=== PATIENT | male | born 1975 | race Caucasian/White ===

== ENCOUNTER 2020-04-04 13:41 | Emergency (ER) | payer MEDICAID ==
[2020-04-04 19:07] LABS: Basophils % 0.1 % (0-1.3); Lymphocytes % 35.2 % (15.3-44.8); MPV 8.2 fL (7.6-11.3); RBC Red Blood Cell Count 4.81 M/uL (4.33-5.43)
[2020-04-04 19:30] LABS: Protime INR 0.93
[2020-04-04 19:35] LABS: ALT/SGPT 25 U/L (12-78); AST/SGOT 13 U/L (15-37); Albumin 3.4 g/dL (3.4-5.0); Alkaline Phosphatase 110 U/L (45-117); BUN Blood Urea Nitrogen 10 mg/dL (7-18); Bicarbonate 27 mmol/L (21-32); Bilirubin Direct < 0.1 mg/dL (0-0.2); Bilirubin Total 0.2 mg/dL (0.2-1.0); Glucose Level 262 mg/dL (74-106); Magnesium 2.1 mg/dL (1.8-2.4); NT PRO-BNP 9 pg/mL (<125); Potassium 3.7 mmol/L (3.5-5.1); Protein, Total 7.2 g/dL (6.4-8.2); Sodium Level 135 mmol/L (136-145); Troponin (Emerg Dept Use Only) < 0.02 ng/mL (0.0-0.045)
[2020-04-04] MEDS ORDERED: NA CHLORIDE 0.9% 1,000 ML ONE (19:44)
--- NOTE | 2020-04-04 19:56 | RAD REPORT ---
EXAM DESCRIPTION: RAD - Chest Single View - 04/04/2020 7:15 pm CLINICAL HISTORY: syncope, hypertension COMPARISON: None TECHNIQUE: AP portable chest image was obtained 04/04/2020 7:15 pm . FINDINGS: Lung volumes are low. No peripheral mass or consolidation. No significant failure or volum e overload. Minimal interstitial edema or infiltrate could be masked by the exam limitations. Heart and vasculature are normal. No measurable pleural effusion and no pneumothorax. No acute bony abnormality seen. No acute aortic findings suspected. IMPRESSION: No acute focal lung parenchymal process. Low lung volumes accentuate the vasculature and central lung markings potentially masking minimal int erstitial edema or infiltrate.
--- NOTE | 2020-04-04 20:37 | EDPHYS ---
Physician Documentation [facility] Name: Bryn Camargo Age: 44 yrs Sex: Male : 1975 Arrival Date: 04/04/2020 Time: 13:44 Bed 19 Private MD: ED Physician Valentin Aguilera HPI: 04/04 19:32 This 44 yrs old Male presents to ER via EMS with complaints of Near Syncope, jmm High Blood Sugar. 19:32 The patient has experienced syncope. Onset: The symptoms/episode began/occurred 1 jmm month(s) ago. Duration: The patient has had multiple episodes. Associated injury: The patient did not suffer any apparent associated injury. Associated signs and symptoms: Pertinent positives: chest pain. Current symptoms: Currently, the patient is not experiencing any symptoms. The patient has not experienced similar symptoms in the past. Historical: - Allergies: 13:49 No Known Allergies; iw - PSHx: 13:49 Appendectomy; left testicle; iw - Immunization history:: Adult Immunizations unknown. - Social history:: Smoking status: unknown. ROS: 19:32 Constitutional: Negative for fever, chills, and weight loss. jmm 19:32 Cardiovascular: Positive for chest pain. 19:32 Neuro: Positive for syncope. 19:32 All other systems are negative. Exam: 19:32 Constitutional: This is a well developed, well nourished patient who is awake, alert, jmm and in no acute distress. Head/Face: atraumatic. Eyes: EOMI, no conjunctival erythema appreciated ENT: Moist Mucus Membranes Neck: Trachea midline, Supple Chest/axilla: Normal chest wall appearance and motion. Cardiovascular: Regular rate and rhythm. No edema appreciated Respiratory: Normal respirations, no respiratory distress appreciated Abdomen/GI: Non distended, soft Back: Normal ROM Skin: General appearance color normal MS/ Extremity: Moves all extremities, no obvious deformities appreciated, no edema noted to the lower extremities Neuro: Awake and alert, normal gait Psych: Behavior is normal, Mood is normal, Patient is cooperative and pleasant 19:32 ECG was reviewed by the Attending Physician. Vital Signs: 14:00 BP 121 / 72; Pulse 86; Resp 18 S; Temp 97.4(TE); Pulse Ox 99% on R/A; ca1 MDM: 18:46 Patient medically screened. [facility] 20:31 Data reviewed: vital signs, nurses notes. Counseling: I had a detailed discussion with linda the patient and/or guardian regarding: the historical points, exam findings, and any diagnostic results supporting the discharge/admit diagnosis, lab results, radiology results, the need for outpatient follow up, to return to the emergency department if symptoms worsen or persist or if there are any questions or concerns that arise at home. ED course: Patient is alert and non toxic in appearance in the ED. No signs of resp distress. I do not suspect DKA, AMI, PE. [place] syncope negative. Patient advised to follow up with pcp and otherwise given strict return precautions. Patient understood and agrees with the plan of care. . 04/04 14:09 Order name: Glucose; Complete Time: 18:46 [facility] 04/04 14:17 Order name: Glucose, Ancillary Testing; Complete Time: 18:46 [facility] 04/04 18:47 Order name: Basic Metabolic Panel; Complete Time: 19:41 [facility] 04/04 18:47 Order name: CBC with Diff; Complete Time: 19:31 [facility] 04/04 18:47 Order name: LFT's; Complete Time: 19:41 [facility] 04/04 18:47 Order name: Magnesium; Complete Time: 19:41 [facility] 04/04 18:47 Order name: NT PRO-BNP; Complete Time: 19:41 [facility] 04/04 18:47 Order name: PT-INR; Complete Time: 19:31 [facility] 04/04 18:47 Order name: Troponin (emerg Dept Use Only); Complete Time: 19:41 [facility] 04/04 19:21 Order name: D-Dimer [facility] 04/04 19:22 Order name: D-Dimer; Complete Time: 19:43 [facility] 04/04 19:24 Order name: Glucose, Ancillary Testing; Complete Time: 19:31 [facility] 04/04 21:02 Order name: Glucose, Ancillary Testing [facility] 04/04 18:47 Order name: XRAY Chest (1 view); Complete Time: 19:57 [facility] 04/04 18:47 Order name: EKG; Complete Time: 18:48 [facility] 04/04 18:47 Order name: Cardiac monitoring; Complete Time: 19:37 [facility] 04/04 18:47 Order name: EKG - Nurse/Tech; Complete Time: 19:36 [facility] 04/04 18:47 Order name: IV Saline Lock; Complete Time: 19:36 [facility] 04/04 18:47 Order name: Labs collected and sent; Complete Time: 19:36 [facility] 04/04 18:47 Order name: O2 Per Protocol; Complete Time: 19:37 [facility] 04/04 18:47 Order name: O2 Sat Monitoring; Complete Time: 19:37 jmm EC:32 Rate is 85 beats/min. Rhythm is regular. QRS [place] is Normal. GA interval is normal. QRS jmm interval is normal. QT interval is normal. No Q waves. T waves are Normal. No ST changes noted. Reviewed by me. Administered Medications: 19:14 Not Given (Physician Discretion): Insulin Regular Human 10 units IVP once bp 19:25 Drug: NS 0.9% 2000 ml Route: IV; Rate: 1 bolus; Site: left antecubital; ll2 Disposition: 04/05 08:50 Co-signature as Attending Physician, Valentin Aguilera MD. rn Disposition: 04/04/20 20:36 Discharged to Home. Impression: Hyperglycemia, unspecified, Chest pain, unspecified. - Condition is Stable. - Discharge Instructions: Nonspecific Chest Pain, Hyperglycemia. - Medication Reconciliation Form, Thank You Letter, Antibiotic Education, Prescription Opioid Use form. - Follow up: Private Physician; When: 2 - 3 days; Reason: Recheck today's complaints, Continuance of care, Re-evaluation by your physician. Signatures: Dispatcher [employer] EDMS Catalina Conley RN RN dm5 Cirilo Loo PA PA [facility] Alicia Padron, RN Valentin Garcia MD MD rn Peltier, Brian RN Brianna Bender, RN RN ll2 Corrections: (The following items were deleted from the chart) 04/04 21:30 20:36 04/04/2020 20:36 Discharged to Home. Impression: Hyperglycemia, unspecified; dm5 Chest pain, unspecified. Condition is Stable. Forms are Medication Reconciliation Form, Thank You Letter, Antibiotic Education, Prescription Opioid Use. Follow up: Private Physician; When: 2 - 3 days; Reason: Recheck today's complaints, Continuance of care, Re-evaluation by your physician. [facility]
--- NOTE | 2020-04-04 20:37 | ER ---
Nurse's Notes [facility] Name: Bryn Camargo Age: 44 yrs Sex: Male : 1975 Arrival Date: 04/04/2020 Time: 13:44 Bed 19 Private MD: Diagnosis: Hyperglycemia, unspecified;Chest pain, unspecified Presentation: 04/04 13:46 Chief complaint: EMS states: pt has been out of his meds for a month, is diabetic, BS iw was reading "high" , has been having syncopal episodes X 1 month. Coronavirus screen: At this time, the client does not indicate any symptoms associated with coronavirus-19. Ebola Screen: Patient negative for fever greater than or equal to 101.5 degrees Fahrenheit, and additional compatible Ebola Virus Disease symptoms Patient denies exposure to infectious person. Patient denies travel to an Ebola-affected area in the 21 days before illness onset. No symptoms or risks identified at this time. Initial Sepsis Screen: Does the patient meet any 2 criteria? No. Patient's initial sepsis screen is negative. Does the patient have a suspected source of infection? No. Patient's initial sepsis screen is negative. Risk Assessment: Do you want to hurt yourself or someone else? Patient reports no desire to harm self or others. Onset of symptoms was February 2020. 13:46 Method Of Arrival: EMS: [facility] iw 13:46 Acuity: FLETCHER 3 iw Triage Assessment: 18:45 General: Appears in no apparent distress. comfortable, Behavior is calm, cooperative, bp appropriate for age, RECD PT AMBULATORY FROM TRIAGE. Pain: Denies pain. EENT: No deficits noted. Neuro: Reports LIGHT-HEADED. Cardiovascular: No deficits noted. Respiratory: No deficits noted. GI: No signs and/or symptoms were reported involving the gastrointestinal system. : No signs and/or symptoms were reported regarding the genitourinary system. Derm: No deficits noted. Musculoskeletal: No deficits noted. Historical: - Allergies: 13:49 No Known Allergies; iw - PSHx: 13:49 Appendectomy; left testicle; iw - Immunization history:: Adult Immunizations unknown. - Social history:: Smoking status: unknown. Screenin:45 Abuse screen: Denies threats or abuse. Denies injuries from another. Nutritional bp screening: No deficits noted. Tuberculosis screening: No symptoms or risk factors identified. Fall Risk None identified. Assessment: 18:45 General: SEE TRIAGE NOTE. bp 19:22 Reassessment: Patient and/or family updated on plan of care and expected duration. Pain ll2 level reassessed. Patient is alert, oriented x 3, equal unlabored respirations, skin warm/dry/pink. Vital Signs: 14:00 BP 121 / 72; Pulse 86; Resp 18 S; Temp 97.4(TE); Pulse Ox 99% on R/A; ca1 ED Course: 13:44 Patient arrived in ED. iw 13:48 Triage completed. 13:48 Arm band placed on. iw 14:26 Inserted saline lock: 20 gauge in right antecubital area, using aseptic technique. 4 Blood collected. 14:26 Glucose Sent. [facility] 18:44 Cirilo Loo PA is PHCP. [facility] 18:44 Valentin Aguilera MD is Attending Physician. [facility] 18:45 Christ Sosa, GARCIA is Primary Nurse. bp 18:45 Patient has correct armband on for positive identification. Bed in low position. Call bp light in reach. Side rails up X2. 19:16 XRAY Chest (1 view) In Process Unspecified. EDMS 19:36 D-Dimer Sent. ll2 Administered Medications: 19:14 Not Given (Physician Discretion): Insulin Regular Human 10 units IVP once bp 19:25 Drug: NS 0.9% 2000 ml Route: IV; Rate: 1 bolus; Site: left antecubital; ll2 Outcome: 20:[address] ordered [address] . [facility] 21:30 Patient left the ED. dm5 Signatures: Dispatcher [employer] EDMS Catalina Conley, RN RN dmCirilo Velasquez PA PA [facility] Alicia Padron RN RN Christ Sosa, RN RN bp Barbie Maya RN RN [facility] Jakob Kim [facility] Brianna Lagos RN RN ll2
[2020-04-04 21:45] VITALS: BP 121/72; TEMP 97.4; O2SAT 99
== END 2020-04-04 21:30 | disposition home or self-care (01) ==
LOC: ER 13:41
DX: R73.9 Hyperglycemia, unspecified (principal); R07.9 Chest pain, unspecified
CPT/HCPCS: 93005; 85025; 80048; 36415; 83735; 82947 ×4; 85610; 85379; 80076; 84484; 83880; 71045; J7030; 99284

== ENCOUNTER 2020-04-27 19:18 | Observation (INO) | payer MEDICAID ==
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
--- OUTSIDE RECORDS SUMMARY | 2020-04-27 19:21 | XMS REPORT | Clinical Summary ---
:1975 Author Organization [facility] Address [address] [place] [address] Care Team Providers Name Role Phone Asked, No Pcp Primary Care Provider Unavailable Allergies No Known Active Allergies Medications Medication Sig Dispensed Refills Start Date End Date Status LITHIUM ASPARTATE Take by 0 Ac tive ORAL mouth. insulin NPH Inject 12 0 04/13/2016 Active (HumuLIN-N) 100 units under unit/mL injection the skin every morning and inject 6 units every evening, insulin Inject under 0 04/13/2016 Active syringe-needle the skin. U-100 0.5 mL 30 gauge x 5/16" syringe lisinopriL Take 1 tablet 30 tablet 0 05/30/2019 Acti ve (PRINIVIL) 5 mg (5 mg total) tablet by mouth daily. metFORMIN 500 mg. 0 09/20/2019 Active (GLUCOPHAGE) 500 mg tablet glipiZIDE 2.5 mg. 0 09/20/2019 Active (GLUCOTROL) 2.5 MG 24 hr tablet fluphenazine Inject 12.5 0 Disco ntinued decanoate mg into the 0 (PROLIXIN) 25 shoulder, mg/mL injection thigh, or buttocks. lisinopriL 0 10/17/2017 Disconti nued (PRINIVIL) 5 mg 0 (Reo rder) tablet metFORMIN Take 500 mg 0 07/12/2018 Discont inued (GLUCOPHAGE) 500 by mouth. 0 (Re order) mg tablet risperiDONE Take 0.5 mg 0 08/20/2017 Disco ntinued (RisperDAL) 1 MG by mouth. 0 (Re order) tablet risperiDONE Take 1 tablet 30 tablet 0 05/30/2019 Dis continued (RisperDAL) 1 MG (1 mg total) 0 (Reorder) tablet by mouth daily. metFORMIN Take 1 tablet 28 tablet 0 01/01/2020 Disco ntinued (GLUCOPHAGE) 500 (500 mg 0 (Re order) mg tablet total) by mouth 2 (two) times a day with meals for 14 days. risperiDONE Take 0.5 7 tablet 0 01/01/2020 Discont inued (RisperDAL) 1 MG tablets (0.5 0 (Reorder) tablet mg total) by mouth nightly for 14 days. divalproex Take 1 tablet 28 tablet 0 01/01/2020 Expi red (Depakote ER) 500 (500 mg 0 MG 24 hr tablet total) by mouth 2 (two) times a day for 14 days. metFORMIN Take 1 tablet 28 tablet 0 01/15/2020 Expir ed (GLUCOPHAGE) 500 (500 mg 0 mg tablet total) by mouth 2 (two) times a day with meals for 14 days. risperiDONE Take 0.5 7 tablet 0 01/15/2020 Discont inued (RisperDAL) 1 MG tablets (0.5 0 (Reorder) tablet mg total) by mouth nightly for 14 days. risperiDONE Take 1 tablet 7 tablet 0 01/16/2020 Exp ired (RisperDAL) 0.5 MG (0.5 mg 0 tablet total) by mouth nightly for 7 days. haloperidoL Take 1 tablet 28 tablet 0 01/23/2020 Exp ired (HALDOL) 2 MG (2 mg total) 0 tablet by mouth 2 (two) times a day for 14 days. 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 Encounters Date Type Specialty Care Team Description 03/07/2020 Emergency Emergency Medicine Grant Ferraro Hy perglycemia (Primary Dx); Dehydration 03/07/2020 Travel 01/23/2020 Emergency Emergency Medicine Rosariooa, Hyperglyc emia (Primary Dx); Jose A Ott MD Paranoia ([facility]) 01/23/2020 Travel 01/16/2020 Emergency Emergency Medicine Rakel Monk, DO Par anoid schizophrenia ([facility]) (Primary Dx); Auditory halluc ination; History of medi cation noncompliance; Uncontrolled ty pe 2 diabetes mellitus with hyperglycemia (HCC) 01/15/2020 Emergency Emergency Medicine Grant Ferraro Hy perglycemia (Primary Dx); Dehydration 01/15/2020 Travel 01/01/2020 Emergency Emergency Medicine Diogenes Balbuena, Acute h yperglycemia (Primary Dx); Yuniel Correa MD Medication refill; Hallucinations 01/01/2020 Travel 10/10/2019 Travel 10/09/2019 - Emergency Emergency Medicine Eric Heck-Enrique A gitation (Primary Dx); 10/10/2019 MD Torres Essential hyper tension; Type 2 diabetes mellitus with hyperglycemia, unspecified whether terminal makeup operator insulin use (HCC) 06/15/2019 - Emergency Emergency Medicine Arnav Tanner S uicidal ideation (Primary Dx); 06/16/2019 MD Hallucination 05/31/2019 Emergency Emergency Medicine Brannon, Hallucina tions (Primary Jose A Ott MD Dx) 05/29/2019 - Emergency Emergency Medicine Jaren Yoder, Morteza gitation (Primary Dx); 05/30/2019 PROP SETTER Medication refill; Todd Norwoodre suha, unspecified type (HCC) MD Kip after 04/27/2019 Surgical History Surgery Date Site/Laterality Comments ABDOMINAL SURGERY Medical History Medical History Date Comments Schizophrenia (HCC) self reported. Does not see a psychiatrist and cannot list any medications Diabetes mellitus (HCC) Substance abuse (HCC) Depression Suicidal ideation Social History Tobacco Use Types Packs/Day Years Used Date Current Some Day Smoker Cigarettes 2 Smokeless Tobacco: Never Used Tobacco Cessation: Ready to Quit: No Alcohol Use Drinks/Week oz/Week Comments Yes Financial Resource Strain Answer Date Recorded How hard is it for you to pay for the very basics like food, Very hard 03/25/2018 housing, medical care, and heating? Transportation Needs Answer Date Recorded In the past 12 months, has lack of transportation kept you f rom Yes 03/25/2018 medical appointments or from getting medications? In the past 12 months, has lack of transportation kept you f rom Yes 03/25/2018 meetings, work, or getting things needed for daily living? Sex Assigned at Date Recorded Not on file Job Start Date Occupation Industry Not on file Not on file Not on file Last Filed Vital Signs Vital Sign Reading Time Taken Comments Blood Pressure 120/70 03/07/2020 10:30 PM [employer] Pulse 88 03/07/2020 10:30 PM [employer] Temperature 37 C (98.6 F) 03/07/2020 8:33 PM [employer] Respiratory Rate 21 03/07/2020 10:30 PM [employer] Oxygen Saturation 100% 03/07/2020 10:30 PM [employer] Inhaled Oxygen Concentration - - Weight 81.2 kg (179 lb) 03/07/2020 8:33 PM [employer] Height 162.6 cm (5' 4") 03/07/2020 8:33 PM [employer] Body Mass Index 30.73 03/07/2020 8:33 PM [employer] Plan of Treatment Health Maintenance Due Date Last Done Comments DIABETES: RETINAL EYE EXAM 10/04/1985 DIABETIC FOOT EXAM 10/04/1985 URINE MICROALBUMIN 10/04/1985 COVID-19 VACCINE (1 of 2) 1991 INFLUENZA VACCINE 11/08/2019 Procedures Procedure Name Priority Date/Time Associated Comments Diagnosis POC GLUCOSE Routine 03/07/2020 10:29 Results for this PM [employer] procedure are i n the results section. XR CHEST 1 VW PORTABLE STAT 03/07/2020 9:15 R esults for this PM [employer] procedure are i n the results section. ESTIMATED GFR STAT 03/07/2020 8:40 Results fo r this PM [employer] procedure are i n the results section. CREATINE KINASE, TOTAL STAT 03/07/2020 8:40 R esults for this (CPK) PM [employer] procedure are i n the results section. B NATRIURETIC PEPTIDE STAT 03/07/2020 8:40 Re sults for this PM [employer] procedure are i n the results section. TROPONIN STAT 03/07/2020 8:40 Results for this PM [employer] procedure are i n the results section. D-DIMER STAT 03/07/2020 8:40 Results for this PM [employer] procedure are i n the results section. COMPREHENSIVE METABOLIC STAT 03/07/2020 8:40 Results for this PANEL PM [employer] procedure are i n the results section. HC COMPLETE BLD COUNT STAT 03/07/2020 8:40 Re sults for this W/AUTO DIFF PM [employer] procedure are i n the results section. ECG 12-LEAD STAT 03/07/2020 8:38 Results for this PM [employer] procedure are i n the results section. ECG ED PRELIMINARY Routine 03/07/2020 8:24 Resul ts for this INTERPRETATION PM [employer] procedure are in the results section. POC GLUCOSE Routine 01/23/2020 5:09 Results for this AM CDT procedure are i n the results section. XR CHEST 1 VW PORTABLE STAT 01/23/2020 1:37 R esults for this AM CDT procedure are i n the results section. ESTIMATED GFR STAT 01/23/2020 12:55 Results fo r this AM CDT procedure are i n the results section. SALICYLATE LEVEL STAT 01/23/2020 12:55 Results for this AM CDT procedure are i n the results section. ACETAMINOPHEN LEVEL STAT 01/23/2020 12:55 Resu lts for this AM CDT procedure are i n the results section. URINE DRUGS OF ABUSE STAT 01/23/2020 12:55 Res ults for this SCREEN AM CDT procedure are i n the results section. ALCOHOL LEVEL, BLOOD STAT 01/23/2020 12:55 Res ults for this AM CDT procedure are i n the results section. URINALYSIS SCREEN AND STAT 01/23/2020 12:55 Re sults for this MICROSCOPY, WITH REFLEX AM CDT proc edure are in TO CULTURE the results section. THYROID STIMULATING STAT 01/23/2020 12:55 Resu lts for this HORMONE AM CDT procedure are i n the results section. T4, FREE STAT 01/23/2020 12:55 Results for this AM CDT procedure are i n the results section. COMPREHENSIVE METABOLIC STAT 01/23/2020 12:55 Results for this PANEL AM CDT procedure are i n the results section. HC COMPLETE BLD COUNT STAT 01/23/2020 12:55 Re sults for this W/AUTO DIFF AM CDT procedure are i n the results section. CREATINE KINASE, TOTAL STAT 01/23/2020 12:55 R esults for this (CPK) AM CDT procedure are i n the results section. URINE CULTURE STAT 01/23/2020 12:55 Results fo r this AM CDT procedure are i n the results section. ECG 12-LEAD STAT 01/23/2020 12:52 Results for this AM CDT procedure are i n the results section. POC GLUCOSE Routine 01/16/2020 5:04 Results for this AM CDT procedure are i n the results section. ECG ED PRELIMINARY Routine 01/16/2020 3:15 Resul ts for this INTERPRETATION AM CDT procedure are in the results section. ESTIMATED GFR STAT 01/16/2020 3:01 Results fo r this AM CDT procedure are i n the results section. URINALYSIS SCREEN AND STAT 01/16/2020 3:01 Re sults for this MICROSCOPY, WITH REFLEX AM CDT proc edure are in TO CULTURE the results section. URINE DRUGS OF ABUSE STAT 01/16/2020 3:01 Res ults for this SCREEN AM CDT procedure are i n the results section. SALICYLATE LEVEL STAT 01/16/2020 3:01 Results for this AM CDT procedure are i n the results section. ACETAMINOPHEN LEVEL STAT 01/16/2020 3:01 Resu lts for this AM CDT procedure are i n the results section. ALCOHOL LEVEL, BLOOD STAT 01/16/2020 3:01 Res ults for this AM CDT procedure are i n the results section. T4, FREE STAT 01/16/2020 3:01 Results for this AM CDT procedure are i n the results section. THYROID STIMULATING STAT 01/16/2020 3:01 Resu lts for this HORMONE AM CDT procedure are i n the results section. CREATINE KINASE, TOTAL STAT 01/16/2020 3:01 R esults for this (CPK) AM CDT procedure are i n the results section. COMPREHENSIVE METABOLIC STAT 01/16/2020 3:01 Results for this PANEL AM CDT procedure are i n the results section. HC COMPLETE BLD COUNT STAT 01/16/2020 3:01 Re sults for this W/AUTO DIFF AM CDT procedure are i n the results section. URINE CULTURE STAT 01/16/2020 3:01 Results fo r this AM CDT procedure are i n the results section. ECG 12-LEAD STAT 01/16/2020 2:40 Results for this AM CDT procedure are i n the results section. POC GLUCOSE Routine 01/15/2020 3:44 Results for this AM CDT procedure are i n the results section. XR CHEST 1 VW PORTABLE STAT 01/15/2020 2:05 R esults for this AM CDT procedure are i n the results section. ESTIMATED GFR STAT 01/15/2020 1:51 Results fo r this AM CDT procedure are i n the results section. TROPONIN STAT 01/15/2020 1:51 Results for this AM CDT procedure are i n the results section. COMPREHENSIVE METABOLIC STAT 01/15/2020 1:51 Results for this PANEL AM CDT procedure are i n the results section. HC COMPLETE BLD COUNT STAT 01/15/2020 1:51 Re sults for this W/AUTO DIFF AM CDT procedure are i n the results section. ECG 12-LEAD STAT 01/15/2020 1:48 Results for this AM CDT procedure are i n the results section. ECG ED PRELIMINARY Routine 01/15/2020 1:47 Resul ts for this INTERPRETATION AM CDT procedure are in the results section. LITHIUM LEVEL STAT 01/01/2020 2:15 Results fo r this AM CDT procedure are i n the results section. ECG 12-LEAD STAT 01/01/2020 2:07 Results for this AM CDT procedure are i n the results section. ESTIMATED GFR STAT 01/01/2020 2:00 Results fo r this AM CDT procedure are i n the results section. VENOUS BLOOD GAS Routine 01/01/2020 2:00 Results for this AM CDT procedure are i n the results section. SALICYLATE LEVEL STAT 01/01/2020 2:00 Results for this AM CDT procedure are i n the results section. ACETAMINOPHEN LEVEL STAT 01/01/2020 2:00 Resu lts for this AM CDT procedure are i n the results section. ALCOHOL LEVEL, BLOOD STAT 01/01/2020 2:00 Res ults for this AM CDT procedure are i n the results section. THYROID STIMULATING STAT 01/01/2020 2:00 Resu lts for this HORMONE AM CDT procedure are i n the results section. COMPREHENSIVE METABOLIC STAT 01/01/2020 2:00 Results for this PANEL AM CDT procedure are i n the results section. HC COMPLETE BLD COUNT STAT 01/01/2020 2:00 Re sults for this W/AUTO DIFF AM CDT procedure are i n the results section. COVID-19 QUALITATIVE STAT 01/01/2020 2:00 Res ults for this PCR AM CDT procedure are i n the results section. URINE DRUGS OF ABUSE STAT 01/01/2020 1:56 Res ults for this SCREEN AM CDT procedure are i n the results section. URINALYSIS SCREEN AND STAT 01/01/2020 1:56 Re sults for this MICROSCOPY, WITH REFLEX AM CDT proc edure are in TO CULTURE the results section. URINE CULTURE STAT 01/01/2020 1:56 Results fo r this AM CDT procedure are i n the results section. ECG ED PRELIMINARY Routine 01/01/2020 1:55 Resul ts for this INTERPRETATION AM CDT procedure are in the results section. POC GLUCOSE Routine 01/01/2020 1:36 Results for this AM CDT procedure are i n the results section. ECG 12-LEAD STAT 10/10/2019 3:12 Results for this AM CDT procedure are i n the results section. POC GLUCOSE Routine 10/10/2019 3:10 Results for this AM CDT procedure are i n the results section. ECG ED PRELIMINARY Routine 10/10/2019 12:44 Resul ts for this INTERPRETATION AM CDT procedure are in the results section. COVID-19 QUALITATIVE STAT 10/10/2019 12:39 Res ults for this PCR AM CDT procedure are i n the results section. ESTIMATED GFR STAT 10/10/2019 12:03 Results fo r this AM CDT procedure are i n the results section. LITHIUM LEVEL STAT 10/10/2019 12:03 Results fo r this AM CDT procedure are i n the results section. SALICYLATE LEVEL STAT 10/10/2019 12:03 Results for this AM CDT procedure are i n the results section. ACETAMINOPHEN LEVEL STAT 10/10/2019 12:03 Resu lts for this AM CDT procedure are i n the results section. URINE DRUGS OF ABUSE STAT 10/10/2019 12:03 Res ults for this SCREEN AM CDT procedure are i n the results section. ALCOHOL LEVEL, BLOOD STAT 10/10/2019 12:03 Res ults for this AM CDT procedure are i n the results section. URINALYSIS SCREEN AND STAT 10/10/2019 12:03 Re sults for this MICROSCOPY, WITH REFLEX AM CDT proc edure are in TO CULTURE the results section. CREATINE KINASE, TOTAL STAT 10/10/2019 12:03 R esults for this (CPK) AM CDT procedure are i n the results section. THYROID STIMULATING STAT 10/10/2019 12:03 Resu lts for this HORMONE AM CDT procedure are i n the results section. T4, FREE STAT 10/10/2019 12:03 Results for this AM CDT procedure are i n the results section. COMPREHENSIVE METABOLIC STAT 10/10/2019 12:03 Results for this PANEL AM CDT procedure are i n the results section. HC COMPLETE BLD COUNT STAT 10/10/2019 12:03 Re sults for this W/AUTO DIFF AM CDT procedure are i n the results section. TROPONIN STAT 10/10/2019 12:03 Results for this AM CDT procedure are i n the results section. URINE CULTURE STAT 10/10/2019 12:03 Results fo r this AM CDT procedure are i n the results section. POC GLUCOSE Routine 06/16/2019 6:41 Results for this AM CDT procedure are i n the results section. POC GLUCOSE Routine 06/16/2019 5:02 Results for this AM CDT procedure are i n the results section. POC GLUCOSE Routine 06/16/2019 3:05 Results for this AM CDT procedure are i n the results section. POC GLUCOSE Routine 06/15/2019 11:24 Results for this PM CDT procedure are i n the results section. ECG ED PRELIMINARY Routine 06/15/2019 10:08 Resul ts for this INTERPRETATION PM CDT procedure are in the results section. SALICYLATE LEVEL STAT 06/15/2019 9:05 Results for this PM CDT procedure are i n the results section. ACETAMINOPHEN LEVEL STAT 06/15/2019 9:05 Resu lts for this PM CDT procedure are i n the results section. ECG 12-LEAD STAT 06/15/2019 8:53 Results for this PM CDT procedure are i n the results section. URINALYSIS SCREEN AND STAT 06/15/2019 8:53 Re sults for this MICROSCOPY, WITH REFLEX PM CDT proc edure are in TO CULTURE the results section. URINE DRUGS OF ABUSE STAT 06/15/2019 8:53 Res ults for this SCREEN PM CDT procedure are i n the results section. URINE CULTURE STAT 06/15/2019 8:53 Results fo r this PM CDT procedure are i n the results section. ESTIMATED GFR STAT 06/15/2019 8:51 Results fo r this PM CDT procedure are i n the results section. THYROID STIMULATING STAT 06/15/2019 8:51 Resu lts for this HORMONE PM CDT procedure are i n the results section. T4, FREE STAT 06/15/2019 8:51 Results for this PM CDT procedure are i n the results section. COMPREHENSIVE METABOLIC STAT 06/15/2019 8:51 Results for this PANEL PM CDT procedure are i n the results section. HC COMPLETE BLD COUNT STAT 06/15/2019 8:51 Re sults for this W/AUTO DIFF PM CDT procedure are i n the results section. ALCOHOL LEVEL, BLOOD STAT 06/15/2019 8:51 Res ults for this PM CDT procedure are i n the results section. CREATINE KINASE, TOTAL STAT 06/15/2019 8:51 R esults for this (CPK) PM CDT procedure are i n the results section. URINE DRUGS OF ABUSE STAT 05/31/2019 2:51 Res ults for this SCREEN AM [employer] procedure are i n the results section. URINALYSIS SCREEN AND STAT 05/31/2019 2:51 Re sults for this MICROSCOPY, WITH REFLEX AM [employer] proc edure are in TO CULTURE the results section. URINE CULTURE STAT 05/31/2019 2:51 Results fo r this AM [employer] procedure are i n the results section. ECG ED PRELIMINARY Routine 05/31/2019 1:54 Resul ts for this INTERPRETATION AM [employer] procedure are in the results section. ESTIMATED GFR STAT 05/31/2019 1:13 Results fo r this AM [employer] procedure are i n the results section. SALICYLATE LEVEL STAT 05/31/2019 1:13 Results for this AM [employer] procedure are i n the results section. ACETAMINOPHEN LEVEL STAT 05/31/2019 1:13 Resu lts for this AM [employer] procedure are i n the results section. ALCOHOL LEVEL, BLOOD STAT 05/31/2019 1:13 Res ults for this AM [employer] procedure are i n the results section. T4, FREE STAT 05/31/2019 1:13 Results for this AM [employer] procedure are i n the results section. THYROID STIMULATING STAT 05/31/2019 1:13 Resu lts for this HORMONE AM [employer] procedure are i n the results section. BASIC METABOLIC PANEL STAT 05/31/2019 1:13 Re sults for this AM [employer] procedure are i n the results section. HC COMPLETE BLD COUNT STAT 05/31/2019 1:13 Re sults for this W/AUTO DIFF AM [employer] procedure are i n the results section. ECG 12-LEAD STAT 05/31/2019 1:04 Results for this AM [employer] procedure are i n the results section. ESTIMATED GFR STAT 05/30/2019 1:20 Results fo r this AM [employer] procedure are i n the results section. URINE DRUGS OF ABUSE STAT 05/30/2019 1:20 Res ults for this SCREEN AM [employer] procedure are i n the results section. SALICYLATE LEVEL STAT 05/30/2019 1:20 Results for this AM [employer] procedure are i n the results section. ALCOHOL LEVEL, BLOOD STAT 05/30/2019 1:20 Res ults for this AM [employer] procedure are i n the results section. ACETAMINOPHEN LEVEL STAT 05/30/2019 1:20 Resu lts for this AM [employer] procedure are i n the results section. URINALYSIS SCREEN AND STAT 05/30/2019 1:20 Re sults for this MICROSCOPY, WITH REFLEX AM [employer] proc edure are in TO CULTURE the results section. COMPREHENSIVE METABOLIC STAT 05/30/2019 1:20 Results for this PANEL AM [employer] procedure are i n the results section. HC COMPLETE BLD COUNT STAT 05/30/2019 1:20 Re sults for this W/AUTO DIFF AM [employer] procedure are i n the results section. URINE CULTURE STAT 05/30/2019 1:20 Results fo r this AM [employer] procedure are i n the results section. CT MAXILLOFACIAL WO STAT 05/30/2019 12:56 Resu lts for this CONTRAST AM [employer] procedure are i n the results section. CT HEAD WO CONTRAST STAT 05/30/2019 12:56 Resu lts for this AM [employer] procedure are i n the results section. after 04/27/2019 Results POC glucose (03/07/2020 10:29 PM [employer])Only the most recent of10 resultswithin the time period is included. Pathologist Sig nature POC glucose 260 (H) 65 - 99 mg/dL [facility] Comment: [facility] Cub Reporter Name: Zo Mccracken Device ID: [id number] Specimen Blood Performing Organization Address City/State/ZIP Code Phon e Number [facility] DEPARTMENT OF PATHOLOGY AND [address] [place] [address] GENOMIC MEDICINE [facility] [address] [place], [place] [address] HOSPITAL XR Chest 1 Vw Portable (03/07/2020 9:15 PM [employer])Only the most recent of3 results within the time period is included. Specimen Narrative Performed At EXAMINATION: XR CHEST 1 VW PORTABLE RADIANT CLINICAL HISTORY: SOB IMPRESSION: There was a poor inspiratory effort. Heart and mediast inum are within normal limits. There is no segmental infiltrate or eff usion. No significant change from 01/23/2020 [facility]-[id number] Procedure Note Interface, Radiology Results Incoming - 03/07/2020 9:42 PM [employer] EXAMINATION: XR CHEST 1 VW PORTABLE CLINICAL HISTORY: SOB IMPRESSION: There was a poor inspiratory effort. Hea rt and mediastinum are within normal limits. There is no segmental infiltrate or effusion. No significant change from 01/23/2020 [facility]-[id number] Performing Organization Address City/State/ZIP Code Phon e Number [facility] [id number] [place] [address] Estimated GFR (03/07/2020 8:40 PM [employer])Only the most recent of9 resultswithin the time period is included. Estimated GFR >=90 mL/min/1.73 [facility] Comment: m2 [place] Catergory Units Interpretation [facility] PITAL G1 >=90 Normal or high G2 60-89 Mildly decreased G3a 45-59 Mildly to moderately decreas ed G3b 30-44 Moderately to severely decre ased G4 15-29 Severely decreased G5 <15 Kidney failure The eGFR was calculated using the Chronic Kidney Disea se Epidemiology Collaboration (CKD-EPI) equation. Interpretation is based on recommendations of the National Kidney Foundation-Kidney Disease Outcomes Enrrique lity Initiative (NKF-KDOQI) published in 2014. Specimen Plasma Performing Organization Address City/State/ZIP Code Phon e Number [facility] DEPARTMENT OF PATHOLOGY AND [address] [place] [address] GENOMIC MEDICINE [facility] [address] [place], [place] [address] HOSPITAL Troponin (03/07/2020 8:40 PM [employer])Only the most recent of3 resultswithin the time period is included. Troponin <0.006 0.000 - 0.040 [facility] Comment: ng/mL [facility] In patients suspected of having a myocardial infarctio n, along with all other appropriate clinical measures and actions includ ing ECG and other diagnostics as appropriate, measure Ultra TnI at 0 hrs and at 3 hrs. Myocardial infarction VERY LIKELY The 0 hr TnI level is > 0.10 ng/mL Myocardial infarction LIKELY The 0 hr TnI level is > 0.04 ng/mL and 3 hr level is i ncreased or decreased by at least 0.020 ng/mL Myocardial infarction VERY UNLIKELY Both the 0 hr and 3 hr TnI levels <= 0.04 ng/mL(within normal limits) OR 0 hr is > 0.04 ng/mL and 3 hr is increased OR decreased by less than 0.020 ng/mL Specimen Plasma Performing Organization Address [facility] Phon e Number [facility] DEPARTMENT OF PATHOLOGY AND [id number] [place] [address] D-dimer (03/07/2020 8:40 PM INVESTIGATION DIVISION SERGEANT) Pathologist [facility] D-dimer <0.27 0.00 - 0.40 [facility] Comment: ug/mL FEU [place] Units are ug/ml Fibrinogen Equivalent Unit. HOSPITAL When combined with low clinical probability, D-dimer r esults of less than 0.5 ug/ml FEU have a good negative pred ictive value in excluding PE or DVT. For D-dimer results greater than 0.5 ug/ml FEU [facility] testing is indicated if PE or DVT is suspected clini kay. Elevated D-dimer results have been reported in DVT, PE , and DIC cases and may indicate the presence of a clot. D-dimer results may be elevated due to old age, pregna ncy, inflammatory diseases, trauma, post-operative states, sepsis, and malignancies. Specimen Blood Performing Organization Address [facility] Phon e Number [facility] DEPARTMENT OF PATHOLOGY AND [address] CBC with platelet and differential (03/07/2020 8:40 PM INVESTIGATION DIVISION SERGEANT)Only the most recent of9 resultswithin the time period is included. Pathologist [facility] nature WBC 9.17 4.50 - 11.00 k/uL [facility] RBC 4.42 4.40 - 6.00 m/uL [facility] HGB 13.9 (L) 14.0 - 18.0 g/dL [facility] HCT 39.2 (L) 41.0 - 51.0 % [facility] MCV 88.7 82.0 - 100.0 fL [facility] MCH 31.4 27.0 - 34.0 pg [facility] MCHC 35.5 31.0 - 37.0 g/dL [facility] RDW - SD 38.9 37.0 - 55.0 fL [facility] MPV 10.3 8.8 - 13.2 fL [facility] Platelet count 271 150 - 400 k/uL [facility] Nucleated RBC 0.00 /100 WBC [facility] Neutrophils 54.2 39.0 - 69.0 % [facility] Lymphocytes 31.6 25.0 - 45.0 % [facility] Monocytes 10.7 (H) 0.0 - 10.0 % [facility] Eosinophils 2.1 0.0 - 5.0 % [facility] Basophils 1.0 0.0 - 1.0 % [facility] Specimen Plasma Performing Organization Address [facility] Phon e Number [facility] DEPARTMENT OF PATHOLOGY AND [address] [place] [address] B natriuretic peptide (03/07/2020 8:40 PM INVESTIGATION DIVISION SERGEANT) Pathologist Sig nature BNP 7 0 - 100 pg/mL [facility] Specimen Blood Performing Organization Address City/[facility] Phon e Number [facility] DEPARTMENT OF PATHOLOGY AND [id number] [place] [address] [place] [address] GENOMIC MEDICINE [address] Creatine kinase, total (CPK) (03/07/2020 8:40 PM INVESTIGATION DIVISION SERGEANT)Only the most recent of5 resultswithin the time period is included. Pathologist Sig nature Creatine kinase 195 39 - 308 U/L [facility] Specimen Plasma Performing Organization Address City/[facility] Phon e Number [facility] DEPARTMENT OF PATHOLOGY AND [address] [place] [address] GENOMIC MEDICINE [facility] [address] [place], [place] [address] [facility] Comprehensive metabolic panel (03/07/2020 8:40 PM INVESTIGATION DIVISION SERGEANT)Only the most recent of8 resultswithin the time period is included. Sodium 126 (L) 135 - 148 [facility] mEq/L [facility] Potassium 3.9 3.5 - 5.0 [facility] mEq/L [facility] Chloride 92 (L) 98 - 112 [facility] mEq/L [facility] CO2 22 (L) 24 - 31 mEq/L [facility] Anion gap 12@ANIO 7 - 15 mEq/L [facility] BUN 11 6 - 20 mg/dL [facility] Creatinine 0.80 0.70 - 1.20 [facility] mg/dL [facility] Glucose 562 (HH) 65 - 99 mg/dL [facility] Comment: [place] Results called to and read b ack by matthew montesinos,ed at 03/07/2020 21:10 by HOSPITAL rj__. Calcium 9.1 8.3 - 10.2 [facility] mg/dL [facility] Protein 7.3 6.3 - 8.3 [facility] Comment: g/dL [facility] [place] 4.6-7.0 g/dL 1 week 4.4-7.6 g/dL 7 months-1year 5.1-7.3 g/dL 1-2 years 5.6-7.5 g/dL >3 years 6.0-8.0 g/dL 18-150 6.3-8.3 g/dL Albumin 4.0 3.5 - 5.0 [facility] g/dL [facility] A/G ratio 1.2 0.7 - 3.8 [facility] Alkaline phosphatase 138 (H) 40 - 129 U/L [facility] AST 9 (L) 10 - 50 U/L [facility] ALT 14 5 - 50 U/L [facility] Total bilirubin 0.2 0.0 - 1.2 [facility] mg/dL [facility] Specimen Plasma Performing Organization Address City/State/ZIP Code Phon e Number [facility] DEPARTMENT OF PATHOLOGY AND [address] [place] [address] GENOMIC MEDICINE [facility] [address] [place], [place] [address] HOSPITAL ECG 12 lead (03/07/2020 8:38 PM INVESTIGATION DIVISION SERGEANT)Only the most recent of8 resultswithin the time period is included. Pathologist Sig nature Ventricular rate 101 [facility] Atrial rate 101 [facility] IL interval 136 [facility] QRSD interval 78 [facility] QT interval 330 [facility] QTC interval 427 [facility] P axis 1 57 [facility] QRS axis 1 61 [facility] T wave axis 22 [facility] EKG impression Sinus [facility] tachycardia-Otherwise normal ECG-In automated comparison with ECG of 23-JAN-2020 00:52,-No significant change was found- Specimen Narrative Performed At This result has an attachment that is no t available. Performing Organization Address City/[facility] Code Phon e Number [facility] MUSE [address] [place] [address] ECG ED Preliminary Interpretation - Not an Order (03/07/2020 8:24 PM INVESTIGATION DIVISION SERGEANT)Only the most recent of7 resultswithin the time period is included. Narrative Performed At Grant Ferraro MD 03/08/2020 11:30 AM ECG ED Preliminary Interpretation - Not an Order Performed by: Grant Ferraro MD Authorized by: Grant Ferraro MD ECG reviewed by ED Physician in the abse nce of a senior clinical data coordinator: yes Interpretation: Interpretation: normal Rate: ECG rate: 101 ECG rate assessment: tachycardic Rhythm: Rhythm: sinus tachycardia Ectopy: Ectopy: none QRS: QRS axis: Normal QRS intervals: Normal Conduction: Conduction: normal ST segments: ST segments: Normal T waves: T waves: normal Urinalysis screen and microscopy, with reflex to culture (01/23/2020 12:55 AM CDT)Only the most recent of7 resultswithin the time period is included. Specimen site Clean catch [facility] Color, UA Straw [facility] Appearance, UA Clear [facility] Specific gravity, UA 1.029 1.001 - 1.035 [facility] pH, UA 5.0 5.0 - 8.5 [facility] Protein, UA Negative Negative [facility] Glucose, UA 3+ (A) Negative [facility] Ketones, UA Negative Negative [facility] Bilirubin, UA Negative Negative [facility] Blood, UA Negative Negative [facility] Nitrite, UA Negative Negative [facility] Urobilinogen, UA Negative <2.0 [facility] Leukocyte esterase, Negative Negative [facility] Epithelial cells, UA Few Few /HPF [facility] WBC, UA None seen 0 - 1 /HPF [facility] RBC, UA 0-5 0 - 5 /HPF [facility] Bacteria, UA None seen None seen [facility] Yeast, UA None seen [facility] Yeast with None seen [facility] pseudohyphae, UA [facility] Specimen Urine Performing Organization Address City/State/[facility] Code Phon e Number [facility] DEPARTMENT OF PATHOLOGY AND [address] [place] [address] GENOMIC MEDICINE [facility] [address] [place], [place] [address] [facility] Urine drugs of abuse screen (01/23/2020 12:55 AM CDT)Only the most recent of7 resultswithin the time period is included. Amphetamine screen, Negative [place] urine [facility] Methamphetamine Negative [place] screen, urine [facility] Barbiturate screen, Negative [place] urine [facility] Benzodiazepine Negative [place] screen, urine [facility] Cocaine screen, urine Negative [facility] Methadone screen, Negative [place] urine [facility] Opiates screen, urine Negative [facility] Phencyclidine screen, NT [facility] urine [facility] Tricyclic screen, Negative [facility] urine [facility] Cannabinoid screen, Negative [facility] urine Comment: SABIANISM CLEAR Drug screen minimum concentration of detectability [facility] Amphetamines 1000 ng/mL Methamphetamines 1000 ng/mL Barbiturates 300 ng/mL Benzodiazepines 300 ng/mL Cocaine 300 ng/mL Methadone 300 ng/mL Opiates 300 ng/mL Phencyclidine 25 ng/mL Cannabinoids 50 ng/mL Tricyclics 1000 ng/mL Negative test results indicates presumptive evidence o f lack of clinically significant drug concentration in this u rine specimen. Positive test results are presumptive evidence of clin ically significant drug concentration in this urine specimen. Testing performed for medical purposes only. Specimen Urine Performing Organization Address [facility] Phon e Number [facility] DEPARTMENT OF PATHOLOGY AND [address] [address] [place] [phone] [place] [id number] [place] [address] Urine culture (01/23/2020 12:55 AM CDT)Only the most recent of7 resultswithin the time period is included. Pathologist Sig nature Urine culture SEE COMMENTComment: [facility] Bacteriuria screen [facility] negative. Specimen Urine Performing Organization Address [facility] Phon e Number [facility] DEPARTMENT OF PATHOLOGY AND [address] [place] [address] Kenji Day [place], [place] [phone] [place] [phone] [place] [address] Thyroid stimulating hormone (01/23/2020 12:55 AM CDT)Only the most recent of6 resultswithin the time period is included. Pathologist Sig nature TSH 2.65 0.27 - 4.20 uIU/mL [facility] Specimen Blood Performing Organization Address [facility] Phon e Number [facility] DEPARTMENT OF PATHOLOGY AND [address] [address] [place], [place] [phone] [place] [phone] [place] [address] T4, free (01/23/2020 12:55 AM CDT)Only the most recent of5 resultswithin the time period is included. Pathologist Sig nature T4, free 1.18 0.90 - 1.70 ng/dL [facility] Specimen Blood Performing Organization Address [facility] Phon e Number [facility] DEPARTMENT OF PATHOLOGY AND [address] [address] [place], [place] [phone] [place] [phone] [place] [address] Alcohol level, blood (01/23/2020 12:55 AM CDT)Only the most recent of7 results within the time period is included. Alcohol None Detected mg/dL [facility] Comment: [place] Normal None Detected HOSPITAL Legal Intoxication in [place] 80 mg/dL (0.08%) - Whole Blood Toxic Concentration 200 mg/dL (0.2%) Potentially Fatal 350 - 500 mg/dL (0. 35 - 0.5%) Alcohol percent None Detected % [facility] Specimen Blood Performing Organization Address [facility] Phon e Number [facility] DEPARTMENT OF PATHOLOGY AND [address] [place] [address] Acetaminophen level (01/23/2020 12:55 AM CDT)Only the most recent of7 results within the time period is included. Acetaminophen level <5.0 (A) 10.0 - 30.0 [place] Comment: ug/mL [facility] Therapeutic 1 0-30 ug/mL [facility] Possible Toxicity 150- 200 ug/mL Probable Toxicity >200 ug/mL Specimen Blood Performing Organization Address [facility] Phon e Number [facility] DEPARTMENT OF PATHOLOGY AND [address] [place] [address]. John [place], [place] [phone] [place] [address] [address] Salicylate level (01/23/2020 12:55 AM CDT)Only the most recent of7 resultswithin the time period is included. Pathologist Sig nature Salicylate <3.0 3.0 - 30.0 mg/dL [facility] Specimen Blood Performing Organization Address [facility] Phon e Number [facility] DEPARTMENT OF PATHOLOGY AND [address] [place], [place] [phone] [place] [address] [address] Brooten level (01/01/2020 2:15 AM CDT)Only the most recent of2 resultswithin the time period is included. Pathologist Sig nature Brooten <0.20 (A) 0.60 - 1.20 mmol/L [facility] Specimen Serum Performing Organization Address [facility] Phon e Number [facility] DEPARTMENT OF PATHOLOGY AND [address] [place] [address]. [place] [address] [facility] [address] COVID-19 qualitative PCR (01/01/2020 2:00 AM CDT)Only the most recent of2 resultswithin the time period is included. Interpretation Negative results do not prec lude 2019-nCoV infection and should not be used as the sole basis for treatment or other patient management decisions. Negative results must be combined with clinical observations, patient history, and epidemiological [facility] information. [facility] COVID-19 qualitative Not-Detected Not-Detecte [place] PCR result d [facility] COVID-19 qualitative See link below for [facility] PCR PDF Lab SABIANISM ReportComment: Case HOSPITAL Number: [id number] Specimen Nasal swab Performing Organization Address [facility] Phon e Number [facility] DEPARTMENT OF PATHOLOGY AND [address] [place], [place] [address] [address] [facility] Venous blood gas (01/01/2020 2:00 AM CDT) Pathologist Sig nature pH, venous 7.46 (H) 7.32 - 7.42 [facility] pCO2, venous 36 (L) 45 - 51 mmHg [facility] pO2, venous 49 (H) 25 - 40 mmHg [facility] Base excess, venous 2 -2 - 2 meq/L [facility] O2 saturation, 92 (H) 40 - 70 % [facility] Bicarbonate, venous 25.7 21.0 - 28.0 [facility] mmol/L [facility] FiO2, inspired O2% Unknown % [facility] Specimen Blood Performing Organization Address City/[facility] Phon e Number [facility] DEPARTMENT OF PATHOLOGY AND [address] [place] [address] [facility] [address] Basic metabolic panel (05/31/2019 1:13 AM INVESTIGATION DIVISION SERGEANT) Pathologist Sig nature Sodium 135 135 - 148 mEq/L [facility] Potassium 4.2 3.5 - 5.0 mEq/L [facility] Chloride 97 (L) 98 - 112 mEq/L [facility] CO2 25 24 - 31 mEq/L [facility] Anion gap 13@ANIO 7 - 15 mEq/L [facility] BUN 13 6 - 20 mg/dL [facility] Creatinine 0.70 0.70 - 1.20 mg/dL [facility] Glucose 206 (H) 65 - 99 mg/dL [facility] Calcium 9.6 8.3 - 10.2 mg/dL [facility] Specimen Plasma specimen Performing Organization Address City/State/ZIP Code Phon e Number [facility] DEPARTMENT OF PATHOLOGY AND [address] [place] [address] GENOMIC MEDICINE [facility] [address] [place], [place] [address] [facility] CT Maxillofacial Wo Contrast (05/30/2019 12:56 AM INVESTIGATION DIVISION SERGEANT) Specimen Narrative Performed At Examination: CT MAXILLOFACIAL WO CONTR AST [facility] Clinical History: s p fall left mandibul ar pain Comparison: None. Findings: CT scans are performed using radiation dose reduction techniques. Technical factors are evaluated and adjusted to ensu re appropriate moderation of exposure. Automated dose management te chnology is applied to adjust radiation exposure whi le achieving a diagnostic quality image. CT imaging was performed wit h iterative reconstruction techniques and/or automated exposure co ntrol to reduce radiation dose. CT scan of the face was performed withou t intravenous contrast. No acute fracture or dislocation is seen . The visualized sinuses are clear. Visualized orbits and globes are unremar kable. Visualized soft tissues are within angela l limits. IMPRESSION: 1. No acute abnormality identified in th e face. [facility]-[id number] Procedure Note Interface, Radiology Results Incoming - 05/30/2019 1:08 AM INVESTIGATION DIVISION SERGEANT Examination: CT MAXILLOFACIAL WO CONTRAST Clinical History: s p fall left mandibul ar pain Comparison: None. Findings: CT scans are performed using radiation d ose reduction techniques. Technical factors are evaluated and adjusted to ensure appropriate moderation of exposure. Automated dose management technology is applied to adjust radiation exposure while achie ving a diagnostic quality image. CT imaging was performed with iterative reconstruction techniques and/or automated exposure control to reduce radiation dose. CT scan of the face was performed withou t intravenous contrast. No acute fracture or dislocation is seen . The visualized sinuses are clear. Visualized orbits and globes are unremar kable. Visualized soft tissues are within angela l limits. IMPRESSION: 1. No acute abnormality identified in th e face. [facility]-[id number] Performing Organization Address [facility] Phon e Number [facility] [address] [place] [address] CT Head Wo Contrast (05/30/2019 12:56 AM INVESTIGATION DIVISION SERGEANT) Specimen Narrative Performed At Examination: CT HEAD WO CONTRAST [facility] Clinical History: s p fall Comparison: None. CT scan of the brain was performed witho ut intravenous contrast. CT scans are performed using radiation dose reduction techniques. Technical factors are evaluated and adjusted to ensu re appropriate moderation of exposure. Automated dose management te chnology is applied to adjust radiation exposure whi le achieving a diagnostic quality image. CT imaging was performed w [facility] iterative reconstruction techniques and/or automated exposure co ntrol to reduce radiation dose. No mass effect or midline shift is seen. The ventricles are normal in size. No intracranial hemorrhage is seen. The visualized bony structures shows no acute abnormality. Simon-white junctions are preserved. IMPRESSION: 1. No acute or focal intracranial abnorm ality identified. [facility]-[id number] Procedure Note Interface, Radiology Results Incoming - 05/30/2019 1:03 AM INVESTIGATION DIVISION SERGEANT Examination: CT HEAD WO CONTRAST Clinical History: s p fall Comparison: None. CT scan of the brain was performed witho ut intravenous contrast. CT scans are performed using radiation d ose reduction techniques. Technical factors are evaluated and adjusted to ensure appropriate moderation of exposure. Automated dose management technology is applied to adjust radiation exposure while achie ving a diagnostic quality image. CT imaging wa s performed with iterative reconstruction techniques and/or automated exposure control to reduce radiation dose. No mass effect or midline shift is seen. The ventricles are normal in size. No intracranial hemorrhage is seen. The visualized bony structures shows no acute abnormality. Simon-white junctions are preserved. IMPRESSION: 1. No acute or focal intracranial abnorm ality identified. [facility]-[id number] Performing Organization Address [facility] Phon e Number TANYA [facility] [address] [place] [address] after 04/27/2019 Advance Directives For more information, please contact: [phone] Type Date Recorded Patient Transportation Logistics Internship Explanati on Advance Directives, Living Will 04/26/2017 9:01 AM and Medical Power of Medical Esthetician Advance Directives, Living Will 06/15/2019 9:54 PM and Medical Power of Medical Esthetician
--- OUTSIDE RECORDS SUMMARY | 2020-04-27 19:21 | XMS REPORT | Clinical Summary ---
:1975 Author Organization [facility] Address [address] [place] [address] Care Team Providers Name Role Phone Jayne Primary Care Provider Allergies No Known Allergies Medications Medication Sig Dispensed Refills Start Date End Date Status lisinopril (PRINIVIL,ZESTRIL) 5 MG 0 10/17 Active tablet Active Problems Not on file Social History Tobacco Use Types Packs/Day Years Used Date Current Every Day Smoker Smokeless Tobacco: Never Used Alcohol Use Drinks/Week oz/Week Comments No Sex Assigned at Date Recorded Not on file Last Filed Vital Signs Not on file Plan of Treatment Health Maintenance Due Date Last Done Comments PNEUMOCOCCAL VACCINE 0-64 YRS (1 of 1 - PPSV23) 10/04/1981 DIABETIC EYE EXAM 10/04/1985 URINE MICROALBUMIN 10/04/1985 LIPID PANEL 10/04/2010 HEMOGLOBIN A1C 10/28/2017 INFLUENZA VACCINE (#1) 2019 Results Not on fileafter 04/27/2019 Insurance Payer Benefit Plan / Subscriber ID Effective Dates Phone Addre ss Type Group [place] [id number] 2016-Present
--- OUTSIDE RECORDS SUMMARY | 2020-04-27 19:36 | XMS REPORT | Continuity of Care Document ---
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 08:33:00 Gopi Palomino 350.1.13.10 Missy Rawls 4.2.7.2.686 [place] [id number] 084 2020-03-31 2020-03-31 [facility] 1.2.138.867 [id number] 02:51:00 05:37:00 Vargas Morteza [facility] 350.1.13.10 Clear 4.2.7.2.686 [place] [id number] Hospital 014 ([facility]) 2020-03-17 2020-03-18 [facility] 1.2.670.931 [id number] 22:59:00 03:46:00 [facility] 350.1.13.10 Clear 4.2.7.2.686 [place] [id number] Hospital 014 ([facility]) 2020-03-07 2020-03-07 [facility]64 [id number] [place] 00:00:00 00:00:00 BILL [address] 2020-03-01 2020-03-01 Emergency [facility] 1.2.141.076 [id number] 03:49:00 05:46:00 Riaz [facility] 350.1.13.10 Clear 4.2.7.2.686 [place] [id number] Hospital 014 ([facility]) 2020-02-28 2020-02-29 Emergency Jame aRm [facility] 1.2.8 40.114 [id number] 20:26:00 01:25:00 Jame Ram [facility] 350.1.13.10 Clear 4.2.7.2.686 [place] [id number] Hospital 014 ([facility]) 2020-02-21 2020-02-22 Emergency Vimal [facility] 1.2.385.916 [id number] 19:15:00 02:01:00 Sam Pro [facility] 350.1.13.10 Clear 4.2.7.2.686 [place] [id number] Hospital 014 ([facility]) 2020-02-20 2020-02-21 Emergency Unknown, Attending [facility] 1.2.8 40.114 [id number] 21:59:00 04:04:00 Sam Celis [facility] 350.1.13.10 Clear 4.2.7.2.686 [place] [id number] Hospital 014 ([facility]) 2020-02-11 2020-02-12 Emergency Jame Ram [facility] 1.2.8 40.114 [id number] 20:17:00 14:37:00 Kenji Watson [facility] 350.1.13.10 Clear 4.2.7.2.686 [place] [id number] Hospital 014 ([facility]) 2020-01-29 2020-01-30 Emergency Sam Celis [facility] 1.2.8 40.114 [id number] 23:20:00 09:15:00 Kenji Watson [facility] 350.1.13.10 Clear 4.2.7.2.686 [place] [id number] Hospital 014 ([facility]) 2020-01-24 2020-01-24 Emergency Sam Celis [facility] 1.2.8 40.114 [id number] 01:58:00 10:51:00 [employer] [facility] 350.1.13.10 Clear 4.2.7.2.686 [place] [id number] Hospital 014 ([facility]) 2020-01-23 2020-01-23 Emergency DE GARCÍA, [facility] 064 [id number] [place] 00:00:00 00:00:00 BLAZE 090 Me thodi 2020-01-16 2020-01-16 Emergency SVACH, [facility] 064 [id number] [place] 00:00:00 00:00:00 ABDI [address] 2020-01-15 2020-01-15 Emergency MARCANTEL, [facility] 064 [id number] [place] 00:00:00 00:00:00 BILL [address] 2020-01-07 2020-01-07 Emergency Kenji Watson [facility] 1.2.840.114 [id number] 02:41:00 18:55:00 [facility] 350.1.13.10 Clear 4.2.7.2.686 [place] [id number] Hospital 014 ([facility]) 2020-01-01 2020-01-01 Emergency [place] [id number] [place] 00:00:00 00:00:00 Marietta RIVAS Method i [facility] 2019-12-27 2019-12-27 Emergency Mutendereki [facility] 1.2.840.114 [id number] 12:39:00 13:15:00 , [facility] 350.1.13.10 Clear 4.2.7.2.686 [place] [id number] Hospital 014 ([facility]) 2019-12-04 2019-12-05 Emergency Shoaib, [facility] 1.2.175.835 [id number] 19:40:00 03:27:00 Gertrudis [facility] 350.1.13.10 Clear 4.2.7.2.686 [place] [id number] Hospital 014 ([facility]) 2019-12-02 2019-12-02 Emergency Walter [facility] 1.2.954.007 [id number] 17:51:00 20:28:00 Kenji [facility] 350.1.13.10 Clear 4.2.7.2.686 [place] [id number] Hospital 014 ([facility]) 2019-10-31 2019-11-01 Emergency Walter [facility] 1.2.823.376 [id number] [id number] 20:18:14 02:15:00 Kenji [facility] 350.1.13.10 Clear 4.2.7.2.686 [place] [id number] Hospital 014 ([facility]) 2019-10-17 2019-10-17 Emergency [facility] 1.2.922.774 0904 1845 14:54:43 14:57:00 Health 350.1.13.10 Clear 4.2.7.2.686 [place] [id number] Hospital 014 ([facility]) 2019-10-09 2019-10-10 Emergency CAPO, [facility] [id number] [place] 00:00:00 00:00:00 COMPA 454 [facility] 2019-10-09 2019-10-09 Emergency Shoaib, [facility] 1.2.034.716 [id number] 04:11:17 07:13:00 [facility] 350.1.13.10 Clear 4.2.7.2.686 [place] [id number] [place] [address] ([facility]) 2019-08-25 2019-08-25 Departed [facility] [id number] [facility] 17:25:00 19:40:[address] - [facility] Room [facility] e 2019-08-25 2019-08-25 Departed CHRISTREGINALDO CHRIST [id number] [facility] 01:55:00 03:06:[address] [facility] 2019-07-29 2019-07-30 Departed CHRISTREGINALDO HEWITT [id number] [facility] 20:41:00 04:20:[address] - [facility] Room [facility] 2019-07-24 2019-07-25 Emergency Morrical, TRAU[place] 1.2.840.114 [id number] 17:52:29 00:33:00 Edmundo Suman CENTER 350.1.13.10 4.2.7.2.686 [id number] 014 2019-07-23 2019-07-24 Emergency Banipal [facility] 1.2.862.663 [id number] 23:51:49 03:50:00 Maikel, CENTER 350.1.13.10 [place] 4.2.7.2.686 [id number] 014 2019-07-18 2019-07-19 Emergency Nino, [place] 1.2.840.114 [id number] 22:53:16 02:38:00 Laura Mosquera CENTER 350.1.13.10 4.2.7.2.686 [id number] 014 2019-07-10 2019-07-11 Emergency Vincent, Shinta [facility] 1.2.840. 114 [id number] 17:30:12 07:56:00 Sloane Alonso CENTER 350.1. 13.10 4.2.7.2.686 [id number] 014 2019-07-10 2019-07-10 Emergency Gerson, [place] 1.2.866.960 [id number] [facility] 06:04:43 06:48:00 ShayKing CENTER 350.1.13.10 4.2.7.2.686 [id number] 014 2019-06-21 2019-06-21 Emergency Laura Nino [place] 1.2 .840.114 [id number] 02:54:23 11:00:00 Eleazar Potts CENTER 350.1.13.10 4.2.7.2.686 [id number] 014 2019-06-15 2019-06-16 Emergency REICHL, [facility] 064 [id number] [place] 00:00:00 00:00:00 SIMA 535 Method i 2019-05-31 2019-05-31 Emergency DE GARCÍA, [facility]4 [id number] [place] 00:00:00 00:00:00 BLAZE 625 Me thodi 2019-05-29 2019-05-30 Emergency ALAN, [facility] [id number] [place] 00:00:00 00:00:00 JUANI 957 Method i 2019-05-25 2019-05-25 Emergency Willy Askew T [facility] 1.2.84 0.114 [id number] 01:16:44 12:13:00 [facility] 350.1.13.10 Clear 4.2.7.2.686 [place] [id number] [facility] 014 (CLC) 2019-05-11 2019-05-11 Emergency [facility] 1.2.840.114 [id number] 17:44:49 23:20:00 [facility] 350.1.13.10 Clear 4.2.7.2.686 [place] [id number] Hospital 014 ([facility]) 2019-01-03 2019-01-03 Emergency [facility] [id number] [place] 21:49:56 21:49:56 Health 2018-11-01 2018-11-01 [facility] Gregory [email or web address] 1.2.840.114 [id number] 14:56:39 23:59:00 Encounter Dorita GARCIAS 350.1.13.10 MEDICAL 4.2.7.2.686 [place] [id number] 2017-10-28 2017-10-28 Emergency [facility] [id number] [place] 08:41:18 08:41:18 [facility] 2017-10-20 2017-10-20 Emergency [facility] [id number] [place] 08:09:00 08:09:00 [facility] 2017-10-10 2017-10-10 Emergency [facility] [id number] [place] 01:05:00 01:05:00 [facility] 2017-09-27 2017-09-27 Emergency [facility] [id number] [place] 21:47:00 21:47:00 [facility] 2017-09-26 2017-09-26 Emergency [facility] [id number] [place] 22:17:00 22:17:00 [facility] 2017-09-24 2017-09-24 Outpatient [facility] [id number] [facility] 10:46:12 10:46:12 2017-09-21 2017-09-21 Emergency [facility] [id number] [place] 23:01:00 23:01:00 [facility] 2017-09-20 2017-09-20 Emergency [facility] [id number] [place] 21:20:00 21:20:00 [facility] 2017-09-18 2017-09-18 Emergency [facility] [id number] [place] 03:14:00 03:14:00 [facility] 2017-09-13 2017-09-13 Outpatient [facility] [id number] [facility] 09:45:02 09:45:02 2017-09-13 2017-09-13 Emergency [facility] [id number] [place] 00:01:00 00:01:00 [facility] 2017-09-09 2017-09-09 Emergency [facility] [id number] [place] 22:15:00 22:15:00 [facility] 2017-08-22 2017-08-22 Outpatient [facility] [id number] [place] 00:00:00 00:00:00 [facility] 2017-08-20 2017-08-20 Emergency [facility] [id number] [place] 08:25:08 08:25:08 [facility] 2017-08-18 2017-08-18 Emergency [facility] [id number] [place] 00:11:00 00:11:00 [facility] 2017-08-16 2017-08-16 Emergency [facility] [id number] [place] 19:30:00 19:30:00 [facility] 2017-07-17 2017-07-17 Emergency E AFUWAPE, [facility] [id number] [facility] 20:09:00 20:09:00 LUERIN 2017-06-29 2017-06-29 Emergency [facility] [id number] [place] 00:07:13 00:07:13 [facility] 2017-06-05 2017-06-05 Outpatient [facility] [id number] [place] 00:00:00 00:00:00 [facility] 2017-06-01 2017-06-01 Emergency [facility] MED [id number] [place] 15:16:18 15:16:18 [facility] 2017-05-18 2017-05-18 Outpatient [facility] [id number] [place] 00:00:00 00:00:00 [facility] 2017-05-07 2017-05-07 Emergency [facility] [id number] [place] 22:29:15 22:29:15 [facility] 2017-04-14 2017-04-14 Emergency E AFUWAPE, [facility] [id number] [facility] 15:50:00 15:50:00 MANAVERIN 2017-03-26 2017-03-26 Emergency E KAMLESH, [facility] MED [id number] [facility] 13:48:00 13:48:00 DIDIER 2017-03-25 2017-03-25 Emergency E STEPANIAK, [facility] MED [id number] [facility] 00:06:00 00:06:00 JUANI 2017-03-20 2017-03-20 Emergency E ERIC, [facility] MED [id number] [facility] 12:17:00 12:17:00 AMIR 2017-03-01 2017-03-01 Emergency E LISBET PERES [facility] MED [id number] [facility] 19:18:00 19:18:00 2017-02-28 2017-02-28 Emergency E RAMANA SOARES [facility] MED [id number] [facility] 21:18:00 21:18:00 2017-02-27 2017-02-27 Emergency E CRYSTAL [facility] MED [id number] [facility] 22:19:00 22:19:00 [place] 2017-02-23 2017-02-23 Emergency [facility] [id number] [place] 18:07:28 18:07:28 [facility] 2017-02-22 2017-02-22 Emergency E LISBET PERES [facility] MED [id number] [facility] 08:45:00 08:45:00 2017-02-15 2017-02-15 Emergency C JAMIE, [facility] MED [id number] [facility] 19:57:00 19:57:00 JANIE 2017-01-22 2017-01-22 Emergency [facility] MED [id number] [place] 06:44:35 06:44:35 Health 2017-01-18 2017-01-18 Emergency [facility] [id number] [place] 02:07:00 02:07:00 [facility] 2016-08-24 2016-08-24 Emergency [facility] [id number] [place] 13:58:00 13:58:00 Health Results Test Description Test Time Test Comments Results Result Comments Source COMPREHENSIVE METABOLIC PANEL 2020-04-06 01:26:00 Test Item Value Reference Range Interpretation Comme nts SODIUM (test code = NA) 135 mmol/L 134-147 N POTASSIUM (test code = K) 3.4 mmol/L 3.4-5.0 N CHLORIDE (test code = CL) 104 mmol/L 100-108 N CARBON DIOXIDE (test code = CO2) 26 mmol/L 21-32 N ANION GAP (test code = GAP) 5.0 GAP calc 4.0-15.0 N GLUCOSE (test code = GLU) 296 MG/DL 70-110 H BLOOD UREA NITROGEN (test code = BUN) 8 MG/DL 7-18 N GLOMERULAR FILTRATION RATE (test code = GFR) >=60 max estimate estG FR >60 CREATININE (test code = CREAT) 0.8 MG/DL 0.8-1.3 N TOTAL PROTEIN (test code = PROT) 6.7 G/DL 6.4-8.2 N ALBUMIN (test code = ALB) 3.1 G/DL 3.4-5.0 L GLOBULIN (test code = GLOB) 3.6 GM/dL ALBUMIN/GLOBULIN RATIO (test code = A/G) 0.9 RATIO 1.2-2.2 L CALCIUM (test code = CA) 8.3 MG/DL 8.5-10.1 L BILIRUBIN TOTAL (test code = BILT) 0.10 MG/DL 0.2-1.2 L SGOT/AST (test code = AST) 17 Unit/L 15-37 N SGPT/ALT (test code = ALT) 25 Unit/L 12-78 N ALKALINE PHOSPHATASE TOTAL (test code = ALKP) 121 Unit/L 50-136 N BASIC METABOLIC [id number] 22:32:00 Test Item Value Reference Range Interpretation Comments SODIUM (test code = NA) 136 mmol/L 134-147 N POTASSIUM (test code = 3.4 mmol/L 3.4-5.0 N K) CHLORIDE (test code = 105 mmol/L 100-108 N CL) CARBON DIOXIDE (test 28 mmol/L 21-32 N code = CO2) ANION GAP (test code = 3.0 GAP calc 4.0-15.0 L GAP) GLUCOSE (test code = 302 MG/DL 70-110 H GLU) BLOOD UREA NITROGEN 8 MG/DL 7-18 N (test code = BUN) GLOMERULAR FILTRATION >=60 max estimate >60 RATE (test code = GFR) estGFR CREATININE (test code = 0.8 MG/DL 0.8-1.3 N CREAT) CALCIUM (test code = CA) 8.1 MG/DL 8.5-10.1 L GLUCOSE BEDSIDE [id number] 22:26:00 Test Item Value Reference Range Interpretation Comments GLUCOSE BEDSIDE TESTING (test code 325 mg/dL 70-110 H = GLUBED) UA RFLX MICR CULT IF [id number] 22:24:00 Test Item Value Reference Range Interpretation Comments UA COLOR (test code = COLU) YELLOW discript YEL/STRAW UA APPEARANCE (test code = CLEAR discript CLEAR APPU) UA GLUCOSE DIPSTICK (test 3+ mg/dL NEG code = DGLUU) UA BILIRUBIN DIPSTICK (test NEGATIVE mg/dL NEG code = BILU) UA KETONE DIPSTICK (test NEGATIVE mg/dL NEG code = KETU) UA SPECIFIC GRAVITY (test <=1.005 SG 1.005-1.030 code = SGU) UA BLOOD DIPSTICK (test NEGATIVE mg/DL NEG code = GERSON) UA PH DIPSTICK (test code = 6.5 pH UNITS 5.0-7.0 MITCHEL) UA PROTEIN DIPSTICK (test NEGATIVE mg/dL NEG code = PROU) UA UROBILINIOGEN DIPSTICK 0.2 mg/dL <2.0 (test code = URO) UA NITRITE DIPSTICK (test NEGATIVE SCREEN NEG code = KAL) UA LEUKOCYTE ESTERASE NEGATIVE Leuk/mcL NEGATIVE DIPSTICK (test code = LEUU) Indication for culture: Dysuria/FrequencySOURCE OF URINE: CLEAN CATCHUA RFLX MICR CULT IF [id number] 22:22:00 Test Item Value Reference Range Interpretation Comments UA COLOR (test code = COLU) YELLOW discript YEL/STRAW UA APPEARANCE (test code = CLEAR discript CLEAR APPU) UA GLUCOSE DIPSTICK (test 3+ mg/dL NEG code = DGLUU) UA BILIRUBIN DIPSTICK (test NEGATIVE mg/dL NEG code = BILU) UA KETONE DIPSTICK (test NEGATIVE mg/dL NEG code = KETU) UA SPECIFIC GRAVITY (test <=1.005 SG 1.005-1.030 code = SGU) UA BLOOD DIPSTICK (test NEGATIVE mg/DL NEG code = GERSON) UA PH DIPSTICK (test code = 6.5 pH UNITS 5.0-7.0 MITCHEL) UA PROTEIN DIPSTICK (test NEGATIVE mg/dL NEG code = PROU) UA UROBILINIOGEN DIPSTICK 0.2 mg/dL <2.0 (test code = URO) UA NITRITE DIPSTICK (test NEGATIVE SCREEN NEG code = KAL) UA LEUKOCYTE ESTERASE NEGATIVE Leuk/mcL NEGATIVE DIPSTICK (test code = LEUU) UA CULTURE NEEDED? (test Criteria Culture CHK code = UACULT) Indication for culture: Dysuria/FrequencySOURCE OF URINE: CLEAN CATCHCBC W/AUTO [id number] 22:12:00 Test Item Value Reference Range Interpretation Comments WHITE BLOOD CELL (test code = 8.1 K/mm3 3.5-11.0 N WBC) RED BLOOD CELL (test code = 4.49 M/mm3 4.70-6.10 L RBC) HEMOGLOBIN (test code = HGB) 13.9 G/DL 12.3-15.9 N HEMATOCRIT (test code = HCT) 40.5 % 35.8-46.7 N MEAN CELL VOLUME (test code = 90.2 Fl 86.3-98.9 N MCV) MEAN CELL HGB (test code = MCH) 31.0 pg 28.9-34.4 N MEAN CELL HGB CONCETRATION 34.3 G/DL 32.1-34.5 N (test code = MCHC) RED CELL DISTRIBUTION WIDTH 12.0 SD 11.5-14.5 N (test code = RDW) PLATELET COUNT (test code = 285 K/mm3 150-450 N PLT) MEAN PLATELET VOLUME (test code 9.80 fL 7.0-9.6 H = MPV) NEUTROPHIL % (test code = NT%) 46.8 % 40-76 N IMMATURE GRANULOCYTE % (test 0.4 % 0.0-5.0 N code = IG%) LYMPHOCYTE % (test code = LY%) 40.6 % 20.5-51.1 N MONOCYTE % (test code = MO%) 8.2 % 1.7-9.3 N EOSINOPHIL % (test code = EO%) 3.1 % 0.0-6.0 N BASOPHIL % (test code = BA%) 0.9 % 0.0-2.0 N NUCLEATED RBC % (test code = 0.0 /100WBC% 0.0-1.0 N NRBC%) NEUTROPHIL # (test code = NT#) 3.8 K/mm3 1.8-7.6 N IMMATURE GRANULOCYTE # (test 0.03 x10 3/uL 0.00-0.03 N code = IG#) LYMPHOCYTE # (test code = LY#) 3.3 K/mm3 0.6-3.0 H MONOCYTE # (test code = MO#) 0.7 K/mm3 0.2-1.5 N EOSINOPHIL # (test code = EO#) 0.3 K/mm3 0.0-0.4 N BASOPHIL # (test code = BA#) 0.1 K/mm3 0.0-0.2 N NUCLEATED RBC # (test code = 0.0 K/mm3 0.00-0.01 N NRBC#) MANUAL DIFF REQUIRED (test code NO DIFF/SCN CRITERIA = MDIFF) ECG 12 [id number] 07:07:29 Test Item Value Reference Range Interpretation Comments Ventricular rate (test 101 code = 253) Atrial rate (test code 101 = 255) MA interval (test code 136 = 266) QRSD interval (test 78 code = 260) QT interval (test code 330 = 264) QTC interval (test code 427 = 265) P axis 1 (test code = 57 267) QRS axis 1 (test code = 61 268) T wave axis (test code 22 = 270) EKG impression (test Sinus code = 273) tachycardia-Otherwise normal ECG-In automated comparison with ECG of 23-JAN-2020 00:52,-No significant change was found- [place] YazidiPOC [id number] 22:31:12 Test Item Value Reference Range Interpretation Comments POC glucose (test code 260 mg/dL 65-99 H Opera tor Name: [place] = 05147-0) AllisonDevice I D: [id number] Lab Interpretation Abnormal (test code = 17541-5) [place] [facility] 1 Vw [id number] 21:39:51 Interface, Radiology Results Incoming - 03/07/2020 9:42 PM CSTEXAMINATION: XR CHEST 1 VW PORTABLECLINICAL HISTORY: SOB IMPRESSION:There was a poor inspiratory effort. Heart and mediastinum are within normal limits. There is no segmental infiltrate or effusion. No significant change from [facility]2020[facility]-[id number] [id number] 21:13:38 Test Item Value Reference Range Interpretation Comments D-dimer (test code <0.27 0.00- 0.40 ug/mL FEU U nits are ug/ml = 06921-6) Fibrinogen Equi valent Unit.When combi gold with low clinical pr obability, D-dimer results of less than 0.5 ug/ml FEU have a good negative predictive value in exclud ing PE or DVT. For D-dim er results greater than 0. 5 ug/ml FEU further brenda ting is indicated if PE or DVT is suspected clinically.Elev ated D-dimer results have been reported in DVT , PE, and DIC cases and m ay indicate the pr esence of a clot. D-dimer results may be elevated due to old age, pregna ncy, inflammatory di seases, trauma, post-op erative states, sepsis, and malignancies. [place] Methodist[facility] natriuretic [id number] 21:12:28 Test Item Value Reference Range Interpretation Comments BNP (test code = 12451-6) 7 pg/mL 0-100 [place] UrvashiistComprehensive metabolic [id number] 21:10:51 Test Item Value Reference Range Interpretation Comments Sodium (test code = 126 135- 148 mEq/L L 2951-2) Potassium (test code = 3.9 3.5- 5.0 mEq/L 2823-3) Chloride (test code = 92 98- 112 mEq/L L 5-0) CO2 (test code = 2027-9) 22 24- 31 mEq/L L Anion gap (test code = 12@ANIO 7- 15 mEq/L 43333-5) BUN (test code = 3094-0) 11 mg/dL 6-20 Creatinine (test code = 0.80 mg/dL 0.7-1.2 2160-0) Glucose (test code = 562 mg/dL 65-99 HH Results called to 2345-7) and read back reinaldo parrish at 03/07/2020 21:10 by pierre__. Calcium (test code = 9.1 mg/dL 8.3-10.2 53461-3) Protein (test code = 7.3 g/dL 6.3-8.3 -[place] n 2885-2) 4.6-7.0 g/dL1 week 4.4-7 .6 g/dL7 months-1y ear 5.1-7 .3 g/dL1-2 years 5.6-7 .5 g/dL>3 years 6.0-8 .0 g/kK98-729 6.3-8 .3 g/dL Albumin (test code = 4.0 g/dL 3.5-5 1750-7) A/G ratio (test code = 1.2 0.7-3.8 1759-0) Alkaline phosphatase 138 U/L 40-129 H (test code = 6768-6) AST (test code = 1920-8) 9 U/L 10-50 L ALT (test code = 1742-6) 14 U/L 5-50 Total bilirubin (test 0.2 mg/dL 0-1.2 code = 1974-2) Lab Interpretation (test Abnormal code = 61517-6) [facility] MethodistCreatine kinase, total (CPK)2020-03-07 21:10:51 Test Item Value Reference Range Interpretation Comments Creatine kinase (test code = 2157-6) 195 U/L 39-308 Jay MethodistEstimated [id number] 21:10:51 Test Item Value Reference Range Interpretation Comments Estimated GFR (test >=90 mL/min/1.73 m2 Caterg ory Units code = 5488) InterpretationG 1 >=90 Normal or highG2 60-89 Mildly guarxzqjkC8a 45-59 Mildly to mode rately iroanoklpG4g 30-44 Moderately to severely decreasedG4 15-29 Severely decre asedG5 <15 Kidn ey failureThe eGFR was calculated dali doshi the Chronic Kidney Disease Epidemiology Co llaboration (CKD-EPI) equat ion. Interpretation is based on recommendations of the National Kidney Foundation-Kidn ey Disease Outcomes Qualit y Initiative (NKF-KDOQI) pub lished in 2013. Jay He[id number] 21:10:10 Test Item Value Reference Range Interpretation Comments Troponin (test code = <0.006 0-0.04 [place] [address]-8) having a myocar dial infarction, deanna ng with all other appro priate clinical measur es and actions includi ng ECG and other diagnosti cs as appropriate, me asure Ultra TnI at 0 hrs and at 3 hrs.Myocardia l infarction VERY LIKELYThe 0 hr TnI level is > 0.10 ng/mL --Myocardial in farction LIKELYThe 0 hr TnI level is > 0.04 ng/mL and 3 hr level is increa sed or decreased by at least 0.020 ng/mL -------Ihsan cardial infarct ion VERY UNLIKELYBoth th e 0 hr and 3 hr TnI levels <= 0.04 ng/mL(within no rmal limits) OR 0 hr is > 0.04 ng/mL and 3 hr is increased OR de creased by less than 0.020 ng/mL [facility] with platelet and [id number] 20:47:51 Test Item Value Reference Range Interpretation Comments WBC (test code = 26695-7) 9.17 4.50- 11.00 k/uL RBC (test code = 82206-4) 4.42 m/uL 4.4-6 HGB (test code = 718-7) 13.9 g/dL 14-18 L HCT (test code = 4544-3) 39.2 % 41-51 L MCV (test code = 787-2) 88.7 fL 82-100 MCH (test code = 785-6) 31.4 pg 27-34 MCHC (test code = 786-4) 35.5 g/dL 31-37 RDW - SD (test code = 20232-0) 38.9 fL 37-55 MPV (test code = 83597-7) 10.3 fL 8.8-13.2 Platelet count (test code = 271 150- 400 k/uL 08099-9) Nucleated RBC (test code = 0.00 /100 WBC 01097-2) Neutrophils (test code = 32000-4) 54.2 % 39-69 Lymphocytes (test code = 47170-2) 31.6 % 25-45 Monocytes (test code = 48294-6) 10.7 % 0-10 H Eosinophils (test code = 08957-7) 2.1 % 0-5 Basophils (test code = 21378-9) 1.0 % 0-1 Lab Interpretation (test code = Abnormal 15612-9) [facility] Preliminary Interpretation - Not an [id number] 20:24:12Bill Ferraro MD 03/08/2020 11:30 [facility] Preliminary Interpretation - Not an OrderPerformed by: Bill Ferraro MDAuthorized by: Bill Ferraro MD ECG reviewed by ED Physician in the absence of a filtration plant mechanic: yes Interpretation: Interpretation: normal Rate: ECG rate: 101ECG rate assessment: tachycardic Rhythm: Rhythm: sinus tachycardia Ectopy: Ectopy: none QRS: QRS axis: Normal QRS intervals: NormalConduction: Conduction: normal ST segments: ST segments: NormalT waves: T waves: normalDenton [id number] 02:24:00 Test Item Value Reference Range Interpretation Comments GLUBED (test code = 391 MG/DL 70-110 H Performe 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[place] [facility] [id number] 08:39:00 Test Item Value Reference Range Interpretation Comments GLUBED (test code = 186 MG/DL 70-110 H Performe 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[facility] BASIC METABOLIC [id number] 04:55:00 Test Item Value Reference Range Interpretation Comments SODIUM (test code = NA) 137 mEq/L 134-147 N POTASSIUM (test code = 4.3 mEq/L 3.4-5.0 N K) CHLORIDE (test code = 105 mEq/L 100-108 CL) CARBON DIOXIDE (test 28 mEq/L 21-33 N code = CO2) ANION GAP (test code = 8 0-20 N GAP) GLUCOSE (test code = 186 mg/dL 70-110 H GLU) BLOOD UREA NITROGEN 6 mg/dL 7-18 L (test code = BUN) GLOMERULAR FILTRATION 105.0 95-105 N Units of measure = RATE (test code = GFR) ml/mi n/1.73 m2 CREATININE (test code = 0.8 mg/dL 0.6-1.3 CREAT) CALCIUM (test code = 8.4 mg/dL 8.0-10.5 N CA) CBC W/AUTO [id number] 04:42:00 Test Item Value Reference Range Interpretation Comments WHITE BLOOD CELL (test code = 7.8 x10 3/uL 4.5-11.0 N WBC) RED BLOOD CELL (test code = 4.45 x10 6/uL 4.00-5.60 N RBC) HEMOGLOBIN (test code = HGB) 14.0 g/dL 12.5-16.9 N HEMATOCRIT (test code = HCT) 41.2 % 37.5-50.7 N MEAN CELL VOLUME (test code = 92.6 fL 81.0-99.0 N MCV) MEAN CELL HGB (test code = MCH) 31.5 pg 27.0-33.0 N MEAN CELL HGB CONCETRATION 34.0 g/dL 33.0-37.0 N (test code = MCHC) RED CELL DISTRIBUTION WIDTH CV 12.2 % 11.5-14.5 N (test code = RDW) RED CELL DISTRIBUTION WIDTH SD 41.9 fL 37.0-54.0 N (test code = RDW-SD) PLATELET COUNT (test code = 253 x10 3/uL 150-400 N PLT) MEAN PLATELET VOLUME (test code 9.9 fL 7.0-9.0 H = MPV) NEUTROPHIL % (test code = NT%) 46.8 % 56.0-77.0 L IMMATURE GRANULOCYTE % (test 0.9 % 0.0-2.0 N code = IG%) LYMPHOCYTE % (test code = LY%) 38.2 % 14.0-32.0 H MONOCYTE % (test code = MO%) 10.5 % 4.8-9.0 H EOSINOPHIL % (test code = EO%) 3.0 % 0.3-3.7 N BASOPHIL % (test code = BA%) 0.6 % 0.0-2.0 N NUCLEATED RBC % (test code = 0.0 % 0-0 N NRBC%) NEUTROPHIL # (test code = NT#) 3.64 x10 3/uL 2.0-7.6 N IMMATURE GRANULOCYTE # (test 0.07 x10 3/uL 0.00-0.03 H code = IG#) LYMPHOCYTE # (test code = LY#) 2.97 x10 3/uL 1.0-3.8 N MONOCYTE # (test code = MO#) 0.82 x10 3/uL 0.1-0.8 H EOSINOPHIL # (test code = EO#) 0.23 x10 3/uL 0.0-0.2 H BASOPHIL # (test code = BA#) 0.05 x10 3/uL 0.0-0.2 N NUCLEATED RBC # (test code = 0.00 x10 3/uL 0.0-0.1 N NRBC#) MANUAL DIFF REQUIRED (test code NO = MDIFF) CBC W/AUTO [id number] 04:41:00 Test Item Value Reference Range Interpretation Comments WHITE BLOOD CELL (test code = x10 3/uL 4.5-11.0 WBC) RED BLOOD CELL (test code = RBC) x10 6/uL 4.00-5.60 HEMOGLOBIN (test code = HGB) 14.0 g/dL 12.5-16.9 N HEMATOCRIT (test code = HCT) 41.2 % 37.5-50.7 N MEAN CELL VOLUME (test code = fL 81.0-99.0 MCV) MEAN CELL HGB (test code = MCH) pg 27.0-33.0 MEAN CELL HGB CONCETRATION (test g/dL 33.0-37.0 code = MCHC) RED CELL DISTRIBUTION WIDTH CV % 11.5-14.5 (test code = RDW) PLATELET COUNT (test code = PLT) 253 x10 3/uL 150-400 N NEUTROPHIL % (test code = NT%) % 56.0-77.0 LYMPHOCYTE % (test code = LY%) % 14.0-32.0 NEUTROPHIL # (test code = NT#) x10 3/uL 2.0-7.6 LYMPHOCYTE # (test code = LY#) x10 3/uL 1.0-3.8 MANUAL DIFF REQUIRED (test code = MDIFF) [id number] 01:06:00 Test Item Value Reference Range Interpretation Comments GLUBED (test code = 231 MG/DL 70-110 H Performe 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[facility] BASIC METABOLIC [id number] 21:34:00 Test Item Value Reference Range Interpretation Comments SODIUM (test code = NA) mEq/L 134-147 POTASSIUM (test code = K) mEq/L 3.4-5.0 CHLORIDE (test code = CL) mEq/L 100-108 CARBON DIOXIDE (test code = CO2) mEq/L 21-33 ANION GAP (test code = GAP) 0-20 GLUCOSE (test code = GLU) mg/dL 70-110 BLOOD UREA NITROGEN (test code = BUN) mg/dL 7-18 GLOMERULAR FILTRATION RATE (test code 95-105 = GFR) CREATININE (test code = CREAT) mg/dL 0.6-1.3 CALCIUM (test code = CA) mg/dL 8.0-10.5 HEPATIC FUNCTION [id number] 21:34:00 Test Item Value Reference Range Interpretation Comments TOTAL PROTEIN (test code = PROT) g/dL 6.4-8.2 ALBUMIN (test code = ALB) g/dL 3.4-5.0 BILIRUBIN TOTAL (test code = BILT) mg/dL 0.0-1.0 BILIRUBIN DIRECT (test code = BILD) MG/DL 0.0-0.30 SGOT/AST (test code = AST) IUnit/L 15-37 SGPT/ALT (test code = ALT) IUnit/L 30-65 ALKALINE PHOSPHATASE TOTAL (test IUnit/L 20-125 code = ALKP) [id number] 21:34:00 Test Item Value Reference Range Interpretation Comments TROPONIN-I < 0.006 ng/mL 0.000-0.045 N Negative: <= (test code = 0.045 Positive: TROPI) >= 0.046 Correl ation with serial results, other cardiac markers andclinical findings is nec essary to determine the clinicalsignifi cance of this result. Results using different metho dologies should not be c omparedto one another as john titative results may anayeli y by method. BASIC METABOLIC [id number] 21:34:00 Test Item Value Reference Range Interpretation Comments SODIUM (test code = NA) 126 mEq/L 134-147 L POTASSIUM (test code = 3.6 mEq/L 3.4-5.0 N K) CHLORIDE (test code = 94 mEq/L 100-108 L CL) CARBON DIOXIDE (test 23 mEq/L 21-33 N code = CO2) ANION GAP (test code = 13 0-20 N GAP) GLUCOSE (test code = 446 mg/dL 70-110 H GLU) BLOOD UREA NITROGEN 7 mg/dL 7-18 N (test code = BUN) GLOMERULAR FILTRATION 72.7 95-105 L Units of measure = RATE (test code = GFR) ml/mi n/1.73 m2 CREATININE (test code = 1.1 mg/dL 0.6-1.3 N CREAT) CALCIUM (test code = 9.1 mg/dL 8.0-10.5 N CA) HEPATIC FUNCTION [id number] 21:34:00 Test Item Value Reference Range Interpretation Comments TOTAL PROTEIN (test code = PROT) 7.2 g/dL 6.4-8.2 N ALBUMIN (test code = ALB) 3.60 g/dL 3.4-5.0 N BILIRUBIN TOTAL (test code = 0.20 mg/dL 0.0-1.0 N BILT) BILIRUBIN DIRECT (test code = < 0.10 MG/DL 0.0-0.30 N BILD) BILIRUBIN INDIRECT (test code = 0.10 MG/DL BILIND) SGOT/AST (test code = AST) 22 IUnit/L 15-37 N SGPT/ALT (test code = ALT) 19 IUnit/L 30-65 L ALKALINE PHOSPHATASE TOTAL (test 92 IUnit/L 20-125 N code = ALKP) [id number] 21:34:00 Test Item Value Reference Range Interpretation Comments TROPONIN-I < 0.006 ng/mL 0.000-0.045 N Negative: <= (test code = 0.045 Positive: TROPI) >= 0.046 Correl ation with serial results, other cardiac markers andclinical findings is nec essary to determine the clinicalsignifi cance of this result. Results using different metho dologies should not be c omparedto one another as john titative results may anayeli y by method. CBC W/AUTO [id number] 21:24:00 Test Item Value Reference Range Interpretation Comments WHITE BLOOD CELL (test code = 8.9 x10 3/uL 4.5-11.0 N WBC) RED BLOOD CELL (test code = 4.35 x10 6/uL 4.00-5.60 N RBC) HEMOGLOBIN (test code = HGB) 14.0 g/dL 12.5-16.9 N HEMATOCRIT (test code = HCT) 40.4 % 37.5-50.7 N MEAN CELL VOLUME (test code = 92.9 fL 81.0-99.0 N MCV) MEAN CELL HGB (test code = MCH) 32.2 pg 27.0-33.0 N MEAN CELL HGB CONCETRATION 34.7 g/dL 33.0-37.0 N (test code = MCHC) RED CELL DISTRIBUTION WIDTH CV 12.0 % 11.5-14.5 N (test code = RDW) RED CELL DISTRIBUTION WIDTH SD 41.7 fL 37.0-54.0 N (test code = RDW-SD) PLATELET COUNT (test code = 263 x10 3/uL 150-400 N PLT) MEAN PLATELET VOLUME (test code 10.4 fL 7.0-9.0 H = MPV) NEUTROPHIL % (test code = NT%) 52.8 % 56.0-77.0 L IMMATURE GRANULOCYTE % (test 0.7 % 0.0-2.0 N code = IG%) LYMPHOCYTE % (test code = LY%) 33.7 % 14.0-32.0 H MONOCYTE % (test code = MO%) 10.3 % 4.8-9.0 H EOSINOPHIL % (test code = EO%) 1.9 % 0.3-3.7 N BASOPHIL % (test code = BA%) 0.6 % 0.0-2.0 N NUCLEATED RBC % (test code = 0.0 % 0-0 N NRBC%) NEUTROPHIL # (test code = NT#) 4.71 x10 3/uL 2.0-7.6 N IMMATURE GRANULOCYTE # (test 0.06 x10 3/uL 0.00-0.03 H code = IG#) LYMPHOCYTE # (test code = LY#) 3.00 x10 3/uL 1.0-3.8 N MONOCYTE # (test code = MO#) 0.92 x10 3/uL 0.1-0.8 H EOSINOPHIL # (test code = EO#) 0.17 x10 3/uL 0.0-0.2 N BASOPHIL # (test code = BA#) 0.05 x10 3/uL 0.0-0.2 N NUCLEATED RBC # (test code = 0.00 x10 3/uL 0.0-0.1 N NRBC#) MANUAL DIFF REQUIRED (test code NO = MDIFF) CBC W/AUTO [id number] 21:23:00 Test Item Value Reference Range Interpretation Comments WHITE BLOOD CELL (test code = x10 3/uL 4.5-11.0 WBC) RED BLOOD CELL (test code = RBC) x10 6/uL 4.00-5.60 HEMOGLOBIN (test code = HGB) 14.0 g/dL 12.5-16.9 N HEMATOCRIT (test code = HCT) 40.4 % 37.5-50.7 N MEAN CELL VOLUME (test code = fL 81.0-99.0 MCV) MEAN CELL HGB (test code = MCH) pg 27.0-33.0 MEAN CELL HGB CONCETRATION (test g/dL 33.0-37.0 code = MCHC) RED CELL DISTRIBUTION WIDTH CV % 11.5-14.5 (test code = RDW) PLATELET COUNT (test code = PLT) 263 x10 3/uL 150-400 N NEUTROPHIL % (test code = NT%) % 56.0-77.0 LYMPHOCYTE % (test code = LY%) % 14.0-32.0 NEUTROPHIL # (test code = NT#) x10 3/uL 2.0-7.6 LYMPHOCYTE # (test code = LY#) x10 3/uL 1.0-3.8 MANUAL DIFF REQUIRED (test code = MDIFF) [id number] 21:03:00 Test Item Value Reference Range Interpretation Comments GLUBED (test code = 387 MG/DL 70-110 H Performe 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[facility] [id number] 23:21:00 Test Item Value Reference Range Interpretation Comments GLUBED (test code = 372 MG/DL 70-110 H Performe 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 YES BLOOD UREA NITROGEN 16 mg/dL 7-18 N (test code = BUN) GLOMERULAR FILTRATION 47.2 95-105 L Units of measure = RATE (test code = GFR) ml/mi n/1.73 m2 CREATININE (test code = 1.6 mg/dL 0.6-1.3 H CREAT) CALCIUM (test code = 9.2 mg/dL 8.0-10.5 N CA) [id number] 20:11:00 Test Item Value Reference Range Interpretation Comments TROPONIN-I < 0.006 ng/mL 0.000-0.045 N Negative: <= (test code = 0.045 Positive: TROPI) >= 0.046 Correl ation with serial results, other cardiac markers andclinical findings is nec essary to determine the clinicalsignifi cance of this result. Results using different metho dologies should not be c omparedto one another as john titative results may anayeli y by method. [id number] 20:11:00 Test Item Value Reference Range Interpretation Comments ALCOHOL (test < 3.0 mg/dL <10 N Ethyl Alcohol code = ALC) Interpretation: 100 mg/dL - Legally Intoxicated 300-400 mg/dL - Severely Intoxi cated >400 mg/dL - Potentially Let halThe pharmacological response to blood alcoho l levels mayvary from in dividual to individual. Signs of intoxicationcan be observed at lev els of 50-100 mg/dL. R esults are for Medical pur poses only, and not f or Legal orEmployment ev aluation purposes. CBC W/AUTO [id number] 20:01:00 Test Item Value Reference Range Interpretation Comments WHITE BLOOD CELL (test code = 8.6 x10 3/uL 4.5-11.0 N WBC) RED BLOOD CELL (test code = 4.42 x10 6/uL 4.00-5.60 N RBC) HEMOGLOBIN (test code = HGB) 13.9 g/dL 12.5-16.9 N HEMATOCRIT (test code = HCT) 40.6 % 37.5-50.7 N MEAN CELL VOLUME (test code = 91.9 fL 81.0-99.0 N MCV) MEAN CELL HGB (test code = MCH) 31.4 pg 27.0-33.0 N MEAN CELL HGB CONCETRATION 34.2 g/dL 33.0-37.0 N (test code = MCHC) RED CELL DISTRIBUTION WIDTH CV 12.0 % 11.5-14.5 N (test code = RDW) RED CELL DISTRIBUTION WIDTH SD 40.8 fL 37.0-54.0 N (test code = RDW-SD) PLATELET COUNT (test code = 262 x10 3/uL 150-400 N PLT) MEAN PLATELET VOLUME (test code 10.3 fL 7.0-9.0 H = MPV) NEUTROPHIL % (test code = NT%) 71.0 % 56.0-77.0 N IMMATURE GRANULOCYTE % (test 0.5 % 0.0-2.0 N code = IG%) LYMPHOCYTE % (test code = LY%) 19.9 % 14.0-32.0 N MONOCYTE % (test code = MO%) 7.6 % 4.8-9.0 N EOSINOPHIL % (test code = EO%) 0.5 % 0.3-3.7 N BASOPHIL % (test code = BA%) 0.5 % 0.0-2.0 N NUCLEATED RBC % (test code = 0.0 % 0-0 N NRBC%) NEUTROPHIL # (test code = NT#) 6.13 x10 3/uL 2.0-7.6 N IMMATURE GRANULOCYTE # (test 0.04 x10 3/uL 0.00-0.03 H code = IG#) LYMPHOCYTE # (test code = LY#) 1.72 x10 3/uL 1.0-3.8 N MONOCYTE # (test code = MO#) 0.66 x10 3/uL 0.1-0.8 N EOSINOPHIL # (test code = EO#) 0.04 x10 3/uL 0.0-0.2 N BASOPHIL # (test code = BA#) 0.04 x10 3/uL 0.0-0.2 N NUCLEATED RBC # (test code = 0.00 x10 3/uL 0.0-0.1 N NRBC#) MANUAL DIFF REQUIRED (test code NO = MDIFF) CBC W/AUTO [id number] 19:57:00 Test Item Value Reference Range Interpretation Comments WHITE BLOOD CELL (test code = x10 3/uL 4.5-11.0 WBC) RED BLOOD CELL (test code = RBC) x10 6/uL 4.00-5.60 HEMOGLOBIN (test code = HGB) 13.9 g/dL 12.5-16.9 N HEMATOCRIT (test code = HCT) 40.6 % 37.5-50.7 N MEAN CELL VOLUME (test code = fL 81.0-99.0 MCV) MEAN CELL HGB (test code = MCH) pg 27.0-33.0 MEAN CELL HGB CONCETRATION (test g/dL 33.0-37.0 code = MCHC) RED CELL DISTRIBUTION WIDTH CV % 11.5-14.5 (test code = RDW) PLATELET COUNT (test code = PLT) 262 x10 3/uL 150-400 N NEUTROPHIL % (test code = NT%) % 56.0-77.0 LYMPHOCYTE % (test code = LY%) % 14.0-32.0 NEUTROPHIL # (test code = NT#) x10 3/uL 2.0-7.6 LYMPHOCYTE # (test code = LY#) x10 3/uL 1.0-3.8 MANUAL DIFF REQUIRED (test code = MDIFF) - XR CHEST 1 [id number] 19:39:00 [facility] 1975 Sex: M FAX: Anamika Enamorado [phone] [place]: St: REG Name: BRITT FUENTES [facility] : 1975 Age/S: 44/M [address] [place] [address] Unit #: [id number] Loc: [place] [address] Phys: Anamika Dill Acct: [id number] Dis Date: Status: REG ER PHONE #: [phone] Exam Date: 02/18/20201919 FAX #: [phone] Reason: Cough EXAMS: CPT CODE: [id number] XR CHEST 1 V [id number] Portable single view AP chest INDICATION: Cough and shortness of breath Comparison: 12/01/2019 chest x-ray FINDINGS: The cardiomediastinal silhouette is normal in size. Lungs are clear. Costophrenic angles are sharp. No suspicious osseous abnormality is seen. IMPRESSION: No evidence for acute cardiopulmonary disease. SL: SG-H at 1939 Reported and signed by: Srini May M.D. 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[facility] ARTERIAL BLOOD [id number] 21:28:00 Test Item Value Reference Range Interpretation Comments ARTERIAL BLOOD GAS PH 7.420 7.35-7.45 N (test code = PHA) ARTERIAL BLOOD GAS 35.9 mmHg 35-45 N PCO2 (test code = PCO2A) ARTERIAL BLOOD GAS PO2 87 mmHg 80-100 N (test code = PO2A) BICARBONATE TOTAL HCO3 23.4 mmol/L 22.0-26.0 N (test code = HCO3) BASE EXCESS (test code -1.0 mmol/L -4-4 N = ROSI) ABG O2 SATURATION 97 % 90-100 N (test code = SATA) ABG DELIVERY (test Room Air Performed by code = MENDEL) certified opera tor at [facility] ABG TEMPERATURE (test 98.0 F code = TEMPA) ABG SITE (test code = L Rad SITEA) TCO2 ARTERIAL (test 24 code = TCO2A) DRUGS OF ABUSE SCREEN [id number] 21:25:00 Test Item Value Reference Range Interpretation Comments URN COCAINE (test code NEGATIVE NEGATIVE = COCAURN) URN CANNABINOIDS (test NEGATIVE NEGATIVE code = CANNABURN) URN AMPHETAMINE (test NEGATIVE NEGATIVE code = AMPHETURN) URN BARBITURATE (test NEGATIVE NEGATIVE code = BARBITURN) URN BENZODIAZEPINE NEGATIVE NEGATIVE Cut-off v alue:200 (test code = BENZOURN) ng/mL URN OPIATES (test code NEGATIVE NEGATIVE Cut-o ff value:1999 = OPIATURN) ng/mL URN PHENCYCLIDINE (PCP) NEGATIVE NEGATIVE Cuto ffs:Barbiturates (test code = PHENCURN) 200 ng/mLBenzodiaze pines 200 ng/ mLTHC Cannabinoids 50 ng/mLOpiates(Mo rphine) 2000 ng/mLAmphetamin e 1000 ng/mLCocaine 300 ng/ mLPCP phencyclidine 25 ng/mL Unconf irmed screening resul ts shouldnot be us ed for non-medical pur poses. UA RFLX MICR CULT IF [id number] 21:22:00 Test Item Value Reference Range Interpretation Comments UA COLOR (test code = COLU) COLORLESS YEL/STRAW UA APPEARANCE (test code = CLEAR CLEAR APPU) UA GLUCOSE DIPSTICK (test code 3+ NEGATIVE A = DGLUU) UA BILIRUBIN DIPSTICK (test NEGATIVE NEGATIVE code = BILU) UA KETONE DIPSTICK (test code NEGATIVE NEGATIVE = KETU) UA SPECIFIC GRAVITY (test code 1.013 1.005-1.030 N = SGU) UA BLOOD DIPSTICK (test code = NEGATIVE NEGATIVE GERSON) UA PH DIPSTICK (test code = 5.0 5.0-7.0 N MITCHEL) UA PROTEIN DIPSTICK (test code NEGATIVE NEGATIVE = PROU) UA UROBILINIOGEN DIPSTICK 0.2 mg/dL 0.2-1.0 (test code = URO) UA NITRITE DIPSTICK (test code NEGATIVE NEGATIVE = KAL) UA LEUKOCYTE ESTERASE DIPSTICK NEGATIVE NEGATIVE (test code = LEUU) UA WBC (test code = WBCU) 0-3 WBC/HPF 0-3 UA RBC (test code = RBCU) 0-3 RBC/HPF 0-3 UA WBC NO REFLEX (test code = 0-3 WBC/HPF 0-3 WBCUCL) UA BACTERIA (test code = BACU) NONE SEEN /HPF NONE SEEN UA SQUAMOUS CELLS (test code = NONE SEEN /HPF NONE SEEN SQU) Indication for culture: Suprapubic PainSpecimen Description: CLEAN CATCH BASIC METABOLIC [id number] 20:58:00 Test Item Value Reference Range Interpretation Comments SODIUM (test code = NA) 126 mEq/L 134-147 L POTASSIUM (test code = 4.5 mEq/L 3.4-5.0 N K) CHLORIDE (test code = 94 mEq/L 100-108 L CL) CARBON DIOXIDE (test 25 mEq/L 21-33 N code = CO2) ANION GAP (test code = 11 0-20 N GAP) GLUCOSE (test code = 404 mg/dL 70-110 H GLU) BLOOD UREA NITROGEN 17 mg/dL 7-18 N (test code = BUN) GLOMERULAR FILTRATION 81.2 95-105 L Units of measure = RATE (test code = GFR) ml/mi n/1.73 m2 CREATININE (test code = 1.0 mg/dL 0.6-1.3 N CREAT) CALCIUM (test code = 9.8 mg/dL 8.0-10.5 N CA) HEPATIC FUNCTION [id number] 20:58:00 Test Item Value Reference Range Interpretation Comments TOTAL PROTEIN (test code = PROT) 7.3 g/dL 6.4-8.2 N ALBUMIN (test code = ALB) 4.00 g/dL 3.4-5.0 N BILIRUBIN TOTAL (test code = 0.20 mg/dL 0.0-1.0 N BILT) BILIRUBIN DIRECT (test code = < 0.10 MG/DL 0.0-0.30 N BILD) BILIRUBIN INDIRECT (test code = 0.10 MG/DL BILIND) SGOT/AST (test code = AST) 20 IUnit/L 15-37 N SGPT/ALT (test code = ALT) 28 IUnit/L 30-65 L ALKALINE PHOSPHATASE TOTAL (test 123 IUnit/L 20-125 N code = ALKP) [id number] 20:58:00 Test Item Value Reference Range Interpretation Comments MAGNESIUM (test code = MAG) 1.66 mg/dL 1.8-2.4 L [id number] 20:58:00 Test Item Value Reference Range Interpretation Comments TROPONIN-I < 0.006 ng/mL 0.000-0.045 N Negative: <= (test code = 0.045 Positive: TROPI) >= 0.046 Correl ation with serial results, other cardiac markers andclinical findings is nec essary to determine the clinicalsignifi cance of this result. Results using different metho dologies should not be c omparedto one another as john titative results may anayeli y by method. [id number] 20:58:00 Test Item Value Reference Range Interpretation Comments ACETAMINOPHEN (test code = ACET) < 0.2 mg/dL 1.0-3.0 L [id number] 20:58:00 Test Item Value Reference Range Interpretation Comments SALICYLATE (test code = DAVE) < 3.0 mg/dL 0.0-20.0 N [id number] 20:58:00 Test Item Value Reference Range Interpretation Comments ALCOHOL (test code 5.3 mg/dL <10 N Ethyl Alc ohol = ALC) Interpretation: 100 mg/dL - Legally Intoxicated 300-400 mg/dL - Severely Intoxicated >400 mg/dL - Po tentially LethalThe pharm acological response to blo od alcohol levels mayvary from individual to i ndividual. Signs of intoxi cationcan be observed at levels of 50-100 mg/dL. R esults are for Medical pur poses only, and not for Leg al orEmployment ev aluation purposes. CBC W/O [id number] 20:43:00 Test Item Value Reference Range Interpretation Comments WHITE BLOOD CELL (test code = 8.8 x10 3/uL 4.5-11.0 N WBC) RED BLOOD CELL (test code = 4.37 x10 6/uL 4.00-5.60 N RBC) HEMOGLOBIN (test code = HGB) 14.3 g/dL 12.5-16.9 N HEMATOCRIT (test code = HCT) 40.4 % 37.5-50.7 N MEAN CELL VOLUME (test code = 92.4 fL 81.0-99.0 N MCV) MEAN CELL HGB (test code = MCH) 32.7 pg 27.0-33.0 N MEAN CELL HGB CONCETRATION 35.4 g/dL 33.0-37.0 N (test code = MCHC) RED CELL DISTRIBUTION WIDTH CV 12.5 % 11.5-14.5 N (test code = RDW) RED CELL DISTRIBUTION WIDTH SD 42.8 fL 37.0-54.0 N (test code = RDW-SD) PLATELET COUNT (test code = 268 x10 3/uL 150-400 N PLT) MEAN PLATELET VOLUME (test code 9.8 fL 7.0-9.0 H = MPV) CBC W/O [id number] 20:41:00 Test Item Value Reference Range Interpretation Comments WHITE BLOOD CELL (test code = x10 3/uL 4.5-11.0 WBC) RED BLOOD CELL (test code = RBC) x10 6/uL 4.00-5.60 HEMOGLOBIN (test code = HGB) 14.3 g/dL 12.5-16.9 N HEMATOCRIT (test code = HCT) 40.4 % 37.5-50.7 N MEAN CELL VOLUME (test code = fL 81.0-99.0 MCV) MEAN CELL HGB (test code = MCH) pg 27.0-33.0 MEAN CELL HGB CONCETRATION (test g/dL 33.0-37.0 code = MCHC) RED CELL DISTRIBUTION WIDTH CV % 11.5-14.5 (test code = RDW) PLATELET COUNT (test code = PLT) 268 x10 3/uL 150-400 N [id number] 01:42:00 Test Item Value Reference Range Interpretation Comments GLUBED (test code = 382 MG/DL 70-110 H Performe 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[facility] [id number] 08:11:00 Test Item Value Reference Range Interpretation Comments GLUBED (test code = 236 MG/DL 70-110 H Performe 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[facility] [id number] 05:04:00 Test Item Value Reference Range Interpretation Comments GLUBED (test code = 356 MG/DL 70-110 H Performe 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[facility] [id number] 03:31:00 Test Item Value Reference Range Interpretation Comments GLUBED (test code = 410 MG/DL 70-110 H Performe 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[facility] DRUGS OF ABUSE SCREEN [id number] 01:08:00 Test Item Value Reference Range Interpretation Comments URN COCAINE (test code NEGATIVE NEGATIVE = COCAURN) URN CANNABINOIDS (test NEGATIVE NEGATIVE code = CANNABURN) URN AMPHETAMINE (test NEGATIVE NEGATIVE code = AMPHETURN) URN BARBITURATE (test NEGATIVE NEGATIVE code = BARBITURN) URN BENZODIAZEPINE NEGATIVE NEGATIVE Cut-off v alue:200 (test code = BENZOURN) ng/mL URN OPIATES (test code NEGATIVE NEGATIVE Cut-o ff value:2000 = OPIATURN) ng/mL URN PHENCYCLIDINE (PCP) NEGATIVE NEGATIVE Cuto ffs:Barbiturates (test code = PHENCURN) 200 ng/mLBenzodiaze pines 200 ng/ mLTHC Cannabinoids 50 ng/mLOpiates(Mo rphine) 2000 ng/mLAmphetamin e 1000 ng/mLCocaine 300 ng/ mLPCP phencyclidine 25 ng/mL Unconf irmed screening resul ts shouldnot be us ed for non-medical pur poses. BASIC METABOLIC [id number] 00:51:00 Test Item Value Reference Range Interpretation Comments SODIUM (test code = NA) 132 mEq/L 134-147 L POTASSIUM (test code = 4.0 mEq/L 3.4-5.0 N K) CHLORIDE (test code = 96 mEq/L 100-108 L CL) CARBON DIOXIDE (test 31 mEq/L 21-33 N code = CO2) ANION GAP (test code = 9 0-20 N GAP) GLUCOSE (test code = 474 mg/dL 70-110 HH GLU) BLOOD UREA NITROGEN 12 mg/dL 7-18 N (test code = BUN) GLOMERULAR FILTRATION 65.8 95-105 L Units of measure = RATE (test code = GFR) ml/mi n/1.73 m2 CREATININE (test code = 1.2 mg/dL 0.6-1.3 N CREAT) CALCIUM (test code = 10.7 mg/dL 8.0-10.5 H CA) HEPATIC FUNCTION [id number] 00:51:00 Test Item Value Reference Range Interpretation Comments TOTAL PROTEIN (test code = PROT) 7.3 g/dL 6.4-8.2 N ALBUMIN (test code = ALB) 4.30 g/dL 3.4-5.0 N BILIRUBIN TOTAL (test code = 0.30 mg/dL 0.0-1.0 N BILT) BILIRUBIN DIRECT (test code = < 0.10 MG/DL 0.0-0.30 N BILD) BILIRUBIN INDIRECT (test code = 0.20 MG/DL BILIND) SGOT/AST (test code = AST) 14 IUnit/L 15-37 L SGPT/ALT (test code = ALT) 21 IUnit/L 30-65 L ALKALINE PHOSPHATASE TOTAL (test 140 IUnit/L 20-125 H code = ALKP) [id number] 00:51:00 Test Item Value Reference Range Interpretation Comments ACETAMINOPHEN (test code = ACET) < 0.2 mg/dL 1.0-3.0 L [id number] 00:51:00 Test Item Value Reference Range Interpretation Comments SALICYLATE (test code = DAVE) < 3.0 mg/dL 0.0-20.0 N [id number] 00:51:00 Test Item Value Reference Range Interpretation Comments ALCOHOL (test < 3.0 mg/dL <10 N Ethyl Alcohol code = ALC) Interpretation: 100 mg/dL - Legally Intoxicated 300-400 mg/dL - Severely Intoxi cated >400 mg/dL - Potentially Let halThe pharmacological response to blood alcoho l levels mayvary from in dividual to individual. Signs of intoxicationcan be observed at lev els of 50-100 mg/dL. R esults are for Medical pur poses only, and not f or Legal orEmployment ev aluation purposes. URINALYSIS [id number] 00:34:00 Test Item Value Reference Range Interpretation Comments UA COLOR (test code = COLU) STRAW YEL/STRAW UA APPEARANCE (test code = CLEAR CLEAR APPU) UA GLUCOSE DIPSTICK (test code 3+ NEGATIVE A = DGLUU) UA BILIRUBIN DIPSTICK (test NEGATIVE NEGATIVE code = BILU) UA KETONE DIPSTICK (test code NEGATIVE NEGATIVE = KETU) UA SPECIFIC GRAVITY (test code 1.024 1.005-1.030 N = SGU) UA BLOOD DIPSTICK (test code = NEGATIVE NEGATIVE GERSON) UA PH DIPSTICK (test code = 7.0 5.0-7.0 N MITCHEL) UA PROTEIN DIPSTICK (test code NEGATIVE NEGATIVE = PROU) UA UROBILINIOGEN DIPSTICK 0.2 mg/dL 0.2-1.0 (test code = URO) UA NITRITE DIPSTICK (test code NEGATIVE NEGATIVE = KAL) UA LEUKOCYTE ESTERASE DIPSTICK NEGATIVE NEGATIVE (test code = LEUU) UA RBC (test code = RBCU) 0-3 RBC/HPF 0-3 UA WBC NO REFLEX (test code = 0-3 WBC/HPF 0-3 WBCUCL) UA BACTERIA (test code = BACU) NONE SEEN /HPF NONE SEEN UA SQUAMOUS CELLS (test code = NONE SEEN /HPF NONE SEEN SQU) CBC W/O [id number] 00:26:00 Test Item Value Reference Range Interpretation Comments WHITE BLOOD CELL (test code = 8.9 x10 3/uL 4.5-11.0 N WBC) RED BLOOD CELL (test code = 4.76 x10 6/uL 4.00-5.60 N RBC) HEMOGLOBIN (test code = HGB) 15.1 g/dL 12.5-16.9 N HEMATOCRIT (test code = HCT) 43.3 % 37.5-50.7 N MEAN CELL VOLUME (test code = 91.0 fL 81.0-99.0 N MCV) MEAN CELL HGB (test code = MCH) 31.7 pg 27.0-33.0 N MEAN CELL HGB CONCETRATION 34.9 g/dL 33.0-37.0 N (test code = MCHC) RED CELL DISTRIBUTION WIDTH CV 12.4 % 11.5-14.5 N (test code = RDW) RED CELL DISTRIBUTION WIDTH SD 41.4 fL 37.0-54.0 N (test code = RDW-SD) PLATELET COUNT (test code = 263 x10 3/uL 150-400 N PLT) MEAN PLATELET VOLUME (test code 10.0 fL 7.0-9.0 H = MPV) Urine drugs of abuse [id number] 01:40:20 Test Item Value Reference Interpretation Comments Range Amphetamine screen, Negative urine (test code = 3349-8) Methamphetamine Negative screen, urine (test code = 3779-6) Barbiturate screen, Negative urine (test code = 3377-9) Benzodiazepine Negative screen, urine (test code = 3390-2) Cocaine screen, Negative urine (test code = 3397-7) Methadone screen, Negative urine (test code = 3773-9) Opiates screen, Negative urine (test code = 3879-4) Phencyclidine NT screen, urine (test code = 3936-2) Tricyclic screen, Negative urine (test code = 89067-8) Cannabinoid screen, Negative Drug scr een minimum urine (test code = concentra tion of 3427-2) detectabilityAm phetamines 1000 ng/mLMethamphet amines 1000 ng/mLBa rbiturates 300 ng/mLBenzodiaze pines 300 ng/mLCo mariana 300 ng/mLMethadone 300 ng/mLOp iates 300 ng/mLPhencyclid ine 25 ng/mLCa nnabinoids 50 ng/mLTricyclics 1000 ng/mLNe gative test results indicat es presumptive evidence of [place] clinically significant jordon g concentration i n this urine specimen.Positi ve test results are pre sumptive evidence of clinicallysigni ficant drug concentration i n this urine specimen.Testin g performed for medical pur poses only. [place] MethodistSalicylate [id number] 01:39:38 Test Item Value Reference Range Interpretation Comments Salicylate (test code = 4024-6) <3.0 3-30 [place] MethodistAlcohol level, [id number] 01:39:38 Test Item Value Reference Range Interpretation Comments Alcohol percent None Detected % Normal (test code = None Detec tedLegal 5643-2) Intoxication in [place] 80 mg/dL (0.08% ) - Whole BloodToxi c Concentration 200 mg/dL (0.2%)Potential ly Fatal 350 - 500 mg/dL (0.35 - 0 .5%) [facility] MethodistT4, [id number] 01:39:38 Test Item Value Reference Range Interpretation Comments T4, free (test code = 3024-7) 1.18 ng/dL 0.9-1.7 [place] UrvashiistThyroid stimulating [id number] 01:39:38 Test Item Value Reference Range Interpretation Comments TSH (test code = 3016-3) 2.65 0.27- 4.20 uIU/mL [place] MethodistAcetaminophen [id number] 01:27:57 Test Item Value Reference Range Interpretation Comments Acetaminophen level <5.0 10-30 A Therapeu tic (test code = 3298-7) 10-30 u g/mL Possi ble Toxicity 15 0-200 ug/mL Probable [place] >200 ug/mL Lab Interpretation (test Abnormal code = 79067-1) [facility] MethodistUrine [id number] 01:25:51 Test Item Value Reference Range Interpretation Comments Urine culture (test SEE COMMENT Bacteriu casper screen code = 2912738) negative. [place] MethodistUrinalysis screen and microscopy, with reflex to culture 2020-01-23 01:25:50 Test Item Value Reference Range Interpretation Comments Specimen site (test code = Clean catch 0103083) Color, UA (test code = 5778-6) Straw Appearance, UA (test code = Clear 5767-9) Specific gravity, UA (test code = 1.029 1.001-1.035 5811-5) pH, UA (test code = 5803-2) 5.0 5.0-8.5 Protein, UA (test code = 17302-0) Negative Negative Glucose, UA (test code = 28560-4) 3+ Negative A Ketones, UA (test code = 2514-8) Negative Negative Bilirubin, UA (test code = Negative Negative 5770-3) Blood, UA (test code = 5794-3) Negative Negative Nitrite, UA (test code = 5802-4) Negative Negative Urobilinogen, UA (test code = Negative <2.0 76231-8) Leukocyte esterase, UA (test code Negative Negative = 5799-2) Epithelial cells, UA (test code = Few Few /HPF 5787-7) WBC, UA (test code = 5821-4) None seen 0- 1 /HPF RBC, UA (test code = 92232-7) 0-5 0- 5 /HPF Bacteria, UA (test code = None seen None seen 59665-9) Yeast, UA (test code = 04616-0) None seen Yeast with pseudohyphae, UA (test None seen code = 89469-4) Lab Interpretation (test code = Abnormal 11680-2) [facility] METABOLIC [id number] 04:54:00 Test Item Value Reference Range Interpretation Comments SODIUM (test code = NA) 133 mmol/l 134.0-147.0 L POTASSIUM (test code = K) 3.5 mmol/L 3.6-5.2 L CHLORIDE (test code = CL) 96 mmol/l 98.0-107.0 L CARBON DIOXIDE (test code = CO2) 25.2 mmol/l 21.0-33.0 N ANION GAP (test code = GAP) 15.3 0-20 N GLUCOSE (test code = GLU) 315 mg/dl 70.0-110.0 H BLOOD UREA NITROGEN (test code = 7 mg/dl 7.0-18.0 N BUN) CREATININE (test code = CREAT) 0.89 mg/dL 0.60-1.30 N GFR NON BLACK (test code = 98 mL/min 95-105 N GFRNONBLACK) GFR BLACK (test code = GFRBLACK) 119 mL/min 115-127 N CALCIUM (test code = CA) 8.8 mg/dl 8.0-10.5 N Specimen comments: Clean CatchHEPATIC FUNCTION PANEL [id number] 04:54:00 Test Item Value Reference Range Interpretation Comments TOTAL PROTEIN (test code = PROT) 7.6 GM/DL 6.0-8.1 N ALBUMIN (test code = ALB) 3.7 gm/dL 3.2-4.7 N BILIRUBIN TOTAL (test code = 0.2 mg/dl 0.0-1.0 N BILT) BILIRUBIN DIRECT (test code = 0.1 mg/dl 0.0-0.3 N BILD) SGOT/AST (test code = AST) 15 Units/L 15.0-37.0 N SGPT/ALT (test code = ALT) 32 Units/L 12.0-78.0 N ALKALINE PHOSPHATASE TOTAL (test 115 Units/L 50.0-136.0 N code = ALKP) Specimen comments: Clean [id number] 04:54:00 Test Item Value Reference Range Interpretation Comments LIPASE (test code = LIP) 157 Units/L 65.0-230.0 N Specimen comments: Clean [id number] 04:54:00 Test Item Value Reference Range Interpretation Comments ACETAMINOPHEN (test <2.0 mcg/ml 10.0-30.0 L Result i s in code = ACET) Microgram per milliliter. Specimen comments: Clean [id number] 04:54:00 Test Item Value Reference Range Interpretation Comments LITHIUM (test code = LITH) <0.1 MMOL/L 0.6-1.2 LL Specimen comments: Clean [id number] 04:54:00 Test Item Value Reference Range Interpretation Comments SALICYLATE (test code = DAVE) 5.7 mg/dl 2.8-20.0 N Specimen comments: Clean CatchVALPROIC ACID (DEPAKENE)2020-01-19 04:54:00 Test Item Value Reference Range Interpretation Comments VALPROIC ACID <3.0 mcg/dL 50-100 L The physicia n must (DEPAKENE) (test determine t he code = VALP) appropriate therapeutic range for each patient. Specimen comments: Clean [id number] 04:54:00 Test Item Value Reference Range Interpretation Comments ALCOHOL (test code 0.00 gm/dL 0.00-0.00 N ETHYL ALC OHOL VALUES - = ALC) INTERPRETATION: 0.050 GM/DL - NOT INT OXICATED 0.100 GM/DL - INTOXICATED 0.3 50-0.450 GM/DL - SEVEREL Y INTOXICATED 0.5 50 GM/DL- FATAL INTOXICAT ION Specimen comments: Clean CatchBASIC METABOLIC [id number] 04:53:00 Test Item Value Reference Range Interpretation Comments SODIUM (test code = NA) 133 mmol/l 134.0-147.0 L POTASSIUM (test code = K) 3.5 mmol/L 3.6-5.2 L CHLORIDE (test code = CL) 96 mmol/l 98.0-107.0 L CARBON DIOXIDE (test code = CO2) 25.2 mmol/l 21.0-33.0 N ANION GAP (test code = GAP) 15.3 0-20 N GLUCOSE (test code = GLU) 315 mg/dl 70.0-110.0 H BLOOD UREA NITROGEN (test code = 7 mg/dl 7.0-18.0 N BUN) CREATININE (test code = CREAT) 0.89 mg/dL 0.60-1.30 N GFR NON BLACK (test code = 98 mL/min 95-105 N GFRNONBLACK) GFR BLACK (test code = GFRBLACK) 119 mL/min 115-127 N CALCIUM (test code = CA) 8.8 mg/dl 8.0-10.5 N Specimen comments: Clean CatchHEPATIC FUNCTION PANEL [id number] 04:53:00 Test Item Value Reference Range Interpretation Comments TOTAL PROTEIN (test code = PROT) 7.6 GM/DL 6.0-8.1 N ALBUMIN (test code = ALB) 3.7 gm/dL 3.2-4.7 N BILIRUBIN TOTAL (test code = 0.2 mg/dl 0.0-1.0 N BILT) BILIRUBIN DIRECT (test code = 0.1 mg/dl 0.0-0.3 N BILD) SGOT/AST (test code = AST) 15 Units/L 15.0-37.0 N SGPT/ALT (test code = ALT) 32 Units/L 12.0-78.0 N ALKALINE PHOSPHATASE TOTAL (test 115 Units/L 50.0-136.0 N code = ALKP) Specimen comments: Clean [id number] 04:53:00 Test Item Value Reference Range Interpretation Comments LIPASE (test code = LIP) 157 Units/L 65.0-230.0 N Specimen comments: Clean [id number] 04:53:00 Test Item Value Reference Range Interpretation Comments ACETAMINOPHEN (test <2.0 mcg/ml 10.0-30.0 L Result i s in code = ACET) Microgram per milliliter. Specimen comments: Clean [id number] 04:53:00 Test Item Value Reference Range Interpretation Comments LITHIUM (test code = LITH) MMOL/L 0.6-1.2 Specimen comments: Clean [id number] 04:53:00 Test Item Value Reference Range Interpretation Comments SALICYLATE (test code = DAVE) 5.7 mg/dl 2.8-20.0 N Specimen comments: Clean CatchVALPROIC ACID (DEPAKENE)2020-01-19 04:53:00 Test Item Value Reference Range Interpretation Comments VALPROIC ACID <3.0 mcg/dL 50-100 L The physicia n must (DEPAKENE) (test determine t he code = VALP) appropriate therapeutic range for each patient. Specimen comments: Clean [id number] 04:53:00 Test Item Value Reference Range Interpretation Comments ALCOHOL (test code 0.00 gm/dL 0.00-0.00 N ETHYL ALC OHOL VALUES - = ALC) INTERPRETATION: 0.050 GM/DL - NOT INT OXICATED 0.100 GM/DL - INTOXICATED 0.3 50-0.450 GM/DL - SEVEREL Y INTOXICATED 0.5 50 GM/DL- FATAL INTOXICAT ION Specimen comments: Clean CatchBASIC METABOLIC [id number] 04:46:00 Test Item Value Reference Range Interpretation Comments SODIUM (test code = NA) 133 mmol/l 134.0-147.0 L POTASSIUM (test code = K) 3.5 mmol/L 3.6-5.2 L CHLORIDE (test code = CL) 96 mmol/l 98.0-107.0 L CARBON DIOXIDE (test code = CO2) 25.2 mmol/l 21.0-33.0 N ANION GAP (test code = GAP) 15.3 0-20 N GLUCOSE (test code = GLU) mg/dl 70.0-110.0 BLOOD UREA NITROGEN (test code = mg/dl 7.0-18.0 BUN) CREATININE (test code = CREAT) mg/dL 0.60-1.30 GFR NON BLACK (test code = mL/min 95-105 GFRNONBLACK) GFR BLACK (test code = GFRBLACK) mL/min 115-127 CALCIUM (test code = CA) mg/dl 8.0-10.5 Specimen comments: Clean CatchHEPATIC FUNCTION PANEL [id number] 04:46:00 Test Item Value Reference Range Interpretation Comments TOTAL PROTEIN (test code = PROT) gm/dL 6.4-8.2 ALBUMIN (test code = ALB) gm/dl 3.2-4.7 BILIRUBIN TOTAL (test code = BILT) mg/dl 0.0-1.0 BILIRUBIN DIRECT (test code = BILD) mg/dl 0.0-0.3 SGOT/AST (test code = AST) Units/L 15.0-37.0 SGPT/ALT (test code = ALT) Units/L 12.0-78.0 ALKALINE PHOSPHATASE TOTAL (test Units/L 50.0-136.0 code = ALKP) Specimen comments: Clean [id number] 04:46:00 Test Item Value Reference Range Interpretation Comments LIPASE (test code = LIP) Units/L 65.0-230.0 Specimen comments: Clean [id number] 04:46:00 Test Item Value Reference Range Interpretation Comments ACETAMINOPHEN (test code = ACET) mcg/ml 10.0-30.0 Specimen comments: Clean [id number] 04:46:00 Test Item Value Reference Range Interpretation Comments LITHIUM (test code = LITH) MMOL/L 0.6-1.2 Specimen comments: Clean [id number] 04:46:00 Test Item Value Reference Range Interpretation Comments SALICYLATE (test code = DAVE) mg/dl 2.8-20.0 Specimen comments: Clean CatchVALPROIC ACID (DEPAKENE)2020-01-19 04:46:00 Test Item Value Reference Range Interpretation Comments VALPROIC ACID (DEPAKENE) (test code = mcg/dL 50-100 VALP) Specimen comments: Clean [id number] 04:46:00 Test Item Value Reference Range Interpretation Comments ALCOHOL (test code = ALC) gm/dL 0.00-0.00 Specimen comments: Clean CatchDRUGS OF ABUSE SCREEN [id number] 04:45:00 Test Item Value Reference Range Interpretation Comments URN COCAINE (test code NEGATIVE NEGATIVE Cocai ne cut-off = COCAURN) concentration: 300 ng/mL URN CANNABINOIDS (test NEGATIVE NEGATIVE Canna binoids cut-off code = CANNABURN) concentrat ion: 50 ng/mL URN AMPHETAMINE (test NEGATIVE NEGATIVE Amphet amine cut-off code = AMPHETURN) concentrat ion: 1000 ng/mL URN BARBITURATE (test NEGATIVE NEGATIVE Barbit urate cut-off code = BARBITURN) concentrat ion: 200 ng/mL URN BENZODIAZEPINE NEGATIVE NEGATIVE Benzodiaz epine cut-off (test code = BENZOURN) sam ntration: 200 ng/mL URN OPIATES (test code NEGATIVE NEGATIVE Opiat es cut-off = OPIATURN) concentration: 200 ng/mL URN PHENCYCLIDINE (PCP) NEGATIVE NEGATIVE Phen cyclidine(PCP) (test code = PHENCURN) cut-o ff concentration: 25 ng/ml URN METHADONE (test NEGATIVE NEGATIVE code = METHAURN) Specimen comments: Clean CatchURINALYSIS [id number] 04:45:00 Test Item Value Reference Range Interpretation Comments UA COLOR (test code = COLU) YELLOW UA APPEARANCE (test code = CLEAR APPU) UA GLUCOSE DIPSTICK (test 1000 mg/dl mg/dl NORMAL A code = DGLUU) UA BILIRUBIN DIPSTICK (test NEGATIVE mg/dL NEGATIVE code = BILU) UA KETONE DIPSTICK (test NEGATIVE mg/dl NEGATIVE code = KETU) UA SPECIFIC GRAVITY (test 1.005 1.000-1.030 code = SGU) UA BLOOD DIPSTICK (test NEGATIVE Jose/micL NEGATIVE code = GERSON) UA PH DIPSTICK (test code = 6.0 5.0-9.0 MITCHEL) UA PROTEIN DIPSTICK (test NEGATIVE mg/dl NEGATIVE code = PROU) UA UROBILINIOGEN DIPSTICK NORMAL mg/dl NORMAL (test code = URO) UA NITRITE DIPSTICK (test NEGATIVE NEGATIVE code = KAL) UA LEUKOCYTE ESTERASE NEGATIVE Janie/micL NEGATIVE DIPSTICK (test code = LEUU) UA WBC (test code = WBCU) 0-3 WBC/HPF NONE UA RBC (test code = RBCU) 0-2 RBC/HPF 0-3 UA EPITHELIAL CELLS (test 0-3 EPI/HPF 0-3 code = EPIU) UA BACTERIA (test code = FEW NONE BACU) Specimen comments: Clean CatchCBC W/AUTO [id number] 04:40:00 Test Item Value Reference Range Interpretation Comments WHITE BLOOD CELL (test code = 9.5 K/mm3 4.5-11.0 N WBC) RED BLOOD CELL (test code = 4.49 M/mm3 4.40-5.90 N RBC) HEMOGLOBIN (test code = HGB) 14.2 gm/dL 13.0-17.0 N HEMATOCRIT (test code = HCT) 40.4 % 36.0-48.0 N MEAN CELL VOLUME (test code = 90.0 UM3 80.0-94.0 N MCV) MEAN CELL HGB (test code = MCH) 31.6 UUG 25.5-32.5 N MEAN CELL HGB CONCETRATION 35.1 gm/dL 29.0-35.5 N (test code = MCHC) RED CELL DISTRIBUTION WIDTH 12.5 % 11.5-15.0 N (test code = RDW) RED CELL DISTRIBUTION WIDTH SD 41.3 fL 34.8-50.2 N (test code = RDW-SD) PLATELET COUNT (test code = 261 K/mm3 150-400 N PLT) MEAN PLATELET VOLUME (test code 9.7 fl 7.4-10.4 N = MPV) NEUTROPHIL % (test code = NT%) 55.8 % 49.0-76.0 N IMMATURE GRANULOCYTE % (test 0.6 % 0.0-0.4 H code = IG%) LYMPHOCYTE % (test code = LY%) 31.4 % 23.0-38.0 N MONOCYTE % (test code = MO%) 9.1 % 1.0-10.0 N EOSINOPHIL % (test code = EO%) 2.5 % 1.0-5.0 N BASOPHIL % (test code = BA%) 0.6 % 0.0-1.0 N NUCLEATED RBC % (test code = 0.0 % 0.0-0.1 N NRBC%) NEUTROPHIL # (test code = NT#) 5.3 K/mm3 2.4-6.3 N IMMATURE GRANULOCYTE # (test 0.06 x10 3/uL 0.00-0.07 N code = IG#) LYMPHOCYTE # (test code = LY#) 3.0 K/mm3 1.2-4.0 N MONOCYTE # (test code = MO#) 0.9 K/mm3 0.0-0.6 H EOSINOPHIL # (test code = EO#) 0.2 K/MM3 0.0-0.7 N BASOPHIL # (test code = BA#) 0.1 K/mm3 0.0-0.2 N NUCLEATED RBC # (test code = 0.00 X10 3uL 0.00-0.01 N NRBC#) URINALYSIS [id number] 04:39:00 Test Item Value Reference Range Interpretation Comments UA COLOR (test code = COLU) YELLOW UA APPEARANCE (test code = CLEAR APPU) UA GLUCOSE DIPSTICK (test 1000 mg/dl mg/dl NORMAL A code = DGLUU) UA BILIRUBIN DIPSTICK (test NEGATIVE mg/dL NEGATIVE code = BILU) UA KETONE DIPSTICK (test NEGATIVE mg/dl NEGATIVE code = KETU) UA SPECIFIC GRAVITY (test 1.005 1.000-1.030 code = SGU) UA BLOOD DIPSTICK (test NEGATIVE Jose/micL NEGATIVE code = GERSON) UA PH DIPSTICK (test code = 6.0 5.0-9.0 MITCHEL) UA PROTEIN DIPSTICK (test NEGATIVE mg/dl NEGATIVE code = PROU) UA UROBILINIOGEN DIPSTICK NORMAL mg/dl NORMAL (test code = URO) UA NITRITE DIPSTICK (test NEGATIVE NEGATIVE code = KAL) UA LEUKOCYTE ESTERASE NEGATIVE Janie/micL NEGATIVE DIPSTICK (test code = LEUU) UA WBC (test code = WBCU) WBC/HPF NONE UA RBC (test code = RBCU) RBC/HPF 0-3 UA EPITHELIAL CELLS (test EPI/HPF 0-3 code = EPIU) UA BACTERIA (test code = NONE BACU) Specimen comments: Clean CatchCOVID-19 qualitative [id number] 14:15:14 Test Item Value Reference Range Interpretation Comments Interpretation (test Negative results do code = 7073415) not preclude 2019-nCoV infection and should not be used as the sole basis for treatment or other patient management decisions. Negative results must be combined with clinical observations, patient history, and epidemiological information. COVID-19 qualitative Not-Detected Not-Detected PCR result (test code = 02761-6) COVID-19 qualitative See link below for C ase Number: PCR (test code = PDF Lab Report [id number]) [facility] [id number] 03:49:38 Test Item Value Reference Range Interpretation Comments [place] (test code = 3719-2) <0.20 0.6-1.2 A Lab Interpretation (test code = Abnormal 11491-9) [facility] Center[facility] blood [id number] 02:22:32 Test Item Value Reference Range Interpretation Comments pH, venous (test code = 2746-6) 7.46 7.32-7.42 H pCO2, venous (test code = 1-4) 36 45- 51 mmHg L pO2, venous (test code = 2705-2) 49 25- 40 mmHg H Base excess, venous (test code = 2 meq/L -2-2 1927-3) O2 saturation, venous (test code 92 % 40-70 H = 2711-0) Bicarbonate, venous (test code = 25.7 mmol/L 21-28 70815-1) FiO2, inspired O2% (test code = Unknown % 1389) Lab Interpretation (test code = Abnormal 50661-7) [id number] 12:04:00 Test Item Value Reference Range Interpretation Comments GLUBED (test code = 255 MG/DL 70-110 H Performe 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[facility] - XR CHEST 1 [id number] 05:28:00 FAX: Willy Flores DO [phone] [place]: St: REG Name: [facility] Amparo Carrillo : 1975 Age/S: 44/M [address] [place] [address] Unit#: [id number] Loc: [place] [address] Phys: Willy Askew DO Acct: [id number] Dis Date: Status: REG ER PHONE #: [phone] Exam Date: 12/01/2019 050 FAX #: [phone] Reason: CHEST PAIN EXAMS: CPT CODE: [id number] XR CHEST 1 V 90259 Chest x-ray 1 view History: Chest pain Comparison: Chest x- ray 11/06/2019 Findings: Mediastinum: The cardi omediastinal contours are unremarkable. Lungs and pleural spaces:The right costophrenic angle is incompletely imaged. There is no focal consolidation, pneumothorax or overt pleural effusion. The pulmonary vascularity is normal. No displaced osseous fractures identified. A 10 mm circular metallic density projects over the left midlung zone and may be external to the patient. Correlate with exam. Impression: The right costophrenic angle is incompletely imaged. No acute cardiopulmonary findings with slight study limitations. A 10 mm circular metallic density projects over the left midlung zone and may be external to the patient. Correlate with exam. Electron ically Signed by Renea De La Garza on 12/01/2019 at 0528 Reported and signedby: Rishi De La Garza M.D. CC: Willy Askew DO Technologist: RT Ronda(R) Trnscrd Date/Time/By: 12/01/2019 (0528) : By: [email or web address] Orig Print D/T: S: 12/01/2019 (7871) PAGE 1 Signed ReportCOMPREHENSIVE METABOLIC [id number] 04:02:00 Test Item Value Reference Range Interpretation Comments SODIUM (test code = NA) 135 mEq/L 134-147 N POTASSIUM (test code = 3.7 mEq/L 3.4-5.0 N K) CHLORIDE (test code = 103 mEq/L 100-108 N CL) CARBON DIOXIDE (test 28 mEq/L 21-33 N code = CO2) ANION GAP (test code = 8 0-20 N GAP) GLUCOSE (test code = 246 mg/dL 70-110 H GLU) BLOOD UREA NITROGEN 12 mg/dL 7-18 N (test code = BUN) GLOMERULAR FILTRATION 81.2 95-105 L Units of measure = RATE (test code = GFR) ml/mi n/1.73 m2 CREATININE (test code = 1.0 mg/dL 0.6-1.3 N CREAT) TOTAL PROTEIN (test 6.7 g/dL 6.4-8.2 N code = PROT) ALBUMIN (test code = 3.70 g/dL 3.4-5.0 N ALB) CALCIUM (test code = 8.8 mg/dL 8.0-10.5 N CA) BILIRUBIN TOTAL (test 0.20 mg/dL 0.0-1.0 N code = BILT) SGOT/AST (test code = 25 IUnit/L 15-37 N AST) SGPT/ALT (test code = 33 IUnit/L 30-65 N ALT) ALKALINE PHOSPHATASE 107 IUnit/L 20-125 N TOTAL (test code = ALKP) [id number] 04:02:00 Test Item Value Reference Range Interpretation Comments TROPONIN-I < 0.006 ng/mL 0.000-0.045 N Negative: <= (test code = 0.045 Positive: TROPI) >= 0.046 Correl ation with serial results, other cardiac markers andclinical findings is nec essary to determine the clinicalsignifi cance of this result. Results using different metho dologies should not be c omparedto one another as john titative results may anayeli y by method. [id number] 04:02:00 Test Item Value Reference Range Interpretation Comments ALCOHOL (test code 14.9 mg/dL <3.0 H Ethyl Alc ohol = ALC) Interpretation: 100 mg/dL - Legally Intoxic ated 300-400 mg/ dL - Severely Intoxi cated >400 mg/dL - Potentially LethalResults a re for Medical purpose s only, and not for Leg al orEmployment ev aluation purposes. CBC W/AUTO [id number] 03:32:00 Test Item Value Reference Range Interpretation Comments WHITE BLOOD CELL (test code = 8.04 x10 3/uL 4.5-11.0 N WBC) RED BLOOD CELL (test code = 3.88 x10 6/uL 4.00-5.60 L RBC) HEMOGLOBIN (test code = HGB) 12.3 g/dL 12.5-16.9 L HEMATOCRIT (test code = HCT) 35.4 % 37.5-50.7 L MEAN CELL VOLUME (test code = 91.2 fL 81.0-99.0 N MCV) MEAN CELL HGB (test code = MCH) 31.7 pg 27.0-33.0 N MEAN CELL HGB CONCETRATION 34.7 g/dL 33.0-37.0 N (test code = MCHC) RED CELL DISTRIBUTION WIDTH CV 12.9 % 11.5-14.5 N (test code = RDW) RED CELL DISTRIBUTION WIDTH SD 42.4 fL 37.0-54.0 N (test code = RDW-SD) PLATELET COUNT (test code = 228 x10 3/uL 150-400 N PLT) MEAN PLATELET VOLUME (test code 10.5 fL 7.0-9.0 H = MPV) NEUTROPHIL % (test code = NT%) 59.4 % 56.0-77.0 N IMMATURE GRANULOCYTE % (test 0.5 % 0.0-2.0 N code = IG%) LYMPHOCYTE % (test code = LY%) 26.5 % 14.0-32.0 N MONOCYTE % (test code = MO%) 9.3 % 4.8-9.0 H EOSINOPHIL % (test code = EO%) 3.7 % 0.3-3.7 N BASOPHIL % (test code = BA%) 0.6 % 0.0-2.0 N NUCLEATED RBC % (test code = 0.0 % 0-0 N NRBC%) NEUTROPHIL # (test code = NT#) 4.77 x10 3/uL 2.0-7.6 N IMMATURE GRANULOCYTE # (test 0.04 x10 3/uL 0.00-0.03 H code = IG#) LYMPHOCYTE # (test code = LY#) 2.13 x10 3/uL 1.0-3.8 N MONOCYTE # (test code = MO#) 0.75 x10 3/uL 0.1-0.8 N EOSINOPHIL # (test code = EO#) 0.30 x10 3/uL 0.0-0.2 H BASOPHIL # (test code = BA#) 0.05 x10 3/uL 0.0-0.2 N NUCLEATED RBC # (test code = 0.00 x10 3/uL 0.0-0.1 N NRBC#) MANUAL DIFF REQUIRED (test code NO = MDIFF) [id number] 05:23:00 Test Item Value Reference Range Interpretation Comments SODIUM (test code = NA) 135 mEq/L 134-147 N DRUGS OF ABUSE SCREEN [id number] 23:56:00 Test Item Value Reference Range Interpretation Comments URN COCAINE (test code NEGATIVE NEGATIVE = COCAURN) URN CANNABINOIDS (test NEGATIVE NEGATIVE code = CANNABURN) URN AMPHETAMINE (test NEGATIVE NEGATIVE code = AMPHETURN) URN BARBITURATE (test NEGATIVE NEGATIVE code = BARBITURN) URN BENZODIAZEPINE NEGATIVE NEGATIVE Cut-off v alue:200 (test code = BENZOURN) ng/mL URN OPIATES (test code NEGATIVE NEGATIVE Cut-o ff value:2000 = OPIATURN) ng/mL URN PHENCYCLIDINE (PCP) NEGATIVE NEGATIVE Cuto ffs:Barbiturates (test code = PHENCURN) 200 ng/mLBenzodiaze pines 200 ng/ mLTHC Cannabinoids 50 ng/mLOpiates(Mo rphine) 2000 ng/mLAmphetamin e 1000 ng/mLCocaine 300 ng/ mLPCP phencyclidine 25 ng/mL Unconf irmed screening resul ts shouldnot be us ed for non-medical pur poses. BASIC METABOLIC [id number] 23:54:00 Test Item Value Reference Range Interpretation Comments SODIUM (test code = NA) 128 mEq/L 134-147 L POTASSIUM (test code = 3.6 mEq/L 3.4-5.0 N K) CHLORIDE (test code = 93 mEq/L 100-108 L CL) CARBON DIOXIDE (test 31 mEq/L 21-33 N code = CO2) ANION GAP (test code = 8 0-20 N GAP) GLUCOSE (test code = 142 mg/dL 70-110 H GLU) BLOOD UREA NITROGEN 14 mg/dL 7-18 N (test code = BUN) GLOMERULAR FILTRATION 81.2 95-105 L Units of measure = RATE (test code = GFR) ml/mi n/1.73 m2 CREATININE (test code = 1.0 mg/dL 0.6-1.3 N CREAT) CALCIUM (test code = 8.9 mg/dL 8.0-10.5 N CA) HEPATIC FUNCTION [id number] 23:54:00 Test Item Value Reference Range Interpretation Comments TOTAL PROTEIN (test code = PROT) 7.4 g/dL 6.4-8.2 N ALBUMIN (test code = ALB) 3.80 g/dL 3.4-5.0 N BILIRUBIN TOTAL (test code = BILT) 0.5 MG/DL <1.5 N BILIRUBIN DIRECT (test code = 0.10 MG/DL 0.0-0.30 N BILD) BILIRUBIN INDIRECT (test code = 0.40 MG/DL BILIND) SGOT/AST (test code = AST) 20 IUnit/L 15-37 N SGPT/ALT (test code = ALT) 26 IUnit/L 15-65 N ALKALINE PHOSPHATASE TOTAL (test 97 IUnit/L 20-125 N code = ALKP) CREATINE KINASE (CK)2019-10-17 23:54:00 Test Item Value Reference Range Interpretation Comments CREATINE KINASE (CK) 273 35-232 H Result is in INTERNATIONAL (test code = CK) UNITS/LITER [id number] 23:54:00 Test Item Value Reference Range Interpretation Comments ACETAMINOPHEN (test code = ACET) < 2 ug/mL 10-30 L [id number] 23:54:00 Test Item Value Reference Range Interpretation Comments SALICYLATE (test code = DAVE) 5.3 mg/dL 2.8-20.0 N VALPROIC ACID (DEPAKENE)2019-10-17 23:54:00 Test Item Value Reference Range Interpretation Comments VALPROIC ACID (DEPAKENE) (test < 3 mcg/mL 50.0-100.0 L code = VALP) [id number] 23:54:00 Test Item Value Reference Range Interpretation Comments ALCOHOL (test code < 0.003 G/dL <0.003 Ethyl Alc ohol = ALC) Interpretation: 0.100 gm/dL - Legally Intoxic ated 0.300-0.40 0 gm/dL - Severely Into xicated >0.400 gm/dL - Potentially LethalResults a re for Medical purpose s only, and not for Leg al orEmployment ev aluation purposes. DRUGS OF ABUSE SCREEN [id number] 23:46:00 Test Item Value Reference Range Interpretation Comments URN COCAINE (test code NEGATIVE NEGATIVE = COCAURN) URN CANNABINOIDS (test NEGATIVE code = CANNABURN) URN AMPHETAMINE (test NEGATIVE NEGATIVE code = AMPHETURN) URN BARBITURATE (test NEGATIVE NEGATIVE code = BARBITURN) URN BENZODIAZEPINE NEGATIVE NEGATIVE Cut-off v alue:200 (test code = BENZOURN) ng/mL URN OPIATES (test code NEGATIVE NEGATIVE Cut-o ff value:2000 = OPIATURN) ng/mL URN PHENCYCLIDINE (PCP) NEGATIVE NEGATIVE Cuto ffs:Barbiturates (test code = PHENCURN) 200 ng/mLBenzodiaze pines 200 ng/ mLTHC Cannabinoids 50 ng/mLOpiates(Mo rphine) 2000 ng/mLAmphetamin e 1000 ng/mLCocaine 300 ng/ mLPCP phencyclidine 25 ng/mL Unconf irmed screening resul ts shouldnot be us ed for non-medical pur poses. BASIC METABOLIC [id number] 23:44:00 Test Item Value Reference Range Interpretation Comments SODIUM (test code = NA) 128 mEq/L 134-147 L POTASSIUM (test code = K) 3.6 mEq/L 3.4-5.0 N CHLORIDE (test code = CL) 93 mEq/L 100-108 L CARBON DIOXIDE (test code = CO2) 31 mEq/L 21-33 N ANION GAP (test code = GAP) 8 0-20 N GLUCOSE (test code = GLU) 142 mg/dL 70-110 H BLOOD UREA NITROGEN (test code = 14 mg/dL 7-18 N BUN) GLOMERULAR FILTRATION RATE (test 95-105 code = GFR) CREATININE (test code = CREAT) mg/dL 0.6-1.3 CALCIUM (test code = CA) 8.9 mg/dL 8.0-10.5 N HEPATIC FUNCTION [id number] 23:44:00 Test Item Value Reference Range Interpretation Comments TOTAL PROTEIN (test code = PROT) g/dL 6.4-8.2 ALBUMIN (test code = ALB) g/dL 3.4-5.0 BILIRUBIN TOTAL (test code = BILT) MG/DL <1.5 BILIRUBIN DIRECT (test code = BILD) MG/DL 0.0-0.30 SGOT/AST (test code = AST) IUnit/L 15-37 SGPT/ALT (test code = ALT) IUnit/L 15-65 ALKALINE PHOSPHATASE TOTAL (test IUnit/L 20-125 code = ALKP) CREATINE KINASE (CK)2019-10-17 23:44:00 Test Item Value Reference Range Interpretation Comments CREATINE KINASE (CK) (test code = CK) 35-232 [id number] 23:44:00 Test Item Value Reference Range Interpretation Comments ACETAMINOPHEN (test code = ACET) ug/mL 10-30 [id number] 23:44:00 Test Item Value Reference Range Interpretation Comments SALICYLATE (test code = DAVE) mg/dL 2.8-20.0 VALPROIC ACID (DEPAKENE)2019-10-17 23:44:00 Test Item Value Reference Range Interpretation Comments VALPROIC ACID (DEPAKENE) (test code = mcg/mL 50.0-100.0 VALP) [id number] 23:44:00 Test Item Value Reference Range Interpretation Comments ALCOHOL (test code = ALC) G/dL <0.003 URINALYSIS [id number] 23:38:00 Test Item Value Reference Range Interpretation Comments UA COLOR (test code = COLU) STRAW YEL/STRAW UA APPEARANCE (test code = CLEAR CLEAR APPU) UA GLUCOSE DIPSTICK (test 1+ NEGATIVE A code = DGLUU) UA BILIRUBIN DIPSTICK (test NEGATIVE NEGATIVE code = BILU) UA KETONE DIPSTICK (test NEGATIVE NEGATIVE code = KETU) UA SPECIFIC GRAVITY (test 1.002 1.005-1.030 L code = SGU) UA BLOOD DIPSTICK (test NEGATIVE NEGATIVE code = GERSON) UA PH DIPSTICK (test code = 6.0 5.0-7.0 N MITCHEL) UA PROTEIN DIPSTICK (test NEGATIVE NEGATIVE code = PROU) UA UROBILINIOGEN DIPSTICK 0.2 mg/dL 0.2-1.0 (test code = URO) UA NITRITE DIPSTICK (test NEGATIVE NEGATIVE code = KAL) UA LEUKOCYTE ESTERASE NEGATIVE NEGATIVE DIPSTICK (test code = LEUU) UA RBC (test code = RBCU) NONE SEEN RBC/HPF 0-3 UA WBC NO REFLEX (test code 0-3 WBC/HPF 0-3 = WBCUCL) UA BACTERIA (test code = NONE SEEN /HPF NONE SEEN BACU) UA SQUAMOUS CELLS (test NONE SEEN /HPF NONE SEEN code = SQU) CBC W/O [id number] 23:30:00 Test Item Value Reference Range Interpretation Comments WHITE BLOOD CELL (test code = 10.71 x10 3/uL 4.5-11.0 N WBC) RED BLOOD CELL (test code = 4.65 x10 6/uL 4.00-5.60 N RBC) HEMOGLOBIN (test code = HGB) 14.7 g/dL 12.5-16.9 N HEMATOCRIT (test code = HCT) 42.1 % 37.5-50.7 N MEAN CELL VOLUME (test code = 90.5 fL 81.0-99.0 N MCV) MEAN CELL HGB (test code = 31.6 pg 27.0-33.0 N MCH) MEAN CELL HGB CONCETRATION 34.9 g/dL 33.0-37.0 N (test code = MCHC) RED CELL DISTRIBUTION WIDTH CV 12.8 % 11.5-14.5 N (test code = RDW) RED CELL DISTRIBUTION WIDTH SD 42.3 fL 37.0-54.0 N (test code = RDW-SD) PLATELET COUNT (test code = 268 x10 3/uL 150-400 N PLT) MEAN PLATELET VOLUME (test 9.4 fL 7.0-9.0 H code = MPV) BASIC METABOLIC [id number] 09:01:00 Test Item Value Reference Range Interpretation Comments SODIUM (test code = NA) 136 mEq/L 134-147 N POTASSIUM (test code = 4.4 mEq/L 3.4-5.0 N K) CHLORIDE (test code = 104 mEq/L 100-108 N CL) CARBON DIOXIDE (test 29 mEq/L 21-33 N code = CO2) ANION GAP (test code = 7 0-20 N GAP) GLUCOSE (test code = 251 mg/dL 70-110 H GLU) BLOOD UREA NITROGEN 14 mg/dL 7-18 N (test code = BUN) GLOMERULAR FILTRATION 91.7 95-105 L Units of measure = RATE (test code = GFR) ml/mi n/1.73 m2 CREATININE (test code = 0.9 mg/dL 0.6-1.3 N CREAT) CALCIUM (test code = 8.8 mg/dL 8.0-10.5 N CA) HEPATIC FUNCTION [id number] 09:01:00 Test Item Value Reference Range Interpretation Comments TOTAL PROTEIN (test code = PROT) 7.4 g/dL 6.4-8.2 N ALBUMIN (test code = ALB) 3.70 g/dL 3.4-5.0 N BILIRUBIN TOTAL (test code = 0.3 MG/DL <1.5 N BILT) BILIRUBIN DIRECT (test code = < 0.10 MG/DL 0.0-0.30 N BILD) BILIRUBIN INDIRECT (test code = 0.20 MG/DL BILIND) SGOT/AST (test code = AST) 19 IUnit/L 15-37 N SGPT/ALT (test code = ALT) 34 IUnit/L 15-65 N ALKALINE PHOSPHATASE TOTAL (test 105 IUnit/L 20-125 N code = ALKP) [id number] 09:01:00 Test Item Value Reference Range Interpretation Comments ACETAMINOPHEN (test code = ACET) < 2 ug/mL 10-30 L [id number] 09:01:00 Test Item Value Reference Range Interpretation Comments SALICYLATE (test code = DAVE) 5.4 mg/dL 2.8-20.0 N [id number] 09:01:00 Test Item Value Reference Range Interpretation Comments ALCOHOL (test code < 0.003 G/dL <0.003 Ethyl Alc ohol = ALC) Interpretation: 0.100 gm/dL - Legally Intoxic ated 0.300-0.40 0 gm/dL - Severely Into xicated >0.400 gm/dL - Potentially LethalResults a re for Medical purpose s only, and not for Leg al orEmployment ev aluation purposes. BASIC METABOLIC [id number] 08:57:00 Test Item Value Reference Range Interpretation Comments SODIUM (test code = NA) 136 mEq/L 134-147 N POTASSIUM (test code = 4.4 mEq/L 3.4-5.0 N K) CHLORIDE (test code = 104 mEq/L 100-108 N CL) CARBON DIOXIDE (test 29 mEq/L 21-33 N code = CO2) ANION GAP (test code = 7 0-20 N GAP) GLUCOSE (test code = 251 mg/dL 70-110 H GLU) BLOOD UREA NITROGEN 14 mg/dL 7-18 N (test code = BUN) GLOMERULAR FILTRATION 91.7 95-105 L Units of measure = RATE (test code = GFR) ml/mi n/1.73 m2 CREATININE (test code = 0.9 mg/dL 0.6-1.3 N CREAT) CALCIUM (test code = 8.8 mg/dL 8.0-10.5 N CA) HEPATIC FUNCTION [id number] 08:57:00 Test Item Value Reference Range Interpretation Comments TOTAL PROTEIN (test code = PROT) 7.4 g/dL 6.4-8.2 N ALBUMIN (test code = ALB) 3.70 g/dL 3.4-5.0 N BILIRUBIN TOTAL (test code = 0.3 MG/DL <1.5 N BILT) BILIRUBIN DIRECT (test code = < 0.10 MG/DL 0.0-0.30 N BILD) BILIRUBIN INDIRECT (test code = 0.20 MG/DL BILIND) SGOT/AST (test code = AST) 19 IUnit/L 15-37 N SGPT/ALT (test code = ALT) 34 IUnit/L 15-65 N ALKALINE PHOSPHATASE TOTAL (test 105 IUnit/L 20-125 N code = ALKP) [id number] 08:57:00 Test Item Value Reference Range Interpretation Comments ACETAMINOPHEN (test code = ACET) ug/mL 10-30 [id number] 08:57:00 Test Item Value Reference Range Interpretation Comments SALICYLATE (test code = DAVE) 5.4 mg/dL 2.8-20.0 N [id number] 08:57:00 Test Item Value Reference Range Interpretation Comments ALCOHOL (test code < 0.003 G/dL <0.003 Ethyl Alc ohol = ALC) Interpretation: 0.100 gm/dL - Legally Intoxic ated 0.300-0.40 0 gm/dL - Severely Into xicated >0.400 gm/dL - Potentially LethalResults a re for Medical purpose s only, and not for Leg al orEmployment ev aluation purposes. DRUGS OF ABUSE SCREEN [id number] 08:56:00 Test Item Value Reference Range Interpretation Comments URN COCAINE (test code NEGATIVE NEGATIVE = COCAURN) URN CANNABINOIDS (test NEGATIVE NEGATIVE code = CANNABURN) URN AMPHETAMINE (test NEGATIVE NEGATIVE code = AMPHETURN) URN BARBITURATE (test NEGATIVE NEGATIVE code = BARBITURN) URN BENZODIAZEPINE NEGATIVE NEGATIVE Cut-off v alue:200 (test code = BENZOURN) ng/mL URN OPIATES (test code NEGATIVE NEGATIVE Cut-o ff value:2000 = OPIATURN) ng/mL URN PHENCYCLIDINE (PCP) NEGATIVE NEGATIVE Cuto ffs:Barbiturates (test code = PHENCURN) 200 ng/mLBenzodiaze pines 200 ng/ mLTHC Cannabinoids 50 ng/mLOpiates(Mo rphine) 2000 ng/mLAmphetamin e 1000 ng/mLCocaine 300 ng/ mLPCP phencyclidine 25 ng/mL Unconf irmed screening resul ts shouldnot be us ed for non-medical pur poses. BASIC METABOLIC [id number] 08:45:00 Test Item Value Reference Range Interpretation Comments SODIUM (test code = NA) 136 mEq/L 134-147 N POTASSIUM (test code = K) 4.4 mEq/L 3.4-5.0 N CHLORIDE (test code = CL) 104 mEq/L 100-108 N CARBON DIOXIDE (test code = CO2) 29 mEq/L 21-33 N ANION GAP (test code = GAP) 7 0-20 N GLUCOSE (test code = GLU) 251 mg/dL 70-110 H BLOOD UREA NITROGEN (test code = 14 mg/dL 7-18 N BUN) GLOMERULAR FILTRATION RATE (test 95-105 code = GFR) CREATININE (test code = CREAT) mg/dL 0.6-1.3 CALCIUM (test code = CA) 8.8 mg/dL 8.0-10.5 N HEPATIC FUNCTION [id number] 08:45:00 Test Item Value Reference Range Interpretation Comments TOTAL PROTEIN (test code = PROT) g/dL 6.4-8.2 ALBUMIN (test code = ALB) g/dL 3.4-5.0 BILIRUBIN TOTAL (test code = BILT) MG/DL <1.5 BILIRUBIN DIRECT (test code = BILD) MG/DL 0.0-0.30 SGOT/AST (test code = AST) IUnit/L 15-37 SGPT/ALT (test code = ALT) IUnit/L 15-65 ALKALINE PHOSPHATASE TOTAL (test IUnit/L 20-125 code = ALKP) [id number] 08:45:00 Test Item Value Reference Range Interpretation Comments ACETAMINOPHEN (test code = ACET) ug/mL 10-30 [id number] 08:45:00 Test Item Value Reference Range Interpretation Comments SALICYLATE (test code = DAVE) mg/dL 2.8-20.0 [id number] 08:45:00 Test Item Value Reference Range Interpretation Comments ALCOHOL (test code = ALC) G/dL <0.003 CBC W/O [id number] 08:30:00 Test Item Value Reference Range Interpretation Comments WHITE BLOOD CELL (test code = 8.94 x10 3/uL 4.5-11.0 N WBC) RED BLOOD CELL (test code = 4.66 x10 6/uL 4.00-5.60 N RBC) HEMOGLOBIN (test code = HGB) 14.5 g/dL 12.5-16.9 N HEMATOCRIT (test code = HCT) 43.2 % 37.5-50.7 N MEAN CELL VOLUME (test code = 92.7 fL 81.0-99.0 N MCV) MEAN CELL HGB (test code = MCH) 31.1 pg 27.0-33.0 N MEAN CELL HGB CONCETRATION 33.6 g/dL 33.0-37.0 N (test code = MCHC) RED CELL DISTRIBUTION WIDTH CV 13.1 % 11.5-14.5 N (test code = RDW) RED CELL DISTRIBUTION WIDTH SD 44.4 fL 37.0-54.0 N (test code = RDW-SD) PLATELET COUNT (test code = 283 x10 3/uL 150-400 N PLT) MEAN PLATELET VOLUME (test code 10.1 fL 7.0-9.0 H = MPV) - XR CHEST 1 [id number] 07:19:00 FAX: Willy Dahl MD [phone] [place]: FE St: PRE Name: BRITT FUENTES [facility] : 1975 Age/S: 44/M [address] [place] [address] Unit#: [id number] Loc: [place] [address] Phys: Willy Dahl MD Acct: [id number] Dis Date: Status: PRE ER PHONE #: [phone] Exam Date: 10/07/2019718 FAX #: [phone] Reason: SOB EXAMS: CPT CODE: [id number] XR CHEST 1 V 11859 Study: - XR CHEST 1 V 10/07/2019 6:58 AM PatientName: BRITT FUENTES MR: [id number] : 1975; Age: 44 years y/o Male Ordering Physician: Willy Dahl MD Clinical Indication: SOB Comparison: None FINDINGS LUNGS: The lungs are clear of consolidation, pleural effusion, and pneumothorax. HEART AND MEDIASTINUM: Normal size heart. LINES: None. OSSEOUS STRUCTURES: No fracture, dislocation, or suspicious focal osseous lesion. OTHER: None. IMPRESSION: No acute abnormality as above discussed. SL: [id number] at 0719 Reported and signed by:Spike Brooks M.D. 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[facility] COMPREHENSIVE METABOLIC [id number] 15:35:00 Test Item Value Reference Range Interpretation Comments SODIUM (test code = NA) 135 mEq/L 134-147 N POTASSIUM (test code = 4.0 mEq/L 3.4-5.0 N K) CHLORIDE (test code = 101 mEq/L 100-108 N CL) CARBON DIOXIDE (test 24 mEq/L 21-33 N code = CO2) ANION GAP (test code = 14 0-20 N GAP) GLUCOSE (test code = 406 mg/dL 70-110 H GLU) BLOOD UREA NITROGEN 7 mg/dL 7-18 N (test code = BUN) GLOMERULAR FILTRATION 81.6 95-105 L Units of measure = RATE (test code = GFR) ml/mi n/1.73 m2 CREATININE (test code = 1.0 mg/dL 0.6-1.3 N CREAT) TOTAL PROTEIN (test 6.9 g/dL 6.4-8.2 N code = PROT) ALBUMIN (test code = 3.30 g/dL 3.4-5.0 L ALB) CALCIUM (test code = 8.4 mg/dL 8.0-10.5 N CA) BILIRUBIN TOTAL (test 0.1 MG/DL <1.5 N code = BILT) SGOT/AST (test code = 14 IUnit/L 15-37 L AST) SGPT/ALT (test code = 29 IUnit/L 15-65 N ALT) ALKALINE PHOSPHATASE 90 IUnit/L 20-125 N TOTAL (test code = ALKP) [id number] 15:35:00 Test Item Value Reference Range Interpretation Comments ALCOHOL (test code < 0.003 G/dL <0.003 Ethyl Alc ohol = ALC) Interpretation: 0.100 gm/dL - Legally Intoxic ated 0.300-0.40 0 gm/dL - Severely Into xicated >0.400 gm/dL - Potentially LethalResults a re for Medical purpose s only, and not for Leg al orEmployment ev aluation purposes. COMPREHENSIVE METABOLIC [id number] 15:30:00 Test Item Value Reference Range Interpretation Comments SODIUM (test code = NA) 135 mEq/L 134-147 N POTASSIUM (test code = K) 4.0 mEq/L 3.4-5.0 N CHLORIDE (test code = CL) 101 mEq/L 100-108 N CARBON DIOXIDE (test code = CO2) 24 mEq/L 21-33 N ANION GAP (test code = GAP) 14 0-20 N GLUCOSE (test code = GLU) 406 mg/dL 70-110 H BLOOD UREA NITROGEN (test code = 7 mg/dL 7-18 N BUN) GLOMERULAR FILTRATION RATE (test 95-105 code = GFR) CREATININE (test code = CREAT) mg/dL 0.6-1.3 TOTAL PROTEIN (test code = PROT) g/dL 6.4-8.2 ALBUMIN (test code = ALB) g/dL 3.4-5.0 CALCIUM (test code = CA) 8.4 mg/dL 8.0-10.5 N BILIRUBIN TOTAL (test code = BILT) MG/DL <1.5 SGOT/AST (test code = AST) IUnit/L 15-37 SGPT/ALT (test code = ALT) IUnit/L 15-65 ALKALINE PHOSPHATASE TOTAL (test IUnit/L 20-125 code = ALKP) [id number] 15:30:00 Test Item Value Reference Range Interpretation Comments ALCOHOL (test code = ALC) G/dL <0.003 DRUGS OF ABUSE SCREEN [id number] 15:30:00 Test Item Value Reference Range Interpretation Comments URN COCAINE (test code NEGATIVE NEGATIVE = COCAURN) URN CANNABINOIDS (test NEGATIVE NEGATIVE code = CANNABURN) URN AMPHETAMINE (test NEGATIVE NEGATIVE code = AMPHETURN) URN BARBITURATE (test NEGATIVE NEGATIVE code = BARBITURN) URN BENZODIAZEPINE NEGATIVE NEGATIVE Cut-off v alue:200 (test code = BENZOURN) ng/mL URN OPIATES (test code NEGATIVE NEGATIVE Cut-o ff value:2000 = OPIATURN) ng/mL URN PHENCYCLIDINE (PCP) NEGATIVE NEGATIVE Cuto ffs:Barbiturates (test code = PHENCURN) 200 ng/mLBenzodiaze pines 200 ng/ mLTHC Cannabinoids 50 ng/mLOpiates(Mo rphine) 2000 ng/mLAmphetamin e 1000 ng/mLCocaine 300 ng/ mLPCP phencyclidine 25 ng/mL Unconf irmed screening resul ts shouldnot be us ed for non-medical pur poses. URINALYSIS [id number] 15:29:00 Test Item Value Reference Range Interpretation Comments UA COLOR (test code = COLU) STRAW YEL/STRAW UA APPEARANCE (test code = CLEAR CLEAR APPU) UA GLUCOSE DIPSTICK (test code 3+ NEGATIVE A = DGLUU) UA BILIRUBIN DIPSTICK (test NEGATIVE NEGATIVE code = BILU) UA KETONE DIPSTICK (test code NEGATIVE NEGATIVE = KETU) UA SPECIFIC GRAVITY (test code 1.008 1.005-1.030 N = SGU) UA BLOOD DIPSTICK (test code = NEGATIVE NEGATIVE GERSON) UA PH DIPSTICK (test code = 5.0 5.0-7.0 N MITCHEL) UA PROTEIN DIPSTICK (test code NEGATIVE NEGATIVE = PROU) UA UROBILINIOGEN DIPSTICK 0.2 mg/dL 0.2-1.0 (test code = URO) UA NITRITE DIPSTICK (test code NEGATIVE NEGATIVE = KAL) UA LEUKOCYTE ESTERASE DIPSTICK NEGATIVE NEGATIVE (test code = LEUU) UA RBC (test code = RBCU) 0-3 RBC/HPF 0-3 UA WBC NO REFLEX (test code = 0-3 WBC/HPF 0-3 WBCUCL) UA BACTERIA (test code = BACU) NONE SEEN /HPF NONE SEEN UA SQUAMOUS CELLS (test code = 0-5 /HPF NONE SEEN SQU) CBC W/AUTO [id number] 15:16:00 Test Item Value Reference Range Interpretation Comments WHITE BLOOD CELL (test code = 7.44 x10 3/uL 4.5-11.0 N WBC) RED BLOOD CELL (test code = 4.20 x10 6/uL 4.00-5.60 N RBC) HEMOGLOBIN (test code = HGB) 13.4 g/dL 12.5-16.9 N HEMATOCRIT (test code = HCT) 39.2 % 37.5-50.7 N MEAN CELL VOLUME (test code = 93.3 fL 81.0-99.0 N MCV) MEAN CELL HGB (test code = MCH) 31.9 pg 27.0-33.0 N MEAN CELL HGB CONCETRATION 34.2 g/dL 33.0-37.0 N (test code = MCHC) RED CELL DISTRIBUTION WIDTH CV 12.9 % 11.5-14.5 N (test code = RDW) RED CELL DISTRIBUTION WIDTH SD 43.8 fL 37.0-54.0 N (test code = RDW-SD) PLATELET COUNT (test code = 324 x10 3/uL 150-400 N PLT) MEAN PLATELET VOLUME (test code 10.1 fL 7.0-9.0 H = MPV) NEUTROPHIL % (test code = NT%) 62.9 % 56.0-77.0 N IMMATURE GRANULOCYTE % (test 0.7 % 0.0-2.0 N code = IG%) LYMPHOCYTE % (test code = LY%) 26.2 % 14.0-32.0 N MONOCYTE % (test code = MO%) 8.1 % 4.8-9.0 N EOSINOPHIL % (test code = EO%) 1.3 % 0.3-3.7 N BASOPHIL % (test code = BA%) 0.8 % 0.0-2.0 N NUCLEATED RBC % (test code = 0.0 % 0-0 N NRBC%) NEUTROPHIL # (test code = NT#) 4.68 x10 3/uL 2.0-7.6 N IMMATURE GRANULOCYTE # (test 0.05 x10 3/uL 0.00-0.03 H code = IG#) LYMPHOCYTE # (test code = LY#) 1.95 x10 3/uL 1.0-3.8 N MONOCYTE # (test code = MO#) 0.60 x10 3/uL 0.1-0.8 N EOSINOPHIL # (test code = EO#) 0.10 x10 3/uL 0.0-0.2 N BASOPHIL # (test code = BA#) 0.06 x10 3/uL 0.0-0.2 N NUCLEATED RBC # (test code = 0.00 x10 3/uL 0.0-0.1 N NRBC#) MANUAL DIFF REQUIRED (test code NO = MDIFF) WHOLE BLOOD [id number] 11:55:00 Test Item Value Reference Range Interpretation Comments WHOLE BLOOD GLUCOSE 132 MG/DL 70-99 Fastin g glucose (test code = POC GLU) normal <100 MG/DL- [facility] recommend ation WHOLE BLOOD [id number] 07:00:00 Test Item Value Reference Range Interpretation Comments WHOLE BLOOD GLUCOSE 342 MG/DL 70-99 H Fastin g glucose (test code = POC GLU) normal <100 MG/DL- [facility] recommend ation URINE DRUG [id number] 01:31:00 Test Item Value Reference Range Interpretation Comments AMPHET (test code = NEGATIVE NEGATIVE This is an unconfirmed BAMP) screening. Res ult are to be used for medical purposes (treat ment) only. Not inte nded for non-medical pur poses. Cut-off concent ration for a positive result for each drug: Amphetamine - 1 ,000 ng/ml Barbitura te - 200 ng/ml Benzodiaz epine - 200 ng/ml Canna binoids - 50 ng/ml Coca ine - 300 ng/ml Opiat es - 300 ng/ml PCP - 25 ng/ml BARBITURATES (test NEGATIVE NEGATIVE code = BBAR) BENZO (test code = NEGATIVE NEGATIVE BBENZ) CANNABS (test code = NEGATIVE NEGATIVE BCANN) COCAINE (test code = NEGATIVE NEGATIVE BCOC) OPIATES (test code = NEGATIVE NEGATIVE BOPI) PCP (test code = NEGATIVE NEGATIVE BMTPCP) [id number] 00:29:00 Test Item Value Reference Range Interpretation Comments GLUCOSE (test code = URGLU) >=1000 MG/DL NEG-100 BILIRUBN (test code = URBILI) NEGATIVE NEGATIVE KETONE (test code = URKET) NEGATIVE MG/DL NEGATIVE BLOOD (test code = URBLD) NEGATIVE UR PH (test code = URPH) 6.0 5.0-7.5 PROTEIN (test code = URPRO) NEGATIVE MG/DL NEGATIVE NITRITES (test code = URNIT) NEGATIVE NEGATIVE UROBILINGEN (test code = 1.0 EU/DL 0.2-1.0 URURO) LEUKOCYT (test code = URLEU) NEGATIVE NEGATIVE UA COLOR (test code = UA YELLOW YELLOW COLOR) CLARITY (test code = CLARITY) CLEAR CLEAR SP GRAV (test code = URSPGRAV) 1.026 1.000-1.025 H UAMICRO (test code = UAMICRO) NO [id number] 23:22:00 Test Item Value Reference Range Interpretation Comments SODIUM (test code = 134 MMOL/L 137-145 L NA) K+ (test code = 3.7 MMOL/L 3.5-5.1 PLEASE NOTE NEW KSERUM) REFERENCE RANGE (S) IN EFFECT EFFECTIVE 010 - NEW ANALYZER (V ITROS 5600) CHLORIDE (test code 101 MMOL/L 98-107 = CL) CO2 (test code = 28 MMOL/L 22-30 CO2) BUN (test code = 13 MG/DL 9-20 BUN) CREA (test code = 0.6 MG/DL 0.8-1.5 L CREA) GLUCOSE (test code 285 MG/DL 70-99 H Fasting glucose = GLUCOSE) normal <100 MG/ DL- [facility] recommendation* * CALCIUM (test code 9.4 MG/DL 8.4-10.2 = CABLOOD) TOTPROT (test code 6.5 G/DL 6.3-8.2 = TOTPROT) ALBUMIN (test code 3.7 G/DL 3.5-5.0 = ALBSERUM) BILITOT (test code 0.3 MG/DL 0.2-1.3 = BILITOT) AST (test code = 25 U/L 15-46 AST) PHOSALK (test code 75 U/L 38-126 = PHOSALK) ALTV (test code = 20 U/L 13-69 ALTV) GFR (test code = 156 A GFR of >9 0 GFR) mL/min/1.73m2 mL/min/1.73m2 is considered norm al. CREATINE [id number] 23:22:00 Test Item Value Reference Range Interpretation Comments CK (test code = CK) 335 U/L 55-170 H BLOOD ALCOHOL (ETOH)[id number] 23:21:00 Test Item Value Reference Range Interpretation Comments ALCOHOL BLOOD LEVEL <10 MG/DL 0-10 Results are to be used (test code = ALC BLD) for me dical purposes (treatment) onl y. Not intended for no n medical purpose s. [id number] 23:06:00 Test Item Value Reference Range Interpretation Comments WBC (test code = 7.3 K/UL 3.5-10.9 WBC) RBC (test code = 4.00 M/UL 4.3-5.7 L RBC) HGB (test code = 12.7 G/DL 13.0-17.9 L HGB) HCT (test code = 37.0 % 38-52 L HCT) MCV (test code = 92.5 FL 80-98 MCV) MCH (test code = 31.8 PG 28-32 MCH) MCHC (test code = 34.3 G/DL 32.5-36.5 [facility]) RDW (test code = 13.2 % 11.5-14.5 RDW) PLT (test code = 236 K/UL 150-450 PLT) MPV (test code = 10.1 FL 7.4-10.4 MPV) MANDIFF (test code = NO MANDIFF) SCAN (test code = NO SCAN) NEUT% (test code = 52.3 % 40-75 NEUT%) LYMPH% (test code = 33.3 % 24-44 LYMPH%) MONO% (test code = 9.9 % 0-13 MONO%) EOS% (test code = 2.9 % 0-4 EOS%) BASO % (test code = 1.2 % 0-2 BASO%) IG (test code = IG) 0 % 0-1 IG% (test code = 0.4 % 0-1 IG% = Metam yelocytes, IG%) Myelocytes, and Promyelocytes. (Immature neutr ophils not including " bands".) > 3% IG indic ates risk of sepsis NRBC% (test code = 0 /100 WBC NRBC%) ABS NEUT (test code 3.8 K/UL 1.2-7.2 = NEUT) Urinalysis specimen collection [id number] 18:25:00 Test Item Value Reference Range Interpretation Comments Urine Source (test code = 04763-8) [facility] by [id number] 18:25:00 Test Item Value Reference Range Interpretation Comments Urine Color (test code = 21126-2) Lt Yellow [facility] clarity [id number] 18:25:00 Test Item Value Reference Range Interpretation Comments Urine Appearance (test code = 64679-3) Clear [facility] pH measurement by automated test [id number] 18:25:00 Test Item Value Reference Range Interpretation Comments Urine pH (test code = 35036-6) 5.[address] [facility] gravity of Urine by Automated test strip 2019-08-25 18:25:00 Test Item Value Reference Range Interpretation Comments Urine Specific [place] (test code = > 1.030 93029-6) [facility] protein measurement by automated test strip (mass/volume)2019-08-25 18:25:00 Test Item Value Reference Range Interpretation Comments Urine Protein (test code = Negative mg/dL 69967-4) [facility] glucose measurement by automated test strip (mass/volume)2019-08-25 18:25:00 Test Item Value Reference Range Interpretation Comments Urine Glucose (UA) (test code = >1000 mg/dL 95983-0) [facility] ketones measurement by automated test strip (mass/volume)2019-08-25 18:25:00 Test Item Value Reference Range Interpretation Comments Urine Ketones (test code = Negative mg/dL 94048-7) [facility] erythrocytes count by automated test strip (number/volume)2019-08-25 18:25:00 Test Item Value Reference Range Interpretation Comments Urine Occult Blood (test code = Negative 20857-4) [facility] nitrite detection by automated test strip 2019-08-25 18:25:00 Test Item Value Reference Range Interpretation Comments Urine Nitrite (test code = 90072-6) Negative [facility] total bilirubin measurement by automated test strip (mass/volume)2019-08-25 18:25:00 Test Item Value Reference Range Interpretation Comments Urine Bilirubin (test code = Negative mg/dL 03918-7) [facility] urobilinogen measurement by automated test strip (mass/volume)2019-08-25 18:25:00 Test Item Value Reference Range Interpretation Comments Urine Urobilinogen (test code Negative mg/dL = 99142-2) [facility] leukocytes count by automated test strip (number/volume)2019-08-25 18:25:00 Test Item Value Reference Range Interpretation Comments Urine Leukocyte Esterase Negative {Janie}/uL (test code = 53719-9) [facility] of [id number] 18:25:00 Test Item Value Reference Range Interpretation Comments Microscopic Urinalysis (T) (test code = ----- 09414-8) [facility] sediment erythrocyte count by microscopy (number/high power field)2019-08-25 18:25:00 Test Item Value Reference Range Interpretation Comments Urine RBC (test code = 63287-0) 0-2 /[HPF] [facility] sediment leukocyte count by microscopy (number/high power field)2019-08-25 18:25:00 Test Item Value Reference Range Interpretation Comments Urine WBC (test code = 5821-4) 0-5 /[HPF] [facility] sediment epithelial cell count by microscopy (number/high power field)2019-08-25 18:25:00 Test Item Value Reference Range Interpretation Comments Urine Epithelial Cells (test None Seen /[HPF] code = 5787-7) [facility] sediment crystal count by microscopy (number/high power field)2019-08-25 18:25:00 Test Item Value Reference Range Interpretation Comments Urine Crystals (test code = None Seen /[HPF] 42159-8) [facility] sediment bacteria count by microscopy (number/high power field)2019-08-25 18:25:00 Test Item Value Reference Range Interpretation Comments Urine Bacteria (test code = None Seen /[HPF] 5769-5) [facility] sediment casts count by microscopy (number/low power field)2019-08-25 18:25:00 Test Item Value Reference Range Interpretation Comments Urine Casts (test code = None Seen /[LPF] 9842-6) [facility] sediment hyaline cast count by microscopy (number/low power field)2019-08-25 18:25:00 Test Item Value Reference Range Interpretation Comments Urine Hyaline Casts (test None Seen /[LPF] code = 5796-8) [facility] ElizabethYeast detection in urine sediment by light microscopy 2019-08-25 18:25:00 Test Item Value Reference Range Interpretation Comments Urine Yeast (test code = None Seen /[HPF] 28532-6) [facility] 18:25:00 Test Item Value Reference Range Interpretation Comments Urinalysis Comment (test code = 8262-8) * [facility] 18:25:00 Test Item Value Reference Range Interpretation Comments Urine Culture Indicated (test code = Not Ind 8264-4) [facility] ElizabethAutomated blood leukocyte count (number/volume) 2019-08-25 02:07:00 Test Item Value Reference Range Interpretation Comments White Blood Count (test code = 8.9 10*3/uL 6690-2) [facility] erythrocytes automated count (number/volume) 2019-08-25 02:07:00 Test Item Value Reference Range Interpretation Comments Red Blood Count (test code = 4.10 10*6/uL 789-8) [facility]Blood hemoglobin measurement (mass/volume)2019-08-25 02:07:00 Test Item Value Reference Range Interpretation Comments Hemoglobin (test code = 718-7) 13.1 g/dL [facility] ElizabethAutomated blood hematocrit (volume fraction)2019-08-25 02:07:00 Test Item Value Reference Range Interpretation Comments Hematocrit (test code = 4544-3) 37.7 % [facility] ElizabethAutomated erythrocyte mean corpuscular volume (MCV) tafjzajqqvt5786-13-43 02:07:00 Test Item Value Reference Range Interpretation Comments Mean Corpuscular Volume (test code = 92 fL 787-2) [facility] ElizabethAutomated erythrocyte mean corpuscular hemoglobin (mass per erythrocyte)2019-08-25 02:07:00 Test Item Value Reference Range Interpretation Comments Mean Corpuscular Hemoglobin (test 32.0 pg code = 785-6) [facility] ElizabethAutomated erythrocyte mean corpuscular hemoglobin concentration measurement (mass/[id number] 02:07:00 Test Item Value Reference Range Interpretation Comments Mean Corpuscular Hemoglobin Concent 34.7 g/dL (test code = 786-4) [facility]Automated erythrocyte distribution width vyokr9991-19-62 02:07:00 Test Item Value Reference Range Interpretation Comments Red Cell Distribution Width (test code 12.6 % = 788-0) [facility] ElizabethAutomated blood platelet count (count/volume)2019-08-25 02:07:00 Test Item Value Reference Range Interpretation Comments Platelet Count (test code = 228 10*3/uL 777-3) [facility] ElizabethAutomated blood platelet mean volume measurement 2019-08-25 02:07:00 Test Item Value Reference Range Interpretation Comments Mean Platelet Volume (test code = 10.0 89639-2) [facility] ElizabethAutomated blood neutrophil count as percentage of total nadufnszol1477-44-84 02:07:00 Test Item Value Reference Range Interpretation Comments Neutrophils (%) (Auto) (test code = 55 % 770-8) [facility] ElizabethAutomated blood immature granulocyte count as percentage of total opscoeanrp6684-39-05 02:07:00 Test Item Value Reference Range Interpretation Comments Immature Granulocyte % (Auto) (test 0 % code = 07775-3) [facility] ElizabethAutomated blood lymphocyte count as percentage of total wymvdyofcf2279-52-64 02:07:00 Test Item Value Reference Range Interpretation Comments Lymphocytes (%) (Auto) (test code = 32 % 736-9) [facility] ElizabethAutomated blood monocyte count as percentage of total pskfwtklno6874-81-52 02:07:00 Test Item Value Reference Range Interpretation Comments Monocytes (%) (Auto) (test code = 9 % 5905-5) [facility] ElizabethAutomated blood eosinophil count as percentage of total hxsafwipgv1814-30-29 02:07:00 Test Item Value Reference Range Interpretation Comments Eosinophils (%) (Auto) (test code = 3 % 713-8) [facility] ElizabethAutomated blood basophil count as percentage of total wvuxzralma3133-42-96 02:07:00 Test Item Value Reference Range Interpretation Comments Basophils (%) (Auto) (test code = 1 % 706-2) [facility] ElizabethAutomated blood nucleated erythrocyte count as percentage of total oaifncxnqq8959-05-38 02:07:00 Test Item Value Reference Range Interpretation Comments Nucleated Red Blood Cells % (test code 0.0 % = 71945-3) [facility] - . ElizabethAutomated blood neutrophil count (number/volume) 2019-08-25 02:07:00 Test Item Value Reference Range Interpretation Comments Neutrophils # (Auto) (test code = 4.9 10*3/uL 751-8) [facility] - . ElizabethAutomated blood immature granulocyte count as percentage of total kxfazzulfa0557-22-73 02:07:00 Test Item Value Reference Range Interpretation Comments Immature Granulocyte # (Auto) 0.0 10*3/uL (test code = 51438-6) [facility] ElizabethAutomated blood lymphocyte count (number/volume) 2019-08-25 02:07:00 Test Item Value Reference Range Interpretation Comments Lymphocytes # (Auto) (test code = 2.8 10*3/uL 731-0) [facility]ass[facility] centerthBlood monocytes automated count (number/volume) 2019-08-25 02:07:00 Test Item Value Reference Range Interpretation Comments Monocytes # (Auto) (test code = 0.8 10*3/uL 742-7) [facility] ElizabethAutomated blood eosinophil jrqft5177-77-51 02:07:00 Test Item Value Reference Range Interpretation Comments Eosinophils # (Auto) (test code = 0.3 10*3/uL 711-2) [facility] ElizabethAutomated blood basophil count (number/volume)2019-08-25 02:07:00 Test Item Value Reference Range Interpretation Comments Basophils # (Auto) (test code = 0.1 10*3/uL 704-7) [facility]. ElizabethAutomated blood nucleated erythrocyte count (count/volume)2019-08-25 02:07:00 Test Item Value Reference Range Interpretation Comments Nucleated Red Blood Cells # 0.00 10*3/uL (test code = 771-6) [facility] ElizabethService comment [id number] 02:07:00 Test Item Value Reference Range Interpretation Comments Manual Differential (test code = Not Ind 8265-1) [facility] ElizabethSerum or plasma sodium measurement (moles/volume) 2019-08-25 02:07:00 Test Item Value Reference Range Interpretation Comments Sodium Level (test code = 2951-2) 137 mmol/L [facility] ElizabethSerum or plasma potassium measurement (moles/volume) 2019-08-25 02:07:00 Test Item Value Reference Range Interpretation Comments Potassium Level (test code = 3.4 mmol/L 2823-3) [facility] ElizabethSerum or plasma chloride measurement (moles/volume) 2019-08-25 02:07:00 Test Item Value Reference Range Interpretation Comments Chloride Level (test code = 104 mmol/L 2074-0) [facility] ElizabethSerum or plasma total carbon dioxide measurement (moles/volume)2019-08-25 02:07:00 Test Item Value Reference Range Interpretation Comments Carbon Dioxide Level (test code = 25 mmol/L 2027-) [facility] ElizabethSerum or plasma anion gap determination (moles/volume) 2019-08-25 02:07:00 Test Item Value Reference Range Interpretation Comments Anion Gap (test code = 00837-2) 11 [facility] ElizabethSerum or plasma urea nitrogen measurement (mass/volume) 2019-08-25 02:07:00 Test Item Value Reference Range Interpretation Comments Blood Urea Nitrogen (test code = 9 mg/dL 3094-0) [facility]. ElizabethSerum or plasma creatinine measurement (mass/volume) 2019-08-25 02:07:00 Test Item Value Reference Range Interpretation Comments Creatinine (test code = 2160-0) 1.0 mg/dL [facility] [id number] 02:07:00 Test Item Value Reference Range Interpretation Comments Estimat Glomerular Filtration Rate 87 (test code = 27968-9) [facility]. ElizabethSerum or plasma glucose measurement (mass/volume) 2019-08-25 02:07:00 Test Item Value Reference Range Interpretation Comments Glucose Level (test code = 2345-7) 343 mg/dL [facility] ElizabethSerum or plasma calcium measurement (mass/volume) 2019-08-25 02:07:00 Test Item Value Reference Range Interpretation Comments Calcium Level (test code = 38698-5) 8.6 mg/dL [facility] ElizabethSerum or plasma total bilirubin measurement (mass/volume)2019-08-25 02:07:00 Test Item Value Reference Range Interpretation Comments Total Bilirubin (test code = 0.1 mg/dL 1974-) [facility]. ElizabethSerum or plasma aspartate aminotransferase measurement (enzymatic activity/volume)2019-08-25 02:07:00 Test Item Value Reference Range Interpretation Comments Aspartate Amino Transf (AST/SGOT) 17 U/L (test code = 1920-8) [facility]. ElizabethSerum or plasma alanine aminotransferase measurement (enzymatic activity/volume)2019-08-25 02:07:00 Test Item Value Reference Range Interpretation Comments Alanine Aminotransferase (ALT/SGPT) 18 U/L (test code = 1742-6) [facility] ElizabethSerum or plasma protein measurement (mass/volume) 2019-08-25 02:07:00 Test Item Value Reference Range Interpretation Comments Total Protein (test code = 2885-2) 6.6 g/dL [facility] albumin measurement (mass/volume) 2019-08-25 02:07:00 Test Item Value Reference Range Interpretation Comments Albumin (test code = 1751-7) 3.8 g/dL [facility]abeSouth [facility] Hospitalerum or plasma alkaline phosphatase measurement (enzymatic activity/volume)2019-08-25 02:07:00 Test Item Value Reference Range Interpretation Comments Alkaline Phosphatase (test code = 84 U/L 6768-6) [facility] ChildrenCreat[facility] kinase ser/hfxa5375-16-57 02:07:00 Test Item Value Reference Range Interpretation Comments Total Creatine Kinase (test code = 411 U/L 2157-6) [facility] Hospitalerum or plasma free thyroxine (FT4) measurement (mass/volume)2019-08-25 02:07:00 Test Item Value Reference Range Interpretation Comments Free Thyroxine (test code = 0.83 ng/dL 3024-7) [facility] Hospitalerum or plasma thyrotropin measurement with detection limit of 0.005 mIU/L or less (units/volume)2019-08-25 02:07:00 Test Item Value Reference Range Interpretation Comments Thyroid Stimulating Hormone 1.48 u[iU]/mL (TSH) (test code = 20157-4) [facility] ElizabethSerum or plasma triiodothyronine (T3) measurement (mass/volume)2019-08-25 02:07:00 Test Item Value Reference Range Interpretation Comments Total Triiodothyronine (test code 0.95 ng/mL = 3053-6) [facility]. ElizabethSerum or plasma acetaminophen measurement (mass/volume) 2019-08-25 02:07:00 Test Item Value Reference Range Interpretation Comments Acetaminophen Level (test code = < 0.6 ug/mL 3298-7) [facility]. ElizabethSalicylate ser/qdtd9524-46-57 02:07:00 Test Item Value Reference Range Interpretation Comments Salicylates Level (test code = < 5.0 mg/dL 4024-6) [facility] ElizabethSerum or plasma ethanol measurement (mass/volume) 2019-08-25 02:07:00 Test Item Value Reference Range Interpretation Comments Ethyl Alcohol Level (test code = < 10 mg/dL 5643-2) [facility]. ElizabethAutomated blood leukocyte count (number/volume) 2019-08-25 02:07:00 Test Item Value Reference Range Interpretation Comments White Blood Count (test code = 8.9 10*3/uL 6690-2) [facility]. ElizabethBlood erythrocytes automated count (number/volume) 2019-08-25 02:07:00 Test Item Value Reference Range Interpretation Comments Red Blood Count (test code = 4.10 10*6/uL 789-8) [facility]. ElizabethBlood hemoglobin measurement (mass/volume)2019-08-25 02:07:00 Test Item Value Reference Range Interpretation Comments Hemoglobin (test code = 718-7) 13.1 g/dL [facility] ElizabethAutomated blood hematocrit (volume fraction)2019-08-25 02:07:00 Test Item Value Reference Range Interpretation Comments Hematocrit (test code = 4544-3) 37.7 % [facility]. ElizabethAutomated erythrocyte mean corpuscular volume (MCV) onjlrhrajvi1905-56-31 02:07:00 Test Item Value Reference Range Interpretation Comments Mean Corpuscular Volume (test code = 92 fL 787-2) [facility]. ElizabethAutomated erythrocyte mean corpuscular hemoglobin (mass per erythrocyte)2019-08-25 02:07:00 Test Item Value Reference Range Interpretation Comments Mean Corpuscular Hemoglobin (test 32.0 pg code = 785-6) [facility]. ElizabethAutomated erythrocyte mean corpuscular hemoglobin concentration measurement (mass/fxt4806-38-04 02:07:00 Test Item Value Reference Range Interpretation Comments Mean Corpuscular Hemoglobin Concent 34.7 g/dL (test code = 786-4) [facility]. ElizabethAutomated erythrocyte distribution width [id number] 02:07:00 Test Item Value Reference Range Interpretation Comments Red Cell Distribution Width (test code 12.6 % = 788-0) [facility]. ElizabethAutomated blood platelet count (count/volume)2019-08-25 02:07:00 Test Item Value Reference Range Interpretation Comments Platelet Count (test code = 228 10*3/uL 777-3) [facility]. ElizabethAutomated blood platelet mean volume measurement 2019-08-25 02:07:00 Test Item Value Reference Range Interpretation Comments Mean Platelet Volume (test code = 10.0 41286-3) [facility]. ElizabethAutomated blood neutrophil count as percentage of total yblhhyblsp5258-10-75 02:07:00 Test Item Value Reference Range Interpretation Comments Neutrophils (%) (Auto) (test code = 55 % 770-8) [facility]. ElizabethAutomated blood immature granulocyte count as percentage of total ndvfjehseh7675-01-45 02:07:00 Test Item Value Reference Range Interpretation Comments Immature Granulocyte % (Auto) (test 0 % code = 24919-0) [facility]. ElizabethAutomated blood lymphocyte count as percentage of total hkbhjzqstv8401-87-91 02:07:00 Test Item Value Reference Range Interpretation Comments Lymphocytes (%) (Auto) (test code = 32 % 736-9) [facility]. ElizabethAutomated blood monocyte count as percentage of total rtsqkleqrq8487-88-53 02:07:00 Test Item Value Reference Range Interpretation Comments Monocytes (%) (Auto) (test code = 9 % 5905-5) [facility] . ElizabethAutomated blood eosinophil count as percentage of total thcyudwphn8621-47-53 02:07:00 Test Item Value Reference Range Interpretation Comments Eosinophils (%) (Auto) (test code = 3 % 713-8) [facility]. ElizabethAutomated blood basophil count as percentage of total logdyeftlb3165-29-12 02:07:00 Test Item Value Reference Range Interpretation Comments Basophils (%) (Auto) (test code = 1 % 706-2) [facility] nucleated erythrocyte count as percentage of total bwjkjjaynx0443-06-41 02:07:00 Test Item Value Reference Range Interpretation Comments Nucleated Red Blood Cells % (test code 0.0 % = 96832-9) [facility]. ElizabethAutomated blood neutrophil count (number/volume) 2019-08-25 02:07:00 Test Item Value Reference Range Interpretation Comments Neutrophils # (Auto) (test code = 4.9 10*3/uL 751-8) [facility] ElibeAutomated blood immature granulocyte count as percentage of total snmvbdfqml5393-29-73 02:07:00 Test Item Value Reference Range Interpretation Comments Immature Granulocyte # (Auto) 0.0 10*3/uL (test code = 82085-7) [facility]our [facility] hospitalAutomated blood lymphocyte count (number/volume) 2019-08-25 02:07:00 Test Item Value Reference Range Interpretation Comments Lymphocytes # (Auto) (test code = 2.8 10*3/uL 731-0) [facility] monocytes automated count (number/volume) 2019-08-25 02:07:00 Test Item Value Reference Range Interpretation Comments Monocytes # (Auto) (test code = 0.8 10*3/uL 742-7) [facility] ElibeAutomated blood eosinophil mnaut4766-48-71 02:07:00 Test Item Value Reference Range Interpretation Comments Eosinophils # (Auto) (test code = 0.3 10*3/uL 711-2) [facility] ElizabethAutomated blood basophil count (number/volume)2019-08-25 02:07:00 Test Item Value Reference Range Interpretation Comments Basophils # (Auto) (test code = 0.1 10*3/uL 704-7) [facility]. ElizabethAutomated blood nucleated erythrocyte count (count/volume)2019-08-25 02:07:00 Test Item Value Reference Range Interpretation Comments Nucleated Red Blood Cells # 0.00 10*3/uL (test code = 771-6) [facility] comment [id number] 02:07:00 Test Item Value Reference Range Interpretation Comments Manual Differential (test code = Not Ind 8265-1) [facility] ElizabethSerum or plasma sodium measurement (moles/volume) 2019-08-25 02:07:00 Test Item Value Reference Range Interpretation Comments Sodium Level (test code = 2951-2) 137 mmol/L [facility] ElizabethSerum or plasma potassium measurement (moles/volume) 2019-08-25 02:07:00 Test Item Value Reference Range Interpretation Comments Potassium Level (test code = 3.4 mmol/L 2823-3) [facility] ElizabethSerum or plasma chloride measurement (moles/volume) 2019-08-25 02:07:00 Test Item Value Reference Range Interpretation Comments Chloride Level (test code = 104 mmol/L 2075-0) [facility] ElizabethSerum or plasma total carbon dioxide measurement (moles/volume)2019-08-25 02:07:00 Test Item Value Reference Range Interpretation Comments Carbon Dioxide Level (test code = 25 mmol/L 2027-9) [facility] ElizabethSerum or plasma anion gap determination (moles/volume) 2019-08-25 02:07:00 Test Item Value Reference Range Interpretation Comments Anion Gap (test code = 72388-1) 11 [facility] ElizabethSerum or plasma urea nitrogen measurement (mass/volume) 2019-08-25 02:07:00 Test Item Value Reference Range Interpretation Comments Blood Urea Nitrogen (test code = 9 mg/dL 3094-0) [facility] ElizabethSerum or plasma creatinine measurement (mass/volume) 2019-08-25 02:07:00 Test Item Value Reference Range Interpretation Comments Creatinine (test code = 2160-0) 1.0 mg/dL [facility] ElizabethGFR estimate [id number] 02:07:00 Test Item Value Reference Range Interpretation Comments Estimat Glomerular Filtration Rate 87 (test code = 83756-0) [facility] ElizabethSerum or plasma glucose measurement (mass/volume) 2019-08-25 02:07:00 Test Item Value Reference Range Interpretation Comments Glucose Level (test code = 2345-7) 343 mg/dL [facility] or plasma calcium measurement (mass/volume) 2019-08-25 02:07:00 Test Item Value Reference Range Interpretation Comments Calcium Level (test code = 64576-4) 8.6 mg/dL [facility] or plasma total bilirubin measurement (mass/volume)2019-08-25 02:07:00 Test Item Value Reference Range Interpretation Comments Total Bilirubin (test code = 0.1 mg/dL 1975-2) [facility] or plasma aspartate aminotransferase measurement (enzymatic activity/volume)2019-08-25 02:07:00 Test Item Value Reference Range Interpretation Comments Aspartate Amino Transf (AST/SGOT) 17 U/L (test code = 1920-8) [facility] or plasma alanine aminotransferase measurement (enzymatic activity/volume)2019-08-25 02:07:00 Test Item Value Reference Range Interpretation Comments Alanine Aminotransferase (ALT/SGPT) 18 U/L (test code = 1742-6) [facility] or plasma protein measurement (mass/volume) 2019-08-25 02:07:00 Test Item Value Reference Range Interpretation Comments Total Protein (test code = 2885-2) 6.6 g/dL [facility] or plasma albumin measurement (mass/volume) 2019-08-25 02:07:00 Test Item Value Reference Range Interpretation Comments Albumin (test code = 1751-7) 3.8 g/dL [facility] or plasma alkaline phosphatase measurement (enzymatic activity/volume)2019-08-25 02:07:00 Test Item Value Reference Range Interpretation Comments Alkaline Phosphatase (test code = 84 U/L 6768-6) [facility][id number] 02:07:00 Test Item Value Reference Range Interpretation Comments Total Creatine Kinase (test code = 411 U/L 2157-6) [facility] or plasma free thyroxine (FT4) measurement (mass/volume)2019-08-25 02:07:00 Test Item Value Reference Range Interpretation Comments Free Thyroxine (test code = 0.83 ng/dL 3024-7) [facility] or plasma thyrotropin measurement with detection limit of 0.005 mIU/L or less (units/volume)2019-08-25 02:07:00 Test Item Value Reference Range Interpretation Comments Thyroid Stimulating Hormone 1.48 u[iU]/mL (TSH) (test code = 70694-1) [facility] or plasma triiodothyronine (T3) measurement (mass/volume)2019-08-25 02:07:00 Test Item Value Reference Range Interpretation Comments Total Triiodothyronine (test code 0.95 ng/mL = 3053-6) [facility] or plasma acetaminophen measurement (mass/volume) 2019-08-25 02:07:00 Test Item Value Reference Range Interpretation Comments Acetaminophen Level (test code = < 0.6 ug/mL 3298-7) [id number] 02:07:00 Test Item Value Reference Range Interpretation Comments Salicylates Level (test code = < 5.0 mg/dL 4024-6) [facility] or plasma ethanol measurement (mass/volume) 2019-08-25 02:07:00 Test Item Value Reference Range Interpretation Comments Ethyl Alcohol Level (test code = < 10 mg/dL 5643-2) [facility] [id number] 22:40:00 Test Item Value Reference Range Interpretation Comments WHOLE BLOOD GLUCOSE 316 MG/DL 70-99 H Fastin g glucose (test code = POC GLU) normal <100 MG/DL- [facility] recommend ation URINE DRUG [id number] 19:12:00 Test Item Value Reference Range Interpretation Comments AMPHET (test code = NEGATIVE NEGATIVE This is an unconfirmed BAMP) screening. Res ult are to be used for medical purposes (treat ment) only. Not inte nded for non-medical pur poses. Cut-off concent ration for a positive result for each drug: Amphetamine - 1 ,000 ng/ml Barbitura te - 200 ng/ml Benzodiaz epine - 200 ng/ml Canna binoids - 50 ng/ml Coca ine - 300 ng/ml Opiat es - 300 ng/ml PCP - 25 ng/ml BARBITURATES (test NEGATIVE NEGATIVE code = BBAR) BENZO (test code = NEGATIVE NEGATIVE BBENZ) CANNABS (test code = NEGATIVE NEGATIVE BCANN) COCAINE (test code = NEGATIVE NEGATIVE BCOC) OPIATES (test code = NEGATIVE NEGATIVE BOPI) PCP (test code = NEGATIVE NEGATIVE BMTPCP) ER SCREEN FOR HIV 17:58:00 Test Item Value Reference Range Interpretation Comments HIV 1/2 AB (test NEGATIVE NEGATIVE This test i s used for code = SCRN HIV) SCREENING p urposes only. All reactive re sults are prelimenary and confirmation re sults will follow. [id number] 17:27:00 Test Item Value Reference Range Interpretation Comments GLUCOSE (test code = URGLU) >=1000 MG/DL NEG-100 BILIRUBN (test code = URBILI) NEGATIVE NEGATIVE KETONE (test code = URKET) NEGATIVE MG/DL NEGATIVE BLOOD (test code = URBLD) NEGATIVE UR PH (test code = URPH) 6.0 5.0-7.5 PROTEIN (test code = URPRO) NEGATIVE MG/DL NEGATIVE NITRITES (test code = URNIT) NEGATIVE NEGATIVE UROBILINGEN (test code = 0.2 EU/DL 0.2-1.0 URURO) LEUKOCYT (test code = URLEU) NEGATIVE NEGATIVE UA COLOR (test code = UA YELLOW YELLOW COLOR) CLARITY (test code = CLARITY) CLEAR CLEAR SP GRAV (test code = URSPGRAV) 1.029 1.000-1.025 H UAMICRO (test code = UAMICRO) NO WHOLE BLOOD [id number] 17:25:00 Test Item Value Reference Range Interpretation Comments WHOLE BLOOD GLUCOSE 227 MG/DL 70-99 H Fastin g glucose (test code = POC GLU) normal <100 MG/DL- [facility] recommend ation [id number] 15:57:00 Test Item Value Reference Range Interpretation Comments WBC (test code = 13.3 K/UL 3.5-10.9 H WBC) RBC (test code = 4.34 M/UL 4.3-5.7 RBC) HGB (test code = 13.8 G/DL 13.0-17.9 HGB) HCT (test code = 39.9 % 38-52 HCT) MCV (test code = 91.9 FL 80-98 MCV) MCH (test code = 31.8 PG 28-32 MCH) MCHC (test code = 34.6 G/DL 32.5-36.5 MCHC) RDW (test code = 12.6 % 11.5-14.5 RDW) PLT (test code = 278 K/UL 150-450 PLT) MPV (test code = 9.9 FL 7.4-10.4 MPV) MANDIFF (test code = NO MANDIFF) SCAN (test code = NO SCAN) NEUT% (test code = 69.6 % 40-75 NEUT%) LYMPH% (test code = 19.7 % 24-44 L LYMPH%) MONO% (test code = 8.1 % 0-13 MONO%) EOS% (test code = 1.3 % 0-4 EOS%) BASO % (test code = 0.6 % 0-2 BASO%) IG (test code = IG) 0 % 0-1 IG% (test code = 0.7 % 0-1 IG% = Metam yelocytes, IG%) Myelocytes, and Promyelocytes. (Immature neutr ophils not including " bands".) > 3% IG indic ates risk of sepsis NRBC% (test code = 0 /100 WBC NRBC%) ABS NEUT (test code 9.3 K/UL 1.2-7.2 H = NEUT) BLOOD ALCOHOL (ETOH)2019-08-21 15:06:00 Test Item Value Reference Range Interpretation Comments ALCOHOL BLOOD LEVEL 179 MG/DL 0-10 H Results are to be used (test code = ALC BLD) for me dical purposes (treatment) onl y. Not intended for no n medical purpose s. [id number] 15:06:00 Test Item Value Reference Range Interpretation Comments SODIUM (test code = 138 MMOL/L 137-145 NA) K+ (test code = 3.3 MMOL/L 3.5-5.1 L PLEASE NOTE NEW KSERUM) REFERENCE RANGE (S) IN EFFECT EFFECTIVE 11/11/ 010 - NEW ANALYZER (V ITROS 5600) CHLORIDE (test code 98 MMOL/L 98-107 = CL) CO2 (test code = 24 MMOL/L 22-30 CO2) BUN (test code = 11 MG/DL 9-20 BUN) CREA (test code = 0.8 MG/DL 0.8-1.5 CREA) GLUCOSE (test code 250 MG/DL 70-99 H Fasting glucose = GLUCOSE) normal <100 MG/ DL- [facility] recommendation* * CALCIUM (test code 9.7 MG/DL 8.4-10.2 = CABLOOD) TOTPROT (test code 7.6 G/DL 6.3-8.2 = TOTPROT) ALBUMIN (test code 4.6 G/DL 3.5-5.0 = ALBSERUM) BILITOT (test code 0.2 MG/DL 0.2-1.3 = BILITOT) AST (test code = 28 U/L 15-46 AST) PHOSALK (test code 86 U/L 38-126 = PHOSALK) ALTV (test code = 23 U/L 13-69 ALTV) GFR (test code = 112 A GFR of >9 0 GFR) mL/min/1.73m2 mL/min/1.73m2 is considered norm al. ACETAMINOPHEN [id number] 15:05:00 Test Item Value Reference Range Interpretation Comments ACETAMIN (test code = <10 UG/ML 10-30 Therap utic range is ACETAMIN) 10-30 ug/mL Tox ic range is >200 ug/mL [id number] 15:05:00 Test Item Value Reference Range Interpretation Comments SALICYLA (test code <10.0 mg/L IN TERPRETIVE DATA = SALICYLA) Therapeut ic: <200 mg/L Toxic: >30 0 mg/L Lethal: >600 mg /L Updated: 2009 CHEST 1 VIEW [id number] 14:15:[address] [address]YRYEMOVZUO IMAGING REPORTPatient Name: Arcadio FUENTES of Service: [id number]: 43 Sex: M Order #: [id number] Room: [facility]: 1975 X-Ray Number: [id number] Record Number: [id number] Hospital Number: [id number] Physician: HERBER QUICK TANOrdering Physician: ADDIE GENAO 1 VIEW PORTABLE 08/21/2019 2:02 PM:History: Possible aspiration pneumonia. Intoxication with nausea andvomiting.Comp arison: None.Technique: 1 view chestFindings:The cardiomediastinal silhouette is normal. The lungsare clear withoutinfiltrate, effusion, or pneumothorax. The bones are intact.Impression:No acute cardiopulmonary process.Electronically Signed By: Monse Blank M.D., 08/21/2019 2:13 PMLegally authenticated by LUCY SHEA 2019-08-21 14:13:17WHOLE BLOOD [id number] 11:30:00 Test Item Value Reference Range Interpretation Comments WHOLE BLOOD GLUCOSE 175 MG/DL 70-99 H Fastin g glucose (test code = POC GLU) normal <100 MG/DL- [facility] recommend ation WHOLE BLOOD [id number] 05:55:00 Test Item Value Reference Range Interpretation Comments WHOLE BLOOD GLUCOSE 178 MG/DL 70-99 H Fastin g glucose (test code = POC GLU) normal <100 MG/DL- [facility] recommend ation WHOLE BLOOD [id number] 19:45:00 Test Item Value Reference Range Interpretation Comments WHOLE BLOOD GLUCOSE 152 MG/DL 70-99 H Fastin g glucose (test code = POC GLU) normal <100 MG/DL- [facility] recommend ation WHOLE BLOOD [id number] 16:40:00 Test Item Value Reference Range Interpretation Comments WHOLE BLOOD GLUCOSE 175 MG/DL 70-99 H Fastin g glucose (test code = POC GLU) normal <100 MG/DL- [facility] recommend ation WHOLE BLOOD [id number] 12:00:00 Test Item Value Reference Range Interpretation Comments WHOLE BLOOD GLUCOSE 280 MG/DL 70-99 H Fastin g glucose (test code = POC GLU) normal <100 MG/DL- [facility] recommend ation WHOLE BLOOD [id number] 06:20:00 Test Item Value Reference Range Interpretation Comments WHOLE BLOOD GLUCOSE 156 MG/DL 70-99 H Fastin g glucose (test code = POC GLU) normal <100 MG/DL- [facility] recommend ation WHOLE BLOOD [id number] 04:30:00 Test Item Value Reference Range Interpretation Comments WHOLE BLOOD GLUCOSE 187 MG/DL 70-99 H Fastin g glucose (test code = POC GLU) normal <100 MG/DL- [facility] recommend ation VALPROIC [id number] 18:36:00 Test Item Value Reference Range Interpretation Comments VALP (test code = VALP) 94 UG/ML 50-100 WHOLE BLOOD [id number] 16:35:00 Test Item Value Reference Range Interpretation Comments WHOLE BLOOD GLUCOSE 192 MG/DL 70-99 H Fastin g glucose (test code = POC GLU) normal <100 MG/DL- [facility] recommend ation WHOLE BLOOD [id number] 11:30:00 Test Item Value Reference Range Interpretation Comments WHOLE BLOOD GLUCOSE 196 MG/DL 70-99 H Fastin g glucose (test code = POC GLU) normal <100 MG/DL- [facility] recommend ation WHOLE BLOOD [id number] 07:00:00 Test Item Value Reference Range Interpretation Comments WHOLE BLOOD GLUCOSE 226 MG/DL 70-99 H Fastin g glucose (test code = POC GLU) normal <100 MG/DL- [facility] recommend ation WHOLE BLOOD [id number] 19:35:00 Test Item Value Reference Range Interpretation Comments WHOLE BLOOD GLUCOSE 117 MG/DL 70-99 H Fastin g glucose (test code = POC GLU) normal <100 MG/DL- [facility] recommend ation WHOLE BLOOD [id number] 16:15:00 Test Item Value Reference Range Interpretation Comments WHOLE BLOOD GLUCOSE 224 MG/DL 70-99 Fastin g glucose (test code = POC GLU) normal <100 MG/DL- [facility] recommend ation WHOLE BLOOD [id number] 12:15:00 Test Item Value Reference Range Interpretation Comments WHOLE BLOOD GLUCOSE 232 MG/DL 70-99 Fastin g glucose (test code = POC GLU) normal <100 MG/DL- [facility] recommend ation WHOLE BLOOD [id number] 06:35:00 Test Item Value Reference Range Interpretation Comments WHOLE BLOOD GLUCOSE 212 MG/DL 70-99 H Fastin g glucose (test code = POC GLU) normal <100 MG/DL- [facility] recommend ation WHOLE BLOOD [id number] 19:30:00 Test Item Value Reference Range Interpretation Comments WHOLE BLOOD GLUCOSE 96 MG/DL 70-99 Fastin g glucose (test code = POC GLU) normal <100 MG/DL- [facility] recommendation* * WHOLE BLOOD [id number] 16:15:00 Test Item Value Reference Range Interpretation Comments WHOLE BLOOD GLUCOSE 172 MG/DL 70-99 Fastin g glucose (test code = POC GLU) normal <100 MG/DL- [facility] recommend ation WHOLE BLOOD [id number] 11:25:00 Test Item Value Reference Range Interpretation Comments WHOLE BLOOD GLUCOSE 124 MG/DL 70-99 H Fastin g glucose (test code = POC GLU) normal <100 MG/DL- [facility] recommend ation WHOLE BLOOD [id number] 11:25:00 Test Item Value Reference Range Interpretation Comments WHOLE BLOOD GLUCOSE 283 MG/DL 70-99 H Fastin g glucose (test code = POC GLU) normal <100 MG/DL- [facility] recommend ation WHOLE BLOOD [id number] 03:40:00 Test Item Value Reference Range Interpretation Comments WHOLE BLOOD GLUCOSE 119 MG/DL 70-99 H Fastin g glucose (test code = POC GLU) normal <100 MG/DL- [facility] recommend ation WHOLE BLOOD [id number] 16:20:00 Test Item Value Reference Range Interpretation Comments WHOLE BLOOD GLUCOSE 191 MG/DL 70-99 Fastin g glucose (test code = POC GLU) normal <100 MG/DL- [facility] recommend ation WHOLE BLOOD [id number] 11:30:00 Test Item Value Reference Range Interpretation Comments WHOLE BLOOD GLUCOSE 155 MG/DL 70-99 Fastin g glucose (test code = POC GLU) normal <100 MG/DL- [facility] recommend ation WHOLE BLOOD [id number] 06:25:00 Test Item Value Reference Range Interpretation Comments WHOLE BLOOD GLUCOSE 217 MG/DL 70-99 H Fastin g glucose (test code = POC GLU) normal <100 MG/DL- [facility] recommend ation WHOLE BLOOD [id number] 06:25:00 Test Item Value Reference Range Interpretation Comments WHOLE BLOOD GLUCOSE 161 MG/DL 70-99 H Fastin g glucose (test code = POC GLU) normal <100 MG/DL- [facility] recommend ation WHOLE BLOOD [id number] 06:25:00 Test Item Value Reference Range Interpretation Comments WHOLE BLOOD GLUCOSE 223 MG/DL 70-99 H Fastin g glucose (test code = POC GLU) normal <100 MG/DL- [facility] recommend ation WHOLE BLOOD [id number] 11:40:00 Test Item Value Reference Range Interpretation Comments WHOLE BLOOD GLUCOSE 181 MG/DL 70-99 H Fastin g glucose (test code = POC GLU) normal <100 MG/DL- [facility] recommend ation WHOLE BLOOD [id number] 05:55:00 Test Item Value Reference Range Interpretation Comments WHOLE BLOOD GLUCOSE 292 MG/DL 70-99 H Fastin g glucose (test code = POC GLU) normal <100 MG/DL- [facility] recommend ation WHOLE BLOOD [id number] 19:25:00 Test Item Value Reference Range Interpretation Comments WHOLE BLOOD GLUCOSE 84 MG/DL 70-99 Fastin g glucose (test code = POC GLU) normal <100 MG/DL- [facility] recommendation* * WHOLE BLOOD [id number] 16:10:00 Test Item Value Reference Range Interpretation Comments WHOLE BLOOD GLUCOSE 348 MG/DL 70-99 H Fastin g glucose (test code = POC GLU) normal <100 MG/DL- [facility] recommend ation WHOLE BLOOD [id number] 11:20:00 Test Item Value Reference Range Interpretation Comments WHOLE BLOOD GLUCOSE 282 MG/DL 70-99 Fastin g glucose (test code = POC GLU) normal <100 MG/DL- [facility] recommend ation BLOOD [id number] 07:53:00 Test Item Value Reference Range Interpretation Comments Report Text (test [facility] 2019-07-26 1127 code = Report Text) Report Text7 (test BLOOD CULTURES HELD FOR code = Report 5 DAYS BEFORE FINAL Text7) Report Text8 (test code = Report Text8) Report Text9 (test [employer] [facility] code = Report MICROBIOLOGY SUGGESTS THAT Text9) Report Text10 (test MOST CASES OF BACTEREMIA code = Report ARE DETECTED BY USING Text10) Report Text11 (test THREE SETS OF SEPARATELY code = Report COLLECTED BLOOD CULTURES. Text11) Report Text12 (test [facility] 2019-07-26 1128 code = Report Text12) Report Text13 (test CONVERSELY, A SINGLE BLOOD code = Report CULTURE MAY MISS Text13) Report Text14 (test INTERMITTENTLY OCCURRING code = Report BACTEREMIA AND MAKE Text14) Report Text15 (test IT DIFFICULT TO INTERPRET code = Report THE CLINICAL Text15) Report Text16 (test SIGNIFICANCE OF CERTAIN code = Report ISOLATED ORGANISMS. Text16) Report Text17 (test code = Report Text17) Report Text18 (test [facility] 2019-07-26 1129 code = Report Text18) Report Text19 (test COLLECTION SITE code = Report UNSPECIFIED Text19) Report Text20 (test [facility] 2019-07-27 645 code = Report Text20) Report Text21 (test NO GROWTH WITHIN 1 DAY code = Report Text21) Report Text22 (test PRELIMINARY REPORT code = Report Text22) Report Text23 (test code = Report Text23) Report Text24 (test 2019-07-28 643 code = Report Text24) Report Text25 (test NO GROWTH WITHIN 2 DAYS code = Report Text25) Report Text26 (test PRELIMINARY REPORT code = Report Text26) Report Text27 (test code = Report Text27) Report Text28 (test [facility] 2019-07-31 753 code = Report Text28) Report Text29 (test NO GROWTH WITHIN 5 DAYS code = Report Text29) Report Text30 (test FINAL REPORT code = Report Text30) BLOOD [id number] 07:53:00 Test Item Value Reference Range Interpretation Comments Report Text (test [facility] 2019-07-26 1127 code = Report Text) Report Text7 (test BLOOD CULTURES HELD FOR code = Report 5 DAYS BEFORE FINAL Text7) Report Text8 (test code = Report Text8) Report Text9 (test [employer] code = Report MICROBIOLOGY SUGGESTS THAT Text9) Report Text10 (test MOST CASES OF BACTEREMIA code = Report ARE DETECTED BY USING Text10) Report Text11 (test THREE SETS OF SEPARATELY code = Report COLLECTED BLOOD CULTURES. Text11) Report Text12 (test [facility] 2019-07-26 1128 code = Report Text12) Report Text13 (test CONVERSELY, A SINGLE BLOOD code = Report CULTURE MAY MISS Text13) Report Text14 (test INTERMITTENTLY OCCURRING code = Report BACTEREMIA AND MAKE Text14) Report Text15 (test IT DIFFICULT TO INTERPRET code = Report THE CLINICAL Text15) Report Text16 (test SIGNIFICANCE OF CERTAIN code = Report ISOLATED ORGANISMS. Text16) Report Text17 (test code = Report Text17) Report Text18 (test [facility] 2019-07-26 1129 code = Report Text18) Report Text19 (test COLLECTION SITE code = Report UNSPECIFIED Text19) Report Text20 (test [facility] 2019-07-27 645 code = Report Text20) Report Text21 (test NO GROWTH WITHIN 1 DAY code = Report Text21) Report Text22 (test PRELIMINARY REPORT code = Report Text22) Report Text23 (test code = Report Text23) Report Text24 (test JM 2019-07-28 643 code = Report Text24) Report Text25 (test NO GROWTH WITHIN 2 DAYS code = Report Text25) Report Text26 (test PRELIMINARY REPORT code = Report Text26) Report Text27 (test code = Report Text27) Report Text28 (test PDG 2019-07-31 753 code = Report Text28) Report Text29 (test NO GROWTH WITHIN 5 DAYS code = Report Text29) Report Text30 (test FINAL REPORT code = Report Text30) HEPATITIS C ANTIBODY [id number] 19:39:00 Test Item Value Reference Range Interpretation Comments SCRN HCV (test code NEGATIVE NEGATIVE Hepatiti s C Antibody test = SCRN HCV) is for screenin g purposes only. All react muriel will be confirmed by additional test ing. ER SCREEN FOR HIV 19:39:00 Test Item Value Reference Range Interpretation Comments HIV 1/2 AB (test NEGATIVE NEGATIVE This test i s used for code = SCRN HIV) SCREENING p urposes only. All reactive re sults are prelimenary and confirmation re sults will follow. URINE DRUG [id number] 18:14:00 Test Item Value Reference Range Interpretation Comments AMPHET (test code = NEGATIVE NEGATIVE This is an unconfirmed BAMP) screening. Res ult are to be used for medical purposes (treat ment) only. Not inte nded for non-medical pur poses. Cut-off concent ration for a positive result for each drug: Amphetamine - 1 ,000 ng/ml Barbitura te - 200 ng/ml Benzodiaz epine - 200 ng/ml Canna binoids - 50 ng/ml Coca ine - 300 ng/ml Opiat es - 300 ng/ml PCP - 25 ng/ml BARBITURATES (test NEGATIVE NEGATIVE code = BBAR) BENZO (test code = NEGATIVE NEGATIVE BBENZ) CANNABS (test code = NEGATIVE NEGATIVE BCANN) COCAINE (test code = NEGATIVE NEGATIVE BCOC) OPIATES (test code = NEGATIVE NEGATIVE BOPI) PCP (test code = NEGATIVE NEGATIVE BMTPCP) BLOOD ALCOHOL (ETOH)2019-07-30 18:14:00 Test Item Value Reference Range Interpretation Comments ALCOHOL BLOOD LEVEL <10 MG/DL 0-10 Results are to be used (test code = ALC BLD) for me dical purposes (treatment) onl y. Not intended for no n medical purpose s. [id number] 18:14:00 Test Item Value Reference Range Interpretation Comments SODIUM (test code = 138 MMOL/L 137-145 NA) K+ (test code = 3.5 MMOL/L 3.5-5.1 PLEASE NOTE NEW KSERUM) REFERENCE RANGE (S) IN EFFECT EFFECTIVE 010 - NEW ANALYZER (V ITROS 5600) CHLORIDE (test code 100 MMOL/L 98-107 = CL) CO2 (test code = 31 MMOL/L 22-30 H CO2) BUN (test code = 9 MG/DL 9-20 BUN) CREA (test code = 0.7 MG/DL 0.8-1.5 L CREA) GLUCOSE (test code 206 MG/DL 70-99 H Fasting glucose = GLUCOSE) normal <100 MG/ DL- [facility] [facility] recommendation* * CALCIUM (test code 9.7 MG/DL 8.4-10.2 = CABLOOD) TOTPROT (test code 7.2 G/DL 6.3-8.2 = TOTPROT) ALBUMIN (test code 4.1 G/DL 3.5-5.0 = ALBSERUM) BILITOT (test code 0.2 MG/DL 0.2-1.3 = BILITOT) AST (test code = 37 U/L 15-46 AST) PHOSALK (test code 74 U/L 38-126 = PHOSALK) ALTV (test code = 36 U/L 13-69 ALTV) GFR (test code = 131 A GFR of >9 0 GFR) mL/min/1.73m2 mL/min/1.73m2 is considered norm al. CREATINE [id number] 18:14:00 Test Item Value Reference Range Interpretation Comments CK (test code = CK) 545 U/L 55-170 H [id number] 17:51:00 Test Item Value Reference Range Interpretation Comments GLUCOSE (test code = URGLU) NEGATIVE MG/DL NEG-100 BILIRUBN (test code = URBILI) NEGATIVE NEGATIVE KETONE (test code = URKET) NEGATIVE MG/DL NEGATIVE BLOOD (test code = URBLD) NEGATIVE UR PH (test code = URPH) 6.5 5.0-7.5 PROTEIN (test code = URPRO) NEGATIVE MG/DL NEGATIVE NITRITES (test code = URNIT) NEGATIVE NEGATIVE UROBILINGEN (test code = 0.2 EU/DL 0.2-1.0 URURO) LEUKOCYT (test code = URLEU) NEGATIVE NEGATIVE UA COLOR (test code = UA YELLOW YELLOW COLOR) CLARITY (test code = CLARITY) CLEAR CLEAR SP GRAV (test code = URSPGRAV) 1.002 1.000-1.025 UAMICRO (test code = UAMICRO) NO [id number] 17:40:00 Test Item Value Reference Range Interpretation Comments WBC (test code = 9.9 K/UL 3.5-10.9 WBC) RBC (test code = 4.24 M/UL 4.3-5.7 L RBC) HGB (test code = 13.3 G/DL 13.0-17.9 HGB) HCT (test code = 38.6 % 38-52 HCT) MCV (test code = 91.0 FL 80-98 MCV) MCH (test code = 31.4 PG 28-32 MCH) MCHC (test code = 34.5 G/DL 32.5-36.5 MCHC) RDW (test code = 12.3 % 11.5-14.5 RDW) PLT (test code = 285 K/UL 150-450 PLT) MPV (test code = 10.0 FL 7.4-10.4 MPV) MANDIFF (test code = NO MANDIFF) SCAN (test code = NO SCAN) NEUT% (test code = 52.9 % 40-75 NEUT%) LYMPH% (test code = 33.9 % 24-44 LYMPH%) MONO% (test code = 9.0 % 0-13 MONO%) EOS% (test code = 2.6 % 0-4 EOS%) BASO % (test code = 1.2 % 0-2 BASO%) IG (test code = IG) 0 % 0-1 IG% (test code = 0.4 % 0-1 IG% = Metam yelocytes, IG%) Myelocytes, and Promyelocytes. (Immature neutr ophils not including " bands".) > 3% IG indic ates risk of sepsis NRBC% (test code = 0 /100 WBC NRBC%) ABS NEUT (test code 5.2 K/UL 1.2-7.2 = NEUT) Creatine kinase ser/[id number] 00:48:00 Test Item Value Reference Range Interpretation Comments Total Creatine Kinase (test code = 854 U/L 2157-6) [facility] (number/volume) 2019-07-29 20:33:00 Test Item Value Reference Range Interpretation Comments White Blood Count (test code = 7.5 10*3/uL 6690-2) [facility] (number/volume) 2019-07-29 20:33:00 Test Item Value Reference Range Interpretation Comments Red Blood Count (test code = 4.27 10*6/uL 789-8) [facility] ([facility]/volume)2019-07-29 20:33:00 Test Item Value Reference Range Interpretation Comments Hemoglobin (test code = 718-7) 13.6 g/dL [facility] ChildrenAutomated blood hematocrit (volume fraction)2019-07-29 20:33:00 Test Item Value Reference Range Interpretation Comments Hematocrit (test code = 4544-3) 38.4 % [facility] BrenhamzabethAutomated erythrocyte mean corpuscular volume (MCV) [id number] 20:33:00 Test Item Value Reference Range Interpretation Comments Mean Corpuscular Volume (test code = 90 fL 787-2) [facility]hamzabethAutomated erythrocyte mean corpuscular hemoglobin (mass per erythrocyte)2019-07-29 20:33:00 Test Item Value Reference Range Interpretation Comments Mean Corpuscular Hemoglobin (test 31.9 pg code = 785-6) [facility] ElizabethAutomated erythrocyte mean corpuscular hemoglobin concentration measurement (mass/[id number] 20:33:00 Test Item Value Reference Range Interpretation Comments Mean Corpuscular Hemoglobin Concent 35.4 g/dL (test code = 786-4) [facility] ElizabethAutomated erythrocyte distribution width [id number] 20:33:00 Test Item Value Reference Range Interpretation Comments Red Cell Distribution Width (test code 12.0 % = 788-0) [facility] ElizabethAutomated blood platelet count (count/volume)2019-07-29 20:33:00 Test Item Value Reference Range Interpretation Comments Platelet Count (test code = 292 10*3/uL 777-3) [facility] ElizabethAutomated blood platelet mean volume measurement 2019-07-29 20:33:00 Test Item Value Reference Range Interpretation Comments Mean Platelet Volume (test code = 9.9 39199-0) [facility] ElizabethAutomated blood neutrophil count as percentage of total [id number] 20:33:00 Test Item Value Reference Range Interpretation Comments Neutrophils (%) (Auto) (test code = 51 % 770-8) [facility] ElizabethAutomated blood immature granulocyte count as percentage of total flyuqupbfw0346-39-46 20:33:00 Test Item Value Reference Range Interpretation Comments Immature Granulocyte % (Auto) (test 1 % code = 61672-4) [facility] ElizabethAutomated blood lymphocyte count as percentage of total qtxwcnwfjr7635-04-87 20:33:00 Test Item Value Reference Range Interpretation Comments Lymphocytes (%) (Auto) (test code = 33 % 736-9) [facility] . ElizabethAutomated blood monocyte count as percentage of total [id number] 20:33:00 Test Item Value Reference Range Interpretation Comments Monocytes (%) (Auto) (test code = 10 % 5905-5) [facility] . ElizabethAutomated blood eosinophil count as percentage of total vivrulshnw4343-88-89 20:33:00 Test Item Value Reference Range Interpretation Comments Eosinophils (%) (Auto) (test code = 4 % 713-8) [facility] ElizabethAutomated blood basophil count as percentage of total muhelwwhfb8475-06-28 20:33:00 Test Item Value Reference Range Interpretation Comments Basophils (%) (Auto) (test code = 1 % 706-2) [facility] ElizabethAutomated blood nucleated erythrocyte count as percentage of total [id number] 20:33:00 Test Item Value Reference Range Interpretation Comments Nucleated Red Blood Cells % (test code 0.0 % = 24069-7) [facility] ElizabethAutomated blood neutrophil count (number/volume) 2019-07-29 20:33:00 Test Item Value Reference Range Interpretation Comments Neutrophils # (Auto) (test code = 3.8 10*3/uL 751-8) [facility] ElizabethAutomated blood immature granulocyte count as percentage of total ssqrgkaxha0131-96-01 20:33:00 Test Item Value Reference Range Interpretation Comments Immature Granulocyte # (Auto) 0.0 10*3/uL (test code = 79730-4) [facility] ElizabethAutomated blood lymphocyte count (number/volume) 2019-07-29 20:33:00 Test Item Value Reference Range Interpretation Comments Lymphocytes # (Auto) (test code = 2.5 10*3/uL 731-0) [facility] automated count (number/volume) 2019-07-29 20:33:00 Test Item Value Reference Range Interpretation Comments Monocytes # (Auto) (test code = 0.8 10*3/uL 742-7) [facility] ElizabethAutomated blood eosinophil [id number] 20:33:00 Test Item Value Reference Range Interpretation Comments Eosinophils # (Auto) (test code = 0.3 10*3/uL 711-2) [facility] ElizabethAutomated blood basophil count (number/volume)2019-07-29 20:33:00 Test Item Value Reference Range Interpretation Comments Basophils # (Auto) (test code = 0.1 10*3/uL 704-7) [facility] ElizabethAutomated blood nucleated erythrocyte count (count/volume)2019-07-29 20:33:00 Test Item Value Reference Range Interpretation Comments Nucleated Red Blood Cells # 0.00 10*3/uL (test code = 771-6) [facility] ElizabethService comment 20:33:00 Test Item Value Reference Range Interpretation Comments Manual Differential (test code = Not Ind 8265-1) [facility] ElizabethUrinalysis specimen collection [id number] 20:33:00 Test Item Value Reference Range Interpretation Comments Urine Source (test code = 53251-0) URINE [facility] ElizabethColor of Urine by [id number] 20:33:00 Test Item Value Reference Range Interpretation Comments Urine Color (test code = 64723-6) Colorless [facility] ElizabethUrine clarity [id number] 20:33:00 Test Item Value Reference Range Interpretation Comments Urine Appearance (test code = 80760-5) Clear [facility] ElibeUrine pH measurement by automated test [id number] 20:33:00 Test Item Value Reference Range Interpretation Comments Urine pH (test code = 54782-8) 6.5 [facility] ElizabethSpecific gravity of Urine by Automated test strip 2019-07-29 20:33:00 Test Item Value Reference Range Interpretation Comments Urine Specific [place] (test code = 1.006 35838-7) [facility] ElizabethUrine protein measurement by automated test strip (mass/volume)2019-07-29 20:33:00 Test Item Value Reference Range Interpretation Comments Urine Protein (test code = Negative mg/dL 40425-7) [facility] ElizabethUrine glucose measurement by automated test strip (mass/volume)2019-07-29 20:33:00 Test Item Value Reference Range Interpretation Comments Urine Glucose (UA) (test code = >1000 mg/dL 06732-1) [facility] ElizabethUrine ketones measurement by automated test strip (mass/volume)2019-07-29 20:33:00 Test Item Value Reference Range Interpretation Comments Urine Ketones (test code = Negative mg/dL 08219-3) [facility] ElizabethUrine erythrocytes count by automated test strip (number/volume)2019-07-29 20:33:00 Test Item Value Reference Range Interpretation Comments Urine Occult Blood (test code = Negative 31872-3) [facility] ChildrenU[facility] nitrite detection by automated test strip 2019-07-29 20:33:00 Test Item Value Reference Range Interpretation Comments Urine Nitrite (test code = 43873-2) Negative [facility] total bilirubin measurement by automated test strip (mass/volume)2019-07-29 20:33:00 Test Item Value Reference Range Interpretation Comments Urine Bilirubin (test code = Negative mg/dL 23239-5) [facility] urob[facility]ogen measurement by automated test strip (mass/volume)2019-07-29 20:33:00 Test Item Value Reference Range Interpretation Comments Urine Urobilinogen (test code Negative mg/dL = 91964-8) [facility] leukocytes count by automated test strip (number/volume)2019-07-29 20:33:00 Test Item Value Reference Range Interpretation Comments Urine Leukocyte Esterase Negative {Janie}/uL (test code = 41780-3) [facility] ElibethMicroscopic examination of [id number] 20:33:00 Test Item Value Reference Range Interpretation Comments Microscopic Urinalysis (T) (test code = ----- 42329-6) [facility] sediment erythrocyte count by microscopy (number/high power field)2019-07-29 20:33:00 Test Item Value Reference Range Interpretation Comments Urine RBC (test code = 15276-5) 0-2 /[HPF] [facility] sediment leukocyte count by microscopy (number/high power field)2019-07-29 20:33:00 Test Item Value Reference Range Interpretation Comments Urine WBC (test code = 5821-4) 0-5 /[HPF] [facility] sediment epithelial cell count by microscopy (number/high power field)2019-07-29 20:33:00 Test Item Value Reference Range Interpretation Comments Urine Epithelial Cells (test None Seen /[HPF] code = 5787-7) [facility] sediment crystal count by microscopy (number/high power field)2019-07-29 20:33:00 Test Item Value Reference Range Interpretation Comments Urine Crystals (test code = None Seen /[HPF] 72217-5) [facility] Elizabeth[facility] sediment bacteria count by microscopy (number/high power field)2019-07-29 20:33:00 Test Item Value Reference Range Interpretation Comments Urine Bacteria (test code = None Seen /[HPF] 5769-5) [facility] ElizabethUrine sediment casts count by microscopy (number/low power field)2019-07-29 20:33:00 Test Item Value Reference Range Interpretation Comments Urine Casts (test code = Present /[LPF] 9842-6) [facility] ElizabethUrine sediment hyaline cast count by microscopy (number/low power field)2019-07-29 20:33:00 Test Item Value Reference Range Interpretation Comments Urine Hyaline Casts (test code = 0-1 /[LPF] 5796-8) [facility] ElizabethYeast detection in urine sediment by light microscopy 2019-07-29 20:33:00 Test Item Value Reference Range Interpretation Comments Urine Yeast (test code = None Seen /[HPF] 72093-5) [facility] ElizabethService comment 20:33:00 Test Item Value Reference Range Interpretation Comments Urinalysis Comment (test code = 8262-8) * [facility] ElizabethService comment 20:33:00 Test Item Value Reference Range Interpretation Comments Urine Culture Indicated (test code = Not Ind 8264-4) [facility] ElizabethSerum or plasma sodium measurement (moles/volume) 2019-07-29 20:33:00 Test Item Value Reference Range Interpretation Comments Sodium Level (test code = 2951-2) 137 mmol/L [facility] ElizabethSerum or plasma potassium measurement (moles/volume) 2019-07-29 20:33:00 Test Item Value Reference Range Interpretation Comments Potassium Level (test code = 3.7 mmol/L 2823-3) [facility] ElizabethSerum or plasma chloride measurement (moles/volume) 2019-07-29 20:33:00 Test Item Value Reference Range Interpretation Comments Chloride Level (test code = 100 mmol/L 2075-0) [facility] ElizabethSerum or plasma total carbon dioxide measurement (moles/volume)2019-07-29 20:33:00 Test Item Value Reference Range Interpretation Comments Carbon Dioxide Level (test code = 25 mmol/L 2027-12) [facility] ElizabethSerum or plasma anion gap determination (moles/volume) 2019-07-29 20:33:00 Test Item Value Reference Range Interpretation Comments Anion Gap (test code = 21001-2) 16 [facility] ElizabethSerum or plasma urea nitrogen measurement (mass/volume) 2019-07-29 20:33:00 Test Item Value Reference Range Interpretation Comments Blood Urea Nitrogen (test code = 8 mg/dL 3094-0) [facility] ElizabethSerum or plasma creatinine measurement (mass/volume) 2019-07-29 20:33:00 Test Item Value Reference Range Interpretation Comments Creatinine (test code = 2160-0) 1.0 mg/dL [facility] PeekskillbethGFR estimate [id number] 20:33:00 Test Item Value Reference Range Interpretation Comments Estimat Glomerular Filtration Rate 87 (test code = 85614-1) [facility] ElizabethSerum or plasma glucose measurement (mass/volume) 2019-07-29 20:33:00 Test Item Value Reference Range Interpretation Comments Glucose Level (test code = 2345-7) 292 mg/dL [facility]. ElizabethSerum or plasma calcium measurement (mass/volume) 2019-07-29 20:33:00 Test Item Value Reference Range Interpretation Comments Calcium Level (test code = 42959-8) 9.3 mg/dL [facility] ElizabethSerum or plasma total bilirubin measurement (mass/volume)2019-07-29 20:33:00 Test Item Value Reference Range Interpretation Comments Total Bilirubin (test code = 0.2 mg/dL 1974-05) [facility] ElizabethSerum or plasma aspartate aminotransferase measurement (enzymatic activity/volume)2019-07-29 20:33:00 Test Item Value Reference Range Interpretation Comments Aspartate Amino Transf (AST/SGOT) 32 U/L (test code = 1920-8) [facility] ElizabethSerum or plasma alanine aminotransferase measurement (enzymatic activity/volume)2019-07-29 20:33:00 Test Item Value Reference Range Interpretation Comments Alanine Aminotransferase (ALT/SGPT) 30 U/L (test code = 1742-6) [facility]abeSouth [facility] Hospitalerum or plasma protein measurement (mass/volume) 2019-07-29 20:33:00 Test Item Value Reference Range Interpretation Comments Total Protein (test code = 2885-2) 7.7 g/dL [facility]ibeSouth [facility] Hospitalerum or plasma albumin measurement (mass/volume) 2019-07-29 20:33:00 Test Item Value Reference Range Interpretation Comments Albumin (test code = 1751-7) 4.3 g/dL [facility] or plasma alkaline phosphatase measurement (enzymatic activity/volume)2019-07-29 20:33:00 Test Item Value Reference Range Interpretation Comments Alkaline Phosphatase (test code = 83 U/L 6768-6) [facility]er[facility] or plasma free thyroxine (FT4) measurement (mass/volume)2019-07-29 20:33:00 Test Item Value Reference Range Interpretation Comments Free Thyroxine (test code = 0.79 ng/dL 3024-7) [facility] or plasma thyrotropin measurement with detection limit of 0.005 mIU/L or less (units/volume)2019-07-29 20:33:00 Test Item Value Reference Range Interpretation Comments Thyroid Stimulating Hormone 1.27 u[iU]/mL (TSH) (test code = 86277-2) [facility]ibe[facility] Hospitalerum or plasma triiodothyronine (T3) measurement (mass/volume)2019-07-29 20:33:00 Test Item Value Reference Range Interpretation Comments Total Triiodothyronine (test code 0.88 ng/mL = 3053-6) [facility] or plasma acetaminophen measurement (mass/volume) 2019-07-29 20:33:00 Test Item Value Reference Range Interpretation Comments Acetaminophen Level (test code = < 0.6 ug/mL 3298-7) [facility] ser/motz1455-81-56 20:33:00 Test Item Value Reference Range Interpretation Comments Salicylates Level (test code = < 5.0 mg/dL 4024-6) [facility] ElizabethSerum or plasma ethanol measurement (mass/volume) 2019-07-29 20:33:00 Test Item Value Reference Range Interpretation Comments Ethyl Alcohol Level (test code = < 10 mg/dL 5643-2) [facility] ChildrenU[facility] methamphetamine [id number] 20:33:00 Test Item Value Reference Range Interpretation Comments Urine Methamphetamines Screen Negative ng/mL (test code = 04247-8) [facility] ChildrenU[facility] propoxyphene screening [id number] 20:33:00 Test Item Value Reference Range Interpretation Comments Urine Propoxyphene Screen Negative ng/mL (test code = 84293-5) [facility] amphetamines detection by screening method 2019-07-29 20:33:00 Test Item Value Reference Range Interpretation Comments Urine Amphetamines Screen Negative ng/mL (test code = 90865-7) [facility] buprenorphine screen with reflex confirmation 2019-07-29 20:33:00 Test Item Value Reference Range Interpretation Comments Urine Buprenorphine (test code Negative ng/mL = 3414-0) [facility] barbiturates detection by screening method 2019-07-29 20:33:00 Test Item Value Reference Range Interpretation Comments Urine Barbiturates Screen Negative ng/mL (test code = 95024-3) [facility] benzodiazepines detection by screening method 2019-07-29 20:33:00 Test Item Value Reference Range Interpretation Comments Urine Benzodiazepines Screen Negative ng/mL (test code = 92197-8) [facility] benzoylecgonine detection by screening method 2019-07-29 20:33:00 Test Item Value Reference Range Interpretation Comments Urine Cocaine Screen (test Negative ng/mL code = 76612-7) [facility] Children[facility] methadone [id number] 20:33:00 Test Item Value Reference Range Interpretation Comments Urine Methadone, Qualitative Negative ng/mL (test code = 23436-8) [facility] opiates screening [id number] 20:33:00 Test Item Value Reference Range Interpretation Comments Urine Opiates Screen (test Negative ng/mL code = 88878-0) [facility]rine phencyclidine detection by screening method 2019-07-29 20:33:00 Test Item Value Reference Range Interpretation Comments Urine Phencyclidine Screen Negative ng/mL (test code = 89904-7) [facility] ElizabethUrine cannabinoids detection by screening method 2019-07-29 20:33:00 Test Item Value Reference Range Interpretation Comments Urine Cannabinoids (test code Negative ng/mL = 36465-9) [facility] ElizabethScreening urine tricyclic antidepressants detection 2019-07-29 20:33:00 Test Item Value Reference Range Interpretation Comments Ur Tricyclic Antidepressants Negative ng/mL Screen (test code = 68940-8) [facility] ElizabethUrine oxycodone detection by screening [id number] 20:33:00 Test Item Value Reference Range Interpretation Comments Urine Oxycodone Screen (test Negative ng/mL code = 40897-7) [facility] ElizabethSpecific gravity of Urine by Automated test strip 2019-07-29 20:33:00 Test Item Value Reference Range Interpretation Comments Urine Specific [place] (test code = 1.006 27260-9) [facility] Elizabeth[facility]rine pH measurement by automated test [id number] 20:33:00 Test Item Value Reference Range Interpretation Comments Urine pH (test code = 40028-9) 6.5 [facility] ElizabethUrine drug screen comment [id number] 20:33:00 Test Item Value Reference Range Interpretation Comments Urine Drug Screen Comment (test code See Note = 84463-4) [facility] ElizabethUrinalysis specimen collection [id number] 20:33:00 Test Item Value Reference Range Interpretation Comments Urine Source (test code = 27389-8) URINE [facility] ElizabethColor of Urine by [id number] 20:33:00 Test Item Value Reference Range Interpretation Comments Urine Color (test code = 60455-5) Colorless [facility] ElizabethUrine clarity [id number] 20:33:00 Test Item Value Reference Range Interpretation Comments Urine Appearance (test code = 71063-1) Clear [facility] ElizabethUrine pH measurement by automated test [id number] 20:33:00 Test Item Value Reference Range Interpretation Comments Urine pH (test code = 37024-9) 6.5 [facility] Orleanspecific gravity of Urine by Automated test strip 2019-07-29 20:33:00 Test Item Value Reference Range Interpretation Comments Urine Specific [place] (test code = 1.006 60959-5) [facility] protein measurement by automated test strip (mass/volume)2019-07-29 20:33:00 Test Item Value Reference Range Interpretation Comments Urine Protein (test code = Negative mg/dL 94146-0) [facility] glucose measurement by automated test strip (mass/volume)2019-07-29 20:33:00 Test Item Value Reference Range Interpretation Comments Urine Glucose (UA) (test code = >1000 mg/dL 02600-8) [facility] ketones measurement by automated test strip (mass/volume)2019-07-29 20:33:00 Test Item Value Reference Range Interpretation Comments Urine Ketones (test code = Negative mg/dL 35945-9) [facility] erythrocytes count by automated test strip (number/volume)2019-07-29 20:33:00 Test Item Value Reference Range Interpretation Comments Urine Occult Blood (test code = Negative 13497-0) [facility] nitrite detection by automated test strip 2019-07-29 20:33:00 Test Item Value Reference Range Interpretation Comments Urine Nitrite (test code = 47554-5) Negative [facility] total bilirubin measurement by automated test strip (mass/volume)2019-07-29 20:33:00 Test Item Value Reference Range Interpretation Comments Urine Bilirubin (test code = Negative mg/dL 24083-5) [facility] urobilinogen measurement by automated test strip (mass/volume)2019-07-29 20:33:00 Test Item Value Reference Range Interpretation Comments Urine Urobilinogen (test code Negative mg/dL = 68622-0) [facility] leukocytes count by automated test strip (number/volume)2019-07-29 20:33:00 Test Item Value Reference Range Interpretation Comments Urine Leukocyte Esterase Negative {Janie}/uL (test code = 55090-2) [facility] ElibethMicroscopic examination of [id number] 20:33:00 Test Item Value Reference Range Interpretation Comments Microscopic Urinalysis (T) (test code = ----- 42134-3) [facility] sediment erythrocyte count by microscopy (number/high power field)2019-07-29 20:33:00 Test Item Value Reference Range Interpretation Comments Urine RBC (test code = 45818-9) 0-2 /[HPF] [facility] sediment leukocyte count by microscopy (number/high power field)2019-07-29 20:33:00 Test Item Value Reference Range Interpretation Comments Urine WBC (test code = 5821-4) 0-5 /[HPF] [facility] sediment epithelial cell count by microscopy (number/high power field)2019-07-29 20:33:00 Test Item Value Reference Range Interpretation Comments Urine Epithelial Cells (test None Seen /[HPF] code = 5787-7) [facility] sediment crystal count by microscopy (number/high power field)2019-07-29 20:33:00 Test Item Value Reference Range Interpretation Comments Urine Crystals (test code = None Seen /[HPF] 35705-2) [facility] sediment bacteria count by microscopy (number/high power field)2019-07-29 20:33:00 Test Item Value Reference Range Interpretation Comments Urine Bacteria (test code = None Seen /[HPF] 5769-5) [facility] sediment casts count by microscopy (number/low power field)2019-07-29 20:33:00 Test Item Value Reference Range Interpretation Comments Urine Casts (test code = Present /[LPF] 9842-6) [facility] sediment hyaline cast count by microscopy (number/low power field)2019-07-29 20:33:00 Test Item Value Reference Range Interpretation Comments Urine Hyaline Casts (test code = 0-1 /[LPF] 5796-8) [facility]ass[facility] centerthYeast detection in urine sediment by light microscopy 2019-07-29 20:33:00 Test Item Value Reference Range Interpretation Comments Urine Yeast (test code = None Seen /[HPF] 40568-0) [facility] ElizabethService comment 20:33:00 Test Item Value Reference Range Interpretation Comments Urinalysis Comment (test code = 8262-8) * [facility] ElizabethService comment 20:33:00 Test Item Value Reference Range Interpretation Comments Urine Culture Indicated (test code = Not Ind 8264-4) [facility] methamphetamine [id number] 20:33:00 Test Item Value Reference Range Interpretation Comments Urine Methamphetamines Screen Negative ng/mL (test code = 37225-8) [facility] propoxyphene screening [id number] 20:33:00 Test Item Value Reference Range Interpretation Comments Urine Propoxyphene Screen Negative ng/mL (test code = 65676-4) [facility] ElizabethUrine amphetamines detection by screening method 2019-07-29 20:33:00 Test Item Value Reference Range Interpretation Comments Urine Amphetamines Screen Negative ng/mL (test code = 19579-4) [facility] ElizabethUrine buprenorphine screen with reflex confirmation 2019-07-29 20:33:00 Test Item Value Reference Range Interpretation Comments Urine Buprenorphine (test code Negative ng/mL = 3414-0) [facility] ElizabethUrine barbiturates detection by screening method 2019-07-29 20:33:00 Test Item Value Reference Range Interpretation Comments Urine Barbiturates Screen Negative ng/mL (test code = 40621-1) [facility]Urine benzodiazepines detection by screening method 2019-07-29 20:33:00 Test Item Value Reference Range Interpretation Comments Urine Benzodiazepines Screen Negative ng/mL (test code = 79798-1) [facility]Urine benzoylecgonine detection by screening method 2019-07-29 20:33:00 Test Item Value Reference Range Interpretation Comments Urine Cocaine Screen (test Negative ng/mL code = 08411-8) [facility] ElizabethUrine methadone [id number] 20:33:00 Test Item Value Reference Range Interpretation Comments Urine Methadone, Qualitative Negative ng/mL (test code = 66206-8) [facility]Urine opiates screening [id number] 20:33:00 Test Item Value Reference Range Interpretation Comments Urine Opiates Screen (test Negative ng/mL code = 49600-8) [facility]Urine phencyclidine detection by screening method 2019-07-29 20:33:00 Test Item Value Reference Range Interpretation Comments Urine Phencyclidine Screen Negative ng/mL (test code = 76335-7) [facility] ElizabethUrine cannabinoids detection by screening method 2019-07-29 20:33:00 Test Item Value Reference Range Interpretation Comments Urine Cannabinoids (test code Negative ng/mL = 60082-1) [facility] urine tricyclic antidepressants detection 2019-07-29 20:33:00 Test Item Value Reference Range Interpretation Comments Ur Tricyclic Antidepressants Negative ng/mL Screen (test code = 15962-8) [facility] ElizabethUrine oxycodone detection by screening [id number] 20:33:00 Test Item Value Reference Range Interpretation Comments Urine Oxycodone Screen (test Negative ng/mL code = 52492-6) [facility] ElizabethSpecific gravity of Urine by Automated test strip 2019-07-29 20:33:00 Test Item Value Reference Range Interpretation Comments Urine Specific [place] (test code = 1.006 80264-2) [facility] ElizabethUrine pH measurement by automated test [id number] 20:33:00 Test Item Value Reference Range Interpretation Comments Urine pH (test code = 43997-7) 6.5 [facility] drug screen comment [id number] 20:33:00 Test Item Value Reference Range Interpretation Comments Urine Drug Screen Comment (test code See Note = 60803-7) [facility] [id number] 20:33:00 Test Item Value Reference Range Interpretation Comments Urine Methamphetamines Screen Negative ng/mL (test code = 41991-6) [facility] propoxyphene screening [id number] 20:33:00 Test Item Value Reference Range Interpretation Comments Urine Propoxyphene Screen Negative ng/mL (test code = 99605-2) [facility] ElizabethUrine amphetamines detection by screening method 2019-07-29 20:33:00 Test Item Value Reference Range Interpretation Comments Urine Amphetamines Screen Negative ng/mL (test code = 45252-4) [facility] ElizabethUrine buprenorphine screen with reflex confirmation 2019-07-29 20:33:00 Test Item Value Reference Range Interpretation Comments Urine Buprenorphine (test code Negative ng/mL = 3414-0) [facility] ElizabethUrine barbiturates detection by screening method 2019-07-29 20:33:00 Test Item Value Reference Range Interpretation Comments Urine Barbiturates Screen Negative ng/mL (test code = 81928-3) [facility] ElizabethUrine benzodiazepines detection by screening method 2019-07-29 20:33:00 Test Item Value Reference Range Interpretation Comments Urine Benzodiazepines Screen Negative ng/mL (test code = 34004-3) [facility] ElizabethUrine benzoylecgonine detection by screening method 2019-07-29 20:33:00 Test Item Value Reference Range Interpretation Comments Urine Cocaine Screen (test Negative ng/mL code = 26622-7) [facility] ElizabethUrine methadone [id number] 20:33:00 Test Item Value Reference Range Interpretation Comments Urine Methadone, Qualitative Negative ng/mL (test code = 77634-5) [facility] [id number] 20:33:00 Test Item Value Reference Range Interpretation Comments Urine Opiates Screen (test Negative ng/mL code = 46322-6) [facility] ElizabethUrine phencyclidine detection by screening method 2019-07-29 20:33:00 Test Item Value Reference Range Interpretation Comments Urine Phencyclidine Screen Negative ng/mL (test code = 48566-5) [facility] ElizabethUrine cannabinoids detection by screening method 2019-07-29 20:33:00 Test Item Value Reference Range Interpretation Comments Urine Cannabinoids (test code Negative ng/mL = 36218-5) [facility] ElizabethScreening urine tricyclic antidepressants detection 2019-07-29 20:33:00 Test Item Value Reference Range Interpretation Comments Ur Tricyclic Antidepressants Negative ng/mL Screen (test code = 55289-7) [facility]. AnamikaUrine oxycodone detection by screening [id number] 20:33:00 Test Item Value Reference Range Interpretation Comments Urine Oxycodone Screen (test Negative ng/mL code = 64017-6) [facility] AbadthSpecific gravity of Urine by Automated test strip 2019-07-29 20:33:00 Test Item Value Reference Range Interpretation Comments Urine Specific [place] (test code = 1.006 12235-6) [facility] WillsonUrine pH measurement by automated test [id number] 20:33:00 Test Item Value Reference Range Interpretation Comments Urine pH (test code = 89362-6) 6.5 [facility]. PollothUrine drug screen comment [id number] 20:33:00 Test Item Value Reference Range Interpretation Comments Urine Drug Screen Comment (test code See Note = 30147-4) [facility]. PollothPOC [id number] 22:32:09 Test Item Value Reference Range Interpretation Comments Glucose POC (test 264 mg/dL 74-106 H POC Glucos e used on code = Glucose POC) critical ly ill patients is considered " off-label use" and has no t been cleared or appr leonel by the FDA. Altern ative testing methods should be considered i f the patient is crit ically ill. WHOLE BLOOD [id number] 19:35:00 Test Item Value Reference Range Interpretation Comments WHOLE BLOOD GLUCOSE 399 MG/DL 70-99 Fastin g glucose (test code = POC GLU) normal <100 MG/DL- [facility] recommend ation NEG STREP SCRN CONFIRM [id number] 10:23:00 Test Item Value Reference Range Interpretation Comments Report Text (test DMB 2019-07-27 925 code = Report Text) Report Text7 (test ISOLATION IN PROGRESS code = Report Text7) Report Text8 (test PRELIMINARY REPORT code = Report Text8) Report Text9 (test code = Report Text9) Report Text10 (test JM 2019-07-28 1023 code = Report Text10) Report Text11 (test STREP SCREEN NEGATIVE, code = Report CULTURE NEGATIVE FOR Text11) Report Text12 (test GROUP A STREP - FINAL code = Report REPORT. Text12) WHOLE BLOOD [id number] 06:10:00 Test Item Value Reference Range Interpretation Comments WHOLE BLOOD GLUCOSE 259 MG/DL 70-99 H Fastin g glucose (test code = POC GLU) normal <100 MG/DL- [facility] recommend ation RPR [id number] 17:40:00 Test Item Value Reference Range Interpretation Comments SCREEN RPR (test NONREACTIVE NONREACTIVE code = SCRN RPR) NR = NON-REACTIVE R = REACTIVE HEPATITIS C ANTIBODY [id number] 16:34:00 Test Item Value Reference Range Interpretation Comments SCRN HCV (test code NEGATIVE NEGATIVE Hepatiti s C Antibody test = SCRN HCV) is for screenin g purposes only. All react muriel will be confirmed by additional test ing. ER SCREEN FOR HIV 16:34:00 Test Item Value Reference Range Interpretation Comments HIV 1/2 AB (test NEGATIVE NEGATIVE This test i s used for code = SCRN HIV) SCREENING p urposes only. All reactive re sults are prelimenary and confirmation re sults will follow. WHOLE BLOOD [id number] 11:50:00 Test Item Value Reference Range Interpretation Comments WHOLE BLOOD GLUCOSE 384 MG/DL 70-99 H Fastin g glucose (test code = POC GLU) normal <100 MG/DL- [facility] recommend ation LIPID [id number] 08:25:00 Test Item Value Reference Range Interpretation Comments CHOLEST (test code = 157 MG/DL 0-200 CHOLEST) TRIGLYCE (test code = 338 MG/DL 0-150 H TRIGLYCE) HDL (test code = HDL) 30 MG/DL 30-65 NEGATI VE RISK FACTOR FOR HEART DISEA SE IF HDL >/=60 mg/dl MAJOR RISK FACTOR FOR HEART DISEASE IF HDL <40 mg/dL CALC LDL (test code = 59 MG/DL <100 CALC LDL) THYROID STIMULATION [id number] 08:25:00 Test Item Value Reference Range Interpretation Comments TSH (test code = TSH) 1.17 UIU/ML 0.465-4.68 WHOLE BLOOD [id number] 07:55:00 Test Item Value Reference Range Interpretation Comments WHOLE BLOOD GLUCOSE 328 MG/DL 70-99 Fastin g glucose (test code = POC GLU) normal <100 MG/DL- [facility] recommend ation WHOLE BLOOD [id number] 07:55:00 Test Item Value Reference Range Interpretation Comments WHOLE BLOOD GLUCOSE 240 MG/DL 70-99 Fastin g glucose (test code = POC GLU) normal <100 MG/DL- [facility] recommend ation % HEMOGLOBIN A1C (GLYCATED)2019-07-27 07:52:00 Test Item Value Reference Range Interpretation Comments HEMOGLOBIN A1C (test 10.2 % 0-6 H TH ERAPEUTIC TARGET code = GLYCO-) FOR THE TREAT MENT OF DIABETES M RENETTAITUS PATIENTS IS < 7 % HBA1C. [facility] DIABETES [facility]ARE 2002;25:S33-S49 CREATINE [id number] 18:38:00 Test Item Value Reference Range Interpretation Comments CK (test code = CK) 965 U/L 55-170 H CREATINE [id number] 15:35:00 Test Item Value Reference Range Interpretation Comments CK (test code = CK) 1122 U/L 55-170 H URINE DRUG [id number] 15:27:00 Test Item Value Reference Range Interpretation Comments AMPHET (test code = NEGATIVE NEGATIVE This is an unconfirmed BAMP) screening. Res ult are to be used for medical purposes (treat ment) only. Not inte nded for non-medical pur poses. Cut-off concent ration for a positive result for each drug: Amphetamine - 1 ,000 ng/ml Barbitura te - 200 ng/ml Benzodiaz epine - 200 ng/ml Canna binoids - 50 ng/ml Coca ine - 300 ng/ml Opiat es - 300 ng/ml PCP - 25 ng/ml BARBITURATES (test NEGATIVE NEGATIVE code = BBAR) BENZO (test code = NEGATIVE NEGATIVE BBENZ) CANNABS (test code = NEGATIVE NEGATIVE BCANN) COCAINE (test code = NEGATIVE NEGATIVE BCOC) OPIATES (test code = NEGATIVE NEGATIVE BOPI) PCP (test code = NEGATIVE NEGATIVE BMTPCP) WHOLE BLOOD [id number] 15:10:00 Test Item Value Reference Range Interpretation Comments WHOLE BLOOD GLUCOSE 288 MG/DL 70-99 H Fastin g glucose (test code = POC GLU) normal <100 MG/DL- [facility] recommend ation [id number] 13:28:00 Test Item Value Reference Range Interpretation Comments GLUCOSE (test code = URGLU) >=1000 MG/DL NEG-100 BILIRUBN (test code = URBILI) NEGATIVE NEGATIVE KETONE (test code = URKET) NEGATIVE MG/DL NEGATIVE BLOOD (test code = URBLD) NEGATIVE UR PH (test code = URPH) 5.0 5.0-7.5 PROTEIN (test code = URPRO) NEGATIVE MG/DL NEGATIVE NITRITES (test code = URNIT) NEGATIVE NEGATIVE UROBILINGEN (test code = 1.0 EU/DL 0.2-1.0 URURO) LEUKOCYT (test code = URLEU) NEGATIVE NEGATIVE UA COLOR (test code = UA YELLOW YELLOW COLOR) CLARITY (test code = CLARITY) CLEAR CLEAR SP GRAV (test code = URSPGRAV) 1.032 1.000-1.025 H UAMICRO (test code = UAMICRO) NO PROTHROMBIN TIME WITH [id number] 13:26:00 Test Item Value Reference Range Interpretation Comments PROTHROMBIN TIME 10.5 SECONDS 10.1-12.7 INR Usual R blaise = 2 (test code = PT) to 3 for pr evention of deep vein thrombosis (DVT ) INR (test code = INR) 0.9 [id number] 13:26:00 Test Item Value Reference Range Interpretation Comments PTT (test code = 29.4 SECONDS 25.0-36.5 HEPARIN THE RAPEUTIC PTT) RANGE 57-92 SEC ONDS D-DIMER, [id number] 13:25:00 Test Item Value Reference Range Interpretation Comments D-DIMER (test 152 ng/mL (FEU) 0-500 VALUES OF Q UANTITATIVE code = DDIMER) D-DIMER LESS THAN 499 ng/mL HAVE BEEN REPORTED TO BE ASSOCIATED WITH A LOW PROBABILITY OF DEEP VEIN THROMBOSIS/PULM ONARYEMB OLISM. THIS BRENDA T ALONE SHOULD NOT BE U SED TO RULE OUT DVT/PE . [id number] 12:15:00 Test Item Value Reference Range Interpretation Comments WBC (test code = 7.8 K/UL 3.5-10.9 WBC) RBC (test code = 4.54 M/UL 4.3-5.7 RBC) HGB (test code = 14.0 G/DL 13.0-17.9 HGB) HCT (test code = 41.4 % 38-52 HCT) MCV (test code = 91.2 FL 80-98 MCV) MCH (test code = 30.8 PG 28-32 MCH) MCHC (test code = 33.8 G/DL 32.5-36.5 MCHC) RDW (test code = 12.0 % 11.5-14.5 RDW) PLT (test code = 258 K/UL 150-450 PLT) MPV (test code = 10.3 FL 7.4-10.4 MPV) MANDIFF (test code = NO MANDIFF) SCAN (test code = NO SCAN) NEUT% (test code = 46.6 % 40-75 NEUT%) LYMPH% (test code = 39.5 % 24-44 LYMPH%) MONO% (test code = 9.9 % 0-13 MONO%) EOS% (test code = 2.7 % 0-4 EOS%) BASO % (test code = 1.0 % 0-2 BASO%) IG (test code = IG) 0 % 0-1 IG% (test code = 0.3 % 0-1 IG% = Metam yelocytes, IG%) Myelocytes, and Promyelocytes. (Immature neutr ophils not including " bands".) > 3% IG indic ates risk of sepsis NRBC% (test code = 0 /100 WBC NRBC%) ABS NEUT (test code 3.6 K/UL 1.2-7.2 = NEUT) C-REACTIVE [id number] 12:14:00 Test Item Value Reference Range Interpretation Comments CRP (test code = CRP) <0.5 mg/dL 0.5-1.0 [id number] 12:14:00 Test Item Value Reference Range Interpretation Comments SODIUM (test code = 136 MMOL/L 137-145 L NA) K+ (test code = 4.1 MMOL/L 3.5-5.1 PLEASE NOTE NEW KSERUM) REFERENCE RANGE (S) IN EFFECT EFFECTIVE 010 - NEW ANALYZER (V ITROS 5600) CHLORIDE (test code 102 MMOL/L 98-107 = CL) CO2 (test code = 25 MMOL/L 22-30 CO2) BUN (test code = 15 MG/DL 9-20 BUN) CREA (test code = 0.6 MG/DL 0.8-1.5 L CREA) GLUCOSE (test code 278 MG/DL 70-99 H Fasting glucose = GLUCOSE) normal <100 MG/ DL- [employer] recommendation* * CALCIUM (test code 9.6 MG/DL 8.4-10.2 = CABLOOD) TOTPROT (test code 7.7 G/DL 6.3-8.2 = TOTPROT) ALBUMIN (test code 4.3 G/DL 3.5-5.0 = ALBSERUM) BILITOT (test code 0.3 MG/DL 0.2-1.3 = BILITOT) AST (test code = 67 U/L 15-46 H AST) PHOSALK (test code 91 U/L 38-126 = PHOSALK) ALTV (test code = 48 U/L 13-69 ALTV) GFR (test code = 156 A GFR of >9 0 GFR) mL/min/1.73m2 mL/min/1.73m2 is considered norm al. CREATINE [id number] 12:14:00 Test Item Value Reference Range Interpretation Comments CK (test code = CK) 2046 U/L 55-170 H [id number] 12:14:00 Test Item Value Reference Range Interpretation Comments FERRITIN (test code = FERR) 136 NG/ML 18-464 [id number] 12:14:00 Test Item Value Reference Range Interpretation Comments LDH (test code = LDH) 705 U/L 313-618 H BLOOD ALCOHOL (ETOH)2019-07-26 12:14:00 Test Item Value Reference Range Interpretation Comments ALCOHOL BLOOD LEVEL <10 MG/DL 0-10 Results are to be used (test code = ALC BLD) for me dical purposes (treatment) onl y. Not intended for no n medical purpose s. TROPONIN I - [id number] 12:08:00 Test Item Value Reference Range Interpretation Comments TROP-I (test code <0.012 ng/ml 0.012-0.033 = TROP-I) INTERPRETIVE DA TA A TROPONIN OF L ESS THAN 0.034 NG/ML IS CONSIDERED NEGA TIVE A TROPONIN OF 0.0 34 - 0.119 NG/ML IS CONSIDERED SIMON ZONE A TROPONIN =/> 0. 120 NG/ML IS CONSIDERED P OSITIVE PROBRAIN NATRIURETIC [id number] 12:08:00 Test Item Value Reference Range Interpretation Comments NT-PROBNP (test code 19 pg/mL Exclusi on for heart = PROBNP) failure for pat ients of all ages is 300 pg/mL. Inclusion for h eart failure for pat ients age <50 is 450 pg/m L; for patients age 50 -75 is 900 pg/mL; for russell ents age >75 is 1800 pg/ mL. GROUP A STREP [id number] 11:25:00 Test Item Value Reference Range Interpretation Comments GROUP A STREP SCREEN NEGATIVE NEGATIVE Cultu re set up to (test code = STREPGRA) confi rm negative Strep Screen STREP A INTERNAL POS PASS PASS CNTRL (test code = STRPAIPC) STREP A LOT # (test code [id number] = STRPALOT) STREP A EXPIRATION DATE 03-30 (test code = STRPAEXP) Culture set up to confirm negative Strep ScreenINFLUENZA [id number] 11:25:00 Test Item Value Reference Range Interpretation Comments FLU A (test code = FLU A) NEGATIVE NEGATIVE FLU B (test code = FLU B) NEGATIVE NEGATIVE FLU INTERNAL POSITIVE CNTRL (test PASS PASS code = FLU IPC) INFLUENZA LOT # (test code = FLULOT) [id number] INFLUENZA EXPIRATION DATE (test code 07-29 = FLUEXP) VENOUS BLOOD [id number] 11:04:00 Test Item Value Reference Range Interpretation Comments SITE (test code = SITE) VENOUS SITE ALLENS (test code = ALLENS) NA O2 EQUIP (test code = O2 EQUIP) NA O2-DEVICE PH (test code = MVPH) 7.37 7.32-7.42 PCO2 (test code = MVPCO2) 48 MMHG 41.0-51.0 PO2 (test code = MVPO2) 34 MMHG MVHCO3 (test code = MVHCO3) 27.7 24.0-28.0 BE (test code = MVBE) 1.6 -2.0-+2.0 THB (test code = MVTHB) 14.4 G/DL 13.5-18 %O2 HB (test code = MV%O2 HB) 69.3 % 40.0-70.0 %COHB (test code = MV%COHB) 3.8 % %MET HB (test code = MV%METHB) 0.9 % 0.4-1.5 BG LAB VENOUS [id number] 11:04:00 Test Item Value Reference Range Interpretation Comments SITE (test code = SITE) VENOUS SITE BGLACVEN (test code = BGLACVEN) 9.0 mg/dL 6.0-18.0 CT THORAX W/O [id number] 09:23:[address] [id number] IMAGING REPORTPatient Name: Arcadio FUENTES of Service: [id number]: 43 Sex: M Order #: [id number] Room: [facility]: 1975 X-Ray Number: [id number] Record Number: [id number] Hospital Number: [id number] Physician: ENEDELIA PRESSLEYOLAOrdering Physician: LINDSEY PRESSLEY chest.History: Shortness of breath.Technique: Noncontrast CT images. This CT exam was performed using one ormore of the f ollowing dose reduction techniques: Automated exposurecontrol, adjustment of the MA and/or KV according to patient size or use ofiterative reconstruction technique.Comparison: None.Findings:No evidenceof a pulmonary infiltrate or consolidation. There is anapproximately 4.5 cm pulmonary nodule in the superior segment of the leftupper lobe. There is a 6 mm pulmonary nodule at the right lung base onimage 62. No pleural effusion or pneumothorax. There is a small amount ofdependent atelectasis.No pathologically enlarged axillary or mediastinal lymph nodes. There issome low-density soft tissue in the anterior mediastinum which likelyrepresents thymus tissue. The main trunk of the pulmonary artery is withinnormal limits. The ascending thoracic aorta is nonaneurysmal. Nosignificant pericardial effusion.The visualized portions of the thyroidgland are within normal limits.The visualized structures in the upper abdomen are grossly normal. Milddegenerative changes of the spine. No aggressive appearing osseous lesion.Stool is seen in the colon.Impression:1. No evidence of a pulmonary infiltrate or consolidation.2. There are bilateral pulmonary micronodules. A follow-up chest CT isrecommended in 3-6 months to document stability.Electronically Signed By: Horacio Islas M.D., 07/26/2019 9:20 AMLegally authenticated by BELEN POPE JR 2019-07-26 09:20:50GLUBED 2019-07-02 03:00:00 Test Item Value Reference Range Interpretation Comments GLUBED (test code = GLUBED) 423 mg/dL 70-110 H [id number] 03:00:00 Test Item Value Reference Range Interpretation Comments GLUBED (test code = GLUBED) 287 mg/dL 70-110 H [id number] 03:00:00 Test Item Value Reference Range Interpretation Comments GLUBED (test code = GLUBED) 328 mg/dL 70-110 H [id number] 03:00:00 Test Item Value Reference Range Interpretation Comments GLUBED (test code = GLUBED) 414 mg/dL 70-110 H [id number] 02:59:00 Test Item Value Reference Range Interpretation Comments GLUBED (test code = GLUBED) 276 mg/dL 70-110 H ACETONE [id number] 11:08:00 Test Item Value Reference Range Interpretation Comments ACETONE BLOOD (test code = ACETB) NEGATIVE NEGATIVE DRUGS OF ABUSE SCREEN [id number] 10:47:00 Test Item Value Reference Range Interpretation Comments URN COCAINE (test code NEGATIVE NEGATIVE Cocai ne cut-off = COCAURN) concentration: 300 ng/mL URN CANNABINOIDS (test NEGATIVE NEGATIVE Canna binoids cut-off code = CANNABURN) concentrat ion: 50 ng/mL URN AMPHETAMINE (test NEGATIVE NEGATIVE Amphet amine cut-off code = AMPHETURN) concentrat ion: 1000 ng/mL URN BARBITURATE (test NEGATIVE NEGATIVE Barbit urate cut-off code = BARBITURN) concentrat ion: 200 ng/mL URN BENZODIAZEPINE NEGATIVE NEGATIVE Benzodiaz epine cut-off (test code = BENZOURN) sam ntration: 200 ng/mL URN OPIATES (test code NEGATIVE NEGATIVE Opiat es cut-off = OPIATURN) concentration: 200 ng/mL URN PHENCYCLIDINE (PCP) NEGATIVE NEGATIVE Phen cyclidine(PCP) (test code = PHENCURN) cut-o ff concentration: 25 ng/ml URN METHADONE (test NEGATIVE NEGATIVE Methadon e cut-off code = METHAURN) concentrati on: 300 ng/mL URINALYSIS [id number] 10:39:00 Test Item Value Reference Range Interpretation Comments UA COLOR (test code = COLU) LT YELLOW UA APPEARANCE (test code = CLEAR APPU) UA GLUCOSE DIPSTICK (test 1000 mg/dl mg/dl NORMAL A code = DGLUU) UA BILIRUBIN DIPSTICK (test NEGATIVE mg/dL NEGATIVE code = BILU) UA KETONE DIPSTICK (test NEGATIVE mg/dl NEGATIVE code = KETU) UA SPECIFIC GRAVITY (test 1.015 1.000-1.030 code = SGU) UA BLOOD DIPSTICK (test NEGATIVE Jose/micL NEGATIVE code = GERSON) UA PH DIPSTICK (test code = 5.0 5.0-9.0 MITCHEL) UA PROTEIN DIPSTICK (test NEGATIVE mg/dl NEGATIVE code = PROU) UA UROBILINIOGEN DIPSTICK NORMAL mg/dl NORMAL (test code = URO) UA NITRITE DIPSTICK (test NEGATIVE NEGATIVE code = KAL) UA LEUKOCYTE ESTERASE NEGATIVE Janie/micL NEGATIVE DIPSTICK (test code = LEUU) UA WBC (test code = WBCU) 0-3 WBC/HPF NONE UA RBC (test code = RBCU) 0-2 RBC/HPF 0-3 UA EPITHELIAL CELLS (test 0-3 EPI/HPF 0-3 code = EPIU) UA BACTERIA (test code = TRACE NONE BACU) COMPREHENSIVE METABOLIC [id number] 10:36:00 Test Item Value Reference Range Interpretation Comments SODIUM (test code = NA) 132 mmol/l 134.0-147.0 L POTASSIUM (test code = K) 3.8 mmol/L 3.6-5.2 N CHLORIDE (test code = CL) 97 mmol/l 98.0-107.0 L CARBON DIOXIDE (test code = CO2) 23.1 mmol/l 21.0-33.0 N ANION GAP (test code = GAP) 15.7 0-20 N GLUCOSE (test code = GLU) 412 mg/dl 70.0-110.0 H BLOOD UREA NITROGEN (test code = 13 mg/dl 7.0-18.0 N BUN) CREATININE (test code = CREAT) 0.91 mg/dL 0.60-1.30 N GFR NON BLACK (test code = 97 mL/min 95-105 N GFRNONBLACK) GFR BLACK (test code = GFRBLACK) 117 mL/min 115-127 N TOTAL PROTEIN (test code = PROT) 7.3 gm/dL 6.4-8.2 N ALBUMIN (test code = ALB) 3.4 gm/dl 3.2-4.7 N CALCIUM (test code = CA) 8.1 mg/dl 8.0-10.5 N BILIRUBIN TOTAL (test code = 0.1 mg/dl 0.0-1.0 N BILT) SGOT/AST (test code = AST) 6 Units/L 15.0-37.0 L SGPT/ALT (test code = ALT) 22 Units/L 12.0-78.0 N ALKALINE PHOSPHATASE TOTAL (test 107 Units/L 50.0-136.0 N code = ALKP) [id number] 10:36:00 Test Item Value Reference Range Interpretation Comments ALCOHOL (test code 0.00 gm/dL 0.00-0.00 N ETHYL ALC OHOL VALUES - = ALC) INTERPRETATION: 0.050 GM/DL - NOT INT OXICATED 0.100 GM/DL - INTOXICATED 0.3 50-0.450 GM/DL - SEVEREL Y INTOXICATED 0.5 50 GM/DL- FATAL INTOXICAT ION COMPREHENSIVE METABOLIC [id number] 10:32:00 Test Item Value Reference Range Interpretation Comments SODIUM (test code = NA) 132 mmol/l 134.0-147.0 L POTASSIUM (test code = K) 3.8 mmol/L 3.6-5.2 N CHLORIDE (test code = CL) 97 mmol/l 98.0-107.0 L CARBON DIOXIDE (test code = CO2) 23.1 mmol/l 21.0-33.0 N ANION GAP (test code = GAP) 15.7 0-20 N GLUCOSE (test code = GLU) mg/dl 70.0-110.0 BLOOD UREA NITROGEN (test code = mg/dl 7.0-18.0 BUN) CREATININE (test code = CREAT) mg/dL 0.60-1.30 GFR NON BLACK (test code = mL/min 95-105 GFRNONBLACK) GFR BLACK (test code = GFRBLACK) mL/min 115-127 TOTAL PROTEIN (test code = PROT) gm/dL 6.4-8.2 ALBUMIN (test code = ALB) gm/dl 3.2-4.7 CALCIUM (test code = CA) mg/dl 8.0-10.5 BILIRUBIN TOTAL (test code = mg/dl 0.0-1.0 BILT) SGOT/AST (test code = AST) Units/L 15.0-37.0 SGPT/ALT (test code = ALT) Units/L 12.0-78.0 ALKALINE PHOSPHATASE TOTAL (test Units/L 50.0-136.0 code = ALKP) [id number] 10:32:00 Test Item Value Reference Range Interpretation Comments ALCOHOL (test code = ALC) gm/dL 0.00-0.00 CBC W/AUTO [id number] 10:23:00 Test Item Value Reference Range Interpretation Comments WHITE BLOOD CELL (test code = 7.5 K/mm3 4.5-11.0 N WBC) RED BLOOD CELL (test code = 4.33 M/mm3 4.40-5.90 L RBC) HEMOGLOBIN (test code = HGB) 13.8 gm/dL 13.0-17.0 N HEMATOCRIT (test code = HCT) 39.5 % 36.0-48.0 N MEAN CELL VOLUME (test code = 91.2 UM3 80.0-94.0 N MCV) MEAN CELL HGB (test code = MCH) 31.9 UUG 25.5-32.5 N MEAN CELL HGB CONCETRATION 34.9 gm/dL 29.0-35.5 N (test code = MCHC) RED CELL DISTRIBUTION WIDTH 12.8 % 11.5-15.0 N (test code = RDW) RED CELL DISTRIBUTION WIDTH SD 42.7 fL 34.8-50.2 N (test code = RDW-SD) PLATELET COUNT (test code = 248 K/mm3 150-400 N PLT) MEAN PLATELET VOLUME (test code 10.5 fl 7.4-10.4 H = MPV) NEUTROPHIL % (test code = NT%) 56.7 % 49.0-76.0 N IMMATURE GRANULOCYTE % (test 0.9 % 0.0-0.4 H code = IG%) LYMPHOCYTE % (test code = LY%) 29.2 % 23.0-38.0 N MONOCYTE % (test code = MO%) 9.2 % 1.0-10.0 N EOSINOPHIL % (test code = EO%) 3.3 % 1.0-5.0 N BASOPHIL % (test code = BA%) 0.7 % 0.0-1.0 N NEUTROPHIL # (test code = NT#) 4.3 K/mm3 2.4-6.3 N IMMATURE GRANULOCYTE # (test 0.07 x10 3/uL 0.00-0.07 N code = IG#) LYMPHOCYTE # (test code = LY#) 2.2 K/mm3 1.2-4.0 N MONOCYTE # (test code = MO#) 0.7 K/mm3 0.0-0.6 H EOSINOPHIL # (test code = EO#) 0.3 K/MM3 0.0-0.7 N BASOPHIL # (test code = BA#) 0.1 K/mm3 0.0-0.2 N URINALYSIS [id number] 10:19:00 Test Item Value Reference Range Interpretation Comments UA COLOR (test code = COLU) UA APPEARANCE (test code = APPU) UA GLUCOSE DIPSTICK (test 1000 mg/dl mg/dl NORMAL A code = DGLUU) UA BILIRUBIN DIPSTICK (test NEGATIVE mg/dL NEGATIVE code = BILU) UA KETONE DIPSTICK (test NEGATIVE mg/dl NEGATIVE code = KETU) UA SPECIFIC GRAVITY (test 1.015 1.000-1.030 code = SGU) UA BLOOD DIPSTICK (test NEGATIVE Jose/micL NEGATIVE code = GERSON) UA PH DIPSTICK (test code = 5.0 5.0-9.0 MITCHEL) UA PROTEIN DIPSTICK (test NEGATIVE mg/dl NEGATIVE code = PROU) UA UROBILINIOGEN DIPSTICK NORMAL mg/dl NORMAL (test code = URO) UA NITRITE DIPSTICK (test NEGATIVE NEGATIVE code = KAL) UA LEUKOCYTE ESTERASE NEGATIVE Janie/micL NEGATIVE DIPSTICK (test code = LEUU) UA WBC (test code = WBCU) WBC/HPF NONE UA RBC (test code = RBCU) RBC/HPF 0-3 UA EPITHELIAL CELLS (test EPI/HPF 0-3 code = EPIU) UA BACTERIA (test code = NONE BACU) [id number] 11:41:00 Test Item Value Reference Range Interpretation Comments GLUBED (test code = 125 mg/dL 74-106 H Performe 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[facility] [id number] 06:55:00 Test Item Value Reference Range Interpretation Comments GLUBED (test code = 228 mg/dL 74-106 H Performe 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[facility] CBC W/O [id number] 03:41:00 Test Item Value Reference Range Interpretation Comments WHITE BLOOD CELL (test code = 6.9 K/mm3 4.5-12.5 N WBC) RED BLOOD CELL (test code = 4.47 mill/mm3 4.0-5.8 N RBC) HEMOGLOBIN (test code = HGB) 14.0 gram/dL 13.0-17.5 N HEMATOCRIT (test code = HCT) 39.8 % 42.0-52.0 L MEAN CELL VOLUME (test code = 89.0 fL 80-98 N MCV) MEAN CELL HGB (test code = MCH) 31.3 picogram 27.0-33.0 N MEAN CELL HGB CONCETRATION 35.2 gram/dL 33.0-36.0 N (test code = MCHC) RED CELL DISTRIBUTION WIDTH 12.9 % 11.6-16.2 N (test code = RDW) PLATELET COUNT (test code = 287 K/mm3 150-450 N PLT) MEAN PLATELET VOLUME (test code 10.0 fL 6.7-11.0 N = MPV) CBC W/O [id number] 03:39:00 Test Item Value Reference Range Interpretation Comments WHITE BLOOD CELL (test code = K/mm3 4.5-12.5 WBC) RED BLOOD CELL (test code = RBC) mill/mm3 4.0-5.8 HEMOGLOBIN (test code = HGB) 14.0 gram/dL 13.0-17.5 N HEMATOCRIT (test code = HCT) % 42.0-52.0 MEAN CELL VOLUME (test code = fL 80-98 MCV) MEAN CELL HGB (test code = MCH) picogram 27.0-33.0 MEAN CELL HGB CONCETRATION (test gram/dL 33.0-36.0 code = MCHC) RED CELL DISTRIBUTION WIDTH % 11.6-16.2 (test code = RDW) PLATELET COUNT (test code = PLT) K/mm3 150-450 MEAN PLATELET VOLUME (test code fL 6.7-11.0 = MPV) BASIC METABOLIC [id number] 03:38:00 Test Item Value Reference Range Interpretation Comments SODIUM (test code = 137 mmol/L 136-145 N NA) POTASSIUM (test code 3.9 mmol/L 3.5-5.1 N = K) CHLORIDE (test code = 104.0 mmol/L 98-107 N CL) CARBON DIOXIDE (test 28.0 mmol/L 21-32 N code = CO2) ANION GAP (test code 8.9 10-20 L = GAP) GLUCOSE (test code = 217 mg/dL 74-106 H GLU) BLOOD UREA NITROGEN 12 mg/dL 7-18 N (test code = BUN) GLOMERULAR FILTRATION > 60 mL/min >=60 Estima wade GFR by RATE (test code = using Toshia fied MDRD GFR) formula.Chronic kidney disease is defined as [facility] kidney damageor GFR <60 mL/min/1.73 m2 for >3 months. CREATININE (test code 0.80 mg/dL 0.7-1.3 N = CREAT) BUN/CREATININE RATIO 15.0 10-20 N (test code = BUN/CREA) CALCIUM (test code = 8.7 mg/dL 8.5-10.1 N CA) HEPATIC FUNCTION [id number] 03:38:00 Test Item Value Reference Range Interpretation Comments TOTAL PROTEIN (test 7.4 gram/dL 6.4-8.2 N code = PROT) ALBUMIN (test code = 3.5 g/dL 3.4-5.0 N ALB) GLOBULIN (test code = 3.9 gram/dL 2.7-4.2 N GLOB) ALBUMIN/GLOBULIN RATIO 0.9 0.75-1.50 N (test code = A/G) BILIRUBIN TOTAL (test 0.20 mg/dL 0.0-1.0 N code = BILT) BILIRUBIN DIRECT (test < 0.05 mg/dL 0.0-0.20 N code = BILD) SGOT/AST (test code = 20 IUnit/L 15-37 N AST) SGPT/ALT (test code = 34 IUnit/L 12-78 N ALT) ALKALINE PHOSPHATASE 101 IUnit/L 45-117 N Note change in TOTAL (test code = reference range due ALKP) to change in reagent. [id number] 03:38:00 Test Item Value Reference Range Interpretation Comments ALCOHOL (test code < 3 mg/dL 0.0-3.0 N --------- --------INTERPRE = ALC) TIVE DATA NOTE: POSITIVE SCREEN ING RESULTS SHOULD BE CONSIDERED PRESUMPTIVE.WHE N COLLECTED FOR M EDICAL PURPOSES ONLY. SPECIMEN WILL NOTBE JAH ECTED BY CHAIN OF CUSTOD Y.IF A CONFIRMATION OF POSITIVE RESULTS IS EMELIA RED, ACONFIRMATION T EST MUST BE REQUESTED BY THE PHYSICIAN AT AN ADDITIONAL CHARGE [facility] URINALYSIS [id number] 03:38:00 Test Item Value Reference Range Interpretation Comments UA COLOR (test code = YELLOW YELLOW COLU) UA APPEARANCE (test code CLEAR CLEAR = APPU) UA GLUCOSE DIPSTICK (test 300 (2+) mg/dL NEGATIVE A code = DGLUU) UA BILIRUBIN DIPSTICK NEGATIVE mg/dL NEGATIVE (test code = BILU) UA KETONE DIPSTICK (test NEGATIVE mg/dL NEGATIVE code = KETU) UA SPECIFIC GRAVITY (test 1.023 1.001-1.035 code = SGU) UA BLOOD DIPSTICK (test Negative mg/dL NEGATIVE code = GERSON) UA PH DIPSTICK (test code 5.0 5.0-8.0 = MITCHEL) UA PROTEIN DIPSTICK (test 10 (Trace) mg/dL NEGATIVE A code = PROU) UA UROBILINIOGEN DIPSTICK Normal mg/dL NEGATIVE (test code = URO) UA NITRITE DIPSTICK (test NEGATIVE NEGATIVE code = KAL) UA LEUKOCYTE ESTERASE W NEGATIVE Janie/uL NEGATIVE REFLEX (test code = LEUUR) UA WBC (test code = WBCU) 0-5 per HPF 0-5 UA RBC (test code = RBCU) 0-2 #/HPF 0-5 UA EPITHELIAL CELLS (test Rare (0-1/hpf) per FEW code = EPIU) HPF UA BACTERIA (test code = NONE SEEN #/HPF NONE BACU) UA MUCUS (test code = FEW #/LPF FEW MUCU) Urine Source? Clean CatchDRUGS OF ABUSE SCREEN [id number] 03:38:00 Test Item Value Reference Range Interpretation Comments URN COCAINE (test code = COCAURN) NEGATIVE <300 ng/mL URN CANNABINOIDS (test code = NEGATIVE <50 ng/mL CANNABURN) URN AMPHETAMINE (test code = NEGATIVE <1000 ng/mL AMPHETURN) URN BARBITURATE (test code = NEGATIVE <200 ng/mL BARBITURN) URN BENZODIAZEPINE (test code = NEGATIVE <200 ng/mL BENZOURN) URN OPIATES (test code = OPIATURN) NEGATIVE <300 ng/mL URN PHENCYCLIDINE (PCP) (test code = NEGATIVE <25 ng/mL PHENCURN) URN METHADONE (test code = METHAURN) NEGATIVE <300 ng/mL Urine Source? Clean CatchURINALYSIS [id number] 03:35:00 Test Item Value Reference Range Interpretation Comments UA COLOR (test code = YELLOW YELLOW COLU) UA APPEARANCE (test code CLEAR CLEAR = APPU) UA GLUCOSE DIPSTICK (test 300 (2+) mg/dL NEGATIVE A code = DGLUU) UA BILIRUBIN DIPSTICK NEGATIVE mg/dL NEGATIVE (test code = BILU) UA KETONE DIPSTICK (test NEGATIVE mg/dL NEGATIVE code = KETU) UA SPECIFIC GRAVITY (test 1.023 1.001-1.035 code = SGU) UA BLOOD DIPSTICK (test Negative mg/dL NEGATIVE code = GERSON) UA PH DIPSTICK (test code 5.0 5.0-8.0 = MICTHEL) UA PROTEIN DIPSTICK (test 10 (Trace) mg/dL NEGATIVE A code = PROU) UA UROBILINIOGEN DIPSTICK Normal mg/dL NEGATIVE (test code = URO) UA NITRITE DIPSTICK (test NEGATIVE NEGATIVE code = KAL) UA LEUKOCYTE ESTERASE W NEGATIVE Janie/uL NEGATIVE REFLEX (test code = LEUUR) UA WBC (test code = WBCU) 0-5 per HPF 0-5 UA RBC (test code = RBCU) 0-2 #/HPF 0-5 UA EPITHELIAL CELLS (test Rare (0-1/hpf) per FEW code = EPIU) HPF UA BACTERIA (test code = NONE SEEN #/HPF NONE BACU) UA MUCUS (test code = FEW #/LPF FEW MUCU) Urine Source? Clean CatchDRUGS OF ABUSE SCREEN [id number] 03:35:00 Test Item Value Reference Range Interpretation Comments URN COCAINE (test code = COCAURN) <300 ng/mL URN CANNABINOIDS (test code = <50 ng/mL CANNABURN) URN AMPHETAMINE (test code = AMPHETURN) <1000 ng/mL URN BARBITURATE (test code = BARBITURN) <200 ng/mL URN BENZODIAZEPINE (test code = <200 ng/mL BENZOURN) URN OPIATES (test code = OPIATURN) <300 ng/mL URN PHENCYCLIDINE (PCP) (test code = <25 ng/mL PHENCURN) URN METHADONE (test code = METHAURN) <300 ng/mL Urine Source? Clean CatchBASIC METABOLIC [id number] 03:29:00 Test Item Value Reference Range Interpretation Comments SODIUM (test code = NA) 137 mmol/L 136-145 N POTASSIUM (test code = K) 3.9 mmol/L 3.5-5.1 N CHLORIDE (test code = CL) 104.0 mmol/L 98-107 N CARBON DIOXIDE (test code = CO2) mmol/L 21-32 ANION GAP (test code = GAP) 10-20 GLUCOSE (test code = GLU) mg/dL 74-106 BLOOD UREA NITROGEN (test code = mg/dL 7-18 BUN) GLOMERULAR FILTRATION RATE (test mL/min >=60 code = GFR) CREATININE (test code = CREAT) mg/dL 0.7-1.3 BUN/CREATININE RATIO (test code 10-20 = BUN/CREA) CALCIUM (test code = CA) mg/dL 8.5-10.1 HEPATIC FUNCTION [id number] 03:29:00 Test Item Value Reference Range Interpretation Comments TOTAL PROTEIN (test code = PROT) gram/dL 6.4-8.2 ALBUMIN (test code = ALB) g/dL 3.4-5.0 GLOBULIN (test code = GLOB) gram/dL 2.7-4.2 ALBUMIN/GLOBULIN RATIO (test code = 0.75-1.50 A/G) BILIRUBIN TOTAL (test code = BILT) mg/dL 0.0-1.0 BILIRUBIN DIRECT (test code = BILD) mg/dL 0.0-0.20 SGOT/AST (test code = AST) IUnit/L 15-37 SGPT/ALT (test code = ALT) IUnit/L 12-78 ALKALINE PHOSPHATASE TOTAL (test IUnit/L 45-117 code = ALKP) [id number] 03:29:00 Test Item Value Reference Range Interpretation Comments ALCOHOL (test code = ALC) mg/dL 0-3 URINALYSIS [id number] 03:25:00 Test Item Value Reference Range Interpretation Comments UA COLOR (test code = COLU) YELLOW YELLOW UA APPEARANCE (test code = CLEAR CLEAR APPU) UA GLUCOSE DIPSTICK (test 300 (2+) mg/dL NEGATIVE A code = DGLUU) UA BILIRUBIN DIPSTICK (test NEGATIVE mg/dL NEGATIVE code = BILU) UA KETONE DIPSTICK (test NEGATIVE mg/dL NEGATIVE code = KETU) UA SPECIFIC GRAVITY (test 1.023 1.001-1.035 code = SGU) UA BLOOD DIPSTICK (test code Negative mg/dL NEGATIVE = GERSON) UA PH DIPSTICK (test code = 5.0 5.0-8.0 MITCHEL) UA PROTEIN DIPSTICK (test 10 (Trace) mg/dL NEGATIVE A code = PROU) UA UROBILINIOGEN DIPSTICK Normal mg/dL NEGATIVE (test code = URO) UA NITRITE DIPSTICK (test NEGATIVE NEGATIVE code = KAL) UA LEUKOCYTE ESTERASE W NEGATIVE Janie/uL NEGATIVE REFLEX (test code = LEUUR) UA WBC (test code = WBCU) per HPF 0-5 UA RBC (test code = RBCU) per HPF 0-5 UA EPITHELIAL CELLS (test per HPF Few code = EPIU) UA BACTERIA (test code = per HPF NONE BACU) Urine Source? Clean CatchDRUGS OF ABUSE SCREEN [id number] 03:25:00 Test Item Value Reference Range Interpretation Comments URN COCAINE (test code = COCAURN) <300 ng/mL URN CANNABINOIDS (test code = <50 ng/mL CANNABURN) URN AMPHETAMINE (test code = AMPHETURN) <1000 ng/mL URN BARBITURATE (test code = BARBITURN) <200 ng/mL URN BENZODIAZEPINE (test code = <200 ng/mL BENZOURN) URN OPIATES (test code = OPIATURN) <300 ng/mL URN PHENCYCLIDINE (PCP) (test code = <25 ng/mL PHENCURN) URN METHADONE (test code = METHAURN) <300 ng/mL Urine Source? Clean CatchBasic metabolic [id number] 01:34:50 Test Item Value Reference Range Interpretation Comments Sodium (test code = 2951-2) 135 135- 148 mEq/L Potassium (test code = 2823-3) 4.2 3.5- 5.0 mEq/L Chloride (test code = 2075-0) 97 98- 112 mEq/L L CO2 (test code = 8-9) 25 24- 31 mEq/L Anion gap (test code = 59505-2) 13@ANIO 7- 15 mEq/L BUN (test code = 3094-0) 13 mg/dL 6-20 Creatinine (test code = 2160-0) 0.70 mg/dL 0.7-1.2 Glucose (test code = 2345-7) 206 mg/dL 65-99 H Calcium (test code = 09438-0) 9.6 mg/dL 8.3-10.2 Lab Interpretation (test code = Abnormal 03653-0) [facility] [id number] 01:05:09Hm Interface, Radiology Results 05/30/2019 1:08 AM CSTExamination: CT MAXILLOFACIAL WO CONTRASTClinical History: s p fall left mandibular painComparison: None.Findings:CT scans are performed using radiation dose reduction techniques. Technical factors are evaluated and adjusted to ensure appropriate moderation of exposure. Automated dose management technology is applied to adjust radiation exposure while achieving a diagnostic quality image. CT imaging was performed with iterative reconstruction techniques and/or automated exposure control to reduce radiation dose.CT scan of the facewas performed without intravenous contrast.No acute fracture or dislocation is seen.The visualized sinuses are clear.Visualized orbits and globes are unremarkable.Visualized soft tissues are within normal limits.IMPRESSION:1. No acute abnormality identified in the face.[facility]-[id number] MethodistCT Head Wo [id number] 01:00:13Hm Interface, Radiology Results 05/30/2019 1:03 AM CSTExamination: CT HEAD WO CONTRASTClinical History: s p fallComparison: None.CT scan of the brain was performed without intravenous contrast.CT scans are performed using radiation dose reduction techniques. Technical factors are evaluated and adjusted to ensure appropriate moderation of exposure. Automated dose management technology is applied to adjust radiation exposure while achieving a diagnostic quality image. CT imaging was performed with iterative reconstruction techniques and/or automated exposure control to reduce radiation dose.No mass effect or midline shift is seen.The ventricles are normal in size.No intracranial hemorrhage is seen.The visualized bony structures shows no acute abnormality.Simon-white junctions are pres erved.IMPRESSION: 1. No acute or focal intracranial abnormality identified.[facility]-[id number] [facility] W/AUTO [id number] 09:44:00 Test Item Value Reference Range Interpretation Comments WHITE BLOOD CELL (test code = WBC) 9.60 k/mm3 4.00-12.00 N RED BLOOD CELL (test code = RBC) 4.25 M/uL 4.00-5.60 N HEMOGLOBIN (test code = HGB) 13.6 GM/DL 12.5-16.9 N HEMATOCRIT (test code = HCT) 38.1 % 40.0-54.0 L MEAN CELL VOLUME (test code = MCV) 89.6 fL 81.0-99.0 N MEAN CELL HGB (test code = MCH) 32.0 pg 27.0-31.0 H MEAN CELL HGB CONCETRATION (test 35.7 GM/DL 33.0-37.0 N code = MCHC) RED CELL DISTRIBUTION WIDTH CV 13.2 % 11.5-14.5 N (test code = RDW) PLATELET COUNT (test code = PLT) 317 K/mm3 150-400 N MEAN PLATELET VOLUME (test code = 9.7 FL 8.8-13.1 N MPV) NEUTROPHIL % (test code = NT%) 58.3 % 40.0-76.0 N LYMPHOCYTE % (test code = LY%) 31.9 % 15.0-40.0 N MIXED % (test code = MX%) 9.8 % 3.0-15.0 N NEUTROPHIL # (test code = NT#) 5.6 K/uL 1.8-7.6 N LYMPHOCYTE # (test code = LY#) 3.1 K/uL 1.0-3.8 N MIXED # (test code = MX#) 0.9 k/mm3 0.1-0.8 H COMPREHENSIVE METABOLIC [id number] 20:24:00 Test Item Value Reference Range Interpretation Comments SODIUM (test code = NA) 138 mmol/l 134.0-147.0 N POTASSIUM (test code = K) 3.9 mmol/L 3.6-5.2 N CHLORIDE (test code = CL) 99 mmol/l 98.0-107.0 N CARBON DIOXIDE (test code = CO2) 27.4 mmol/l 21.0-33.0 N ANION GAP (test code = GAP) 15.5 0-20 N GLUCOSE (test code = GLU) 182 mg/dl 70.0-110.0 H BLOOD UREA NITROGEN (test code = 16 mg/dl 7.0-18.0 N BUN) CREATININE (test code = CREAT) 0.99 mg/dL 0.60-1.30 N GFR NON BLACK (test code = 88 mL/min 95-105 L GFRNONBLACK) GFR BLACK (test code = GFRBLACK) 106 mL/min 115-127 L TOTAL PROTEIN (test code = PROT) 7.0 gm/dL 6.4-8.2 N ALBUMIN (test code = ALB) 3.6 gm/dl 3.2-4.7 N CALCIUM (test code = CA) 8.9 mg/dl 8.0-10.5 N BILIRUBIN TOTAL (test code = 0.1 mg/dl 0.0-1.0 N BILT) SGOT/AST (test code = AST) 15 Units/L 15.0-37.0 N SGPT/ALT (test code = ALT) 29 Units/L 12.0-78.0 N ALKALINE PHOSPHATASE TOTAL (test 118 Units/L 50.0-136.0 N code = ALKP) [id number] 20:24:00 Test Item Value Reference Range Interpretation Comments ALCOHOL (test code 0.02 gm/dL 0.00-0.00 H ETHYL ALC OHOL VALUES - = ALC) INTERPRETATION: 0.050 GM/DL - NOT INT OXICATED 0.100 GM/DL - INTOXICATED 0.3 50-0.450 GM/DL - SEVEREL Y INTOXICATED 0.5 50 GM/DL- FATAL INTOXICAT ION DRUGS OF ABUSE SCREEN [id number] 20:16:00 Test Item Value Reference Range Interpretation Comments URN COCAINE (test code NEGATIVE NEGATIVE Cocai ne cut-off = COCAURN) concentration: 300 ng/mL URN CANNABINOIDS (test NEGATIVE NEGATIVE Canna binoids cut-off code = CANNABURN) concentrat ion: 50 ng/mL URN AMPHETAMINE (test NEGATIVE NEGATIVE Amphet amine cut-off code = AMPHETURN) concentrat ion: 1000 ng/mL URN BARBITURATE (test NEGATIVE NEGATIVE Barbit urate cut-off code = BARBITURN) concentrat ion: 200 ng/mL URN BENZODIAZEPINE NEGATIVE NEGATIVE Benzodiaz epine cut-off (test code = BENZOURN) sam ntration: 200 ng/mL URN OPIATES (test code NEGATIVE NEGATIVE Opiat es cut-off = OPIATURN) concentration: 200 ng/mL URN PHENCYCLIDINE (PCP) NEGATIVE NEGATIVE Phen cyclidine(PCP) (test code = PHENCURN) cut-o ff concentration: 25 ng/ml URN METHADONE (test NEGATIVE NEGATIVE Methadon e cut-off code = METHAURN) concentrati on: 300 ng/mL COMPREHENSIVE METABOLIC [id number] 20:16:00 Test Item Value Reference Range Interpretation Comments SODIUM (test code = NA) 138 mmol/l 134.0-147.0 N POTASSIUM (test code = K) 3.9 mmol/L 3.6-5.2 N CHLORIDE (test code = CL) 99 mmol/l 98.0-107.0 N CARBON DIOXIDE (test code = CO2) 27.4 mmol/l 21.0-33.0 N ANION GAP (test code = GAP) 15.5 0-20 N GLUCOSE (test code = GLU) mg/dl 70.0-110.0 BLOOD UREA NITROGEN (test code = mg/dl 7.0-18.0 BUN) CREATININE (test code = CREAT) mg/dL 0.60-1.30 GFR NON BLACK (test code = mL/min 95-105 GFRNONBLACK) GFR BLACK (test code = GFRBLACK) mL/min 115-127 TOTAL PROTEIN (test code = PROT) gm/dL 6.4-8.2 ALBUMIN (test code = ALB) gm/dl 3.2-4.7 CALCIUM (test code = CA) mg/dl 8.0-10.5 BILIRUBIN TOTAL (test code = mg/dl 0.0-1.0 BILT) SGOT/AST (test code = AST) Units/L 15.0-37.0 SGPT/ALT (test code = ALT) Units/L 12.0-78.0 ALKALINE PHOSPHATASE TOTAL (test Units/L 50.0-136.0 code = ALKP) [id number] 20:16:00 Test Item Value Reference Range Interpretation Comments ALCOHOL (test code = ALC) gm/dL 0.00-0.00 CBC W/AUTO [id number] 20:08:00 Test Item Value Reference Range Interpretation Comments WHITE BLOOD CELL (test code = 9.4 K/mm3 4.5-11.0 N WBC) RED BLOOD CELL (test code = 4.13 M/mm3 4.40-5.90 L RBC) HEMOGLOBIN (test code = HGB) 13.1 gm/dL 13.0-17.0 N HEMATOCRIT (test code = HCT) 37.4 % 36.0-48.0 N MEAN CELL VOLUME (test code = 90.6 UM3 80.0-94.0 N MCV) MEAN CELL HGB (test code = MCH) 31.7 UUG 25.5-32.5 N MEAN CELL HGB CONCETRATION 35.0 gm/dL 29.0-35.5 N (test code = MCHC) RED CELL DISTRIBUTION WIDTH 12.8 % 11.5-15.0 N (test code = RDW) RED CELL DISTRIBUTION WIDTH SD 42.1 fL 34.8-50.2 N (test code = RDW-SD) PLATELET COUNT (test code = 289 K/mm3 150-400 N PLT) MEAN PLATELET VOLUME (test code 9.6 fl 7.4-10.4 N = MPV) NEUTROPHIL % (test code = NT%) 52.8 % 49.0-76.0 N IMMATURE GRANULOCYTE % (test 0.4 % 0.0-0.4 N code = IG%) LYMPHOCYTE % (test code = LY%) 35.7 % 23.0-38.0 N MONOCYTE % (test code = MO%) 9.3 % 1.0-10.0 N EOSINOPHIL % (test code = EO%) 1.1 % 1.0-5.0 N BASOPHIL % (test code = BA%) 0.7 % 0.0-1.0 N NEUTROPHIL # (test code = NT#) 5.0 K/mm3 2.4-6.3 N IMMATURE GRANULOCYTE # (test 0.04 x10 3/uL 0.00-0.07 N code = IG#) LYMPHOCYTE # (test code = LY#) 3.4 K/mm3 1.2-4.0 N MONOCYTE # (test code = MO#) 0.9 K/mm3 0.0-0.6 H EOSINOPHIL # (test code = EO#) 0.1 K/MM3 0.0-0.7 N BASOPHIL # (test code = BA#) 0.1 K/mm3 0.0-0.2 N [id number] 17:49:00 Test Item Value Reference Range Interpretation Comments SODIUM (test code = NA/ABG) 138 MEQ/L 134-147 N [id number] 17:49:00 Test Item Value Reference Range Interpretation Comments POTASSIUM (test code = K/ABG) MEQ/L 3.4-5.0 [id number] 17:49:00 Test Item Value Reference Range Interpretation Comments CHLORIDE (test code = CL/ABG) MEQ/L 100-108 CREATININE [id number] 17:49:00 Test Item Value Reference Range Interpretation Comments CREATININE ABG (test code = CREAABG) mg/dL 0.8-1.3 POC IONIZED [id number] 17:49:00 Test Item Value Reference Range Interpretation Comments POC IONIZED CALCIUM (test code = MMOL/L 1.12-1.32 POCCA) POC [id number] 17:49:00 Test Item Value Reference Range Interpretation Comments POC GLUCOSE (test code = POCGLU) MG/DL 70-110 [id number] 17:49:00 Test Item Value Reference Range Interpretation Comments SODIUM (test code = NA/ABG) 138 MEQ/L 134-147 N [id number] 17:49:00 Test Item Value Reference Range Interpretation Comments POTASSIUM (test code = K/ABG) 3.8 MEQ/L 3.4-5.0 N [id number] 17:49:00 Test Item Value Reference Range Interpretation Comments CHLORIDE (test code = CL/ABG) MEQ/L 100-108 CREATININE [id number] 17:49:00 Test Item Value Reference Range Interpretation Comments CREATININE ABG (test code = CREAABG) mg/dL 0.8-1.3 POC IONIZED [id number] 17:49:00 Test Item Value Reference Range Interpretation Comments POC IONIZED CALCIUM (test code = MMOL/L 1.12-1.32 POCCA) POC [id number] 17:49:00 Test Item Value Reference Range Interpretation Comments POC GLUCOSE (test code = POCGLU) MG/DL 70-110 [id number] 17:49:00 Test Item Value Reference Range Interpretation Comments SODIUM (test code = NA/ABG) 138 MEQ/L 134-147 N [id number] 17:49:00 Test Item Value Reference Range Interpretation Comments POTASSIUM (test code = K/ABG) 3.8 MEQ/L 3.4-5.0 N [id number] 17:49:00 Test Item Value Reference Range Interpretation Comments CHLORIDE (test code = CL/ABG) MEQ/L 100-108 CREATININE [id number] 17:49:00 Test Item Value Reference Range Interpretation Comments CREATININE ABG (test code = CREAABG) mg/dL 0.8-1.3 POC IONIZED [id number] 17:49:00 Test Item Value Reference Range Interpretation Comments POC IONIZED CALCIUM (test code = 1.11 MMOL/L 1.12-1.32 L POCCA) POC [id number] 17:49:00 Test Item Value Reference Range Interpretation Comments POC GLUCOSE (test code = POCGLU) MG/DL 70-110 [id number] 17:49:00 Test Item Value Reference Range Interpretation Comments SODIUM (test code = NA/ABG) 138 MEQ/L 134-147 N [id number] 17:49:00 Test Item Value Reference Range Interpretation Comments POTASSIUM (test code = K/ABG) 3.8 MEQ/L 3.4-5.0 N [id number] 17:49:00 Test Item Value Reference Range Interpretation Comments CHLORIDE (test code = CL/ABG) MEQ/L 100-108 CREATININE [id number] 17:49:00 Test Item Value Reference Range Interpretation Comments CREATININE ABG (test code = CREAABG) mg/dL 0.8-1.3 POC IONIZED [id number] 17:49:00 Test Item Value Reference Range Interpretation Comments POC IONIZED CALCIUM (test code = 1.11 MMOL/L 1.12-1.32 L POCCA) POC [id number] 17:49:00 Test Item Value Reference Range Interpretation Comments POC GLUCOSE (test code = POCGLU) 187 MG/DL 70-110 H [id number] 17:49:00 Test Item Value Reference Range Interpretation Comments SODIUM (test code = NA/ABG) 138 MEQ/L 134-147 N [id number] 17:49:00 Test Item Value Reference Range Interpretation Comments POTASSIUM (test code = K/ABG) 3.8 MEQ/L 3.4-5.0 N [id number] 17:49:00 Test Item Value Reference Range Interpretation Comments CHLORIDE (test code = CL/ABG) 101 MEQ/L 100-108 N CREATININE [id number] 17:49:00 Test Item Value Reference Range Interpretation Comments CREATININE ABG (test code = CREAABG) mg/dL 0.8-1.3 POC IONIZED [id number] 17:49:00 Test Item Value Reference Range Interpretation Comments POC IONIZED CALCIUM (test code = 1.11 MMOL/L 1.12-1.32 L POCCA) POC [id number] 17:49:00 Test Item Value Reference Range Interpretation Comments POC GLUCOSE (test code = POCGLU) 187 MG/DL 70-110 H [id number] 17:49:00 Test Item Value Reference Range Interpretation Comments SODIUM (test code = NA/ABG) 138 MEQ/L 134-147 N [id number] 17:49:00 Test Item Value Reference Range Interpretation Comments POTASSIUM (test code = K/ABG) 3.8 MEQ/L 3.4-5.0 N [id number] 17:49:00 Test Item Value Reference Range Interpretation Comments CHLORIDE (test code = CL/ABG) 101 MEQ/L 100-108 N CREATININE [id number] 17:49:00 Test Item Value Reference Range Interpretation Comments CREATININE ABG (test code = 1.2 mg/dL 0.8-1.3 N CREAABG) POC IONIZED [id number] 17:49:00 Test Item Value Reference Range Interpretation Comments POC IONIZED CALCIUM (test code = 1.11 MMOL/L 1.12-1.32 L POCCA) POC [id number] 17:49:00 Test Item Value Reference Range Interpretation Comments POC GLUCOSE (test code = POCGLU) 187 MG/DL 70-110 H WHOLE BLOOD [id number] 07:40:00 Test Item Value Reference Range Interpretation Comments WHOLE BLOOD GLUCOSE 216 MG/DL 70-99 H Fastin g glucose (test code = POC GLU) normal <100 MG/DL- [facility] recommend ation WHOLE BLOOD [id number] 20:10:00 Test Item Value Reference Range Interpretation Comments WHOLE BLOOD GLUCOSE 118 MG/DL 70-99 H Fastin g glucose (test code = POC GLU) normal <100 MG/DL- [facility] recommend ation WHOLE BLOOD [id number] 20:10:00 Test Item Value Reference Range Interpretation Comments WHOLE BLOOD GLUCOSE 260 MG/DL 70-99 H Fastin g glucose (test code = POC GLU) normal <100 MG/DL- [facility] recommend ation RPR FOR SERUM [id number] 16:23:00 Test Item Value Reference Range Interpretation Comments RPR (test code = NONREACTIVE NONREACTIVE RPR) NR = NON-REACTIVE R = REACTIVE HEPATITIS C ANTIBODY [id number] 14:40:00 Test Item Value Reference Range Interpretation Comments SCRN HCV (test code NEGATIVE NEGATIVE Hepatiti s C Antibody test = SCRN HCV) is for screenin g purposes only. All react muriel will be confirmed by additional test ing. ER SCREEN FOR HIV 14:40:00 Test Item Value Reference Range Interpretation Comments HIV 1/2 AB (test NEGATIVE NEGATIVE This test i s used for code = SCRN HIV) SCREENING p urposes only. All reactive re sults are prelimenary and confirmation re sults will follow. WHOLE BLOOD [id number] 12:20:00 Test Item Value Reference Range Interpretation Comments WHOLE BLOOD GLUCOSE 201 MG/DL 70-99 H Fastin g glucose (test code = POC GLU) normal <100 MG/DL- [facility] recommend ation LIPID [id number] 11:26:00 Test Item Value Reference Range Interpretation Comments CHOLEST (test code = 226 MG/DL 0-200 H CHOLEST) TRIGLYCE (test code = 249 MG/DL 0-150 H TRIGLYCE) HDL (test code = HDL) 48 MG/DL 30-65 NEGATI VE RISK FACTOR FOR HEART DISEA SE IF HDL >/=60 mg/dl MAJOR RISK FACTOR FOR HEART DISEASE IF HDL <40 mg/dL CALC LDL (test code = 128 MG/DL <100 H CALC LDL) THYROID STIMULATION [id number] 11:25:00 Test Item Value Reference Range Interpretation Comments TSH (test code = TSH) 1.60 UIU/ML 0.465-4.68 VITAMIN D [id number] 10:48:00 Test Item Value Reference Range Interpretation Comments VITAMIN D, 25-HYDROXY 25.9 Vitami n D guideline has (test code = VITD,25) been d efined by the [facility] ty practice as fol lowed: Defici ent: less than 20 ng/mL Insufficient: 21-29 ng/mL Sufficient: 30- 100 ng/mL Pot ential Toxicity: >100n g/mL VALPROIC [id number] 10:48:00 Test Item Value Reference Range Interpretation Comments VALP (test code = VALP) <10.0 UG/ML 50-100 L % HEMOGLOBIN A1C (GLYCATED)2019-04-21 09:22:00 Test Item Value Reference Range Interpretation Comments HEMOGLOBIN A1C (test 8.4 % 0-6 H TH ERAPEUTIC TARGET code = GLYCO-) FOR THE TREAT MENT OF DIABETES M GATO PATIENTS IS < 7 % HBA1C. [facility] 2002;25:S33-S49 WHOLE BLOOD [id number] 06:45:00 Test Item Value Reference Range Interpretation Comments WHOLE BLOOD GLUCOSE 229 MG/DL 70-99 H Fastin g glucose (test code = POC GLU) normal <100 MG/DL- [facility] recommend ation WHOLE BLOOD [id number] 19:50:00 Test Item Value Reference Range Interpretation Comments WHOLE BLOOD GLUCOSE 234 MG/DL 70-99 H Fastin g glucose (test code = POC GLU) normal <100 MG/DL- [facility] recommend ation WHOLE BLOOD [id number] 17:30:00 Test Item Value Reference Range Interpretation Comments WHOLE BLOOD GLUCOSE 247 MG/DL 70-99 H Fastin g glucose (test code = POC GLU) normal <100 MG/DL- [facility] recommend ation MICROALBUMIN, RANDOM [id number] 17:14:00 Test Item Value Reference Range Interpretation Comments MICROALB (test <0.6 mg/dL 0-1.7 A result of 3 0 to 300 code = MICROALB) g/mg is con sidered indicative of microalbuminuri a A result of >= 300 g/mg is considered mary cative of macro (clinical ) albuminuria Due to variability in urinary albumin excreti on, at least two of th ree test results measure d within a 6-month period should show elevated l evels before a patien t is designated as h aving microalbuminuri a. Exercise within 24 hrs, infection, feve r, congestive hear t failure, marked hypergly cemia, and marked hyperten hector may elevate urinary albumin excretion value s. MC RATIO (test TNP mg/g 0-30 Test Not Perf ormed due to code = MC RATIO) microalb <0 .6 A result of 30 to 300 g/mg is considered mary cative of microalbuminuri a A result of >= 300 g/mg is considered mary cative of macro (clinical ) albuminuria Due to variability in urinary albumin excreti on, at least two of th ree test results measure d within a 6-month period should show elevated l evels before a patien t is designated as h aving microalbuminuri a. Exercise within 24 hrs, infection, feve r, congestive hear t failure, marked hypergly cemia, and marked hyperten hector may elevate urinary albumin excretion value s. 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[facility] [id number] 19:40:00 Test Item Value Reference Range Interpretation Comments GLUBED (test code = 165 MG/DL 70-110 H Performe 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[facility] BASIC METABOLIC [id number] 05:04:00 Test Item Value Reference Range Interpretation Comments SODIUM (test code = NA) 134 mEq/L 134-147 N POTASSIUM (test code = 3.4 mEq/L 3.4-5.0 N K) CHLORIDE (test code = 101 mEq/L 100-108 N CL) CARBON DIOXIDE (test 27 mEq/L 21-33 N code = CO2) ANION GAP (test code = 9 0-20 N GAP) GLUCOSE (test code = 146 mg/dL 70-110 H GLU) BLOOD UREA NITROGEN 8 mg/dL 7-18 N (test code = BUN) GLOMERULAR FILTRATION 147.0 95-105 H Units of measure = RATE (test code = GFR) ml/mi n/1.73 m2 CREATININE (test code = 0.6 mg/dL 0.6-1.3 N CREAT) CALCIUM (test code = 8.3 mg/dL 8.0-10.5 N CA) [id number] 05:04:00 Test Item Value Reference Range Interpretation Comments TROPONIN-I < 0.015 ng/mL 0.000-0.045 N Negative: <= (test code = 0.045 Positive: TROPI) >= 0.046 Correl ation with serial results, other cardiac markers andclinical findings is nec essary to determine the clinicalsignifi cance of this result. Results using different metho dologies should not be c omparedto one another as john titative results may anayeli y by method. BASIC METABOLIC [id number] 05:03:00 Test Item Value Reference Range Interpretation Comments SODIUM (test code = NA) mEq/L 134-147 POTASSIUM (test code = K) mEq/L 3.4-5.0 CHLORIDE (test code = CL) mEq/L 100-108 CARBON DIOXIDE (test code = CO2) mEq/L 21-33 ANION GAP (test code = GAP) 0-20 GLUCOSE (test code = GLU) mg/dL 70-110 BLOOD UREA NITROGEN (test code = BUN) mg/dL 7-18 GLOMERULAR FILTRATION RATE (test code 95-105 = GFR) CREATININE (test code = CREAT) mg/dL 0.6-1.3 CALCIUM (test code = CA) mg/dL 8.0-10.5 [id number] 05:03:00 Test Item Value Reference Range Interpretation Comments TROPONIN-I < 0.015 ng/mL 0.000-0.045 N Negative: <= (test code = 0.045 Positive: TROPI) >= 0.046 Correl ation with serial results, other cardiac markers andclinical findings is nec essary to determine the clinicalsignifi cance of this result. Results using different metho dologies should not be c omparedto one another as john titative results may anayeli y by method. CBC W/AUTO [id number] 04:48:00 Test Item Value Reference Range Interpretation Comments WHITE BLOOD CELL (test code = 11.56 x10 3/uL 4.5-11.0 H WBC) RED BLOOD CELL (test code = 4.12 x10 6/uL 4.00-5.60 N RBC) HEMOGLOBIN (test code = HGB) 12.8 g/dL 12.5-16.9 N HEMATOCRIT (test code = HCT) 36.6 % 37.5-50.7 L MEAN CELL VOLUME (test code = 88.8 fL 81.0-99.0 N MCV) MEAN CELL HGB (test code = 31.1 pg 27.0-33.0 N MCH) MEAN CELL HGB CONCETRATION 35.0 g/dL 33.0-37.0 N (test code = MCHC) RED CELL DISTRIBUTION WIDTH CV 12.5 % 11.5-14.5 N (test code = RDW) RED CELL DISTRIBUTION WIDTH SD 40.5 fL 37.0-54.0 N (test code = RDW-SD) PLATELET COUNT (test code = 310 x10 3/uL 150-400 N PLT) MEAN PLATELET VOLUME (test 9.4 fL 7.0-9.0 H code = MPV) NEUTROPHIL % (test code = NT%) 57.3 % 56.0-77.0 N IMMATURE GRANULOCYTE % (test 0.3 % 0.0-2.0 N code = IG%) LYMPHOCYTE % (test code = LY%) 32.6 % 14.0-32.0 H MONOCYTE % (test code = MO%) 8.5 % 4.8-9.0 N EOSINOPHIL % (test code = EO%) 0.4 % 0.3-3.7 N BASOPHIL % (test code = BA%) 0.9 % 0.0-2.0 N NUCLEATED RBC % (test code = 0.0 % 0-0 N NRBC%) NEUTROPHIL # (test code = NT#) 6.62 x10 3/uL 2.0-7.6 N IMMATURE GRANULOCYTE # (test 0.04 x10 3/uL 0.00-0.03 H code = IG#) LYMPHOCYTE # (test code = LY#) 3.77 x10 3/uL 1.0-3.8 N MONOCYTE # (test code = MO#) 0.98 x10 3/uL 0.1-0.8 H EOSINOPHIL # (test code = EO#) 0.05 x10 3/uL 0.0-0.2 N BASOPHIL # (test code = BA#) 0.10 x10 3/uL 0.0-0.2 N NUCLEATED RBC # (test code = 0.00 x10 3/uL 0.0-0.1 N NRBC#) MANUAL DIFF REQUIRED (test NO code = MDIFF) - CT HEAD/BRAIN W/O [id number] 18:08:00 Name: BRITT FUENTES [facility] : 1975 Age/S: 43 / M [address] [place] [address] Unit #: [id number] Loc: [place], [id number] Phys: Paolo Otero DO Acct: [id number] Dis Date: Status: REG ER PHONE #: [phone] Exam Date: 01/29/2019 1754 FAX #: [phone] Reason: found down EXAMS: CPTCODE: [id number] CT HEAD/BRAIN W/O CONT [id number] HEAD INDICATION: found down. TECHNIQUE: Unenhanced CT was performed from the skull vertex to the foramen magnum with axial, coronal and sagittal reconstructions. CT imaging performed at this location utilizes radiation dose optimization technique whichincludes one or more of the followin) Automated exposure control; 2) Adjustment of the mA and/or kV according to patient's size; 3) Use of iterative reconstruction techniques. DLP (mGy- cm): 525 COMPARISONS: None. FINDINGS: The paranasal sinuses are clear as visualized. The mastoid air cells and middle ears appear clear as visualized. There is no acute depressed skull fracture. There is a mild burden of atherosclerotic vascular calcification of the intracranial arteries. The cerebral ventricles are normal caliber. There is no cerebral mass effect, midline shift, intracranial hemorrhage or acute large vessel territory cerebral cortical edema. IMPRESSION: 1. There is no acute intracranial process. at 1808 Reported and signed by: Luis Martinez D.O. CC: Paolo Otero DO Technologist:Gabrielle Berry RT(R) CTDI: DLP: Trnscb Date/Time: 01/29/2019 (1807) [email or web address] Orig Print D/T: S: 01/29/2019 (1811) PAGE 1 Signed ReportBASIC METABOLIC [id number] 17:48:00 Test Item Value Reference Range Interpretation Comments SODIUM (test code = NA) 133 mEq/L 134-147 L POTASSIUM (test code = 4.5 mEq/L 3.4-5.0 N K) CHLORIDE (test code = 100 mEq/L 100-108 N CL) CARBON DIOXIDE (test 30 mEq/L 21-33 N code = CO2) ANION GAP (test code = 8 0-20 N GAP) GLUCOSE (test code = 219 mg/dL 70-110 H GLU) BLOOD UREA NITROGEN 16 mg/dL 7-18 N (test code = BUN) GLOMERULAR FILTRATION 105.5 95-105 H Units of measure = RATE (test code = GFR) ml/mi n/1.73 m2 CREATININE (test code = 0.8 mg/dL 0.6-1.3 N CREAT) CALCIUM (test code = 8.7 mg/dL 8.0-10.5 N CA) [id number] 17:48:00 Test Item Value Reference Range Interpretation Comments ALCOHOL (test code < 0.003 G/dL <0.003 Ethyl Alc ohol = ALC) Interpretation: 0.100 gm/dL - Legally Intoxic ated 0.300-0.40 0 gm/dL - Severely Into xicated >0.400 gm/dL - Potentially LethalResults a re for Medical purpose s only, and not for Leg al orEmployment ev aluation purposes. CBC W/AUTO [id number] 17:32:00 Test Item Value Reference Range Interpretation Comments WHITE BLOOD CELL (test code = 10.07 x10 3/uL 4.5-11.0 N WBC) RED BLOOD CELL (test code = 3.54 x10 6/uL 4.00-5.60 L RBC) HEMOGLOBIN (test code = HGB) 11.1 g/dL 12.5-16.9 L HEMATOCRIT (test code = HCT) 32.5 % 37.5-50.7 L MEAN CELL VOLUME (test code = 91.8 fL 81.0-99.0 N MCV) MEAN CELL HGB (test code = 31.4 pg 27.0-33.0 N MCH) MEAN CELL HGB CONCETRATION 34.2 g/dL 33.0-37.0 N (test code = MCHC) RED CELL DISTRIBUTION WIDTH CV 12.3 % 11.5-14.5 N (test code = RDW) RED CELL DISTRIBUTION WIDTH SD 41.3 fL 37.0-54.0 N (test code = RDW-SD) PLATELET COUNT (test code = 272 x10 3/uL 150-400 N PLT) MEAN PLATELET VOLUME (test 9.7 fL 7.0-9.0 H code = MPV) NEUTROPHIL % (test code = NT%) 66.3 % 56.0-77.0 N IMMATURE GRANULOCYTE % (test 1.7 % 0.0-2.0 N code = IG%) LYMPHOCYTE % (test code = LY%) 22.8 % 14.0-32.0 N MONOCYTE % (test code = MO%) 7.5 % 4.8-9.0 N EOSINOPHIL % (test code = EO%) 1.0 % 0.3-3.7 N BASOPHIL % (test code = BA%) 0.7 % 0.0-2.0 N NUCLEATED RBC % (test code = 0.0 % 0-0 N NRBC%) NEUTROPHIL # (test code = NT#) 6.67 x10 3/uL 2.0-7.6 N IMMATURE GRANULOCYTE # (test 0.17 x10 3/uL 0.00-0.03 H code = IG#) LYMPHOCYTE # (test code = LY#) 2.30 x10 3/uL 1.0-3.8 N MONOCYTE # (test code = MO#) 0.76 x10 3/uL 0.1-0.8 N EOSINOPHIL # (test code = EO#) 0.10 x10 3/uL 0.0-0.2 N BASOPHIL # (test code = BA#) 0.07 x10 3/uL 0.0-0.2 N NUCLEATED RBC # (test code = 0.00 x10 3/uL 0.0-0.1 N NRBC#) MANUAL DIFF REQUIRED (test NO code = MDIFF) POC [id number] 04:14:49 Test Item Value Reference Range Interpretation Comments Glucose POC (test 220 mg/dL 70-115 H If you con graffiti cleaner your code = Glucose POC) patient critically ill, the Ricky-Accu Check Infrom II meter should not be used for Glucose determination. Draw a venous Glucose and send to the main Lab for analysis. CT Brain/Head w/o [id number] 21:39:46Patient: BRITT FUENTES Date/Time11/19/2018 21:31 CDTReason for ExamTraumaReportExam: CT of the brain without contrast.History: TraumaTechnique: Contiguous axial CT images were obtained from the skull base through the vertex without contrast.One or more of the following dose reduction techniques were used: Automated exposure control, adjustment of the mA and/or kV according to patient size, and/or utilization of iterative reconstruction techn ique. Total DLP: 718.2mGy-cm.Comparison: NoneLocation: [id number]:The ventricles and sulci are normal in size and symmetric. The basal cisterns are patent. There is no mass effect or midline shift.There is no evidence for acute territorial infarction. There is no acute intracranial hemorrhage. Thereare no extra-axial fluid collections.There is mild left frontoparietal scalp soft tissue swelling with surgical skin beatriz identified posteriorly. The calvarium is intact.The paranasal sinuses and mastoid air cells are clear.Impression:1. No non-contrast ct evidence of an acute intracranial abnormality. Final Dictated by: MD Weber Robert KDictated DT/TM: 11/19/2018 9:37 pmSigned by: MD Weber Robert KSigned (Electronic Signature): 11/19/2018 9:39 pmDRUGS OF ABUSE SCREEN [id number] 16:18:00 Test Item Value Reference Range Interpretation Comments URN COCAINE (test code POSITIVE NEGATIVE A = COCAURN) URN CANNABINOIDS (test NEGATIVE NEGATIVE code = CANNABURN) URN AMPHETAMINE (test NEGATIVE NEGATIVE code = AMPHETURN) URN BARBITURATE (test NEGATIVE NEGATIVE code = BARBITURN) URN BENZODIAZEPINE NEGATIVE NEGATIVE Cut-off v alue:200 (test code = BENZOURN) ng/mL URN OPIATES (test code NEGATIVE NEGATIVE Cut-o ff value:2000 = OPIATURN) ng/mL URN PHENCYCLIDINE (PCP) NEGATIVE NEGATIVE Cuto ffs:Barbiturates (test code = PHENCURN) 200 ng/mLBenzodiaze pines 200 ng/ mLTHC Cannabinoids 50 ng/mLOpiates(Mo rphine) 2000 ng/mLAmphetamin e 1000 ng/mLCocaine 300 ng/ mLPCP phencyclidine 25 ng/mL Unconf irmed screening resul ts shouldnot be us ed for non-medical pur poses. DRUGS OF ABUSE SCREEN [id number] 16:09:00 Test Item Value Reference Range Interpretation Comments URN COCAINE (test code NEGATIVE = COCAURN) URN CANNABINOIDS (test NEGATIVE NEGATIVE code = CANNABURN) URN AMPHETAMINE (test NEGATIVE NEGATIVE code = AMPHETURN) URN BARBITURATE (test NEGATIVE NEGATIVE code = BARBITURN) URN BENZODIAZEPINE NEGATIVE NEGATIVE Cut-off v alue:200 (test code = BENZOURN) ng/mL URN OPIATES (test code NEGATIVE NEGATIVE Cut-o ff value:2000 = OPIATURN) ng/mL URN PHENCYCLIDINE (PCP) NEGATIVE NEGATIVE Cuto ffs:Barbiturates (test code = PHENCURN) 200 ng/mLBenzodiaze pines 200 ng/ mLTHC Cannabinoids 50 ng/mLOpiates(Mo rphine) 2000 ng/mLAmphetamin e 1000 ng/mLCocaine 300 ng/ mLPCP phencyclidine 25 ng/mL Unconf irmed screening resul ts shouldnot be us ed for non-medical pur poses. HEPATIC FUNCTION [id number] 15:53:00 Test Item Value Reference Range Interpretation Comments TOTAL PROTEIN (test code = PROT) 7.5 g/dL 6.4-8.2 N ALBUMIN (test code = ALB) 3.80 g/dL 3.4-5.0 N BILIRUBIN TOTAL (test code = 0.30 mg/dL 0.0-1.0 N BILT) BILIRUBIN DIRECT (test code = < 0.10 MG/DL 0.0-0.30 N BILD) BILIRUBIN INDIRECT (test code = 0.20 MG/DL BILIND) SGOT/AST (test code = AST) 25 IUnit/L 15-37 N SGPT/ALT (test code = ALT) 33 IUnit/L 15-65 N ALKALINE PHOSPHATASE TOTAL (test 115 IUnit/L 20-125 N code = ALKP) CREATINE KINASE (CK)2018-11-09 15:53:00 Test Item Value Reference Range Interpretation Comments CREATINE KINASE (CK) 487 35-232 H Result is in INTERNATIONAL (test code = CK) UNITS/LITER [id number] 15:53:00 Test Item Value Reference Range Interpretation Comments SALICYLATE (test code = DAVE) 3.0 mg/dL 2.8-20.0 N [id number] 15:53:00 Test Item Value Reference Range Interpretation Comments ALCOHOL (test code < 0.003 G/dL <0.003 Ethyl Alc ohol = ALC) Interpretation: 0.100 gm/dL - Legally Intoxic ated 0.300-0.40 0 gm/dL - Severely Into xicated >0.400 gm/dL - Potentially LethalResults a re for Medical purpose s only, and not for Leg al orEmployment ev aluation purposes. CHEMISTRY 8 [id number] 15:42:00 Test Item Value Reference Range Interpretation Comments ISTAT-SODIUM (test code = NAP) MMOL/L 134-147 ISTAT-POTASSIUM (test code = KP) MMOL/L 3.4-5.0 ISTAT-CHLORIDE (test code = CLP) MMOL/L 100-108 ISTAT CARBON DIOXIDE (test code = mmol/L 21-33 N ISTAT-CO2) ISTAT CALCIUM IONIZED (test code = MG/DL 1.12-1.32 ISTAT-KATHLEEN) ISTAT-GLUCOSE (test code = GLUP) MG/DL 70-110 H ISTAT-BUN (test code = BUNP) MG/DL 7-18 N BEDSIDE CREATININE (test code = MG/DL 0.6-1.3 N CREATBED) GLOMERULAR FILTRATION RATE POC 78 ML/MIN (test code = GFRBED) CHEMISTRY 8 [id number] 15:42:00 Test Item Value Reference Range Interpretation Comments ISTAT-SODIUM (test 133 MMOL/L 134-147 L code = NAP) ISTAT-POTASSIUM (test 4.3 MMOL/L 3.4-5.0 N code = KP) ISTAT-CHLORIDE (test 94 MMOL/L 100-108 L Perform ed by code = CLP) certified opera tor at [facility] ISTAT CARBON DIOXIDE 29.0 mmol/L 21-33 N (test code = ISTAT-CO2) ISTAT CALCIUM IONIZED 1.08 MG/DL 1.12-1.32 L (test code = ISTAT-KATHLEEN) ISTAT-GLUCOSE (test 418 MG/DL 70-110 H code = GLUP) ISTAT-BUN (test code = 13 MG/DL 7-18 N BUNP) BEDSIDE CREATININE 1.1 MG/DL 0.6-1.3 N (test code = CREATBED) GLOMERULAR FILTRATION 78 ML/MIN RATE POC (test code = GFRBED) CBC W/O [id number] 15:30:00 Test Item Value Reference Range Interpretation Comments WHITE BLOOD CELL (test code = 10.52 x10 3/uL 4.5-11.0 N WBC) RED BLOOD CELL (test code = 4.47 x10 6/uL 4.00-5.60 N RBC) HEMOGLOBIN (test code = HGB) 13.7 g/dL 12.5-16.9 N HEMATOCRIT (test code = HCT) 38.8 % 37.5-50.7 N MEAN CELL VOLUME (test code = 86.8 fL 81.0-99.0 N MCV) MEAN CELL HGB (test code = 30.6 pg 27.0-33.0 N MCH) MEAN CELL HGB CONCETRATION 35.3 g/dL 33.0-37.0 N (test code = MCHC) RED CELL DISTRIBUTION WIDTH CV 12.1 % 11.5-14.5 N (test code = RDW) RED CELL DISTRIBUTION WIDTH SD 38.5 fL 37.0-54.0 N (test code = RDW-SD) PLATELET COUNT (test code = 251 x10 3/uL 150-400 N PLT) MEAN PLATELET VOLUME (test 10.6 fL 7.0-9.0 H code = MPV) Valproic Acid [id number] 08:30:32 Test Item Value Reference Range Interpretation Comments Valproic Acid Level (test code 102.7 ug/mL(g) 50.0-100.0 H = Valproic Acid Level) RPR [id number] 11:30:00 Test Item Value Reference Range Interpretation Comments RPR Qual (test code = RPR Qual) Non-Reactive Non-Reactive Reactive Control (test code = Reactive Reactive Control) Weak Reactive Control (test Weak Reactive code = Weak Reactive Control) Non-Reactive Control (test code Non-Reactive = Non-Reactive Control) Lot # (test code = Lot #) [id number] Expiration Dt (test code = 02-07-20 N Expiration Dt) Thyroid Stimulating [id number] 11:02:26 Test Item Value Reference Range Interpretation Comments TSH (test code = TSH) 1.060 mIU/mL 0.270-4.200 Lipid [id number] 10:58:47 Test Item Value Reference Range Interpretation Comments Cholesterol Total 214 mg/dL 0-200 H RISK OF HE ART (test code = DISEASEPublishe d by Cholesterol Total) [facility] [employer] [employer] [place] Optimal Borderl ine Increased RiskC HOL <200 200-239 >2 40TRIG <150 150-199 >2 00HDL Male >60 <40H DL Female >60 <5 0LDL <100 130-159 >1 60LDL Near optimal is 100-129 Triglycerides (test 322 mg/dL 9-200 H code = Triglycerides) HDL (test code = HDL) 37 mg/dL 40-60 L LDL (test code = LDL) 112 mg/dL 0-130 The eq uation being used in this calcula tion is LDL = (Chol - H DL) - (Trig / 5) VLDL (test code = 64 mg/dL 5-40 H The equati on being used VLDL) in this calcula tion is VLDL = Trig / 5 Chol/HDL (test code = 5.8 ratio 0.0-5.0 H Chol/HDL) LDL/HDL Ratio (test 3 N The equa tion being used code = LDL/HDL Ratio) in [place] [facility] calculation is LDL/HDL Ratio=L DL Calc/HDL Chol Lipid [id number] 10:58:47 Test Item Value Reference Range Interpretation Comments Cholesterol Total 214 mg/dL 0-200 H RISK OF HE ART (test code = DISEASEPublishe d by Cholesterol Total) [employer] Kaia lyte Optimal Borderl ine Increased RiskC HOL <200 200-239 >2 40TRIG <150 150-199 >2 00HDL Male >60 <40H DL Female >60 <5 0LDL <100 130-159 >1 60LDL Near optimal is 100-129 Triglycerides (test 322 mg/dL 9-200 H code = Triglycerides) HDL (test code = HDL) 37 mg/dL 50-60 L Refere nce range changed due to change i n patient's sex a t 19:15 :05. Normal Low yepez ged from 40 to 50. Resu lt flag not changed. LDL (test code = LDL) 112 mg/dL 0-130 The eq uation being used in this calcula tion is LDL = (Chol - H DL) - (Trig / 5) VLDL (test code = 64 mg/dL 5-40 H The equati on being used VLDL) in this calcula tion is VLDL = Trig / 5 Chol/HDL (test code = 5.8 ratio 0.0-4.4 H Refere nce range changed Chol/HDL) due to change i n patient's sex a t 19:15 :05. Normal High porter nged from 5.0 to 4.4 . Result flag not changed. LDL/HDL Ratio (test 3 N The equa tion being used code = LDL/HDL Ratio) in [facility] s calculation is LDL/HDL Ratio=L DL Calc/HDL Chol Urine [id number] 09:31:38No growth at 24 hours. No growth at 48 hours.IG [id number] 13:18:22 Test Item Value Reference Range Interpretation Comments IG (test code = IG) 0.3 % 0.0-5.0 IG Abs (test code = IG Abs) 0 x10 N Complete Blood Count with [id number] 13:18:21 Test Item Value Reference Range Interpretation Comments WBC (test code = WBC) 9.9 x10 4.4-10.5 RBC (test code = RBC) 4.97 x10 4.10-5.70 Hgb (test code = Hgb) 15.4 g/dL 13.4-17.4 Hct (test code = Hct) 43.7 % 38.7-52.0 MCV (test code = MCV) 87.90 fL 80.00-100.00 MCHC (test code = 35.20 g/dL 32.00-37.50 MCHC) MCH (test code = MCH) 31.0 pg 27.0-32.5 RDW CV (test code = 12.3 % 11.5-14.5 RDW CV) Platelets (test code = 347.0 x10 140.0-440.0 Platelets) MPV (test code = MPV) 10.0 fL N Slide Review (test Auto Auto Result cr eated by code = Slide Review) GL_SJM_ SLIDE_REV_AUTO nRBC (test code = 0 N nRBC) NRBC Abs (test code = 0.00 x10 N NRBC Abs) IPF (test code = IPF) 0 % N Automated [id number] 13:18:21 Test Item Value Reference Range Interpretation Comments Neutro Auto (test code = Neutro 57.7 % 36.0-70.0 Auto) Lymph Auto (test code = Lymph Auto) 31.9 % 12.0-44.0 [place] Auto (test code = [place] Auto) 7.3 % 0.0-11.0 Eos, Auto (test code = Eos, Auto) 2.1 % 0.0-7.0 Basophil Auto (test code = Basophil 0.7 % 0.0-2.0 Auto) Neutro Absolute (test code = Neutro 5.7 x10 1.6-7.4 Absolute) Lymph Absolute (test code = Lymph 3.16 x10 .50-4.60 Absolute) [place] Absolute (test code = [place] .72 x10 .00-1.20 Absolute) Eos Absolute (test code = Eos 0.21 x10 0.00-0.74 Absolute) Baso Absolute (test code = Baso 0.07 x10 0.00-0.21 Absolute) Complete Blood Count with [id number] 13:18:21 Test Item Value Reference Range Interpretation Comments WBC (test code = WBC) 9.9 x10 4.4-10.5 RBC (test code = RBC) 4.97 x10 3.75-5.20 Refere nce range changed due to change in patient's se x at 19:15 :05. Normal Low yepez ged from 4.10 to 3. 75. Normal High porter nged from 5.70 to 5. 20. Result flag not changed. Hgb (test code = Hgb) 15.4 g/dL 12.2-14.8 H Refere nce range changed due to change in patient's se x at 19:15 :05. Normal Low yepez ged from 13.4 to 12 .2. Normal High porter nged from 17.4 to 14 .8. Result flag porter nged from within ran ge to H. Hct (test code = Hct) 43.7 % 36.5-44.4 Refere nce range changed due to change in patient's se x at 19:15 :05. Normal Low yepez ged from 38.7 to 36 .5. Normal High porter nged from 52.0 to 44 .4. Result flag not changed. MCV (test code = MCV) 87.90 fL 80.00-100.00 MCHC (test code = 35.20 g/dL 32.00-37.50 MCHC) MCH (test code = MCH) 31.0 pg 27.0-32.5 RDW CV (test code = 12.3 % 11.5-14.5 RDW CV) Platelets (test code = 347.0 x10 140.0-440.0 Platelets) MPV (test code = MPV) 10.0 fL N Slide Review (test Auto Auto Result cr eated by code = Slide Review) GL_SJM_ SLIDE_REV_AUTO nRBC (test code = 0 N nRBC) NRBC Abs (test code = 0.00 x10 N NRBC Abs) IPF (test code = IPF) 0 % N Drugs of Abuse Urine [id number] 13:13:42 Test Item Value Reference Range Interpretation Comments Amphetamine Screen Ur Negative Negative For di agnostic (test code = Amphetamine pur poses only. Screen Ur) Positive result s should always b e assessed in conjunction wit h a patient's medic al history. Barbiturate Screen Ur Negative Negative (test code = Barbiturate Screen Ur) Benzodiazepines Ur (test Negative Negative code = Benzodiazepines Ur) Cocaine Screen Ur (test Negative Negative code = Cocaine Screen Ur) U Methadone (test code = Negative Negative U Methadone) Opiate Screen Ur (test Negative Negative code = Opiate Screen Ur) U PCP Scrn (test code = U Negative Negative PCP Scrn) U Propoxyphene (test code Negative Negative = U Propoxyphene) Cannabinoid Screen Ur Negative Negative (test code = Cannabinoid Screen Ur) Comprehensive Metabolic [id number] 13:10:46 Test Item Value Reference Range Interpretation Comments Sodium Level (test code = Sodium 139.0 mmol/L 135.0-145.0 Level) Potassium Level (test code = 4.2 mmol/L 3.5-5.1 Potassium Level) Chloride Level (test code = 99 mmol/L 98-105 Chloride Level) CO2 (test code = CO2) 30 mmol/L 22-29 H Anion Gap (test code = Anion 10 mmol/L 7-16 Gap) BUN (test code = BUN) 11.50 mg/dL 6.00-20.00 Creatinine Level (test code = 0.80 mg/dL 0.70-1.20 Creatinine Level) BUN/Creat Ratio (test code = 14 N BUN/Creat Ratio) Glucose Level (test code = 286 mg/dL 70-115 H Glucose Level) Calcium Level (test code = 9.4 mg/dL 8.3-10.5 Calcium Level) Alk Phos (test code = Alk Phos) 101 U/L 40-129 Bilirubin Total (test code = 0.2 mg/dL 0.1-0.9 Bilirubin Total) Albumin Level (test code = 4.3 g/dL 3.5-5.2 Albumin Level) Protein Total (test code = 7.2 g/dL 6.4-8.3 Protein Total) ALT (test code = ALT) 17 U/L 1-41 AST (test code = AST) 16 U/L 1-40 Globulin (test code = Globulin) 2.9 g/dL 2.9-3.1 A/G Ratio (test code = A/G 1.5 ratio N Ratio) Comprehensive Metabolic [id number] 13:10:46 Test Item Value Reference Range Interpretation Comments Sodium Level (test 139.0 mmol/L 135.0-145.0 code = Sodium Level) Potassium Level 4.2 mmol/L 3.5-5.1 (test code = Potassium Level) Chloride Level (test 99 mmol/L 98-105 code = Chloride Level) CO2 (test code = 30 mmol/L 22-29 H CO2) Anion Gap (test code 10 mmol/L 7-16 = Anion Gap) BUN (test code = 11.50 mg/dL 6.00-20.00 BUN) Creatinine Level 0.80 mg/dL 0.70-1.20 (test code = Creatinine Level) BUN/Creat Ratio 14 N (test code = BUN/Creat Ratio) Glucose Level (test 286 mg/dL 70-115 H code = Glucose Level) Calcium Level (test 9.4 mg/dL 8.3-10.5 code = Calcium Level) Alk Phos (test code 101 U/L 40-129 = Alk Phos) Bilirubin Total 0.2 mg/dL 0.1-0.9 (test code = Bilirubin Total) Albumin Level (test 4.3 g/dL 3.5-5.2 code = Albumin Level) Protein Total (test 7.2 g/dL 6.4-8.3 code = Protein Total) ALT (test code = 17 U/L 1-41 ALT) AST (test code = 16 U/L 1-40 AST) Globulin (test code 2.9 g/dL 2.9-3.1 = Globulin) A/G Ratio (test code 1.5 ratio N = A/G Ratio) eGFR AA (test code = >60 N eGFR (e stimated eGFR AA) mL/min/1.73 m2 Glomerular Filtration Rate ) is an estimated va lue, calculated from the patient's serum creatinine usin g the MDRD equation. It is NOT the patient 's actual GFR. The eGFR provides a more clinically usef ul measure of kidn ey disease than se rum creatinine alone.This calculation angel es sex and race in to account, if the information is provided. If th e race is not provided, and t he patient is -Rhea n, multiply by 1.2 12. If sex is not provided, and t he patient is fema le, multiply by 0.7 42. Results for pat ients <18 years of ag e have not been validated by th e MDRD study and should be interpreted wit h caution. eGFR R esult Interpretation: eGFR > or = 60 is in the Normal RangeeGF R < 60 may mean kid alyssa diseaseeGFR < 1 5 may mean kidney failure Rang es recommended by the National Kidney Foundation, http://nkdep.ni h.gov Alcohol [id number] 13:10:46 Test Item Value Reference Range Interpretation Comments Ethanol Level (test <0.00 g/dL 0.00-0.01 Intoxica wade 0.080 g/dL code = Ethanol or more Level) Ethanol Inst (test <0 N code = Ethanol Inst) Comprehensive Metabolic [id number] 13:10:46 Test Item Value Reference Range Interpretation Comments Sodium Level (test 139.0 mmol/L 135.0-145.0 code = Sodium Level) Potassium Level 4.2 mmol/L 3.5-5.1 (test code = Potassium Level) Chloride Level (test 99 mmol/L 98-105 code = Chloride Level) CO2 (test code = 30 mmol/L 22-29 H CO2) Anion Gap (test code 10 mmol/L 7-16 = Anion Gap) BUN (test code = 11.50 mg/dL 6.00-20.00 BUN) Creatinine Level 0.80 mg/dL 0.70-1.20 (test code = Creatinine Level) BUN/Creat Ratio 14 N (test code = BUN/Creat Ratio) Glucose Level (test 286 mg/dL 70-115 H code = Glucose Level) Calcium Level (test 9.4 mg/dL 8.3-10.5 code = Calcium Level) Alk Phos (test code 101 U/L 40-129 = Alk Phos) Bilirubin Total 0.2 mg/dL 0.1-0.9 (test code = Bilirubin Total) Albumin Level (test 4.3 g/dL 3.5-5.2 code = Albumin Level) Protein Total (test 7.2 g/dL 6.4-8.3 code = Protein Total) ALT (test code = 17 U/L 1-41 ALT) AST (test code = 16 U/L 1-40 AST) Globulin (test code 2.9 g/dL 2.9-3.1 = Globulin) A/G Ratio (test code 1.5 ratio N = A/G Ratio) eGFR AA (test code = >60 N eGFR (e stimated eGFR AA) mL/min/1.73 m2 Glomerular Filtration Rate ) is an estimated va lue, calculated from the patient's serum creatinine usin g the MDRD equation. It is NOT the patient 's actual GFR. The eGFR provides a more clinically usef ul measure of kidn ey disease than se rum creatinine alone.This calculation angel es sex and race in to account, if the information is provided. If th e race is not provided, and t he patient is -Rhea n, multiply by 1.2 12. If sex is not provided, and t he patient is fema le, multiply by 0.7 42. Results for pat ients <18 years of ag e have not been validated by [facility] MDRD study and should be interpreted wit h caution. eGFR R esult Interpretation: eGFR > or = 60 is in the Normal RangeeGF R < 60 may mean kid alyssa diseaseeGFR < 1 5 may mean kidney failure Rang es recommended by the National Kidney Foundation, http://nkdep.ni h.gov eGFR Non-AA (test >60.00 N eGFR (lauro mated code = eGFR Non-AA) mL/min/1.73 m2 Glomer ular Filtration Rate ) is an estimated va lue, calculated from the patient's serum creatinine usin g the MDRD equation. It is NOT the patient 's actual GFR. The eGFR provides a more clinically usef ul measure of kidn ey disease than se rum creatinine alone.This calculation angel es sex and race in to account, if the information is provided. If th e race is not provided, and t he patient is -Rhea n, multiply by 1.2 12. If sex is not provided, and t he patient is fema le, multiply by 0.7 42. Results for pat ients <18 years of ag e have not been validated by [facility] MDRD study and should be interpreted wit h caution. eGFR R esult Interpretation: eGFR > or = 60 is in the Normal RangeeGF R < 60 may mean kid alyssa diseaseeGFR < 1 5 may mean kidney failure Rang es recommended by the National Kidney Foundation, http://nkdep.ni h.gov Comprehensive Metabolic [id number] 13:10:46 Test Item Value Reference Range Interpretation Comments Sodium Level (test 139.0 mmol/L 135.0-145.0 code = Sodium Level) Potassium Level 4.2 mmol/L 3.5-5.1 (test code = Potassium Level) Chloride Level (test 99 mmol/L 98-105 code = Chloride Level) CO2 (test code = 30 mmol/L 22-29 H CO2) Anion Gap (test code 10 mmol/L 7-16 = Anion Gap) BUN (test code = 11.50 mg/dL 6.00-20.00 BUN) Creatinine Level 0.80 mg/dL 0.50-0.90 Reference r blaise (test code = changed due to Creatinine Level) change in patient's sex at 9 19:15:05. Norm al Low changed fro m 0.70 to 0.50. Normal High porter nged from 1.20 to 0. 90. Result flag not changed. BUN/Creat Ratio 14 N (test code = BUN/Creat Ratio) Glucose Level (test 286 mg/dL 70-115 H code = Glucose Level) Calcium Level (test 9.4 mg/dL 8.3-10.5 code = Calcium Level) Alk Phos (test code 101 U/L 35-104 Referenc e range = Alk Phos) changed due to change in patie nt's sex at 9 19:15:05. Norm al Low changed fro m 40 to 35. Normal High changed from 12 9 to 104. Result fl ag not changed. Bilirubin Total 0.2 mg/dL 0.1-0.9 (test code = Bilirubin Total) Albumin Level (test 4.3 g/dL 3.5-5.2 code = Albumin Level) Protein Total (test 7.2 g/dL 6.4-8.3 code = Protein Total) ALT (test code = 17 U/L 1-33 Reference r blaise ALT) changed due to change in patie nt's sex at 19:15:05. Norm al High changed fr om 41 to 33. Result flag not changed. AST (test code = 16 U/L 1-32 Reference r blaise AST) changed due to change in patie nt's sex at 9 19:15:05. Norm al High changed fr om 40 to 32. Result flag not changed. Globulin (test code 2.9 g/dL 2.9-3.1 = Globulin) A/G Ratio (test code 1.5 ratio N = A/G Ratio) eGFR AA (test code = >60 N eGFR (e stimated eGFR AA) mL/min/1.73 m2 Glomerular Filtration Rate ) is an estimated va lue, calculated from the patient's serum creatinine usin g the MDRD equation. It is NOT the patient 's actual GFR. The eGFR provides a more clinically usef ul measure of kidn ey disease than se rum creatinine alone.This calculation angel es sex and race in to account, if the information is provided. If th e race is not provided, and t he patient is -Rhea n, multiply by 1.2 12. If sex is not provided, and t he patient is fema le, multiply by 0.7 42. Results for pat ients <18 years of ag e have not been validated by e MDRD study and should be interpreted wit h caution. eGFR R esult Interpretation: eGFR > or = 60 is in the Normal RangeeGF R < 60 may mean kid alyssa diseaseeGFR < 1 5 may mean kidney failure Rang es recommended by the National Kidney Foundation, http://nkdep.ni h.gov eGFR Non-AA (test >60.00 N eGFR (lauro mated code = eGFR Non-AA) mL/min/1.73 m2 Glomer ular Filtration Rate ) is an estimated va lue, calculated from the patient's serum creatinine usin g the MDRD equation. It is NOT the patient 's actual GFR. The eGFR provides a more clinically usef ul measure of kidn ey disease than se rum creatinine alone.This calculation angel es sex and race in to account, if the information is provided. If th e race is not provided, and t he patient is -Rhea n, multiply by 1.2 12. If sex is not provided, and t he patient is fema le, multiply by 0.7 42. Results for pat ients <18 years of ag e have not been validated by [facility] MDRD study and should be interpreted wit h caution. 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[facility] [id number] 08:00:00 Test Item Value Reference Range Interpretation Comments GLUBED (test code = 217 MG/DL 70-110 H Performe 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[facility] [id number] 05:54:00 Test Item Value Reference Range Interpretation Comments GLUBED (test code = 368 MG/DL 70-110 H Performe 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[facility] URINALYSIS [id number] 05:14:00 Test Item Value Reference Range Interpretation Comments UA COLOR (test code = COLU) COLORLESS YEL/STRAW UA APPEARANCE (test code = CLEAR CLEAR APPU) UA GLUCOSE DIPSTICK (test 3+ NEGATIVE A code = DGLUU) UA BILIRUBIN DIPSTICK (test NEGATIVE NEGATIVE code = BILU) UA KETONE DIPSTICK (test NEGATIVE NEGATIVE code = KETU) UA SPECIFIC GRAVITY (test 1.024 1.005-1.030 N code = SGU) UA BLOOD DIPSTICK (test NEGATIVE NEGATIVE code = GERSON) UA PH DIPSTICK (test code = 6.0 5.0-7.0 N MITCHEL) UA PROTEIN DIPSTICK (test NEGATIVE NEGATIVE code = PROU) UA UROBILINIOGEN DIPSTICK 0.2 mg/dL 0.2-1.0 (test code = URO) UA NITRITE DIPSTICK (test NEGATIVE NEGATIVE code = KAL) UA LEUKOCYTE ESTERASE NEGATIVE NEGATIVE DIPSTICK (test code = LEUU) UA WBC (test code = WBCU) NONE SEEN WBC/HPF 0-3 UA RBC (test code = RBCU) 0-3 RBC/HPF 0-3 UA BACTERIA (test code = NONE SEEN /HPF NONE SEEN BACU) UA SQUAMOUS CELLS (test NONE SEEN /HPF NONE SEEN code = SQU) VENOUS BLOOD [id number] 04:32:00 Test Item Value Reference Range Interpretation Comments VENOUS BLOOD GAS PH 7.35 7.33-7.45 N (test code = PHV) VENOUS BLOOD GAS PCO2 43 mmHg 43-47 N (test code = PCO2V) VENOUS BLOOD GAS PO2 69 mmHg 10-50 H (test code = PO2V) VBG HCO3 (test code = 23.8 mmol/L 22-27 N HCO3V) VBG BASE EXCESS (test -2.0 mmol/L -4.0-4.0 N code = GIORGIO) VENOUS BLOOD GAS O2 93 % 60-80 H SAT. 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[facility]) [facility] BLOOD GAS TEMP 98.6 F (test code = TEMPV) VENOUS BLOOD GAS SITE Other (test code = SITEV) VENOUS TCO2 (test 25 code = TCO2V) BASIC METABOLIC [id number] 04:18:00 Test Item Value Reference Range Interpretation Comments SODIUM (test code = NA) 134 mEq/L 134-147 N POTASSIUM (test code = 4.2 mEq/L 3.4-5.0 N K) CHLORIDE (test code = 100 mEq/L 100-108 N CL) CARBON DIOXIDE (test 24 mEq/L 21-33 N code = CO2) ANION GAP (test code = 14 0-20 N GAP) GLUCOSE (test code = 557 mg/dL 70-110 HH GLU) BLOOD UREA NITROGEN 14 mg/dL 7-18 N (test code = BUN) GLOMERULAR FILTRATION 81.9 95-105 L Units of measure = RATE (test code = GFR) ml/mi n/1.73 m2 CREATININE (test code = 1.0 mg/dL 0.6-1.3 N CREAT) CALCIUM (test code = 7.9 mg/dL 8.0-10.5 L CA) HEPATIC FUNCTION [id number] 04:18:00 Test Item Value Reference Range Interpretation Comments TOTAL PROTEIN (test code = PROT) 7.1 g/dL 6.4-8.2 N ALBUMIN (test code = ALB) 3.00 g/dL 3.4-5.0 L BILIRUBIN TOTAL (test code = 0.30 mg/dL 0.0-1.0 N BILT) BILIRUBIN DIRECT (test code = < 0.10 MG/DL 0.0-0.30 N BILD) BILIRUBIN INDIRECT (test code = 0.20 MG/DL BILIND) SGOT/AST (test code = AST) 21 IUnit/L 15-37 N SGPT/ALT (test code = ALT) 27 IUnit/L 15-65 N ALKALINE PHOSPHATASE TOTAL (test 149 IUnit/L 20-125 H code = ALKP) [id number] 04:18:00 Test Item Value Reference Range Interpretation Comments LIPASE (test code = LIP) 201 IUnit/L 73-393 N ACETONE [id number] 04:18:00 Test Item Value Reference Range Interpretation Comments ACETONE QUANT (test NEGATIVE - <20mg/dL NEG - <20 code = ACETN) mg/dL PROTHROMBIN [id number] 04:09:00 Test Item Value Reference Range Interpretation Comments PROTHROMBIN TIME 9.8 SECONDS 9.3-12.9 N PATIENT (test code = PTP) INTERNATIONAL NORMAL 0.9 0.8-1.2 N TARGET RATIO (test code = INR BY IN DICATION INR) Indication INR1. Prophyl axis of venous thrombos is 2.0 - 3. 0 (orthopedic víctor ousmane), Prophylaxis of venous thrombos is (other than hig h-risk surgery), Teresa tment of Deep Vein Thrombosis/Pulm onary Embolism, Preve ntion of systemic emb olism - Tissue heart va lves, Acute Myocardia l Infarction (to prevent systemic embo lism), Valvular heart disease, Atri al Fibrillation, Bileaflet mecha nical valve in aortic position.2. Mec hanical prosthetic valv es (high risk), 2.5 - 3.5 Presence of Lupus Anticoagu lant or Antiphospholi pid Antibodies, Pre vention of systemic e mbolism - Acute Myocard ial Infarction (t o prevent recurre nt infarct). BASIC METABOLIC [id number] 04:08:00 Test Item Value Reference Range Interpretation Comments SODIUM (test code = NA) mEq/L 134-147 POTASSIUM (test code = K) mEq/L 3.4-5.0 CHLORIDE (test code = CL) mEq/L 100-108 CARBON DIOXIDE (test code = CO2) mEq/L 21-33 ANION GAP (test code = GAP) 0-20 GLUCOSE (test code = GLU) mg/dL 70-110 BLOOD UREA NITROGEN (test code = BUN) mg/dL 7-18 GLOMERULAR FILTRATION RATE (test code 95-105 = GFR) CREATININE (test code = CREAT) mg/dL 0.6-1.3 CALCIUM (test code = CA) mg/dL 8.0-10.5 HEPATIC FUNCTION [id number] 04:08:00 Test Item Value Reference Range Interpretation Comments TOTAL PROTEIN (test code = PROT) g/dL 6.4-8.2 ALBUMIN (test code = ALB) g/dL 3.4-5.0 BILIRUBIN TOTAL (test code = BILT) mg/dL 0.0-1.0 BILIRUBIN DIRECT (test code = BILD) MG/DL 0.0-0.30 SGOT/AST (test code = AST) IUnit/L 15-37 SGPT/ALT (test code = ALT) IUnit/L 15-65 ALKALINE PHOSPHATASE TOTAL (test IUnit/L 20-125 code = ALKP) [id number] 04:08:00 Test Item Value Reference Range Interpretation Comments LIPASE (test code = LIP) IUnit/L 73-393 ACETONE [id number] 04:08:00 Test Item Value Reference Range Interpretation Comments ACETONE QUANT (test NEGATIVE - <20mg/dL NEG - <20 code = ACETN) mg/dL CBC W/AUTO [id number] 03:55:00 Test Item Value Reference Range Interpretation Comments WHITE BLOOD CELL (test code = 7.87 x10 3/uL 4.5-11.0 WBC) RED BLOOD CELL (test code = 4.51 x10 6/uL 4.00-5.60 N RBC) HEMOGLOBIN (test code = HGB) 14.3 g/dL 12.5-16.9 N HEMATOCRIT (test code = HCT) 41.1 % 37.5-50.7 N MEAN CELL VOLUME (test code = 91.1 fL 81.0-99.0 N MCV) MEAN CELL HGB (test code = MCH) 31.7 pg 27.0-33.0 N MEAN CELL HGB CONCETRATION 34.8 g/dL 33.0-37.0 N (test code = MCHC) RED CELL DISTRIBUTION WIDTH CV 12.5 % 11.5-14.5 N (test code = RDW) RED CELL DISTRIBUTION WIDTH SD 41.6 fL 37.0-54.0 N (test code = RDW-SD) PLATELET COUNT (test code = 266 x10 3/uL 150-400 N PLT) MEAN PLATELET VOLUME (test code 10.4 fL 7.0-9.0 H = MPV) NEUTROPHIL % (test code = NT%) 57.1 % 56.0-77.0 N IMMATURE GRANULOCYTE % (test 0.4 % 0.0-2.0 N code = IG%) LYMPHOCYTE % (test code = LY%) 31.5 % 14.0-32.0 N MONOCYTE % (test code = MO%) 7.9 % 4.8-9.0 N EOSINOPHIL % (test code = EO%) 2.2 % 0.3-3.7 N BASOPHIL % (test code = BA%) 0.9 % 0.0-2.0 N NUCLEATED RBC % (test code = 0.0 % 0-0 N NRBC%) NEUTROPHIL # (test code = NT#) 4.50 x10 3/uL 2.0-7.6 N IMMATURE GRANULOCYTE # (test 0.03 x10 3/uL 0.00-0.03 N code = IG#) LYMPHOCYTE # (test code = LY#) 2.48 x10 3/uL 1.0-3.8 N MONOCYTE # (test code = MO#) 0.62 x10 3/uL 0.1-0.8 N EOSINOPHIL # (test code = EO#) 0.17 x10 3/uL 0.0-0.2 N BASOPHIL # (test code = BA#) 0.07 x10 3/uL 0.0-0.2 N NUCLEATED RBC # (test code = 0.00 x10 3/uL 0.0-0.1 N NRBC#) MANUAL DIFF REQUIRED (test code NO = MDIFF) TROPONIN-I [id number] 03:45:00 Test Item Value Reference Range Interpretation Comments TROPONIN-I RAPID 0.00 ng/mL 0.00-0.08 N Performed b y certified (test code = 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 The universal defin ition of OK, according to is taskforce, is d efined as a typical rise an d gradual fall ofcardiac biomarkers (preferably tro ponin) with at least oneval ue above the 99th percentile of the upper reference limit (URL) together with e vidence of myocardial isch emia with at least one of th e following:* isc hemic symptoms,* path ological Q waves on electr ocardiogram (ECG),* ischemi c ECG changes,* or im aging evidence of new loss of viable myocardi um or new regional wall m otion abnormality. An elevated troponin value alone is not sufficient todi agnose a myocardial infa rction. Rather, the pat ient sclinical prese ntation (history, physi tonia exam) and ECGshould b e used in conjunction wit h troponin in thediagnosti c evaluation of suspected my ocardial infarction. Ase rial sampling protoc ol is recommended to facilitate the identificat ion of temporal change s in troponin levels characteristic of [place]. Comprehensive Metabolic [id number] 01:07:10 Test Item Value Reference Range Interpretation Comments Sodium Level (test 136.0 mmol/L 135.0-145.0 code = Sodium Level) Potassium Level 4.2 mmol/L 3.5-5.1 (test code = Potassium Level) Chloride Level (test 97 mmol/L 98-105 L code = Chloride Level) CO2 (test code = 26 mmol/L 22-29 CO2) Anion Gap (test code 13 mmol/L 7-16 = Anion Gap) BUN (test code = 8.50 mg/dL 6.00-20.00 BUN) Creatinine Level 0.80 mg/dL 0.50-0.90 Reference r blaise (test code = changed due to Creatinine Level) change in patient's sex at 19:15:07. Norm al Low changed fro m 0.70 to 0.50. Normal High porter nged from 1.20 to 0. 90. Result flag not changed. BUN/Creat Ratio 11 N (test code = BUN/Creat Ratio) Glucose Level (test 319 mg/dL 70-115 H code = Glucose Level) Calcium Level (test 9.4 mg/dL 8.3-10.5 code = Calcium Level) Alk Phos (test code 107 U/L 35-104 H Referenc e range = Alk Phos) changed due to change in patie nt's sex at 9 19:15:07. Norm al Low changed fro m 40 to 35. Normal High changed from 12 9 to 104. Result fl ag changed from wi thin range to H. Bilirubin Total 0.2 mg/dL 0.1-0.9 (test code = Bilirubin Total) Albumin Level (test 4.5 g/dL 3.5-5.2 code = Albumin Level) Protein Total (test 7.4 g/dL 6.4-8.3 code = Protein Total) ALT (test code = 32 U/L 1-33 Reference r [facility] ALT) changed due to change in patie nt's sex at 19:15:07. Norm al High changed fr om 41 to 33. Result flag not changed. AST (test code = 26 U/L 1-32 Reference r [facility] AST) changed due to change in patie nt's sex at 19:15:07. Norm al High changed fr om 40 to 32. Result flag not changed. Globulin (test code 2.9 g/dL 2.9-3.1 = Globulin) A/G Ratio (test code 1.6 ratio N = A/G Ratio) eGFR AA (test code = >60 N eGFR (e stimated eGFR AA) mL/min/1.73 m2 Glomerular Filtration Rate ) is an estimated va lue, calculated from the patient's serum creatinine usin g the MDRD equation. It is NOT the patient 's actual GFR. The eGFR provides a more clinically usef ul measure of kidn ey disease than se rum creatinine alone.This calculation angel es sex and race in to account, if the information is provided. If th e race is not provided, and t he patient is -Rhea n, multiply by 1.2 12. If sex is not provided, and t he patient is fema le, multiply by 0.7 42. Results for pat ients <18 years of ag e have not been validated by [facility] MDRD study and should be interpreted wit h caution. eGFR R esult Interpretation: eGFR > or = 60 is in the Normal RangeeGF R < 60 may mean kid alyssa diseaseeGFR < 1 5 may mean kidney failure Rang es recommended by the National Kidney Foundation, http://nkdep.ni h.gov eGFR Non-AA (test >60.00 N eGFR (lauro mated code = eGFR Non-AA) mL/min/1.73 m2 Glomer ular Filtration Rate ) is an estimated va lue, calculated from the patient's serum creatinine usin g the MDRD equation. It is NOT the patient 's actual GFR. The eGFR provides a more clinically usef ul measure of kidn ey disease than se rum creatinine alone.This calculation angel es sex and race in to account, if the information is provided. If th e race is not provided, and t he patient is -Rhea n, multiply by 1.2 12. If sex is not provided, and t he patient is fema le, multiply by 0.7 42. Results for pat ients <18 years of ag e have not been validated by [facility] MDRD study and should be interpreted wit h caution. eGFR R esult Interpretation: eGFR > or = 60 is in the Normal RangeeGF R < 60 may mean kid alyssa diseaseeGFR < 1 5 may mean kidney failure Rang es recommended by the National Kidney Foundation, http://nkdep.ni h.gov Complete Blood Count with [id number] 00:39:59 Test Item Value Reference Range Interpretation Comments WBC (test code = WBC) 9.4 x10 4.4-10.5 RBC (test code = RBC) 4.09 x10 3.75-5.20 Refere nce range changed due to change in patient's se x at 19:15 :07. Normal Low yepez ged from 4.10 to 3. 75. Normal High porter nged from 5.70 to 5. 20. Result flag porter nged from L to withi n range. Hgb (test code = Hgb) 12.6 g/dL 12.2-14.8 Refere nce range changed due to change in patient's se x at 19:15 :07. Normal Low yepez ged from 13.4 to 12 .2. Normal High porter nged from 17.4 to 14 .8. Result flag porter nged from L to withi n range. MCV (test code = MCV) 87.00 fL 80.00-100.00 Hct (test code = Hct) 35.6 % 36.5-44.4 L Refere nce range changed due to change in patient's se x at 19:15 :07. Normal Low yepez ged from 38.7 to 36 .5. Normal High porter nged from 52.0 to 44 .4. Result flag not changed. MCHC (test code = 35.40 g/dL 32.00-37.50 MCHC) MCH (test code = MCH) 30.8 pg 27.0-32.5 RDW CV (test code = 12.3 % 11.5-14.5 RDW CV) Platelets (test code = 313.0 x10 140.0-440.0 Platelets) MPV (test code = MPV) 10.4 fL N Slide Review (test Auto Auto Result cr eated by code = Slide Review) GL_SJM_ SLIDE_REV_AUTO GL_SJM_XN_RFLX GL_SJM_XN_RFLX nRBC (test code = 0 N nRBC) NRBC Abs (test code = 0.00 x10 N NRBC Abs) Pos Count XN (test A N code = Pos Count XN) IPF (test code = IPF) 0 % N POCT-GLUCOSE [id number] 20:46:00 Test Item Value Reference Range Interpretation Comments POC-GLUCOSE METER 195 mg/dL 70-110 H TESTED AT [facility] 95[address] ([facility]) (test code = [place] [id number] [address] Brain/Head w/o [id number] 00:25:11Patient: BRITT FUENTES Date/Time11/04/2017 00:06 CDTReason for ExamAltered level of consciousnessReportExam: CT of the brain without contrast.History: Altered mental statusLocation: [id number]: Contiguous axial CT images were obtained from the skull base through the vertex without contrast.Comparison: None availableFindings:The ventricles and sulci are normal in size and symmetric. The basal cisterns are patent. There is no mass effect ormidline shift. There is no acute intracranial hemorrhage. There are no extra-axial fluid collections.Paranasal sinuses and mastoid air cells are clear.Impression:No CT evidence of an acute intracranial hemorrhage or significant mass effect Final Dictated by: MD Radha, SaniaDictated DT/TM: 11/04/2017 0:23 amSigned by: MD Radha, SaniaSigned (Electronic Signature): 11/04/2017 0:25 amComprehensive Metabolic Panel 2017-11-03 22:03:09 Test Item Value Reference Range Interpretation Comments Sodium Level (test 136.0 mmol/L 135.0-145.0 code = Sodium Level) Potassium Level 4.0 mmol/L 3.5-5.1 (test code = Potassium Level) Chloride Level (test 99 mmol/L 98-105 code = Chloride Level) CO2 (test code = 24 mmol/L 22-29 CO2) Anion Gap (test code 13 mmol/L 7-16 = Anion Gap) BUN (test code = 24.20 mg/dL 6.00-20.00 H BUN) Creatinine Level 1.10 mg/dL 0.50-0.90 H Reference r blaise (test code = changed due to Creatinine Level) change in patient's sex at 9 19:15:08. Norm al Low changed fro m 0.70 to 0.50. Normal High porter nged from 1.20 to 0. 90. Result flag porter nged from within ran ge to H. BUN/Creat Ratio 22 N (test code = BUN/Creat Ratio) Glucose Level (test 265 mg/dL 70-115 H code = Glucose Level) Calcium Level (test 9.5 mg/dL 8.3-10.5 code = Calcium Level) Alk Phos (test code 80 U/L 35-104 Referenc e range = Alk Phos) changed due to change in patie nt's sex at 19:15:08. Norm al Low changed fro m 40 to 35. Normal High changed from 12 9 to 104. Result fl ag not changed. Bilirubin Total <0.1 mg/dL 0.1-0.9 (test code = Bilirubin Total) Albumin Level (test 4.0 g/dL 3.5-5.2 code = Albumin Level) Protein Total (test 6.8 g/dL 6.4-8.3 code = Protein Total) ALT (test code = 17 U/L 1-33 Reference [facility] ALT) changed due to change in patie nt's sex at 9 19:15:08. Norm al High changed fr om 41 to 33. Result flag not changed. AST (test code = 17 U/L 1-32 Reference r [facility] AST) changed due to change in patie nt's sex at 9 19:15:08. Norm al High changed fr om 40 to 32. Result flag not changed. Globulin (test code 2.8 g/dL 2.9-3.1 L = Globulin) A/G Ratio (test code 1.4 ratio N = A/G Ratio) eGFR AA (test code = >60 N eGFR (e stimated eGFR AA) mL/min/1.73 m2 Glomerular Filtration Rate ) is an estimated va lue, calculated from the patient's serum creatinine usin g the MDRD equation. It is NOT the patient 's actual GFR. The eGFR provides a more clinically usef ul measure of kidn ey disease than se rum creatinine alone.This calculation angel es sex and race in to account, if the information is provided. If th e race is not provided, and t he patient is -Rhea n, multiply by 1.2 12. If sex is not provided, and t he patient is fema le, multiply by 0.7 42. Results for pat ients <18 years of ag e have not been validated by th e MDRD study and should be interpreted wit h caution. eGFR R esult Interpretation: eGFR > or = 60 is in the Normal RangeeGF R < 60 may mean kid alyssa diseaseeGFR < 1 5 may mean kidney failure Rang es recommended by the National Kidney Foundation, http://nkdep.ni h.gov eGFR Non-AA (test >60.00 N eGFR (lauro mated code = eGFR Non-AA) mL/min/1.73 m2 Glomer ular Filtration Rate ) is an estimated va lue, calculated from the patient's serum creatinine usin g the MDRD equation. It is NOT the patient 's actual GFR. The eGFR provides a more clinically usef ul measure of kidn ey disease than se rum creatinine alone.This calculation angel es sex and race in to account, if the information is provided. If th e race is not provided, and t he patient is -Rhea n, multiply by 1.2 12. If sex is not provided, and t he patient is fema le, multiply by 0.7 42. Results for pat ients <18 years of ag e have not been validated by th e MDRD study and should be interpreted wit h caution. eGFR R esult Interpretation: eGFR > or = 60 is in the Normal RangeeGF R < 60 may mean kid alyssa diseaseeGFR < 1 5 may mean kidney failure Rang es recommended by the National Kidney Foundation, http://nkdep.ni h.gov Complete Blood Count with [id number] 21:44:38 Test Item Value Reference Range Interpretation Comments WBC (test code = WBC) 8.3 x10 4.4-10.5 RBC (test code = RBC) 3.92 x10 3.75-5.20 Refere nce range changed due to change in patient's se x at 19:15 :08. Normal Low yepez ged from 4.10 to 3. 75. Normal High porter nged from 5.70 to 5. 20. Result flag porter nged from L to withi n range. Hgb (test code = Hgb) 12.2 g/dL 12.2-14.8 Refere nce range changed due to change in patient's se x at 19:15 :08. Normal Low yepez ged from 13.4 to 12 .2. Normal High porter nged from 17.4 to 14 .8. Result flag porter nged from L to withi n range. MCV (test code = MCV) 89.30 fL 80.00-100.00 Hct (test code = Hct) 35.0 % 36.5-44.4 L Refere nce range changed due to change in patient's se x at 19:15 :08. Normal Low yepez ged from 38.7 to 36 .5. Normal High porter nged from 52.0 to 44 .4. Result flag not changed. MCHC (test code = 34.90 g/dL 32.00-37.50 MCHC) RDW CV (test code = 12.5 % 11.5-14.5 RDW CV) MCH (test code = MCH) 31.1 pg 27.0-32.5 Platelets (test code = 348.0 x10 140.0-440.0 Platelets) MPV (test code = MPV) 9.9 fL N Slide Review (test Auto Auto Result cr eated by code = Slide Review) GL_SJM_ SLIDE_REV_AUTO nRBC (test code = 0 N nRBC) NRBC Abs (test code = 0.00 x10 N NRBC Abs) IPF (test code = IPF) 0 % N Comprehensive Metabolic [id number] 15:49:10 Test Item Value Reference Range Interpretation Comments Sodium Level (test 137.0 mmol/L 135.0-145.0 code = Sodium Level) Potassium Level 4.0 mmol/L 3.5-5.1 (test code = Potassium Level) Chloride Level (test 98 mmol/L 98-105 code = Chloride Level) CO2 (test code = 24 mmol/L 22-29 CO2) Anion Gap (test code 15 mmol/L 7-16 = Anion Gap) BUN (test code = 10.70 mg/dL 6.00-20.00 BUN) Creatinine Level 0.70 mg/dL 0.50-0.90 Reference r blaise (test code = changed due to Creatinine Level) change in patient's sex at 9 19:15:10. Norm al Low changed fro m 0.70 to 0.50. Normal High porter nged from 1.20 to 0. 90. Result flag not changed. BUN/Creat Ratio 15 N (test code = BUN/Creat Ratio) Glucose Level (test 176 mg/dL 70-115 H code = Glucose Level) Calcium Level (test 8.9 mg/dL 8.3-10.5 code = Calcium Level) Alk Phos (test code 87 U/L 35-104 Referenc e range = Alk Phos) changed due to change in patie nt's sex at 19:15:10. Norm al Low changed fro m 40 to 35. Normal High changed from 12 9 to 104. Result fl ag not changed. Bilirubin Total 0.3 mg/dL 0.1-0.9 (test code = Bilirubin Total) Albumin Level (test 4.2 g/dL 3.5-5.2 code = Albumin Level) Protein Total (test 6.8 g/dL 6.4-8.3 code = Protein Total) ALT (test code = 21 U/L 1-33 Reference r [facility] ALT) changed due to change in patie nt's sex at 19:15:10. Norm al High changed fr om 41 to 33. Result flag not changed. AST (test code = 19 U/L 1-32 Reference r [facility] AST) changed due to change in patie nt's sex at 19:15:10. Norm al High changed fr om 40 to 32. Result flag not changed. Globulin (test code 2.6 g/dL 2.9-3.1 L = Globulin) A/G Ratio (test code 1.6 ratio N = A/G Ratio) eGFR AA (test code = >60 N eGFR (e stimated eGFR AA) mL/min/1.73 m2 Glomerular Filtration Rate ) is an estimated va lue, calculated from the patient's serum creatinine usin g the MDRD equation. It is NOT the patient 's actual GFR. The eGFR provides a more clinically usef ul measure of kidn ey disease than se rum creatinine alone.This calculation angel es sex and race in to account, if the information is provided. If th e race is not provided, and t he patient is -Rhea n, multiply by 1.2 12. If sex is not provided, and t he patient is fema le, multiply by 0.7 42. Results for pat ients <18 years of ag e have not been validated by [facility] MDRD study and should be interpreted wit h caution. eGFR R esult Interpretation: eGFR > or = 60 is in the Normal RangeeGF R < 60 may mean kid alyssa diseaseeGFR < 1 5 may mean kidney failure Rang es recommended by the National Kidney Foundation, http://nkdep.ni h.gov eGFR Non-AA (test >60.00 N eGFR (lauro mated code = eGFR Non-AA) mL/min/1.73 m2 Glomer ular Filtration Rate ) is an estimated va lue, calculated from the patient's serum creatinine usin g the MDRD equation. It is NOT the patient 's actual GFR. The eGFR provides a more clinically usef ul measure of kidn ey disease than se rum creatinine alone.This calculation angel es sex and race in to account, if the information is provided. If e race is not provided, and t he patient is -Rhea n, multiply by 1.2 12. If sex is not provided, and t he patient is fema le, multiply by 0.7 42. Results for pat ients <18 years of ag e have not been validated by [facility] MDRD study and should be interpreted wit h caution. eGFR R esult Interpretation: eGFR > or = 60 is in the Normal RangeeGF R < 60 may mean kid alyssa diseaseeGFR < 1 5 may mean kidney failure Rang es recommended by the National Kidney Foundation, http://nkdep.ni h.gov Complete Blood Count with [id number] 15:44:44 Test Item Value Reference Range Interpretation Comments WBC (test code = WBC) 9.2 x10 4.4-10.5 RBC (test code = RBC) 4.30 x10 3.75-5.20 Refere nce range changed due to change in patient's se x at 19:15 :10. Normal Low yepez ged from 4.10 to 3. 75. Normal High porter nged from 5.70 to 5. 20. Result flag not changed. Hgb (test code = Hgb) 13.4 g/dL 12.2-14.8 Refere nce range changed due to change in patient's se x at 19:15 :10. Normal Low yepez ged from 13.4 to 12 .2. Normal High porter nged from 17.4 to 14 .8. Result flag not changed. MCV (test code = MCV) 87.90 fL 80.00-100.00 Hct (test code = Hct) 37.8 % 36.5-44.4 Refere nce range changed due to change in patient's se x at 19:15 :10. Normal Low yepez ged from 38.7 to 36 .5. Normal High portre nged from 52.0 to 44 .4. Result flag porter nged from L to withi n range. MCHC (test code = 35.40 g/dL 32.00-37.50 MCHC) RDW CV (test code = 12.7 % 11.5-14.5 RDW CV) MCH (test code = MCH) 31.2 pg 27.0-32.5 Platelets (test code = 346.0 x10 140.0-440.0 Platelets) MPV (test code = MPV) 9.9 fL N Slide Review (test Auto Auto Result cr eated by code = Slide Review) GL_SJM_ SLIDE_REV_AUTO nRBC (test code = 0 N nRBC) NRBC Abs (test code = 0.00 x10 N NRBC Abs) IPF (test code = IPF) 0 % N URINALYSIS W/ [id number] 00:30:00 Test Item Value Reference Range Interpretation Comments COLOR (BEAKER) (test code = 470) Yellow CLARITY (BEAKER) (test code = Clear 469) SPECIFIC GRAVITY UA (BEAKER) 1.007 1.001-1.035 (test code = 468) PH UA (BEAKER) (test code = 467) 6.0 5.0-8.0 PROTEIN UA (BEAKER) (test code = Negative Negative 464) GLUCOSE UA (BEAKER) (test code = >1000 mg/dL Negative A 365) KETONES UA (BEAKER) (test code = Negative Negative 371) BILIRUBIN UA (BEAKER) (test code Negative Negative = 462) BLOOD UA (BEAKER) (test code = Negative Negative 461) NITRITE UA (BEAKER) (test code = Negative Negative 465) LEUKOCYTE ESTERASE UA (BEAKER) Negative Negative (test code = 466) UROBILINOGEN UA (BEAKER) (test 0.2 mg/dL 0.2-1.0 code = 463) RBC UA (BEAKER) (test code = 519) 0 /HPF WBC UA (BEAKER) (test code = 520) 0 /HPF MUCUS (BEAKER) (test code = 1574) Rare HYALINE CASTS (BEAKER) (test code 2 /LPF = 514) AMORPHOUS CRYSTALS (BEAKER) (test Rare code = 1584) SOURCE(BEAKER) (test code = 2795) POCT-GLUCOSE [id number] 23:25:00 Test Item Value Reference Range Interpretation Comments POC-GLUCOSE METER 266 mg/dL 70-110 H TESTED AT [facility] 67[address] (BEAKER) (test code = [place] 1538) [address] BASIC METABOLIC [id number] 23:12:00 Test Item Value Reference Range Interpretation Comments SODIUM (BEAKER) 132 meq/L 136-145 L (test code = 381) POTASSIUM (BEAKER) 4.1 meq/L 3.5-5.1 (test code = 379) CHLORIDE (BEAKER) 100 meq/L 98-107 (test code = 382) CO2 (BEAKER) (test 22 meq/L 22-29 code = 355) BLOOD UREA NITROGEN 12 mg/dL 7-21 (BEAKER) (test code = 354) CREATININE (BEAKER) 1.03 mg/dL 0.57-1.25 (test code = 358) GLUCOSE RANDOM 321 mg/dL 70-105 H (BEAKER) (test code = 652) CALCIUM (BEAKER) 9.0 mg/dL 8.4-10.2 (test code = 697) EGFR (BEAKER) (test 96 mL/min/1.73 ESTIMA WADE GFR IS code = 1092) sq m NOT ACCURATE CREATININE CLEARANCE IN PREDICTING GLOMERULAR FILTRATION RATE . ESTIMATED GFR I S NOT APPLICABLE FOR DIALYSIS PATIEN TS. RAD, KNEE, COMPLETE (4 VIEWS), [id number] 23:01:00Reason for exam:->FALL FINAL REPORT RAD, KNEE, COMPLETE (4 VIEWS), RIGHT CLINICAL INDICATION: FALL COMPARISON: None FINDINGS: Frontal, oblique and lateral views of the right knee. There is no fracture or malalignment. The femorotibial and femoropatellar joint spaces are intact. No joint fluid is de monstrated. Surrounding soft tissues are unremarkable. IMPRESSION: No acute traumatic osseous abnormality of the right knee. Signed: JR Rene Robert MDReport Verified Date/Time: 10/21/2017 23:01:41 Reading Location: [address] Reading Room CBC W/PLT COUNT & AUTO DIFFERENTIAL 2017-10-21 22:52:00 Test Item Value Reference Range Interpretation Comments WHITE BLOOD CELL COUNT (BEAKER) 9.7 K/ L 3.5-10.5 (test code = 775) RED BLOOD CELL COUNT (BEAKER) 4.07 M/ L 4.63-6.08 L (test code = 761) HEMOGLOBIN (BEAKER) (test code = 12.4 GM/DL 13.7-17.5 L 410) HEMATOCRIT (BEAKER) (test code = 36.7 % 40.1-51.0 L 411) MEAN CORPUSCULAR VOLUME (BEAKER) 90.2 fL 79.0-92.2 (test code = 753) MEAN CORPUSCULAR HEMOGLOBIN 30.5 pg 25.7-32.2 (BEAKER) (test code = 751) MEAN CORPUSCULAR HEMOGLOBIN CONC 33.8 GM/DL 32.3-36.5 (BEAKER) (test code = 752) RED CELL DISTRIBUTION WIDTH 12.6 % 11.6-14.4 (BEAKER) (test code = 412) PLATELET COUNT (BEAKER) (test 292 K/CU MM 150-450 code = 756) MEAN PLATELET VOLUME (BEAKER) 10.2 fL 9.4-12.4 (test code = 754) NUCLEATED RED BLOOD CELLS 0 /100 WBC 0-0 (BEAKER) (test code = 413) NEUTROPHILS RELATIVE PERCENT 53 % (BEAKER) (test code = 429) LYMPHOCYTES RELATIVE PERCENT 34 % (BEAKER) (test code = 430) MONOCYTES RELATIVE PERCENT 9 % (BEAKER) (test code = 431) EOSINOPHILS RELATIVE PERCENT 3 % (BEAKER) (test code = 432) BASOPHILS RELATIVE PERCENT 1 % (BEAKER) (test code = 437) NEUTROPHILS ABSOLUTE COUNT 5.19 K/ L 1.78-5.38 ([facility]) (test code = 670) LYMPHOCYTES ABSOLUTE COUNT 3.31 K/ L 1.32-3.57 (AKER) (test code = 414) MONOCYTES ABSOLUTE COUNT (AKER) 0.85 K/ L 0.30-0.82 H (test code = 415) EOSINOPHILS ABSOLUTE COUNT 0.27 K/ L 0.04-0.54 (AKER) (test code = 416) BASOPHILS ABSOLUTE COUNT (AKER) 0.08 K/ L 0.01-0.08 (test code = 417) IMMATURE GRANULOCYTES-RELATIVE 0 % 0-1 PERCENT ([facility]) (test code = 2801) KETONE, [id number] 22:52:00 Test Item Value Reference Range Interpretation Comments KETONES, BLOOD ([facility]) (test code 0.1 mmol/L <0.4 = 1103) POCT-GLUCOSE [id number] 22:11:00 Test Item Value Reference Range Interpretation Comments POC-GLUCOSE METER 324 mg/dL 70-110 H TESTED AT [facility] 67[address] ([facility]) (test code = [place] 1538) [id number] Comprehensive Metabolic [id number] 02:06:31 Test Item Value Reference Range Interpretation Comments Sodium Level (test 137.0 mmol/L 135.0-145.0 code = Sodium Level) Potassium Level 3.7 mmol/L 3.5-5.1 (test code = Potassium Level) Chloride Level (test 100 mmol/L 98-105 code = Chloride Level) CO2 (test code = 27 mmol/L 22-29 CO2) Anion Gap (test code 10 mmol/L 7-16 = Anion Gap) BUN (test code = 13.70 mg/dL 6.00-20.00 BUN) Creatinine Level 0.70 mg/dL 0.50-0.90 Reference r blaise (test code = changed due to Creatinine Level) change in patient's sex at 9 19:15:11. Norm al Low changed fro m 0.70 to 0.50. Normal High porter nged from 1.20 to 0. 90. Result flag not changed. BUN/Creat Ratio 20 N (test code = BUN/Creat Ratio) Glucose Level (test 229 mg/dL 70-115 H code = Glucose Level) Calcium Level (test 8.8 mg/dL 8.3-10.5 code = Calcium Level) Alk Phos (test code 78 U/L 35-104 Referenc e range = Alk Phos) changed due to change in patie nt's sex at 19:15:11. Norm al Low changed fro m 40 to 35. Normal High changed from 12 9 to 104. Result fl ag not changed. Bilirubin Total <0.1 mg/dL 0.1-0.9 (test code = Bilirubin Total) Albumin Level (test 3.5 g/dL 3.5-5.2 code = Albumin Level) Protein Total (test 6.0 g/dL 6.4-8.3 L code = Protein Total) ALT (test code = 17 U/L 1-33 Reference r [facility] ALT) changed due to change in patie nt's sex at 19:15:11. Norm al High changed fr om 41 to 33. Result flag not changed. AST (test code = 15 U/L 1-32 Reference r [facility] AST) changed due to change in patie nt's sex at 19:15:11. Norm al High changed fr om 40 to 32. Result flag not changed. Globulin (test code 2.5 g/dL 2.9-3.1 L = Globulin) A/G Ratio (test code 1.4 ratio N = A/G Ratio) eGFR AA (test code = >60 N eGFR (e stimated eGFR AA) mL/min/1.73 m2 Glomerular Filtration Rate ) is an estimated va lue, calculated from the patient's serum creatinine usin g the MDRD equation. It is NOT the patient 's actual GFR. The eGFR provides a more clinically usef ul measure of kidn ey disease than se rum creatinine alone.This calculation angel es sex and race in to account, if the information is provided. If th e race is not provided, and t he patient is -Rhea n, multiply by 1.2 12. If sex is not provided, and t he patient is fema le, multiply by 0.7 42. Results for pat ients <18 years of ag e have not been validated by th e MDRD study and should be interpreted wit h caution. eGFR R esult Interpretation: eGFR > or = 60 is in the Normal RangeeGF R < 60 may mean kid alyssa diseaseeGFR < 1 5 may mean kidney failure Rang es recommended by the National Kidney Foundation, http://nkdep.ni h.gov eGFR Non-AA (test >60.00 N eGFR (lauro mated code = eGFR Non-AA) mL/min/1.73 m2 Glomer ular Filtration Rate ) is an estimated va lue, calculated from the patient's serum creatinine usin g the MDRD equation. It is NOT the patient 's actual GFR. The eGFR provides a more clinically usef ul measure of kidn ey disease than se rum creatinine alone.This calculation angel es sex and race in to account, if the information is provided. If e race is not provided, and t he patient is -Rhea n, multiply by 1.2 12. If sex is not provided, and t he patient is fema le, multiply by 0.7 42. Results for pat ients <18 years of ag e have not been validated by e MDRD study and should be interpreted wit h caution. eGFR R esult Interpretation: eGFR > or = 60 is in the Normal RangeeGF R < 60 may mean kid alyssa diseaseeGFR < 1 5 may mean kidney failure Rang es recommended by the National Kidney Foundation, http://nkdep.ni h.gov Complete Blood Count with [id number] 01:51:13 Test Item Value Reference Range Interpretation Comments WBC (test code = WBC) 7.5 x10 4.4-10.5 RBC (test code = RBC) 3.88 x10 3.75-5.20 Refere nce range changed due to change in patient's se x at 19:15 :11. Normal Low yepez ged from 4.10 to 3. 75. Normal High porter nged from 5.70 to 5. 20. Result flag porter nged from L to withi n range. Hgb (test code = Hgb) 12.2 g/dL 12.2-14.8 Refere nce range changed due to change in patient's se x at 19:15 :11. Normal Low yepez ged from 13.4 to 12 .2. Normal High porter nged from 17.4 to 14 .8. Result flag porter nged from L to withi n range. Hct (test code = Hct) 34.4 % 36.5-44.4 L Refere nce range changed due to change in patient's se x at 19:15 :11. Normal Low yepez ged from 38.7 to 36 .5. Normal High porter nged from 52.0 to 44 .4. Result flag not changed. MCV (test code = MCV) 88.70 fL 80.00-100.00 MCHC (test code = 35.50 g/dL 32.00-37.50 MCHC) RDW CV (test code = 13.1 % 11.5-14.5 RDW CV) MCH (test code = MCH) 31.4 pg 27.0-32.5 Platelets (test code = 306.0 x10 140.0-440.0 Platelets) MPV (test code = MPV) 9.9 fL N Slide Review (test Auto Auto Result cr eated by code = Slide Review) GL_SJM_ SLIDE_REV_AUTO nRBC (test code = 0 N nRBC) NRBC Abs (test code = 0.00 x10 N NRBC Abs) IPF (test code = IPF) 0 % N Complete Blood Count with [id number] 03:59:01 Test Item Value Reference Range Interpretation Comments WBC (test code = WBC) 9.2 x10 4.4-10.5 RBC (test code = RBC) 4.12 x10 3.75-5.20 Refere nce range changed due to change in patient's se x at 19:15 :12. Normal Low yepez ged from 4.10 to 3. 75. Normal High porter nged from 5.70 to 5. 20. Result flag not changed. Hgb (test code = Hgb) 12.8 g/dL 12.2-14.8 Refere nce range changed due to change in patient's se x at 19:15 :12. Normal Low yepez ged from 13.4 to 12 .2. Normal High porter nged from 17.4 to 14 .8. Result flag porter nged from L to withi n range. Hct (test code = Hct) 36.4 % 36.5-44.4 L Refere nce range changed due to change in patient's se x at 19:15 :12. Normal Low yepez ged from 38.7 to 36 .5. Normal High porter nged from 52.0 to 44 .4. Result flag not changed. MCV (test code = MCV) 88.30 fL 80.00-100.00 MCHC (test code = 35.20 g/dL 32.00-37.50 MCHC) RDW CV (test code = 12.9 % 11.5-14.5 RDW CV) MCH (test code = MCH) 31.1 pg 27.0-32.5 Platelets (test code = 318.0 x10 140.0-440.0 Platelets) MPV (test code = MPV) 10.6 fL N Slide Review (test Auto Auto Result cr eated by code = Slide Review) GL_SJM_ SLIDE_REV_AUTO nRBC (test code = 0 N nRBC) NRBC Abs (test code = 0.00 x10 N NRBC Abs) IPF (test code = IPF) 0 % N Comprehensive Metabolic [id number] 03:52:18 Test Item Value Reference Range Interpretation Comments Sodium Level (test 138.0 mmol/L 135.0-145.0 code = Sodium Level) Potassium Level 4.2 mmol/L 3.5-5.1 (test code = Potassium Level) Chloride Level (test 99 mmol/L 98-105 code = Chloride Level) CO2 (test code = 25 mmol/L 22-29 CO2) Anion Gap (test code 14 mmol/L 7-16 = Anion Gap) BUN (test code = 11.50 mg/dL 6.00-20.00 BUN) Creatinine Level 0.70 mg/dL 0.50-0.90 Reference r blaise (test code = changed due to Creatinine Level) change in patient's sex at 9 19:15:12. Norm al Low changed fro m 0.70 to 0.50. Normal High porter nged from 1.20 to 0. 90. Result flag not changed. BUN/Creat Ratio 16 N (test code = BUN/Creat Ratio) Glucose Level (test 260 mg/dL 70-115 H code = Glucose Level) Calcium Level (test 8.7 mg/dL 8.3-10.5 code = Calcium Level) Alk Phos (test code 94 U/L 35-104 Referenc e range = Alk Phos) changed due to change in patie nt's sex at 19:15:12. Norm al Low changed fro m 40 to 35. Normal High changed from 12 9 to 104. Result fl ag not changed. Bilirubin Total <0.1 mg/dL 0.1-0.9 (test code = Bilirubin Total) Albumin Level (test 3.9 g/dL 3.5-5.2 code = Albumin Level) Protein Total (test 6.5 g/dL 6.4-8.3 code = Protein Total) ALT (test code = 21 U/L 1-33 Reference r [facility] ALT) changed due to change in patie nt's sex at 9 19:15:12. Norm al High changed fr om 41 to 33. Result flag not changed. AST (test code = 25 U/L 1-32 Reference r [facility] AST) changed due to change in patie nt's sex at 19:15:12. Norm al High changed fr om 40 to 32. Result flag not changed. Globulin (test code 2.6 g/dL 2.9-3.1 L = Globulin) A/G Ratio (test code 1.5 ratio N = A/G Ratio) eGFR AA (test code = >60 N eGFR (e stimated eGFR AA) mL/min/1.73 m2 Glomerular Filtration Rate ) is an estimated va lue, calculated from the patient's serum creatinine usin g the MDRD equation. It is NOT the patient 's actual GFR. The eGFR provides a more clinically usef ul measure of kidn ey disease than se rum creatinine alone.This calculation angel es sex and race in to account, if the information is provided. If th e race is not provided, and t he patient is -Rhea n, multiply by 1.2 12. If sex is not provided, and t he patient is fema le, multiply by 0.7 42. Results for pat ients <18 years of ag e have not been validated by th e MDRD study and should be interpreted wit h caution. eGFR R esult Interpretation: eGFR > or = 60 is in the Normal RangeeGF R < 60 may mean kid alyssa diseaseeGFR < 1 5 may mean kidney failure Rang es recommended by the National Kidney Foundation, http://nkdep.ni h.gov eGFR Non-AA (test >60.00 N eGFR (lauro mated code = eGFR Non-AA) mL/min/1.73 m2 Glomer ular Filtration Rate ) is an estimated va lue, calculated from the patient's serum creatinine usin g the MDRD equation. It is NOT the patient 's actual GFR. The eGFR provides a more clinically usef ul measure of kidn ey disease than se rum creatinine alone.This calculation angel es sex and race in to account, if the information is provided. If th e race is not provided, and t he patient is -Rhea n, multiply by 1.2 12. If sex is not provided, and t he patient is fema le, multiply by 0.7 42. Results for pat ients <18 years of ag e have not been validated by th e MDRD study and should be interpreted wit h caution. eGFR R esult Interpretation: eGFR > or = 60 is in the Normal RangeeGF R < 60 may mean kid alyssa diseaseeGFR < 1 5 may mean kidney failure Rang es recommended by the National Kidney Foundation, http://nkdep.ni h.gov CREATINE KINASE (CK), TOTAL AND [id number] 04:39:00 Test Item Value Reference Range Interpretation Comments CREATINE KINASE TOTAL (BEAKER) 382 U/L 29-200 H (test code = 380) CREATINE KINASE-MB (BEAKER) (test 6.5 ng/mL 0.0-6.6 code = 750) CREATINE KINASE-MB INDEX (BEAKER) 1.7 % (test code = 395) CK-MB Reference Range:<6.7 Normal6.7-10.0 Borderline>10.0 AbnormalTROPONIN [id number] 04:39:00 Test Item Value Reference Range Interpretation Comments TROPONIN I (BEAKER) (test code = 397) < ng/mL 0.00-0.03 Troponin I (TnI) levels must be interpreted in the context of the presenting symptoms and the clinical findings. Elevated TnI levels indicate myocardial damage, but are not specific for ischemic heart disease. Elevated TnI levels are seen in patients with other cardiac conditions (including myocarditis and congestive heart failure), and slight TnI elevations occur in patients with other conditions, including sepsis, renal failure, acidosis, acute neurological disease, and persistent tachyarrhythmia.RAD, CHEST, 1 VIEW, NON [id number] 00:46:00Reason for exam:->DIZZINESSFINAL REPORT History: Dizziness. Comparison: None. Findings: A single view of the chest is submitted. The examination is limited by lordotic positioning. The cardiomediastinal contours are unremarkable. There is no focal consolidation, pneumothorax, large pleural effusion or evidence of overt pulmonary edema. There is no acute bony abnormality. Impression: No acute abnormality. Signed: Piyush Garsia MDReport Verified Date/Time: 09/24/2017 00:46:00 Reading Location: [address] Reading Room BASIC METABOLIC [id number] 00:07:00 Test Item Value Reference Range Interpretation Comments SODIUM (BEAKER) 138 meq/L 136-145 (test code = 381) POTASSIUM (BEAKER) 3.7 meq/L 3.5-5.1 (test code = 379) CHLORIDE (BEAKER) 102 meq/L 98-107 (test code = 382) CO2 (BEAKER) (test 26 meq/L 22-29 code = 355) BLOOD UREA NITROGEN 9 mg/dL 7-21 (BEAKER) (test code = 354) CREATININE (BEAKER) 0.94 mg/dL 0.57-1.25 (test code = 358) GLUCOSE RANDOM 323 mg/dL 70-105 H (BEAKER) (test code = 652) CALCIUM (BEAKER) 8.5 mg/dL 8.4-10.2 (test code = 697) EGFR (BEAKER) (test mL/min/1.73 INSUFFIC IENT CLINICAL code = 1092) sq m DATA TO CALCULA TE ESTIMATED GFR. CREATINE KINASE (CK), TOTAL AND [id number] 00:01:00 Test Item Value Reference Range Interpretation Comments CREATINE KINASE TOTAL (BEAKER) 469 U/L 29-200 H (test code = 380) CREATINE KINASE-MB (BEAKER) (test 7.3 ng/mL 0.0-6.6 H code = 750) CREATINE KINASE-MB INDEX (BEAKER) 1.6 % (test code = 395) CK-MB Reference Range:<6.7 Normal6.7-10.0 Borderline>10.0 AbnormalTROPONIN [id number] 00:01:00 Test Item Value Reference Range Interpretation Comments TROPONIN I (BEAKER) (test code = 397) < ng/mL 0.00-0.03 Troponin I (TnI) levels must be interpreted in the context of the presenting symptoms and the clinical findings. Elevated TnI levels indicate myocardial damage, but are not specific for ischemic heart disease. Elevated TnI levels are seen in patients with other cardiac conditions (including myocarditis and congestive heart failure), and slight TnI elevations occur in patients with other conditions, including sepsis, renal failure, acidosis, acute neurological disease, and persistent tachyarrhythmia.[id number] 23:55:00 Test Item Value Reference Range Interpretation Comments MAGNESIUM (BEAKER) (test code = 1.9 mg/dL 1.6-2.6 627) [id number] 23:51:00 Test Item Value Reference Range Interpretation Comments PROTIME (BEAKER) (test code = 13.1 seconds 11.7-14.7 759) INR (BEAKER) (test code = 370) 1.0 <=5.9 PARTIAL THROMBOPLASTIN TIME 24.0 seconds 22.5-36.0 (BEAKER) (test code = 760) RECOMMENDED COUMADIN/WARFARIN INR THERAPY RANGESSTANDARD DOSE: 2.0 - 3.0 Includes: PROPHYLAXIS forvenous thrombosis, systemic embolization; TREATMENT for venous thrombosis and/or pulmonary embolus.HIGH RISK: Target INR is 2.5-3.5 for patients with mechanical heart valves.CBC W/PLT COUNT & AUTO DIFFERENTIAL 2017-09-23 23:41:00 Test Item Value Reference Range Interpretation Comments WHITE BLOOD CELL COUNT (BEAKER) 11.5 K/ L 3.5-10.5 H (test code = 775) RED BLOOD CELL COUNT (BEAKER) 4.30 M/ L 4.63-6.08 L (test code = 761) HEMOGLOBIN (BEAKER) (test code = 13.4 GM/DL 13.7-17.5 L 410) HEMATOCRIT (BEAKER) (test code = 38.7 % 40.1-51.0 L 411) MEAN CORPUSCULAR VOLUME (BEAKER) 90.0 fL 79.0-92.2 (test code = 753) MEAN CORPUSCULAR HEMOGLOBIN 31.2 pg 25.7-32.2 (BEAKER) (test code = 751) MEAN CORPUSCULAR HEMOGLOBIN CONC 34.6 GM/DL 32.3-36.5 (BEAKER) (test code = 752) RED CELL DISTRIBUTION WIDTH 13.0 % 11.6-14.4 (BEAKER) (test code = 412) PLATELET COUNT (BEAKER) (test 290 K/CU MM 150-450 code = 756) MEAN PLATELET VOLUME (BEAKER) 9.8 fL 9.4-12.4 (test code = 754) NUCLEATED RED BLOOD CELLS 0 /100 WBC 0-0 (BEAKER) (test code = 413) NEUTROPHILS RELATIVE PERCENT 57 % (BEAKER) (test code = 429) LYMPHOCYTES RELATIVE PERCENT 32 % (BEAKER) (test code = 430) MONOCYTES RELATIVE PERCENT 8 % (BEAKER) (test code = 431) EOSINOPHILS RELATIVE PERCENT 3 % (BEAKER) (test code = 432) BASOPHILS RELATIVE PERCENT 0 % (BEAKER) (test code = 437) NEUTROPHILS ABSOLUTE COUNT 6.49 K/ L 1.78-5.38 H (BEAKER) (test code = 670) LYMPHOCYTES ABSOLUTE COUNT 3.66 K/ L 1.32-3.57 H (BEAKER) (test code = 414) MONOCYTES ABSOLUTE COUNT (BEAKER) 0.93 K/ L 0.30-0.82 H (test code = 415) EOSINOPHILS ABSOLUTE COUNT 0.30 K/ L 0.04-0.54 (BEAKER) (test code = 416) BASOPHILS ABSOLUTE COUNT (BEAKER) 0.04 K/ L 0.01-0.08 (test code = 417) IMMATURE GRANULOCYTES-RELATIVE 1 % 0-1 PERCENT (BEAKER) (test code = 2801) POCT-GLUCOSE [id number] 23:22:00 Test Item Value Reference Range Interpretation Comments POC-GLUCOSE METER 304 mg/dL 70-110 H TESTED AT [facility] [address] (BEAKER) (test code = [place] 1538) [address] Comprehensive Metabolic [id number] 03:05:25 Test Item Value Reference Range Interpretation Comments Sodium Level (test 139.0 mmol/L 135.0-145.0 code = Sodium Level) Potassium Level 4.2 mmol/L 3.5-5.1 (test code = Potassium Level) Chloride Level (test 98 mmol/L 98-105 code = Chloride Level) CO2 (test code = 26 mmol/L 22-29 CO2) Anion Gap (test code 15 mmol/L 7-16 = Anion Gap) BUN (test code = 13.50 mg/dL 6.00-20.00 BUN) Creatinine Level 1.00 mg/dL 0.50-0.90 H Reference r blaise (test code = changed due to Creatinine Level) change in patient's sex at 19:15:14. Norm al Low changed fro m 0.70 to 0.50. Normal High porter nged from 1.20 to 0. 90. Result flag porter nged from within ran ge to H. BUN/Creat Ratio 14 N (test code = BUN/Creat Ratio) Glucose Level (test 128 mg/dL 70-115 H code = Glucose Level) Calcium Level (test 10.0 mg/dL 8.3-10.5 code = Calcium Level) Alk Phos (test code 109 U/L 35-104 H Referenc e range = Alk Phos) changed due to change in patie nt's sex at 19:15:14. Norm al Low changed fro m 40 to 35. Normal High changed from 12 9 to 104. Result fl ag changed from wi thin range to H. Bilirubin Total 0.2 mg/dL 0.1-0.9 (test code = Bilirubin Total) Albumin Level (test 4.7 g/dL 3.5-5.2 code = Albumin Level) Protein Total (test 7.6 g/dL 6.4-8.3 code = Protein Total) ALT (test code = 26 U/L 1-33 Reference r blaise ALT) changed due to change in patie nt's sex at 19:15:14. Norm al High changed fr om 41 to 33. Result flag not changed. AST (test code = 24 U/L 1-32 Reference r blaise AST) changed due to change in patie nt's sex at 9 19:15:14. Norm al High changed fr om 40 to 32. Result flag not changed. Globulin (test code 2.9 g/dL 2.9-3.1 = Globulin) A/G Ratio (test code 1.6 ratio N = A/G Ratio) eGFR AA (test code = >60 N eGFR (e stimated eGFR AA) mL/min/1.73 m2 Glomerular Filtration Rate ) is an estimated va lue, calculated from the patient's serum creatinine usin g the MDRD equation. It is NOT the patient 's actual GFR. The eGFR provides a more clinically usef ul measure of kidn ey disease than se rum creatinine alone.This calculation angel es sex and race in to account, if the information is provided. If th e race is not provided, and t he patient is -Rhea n, multiply by 1.2 12. If sex is not provided, and t he patient is fema le, multiply by 0.7 42. Results for pat ients <18 years of ag e have not been validated by [facility] MDRD study and should be interpreted wit h caution. eGFR R esult Interpretation: eGFR > or = 60 is in the Normal RangeeGF R < 60 may mean kid alyssa diseaseeGFR < 1 5 may mean kidney failure Rang es recommended by the National Kidney Foundation, http://nkdep.ni h.gov eGFR Non-AA (test >60.00 N eGFR (lauro mated code = eGFR Non-AA) mL/min/1.73 m2 Glomer ular Filtration Rate ) is an estimated va lue, calculated from the patient's serum creatinine usin g the MDRD equation. It is NOT the patient 's actual GFR. The eGFR provides a more clinically usef ul measure of kidn ey disease than se rum creatinine alone.This calculation angel es sex and race in to account, if the information is provided. If th e race is not provided, and t he patient is -Rhea n, multiply by 1.2 12. If sex is not provided, and t he patient is fema le, multiply by 0.7 42. Results for pat ients <18 years of ag e have not been validated by [facility] MDRD study and should be interpreted wit h caution. eGFR R esult Interpretation: eGFR > or = 60 is in the Normal RangeeGF R < 60 may mean kid alyssa diseaseeGFR < 1 5 may mean kidney failure Rang es recommended by the National Kidney Foundation, http://nkdep.ni h.gov Complete Blood Count with [id number] 23:51:37 Test Item Value Reference Range Interpretation Comments WBC (test code = WBC) 9.6 x10 4.4-10.5 RBC (test code = RBC) 4.73 x10 3.75-5.20 Refere nce range changed due to change in patient's se x at 19:15 :14. Normal Low yepez ged from 4.10 to 3. 75. Normal High porter nged from 5.70 to 5. 20. Result flag not changed. Hgb (test code = Hgb) 14.5 g/dL 12.2-14.8 Refere nce range changed due to change in patient's se x at 19:15 :14. Normal Low yepez ged from 13.4 to 12 .2. Normal High porter nged from 17.4 to 14 .8. Result flag not changed. Hct (test code = Hct) 41.3 % 36.5-44.4 Refere nce range changed due to change in patient's se x at 19:15 :14. Normal Low yepez ged from 38.7 to 36 .5. Normal High porter nged from 52.0 to 44 .4. Result flag not changed. MCV (test code = MCV) 87.30 fL 80.00-100.00 MCHC (test code = 35.10 g/dL 32.00-37.50 MCHC) MCH (test code = MCH) 30.7 pg 27.0-32.5 RDW CV (test code = 12.6 % 11.5-14.5 RDW CV) Platelets (test code = 340.0 x10 140.0-440.0 Platelets) MPV (test code = MPV) 9.5 fL N Slide Review (test Auto Auto Result cr eated by code = Slide Review) GL_SJM_ SLIDE_REV_AUTO nRBC (test code = 0 N nRBC) NRBC Abs (test code = 0.00 x10 N NRBC Abs) IPF (test code = IPF) 0 % N POC Glucose, [id number] 08:40:00 Test Item Value Reference Range Interpretation Comments POC Glucose (test 303 mg/dL 70-115 H If you con graffiti cleaner your code = POCGLUC) patient crit ically ill, the Ricky Accu- Chek InformII meters hould not be used for Glu cose determinations. Draw a venous Glucose and send to the Main Lab for Analysis. [id number] 22:04:00 Test Item Value Reference Range Interpretation Comments Amphetamine (test code Negative Negative N For d iagnostic purposes = AMPH) only, positive results should always b e assessedin conjunctionwith the patient's medic al history,clinica l examination and otherfindings.T o fulfill legal requirements, a more specific altern ate chemical method must be used inorder to obtain a Confirmed kaia lytical result. GC/MS i s the preferred confi rmatory method. Barbiturates (test Negative Negative N code = JOSSELYN) Benzodiazepine (test Negative Negative N code = SUDHIR) Cocaine (test code = POSITIVE Negative A COCA) Methadone (test code = Negative Negative N MTHD) Opiates (test code = Negative Negative N OPIA) PCP (test code = PCP) Negative Negative N Propoxyphene (test Negative Negative N code = PROPOX) THC (test code = THC) POSITIVE Negative A Alcohol/Ethanol, [id number] 21:40:00 Test Item Value Reference Range Interpretation Comments Alcohol, Ethyl <0.01 g/dL 0.00-0.01 N Intoxicated 0.080 (test code = ETOH) g/dL or m ore Comprehensive Metabolic [id number] 21:40:00 Test Item Value Reference Range Interpretation Comments Sodium (test code = 140 mmol/L 135-145 N NA) Potassium (test 3.9 mmol/L 3.5-5.1 N code = K) Chloride (test code 101 mmol/L 98-105 N = CL) Carbon Dioxide 28 mmol/L 22-29 N (test code = CO2) Glucose (test code 165 mg/dL 70-115 H = GLU) Blood Urea Nitrogen 6 mg/dL 6-20 N (test code = BUN) Creatinine (test 0.9 mg/dL 0.7-1.2 N code = CREAT) Calcium (test code 9.3 mg/dL 8.3-10.5 N = CA) Prot Total (test 7.1 g/dL 6.4-8.3 N code = TP) Albumin (test code 4.4 g/dL 3.5-5.2 N = ALB) A/G Ratio (test 1.6 Ratio code = AGRATIO) Globulin (test code 2.7 2.9-3.1 L = GLOB) Bili Total (test 0.2 mg/dL 0.1-0.9 N code = TBIL) Alk Phos (test code 96 U/L 40-129 N = APHOS) AST (test code = 20 U/L 1-40 N AST) ALT (test code = 18 U/L 1-41 N ALT) BUN/Creatinine 6.7 Ratio (test code = BCRATIO) Anion Gap (test 11 mmol/L 7-16 N code = AGAP) Estimated GFR (test >60 eGFR (es timated code = GFR) mL/min/1.73m2 Glomerular Sourav tration Rate) is an est imated value,calculate d from the patient's s megan creatinine usin g the MDRD equation.I t is NOT the patient 's actual GFR. The eGFR provides a more clinicallyusefu l measure of kidn ey disease than se rum creatinine alone.This calculation angel es sex and race into account, if the informationis provided. If th e race is not provided , and the patient isAfrican-Ameri can, multiply by 1.2 12. If sex is not prov ided, and thepatient is female, multipl y by 0.742. Results for patients <18 ye ars ofage have not been validated by th e MDRD study and shoul d be interpretedwith caution.eGFR Re sult Interpretation: eGFR > or = 60 is in t he Normal RangeeGF R < 60 may mean kidney diseaseeGFR < 1 5 may mean kidney failureRange s recommended by the National Kidney Foundation,http ://nkd ep.nih.gov CBC with [id number] 21:33:00 Test Item Value Reference Range Interpretation Comments WBC (test code = WBC) 6.1 K/cumm 4.4-10.5 N RBC (test code = RBC) 4.69 M/cumm 4.10-5.70 N Hemoglobin (test code = HGB) 14.2 gm/dL 13.4-17.4 N Hematocrit (test code = HCT) 41.2 % 38.7-52.0 N MCV (test code = MCV) 87.8 fL 80-100 N MCH (test code = MCH) 30.2 pg 27.0-32.5 N MCHC (test code = MCHC) 34.4 g/dL 32.0-37.5 N RDW (test code = RDW) 12.5 % 11.5-14.5 N Platelet Count (test code = 277 K/cumm 140-440 N PLTCT) MPV (test code = MPV) 6.8 fL Diff Method (test code = DIFFM) Auto Neutrophil (test code = NEUT) 46.6 % 36-70 N Lymphocyte (test code = LYMPH) 39.9 % 12-44 N Monocyte (test code = MONO) 9.5 % 0-11 N Eosinophil (test code = EOS) 3.1 % 0-7 N Basophil (test code = BASO) 0.9 % 0-2 N Neutro Abs (test code = ANEUT) 2.9 K/cumm 1.6-7.4 N Lymph Abs (test code = ALYMPH) 2.4 K/cumm 0.5-4.6 N [place] Abs (test code = AMONO) 0.6 K/cumm 0.0-1.2 N Eos Abs (test code = AEOS) 0.19 K/cumm 0.00-0.74 N Baso Abs (test code = ABASO) 0.1 K/cumm 0.00-0.21 N POC Glucose, [id number] 20:46:00 Test Item Value Reference Range Interpretation Comments POC Glucose (test 164 mg/dL 70-115 H If you con graffiti cleaner your code = POCGLUC) patient crit ically ill, the Ricky Accu- Chek InformII meters hould not be used for Glu cose determinations. Draw a venous Glucose and send to the Main Lab for Analysis. POC Glucose, [id number] 09:31:00 Test Item Value Reference Range Interpretation Comments POC Glucose (test 268 mg/dL 70-115 H Notify RN or MDIf you code = POCGLUC) consider you r patient critically ill, the Ricky Accu-Chek InformII metershould not be used for Glucose determinations. Draw a venous Glucose and send to the Main Lab for Analysis. POC Glucose, [id number] 06:32:00 Test Item Value Reference Range Interpretation Comments POC Glucose (test 175 mg/dL 70-115 H If you con graffiti cleaner your code = POCGLUC) patient crit ically ill, the Ricky Accu- Chek InformII meters hould not be used for Glu cose determinations. Draw a venous Glucose and send to the Main Lab for Analysis. POC Glucose, [id number] 15:26:00 Test Item Value Reference Range Interpretation Comments POC Glucose (test 142 mg/dL 70-115 H Notify RN or MDIf you code = POCGLUC) consider you r patient critically ill, the Ricky Accu-Chek InformII metershould not be used for Glucose determinations. Draw a venous Glucose and send to the Main Lab for Analysis. POC Glucose, [id number] 10:58:00 Test Item Value Reference Range Interpretation Comments POC Glucose (test 162 mg/dL 70-115 H Notify RN or MDIf you code = POCGLUC) consider you r patient critically ill, the Ricky Accu-Chek InformII metershould not be used for Glucose determinations. Draw a venous Glucose and send to the Main Lab for Analysis. POC Glucose, [id number] 06:53:00 Test Item Value Reference Range Interpretation Comments POC Glucose (test 168 mg/dL 70-115 H If you con graffiti cleaner your code = POCGLUC) patient crit ically ill, the Ricky Accu- Chek InformII meters hould not be used for Glu cose determinations. Draw a venous Glucose and send to the Main Lab for Analysis. POC Glucose, [id number] 19:20:00 Test Item Value Reference Range Interpretation Comments POC Glucose (test 202 mg/dL 70-115 H If you con graffiti cleaner your code = POCGLUC) patient crit ically ill, the Ricky Accu- Chek InformII meters hould not be used for Glu cose determinations. Draw a venous Glucose and send to the Main Lab for Analysis. POC Glucose, [id number] 15:27:00 Test Item Value Reference Range Interpretation Comments POC Glucose (test 181 mg/dL 70-115 H Notify RN or MDIf you code = POCGLUC) consider you r patient critically ill, the Ricky Accu-Chek InformII metershould not be used for Glucose determinations. Draw a venous Glucose and send to the Main Lab for Analysis. POC Glucose, [id number] 10:48:00 Test Item Value Reference Range Interpretation Comments POC Glucose (test 172 mg/dL 70-115 H Notify RN or MDIf you code = POCGLUC) consider you r patient critically ill, the Ricky Accu-Chek InformII metershould not be used for Glucose determinations. Draw a venous Glucose and send to the Main Lab for Analysis. POC Glucose, [id number] 06:24:00 Test Item Value Reference Range Interpretation Comments POC Glucose (test 196 mg/dL 70-115 H If you con graffiti cleaner your code = POCGLUC) patient crit ically ill, the Ricky Accu- Chek InformII meters hould not be used for Glu cose determinations. Draw a venous Glucose and send to the Main Lab for Analysis. POC Glucose, [id number] 20:01:00 Test Item Value Reference Range Interpretation Comments POC Glucose (test 272 mg/dL 70-115 H If you con graffiti cleaner your code = POCGLUC) patient crit ically ill, the Ricky Accu- Chek InformII meters hould not be used for Glu cose determinations. Draw a venous Glucose and send to the Main Lab for Analysis. POC Glucose, [id number] 15:28:00 Test Item Value Reference Range Interpretation Comments POC Glucose (test 223 mg/dL 70-115 H Notify RN or MDIf you code = POCGLUC) consider you r patient critically ill, the Ricky Accu-Chek InformII metershould not be used for Glucose determinations. Draw a venous Glucose and send to the Main Lab for Analysis. POC Glucose, [id number] 12:10:00 Test Item Value Reference Range Interpretation Comments POC Glucose (test 129 mg/dL 70-115 H Notify RN or MDIf you code = POCGLUC) consider you r patient critically ill, the Ricky Accu-Chek InformII metershould not be used for Glucose determinations. Draw a venous Glucose and send to the Main Lab for Analysis. POC Glucose, [id number] 05:42:00 Test Item Value Reference Range Interpretation Comments POC Glucose (test 236 mg/dL 70-115 H Notify RN or MDIf you code = POCGLUC) consider you r patient critically ill, the Ricky Accu-Chek InformII metershould not be used for Glucose determinations. Draw a venous Glucose and send to the Main Lab for Analysis. RPR, [id number] 03:03:00 Test Item Value Reference Range Interpretation Comments RPR (test code = RPR) Non-Reactive Non-Reactive N POC Glucose, [id number] 16:21:00 Test Item Value Reference Range Interpretation Comments POC Glucose (test 318 mg/dL 70-115 H Notify RN or MDIf you code = POCGLUC) consider you r patient critically ill, the Ricky Accu-Chek InformII metershould not be used for Glucose determinations. Draw a venous Glucose and send to the Main Lab for Analysis. POC Glucose, [id number] 11:05:00 Test Item Value Reference Range Interpretation Comments POC Glucose (test 318 mg/dL 70-115 H Notify RN or MDIf you code = POCGLUC) consider you r patient critically ill, the Ricky Accu-Chek InformII metershould not be used for Glucose determinations. Draw a venous Glucose and send to the Main Lab for Analysis. POC Glucose, [id number] 06:11:00 Test Item Value Reference Range Interpretation Comments POC Glucose (test 246 mg/dL 70-115 H If you con graffiti cleaner your code = POCGLUC) patient crit ically ill, the Ricky Accu- Chek InformII meters hould not be used for Glu cose determinations. Draw a venous Glucose and send to the Main Lab for Analysis. POC Glucose, [id number] 21:57:00 Test Item Value Reference Range Interpretation Comments POC Glucose (test 144 mg/dL 70-115 H Notify RN or MDIf you code = POCGLUC) consider you r patient critically ill, the Ricky Accu-Chek InformII metershould not be used for Glucose determinations. Draw a venous Glucose and send to the Main Lab for Analysis. POC Glucose, [id number] 21:43:00 Test Item Value Reference Range Interpretation Comments POC Glucose (test 172 mg/dL 70-115 H Notify RN or MDIf you code = POCGLUC) consider you r patient critically ill, the Ricky Accu-Chek InformII metershould not be used for Glucose determinations. Draw a venous Glucose and send to the Main Lab for Analysis. POC Glucose, [id number] 19:49:00 Test Item Value Reference Range Interpretation Comments POC Glucose (test code = POCGLUC) >600 mg/dL 70-115 HH POC Glucose, [id number] 08:41:00 Test Item Value Reference Range Interpretation Comments POC Glucose (test 250 mg/dL 70-115 H If you con graffiti cleaner your code = POCGLUC) patient crit ically ill, the Ricky Accu- Chek InformII meters hould not be used for Glu cose determinations. Draw a venous Glucose and send to the Main Lab for Analysis. Urinalysis [id number] 04:20:00 Test Item Value Reference Range Interpretation Comments Color (test code = COLOR) Straw Yellow,Straw,Pl N yellow Clarity (test code = Clear Clear N CLAR) Specific [place] (test 1.004 1.001-1.035 N code = SPGR) pH (test code = PH) 5.0 5.0-9.0 N Ketone (test code = KET) Negative mg/dL Negative N Glucose (test code = 300 mg/dL Negative A GLUCUR) Protein (test code = Negative mg/dL Negative N PROT) Bilirubin (test code = Negative mg/dL Negative N BILI) Occult Blood (test code = Negative Negative N UDOB) Urobilinogen (test code = 0.2 mg/dL 0.2-1.0 N UROB) Nitrite (test code = NIT) Negative Negative N Leuk Esterase (test code Negative Negative N = LEUK) Micros Exam (test code = Indicated MEXAM) Epithelial Cells (test None /LPF 0-30 A code = EPI) WBC, Urine (test code = 0-1 /HPF 0-5 A UWBC) RBC, Urine (test code = None Seen /HPF 0-5 A URBC) Bacteria (test code = None /HPF BACT) Alcohol/Ethanol, [id number] 02:19:00 Test Item Value Reference Range Interpretation Comments Alcohol, Ethyl <0.01 g/dL 0.00-0.01 N Intoxicated 0.080 (test code = ETOH) g/dL or m ore Comprehensive Metabolic [id number] 02:19:00 Test Item Value Reference Range Interpretation Comments Sodium (test code = 137 mmol/L 135-145 N NA) Potassium (test 4.1 mmol/L 3.5-5.1 N code = K) Chloride (test code 96 mmol/L 98-105 L = CL) Carbon Dioxide 28 mmol/L 22-29 N (test code = CO2) Glucose (test code 264 mg/dL 70-115 H = GLU) Blood Urea Nitrogen 9 mg/dL 6-20 N (test code = BUN) Creatinine (test 0.9 mg/dL 0.7-1.2 N code = CREAT) Calcium (test code 9.4 mg/dL 8.3-10.5 N = CA) Prot Total (test 7.3 g/dL 6.4-8.3 N code = TP) Albumin (test code 4.2 g/dL 3.5-5.2 N = ALB) A/G Ratio (test 1.4 Ratio code = AGRATIO) Globulin (test code 3.1 2.9-3.1 N = GLOB) Bili Total (test 0.2 mg/dL 0.1-0.9 N code = TBIL) Alk Phos (test code 97 U/L 40-129 N = APHOS) AST (test code = 17 U/L 1-40 N AST) ALT (test code = 16 U/L 1-41 N ALT) BUN/Creatinine 10.0 Ratio (test code = BCRATIO) Anion Gap (test 13 mmol/L 7-16 N code = AGAP) Estimated GFR (test >60 eGFR (es timated code = GFR) mL/min/1.73m2 Glomerular Sourav tration Rate) is an est imated value,calculate d from the patient's s megan creatinine usin g the MDRD equation.I t is NOT the patient 's actual GFR. The eGFR provides a more clinicallyusefu l measure of kidn ey disease than se rum creatinine alone.This calculation angel es sex and race into account, if the informationis provided. If th e race is not provided , and the patient isAfrican-Ameri can, multiply by 1.2 12. If sex is not prov ided, and thepatient is female, multipl y by 0.742. Results for patients <18 ye ars ofage have not been validated by th e MDRD study and norma mosquera be interpretedwith caution.eGFR Re sult Interpretation: eGFR > or = 60 is in t he Normal RangeeGF R < 60 may mean kidney diseaseeGFR < 1 5 may mean kidney failureRange s recommended by the National Kidney Foundation,http ://nkd ep.nih.gov [id number] 02:16:00 Test Item Value Reference Range Interpretation Comments Amphetamine (test Negative Negative N For diagno stic code = AMPH) purposes only, positive result s should always b e assessedin conjunctionwith the patient's medic al history,clinica l examination and otherfindings.T o fulfill legal requirements, a more specific altern ate chemical method must be used inorder to obtain a Confirmed kaia lytical result. GC/MS i s the preferred confi rmatory method. Barbiturates (test Negative Negative N code = JOSSELYN) Benzodiazepine (test Negative Negative N code = SUDHIR) Cocaine (test code = Negative Negative N COCA) Methadone (test code Negative Negative N = MTHD) Opiates (test code = Negative Negative N OPIA) PCP (test code = PCP) Negative Negative N Propoxyphene (test Negative Negative N code = PROPOX) THC (test code = THC) POSITIVE Negative A Alcohol, Urine (test <0.01 g/dL 0.00-0.01 N code = ETOHU) CBC with [id number] 02:06:00 Test Item Value Reference Range Interpretation Comments WBC (test code = WBC) 8.7 K/cumm 4.4-10.5 N RBC (test code = RBC) 4.88 M/cumm 4.10-5.70 N Hemoglobin (test code = HGB) 14.7 gm/dL 13.4-17.4 N Hematocrit (test code = HCT) 44.5 % 38.7-52.0 N MCV (test code = MCV) 91.3 fL 80-100 N MCH (test code = MCH) 30.2 pg 27.0-32.5 N MCHC (test code = MCHC) 33.1 g/dL 32.0-37.5 N RDW (test code = RDW) 12.5 % 11.5-14.5 N Platelet Count (test code = 336 K/cumm 140-440 N PLTCT) MPV (test code = MPV) 9.1 fL Diff Method (test code = DIFFM) Auto Neutrophil (test code = NEUT) 60.6 % 36-70 N Lymphocyte (test code = LYMPH) 31.8 % 12-44 N Monocyte (test code = MONO) 5.2 % 0-11 N Eosinophil (test code = EOS) 1.7 % 0-7 N Basophil (test code = BASO) 0.7 % 0-2 N Neutro Abs (test code = ANEUT) 5.3 K/cumm 1.6-7.4 N Lymph Abs (test code = ALYMPH) 2.8 K/cumm 0.5-4.6 N [place] Abs (test code = AMONO) 0.5 K/cumm 0.0-1.2 N Eos Abs (test code = AEOS) 0.15 K/cumm 0.00-0.74 N Baso Abs (test code = ABASO) 0.1 K/cumm 0.00-0.21 N POC Glucose, [id number] 01:51:00 Test Item Value Reference Range Interpretation Comments POC Glucose (test 259 mg/dL 70-115 H If you con graffiti cleaner your code = POCGLUC) patient crit ically ill, the Ricky Accu- Chek InformII meters hould not be used for Glu cose determinations. Draw a venous Glucose and send to the Main Lab for Analysis. POC Glucose, [id number] 20:16:00 Test Item Value Reference Range Interpretation Comments POC Glucose (test 301 mg/dL 70-115 H Notify RN or MDIf you code = POCGLUC) consider you r patient critically ill, the Ricky Accu-Chek InformII metershould not be used for Glucose determinations. Draw a venous Glucose and send to the Main Lab for Analysis. Urinalysis [id number] 17:48:00 Test Item Value Reference Range Interpretation Comments Color (test code = COLOR) Straw Yellow,Straw,Pl N yellow Clarity (test code = Clear Clear N CLAR) Specific [place] (test 1.032 1.001-1.035 N code = SPGR) pH (test code = PH) 5.0 5.0-9.0 N Ketone (test code = KET) Negative mg/dL Negative N Glucose (test code = 1000 mg/dL Negative A GLUCUR) Protein (test code = Negative mg/dL Negative N PROT) Bilirubin (test code = Negative mg/dL Negative N BILI) Occult Blood (test code = Negative Negative N UDOB) Urobilinogen (test code = 0.2 mg/dL 0.2-1.0 N UROB) Nitrite (test code = NIT) Negative Negative N Leuk Esterase (test code Negative Negative N = LEUK) Micros Exam (test code = Indicated MEXAM) Epithelial Cells (test 0-30 /LPF 0-30 N code = EPI) WBC, Urine (test code = None seen /HPF 0-5 A UWBC) RBC, Urine (test code = None Seen /HPF 0-5 A URBC) Bacteria (test code = None /HPF BACT) [id number] 17:43:00 Test Item Value Reference Range Interpretation Comments Amphetamine (test Negative Negative N For diagno stic code = AMPH) purposes only, positive result s should always b e assessedin conjunctionwith the patient's medic al history,clinica l examination and otherfindings.T o fulfill legal requirements, a more specific altern ate chemical method must be used inorder to obtain a Confirmed kaia lytical result. GC/MS i s the preferred confi rmatory method. Barbiturates (test Negative Negative N code = JOSSELYN) Benzodiazepine (test Negative Negative N code = SUDHIR) Cocaine (test code = Negative Negative N COCA) Methadone (test code Negative Negative N = MTHD) Opiates (test code = Negative Negative N OPIA) PCP (test code = PCP) Negative Negative N Propoxyphene (test Negative Negative N code = PROPOX) THC (test code = THC) POSITIVE Negative A Alcohol, Urine (test <0.01 g/dL 0.00-0.01 N code = ETOHU) Comprehensive Metabolic [id number] 17:38:00 Test Item Value Reference Range Interpretation Comments Sodium (test code = 129 mmol/L 135-145 L NA) Potassium (test 4.3 mmol/L 3.5-5.1 N code = K) Chloride (test code 92 mmol/L 98-105 L = CL) Carbon Dioxide 22 mmol/L 22-29 N (test code = CO2) Glucose (test code 624 mg/dL 70-115 HH = GLU) Blood Urea Nitrogen 11 mg/dL 6-20 N (test code = BUN) Creatinine (test 1.0 mg/dL 0.7-1.2 N code = CREAT) Calcium (test code 9.1 mg/dL 8.3-10.5 N = CA) Prot Total (test 6.4 g/dL 6.4-8.3 N code = TP) Albumin (test code 3.8 g/dL 3.5-5.2 N = ALB) A/G Ratio (test 1.5 Ratio code = AGRATIO) Globulin (test code 2.6 2.9-3.1 L = GLOB) Bili Total (test <0.1 mg/dL 0.1-0.9 L code = TBIL) Alk Phos (test code 162 U/L 40-129 H = APHOS) AST (test code = 11 U/L 1-40 N AST) ALT (test code = 14 U/L 1-41 N ALT) BUN/Creatinine 11.0 Ratio (test code = BCRATIO) Anion Gap (test 15 mmol/L 7-16 N code = AGAP) Estimated GFR (test >60 eGFR (es timated code = GFR) mL/min/1.73m2 Glomerular Sourav tration Rate) is an est imated value,calculate d from the patient's s megan creatinine usin g the MDRD equation.I t is NOT the patient 's actual GFR. The eGFR provides a more clinicallyusefu l measure of kidn ey disease than se rum creatinine alone.This calculation angel es sex and race into account, if the informationis provided. If th e race is not provided , and the patient isAfrican-Ameri can, multiply by 1.2 12. If sex is not prov ided, and thepatient is female, multipl y by 0.742. Results for patients <18 ye ars ofage have not been validated by th e MDRD study and shoul d be interpretedwith caution.eGFR Re sult Interpretation: eGFR > or = 60 is in t he Normal RangeeGF R < 60 may mean kidney diseaseeGFR < 1 5 may mean kidney failureRange s recommended by the National Kidney Foundation,http ://nkd ep.nih.gov CBC with [id number] 17:16:00 Test Item Value Reference Range Interpretation Comments WBC (test code = WBC) 8.5 K/cumm 4.4-10.5 N RBC (test code = RBC) 4.42 M/cumm 4.10-5.70 N Hemoglobin (test code = HGB) 13.2 gm/dL 13.4-17.4 L Hematocrit (test code = HCT) 39.6 % 38.7-52.0 N MCV (test code = MCV) 89.4 fL 80-100 N MCH (test code = MCH) 29.9 pg 27.0-32.5 N MCHC (test code = MCHC) 33.4 g/dL 32.0-37.5 N RDW (test code = RDW) 12.5 % 11.5-14.5 N Platelet Count (test code = 322 K/cumm 140-440 N PLTCT) MPV (test code = MPV) 9.3 fL Diff Method (test code = DIFFM) Auto Neutrophil (test code = NEUT) 66.2 % 36-70 N Lymphocyte (test code = LYMPH) 25.0 % 12-44 N Monocyte (test code = MONO) 6.5 % 0-11 N Eosinophil (test code = EOS) 1.5 % 0-7 N Basophil (test code = BASO) 0.8 % 0-2 N Neutro Abs (test code = ANEUT) 5.6 K/cumm 1.6-7.4 N Lymph Abs (test code = ALYMPH) 2.1 K/cumm 0.5-4.6 N [place] Abs (test code = AMONO) 0.6 K/cumm 0.0-1.2 N Eos Abs (test code = AEOS) 0.13 K/cumm 0.00-0.74 N Baso Abs (test code = ABASO) 0.1 K/cumm 0.00-0.21 N POC Glucose, [id number] 16:08:00 Test Item Value Reference Range Interpretation Comments POC Glucose (test code = 457 mg/dL 70-115 HH Not holden RN or POCGLUC) POC Glucose, [id number] 07:43:00 Test Item Value Reference Range Interpretation Comments POC Glucose (test 239 mg/dL 70-115 H If you con graffiti cleaner your code = POCGLUC) patient crit ically ill, the Ricky Accu- Chek InformII meters hould not be used for Glu cose determinations. Draw a venous Glucose and send to the Main Lab for Analysis. POC Glucose, [id number] 03:18:00 Test Item Value Reference Range Interpretation Comments POC Glucose (test 376 mg/dL 70-115 H If you con graffiti cleaner your code = POCGLUC) patient crit ically ill, the Ricky Accu- Chek InformII meters hould not be used for Glu cose determinations. Draw a venous Glucose and send to the Main Lab for Analysis. POC Glucose, [id number] 03:14:00 Test Item Value Reference Range Interpretation Comments POC Glucose (test code = 402 mg/dL 70-115 HH Not holden RN or POCGLUC) Alcohol/Ethanol, [id number] 02:35:00 Test Item Value Reference Range Interpretation Comments Alcohol, Ethyl <0.01 g/dL 0.00-0.01 N Intoxicated 0.080 (test code = ETOH) g/dL or m ore Urinalysis [id number] 02:19:00 Test Item Value Reference Range Interpretation Comments Color (test code = COLOR) Yellow Yellow,Straw,Pl N yellow Clarity (test code = Clear Clear N CLAR) Specific [place] (test 1.031 1.001-1.035 N code = SPGR) pH (test code = PH) 6.5 5.0-9.0 N Ketone (test code = KET) Negative mg/dL Negative N Glucose (test code = 1000 mg/dL Negative A GLUCUR) Protein (test code = Negative mg/dL Negative N PROT) Bilirubin (test code = Negative mg/dL Negative N BILI) Occult Blood (test code = Negative Negative N UDOB) Urobilinogen (test code = 0.2 mg/dL 0.2-1.0 N UROB) Nitrite (test code = NIT) Negative Negative N Leuk Esterase (test code Negative Negative N = LEUK) Micros Exam (test code = Indicated MEXAM) Epithelial Cells (test Few /LPF 0-30 A code = EPI) WBC, Urine (test code = 0-5 /HPF 0-5 N UWBC) RBC, Urine (test code = 0-3 /HPF 0-5 A URBC) Bacteria (test code = None /HPF BACT) [id number] 02:19:00 Test Item Value Reference Range Interpretation Comments Amphetamine (test Negative Negative N For diagno stic code = AMPH) purposes only, positive result s should always b e assessedin conjunctionwith the patient's medic al history,clinica l examination and otherfindings.T o fulfill legal requirements, a more specific altern ate chemical method must be used inorder to obtain a Confirmed kaia lytical result. GC/MS i s the preferred confi rmatory method. Barbiturates (test Negative Negative N code = JOSSELYN) Benzodiazepine (test Negative Negative N code = SUDHIR) Cocaine (test code = Negative Negative N COCA) Methadone (test code Negative Negative N = MTHD) Opiates (test code = Negative Negative N OPIA) PCP (test code = PCP) Negative Negative N Propoxyphene (test Negative Negative N code = PROPOX) THC (test code = THC) POSITIVE Negative A Alcohol, Urine (test <0.01 g/dL 0.00-0.01 N code = ETOHU) Comprehensive Metabolic [id number] 02:13:00 Test Item Value Reference Range Interpretation Comments Sodium (test code = 134 mmol/L 135-145 L NA) Potassium (test 4.5 mmol/L 3.5-5.1 N code = K) Chloride (test code 94 mmol/L 98-105 L = CL) Carbon Dioxide 25 mmol/L 22-29 N (test code = CO2) Glucose (test code 406 mg/dL 70-115 HH karen rblv = GLU) Blood Urea Nitrogen 19 mg/dL 6-20 N (test code = BUN) Creatinine (test 1.4 mg/dL 0.7-1.2 H code = CREAT) Calcium (test code 9.3 mg/dL 8.3-10.5 N = CA) Prot Total (test 7.4 g/dL 6.4-8.3 N code = TP) Albumin (test code 3.7 g/dL 3.5-5.2 N = ALB) A/G Ratio (test 1.0 Ratio code = AGRATIO) Globulin (test code 3.7 2.9-3.1 H = GLOB) Bili Total (test <0.1 mg/dL 0.1-0.9 L code = TBIL) Alk Phos (test code 108 U/L 40-129 N = APHOS) AST (test code = 16 U/L 1-40 N AST) ALT (test code = 12 U/L 1-41 N ALT) BUN/Creatinine 13.6 Ratio (test code = BCRATIO) Anion Gap (test 15 mmol/L 7-16 N code = AGAP) Estimated GFR (test 59 eGFR (es timated code = GFR) mL/min/1.73m2 Glomerular Sourav tration Rate) is an est imated value,calculate d from the patient's s megan creatinine usin g the MDRD equation.I t is NOT the patient 's actual GFR. The eGFR provides a more clinicallyusefu l measure of kidn ey disease than se rum creatinine alone.This calculation angel es sex and race into account, if the informationis provided. If e race is not provided , and the patient isAfrican-Ameri can, multiply by 1.2 12. If sex is not prov ided, and thepatient is female, multipl y by 0.742. Results for patients <18 ye ars ofage have not been validated by e MDRD study and shoul d be interpretedwith caution.eGFR Re sult Interpretation: eGFR > or = 60 is in t he Normal RangeeGF R < 60 may mean kidney diseaseeGFR < 1 5 may mean kidney failureRange s recommended by the National Kidney Foundation,http ://nkd ep.nih.gov CBC with [id number] 02:06:00 Test Item Value Reference Range Interpretation Comments WBC (test code = WBC) 8.8 K/cumm 4.4-10.5 N RBC (test code = RBC) 4.23 M/cumm 4.10-5.70 N Hemoglobin (test code = HGB) 13.4 gm/dL 13.4-17.4 N Hematocrit (test code = HCT) 39.1 % 38.7-52.0 N MCV (test code = MCV) 92.6 fL 80-100 N MCH (test code = MCH) 31.8 pg 27.0-32.5 N MCHC (test code = MCHC) 34.3 g/dL 32.0-37.5 N RDW (test code = RDW) 12.3 % 11.5-14.5 N Platelet Count (test code = 358 K/cumm 140-440 N PLTCT) MPV (test code = MPV) 7.6 fL Diff Method (test code = DIFFM) Auto Neutrophil (test code = NEUT) 66.5 % 36-70 N Lymphocyte (test code = LYMPH) 23.9 % 12-44 N Monocyte (test code = MONO) 6.9 % 0-11 N Eosinophil (test code = EOS) 1.9 % 0-7 N Basophil (test code = BASO) 0.8 % 0-2 N Neutro Abs (test code = ANEUT) 5.8 K/cumm 1.6-7.4 N Lymph Abs (test code = ALYMPH) 2.1 K/cumm 0.5-4.6 N [place] Abs (test code = AMONO) 0.6 K/cumm 0.0-1.2 N Eos Abs (test code = AEOS) 0.17 K/cumm 0.00-0.74 N Baso Abs (test code = ABASO) 0.1 K/cumm 0.00-0.21 N POC Glucose, [id number] 00:47:00 Test Item Value Reference Range Interpretation Comments POC Glucose (test 341 mg/dL 70-115 H If you con graffiti cleaner your code = POCGLUC) patient crit ically ill, the Ricky Accu- Chek InformII meters hould not be used for Glu cose determinations. Draw a venous Glucose and send to the Main Lab for Analysis. CBC with [id number] 13:38:00 Test Item Value Reference Range Interpretation Comments WBC (test code = WBC) 12.6 K/cumm 4.4-10.5 H RBC (test code = RBC) 4.41 M/cumm 4.10-5.70 N Hemoglobin (test code = HGB) 14.0 gm/dL 13.4-17.4 N Hematocrit (test code = HCT) 40.2 % 38.7-52.0 N MCV (test code = MCV) 91.1 fL 80-100 N MCH (test code = MCH) 31.7 pg 27.0-32.5 N MCHC (test code = MCHC) 34.7 g/dL 32.0-37.5 N RDW (test code = RDW) 12.5 % 11.5-14.5 N Platelet Count (test code = 317 K/cumm 140-440 N PLTCT) MPV (test code = MPV) 10.2 fL Diff Method (test code = DIFFM) Auto Neutrophil (test code = NEUT) 77.2 % 36-70 H Lymphocyte (test code = LYMPH) 16.9 % 12-44 N Monocyte (test code = MONO) 4.3 % 0-11 N Eosinophil (test code = EOS) 1.0 % 0-7 N Basophil (test code = BASO) 0.6 % 0-2 N Neutro Abs (test code = ANEUT) 9.7 K/cumm 1.6-7.4 H Lymph Abs (test code = ALYMPH) 2.1 K/cumm 0.5-4.6 N [place] Abs (test code = AMONO) 0.6 K/cumm 0.0-1.2 N Eos Abs (test code = AEOS) 0.13 K/cumm 0.00-0.74 N Baso Abs (test code = ABASO) 0.1 K/cumm 0.00-0.21 N Comprehensive Metabolic [id number] 13:36:00 Test Item Value Reference Range Interpretation Comments Sodium (test code = 135 mmol/L 135-145 N NA) Potassium (test 4.0 mmol/L 3.5-5.1 N code = K) Chloride (test code 96 mmol/L 98-105 L = CL) Carbon Dioxide 28 mmol/L 22-29 N (test code = CO2) Glucose (test code 359 mg/dL 70-115 H = GLU) Blood Urea Nitrogen 11 mg/dL 6-20 N (test code = BUN) Creatinine (test 1.0 mg/dL 0.7-1.2 N code = CREAT) Calcium (test code 9.3 mg/dL 8.3-10.5 N = CA) Prot Total (test 7.5 g/dL 6.4-8.3 N code = TP) Albumin (test code 3.9 g/dL 3.5-5.2 N = ALB) A/G Ratio (test 1.1 Ratio code = AGRATIO) Globulin (test code 3.6 2.9-3.1 H = GLOB) Bili Total (test 0.3 mg/dL 0.1-0.9 N code = TBIL) Alk Phos (test code 116 U/L 40-129 N = APHOS) AST (test code = 13 U/L 1-40 N AST) ALT (test code = 16 U/L 1-41 N ALT) BUN/Creatinine 11.0 Ratio (test code = BCRATIO) Anion Gap (test 11 mmol/L 7-16 N code = AGAP) Estimated GFR (test >60 eGFR (es timated code = GFR) mL/min/1.73m2 Glomerular Sourav tration Rate) is an est imated value,calculate d from the patient's s megan creatinine usin g the MDRD equation.I t is NOT the patient 's actual GFR. The eGFR provides a more clinicallyusefu l measure of kidn ey disease than se rum creatinine alone.This calculation angel es sex and race into account, if the informationis provided. If th e race is not provided , and the patient isAfrican-Ameri can, multiply by 1.2 12. If sex is not prov ided, and thepatient is female, multipl y by 0.742. Results for patients <18 ye ars ofage have not been validated by th e MDRD study and shoul d be interpretedwith caution.eGFR Re sult Interpretation: eGFR > or = 60 is in t he Normal RangeeGF R < 60 may mean kidney diseaseeGFR < 1 5 may mean kidney failureRange s recommended by the [employer] Foundation,http ://nkd ep.nih.gov XR FOOT [id number] 13:13:25XR ANKLE 2V-RIGHT, XR FOOT 2V-RIGHTLOCATION: [id number]:fallCOMPARISON: None.DISCUSSION:Frontal, oblique, and lateral radiographs of the right ankle and rightfoot were obtained. No fracture, dislocation, lytic or blastic lesions are identified. The joint spaces are preserved.IMPRESSION:No acute osseous abnormalities.XR ANKLE [id number] 13:13:25XR ANKLE 2V-RIGHT, XR FOOT 2V-RIGHTLOCATION: [id number]:fallCOMPARISON: None.DISCUSSION:Frontal, oblique, and lateral radiographs of the right ankle and rightfoot were obtained. No fracture, dislocation, lytic or blastic lesions are identified. The joint spaces are preserved.IMPRESSION:No acute osseous abnormalities.POC Glucose, [id number] 20:04:00 Test Item Value Reference Range Interpretation Comments POC Glucose (test 343 mg/dL 70-115 H If you con graffiti cleaner your code = POCGLUC) patient crit ically ill, the Ricky Accu- Chek InformII meters hould not be used for Glu cose determinations. Draw a venous Glucose and send to the Main Lab for Analysis. POC Glucose, [id number] 23:43:00 Test Item Value Reference Range Interpretation Comments POC Glucose (test 160 mg/dL 70-115 H If you con graffiti cleaner your code = POCGLUC) patient crit ically ill, the Ricky Accu- Chek InformII meters hould not be used for Glu cose determinations. Draw a venous Glucose and send to the Main Lab for Analysis. Alcohol/Ethanol, [id number] 22:56:00 Test Item Value Reference Range Interpretation Comments Alcohol, Ethyl <0.01 g/dL 0.00-0.01 N Intoxicated 0.080 (test code = ETOH) g/dL or m ore Comprehensive Metabolic [id number] 22:56:00 Test Item Value Reference Range Interpretation Comments Sodium (test code = 133 mmol/L 135-145 L NA) Potassium (test 3.9 mmol/L 3.5-5.1 N code = K) Chloride (test code 93 mmol/L 98-105 L = CL) Carbon Dioxide 28 mmol/L 22-29 N (test code = CO2) Glucose (test code 435 mg/dL 70-115 HH VERIFIED BY REPEAT = GLU) TESTINGREAD DARSHAN K LAB VALUESD AUREA ZELAYA 22:55 7./OG Blood Urea Nitrogen 17 mg/dL 6-20 N (test code = BUN) Creatinine (test 0.9 mg/dL 0.7-1.2 N code = CREAT) Calcium (test code 9.3 mg/dL 8.3-10.5 N = CA) Prot Total (test 6.8 g/dL 6.4-8.3 N code = TP) Albumin (test code 4.2 g/dL 3.5-5.2 N = ALB) A/G Ratio (test 1.6 Ratio code = AGRATIO) Globulin (test code 2.6 2.9-3.1 L = GLOB) Bili Total (test <0.1 mg/dL 0.1-0.9 L code = TBIL) Alk Phos (test code 146 U/L 40-129 H = APHOS) AST (test code = 18 U/L 1-40 N AST) ALT (test code = 20 U/L 1-41 N ALT) BUN/Creatinine 18.9 Ratio (test code = BCRATIO) Anion Gap (test 12 mmol/L 7-16 N code = AGAP) Estimated GFR (test >60 eGFR (es timated code = GFR) mL/min/1.73m2 Glomerular Sourav tration Rate) is an est imated value,calculate d from the patient's s megan creatinine usin g the MDRD equation.I t is NOT the patient 's actual GFR. The eGFR provides a more clinicallyusefu l measure of kidn ey disease than se rum creatinine alone.This calculation angel es sex and race into account, if the informationis provided. If th e race is not provided , and the patient isAfrican-Ameri can, multiply by 1.2 12. If sex is not prov ided, and thepatient is female, multipl y by 0.742. Results for patients <18 ye ars ofage have not been validated by th e MDRD study and shoul d be interpretedwith caution.eGFR Re sult Interpretation: eGFR > or = 60 is in t he Normal RangeeGF R < 60 may mean kidney diseaseeGFR < 1 5 may mean kidney failureRange s recommended by the National Kidney Foundation,http ://nkd ep.nih.gov [id number] 22:50:00 Test Item Value Reference Range Interpretation Comments Amphetamine (test Negative Negative N For diagno stic code = AMPH) purposes only, positive result s should always b e assessedin conjunctionwith the patient's medic al history,clinica l examination and otherfindings.T o fulfill legal requirements, a more specific altern ate chemical method must be used inorder to obtain a Confirmed kaia lytical result. GC/MS i s the preferred confi rmatory method. Barbiturates (test Negative Negative N code = JOSSELYN) Benzodiazepine (test Negative Negative N code = SUDHIR) Cocaine (test code = Negative Negative N COCA) Methadone (test code Negative Negative N = MTHD) Opiates (test code = Negative Negative N OPIA) PCP (test code = PCP) Negative Negative N Propoxyphene (test Negative Negative N code = PROPOX) THC (test code = THC) POSITIVE Negative A Alcohol, Urine (test <0.01 g/dL 0.00-0.01 N code = ETOHU) Urinalysis [id number] 22:38:00 Test Item Value Reference Range Interpretation Comments Color (test code = COLOR) Yellow Yellow,Straw,Pl N yellow Clarity (test code = Clear Clear N CLAR) Specific [place] (test 1.029 1.001-1.035 N code = SPGR) pH (test code = PH) 7.0 5.0-9.0 N Ketone (test code = KET) Negative mg/dL Negative N Glucose (test code = 1000 mg/dL Negative A GLUCUR) Protein (test code = Negative mg/dL Negative N PROT) Bilirubin (test code = Negative mg/dL Negative N BILI) Occult Blood (test code = Negative Negative N UDOB) Urobilinogen (test code = 0.2 mg/dL 0.2-1.0 N UROB) Nitrite (test code = NIT) Negative Negative N Leuk Esterase (test code Negative Negative N = LEUK) Micros Exam (test code = Indicated MEXAM) Epithelial Cells (test None /LPF 0-30 A code = EPI) WBC, Urine (test code = None seen /HPF 0-5 A UWBC) RBC, Urine (test code = None Seen /HPF 0-5 A URBC) Bacteria (test code = None /HPF BACT) CBC with [id number] 22:30:00 Test Item Value Reference Range Interpretation Comments WBC (test code = WBC) 10.5 K/cumm 4.4-10.5 N RBC (test code = RBC) 4.51 M/cumm 4.10-5.70 N Hemoglobin (test code = HGB) 14.3 gm/dL 13.4-17.4 N Hematocrit (test code = HCT) 42.5 % 38.7-52.0 N MCV (test code = MCV) 94.1 fL 80-100 N MCH (test code = MCH) 31.6 pg 27.0-32.5 N MCHC (test code = MCHC) 33.6 g/dL 32.0-37.5 N RDW (test code = RDW) 12.4 % 11.5-14.5 N Platelet Count (test code = 344 K/cumm 140-440 N PLTCT) MPV (test code = MPV) 7.4 fL Diff Method (test code = DIFFM) Auto Neutrophil (test code = NEUT) 70.8 % 36-70 H Lymphocyte (test code = LYMPH) 21.0 % 12-44 N Monocyte (test code = MONO) 5.3 % 0-11 N Eosinophil (test code = EOS) 2.2 % 0-7 N Basophil (test code = BASO) 0.6 % 0-2 N Neutro Abs (test code = ANEUT) 7.4 K/cumm 1.6-7.4 N Lymph Abs (test code = ALYMPH) 2.2 K/cumm 0.5-4.6 N [place] Abs (test code = AMONO) 0.6 K/cumm 0.0-1.2 N Eos Abs (test code = AEOS) 0.23 K/cumm 0.00-0.74 N Baso Abs (test code = ABASO) 0.1 K/cumm 0.00-0.21 N POC Glucose, [id number] 22:08:00 Test Item Value Reference Range Interpretation Comments POC Glucose (test code = POCGLUC) 431 mg/dL 70-115 HH Comprehensive Metabolic [id number] 23:34:00 Test Item Value Reference Range Interpretation Comments Sodium (test code = 134 mmol/L 135-145 L NA) Potassium (test 3.8 mmol/L 3.5-5.1 N code = K) Chloride (test code 95 mmol/L 98-105 L = CL) Carbon Dioxide 24 mmol/L 22-29 N (test code = CO2) Glucose (test code 195 mg/dL 70-115 H = GLU) Blood Urea Nitrogen 9 mg/dL 6-20 N (test code = BUN) Creatinine (test 0.7 mg/dL 0.7-1.2 N code = CREAT) Calcium (test code 9.6 mg/dL 8.3-10.5 N = CA) Prot Total (test 7.4 g/dL 6.4-8.3 N code = TP) Albumin (test code 4.3 g/dL 3.5-5.2 N = ALB) A/G Ratio (test 1.4 Ratio code = AGRATIO) Globulin (test code 3.1 2.9-3.1 N = GLOB) Bili Total (test <0.1 mg/dL 0.1-0.9 L code = TBIL) Alk Phos (test code 113 U/L 40-129 N = APHOS) AST (test code = 19 U/L 1-40 N AST) ALT (test code = 22 U/L 1-41 N ALT) BUN/Creatinine 12.9 Ratio (test code = BCRATIO) Anion Gap (test 15 mmol/L 7-16 N code = AGAP) Estimated GFR (test >60 eGFR (es timated code = GFR) mL/min/1.73m2 Glomerular Sourav tration Rate) is an est imated value,calculate d from the patient's s megan creatinine usin g the MDRD equation.I t is NOT the patient 's actual GFR. The eGFR provides a more clinicallyusefu l measure of kidn ey disease than se rum creatinine alone.This calculation angel es sex and race into account, if the informationis provided. If th e race is not provided , and the patient isAfrican-Ameri can, multiply by 1.2 12. If sex is not prov ided, and thepatient is female, multipl y by 0.742. Results for patients <18 ye ars ofage have not been validated by th e MDRD study and shoul d be interpretedwith caution.eGFR Re sult Interpretation: eGFR > or = 60 is in t he Normal RangeeGF R < 60 may mean kidney diseaseeGFR < 1 5 may mean kidney failureRange s recommended by the National Kidney Foundation,http ://nkd ep.nih.gov [id number] 23:33:00 Test Item Value Reference Range Interpretation Comments Amphetamine (test code Negative Negative N For d iagnostic = AMPH) purposes only, positive result s should always b e assessedin conjunctionwith the patient's medic al history,clinica l examination and otherfindings.T o fulfill legal requirements, a more specific altern ate chemical method must be used inorder to obtain a Confirmed kaia lytical result. GC/MS i s the preferred confi rmatory method. Barbiturates (test Negative Negative N code = JOSSELYN) Benzodiazepine (test Negative Negative N code = SUDHIR) Cocaine (test code = POSITIVE Negative A COCA) Methadone (test code = Negative Negative N MTHD) Opiates (test code = Negative Negative N OPIA) PCP (test code = PCP) Negative Negative N Propoxyphene (test Negative Negative N code = PROPOX) THC (test code = THC) POSITIVE Negative A Alcohol, Urine (test 0.05 g/dL 0.00-0.01 H code = ETOHU) Urinalysis [id number] 23:26:00 Test Item Value Reference Range Interpretation Comments Color (test code = COLOR) Yellow Yellow,Straw,Pl N yellow Clarity (test code = Clear Clear N CLAR) Specific [place] (test 1.014 1.001-1.035 N code = SPGR) pH (test code = PH) 5.0 5.0-9.0 N Ketone (test code = KET) 5 mg/dL Negative A Glucose (test code = 300 mg/dL Negative A GLUCUR) Protein (test code = Negative mg/dL Negative N PROT) Bilirubin (test code = Negative mg/dL Negative N BILI) Occult Blood (test code = Negative Negative N UDOB) Urobilinogen (test code = 0.2 mg/dL 0.2-1.0 N UROB) Nitrite (test code = NIT) Negative Negative N Leuk Esterase (test code Negative Negative N = LEUK) Micros Exam (test code = Indicated MEXAM) Epithelial Cells (test None /LPF 0-30 A code = EPI) WBC, Urine (test code = None seen /HPF 0-5 A UWBC) RBC, Urine (test code = None Seen /HPF 0-5 A URBC) Bacteria (test code = None /HPF BACT) CBC with [id number] 23:16:00 Test Item Value Reference Range Interpretation Comments WBC (test code = WBC) 12.4 K/cumm 4.4-10.5 H RBC (test code = RBC) 4.97 M/cumm 4.10-5.70 N Hemoglobin (test code = HGB) 15.8 gm/dL 13.4-17.4 N Hematocrit (test code = HCT) 44.2 % 38.7-52.0 N MCV (test code = MCV) 89.0 fL 80-100 N MCH (test code = MCH) 31.8 pg 27.0-32.5 N MCHC (test code = MCHC) 35.7 g/dL 32.0-37.5 N RDW (test code = RDW) 12.6 % 11.5-14.5 N Platelet Count (test code = 359 K/cumm 140-440 N PLTCT) MPV (test code = MPV) 9.6 fL Diff Method (test code = DIFFM) Auto Neutrophil (test code = NEUT) 65.1 % 36-70 N Lymphocyte (test code = LYMPH) 28.7 % 12-44 N Monocyte (test code = MONO) 4.3 % 0-11 N Eosinophil (test code = EOS) 1.2 % 0-7 N Basophil (test code = BASO) 0.7 % 0-2 N Neutro Abs (test code = ANEUT) 8.1 K/cumm 1.6-7.4 H Lymph Abs (test code = ALYMPH) 3.6 K/cumm 0.5-4.6 N [place] Abs (test code = AMONO) 0.5 K/cumm 0.0-1.2 N Eos Abs (test code = AEOS) 0.15 K/cumm 0.00-0.74 N Baso Abs (test code = ABASO) 0.1 K/cumm 0.00-0.21 N POC Glucose, [id number] 12:49:00 Test Item Value Reference Range Interpretation Comments POC Glucose (test 314 mg/dL 70-115 H If you con graffiti cleaner your code = POCGLUC) patient crit ically ill, the Ricky Accu- Chek InformII meters hould not be used for Glu cose determinations. Draw a venous Glucose and send to the Main Lab for Analysis. Comprehensive Metabolic [id number] 10:37:00 Test Item Value Reference Range Interpretation Comments Sodium (test code = 134 mmol/L 135-145 L NA) Potassium (test 4.0 mmol/L 3.5-5.1 N code = K) Chloride (test code 98 mmol/L 98-105 N = CL) Carbon Dioxide 22 mmol/L 22-29 N (test code = CO2) Glucose (test code 318 mg/dL 70-115 H = GLU) Blood Urea Nitrogen 14 mg/dL 6-20 N (test code = BUN) Creatinine (test 0.8 mg/dL 0.7-1.2 N code = CREAT) Calcium (test code 9.4 mg/dL 8.3-10.5 N = CA) Prot Total (test 6.5 g/dL 6.4-8.3 N code = TP) Albumin (test code 4.0 g/dL 3.5-5.2 N = ALB) A/G Ratio (test 1.6 Ratio code = AGRATIO) Globulin (test code 2.5 2.9-3.1 L = GLOB) Bili Total (test 0.2 mg/dL 0.1-0.9 N code = TBIL) Alk Phos (test code 104 U/L 40-129 N = APHOS) AST (test code = 20 U/L 1-40 N AST) ALT (test code = 25 U/L 1-41 N ALT) BUN/Creatinine 17.5 Ratio (test code = BCRATIO) Anion Gap (test 14 mmol/L 7-16 N code = AGAP) Estimated GFR (test >60 eGFR (es timated code = GFR) mL/min/1.73m2 Glomerular Sourav tration Rate) is an est imated value,calculate d from the patient's s megan creatinine usin g the MDRD equation.I t is NOT the patient 's actual GFR. The eGFR provides a more clinicallyusefu l measure of kidn ey disease than se rum creatinine alone.This calculation angel es sex and race into account, if the informationis provided. If th e race is not provided , and the patient isAfrican-Ameri can, multiply by 1.2 12. If sex is not prov ided, and thepatient is female, multipl y by 0.742. Results for patients <18 ye ars ofage have not been validated by th e MDRD study and shoul d be interpretedwith caution.eGFR Re sult Interpretation: eGFR > or = 60 is in t he Normal RangeeGF R < 60 may mean kidney diseaseeGFR < 1 5 may mean kidney failureRange s recommended by the National Kidney Foundation,http ://nkd ep.nih.gov Urinalysis [id number] 10:35:00 Test Item Value Reference Range Interpretation Comments Color (test code = COLOR) Yellow Yellow,Straw,Pl N yellow Clarity (test code = Clear Clear N CLAR) Specific [place] (test 1.036 1.001-1.035 H code = SPGR) pH (test code = PH) 5.0 5.0-9.0 N Ketone (test code = KET) Negative mg/dL Negative N Glucose (test code = 1000 mg/dL Negative A GLUCUR) Protein (test code = Negative mg/dL Negative N PROT) Bilirubin (test code = Negative mg/dL Negative N BILI) Occult Blood (test code = Negative Negative N UDOB) Urobilinogen (test code = 0.2 mg/dL 0.2-1.0 N UROB) Nitrite (test code = NIT) Negative Negative N Leuk Esterase (test code Negative Negative N = LEUK) Micros Exam (test code = Indicated MEXAM) Epithelial Cells (test 0-2 /LPF 0-30 A code = EPI) WBC, Urine (test code = 0-5 /HPF 0-5 N UWBC) RBC, Urine (test code = 0-3 /HPF 0-5 A URBC) Bacteria (test code = None /HPF BACT) [id number] 10:31:00 Test Item Value Reference Range Interpretation Comments Amphetamine (test Negative Negative N For diagno stic code = AMPH) purposes only, positive result s should always b e assessedin conjunctionwith the patient's medic al history,clinica l examination and otherfindings.T o fulfill legal requirements, a more specific altern ate chemical method must be used inorder to obtain a Confirmed kaia lytical result. GC/MS i s the preferred confi rmatory method. Barbiturates (test Negative Negative N code = JOSSELYN) Benzodiazepine (test Negative Negative N code = SUDHIR) Cocaine (test code = POSITIVE Negative A COCA) Methadone (test code Negative Negative N = MTHD) Opiates (test code = Negative Negative N OPIA) PCP (test code = PCP) Negative Negative N Propoxyphene (test Negative Negative N code = PROPOX) THC (test code = THC) Negative Negative N Alcohol, Urine (test <0.01 g/dL 0.00-0.01 N code = ETOHU) CBC with [id number] 10:30:00 Test Item Value Reference Range Interpretation Comments WBC (test code = WBC) 9.7 K/cumm 4.4-10.5 N RBC (test code = RBC) 4.61 M/cumm 4.10-5.70 N Hemoglobin (test code = HGB) 14.4 gm/dL 13.4-17.4 N Hematocrit (test code = HCT) 42.6 % 38.7-52.0 N MCV (test code = MCV) 92.6 fL 80-100 N MCH (test code = MCH) 31.2 pg 27.0-32.5 N MCHC (test code = MCHC) 33.7 g/dL 32.0-37.5 N RDW (test code = RDW) 12.4 % 11.5-14.5 N Platelet Count (test code = 312 K/cumm 140-440 N PLTCT) MPV (test code = MPV) 6.9 fL Diff Method (test code = DIFFM) Auto Neutrophil (test code = NEUT) 70.8 % 36-70 H Lymphocyte (test code = LYMPH) 23.2 % 12-44 N Monocyte (test code = MONO) 4.6 % 0-11 N Eosinophil (test code = EOS) 0.8 % 0-7 N Basophil (test code = BASO) 0.5 % 0-2 N Neutro Abs (test code = ANEUT) 6.8 K/cumm 1.6-7.4 N Lymph Abs (test code = ALYMPH) 2.3 K/cumm 0.5-4.6 N [place] Abs (test code = AMONO) 0.4 K/cumm 0.0-1.2 N Eos Abs (test code = AEOS) 0.08 K/cumm 0.00-0.74 N Baso Abs (test code = ABASO) 0.1 K/cumm 0.00-0.21 N Glycosylated [id number] 12:49:00 Test Item Value Reference Range Interpretation Comments HBA1c (test code = HBA1C) 11.8 % 4.8-5.9 H RPR, [id number] 12:31:00 Test Item Value Reference Range Interpretation Comments RPR (test code = RPR) Non-Reactive Non-Reactive N Thyroid Stimulating Hormone (TSH)[id number] 09:41:00 Test Item Value Reference Range Interpretation Comments TSH (test code = TSH) 1.85 mIU/mL 0.270-4.200 N Lipid [id number] 09:36:00 Test Item Value Reference Range Interpretation Comments Cholesterol (test 170 mg/dL 0-200 N code = CHOL) Triglycerides (test 107 mg/dL 9-200 N code = TRIG) HDL (test code = 40 mg/dL 40-60 N HDL) Chol/HDL (test code 4.3 Ratio 0.0-5.0 N = CHOLPHDL) LDL, Calculated 109 0-130 N (NOTE)RISK O F HEART (test code = LDLC) DISEASEPu blished by [place] Heart AssociationAnal yte Optim al Boderline Increased RiskC HOL <200 200-239 >240TRI G <150 150-199 >200HDL Male: >60 <40HDL Female: >60 <50 LDL < 100 130-15 9 >160 LDL NEAR OPTIMAL IS 100- 129 VLDL (test code = 21 mg/dL 5-40 N VLDL) LDL/HDL (test code = 3 LDLPHDL) POC Glucose, [id number] 06:04:00 Test Item Value Reference Range Interpretation Comments POC Glucose (test 256 mg/dL 70-115 H If you con graffiti cleaner your code = POCGLUC) patient crit ically ill, the Ricky Accu- Chek InformII meters hould not be used for Glu cose determinations. Draw a venous Glucose and send to the Main Lab for Analysis. POC Glucose, [id number] 22:06:00 Test Item Value Reference Range Interpretation Comments POC Glucose (test 226 mg/dL 70-115 H If you con graffiti cleaner your code = POCGLUC) patient crit ically ill, the Ricky Accu- Chek InformII meters hould not be used for Glu cose determinations. Draw a venous Glucose and send to the Main Lab for Analysis. POC Glucose, [id number] 18:18:00 Test Item Value Reference Range Interpretation Comments POC Glucose (test 192 mg/dL 70-115 H If you con graffiti cleaner your code = POCGLUC) patient crit ically ill, the Ricky Accu- Chek InformII meters hould not be used for Glu cose determinations. Draw a venous Glucose and send to the Main Lab for Analysis. POC Glucose, [id number] 14:44:00 Test Item Value Reference Range Interpretation Comments POC Glucose (test 263 mg/dL 70-115 H If you con graffiti cleaner your code = POCGLUC) patient crit ically ill, the Ricky Accu- Chek InformII meters hould not be used for Glu cose determinations. Draw a venous Glucose and send to the Main Lab for Analysis. POC Glucose, [id number] 12:01:00 Test Item Value Reference Range Interpretation Comments POC Glucose (test 277 mg/dL 70-115 H If you con graffiti cleaner your code = POCGLUC) patient crit ically ill, the Ricky Accu- Chek InformII meters hould not be used for Glu cose determinations. Draw a venous Glucose and send to the Main Lab for Analysis. Comprehensive Metabolic [id number] 12:00:00 Test Item Value Reference Range Interpretation Comments Sodium (test code = 138 mmol/L 135-145 N NA) Potassium (test 3.6 mmol/L 3.5-5.1 N code = K) Chloride (test code 97 mmol/L 98-105 L = CL) Carbon Dioxide 32 mmol/L 22-29 H (test code = CO2) Glucose (test code 265 mg/dL 70-115 H = GLU) Blood Urea Nitrogen 21 mg/dL 6-20 H (test code = BUN) Creatinine (test 0.9 mg/dL 0.7-1.2 N code = CREAT) Calcium (test code 9.8 mg/dL 8.3-10.5 N = CA) Prot Total (test 7.2 g/dL 6.4-8.3 N code = TP) Albumin (test code 4.4 g/dL 3.5-5.2 N = ALB) A/G Ratio (test 1.6 Ratio code = AGRATIO) Globulin (test code 2.8 2.9-3.1 L = GLOB) Bili Total (test 0.2 mg/dL 0.1-0.9 N code = TBIL) Alk Phos (test code 127 U/L 40-129 N = APHOS) AST (test code = 18 U/L 1-40 N AST) ALT (test code = 27 U/L 1-41 N ALT) BUN/Creatinine 23.3 Ratio (test code = BCRATIO) Anion Gap (test 9 mmol/L 7-16 N code = AGAP) Estimated GFR (test >60 eGFR (es timated code = GFR) mL/min/1.73m2 Glomerular Sourav tration Rate) is an est imated value,calculate d from the patient's s megan creatinine usin g the MDRD equation.I t is NOT the patient 's actual GFR. The eGFR provides a more clinicallyusefu l measure of kidn ey disease than se rum creatinine alone.This calculation angel es sex and race into account, if the informationis provided. If th e race is not provided , and the patient isAfrican-Ameri can, multiply by 1.2 12. If sex is not prov ided, and thepatient is female, multipl y by 0.742. Results for patients <18 ye ars ofage have not been validated by th e MDRD study and shoul d be interpretedwith caution.eGFR Re sult Interpretation: eGFR > or = 60 is in t he Normal RangeeGF R < 60 may mean kidney diseaseeGFR < 1 5 may mean kidney failureRange s recommended by the National Kidney Foundation,http ://nkd ep.nih.gov Alcohol/Ethanol, [id number] 12:00:00 Test Item Value Reference Range Interpretation Comments Alcohol, Ethyl <0.01 g/dL 0.00-0.01 N Intoxicated 0.080 (test code = ETOH) g/dL or m ore Urinalysis [id number] 11:55:00 Test Item Value Reference Range Interpretation Comments Color (test code = COLOR) Yellow Yellow,Straw,Pl N yellow Clarity (test code = Clear Clear N CLAR) Specific [place] (test 1.035 1.001-1.035 N code = SPGR) pH (test code = PH) 6.5 5.0-9.0 N Ketone (test code = KET) 5 mg/dL Negative A Glucose (test code = 100 mg/dL Negative A GLUCUR) Protein (test code = Negative mg/dL Negative N PROT) Bilirubin (test code = Negative mg/dL Negative N BILI) Occult Blood (test code = Negative Negative N UDOB) Urobilinogen (test code = 1.0 mg/dL 0.2-1.0 N UROB) Nitrite (test code = NIT) Negative Negative N Leuk Esterase (test code Negative Negative N = LEUK) Micros Exam (test code = Indicated MEXAM) Epithelial Cells (test 3-5 /LPF 0-30 A code = EPI) WBC, Urine (test code = 0-5 /HPF 0-5 N UWBC) RBC, Urine (test code = 0-3 /HPF 0-5 A URBC) Bacteria (test code = Few /HPF BACT) [id number] 11:53:00 Test Item Value Reference Range Interpretation Comments Amphetamine (test code Negative Negative N For d iagnostic purposes = AMPH) only, positive results should always b e assessedin conjunctionwith the patient's medic al history,clinica l examination and otherfindings.T o fulfill legal requirements, a more specific altern ate chemical method must be used inorder to obtain a Confirmed kaia lytical result. GC/MS i s the preferred confi rmatory method. Barbiturates (test Negative Negative N code = JOSSELYN) Benzodiazepine (test Negative Negative N code = SUDHIR) Cocaine (test code = POSITIVE Negative A COCA) Methadone (test code = Negative Negative N MTHD) Opiates (test code = Negative Negative N OPIA) PCP (test code = PCP) Negative Negative N Propoxyphene (test Negative Negative N code = PROPOX) THC (test code = THC) Negative Negative N CBC with [id number] 11:33:00 Test Item Value Reference Range Interpretation Comments WBC (test code = WBC) 14.6 K/cumm 4.4-10.5 H RBC (test code = RBC) 4.90 M/cumm 4.10-5.70 N Hemoglobin (test code = HGB) 15.6 gm/dL 13.4-17.4 N Hematocrit (test code = HCT) 45.5 % 38.7-52.0 N MCV (test code = MCV) 92.8 fL 80-100 N MCH (test code = MCH) 31.9 pg 27.0-32.5 N MCHC (test code = MCHC) 34.4 g/dL 32.0-37.5 N RDW (test code = RDW) 12.3 % 11.5-14.5 N Platelet Count (test code = 312 K/cumm 140-440 N PLTCT) MPV (test code = MPV) 7.3 fL Diff Method (test code = DIFFM) Auto Neutrophil (test code = NEUT) 79.7 % 36-70 H Lymphocyte (test code = LYMPH) 12.6 % 12-44 N Monocyte (test code = MONO) 6.9 % 0-11 N Eosinophil (test code = EOS) 0.5 % 0-7 N Basophil (test code = BASO) 0.3 % 0-2 N Neutro Abs (test code = ANEUT) 11.7 K/cumm 1.6-7.4 H Lymph Abs (test code = ALYMPH) 1.9 K/cumm 0.5-4.6 N [place] Abs (test code = AMONO) 1.0 K/cumm 0.0-1.2 N Eos Abs (test code = AEOS) 0.08 K/cumm 0.00-0.74 N Baso Abs (test code = ABASO) 0.0 K/cumm 0.00-0.21 N Alcohol/Ethanol, [id number] 22:23:00 Test Item Value Reference Range Interpretation Comments Alcohol, Ethyl <0.01 g/dL 0.00-0.01 N Intoxicated 0.080 (test code = ETOH) g/dL or m ore Comprehensive Metabolic [id number] 22:23:00 Test Item Value Reference Range Interpretation Comments Sodium (test code = 134 mmol/L 135-145 L NA) Potassium (test 3.9 mmol/L 3.5-5.1 N code = K) Chloride (test code 95 mmol/L 98-105 L = CL) Carbon Dioxide 27 mmol/L 22-29 N (test code = CO2) Glucose (test code 354 mg/dL 70-115 H = GLU) Blood Urea Nitrogen 18 mg/dL 6-20 N (test code = BUN) Creatinine (test 0.9 mg/dL 0.7-1.2 N code = CREAT) Calcium (test code 9.0 mg/dL 8.3-10.5 N = CA) Prot Total (test 6.0 g/dL 6.4-8.3 L code = TP) Albumin (test code 3.9 g/dL 3.5-5.2 N = ALB) A/G Ratio (test 1.9 Ratio code = AGRATIO) Globulin (test code 2.1 2.9-3.1 L = GLOB) Bili Total (test 0.3 mg/dL 0.1-0.9 N code = TBIL) Alk Phos (test code 89 U/L 40-129 N = APHOS) AST (test code = 15 U/L 1-40 N AST) ALT (test code = 21 U/L 1-41 N ALT) BUN/Creatinine 20.0 Ratio (test code = BCRATIO) Anion Gap (test 12 mmol/L 7-16 N code = AGAP) Estimated GFR (test >60 eGFR (es timated code = GFR) mL/min/1.73m2 Glomerular Sourav tration Rate) is an est imated value,calculate d from the patient's s megan creatinine usin g the MDRD equation.I t is NOT the patient 's actual GFR. The eGFR provides a more clinicallyusefu l measure of kidn ey disease than se rum creatinine alone.This calculation angel es sex and race into account, if the informationis provided. If th e race is not provided , and the patient isAfrican-Ameri can, multiply by 1.2 12. If sex is not prov ided, and thepatient is female, multipl y by 0.742. Results for patients <18 ye ars ofage have not been validated by th e MDRD study and shoul d be interpretedwith caution.eGFR Re sult Interpretation: eGFR > or = 60 is in t he Normal RangeeGF R < 60 may mean kidney diseaseeGFR < 1 5 may mean kidney failureRange s recommended by the National Kidney Foundation,http ://nkd ep.nih.gov [id number] 22:23:00 Test Item Value Reference Range Interpretation Comments Amphetamine (test code Negative Negative N For d iagnostic purposes = AMPH) only, positive results should always b e assessedin conjunctionwith the patient's medic al history,clinica l examination and otherfindings.T o fulfill legal requirements, a more specific altern ate chemical method must be used inorder to obtain a Confirmed kaia lytical result. GC/MS i s the preferred confi rmatory method. Barbiturates (test Negative Negative N code = JOSSELYN) Benzodiazepine (test Negative Negative N code = SUDHIR) Cocaine (test code = Negative Negative N COCA) Methadone (test code = Negative Negative N MTHD) Opiates (test code = Negative Negative N OPIA) PCP (test code = PCP) Negative Negative N Propoxyphene (test Negative Negative N code = PROPOX) THC (test code = THC) Negative Negative N Urinalysis [id number] 22:13:00 Test Item Value Reference Range Interpretation Comments Color (test code = COLOR) Yellow Yellow,Straw,Pl N yellow Clarity (test code = Clear Clear N CLAR) Specific [place] (test 1.029 1.001-1.035 N code = SPGR) pH (test code = PH) 5.0 5.0-9.0 N Ketone (test code = KET) Negative mg/dL Negative N Glucose (test code = 1000 mg/dL Negative A GLUCUR) Protein (test code = Negative mg/dL Negative N PROT) Bilirubin (test code = Negative mg/dL Negative N BILI) Occult Blood (test code = Negative Negative N UDOB) Urobilinogen (test code = 0.2 mg/dL 0.2-1.0 N UROB) Nitrite (test code = NIT) Negative Negative N Leuk Esterase (test code Negative Negative N = LEUK) Micros Exam (test code = Indicated MEXAM) Epithelial Cells (test None /LPF 0-30 A code = EPI) WBC, Urine (test code = None seen /HPF 0-5 A UWBC) RBC, Urine (test code = None Seen /HPF 0-5 A URBC) Bacteria (test code = None /HPF BACT) CBC with [id number] 22:00:00 Test Item Value Reference Range Interpretation Comments WBC (test code = WBC) 10.0 K/cumm 4.4-10.5 N RBC (test code = RBC) 4.47 M/cumm 4.10-5.70 N Hemoglobin (test code = HGB) 14.2 gm/dL 13.4-17.4 N Hematocrit (test code = HCT) 41.4 % 38.7-52.0 N MCV (test code = MCV) 92.6 fL 80-100 N MCH (test code = MCH) 31.6 pg 27.0-32.5 N MCHC (test code = MCHC) 34.2 g/dL 32.0-37.5 N RDW (test code = RDW) 12.5 % 11.5-14.5 N Platelet Count (test code = 254 K/cumm 140-440 N PLTCT) MPV (test code = MPV) 7.6 fL Diff Method (test code = DIFFM) Auto Neutrophil (test code = NEUT) 88.0 % 36-70 H Lymphocyte (test code = LYMPH) 8.4 % 12-44 L Monocyte (test code = MONO) 3.2 % 0-11 N Eosinophil (test code = EOS) 0.2 % 0-7 N Basophil (test code = BASO) 0.1 % 0-2 N Neutro Abs (test code = ANEUT) 8.8 K/cumm 1.6-7.4 H Lymph Abs (test code = ALYMPH) 0.9 K/cumm 0.5-4.6 N [place] Abs (test code = AMONO) 0.3 K/cumm 0.0-1.2 N Eos Abs (test code = AEOS) 0.02 K/cumm 0.00-0.74 N Baso Abs (test code = ABASO) 0.0 K/cumm 0.00-0.21 N POC Glucose, [id number] 05:15:00 Test Item Value Reference Range Interpretation Comments POC Glucose (test 270 mg/dL 70-115 H Notify RN or MDIf you code = POCGLUC) consider you r patient critically ill, the Ricky Accu-Chek InformII metershould not be used for Glucose determinations. Draw a venous Glucose and send to the Main Lab for Analysis. POC Glucose, [id number] 19:44:00 Test Item Value Reference Range Interpretation Comments POC Glucose (test 338 mg/dL 70-115 H Notify RN or MDIf you code = POCGLUC) consider you r patient critically ill, the Ricky Accu-Chek InformII metershould not be used for Glucose determinations. Draw a venous Glucose and send to the Main Lab for Analysis. POC Glucose, [id number] 15:20:00 Test Item Value Reference Range Interpretation Comments POC Glucose (test 338 mg/dL 70-115 H Notify RN or MDIf you code = POCGLUC) consider you r patient critically ill, the Ricky Accu-Chek InformII metershould not be used for Glucose determinations. Draw a venous Glucose and send to the Main Lab for Analysis. POC Glucose, [id number] 13:31:00 Test Item Value Reference Range Interpretation Comments POC Glucose (test code = 443 mg/dL 70-115 HH Not holden RN or MD POCGLUC) POC Glucose, [id number] 10:39:00 Test Item Value Reference Range Interpretation Comments POC Glucose (test code = 560 mg/dL 70-115 HH Not holden RN or MD POCGLUC) Thyroid Stimulating Hormone (TSH)2017-02-14 08:52:00 Test Item Value Reference Range Interpretation Comments TSH (test code = TSH) 1.40 mIU/mL 0.270-4.200 N Comprehensive Metabolic [id number] 08:31:00 Test Item Value Reference Range Interpretation Comments Sodium (test code = 135 mmol/L 135-145 N NA) Potassium (test 4.3 mmol/L 3.5-5.1 N code = K) Chloride (test code 95 mmol/L 98-105 L = CL) Carbon Dioxide 28 mmol/L 22-29 N (test code = CO2) Glucose (test code 286 mg/dL 70-115 H = GLU) Blood Urea Nitrogen 14 mg/dL 6-20 N (test code = BUN) Creatinine (test 0.7 mg/dL 0.7-1.2 N code = CREAT) Calcium (test code 9.6 mg/dL 8.3-10.5 N = CA) Prot Total (test 6.8 g/dL 6.4-8.3 N code = TP) Albumin (test code 4.1 g/dL 3.5-5.2 N = ALB) A/G Ratio (test 1.5 Ratio code = AGRATIO) Globulin (test code 2.7 2.9-3.1 L = GLOB) Bili Total (test 0.2 mg/dL 0.1-0.9 N code = TBIL) Alk Phos (test code 103 U/L 40-129 N = APHOS) AST (test code = 14 U/L 1-40 N AST) ALT (test code = 22 U/L 1-41 N ALT) BUN/Creatinine 20.0 Ratio (test code = BCRATIO) Anion Gap (test 12 mmol/L 7-16 N code = AGAP) Estimated GFR (test >60 eGFR (es timated code = GFR) mL/min/1.73m2 Glomerular Sourav tration Rate) is an est imated value,calculate d from the patient's s megan creatinine usin g the MDRD equation.I t is NOT the patient 's actual GFR. The eGFR provides a more clinicallyusefu l measure of kidn ey disease than se rum creatinine alone.This calculation angel es sex and race into account, if the informationis provided. If th e race is not provided , and the patient isAfrican-Ameri can, multiply by 1.2 12. If sex is not prov ided, and thepatient is female, multipl y by 0.742. Results for patients <18 ye ars ofage have not been validated by th e MDRD study and shoul d be interpretedwith caution.eGFR Re sult Interpretation: eGFR > or = 60 is in t he Normal RangeeGF R < 60 may mean kidney diseaseeGFR < 1 5 may mean kidney failureRange s recommended by the National Kidney Foundation,http ://nkd ep.nih.gov Lipid [id number] 08:31:00 Test Item Value Reference Range Interpretation Comments Cholesterol (test 263 mg/dL 0-200 H code = CHOL) Triglycerides (test 345 mg/dL 9-200 H Unable t o calculate, code = TRIG) Trig >400 HDL (test code = 38 mg/dL 40-60 L HDL) Chol/HDL (test code 6.9 Ratio 0.0-5.0 H = CHOLPHDL) LDL, Calculated 156 mg/dL 0-130 H (NOTE)RISK O F HEART (test code = LDLC) DISEASEPu blished by [place] Heart AssociationAnal yte Optim al Boderline Increased RiskC HOL <200 200-239 >240TRI G <150 150-199 >200HDL Male: >60 <40HDL Female: >60 <50 LDL < 100 130-15 9 >160 LDL NEAR OPTIMAL IS 100- 129 VLDL (test code = 69 mg/dL 5-40 H VLDL) LDL/HDL (test code = 4 LDLPHDL) RPR, [id number] 06:26:00 Test Item Value Reference Range Interpretation Comments RPR (test code = RPR) Non-Reactive Non-Reactive N Thyroid Stimulating Hormone (TSH)2017-02-13 23:13:00 Test Item Value Reference Range Interpretation Comments TSH (test code = TSH) 2.10 mIU/mL 0.270-4.200 N Lipid [id number] 23:13:00 Test Item Value Reference Range Interpretation Comments Cholesterol (test 255 mg/dL 0-200 H code = CHOL) Triglycerides (test 559 mg/dL 9-200 H code = TRIG) HDL (test code = 32 mg/dL 40-60 L HDL) Chol/HDL (test code 8.0 Ratio 0.0-5.0 H = CHOLPHDL) LDL, Calculated No Calc 0-130 N (NOTE)RISK O F HEART (test code = LDLC) DISEASEPu blished by [place] Heart AssociationAnal yte Optim al Boderline Increased RiskC HOL <200 200-239 >240TRI G <150 150-199 >200HDL Male: >60 <40HDL Female: >60 <50 LDL < 100 130-15 9 >160 LDL NEAR OPTIMAL IS 100-129\\LIPIDNC VLDL (test code = No Calc 5-40 N \\LIPIDNC VLDL) mg/dL LDL/HDL (test code = No Calc \\LIPIDN C LDLPHDL) POC Glucose, [id number] 16:09:00 Test Item Value Reference Range Interpretation Comments POC Glucose (test 340 mg/dL 70-115 H If you con graffiti cleaner your code = POCGLUC) patient crit ically ill, the Ricky Accu- Chek InformII meters hould not be used for Glu cose determinations. Draw a venous Glucose and send to the Main Lab for Analysis. POC Glucose, [id number] 11:08:00 Test Item Value Reference Range Interpretation Comments POC Glucose (test 336 mg/dL 70-115 H If you con graffiti cleaner your code = POCGLUC) patient crit ically ill, the Ricky Accu- Chek InformII meters hould not be used for Glu cose determinations. Draw a venous Glucose and send to the Main Lab for Analysis. POC Glucose, [id number] 08:05:00 Test Item Value Reference Range Interpretation Comments POC Glucose (test 325 mg/dL 70-115 H If you con graffiti cleaner your code = POCGLUC) patient crit ically ill, the Ricky Accu- Chek InformII meters hould not be used for Glu cose determinations. Draw a venous Glucose and send to the Main Lab for Analysis. POC Glucose, [id number] 06:27:00 Test Item Value Reference Range Interpretation Comments POC Glucose (test 338 mg/dL 70-115 H If you con graffiti cleaner your code = POCGLUC) patient crit ically ill, the Ricky Accu- Chek InformII meters hould not be used for Glu cose determinations. Draw a venous Glucose and send to the Main Lab for Analysis. POC Glucose, [id number] 05:02:00 Test Item Value Reference Range Interpretation Comments POC Glucose (test code = 461 mg/dL 70-115 HH Not holden RN or POCGLUC) Comprehensive Metabolic [id number] 23:52:00 Test Item Value Reference Range Interpretation Comments Sodium (test code = 131 mmol/L 135-145 L NA) Potassium (test 3.8 mmol/L 3.5-5.1 N code = K) Chloride (test code 94 mmol/L 98-105 L = CL) Carbon Dioxide 25 mmol/L 22-29 N (test code = CO2) Glucose (test code 442 mg/dL 70-115 HH READ BACK LAB = GLU) VALUESVERIFIED BY REPEAT TESTINGT .Griffin @1152pm 02/13/20 17 kms Blood Urea Nitrogen 13 mg/dL 6-20 N (test code = BUN) Creatinine (test 0.8 mg/dL 0.7-1.2 N code = CREAT) Calcium (test code 9.4 mg/dL 8.3-10.5 N = CA) Prot Total (test 7.0 g/dL 6.4-8.3 N code = TP) Albumin (test code 4.0 g/dL 3.5-5.2 N = ALB) A/G Ratio (test 1.3 Ratio code = AGRATIO) Globulin (test code 3.0 2.9-3.1 N = GLOB) Bili Total (test 0.2 mg/dL 0.1-0.9 N code = TBIL) Alk Phos (test code 110 U/L 40-129 N = APHOS) AST (test code = 16 U/L 1-40 N AST) ALT (test code = 23 U/L 1-41 N ALT) BUN/Creatinine 16.3 Ratio (test code = BCRATIO) Anion Gap (test 12 mmol/L 7-16 N code = AGAP) Estimated GFR (test >60 eGFR (es timated code = GFR) mL/min/1.73m2 Glomerular Sourav tration Rate) is an est imated value,calculate d from the patient's s megan creatinine usin g the MDRD equation.I t is NOT the patient 's actual GFR. The eGFR provides a more clinicallyusefu l measure of kidn ey disease than se rum creatinine alone.This calculation angel es sex and race into a ccount, if the informat ionis provided. If th e race is not provided , and the patient isAfrican-Ameri can, multiply by 1.2 12. If sex is not prov ided, and thepatient is female, multipl y by 0.742. Results for patients <18 ye ars ofage have not been validated by e MDRD study and shoul d be interpretedwith caution.eGFR Re sult Interpretation: eGFR > or = 60 is in t he Normal RangeeGF R < 60 may mean kidney diseaseeGFR < 1 5 may mean kidney failureRange s recommended by the National Kidney Foundation,http ://nkde p.nih.gov Urinalysis [id number] 23:37:00 Test Item Value Reference Range Interpretation Comments Color (test code = COLOR) Yellow Yellow,Straw,Pl N yellow Clarity (test code = Clear Clear N CLAR) Specific [place] (test 1.027 1.001-1.035 N code = SPGR) pH (test code = PH) 7.0 5.0-9.0 N Ketone (test code = KET) 15 mg/dL Negative A Glucose (test code = 1000 mg/dL Negative A GLUCUR) Protein (test code = Negative mg/dL Negative N PROT) Bilirubin (test code = Negative mg/dL Negative N BILI) Occult Blood (test code = Negative Negative N UDOB) Urobilinogen (test code = 0.2 mg/dL 0.2-1.0 N UROB) Nitrite (test code = NIT) Negative Negative N Leuk Esterase (test code Negative Negative N = LEUK) Micros Exam (test code = Indicated MEXAM) Epithelial Cells (test None /LPF 0-30 A code = EPI) WBC, Urine (test code = None seen /HPF 0-5 A UWBC) RBC, Urine (test code = None Seen /HPF 0-5 A URBC) Bacteria (test code = None /HPF BACT) [id number] 23:36:00 Test Item Value Reference Range Interpretation Comments Amphetamine (test Negative Negative N For diagno stic code = AMPH) purposes only, positive result s should always b e assessedin conjunctionwith the patient's medic al history,clinica l examination and otherfindings.T o fulfill legal requirements, a more specific altern ate chemical method must be used inorder to obtain a Confirmed kaia lytical result. GC/MS i s the preferred confi rmatory method. Barbiturates (test Negative Negative N code = JOSSELYN) Benzodiazepine (test Negative Negative N code = SUDHIR) Cocaine (test code = Negative Negative N COCA) Methadone (test code Negative Negative N = MTHD) Opiates (test code = Negative Negative N OPIA) PCP (test code = PCP) Negative Negative N Propoxyphene (test Negative Negative N code = PROPOX) THC (test code = THC) Negative Negative N Alcohol, Urine (test <0.01 g/dL 0.00-0.01 N code = ETOHU) CBC with [id number] 23:10:00 Test Item Value Reference Range Interpretation Comments WBC (test code = WBC) 9.4 K/cumm 4.4-10.5 N RBC (test code = RBC) 4.84 M/cumm 4.10-5.70 N Hemoglobin (test code = HGB) 15.2 gm/dL 13.4-17.4 N Hematocrit (test code = HCT) 44.2 % 38.7-52.0 N MCV (test code = MCV) 91.5 fL 80-100 N MCH (test code = MCH) 31.3 pg 27.0-32.5 N MCHC (test code = MCHC) 34.3 g/dL 32.0-37.5 N RDW (test code = RDW) 12.5 % 11.5-14.5 N Platelet Count (test code = 285 K/cumm 140-440 N PLTCT) MPV (test code = MPV) 7.5 fL Diff Method (test code = DIFFM) Auto Neutrophil (test code = NEUT) 59.0 % 36-70 N Lymphocyte (test code = LYMPH) 33.6 % 12-44 N Monocyte (test code = MONO) 4.4 % 0-11 N Eosinophil (test code = EOS) 2.4 % 0-7 N Basophil (test code = BASO) 0.6 % 0-2 N Neutro Abs (test code = ANEUT) 5.5 K/cumm 1.6-7.4 N Lymph Abs (test code = ALYMPH) 3.2 K/cumm 0.5-4.6 N [place] Abs (test code = AMONO) 0.4 K/cumm 0.0-1.2 N Eos Abs (test code = AEOS) 0.23 K/cumm 0.00-0.74 N Baso Abs (test code = ABASO) 0.1 K/cumm 0.00-0.21 N POC Glucose, [id number] 02:01:00 Test Item Value Reference Range Interpretation Comments POC Glucose (test code = 410 mg/dL 70-115 HH Not holden RN or POCGLUC) Comprehensive Metabolic [id number] 23:58:00 Test Item Value Reference Range Interpretation Comments Sodium (test code = 134 mmol/L 135-145 L verp rbl v NA) Potassium (test 4.0 mmol/L 3.5-5.1 N verp rblv code = K) Chloride (test code 95 mmol/L 98-105 L verp rbl v = CL) Carbon Dioxide 26 mmol/L 22-29 N verp rblv (test code = CO2) Glucose (test code 427 mg/dL 70-115 HH verp rblv verp rblv = GLU) Blood Urea Nitrogen 13 mg/dL 6-20 N verp rbl v (test code = BUN) Creatinine (test 0.8 mg/dL 0.7-1.2 N verp rblv code = CREAT) Calcium (test code 9.6 mg/dL 8.3-10.5 N verp rblv = CA) Prot Total (test 6.7 g/dL 6.4-8.3 N verp rblv code = TP) Albumin (test code 4.0 g/dL 3.5-5.2 N verp rblv = ALB) A/G Ratio (test 1.5 Ratio verp rblv code = AGRATIO) Globulin (test code 2.7 2.9-3.1 L verp rbl v = GLOB) Bili Total (test 0.2 mg/dL 0.1-0.9 N verp rblv code = TBIL) Alk Phos (test code 143 U/L 40-129 H verp rbl v = APHOS) AST (test code = 26 U/L 1-40 N verp rblv AST) ALT (test code = 26 U/L 1-41 N verp rblv ALT) BUN/Creatinine 16.3 verp rblv Ratio (test code = BCRATIO) Anion Gap (test 13 mmol/L 7-16 N verp rblv code = AGAP) Estimated GFR (test >60 eGFR (es timated code = GFR) mL/min/1.73m2 Glomerular Sourav tration Rate) is an est imated value,calculate d from the patient's s megan creatinine usin g the MDRD equation.I t is NOT the patient 's actual GFR. The eGFR provides a more clinicallyusefu l measure of kidn ey disease than se rum creatinine alone.This calculation angel es sex and race into account, if the informationis provided. If th e race is not provided , and the patient isAfrican-Ameri can, multiply by 1.2 12. If sex is not prov ided, and thepatient is female, multipl y by 0.742. Results for patients <18 ye ars ofage have not been validated by th e MDRD study and shoul d be interpretedwith caution.eGFR Re sult Interpretation: eGFR > or = 60 is in t he Normal RangeeGF R < 60 may mean kidney diseaseeGFR < 1 5 may mean kidney failureRange s recommended by the National Kidney Foundation,http ://nkd ep.nih.govverp rblv [id number] 23:28:00 Test Item Value Reference Range Interpretation Comments Amphetamine (test Negative Negative N For diagno stic code = AMPH) purposes only, positive result s should always b e assessedin conjunctionwith the patient's medic al history,clinica l examination and otherfindings.T o fulfill legal requirements, a more specific altern ate chemical method must be used inorder to obtain a Confirmed kaia lytical result. GC/MS i s the preferred confi rmatory method. Barbiturates (test Negative Negative N code = JOSSELYN) Benzodiazepine (test Negative Negative N code = SUDHIR) Cocaine (test code = POSITIVE Negative A COCA) Methadone (test code Negative Negative N = MTHD) Opiates (test code = Negative Negative N OPIA) PCP (test code = PCP) Negative Negative N Propoxyphene (test Negative Negative N code = PROPOX) THC (test code = THC) POSITIVE Negative A Alcohol, Urine (test <0.01 g/dL 0.00-0.01 N code = ETOHU) Urinalysis [id number] 23:27:00 Test Item Value Reference Range Interpretation Comments Color (test code = COLOR) Straw Yellow,Straw,Pl N yellow Clarity (test code = Clear Clear N CLAR) Specific [place] (test 1.031 1.001-1.035 N code = SPGR) pH (test code = PH) 7.0 5.0-9.0 N Ketone (test code = KET) Negative mg/dL Negative N Glucose (test code = 1000 mg/dL Negative A GLUCUR) Protein (test code = Negative mg/dL Negative N PROT) Bilirubin (test code = Negative mg/dL Negative N BILI) Occult Blood (test code = Negative Negative N UDOB) Urobilinogen (test code = 0.2 mg/dL 0.2-1.0 N UROB) Nitrite (test code = NIT) Negative Negative N Leuk Esterase (test code Negative Negative N = LEUK) Micros Exam (test code = Indicated MEXAM) Epithelial Cells (test None /LPF 0-30 A code = EPI) WBC, Urine (test code = None seen /HPF 0-5 A UWBC) RBC, Urine (test code = None Seen /HPF 0-5 A URBC) Bacteria (test code = None /HPF BACT) CBC with [id number] 23:18:00 Test Item Value Reference Range Interpretation Comments WBC (test code = WBC) 8.5 K/cumm 4.4-10.5 N RBC (test code = RBC) 4.54 M/cumm 4.10-5.70 N Hemoglobin (test code = HGB) 14.7 gm/dL 13.4-17.4 N Hematocrit (test code = HCT) 41.7 % 38.7-52.0 N MCV (test code = MCV) 91.8 fL 80-100 N MCH (test code = MCH) 32.4 pg 27.0-32.5 N MCHC (test code = MCHC) 35.3 g/dL 32.0-37.5 N RDW (test code = RDW) 12.4 % 11.5-14.5 N Platelet Count (test code = 246 K/cumm 140-440 N PLTCT) MPV (test code = MPV) 8.3 fL Diff Method (test code = DIFFM) Auto Neutrophil (test code = NEUT) 57.9 % 36-70 N Lymphocyte (test code = LYMPH) 33.7 % 12-44 N Monocyte (test code = MONO) 5.9 % 0-11 N Eosinophil (test code = EOS) 2.0 % 0-7 N Basophil (test code = BASO) 0.6 % 0-2 N Neutro Abs (test code = ANEUT) 4.9 K/cumm 1.6-7.4 N Lymph Abs (test code = ALYMPH) 2.9 K/cumm 0.5-4.6 N [place] Abs (test code = AMONO) 0.5 K/cumm 0.0-1.2 N Eos Abs (test code = AEOS) 0.17 K/cumm 0.00-0.74 N Baso Abs (test code = ABASO) 0.1 K/cumm 0.00-0.21 N Urinalysis [id number] 06:46:00 Test Item Value Reference Range Interpretation Comments Color (test code = COLOR) Straw Yellow,Straw,Pl N yellow Clarity (test code = Clear Clear N CLAR) Specific [place] (test 1.032 1.001-1.035 N code = SPGR) pH (test code = PH) 6.5 5.0-9.0 N Ketone (test code = KET) Negative mg/dL Negative N Glucose (test code = 1000 mg/dL Negative A GLUCUR) Protein (test code = Negative mg/dL Negative N PROT) Bilirubin (test code = Negative mg/dL Negative N BILI) Occult Blood (test code = Negative Negative N UDOB) Urobilinogen (test code = 0.2 mg/dL 0.2-1.0 N UROB) Nitrite (test code = NIT) Negative Negative N Leuk Esterase (test code Negative Negative N = LEUK) Micros Exam (test code = Indicated MEXAM) Epithelial Cells (test Few /LPF 0-30 A code = EPI) WBC, Urine (test code = 0-5 /HPF 0-5 N UWBC) RBC, Urine (test code = 0-3 /HPF 0-5 A URBC) Bacteria (test code = Occ /HPF BACT) [id number] 06:07:00 Test Item Value Reference Range Interpretation Comments Amphetamine (test Negative Negative N For diagno stic code = AMPH) purposes only, positive result s should always b e assessedin conjunctionwith the patient's medic al history,clinica l examination and otherfindings.T o fulfill legal requirements, a more specific altern ate chemical method must be used inorder to obtain a Confirmed kaia lytical result. GC/MS i s the preferred confi rmatory method. Barbiturates (test Negative Negative N code = JOSSELYN) Benzodiazepine (test Negative Negative N code = SUDHIR) Cocaine (test code = POSITIVE Negative A COCA) Methadone (test code Negative Negative N = MTHD) Opiates (test code = Negative Negative N OPIA) PCP (test code = PCP) Negative Negative N Propoxyphene (test Negative Negative N code = PROPOX) THC (test code = THC) Negative Negative N Alcohol, Urine (test <0.01 g/dL 0.00-0.01 N code = ETOHU) Comprehensive Metabolic [id number] 05:33:00 Test Item Value Reference Range Interpretation Comments Sodium (test code = 125 mmol/L 135-145 L NA) Potassium (test 3.9 mmol/L 3.5-5.1 N code = K) Chloride (test code 90 mmol/L 98-105 L = CL) Carbon Dioxide 26 mmol/L 22-29 N (test code = CO2) Glucose (test code 634 mg/dL 70-115 HH karen rblv = GLU) Blood Urea Nitrogen 15 mg/dL 6-20 N (test code = BUN) Creatinine (test 0.9 mg/dL 0.7-1.2 N code = CREAT) Calcium (test code 9.2 mg/dL 8.3-10.5 N = CA) Prot Total (test 6.5 g/dL 6.4-8.3 N code = TP) Albumin (test code 3.8 g/dL 3.5-5.2 N = ALB) A/G Ratio (test 1.4 Ratio code = AGRATIO) Globulin (test code 2.7 2.9-3.1 L = GLOB) Bili Total (test 0.2 mg/dL 0.1-0.9 N code = TBIL) Alk Phos (test code 129 U/L 40-129 N = APHOS) AST (test code = 39 U/L 1-40 N AST) ALT (test code = 27 U/L 1-41 N ALT) BUN/Creatinine 16.7 Ratio (test code = BCRATIO) Anion Gap (test 9 mmol/L 7-16 N code = AGAP) Estimated GFR (test >60 eGFR (es timated code = GFR) mL/min/1.73m2 Glomerular Sourav tration Rate) is an est imated value,calculate d from the patient's s megan creatinine usin g the MDRD equation.I t is NOT the patient 's actual GFR. The eGFR provides a more clinicallyusefu l measure of kidn ey disease than se rum creatinine alone.This calculation angel es sex and race into account, if the informationis provided. If th e race is not provided , and the patient isAfrican-Ameri can, multiply by 1.2 12. If sex is not prov ided, and thepatient is female, multipl y by 0.742. Results for patients <18 ye ars ofage have not been validated by th e MDRD study and shoul d be interpretedwith caution.eGFR Re sult Interpretation: eGFR > or = 60 is in t he Normal RangeeGF R < 60 may mean kidney diseaseeGFR < 1 5 may mean kidney failureRange s recommended by the National Kidney Foundation,http ://nkd ep.nih.gov CBC with [id number] 05:08:00 Test Item Value Reference Range Interpretation Comments WBC (test code = WBC) 7.2 K/cumm 4.4-10.5 N RBC (test code = RBC) 4.64 M/cumm 4.10-5.70 N Hemoglobin (test code = HGB) 14.5 gm/dL 13.4-17.4 N Hematocrit (test code = HCT) 42.6 % 38.7-52.0 N MCV (test code = MCV) 91.7 fL 80-100 N MCH (test code = MCH) 31.2 pg 27.0-32.5 N MCHC (test code = MCHC) 34.0 g/dL 32.0-37.5 N RDW (test code = RDW) 13.1 % 11.5-14.5 N Platelet Count (test code = 283 K/cumm 140-440 N PLTCT) MPV (test code = MPV) 8.0 fL Diff Method (test code = DIFFM) Auto Neutrophil (test code = NEUT) 73.6 % 36-70 H Lymphocyte (test code = LYMPH) 18.8 % 12-44 N Monocyte (test code = MONO) 6.2 % 0-11 N Eosinophil (test code = EOS) 0.8 % 0-7 N Basophil (test code = BASO) 0.6 % 0-2 N Neutro Abs (test code = ANEUT) 5.3 K/cumm 1.6-7.4 N Lymph Abs (test code = ALYMPH) 1.4 K/cumm 0.5-4.6 N [place] Abs (test code = AMONO) 0.5 K/cumm 0.0-1.2 N Eos Abs (test code = AEOS) 0.06 K/cumm 0.00-0.74 N Baso Abs (test code = ABASO) 0.1 K/cumm 0.00-0.21 N Basic Metabolic [id number] 21:36:00 Test Item Value Reference Range Interpretation Comments Sodium (test code = 131 mmol/L 135-145 L NA) Potassium (test 3.6 mmol/L 3.5-5.1 N code = K) Chloride (test code 97 mmol/L 98-105 L = CL) Carbon Dioxide 25 mmol/L 22-29 N (test code = CO2) Glucose (test code 321 mg/dL 70-115 H = GLU) Blood Urea Nitrogen 10 mg/dL 6-20 N (test code = BUN) Creatinine (test 0.6 mg/dL 0.7-1.2 L code = CREAT) Calcium (test code 9.0 mg/dL 8.3-10.5 N = CA) BUN/Creatinine 16.7 Ratio (test code = BCRATIO) Anion Gap (test 9 mmol/L 7-16 N code = AGAP) Estimated GFR (test >60 eGFR (es timated code = GFR) mL/min/1.73m2 Glomerular Sourav tration Rate) is an est imated value,calculate d from the patient's s megan creatinine usin g the MDRD equation.I t is NOT the patient 's actual GFR. The eGFR provides a more clinicallyusefu l measure of kidn ey disease than se rum creatinine alone.This calculation angel es sex and race into account, if the informationis provided. If th e race is not provided , and the patient isAfrican-Ameri can, multiply by 1.2 12. If sex is not prov ided, and thepatient is female, multipl y by 0.742. Results for patients <18 ye ars ofage have not been validated by e MDRD study and norma d be interpretedwith caution.eGFR Re sult Interpretation: eGFR > or = 60 is in t he Normal RangeeGF R < 60 may mean kidney diseaseeGFR < 1 5 may mean kidney failureRange s recommended by the National Kidney Foundation,http ://nkd ep.nih.gov Basic Metabolic [id number] 20:55:00 Test Item Value Reference Range Interpretation Comments Sodium (test code = 143 mmol/L 135-145 N NA) Potassium (test 1.0 mmol/L 3.5-5.1 LL VERIFIED BY REPEAT code = K) TESTINGREAD DARSHAN K LAB VALUESAFUWAPE 2 0:51 09/02/2016 OG Chloride (test code 127 mmol/L 98-105 H = CL) Carbon Dioxide 8 mmol/L 22-29 LL VERIFIED BY R EPEAT (test code = CO2) TESTINGREA D BACK LAB VALUESAFUWAPE 2 0:51 09/02/2016 OG Glucose (test code 127 mg/dL 70-115 H = GLU) Blood Urea Nitrogen 4 mg/dL 6-20 L (test code = BUN) Creatinine (test 0.0 mg/dL 0.7-1.2 L code = CREAT) Calcium (test code 2.4 mg/dL 8.3-10.5 LL VERIFIED BY REPEAT = CA) TESTINGREAD DARSHAN K LAB VALUESAFUWAPE 2 0:51 09/02/2016 OG BUN/Creatinine 0.0 Ratio (test code = BCRATIO) Anion Gap (test 8 mmol/L 7-16 N code = AGAP) Estimated GFR (test 0 eGFR (es timated code = GFR) mL/min/1.73m2 Glomerular Sourav tration Rate) is an est imated value,calculate d from the patient's s megan creatinine usin g the MDRD equation.I t is NOT the patient 's actual GFR. The eGFR provides a more clinicallyusefu l measure of kidn ey disease than se rum creatinine alone.This calculation angel es sex and race into account, if the informationis provided. If th e race is not provided , and the patient isAfrican-Ameri can, multiply by 1.2 12. If sex is not prov ided, and thepatient is female, multipl y by 0.742. Results for patients <18 ye ars ofage have not been validated by e MDRD study and shoul d be interpretedwith caution.eGFR Re sult Interpretation: eGFR > or = 60 is in t he Normal RangeeGF R < 60 may mean kidney diseaseeGFR < 1 5 may mean kidney failureRange s recommended by the National Kidney Foundation,http ://nkd ep.nih.gov POC Glucose, [id number] 20:43:00 Test Item Value Reference Range Interpretation Comments POC Glucose (test 316 mg/dL 70-115 H Notify RN or MDIf you code = POCGLUC) consider you r patient critically ill, the Ricky Accu-Chek InformII metershould not be used for Glucose determinations. Draw a venous Glucose and send to the Main Lab for Analysis. POC Glucose, [id number] 20:12:00 Test Item Value Reference Range Interpretation Comments POC Glucose (test 309 mg/dL 70-115 H Notify RN or MDIf you code = POCGLUC) consider you r patient critically ill, the Ricky Accu-Chek InformII metershould not be used for Glucose determinations. Draw a venous Glucose and send to the Main Lab for Analysis. POC Glucose, [id number] 18:58:00 Test Item Value Reference Range Interpretation Comments POC Glucose (test 339 mg/dL 70-115 H Notify RN or MDIf you code = POCGLUC) consider you r patient critically ill, the Ricky Accu-Chek InformII metershould not be used for Glucose determinations. Draw a venous Glucose and send to the Main Lab for Analysis. Urinalysis [id number] 18:17:00 Test Item Value Reference Range Interpretation Comments Color (test code = COLOR) Straw Yellow,Straw,Pl N yellow Clarity (test code = Clear Clear N CLAR) Specific [place] (test 1.028 1.001-1.035 N code = SPGR) pH (test code = PH) 5.0 5.0-9.0 N Ketone (test code = KET) Negative mg/dL Negative N Glucose (test code = 1000 mg/dL Negative A GLUCUR) Protein (test code = Negative mg/dL Negative N PROT) Bilirubin (test code = Negative mg/dL Negative N BILI) Occult Blood (test code = Negative Negative N UDOB) Urobilinogen (test code = 0.2 mg/dL 0.2-1.0 N UROB) Nitrite (test code = NIT) Negative Negative N Leuk Esterase (test code Negative Negative N = LEUK) Micros Exam (test code = Indicated MEXAM) Epithelial Cells (test 0-2 /LPF 0-30 A code = EPI) WBC, Urine (test code = 0-5 /HPF 0-5 N UWBC) RBC, Urine (test code = 0-3 /HPF 0-5 A URBC) Bacteria (test code = Few /HPF BACT) Comprehensive Metabolic [id number] 17:27:00 Test Item Value Reference Range Interpretation Comments Sodium (test code = 123 mmol/L 135-145 L NA) Potassium (test 4.3 mmol/L 3.5-5.1 N code = K) Chloride (test code 84 mmol/L 98-105 L = CL) Carbon Dioxide 25 mmol/L 22-29 N (test code = CO2) Glucose (test code 846 mg/dL 70-115 HH VERIFIED BY REPEAT = GLU) TESTINGREAD DARSHAN K LAB VALUESA DAVID ZELAYA 17:26 7 OG Blood Urea Nitrogen 12 mg/dL 6-20 N (test code = BUN) Creatinine (test 1.0 mg/dL 0.7-1.2 N code = CREAT) Calcium (test code 9.9 mg/dL 8.3-10.5 N = CA) Prot Total (test 7.0 g/dL 6.4-8.3 N code = TP) Albumin (test code 4.1 g/dL 3.5-5.2 N = ALB) A/G Ratio (test 1.4 Ratio code = AGRATIO) Globulin (test code 2.9 2.9-3.1 N = GLOB) Bili Total (test 0.2 mg/dL 0.1-0.9 N code = TBIL) Alk Phos (test code 133 U/L 40-129 H = APHOS) AST (test code = 14 U/L 1-40 N AST) ALT (test code = 28 U/L 1-41 N ALT) BUN/Creatinine 12.0 Ratio (test code = BCRATIO) Anion Gap (test 14 mmol/L 7-16 N code = AGAP) Estimated GFR (test >60 eGFR (es timated code = GFR) mL/min/1.73m2 Glomerular Sourav tration Rate) is an est imated value,calculate d from the patient's s megan creatinine usin g the MDRD equation.I t is NOT the patient 's actual GFR. The eGFR provides a more clinicallyusefu l measure of kidn ey disease than se rum creatinine alone.This calculation angel es sex and race into account, if the informationis provided. If th e race is not provided , and the patient isAfrican-Ameri can, multiply by 1.2 12. If sex is not prov ided, and thepatient is female, multipl y by 0.742. Results for patients <18 ye ars ofage have not been validated by th e MDRD study and shoul d be interpretedwith caution.eGFR Re sult Interpretation: eGFR > or = 60 is in t he Normal RangeeGF R < 60 may mean kidney diseaseeGFR < 1 5 may mean kidney failureRange s recommended by the National Kidney Foundation,http ://nkd ep.nih.gov CBC with [id number] 16:50:00 Test Item Value Reference Range Interpretation Comments WBC (test code = WBC) 10.1 K/cumm 4.4-10.5 N RBC (test code = RBC) 5.11 M/cumm 4.10-5.70 N Hemoglobin (test code = HGB) 15.0 gm/dL 13.4-17.4 N Hematocrit (test code = HCT) 48.1 % 38.7-52.0 N MCV (test code = MCV) 94.2 fL 80-100 N MCH (test code = MCH) 29.4 pg 27.0-32.5 N MCHC (test code = MCHC) 31.2 g/dL 32.0-37.5 L RDW (test code = RDW) 14.2 % 11.5-14.5 N Platelet Count (test code = 351 K/cumm 140-440 N PLTCT) MPV (test code = MPV) 8.5 fL Diff Method (test code = DIFFM) Auto Neutrophil (test code = NEUT) 72.0 % 36-70 H Lymphocyte (test code = LYMPH) 20.1 % 12-44 N Monocyte (test code = MONO) 6.0 % 0-11 N Eosinophil (test code = EOS) 0.9 % 0-7 N Basophil (test code = BASO) 0.9 % 0-2 N Neutro Abs (test code = ANEUT) 7.3 K/cumm 1.6-7.4 N Lymph Abs (test code = ALYMPH) 2.0 K/cumm 0.5-4.6 N [place] Abs (test code = AMONO) 0.6 K/cumm 0.0-1.2 N Eos Abs (test code = AEOS) 0.09 K/cumm 0.00-0.74 N Baso Abs (test code = ABASO) 0.1 K/cumm 0.00-0.21 N [id number] 16:31:00 Test Item Value Reference Range Interpretation Comments Amphetamine (test Negative Negative N For diagno stic code = AMPH) purposes only, positive result s should always b e assessedin conjunctionwith the patient's medic al history,clinica l examination and otherfindings.T o fulfill legal requirements, a more specific altern ate chemical method must be used inorder to obtain a Confirmed kaia lytical result. GC/MS i s the preferred confi rmatory method. Barbiturates (test Negative Negative N code = JOSSELYN) Benzodiazepine (test Negative Negative N code = SUDHIR) Cocaine (test code = Negative Negative N COCA) Methadone (test code Negative Negative N = MTHD) Opiates (test code = Negative Negative N OPIA) PCP (test code = PCP) Negative Negative N Propoxyphene (test Negative Negative N code = PROPOX) THC (test code = THC) Negative Negative N Alcohol, Urine (test <0.01 g/dL 0.00-0.01 N code = ETOHU)
--- OUTSIDE RECORDS SUMMARY | 2020-04-27 19:37 | XMS REPORT | Summary of Care ---
:1975 Author Organization [facility] [[email or web address]] - [facility] Address [address] [place] [address] Care Team Providers Name Role Phone Terrence Liang MD Primary Care Provider Unavailable Reason for Referral Radiology Services (STAT) Status Reason Specialty Diagnoses / Referred By Referred To Procedures Contact Contact New Request Diagnostic Diagnoses SOB (shortness of breath) Yuniel Nieves, Radiology Procedures Chest 1 View [address] [facility] [address] [place] [address] Reason for Visit Reason Comments Shortness of Breath from walking Auth/Cert Status Reason Specialty Diagnoses / Referred By Referred To Procedures Contact Contact Emergency Medicine [facility] Em ergency Dept [address] [place] [address] Encounter Details Date Type Department Care Team Description 03/01/2020 Emergency [facility]-Emergency Yuniel Nieves MD SOB (shortness of Department [address] breath) (Primary Dx) [address] [place] [address] [place] [address] [place] [address] [phone] Allergies No Known Allergiesdocumented as of this encounter (statuses as of 03/01/2020) Medications Medication Sig Dispensed Refills Start Date End Date Status LITHIUM ASPARTATE Take by mouth. 0 Active ORAL fluPHENAZine 12.5 mg by 0 Active decanoate 25 mg/mL Intramuscular route injection every 14 (fourteen) days. metFORMIN 500 mg Take 1 tablet by 60 tablet 0 07/25/2019 Active tabletIndications: mouth 2 (two) times Hyperglycemia daily. Risperidone 0.25 mg Take 0.25 mg by 20 tablet 0 12/02/2019 Active TbDLIndications: mouth every Medication refill evening. divalproex Take 1 tablet by 20 tablet 0 12/02/2019 A ctive (DEPAKOTE) 500 mg EC mouth every 12 tabletIndications: (twelve) hours. Medication refill gabapentin Take 1 capsule by 30 capsule 0 02/21/2020 Active (NEURONTIN) 100 mg mouth 3 (three) capsuleIndications: times daily. Neuropathy documented as of this encounter (statuses as of 03/01/2020) Active Problems No known active problemsdocumented as of this encounter (statuses as of 03/01/2020) Social History Tobacco Use Types Packs/Day Years Used Date Never Assessed Sex Assigned at Date Recorded Not on file COVID-19 Exposure Response Date Recorded In the last month, have you been in contact with No / Unsure 03/01/2020 3:53 AM [employer] someone who was confirmed or suspected to have Coronavirus / COVID-19? documented as of this encounter Last Filed Vital Signs Vital Sign Reading Time Taken Comments Blood Pressure 121/73 03/01/2020 5:45 AM [employer] Pulse 85 03/01/2020 5:45 AM [employer] Temperature 37.1 C (98.7 F) 03/01/2020 5:45 AM [employer] Respiratory Rate 17 03/01/2020 5:45 AM [employer] Oxygen Saturation 97% 03/01/2020 5:45 AM [employer] Inhaled Oxygen Concentration - - Weight 81.2 kg (179 lb) 03/01/2020 3:54 AM [employer] Height 162.6 cm (5' 4") 03/01/2020 3:54 AM [employer] Body Mass Index 30.73 03/01/2020 3:54 AM [employer] documented in this encounter Discharge Instructions AttachmentsThe following attachments cannot be sent through Care Everywhere. Shortness of Breath (Dyspnea) (Luxembourger)documented in this encounter ED Notes Satnam Reese RN - 03/01/2020 3:53 AM CSTPt states that he has ongoing SOB x1 week. Patient states that he has been walking and that causes the pain in his legs and feet and SOB. 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 Patient A&Ox4, VSS, NAD. Patient reports slight production of mucus with occasional cough. Yuniel Aldana MD - 03/01/2020 3:41 AM CST [facility] [[email or web address]] Emergency Department Note Patient Name: Bryn Camargo Date of : 1975 44 year old male Treatment Room: [facility] E0/CLE04 Primary Care Physician: Terrence Liang Patient Escorted by: Self [9] Mode of Arrival: Personal means [1] EMS Treatment Prior to ED Arrival: Travel and Exposure Screening: Symptoms Does patient have any of these symptoms?: (not recorded) Exposure Screening Has patient had contact with someone with a communicable disease in the last month?: (not recorded) Diseases exposed to:: (not recorded) Is Patient ?: (not recorded) Exposure Date: (not recorded) Chief Complaint: Chief Complaint Patient presents with Shortness of Breath from walking History of Present Illness: The patient presents emergency department complaining of shortness of breath. He states that when heis walking around his feet hurt and her burning. He gets short of breath. He also complains of blackout spells that he has been having frequently. He was seen in the emergency department within the last 48 hours for syncopal spells. His workup was unremarkable. Patient has schizophrenia and has frequent ER visits. Patient is currently stating he is not suicidal. PMH: DM, HTN, schizophrenia Soc: + smoking Past Medical History/Immunizations: Past Medical History: Diagnosis Date DM (diabetes mellitus) HTN (hypertension) Schizophrenia Tetanus received in last 5 years: Yes Childhood immunizations: Up-to-date Allergies: No Known Allergies Past Social History: Substance & Sexual Activity No substance use or sexual activity history on file. Past Surgical History: History reviewed. No pertinent surgical history. Review of Systems: Review of Systems Constitutional: Negative for chills and fever. HENT: Positive for congestion. Respiratory: Positive for cough and shortness of breath. Cardiovascular: Positive for chest pain. Gastrointestinal: Negative for abdominal pain and vomiting. Genitourinary: Positive for frequency. Musculoskeletal: Negative for back pain. Skin: Negative for color change, pallor, rash and wound. Neurological: Positive for syncope. Psychiatric/Behavioral: Negative for suicidal ideas. All other systems reviewed and are negative. Physical Exam: ED Triage Vitals [03/01/20 0354] Weight 81.2 kg (179 lb) Actual or estimated Estimated by patient/family report Height 1.626 m (5' 4") BP 130/83 Pulse 97 Resp 19 Temp 37.1 C (98.8 F) Temp source Oral SpO2 98 % Measured on Room air Physical Exam Constitutional: General: He is not in acute distress. Appearance: Normal appearance. He is not ill-appearing. HENT: Head: Normocephalic and atraumatic. Nose: Nose normal. Mouth/Throat: Mouth: Mucous membranes are moist. Pharynx: Oropharynx is clear. Eyes: Conjunctiva/sclera: Conjunctivae normal. Neck: Musculoskeletal: Normal range of motion. Cardiovascular: Rate and Rhythm: Normal rate and regular rhythm. Heart sounds: Normal heart sounds. Pulmonary: Effort: Pulmonary effort is normal. No respiratory distress. Breath sounds: Normal breath sounds. Abdominal: General: There is no distension. Tenderness: There is no abdominal tenderness. Musculoskeletal: Normal range of motion. General: No swelling. Right lower leg: No edema. Left lower leg: No edema. Skin: General: Skin is warm and dry. Neurological: General: No focal deficit present. Mental Status: He is alert. Mental status is at baseline. Psychiatric: Mood and Affect: Mood normal. Behavior: Behavior normal. Thought Content: Thought content normal. Judgment: Judgment normal. Radiology: Hospital Encounter on 03/01/20 Chest 1 View Narrative Examination: Chest one view (portable frontal) Ordering Physician: YUNIEL NIEVES History: SOB Comparison: 01/24/2020 Findings: Single portable view of the chest is submitted for review. Pulmonary vascularity appears normal. The lungs are clear. There is no significant pleural effusion evident. There is no significant pneumothorax evident. Heart size is normal. Impression Impression: No radiographic evidence of acute cardiopulmonary disease. RL: 1008 AFC: [id number] Lab Results (24h): Recent Results (from the past 24 hour(s)) CBC with Differential Collection Time: 03/01/20 4:31 AM Result Value Ref Range WBC 9.23 4.20 - 10.70 10*3/L RBC 4.60 4.26 - 5.52 10*6/L HGB 14.5 12.2 - 16.4 g/dL HCT 40.9 38.4 - 49.3 % MCV 88.9 81.7 - 95.6 fL MCH 31.5 26.1 - 32.7 pg MCHC 35.5 (H) 31.2 - 35.0 g/dL RDW-SD 38.4 (L) 38.5 - 51.6 fL RDW-CV 11.9 (L) 12.1 - 15.4 % PLT 251 150 - 328 10*3/L MPV 9.8 9.8 - 13.0 fL NRBC/100 WBC 0.0 0.0 - 10.0 /100 WBCs NRBC x10^3 <0.01 10*3/L GRAN MAT (NEUT) % 58.0 % IMM GRAN % 0.30 % LYMPH % 28.8 % MONO % 10.6 % EOS % 1.8 % BASO % 0.5 % GRAN MAT x10^3(ANC) 5.34 1.99 - 6.95 10*3/uL IMM GRAN x10^3 0.03 0.00 - 0.06 10*3/uL LYMPH x10^3 2.66 1.09 - 3.23 10*3/uL MONO x10^3 0.98 0.36 - 1.02 10*3/uL EOS x10^3 0.17 0.06 - 0.53 10*3/uL BASO x10^3 0.05 0.01 - 0.09 10*3/uL Basic Metabolic Panel (NA, K, CL, CO2, GLUCOSE, BUN, CREATININE, CA) Collection Time: 03/01/20 4:31 AM Result Value Ref Range NA 133 (L) 135 - 145 mmol/L K 4.6 3.5 - 5.0 mmol/L CL 96 (L) 98 - 108 mmol/L CO2 TOTAL 29 23 - 31 mmol/L AGAP 8 2 - 16 BUN 13 7 - 23 mg/dL GLUCOSE 290 (H) 70 - 110 mg/dL CREATININE 0.66 0.60 - 1.25 mg/dL CALCIUM 9.7 8.6 - 10.6 mg/dL eGFR Calculation (Non-) 131.1 mL/min/1.73m2 eGFR Calculation () 158.9 mL/min/1.73m2 Hepatic Function Panel (ALB, T.PRO, BILI T, BU/BC, ALT, AST, ALK PHOS) Collection Time: 03/01/20 4:31 AM Result Value Ref Range TOTAL BILI 0.4 0.1 - 1.1 mg/dL BILI UNCON 0.2 0.1 - 1.1 mg/dL BILI CONJ 0.0 0.0 - 0.3 mg/dL T PROTEIN 7.4 6.3 - 8.2 g/dL ALBUMIN 4.1 3.5 - 5.0 g/dL ALK PHOS 83 34 - 122 U/L ALTv 21 5 - 50 U/L AST(SGOT) 30 13 - 40 U/L Troponin I Collection Time: 03/01/20 4:31 AM Result Value Ref Range TROPONIN I 0.009 <=0.034 ng/mL N-TERMINAL PRO-BNP Collection Time: 03/01/20 4:31 AM Result Value Ref Range NT-proBNP 25 <=125 pg/mL EKG: normal sinus rhythm (91), normal axis, normal QRS duration, no ST/T changes Orders and Treatments: Orders Placed This Encounter Procedures Chest 1 View CBC with Differential Basic Metabolic Panel (NA, K, CL, CO2, GLUCOSE, BUN, CREATININE, CA) Hepatic Function Panel (ALB, T.PRO, BILI T, BU/BC, ALT, AST, ALK PHOS) Troponin I N-TERMINAL PRO-BNP Orders Placed This Encounter Medications NaCl 0.9% (NS) bolus infusion 1,000 mL ED COURSE MDM Number of Diagnoses or Management Options SOB (shortness of breath): new, needed workup Diagnosis management comments: Patient presented to the emergency department complaining of shortness of breath. On exam his lungs are clear. No respiratory distress. He has normal oxygen saturation. Chest x-ray is normal. EKG, troponin, BNP and CBC are normal. Patient has a mildly elevated blood sugar at 290. He has been sleeping in the ER. He is stable for discharge home with outpatient follow-up. Amount and/or Complexity of Data Reviewed Clinical lab tests: ordered and reviewed Tests in the radiology section of CPT: ordered and reviewed Decide to obtain previous medical records or to obtain history from someone other than the patient: yes Review and summarize past medical records: yes Independent visualization of images, tracings, or specimens: yes Patient Progress Patient progress: stable Scoring Tools: No data recorded Diagnosis/Impression: ICD-10-CM ICD-9-CM 1. SOB (shortness of breath) R06.02 786.05 Disposition/Condition: ED Disposition ED Disposition Condition Comment Disch - Home Stable Discharge Medications: Patient's Medications START taking these medications No medications on file CONTINUE taking these medications which have NOT CHANGED DIVALPROEX (DEPAKOTE) 500 MG EC TABLET Take 1 tablet by mouth every 12 (twelve) hours. FLUPHENAZINE DECANOATE 25 MG/ML INJECTION 12.5 mg by Intramuscular route every 14 (fourteen) days. GABAPENTIN (NEURONTIN) 100 MG CAPSULE Take 1 capsule by mouth 3 (three) times daily. LITHIUM ASPARTATE ORAL Take by mouth. METFORMIN 500 MG TABLET Take 1 tablet by mouth 2 (two) times daily. RISPERIDONE 0.25 MG TBDL Take 0.25 mg by mouth every evening. START taking Modified Medications as Prescribed No medications on file STOP taking these medications No medications on file Follow-up: Contact information for follow-up Terrence Liang MD Specialty: FM-FAMILY MEDICINE Relationship: PCP - General Electronically signed by: Yuniel Nieves MD 03/01/2020 4:17 AM documented in this encounter Miscellaneous Notes ED Nurse Note - Satnam Reese RN - 03/01/2020 5:45 AM CSTDischarge education provided and discussed in detail with pt. Provided pt education regarding disease process, home care and need for F/u with referred provider. PIV dc'd, catheter intact, bleeding controlled and dressing intact. Advised to seek further medical for any new/prolonged/worse/concerning symptoms; advised to follow up with PCP as instructed. Pt verbalized understanding of all information provided. Denies any further questions at this time. Resp even and unlabored. NAD noted. Pt ambulated to [facility]. D Nurse Note - Satnam Reese RN - 03/01/2020 5:00 AM CSTBlood collected and sent to lab. Patient updated on plan of care. documented in this encounter Plan of Treatment Name Type Priority Associated Diagnoses Date/Ti me EKG-12 LEAD ROUTINE HEART STATION STAT SOB (shortness of 4:16 AM ONCE breath) [employer] Name Type Priority Associated Diagnoses Order S chedule EKG-12 LEAD ROUTINE HEART STATION STAT SOB (shortness of ON CE for 1 Occurrences ONCE breath) starting 2019 until 0 Health Maintenance Due Date Last Done Comments PNEUMOCOCCAL 0-64 YEARS COMBINED SERIES (1 of 1 - 10/04/1981 PPSV23) Depression Screening 1987 DTaP,Tdap,and Td Vaccines (1 - Tdap) 10/04/1994 INFLUENZA VACCINE (#1) 2019 documented as of this encounter Procedures Procedure Name Priority Date/Time Associated Diagnosis Comme nts N-TERMINAL PRO-BNP STAT 03/01/2020 4:31 AM SOB (shortness of Results for this [employer] breath) procedure are i n the results section. CBC WITH DIFF STAT 03/01/2020 4:31 AM SOB (shortness of Re sults for this [employer] breath) procedure are i n the results section. BASIC METABOLIC STAT 03/01/2020 4:31 AM SOB (shortness of Results for this PANEL (NA, K, CL, [employer] breath) procedure are in CO2, GLUCOSE, BUN, the resul ts CREATININE, CA) section. HEPATIC FUNCTION STAT 03/01/2020 4:31 AM SOB (shortness of Results for this PANEL (52127) [employer] breath) procedure are in (ALB,T.PRO,BILI the results T,BU/BC,ALT,AST,ALK section. PHOS) TROPONIN I STAT 03/01/2020 4:31 AM SOB (shortness of Res ults for this [employer] breath) procedure are i n the results section. XR CHEST 1 VW STAT 03/01/2020 4:29 AM SOB (shortness of Re sults for this [employer] breath) procedure are i n the results section. documented in this encounter Results N-TERMINAL PRO-BNP (03/01/2020 4:31 AM [employer]) Pathologist Sig nature NT-proBNP 25 <=125 pg/mL [facility] [[email or web address]] LABORATORY SERVICES-[facility] Specimen Blood - VENOUS Narrative Performed At [facility] has been reported to cause a [facility] [[email or web address]] LABORATORY SE RVICES-[facility] negative bias, interpret results relative to patient's use of biotin. Performing Organization Address City/State/Zipcode Phone Number [facility] [[email or web address]] LABORATORY CLIA: [id number] [place], [place] [id number] [facility] [address] Troponin I (03/01/2020 4:31 AM [employer]) Pathologist Sig minoo TROPONIN I 0.009 <=0.034 ng/mL [facility] [[email or web address]] LABORATORY SERVICES-[facility] Specimen Blood - VENOUS Narrative Performed At Equal or Less than 0.034 ng/ml---Normal [facility] [[email or web address]] LABORATORY [facility] Note: Cardiac troponin begins to rise 3-4 CAMPUS hours after the onset of ischemia. Repeat in 4-6 hours if the sample was drawn within 3-4 hours of the onset of the symptom and found normal. Between 0.035 and 0.120 ng/mL--- Borderline. Questionable myocardial injury or necrosis Note: Serial measurement may be necessary to confirm or exclude the diagnosis of myocardial injury or necrosis; Clinical correlation (symptoms, EKGs, imaging studies, and others) required; Repeat in 4-6 hours if clinically indicated. Equal or Higher than 0.121 ng/mL---Abnormal. Myocardial Injury or Necrosis Likely Biotin has been reported to cause a negative bias, interpret results relative to patient's use of biotin. Performing Organization Address City/State/Zipcode Phone Number [facility] [[email or web address]] LABORATORY CLIA: [id number] [place] [address] [facility] [address] Hepatic Function Panel (ALB, T.PRO, BILI T, BU/BC, ALT, AST, ALK PHOS) (03/01/2020 4:31 AM [employer]) Pathologist Sig formerly [facility], 1928–1983 TOTAL BILI 0.4 0.1 - 1.1 mg/dL [facility] [[email or web address] BILI UNCON 0.2 0.1 - 1.1 mg/dL [facility] [[email or web address]] LABORATORY [facility] BILI CONJ 0.0 0.0 - 0.3 mg/dL [facility] [[email or web address]] LABORATORY [facility] T PROTEIN 7.4 6.3 - 8.2 g/dL [facility] [[email or web address]] LABORATORY [facility] ALBUMIN 4.1 3.5 - 5.0 g/dL [facility] [[email or web address]] LABORATORY SERVICES-[facility] ALK PHOS 83 34 - 122 U/L [email or web address] LABORATORY SERVICES-[facility] ALTv 21 5 - 50 U/L [email or web address] LABORATORY [facility] AST(SGOT) 30 13 - 40 U/L [facility] [[email or web address]] LABORATORY [facility] Specimen Blood - VENOUS Performing Organization Address City/State/Zipcode Phone Number [facility] [[email or web address]] LABORATORY CLIA: [id number] [place] [address] [facility] [address] Basic Metabolic Panel (NA, K, CL, CO2, GLUCOSE, BUN, CREATININE, CA) (03/01/2020 4:31 AM [employer]) NA 133 (L) 135 - 145 [facility] [[email or web address]] LABORATORY mmol/L [facility] K 4.6Comment: 3.5 - 5.0 [facility] [[email or web address]] LABORATORY Slight hemolysis mmol/L [facility] CL 96 (L) 98 - 108 [facility] [[email or web address]] LABORATORY mmol/L [facility] CO2 TOTAL 29 23 - 31 [facility] [[email or web address]] LABORATORY mmol/L [facility] AGAP 8 2 - 16 [facility] [[email or web address]] LABORATORY [facility] BUN 13Comment: Slight 7 - 23 mg/dL [facility] [[email or web address]] LABORATORY hemolysis [facility] GLUCOSE 290 (H) 70 - 110 [facility] [[email or web address]] LABORATORY mg/dL [facility] CREATININE 0.66 0.60 - 1.25 [facility] [[email or web address]] LABORATORY mg/dL [facility] CALCIUM 9.7 8.6 - 10.6 [facility] [[email or web address]] LABORATORY mg/dL [facility] eGFR Calculation 131.1 mL/min/1.73m2 [facility] (Non- [facility] eGFR Calculation 158.9 mL/min/1.73m2 [facility] [[email or web address]] LABORATORY () [facility] Specimen Blood - VENOUS Narrative Performed At Association of Glomerular Filtration Rate [facility] (GFR) and Staging of Kidney Disease* SHERMAN + + --+ + | GFR (mL/min/1.73 m2) | With Kidney Damage | Without Kidney Damage + + --+ + | >90 | Stage one | Normal + + --+ + | 60-89 | Stage two | Decreased GFR + + --+ + | 30-59 | Stage three | Stage three + + --+ + | 15-29 | Stage four | Stage four + + --+ + | <15 (or dialysis) | Stage five | Stage five + + --+ + *Each stage assumes the associated GFR level has been in effect for at least three months. Stages 1 to 5, with or without kidney disease, indicate chronic kidney disease. Notes: Determination of stages one and two (with eGFR >59mL/min/1.73 m2) requires estimation of kidney damage for at least three months as defined by structural or functional abnormalities of the kidney, manifested by either: Pathological abnormalities or Markers of kidney damage (including abnormalities in the composition of the blood or urine or abnormalities in imaging tests). Performing Organization Address City/State/Zipcode Phone Number [facility] [[email or web address]] LABORATORY CLIA: [id number] [place] [address] [facility] [address] CBC with Differential (03/01/2020 4:31 AM [employer]) [facility] WBC 9.23 4.20 - 10.70 [facility] 10*3/L [facility] RBC 4.60 4.26 - 5.52 [facility] 10*6/L [facility] HGB 14.5 12.2 - 16.4 [facility] g/dL [facility] HCT 40.9 38.4 - 49.3 % [facility] MCV 88.9 81.7 - 95.6 fL [facility] MCH 31.5 26.1 - 32.7 pg [facility] MCHC 35.5 (H) 31.2 - 35.0 [facility] g/dL [facility] RDW-SD 38.4 (L) 38.5 - 51.6 fL [facility] RDW-CV 11.9 (L) 12.1 - 15.4 % [facility] PLT 251 150 - 328 [facility] 10*3/L [facility] MPV 9.8 9.8 - 13.0 fL [facility] NRBC/100 WBC 0.0 0.0 - 10.0 /100 [facility] WBCs [facility] NRBC x10^3 <0.01 10*3/L [facility] GRAN MAT (NEUT) % 58.0 % [facility] IMM GRAN % 0.30 % [facility] LYMPH % 28.8 % [facility] MONO % 10.6 % [facility] EOS % 1.8 % [facility] BASO % 0.5 % [facility]ORAT[facility] SERVICES-[facility] GRAN MAT x10^3(ANC) 5.34 1.99 - 6.95 [facility] 10*3/uL SERVICES-[facility] IMM GRAN x10^3 0.03 0.00 - 0.06 [facility] 10*3/uL [facility] LYMPH x10^3 2.66 1.09 - 3.23 [facility] 10*3/uL SERVICES-[facility] MONO x10^3 0.98 0.36 - 1.02 [facility] 10*3/uL SERVICES-[facility] EOS x10^3 0.17 0.06 - 0.53 [facility] 10*3/uL SERVICES-[facility] BASO x10^3 0.05 0.01 - 0.09 [facility] 10*3/uL [facility] Specimen Blood - VENOUS Performing Organization Address City/State/Zipcode Phone Number [facility] [[email or web address]] LABORATORY CLIA: [id number] [place] [address] [facility] [address] Chest 1 View (03/01/2020 4:29 AM [employer]) Specimen Impressions Performed At Impression: PACS/VR/DOSE No radiographic evidence of acute cardio pulmonary disease. RL: [id number] AFC: [id number] 20 4:40 AM Narrative Performed At Examination: Chest one view (portable fr ontal) PACS/VR/DOSE Ordering Physician: YUNIEL NIEVES History: SOB Comparison: 01/24/2020 Findings: Single portable view of the est is submitted for review. Pulmonary vascularity appears normal. Th e lungs are clear. There is no significant pleural effusion evident. There is no sign ificant pneumothorax evident. Heart size is normal. Procedure Note [facility], Radiant Results Inft User - 2019 4:41 AM [employer] Examination: Chest one view (portable frontal) Ordering Physician: YUNIEL NIEVES History: SOB Comparison: 01/24/2020 Findings: Single portable view of the est is submitted for review. Pulmonary vascularity appears normal. Th e lungs are clear. There is no significant pleural effusion evident. Th ere is no significant pneumothorax evident. Heart size is normal. IMPRESSION Impression: No radiographic evidence of acute cardio pulmonary disease. RL: [id number] AFC: [id number] Performing Organization Address City/State/Zipcode Phone Number PACS/VR/DOSE documented in this encounter Visit Diagnoses Diagnosis SOB (shortness of breath) - Primary Shortness of breath documented in this encounter Administered Medications Medication Order MAR Action Action Date Dose Rate Site NaCl 0.9% (NS) bolus New Bag 03/01/2020 5:00 AM [employer] 1,000 mL 99 9 mL/hr infusion 1,000 mL at 999 mL/hr, 1,000 mL, IV Infusion, ONCE, 1 dose, 03/01/20 at 0430, JEANE documented in this encounter Insurance Payer Benefit Plan / Subscriber ID Effective Phone Address T ype Group Dates SYDNI TROY [id number] 2016-Consuelo HO Medic aid HEALTHCARE - [facility] [id number] MANAGED MEDICAID [place], [place] [address] documented as of this encounter
--- OUTSIDE RECORDS SUMMARY | 2020-04-27 19:37 | XMS REPORT | Summary of Care ---
:1975 Author Organization [facility] - [facility] Address [address] [place] [address] Care Team Providers Name Role Phone Terrence Liang MD Primary Care Provider Unavailable Reason for Referral Radiology Services (STAT) Status Reason Specialty Diagnoses / Referred By Referred To Procedures Contact Contact New Request Diagnostic Diagnoses Chest pain, unspecified type Kendall Watson, Radiology Procedures Chest 1 View DO [address] [address] [place] [address] Reason for Visit Reason Comments Chest Pain Auth/Cert Status Reason Specialty Diagnoses / Referred By Referred To Procedures Contact Contact Emergency Medicine [facility] Em ergency Dept [address] [place] [address] Encounter Details Date Type Department Care Team Description 03/17/2020 - Emergency [facility] Kendall Watson DO Chest pain, unspecified type (Primary Dx ); 03/18/[address] Hyperglycemia; [address] [place], [place] [address] [id number] [place], [place] [phone] [address] [phone] Allergies No Known Allergiesdocumented as of this encounter (statuses as of 03/18/2020) Medications Medication Sig Dispensed Refills Start Date [...] as of this encounter (statuses as of 03/18/2020) Active Problems No known active problemsdocumented as of this encounter (statuses as of 03/18/2020) Social History Tobacco Use Types Packs/Day Years Used Date Never Assessed Sex Assigned at Date Recorded Not on file COVID-19 Exposure Response Date Recorded In the last month, have you been in contact with No / Unsure 03/17/2020 10:50 PM RELAY RECORD CLERK someone who was confirmed or suspected to have Coronavirus / COVID-19? documented as of this encounter Last Filed Vital Signs Vital Sign Reading Time Taken Comments Blood Pressure 127/68 03/18/2020 3:40 AM RELAY RECORD CLERK Pulse 70 03/18/2020 3:40 AM RELAY RECORD CLERK Temperature 36.7 C (98 F) 03/17/2020 10:57 PM RELAY RECORD CLERK Respiratory Rate 18 03/18/2020 3:40 AM RELAY RECORD CLERK Oxygen Saturation 96% 03/18/2020 3:40 AM RELAY RECORD CLERK Inhaled Oxygen Concentration - - Weight 81.2 kg (179 lb) 03/17/2020 10:57 PM RELAY RECORD CLERK Height 162.6 cm (5' 4") 03/17/2020 10:57 PM RELAY RECORD CLERK Body Mass Index 30.73 03/17/2020 10:57 PM RELAY RECORD CLERK documented in this encounter Discharge Instructions AttachmentsThe following attachments cannot be sent through Care Everywhere. Hyperglycemia (High Blood Sugar) (Bruneian)documented in this encounter ED Notes Rakel Estrella RN - 03/17/2020 10:50 PM CSTBryn Camargo is a 44 year old male who presents to ED with complaints of Chest pain 01/16 x4-5 days. Pt states that it is constant. Pt states feet and back also hurts. Pt states he has chronic issues that are "bothering him, like diabetes". Pt states he is not currently taking any of his medications. Pt denies drug use at this time. 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 He is homelessand frequently has suicidal thoughts but is denying these thoughts today. Past Medical History/Immunizations: Past Medical History: Diagnosis Date DM (diabetes mellitus) HTN (hypertension) Schizophrenia Tetanus received in last 5 years: Yes Childhood immunizations: Up-to-date Allergies: No Known Allergies Past Social History: Substance & Sexual Activity No substance use or sexual activity history on file. Past Surgical History: History reviewed. No pertinent surgical history. Review of Systems: Review of Systems Constitutional: Positive for activity change and appetite change. HENT: Negative. Eyes: Negative. Respiratory: Negative. Breasts: Negative. Cardiovascular: Negative. Gastrointestinal: Negative. Genitourinary: Negative. Musculoskeletal: Negative. Skin: Negative. Neurological: Positive for weakness and light-headedness. Psychiatric/Behavioral: Negative. All other systems reviewed and are negative. Endocrine: Endocrine negative Physical Exam: ED Triage Vitals Weight 03/17/202250 81.2 kg (179 lb) Actual or estimated 03/17/202250 Estimated by patient/family report Height 03/17/202250 1.626 m (5' 4") BP 03/17/207 (!) 164/94 Pulse 03/17/202256 93 Resp 03/17/202256 16 Temp 03/17/202256 36.7 C (98 F) Temp source 03/17/202256 Oral SpO2 03/17/202256 95 % Measured on 03/17/202256 Room air Physical Exam Vitals signs and nursing note reviewed. Constitutional: Appearance: Normal appearance. He is normal weight. HENT: Head: Normocephalic and atraumatic. Right Ear: Tympanic membrane normal. Left Ear: Tympanic membrane normal. Nose: Nose normal. Mouth/Throat: Mouth: Mucous membranes are moist. Pharynx: Oropharynx is clear. Eyes: Extraocular Movements: Extraocular movements intact. Conjunctiva/sclera: Conjunctivae normal. Pupils: Pupils are equal, round, and reactive to light. Neck: Musculoskeletal: Normal range of motion and neck supple. Cardiovascular: Rate and Rhythm: Normal rate and regular rhythm. Pulses: Normal pulses. Heart sounds: Normal heart sounds. Pulmonary: Effort: Pulmonary effort is normal. Breath sounds: Normal breath sounds. Abdominal: General: Abdomen is flat. Bowel sounds are normal. Palpations: Abdomen is soft. Musculoskeletal: Normal range of motion. Skin: Capillary Refill: Capillary refill takes less than 2 seconds. Neurological: General: No focal deficit present. Mental Status: He is alert and oriented to person, place, and time. Mental status is at baseline. Psychiatric: Mood and Affect: Mood normal. Behavior: Behavior normal. Thought Content: Thought content normal. Judgment: Judgment normal. Radiology: Hospital Encounter on 03/17/20 Chest 1 View Narrative XR CHEST 1 VW HISTORY: Chest pain Ordering physician: KENDALL WATSON COMPARISON: Chest x-ray from 01/24/2020. RESULT: There is no focal consolidation. There is no pleural effusion. There is no pneumothorax. The cardiac silhouette is unremarkable in size and configuration. Impression No acute cardiopulmonary process. RL: [id number] AFC: [id number] Lab Results (24h): Recent Results (from the past 24 hour(s)) CBC with Differential Collection Time: 03/17/20 11:52 PM Result Value Ref Range WBC 8.38 4.20 - 10.70 10*3/L RBC 4.94 4.26 - 5.52 10*6/L HGB 15.7 12.2 - 16.4 g/dL HCT 43.0 38.4 - 49.3 % MCV 87.0 81.7 - 95.6 fL MCH 31.8 26.1 - 32.7 pg MCHC 36.5 (H) 31.2 - 35.0 g/dL RDW-SD 38.1 (L) 38.5 - 51.6 fL RDW-CV 11.9 (L) 12.1 - 15.4 % PLT 252 150 - 328 10*3/L MPV 10.6 9.8 - 13.0 fL NRBC/100 WBC 0.0 0.0 - 10.0 /100 WBCs NRBC x10^3 <0.01 10*3/L GRAN MAT (NEUT) % 50.5 % IMM GRAN % 0.40 % LYMPH % 35.7 % MONO % 9.1 % EOS % 3.3 % BASO % 1.0 % GRAN MAT x10^3(ANC) 4.24 1.99 - 6.95 10*3/uL IMM GRAN x10^3 0.03 0.00 - 0.06 10*3/uL LYMPH x10^3 2.99 1.09 - 3.23 10*3/uL MONO x10^3 0.76 0.36 - 1.02 10*3/uL EOS x10^3 0.28 0.06 - 0.53 10*3/uL BASO x10^3 0.08 0.01 - 0.09 10*3/uL Basic Metabolic Panel (NA, K, CL, CO2, GLUCOSE, BUN, CREATININE, CA) Collection Time: 03/17/20 11:52 PM Result Value Ref Range NA 129 (L) 135 - 145 mmol/L K 4.1 3.5 - 5.0 mmol/L CL 94 (L) 98 - 108 mmol/L CO2 TOTAL 24 23 - 31 mmol/L AGAP 11 2 - 16 BUN 11 7 - 23 mg/dL GLUCOSE 416 (H) 70 - 110 mg/dL CREATININE 0.64 0.60 - 1.25 mg/dL CALCIUM 9.4 8.6 - 10.6 mg/dL eGFR Calculation (Non-) 135.9 mL/min/1.73m2 eGFR Calculation () 164.7 mL/min/1.73m2 Hepatic Function Panel (ALB, T.PRO, BILI T, BU/BC, ALT, AST, ALK PHOS) Collection Time: 03/17/20 11:52 PM Result Value Ref Range TOTAL BILI 0.2 0.1 - 1.1 mg/dL BILI UNCON 0.1 0.1 - 1.1 mg/dL BILI CONJ 0.0 0.0 - 0.3 mg/dL T PROTEIN 7.4 6.3 - 8.2 g/dL ALBUMIN 4.3 3.5 - 5.0 g/dL ALK PHOS 131 (H) 34 - 122 U/L ALTv 30 5 - 50 U/L AST(SGOT) 23 13 - 40 U/L Troponin I Collection Time: 03/17/20 11:52 PM Result Value Ref Range TROPONIN I 0.005 <=0.034 ng/mL Urinalysis Collection Time: 03/17/20 11:52 PM Result Value Ref Range APPEARANCE Clear Clear COLOR Straw (A) Yellow PH 5.0 4.8 - 8.0 SP GRAVITY 1.024 1.003 - 1.030 GLU U QUAL 500 mg/dL (A) Normal BLOOD Negative Negative KETONES Negative Negative PROTEIN Negative Negative UROBILIN Normal Normal BILIRUBIN Negative Negative NITRITE Negative Negative LEUK MONICO Negative Negative RBC/HPF <1 0 - 3 HPF WBC/HPF <1 0 - 5 HPF BACTERIA Negative Negative POCT GLUCOSE (AUTOMATED) Collection Time: 03/18/20 1:44 AM Result Value Ref Range POCT GLU 273 (H) 70 - 110 mg/dL EKG: nsr rate 97 nostemi normal axis Orders and Treatments: Orders Placed This Encounter Procedures Chest 1 View CBC with Differential Basic Metabolic Panel (NA, K, CL, CO2, GLUCOSE, BUN, CREATININE, CA) Hepatic Function Panel (ALB, T.PRO, BILI T, BU/BC, ALT, AST, ALK PHOS) Troponin I Urinalysis POCT GLUCOSE (AUTOMATED) Orders Placed This Encounter Medications NaCl 0.9% (NS) bolus infusion 1,000 mL risperiDONE (RISPERDAL) tablet 0.25 mg aspirin tablet 325 mg insulin regular human (HUMULIN R) injection 5 Units ED COURSE Patient give 1 liter ns bolus and 5 units insuin and repeat blood sugar 270 MDM: Coding Scoring Tools: No data recorded Diagnosis/Impression: ICD-10-CM ICD-9-CM 1. Chest pain, unspecified type R07.9 786.50 2. Hyperglycemia R73.9 790.29 3. Dizziness R42 780.4 Disposition/Condition: ED Disposition ED Disposition Condition Comment [...] Relationship: PCP - General Electronically signed by: Kendall Watson DO 03/18/2020 3:38 AM documented in this encounter Miscellaneous Notes ED Nurse Note - Altagracia Monet RN - 03/18/2020 3:45 AM CSTPatient given printed and verbal discharge instructions regarding chest pain, hydration encouraged. Prescriptions provided. Discussed tylenol/ibuprofen every 4-6 hours as needed. Patient verbalized understanding of instructions. Patient is awake, alert, and oriented, respirations regular and unlabored, skin is warm and dry, color appropriate for race, moves all extremities. Encouraged to follow up with primary physician. Advised to seek medical attentions for new/prolonged/worsening of symptoms. Vital signs are stable. No adverse reactions to medications given in ER noted upon discharge. documented in this encounter Plan of Treatment Name Type Priority Associated Diagnoses Date/Ti me EKG-12 LEAD ROUTINE HEART STATION STAT Chest pain, unspecif ied 03/17/2020 10:57 PM ONCE type RELAY RECORD CLERK EKG-12 LEAD ROUTINE HEART STATION STAT Chest pain, unspecif ied 03/17/2020 11:43 PM ONCE type RELAY RECORD CLERK Name Type Priority Associated Diagnoses Order S chedule EKG-12 LEAD HEART STATION STAT Chest pain, ONCE for 1 Occ urrences ROUTINE ONCE unspecified type starting until 0 EKG-12 LEAD HEART STATION STAT Chest pain, ONCE for 1 Occ urrences ROUTINE ONCE unspecified type starting until 0 Health Maintenance Due Date Last Done Comments PNEUMOCOCCAL 0-64 YEARS COMBINED SERIES (1 of 1 - 10/04/1981 PPSV23) Depression Screening 1987 DTaP,Tdap,and Td Vaccines (1 - Tdap) 10/04/1994 INFLUENZA VACCINE (#1) 2019 documented as of this encounter Procedures Procedure Name Priority Date/Time Associated Diagnosis Comme nts POCT GLUCOSE Routine 03/18/2020 1:44 Results for this (AUTOMATED) AM RELAY RECORD CLERK procedure are i n the results section. XR CHEST 1 VW STAT 03/18/2020 12:02 Chest pain, Results fo r this AM RELAY RECORD CLERK unspecified type procedure a re in the results section. URINALYSIS STAT 03/17/2020 11:52 Chest pain, Results for this PM RELAY RECORD CLERK unspecified type procedure a re in the results section. CBC WITH DIFF STAT 03/17/2020 11:52 Chest pain, Results fo r this PM RELAY RECORD CLERK unspecified type procedure a re in the results section. BASIC METABOLIC STAT 03/17/2020 11:52 Chest pain, Results for this PANEL (NA, K, CL, PM RELAY RECORD CLERK unspecified type proced ure are in CO2, GLUCOSE, BUN, the resul ts CREATININE, CA) section. HEPATIC FUNCTION STAT 03/17/2020 11:52 Chest pain, Results for this PANEL (94868) PM RELAY RECORD CLERK unspecified type procedure are in (ALB,T.PRO,BILI the results T,BU/BC,ALT,AST,ALK section. PHOS) TROPONIN I STAT 03/17/2020 11:52 Chest pain, Results for this PM RELAY RECORD CLERK unspecified type procedure a re in the results section. documented in this encounter Results POCT GLUCOSE (AUTOMATED) (03/18/2020 1:44 AM RELAY RECORD CLERK) Pathologist Sig nature POCT GLU 273 (H) 70 - 110 mg/dL [facility] Specimen Blood Performing Organization Address City/State/Zipcode Phone Number [facility] CLIA: [id number] [place] [address] Chest 1 View (03/18/2020 12:02 AM RELAY RECORD CLERK) Specimen Impressions Performed At No acute cardiopulmonary process. PACS/VR/DOSE RL: [id number] AFC: [id number] Electronically signed by Hernan Lock MD at 2019 12:10 AM Narrative Performed At XR CHEST 1 VW PACS/VR/DOSE HISTORY: Chest pain Ordering physician: KENDALL WATSON COMPARISON: Chest x-ray from 01/24/2020. RESULT: There is no focal consolidation. There is no pleural e ffusion. There is no pneumothorax. The cardiac silhouette is unremarkable i n size and configuration. Procedure Note [facility], Radiant Results Inft User - 2019 12:11 AM RELAY RECORD CLERK XR CHEST 1 VW HISTORY: Chest pain Ordering physician: KENDALL WATSON COMPARISON: Chest x-ray from 01/24/2020. RESULT: There is no focal consolidation. There i s no pleural effusion. There is no pneumothorax. The cardiac silhouette is unremarkable i n size and configuration. IMPRESSION No acute cardiopulmonary process. RL: [id number] AFC: [id number] Performing Organization Address City/State/Zipcode Phone Number PACS/VR/DOSE Urinalysis (03/17/2020 11:52 PM RELAY RECORD CLERK) Pathologist Sig nature APPEARANCE Clear Clear [facility] COLOR Straw (A) Yellow [facility] PH 5.0 4.8 - 8.0 [facility] SP GRAVITY 1.024 1.003 - 1.030 [facility] GLU U QUAL 500 mg/dL (A) Normal [facility] BLOOD Negative Negative [facility] KETONES Negative Negative [facility] PROTEIN Negative Negative [facility] UROBILIN Normal Normal [facility] BILIRUBIN Negative Negative [facility] NITRITE Negative Negative [facility] LEUK MONICO Negative Negative [facility] RBC/HPF <1 0 - 3 HPF [facility] WBC/HPF <1 0 - 5 HPF [facility] BACTERIA Negative Negative [facility] Specimen Urine - URINE, CLEAN CATCH Performing Organization Address [facility]/Zipcode Phone Number [facility] CLIA: [id number] [place] [address] [facility] [address] Troponin I (03/17/2020 11:52 PM RELAY RECORD CLERK) Pathologist Sig [facility] TROPONIN I 0.005 <=0.034 ng/mL [facility] Specimen Blood - VENOUS Narrative Performed At Equal or Less than 0.034 ng/ml---Normal [facility] Note: Cardiac troponin begins to rise 3-4 [...] patient's use of biotin. Performing Organization Address [facility] Phone Number [facility] CLIA: [id number] [place] [address] [facility] [address] Hepatic Function Panel (ALB, T.PRO, BILI T, BU/BC, ALT, AST, ALK PHOS) (03/17/2020 11:52 PM RELAY RECORD CLERK) Pathologist Sig nature TOTAL BILI 0.2 0.1 - 1.1 mg/dL [facility] BILI UNCON 0.1 0.1 - 1.1 mg/dL [facility] BILI CONJ 0.0 0.0 - 0.3 mg/dL [facility] T PROTEIN 7.4 6.3 - 8.2 g/dL [facility] ALBUMIN 4.3 3.5 - 5.0 g/dL [facility] ALK PHOS 131 (H) 34 - 122 U/L [facility] ALTv 30 5 - 50 U/L [facility] AST(SGOT) 23 13 - 40 U/L [facility] Specimen Blood - VENOUS Performing Organization Address City/State/Zipcode Phone Number [facility] CLIA: [id number] [place] [address] [facility] [address] Basic Metabolic Panel (NA, K, CL, CO2, GLUCOSE, BUN, CREATININE, CA) (03/17/2020 11:52 PM RELAY RECORD CLERK) Pathologist [facility] NA 129 (L) 135 - 145 [facility] mmol/L [facility] K 4.1 3.5 - 5.0 [facility] mmol/L [facility] CL 94 (L) 98 - 108 mmol/L [facility] CO2 TOTAL 24 23 - 31 mmol/L [facility] AGAP 11 2 - 16 [facility] BUN 11 7 - 23 mg/dL [facility] GLUCOSE 416 (H) 70 - 110 mg/dL [facility] CREATININE 0.64 0.60 - 1.25 [facility] mg/dL [facility] CALCIUM 9.4 8.6 - 10.6 [facility] mg/dL [facility] eGFR Calculation 135.9 mL/min/1.73m2 [facility] (Non- [facility]) [place] eGFR Calculation 164.7 mL/min/1.73m2 [facility] () [facility] Specimen Blood - VENOUS Narrative Performed At Association of Glomerular Filtration Rate [facility] (GFR) and Staging of Kidney Disease* CAMPUS + + --+ + | GFR (mL/min/1.73 [...] tests). Performing Organization Address City/State/Zipcode Phone Number [facility] CLIA: [id number] [place] [address] [facility] [address] CBC with Differential (03/17/2020 11:52 PM RELAY RECORD CLERK) [facility] WBC 8.38 4.20 - 10.70 [facility] 10*3/L [facility] RBC 4.94 4.26 - 5.52 [facility] 10*6/L [facility] HGB 15.7 12.2 - 16.4 [facility] g/dL [facility] HCT 43.0 38.4 - 49.3 % [facility] MCV 87.0 81.7 - 95.6 fL [facility] MCH 31.8 26.1 - 32.7 pg [facility] MCHC 36.5 (H) 31.2 - 35.0 [facility] g/dL [facility] RDW-SD 38.1 (L) 38.5 - 51.6 fL [facility] RDW-CV 11.9 (L) 12.1 - 15.4 % [facility] PLT 252 150 - 328 [facility] 10*3/L [facility] MPV 10.6 9.8 - 13.0 fL [facility] NRBC/100 WBC 0.0 0.0 - 10.0 /100 [facility] WBCs [facility] NRBC x10^3 <0.01 10*3/L [facility] GRAN MAT (NEUT) % 50.5 % [facility] IMM GRAN % 0.40 % [facility] LYMPH % 35.7 % [facility] MONO % 9.1 % [facility] EOS % 3.3 % [facility] BASO % 1.0 % [facility] GRAN MAT x10^3(ANC) 4.24 1.99 - 6.95 [facility] 10*3/uL [facility] IMM GRAN x10^3 0.03 0.00 - 0.06 [facility] 10*3/uL [facility] LYMPH x10^3 2.99 1.09 - 3.23 [facility] 10*3/uL [facility] MONO x10^3 0.76 0.36 - 1.02 [facility] 10*3/uL [facility] EOS x10^3 0.28 0.06 - 0.53 [facility] 10*3/uL [facility] BASO x10^3 0.08 0.01 - 0.09 [facility] 10*3/uL [facility] Specimen Blood - VENOUS Performing Organization Address City/State/Zipcode Phone Number [facility] CLIA: [id number] [place] [address] [facility] [address] documented in this encounter Visit Diagnoses Diagnosis Chest pain, unspecified type - Primary Hyperglycemia Other abnormal glucose Dizziness Dizziness and giddiness documented in this encounter Administered Medications Medication Order MAR Action Action Date Dose Rate Site risperiDONE (RISPERDAL) tablet 0.25 mg 0.25 mg, Oral, BID, First dose on Susana at 0800, Until Discontinued, Routine Medication Order MAR Action Action Date Dose Rate Site aspirin tablet 325 mg Given 03/18/2020 12:22 AM RELAY RECORD CLERK 325 mg 325 mg, Oral, ONCE, 1 dose, [place] 03/18/20 at 0045, STAT insulin regular human (HUMULIN R) injection Given 03/09 12:44 AM RELAY RECORD CLERK 5 Units 5 Units 5 Units, Slow IV Push, ONCE, 1 dose, [place]ana 03/18/20 at 0145, STAT NaCl 0.9% (NS) bolus infusion New Bag 03/18/2020 12:23 AM RELAY RECORD CLERK 1,000 mL 999 mL/hr 1,000 mL at 999 mL/hr, 1,000 mL, IV Infusion, ONCE, 1 dose, [facility] 03/17/20 at 2345, JEANE documented in this encounter Insurance Payer Benefit Plan / Subscriber ID Effective Phone Address T ype Group Dates SYDNI TROY [id number] 2016-Consuelo HO Medic aid HEALTHCARE - [facility] [id number] MANAGED MEDICAID [place], [place]ID [place] documented as of this encounter
--- OUTSIDE RECORDS SUMMARY | 2020-04-27 19:37 | XMS REPORT | Summary of Care ---
:1975 Author Organization [facility] Address [address] [place] [address] Care Team Providers Name Role Phone Terrence Liang MD Primary Care Provider Unavailable Reason for Visit Reason Comments Suicidal ideation Hallucinations Auth/Cert Status Reason Specialty Diagnoses / Referred By Referred To Procedures Contact Contact Emergency Medicine [facility] Em ergency Dept [address] [place] [address] Encounter Details Date Type Department Care Team Description 02/21/2020 - Emergency [facility]Emergency Sam Celis Suicidal b ehavior without attempted self-injury (Primary Dx); 02/22/2020 Department MD Morteza Suicidal ideation; [id number] Hyperglycemia [facility] [id number] [facility] [address] [place], [place] [address] [phone] Allergies No Known Allergiesdocumented as of this encounter (statuses as of 02/22/2020) Medications Medication Sig Dispensed Refills Start Date [...] as of this encounter (statuses as of 02/22/2020) Active Problems No known active problemsdocumented as of this encounter (statuses as of 02/22/2020) Social History Tobacco Use Types Packs/Day Years Used Date Never Assessed Sex Assigned at Date Recorded Not on file COVID-19 Exposure Response Date Recorded In the last month, have you been in contact with No / Unsure 02/20/2020 9:55 PM RECREATION ASSISTANT someone who was confirmed or suspected to have Coronavirus / COVID-19? documented as of this encounter Last Filed Vital Signs Vital Sign Reading Time Taken Comments Blood Pressure 124/63 02/22/2020 1:30 AM RECREATION ASSISTANT Pulse 90 02/22/2020 1:30 AM RECREATION ASSISTANT Temperature 36.6 C (97.9 F) 02/22/2020 1:30 AM RECREATION ASSISTANT Respiratory Rate 16 02/22/2020 1:30 AM RECREATION ASSISTANT Oxygen Saturation 98% 02/22/2020 1:30 AM RECREATION ASSISTANT Inhaled Oxygen Concentration - - Weight 81.2 kg (179 lb) 02/21/2020 7:13 PM RECREATION ASSISTANT Height 162.6 cm (5' 4") 02/21/2020 7:13 PM RECREATION ASSISTANT Body Mass Index 30.73 02/21/2020 7:13 PM RECREATION ASSISTANT documented in this encounter ED Notes Yuniel Cuevas RN - 02/21/2020 7:11 PM CSTPt to triage ambulating well c/o hallucinations, hearing voices of demons that want to hurt him or have him hurt himself. Patient states need his bipolar meds but has no dr to get them from. Pt denies CP, SOB, NVD and ABD pain at this time, positive ERIKA x 4, positive R&D pulses and sensation x 4. CN notified patient placed on room cleared for safety. Patient placed in paper scrubs, all belongingssecured for safety. Safety watch in place. documented in this encounter Miscellaneous Notes ED Nurse Note - Altagracia Monet RN - 02/22/2020 12:18 AM CSTReport given to GARCIA Hernandez D Nurse Note - Altagracia Monet RN - 02/22/2020 12:00 AM CSTPatient remains under suicide precautions. Continuous observation in place, patient currently sleeping on stretcher, respirations even and unlabored. D Nurse Note - Navdeep Rivera RN - 02/21/2020 10:00 PM CSTPatient remains under suicide precautions. Continuous observation in place, patient currently asleep, eyes closed, has even nonlabored breathing. EATION ASSISTANT Suicide Risk Assessment Note - Sam Celis MD - 02/21/2020 8:41 PM RECREATION ASSISTANT Suicide Risk - Assessment and Plan [place]: 2) Current suicidal thoughts: Yes 3) Suicidal thoughts with method (with no specific plan or intent to act): Yes 4) Suicidal intent without specific plan: Yes 5) Intent with plan: No 6) Suicidal behavior: Yes 6b) Was it in the past 3 months?: Yes [place] Score: )Suggested risk level: High SAFE-T: Access to Lethal Means: Protective Factors: Specific Questions of Thoughts, Plans, Intent: Behavior Assessment: Stratification: High Suicide Risk Moderate Suicide Risk Low Suicide Risk ?? Suicidal ideation with intent or intent with plan in past month (C-SSRS Suicidal Ideation #4 or #5) Or ?? Suicidal behavior within past 3 months (C-SSRS Suicidal Behavior) ?? Suicidal ideation with method, WITHOUT plan, intent or behavior in past month (C-SSRS Suicidal Ideation #3) Or ?? Suicidal behavior more than 3 months ago (C-SSRS Suicidal Behavior Lifetime) Or ?? Multiple risk factors and few protective factors ?? Wish to or Suicidal Ideation WITHOUT method, intent, plan or behavior (C-SSRS Suicidal Ideation #1 or #2) Or ?? Modifiable risk factors and strong protective factors Or ? No reported history of Suicidal Ideation or Behavior Location / Risk: Inpatient / Moderate: Suicidal ideation with intent and a plan in the past month but has protective factors, OR Suicidal behavior more than 3 months ago OR suicidal ideation with intent or method, no plan but has multiple risk factors and few protective factors. a. Directly address suicide risk with patient and family . b. Develop Safety plan including counseling about restriction and removal of firearms, medications, means to hang oneself, large sharp objects, etc. See safety plan. c. Consider transfer to Inpatient Psychiatry Hospital/ Inpatient Psychiatry Consult if unable to develop a safety plan. d. If patient is not transferred, will arrange for patient to be seen by Pediatric provider within one week of discharge, and will also place referral to outpatient behavioral health resources. D Nurse Note - Navdeep Rivera RN - 02/21/2020 8:00 PM CSTPatient remains under suicide precautions. Continuous observation in place, patient currently awake,lying in bed with no problem. EATION ASSISTANT Suicide Risk Assessment Note - Sam Celis MD - 02/21/2020 7:30 PM RECREATION ASSISTANT Suicide Risk - Assessment and Plan [place]: 2) Current suicidal thoughts: Yes 3) Suicidal thoughts with method (with no specific plan or intent to act): Yes 4) Suicidal intent without specific plan: Yes 5) Intent with plan: No 6) Suicidal behavior: Yes 6b) Was it in the past 3 months?: Yes [place] Score: )Suggested risk level: High SAFE-T: Access to Lethal Means: Protective Factors: Specific Questions of Thoughts, Plans, Intent: Behavior Assessment: Stratification: High Suicide Risk Moderate Suicide Risk Low Suicide Risk ?? Suicidal ideation with intent or intent with plan in past month (C-SSRS Suicidal Ideation #4 or #5) Or ?? Suicidal behavior within past 3 months (C-SSRS Suicidal Behavior) ?? Suicidal ideation with method, WITHOUT plan, intent or behavior in past month (C-SSRS Suicidal Ideation #3) Or ?? Suicidal behavior more than 3 months ago (C-SSRS Suicidal Behavior Lifetime) Or ?? Multiple risk factors and few protective factors ?? Wish to or Suicidal Ideation WITHOUT method, intent, plan or behavior (C-SSRS Suicidal Ideation #1 or #2) Or ?? Modifiable risk factors and strong protective factors Or ? No reported history of Suicidal Ideation or Behavior Location / Risk: Inpatient / Moderate: Suicidal ideation with intent and a plan in the past month but has protective factors, OR Suicidal behavior more than 3 months ago OR suicidal ideation with intent or method, no plan but has multiple risk factors and few protective factors. a. Directly address suicide risk with patient and family . b. Develop Safety plan including counseling about restriction and removal of firearms, medications, means to hang oneself, large sharp objects, etc. See safety plan. c. Consider transfer to Inpatient Psychiatry Hospital/ Inpatient Psychiatry Consult if unable to develop a safety plan. d. If patient is not transferred, will arrange for patient to be seen by Pediatric provider within one week of discharge, and will also place referral to outpatient behavioral health resources. are Plan - Navdeep Rivera RN - 02/21/2020 7:30 PM CSTPatient remains under suicide precautions. Continuous observation in place, patient currently lying q uietly in bed. D Nurse Note - Navdeep Rivera RN - 02/21/2020 7:15 PM RECREATION ASSISTANT Patient remains under suicide precautions. Continuous observation in place, patient currently lying in bed quietly, no signs of distress noted. D Nurse Note - Navdeep Rivera RN - 02/21/2020 7:12 PM CSTPatient and family members educated on emergency department behavioral process and precautions. Educated on need for direct observation, removal of belongings, and clearing of room for patient and staff safety. documented in this encounter Plan of Treatment Name Type Priority Associated Diagnoses Date/Ti me LAB ONLY COVID LAB STAT Suicidal behavior 02/21/20 20 8:50 PM INTERPRETATION without attempted RECREATION ASSISTANT self-injury Name Type Priority Associated Diagnoses Order S chedule LAB ONLY COVID LAB Routine Suicidal behavior ONCE for 1 Occurrences INTERPRETATION without attempted starting 02/21/2020 self-injury until 0 Health Maintenance Due Date Last Done Comments PNEUMOCOCCAL 0-64 YEARS COMBINED SERIES (1 of 1 - 10/04/1981 PPSV23) Depression Screening 1987 DTaP,Tdap,and Td Vaccines (1 - Tdap) 10/04/1994 INFLUENZA VACCINE (#1) 2019 documented as of this encounter Procedures Procedure Name Priority Date/Time Associated Comments Diagnosis POCT GLUCOSE Routine 02/22/2020 1:16 Results for this (AUTOMATED) AM RECREATION ASSISTANT procedure are i n the results section. POCT GLUCOSE Routine 02/21/2020 11:04 Results for this (AUTOMATED) PM RECREATION ASSISTANT procedure are i n the results section. POCT GLUCOSE Routine 02/21/2020 10:13 Results for this (AUTOMATED) PM RECREATION ASSISTANT procedure are i n the results section. POCT GLUCOSE Routine 02/21/2020 9:21 Results for this (AUTOMATED) PM RECREATION ASSISTANT procedure are i n the results section. COVID-19 (ID NOW RAPID STAT 02/21/2020 8:50 Suicidal behav ior Results for this TESTING) PM RECREATION ASSISTANT without attempted procedure are in self-injury the results section. URINALYSIS STAT 02/21/2020 7:34 Suicidal behavior Result s for this PM RECREATION ASSISTANT without attempted procedure are in self-injury the results section. CBC WITH DIFF STAT 02/21/2020 7:34 Suicidal behavior Resul ts for this PM RECREATION ASSISTANT without attempted procedure are in self-injury the results section. GALV/CLC ONLY - URINE STAT 02/21/2020 7:34 Suicidal behavi or Results for this DRUG (IMMUNOASSAY) - 4 PM RECREATION ASSISTANT without attempted procedure are in ER PANEL self-injury the results section. ETHANOL STAT 02/21/2020 7:34 Suicidal behavior Result s for this PM RECREATION ASSISTANT without attempted procedure are in self-injury the results section. SALICYLATE STAT 02/21/2020 7:34 Suicidal behavior Result s for this PM RECREATION ASSISTANT without attempted procedure are in self-injury the results section. ACETAMINOPHEN STAT 02/21/2020 7:34 Suicidal behavior Resul ts for this PM RECREATION ASSISTANT without attempted procedure are in self-injury the results section. BASIC METABOLIC PANEL STAT 02/21/2020 7:34 Suicidal behavi or Results for this (NA, K, CL, CO2, PM RECREATION ASSISTANT without attempted proced ure are in GLUCOSE, BUN, self-injury the results CREATININE, CA) section. HEPATIC FUNCTION PANEL STAT 02/21/2020 7:34 Suicidal behav ior Results for this (41048) PM RECREATION ASSISTANT without attempted procedure are in (ALB,T.PRO,BILI self-injury the results T,BU/BC,ALT,AST,ALK section. PHOS) documented in this encounter Results POCT GLUCOSE (AUTOMATED) (02/22/2020 1:16 AM RECREATION ASSISTANT) Pathologist Sig nature POCT GLU 206 (H) 70 - 110 mg/dL [facility] Specimen Blood Performing Organization Address [facility] Phone Number [facility] CLIA: [id number] [place] [address] POCT GLUCOSE (AUTOMATED) (02/21/2020 11:04 PM RECREATION ASSISTANT) Pathologist Sig nature POCT GLU 156 (H) 70 - 110 mg/dL [facility] Specimen Blood Performing Organization Address [facility] Phone Number [facility] CLIA: [id number] [place] [address] POCT GLUCOSE (AUTOMATED) (02/21/2020 10:13 PM RECREATION ASSISTANT) Pathologist Sig nature POCT GLU 118 (H) 70 - 110 mg/dL [facility] Specimen Blood Performing Organization Address [facility] Phone Number [facility] CLIA: [id number] [place] [address] POCT GLUCOSE (AUTOMATED) (02/21/2020 9:21 PM RECREATION ASSISTANT) Pathologist Sig nature POCT GLU 192 (H) 70 - 110 mg/dL [facility] Specimen Blood Performing Organization Address [facility] Phone Number [facility] CLIA: [id number] [place] [address] COVID-19 (ID NOW RAPID TESTING) (02/21/2020 8:50 PM RECREATION ASSISTANT) SARS-CoV-2 Rapid ID Not Detected Not Detected [facility] NOW [facility] Specimen Swab - NASOPHARYNGEAL SWAB Narrative Performed At ID NOW COVID-19 Assay is an isothermal [facility] nucleic acid amplification test intended for CAMPUS the qualitative detection of nucleic acid from SARS-CoV-2 viral RNA in nasopharyngeal (SCREEN TENDER) specimens. It is used under Emergency Use Authorization (EUA) by FDA. The limit of detection (LOD) of the assay is 125 Genome Equivalents/mL. A positive result is indicative of the presence of SARS-CoV-2 RNA. Clinical correlation with patient history and other diagnostic information is necessary to determine patient infection status. A negative (Not Detected) result does not preclude SARS-CoV-2 infection. In patients with clinical symptoms and other tests that are consistent with SARS-CoV-2 infection, negative results should be treated as presumptive negative and a new specimen should be tested with alternative PCR molecular test. Invalid: Please collect a new specimen for repeat patient testing if clinically indicated. Performing Organization Address City/[facility]/Zipcode Phone Number [facility] CLIA: [id number] [place] [address] [facility] [address] ACETAMINOPHEN (02/21/2020 7:34 PM RECREATION ASSISTANT) Pathologist Sig nature ACETAMINOP <10.0 (L) 10.0 - 30.0 ug/mL [facility] Specimen Blood - VENOUS Narrative Performed At Toxic: Greater than 200 ug/mL @ 4 hour [facility] post ingestion or greater than 50 ug/mL @ 12 hour post ingestion Performing Organization Address [facility] Phone Number [facility] CLIA: [id number] [place] [address] [facility] [address] SALICYLATE (02/21/2020 7:34 PM RECREATION ASSISTANT) Pathologist Sig nature SALICYLATE <10 mg/L [facility] Specimen Blood - VENOUS Narrative Performed At Therapeutic Range: [facility] Analgesic and Antipyretic Use 20-100 mg/L Anti-Inflammatory Use 100-250 mg/L Toxic Range: Greater than 300 mg/L Performing Organization Address [facility] Phone Number [facility] CLIA: [id number] [place] [address] [facility] [address] Urinalysis (02/21/2020 7:34 PM RECREATION ASSISTANT) Pathologist Sig nature APPEARANCE Clear Clear [facility] COLOR Straw (A) Yellow [facility] PH 5.0 4.8 - 8.0 [facility] SP GRAVITY 1.008 1.003 - 1.030 [facility] GLU U QUAL 500 mg/dL (A) Normal [facility] BLOOD Negative Negative [facility] KETONES Negative Negative [facility] PROTEIN Negative Negative [facility] UROBILIN Normal Normal [facility] BILIRUBIN Negative Negative [facility] NITRITE Negative Negative [facility] [place] Negative Negative [facility] RBC/HPF 1 0 - 3 HPF [facility] WBC/HPF 0 0 - 5 HPF [facility] BACTERIA Negative Negative [facility] ASCORBIC ACID Negative [facility] Specimen Urine - URINE, CLEAN CATCH Performing Organization Address City/[facility] Phone Number [facility] CLIA: [id number] [place] [address] [facility] [address] Drug Screen ER (02/21/2020 7:34 PM RECREATION ASSISTANT) Pathologist Sig nature AMPHET Negative Negative [facility] Cocaine Metabolite Negative Negative [facility] OPIATES Negative Negative [facility] THC Negative Negative [facility] Specimen Urine - URINE, CLEAN CATCH Narrative Performed At Urine Drug Cutoff Ranges [facility] Amphetamine: 1,000 ng/mL Cocaine: 150 ng/mL Opiates: 300 ng/mL Cannabinoids: 50 ng/mL The results are to be used only for medical (i.e., treatment) purposes. Unconfirmed screening results must not be used for non-medical purposes (e.g., employment testing, legal testing). Performing Organization Address City/State/[facility] Phone Number [facility] CLIA: [id number] [place] [address] [facility] [address] Ethanol Level (02/21/2020 7:34 PM RECREATION ASSISTANT) Pathologist Sig nature ALCOHOL <10 mg/dL [facility] Specimen Blood - VENOUS Narrative Performed At Toxic Greater than or equal to 80 mg/dL. [facility] NOTE: Whole blood values are approximately 10% to 15% lower than serum and plasma. Performing Organization Address [facility] Phone Number [facility] CLIA: [id number] [place] [address] [facility] [address] [facility] Hepatic Function Panel (ALB, T.PRO, BILI T, BU/BC, ALT, AST, ALK PHOS) (02/21/2020 7:34 PM RECREATION ASSISTANT) Pathologist Sig nature TOTAL BILI 0.2 0.1 - 1.1 mg/dL [facility] BILI UNCON 0.1 0.1 - 1.1 mg/dL [facility] BILI CONJ 0.0 0.0 - 0.3 mg/dL [facility] T PROTEIN 7.6 6.3 - 8.2 g/dL [facility] ALBUMIN 4.4 3.5 - 5.0 g/dL [facility] ALK PHOS 125 (H) 34 - 122 U/L [facility] ALTv 29 5 - 50 U/L [facility] AST(SGOT) 23 13 - 40 U/L [facility] Specimen Blood - VENOUS Performing Organization Address City/[facility] Phone Number [facility] CLIA: [id number] [place] [address] [facility] [address] [facility] Basic Metabolic Panel (NA, K, CL, CO2, GLUCOSE, BUN, CREATININE, CA) (02/21/2020 7:34 PM RECREATION ASSISTANT) Pathologist Sig nature NA 130 (L) 135 - 145 [facility] mmol/L [facility] K 4.0 3.5 - 5.0 [facility] mmol/L [facility] CL 94 (L) 98 - 108 mmol/L [facility] CO2 TOTAL 25 23 - 31 mmol/L [facility] AGAP 11 2 - 16 [facility] BUN 10 7 - 23 mg/dL [facility] GLUCOSE 332 (H) 70 - 110 mg/dL [facility] CREATININE 0.61 0.60 - 1.25 [facility] mg/dL [facility] CALCIUM 9.9 8.6 - 10.6 [facility] mg/dL [facility] eGFR Calculation 143.6 mL/min/1.73m2 [facility] (Non- [facility]) [place] eGFR Calculation 174.0 mL/min/1.73m2 [facility] () [facility] Specimen Blood - VENOUS Narrative Performed At Association of Glomerular Filtration Rate [facility] (GFR) and Staging of Kidney Disease* [place] + + --+ + | GFR (mL/min/1.73 [...] tests). Performing Organization Address City/State/Zipcode Phone Number [facility] CLIA: [id number] [place] [address] [facility] [address] CBC with Differential (02/21/2020 7:34 PM RECREATION ASSISTANT) [facility] WBC 10.79 (H) 4.20 - 10.70 [facility] 10*3/L [facility] RBC 4.79 4.26 - 5.52 [facility] 10*6/L [facility] HGB 14.9 12.2 - 16.4 [facility] g/dL [facility] HCT 41.5 38.4 - 49.3 % [facility] MCV 86.6 81.7 - 95.6 fL [facility] MCH 31.1 26.1 - 32.7 pg [facility] MCHC 35.9 (H) 31.2 - 35.0 [facility] g/dL [facility] RDW-SD 37.3 (L) 38.5 - 51.6 fL [facility] RDW-CV 11.8 (L) 12.1 - 15.4 % [facility] PLT 305 150 - 328 [facility] 10*3/L [facility] MPV 9.8 9.8 - 13.0 fL [facility] NRBC/100 WBC 0.0 0.0 - 10.0 /100 [facility] WBCs [facility] NRBC x10^3 <0.01 10*3/L [facility] GRAN MAT (NEUT) % 54.0 % [facility] IMM GRAN % 0.60 % [facility] LYMPH % 34.2 % [facility] MONO % 8.7 % [facility] EOS % 1.8 % [facility] BASO % 0.7 % [facility] GRAN MAT x10^3(ANC) 5.83 1.99 - 6.95 [facility] 10*3/uL [facility] IMM GRAN x10^3 0.06 0.00 - 0.06 [facility] 10*3/uL [facility] LYMPH x10^3 3.69 (H) 1.09 - 3.23 [facility] 10*3/uL [facility] MONO x10^3 0.94 0.36 - 1.02 [facility] 10*3/uL [facility] EOS x10^3 0.19 0.06 - 0.53 [facility] 10*3/uL [facility] BASO x10^3 0.08 0.01 - 0.09 [facility] 10*3/uL [facility] Specimen Blood - VENOUS Performing Organization Address City/State/Zipcode Phone Number [facility] CLIA: [id number] [place] [address] [facility] [address] documented in this encounter Visit Diagnoses Diagnosis Suicidal behavior without attempted self -injury - Primary Suicidal ideation Hyperglycemia Other abnormal glucose documented in this encounter Administered Medications Medication Order MAR Action Action Date Dose Rate Site insulin regular human (HUMULIN Given 02/21/2020 9:02 PM RECREATION ASSISTANT 8 U nits R) injection 8 Units 8 Units, Slow IV Push, ONCE, 1 dose, 02/21/20 at 2145, STAT NaCl 0.9% (NS) bolus infusion New Bag 02/21/2020 9:02 PM RECREATION ASSISTANT 1,000 mL 999 mL/hr 1,000 mL at 999 mL/hr, 1,000 mL, IV Infusion, ONCE, 1 dose, 02/21/20 at 2045, JEANE documented in this encounter Additional Health Concerns Infection Onset Date Last Indicated Resolved Time COVID-19 Rule Out 02/21/2020 02/21/2020 02/21/2020 9: 24 PM RECREATION ASSISTANT documented as of this encounter Insurance Payer Benefit Plan / Subscriber ID Effective Phone Address T ype Group Dates SYDNI TROY [id number] [address] [facility] [place] [facility] [id number] MANAGED MEDICAID [place], [place] documented as of this encounter
--- OUTSIDE RECORDS SUMMARY | 2020-04-27 19:37 | XMS REPORT | Summary of Care ---
:1975 Author Organization [facility] Address [address] [place] [id number] Care Team Providers Name Role Phone Terrence Liang MD Primary Care Provider Unavailable Reason for Visit Reason Comments Foot Pain Urinary Problem Auth/Cert Status Reason Specialty Diagnoses / Referred By Referred To Procedures Contact Contact [facility] Em ergency Dept [address] [place] [address] Encounter Details Date Type Department Care Team Description 02/20/2020 - Emergency [facility]Emergency Unknown, Attending Neuropat hy (Primary 02/21/2020 Department Sam Celis MD [address] [facility] [address] [place], [place] [id number] Dx) [address] [place] [address] Allergies No Known Allergiesdocumented as of this encounter (statuses as of 02/21/2020) Medications Medication Sig Dispensed Refills Start Date [...] as of this encounter (statuses as of 02/21/2020) Active Problems No known active problemsdocumented as of this encounter (statuses as of 02/21/2020) Social History Tobacco Use Types Packs/Day Years Used Date Never Assessed Sex Assigned at Date Recorded Not on file COVID-19 Exposure Response Date Recorded In the last month, have you been in contact with No / Unsure 02/20/2020 9:55 PM ASSOCIATE SCIENTIST someone who was confirmed or suspected to have Coronavirus / COVID-19? documented as of this encounter Last Filed Vital Signs Vital Sign Reading Time Taken Comments Blood Pressure 126/76 02/21/2020 4:02 AM ASSOCIATE SCIENTIST Pulse 75 02/21/2020 4:02 AM ASSOCIATE SCIENTIST Temperature 36.7 C (98 F) 02/21/2020 4:02 AM ASSOCIATE SCIENTIST Respiratory Rate 18 02/21/2020 4:02 AM ASSOCIATE SCIENTIST Oxygen Saturation 98% 02/21/2020 4:02 AM ASSOCIATE SCIENTIST Inhaled Oxygen Concentration - - Weight 86.2 kg (190 lb) 02/20/2020 9:55 PM ASSOCIATE SCIENTIST Height 162.6 cm (5' 4") 02/20/2020 9:55 PM ASSOCIATE SCIENTIST Body Mass Index 32.61 02/20/2020 9:55 PM ASSOCIATE SCIENTIST documented in this encounter Discharge Instructions AttachmentsThe following attachments cannot be sent through Care Everywhere. Neuropathy, Peripheral (Togolese)documented in this encounter ED Notes Cathy Boucher, RN - 02/20/2020 9:57 PM CSTBryn Camargo is a 44 year old male who presents to the ED with CC of BLE pain X 1 week and increased thirst and urination. He reports he was recently diagnosed with neuropathy and T2DM. He is not currently on any meds for DM. VSS. BG is 359mg/dL. Pt to lobby due to ED saturation. documented in this encounter Miscellaneous Notes ED Nurse Note - Teto Farah RN - 02/21/2020 4:04 AM CSTDischarge instructions provided to pt. Also advised pt to follow up with PCP and to return to ER dueto worsening symptoms. Advised pt on use of prescribed discharge meds, pt was receptive and verbalized understanding of teaching. Left ER by walking. Pt left in stable condition with NAD noted. D Nurse Note - Cathy Boucher, RN - 02/20/2020 11:18 PM CSTPt moved to room 15 from [facility]. D Nurse Note - Cathy Boucher, RN - 02/20/2020 11:00 PM CSTPt remains in [facility] and periodically will walk outside. Informed him we will get him to a bed as soon as we can. documented in this encounter Plan of Treatment Health Maintenance Due Date Last Done Comments PNEUMOCOCCAL 0-64 YEARS COMBINED SERIES (1 of 1 - 10/04/1981 PPSV23) Depression Screening 1987 DTaP,Tdap,and Td Vaccines (1 - Tdap) 10/04/1994 INFLUENZA VACCINE (#1) 2019 documented as of this encounter Procedures Procedure Name Priority Date/Time Associated Diagnosis Comme nts POCT GLUCOSE Routine 02/20/2020 10:02 PM Results for this (AUTOMATED) ASSOCIATE SCIENTIST procedure are i n the results section. documented in this encounter Results POCT GLUCOSE (AUTOMATED) (02/20/2020 10:02 PM ASSOCIATE SCIENTIST) Pathologist Sig nature POCT GLU 359 (H) 70 - 110 mg/dL [facility] Specimen Blood Performing Organization Address City/State/Zipcode Phone Number [facility] CLIA: [id number] [place] [address] documented in this encounter Visit Diagnoses Diagnosis Neuropathy - Primary Mononeuritis of unspecified site documented in this encounter Insurance Payer Benefit Plan / Subscriber ID Effective Phone Address T ype Group Dates SYDNI TROY [id number] [address] Medic [place] [id number] [place] MED[place] documented as of this encounter
--- OUTSIDE RECORDS SUMMARY | 2020-04-27 19:37 | XMS REPORT | Summary of Care ---
:1975 Author Organization [facility] Address [address] [place] [address] Care Team Providers Name Role Phone Terrence Liang MD Primary Care Provider Unavailable Reason for Visit Reason Comments Psych evaluation Auth/Cert Status Reason Specialty Diagnoses / Referred By Referred To Procedures Contact Contact Emergency Medicine [facility] Em ergency Dept [address] [place] [address] Encounter Details Date Type Department Care Team Description 01/29/2020 - Emergency [facility]Emergency Sam Celis MD [address] [address] [phone] Suicidal ideation (Primary Dx); 01/30/2020 Department Kenji Watson DO [address] [facility] [address] [place] [address] [phone] Homicidal ideation; [address] [place] [address] Allergies No Known Allergiesdocumented as of this encounter (statuses as of 01/30/2020) Medications Medication Sig Dispensed Refills Start Date [...] tablet 0 12/02/2019 Active TbDLIndications: mouth every evening. Medication refill divalproex Take 1 tablet by 20 tablet 0 12/02/2019 A ctive (DEPAKOTE) 500 mg EC mouth every 12 tabletIndications: (twelve) hours. Medication refill documented as of this encounter (statuses as of 01/30/2020) Active Problems No known active problemsdocumented as of this encounter (statuses as of 01/30/2020) Social History Tobacco Use Types Packs/Day Years Used Date Never Assessed Sex Assigned at Date Recorded Not on file COVID-19 Exposure Response Date Recorded In the last month, have you been in contact with No / Unsure 01/29/2020 11:20 PM CDT someone who was confirmed or suspected to have Coronavirus / COVID-19? documented as of this encounter Last Filed Vital Signs Vital Sign Reading Time Taken Comments Blood Pressure 132/76 01/30/2020 8:30 AM CDT Pulse 80 01/30/2020 8:30 AM CDT Temperature 36.6 C (97.9 F) 01/30/2020 8:30 AM CDT Respiratory Rate 18 01/30/2020 8:30 AM CDT Oxygen Saturation 98% 01/30/2020 8:30 AM CDT Inhaled Oxygen Concentration - - Weight 77.1 kg (170 lb) 01/29/2020 11:24 PM CDT Height 162.6 cm (5' 4") 01/29/2020 11:24 PM CDT Body Mass Index 29.18 01/29/2020 11:24 PM CDT documented in this encounter ED Notes Alejandrina Downs, GARCIA - 01/29/2020 11:21 PM CDTPt reports hearing voices for the past couple of days that have been telling him people are out to get him. Pt also reports SI with plan to jump in front of vehicle. Pt reports si attempts by hanging (5 years ago) and jumping infront of vehicle a month ago. Pt non compliant with home meds. Pt reports hasn't been on meds for 2 weeks. Patient compliant and pleasant with staff. Patient educated on emergency department behavioral process and precautions. Educated on need for direct observation, removal of belongings, and clearing of room for patient and staff safety. Patient given community resources for outpatient treatment and care. documented in this encounter Miscellaneous Notes ED Nurse Note - Elizabeth Curtis RN - 01/30/2020 9:26 AM CDTDiscussed discharge instructions with the patient--follow up with referral as needed, return to the ER for worsening symptoms. Patient verbalized understanding of instructions. D Mental Health Note - Kenji Watson DO - 01/30/2020 8:25 AM CDT Suicide Risk - Assessment and Plan ESS-6: Positive Screen for Suicidality: Yes Recent or current suicide plan: Yes Recent or current intent to act on ideation: Yes Lifetime psychiatric hospitalization: Yes Pattern of excessive substance use: Yes Is the patient displaying current irritability, agitation, or agression: No Score Risk Questions: Initial score: 5 Suicide Risk - Assessment and Plan ESS-6: Positive Screen for Suicidality: Yes Recent or current suicide plan: Yes Recent or current intent to act on ideation: Yes Lifetime psychiatric hospitalization: Yes Pattern of excessive substance use: Yes Is the patient displaying current irritability, agitation, or agression: No Score Risk Questions: Initial score: 5 Critical Items: Suicide plan present: Yes Intent present: Yes Current suicide attempt: No Total Score: Suggested risk level: High Stratification and Care Recommendations: Negligible Mild Risk Moderate Risk High Risk A. Score Not applicable (negative on primary screener) 0-2 3-4 5-6 B. Critical items - No current attempt - No suicide plan or intent - No current attempt - No suicide plan or intent - No current attempt - Suicide plan or intent (not both) - Current attempt - Suicide plan and intent Risk Level of Patient: Moderate risk Plan: Moderate ? Constant observation (1:several), make room safe recommended. ? Behavioral health evaluation recommended. ? Suicide Prevention and Mental Health discharge resources. ? Safety plan recommended at discharge. Critical Items: Suicide plan present: Yes Intent present: Yes Current suicide attempt: No Total Score: Suggested risk level: High Stratification and Care Recommendations: Negligible Mild Risk Moderate Risk High Risk B. Score Not applicable (negative on primary screener) 0-2 3-4 5-6 C. Critical items - No current attempt - No suicide plan or intent - No current attempt - No suicide plan or intent - No current attempt - Suicide plan or intent (not both) - Current attempt - Suicide plan and intent Risk Level of Patient: moderate Plan: Inpt transfer D Nurse Note - Josue Berumen RN - 01/30/2020 7:15 AM CDTReport received from GARCIA Singletary. Patient currently sleeping in bed. Sitter at bedside. D Nurse Note - Alejandrina Downs RN - 01/30/2020 7:12 AM CDTThis RN gave verbal report to GARCIA Salas. Josue verbalized understanding. D Nurse Note - Alejandrina Downs RN - 01/30/2020 6:00 AM CDTPatient remains under suicide precautions. Continuous observation in place, patient currently sleeping, NAD noted. D Nurse Note - Nafisa Hemphill RN - 01/30/2020 5:43 AM CDTPT medically cleared, ED doctor notified [facility]PC at this time for placement D Nurse Note - Nafisa Hemphill RN - 01/30/2020 5:34 AM CDTPER ER doctor, patient is not cleared until BS is better. D Nurse Note - Alejandrina Downs RN - 01/30/2020 4:00 AM CDT Patient remains under suicide precautions. Continuous observation in place, patient currently sleeping, NAD noted. D Nurse Note - Alejandrina Downs RN - 01/30/2020 2:00 AM CDTPatient remains under suicide precautions. Continuous observation in place, patient currently sleeping, NAD noted. D Nurse Note - Alejandrina Downs RN - 01/30/2020 12:00 AM CDTPatient remains under suicide precautions. Continuous observation in place, patient currently resting in bed eyes closed, NAD noted. D Nurse Note - Alejandrina Downs RN - 01/29/2020 11:53 PM CDTDr. Celis at the bedside assessing patient. are Plan - Alejandrina Downs RN - 01/29/2020 11:43 PM CDTSuicide precautions initiated documented in this encounter Plan of Treatment Name Type Priority Associated Diagnoses Date/Ti me LAB ONLY COVID LAB STAT Suicidal ideation 01/30/20 20 12:27 AM INTERPRETATION CDT Name Type Priority Associated Diagnoses Order S chedule LAB ONLY COVID LAB Routine Suicidal ideation ONCE for 1 Occurrences INTERPRETATION starting 01/08 until 0 Health Maintenance Due Date Last Done Comments PNEUMOCOCCAL 0-64 YEARS COMBINED SERIES (1 of 1 - 10/04/1981 PPSV23) Depression Screening 1987 DTaP,Tdap,and Td Vaccines (1 - Tdap) 10/04/1994 INFLUENZA VACCINE (#1) 2019 documented as of this encounter Procedures Procedure Name Priority Date/Time Associated Comments Diagnosis POCT GLUCOSE Routine 01/30/2020 2:13 Results for this (AUTOMATED) AM CDT procedure are i n the results section. COVID-19 (ID NOW RAPID STAT 01/30/2020 12:27 Suicidal ideat ion Results for this TESTING) AM CDT procedure are i n the results section. EXTRA TUBE LT. BLUE STAT 01/30/2020 12:27 AM CDT EXTRA TUBE LAV STAT 01/30/2020 12:27 AM CDT URINALYSIS STAT 01/30/2020 12:27 Suicidal ideation Result s for this AM CDT procedure are i n the results section. CBC WITH DIFF STAT 01/30/2020 12:27 Suicidal ideation Resul ts for this AM CDT procedure are i n the results section. GALV/CLC ONLY - URINE STAT 01/30/2020 12:27 Suicidal ideati on Results for this DRUG (IMMUNOASSAY) - 4 AM CDT proce dure are in ER PANEL the results section. ETHANOL STAT 01/30/2020 12:27 Suicidal ideation Result s for this AM CDT procedure are i n the results section. SALICYLATE STAT 01/30/2020 12:27 Suicidal ideation Result s for this AM CDT procedure are i n the results section. ACETAMINOPHEN STAT 01/30/2020 12:27 Suicidal ideation Resul ts for this AM CDT procedure are i n the results section. BASIC METABOLIC PANEL STAT 01/30/2020 12:27 Suicidal ideati on Results for this (NA, K, CL, CO2, AM CDT procedure a re in GLUCOSE, BUN, the results CREATININE, CA) section. HEPATIC FUNCTION PANEL STAT 01/30/2020 12:27 Suicidal ideat ion Results for this (47306) AM CDT procedure are i n (ALB,T.PRO,BILI the results T,BU/BC,ALT,AST,ALK section. PHOS) LIPASE STAT 01/30/2020 12:27 Suicidal ideation Result s for this AM CDT procedure are i n the results section. POCT GLUCOSE Routine 01/29/2020 11:31 Results for this (AUTOMATED) PM CDT procedure are i n the results section. documented in this encounter Results POCT GLUCOSE (AUTOMATED) (01/30/2020 2:13 AM CDT) Pathologist Sig nature POCT GLU 269 (H) 70 - 110 mg/dL [facility] Specimen Blood Performing Organization Address City/[facility]/Zipcode Phone Number [facility] CLIA: [id number] [place] [address] EXTRA TUBE LAV (01/30/2020 12:27 AM CDT) Specimen Blood Performing Organization Address City/State/Zipcode Phone Number [facility] CLIA: [id number] [place] [address] [facility] [address] EXTRA TUBE LT. BLUE (01/30/2020 12:27 AM CDT) Specimen Blood Performing Organization Address City/[facility]/Zipcode Phone Number [facility] CLIA: [id number] [place] [address] [facility] [address] COVID-19 (ID NOW RAPID TESTING) (01/30/2020 12:27 AM CDT) SARS-CoV-2 Rapid ID Not Detected Not Detected [facility] Specimen Swab - NASOPHARYNGEAL SWAB Narrative Performed At ID NOW COVID-19 Assay is an isothermal [facility] nucleic acid amplification test intended for CAMPUS the qualitative detection of nucleic acid from SARS-CoV-2 viral RNA in nasopharyngeal (INTERIOR WIRER) specimens. It is used under Emergency Use [...] testing if clinically indicated. Performing Organization Address [facility] Phone Number [facility] CLIA: [id number] [place] [address] [facility] [address] SALICYLATE (01/30/2020 12:27 AM CDT) Pathologist Sig nature SALICYLATE <10 mg/L [facility] Specimen Blood - VENOUS Narrative Performed At Therapeutic Range: [facility] Analgesic and Antipyretic Use 20-100 mg/L Anti-Inflammatory Use 100-250 mg/L Toxic Range: Greater than 300 mg/L Performing Organization Address [facility] Phone Number [facility] CLIA: [id number] [place] [address] [facility] [address] ACETAMINOPHEN (01/30/2020 12:27 AM CDT) Pathologist Sig nature ACETAMINOP <10.0 (L) 10.0 - 30.0 ug/mL [facility] Specimen Blood - VENOUS Narrative Performed At Toxic: Greater than 200 ug/mL @ [address] [facility] post ingestion or greater than 50 ug/mL @ 12 hour post ingestion Performing Organization Address [facility] Phone Number [facility] CLIA: [id number] [place] [address] [facility] [address] Drug Screen ER (01/30/2020 12:27 AM CDT) Pathologist Sig nature AMPHET Negative Negative [facility] Cocaine Metabolite Negative Negative [facility] OPIATES Negative Negative [facility] THC Negative Negative [facility] Specimen Urine - URINE, CLEAN CATCH Narrative Performed At Urine Drug Cutoff Ranges [facility] US Amphetamine: 1,000 ng/mL Cocaine: 150 ng/mL Opiates: 300 ng/mL Cannabinoids: 50 ng/mL The results are to be used only for medical (i.e., treatment) purposes. Unconfirmed screening results must not be used for non-medical purposes (e.g., employment testing, legal testing). Performing Organization Address City/[facility] Phone Number [facility] CLIA: [id number] [place] [address] [facility] [address] Ethanol Level (01/30/2020 12:27 AM CDT) Pathologist Sig nature ALCOHOL <10 mg/dL [facility] Specimen Blood - VENOUS Narrative Performed At Toxic Greater than or equal to 80 mg/dL. [facility] NOTE: Whole blood values are approximately 10% to 15% lower than serum and plasma. Performing Organization Address City/[facility] Phone Number [facility] CLIA: [id number] [place] [address] [facility] [address] Lipase Serum (01/30/2020 12:27 AM CDT) Pathologist Sig nature LIPASE 136 0 - 220 U/L [facility] Specimen Blood - VENOUS Performing Organization Address City/[facility]/Zipcode Phone Number [facility] CLIA: [id number] [place] [address] [facility] [address] Hepatic Function Panel (ALB, T.PRO, BILI T, BU/BC, ALT, AST, ALK PHOS) (01/30/2020 12:27 AM CDT) Pathologist Sig nature TOTAL BILI 0.4 0.1 - 1.1 mg/dL [facility] BILI UNCON 0.2 0.1 - 1.1 mg/dL [facility] BILI CONJ 0.0 0.0 - 0.3 mg/dL [facility] T PROTEIN 7.4 6.3 - 8.2 g/dL [facility] ALBUMIN 4.2 3.5 - 5.0 g/dL [facility] ALK PHOS 121 34 - 122 U/L [facility] ALTv 20 5 - 50 U/L [facility] AST(SGOT) 19 13 - 40 U/L [facility] Specimen Blood - VENOUS Performing Organization Address City/State/Zipcode Phone Number [facility] CLIA: [id number] [place] [address] [facility] [address] Basic Metabolic Panel (NA, K, CL, CO2, GLUCOSE, BUN, CREATININE, CA) (01/30/2020 12:27 AM CDT) Pathologist [facility] NA 132 (L) 135 - 145 [facility] mmol/L [facility] K 4.0 3.5 - 5.0 [facility] mmol/L [facility] CL 96 (L) 98 - 108 mmol/L [facility] CO2 TOTAL 25 23 - 31 mmol/L [facility] AGAP 11 2 - 16 [facility] BUN 14 7 - 23 mg/dL [facility] GLUCOSE 304 (H) 70 - 110 mg/dL [facility] CREATININE 0.63 0.60 - 1.25 [facility] mg/dL [facility] CALCIUM 9.3 8.6 - 10.6 [facility] mg/dL [facility] eGFR Calculation 138.3 mL/min/1.73m2 [facility] (Non- [facility] eGFR Calculation 167.7 mL/min/1.73m2 [facility] () [facility] Specimen Blood - VENOUS Narrative Performed At Association of Glomerular Filtration Rate [facility] (GFR) and Staging of Kidney Disease* CAMPUS [...] tests). Performing Organization Address City/State/Zipcode Phone Number [facility] CLIA: [id number] [place] [address] [facility] [address] CBC with Differential (01/30/2020 12:27 AM CDT) [facility] WBC 9.27 4.20 - 10.70 [facility] 10*3/L [facility] RBC 4.60 4.26 - 5.52 [facility] 10*6/L [facility] HGB 14.6 12.2 - 16.4 [facility] g/dL [facility] HCT 40.7 38.4 - 49.3 % [facility] MCV 88.5 81.7 - 95.6 fL [facility] MCH 31.7 26.1 - 32.7 pg [facility] MCHC 35.9 (H) 31.2 - 35.0 [facility] g/dL [facility] RDW-SD 41.1 38.5 - 51.6 fL [facility] RDW-CV 12.6 12.1 - 15.4 % [facility] PLT 290 150 - 328 [facility] 10*3/L [facility] MPV 10.2 9.8 - 13.0 fL [facility] NRBC/100 WBC 0.0 0.0 - 10.0 /100 [facility] WBCs [facility] NRBC x10^3 <0.01 10*3/L [facility] GRAN MAT (NEUT) % 51.5 % [facility] IMM GRAN % 0.60 % [facility] LYMPH % 35.6 % [facility] MONO % 9.3 % [facility] EOS % 2.5 % [facility] BASO % 0.5 % [facility] GRAN MAT x10^3(ANC) 4.77 1.99 - 6.95 [facility] 10*3/uL [facility] IMM GRAN x10^3 0.06 0.00 - 0.06 [facility] 10*3/uL [facility] LYMPH x10^3 3.30 (H) 1.09 - 3.23 [facility] 10*3/uL [facility] MONO x10^3 0.86 0.36 - 1.02 [facility] 10*3/uL [facility] EOS x10^3 0.23 0.06 - 0.53 [facility] 10*3/uL [facility] BASO x10^3 0.05 0.01 - 0.09 [facility] 10*3/uL [facility] Specimen Blood - VENOUS Performing Organization Address City/State/Zipcode Phone Number [facility] CLIA: [id number] [place] [address] [facility] [address] Urinalysis (01/30/2020 12:27 AM CDT) Pathologist Sig nature APPEARANCE Clear Clear [facility] COLOR Yellow Yellow [facility] PH 5.0 4.8 - 8.0 [facility] SP GRAVITY 1.023 1.003 - 1.030 [facility] GLU U QUAL 500 mg/dL (A) Normal [facility] BLOOD Negative Negative [facility] KETONES Negative Negative [facility] PROTEIN Negative Negative [facility] UROBILIN Normal Normal [facility] BILIRUBIN Negative Negative [facility] NITRITE Negative Negative [facility] LEUK [place] Negative Negative [facility] RBC/HPF 2 0 - 3 HPF [facility] WBC/HPF 2 0 - 5 HPF [facility] BACTERIA Negative Negative [facility] MUCOUS Slight (A) Negative LPF [facility] Specimen Urine - URINE, CLEAN CATCH Performing Organization Address City/State/Zipcode Phone Number [facility] CLIA: [id number] [place] [address] [facility] [address] POCT GLUCOSE (AUTOMATED) (01/29/2020 11:31 PM CDT) Pathologist Sig nature POCT GLU 404 (H) 70 - 110 mg/dL [facility] Specimen Blood Performing Organization Address City/State/Zipcode Phone Number [facility] CLIA: [id number] [place] [address] documented in this encounter Visit Diagnoses Diagnosis Suicidal ideation - Primary Homicidal ideation Hyperglycemia Other abnormal glucose documented in this encounter Administered Medications Medication Order MAR Action Action Date Dose Rate Site metFORMIN (GLUCOPHAGE) tablet 500 Given 01/30/2020 9:01 AM CDT 500 mg mg 500 mg, Oral, ONCE, 1 dose, Sun01/30/20 at 0945, Routine NaCl 0.9% (NS) bolus infusion New Bag 01/30/2020 12:27 AM CDT 1,000 mL 999 mL/hr 1,000 mL at 999 mL/hr, 1,000 mL, IV Infusion, ONCE, 1 dose, Sun01/30/20 at 0000, JEANE documented in this encounter Additional Health Concerns Infection Onset Date Last Indicated Resolved Time COVID-19 Rule Out 01/30/2020 01/30/2020 01/30/2020 1: 04 AM CDT documented as of this encounter Insurance Payer Benefit Plan / Subscriber ID Effective Phone Address T e Group Dates SYDNI TROY [id number] [address] Medic [place] [facility] [id number] MANAGED MEDICAID [place], [place] documented as of this encounter
--- OUTSIDE RECORDS SUMMARY | 2020-04-27 19:37 | XMS REPORT | Summary of Care ---
:1975 Author Organization [facility] - [facility] Address [address] [place] [address] Care Team Providers Name Role Phone Terrence Liang MD Primary Care Provider Unavailable Reason for Visit Reason Comments Medication Problem Out of meds Auth/Cert Status Reason Specialty Diagnoses / Referred By Referred To Procedures Contact Contact Emergency Medicine [facility] Em ergency Dept [address] [place] [address] Encounter Details Date Type Department Care Team Description 03/31/2020 Emergency [facility]-Emergency Sam Celis Dehydra tion (Primary Dx); Department MD Medication refill [address] [address] [facility] [address] [place], [place] [address] [phone] Allergies No Known Allergiesdocumented as of this encounter (statuses as of 03/31/2020) Medications Medication Sig Dispensed Refills Start Date [...] 0 12/02/2019 A ctive (DEPAKOTE) 500 mg mouth every 12 EC (twelve) hours. tabletIndications: Medication refill gabapentin Take 1 capsule by 30 capsule 0 02/21/2020 Active (NEURONTIN) 100 mg mouth 3 (three) capsuleIndications: times daily. Neuropathy divalproex 500 mg Take 1 tablet by 60 tablet 0 03/31/2020/2 05/2020 Active EC mouth every 12 tabletIndications: (twelve) hours for Medication refill 30 days. metFORMIN 500 mg Take 1 tablet by 60 tablet 0 03/31/2020 Active tabletIndications: mouth 2 (two) times Medication refill daily with meals. Risperidone 0.25 mg Take 1 TAB-CAP/M2 30 tablet 0 03/31/2020 0 04/30/2020 Active TbDLIndications: by mouth every Medication refill morning for 30 days. documented as of this encounter (statuses as of 03/31/2020) Active Problems No known active problemsdocumented as of this encounter (statuses as of 03/31/2020) Social History Tobacco Use Types Packs/Day Years Used Date Never Assessed Sex Assigned at Date Recorded Not on file COVID-19 Exposure Response Date Recorded In the last month, have you been in contact with No / Unsure 03/31/2020 2:47 AM LUMBER CARRIER OPERATOR someone who was confirmed or suspected to have Coronavirus / COVID-19? documented as of this encounter Last Filed Vital Signs Vital Sign Reading Time Taken Comments Blood Pressure 154/87 03/31/2020 5:35 AM LUMBER CARRIER OPERATOR Pulse 94 03/31/2020 5:35 AM LUMBER CARRIER OPERATOR Temperature 36.6 C (97.9 F) 03/31/2020 5:35 AM LUMBER CARRIER OPERATOR Respiratory Rate 17 03/31/2020 5:35 AM LUMBER CARRIER OPERATOR Oxygen Saturation 96% 03/31/2020 5:35 AM LUMBER CARRIER OPERATOR Inhaled Oxygen Concentration - - Weight 81.2 kg (179 lb) 03/31/2020 2:47 AM LUMBER CARRIER OPERATOR Height 162.6 cm (5' 4") 03/31/2020 2:47 AM LUMBER CARRIER OPERATOR Body Mass Index 30.73 03/31/2020 2:47 AM LUMBER CARRIER OPERATOR documented in this encounter Discharge Instructions AttachmentsThe following attachments cannot be sent through Care Everywhere. Dehydration (Adult) (Afghan)documented in this encounter ED Notes Hawa Prado RN - 03/31/2020 2:48 AM CSTBryn Camargo is a 44 year old male arrived with complaints of out of all his meds x 1 month. Patient states unable to afford to go to PCP. Patient admits to being homeless. Psych, DM, HTN hx. Patient is alert and oriented at this time respiratory reg and unlabored. documented in this encounter Miscellaneous Notes ED Nurse Note - Nafisa Hemphill RN - 03/31/2020 5:36 AM CSTPT d/c, instructions given for at home, instructed to f/u with PCP, PT stated understanding of d/c instructions, PT ambulatory with no sign of distress or discomfort note at this time. documented in this encounter Plan of Treatment Name Type Priority Associated Diagnoses Date/Ti me EXTRA TUBE LT. BLUE LAB ONLY Routine 03/31/20 20 4:26 AM LUMBER CARRIER OPERATOR Name Type Priority Associated Diagnoses Order S chedule EXTRA TUBE LT. BLUE LAB ONLY Routine ONCE for 1 Occurrences starting 2019 until 03/31/2020 Health Maintenance Due Date Last Done Comments PNEUMOCOCCAL 0-64 YEARS COMBINED SERIES (1 of 1 - 10/04/1981 PPSV23) Depression Screening 1987 DTaP,Tdap,and Td Vaccines (1 - Tdap) 10/04/1994 INFLUENZA VACCINE (#1) 2019 documented as of this encounter Procedures Procedure Name Priority Date/Time Associated Diagnosis Comme nts CBC WITH DIFF STAT 03/31/2020 4:26 AM Dehydration Results for this LUMBER CARRIER OPERATOR procedure are i n the results section. BASIC METABOLIC STAT 03/31/2020 4:26 AM Dehydration Resul ts for this PANEL (NA, K, CL, LUMBER CARRIER OPERATOR procedure are in CO2, GLUCOSE, BUN, the resul ts CREATININE, CA) section. HEPATIC FUNCTION STAT 03/31/2020 4:26 AM Dehydration Resu lts for this PANEL (99156) LUMBER CARRIER OPERATOR procedure are in (ALB,T.PRO,BILI the results T,BU/BC,ALT,AST,ALK section. PHOS) documented in this encounter Results Hepatic Function Panel (ALB, T.PRO, BILI T, BU/BC, ALT, AST, ALK PHOS) (03/31/2020 4:26 AM LUMBER CARRIER OPERATOR) [facility] TOTAL BILI 0.5 0.1 - 1.1 mg/dL [facility]ATORY SERVICES- [facility] BILI UNCON 0.3 0.1 - 1.1 mg/dL [facility] BILI CONJ 0.0 0.0 - 0.3 mg/dL [facility] T PROTEIN 6.8 6.3 - 8.2 g/dL [facility] ALBUMIN 4.0 3.5 - 5.0 g/dL [facility] ALK PHOS 107 34 - 122 U/L [facility] ALTv 25 5 - 50 U/L [facility] AST(SGOT) 25 13 - 40 U/L [facility] Specimen Blood - VENOUS Performing Organization Address City/State/Zipcode Phone Number [facility] CLIA: [id number] [place] [address] [facility] [address] Basic Metabolic Panel (NA, K, CL, CO2, GLUCOSE, BUN, CREATININE, CA) (03/31/2020 4:26 AM LUMBER CARRIER OPERATOR) NA 134 (L) 135 - 145 [facility] mmol/L [facility] K 3.6 3.5 - 5.0 [facility] mmol/L [facility] CL 97 (L) 98 - 108 mmol/L [facility] CO2 TOTAL 27 23 - 31 mmol/L [facility] AGAP 10 2 - 16 [facility] BUN 7 7 - 23 mg/dL [facility] GLUCOSE 263 (H) 70 - 110 mg/dL [facility] CREATININE 0.51 (L) 0.60 - 1.25 [facility] mg/dL [facility] CALCIUM 9.2 8.6 - 10.6 [facility] mg/dL [facility] eGFR Calculation 176.6 mL/min/1.73m2 [facility] (Non- [facility]) PERU eGFR Calculation 214.0 mL/min/1.73m2 [facility] () [facility] Specimen Blood - VENOUS Narrative Performed At Association of Glomerular Filtration Rate [facility] (GFR) and Staging of Kidney Disease* [...] tests). Performing Organization Address City/State/Zipcode Phone Number [facility] CLIA: [id number] [place] [address] [facility] [address] CBC with Differential (03/31/2020 4:26 AM LUMBER CARRIER OPERATOR) [facility] WBC 12.49 (H) 4.20 - 10.70 [facility] 10*3/L [facility] RBC 4.68 4.26 - 5.52 [facility] 10*6/L [facility] HGB 14.8 12.2 - 16.4 [facility] g/dL [facility] HCT 40.8 38.4 - 49.3 % [facility] MCV 87.2 81.7 - 95.6 fL [facility] MCH 31.6 26.1 - 32.7 pg [facility] MCHC 36.3 (H) 31.2 - 35.0 [facility] g/dL [facility] RDW-SD 38.7 38.5 - 51.6 fL [facility] RDW-CV 12.0 (L) 12.1 - 15.4 % [facility] PLT 301 150 - 328 [facility] 10*3/L [facility] MPV 9.6 (L) 9.8 - 13.0 fL [facility] NRBC/100 WBC 0.0 0.0 - 10.0 /100 [facility] WBCs [facility] NRBC x10^3 <0.01 10*3/L [facility] SERVICES-[facility] GRAN MAT (NEUT) % 68.5 % [facility] IMM GRAN % 0.30 % [facility] LYMPH % 21.7 % [facility] MONO % 8.4 % [facility] EOS % 0.6 % [facility] BASO % 0.5 % [facility] GRAN MAT x10^3(ANC) 8.56 (H) 1.99 - 6.95 [facility] 10*3/[facility]L [facility] IMM GRAN x10^3 0.04 0.00 - 0.06 [facility] 10*3/uL [facility] LYMPH x10^3 2.71 1.09 - 3.23 [facility] 10*3/[facility]L [facility] MONO x10^3 1.05 (H) 0.36 - 1.02 [facility] 10*3/[facility]L [facility] EOS x10^3 0.07 0.06 - 0.53 [facility] 10*3/uL SERVICES-[facility] BASO x10^3 0.06 0.01 - 0.09 [facility] 10*3/uL [facility] Specimen Blood - VENOUS Performing Organization Address City/State/Zipcode Phone Number [facility] CLIA: [id number] [place] [address] [facility] [address] documented in this encounter Visit Diagnoses Diagnosis Dehydration - Primary Medication refill Issue of repeat prescriptions documented in this encounter Insurance Payer Benefit Plan / Subscriber ID Effective Phone Address T ype Group Dates SYDNI TROY [id number] 2016-[address] Medic [place] [id number] MANAGED MED[place] documented as of this encounter
--- OUTSIDE RECORDS SUMMARY | 2020-04-27 19:37 | XMS REPORT | Summary of Care ---
:1975 Author Organization [facility] [[email or web address]] - [facility] Address [address] [place] [address] Care Team Providers Name Role Phone Terrence Liang MD Primary Care Provider Unavailable Reason for Visit Reason Comments Syncope Auth/Cert Status Reason Specialty Diagnoses / Referred By Referred To Procedures Contact Contact Emergency Medicine Clc Em ergency Dept [address] [place] [address] Encounter Details Date Type Department Care Team Description 02/28/2020 - Emergency [facility]LC-Emergency Linklater, Syncope, unspe cified syncope type (Primary Dx); 02/29/2020 Department MD Jame Hyperglycemia; [address] [place] [address] [facility] [address] [facility] [address] [place] [address] [phone] Allergies No Known Allergiesdocumented as of this encounter (statuses as of 02/29/2020) Medications Medication Sig Dispensed Refills Start Date [...] as of this encounter (statuses as of 02/29/2020) Active Problems No known active problemsdocumented as of this encounter (statuses as of 02/29/2020) Social History Tobacco Use Types Packs/Day Years Used Date Never Assessed Sex Assigned at Date Recorded Not on file COVID-19 Exposure Response Date Recorded In the last month, have you been in contact with Yes 02/28/2020 8:24 PM EQUIPMENT ASSOCIATE someone who was confirmed or suspected to have Coronavirus / COVID-19? documented as of this encounter Last Filed Vital Signs Vital Sign Reading Time Taken Comments Blood Pressure 111/81 02/29/2020 1:21 AM EQUIPMENT ASSOCIATE Pulse 79 02/29/2020 1:21 AM EQUIPMENT ASSOCIATE Temperature 36.7 C (98 F) 02/28/2020 8:25 PM EQUIPMENT ASSOCIATE Respiratory Rate 16 02/29/2020 1:21 AM EQUIPMENT ASSOCIATE Oxygen Saturation 98% 02/29/2020 1:21 AM EQUIPMENT ASSOCIATE Inhaled Oxygen Concentration - - Weight 81.6 kg (180 lb) 02/28/2020 8:25 PM EQUIPMENT ASSOCIATE Height - - Body Mass Index 30.9 02/21/2020 7:13 PM EQUIPMENT ASSOCIATE documented in this encounter Discharge Instructions AttachmentsThe following attachments cannot be sent through Care Everywhere. Dehydration (Adult) (Cuban)documented in this encounter ED Notes Jacque Cheung RN - 02/28/2020 8:24 PM CSTBryn Camargo is a 44 year old male complaining of a syncopal episode. Patient endorses that he passed out. PAtient states "I take psych meds but I am not suicidal or hearing voices right now." PMENT ASSOCIATE documented in this encounter Miscellaneous Notes ED Nurse Note - Altagracia Monet RN - 02/29/2020 1:23 AM CSTPatient given printed and verbal discharge instructions regarding dizziness, hydration encouraged. Prescriptions provided. Discussed tylenol/ibuprofen every [...] medications given in ER noted upon discharge. D Nurse Note - Altagracia Monet RN - 02/28/2020 11:56 PM CSTPatient ambulated to bathroom steadily, denies dizziness at this time D Nurse Note - Rakel Estrella RN - 02/28/2020 9:25 PM Palomo Camargo is a 44 year old male who presents to ED with complaints of Week long dizzy spells and high blood sugar. NIDDM, not currently taking oral medications. BG checked in triage 316. EKG completed in triage, signed by provider and placed in chart. Pt is calm, cooperative during assessment. Pt states he is no longer doing drugs. Pt reports leaving [facility] clear lassiter last night AMA. documented in this encounter Plan of Treatment Health Maintenance Due Date Last Done Comments PNEUMOCOCCAL 0-64 YEARS COMBINED SERIES (1 of 1 - 10/04/1981 PPSV23) Depression Screening 1987 DTaP,Tdap,and Td Vaccines (1 - Tdap) 10/04/1994 INFLUENZA VACCINE (#1) 2019 documented as of this encounter Procedures Procedure Name Priority Date/Time Associated Diagnosis Comme nts EXTRA TUBE LT. BLUE STAT 02/28/2020 9:29 PM EQUIPMENT ASSOCIATE URINALYSIS STAT 02/28/2020 9:29 Syncope, unspecified Res ults for this PM EQUIPMENT ASSOCIATE syncope type procedure are i n the results section. CBC WITH DIFF STAT 02/28/2020 9:29 Syncope, unspecified Re sults for this PM EQUIPMENT ASSOCIATE syncope type procedure are i n the results section. COMP. METABOLIC STAT 02/28/2020 9:29 Syncope, unspecified Results for this PANEL (45050) PM EQUIPMENT ASSOCIATE syncope type procedure are in the results section. TROPONIN I STAT 02/28/2020 9:29 Syncope, unspecified Res ults for this PM EQUIPMENT ASSOCIATE syncope type procedure are i n the results section. MAGNESIUM STAT 02/28/2020 9:29 Syncope, unspecified Res ults for this PM EQUIPMENT ASSOCIATE syncope type procedure are i n the results section. POCT GLUCOSE Routine 02/28/2020 8:45 Results for this (AUTOMATED) PM EQUIPMENT ASSOCIATE procedure are i n the results section. documented in this encounter Results EXTRA TUBE LT. BLUE (02/28/2020 9:29 PM EQUIPMENT ASSOCIATE) Specimen Blood Performing Organization Address City/[facility]code Phone Number [facility] [[email or web address]] LABORATORY CLIA: [id number] [place] [address] [facility] [address] URINALYSIS (02/28/2020 9:29 PM EQUIPMENT ASSOCIATE) Pathologist Sig nature APPEARANCE Clear Clear [facility] [[email or web address]] LABORATORY SERVICES-[facility] COLOR Straw (A) Yellow [email or web address] PH 7.0 4.8 - 8.0 [facility] SP GRAVITY 1.006 1.003 - 1.030 [facility] [[email or web address] LAB[facility]ATORY SERVICES-[facility] GLU U QUAL 500 mg/dL (A) Normal [email or web address] BLOOD Negative Negative [facility] KETONES Negative Negative [facility] PROTEIN Negative Negative [facility] UROBILIN Normal Normal [facility] BILIRUBIN Negative Negative [facility] NITRITE Negative Negative [facility] LEUK [place] Negative Negative [facility] RBC/HPF 1 0 - 3 HPF [facility] WBC/HPF <1 0 - 5 HPF [facility] BACTERIA Negative Negative [email or web address] Specimen Urine - URINE, CLEAN CATCH Performing Organization Address [facility]alscode Phone Number [email or web address] LABORATORY CLIA: [id number] [place] [address] [facility] [address] MAGNESIUM (02/28/2020 9:29 PM EQUIPMENT ASSOCIATE) Pathologist Sig nature MAGNESIUM 1.6 (L) 1.7 - 2.4 mg/dL [facility] Specimen Blood - VENOUS Performing Organization Address [facility]alscode Phone Number [email or web address] LABORATORY CLIA: [id number] [place] [address] [facility] [address] TROPONIN I (02/28/2020 9:29 PM EQUIPMENT ASSOCIATE) Pathologist Sig nature TROPONIN I 0.007 <=0.034 ng/mL [facility] [[email or web address] LABORATORY [facility] Specimen Blood - VENOUS Narrative Performed At Equal or Less than 0.034 ng/ml---Normal [facility] [[email or web address] LABORATORY [facility] Note: Cardiac troponin begins to rise [...] [email or web address] LABORATORY CLIA: [id number] [place] [address] [facility] [address] CBC WITH DIFF (02/28/2020 9:29 PM EQUIPMENT ASSOCIATE) [facility] WBC 9.18 4.20 - 10.70 [facility] [[email or web address] LABORATORY 10*3/L [facility] RBC 4.64 4.26 - 5.52 [facility] [[email or web address] LABORATORY 10*6/L [facility] HGB 14.7 12.2 - 16.4 [facility] [[email or web address] LABORATORY g/dL [facility] HCT 41.2 38.4 - 49.3 % [facility] [[email or web address] LABORATORY [facility] MCV 88.8 81.7 - 95.[address] [facility] MCH 31.7 26.1 - 32.[address] [facility] MCHC 35.7 (H) 31.2 - 35.0 [facility] g/dL [facility] RDW-SD 38.5 38.5 - 51.[address] [facility] [facility] RDW-CV 11.9 (L) 12.1 - 15.4 % [facility] PLT 266 150 - 328 [facility] [[email or web address] LABORATORY 10*3/L [facility] MPV 10.0 9.8 - 13.[address] [facility] NRBC/100 WBC 0.0 0.0 - 10.0 /[address] [facility] [address] [facility] NRBC x10^3 <0.01 10*3/L [facility] GRAN MAT (NEUT) % 53.4 % [facility] IMM GRAN % 0.80 % [facility] LYMPH % 30.6 % [facility] MONO % 12.0 % [facility] EOS % 2.4 % [facility] BASO % 0.8 % [facility] GRAN MAT x10^3(ANC) 4.91 1.99 - 6.95 [facility] 10*3/uL [facility] IMM GRAN x10^3 0.07 (H) 0.00 - 0.06 [facility] 10*3/uL [facility] LYMPH x10^3 2.81 1.09 - 3.23 [facility] 10*3/uL [facility] MONO x10^3 1.10 (H) 0.36 - 1.02 [facility] 10*3/uL [facility] EOS x10^3 0.22 0.06 - 0.53 [facility] 10*3/uL [facility] BASO x10^3 0.07 0.01 - 0.09 [facility] 10*3/uL [facility] Specimen Blood - VENOUS Performing Organization Address City/State/Zipcode Phone Number [facility] [[email or web address] LABORATORY CLIA: [id number] [place] [address] [facility] [address] COMP. METABOLIC PANEL (95437) (02/28/2020 9:29 PM EQUIPMENT ASSOCIATE) NA 132 (L) 135 - 145 [facility] mmol/L [facility] K 4.1 3.5 - 5.0 [facility] mmol/L [facility] CL 93 (L) 98 - 108 mmol/L [facility] [[email or web address]] LABORATORY [facility] CO2 TOTAL 28 23 - 31 mmol/L [facility] [[email or web address] LABORATORY [facility] AGAP 11 2 - [address] [facility] [address] [facility] BUN 7 7 - 23 mg/dL [facility] [[email or web address] LABORATORY [facility] GLUCOSE 300 (H) 70 - 110 mg/dL [facility] CREATININE 0.58 (L) 0.60 - 1.25 [email or web address] LABORATORY mg/dL [facility] TOTAL BILI 0.4 0.1 - 1.1 mg/dL [facility] CALCIUM 9.8 8.6 - 10.6 [email or web address] LABORATORY mg/dL [facility] T PROTEIN 7.2 6.3 - 8.2 g/dL [facility] ALBUMIN 4.3 3.5 - 5.0 g/dL [facility] [[email or web address]] LABORATORY [facility] ALK PHOS 89 34 - 122 U/L [facility] [[email or web address]] LABORATORY [facility] ALTv 22 5 - 50 U/L [facility] AST(SGOT) 23 13 - 40 U/L [facility] [[email or web address]] LABORATORY [facility] eGFR Calculation 152.2 mL/min/1.73m2 [facility] [[email or web address]] LABORATORY (Non- [facility]) [facility] eGFR Calculation 184.5 mL/min/1.73m2 [facility] [[email or web address] LABORATORY () [facility] Specimen Blood - VENOUS Narrative Performed At Association of Glomerular Filtration Rate [facility] (GFR) and Staging of Kidney Disease* [...] [facility] [[email or web address]] LABORATORY CLIA: [id number] [place] [id number] SERVICES-[facility] [address] POCT GLUCOSE (AUTOMATED) (02/28/2020 8:45 PM EQUIPMENT ASSOCIATE) Pathologist Sig nature POCT GLU 316 (H) 70 - 110 mg/dL [facility] Specimen Blood Performing Organization Address City/State/Zipcode Phone Number [facility] CLIA: [id number] [place] [address] documented in this encounter Visit Diagnoses Diagnosis Syncope, unspecified syncope type - Prim pancho Hyperglycemia Other abnormal glucose Dehydration documented in this encounter Administered Medications Medication Order MAR Action Action Date Dose Rate Site magnesium sulfate in D5W 1 gram/100 Given 02/28/2020 10:52 PM CS T 1 g mL RTU IV Piggyback 1 g 1 g, IV Piggyback, ONCE, 1 dose, 02/28/20 at 2315, 100 mL NaCl 0.9% (NS) bolus infusion New Bag 02/28/2020 10:52 PM EQUIPMENT ASSOCIATE 1,000 mL 999 mL/hr 1,000 mL at 999 mL/hr, 1,000 mL, IV Infusion, ONCE, 1 dose, 02/28/20 at 2230, STAT documented in this encounter Insurance Payer Benefit Plan / Subscriber ID Effective Phone Address T ype Group Dates SYDNI TROY [id number] 2016-[address] Medic aid [place] [id number] MA[place]ED [place] documented as of this encounter
--- OUTSIDE RECORDS SUMMARY | 2020-04-27 19:37 | XMS REPORT | Summary of Care ---
:1975 Author Organization [facility] Address [address] [place] [address] Care Team Providers Name Role Phone Terrence Liang MD Primary Care Provider Unavailable Reason for Visit Reason Comments Suicidal ideation Auth/Cert Status Reason Specialty Diagnoses / Referred By Referred To Procedures Contact Contact Emergency Medicine [facility] Em ergency Dept [address] [place] [address] Encounter Details Date Type Department Care Team Description 02/11/2020 - Emergency [facility]-Emergency Christian Ram am, MD [address] [facility] [address] [place] [address] [phone] Suicidal ideation (Primary Dx); 02/12/2020 Department Kenji Watson DO [address] [facility] [address] [place] [address] [phone] Schizophrenia, unspecified type [address] [place] [address] Allergies No Known Allergiesdocumented as of this encounter (statuses as of 02/12/2020) Medications Medication Sig Dispensed Refills Start Date [...] as of this encounter (statuses as of 02/12/2020) Active Problems No known active problemsdocumented as of this encounter (statuses as of 02/12/2020) Social History Tobacco Use Types Packs/Day Years Used Date Never Assessed Sex Assigned at Date Recorded Not on file COVID-19 Exposure Response Date Recorded In the last month, have you been in contact with No / Unsure 02/11/2020 8:12 PM WOMEN SPECIALIST someone who was confirmed or suspected to have Coronavirus / COVID-19? documented as of this encounter Last Filed Vital Signs Vital Sign Reading Time Taken Comments Blood Pressure 143/91 02/12/2020 2:11 PM WOMEN SPECIALIST Pulse 89 02/12/2020 2:11 PM WOMEN SPECIALIST Temperature 36.8 C (98.3 F) 02/12/2020 2:11 PM WOMEN SPECIALIST Respiratory Rate 18 02/12/2020 2:11 PM WOMEN SPECIALIST Oxygen Saturation 96% 02/12/2020 2:11 PM WOMEN SPECIALIST Inhaled Oxygen Concentration - - Weight 86.2 kg (190 lb) 02/11/2020 8:14 PM WOMEN SPECIALIST Height 162.6 cm (5' 4") 02/11/2020 8:14 PM WOMEN SPECIALIST Body Mass Index 32.61 02/11/2020 8:14 PM WOMEN SPECIALIST documented in this encounter Progress Notes Sohan Mcclain LMSW - 02/12/2020 12:02 PM CSTSocial Work Note: 02/12/2020 12:02 PM SW contacted [facility] they are awaiting approval from [address] [address] F: [phone] still pending. Pt accepted to [place] at 2:00 pm. Sohan Mcclain LMSW Social Work/Care Management Office.[phone]. Cell. [phone] Email. [email or web address] N SPECIALIST documented in this encounter ED Notes Sohan Mcclain LMSW - 02/12/2020 1:52 PM CSTSummary: DC Care Management Discharge Disposition Note (DCDN) 5-2-1 Interventions: Clear discharge plan 5-2-1 Providers: Marketing Graphics Specialist/Dude Ranch Manager 5-2-1 Patient Capacity Improvements: Transportation arrangements Discharge Plan for ongoing care and services: Psychiatric Facilities Patient Choice completed for referred services: Discussed with patient/patients family involved in decision making: Patient or family caregiver understands, and agrees with discharge plan Patient's family or support contact: Updated patient on possible placement. Discharge Plan: Psychiatric Facilities DME location: Other DME location: Durable Medical Equipment: Home Health location: Discharge location(s): Psychiatric facility: [address] () [phone] () [phone] Community resources/referrals made or provided to patient: Resources/Referrals: Mental Status: Alert & Oriented to Person,Place & Time Psychosocial issues and/or concerns resulting in patient being a high risk for re-admission: Manage ADL indepentdly: Yes Living Arrangement: Other living arrangement: Address of living arrangement: [address] [place] [address], [facility]* Funding Resources: Medicaid Has patient been referred to [facility]? Nursing informed of discharge plan: CHP referral sent? No CM medication request completed (if appropriate): No PCP: Yes Terrence Liang MD Transportation: Ambulance Prior authorization obtained for ambulance: Authorization number: SW faxed prior auth form to .[phone] [phone] for Jose dilia [phone] CPT code: A0428 - Ambulance service, basic life support, non-emergency transport Discharge Medications Will the patient be able to obtain his medications? Yes Does the patient have transportation to to obtain the prescription medications? Yes CM Medication Request completed (if appropriate): Yes Name of RN informed: Expected discharge date: Time: 2:30 pm. Additional Information: MARYLIN to TAWANDA Price provided pt with resources for mental health. Provided support. MOT, Exclusionary, covid screen completed on chart. ALISSA/TAWANDA Name & Contact number: SOHAN MCCLAIN LMSW Ph. [phone] The following information has been provided to the facility noted above: reason for the patient discharge or transfer; patients physical and psychosocial status; summary of care, treatment, servicesprovided to patient; and the patient progress toward goals. Sohan Walker LMSW - 02/12/2020 9:03 AM CSTSocial Work Note: 02/12/2020 9:03 AM Patient has been identified as at risk for suicide and has been provided resources for counseling and follow-up care for at risk suicide. Resources from the patient's county, [facility], were provided. Pt pending acceptance to [address] [address] F: [phone] Sohan Mcclain LMSW Social Work/Care Management Office.[phone]. Cell. [phone] Email. [email or web address] N SPECIALIST Maribel Quiñonez RN - 02/11/2020 8:12 PM CSTBryn Camargo is a 44 year old male walked into ED, AA0x4 stating he has increased depression and having suicidal thoughts. Patient stating his plan is to jump in front of a moving car. N SPECIALIST Jame Ram MD - 02/11/2020 8:04 PM CST [facility] Emergency Department Note Patient Name: Bryn Camargo Date of : 1975 44 year old male Treatment Room: [place] [address] Primary Care Physician: Terrence Liang Patient Escorted by: Self [9] Mode of Arrival: Personal means [1] EMS Treatment Prior to ED Arrival: MOTION PICTURE FILM EXAMINER treatment: None Travel and Exposure Screening: Symptoms Does patient have any of these symptoms?: (not recorded) Exposure Screening Has patient had contact with someone with a communicable disease in the last month?: (not recorded) Diseases exposed to:: (not recorded) Is Patient ?: (not recorded) Exposure Date: (not recorded) Chief Complaint: Chief Complaint Patient presents with Suicidal ideation History of Present Illness: HPI This is a 44-year-old male with history of schizophrenia, hypertension, diabetes [facility] of [facility] thoughts. The patient reports he is hearing voices in his been thinking of jumping in front of a car to kill himself. He reports that he also is currently homeless. No other associated symptoms. No known alleviating or exacerbating factors. Past Medical History/Immunizations: Past Medical History: Diagnosis Date DM (diabetes mellitus) HTN (hypertension) Schizophrenia Tetanus received in last 5 years: Unknown Allergies: No Known Allergies Past Social History: Reports alcohol abuse Homeless Past Surgical History: No past surgical history on file. Review of Systems: A 10 point review of systems has been performed and is negative except as stated above in HPI. Review of Systems Physical Exam: ED Triage Vitals Weight 02/11/202013 86.2 kg (190 lb) Actual or estimated 02/11/202013 Estimated by patient/family report Height 02/11/202013 1.626 m (5' 4") BP 02/11/202013 139/74 Pulse 02/11/202013 102 Resp 02/11/201999 16 Temp 02/11/202013 37.1 C (98.8 F) Temp source 02/11/202013 Oral SpO2 02/11/202013 99 % Measured on 02/11/202013 Room air Physical Exam Vitals signs and nursing note reviewed. Constitutional: General: He is not in acute distress. Appearance: Normal appearance. HENT: Head: Normocephalic and atraumatic. Nose: No congestion. Mouth/Throat: Mouth: Mucous membranes are moist. Eyes: Conjunctiva/sclera: Conjunctivae normal. Neck: Musculoskeletal: No neck rigidity. Cardiovascular: Rate and Rhythm: Normal rate and regular rhythm. Pulmonary: Effort: No respiratory distress. Breath sounds: No wheezing. Abdominal: General: There is no distension. Tenderness: There is no abdominal tenderness. Musculoskeletal: General: No swelling or deformity. Skin: Coloration: Skin is not jaundiced. Findings: No bruising. Neurological: General: No focal deficit present. Mental Status: He is alert and oriented to person, place, and time. Psychiatric: Comments: +SI Radiology: No results found for this visit on 02/11/20. Lab Results (24h): Recent Results (from the past 24 hour(s)) Basic Metabolic Panel (NA, K, CL, CO2, Glucose, BUN, Creatinine, CA) Collection Time: 02/11/20 10:28 PM Result Value Ref Range NA 133 (L) 135 - 145 mmol/L K 3.4 (L) 3.5 - 5.0 mmol/L CL 98 98 - 108 mmol/L CO2 TOTAL 27 23 - 31 mmol/L AGAP 8 2 - 16 BUN 10 7 - 23 mg/dL GLUCOSE 267 (H) 70 - 110 mg/dL CREATININE 0.50 (L) 0.60 - 1.25 mg/dL CALCIUM 8.8 8.6 - 10.6 mg/dL eGFR Calculation (Non-) 180.6 mL/min/1.73m2 eGFR Calculation () 218.9 mL/min/1.73m2 Ethanol (ETOH) Level Collection Time: 02/11/20 10:28 PM Result Value Ref Range ALCOHOL <10 mg/dL CBC with Differential Collection Time: 02/11/20 10:28 PM Result Value Ref Range WBC 9.24 4.20 - 10.70 10*3/L RBC 4.33 4.26 - 5.52 10*6/L HGB 13.7 12.2 - 16.4 g/dL HCT 38.4 38.4 - 49.3 % MCV 88.7 81.7 - 95.6 fL MCH 31.6 26.1 - 32.7 pg MCHC 35.7 (H) 31.2 - 35.0 g/dL RDW-SD 39.1 38.5 - 51.6 fL RDW-CV 12.1 12.1 - 15.4 % PLT 238 150 - 328 10*3/L MPV 9.8 9.8 - 13.0 fL NRBC/100 WBC 0.0 0.0 - 10.0 /100 WBCs NRBC x10^3 <0.01 10*3/L GRAN MAT (NEUT) % 57.2 % IMM GRAN % 0.50 % LYMPH % 30.2 % MONO % 8.0 % EOS % 3.5 % BASO % 0.6 % GRAN MAT x10^3(ANC) 5.28 1.99 - 6.95 10*3/uL IMM GRAN x10^3 0.05 0.00 - 0.06 10*3/uL LYMPH x10^3 2.79 1.09 - 3.23 10*3/uL MONO x10^3 0.74 0.36 - 1.02 10*3/uL EOS x10^3 0.32 0.06 - 0.53 10*3/uL BASO x10^3 0.06 0.01 - 0.09 10*3/uL Hepatic Function Panel (ALB, T.PRO, BILI T, BU/BC, ALT, AST, ALK PHOS) Collection Time: 02/11/20 10:28 PM Result Value Ref Range TOTAL BILI 0.2 0.1 - 1.1 mg/dL BILI UNCON 0.0 (L) 0.1 - 1.1 mg/dL BILI CONJ 0.0 0.0 - 0.3 mg/dL T PROTEIN 6.6 6.3 - 8.2 g/dL ALBUMIN 3.7 3.5 - 5.0 g/dL ALK PHOS 113 34 - 122 U/L ALTv 32 5 - 50 U/L AST(SGOT) 27 13 - 40 U/L Thyroid Stimulating Hormone Collection Time: 02/11/20 10:28 PM Result Value Ref Range TSH 1.73 0.45 - 4.70 mIU/L Creatine Kinase Collection Time: 02/11/20 10:28 PM Result Value Ref Range CK 581 (H) 33 - 194 U/L Acetaminophen Collection Time: 02/11/20 10:28 PM Result Value Ref Range ACETAMINOP <10.0 (L) 10.0 - 30.0 ug/mL Salicylate Collection Time: 02/11/20 10:28 PM Result Value Ref Range SALICYLATE <10 mg/L COVID-19 (ID NOW RAPID TESTING) Collection Time: 02/12/20 2:05 AM Specimen: NASOPHARYNGEAL SWAB Result Value Ref Range SARS-CoV-2 Rapid ID NOW Not Detected Not Detected ER Drug Screen, Urine Collection Time: 02/12/20 2:09 AM Result Value Ref Range AMPHET Negative Negative Cocaine Metabolite Negative Negative OPIATES Negative Negative THC Negative Negative Orders and Treatments: Orders Placed This Encounter Procedures Basic Metabolic Panel (NA, K, CL, CO2, Glucose, BUN, Creatinine, CA) Ethanol (ETOH) Level CBC with Differential Hepatic Function Panel (ALB, T.PRO, BILI T, BU/BC, ALT, AST, ALK PHOS) ER Drug Screen, Urine Thyroid Stimulating Hormone Creatine Kinase Acetaminophen Salicylate COVID-19 (ID NOW RAPID TESTING) LAB ONLY COVID INTERPRETATION No orders of the defined types were placed in this encounter. ED COURSE MDM: Coding 44 male with +SI Psych screening labs Plan to transfer to psych facility Awaiting accepting facility Patient to be signed out to incoming ER doctor at 7am Scoring Tools: No data recorded Diagnosis/Impression: ICD-10-CM ICD-9-CM 1. Suicidal ideation R45.851 V62.84 Disposition/Condition: ED Disposition None Discharge Medications: Patient's Medications START taking these medications No medications on file CONTINUE taking these medications which have NOT CHANGED DIVALPROEX (DEPAKOTE) 500 MG EC TABLET Take 1 tablet by mouth every 12 (twelve) hours. FLUPHENAZINE DECANOATE 25 MG/ML INJECTION 12.5 mg by Intramuscular route every 14 (fourteen) days. LITHIUM ASPARTATE ORAL Take by mouth. METFORMIN 500 MG TABLET Take 1 tablet by mouth 2 (two) times daily. RISPERIDONE 0.25 MG TBDL Take 0.25 mg by mouth every evening. START taking Modified Medications as Prescribed No medications on file STOP taking these medications No medications on file Electronically signed by: Jame Ram MD 02/11/2020 10:12 PM N SPECIALIST Associated attestation - Kenji Watson DO - 02/12/2020 8:02 AM CSTCase discussed with Paty at 0750 Dr Mario Will accept transfer for suicidalitydocumented in this encounter Miscellaneous Notes ED Nurse Note - Jacque Cheung RN - 02/12/2020 2:33 PM CSTPatient left VIA ems at 1416. 4 bags of belongings went with him. D Mental Health Note - Kenji Watson DO - 02/12/2020 8:15 AM CST Psychiatric Re-Evaluation Note Emergency Department Date: February 12, 2020 I have reassessed the patient on this shift. The patient states or demonstrates that they are still having: Suicidal ideation or thoughts: Yes Homicidal ideation or thoughts: NO:[id number]} Auditory and/or visual hallucinations: Yes Psychosis, paranoia, or other mental instability impairing normal decision making: Yes Suggested risk level of Ballwin: High On reassessment, the patient should still be transferred for psychiatric assessment and care: Yes If no, explain: The patient remains medically stable for psychiatric transfer. Yes If no, explain: The patient remains {need a list created for: Voluntaryfor psychiatric treatment. The patient is being treated for the following medical conditions: Diabetes Mellitus The patient has been given or is being treated with the following medications: Orders Placed This Encounter Medications NaCl 0.9% (NS) bolus infusion 1,000 mL Kenji Watson DO D Nurse Note - Jacque Cheung RN - 02/12/2020 7:45 AM CSTPatient remains under suicide precautions. Continuous observation in place, patient currently laying down. D Nurse Note - Nicole Rivas RN - 02/12/2020 6:50 AM CSTPatient remains under suicide precautions. Continuous observation in place, patient currently sleeping. D Nurse Note - Jerrica Dupont RN - 02/12/2020 6:30 AM CSTbs 265 D Nurse Note - Alejandrina Downs RN - 02/12/2020 6:23 AM CSTSummary: report to [facility] This RN gave telephone report to GARCIA Cavazos from [facility]. Macy verbalized understanding. Awaiting doc to doc report. D Nurse Note - Nicole Rivas RN - 02/12/2020 4:50 AM CSTPatient remains under suicide precautions. Continuous observation in place, patient currently sleeping. D Nurse Note - Nicole Rivas RN - 02/12/2020 2:50 AM CSTPatient remains under suicide precautions. Continuous observation in place, patient currently sleeping. D Nurse Note - Nicole Rivas RN - 02/12/2020 2:01 AM CSTTransfer initiated with Alexand[facility] at [facility]. D Nurse Note - Nicole Rivas RN - 02/12/2020 12:50 AM WOMEN SPECIALIST Patient remains under suicide precautions. Continuous observation in place, patient currently sleeping. D Nurse Note - Nicole Rivas RN - 02/11/2020 10:50 PM CSTPatient remains under suicide precautions. Continuous observation in place, patient currently sleeping. Sitter in place. D Nurse Note - Nicole Rivas RN - 02/11/2020 8:50 PM CSTPatient and family members educated on emergency department behavioral process and precautions. Educated on need for direct observation, removal of belongings, and clearing of room for patient and staff safety. Patient and family given community resources for outpatient treatment and care. N SPECIALIST Suicide Risk Assessment Note - Jame Ram MD - 02/11/2020 8:30 PM WOMEN SPECIALIST Suicide Risk - Assessment and Plan [place]: 1) Wish to be : Yes 3) Suicidal thoughts with method (with no specific plan or intent to act): Yes 3a) Describe: jump in front of car 4) Suicidal intent without specific plan: No 5) Intent with plan: Yes 6) Suicidal behavior: Yes 6b) Was it in the past 3 months?: No Ballwin Score: )Suggested risk level: High SAFE-T: Presenting symptoms: Hopelessness or despair Clinical Status: Hopelessness Precipitants / stressors: Substance intoxication or withdrawal Access to Lethal Means: Does patient have access to a gun or access to guns?: No Protective Factors: Specific Questions of Thoughts, Plans, Intent: Frequency- how many times have you had these thought?: Many times a day Behavior Assessment: 1.Were there preparatory acts like buying pills, guns, giving things away, or writing suicide note?:No 2.Was an attempt aborted or self - interrupted?: No 3.Was an attempt interrupted by someone else?: No 4.Was there an actual attempt?: No 5.Is there non suicidal self injury? Cutting, biting, skin picking: No 7.Is there homicidal ideation: if so, describe: No Stratification: High Suicide Risk Moderate Suicide Risk [...] or Behavior Location / Risk: Inpatient / High: Suicidal ideation with intent and with realistic plan and no protective factors in past month OR suicidal behavior within the past 3 months. Includes suicidal behavior as reason for admission. a. Mitigate the risk for suicide by instituting one-one monitoring, removing objects that pose a risk for self-harm, assessing objects brought into a room by visitors, using safe transportation procedures when moving patient to another part of the unit or another part of the hospital, and performing the checklist recommendations for a safe environment. b. Food tray in plastic or paper containers with plastic utensils (no knives or aluminum cans). c. Transfer to Inpatient Psychiatry facility/Psychiatry Consult once medically cleared. d. Follow-up determined by the inpatient Psychiatric facility. D Mental Health Note - Jame Ram MD - 02/11/2020 8:30 PM CST Suicide Risk - Assessment and Plan [place]: 1) Wish to be : Yes 3) Suicidal thoughts with method (with no specific plan or intent to act): Yes 3a) Describe: jump in front of car 4) Suicidal intent without specific plan: No 5) Intent with plan: Yes 6) Suicidal behavior: Yes 6b) Was it in the past 3 months?: No Ballwin Score: Suggested risk level: High SAFE-T: Presenting symptoms: Hopelessness or despair Precipitants / stressors: Substance intoxication or withdrawal Stratification: High Suicide Risk Moderate Suicide Risk [...] or Behavior Location / Risk: Inpatient / High: Suicidal ideation with intent and with realistic plan and no protective factors in past month OR suicidal behavior within the past 3 months. Includes suicidal behavior as reason for admission. a. Mitigate the risk for suicide by instituting one-one monitoring, removing objects that pose a risk for self-harm, assessing objects brought into a room by visitors, using safe transportation procedures when moving patient to another part of the unit or another part of the hospital, and performing the checklist recommendations for a safe environment. b. Food tray in plastic or paper containers with plastic utensils (no knives or aluminum cans). c. Transfer to Inpatient Psychiatry facility/Psychiatry Consult once medically cleared. d. Follow-up determined by the inpatient Psychiatric facility. 44-year-old male presents with suicidal thoughts and plan. Will plan to obtain medical screening labs and plan to transfer the patient to a psychiatric facility. D Nurse Note - Maribel Quiñonez RN - 02/11/2020 8:16 PM CSTCharge nurse aware of patient primary complaint, instructed to place in waiting room at this time. N SPECIALIST documented in this encounter Plan of Treatment Name Type Priority Associated Diagnoses Date/Ti me LAB ONLY COVID LAB STAT Suicidal ideation 02/12/20 20 2:05 AM INTERPRETATION WOMEN SPECIALIST Name Type Priority Associated Diagnoses Order S chedule LAB ONLY COVID LAB Routine Suicidal ideation ONCE for 1 Occurrences INTERPRETATION starting 08/2019 until 0 Health Maintenance Due Date Last Done Comments PNEUMOCOCCAL 0-64 YEARS COMBINED SERIES (1 of 1 - 10/04/1981 PPSV23) Depression Screening 1987 DTaP,Tdap,and Td Vaccines (1 - Tdap) 10/04/1994 INFLUENZA VACCINE (#1) 2019 documented as of this encounter Procedures Procedure Name Priority Date/Time Associated Comments Diagnosis POCT GLUCOSE Routine 02/12/2020 7:43 Results for this (AUTOMATED) AM WOMEN SPECIALIST procedure are i n the results section. POCT GLUCOSE Routine 02/12/2020 6:28 Results for this (AUTOMATED) AM WOMEN SPECIALIST procedure are i n the results section. GALV/CLC ONLY - URINE STAT 02/12/2020 2:09 Suicidal ideati on Results for this DRUG (IMMUNOASSAY) - 4 AM WOMEN SPECIALIST proce dure are in ER PANEL the results section. COVID-19 (ID NOW RAPID STAT 02/12/2020 2:05 Suicidal ideat ion Results for this TESTING) AM WOMEN SPECIALIST procedure are i n the results section. CBC WITH DIFF STAT 02/11/2020 10:28 Suicidal ideation Resul ts for this PM WOMEN SPECIALIST procedure are i n the results section. ETHANOL STAT 02/11/2020 10:28 Suicidal ideation Result s for this PM WOMEN SPECIALIST procedure are i n the results section. SALICYLATE STAT 02/11/2020 10:28 Suicidal ideation Result s for this PM WOMEN SPECIALIST procedure are i n the results section. ACETAMINOPHEN STAT 02/11/2020 10:28 Suicidal ideation Resul ts for this PM WOMEN SPECIALIST procedure are i n the results section. BASIC METABOLIC PANEL STAT 02/11/2020 10:28 Suicidal ideati on Results for this (NA, K, CL, CO2, PM WOMEN SPECIALIST procedure a re in GLUCOSE, BUN, the results CREATININE, CA) section. HEPATIC FUNCTION PANEL STAT 02/11/2020 10:28 Suicidal ideat ion Results for this (20743) PM WOMEN SPECIALIST procedure are i n (ALB,T.PRO,BILI the results T,BU/BC,ALT,AST,ALK section. PHOS) THYROID STIMULATING STAT 02/11/2020 10:28 Suicidal ideation Results for this HORMONE PM WOMEN SPECIALIST procedure are i n the results section. CREATINE KINASE STAT 02/11/2020 10:28 Suicidal ideation Res ults for this PM WOMEN SPECIALIST procedure are i n the results section. documented in this encounter Results POCT GLUCOSE (AUTOMATED) (02/12/2020 7:43 AM WOMEN SPECIALIST) Pathologist Sig nature POCT GLU 240 (H) 70 - 110 mg/dL [facility] Specimen Blood Performing Organization Address [facility] Phone Number [facility] CLIA: [id number] [place] [address] POCT GLUCOSE (AUTOMATED) (02/12/2020 6:28 AM WOMEN SPECIALIST) Pathologist Sig [facility] POCT GLU 265 (H) 70 - 110 mg/dL [facility] Specimen Blood Performing Organization Address [facility] Phone Number [facility] CLIA: [id number] [place] [address] [address] Drug Screen, Urine (02/12/2020 2:09 AM WOMEN SPECIALIST) Pathologist Sig [facility] AMPHET Negative Negative [facility] Cocaine Metabolite Negative Negative [facility] OPIATES Negative Negative [facility] THC Negative Negative [facility] Specimen Urine - URINE, CLEAN CATCH Narrative Performed At Urine Drug Cutoff Ranges [facility] Amphetamine: 1,000 ng/mL Cocaine: 150 ng/mL Opiates: 300 ng/mL Cannabinoids: 50 ng/mL The results are to be used only for medical (i.e., treatment) purposes. Unconfirmed screening results must not be used for non-medical purposes (e.g., employment testing, legal testing). Performing Organization Address [facility] [facility] Phone Number [facility] CLIA: [id number] [place] [address] [facility] [address] COVID-19 (ID NOW RAPID TESTING) (02/12/2020 2:05 AM WOMEN SPECIALIST) SARS-CoV-2 Rapid ID Not Detected Not Detected [facility] Specimen Swab - NASOPHARYNGEAL SWAB Narrative Performed At ID NOW COVID-19 Assay is an isothermal [facility] nucleic acid amplification test intended for CAMPUS the qualitative detection of nucleic acid from SARS-CoV-2 viral RNA in nasopharyngeal (MANAGER PET) specimens. It is used under Emergency Use [...] testing if clinically indicated. Performing Organization Address City/[facility] Phone Number [facility] CLIA: [id number] [place] [address] [facility] [address] Salicylate (02/11/2020 10:28 PM WOMEN SPECIALIST) Pathologist Sig nature SALICYLATE <10 mg/L [facility] Specimen Blood - ARM, RIGHT Narrative Performed At Therapeutic Range: [facility] Analgesic and Antipyretic Use 20-100 mg/L Anti-Inflammatory Use 100-250 mg/L Toxic Range: Greater than 300 mg/L Performing Organization Address [facility] Phone Number [facility] CLIA: [id number] [place] [address] [facility] [address] Acetaminophen (02/11/2020 10:28 PM WOMEN SPECIALIST) Pathologist Sig nature ACETAMINOP <10.0 (L) 10.0 - 30.0 ug/mL [facility] Specimen Blood - ARM, RIGHT Narrative Performed At Toxic: Greater than 200 ug/mL @ 4 hour [facility] post ingestion or greater than 50 ug/mL @ 12 hour post ingestion Performing Organization Address City/[facility] Phone Number [facility] CLIA: [id number] [place] [address] [facility] [address] Creatine Kinase (02/11/2020 10:28 PM WOMEN SPECIALIST) Pathologist Sig [facility] CK 581 (H) 33 - 194 U/L [facility] Specimen Blood - ARM, RIGHT Performing Organization Address City/[facility] Phone Number [facility] CLIA: [id number] [place] [address] [facility] [address] Thyroid Stimulating Hormone (02/11/2020 10:28 PM WOMEN SPECIALIST) Pathologist Sig [facility] TSH 1.73 0.45 - 4.70 mIU/L [facility] Specimen Blood - ARM, RIGHT Performing Organization Address [facility] Phone Number [facility] CLIA: [id number] [place] [address] [facility] [address] Hepatic Function Panel (ALB, T.PRO, BILI T, BU/BC, ALT, AST, ALK PHOS) (02/11/2020 10:28 PM WOMEN SPECIALIST) Pathologist Sig [facility] TOTAL BILI 0.2 0.1 - 1.1 mg/dL [facility] BILI UNCON 0.0 (L) 0.1 - 1.1 mg/dL [facility] BILI CONJ 0.0 0.0 - 0.3 mg/dL [facility] T PROTEIN 6.6 6.3 - 8.2 g/dL [facility] ALBUMIN 3.7 3.5 - 5.0 g/dL [facility] ALK PHOS 113 34 - 122 U/L [facility] ALTv 32 5 - 50 U/L [facility] AST(SGOT) 27 13 - 40 U/L [facility] Specimen Blood - ARM, RIGHT Performing Organization Address [facility] Phone Number [facility] CLIA: [id number] [place] [address] [facility] [address] CBC with Differential (02/11/2020 10:28 PM WOMEN SPECIALIST) Pathologist Sig nature WBC 9.24 4.20 - 10.70 [facility] 10*3/L [facility] RBC 4.33 4.26 - 5.52 [facility] 10*6/L [facility] HGB 13.7 12.2 - 16.4 [facility] g/dL [facility] HCT 38.4 38.4 - 49.3 % [facility] MCV 88.7 81.7 - 95.6 fL [facility] MCH 31.6 26.1 - 32.7 pg [facility] MCHC 35.7 (H) 31.2 - 35.0 [facility] g/dL [facility] RDW-SD 39.1 38.5 - 51.6 fL [facility] RDW-CV 12.1 12.1 - 15.4 % [facility] PLT 238 150 - 328 [facility] 10*3/L [facility] MPV 9.8 9.8 - 13.0 fL [facility] NRBC/100 WBC 0.0 0.0 - 10.0 /100 [facility] WBCs [facility] NRBC x10^3 <0.01 10*3/L [facility] GRAN MAT (NEUT) % 57.2 % [facility] IMM GRAN % 0.50 % [facility] LYMPH % 30.2 % [facility] MONO % 8.0 % [facility] EOS % 3.5 % [facility] BASO % 0.6 % [facility] GRAN MAT x10^3(ANC) 5.28 1.99 - 6.95 [facility] 10*3/uL [facility] IMM GRAN x10^3 0.05 0.00 - 0.06 [facility] 10*3/uL [facility] LYMPH x10^3 2.79 1.09 - 3.23 [facility] 10*3/uL [facility] MONO x10^3 0.74 0.36 - 1.02 [facility] 10*3/uL [facility] EOS x10^3 0.32 0.06 - 0.53 [facility] 10*3/uL [facility] BASO x10^3 0.06 0.01 - 0.09 [facility] 10*3/uL [facility] Specimen Blood - ARM, RIGHT Performing Organization Address City/State/Zipcode Phone Number [facility] CLIA: [id number] [place] [address] [facility] [address] Ethanol (ETOH) Level (02/11/2020 10:28 PM WOMEN SPECIALIST) Pathologist Sig nature ALCOHOL <10 mg/dL [facility] Specimen Blood - ARM, RIGHT Narrative Performed At Toxic Greater than or equal to 80 mg/dL. [facility] NOTE: Whole blood values are approximately 10% to 15% lower than serum and plasma. Performing Organization Address [facility] Phone Number [facility] CLIA: [id number] [place] [address] [facility] [address] Basic Metabolic Panel (NA, K, CL, CO2, Glucose, BUN, Creatinine, CA) (02/11/2020 10:28 PM WOMEN SPECIALIST) NA 133 (L) 135 - 145 [facility] mmol/L [facility] K 3.4 (L) 3.5 - 5.0 [facility] mmol/L [facility] CL 98 98 - 108 mmol/L [facility] CO2 TOTAL 27 23 - 31 mmol/L [facility] AGAP 8 2 - 16 [facility] BUN 10 7 - 23 mg/dL [facility] GLUCOSE 267 (H) 70 - 110 mg/dL [facility] CREATININE 0.50 (L) 0.60 - 1.25 [facility] mg/dL [facility] CALCIUM 8.8 8.6 - 10.6 [facility] mg/dL [facility] eGFR Calculation 180.6 mL/min/1.73m2 [facility] (Non- [facility]) [place] eGFR Calculation 218.9 mL/min/1.73m2 [facility] () [facility] Specimen Blood - ARM, RIGHT Narrative Performed At Association of Glomerular Filtration Rate [facility] (GFR) and Staging of Kidney [...] tests). Performing Organization Address City/State/Zipcode Phone Number [facility] CLIA: [id number] [place] [address] [facility] [address] documented in this encounter Visit Diagnoses Diagnosis Suicidal ideation - Primary Schizophrenia, unspecified type documented in this encounter Administered Medications Medication Order MAR Action Action Date Dose Rate Site NaCl 0.9% (NS) bolus New Bag 02/12/2020 6:29 AM WOMEN SPECIALIST 1,000 mL 99 9 mL/hr infusion 1,000 mL at 999 mL/hr, 1,000 mL, IV Piggyback, ONCE, 1 dose, Susana 02/12/20 at 0715, STAT documented in this encounter Additional Health Concerns Infection Onset Date Last Indicated Resolved Time COVID-19 Rule Out 02/12/2020 02/12/2020 02/12/2020 2: 59 AM WOMEN SPECIALIST documented as of this encounter Insurance Payer Benefit Plan / Subscriber ID Effective Phone Address T ype Group Dates SYDNI TROY [id number] 2016-[address] [place] [employer] [facility] - [place] [id number] MANAGED MEDICAID [place], [place]ICA[place] documented as of this encounter
--- OUTSIDE RECORDS SUMMARY | 2020-04-27 19:38 | XMS REPORT | Summary of Care ---
:1975 Author Organization [facility] - Health Address [address] [place] [id number] Care Team Providers Name Role Phone Pcp, Patient Does Not Have A Primary Care Provider +[id number] 0-0000 Reason for Visit Reason Comments Pain Encounter Details Date Type Department Care Team Description 04/23/2020 - Emergency ADC-Emergency Jyothi, Bryn Reinaldo, Hyperglyc emia (Primary Dx); 04/24/2020 Department MD Medication refill [address] [facility] [id number] [place] [address] [place], [place] [phone] [phone] Allergies No Known Allergiesdocumented as of this encounter (statuses as of 04/24/2020) Medications Medication Sig Dispensed Refills Start End Date Status Date LITHIUM ASPARTATE Take by mouth. 0 Active ORAL fluPHENAZine 12.5 mg by 0 Active decanoate 25 Intramuscular mg/mL injection route every 14 (fourteen) days. gabapentin Take 1 capsule by 30 capsule 0 Active (NEURONTIN) 100 mouth 3 (three) 0 mg times daily. capsuleIndication s: Neuropathy divalproex 500 mg Take 1 tablet by 60 tablet 0 04/30 Active EC mouth every 12 0 21 tabletIndications (twelve) hours : Medication for 30 days. refill Risperidone 0.25 Take 1 TAB-CAP/M2 30 tablet 0 04/30 Active mg by mouth every 0 21 TbDLIndications: morning for 30 Medication refill days. divalproex Take 1 tablet by 20 tablet 0 Ac tive (DEPAKOTE) 500 mg mouth every 12 1 EC (twelve) hours. tabletIndications : Medication refill metFORMIN 500 mg Take 1 tablet by 60 tablet 0 Active tabletIndications mouth 2 (two) 1 : Hyperglycemia times daily. Risperidone 0.25 Take 0.25 mg by 20 tablet 0 Active mg mouth every 1 TbDLIndications: evening. Medication refill glipiZIDE 5 mg Take 1 tablet by 30 tablet 0 Active tabletIndications mouth daily. 1 : Hyperglycemia, Medication refill metFORMIN 500 mg Take 1 tablet by 60 tablet 0 Discontinued tabletIndications mouth 2 (two) 0 21 (Reorder) : Hyperglycemia times daily. Risperidone 0.25 Take 0.25 mg by 20 tablet 0 0 Discontinued mg mouth every 0 21 (Reorder ) TbDLIndications: evening. Medication refill divalproex Take 1 tablet by 20 tablet 0 04/23/19 Di scontinued (DEPAKOTE) 500 mg mouth every 12 0 21 (Reorder) EC (twelve) hours. tabletIndications : Medication refill metFORMIN 500 mg Take 1 tablet by 60 tablet 0 Discontinued tabletIndications mouth 2 (two) 0 21 (Duplicate) : Medication times daily with refill meals. documented as of this encounter (statuses as of 04/24/2020) Active Problems Problem Noted Date Suicidal ideation 04/21/2020 Auditory hallucinations 04/21/2020 Schizophrenia 04/13/2016 Uncontrolled type 2 diabetes mellitus with complicatio n, with long-term 04/13/2016 current use of insulin documented as of this encounter (statuses as of 04/24/2020) Social History Tobacco Use Types Packs/Day Years Used Date Never Assessed Sex Assigned at Date Recorded Not on file COVID-19 Exposure Response Date Recorded In the last month, have you been in contact with No / Unsure 04/23/2020 7:40 PM [employer] someone who was confirmed or suspected to have Coronavirus / COVID-19? documented as of this encounter Last Filed Vital Signs Vital Sign Reading Time Taken Comments Blood Pressure 138/79 04/23/2020 11:43 PM [employer] Pulse 83 04/23/2020 11:43 PM [employer] Temperature 36.8 C (98.2 F) 04/23/2020 7:37 PM [employer] Respiratory Rate 18 04/23/2020 11:43 PM [employer] Oxygen Saturation 97% 04/23/2020 11:43 PM [employer] Inhaled Oxygen Concentration - - Weight 72.6 kg (160 lb) 04/23/2020 7:37 PM [employer] Height 162.6 cm (5' 4") 04/23/2020 7:37 PM [employer] Body Mass Index 27.46 04/23/2020 7:37 PM [employer] documented in this encounter Discharge Instructions InstructionsBryn Roe MD - 04/23/2020IAGNOSIS 1. Diabetes Mellitus, uncontrolled 2. Schizophrenia Procedures in the ER today: Labs, EKG, examination Your Prescriptions and icna-nso-zipfqjh medication recommendations: Glipizide for diabetes Metformin twice a day for diabetes Depakote for mental health Risperdal every night for mental health Special Care Instructions: You need to follow up with [facility] in [place] for your mental health needs and medical needs FOLLOW-UP RECOMMENDATIONS: Follow up with a Primary Care Provider or Specialist in 2-5 days, especially if there is no improvement in your symptoms. To Follow up within the [facility] Healthcare system, try these options (clinic appointments are availableon a case by case basis): Schedule an appointment online at [email or web address] Call the Access Center at or Call your [facility] physician's office directly if you are already an established [facility] patient. Or, you may follow up with a provider of your choice, such as: A physician or provider of your choice [facility] [address], [address] [place] [address] [facility] [address] [place] [address] RETURN TO ER FOR WORSENING OF SYMPTOMS. documented in this encounter ED Notes Hazel Oseguera RN - 04/23/2020 7:39 PM CSTPatient states he is hearing voices, runny nose, diarrhea, patient still out of his medications, patient has been seen here for the same complaint X4 days ryn Roe MD - 04/23/2020 7:32 PM [employer]IVESTOCK [employer] [facility] Emergency Department Note Patient Name: Bryn Camargo Date of : 1975 44 year old male Treatment Room: [place] [address] Primary Care Physician: PATIENT DOES NOT HAVE A PCP Patient Escorted by: Self [9] Mode of Arrival: EMS - [facility] ([place]) [43] EMS Treatment Prior to ED Arrival: [facility]AND [facility] treatment: None Travel and Exposure Screening: Symptoms Does patient have any of these symptoms?: (not recorded) Exposure Screening Has patient had contact with someone with a communicable disease in the last month?: (not recorded) Diseases exposed to:: (not recorded) Is Patient ?: (not recorded) Exposure Date: (not recorded) Chief Complaint: Chief Complaint Patient presents with Pain History of Present Illness: 44 year-old with various complaints - back pain, shoulder pain, high blood sugar, out of medications, continued auditory hallucinations (baseline) but no SI or HI. Past Medical History/Immunizations: Past Medical History: Diagnosis Date DM (diabetes mellitus) HTN (hypertension) Schizophrenia Tetanus received in last 5 years: Unknown Childhood immunizations: Up-to-date Allergies: No Known Allergies Past Social History: Substance & Sexual Activity No substance use or sexual activity history on file. Past Surgical History: No past surgical history on file. Review of Systems: Review of Systems Constitutional: Negative for chills, fatigue and fever. HENT: Negative for congestion, rhinorrhea and sore throat. Eyes: Negative for photophobia and visual disturbance. Respiratory: Negative for chest tightness, shortness of breath and wheezing. Cardiovascular: Negative for chest pain, palpitations and leg swelling. Gastrointestinal: Negative for abdominal pain, constipation, diarrhea, nausea and vomiting. Genitourinary: Positive for polyuria and frequency. Negative for dysuria, urgency and hematuria. Musculoskeletal: Positive for back pain (for over a month after a fall. ). Negative for gait problemand neck stiffness. Skin: Negative for rash. Neurological: Positive for numbness (bilateral leg tingling/pain from neuropathy). Negative for dizziness, syncope, weakness and headaches. Psychiatric/Behavioral: Positive for hallucinations. Negative for agitation, behavioral problems, confusion, self-injury and suicidal ideas. The patient is not nervous/anxious. Endocrine: Positive for polydipsia and polyuria. Physical Exam: ED Triage Vitals [04/23/20 1937] Weight 72.6 kg (160 lb) Actual or estimated Height 1.626 m (5' 4") BP (!) 144/79 Pulse 91 Resp 20 Temp 36.8 C (98.2 F) Temp src SpO2 98 % Measured on Room air Physical Exam Vitals signs and nursing note reviewed. Constitutional: Appearance: He is well-developed. HENT: Head: Normocephalic and atraumatic. Mouth/Throat: Pharynx: No oropharyngeal exudate. Eyes: General: No scleral icterus. Conjunctiva/sclera: Conjunctivae normal. Pupils: Pupils are equal, round, and reactive to light. Neck: Musculoskeletal: Normal range of motion and neck supple. Trachea: No tracheal deviation. Comments: NEXUS negative Cardiovascular: Rate and Rhythm: Normal rate and regular rhythm. Heart sounds: Normal heart sounds. No murmur. Pulmonary: Effort: Pulmonary effort is normal. No respiratory distress. Breath sounds: Normal breath sounds. No wheezing. Abdominal: General: Bowel sounds are normal. There is no distension. Palpations: Abdomen is soft. Tenderness: There is no abdominal tenderness. Musculoskeletal: Normal range of motion. General: No tenderness. Right shoulder: Normal. Left shoulder: Normal. Right hip: Normal. Left hip: Normal. Cervical back: Normal. Thoracic back: Normal. Lumbar back: Normal. Comments: Rest of arms and legs normal. Full ROM. Sits up easily on his own. Skin: General: Skin is warm and dry. Findings: No rash. Neurological: General: No focal deficit present. Mental Status: He is alert and oriented to person, place, and time. Cranial Nerves: No cranial nerve deficit. Sensory: No sensory deficit. Motor: No weakness. Psychiatric: Attention and Perception: Attention normal. He perceives auditory hallucinations. Mood and Affect: Mood and affect normal. Speech: Speech normal. Behavior: Behavior normal. Behavior is cooperative. Thought Content: Thought content normal. Cognition and Memory: Cognition and memory normal. Judgment: Judgment normal. Radiology: No results found for this visit on 04/23/20. Lab Results (24h): Recent Results (from the past 24 hour(s)) BASIC METABOLIC PANEL (NA, K, CL, CO2, GLUCOSE, BUN, CREATININE, CA) Collection Time: 04/23/20 8:15 PM Result Value Ref Range NA 129 (L) 135 - 145 mmol/L K 3.5 3.5 - 5.0 mmol/L CL 93 (L) 98 - 108 mmol/L CO2 TOTAL 30 23 - 31 mmol/L AGAP 6 2 - 16 BUN 8 7 - 23 mg/dL GLUCOSE 386 (H) 70 - 110 mg/dL CREATININE 0.67 0.60 - 1.25 mg/dL CALCIUM 8.7 8.6 - 10.6 mg/dL eGFR Calculation (Non-) 128.9 mL/min/1.73m2 eGFR Calculation () 156.2 mL/min/1.73m2 COVID-19 (ID NOW RAPID TESTING) Collection Time: 04/23/20 8:19 PM Specimen: NASOPHARYNGEAL SWAB Result Value Ref Range SARS-CoV-2 Rapid ID NOW Not Detected Not Detected EKG: Normal 12 - lead EKG Orders and Treatments: Orders Placed This Encounter Procedures BASIC METABOLIC PANEL (NA, K, CL, CO2, GLUCOSE, BUN, CREATININE, CA) COVID-19 (ID NOW RAPID TESTING) LAB ONLY COVID INTERPRETATION Orders Placed This Encounter Medications NaCl 0.9% (NS) IV infusion 1,000 mL divalproex (DEPAKOTE) 500 mg EC tablet metFORMIN 500 mg tablet Risperidone 0.25 mg TbDL glipiZIDE 5 mg tablet ED COURSE ED Course as of Apr 23 2330SunApr 23, 2020 2326 Diarrhea - mild low Cl, but HCO3 is high. No diarrhea here. Can use immodium if needed. [GR] 2326 Medically stable, and fit for discharge. [GR] 2324 Has uncontrolled diabetes, and not taking his metformin. Musculoskeletal pain, but no acute injury or limitation.no indication for imaging. Off psychiatric medications, including those listed in JUN. Will give Rx for metformin, glipizide 5mg daily, and he understands he needs to follow up with [facility] for mental health needs. No acute SI/HI or delusions preventing normal function. He states he called a center in [place] that he planned to go to tomorrow to sign in for "1 month treatment plan." Nursing informs me that he stays this often, including the previous 3 nights he has been here for respite from outside. [GR] ED Course User Index [GR] Bryn Roe MD MDM: MDM Reviewed: previous chart, nursing note and vitals Reviewed previous: labs Interpretation: labs and ECG Diagnosis/Impression: ICD-10-CM ICD-9-CM 1. Hyperglycemia R73.9 790.29 2. Medication refill Z76.0 V68.1 Disposition/Condition: ED Disposition ED Disposition Condition Comment Disch - Home Stable Discharge Medications: Patient's Medications START taking these medications GLIPIZIDE 5 MG TABLET Take 1 tablet by mouth daily. CONTINUE taking these medications which have NOT CHANGED DIVALPROEX 500 MG EC TABLET Take 1 tablet by mouth every 12 (twelve) hours for 30 days. FLUPHENAZINE DECANOATE 25 MG/ML INJECTION 12.5 mg by Intramuscular route every 14 (fourteen) days. GABAPENTIN (NEURONTIN) 100 MG CAPSULE Take 1 capsule by mouth 3 (three) times daily. LITHIUM ASPARTATE ORAL Take by mouth. RISPERIDONE 0.25 MG TBDL Take 1 TAB-CAP/M2 by mouth every morning for 30 days. START taking Modified Medications as Prescribed Modified Medication Previous Medication DIVALPROEX (DEPAKOTE) 500 MG EC TABLET divalproex (DEPAKOTE) 500 mg EC tablet Take 1 tablet by mouth every 12 (twelve) hours. Take 1 tablet by mouth every 12 (twelve) hours. METFORMIN 500 MG TABLET metFORMIN 500 mg tablet Take 1 tablet by mouth 2 (two) times daily. Take 1 tablet by mouth 2 (two) times daily. RISPERIDONE 0.25 MG TBDL Risperidone 0.25 mg TbDL Take 0.25 mg by mouth every evening. Take 0.25 mg by mouth every evening. STOP taking these medications METFORMIN 500 MG TABLET Take 1 tablet by mouth 2 (two) times daily with meals. Follow-up: Contact information for follow-up Primary Care and with [facility] Electronically signed by: Bryn Roe MD 04/23/2020 8:07 PM [employer]OCK [employer] documented in this encounter Miscellaneous Notes ED Nurse Note - Hazel Oseguera RN - 04/24/2020 12:20 AM [employer] Awake, alert oriented X4, respiratory even and unlabored,skin w/d color appropriate for race, movesall ext well, pt encouraged to follow up with pcp and or return as needed Pt given printed and verbal discharge instructions regarding Hyperglycemia , patient verbralized understanding and signature obtained, patient denies any other concerns. Prescriptions provided Advised to seek medical attention for new/prolonged/worsening of symptoms, No adverse reaction to meds given in ER noted upon discharge Pt ambulated to the lobby with steady gait documented in this encounter Plan of Treatment Name Type Priority Associated Diagnoses Date/Ti me EKG-12 LEAD ONCE HEART STATION STAT Hyperglycemia 1 8:07 PM [employer] LAB ONLY COVID LAB Routine Hyperglycemia 04/23/2020 8:19 INTERPRETATION PM [employer] Name Type Priority Associated Diagnoses Order S chedule EKG-12 LEAD ONCE HEART STATION STAT Hyperglycemia ONCE for 1 Occurrences starting 2020 until 1 LAB ONLY COVID LAB Routine Hyperglycemia ONCE for 1 INTERPRETATION Occurrences starting 2020 until 1 Health Maintenance Due Date Last Done Comments HgA1C 10/04/1976 EYE EXAM 10/04/1985 LDL-C 10/04/1985 URINE MICROALBUMIN 10/04/1985 Depression Screening 1987 FOOT EXAM 10/04/1993 DTaP,Tdap,and Td Vaccines 10/04/1994 (1 - Tdap) INFLUENZA VACCINE (#1) 2019 CREATININE (SERUM) 04/22/2021 04/22/2020, 04/21/2020, 04/21/2020, Additional history exists PNEUMOCOCCAL 0-64 YEARS Aged Out No longe r eligible COMBINED SERIES based on patient 's age to complete this topic documented as of this encounter Procedures Procedure Name Priority Date/Time Associated Diagnosis Comme nts COVID-19 (ID NOW STAT 04/23/2020 8:19 Hyperglycemia Result s for this RAPID TESTING) PM [employer] procedure are in the results section. BASIC METABOLIC STAT 04/23/2020 8:15 Hyperglycemia Results for this PANEL (NA, K, CL, PM [employer] procedure are in CO2, GLUCOSE, BUN, the resul ts CREATININE, CA) section. documented in this encounter Results COVID-19 (ID NOW RAPID TESTING) (04/23/2020 8:19 PM LIVESTOCK FARMER) SARS-CoV-2 Rapid ID Not Detected Not Detected [facility] Specimen Swab - NASOPHARYNGEAL SWAB Narrative Performed At ID NOW COVID-19 Assay is an isothermal nucleic [facility] acid amplification test intended for the qualitative detection of nucleic acid from SARS-CoV-2 viral RNA in nasopharyngeal ([employer]) specimens. It is used under Emergency Use [...] testing if clinically indicated. Performing Organization Address City/State/Zipcode Phone Number [facility] CLIA: [id number] [place] [address] BASIC METABOLIC PANEL (NA, K, CL, CO2, GLUCOSE, BUN, CREATININE, CA) (04/23/2020 8:15 PM LIVESTOCK FARMER) [facility] NA 129 (L) 135 - 145 [facility] mmol/L [facility] K 3.5 3.5 - 5.0 [facility] mmol/L [facility] CL 93 (L) 98 - 108 mmol/L [facility] CO2 TOTAL 30 23 - 31 mmol/L [facility] AGAP 6 2 - 16 [facility] BUN 8 7 - 23 mg/dL [facility] GLUCOSE 386 (H) 70 - 110 mg/dL [facility] CREATININE 0.67 0.60 - 1.25 [facility] mg/dL [facility] CALCIUM 8.7 8.6 - 10.6 [facility] mg/dL [facility] eGFR Calculation 128.9 mL/min/1.73m2 [facility] ([facility] LAB[facility]AT[facility] [place]) eGFR Calculation 156.2 mL/min/1.73m2 [facility] () [facility] Specimen Blood - VENOUS Narrative Performed At Association of Glomerular Filtration Rate (GFR) [facility] and Staging of Kidney Disease* + + +- + | GFR (mL/min/1.73 m2) | With Kidney Damage | Without Kidney Damage + + +- + | >90 | Stage one | Normal + + +- + | 60-89 | Stage two | Decreased GFR + + +- + | 30-59 | Stage three | Stage three + + +- + | 15-29 | Stage four | Stage four + + +- + | <15 (or dialysis) | Stage five | Stage five + + +- + *Each stage assumes the associated GFR [...] tests). Performing Organization Address City/State/Zipcode Phone Number [facility] CLIA: [id number] [place] [address] documented in this encounter Visit Diagnoses Diagnosis Hyperglycemia - Primary Other abnormal glucose Medication refill Issue of repeat prescriptions documented in this encounter Administered Medications Medication Order MAR Action Action Date Dose Rate Site NaCl 0.9% (NS) IV infusion New Bag 04/23/2020 11:42 PM [employer] F[employer]ER 1,000 m L 999 mL/hr 1,000 mL at 999 mL/hr, Intravenous, ONCE, 1 dose, Sun04/23/20 at 2215, JEANE documented in this encounter Additional Health Concerns Infection Onset Date Last Indicated Resolved Time COVID-19 Rule Out 04/23/2020 04/23/2020 04/23/2020 8: 41 PM [employer]OCK [employer]ER documented as of this encounter Insurance Payer Benefit Plan / Subscriber ID Effective Phone Address T ype Group Dates SYDNI TROY [id number] [address] [place] [id number] [place] MEDICAID [place], [place] documented as of this encounter
--- OUTSIDE RECORDS SUMMARY | 2020-04-27 19:38 | XMS REPORT | Summary of Care ---
:1975 Author Organization [facility] - [facility] Address [address] [place] [id number] Care Team Providers Name Role Phone Pcp, Patient Does Not Have A Primary Care Provider +[id number] Reason for Visit Reason Comments SUICIDAL Auth/Cert Status Reason Specialty Diagnoses / Referred By Referred To Procedures Contact Contact Emergency Medicine [facility] Em ergency Dept [address] [place] [address] Fax: Encounter Details Date Type Department Care Team Description 04/21/2020 - Emergency ADC-Emergency Gopi Cheney MD Hyperglycemia (Primary Dx); 04/22/[address] [place] [address] Chronic mental illness; [address] [facility] [address] [place], [place] [id number] [place] [id number] Allergies No Known Allergiesdocumented as of this encounter (statuses as of 04/22/2020) Medications Medication Sig Dispensed Refills Start Date [...] as of this encounter (statuses as of 04/22/2020) Active Problems Problem Noted Date Suicidal ideation 04/21/2020 Auditory hallucinations 04/21/2020 Schizophrenia 04/13/2016 Uncontrolled type 2 diabetes mellitus with complicatio n, with long-term 04/13/2016 current use of insulin documented as of this encounter (statuses as of 04/22/2020) Social History Tobacco Use Types Packs/Day Years Used Date Never Assessed Sex Assigned at Date Recorded Not on file COVID-19 Exposure Response Date Recorded In the last month, have you been in contact with No / Unsure 04/21/2020 7:10 PM PSYCHOLOGICAL SCIENCE PROFESSOR someone who was confirmed or suspected to have Coronavirus / COVID-19? documented as of this encounter Last Filed Vital Signs Vital Sign Reading Time Taken Comments Blood Pressure 128/82 04/22/2020 6:00 AM PSYCHOLOGICAL SCIENCE PROFESSOR Pulse 76 04/22/2020 6:00 AM PSYCHOLOGICAL SCIENCE PROFESSOR Temperature 36.7 C (98.1 F) 04/22/2020 6:00 AM PSYCHOLOGICAL SCIENCE PROFESSOR Respiratory Rate 16 04/22/2020 6:00 AM PSYCHOLOGICAL SCIENCE PROFESSOR Oxygen Saturation 97% 04/22/2020 6:00 AM PSYCHOLOGICAL SCIENCE PROFESSOR Inhaled Oxygen Concentration - - Weight 63.5 kg (140 lb) 04/21/2020 7:26 PM PSYCHOLOGICAL SCIENCE PROFESSOR Height - - Body Mass Index 24.03 04/20/2020 11:32 PM PSYCHOLOGICAL SCIENCE PROFESSOR documented in this encounter Discharge Instructions InstructionsNeGopi ochoa MD - 04/22/2020 RETURN FOR ANY QUESTIONS OR CONCERNS Today you were seen by Gopi Cheney Jr., MD You were seen today for Chief Complaint Patient presents with SUICIDAL Your ER diagnosis was ICD-10-CM ICD-9-CM 1. Hyperglycemia R73.9 790.29 2. Chronic mental illness F99 300.9 3. Malingering Z76.5 V65.2 NO LIFE-THREATENING FINDINGS ON TODAY'S EXAM. YOUR PRESCRIPTIONS : Check out [employer] for medication discounts Medication List ASK your doctor about these medications * divalproex 500 mg EC tablet Commonly known as: Depakote Take 1 tablet by mouth every 12 (twelve) hours. * divalproex 500 mg EC tablet Commonly known as: DEPAKOTE Take 1 tablet by mouth every 12 (twelve) hours for 30 days. fluPHENAZine decanoate 25 mg/mL injection Commonly known as: PROLIXIN DECANOATE gabapentin 100 mg capsule Commonly known as: Neurontin Take 1 capsule by mouth 3 (three) times daily. LITHIUM ASPARTATE ORAL * metFORMIN 500 mg tablet Commonly known as: GLUCOPHAGE Take 1 tablet by mouth 2 (two) times daily. * metFORMIN 500 mg tablet Commonly known as: GLUCOPHAGE Take 1 tablet by mouth 2 (two) times daily with meals. * Risperidone 0.25 mg Tbdl Take 0.25 mg by mouth every evening. * Risperidone 0.25 mg Tbdl Take 1 TAB-CAP/M2 by mouth every morning for 30 days. * This list has 6 medication(s) that are the same as other medications prescribed for you. Read thedirections carefully, and ask your doctor or other care provider to review them with you. ER precautions and follow up : 1. Return to ER if your symptoms should worsen or fail to improve within 72 hours. 2. The care provided in the emergency room was for acute problems only. 3. You should follow up with your primary care provider within 72 hours. 4. Fill and take all your medications as prescribed. 5. Make sure you are staying adequately hydrated. Busque attencion immediatamente si usted tiene los sitomas sigue, vuelve peor o si hay sitomas nuevas o para cualquiera preoccupacion incluyendo dolor del pecho, falta aire, se siente debile, mas fievre, mas dolor, nausea, vomitando, sangrando que no es normal, confusion, baja or pierdas conciencia. MAY FOLLOW-UP WITH A PROVIDER OF YOUR CHOICE, SUCH : 1. A PHYSICIAN OF YOUR CHOICE 2. [facility], . LOCATIONS IN [facility] 3. [facility], [address] [place], [place]; [phone] OR, IF YOU WISH TO FOLLOW-UP WITHIN THE [facility], MAY TRY THESE OPTIONS (CLINIC APPOINTMENTS AVAILABLE ON GINR-GV-CRVE BASIS): 1. SCHEDULE AN APPOINTMENT ONLINE AT WWW.[facility] 2. OR CALL THE [facility] ACCESS CENTER AT OR 3. OR CALL YOUR [facility] PHYSICIAN'S OFFICE DIRECTLY IF YOU ARE ALREADY AN ESTABLISHED [facility] PATIENT. [facility] RETURN TO WORK / SCHOOL EXCUSE Bryn Camargo WAS SEEN IN THE ER AND DISCHARGED 04/22/2020 TODAY, 6:19 AM & May return to Work / School / Incarceration on X with activity as tolerated indicated below. ___The following limitations apply until pt is seen by Physician and cleared to return to normal activity. _X_ Off for two days and return to activity as tolerated at work or school ___ No Sports ___ No work ___ Do not return until fever free for 24 hours. ___ No school GOPI CHENEY Jr., MD [facility] EMERGENCY DEPRTMENT [address] [place] [address] [place] [id number] ### The patient may have been given Narcotic pain medications during their stay in the ED that may show up on a Drug Screen. The hospital discharge paper work will identify these medications. AttachmentsThe following attachments cannot be sent through Care Everywhere. Hyperglycemia (High Blood Sugar) (Finnish)Mental Illness, When a Loved One Has a (Finnish)documented in this encounter ED Notes Jonathan Ferrer RN - 04/21/2020 7:25 PM CSTPt presents to ED voluntary reporting auditory hallucinations telling him to kill himself by throwing himself off a building or out into traffic. opi Cheney MD - 04/21/2020 7:11 PM CST EMERGENCY DEPARTMENT ENCOUNTER [facility] Patient Name: Bryn Camargo Date of : 1975 44 year old Exam Room:TX2/TX2 Primary Care Physician: PATIENT DOES NOT HAVE A PCP Pre- Hospital Patient Escorted by: Self [9] Mode of Arrival: Personal means [1] EMS Treatment Prior to ED Arrival: BUTTON RECLAIMER treatment: None Chief Complaint Chief Complaint Patient presents with SUICIDAL HPI History provided by: Patient MENTAL ILLNESS Presenting symptoms: suicidal thoughts Presenting symptoms: no agitation Degree of incapacity (severity): Moderate Onset quality: Gradual Timing: Constant Progression: Unchanged Chronicity: Recurrent Context: drug abuse Treatment compliance: Some of the time Relieved by: Nothing Worsened by: Nothing Associated symptoms: poor judgment Associated symptoms: no abdominal pain, no chest pain, no fatigue and no headaches Past Medical History / Immunizations Past Medical History: Diagnosis Date DM (diabetes mellitus) HTN (hypertension) Schizophrenia Tetanus received in last 5 years: Yes Childhood immunizations: Up-to-date Past Surgical History No past surgical history on file. Allergies No Known Allergies Social History Substance & Sexual Activity No substance use or sexual activity history on file. Review of Systems Review of Systems Constitutional: Negative. Negative for chills, fatigue, fever and unexpected weight change. HENT: Negative. Eyes: Negative. Negative for discharge and itching. Respiratory: Negative. Negative for cough, chest tightness, shortness of breath and wheezing. Cardiovascular: Negative. Negative for chest pain and palpitations. Gastrointestinal: Negative. Negative for abdominal distention, abdominal pain, nausea and vomiting. Genitourinary: Negative. Negative for dysuria, urgency, frequency and flank pain. Musculoskeletal: Negative. Skin: Negative. Negative for color change, pallor and wound. Neurological: Negative. Negative for dizziness, syncope, light-headedness and headaches. Psychiatric/Behavioral: Positive for suicidal ideas. Negative for agitation and behavioral problems. All other systems reviewed and are negative. Endocrine: Endocrine negative Physical Exam BP 116/78 | Pulse 71 | Temp 36.5 C (97.7 F) | Resp 16 | Wt 63.5 kg (140 lb) | SpO2 99% | BMI 24.03 kg/m Physical Exam Vitals signs reviewed. Constitutional: Appearance: He is well-developed. HENT: Head: Normocephalic and atraumatic. Nose: Nose normal. Eyes: Conjunctiva/sclera: Conjunctivae normal. Neck: Musculoskeletal: Normal range of motion and neck supple. Trachea: No tracheal deviation. Cardiovascular: Rate and Rhythm: Normal rate and regular rhythm. Heart sounds: Normal heart sounds. No murmur. No friction rub. Pulmonary: Effort: Pulmonary effort is normal. No respiratory distress. Breath sounds: Normal breath sounds. No stridor. No wheezing or rales. Abdominal: General: Bowel sounds are normal. There is no distension. Palpations: Abdomen is soft. Tenderness: There is no abdominal tenderness. There is no guarding or rebound. Musculoskeletal: Normal range of motion. Skin: General: Skin is warm and dry. Neurological: Mental Status: He is alert and oriented to person, place, and time. Cranial Nerves: No cranial nerve deficit. Sensory: No sensory deficit. Psychiatric: Behavior: Behavior normal. Thought Content: Thought content includes suicidal ideation. Thought content includes suicidal plan. Labs Recent Results (from the past 24 hour(s)) POCT GLUCOSE (AUTOMATED) Collection Time: 04/21/20 7:07 AM Result Value Ref Range POCT GLU 259 (H) 70 - 110 mg/dL Basic Metabolic Panel (NA, K, CL, CO2, GLUCOSE, BUN, CREATININE, CA) Collection Time: 04/21/20 8:40 PM Result Value Ref Range NA 130 (L) 135 - 145 mmol/L K 4.1 3.5 - 5.0 mmol/L CL 96 (L) 98 - 108 mmol/L CO2 TOTAL 29 23 - 31 mmol/L AGAP 5 2 - 16 BUN 11 7 - 23 mg/dL GLUCOSE 408 (H) 70 - 110 mg/dL CREATININE 0.62 0.60 - 1.25 mg/dL CALCIUM 8.6 8.6 - 10.6 mg/dL eGFR Calculation (Non-) 140.9 mL/min/1.73m2 eGFR Calculation () 170.8 mL/min/1.73m2 CBC with Differential Collection Time: 04/21/20 8:40 PM Result Value Ref Range WBC 8.31 4.20 - 10.70 10*3/L RBC 4.46 4.26 - 5.52 10*6/L HGB 13.7 12.2 - 16.4 g/dL HCT 39.2 38.4 - 49.3 % MCV 87.9 81.7 - 95.6 fL MCH 30.7 26.1 - 32.7 pg MCHC 34.9 31.2 - 35.0 g/dL RDW-SD 38.4 (L) 38.5 - 51.6 fL RDW-CV 11.9 (L) 12.1 - 15.4 % PLT 221 150 - 328 10*3/L MPV 10.7 9.8 - 13.0 fL NRBC/100 WBC 0.0 0.0 - 10.0 /100 WBCs NRBC x10^3 <0.01 10*3/L GRAN MAT (NEUT) % 53.8 % IMM GRAN % 0.60 % LYMPH % 33.9 % MONO % 7.9 % EOS % 3.1 % BASO % 0.7 % GRAN MAT x10^3(ANC) 4.46 1.99 - 6.95 10*3/uL IMM GRAN x10^3 0.05 0.00 - 0.06 10*3/uL LYMPH x10^3 2.82 1.09 - 3.23 10*3/uL MONO x10^3 0.66 0.36 - 1.02 10*3/uL EOS x10^3 0.26 0.06 - 0.53 10*3/uL BASO x10^3 0.06 0.01 - 0.09 10*3/uL Hepatic Function Panel (ALB, T.PRO, BILI T, BU/BC, ALT, AST, ALK PHOS) Collection Time: 04/21/20 8:40 PM Result Value Ref Range TOTAL BILI 0.4 0.1 - 1.1 mg/dL BILI UNCON 0.3 0.1 - 1.1 mg/dL BILI CONJ 0.0 0.0 - 0.3 mg/dL T PROTEIN 6.1 (L) 6.3 - 8.2 g/dL ALBUMIN 3.6 3.5 - 5.0 g/dL ALK PHOS 128 (H) 34 - 122 U/L ALTv 14 5 - 50 U/L AST(SGOT) 17 13 - 40 U/L ACUTE CARE VENOUS BLOOD GAS Collection Time: 04/21/20 8:41 PM Result Value Ref Range PH 7.42 7.32 - 7.42 PCO2 TWYLA 41 41 - 51 mmHg PO2 TWYLA 53 (H) 25 - 40 mmHg HCO3 TWYLA 26 24 - 28 mEq/L AC VBE(BEAKER) 1.7 mEq/L POCT GLUCOSE (AUTOMATED) Collection Time: 04/21/20 9:57 PM Result Value Ref Range POCT GLU 178 (H) 70 - 110 mg/dL BASIC METABOLIC PANEL (NA, K, CL, CO2, GLUCOSE, BUN, CREATININE, CA) Collection Time: 04/22/20 3:28 AM Result Value Ref Range NA 135 135 - 145 mmol/L K 3.9 3.5 - 5.0 mmol/L CL 103 98 - 108 mmol/L CO2 TOTAL 27 23 - 31 mmol/L AGAP 5 2 - 16 BUN 11 7 - 23 mg/dL GLUCOSE 303 (H) 70 - 110 mg/dL CREATININE 0.55 (L) 0.60 - 1.25 mg/dL CALCIUM 8.6 8.6 - 10.6 mg/dL eGFR Calculation (Non-) 161.8 mL/min/1.73m2 eGFR Calculation () 196.1 mL/min/1.73m2 Imaging No results found for this visit on 04/21/20. Orders and Treatments Orders Placed This Encounter Procedures Basic Metabolic Panel (NA, K, CL, CO2, GLUCOSE, BUN, CREATININE, CA) CBC with Differential Hepatic Function Panel (ALB, T.PRO, BILI T, BU/BC, ALT, AST, ALK PHOS) ACUTE CARE VENOUS BLOOD GAS BASIC METABOLIC PANEL (NA, K, CL, CO2, GLUCOSE, BUN, CREATININE, CA) POCT GLUCOSE (AUTOMATED) Orders Placed This Encounter Medications NaCl 0.9% (NS) bolus infusion 1,000 mL insulin regular human (HUMULIN R) injection 6 Units Procedures Notes & MDM Patient was evaluated for an emergency medical condition related to SUICIDAL . Differential diagnoses considered by presenting complaints but not limited to: Suicidal Ideation Malingering Assessment: The patient for evaluation. He denies himself. He states prior to discharge she would like to eat. He does demonstrate malingering type behavior. Patient will be discharged History, physical exam findings, results of visit, differential diagnosis, medication regimens and plan of future care have been considered. Additional MDM may be found in the ED course. Differential diagnosis considered and final disposition made based on information gathered during evaluation and may not be completely ruled out or specifically listed. Vital signs were rechecked before final disposition. Diagnosis ICD-10-CM ICD-9-CM 1. Hyperglycemia R73.9 790.29 Disposition & Follow Up ED Disposition None Patient's Medications START taking these medications No medications on file CONTINUE taking these medications which have NOT CHANGED DIVALPROEX (DEPAKOTE) 500 MG EC TABLET Take 1 tablet by mouth every 12 (twelve) hours. DIVALPROEX 500 MG EC TABLET Take 1 [...] tablet by mouth 2 (two) times daily. METFORMIN 500 MG TABLET Take 1 tablet by mouth 2 (two) times daily with meals. RISPERIDONE 0.25 MG TBDL Take 0.25 mg by mouth every evening. RISPERIDONE 0.25 MG TBDL Take 1 TAB-CAP/M2 by mouth every morning for 30 days. START taking Modified Medications as Prescribed No medications on file STOP taking these medications No medications on file Gopi Cheney Jr., MD Clinical Life Skills Coach [facility] Emergency Department HOLOGICAL SCIENCE PROFESSOR documented in this encounter Miscellaneous Notes ED Nurse Note - Altagracia Aggarwal RN - 04/22/2020 6:29 AM CSTSummary: Discharge Pt given printed and verbal discharge instructions regarding mental health encouraged hydration, Prescriptions provided none Discussed ibuprofen and to take with food to avoid GI distress. Pt verbalized understanding of instructions, pt awake alert oriented, resp reg unlabored, skin w/d, color appropriate for race, moves all ext well,pt encouraged to follow up with pcp and Advised to seek medical attention for new/prolonged/worsening of symptoms, No adverse reaction to meds given in ER noted upon discharge PIV d'cd, dressing to site, catheter in tact. Awake, alert oriented, resp reg unlabored, skin w/d, pt leaving amb with steady gait, in no apparent distress, D Nurse Note - Altagracia Aggarwal RN - 04/22/2020 6:15 AM CSTSummary: Reassessment evulation Dr Cheney at the bedside reassessing the patient for SI, when patient was asked about how he feels patient stated "I don't feel like hurting myself anymore" Patient IV taken out and patient given belongings and got dressed. Patient vital signs are stable and no respiratory distress or c/o of pain atthis time. Patient to be discharged. D Nurse Note - Altagracia Aggarwal RN - 04/22/2020 4:12 AM CSTSummary: Lab values faxed Patient BMP resulted and faxed to the phone number provided by Randi Stahl in the transfer center [phone] will call and inform transfer center that the information was faxed. LY Nurse Note - Altagracia Aggarwal RN - 04/22/2020 3:20 AM CSTSummary: nurse to nurse Spoke with Tia with [facility] and they requested a sodium repeat draw and they wanted to know if [facility] had been called, Tia was informed that patient stated he was hearing voices telling him to kill himself and that he had 2 plans to kill himself. Blood will be redraw for sodium and glucose. LY Nurse Note - Altagracia Aggarwal RN - 04/22/2020 2:00 AM CSTSummary: rounding Patient remains under suicide precautions. Continuous observation in place, patient currently patient is sleeping at this time, no respiratory distress noted. LY Nurse Note - Altagracia Aggarwal RN - 04/22/2020 12:00 AM CSTSummary: rounding Patient remains under suicide precautions. Continuous observation in place, patient currently sleeping no respiratory distress no c/o of pain at this time IBBY Nurse Note - Altagracia Aggarwal RN - 04/21/2020 10:00 PM CSTSummary: general rouding Patient remains under suicide precautions. Continuous observation in place, patient currently sitting in bed eating a sandwich no distress noted. D Nurse Note - Altagracia Aggarwal RN - 04/21/2020 7:45 PM CSTSummary: patient placed on SI precautions Patient placed on SI precautions, room cleared of all sharp objects, patient placed in paper scrubs and belongings obtained and placed behind the nurse's station. Patient has been cooperative and calm. Glucose to be checked. Sitter outside the room documented in this encounter Plan of Treatment Health Maintenance Due Date Last Done Comments HgA1C 10/04/1976 EYE EXAM 10/04/1985 LDL-C 10/04/1985 URINE MICROALBUMIN 10/04/1985 Depression Screening 1987 FOOT EXAM 10/04/1993 DTaP,Tdap,and Td Vaccines 10/04/1994 (1 - Tdap) INFLUENZA VACCINE (#1) 2019 CREATININE (SERUM) 04/21/2021 04/21/2020, 04/21/2020, 03/31/2020, Additional history exists PNEUMOCOCCAL 0-64 YEARS Aged Out No longe r eligible COMBINED SERIES based on patient 's age to complete this topic documented as of this encounter Procedures Procedure Name Priority Date/Time Associated Diagnosis Comme nts BASIC METABOLIC STAT 04/22/2020 3:28 Hyperglycemia Results for this PANEL (NA, K, CL, AM PSYCHOLOGICAL SCIENCE PROFESSOR procedure are in CO2, GLUCOSE, BUN, the resul ts CREATININE, CA) section. POCT GLUCOSE Routine 04/21/2020 9:57 Results for this (AUTOMATED) PM PSYCHOLOGICAL SCIENCE PROFESSOR procedure are i n the results section. ACUTE CARE VENOUS STAT 04/21/2020 8:41 Hyperglycemia Resul ts for this BLOOD GAS PM PSYCHOLOGICAL SCIENCE PROFESSOR procedure are i n the results section. CBC WITH DIFF STAT 04/21/2020 8:40 Hyperglycemia Results f or this PM PSYCHOLOGICAL SCIENCE PROFESSOR procedure are i n the results section. BASIC METABOLIC STAT 04/21/2020 8:40 Hyperglycemia Results for this PANEL (NA, K, CL, PM PSYCHOLOGICAL SCIENCE PROFESSOR procedure are in CO2, GLUCOSE, BUN, the resul ts CREATININE, CA) section. HEPATIC FUNCTION STAT 04/21/2020 8:40 Hyperglycemia Result s for this PANEL (75831) PM PSYCHOLOGICAL SCIENCE PROFESSOR procedure are in (ALB,T.PRO,BILI the results T,BU/BC,ALT,AST,ALK section. PHOS) NOTICE OF PRIVACY Routine 04/21/2020 7:10 PRACTICES PM PSYCHOLOGICAL SCIENCE PROFESSOR CONSENT/REFUSAL FOR Routine 04/21/2020 7:10 DIAGNOSIS AND PM PSYCHOLOGICAL SCIENCE PROFESSOR TREATMENT documented in this encounter Results BASIC METABOLIC PANEL (NA, K, CL, CO2, GLUCOSE, BUN, CREATININE, CA) (04/22/2020 3:28 AM PSYCHOLOGICAL SCIENCE PROFESSOR) NA 135 135 - 145 [facility] mmol/L [facility] K 3.9 3.5 - 5.0 [facility] mmol/L [facility] CL 103 98 - 108 mmol/L [facility] CO2 TOTAL 27 23 - 31 mmol/L [facility] AGAP 5 2 - 16 [facility] BUN 11 7 - 23 mg/dL [facility] GLUCOSE 303 (H) 70 - 110 mg/dL [facility] CREATININE 0.55 (L) 0.60 - 1.25 [facility] mg/dL [facility] CALCIUM 8.6 8.6 - 10.6 [facility] mg/dL [facility] eGFR Calculation 161.8 mL/min/1.73m2 [facility] (Non[facility] LABORATORY [place]ian) eGFR Calculation 196.1 mL/min/1.73m2 [facility] () [facility] Specimen Blood - ARM, LEFT Narrative Performed At [facility]omer[facility] Fil[facility] ([facility]) [facility] and Staging of Kidney Disease* + [...] abnormalities in imaging tests). Performing Organization Address [facility] Phone Number [facility] CLIA: [id number] [place] [address] [address] POCT GLUCOSE (AUTOMATED) (04/21/2020 9:57 PM PSYCHOLOGICAL SCIENCE PROFESSOR) Pathologist Sig nature POCT GLU 178 (H) 70 - 110 mg/dL [facility] Specimen Blood Performing Organization Address [facility] Phone Number [facility] CLIA: [id number] [place] [address] [place] [address] ACUTE CARE VENOUS BLOOD GAS (04/21/2020 8:41 PM PSYCHOLOGICAL SCIENCE PROFESSOR) Pathologist Sig nature PH 7.42 7.32 - 7.42 [facility] PCO2 TWYLA 41 41 - 51 mmHg [facility] PO2 TWYLA 53 (H) 25 - 40 mmHg [facility] HCO3 TWYLA 26 24 - 28 mEq/L [facility] AC VBE(BEAKER) 1.7 mEq/L [facility] Specimen Blood - ARM, RIGHT Performing Organization Address [facility] Phone Number [facility] CLIA: [id number] [place] [address] LABORATORY [address] [facility] Hepatic Function Panel (ALB, T.PRO, BILI T, BU/BC, ALT, AST, ALK PHOS) (04/21/2020 8:40 PM PSYCHOLOGICAL SCIENCE PROFESSOR) Pathologist Sig nature TOTAL BILI 0.4 0.1 - 1.1 mg/dL [facility] BILI UNCON 0.3 0.1 - 1.1 mg/dL [facility] BILI CONJ 0.0 0.0 - 0.3 mg/dL [facility] T PROTEIN 6.1 (L) 6.3 - 8.2 g/dL [facility] ALBUMIN 3.6 3.5 - 5.0 g/dL [facility] ALK PHOS 128 (H) 34 - 122 U/L [facility] ALTv 14 5 - 50 U/L [facility] AST(SGOT) 17 13 - 40 U/L [facility] Specimen Blood - VENOUS Performing Organization Address City/State/Zipcode Phone Number [facility] CLIA: [id number] [facility] [place] [address] CBC with Differential (04/21/2020 8:40 PM PSYCHOLOGICAL SCIENCE PROFESSOR) [facility] WBC 8.31 4.20 - 10.70 [facility] 10*3/L [facility] RBC 4.46 4.26 - 5.52 [facility] 10*6/L [facility] HGB 13.7 12.2 - 16.4 [facility] g/dL [facility] HCT 39.2 38.4 - 49.3 % [facility] MCV 87.9 81.7 - 95.6 fL [facility] MCH 30.7 26.1 - 32.7 pg [facility] MCHC 34.9 31.2 - 35.0 [facility] g/dL [facility] RDW-SD 38.4 (L) 38.5 - 51.6 fL [facility] RDW-CV 11.9 (L) 12.1 - 15.4 % [facility] PLT 221 150 - 328 [facility] 10*3/L [facility] MPV 10.7 9.8 - 13.0 fL [facility] NRBC/100 WBC 0.0 0.0 - 10.0 /100 [facility] WBCs [facility] NRBC x10^3 <0.01 10*3/L [facility] GRAN MAT (NEUT) % 53.8 % [facility] IMM GRAN % 0.60 % [facility] LYMPH % 33.9 % [facility] MONO % 7.9 % [facility] EOS % 3.1 % [facility] BASO % 0.7 % [facility] GRAN MAT x10^3(ANC) 4.46 1.99 - 6.95 [facility] 10*3/uL [facility] IMM GRAN x10^3 0.05 0.00 - 0.06 [facility] 10*3/uL HOSPITAL LAB[facility]ORY LYMPH x10^3 2.82 1.09 - 3.23 [facility] 10*3/uL [facility] MONO x10^3 0.66 0.36 - 1.02 [facility] 10*3/uL [facility] EOS x10^3 0.26 0.06 - 0.53 [facility] 10*3/uL [facility] BASO x10^3 0.06 0.01 - 0.09 [facility] 10*3/uL [facility] Specimen Blood - VENOUS Performing Organization Address City/State/Zipcode Phone Number [facility] CLIA: [id number] [place], [place] [id number] LABORATORY [address] [facility] Basic Metabolic Panel (NA, K, CL, CO2, GLUCOSE, BUN, CREATININE, CA) (04/21/2020 8:40 PM PSYCHOLOGICAL SCIENCE PROFESSOR) [facility] NA 130 (L) 135 - 145 [facility] mmol/L [facility] K 4.1 3.5 - 5.0 [facility] mmol/L [facility] CL 96 (L) 98 - 108 mmol/L [facility] CO2 TOTAL 29 23 - 31 mmol/L [facility] AGAP 5 2 - 16 [facility] BUN 11 7 - 23 mg/dL [facility] GLUCOSE 408 (H) 70 - 110 mg/dL [facility] CREATININE 0.62 0.60 - 1.25 [facility] mg/dL [facility] CALCIUM 8.6 8.6 - 10.6 [facility] mg/dL [facility] eGFR Calculation 140.9 mL/min/1.73m2 [facility] ([facility] LABORATORY [place]) eGFR Calculation 170.8 mL/min/1.73m2 [facility] () [facility] Specimen Blood - VENOUS Narrative Performed At [facility] and Staging of Kidney Disease* + [...] tests). Performing Organization Address City/State/Zipcode Phone Number [facility] CLIA: [id number] [place] [address] documented in this encounter Visit Diagnoses Diagnosis Hyperglycemia - Primary Other abnormal glucose Chronic mental illness Unspecified nonpsychotic mental disorder Malingering Person feigning illness documented in this encounter Administered Medications Medication Order MAR Action Action Date Dose Rate Site insulin regular human (HUMULIN Given 04/21/2020 9:11 PM PSYCHOLOGICAL SCIENCE PROFESSOR 6 U nits R) injection 6 Units 6 Units, Slow IV Push, ONCE, 1 dose, Sun04/21/20 at 2115, STAT NaCl 0.9% (NS) bolus infusion New Bag 04/21/2020 9:11 PM PSYCHOLOGICAL SCIENCE PROFESSOR 1,000 mL 999 mL/hr 1,000 mL at 999 mL/hr, 1,000 mL, IV Infusion, ONCE, 1 dose, Sun04/21/20 at 2115, STAT documented in this encounter Insurance Payer Benefit Plan / Subscriber ID Effective Phone Address T e Group Dates SYDNI TROY [id number] 2016-[address] [place] [facility] [place] [id number] [place] MED[place], [place] documented as of this encounter
--- OUTSIDE RECORDS SUMMARY | 2020-04-27 19:38 | XMS REPORT | Summary of Care ---
:1975 Author Organization [facility] [[email or web address]] - [facility] Address [address] [place] [id number] Care Team Providers Name Role Phone Pcp, Patient Does Not Have A Primary Care Provider +[id number] Reason for Visit Reason Comments Hyperglycemia Auth/Cert Status Reason Specialty Diagnoses / Referred By Referred To Procedures Contact Contact Emergency Medicine [facility] Em ergency Dept [address] [place] [address] Encounter Details Date Type Department Care Team Description 04/26/2020 Emergency [facility] Kenji Watson DO Hyperglycemia (Primary Department [address]) [address] [place] [address] Theo [address] [place], [place] [address] Allergies No Known Allergiesdocumented as of this encounter (statuses as of 04/26/2020) Medications Medication Sig Dispensed Refills Start Date End Date Status LITHIUM ASPARTATE Take by mouth. 0 Active ORAL fluPHENAZine 12.5 mg by 0 Active decanoate 25 mg/mL Intramuscular route injection every 14 (fourteen) days. gabapentin Take 1 capsule by 30 capsule 0 02/21/2020 Active (NEURONTIN) 100 mg mouth 3 (three) capsuleIndications: times daily. Neuropathy divalproex 500 mg Take 1 tablet by 60 tablet 0 03/31/202004/10 Active EC mouth every 12 tabletIndications: (twelve) hours for Medication refill 30 days. Risperidone 0.25 mg Take 1 TAB-CAP/M2 30 tablet 0 03/31/2020 0 04/30/2020 Active TbDLIndications: by mouth every Medication refill morning for 30 days. divalproex Take 1 tablet by 20 tablet 0 04/23/2020 A ctive (DEPAKOTE) 500 mg mouth every 12 EC (twelve) hours. tabletIndications: Medication refill metFORMIN 500 mg Take 1 tablet by 60 tablet 0 04/23/2020 Active tabletIndications: mouth 2 (two) times Hyperglycemia daily. Risperidone 0.25 mg Take 0.25 mg by 20 tablet 0 04/23/2020 Active TbDLIndications: mouth every Medication refill evening. glipiZIDE 5 mg Take 1 tablet by 30 tablet 0 04/23/2020 Active tabletIndications: mouth daily. Hyperglycemia, Medication refill divalproex 500 mg Take 1 tablet by 30 tablet 0 04/26/2020 Active EC mouth every 8 tabletIndications: (eight) hours. Hyperglycemia Risperidone 0.25 mg Take 1 TAB-CAP/M2 15 tablet 0 04/26/2020 Active TbDLIndications: by mouth daily. Hyperglycemia glipiZIDE 5 mg Take 1 tablet by 20 tablet 0 04/26/2020 Active tabletIndications: mouth daily. Hyperglycemia documented as of this encounter (statuses as of 04/26/2020) Active Problems Problem Noted Date Suicidal ideation 04/21/2020 Auditory hallucinations 04/21/2020 Schizophrenia 04/13/2016 Uncontrolled type 2 diabetes mellitus with complicatio n, with long-term 04/13/2016 current use of insulin documented as of this encounter (statuses as of 04/26/2020) Social History Tobacco Use Types Packs/Day Years Used Date Never Assessed Sex Assigned at Date Recorded Not on file COVID-19 Exposure Response Date Recorded In the last month, have you been in contact with No / Unsure 04/26/2020 6:31 PM PLAY BACK OPERATOR someone who was confirmed or suspected to have Coronavirus / COVID-19? documented as of this encounter Last Filed Vital Signs Vital Sign Reading Time Taken Comments Blood Pressure 117/57 04/26/2020 9:28 PM PLAY BACK OPERATOR Pulse 82 04/26/2020 9:28 PM PLAY BACK OPERATOR Temperature 36.7 C (98.1 F) 04/26/2020 6:31 PM PLAY BACK OPERATOR Respiratory Rate 16 04/26/2020 9:28 PM PLAY BACK OPERATOR Oxygen Saturation 98% 04/26/2020 9:28 PM PLAY BACK OPERATOR Inhaled Oxygen Concentration - - Weight 77.1 kg (170 lb) 04/26/2020 6:31 PM PLAY BACK OPERATOR Height 162.6 cm (5' 4") 04/26/2020 6:31 PM PLAY BACK OPERATOR Body Mass Index 29.18 04/26/2020 6:31 PM PLAY BACK OPERATOR documented in this encounter Discharge Instructions AttachmentsThe following attachments cannot be sent through Care Everywhere. Hyperglycemia (High Blood Sugar) ([place])documented in this encounter ED Notes Hawa Prado RN - 04/26/2020 6:32 PM CSTBryn Camargo is a 44 year old male arrived Ems to room 5 with complaints of out of medications x 2 months. Patient hx of DM and psych. Patient seen 4 times in last week at [facility] and released. Alert and oriented x 4 respiratory reg and unlabored. Patient admits to being homeless. 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 The patient has generalized malaise and his blood sugar pre ems is 453. No chest pain sob or nausea or vomiting. Past Medical History/Immunizations: Past Medical History: Diagnosis Date DM (diabetes mellitus) HTN (hypertension) Schizophrenia Tetanus received in last 5 years: Unknown Allergies: No Known Allergies Past Social History: Substance & Sexual Activity No substance use or sexual activity history on file. Past Surgical History: History reviewed. No pertinent surgical history. Review of Systems: Review of Systems Constitutional: Positive for activity change, appetite change and fatigue. Negative for diaphoresis. HENT: Negative. Eyes: Negative. Respiratory: Negative. Breasts: Negative. Cardiovascular: Negative. Gastrointestinal: Negative. Genitourinary: Negative. Musculoskeletal: Positive for myalgias. Skin: Negative. Neurological: Positive for weakness. Psychiatric/Behavioral: Negative. All other systems reviewed and are negative. Endocrine: Endocrine negative Physical Exam: ED Triage Vitals [04/26/20 1831] Weight 77.1 kg (170 lb) Actual or estimated Height 1.626 m (5' 4") BP 132/81 Pulse 90 Resp 16 Temp 36.7 C (98.1 F) Temp src SpO2 100 % Measured on Room air Physical Exam [...] soft. Musculoskeletal: Normal range of motion. Skin: General: Skin is warm. Capillary Refill: Capillary refill takes less than 2 seconds. Neurological: General: No focal deficit present. Mental Status: He is alert and oriented to person, place, and time. Mental status is at baseline. Psychiatric: Mood and Affect: Mood normal. Behavior: Behavior normal. Thought Content: Thought content normal. Judgment: Judgment normal. Radiology: No results found for this visit on 04/26/20. Lab Results (24h): Recent Results (from the past 24 hour(s)) POCT GLUCOSE (AUTOMATED) Collection Time: 04/26/20 6:36 PM Result Value Ref Range POCT GLU 439 (H) 70 - 110 mg/dL CBC with Differential Collection Time: 04/26/20 6:41 PM Result Value Ref Range WBC 8.80 4.20 - 10.70 10*3/L RBC 4.48 4.26 - 5.52 10*6/L HGB 13.6 12.2 - 16.4 g/dL HCT 38.8 38.4 - 49.3 % MCV 86.6 81.7 - 95.6 fL MCH 30.4 26.1 - 32.7 pg MCHC 35.1 (H) 31.2 - 35.0 g/dL RDW-SD 37.9 (L) 38.5 - 51.6 fL RDW-CV 11.9 (L) 12.1 - 15.4 % PLT 239 150 - 328 10*3/L MPV 10.4 9.8 - 13.0 fL NRBC/100 WBC 0.0 0.0 - 10.0 /100 WBCs NRBC x10^3 <0.01 10*3/L GRAN MAT (NEUT) % 63.8 % IMM GRAN % 0.80 % LYMPH % 24.9 % MONO % 8.2 % EOS % 1.6 % BASO % 0.7 % GRAN MAT x10^3(ANC) 5.62 1.99 - 6.95 10*3/uL IMM GRAN x10^3 0.07 (H) 0.00 - 0.06 10*3/uL LYMPH x10^3 2.19 1.09 - 3.23 10*3/uL MONO x10^3 0.72 0.36 - 1.02 10*3/uL EOS x10^3 0.14 0.06 - 0.53 10*3/uL BASO x10^3 0.06 0.01 - 0.09 10*3/uL Basic Metabolic Panel (NA, K, CL, CO2, GLUCOSE, BUN, CREATININE, CA) Collection Time: 04/26/20 6:41 PM Result Value Ref Range NA 127 (L) 135 - 145 mmol/L K 4.0 3.5 - 5.0 mmol/L CL 96 (L) 98 - 108 mmol/L CO2 TOTAL 20 (L) 23 - 31 mmol/L AGAP 11 2 - 16 BUN 15 7 - 23 mg/dL GLUCOSE 456 (HH) 70 - 110 mg/dL CREATININE 0.63 0.60 - 1.25 mg/dL CALCIUM 8.3 (L) 8.6 - 10.6 mg/dL eGFR Calculation (Non-) 138.3 mL/min/1.73m2 eGFR Calculation () 167.7 mL/min/1.73m2 Hepatic Function Panel (ALB, T.PRO, BILI T, BU/BC, ALT, AST, ALK PHOS) Collection Time: 04/26/20 6:41 PM Result Value Ref Range TOTAL BILI 0.2 0.1 - 1.1 mg/dL BILI UNCON 0.1 0.1 - 1.1 mg/dL BILI CONJ 0.0 0.0 - 0.3 mg/dL T PROTEIN 6.0 (L) 6.3 - 8.2 g/dL ALBUMIN 3.5 3.5 - 5.0 g/dL ALK PHOS 111 34 - 122 U/L ALTv 24 5 - 50 U/L AST(SGOT) 22 13 - 40 U/L Troponin I Collection Time: 04/26/20 6:41 PM Result Value Ref Range TROPONIN I 0.002 <=0.034 ng/mL Urinalysis Collection Time: 04/26/20 7:51 PM Result Value Ref Range APPEARANCE Clear Clear COLOR Colorless (A) Yellow PH 5.0 4.8 - 8.0 SP GRAVITY 1.013 1.003 - 1.030 GLU U QUAL 500 mg/dL (A) Normal BLOOD Negative Negative KETONES Negative Negative PROTEIN Negative Negative UROBILIN Normal Normal BILIRUBIN Negative Negative NITRITE Negative Negative LEUK MONICO Negative Negative RBC/HPF <1 0 - 3 HPF WBC/HPF <1 0 - 5 HPF BACTERIA Negative Negative DRUG PANEL 2 URINE Collection Time: 04/26/20 7:51 PM Result Value Ref Range AMPHET Negative Negative JOSSELYN U Negative Negative BENZO U Negative Negative Cocaine Metabolite Negative Negative METHADONE Negative Negative OPIATES Negative Negative PCP Negative Negative THC Negative Negative POCT GLUCOSE (AUTOMATED) Collection Time: 04/26/20 9:11 PM Result Value Ref Range POCT GLU 173 (H) 70 - 110 mg/dL EKG: nsr rate 85 nostemi normal axis Orders and Treatments: Orders Placed This Encounter Procedures CBC with Differential Basic Metabolic Panel (NA, K, CL, CO2, GLUCOSE, BUN, CREATININE, CA) Hepatic Function Panel (ALB, T.PRO, BILI T, BU/BC, ALT, AST, ALK PHOS) Urinalysis DRUG PANEL 2 URINE Troponin I POCT GLUCOSE (AUTOMATED) POCT GLUCOSE (AUTOMATED) Orders Placed This Encounter Medications risperiDONE (RISPERDAL) tablet 0.25 mg DISCONTD: divalproex ER (DEPAKOTE ER) 24 hr tablet 500 mg NaCl 0.9% (NS) bolus infusion 1,000 mL DISCONTD: paliperidone (INVEGA SUSTENNA) injection 78 mg divalproex (DEPAKOTE) EC tablet 500 mg paliperidone (INVEGA) 24 hour tablet 3 mg insulin regular human (HUMULIN R) injection 10 Units ED COURSE Insulin 10 units ivp Patient's repeat blood sugar 143 MDM: Coding Scoring Tools: No data recorded Diagnosis/Impression: ICD-10-CM ICD-9-CM 1. Hyperglycemia R73.9 790.29 Disposition/Condition: ED Disposition ED Disposition Condition Comment [...] capsule by mouth 3 (three) times daily. GLIPIZIDE 5 MG TABLET Take 1 tablet by mouth daily. LITHIUM ASPARTATE ORAL Take by mouth. METFORMIN 500 MG TABLET Take 1 tablet by mouth 2 (two) times daily. RISPERIDONE 0.25 MG TBDL Take 1 TAB-CAP/M2 by mouth every morning for 30 days. RISPERIDONE 0.25 MG TBDL Take 0.25 mg by mouth every evening. START taking Modified Medications as Prescribed No medications on file STOP taking these medications No medications on file Follow-up: Electronically signed by: Kenji Watson DO 04/26/2020 9:17 PM documented in this encounter Miscellaneous Notes ED Nurse Note - Niocle Rivas RN - 04/26/2020 9:35 PM CSTPatient given printed and verbal discharge instructions regarding hyperglycemia, hydration encouraged. Prescriptions provided. Discussed tylenol/ibuprofen every [...] medications given in ER noted upon discharge. BACK OPERATOR documented in this encounter Plan of Treatment Name Type Priority Associated Diagnoses Date/Ti me EKG-12 LEAD ROUTINE HEART STATION STAT Hyperglycemia 2020 6:40 PM ONCE PLAY BACK OPERATOR Name Type Priority Associated Diagnoses Order S chedule EKG-12 LEAD ROUTINE HEART STATION STAT Hyperglycemia ONCE f or 1 Occurrences ONCE starting 2020 until Health Maintenance Due Date Last Done Comments HgA1C 10/04/1976 EYE EXAM 10/04/1985 LDL-C 10/04/1985 URINE MICROALBUMIN 10/04/1985 Depression Screening 1987 FOOT EXAM 10/04/1993 DTaP,Tdap,and Td Vaccines 10/04/1994 (1 - Tdap) INFLUENZA VACCINE (#1) 2019 CREATININE (SERUM) 04/23/2021 04/23/2020, 04/22/2020, 04/21/2020, Additional history exists PNEUMOCOCCAL 0-64 YEARS Aged Out No longe r eligible COMBINED SERIES based on patient 's age to complete this topic documented as of this encounter Procedures Procedure Name Priority Date/Time Associated Diagnosis Comme nts POCT GLUCOSE Routine 04/26/2020 9:11 Results for this (AUTOMATED) PM PLAY BACK OPERATOR procedure are i n the results section. URINALYSIS STAT 04/26/2020 7:51 Hyperglycemia Results fo r this PM PLAY BACK OPERATOR procedure are i n the results section. GALV/CLC ONLY - URINE STAT 04/26/2020 7:51 Hyperglycemia R esults for this DRUG (IMMUNOASSAY) - PM PLAY BACK OPERATOR procedu re are in COMPREHENSIVE DRUG the resul ts SCREEN section. CBC WITH DIFF STAT 04/26/2020 6:41 Hyperglycemia Results f or this PM PLAY BACK OPERATOR procedure are i n the results section. BASIC METABOLIC PANEL STAT 04/26/2020 6:41 Hyperglycemia R esults for this (NA, K, CL, CO2, PM PLAY BACK OPERATOR procedure a re in GLUCOSE, BUN, the results CREATININE, CA) section. HEPATIC FUNCTION STAT 04/26/2020 6:41 Hyperglycemia Result s for this PANEL (06234) PM PLAY BACK OPERATOR procedure are in (ALB,T.PRO,BILI the results T,BU/BC,ALT,AST,ALK section. PHOS) TROPONIN I STAT 04/26/2020 6:41 Hyperglycemia Results fo r this PM PLAY BACK OPERATOR procedure are i n the results section. POCT GLUCOSE Routine 04/26/2020 6:36 Results for this (AUTOMATED) PM PLAY BACK OPERATOR procedure are i n the results section. documented in this encounter Results POCT GLUCOSE (AUTOMATED) (04/26/2020 9:11 PM PLAY BACK OPERATOR) Pathologist Sig [facility] POCT GLU 173 (H) 70 - 110 mg/dL [facility] Specimen Blood Performing Organization Address [facility] Phone Number [facility] CLIA: [id number] [place], [place] [id number] [address] DRUG PANEL 2 URINE (04/26/2020 7:51 PM PLAY BACK OPERATOR) [facility] AMPHET Negative Negative [facility] [[email or web address]] LABORATORY SERVICES[facility] JOSSELYN U Negative Negative [email or web address] BENZO U Negative Negative [email or web address] Cocaine Metabolite Negative Negative [email or web address] METHADONE Negative Negative [email or web address] OPIATES Negative Negative [email or web address] P[facility] Negative Negative [email or web address] THC Negative Negative [email or web address] Specimen Urine - URINE, CLEAN CATCH Narrative Performed At Urine Drug Cutoff Ranges [facility] [[email or web address]] LABORATORY [facility] US Cocaine: 150 ng/mL Benzodiazepines: 200 ng/mL Methadone: 300 ng/mL Amphetamine: 1,000 ng/mL Opiates: 300 ng/mL Cannabinoids: 50 ng/mL Phencyclidine: 25 ng/mL Barbiturates: 200 ng/mL The results are to be used only for medical (i.e., treatment) purposes. Unconfirmed screening results must not be used for non-medical purposes (e.g., employment testing, legal testing). Performing Organization Address [facility] Phone Number [facility] [[email or web address]] LABORATORY CLIA: [id number] [place] [address] [facility] [address] Urinalysis (04/26/2020 7:51 PM PLAY BACK OPERATOR) Pathologist Sig nature APPEARANCE Clear Clear [email or web address] LABORATORY [facility] COLOR Colorless (A) Yellow [facility] [[email or web address]] LABORATORY [facility] PH 5.0 4.8 - 8.0 [facility] [[email or web address]] LABORATORY [facility] SP GRAVITY 1.013 1.003 - 1.030 [facility] [[email or web address]] LABORATORY [facility] GLU U QUAL 500 mg/dL (A) Normal [facility] [[email or web address]] LABORATORY [facility] BLOOD Negative Negative [facility] [[email or web address] LABORATORY [facility] KETONES Negative Negative [email or web address] LABORATORY [facility] PROTEIN Negative Negative [email or web address] LABORATORY [facility] UROBILIN Normal Normal [email or web address] LABORATORY [facility] BILIRUBIN Negative Negative [email or web address] LABORATORY [facility] NITRITE Negative Negative [email or web address]] LABORATORY [facility] LEUK MONICO Negative Negative [facility] [[email or web address]] LABORATORY [facility] RBC/HPF <1 0 - 3 HPF [facility] [[email or web address]] LABORATORY [facility] WBC/HPF <1 0 - 5 HPF [facility] [[email or web address]] LABORATORY [facility] BACTERIA Negative Negative [facility] [[email or web address]] LABORATORY [facility] Specimen Urine - URINE, CLEAN CATCH Performing Organization Address City/State/Zipcode Phone Number [facility] [[email or web address]] LABORATORY CLIA: [id number] [place] [address] [facility] [address] Troponin I (04/26/2020 6:41 PM PLAY BACK OPERATOR) Pathologist Sig nature TROPONIN I 0.002 <=0.034 ng/mL [facility] [[email or web address]] LABORATORY [facility] Specimen Blood - VENOUS Narrative Performed At Equal or Less than 0.034 ng/ml---Normal [facility] [[email or web address]] LABORATORY [facility] Note: Cardiac troponin begins to [...] patient's use of biotin. Performing Organization Address City/[facility]/Zipcode Phone Number [facility] [[email or web address]] LABORATORY CLIA: [id number] [place] [address] [facility] [address] [facility] Hepatic Function Panel (ALB, T.PRO, BILI T, BU/BC, ALT, AST, ALK PHOS) (04/26/2020 6:41 PM PLAY BACK OPERATOR) Pathologist Sig nature TOTAL BILI 0.2 0.1 - 1.1 mg/dL [facility] [[email or web address]] LABORATORY [facility] BILI UNCON 0.1 0.1 - 1.1 mg/dL [facility] [[email or web address]] LABORATORY [facility] BILI CONJ 0.0 0.0 - 0.3 mg/dL [facility] [[email or web address]] LABORATORY [facility] T PROTEIN 6.0 (L) 6.3 - 8.2 g/dL [facility] [[email or web address]] LABORATORY [facility] ALBUMIN 3.5 3.5 - 5.0 g/dL [facility] [[email or web address]] LABORATORY [facility] ALK PHOS 111 34 - 122 U/L [email or web address] LABORATORY [facility] ALTv 24 5 - 50 U/L [facility] [[email or web address] LABORATORY [facility] AST(SGOT) 22 13 - 40 U/L [email or web address] LABORATORY [facility] Specimen Blood - VENOUS Performing Organization Address City/[facility]/Zipcode Phone Number [facility] [[email or web address]] LABORATORY CLIA: [id number] [place] [address] [facility] [address] [facility] Basic Metabolic Panel (NA, K, CL, CO2, GLUCOSE, BUN, CREATININE, CA) (04/26/2020 6:41 PM PLAY BACK OPERATOR) NA 127 (L) 135 - 145 [facility] [[email or web address]] LABORATORY mmol/L [facility] K 4.0 3.5 - 5.0 [facility] [[email or web address] LABORATORY mmol/L [facility] CL 96 (L) 98 - 108 mmol/L [email or web address] LABORATORY [facility] CO2 TOTAL 20 (L) 23 - 31 mmol/L [email or web address] LABORATORY [facility] AGAP 11 2 - 16 [email or web address] LABORATORY [facility] BUN 15 7 - 23 mg/dL [email or web address] LABORATORY [facility] GLUCOSE 456 (HH) 70 - 110 mg/dL [email or web address] LABORATORY [facility] CREATININE 0.63 0.60 - 1.25 [email or web address] LABORATORY mg/dL [facility] CALCIUM 8.3 (L) 8.6 - 10.6 [facility] [[email or web address] LABORATORY mg/dL [facility] eGFR Calculation 138.3 mL/min/1.73m2 [facility] ([facility] [place] eGFR Calculation 167.7 mL/min/1.73m2 [facility] [[email or web address]] LABORATORY () [facility] Specimen Blood - VENOUS Narrative Performed At Association of Glomerular Filtration Rate [facility] (GFR) and Staging of Kidney [...] [facility] [[email or web address]] LABORATORY CLIA: [id number] [place] [address] [facility] [address] CBC with Differential (04/26/2020 6:41 PM PLAY BACK OPERATOR) [facility] WBC 8.80 4.20 - 10.70 [facility] [[email or web address]] LABORATORY 10*3/L [facility] RBC 4.48 4.26 - 5.52 [facility] [[email or web address]] LABORATORY 10*6/L [facility] HGB 13.6 12.2 - 16.4 [facility] [[email or web address] LABORATORY g/dL [facility] HCT 38.8 38.4 - 49.3 % [facility] [[email or web address] LABORATORY [facility] MCV 86.6 81.7 - 95.6 fL [facility] MCH 30.4 26.1 - 32.7 pg [facility] MCHC 35.1 (H) 31.2 - 35.0 [facility] g/dL [facility] RDW-SD 37.9 (L) 38.5 - 51.6 fL [facility] RDW-CV 11.9 (L) 12.1 - 15.4 % [facility] PLT 239 150 - 328 [facility] 10*3/L [facility] MPV 10.4 9.8 - 13.0 fL [facility] NRBC/100 WBC 0.0 0.0 - 10.0 /100 [facility] WBCs [facility] NRBC x10^3 <0.01 10*3/L [facility] GRAN MAT (NEUT) % 63.8 % [facility] IMM GRAN % 0.80 % [facility] LYMPH % 24.9 % [facility] MONO % 8.2 % [facility] EOS % 1.6 % [facility] BASO % 0.7 % [facility] GRAN MAT x10^3(ANC) 5.62 1.99 - 6.95 [facility] 10*3/uL [facility] IMM GRAN x10^3 0.07 (H) 0.00 - 0.06 [facility] 10*3/uL [facility] LYMPH x10^3 2.19 1.09 - 3.23 [facility] x[facility]^3 0.72 0.36 - 1.02 [facility] x10^3 0.14 0.06 - 0.53 [facility] x10^3 0.06 0.01 - 0.09 [facility] 10*3/uL [facility] Specimen Blood - VENOUS Performing Organization Address City/State/Zipcode Phone Number [facility] CLIA: [id number] [place] [address] [facility] [address] POCT GLUCOSE (AUTOMATED) (04/26/2020 6:36 PM PLAY BACK OPERATOR) Pathologist [facility] [place] POCT GLU 439 (H) 70 - 110 mg/dL [facility] Specimen Blood Performing Organization Address City/State/Zipcode Phone Number [facility] CLIA: [id number] [place] [address] documented in this encounter Visit Diagnoses Diagnosis Hyperglycemia - Primary Other abnormal glucose documented in this encounter Administered Medications Medication Order MAR Action Action Date Dose Rate Site divalproex (DEPAKOTE) EC tablet Given 04/26/2020 7:48 PM [employer] BACK OPERATOR 50 0 mg 500 mg 500 mg, Oral, Q12H, First dose on Sun04/26/20 at 2000, Until Discontinued, Routine Medication Order MAR Action Action Date Dose Rate Site insulin regular human (HUMULIN Given 04/26/2020 7:54 PM [employer] BACK OPERATOR 10 Units R) injection 10 Units 10 Units, Slow IV Push, ONCE, 1 dose, Sun04/26/20 at 2100, STAT NaCl 0.9% (NS) bolus infusion New Bag 04/26/2020 6:54 PM [employer] BACK OPERATOR 1,000 mL 999 mL/hr 1,000 mL at 999 mL/hr, 1,000 mL, IV Infusion, ONCE, 1 dose, Sun04/26/20 at 1845, JEANE paliperidone (INVEGA) 24 hour tablet 3 m g Given 04/26/2020 7:48 PM [employer] BACK [employer]PERATOR 3 mg 3 mg, Oral, DAILY, 1 dose, First dose on Sun04/26/20 at 1945, Routine risperiDONE (RISPERDAL) tablet 0.25 mg Given 04/26/2020 7:48 PM [employer] BACK OPERATOR 0.25 mg 0.25 mg, Oral, ONCE, 1 dose, Sun04/26/20 at 1945, Routine documented in this encounter Insurance Payer Benefit Plan / Subscriber ID Effective Phone Address T ype Group Dates SYDNI TROY [id number] [address] [facility] [place] [id number] MANAGED MEDICAID [place], [place]ICA[place] documented as of this encounter
--- OUTSIDE RECORDS SUMMARY | 2020-04-27 19:38 | XMS REPORT | Summary of Care ---
:1975 Author Organization [facility] - [facility] Address [address] [place] [id number] Care Team Providers Name Role Phone Pcp, Patient Does Not Have A Primary Care Provider +[id number] Reason for Referral Radiology Services (STAT) Status Reason Specialty Diagnoses / Referred By Referred To Procedures Contact Contact New Request Diagnostic Diagnoses Suicidal ideation Missy Rawls, Radiology Procedures XR CHEST [address] [address] Reason for Visit Reason Comments Pain Hallucinations Encounter Details Date Type Department Care Team Description 04/20/2020 - Emergency ADC-Emergency Missy Rawls, [address] [facility] [place] [id number] Suicidal ideation (Primary Dx); 04/21/2020 Department Gopi Palomino MD [address] [place] [address] [address] [place], [place] [id number] Hyperglycemia [address], [place] [id number] Allergies No Known Allergiesdocumented as of this encounter (statuses as of 04/21/2020) Medications Medication Sig Dispensed Refills Start Date [...] as of this encounter (statuses as of 04/21/2020) Active Problems Problem Noted Date Suicidal ideation 04/21/2020 Auditory hallucinations 04/21/2020 Schizophrenia 04/13/2016 Uncontrolled type 2 diabetes mellitus with complicatio n, with long-term 04/13/2016 current use of insulin documented as of this encounter (statuses as of 04/21/2020) Social History Tobacco Use Types Packs/Day Years Used Date Never Assessed Sex Assigned at Date Recorded Not on file COVID-19 Exposure Response Date Recorded In the last month, have you been in contact with No / Unsure 04/20/2020 11:35 PM CUSTOMER SALES SERVICE MANAGER someone who was confirmed or suspected to have Coronavirus / COVID-19? documented as of this encounter Last Filed Vital Signs Vital Sign Reading Time Taken Comments Blood Pressure 130/84 04/21/2020 7:45 AM CUSTOMER SALES SERVICE MANAGER Pulse 94 04/21/2020 7:45 AM CUSTOMER SALES SERVICE MANAGER Temperature 36.7 C (98 F) 04/20/2020 11:32 PM CUSTOMER SALES SERVICE MANAGER Respiratory Rate 18 04/21/2020 7:45 AM CUSTOMER SALES SERVICE MANAGER Oxygen Saturation 99% 04/21/2020 7:45 AM CUSTOMER SALES SERVICE MANAGER Inhaled Oxygen Concentration - - Weight 63.5 kg (140 lb) 04/20/2020 11:32 PM CUSTOMER SALES SERVICE MANAGER Height 162.6 cm (5' 4") 04/20/2020 11:32 PM CUSTOMER SALES SERVICE MANAGER Body Mass Index 24.03 04/20/2020 11:32 PM CUSTOMER SALES SERVICE MANAGER documented in this encounter Discharge Instructions Dickson Brunson DO - 04/21/2020 DIAGNOSIS Diagnoses that have been ruled out: None Diagnoses that are still under consideration: None Final diagnoses: Suicidal ideation Hyperglycemia NO LIFE-THREATENING FINDINGS ON TODAY'S EXAM. PROCEDURES IN THE ER TODAY: Orders Placed This Encounter Procedures XR CHEST 1 VW CBC WITH DIFF COMP. METABOLIC PANEL (95867) TROPONIN I URINALYSIS ETHANOL SALICYLATE ACETAMINOPHEN ADC / [facility] - DRUG SCREEN TRIAGE COVID-19 (ID NOW RAPID TESTING) LAB ONLY COVID INTERPRETATION ACUTE CARE VENOUS BLOOD GAS POCT GLUCOSE (AUTOMATED) POCT GLUCOSE (AUTOMATED) POCT GLUCOSE (AUTOMATED) POCT GLUCOSE (AUTOMATED) MEDICATIONS ADMINISTERED IN THE ER TODAY AND DISCHARGE MEDICATIONS: Orders Placed This Encounter Medications NaCl 0.9% (NS) bolus infusion 1,000 mL insulin NPH (HUMULIN N) injection 10 Units metFORMIN (GLUCOPHAGE) tablet 500 mg NaCl 0.9% (NS) bolus infusion 1,000 mL glipiZIDE (GLUCOTROL) tablet 10 mg FOLLOW-UP RECOMMENDATIONS: RECOMMEND FOLLOW-UP WITH A PRIMARY CARE PROVIDER OR SPECIALIST IN 2-5 DAYS, ESPECIALLY IF NO IMPROVEMENT IN SYMPTOMS. MAY FOLLOW-UP WITH A PROVIDER OF YOUR CHOICE, SUCH : 1. A PHYSICIAN OF YOUR CHOICE 2. [facility], . LOCATIONS IN [facility] 3. [facility], [address] [place] [address]; [phone] OR, IF YOU WISH TO FOLLOW-UP WITHIN THE [facility], MAY TRY THESE OPTIONS (CLINIC APPOINTMENTS AVAILABLE ON [id number] BASIS): 1. SCHEDULE AN APPOINTMENT ONLINE AT WWW.[facility] 2. OR CALL THE [facility] AT OR 3. OR CALL YOUR [facility] PHYSICIAN'S OFFICE DIRECTLY IF YOU ARE ALREADY AN ESTABLISHED [facility] PATIENT. RETURN TO ER FOR WORSENING OF SYMPTOMS. AttachmentsThe following attachments cannot be sent through Care Everywhere. Suicide and Depression (Korean)documented in this encounter ED Notes Hazel Oseguera RN - 04/21/2020 6:10 AM CSTPt resting with eyes closed, respiratory even and unlabored, skin w&d and normal color, no change to iv site, patient remains on suicide precaution, and sitter at bedside. Will continue to monitor. Hazel Riggs RN - 04/21/2020 4:35 AM CSTPt resting with eyes closed, respiratory even and unlabored, skin w&d and normal color, no change to iv site, patient remains on suicide precaution, and sitter at bedside. Patient given meds per md orders, patient tolerated well, no change to iv site, Will continue to monitor. Hazel Riggs RN - 04/21/2020 3:45 AM CSTPt resting with eyes closed, respiratory even and unlabored, skin w&d and normal color, no change to iv site, patient remains on suicide precaution, and sitter at bedside. Will continue to monitor. Hazel Riggs RN - 04/21/2020 2:18 AM CSTPt resting with eyes closed, respiratory even and unlabored, skin w&d and normal color, no change to iv site, patient remains on suicide precaution, and sitter at bedside. Will continue to monitor. Hazel Riggs RN - 04/21/2020 1:05 AM CSTPt resting with eyes closed, respiratory even and unlabored, skin w&d and normal color, no change to iv site, patient remains on suicide precaution, and sitter at bedside. Will continue to monitor. Hazel Riggs RN - 04/20/2020 11:35 PM CSTPatient states that he hasn't been on any of his meds X 1 month, patient is hearing voices and states he has thoughts of killing himself. Patient states he has plan to throw himself in front of moving traffic. OMER SALES SERVICE MANAGER Missy Rawls PAC - 04/20/2020 11:30 PM CST [facility] Emergency Department Note Patient Name: Bryn Camargo Date of : 1975 44 year old male Treatment Room: [facility] Primary Care Physician: PATIENT DOES NOT HAVE A PCP Patient Escorted by: Self [9] Mode of Arrival: EMS - [facility] ([facility]) [43] EMS Treatment Prior to ED Arrival: [employer]SEMBLER treatment: Saline lock [employer]SEMBLER treatment comments: ns 200 cc Travel and Exposure Screening: Symptoms Does patient have any of these symptoms?: (not recorded) Exposure Screening Has patient had contact with someone with a communicable disease in the last month?: (not recorded) Diseases exposed to:: (not recorded) Is Patient ?: (not recorded) Exposure Date: (not recorded) Chief Complaint: Chief Complaint Patient presents with Pain Hallucinations History of Present Illness: The patient presents for evaluation of suicidal ideations. He states that he is having hallucinations that are people telling him that they are going to kill him. He said that rather than letting them kill him, he would rather kill himself by throwing himself out in front of a car. He has been hospitalized numerous times for psych issues but is not currently on his medication. He has schizophrenia among other things. He is also diabetic. Patient is difficult to get to answer specific questions but said that is is feeling fine. He denies any pain. Past Medical History/Immunizations: Past Medical History: Diagnosis Date DM (diabetes mellitus) HTN (hypertension) Schizophrenia Tetanus received in last 5 years: Unknown Childhood immunizations: Up-to-date Allergies: No Known Allergies Past Social History: Substance & Sexual Activity No substance use or sexual activity history on file. Past Surgical History: No past surgical history on file. Review of Systems: Review of Systems Constitutional: Negative. HENT: Negative. Eyes: Negative. Respiratory: Positive for shortness of breath. Cardiovascular: Positive for chest pain. Gastrointestinal: Negative. Genitourinary: Negative. Musculoskeletal: Negative. Bilateral foot pain Skin: Negative. Neurological: Negative. Psychiatric/Behavioral: Negative. Physical Exam: ED Triage Vitals [04/20/20 2332] Weight 63.5 kg (140 lb) Actual or estimated Height 1.626 m (5' 4") BP (!) 141/87 Pulse 109 Resp 18 Temp 36.7 C (98 F) Temp src SpO2 97 % Measured on Room air Physical Exam Vitals signs and nursing note reviewed. Constitutional: General: He is not in acute distress. Appearance: Normal appearance. He is well-developed. He is not ill-appearing, toxic-appearing or diaphoretic. HENT: Head: Normocephalic and atraumatic. Eyes: General: Right eye: No discharge. Left eye: No discharge. Conjunctiva/sclera: Conjunctivae normal. Cardiovascular: Rate and Rhythm: Normal rate and regular rhythm. Heart sounds: Normal heart sounds. No murmur. No friction rub. No gallop. Pulmonary: Effort: Pulmonary effort is normal. No respiratory distress. Breath sounds: Normal breath sounds. No stridor. No wheezing, rhonchi or rales. Skin: General: Skin is warm and dry. Neurological: General: No focal deficit present. Mental Status: He is alert and oriented to person, place, and time. Psychiatric: Mood and Affect: Mood normal. Speech: Speech normal. Behavior: Behavior normal. Thought Content: Thought content is paranoid and delusional. Thought content includes suicidal ideation. Thought content includes suicidal plan. Judgment: Judgment normal. Radiology: Hospital Encounter on 04/20/20 XR CHEST 1 VW Narrative EXAM: XR CHEST 1 VW HISTORY: si COMPARISON: Chest x-ray 03/17/2020 Technique: AP view radiograph of the chest FINDINGS: The lungs are clear. No focal consolidation, pleural effusion or pneumothorax is seen. The cardiac silhouette is normal in size. No acute bony abnormality. Impression No acute cardiopulmonary abnormality. Preliminary Report Dictated by Resident: En Curiel Lab Results (24h): Recent Results (from the past 24 hour(s)) CBC WITH DIFF Collection Time: 04/21/20 12:00 AM Result Value Ref Range WBC 9.25 4.20 - 10.70 10*3/L RBC 4.62 4.26 - 5.52 10*6/L HGB 14.7 12.2 - 16.4 g/dL HCT 40.3 38.4 - 49.3 % MCV 87.2 81.7 - 95.6 fL MCH 31.8 26.1 - 32.7 pg MCHC 36.5 (H) 31.2 - 35.0 g/dL RDW-SD 38.7 38.5 - 51.6 fL RDW-CV 12.1 12.1 - 15.4 % PLT 246 150 - 328 10*3/L MPV 10.8 9.8 - 13.0 fL NRBC/100 WBC 0.0 0.0 - 10.0 /100 WBCs NRBC x10^3 <0.01 10*3/L GRAN MAT (NEUT) % 54.3 % IMM GRAN % 0.60 % LYMPH % 31.2 % MONO % 10.9 % EOS % 2.4 % BASO % 0.6 % GRAN MAT x10^3(ANC) 5.01 1.99 - 6.95 10*3/uL IMM GRAN x10^3 0.06 0.00 - 0.06 10*3/uL LYMPH x10^3 2.89 1.09 - 3.23 10*3/uL MONO x10^3 1.01 0.36 - 1.02 10*3/uL EOS x10^3 0.22 0.06 - 0.53 10*3/uL BASO x10^3 0.06 0.01 - 0.09 10*3/uL COMP. METABOLIC PANEL (43367) Collection Time: 04/21/20 12:00 AM Result Value Ref Range NA 132 (L) 135 - 145 mmol/L K 3.7 3.5 - 5.0 mmol/L CL 94 (L) 98 - 108 mmol/L CO2 TOTAL 29 23 - 31 mmol/L AGAP 9 2 - 16 BUN 15 7 - 23 mg/dL GLUCOSE 503 (HH) 70 - 110 mg/dL CREATININE 0.82 0.60 - 1.25 mg/dL TOTAL BILI 0.5 0.1 - 1.1 mg/dL CALCIUM 8.4 (L) 8.6 - 10.6 mg/dL T PROTEIN 6.3 6.3 - 8.2 g/dL ALBUMIN 3.6 3.5 - 5.0 g/dL ALK PHOS 144 (H) 34 - 122 U/L ALTv 13 5 - 50 U/L AST(SGOT) 17 13 - 40 U/L eGFR Calculation (Non-) 102.1 mL/min/1.73m2 eGFR Calculation () 123.7 mL/min/1.73m2 TROPONIN I Collection Time: 04/21/20 12:00 AM Result Value Ref Range TROPONIN I <0.012 <=0.034 ng/mL URINALYSIS Collection Time: 04/21/20 12:00 AM Result Value Ref Range APPEARANCE Clear Clear COLOR Straw (A) Yellow PH 6.0 4.8 - 8.0 SP GRAVITY 1.036 (H) 1.003 - 1.030 GLU U QUAL 500 mg/dL (A) Normal BLOOD Negative Negative KETONES Negative Negative PROTEIN Negative Negative UROBILIN Normal Normal BILIRUBIN Negative Negative NITRITE Negative Negative LEUK MONICO Negative Negative RBC/HPF 1 0 - 3 HPF WBC/HPF <1 0 - 5 HPF BACTERIA Few (A) Negative MUCOUS Slight (A) Negative LPF ETHANOL Collection Time: 04/21/20 12:00 AM Result Value Ref Range ALCOHOL <10 mg/dL SALICYLATE Collection Time: 04/21/20 12:00 AM Result Value Ref Range SALICYLATE <10 mg/L ACETAMINOPHEN Collection Time: 04/21/20 12:00 AM Result Value Ref Range ACETAMINOP <10.0 (L) 10.0 - 30.0 ug/mL ADC / [facility] - DRUG SCREEN TRIAGE Collection Time: 04/21/20 12:00 AM Result Value Ref Range BENZO U Negative Negative JOSSELYN U Negative Negative AMPHET Negative Negative THC Negative Negative METHADONE Negative Negative Meth U Negative Negative OPIATES Negative Negative Cocaine Metabolite Presumptive Positive (A) Negative PROPOXY Negative Negative Tric U Negative Negative PCP Negative Negative OXYCOD Negative Negative COVID-19 (ID NOW RAPID TESTING) Collection Time: 04/21/20 12:00 AM Specimen: NASOPHARYNGEAL SWAB Result Value Ref Range SARS-CoV-2 Rapid ID NOW Not Detected Not Detected ACUTE CARE VENOUS BLOOD GAS Collection Time: 04/21/20 12:51 AM Result Value Ref Range PH 7.43 (H) 7.32 - 7.42 PCO2 TWYLA 45 41 - 51 mmHg PO2 TWYLA 51 (H) 25 - 40 mmHg HCO3 TWYLA 29 (H) 24 - 28 mEq/L AC VBE(BEAKER) 3.9 mEq/L EKG: Sinus tachycardia, HR 103, no STEMI, no significant change from previous EKG Orders and Treatments: Orders Placed This Encounter Procedures XR CHEST 1 VW CBC WITH DIFF COMP. METABOLIC PANEL (59628) TROPONIN I URINALYSIS ETHANOL SALICYLATE ACETAMINOPHEN ADC / C - DRUG SCREEN TRIAGE COVID-19 (ID NOW RAPID TESTING) LAB ONLY COVID INTERPRETATION ACUTE CARE VENOUS BLOOD GAS Orders Placed This Encounter Medications NaCl 0.9% (NS) bolus infusion 1,000 mL insulin NPH (HUMULIN N) injection 10 Units metFORMIN (GLUCOPHAGE) tablet 500 mg ED COURSE Patient with elevated glucose; discussed admitting patient to hospital for management of diabetes before transfer to psych facility vs treating in ED with Dr. Alvarado and Dr. Palomino. Will give meds in ED and reassess patient in a little while to see what glucose is. No DKA. Other labs negative. Patient signed out to Dr. Palomino for continued management. MDM: Coding Scoring Tools: No data recorded Diagnosis/Impression: ICD-10-CM ICD-9-CM 1. Suicidal ideation R45.851 V62.84 2. Hyperglycemia R73.9 790.29 Disposition/Condition: ED Disposition None Discharge Medications: Patient's [...] medications on file Follow-up: Electronically signed by: GISSELL Melendez 04/21/2020 1:23 AM OMER SALES SERVICE MANAGER Associated attestation - Gopi Palomino MD - 04/21/2020 3:44 AM CSTOn the date of service, I reviewed the patients history, exam findings, diagnostic and any interventions or procedures in detail of the assigned advance practice provider and was available for consultation. Gopi Palomino Jr., MD Clinical [facility] Emergency Department documented in this encounter Miscellaneous Notes ED Nurse Note - Joya Casanova RN - 04/21/2020 8:31 AM CSTPT D/C home. GCS15, VS stable, no ataxia noted. Given no prescriptions and D/C paperwork. S/S relieved at this time. Pt ambulatory at time of discharge. Pt educated on suicidal thoughts, staying compliant with psych meds, follow up care with [facility], s/s worsening condition. Suicide hotline number given to patient on paperwork. Encouraged patient if he feels suicidal again he is to come back to ED. Pt verbalized understanding. Work/school note was not given. D Nurse Note - Joya Casanova RN - 04/21/2020 8:25 AM CSTPT requesting to speak to provider. States he is not longer suicidal and would like to leave. He is alert, calm, oriented x4 and appears in no distress. D Nurse Note - Neli Marrero RN - 04/21/2020 7:50 AM CSTNurse to nurse report done at this time with [place] at [facility]; awaiting return call in regards to if they will accept or denial of patient. Patient remains under suicide precautions. Continuous observation in place, patient currently calm and cooperative. D Nurse Note - Neli Marrero RN - 04/21/2020 7:30 AM CSTBreakfast agnes provided for patient; patient calm and cooperative at this time. D Nurse Note - Danilo Figueroa RN - 04/21/2020 6:32 AM [facility] at [facility] - currently still working on finding a bed for patient. Communications tab is up-to-date. uicide Risk Assessment Note - Missy Rawls PAC - 04/20/2020 11:49 PM CST Suicide Risk - Assessment and Plan [place]: 1) Have you wished you were or could go to sleep and not wake up?: (P) Yes 2) Have you had thoughts of killing yourself?: (P) Yes 3) Have you been thinking about how you might kill yourself?: (P) Yes 3a) Describe: (P) "throw myself out in front of a car or bus" 4) Suicidal ideation with some intent?: (P) Yes 4a) Describe: (P) plans to throw himself in front of a car 5) Intent with plan: (P) Yes 5a) Describe: (P) plans to throw himself in front of a car 6) Suicidal Behavior or preparation for suicide?: (P) Yes 6a) Describe: (P) tried to throw himself out in front of a car earlier today or yesterday but he said he can't remember when it was 6b) Was it in the past 3 months?: (P) Yes [place] Score: )Suggested risk level: (P) High SAFE-T: Current and past psychiatric diagnoses: (P) Psychotic disorder Presenting symptoms: (P) Command hallucinations;Anxiety and/or panic;Hopelessness or despair;Psychosis Family history: (P) No family history of psychiatric illness Activating Events: (P) Pending incarceration or homelessness;Current or pending isolation or feelingalone Precipitants / stressors: (P) None identified Protective factors: (P) Positive family/friend relationships Access to Lethal Means: Does patient have access to a gun or access to guns?: (P) No Protective Factors: Specific Questions of Thoughts, Plans, Intent: Frequency- how many times have you had these thought?: (P) Many times a day 2.Duration - When you have the thoughts, how long do they last?: (P) More than 8 hours/persistent orcontinuous 3.Controllability - could/can you stop thinking about killing yourself or wanting to if you wantto? "Is it easy, a little hard, very hard, or are you unable?": (P) Unable to control thoughts 4.Deterrents - are there things, anyone or anything (family, spiritism, pain of ) that have stopped you from wanting to or acting on thoughts of committing suicide?: (P) Deterrents definitely did not stop Reasons for ideation - What are the reasons you have for wanting to or kill yourself? Was it to end pain, stop the way you are feeling, or to get attention, or get revenge and reaction from others?: (P) (hears voices that tell him that they were going to kill him so he figured he would do it himself) Behavior Assessment: 1.Were there preparatory acts like buying pills, guns, giving things away, or writing suicide note?:(P) No 2.Was an attempt aborted or self - interrupted?: (P) No 3.Was an attempt interrupted by someone else?: (P) No 4.Was there an actual attempt?: (P) Yes(he said that he tried to throw himself in front of a car today or yesterday but can't remember a lot of details) 5.Is there non suicidal self injury? Cutting, biting, skin picking: (P) No 6.For youth: parents or guardians should be asked about thoughts, plans, behaviors, mood changes, etc: (P) Comments(n/a) 7.Is there homicidal ideation: if so, describe: (P) No Stratification: High Suicide Risk Moderate Suicide [...] Follow-up determined by the inpatient Psychiatric facility. OMER SALES SERVICE MANAGER documented in this encounter Plan of Treatment Name Type Priority Associated Diagnoses Date/Ti me EKG-12 LEAD ROUTINE ONCE HEART STATION STAT Suicidal ideati on 04/20/2020 11:57 PM CUSTOMER SALES SERVICE MANAGER LAB ONLY COVID LAB Routine Suicidal ideation 04/21/19 21 12:00 INTERPRETATION AM CUSTOMER SALES SERVICE MANAGER Name Type Priority Associated Order Schedule Diagnoses EKG-12 LEAD ROUTINE HEART STATION STAT Suicidal ideation ON CE for 1 ONCE Occurrences sta rting 04/21/2020 unti l 04/21/2020 LAB ONLY COVID LAB Routine Suicidal ideation ONCE for 1 INTERPRETATION Occurrences s tarting 04/21/2020 unti l 04/21/2020 Health Maintenance Due Date Last Done Comments HgA1C 10/04/1976 EYE EXAM 10/04/1985 LDL-C 10/04/1985 URINE MICROALBUMIN 10/04/1985 Depression Screening 1987 FOOT EXAM 10/04/1993 DTaP,Tdap,and Td Vaccines 10/04/1994 (1 - Tdap) INFLUENZA VACCINE (#1) 2019 CREATININE (SERUM) 04/21/2021 04/21/2020, 03/31/2020, 03/17/2020, Additional history exists PNEUMOCOCCAL 0-64 YEARS Aged Out No longe r eligible COMBINED SERIES based on patient 's age to complete this topic documented as of this encounter Procedures Procedure Name Priority Date/Time Associated Diagnosis Comme nts POCT GLUCOSE Routine 04/21/2020 7:07 Results for this (AUTOMATED) AM CUSTOMER SALES SERVICE MANAGER procedure are i n the results section. POCT GLUCOSE Routine 04/21/2020 4:30 Results for this (AUTOMATED) AM CUSTOMER SALES SERVICE MANAGER procedure are i n the results section. POCT GLUCOSE Routine 04/21/2020 4:11 Results for this (AUTOMATED) AM CUSTOMER SALES SERVICE MANAGER procedure are i n the results section. POCT GLUCOSE Routine 04/21/2020 2:04 Results for this (AUTOMATED) AM CUSTOMER SALES SERVICE MANAGER procedure are i n the results section. ACUTE CARE VENOUS STAT 04/21/2020 12:51 Hyperglycemia Resul ts for this BLOOD GAS AM CUSTOMER SALES SERVICE MANAGER procedure are i n the results section. XR CHEST 1 VW STAT 04/21/2020 12:23 Suicidal ideation Resul ts for this AM CUSTOMER SALES SERVICE MANAGER procedure are i n the results section. COVID-19 (ID NOW STAT 04/21/2020 12:00 Suicidal ideation Re sults for this RAPID TESTING) AM CUSTOMER SALES SERVICE MANAGER procedure are in the results section. ADC / [facility] - DRUG STAT 04/21/2020 12:00 Suicidal ideation Re sults for this SCREEN TRIAGE AM CUSTOMER SALES SERVICE MANAGER procedure are in the results section. URINALYSIS STAT 04/21/2020 12:00 Suicidal ideation Result s for this AM CUSTOMER SALES SERVICE MANAGER procedure are i n the results section. CBC WITH DIFF STAT 04/21/2020 12:00 Suicidal ideation Resul ts for this AM CUSTOMER SALES SERVICE MANAGER procedure are i n the results section. ETHANOL STAT 04/21/2020 12:00 Suicidal ideation Result s for this AM CUSTOMER SALES SERVICE MANAGER procedure are i n the results section. SALICYLATE STAT 04/21/2020 12:00 Suicidal ideation Result s for this AM CUSTOMER SALES SERVICE MANAGER procedure are i n the results section. ACETAMINOPHEN STAT 04/21/2020 12:00 Suicidal ideation Resul ts for this AM CUSTOMER SALES SERVICE MANAGER procedure are i n the results section. COMP. METABOLIC PANEL STAT 04/21/2020 12:00 Suicidal ideati on Results for this ([id number]) AM CUSTOMER SALES SERVICE MANAGER procedure are i n the results section. TROPONIN I STAT 04/21/2020 12:00 Suicidal ideation Result s for this AM CUSTOMER SALES SERVICE MANAGER procedure are i n the results section. documented in this encounter Results POCT GLUCOSE (AUTOMATED) (04/21/2020 7:07 AM CUSTOMER SALES SERVICE MANAGER) Pathologist Sig nature POCT GLU 259 (H) 70 - 110 mg/dL [facility] Specimen Blood Performing Organization Address City/State/Zipcode Phone Number [facility] CLIA: [id number] [place] [address] POCT GLUCOSE (AUTOMATED) (04/21/2020 4:30 AM CUSTOMER SALES SERVICE MANAGER) Pathologist Sig nature POCT GLU 264 (H) 70 - 110 mg/dL [facility] Specimen Blood Performing Organization Address [facility] [place], [place] Phone Number [facility] CLIA: [id number] [place] [address] POCT GLUCOSE (AUTOMATED) (04/21/2020 4:11 AM CUSTOMER SALES SERVICE MANAGER) Pathologist Sig nature POCT GLU 297 (H) 70 - 110 mg/dL [facility] Specimen Blood Performing Organization Address [facility] [place], [place] Phone Number [facility] CLIA: [id number] [place], [place] [id number] LABORATORY [address] POCT GLUCOSE (AUTOMATED) (04/21/2020 2:04 AM CUSTOMER SALES SERVICE MANAGER) Pathologist Sig nature POCT GLU 293 (H) 70 - 110 mg/dL [facility] Specimen Blood Performing Organization Address [facility] [place], [place] Phone Number [facility] CLIA: [id number] [place], [place] [address] LABORATORY [address] [facility] ACUTE CARE VENOUS BLOOD GAS (04/21/2020 12:51 AM CUSTOMER SALES SERVICE MANAGER) Pathologist Sig nature PH 7.43 (H) 7.32 - 7.42 [facility] PCO2 TWYLA 45 41 - 51 mmHg [facility] PO2 TWYLA 51 (H) 25 - 40 mmHg [facility] HCO3 TWYLA 29 (H) 24 - 28 mEq/L [facility] AC VBE(BEAKER) 3.9 mEq/L [facility] Specimen Blood - VENOUS Performing Organization Address [facility] [place], [place] Phone Number [facility] CLIA: [id number] [place] [address] XR CHEST 1 VW (04/21/2020 12:23 AM CUSTOMER SALES SERVICE MANAGER) Specimen Impressions Performed At PACS/VR/DOSE No acute cardiopulmonary abnormality. Preliminary Report Dictated by Resident: En Curiel I, Herb Wang MD., have reviewed [facility] s study and agree with the above report. Narrative Performed At This result has an attachment that is no t available. EXAM: XR CHEST 1 VW PACS/VR/DOSE HISTORY: si COMPARISON: Chest x-ray 03/17/2020 Technique: AP view radiograph of the chest FINDINGS: The lungs are clear. No focal consolidation, pleural e ffusion or pneumothorax is seen. The cardiac silhouette is normal in size. No acute bony abnormality. Procedure Note [facility], Radiant Results Inft User - 2020 7:40 AM CUSTOMER SALES SERVICE MANAGER EXAM: XR CHEST 1 VW HISTORY: si COMPARISON: Chest x-ray 03/17/2020 Technique: AP view radiograph of the ch est FINDINGS: The lungs are clear. No focal consolidat ion, pleural effusion or pneumothorax is seen. The cardiac silhouette is normal in size . No acute bony abnormality. IMPRESSION No acute cardiopulmonary abnormality. Preliminary Report Dictated by Resident: En Curiel I, Herb Wang MD., have reviewed [facility] study and agree with the above report. Performing Organization Address City/State/Zipcode Phone Number PACS/VR/DOSE COVID-19 (ID NOW RAPID TESTING) (04/21/2020 12:00 AM CUSTOMER SALES SERVICE MANAGER) SARS-CoV-2 Rapid ID Not Detected Not Detected [facility] Specimen Swab - NASOPHARYNGEAL SWAB Narrative Performed At [place] NOW COVID-19 Assay is an isothermal nucleic [facility] acid amplification test intended for the qualitative detection of nucleic acid from SARS-CoV-2 viral RNA in nasopharyngeal (COAL SCREENER) specimens. It is used under Emergency Use [...] testing if clinically indicated. Performing Organization Address [facility] [place], [place] Phone Number [facility] CLIA: [id number] [place] [address] [place] [address] ADC / LCC - DRUG SCREEN TRIAGE (04/21/2020 12:00 AM CUSTOMER SALES SERVICE MANAGER) BENZO U Negative Negative [facility] JOSSELYN U Negative Negative [facility] AMPHET Negative Negative [facility] THC Negative Negative [facility] METHADONE Negative Negative [facility] Meth U Negative Negative [facility] OPIATES Negative Negative [facility] Cocaine Metabolite Presumptive Negative [facility] PROPOXY Negative Negative [facility] Tric U Negative Negative [facility] PCP Negative Negative [facility] OXYCOD Negative Negative [facility] Specimen Urine - URINE, CLEAN CATCH Narrative Performed At Urine Drug Cutoff Ranges [facility] Benzodiazepines: 150 ng/mL Barbiturates: 200 ng/mL Amphetamine: 500 ng/mL Cannabinoids: 50 ng/mL Methadone: 200 ng/mL Methamphetamine: 500 ng/mL Opiates: 100 ng/mL or 2000 ng/mL Cocaine: 150 ng/mL Propoxyphene: 300 ng/mL Tricyclics: 300 ng/mL Oxycodone: 100 ng/mL PCP: 25 ng/mL The results are to be used only for medical (i.e., treatment) purposes. Unconfirmed screening results must not be used for non-medical purposes (e.g., employment testing, legal testing). Performing Organization Address [facility] Phone Number [facility] CLIA: [id number] [place] [address] [place] [address] Drive ACETAMINOPHEN (04/21/2020 12:00 AM CUSTOMER SALES SERVICE MANAGER) Pathologist Sig nature ACETAMINOP <10.0 (L) 10.0 - 30.0 ug/mL [facility] Specimen Blood - ARM, RIGHT Narrative Performed At Toxic: Greater than 200 ug/mL @ 4 hour post [facility] ingestion or greater than 50 ug/mL @ 12 hour post ingestion Performing Organization Address [facility]/Zipcode Phone Number [facility] CLIA: [id number] [place] [address] SALICYLATE (04/21/2020 12:00 AM CUSTOMER SALES SERVICE MANAGER) Pathologist Sig nature SALICYLATE <10 mg/L [facility] Specimen Blood - ARM, RIGHT Narrative Performed At Therapeutic Range: [facility] Analgesic and Antipyretic Use 20-100 mg/L Anti-Inflammatory Use 100-250 mg/L Toxic Range: Greater than 300 mg/L Performing Organization Address [facility] Phone Number [facility] CLIA: [id number] [place] [address] ETHANOL (04/21/2020 12:00 AM CUSTOMER SALES SERVICE MANAGER) Pathologist Sig nature ALCOHOL <10 mg/dL [facility] Specimen Blood - ARM, RIGHT Narrative Performed At <10 Negative [facility] 50-100 Toxic >100 Depression of FORKLIFT WHEEL LOADER >400 Fatalities Reported Performing Organization Address [facility] Phone Number [facility] CLIA: [id number] [place] [address] URINALYSIS (04/21/2020 12:00 AM CUSTOMER SALES SERVICE MANAGER) Pathologist Sig nature APPEARANCE Clear Clear [facility] COLOR Straw (A) Yellow [facility] PH 6.0 4.8 - 8.0 [facility] SP GRAVITY 1.036 (H) 1.003 - 1.030 [facility] GLU U QUAL 500 mg/dL (A) Normal [facility] BLOOD Negative Negative [facility] KETONES Negative Negative [facility] PROTEIN Negative Negative [facility] UROBILIN Normal Normal [facility] BILIRUBIN Negative Negative [facility] NITRITE Negative Negative [facility] LEUK MONICO Negative Negative [facility] RBC/HPF 1 0 - 3 HPF [facility] WBC/HPF <1 0 - 5 HPF [facility] BACTERIA Few (A) Negative [facility] MUCOUS Slight (A) Negative LPF [facility] Specimen Urine - URINE, CLEAN CATCH Performing Organization Address City/[facility]/Zipcode Phone Number [facility] CLIA: [id number] [place] [address] [address] [facility] [address] TROPONIN I (04/21/2020 12:00 AM CUSTOMER SALES SERVICE MANAGER) Pathologist Sig nature TROPONIN I <0.012 <=0.034 ng/mL [facility] Specimen Blood - ARM, RIGHT Narrative Performed At Equal or Less than 0.034 ng/ml---Normal [facility] Note: Cardiac troponin begins to rise 3-4 hours after the onset of ischemia. Repeat in 4-6 hours if the sample was drawn within 3-4 hours of the onset of the symptom and found normal. Between 0.035 and 0.120 ng/mL--- Borderline. Questionable myocardial injury or necros is Note: Serial measurement may be necessary to [...] patient's use of biotin. Performing Organization Address City/[facility]/Zipcode Phone Number [facility] CLIA: [id number] [place] [address] COMP. METABOLIC PANEL (18057) (04/21/2020 12:00 AM CUSTOMER SALES SERVICE MANAGER) NA 132 (L) 135 - 145 [facility] mmol/L [facility] K 3.7 3.5 - 5.0 [facility] mmol/L [facility] CL 94 (L) 98 - 108 mmol/L [facility] CO2 TOTAL 29 23 - 31 mmol/L [facility] AGAP 9 2 - 16 [facility] BUN 15 7 - 23 mg/dL [facility] GLUCOSE 503 (HH) 70 - 110 mg/dL [facility] CREATININE 0.82 0.60 - 1.25 [facility] mg/dL [facility] TOTAL BILI 0.5 0.1 - 1.1 mg/dL [facility] CALCIUM 8.4 (L) 8.6 - 10.6 [facility] mg/dL [facility] T PROTEIN 6.3 6.3 - 8.2 g/dL [facility] ALBUMIN 3.6 3.5 - 5.0 g/dL [facility] ALK PHOS 144 (H) 34 - 122 U/L [facility] ALTv 13 5 - 50 U/L [facility] AST(SGOT) 17 13 - 40 U/L [facility] eGFR Calculation 102.1 mL/min/1.73m2 [facility] (Non-[facility] LABORATORY Ghanaian) eGFR Calculation 123.7 mL/min/1.73m2 [facility] () [facility] Specimen Blood - ARM, RIGHT Narrative Performed At Association of Glomerular Filtration Rate (GFR) [facility] and Staging of Kidney Disease* [...] City/State/Zipcode Phone Number [facility] CLIA: [id number] [place] [address] CBC WITH DIFF (04/21/2020 12:00 AM CUSTOMER SALES SERVICE MANAGER) [facility] nature WBC 9.25 4.20 - 10.70 [facility] 10*3/L [facility] RBC 4.62 4.26 - 5.52 [facility] 10*6/L [facility] HGB 14.7 12.2 - 16.4 [facility] g/dL HOSPITAL [facility] HCT 40.3 38.4 - 49.3 % [facility] MCV 87.2 81.7 - 95.6 fL [facility] MCH 31.8 26.1 - 32.7 pg [facility] MCHC 36.5 (H) 31.2 - 35.0 [facility] g/dL [facility] RDW-SD 38.7 38.5 - 51.6 fL [facility] RDW-CV 12.1 12.1 - 15.4 % [facility] PLT 246 150 - 328 [facility] 10*3/L [facility] MPV 10.8 9.8 - 13.0 fL [facility] NRBC/100 WBC 0.0 0.0 - 10.0 /100 [facility] WBCs [facility] NRBC x10^3 <0.01 10*3/L [facility] GRAN MAT (NEUT) % 54.3 % [facility] IMM GRAN % 0.60 % [facility] LYMPH % 31.2 % [facility] MONO % 10.9 % [facility] EOS % 2.4 % [facility] BASO % 0.6 % [facility] GRAN MAT x10^3(ANC) 5.01 1.99 - 6.95 [facility] 10*3/uL [facility]OS[facility]ITAL [facility] IMM GRAN x10^3 0.06 0.00 - 0.06 [facility] 10*3/uL [facility] LYMPH x10^3 2.89 1.09 - 3.23 [facility] 10*3/uL [facility]ITAL [facility] MONO x10^3 1.01 0.36 - 1.02 [facility] 10*3/uL [facility]ITAL [facility] EOS x10^3 0.22 0.06 - 0.53 [facility] 10*3/uL [facility]ITAL [facility] BASO x10^3 0.06 0.01 - 0.09 [facility] 10*3/uL [facility]ITAL [facility] Specimen Blood - ARM, RIGHT Performing Organization Address City/State/Zipcode Phone Number [facility] CLIA: [id number] [place] [address] LABORATORY [address] [facility] documented in this encounter Visit Diagnoses Diagnosis Suicidal ideation - Primary Hyperglycemia Other abnormal glucose documented in this encounter Administered Medications Medication Order MAR Action Action Date Dose Rate Site glipiZIDE (GLUCOTROL) tablet 10 mg Given 04/21/2020 7:48 AM CUSTOMER SALES SERVICE MANAGER 10 mg 10 mg, Oral, DAILY, First dose on Sun04/21/20 at 0900, Until Discontinued, Routine Medication Order MAR Action Action Date Dose Rate Site insulin NPH (HUMULIN N) Given 04/21/2020 12:50 AM 10 Units Abdomen-SC injection 10 Units CUSTOMER SALES SERVICE MANAGER 10 Units, Subcutaneous, ONCE, 1 dose, Sun04/21/20 at 0200, JEANE metFORMIN (GLUCOPHAGE) tablet 500 mg Given 04/21/2020 1:13 AM CUSTOMER SALES SERVICE MANAGER 500 mg 500 mg, Oral, ONCE, 1 dose, Sun04/21/20 at 0215, Routine NaCl 0.9% (NS) bolus infusion New Bag 04/21/2020 12:52 AM CUSTOMER SALES SERVICE MANAGER 1,000 mL 999 mL/hr 1,000 mL at 999 mL/hr, 1,000 mL, IV Infusion, ONCE, 1 dose, Sun04/21/20 at 0145, STAT NaCl 0.9% (NS) bolus infusion New Bag 04/21/2020 4:31 AM CUSTOMER SALES SERVICE MANAGER 1,000 mL 999 mL/hr 1,000 mL at 999 mL/hr, 1,000 mL, IV Infusion, ONCE, 1 dose, Sun04/21/20 at 0515, STAT documented in this encounter Additional Health Concerns Infection Onset Date Last Indicated Resolved Time COVID-19 Rule Out 04/20/2020 04/21/2020 04/21/2020 12: 34 AM CUSTOMER SALES SERVICE MANAGER documented as of this encounter Insurance Payer Benefit Plan / Subscriber ID Effective Phone Address T ype Group Dates SYDNI TROY [id number] [facility] [address] [place] [id number] MANAGED MEDICAID [place] documented as of this encounter
--- OUTSIDE RECORDS SUMMARY | 2020-04-27 19:38 | XMS REPORT | Summary of Care ---
:1975 Author Organization [facility] - [facility] Address [address] [place] [address] Care Team Providers Name Role Phone Pcp, Patient Does Not Have A Primary Care Provider +[id number] 0-0000 Reason for Visit Reason Comments SUICIDAL Foot Pain Diarrhea Auth/Cert Status Reason Specialty Diagnoses / Referred By Referred To Procedures Contact Contact Emergency Medicine Diagnoses OTHER [facility] Emergency Dept [address] [place] [address] Fax: Encounter Details Date Type Department Care Team Description 04/22/2020 - Emergency ADC-Emergency Gopi Cheney MD Malingernani (Primary Dx); 04/23/[address] [place] [address] Chronic mental illness [address] [facility] [address] [place] [address] [place], [place] [address] Allergies No Known Allergiesdocumented as of this encounter (statuses as of 04/23/2020) Medications Medication Sig Dispensed Refills Start Date [...] as of this encounter (statuses as of 04/23/2020) Active Problems Problem Noted Date Suicidal ideation 04/21/2020 Auditory hallucinations 04/21/2020 Schizophrenia 04/13/2016 Uncontrolled type 2 diabetes mellitus with complicatio n, with long-term 04/13/2016 current use of insulin documented as of this encounter (statuses as of 04/23/2020) Social History Tobacco Use Types Packs/Day Years Used Date Never Assessed Sex Assigned at Date Recorded Not on file COVID-19 Exposure Response Date Recorded In the last month, have you been in contact with No / Unsure 04/22/2020 7:38 PM BIBLE READER someone who was confirmed or suspected to have Coronavirus / COVID-19? documented as of this encounter Last Filed Vital Signs Vital Sign Reading Time Taken Comments Blood Pressure 162/93 04/22/2020 7:55 PM BIBLE READER Pulse 96 04/22/2020 7:55 PM BIBLE READER Temperature 36.7 C (98.1 F) 04/22/2020 7:55 PM BIBLE READER Respiratory Rate 16 04/22/2020 7:55 PM BIBLE READER Oxygen Saturation 98% 04/22/2020 7:55 PM BIBLE READER Inhaled Oxygen Concentration - - Weight 63.5 kg (140 lb) 04/22/2020 7:55 PM BIBLE READER Height 162.6 cm (5' 4") 04/22/2020 7:55 PM BIBLE READER Body Mass Index 24.03 04/22/2020 7:55 PM BIBLE READER documented in this encounter Discharge Instructions InstructionsGopi Cheney MD - 04/23/2020 RETURN FOR ANY QUESTIONS OR CONCERNS Today you were seen by Gopi Cheney Jr., MD You were seen today for Chief Complaint Patient presents with SUICIDAL Foot Pain Diarrhea Your ER diagnosis was ICD-10-CM ICD-9-CM 1. Malingering Z76.5 V65.2 NO LIFE-THREATENING FINDINGS ON TODAY'S EXAM. YOUR PRESCRIPTIONS : Check out [employer] for medication discounts Medication List ASK your [...] 1. A PHYSICIAN OF YOUR CHOICE 2. [facility], . LOCATIONS IN [facility] 3. [facility], [address] [facility], [place], [place]; [phone] OR, IF YOU WISH TO FOLLOW-UP WITHIN THE [facility], MAY TRY THESE OPTIONS (CLINIC APPOINTMENTS AVAILABLE ON MREO-WQ-RJTI BASIS): 1. SCHEDULE AN APPOINTMENT ONLINE AT WWW.[facility] 2. OR CALL THE [facility] ACCESS CENTER AT OR 3. OR CALL YOUR [facility] PHYSICIAN'S OFFICE DIRECTLY IF YOU ARE ALREADY AN ESTABLISHED [facility] PATIENT. [facility] RETURN TO WORK / SCHOOL EXCUSE Bryn Camargo WAS SEEN IN THE ER AND DISCHARGED 04/23/2020 TODAY, 6:08 AM & May return to Work / [...] ___ No school GOPI CHENEY Jr., MD [facility] EMERGENCY DEPRTMENT [address] [place] [address] [place] [address] ### The patient may have been given Narcotic pain medications during their stay in the ED that may show up on a Drug Screen. The hospital discharge paper work will identify these medications. AttachmentsThe following attachments cannot be sent through Care Everywhere. Mental Illness, When a Loved One Has a (Telugu)documented in this encounter ED Notes Altagracia Aggarwal RN - 04/22/2020 7:52 PM CSTSummary: triage CC: Patient states he is hearing voices, feet are throbbing abdominal pain. Patient has been in the ER for 2 days in a row and after sleeping all night in the ER decides he is no longer wants to hurt himself in the morning. 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 No SI or HI Relieved by: Nothing Worsened by: Nothing Associated symptoms: no abdominal pain, no chest pain, no cough, no fatigue, no fever, no headaches,no nausea, no shortness of breath, no vomiting and no wheezing Past Medical History / Immunizations Past Medical History: Diagnosis Date DM (diabetes mellitus) HTN (hypertension) Schizophrenia Past Surgical History No past surgical history [...] for dizziness, syncope, light-headedness and headaches. Psychiatric/Behavioral: Negative. Negative for agitation, behavioral problems and suicidal ideas. All other systems reviewed and are negative. Endocrine: Endocrine negative Physical Exam BP (!) 162/93 | Pulse 96 | Temp 36.7 C (98.1 F) (Oral) | Resp 16 | Ht 1.626 m (5' 4") | Wt 63.5 kg (140 lb) | SpO2 98% | BMI 24.03 kg/m Physical Exam Vitals [...] Behavior: Behavior normal. Thought Content: Thought content does not include homicidal or suicidal ideation. Thought contentdoes not include homicidal or suicidal plan. Labs No results found for this or any previous visit (from the past 24 hour(s)). Imaging No results found for this visit on 04/22/20. Orders and Treatments No orders of the defined types were placed in this encounter. No orders of the defined types were placed in this encounter. Procedures See ED Procedure Note Notes & MDM Patient was evaluated for an emergency medical condition related to SUICIDAL, Foot Pain, and Diarrhea . Differential diagnoses considered by presenting complaints but not limited to: Maligering Assessment: No SI or HI. Seeks long-term. Low Temps outside.Kept in ED Pt discharged to follow up History, physical exam findings, results of visit, differential diagnosis, medication regimens and plan of future care have been considered. Additional MDM may be found in the ED course. Differential diagnosis considered and final disposition made based on information gathered during evaluation and may not be completely ruled out or specifically listed. Vital signs were rechecked before final disposition. Diagnosis ICD-10-CM ICD-9-CM 1. Malingering Z76.5 V65.2 2. Chronic mental illness F99 300.9 Disposition & Follow Up ED Disposition ED Disposition Condition Comment Disch - Home Stable Patient's Medications START taking these medications No [...] on file Gopi Cheney Jr., MD Clinical Tier Over [facility] Emergency Department E READER documented in this encounter Miscellaneous Notes ED Nurse Note - Gabrielle Khan RN - 04/23/2020 6:18 AM CSTPt given printed and verbal discharge instructions regarding mental health illness, encouraged hydration, Prescriptions provided none Pt verbalized understanding of instructions, pt awake alert oriented, resp reg unlabored, skin w/d, color appropriate for race, moves all ext well,pt encouraged to follow up with mental health Advised to seek medical attention for new/prolonged/worsening of symptoms, Symptoms remained stable Awake, alert oriented, resp reg unlabored, skin w/d, pt leaving amb with steady gait, in no apparent distress, D Nurse Note - Gabrielle Khan RN - 04/22/2020 10:59 PM CSTPatient in lobby sleeping D Nurse Note - Gabrielle Khan RN - 04/22/2020 8:45 PM CSTPatient states he is not having hallucinations, he was "dropped off down here and is homeless and just wants a place to sleep." given resources and notified provider. Per provider patient can sleep in lobby and d/c in AM. documented in this encounter Plan of Treatment [...] Name Priority Date/Time Associated Diagnosis Comme nts NOTICE OF PRIVACY Routine 04/22/2020 7:41 PM BIBLE READER PRACTICES CONSENT/REFUSAL FOR Routine 04/22/2020 7:41 PM BIBLE READER DIAGNOSIS AND TREATMENT documented in this encounter Results Not on filedocumented in this encounter Visit Diagnoses Diagnosis Malingering - Primary Person feigning illness Chronic mental illness Unspecified nonpsychotic mental disorder documented in this encounter Insurance Payer Benefit Plan / Subscriber ID Effective Phone Address T e Group Dates SYDNI BANGURAINA [id number] 2016-[address] [place] [id number] MA[place]GED MED[place]ID [place] documented as of this encounter
[2020-04-27 19:51] LABS: Absolute Lymphocytes (CBC) 2.6 K/uL (0.7-4.9); Basophils % 1.3 % (0-1.3); Hematocrit 40.1 % (39.6-49.0); Lymphocytes % 32.1 % (15.3-44.8); MPV 8.8 fL (7.6-11.3); RBC Red Blood Cell Count 4.49 M/uL (4.33-5.43)
[2020-04-27 19:55] LABS: Protime INR 0.85
[2020-04-27 20:14] LABS: ALT/SGPT 24 U/L (12-78); AST/SGOT 10 U/L (15-37); Albumin 3.2 g/dL (3.4-5.0); Alkaline Phosphatase 128 U/L (45-117); BUN Blood Urea Nitrogen 9 mg/dL (7-18); Bicarbonate 26 mmol/L (21-32); Bilirubin Direct < 0.1 mg/dL (0-0.2); Bilirubin Total 0.2 mg/dL (0.2-1.0); Potassium 3.6 mmol/L (3.5-5.1); Protein, Total 7.2 g/dL (6.4-8.2); Sodium Level 131 mmol/L (136-145)
[2020-04-27 20:18] LABS: Glucose Level 532 mg/dL (74-106)
--- NOTE | 2020-04-27 20:19 | RAD REPORT ---
EXAM DESCRIPTION: RAD - Chest Single View - 04/27/2020 8:07 pm CLINICAL HISTORY: CHEST PAIN COMPARISON: Portable April 04, 2020 TECHNIQUE: AP portable chest image was obtained 04/27/2020 8:07 pm . FINDINGS: Lung volumes are low. No focal lung parenchymal process. Heart and vasculature are normal. No measurable pleural effusion and no pneumothorax. No acute bony abnormality seen. No acute aortic findings suspected. IMPRESSION: No acute cardiopulmonary process. No significant change from comparison study.
--- NOTE | 2020-04-27 20:29 | EDPHYS ---
Physician Documentation [facility] Name: Bryn Camargo Age: 44 yrs Sex: Male : 1975 Arrival Date: 04/27/2020 Time: 19:23 Bed 7 Private MD: ED Physician Ninfa Dutton HPI: 04/27 19:59 This 44 yrs old Male presents to ER via EMS with complaints of Psych Problem. jmm 19:59 The patient presents to the emergency department with psychosis, has experienced jmm auditory hallucinations, suicide ideation. Onset: The symptoms/episode began/occurred gradually, 1 month(s) ago. Past psychiatric history: Psychiatric medications include: abilify, depakote, invega, risperdol. This is a 44 year old male with a history of depression, anxiety, bipolar, schizophrenia, DM that presents to the ED with complaints of ongoing auditory hallucinations instructing him to kill himself. Patient does have a plan to walk onto ongoing traffic. Patient also complains of constant chest pain for the past week. Does not radiate. Patient does have some SOB. . Historical: - Allergies: 19:38 No Known Allergies; rv - Home Meds: 19:38 Depakote Oral [Active]; Risperdal Oral [Active]; Abilify oral oral [Active]; Invega rv Sustenna intramuscular intramuscular [Active]; - PMHx: 19:38 Depression; Anxiety; Schizophrenia; rv - PSHx: 19:38 None; rv - Immunization history:: Adult Immunizations unknown. - Social history:: Smoking status: Patient reports the use of cigarette tobacco products, smokes two packs cigarettes per day. ROS: 19:59 Constitutional: Negative for fever, chills, and weight loss. jmm 19:59 Cardiovascular: Positive for chest pain. 19:59 Respiratory: Positive for shortness of breath. 19:59 Psych: Positive for auditory hallucinations, suicidal ideation. 19:59 All other systems are negative. Exam: 19:59 Constitutional: This is a well developed, well nourished patient who is awake, alert, jmm and in no acute distress. Head/Face: atraumatic. Eyes: EOMI, no conjunctival erythema appreciated ENT: Moist Mucus Membranes Neck: Trachea midline, Supple Chest/axilla: Normal chest wall appearance and motion. Cardiovascular: Regular rate and rhythm. No edema appreciated Respiratory: Normal respirations, no respiratory distress appreciated Abdomen/GI: Non distended, soft Back: Normal ROM Skin: General appearance color normal MS/ Extremity: Moves all extremities, no obvious deformities appreciated, no edema noted to the lower extremities Neuro: Awake and alert, normal gait Psych: Behavior is normal, Mood is normal, Patient is cooperative and pleasant Vital Signs: 19:23 BP 118 / 72; Pulse 99; Resp 23; Temp 98.2(O); Pulse Ox 97% ; Weight 68.04 kg; Height 5 rv ft. 4 in. (162.56 cm); Pain 9/10; 19:23 Body Mass Index 25.75 (68.04 kg, 162.56 cm) rv MDM: 19:29 Patient medically screened. [facility] 20:26 Data reviewed: vital signs, nurses notes. Counseling: I had a detailed discussion with astrid the patient and/or guardian regarding: the historical points, exam findings, and any diagnostic results supporting the discharge/admit diagnosis, lab results, the need for further work-up and treatment in the hospital. ED course: I discussed the patient with Griffin whom accepted admission to Dr. Sims service. . 04/27 19:37 Order name: Acetaminophen; Complete Time: 21:47 [facility] 04/27 19:37 Order name: Basic Metabolic Panel; Complete Time: 21:47 [facility] 04/27 19:37 Order name: CBC with Diff; Complete Time: 19:59 [facility] 04/27 19:37 Order name: ETOH Level; Complete Time: 20:18 [facility] 04/27 19:37 Order name: Hepatic Function; Complete Time: 21:47 [facility] 04/27 19:37 Order name: PT-INR; Complete Time: 19:59 [facility] 04/27 19:37 Order name: Ptt, Activated; Complete Time: 19:59 [facility] 04/27 19:37 Order name: Salicylate; Complete Time: 20:33 [facility] 04/27 19:37 Order name: Urine Drug Screen; Complete Time: 21:47 [facility] 04/27 20:06 Order name: Glucose, Ancillary Testing; Complete Time: 20:07 [facility] 04/27 20:07 Order name: ABG; Complete Time: 21:47 [facility] 04/27 19:37 Order name: EKG; Complete Time: 19:38 [facility] 04/27 19:37 Order name: EKG - Nurse/Tech; Complete Time: 19:55 [facility] 04/27 19:37 Order name: IV Saline Lock; Complete Time: 19:55 [facility] 04/27 19:37 Order name: Labs collected and sent; Complete Time: 19:55 [facility] 04/27 19:51 Order name: Chest Single View XRAY; Complete Time: 20:22 [facility] 04/27 20:36 Order name: Urine Dipstick--Ancillary (enter results) tt3 04/27 20:49 Order name: Troponin (Emerg Dept Use Only); Complete Time: 21:47 EDMS 04/27 21:04 Order name: COVID-19/FLU A+B; Complete Time: 21:47 EDMS 04/27 21:51 Order name: Glucose, Ancillary Testing; Complete Time: 01:51 EDMS 04/28 01:03 Order name: Troponin I; Complete Time: 01:51 EDMS Administered Medications: 20:38 Drug: NS 0.9% 1000 ml Route: IV; Rate: 1 bolus; Site: left forearm; ea 21:34 Follow up: IV Status: Completed infusion; IV Intake: 1000ml rv 20:38 Drug: NS 0.9% 1000 ml Route: IV; Rate: 1 bolus; Site: left forearm; ea 21:34 Follow up: IV Status: Completed infusion; IV Intake: 1000ml rv 20:39 Drug: Insulin Regular Human 10 units {Co-Signature: raymond (Nicole Meyer RN).} Route: IVP; rv Site: left forearm; 21:35 Follow up: Response: Blood sugar is lowered rv Disposition: 04/28 06:59 Co-signature as Attending Physician, Ninfa Dutton MD. ma2 Disposition: 04/27/20 20:28 Hospitalization ordered by Goyo Sims for Observation. Preliminary diagnosis are Chest pain, unspecified, Hallucinations, unspecified, Suicidal ideations, Hyperglycemia, unspecified. - Bed requested for [facility] ER HOLD. - Status is Observation. ea - Condition is Stable. - Problem is new. - Symptoms are unchanged. Signatures: Dispatcher [facility] Katy Chan RN RN dw Mickail, Joel, PA PA Griffin Meyer, [employer] DES[employer]-[place] Nicole Meyer RN RN ea Alzahri, Mohammad, MD MD ma2 Donnell Jaime RN RN Nicole Meyer RN, ea Corrections: (The following items were deleted from the chart) 04/27 20:03 19:39 Influenza Screen (A \T\ B)+BA.LAB.BRZ ordered. EDNM EDMS 20:04 19:39 CORONAVIRUS+MR.LAB.BRZ ordered. EDNM EDMS 20:35 20:28 Hospitalization Ordered by Goyo Sims DO for Observation. Preliminary dw diagnosis is Chest pain, unspecified; Hallucinations, unspecified; Suicidal ideations; Hyperglycemia, unspecified. Bed requested for Telemetry/MedSurg (observation). Status is Observation. Condition is Stable. Problem is new. Symptoms are unchanged. [facility] 20:49 19:44 TROPONIN (EMERG DEPT USE ONLY)+C.LAB.BRZ ordered. [facility] EDNM 04/28 03:17 04/27 20:35 04/27/2020 20:28 Hospitalization Ordered by Goyo Sims DO for ea Observation. Preliminary diagnosis is Chest pain, unspecified; Hallucinations, unspecified; Suicidal ideations; Hyperglycemia, unspecified. Bed requested for [facility] ER HOLD. Status is Observation. Condition is Stable. Problem is new. Symptoms are unchanged. dw
--- NOTE | 2020-04-27 20:29 | ER ---
Nurse's Notes [facility] Name: Bryn Camargo Age: 44 yrs Sex: Male : 1975 Arrival Date: 04/27/2020 Time: 19:23 Bed 7 Private MD: Diagnosis: Chest pain, unspecified;Hallucinations, unspecified;Suicidal ideations;Hyperglycemia, unspecified Presentation: 04/27 19:23 Chief complaint: Patient states: PATIENT IS HEARING VOICES, TELLING HIM THAT THEY ARE rv OUT TO KILL HIM. HE IS THINKING OF JUMPING OUT IN THE ROAD, TO BE RUN OVER BY CARS. EMS states: PATIENT WALKED IN A [employer] AND WAS TELLING THE PEOPLE THAT HE IS HAVING HALLUCINATIONS. HE ALSO TOLD THE [employer] DOCTOR THAT HE IS OUT OF MEDICATION FOR TWO MONTHS NOW. PATIENT IS COMPLAINING OF CHEST PAIN TOO, GIVEN ASA 324MG PO. Coronavirus screen: Client denies travel out of the [place] in the last 14 days. Ebola Screen: No symptoms or risks identified at this time. Initial Sepsis Screen: Does the patient meet any 2 criteria? No. Patient's initial sepsis screen is negative. Does the patient have a suspected source of infection? No. Patient's initial sepsis screen is negative. Risk Assessment: Do you want to hurt yourself or someone else? Patient reports no desire to harm self or others. Onset of symptoms is unknown. 19:23 Method Of Arrival: EMS: [facility] 19:23 Acuity: FLETCHER 2 rv Triage Assessment: 19:38 General: Appears comfortable, Behavior is calm, cooperative. General: Appears unkempt. rv Pain: Complains of pain in chest. EENT: No signs and/or symptoms were reported regarding the EENT system. Neuro: Level of Consciousness is awake, alert, obeys commands, Oriented to person, place, time, situation. Cardiovascular: Patient's skin is warm and dry. Rhythm is sinus rhythm Chest pain is described as severe, Pain is 9 out of 10 on a pain scale. quality is pressure, squeezing, is located in chest wall began ONE WEEK episodes are intermittent. Respiratory: Airway is patent Respiratory effort is even, unlabored, Breath sounds are clear bilaterally. Derm: Skin is intact. Historical: - Allergies: 19:38 No Known Allergies; rv - Home Meds: 19:38 Depakote Oral [Active]; Risperdal Oral [Active]; Abilify oral oral [Active]; Invega rv Sustenna intramuscular intramuscular [Active]; - PMHx: 19:38 Depression; Anxiety; Schizophrenia; rv - PSHx: 19:38 None; rv - Immunization history:: Adult Immunizations unknown. - Social history:: Smoking status: Patient reports the use of cigarette tobacco products, smokes two packs cigarettes per day. Screenin:41 Abuse screen: Denies threats or abuse. Denies injuries from another. Nutritional rv screening: No deficits noted. Tuberculosis screening: No symptoms or risk factors identified. Fall Risk None identified. Assessment: 04/28 03:14 Reassessment: Patient and/or family updated on plan of care and expected duration. Pain ea level reassessed. Patient is alert, oriented x 3, equal unlabored respirations, skin warm/dry/pink. [facility], pt transferred to [facility]. Pt left ED ambulatory accompanied by [facility]. Psych: 04/27 19:41 Subjective: Patient's mood is sad, Hallucinations are auditory. Objective: Patient is rv cooperative, Speech is normal, Affect is appropriate. Interventions: Removed personal items and placed in bag. Patient placed in hospital gown. Searched person for dangerous items. Belonging list filled out. Suicide Risk Assessment: Sad Person Scale: Sex of patient: Male: Score 1 point. Age of patient: Score 0 point if patient falls outside of specified age parameters. Depression: Score 1 point if signs of depression are present. Previous Attempt: Score 1 point if patient has previously attempted suicide. Substance Abuse: Score 0 point if patient does not abuse alcohol or drugs. Rational Thinking: Score 1 point if patient is lacking rational thinking. Social Support: Score 1 point if social support is lacking and/or unavailable. Organized Plan: Score 0 if patient did not have an organized plan in place. Relationship: Score 1 point if patient is , , , or for a single male Chronic Sickness: Score 0 point if patient does not have a chronic illness, debilitating, or severe disorder. TOTAL POINTS: If total points are 5-6, proposed clinical action is to strongly consider hospitalization, depending upon confidence in the follow-up arrangement. Implement suicide precautions. Safety Checks: Personal items have been removed. Door is open. No visitors are present at this time. Pt denies substance abuse. Vital Signs: 19:23 BP 118 / 72; Pulse 99; Resp 23; Temp 98.2(O); Pulse Ox 97% ; Weight 68.04 kg; Height 5 rv ft. 4 in. (162.56 cm); Pain 9/10; 19:23 Body Mass Index 25.75 (68.04 kg, 162.56 cm) rv ED Course: 19:23 Patient arrived in ED. rv 19:29 Cirilo Loo PA is PHCP. jmm 19:29 Ninfa Dutton MD is Attending Physician. jmm 19:32 Triage completed. rv 19:39 Nicole Meyer, GARCIA is Primary Nurse. ea 19:40 Arm band placed on right wrist. Patient placed in the treatment room, on a stretcher, rv Patient notified of wait time. 19:40 Maintain EMS IV. Dressing intact. Good blood return noted. Site clean \T\ dry. Gauge \T\ rv site: G18 LFA. IV is patent, with fluids infusing freely. 19:42 Patient has correct armband on for positive identification. rv 20:08 Chest Single View XRAY In Process Unspecified. EDMS 20:26 Notified Nurse Practitioner and/or Physician Kitchen Assistant of a critical lab result(s), ca1 glucose 532 Notified primary nurse of. 20:27 Goyo Sims DO is Hospitalizing Provider. jmm 21:35 No provider procedures requiring assistance completed. IV is patent, with fluids rv infusing freely, Patient admitted, IV remains in place. 22:46 Contacted [facility] to initiate screening and spoke with Mansi. Stated she would pass tt3 the information on to the screeners. 22:55 Jordon from [facility] called and stated it would be around 0100 before someone could tt3 get here to screen the pt. Stated he is on his way to [place] to screen a pt and his partner is on their way to [place] to screen. 04/28 01:16 Jordon from [facility] is screening the pt at this time via iPad. tt3 01:23 Pt chart was faxed to [facility], [facility], [facility] tt3 of [facility]. 03:13 IV discontinued, intact, bleeding controlled, No redness/swelling at site. Pressure ea dressing applied. Administered Medications: 04/27 20:38 Drug: NS 0.9% 1000 ml Route: IV; Rate: 1 bolus; Site: left forearm; ea 21:34 Follow up: IV Status: Completed infusion; IV Intake: 1000ml rv 20:38 Drug: NS 0.9% 1000 ml Route: IV; Rate: 1 bolus; Site: left forearm; ea 21:34 Follow up: IV Status: Completed infusion; IV Intake: 1000ml rv 20:39 Drug: Insulin Regular Human 10 units {Co-Signature: raymond (Nicole Meyer RN).} Route: IVP; rv Site: left forearm; 21:35 Follow up: Response: Blood sugar is lowered rv Intake: 21:34 IV: 1000ml; Total: 1000ml. rv 21:34 IV: 1000ml; Total: 2000ml. rv Outcome: 20:28 Decision to Hospitalize by Provider. [facility] 21:35 Admitted to ER Hold. Please see [facility] for further documentation. rv 21:35 Condition: good 21:35 Instructed on the need for admit. 04/28 03:17 Patient left the ED. ea Signatures: Dispatcher [employer] EDMS Cirilo Loo PA PA jmm Antunez, Elena, RN RN ea Vicente, Ronaldo, RN RN rv Acob, Cheryl RN Heriberto Monge tt3 Nicole Meyer RN, ea
[2020-04-27] MEDS ORDERED: INSULIN -REGULAR HUMAN 50 UNIT/0.5 ML ML ONE (20:50)
[2020-04-27] MEDS ORDERED: NA CHLORIDE 0.9% 2,000 ML ONE (20:50)
[2020-04-27 20:56] LABS: Arterial Blood Carboxyhemoglob 8.1 % (0-1.5); Blood Gas Oxyhemoglobin 88.7 % (94-97); Blood O2 Saturation 97.5 % (92-98.5)
[2020-04-27 21:03] LABS: SARS-COV-2 RT PCR NEGATIVE (NEGATIVE)
[2020-04-27 21:05] LABS: Barbiturates NEGATIVE (NEGATIVE); Benzodiazepines NEGATIVE (NEGATIVE); Cocaine NEGATIVE (NEGATIVE); METHAMPHETAM NEGATIVE (NEGATIVE); Methadone NEGATIVE (NEGATIVE); Opiates NEGATIVE (NEGATIVE); Phencyclidine NEGATIVE (NEGATIVE); THC Cannibis NEGATIVE (NEGATIVE)
[2020-04-27 21:15] LABS: Troponin (Emerg Dept Use Only) < 0.02 ng/mL (0.0-0.045)
[2020-04-27] MEDS ORDERED: ACETAMINOPHEN 500 MG TAB PO PRN (21:31)
[2020-04-27] MEDS ORDERED: ONDANSETRON 4 MG/2 ML VIAL IV PRN (21:31)
--- NOTE | 2020-04-27 21:59 | P.HP ---
Certification for Inpatient Patient admitted to: Observation With expected LOS: <2 Midnights Patient will require the following post-hospital care: None Practitioner: I am a practitioner with admitting privileges, knowledge of patient current condition, hospital course, and medical plan of care. Services: Services provided to patient in accordance with Admission requirements found in Title 42 Section 412.3 of the Code of Federal Regulations Patient History Date of Service: 04/27/20 Primary Care Provider: none Reason for admission: Hyperglycemia, suicidal ideation, chest pain History of Present Illness: 44-year-old male with history of diabetes mellitus type 2 presents to the emergency department for medical noncompliance, hyperglycemia, chest pain, suicidal ideations, auditory hallucinations. Patient reports that he has been having chest tightness that feels Muscular for the past 1 week in addition to frequent urination, excessive thirst. Patient reports he has been off of his medications for the last couple of months, patient reports that his medications include Abilify, risperidone, Cogentin, Thorazine, metformin. Patient also reports that he is having auditory hallucinations, patient with history of bipolar and schizoaffective disorder with multiple inpatient psychiatric stays. Patient reports that he hears voices telling him to kill himself and has a plan of running in front of traffic or hanging himself. Patient reports history of suicide attempts. Patient evaluated in the emergency department, labs significant for elevated blood glucose level 532, sodium 131 CBC normal coags normal blood gases normal UDS negative, alcohol level less than 10 patient is COVID negative. ED provider wishes to admit patient to gain control of blood glucose and rule out ACS. Allergies No Known Allergies Allergy (Unverified 04/27/20 21:30) - Past Medical/Surgical History -: Bipolar disorder -: Schizoaffective disorder -: Diabetes mellitus type 2 -: Appendectomy Psychosocial/ Personal History: Patient is unemployed, lives with his mother - Family History Family History: Reviewed- Non-Contributory - Social History Smoking Status: Current every day smoker Counseled patient to stop smoking for: less than 10 minutes Smoking therapy provided: No Alcohol use: No CD- Drugs: No Caffeine use: Yes Review of Systems Cardiovascular: Chest Pain Neurological: As per HPI Physical Examination - Physical Exam General: Alert, In no apparent distress HEENT: PERRLA, Mucous membr. moist/pink Neck: Supple, 2+ carotid pulse no bruit, No LAD Respiratory: Clear to auscultation bilaterally, Normal air movement Cardiovascular: Regular rate/rhythm, Normal S1 S2 Capillary refill: <2 Seconds Gastrointestinal: Normal bowel sounds, No tenderness Musculoskeletal: No tenderness Integumentary: No rashes Neurological: Normal speech, Normal strength at 5/5 x4 extr, Normal tone, Normal affect - Studies Laboratory Data (last 24 hrs) 04/27/20 19:40: PT 10.1, INR 0.85, APTT 24.7 04/27/20 19:40: WBC 8.0, Hgb 14.1, Hct 40.1, Plt Count 238 04/27/20 19:40: Sodium 131 L, Potassium 3.6, BUN 9, Creatinine 1.07, Glucose 532 H*, Total Bilirubin 0.2, AST 10 L, ALT 24, Alkaline Phosphatase 128 H Assessment and Plan - Plan Assessment Diabetes mellitus type 2 with hyperglycemia Chest pain rule out ACS Suicidal ideation with Bipolar disorder, schizoaffective disorder with medical noncompliance Plan Diabetes mellitus type 2 with hyperglycemia: Blood sugar greatly improved after fluids and insulin. A.c. HS Accu-Cheks scale insulin therapy. Chest pain rule out ACS: Initial troponin 0, patient without any cardiac history, will repeat troponin after 6 hr. If negative patient will be medically cleared for transfer to inpatient psychiatric facility. Suicidal ideation with Bipolar disorder, schizoaffective disorder with medical noncompliance: Patient is suicidal with a plan to run out in traffic or hang himself. Patient with history of suicide attempt. Patient also having auditory hallucinations. Patient will likely need inpatient psychiatric treatment, plan for initiation of transfer after ACS is ruled out. Discharge Plan: Home Plan to discharge in: 24 Hours - Advance Directives Does patient have a Living Will: No Does patient have a Durable POA for Healthcare: No - Code Status/Comfort Care Code Status Assessed: Yes (Full code) Critical Care: No Time Spent Managing Pts Care (In Minutes): 55
[2020-04-27] MEDS ORDERED: NA CHLORIDE 0.9% 1,000 ML IV SCH (22:00)
[2020-04-27] MEDS ORDERED: NA CHLORIDE 0.9% 1,000 ML ONE (22:00)
[2020-04-27 22:39] VITALS: O2SAT 97; BMI 25.7
[2020-04-27] MEDS ORDERED: ATORVASTATIN 20 MG TAB ONE (22:43)
[2020-04-28 02:31] VITALS: BP 114/75; TEMP 98
--- NOTE | 2020-04-28 02:44 | P.DS ---
Admission Date: 04/27/20 Discharge Date: 04/28/20 Primary Care Provider: none Disposition: TRANSFR TO OTHER-PSY/CD/REHAB Comment: [facility]- Dr. Correia Discharge Condition: GOOD Reason for Admission: Hyperglycemia, suicidal ideation, chest pain Consultations: none Procedures: Chest x-ray FINDINGS: Lung volumes are low. No focal lung parenchymal process. Heart and vasculature are normal. No measurable pleural effusion and no pneumothorax. No acute bony abnormality seen. No acute aortic findings suspected. IMPRESSION: No acute cardiopulmonary process. No significant change from comparison study. Medical problem list Chest pain Bipolar and schizoaffective disorders with suicidal ideations and visual/ auditory hallucinations Diabetes mellitus type 2 Brief History of Present Illness: 44-year-old male with history of diabetes mellitus type 2 presents to the emergency department for medical noncompliance, hyperglycemia, chest pain, suicidal ideations, auditory hallucinations. Patient reports that he has been having chest tightness that feels Muscular for the past 1 week in addition to frequent urination, excessive thirst. Patient reports he has been off of his medications for the last couple of months, patient reports that his medications include Abilify, risperidone, Cogentin, Thorazine, metformin. Patient also reports that he is having auditory hallucinations, patient with history of bipolar and schizoaffective disorder with multiple inpatient psychiatric stays. Patient reports that he hears voices telling him to kill himself and has a plan of running in front of traffic or hanging himself. Patient reports history of suicide attempts. Patient evaluated in the emergency department, labs significant for elevated blood glucose level 532, sodium 131 CBC normal coags normal blood gases normal UDS negative, alcohol level less than 10 patient is COVID negative. ED provider wishes to admit patient to gain control of blood glucose and rule out ACS. Hospital Course: Patient was admitted for chest pain rule out and hyperglycemia, blood sugar came down nicely, sugars around 100 currently. Troponin was trended and negative. Patient's pain does not sound cardiac in nature, patient has been medically cleared for transfer to inpatient psychiatric facility as recommended by [facility]. Patient is stable at transfer. Vital Signs/Physical Exam: Temp Pulse Resp BP Pulse Ox 98 F 69 18 114/75 04/28/20 00:00 04/28/20 00:00 04/28/20 00:00 04/28/20 00:00 General: Alert, In no apparent distress, Oriented x3 HEENT: Atraumatic, PERRLA, EOMI Neck: Supple, JVD not distended Respiratory: Clear to auscultation bilaterally, Normal air movement Cardiovascular: Regular rate/rhythm, Normal S1 S2 Gastrointestinal: Normal bowel sounds, No tenderness Musculoskeletal: No tenderness Integumentary: No rashes Neurological: Normal speech, Normal tone, Normal affect Laboratory Data at Discharge: WBC 8.0 K/uL (4.3-10.9) 04/27/20 19:40 Hgb 14.1 g/dL (13.6-17.9) 04/27/20 19:40 Hct 40.1 % (39.6-49.0) 04/27/20 19:40 Plt Count 238 K/uL (152-406) 04/27/20 19:40 PT 10.1 SECONDS (9.5-12.5) 04/27/20 19:40 INR 0.85 04/27/20 19:40 APTT 24.7 SECONDS (24.3-36.9) 04/27/20 19:40 Sodium 131 mmol/L (136-145) L 04/27/20 19:40 Potassium 3.6 mmol/L (3.5-5.1) 04/27/20 19:40 BUN 9 mg/dL (7-18) 04/27/20 19:40 Creatinine 1.07 mg/dL (0.55-1.3) 04/27/20 19:40 Glucose 532 mg/dL (74-106) H* 04/27/20 19:40 Total Bilirubin 0.2 mg/dL (0.2-1.0) 04/27/20 19:40 AST 10 U/L (15-37) L 04/27/20 19:40 ALT 24 U/L (12-78) 04/27/20 19:40 Alkaline Phosphatase 128 U/L (45-117) H 04/27/20 19:40 Troponin I < 0.02 ng/mL (0.0-0.045) 04/28/20 00:36 Patient Discharge Instructions: Continue with inpatient psychiatric care at [facility], please follow up with Cardiology on an outpatient basis as well. Diet: ADA Followup: NONE,NONE [Primary Care Provider] - Time spent managing pt's care (in minutes): 55
[2020-04-28] MEDS ORDERED: INSULIN -REGULAR HUMAN 50 UNIT/0.5 ML ML SQ SCH (07:30)
[2020-04-28] MEDS ORDERED: ENOXAPARIN 40 MG/0.4 ML SQ SCH (09:00)
[2020-04-28] MEDS ORDERED: ASPIRIN EC 81 MG TAB PO SCH (09:00)
[2020-04-28] MEDS ORDERED: ATORVASTATIN 20 MG TAB PO SCH (21:00)
== END 2020-04-28 03:16 ==
LOC: ER 19:18 → ERHOLD 21:04
PROVIDERS: ADMIT Family Medicine; ATTEND Family Medicine
DX: R07.9 Chest pain, unspecified (principal); E11.65 Type 2 diabetes mellitus with hyperglycemia; F31.9 Bipolar disorder, unspecified; F25.9 Schizoaffective disorder, unspecified; R45.851 Suicidal ideations; Z20.822 Contact with and (suspected) exposure to COVID-19; Z91.14 Patient's other noncompliance with medication regimen; F17.210 Nicotine dependence, cigarettes, uncomplicated
CPT/HCPCS: 96361; 93005; 85025; 80048; 36415; 80320; 80329 ×2; 85610; 82947 ×2; 80076; 80307 ×8; 85730; 84484 ×2; 0240U; 71045; 82805; 96374; 99285; J7030 ×2

== ENCOUNTER 2020-09-13 11:50 | Emergency (ER) | payer MEDICAID ==
--- OUTSIDE RECORDS SUMMARY | 2020-09-13 12:11 | XMS REPORT | Continuity of Care Document ---
:1975 Author Organization [facility] t Address [address] [place] [address] Care Team Providers Name Role Phone PCP Primary Care Physician Unavailable Jg RENTERIA, Lance Attending Clinician Doctor Unassigned, Name Attending Clinician Unavailable Dwayne Magallanes MD Attending Clinician Daquan CONNELLY Attending Clinician Griffin Arce MD Attending Clinician Jyothi RENTERIA, Reinaldo Attending Clinician Rene RENTERIA, Rachael Attending Clinician Emerson RENTERIA Attending Clinician Tracy RN, T Attending Clinician Unavailable Nurse, Adult Urgent Attending Clinician Unavailable Juan Carlos ZELAYA Attending Clinician Unavailable Jeevan FRAGOSOP, F Attending Clinician Gerson DO Attending Clinician Terry Cruz MD Attending Clinician Walter CONNELLY Attending Clinician Jorge RENTERIA Attending Clinician Na LEGER, B Attending Clinician Ayan ZELAYA Attending Clinician Unavailable Rich LESTER Attending Clinician Magnus Alvarez MD Attending Clinician Barbara RENTERIA Attending Clinician Monse Martin DO Attending Clinician DO MONSE MARTIN Attending Clinician Unavailable Candelario RENTERIA Attending Clinician Curly BORRERO S Attending Clinician Morteza Celis MD Attending Clinician Dee Ferraro MD Attending Clinician Yo RENTERIA Attending Clinician Unknown Attending Clinician Unavailable Kelly CONNELLY Attending Clinician Tru Brannon MD Attending Clinician Lacho DO, R Attending Clinician Olivia CONNELLY Attending Clinician Sunny Calero MD Attending Clinician MD SUNNY CALERO Attending Clinician Unavailable Javier LEGER Attending Clinician Shoaib RENTERIA Attending Clinician Torres Heck MD Attending Clinician MD TORRES HECK Attending Clinician Unavailable Maikel RENTERIA, Suman Attending Clinician Franc Ko DO Attending Clinician Eveline Nino MD Attending Clinician David LEGER Attending Clinician Jeanette Alonso MD Attending Clinician Morteza Potts MD Attending Clinician FUAD Attending Clinician Unavailable ALAN Attending Clinician Unavailable Isidro Askew DO Attending Clinician Anderson RENTERIA Attending Clinician Gregory RENTERIA Attending Clinician ZARINA QUICK Attending Clinician Unavailable KAYLA QUINONEZ Attending Clinician Unavailable AFUWAPE Attending Clinician Unavailable STEFFANY FELDMAN M.D. Attending Clinician Unavailable KAMLESH Attending Clinician Unavailable Rose Mary GOLDMAN Attending Clinician Unavailable ERIC Attending Clinician Unavailable JA Attending Clinician Unavailable RODGER Attending Clinician Unavailable CRYSTAL Attending Clinician Unavailable RIAZ RAMOS M.D. Attending Clinician Unavailable DO MONSE MARTIN Admitting Clinician Unavailable MD SUNNY CALERO Admitting Clinician Unavailable MD TORRES HECK Admitting Clinician Unavailable AFUWAPE Admitting Clinician Unavailable STEFFANY FELDMAN M.D. Admitting Clinician Unavailable KAMLESH Admitting Clinician Unavailable Rose Mary GOLDMAN Admitting Clinician Unavailable ERIC Admitting Clinician Unavailable JA Admitting Clinician Unavailable RODGER Admitting Clinician Unavailable RCYSTAL Admitting Clinician Unavailable RIAZ RAMOS M.D., Manju Admitting Clinician Unavailable Payers Payer Name Policy Type Policy Effective Date Expiration Date Sour ce Number [place] [id number] 2016 [facility] STAR+PLUS 00:00:00 Method ist [id number] Advance Directives Directive Decision Effective Date Termination Date Comments Sour ce Yes N/A 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 Allergies, Adverse Reactions, Alerts Allergy Allergy Status Severity Reaction(s) Onset Inactive Treating Comm ents Source Name Type Date Date Clinician No Known DA Active U 2020-0 [facility] [place] 00:[facility]: e 00 [facility] No Known DA [facility]:00: s 00 No Known DA Active U 2020-1 [facility]ie 1-11 [place] 00:[facility]: e 00 [facility] No Known DA Active U 2020-0 [facility] Allergie 2-10 [place] [facility] 00:[facility]: d 00 [facility] No Known DA Active U 2020-0 [facility] Allergie 2-02 Clear s 00:00: [place] 00 [facility] No Known DA Active U 2019-1 [facility] Allergie 2-10 [place] 00:00: d 00 [facility] No Known DA Active U 2019-1 [facility] Allergie 0-27 Clear s 00:00: [place] 00 [facility] No Known DA Active U 2019-1 [facility] Allergie 0-23 Clear s 00:00: [place] 00 [facility] No Known DA Active U 2019-0 [facility] Allergie 8-03 Clear s 00:00: [place] 00 [facility] No Known DA Active U 2018-0 [facility] Allergie 9-19 Clear s 00:00: [place] 00 [facility] No Known DA Active U 2018-0 [facility] Allergie 5-30 Clear s 00:00: [place] 00 [facility] Social History Social Habit Start Date Stop Date Quantity Comments Source History of tobacco Cigarette Smoker [facility] Cigarettes smoked 2020-03-07 2020-03-07 [facility] current (pack per 00:00:00 00:00:00 [facility] ) - Reported Tobacco use and 2020-03-07 2020-03-07 Never used [facility] exposure 00:00:00 00:00:00 [facility] Alcohol intake 2020-03-07 2020-03-07 Current drinker [place] 00:00:00 00:00:00 of alcohol [facility] (finding) History [facility] 2018-03-26 2018-03-26 1 [employer] 00:00:00 00:00:00 [facility] History [facility] 2018-03-26 2018-03-26 1 [employer] [facility] 00:00:00 00:00:00 Hindu[facility] History [facility] 2018-03-26 2018-03-26 1 [employer] Non-Med 00:00:00 00:00:[address] Sex [birth year] [facility] 00:00:00 00:00:00 [facility] Smoking Status Start Date Stop Date Source Current some day smoker 2020-03-07 00:00:00 [place] [facility] Current every day smoker 2017-11-06 00:00:00 [facility] Medications Ordered Filled Start Stop Current Ordering Indication Dosage Frequency Signature Comments Components Source Medication Medication Date Date Medication? Clinician (SIG) Name Name fluphenazin 2019-04- No 12.5mg Inject [place] decanoate 0-16 10-16 12.5 mg Meth sandra (PROLIXIN) 05:32: 00:[address] 25 mg/mL 33 :00 shoulder, injection thigh, or buttocks. haloperidoL 2019-04- No 2mg Q.5D Take 1 [facility] (HALDOL) 2 0-16 10-30 tablet (2 [facility] MG tablet 00:00: 23:59 mg total) st 00 :00 by mouth 2 (two) times a day for 14 days. risperiDONE 2019-04- No .5mg QD Take 1 [facility] (RisperDAL) 0-09 10-16 tablet Metho di 0.5 MG 00:00: 23:59 (0.[address] tablet 00 :00 total) by mouth nightly for 7 days. metFORMIN 2019-04- No 500mg Q.5D Take 1 [place] (GLUCOPHAGE 0-08 10-22 tablet Metho di ) 500 mg 00:00: 23:59 ([address] tablet 00 :00 total) by mouth 2 (two) times a day with meals for 14 days. risperiDONE 2020-1 2020- No .5mg QD Take 0.5 [place] (RisperDAL) 0-08 10-09 tablets Meth sandra 1 MG tablet 00:00: 00:00 (0.[address] 00 :00 total) by mouth nightly for 14 days. metFORMIN 2019-0 2020- No 500mg Q.5D Take 1 [place] (GLUCOPHAGE 12-31- tablet Metho di ) 500 mg 00:00: 00:00 ([address] tablet 00 :00 total) by mouth 2 (two) times a day with meals for 14 days. risperiDONE 2020-0 2020- No .5mg QD Take 0.5 [place] (RisperDAL) 12-31 10- tablets Meth sandra 1 MG tablet 00:00: 00:00 (0.[address] 00 :00 total) by mouth nightly for 14 days. divalproex 2020-0 2020- No 500mg Q.5D Take 1 [facility] (Depakote 12-31 tablet Methodi ER) 500 MG 00:00: 23:59 ([address] 24 hr 00 :00 total) by tablet mouth 2 (two) times a day for 14 days. metFORMIN 2020-0 Yes 500mg 500 mg. [place] (GLUCOPHAGE 6-13 [facility] ) 500 mg 00:00: st tablet 00 glipiZIDE 2020-0 Yes 2.5mg 2.5 mg. [place] (GLUCOTROL) 6-13 [facility] 2.5 MG 24 00:00: st hr tablet 00 LITHIUM 2020-0 Yes Take by [facility] ASPARTATE 2- mouth. [facility] ORAL 01:26: st 35 lisinopriL 2020-0 Yes 5mg QD Take 1 [place] (PRINIVIL) 2- tablet (5 Meth sandra 5 mg tablet 00:00: mg total) s t 00 by mouth daily. risperiDONE 2020-0 2020- No 1mg QD Take 1 [facility] (RisperDAL) 2- 09-24 tablet (1 Me thodi 1 MG tablet 00:00: 00:00 mg total) st 00 :00 by mouth daily. metFORMIN 2018- 2020- No 500mg Take 500 [place] (GLUCOPHAGE 4-05 09-24 mg by Method i ) 500 mg 00:00: 00:[address] tablet 00 :00 lisinopril 2017-[address] [facility] [address] (PRINIVIL,Z 7-11 [facility]) 5 00:00: Medical MG tablet 00 Center insulin NPH Yes Inject 12 [place] (HumuLIN-N) 1-05 units Methodi 100 unit/mL 00:00: under the s t injection 00 skin every morning and inject 6 units every evening, insulin Yes Inject [facility] syringe-nee 1-05 under the Met hodi dle U-100 00:00: skin. st 0.5 mL 30 00 gauge x 5/16" syringe Vital Signs Vital Name Observation Time Observation Value Comments Source 02 Sat by Pulse 2020-09-03 10:05:47 97 /min Oximetry Body Mass Index 2020-09-03 10:05:47 30.6 Height 2020-09-03 10:05:47 162.56\\S\\64 Pulse Rate 2020-09-03 10:05:47 81 /min Respiratory Rate 2020-09-03 10:05:47 16 /min Temperature 2020-09-03 10:05:47 36.6\\S\\98 Weight 2020-09-03 10:05:47 28027.442\\S\\2848 Weight Measurement 2020-09-03 10:05:47 Estimated by Method Patient Respiratory 2020-09-03 10:05:47 No respiratory distress /min Respiratory 2020-09-03 09:44:16 No respiratory distress /min 02 Sat by Pulse 2020-09-03 09:44:16 97 /min Oximetry Body Mass Index 2020-09-03 09:44:16 30.6 Height 2020-09-03 09:44:16 162.56\\S\\64 Pulse Rate 2020-09-03 09:44:16 81 /min Respiratory Rate 2020-09-03 09:44:16 16 /min Temperature 2020-09-03 09:44:16 36.6\\S\\98 Weight 2020-09-03 09:44:16 54694.442\\S\\2848 Weight Measurement 2020-09-03 09:44:16 Estimated by Method Patient Respiratory 2020-09-03 09:44:15 No respiratory distress /min 02 Sat by Pulse 2020-09-03 09:44:15 97 /min Oximetry Body Mass Index 2020-09-03 09:44:15 30.6 Height 2020-09-03 09:44:15 162.56\\S\\64 Pulse Rate 2020-09-03 09:44:15 81 /min Respiratory Rate 2020-09-03 09:44:15 16 /min Temperature 2020-09-03 09:44:15 36.6\\S\\98 Weight 2020-09-03 09:44:15 43187.442\\S\\2848 Weight Measurement 2020-09-03 09:44:15 Estimated by Method Patient Respiratory 2020-09-03 09:38:36 No respiratory distress /min 02 Sat by Pulse 2020-09-03 09:38:36 97 /min Oximetry Body Mass Index 2020-09-03 09:38:36 30.6 Height 2020-09-03 09:38:36 162.56\\S\\64 Pulse Rate 2020-09-03 09:38:36 81 /min Respiratory Rate 2020-09-03 09:38:36 16 /min Temperature 2020-09-03 09:38:36 36.6\\S\\98 Weight 2020-09-03 09:38:36 05463.442\\S\\2848 Weight Measurement 2020-09-03 09:38:36 Estimated by Method Patient Respiratory 2020-09-03 09:38:05 No respiratory distress /min 02 Sat by Pulse 2020-09-03 09:38:05 97 /min Oximetry Body Mass Index 2020-09-03 09:38:05 30.6 Height 2020-09-03 09:38:05 162.56\\S\\64 Pulse Rate 2020-09-03 09:38:05 81 /min Respiratory Rate 2020-09-03 09:38:05 16 /min Temperature 2020-09-03 09:38:05 36.6\\S\\98 Weight 2020-09-03 09:38:05 74087.442\\S\\2848 Weight Measurement 2020-09-03 09:38:05 Estimated by Method Patient Respiratory 2020-09-03 09:37:35 No respiratory distress /min 02 Sat by Pulse 2020-09-03 09:37:35 97 /min Oximetry Body Mass Index 2020-09-03 09:37:35 30.6 Height 2020-09-03 09:37:35 162.56\\S\\64 Pulse Rate 2020-09-03 09:37:35 81 /min Respiratory Rate 2020-09-03 09:37:35 16 /min Temperature 2020-09-03 09:37:35 36.6\\S\\98 Weight 2020-09-03 09:37:35 26992.442\\S\\2848 Weight Measurement 2020-09-03 09:37:35 Estimated by Method Patient Respiratory 2020-09-03 09:35:32 No respiratory distress /min 02 Sat by Pulse 2020-09-03 09:35:32 97 /min Oximetry Body Mass Index 2020-09-03 09:35:32 30.6 Height 2020-09-03 09:35:32 162.56\\S\\64 Pulse Rate 2020-09-03 09:35:32 81 /min Respiratory Rate 2020-09-03 09:35:32 16 /min Temperature 2020-09-03 09:35:32 36.6\\S\\98 Weight 2020-09-03 09:35:32 21102.442\\S\\2848 Weight Measurement 2020-09-03 09:35:32 Estimated by Method Patient Respiratory 2020-09-03 06:39:04 No respiratory distress /min 02 Sat by Pulse 2020-09-03 06:39:04 98 /min Oximetry Body Mass Index 2020-09-03 06:39:04 30.6 Height 2020-09-03 06:39:04 162.56\\S\\64 Pulse Rate 2020-09-03 06:39:04 84 /min Respiratory Rate 2020-09-03 06:39:04 18 /min Temperature 2020-09-03 06:39:04 36.8\\S\\98.3 Weight 2020-09-03 06:39:04 08334.442\\S\\2848 Weight Measurement 2020-09-03 06:39:04 Estimated by Method Patient 02 Sat by Pulse 2020-09-03 05:37:41 98 /min Oximetry Body Mass Index 2020-09-03 05:37:41 30.6 Height 2020-09-03 05:37:41 162.56\\S\\64 Pulse Rate 2020-09-03 05:37:41 84 /min Respiratory Rate 2020-09-03 05:37:41 18 /min Temperature 2020-09-03 05:37:41 36.8\\S\\98.3 Weight 2020-09-03 05:37:41 27736.442\\S\\2848 Weight Measurement 2020-09-03 05:37:41 Estimated by Method Patient 02 Sat by Pulse 2020-09-03 04:30:15 98 /min Oximetry Body Mass Index 2020-09-03 04:30:15 30.6 Height 2020-09-03 04:30:15 162.56\\S\\64 Pulse Rate 2020-09-03 04:30:15 84 /min Respiratory Rate 2020-09-03 04:30:15 18 /min Temperature 2020-09-03 04:30:15 36.8\\S\\98.3 Weight 2020-09-03 04:30:15 04553.442\\S\\2848 Weight Measurement 2020-09-03 04:30:15 Estimated by Method Patient 02 Sat by Pulse 2020-09-03 04:14:28 98 /min Oximetry Body Mass Index 2020-09-03 04:14:28 30.6 Height 2020-09-03 04:14:28 162.56\\S\\64 Pulse Rate 2020-09-03 04:14:28 84 /min Respiratory Rate 2020-09-03 04:14:28 18 /min Temperature 2020-09-03 04:14:28 36.8\\S\\98.3 Weight 2020-09-03 04:14:28 07675.442\\S\\2848 Weight Measurement 2020-09-03 04:14:28 Estimated by Method Patient 02 Sat by Pulse 2020-09-03 03:33:08 98 /min Oximetry Body Mass Index 2020-09-03 03:33:08 30.6 Height 2020-09-03 03:33:08 162.56\\S\\64 Pulse Rate 2020-09-03 03:33:08 84 /min Respiratory Rate 2020-09-03 03:33:08 18 /min Temperature 2020-09-03 03:33:08 36.8\\S\\98.3 Weight 2020-09-03 03:33:08 56203.442\\S\\2848 Weight Measurement 2020-09-03 03:33:08 Estimated by Method Patient 02 Sat by Pulse 2020-09-03 03:23:58 98 /min Oximetry Body Mass Index 2020-09-03 03:23:58 30.6 Height 2020-09-03 03:23:58 162.56\\S\\64 Pulse Rate 2020-09-03 03:23:58 84 /min Respiratory Rate 2020-09-03 03:23:58 18 /min Temperature 2020-09-03 03:23:58 36.8\\S\\98.3 Weight 2020-09-03 03:23:58 21582.442\\S\\2848 Weight Measurement 2020-09-03 03:23:58 Estimated by Method Patient WEIGHT 2020-09-03 03:16:00 80.761153 kg HEIGHT 2020-09-03 03:16:00 162.56 cm Systolic blood 2020-05-05 09:04:00 141 mm[Hg] [place] [facility] pressure Diastolic blood 2020-05-05 09:04:00 71 mm[Hg] [place] [facility] pressure Heart rate 2020-05-05 09:04:00 109 /min [facility] Body temperature 2020-05-05 09:04:00 36.94 Maria Fernanda [place] [facility] Respiratory rate 2020-05-05 09:04:00 16 /min [place] [facility] Oxygen saturation in 2020-05-05 00:27:00 96 /min [facility] Arterial blood by Pulse oximetry Body height 2020-03-07 20:33:00 162.6 cm [facility] Body weight 2020-03-07 20:33:00 81.194 kg [facility] BMI 2020-03-07 20:33:00 30.73 kg/m2 [facility] Body Temperature 2019-08-25 19:39:00 98.1 [degF] [facility] Heart Rate 2019-08-25 19:39:00 93 /min [facility] Respiratory rate 2019-08-25 19:39:00 17 /min [facility] BP Systolic 2019-08-25 19:39:00 127 mm[Hg] [facility] BP Diastolic 2019-08-25 19:39:00 79 mm[Hg] [facility] Heart Rate 2019-08-25 18:14:00 100 /min [facility] Respiratory rate 2019-08-25 18:14:00 20 /min [facility] BP Systolic 2019-08-25 18:14:00 128 mm[Hg] [facility] BP Diastolic 2019-08-25 18:14:00 76 mm[Hg] [facility] BMI (Body Mass 2019-08-25 18:14:00 0.6 kg/m2 [facility] Index) Anamika Weight 2019-08-25 17:19:00 3.50 [lb_av] [facility] Body Temperature 2019-08-25 03:06:00 98.7 [degF] [facility] Heart Rate 2019-08-25 03:06:00 89 /min [facility] Respiratory rate 2019-08-25 03:06:00 18 /min [facility] BP Systolic 2019-08-25 03:06:00 127 mm[Hg] [facility] BP Diastolic 2019-08-25 03:06:00 89 mm[Hg] [facility] Heart Rate 2019-08-25 02:06:00 89 /min [facility] Respiratory rate 2019-08-25 02:06:00 18 /min [facility] BP Systolic 2019-08-25 02:06:00 127 mm[Hg] [facility] BP Diastolic 2019-08-25 02:06:00 89 mm[Hg] [facility] Body Temperature 2019-07-30 04:18:00 97.6 [degF] [facility] Heart Rate 2019-07-30 04:18:00 99 /min [facility] Respiratory rate 2019-07-30 04:18:00 18 /min [facility] BP Systolic 2019-07-30 04:18:00 128 mm[Hg] [facility] BP Diastolic 2019-07-30 04:18:00 82 mm[Hg] [facility] Heart Rate 2019-07-30 01:30:00 99 /min [facility] Respiratory rate 2019-07-30 01:30:00 18 /min [facility] BP Systolic 2019-07-30 01:30:00 128 mm[Hg] [facility] BP Diastolic 2019-07-30 01:30:00 82 mm[Hg] [facility] Weight 2019-07-29 21:08:00 205 [lb_av] [facility] BMI (Body Mass 2019-07-29 21:08:00 35.2 kg/m2 [facility] St. Index) [place] Procedures Procedure Date / Time Performing Clinician Source Performed CREATINE KINASE, TOTAL 2020-05-05 04:12:00 Gio Martin (CPK) [facility] COMPREHENSIVE METABOLIC 2020-05-05 04:12:00 Gio Martin PANEL [place] T4, FREE 2020-05-05 04:12:00 Gio Martin Ne higinio Shea THYROID STIMULATING HORMONE 2020-05-05 04:12:00 Jose Martin ALCOHOL LEVEL, BLOOD 2020-05-05 04:12:00 Gio Martin on Radha Shea SALICYLATE LEVEL 2020-05-05 04:12:00 Gio Martin ethodist Shea VALPROIC ACID LEVEL 2020-05-05 04:12:00 Gio Martin LITHIUM LEVEL 2020-05-05 04:12:00 Gio Martin ESTIMATED GFR 2020-05-05 04:12:00 Gio Martin Ne higinio Shea HC COMPLETE BLD COUNT 2020-05-05 03:57:00 Gio Martin W/AUTO DIFF [place] TROPONIN 2020-05-05 03:52:00 Gio Martin Ne higinio hSea COVID-19 QUALITATIVE PCR 2020-05-05 03:34:00 Gio Martin Monse XR CHEST 2 VW 2020-05-05 00:50:09 Gio Martin Ne nilesodist Monse ECG ED PRELIMINARY 2020-05-05 00:25:40 Gio Martin INTERPRETATION Monse ECG 12-LEAD 2020-05-05 00:22:57 Gio Martin Ne thodist Monse POC GLUCOSE 2020-03-07 22:29:00 Bill Ferraro ethodist XR CHEST 1 VW PORTABLE 2020-03-07 21:15:00 Bill Ferraro HC COMPLETE BLD COUNT 2020-03-07 20:40:00 Bill Ferraro W/AUTO DIFF COMPREHENSIVE METABOLIC 2020-03-07 20:40:00 Bill Ferraro PANEL D-DIMER 2020-03-07 20:40:00 Bill Ferraro ethodist TROPONIN 2020-03-07 20:40:00 Bill Ferraro ethodist B NATRIURETIC PEPTIDE 2020-03-07 20:40:00 Bill Ferraro CREATINE KINASE, TOTAL 2020-03-07 20:40:00 Bill Ferraro (CPK) ESTIMATED GFR 2020-03-07 20:40:00 Bill Ferraro ethodist ECG 12-LEAD 2020-03-07 20:38:40 Bill Ferraro ethodist ECG ED PRELIMINARY 2020-03-07 20:24:12 Bill Ferraro INTERPRETATION POC GLUCOSE 2020-01-23 05:09:00 Blaze Brannon Tru XR CHEST 1 VW PORTABLE 2020-01-23 01:37:18 Blaze Brannon Tru CREATINE KINASE, TOTAL 2020-01-23 00:55:00 Blaze Brannon (CPK) Tru HC COMPLETE BLD COUNT 2020-01-23 00:55:00 de García, Christopher [facility] W/AUTO DIFF Tru COMPREHENSIVE METABOLIC 2020-01-23 00:55:00 Arjun Brannonist PANEL Tru T4, FREE 2020-01-23 00:55:00 Blaze Brannon Hinduism Tru THYROID STIMULATING HORMONE 2020-01-23 00:55:00 Mikki Brannon Tru URINALYSIS SCREEN AND 2020-01-23 00:55:00 Blaze Brannon MICROSCOPY, WITH REFLEX TO Tru CULTURE ALCOHOL LEVEL, BLOOD 2020-01-23 00:55:00 Blaze Brannon Tru URINE DRUGS OF ABUSE SCREEN 2020-01-23 00:55:00 Mikki Brannon Tru SALICYLATE LEVEL 2020-01-23 00:55:00 Blaze Brannon Hinduism Tru ESTIMATED GFR 2020-01-23 00:55:00 Blaze Brannon Hinduism Tru URINE CULTURE 2020-01-23 00:55:00 Blaze Brannon Hinduism Tru ECG 12-LEAD 2020-01-23 00:52:01 Blaze Brannon Tru POC GLUCOSE 2020-01-16 05:04:00 Abdi Monk Meth odist ECG ED PRELIMINARY 2020-01-16 03:15:21 Abdi Monk M ethodist INTERPRETATION HC COMPLETE BLD COUNT 2020-01-16 03:01:00 Abdi Monk W/AUTO DIFF COMPREHENSIVE METABOLIC 2020-01-16 03:01:00 Abdi Monk Hinduism PANEL CREATINE KINASE, TOTAL 2020-01-16 03:01:00 Abdi Monk on Hinduism (CPK) THYROID STIMULATING HORMONE 2020-01-16 03:01:00 Abdi Monk T4, FREE 2020-01-16 03:01:00 Abdi Monk Meth odist ALCOHOL LEVEL, BLOOD 2020-01-16 03:01:00 Abdi Monk SALICYLATE LEVEL 2020-01-16 03:01:00 Svach, Abdi glover URINE DRUGS OF ABUSE SCREEN 2020-01-16 03:01:00 Chucky Monkmorris Garcia URINALYSIS SCREEN AND 2020-01-16 03:01:00 Chucky Monkmorris Garcia MICROSCOPY, WITH REFLEX TO CULTURE ESTIMATED GFR 2020-01-16 03:01:00 Abdi Monk Jay Meth odist URINE CULTURE 2020-01-16 03:01:00 Chucky Monkn Jose Alberto Jay Meth odist ECG 12-LEAD 2020-01-16 02:40:29 Abdi Monk Jay Landry odist POC GLUCOSE 2020-01-15 03:44:00 Bill Ferraro Jay Nunes ethodist XR CHEST 1 VW PORTABLE 2020-01-15 02:05:39 Bill Ferraro HC COMPLETE BLD COUNT 2020-01-15 01:51:00 Bill Ferraro W/AUTO DIFF COMPREHENSIVE METABOLIC 2020-01-15 01:51:00 Bill Ferraro Hinduism PANEL TROPONIN 2020-01-15 01:51:00 Bill Ferraro Jay Nunes ethodist ESTIMATED GFR 2020-01-15 01:51:00 Bill Ferraro Thompson Manju ethodist ECG 12-LEAD 2020-01-15 01:48:22 Bill Ferraro Jay Nunes ethodist ECG ED PRELIMINARY 2020-01-15 01:47:29 Bill Ferraro INTERPRETATION LITHIUM LEVEL 2020-01-01 02:15:00 Jay Calero ECG 12-LEAD 2020-01-01 02:07:43 Jay Calero HC COMPLETE BLD COUNT 2020-01-01 02:00:00 Lee Calero W/AUTO DIFF Riaz Correa COMPREHENSIVE METABOLIC 2020-01-01 02:00:00 Elva Calero THYROID STIMULATING HORMONE 2020-01-01 02:00:00 Jay Calero ALCOHOL LEVEL, BLOOD 2020-01-01 02:00:00 Jay Calero SALICYLATE LEVEL 2020-01-01 02:00:00 Jay Calero Riaz Sunny VENOUS BLOOD GAS 2020-01-01 02:00:00 Jay Calero Met belen Correa ESTIMATED GFR 2020-01-01 02:00:00 Jay Calero Meth odist Riaz Correa COVID-19 QUALITATIVE PCR 2020-01-01 02:00:00 Luisa Calero URINALYSIS SCREEN AND 2020-01-01 01:56:00 Lee Calero MICROSCOPY, WITH REFLEX TO Riaz Correa CULTURE URINE DRUGS OF ABUSE SCREEN 2020-01-01 01:56:00 Jay Calero URINE CULTURE 2020-01-01 01:56:00 Jay Calero Meth maye Correa ECG ED PRELIMINARY 2020-01-01 01:55:59 Jay Calero M ethodist INTERPRETATION Riaz Correa POC GLUCOSE 2020-01-01 01:36:00 Jay Calero ECG 12-LEAD 2019-10-10 03:12:58 Benitez Heck Hinduism Go POC GLUCOSE 2019-10-10 03:10:00 Benitez Heck Hindu[facility] Go ECG ED PRELIMINARY 2019-10-10 00:44:40 Benitez Heck Hinduism INTERPRETATION Go COVID-19 QUALITATIVE PCR 2019-10-10 00:39:00 Tyra Heck Go ALCOHOL LEVEL, BLOOD 2019-10-10 00:03:00 [facility] Go URINE DRUGS OF ABUSE SCREEN 2019-10-10 00:03:00 So Heck Hinduism Go SALICYLATE LEVEL 2019-10-10 00:03:00 Benitez Heck Hinduism Go LITHIUM LEVEL 2019-10-10 00:03:00 Benitez Heck Go ESTIMATED GFR 2019-10-10 00:03:00 Benitez Heck Go URINE CULTURE 2019-10-10 00:03:00 Benitez Heck Hinduism Go TROPONIN 2019-10-10 00:03:00 Benitez Heck Hinduism Go HC COMPLETE BLD COUNT 2019-10-10 00:03:00 Benitez Heck Hinduism W/AUTO DIFF Go COMPREHENSIVE METABOLIC 2019-10-10 00:03:00 Benitez Heck Hinduism PANEL Go T4, FREE 2019-10-10 00:03:00 Benitez Heck Hinduism Go THYROID STIMULATING HORMONE 2019-10-10 00:03:00 So Heck Hinduism Go CREATINE KINASE, TOTAL 2019-10-10 00:03:00 Benitez Heck (CPK) Go URINALYSIS SCREEN AND 2019-10-10 00:03:00 Benitez Heck MICROSCOPY, WITH REFLEX TO Go CULTURE ECG (electrocardiogram) 2019-08-25 00:00:00 [facility] ECG (electrocardiogram) 2019-07-29 00:00:00 [facility] ROUTINE VENIPUNCTURE 2019-07-29 00:00:00 [facility] COMPREHEN METABOLIC PANEL 2019-07-29 00:00:00 [facility] DRUG TEST PRSMV CHEM ANLYZR 2019-07-29 00:00:[address] [facility] DRUG SCREEN QUANTALCOHOLS 2019-07-29 00:00:00 [facility] ANALGESICS NON-OPIOID 1 OR 2019-07-29 00:00:[address] [facility] [place] URINALYSIS AUTO W/O SCOPE 2019-07-29 00:00:00 [facility] ASSAY OF CK ([facility]) 2019-07-29 00:00:00 [facility] ASSAY OF FREE THYROXINE 2019-07-29 00:00:00 [facility] ASSAY THYROID STIM HORMONE 2019-07-29 00:00:00 [facility] ASSAY TRIIODOTHYRONINE (T3) 2019-07-29 00:00:00 [facility] COMPLETE CBC W/AUTO DIFF 2019-07-29 00:00:[address] WBC [place] SYPHILIS TEST NON-TREP QUAL 2019-07-29 00:00:00 [facility] ELECTROCARDIOGRAM TRACING 2019-07-29 00:00:00 [facility] HYDRATION IV INFUSION INIT 2019-07-29 00:00:00 [facility] EMERGENCY DEPT VISIT 2019-07-29 00:00:00 [facility] Ringers lactate infusion 2019-07-29 00:00:00 [facility] Plan of Care Planned Activity Planned Date Details Comments Source Future Scheduled Test 2020-11-07 [facility] 00:[facility] [code = INFLUENZA VACCINE] Future Scheduled Test 2019-12-09 INFLUENZA VACCINE (#1) [facility] - 00:00:00 [code = INFLUENZA Medical Ce nter VACCINE (#1)] Future Scheduled Test 2017-10-28 Hemoglobin A1c [facility] - 00:00:00 measurement [facility] (procedure) [code = 34530014] Future Scheduled Test 2010-10-04 Lipid panel [facility] - 00:00:00 (procedure) [code = Medical Center 65905059] Future Scheduled Test 1993-10-04 Hepatitis C screening [facility] 00:00:00 (procedure) [code = 896234843] Future Scheduled Test 1987 COVID-19 VACCINE (1) [facility] 00:00:00 [code = COVID-19 VACCINE (1)] Future Scheduled Test 1985-10-04 DIABETIC EYE EXAM [facility] - 00:[facility]:00 [code = DIABETIC EYE Medical Center EXAM] Future Scheduled Test 1985-10-04 Urine screening for [facility] - 00:00:00 protein (procedure) [facility] [code = 016799039] Future Scheduled Test 1985-10-04 DIABETES: RETINAL EYE [facility] 00:00:00 EXAM [code = DIABETES: RETINAL EYE EXAM] Future Scheduled Test 1985-10-04 DIABETIC FOOT EXAM [facility] 00:00:00 [code = DIABETIC FOOT EXAM] Future Scheduled Test 1985-10-04 URINE MICROALBUMIN [facility] 00:00:00 [code = URINE MICROALBUMIN] Future Scheduled Test 1981-10-04 PNEUMOCOCCAL VACCINE JEAN PIERRE [facility] - 00:00:00 0-64 YRS (1 of 1 - Medical C enter PPSV23) [code = PNEUMOCOCCAL VACCINE 0-64 YRS (1 of 1 - PPSV23)] Goal Patient referral [code [facility] = [id number] ] Anamika Goal Patient referral [code [facility] = 5088550 ] Anamika Goal Patient referral [code [facility] = 8563734 ] Anamika Goal Patient referral [code [facility] = 3995388 ] Anamika Goal Patient referral [code [facility] = 6534076 ] Anamika Goal Patient referral [code [facility] = 9533984 ] Anamika Goal Patient referral [code [facility] = 6125771 ] Anamika Instructions Depression, Adult (DC) [facility] Instructions Hyperglycemia, Adult [facility] (DC) [facility] Instructions Rhabdomyolysis (DC) [facility] Instructions General (DC) [facility] Instructions OTHER [facility] Instructions Hyperglycemia, Adult [facility] (DC) [facility] Instructions Suicide Prevention [facility] Encounters Start End Encounter Admission Attending Care Care Encounter Source Date/Time Date/Time Type Type Clinicians Facility Department ID 2020-09-02 2020-09-02 Emergency [facility] [id number] 19:34:00 21:33:00 Elenita Singletary 350.1.13.10 [place] 4.2.7.2.686 [place] [id number] 084 2020-09-01 2020-09-01 Orders Doctor ARGUETA 1.2.840.114 [id number] 00:00:00 00:00:00 Only UnassSONIA lopez 350.1.13.10 [place] [facility] 4.2.7.2.686 [id number] 009 2020-08-30 2020-08-30 Emergency Jame Magallanes [place] 1.2.840. 114 [id number] 02:15:00 10:29:00 Qi Butt 350.1.13.10 4.2.7.2.686 [id number] 014 2020-08-27 2020-08-27 Emergency Kaale, TRAUMA 1.2.465.606 [id number] 00:10:00 14:13:00 [facility] 350.1.13.10 4.2.7.2.686 [id number] 014 2020-08-24 2020-08-24 Emergency Jyothi, Britt E TRAU[place] 1.2.840 .114 [id number] 01:07:00 12:45:00 Christ López MONTCALM 350.1.13.10 4.2.7.2.686 [id number] 014 2020-08-19 2020-08-19 Emergency [facility] 1.2.232.238 [id number] 21:21:00 23:55:00 [facility] 350.1.13.10 Clear 4.2.7.2.686 [place] [id number] Hospital 014 (CLC) 2020-08-08 2020-08-08 Letter KENDALL Molina 1.2.840.114 [id number] 00:00:00 00:00:00 (Out) Lauren SCOTT 350.1.13.10 [facility] 4.2.7.2.686 [id number] 019 2020-08-07 2020-08-07 Laboratory Nurse, [facility] 1.2.840.114 [id number] 09:14:16 09:29:16 Only Adult [place] 350.1.13.10 [facility] 4.2.7.2.686 [place] [id number] 2020-08-05 2020-08-05 Emergency Christ López TRAUMA 1.2.840.11 4 [id number] 03:13:00 12:47:00 Qi Butt MON[place]ALM 350.1.13.10 4.2.7.2.686 [id number] 014 2020-07-29 2020-07-29 Telephone KENDALL Rangel 1.2.840.114 [id number] 00:00:00 00:00:00 Bhavna SCOTT 350.1.13.10 [facility] 4.2.7.2.686 [id number] 019 2020-07-26 2020-07-27 Emergency Britt Roe E TRAU[place] 1.2.840 .114 [id number] 22:16:00 19:28:00 Monse Arce MON[place]AL[place] 350.1.13.10 4.2.7.2.686 [id number] 014 2020-07-25 2020-07-25 Emergency Ibikunle, TRAUMA 1.2.840.114 [id number] 21:57:00 22:57:00 Geo Lopez CENTER 350.1.13.10 4.2.7.2.686 [id number] 014 2020-07-25 2020-07-25 Emergency Gerson, TRAUMA 1.2.667.790 [id number] 05:12:00 06:32:00 [facility] 350.1.13.10 4.2.7.2.686 [id number] 014 2020-07-23 2020-07-24 Emergency Jame Magallanes TRAUMA 1.2.840. 114 [id number] 20:12:00 04:36:00 [facility] 350.1.13.10 4.2.7.2.686 [id number] 014 2020-07-15 2020-07-16 Emergency Nancy, TRAUMA 1.2.425.004 [id number] 20:44:00 02:31:00 [facility] 350.1.13.10 [place] 4.2.7.2.686 [id number] 014 2020-07-12 2020-07-13 Emergency Watson, [facility] 1.2.729.397 [id number] 22:01:00 05:51:00 [facility] 350.1.13.10 Clear 4.2.7.2.686 [place] [id number] Hospital 014 ([facility]) 2020-07-12 2020-07-12 Emergency Patel, [facility] 1.2.177.522 [id number] [id number] 18:04:00 20:02:00 [facility] 350.1.13.10 Clear 4.2.7.2.686 [place] [id number] [facility] 014 ([facility]) 2020-07-06 2020-07-06 Emergency Na, [facility] 1.2.840.114 [id number] 00:50:00 09:57:00 Jamal Singletary 350.1.13.10 [place] 4.2.7.2.686 [place] [id number] 084 2020-07-06 2020-07-06 Telephone KENDALL Botello 1.2.840.114 [id number] 00:00:00 00:00:00 Alvarez SCOTT 350.1.13.10 [facility] 4.2.7.2.686 [id number] 019 2020-07-04 2020-07-04 Emergency Kendall Watson [facility] 1.2.840.114 [id number] 15:38:00 21:23:00 [facility] 350.1.13.10 Clear 4.2.7.2.686 [place] [id number] [place] [address] ([facility]) 2020-07-04 2020-07-04 Emergency [facility] 1.2.292.997 [id number] 06:58:00 08:30:00 Health 350.1.13.10 Clear 4.2.7.2.686 [place] [id number] [place] [address] ([facility]) 2020-07-03 2020-07-03 [facility] 1.2.698.243 [id number] 1946 22:33:00 23:45:00 [facility] 350.1.13.10 Magnus Gautam 4.2.7.2.686 [facility] [id number] [address] ([facility]) 2020-06-24 2020-06-24 Emergency Yolette Jimenez TRAUMA 1.2.8 40.114 [id number] 03:02:00 16:17:00 Christ López CENTER 350.1.13.10 4.2.7.2.686 [id number] 014 2020-05-29 2020-05-30 Emergency Monse Arce TRAUMA 1.2.84 0.114 [id number] 16:49:00 01:10:00 Yolette Jimenez CENTER 350.1.13.10 4.2.7.2.686 [id number] 014 2020-05-21 2020-05-21 Emergency Nancy, [facility] 1.2.522.426 [id number] 22:02:00 23:04:00 [facility] 350.1.13.10 Terry Gautam 4.2.7.2.686 [facility] [id number] [address] ([facility]) 2020-05-05 2020-05-05 Emergency VERONICA [facility] [id number] [place] [address] 00:00:00 00:00:00 GIO 022 Gale rodriguez 2020-04-26 2020-04-26 Emergency Walter, [facility] 1.2.603.374 [id number] 18:25:00 21:35:00 [facility] 350.1.13.10 [place] 4.2.7.2.686 [place] [id number] [address]) 2020-04-23 2020-04-24 Emergency Jyothi, [facility] 1.2.572.150 [id number] 19:50:00 00:21:00 Britt Singletary 350.1.13.10 [place] 4.2.7.2.686 [place] [id number] 084 2020-04-22 2020-04-23 [facility] 1.2.916.632 [id number] [id number] 20:02:00 06:19:00 Gopi Singletary 350.1.13.10 [place] 4.2.7.2.686 [place] [id number] 084 2020-04-21 2020-04-22 [facility] 1.2.900.182 [id number] 19:22:00 06:41:00 Gopi Singletary 350.1.13.10 [place] 4.2.7.2.686 [place] [id number] 084 2020-04-20 2020-04-21 Emergency Missy Rawls [facility] 1.2.840.1 14 [id number] 23:35:00 08:33:00 Gopi Palomino 350.1.13.10 Missy Rawls 4.2.7.2.686 [place] [id number] 084 2020-03-31 2020-03-31 Emergency Vimal, [facility] 1.2.422.386 [id number] 02:51:00 05:37:00 [facility] 350.1.13.10 Clear 4.2.7.2.686 [place] [id number] Hospital 014 ([facility]) 2020-03-17 2020-03-18 Emergency Walter, [facility] 1.2.084.289 [id number] 22:59:00 03:46:00 [facility] 350.1.13.10 Clear 4.2.7.2.686 [place] [id number] Hospital 014 ([facility]) 2020-03-07 2020-03-07 Emergency RUBIN, [facility] 064 [id number] [place] 00:00:00 00:00:00 BILL Silvia6 Method i 2020-03-01 2020-03-01 Emergency Patel, [facility] 1.2.528.661 [id number] 03:49:00 05:46:00 [facility] 350.1.13.10 Clear 4.2.7.2.686 [place] [id number] Hospital 014 ([facility]) 2020-02-28 2020-02-29 Emergency Jame Ram [facility] 1.2.8 40.114 [id number] 20:26:00 01:25:00 Jame Ram [facility] 350.1.13.10 Clear 4.2.7.2.686 [place] [id number] Hospital 014 ([facility]) 2020-02-21 2020-02-22 Emergency Vimal, [facility] 1.2.733.360 [id number] 19:15:00 02:01:00 [facility] 350.1.13.10 Clear 4.2.7.2.686 [place] [id number] Hospital 014 ([facility]) 2020-02-20 2020-02-21 Emergency Unknown, Attending [facility] 1.2.8 40.114 [id number] 21:59:00 04:04:00 [facility] 350.1.13.10 Clear 4.2.7.2.686 [place] [id number] Hospital 014 ([facility]) 2020-02-11 2020-02-12 Emergency Jame Ram [place] 1.2.8 40.114 [id number] 20:17:00 14:37:00 Kendall Watson [facility] 350.1.13.10 Clear 4.2.7.2.686 [place] [id number] Hospital 014 (CLC) 2020-01-29 2020-01-30 Emergency Sam Celis [facility] 1.2.8 40.114 [id number] 23:20:00 09:15:00 Kendall Watson 350.1.13.10 Clear 4.2.7.2.686 [place] [id number] Hospital 014 ([facility]) 2020-01-24 2020-01-24 Emergency Sam Celis [facility] 1.2.8 40.114 [id number] 01:58:00 10:51:00 Pan Mendoza [facility] 350.1.13.10 Clear 4.2.7.2.686 [place] [id number] Hospital 014 (CLC) 2020-01-23 2020-01-23 Emergency DE GARCÍA, [place] [address] [id number] [place] 00:00:00 00:00:00 BLAZE 090 Me thodi 2020-01-16 2020-01-16 Emergency SVACH, [place] [address] [id number] [place] 00:00:00 00:00:00 ABDI 406 Method i 2020-01-15 2020-01-15 Emergency MARCANTEL, [place] [address] [id number] [place] 00:00:00 00:00:00 BILL 619 Method i 2020-01-07 2020-01-07 Emergency Kendall Watson [place] 1.2.840.114 [id number] 02:41:00 18:55:00 Lillie Baker [facility] 350.1.13.10 Clear 4.2.7.2.686 [place] [id number] Hospital 014 (CLC) 2020-01-01 2020-01-01 Emergency VANDER [place] [address] [id number] [place] 00:00:00 00:00:00 ROB 644 Method i RIAZ 2019-12-27 2019-12-27 Emergency Mutkarsteneki [facility] 1.2.840.114 [id number] 12:39:00 13:15:00 , [facility] 350.1.13.10 Clear 4.2.7.2.686 [place] [id number] Hospital 014 (CLC) 2019-12-04 2019-12-05 Emergency Shoaib, [facility] 1.2.936.637 [id number] 19:40:00 03:27:00 [facility] 350.1.13.10 Clear 4.2.7.2.686 [place] [id number] Hospital 014 ([facility]) 2019-12-02 2019-12-02 Emergency Walter, [facility] 1.2.656.975 [id number] 17:51:00 20:28:00 [facility] 350.1.13.10 Clear 4.2.7.2.686 [place] [id number] Hospital 014 ([facility]) 2019-10-31 2019-11-01 Emergency Watson, [facility] 1.2.061.961 [id number] 20:18:14 02:15:00 [facility] 350.1.13.10 Clear 4.2.7.2.686 [place] [id number] Hospital 014 ([facility]) 2019-10-17 2019-10-17 Emergency [place] 1.2.564.080 [id number] 14:54:43 14:57:00 Health 350.1.13.10 Clear 4.2.7.2.686 [place] [id number] Hospital 014 ([facility]) 2019-10-09 2019-10-10 Emergency [facility] [id number] [place] [address] 00:00:00 00:00:[address] [place] [address] 2019-10-09 2019-10-09 Emergency Shoaib, [facility] 1.2.454.740 [id number] 04:11:17 07:13:00 [facility] 350.1.13.10 Clear 4.2.7.2.686 [place] [id number] Hospital 014 ([facility]) 2019-08-25 2019-08-25 Departed ROD HEWITT [id number] [place] 17:25:00 19:40:[address] Room [facility] 2019-08-25 2019-08-25 Departed ROD HEWITT [id number] [place] 01:55:00 03:06:[address] Room [facility] e 2019-07-29 2019-07-30 Depart ROD HEWITT [id number] [place] 20:41:00 04:20:[address] Room Anamika armas 2019-07-24 2019-07-25 Emergency Morrical, [place] 1.2.840.114 [id number] 17:52:29 00:33:00 Edmundo O CENTER 350.1.13.10 4.2.7.2.686 [id number] 014 2019-07-23 2019-07-24 Emergency Banipal TRAU[place] 1.2.974.308 [id number] 23:51:49 03:50:00 Morrical, CENTER 350.1.13.10 [place] 4.2.7.2.686 [id number] 014 2019-07-18 2019-07-19 Emergency Nino, TRAUMA 1.2.840.114 [id number] 22:53:16 02:38:00 Laura Mosquera CENTER 350.1.13.10 4.2.7.2.686 [id number] 014 2019-07-10 2019-07-11 Emergency Vincent, Shinta TRAUMA 1.2.840. 114 [id number] 17:30:12 07:56:00 Sloane Alonso CENTER 350.1. 13.10 4.2.7.2.686 [id number] 014 2019-07-10 2019-07-10 Emergency Gerson, TRAUMA 1.2.024.110 [id number] 1974 06:04:43 06:48:00 Estefani CENTER 350.1.13.10 4.2.7.2.686 [id number] 014 2019-06-21 2019-06-21 Emergency Laura Nino TRAU[place] 1.2 .840.114 [id number] 02:54:23 11:00:00 Eleazar Potts CENTER 350.1.13.10 4.2.7.2.686 [id number] 014 2019-06-15 2019-06-16 Emergency REICHL, [facility] [id number] [place] [address] 00:00:00 00:00:00 SIMAFILEMON [facility] 2019-05-31 2019-05-31 Emergency DE GARCÍA, [facility] 064 [id number] [place] 00:00:00 00:00:00 BLAZE cageodi 2019-05-29 2019-05-30 Emergency ALAN, [facility] 064 [id number] [place] 00:00:00 00:00:00 JUANI 957 Method i 2019-05-25 2019-05-25 Emergency Willy Askew [facility] 1.2.84 0.114 [id number] 01:16:44 12:13:00 Seth Barron [facility] 350.1.13.10 Clear 4.2.7.2.686 [place] [id number] Hospital 014 (CLC) 2019-05-11 2019-05-11 Emergency Olivia, [facility] 1.2.840.114 [id number] 17:44:49 23:20:00 [facility] 350.1.13.10 Clear 4.2.7.2.686 [place] [id number] Hospital 014 ([facility]) 2019-01-03 2019-01-03 Emergency [facility] [id number] [place] 21:49:56 21:49:56 Health 2018-11-01 2018-11-[address] [facility] 1.2.840.114 [id number] [facility] 14:56:39 23:59:00 Encounter Dorita GARCIAS 350.1.13.10 MEDICAL 4.2.7.2.686 [place] [id number] 2017-10-28 2017-10-28 Emergency [facility] [id number] [place] 08:41:18 08:41:18 Health 2017-10-20 2017-10-20 Emergency [facility] [id number] [place] 08:09:00 08:09:00 Health 2017-10-10 2017-10-10 Emergency [facility] [id number] [place] 01:05:00 01:05:00 Health 2017-09-27 2017-09-27 Emergency [facility] [id number] [place] 21:47:00 21:47:00 Health 2017-09-26 2017-09-26 Emergency [facility] [id number] [place] 22:17:00 22:17:00 Health 2017-09-24 2017-09-24 Outpatient [facility] [id number] [facility] 10:46:12 10:46:12 2017-09-21 2017-09-21 Emergency [facility] [id number] [place] 23:01:00 23:01:00 [facility] 2017-09-20 2017-09-20 Emergency [facility] [id number] [place] 21:20:00 21:20:00 [facility] 2017-09-18 2017-09-18 Emergency [facility] [id number] [place] 03:14:00 03:14:00 [facility] 2017-09-13 2017-09-13 Outpatient [facility] [id number] [facility] 09:45:02 09:45:02 2017-09-13 2017-09-13 Emergency [facility] [id number] [place] 00:01:00 00:01:00 [facility] 2017-09-09 2017-09-09 Emergency [facility] [id number] [place] 22:15:00 22:15:00 [facility] 2017-08-22 2017-08-22 Outpatient [facility] [id number] [place] 00:00:00 00:00:00 [facility] 2017-08-20 2017-08-20 Emergency [facility] [id number] [place] 08:25:08 08:25:08 [facility] 2017-08-18 2017-08-18 Emergency [facility] [id number] [place] 00:11:00 00:11:00 [facility] 2017-08-16 2017-08-16 Emergency [facility] [id number] [place] 19:30:00 19:30:00 [facility] 2017-07-17 2017-07-17 Emergency E AFUWAPE, [facility] [id number] 20:09:00 20:09:00 [facility] 2017-06-29 2017-06-29 Emergency [facility] [id number] [place] 00:07:13 00:07:13 [facility] 2017-06-05 2017-06-05 Outpatient [facility] [id number] [place] 00:00:00 00:00:00 [facility] 2017-06-01 2017-06-01 Emergency [facility] [id number] [place] 15:16:18 15:16:18 [facility] 2017-05-18 2017-05-18 Outpatient [facility] [id number] [place] 00:00:00 00:00:00 [facility] 2017-05-07 2017-05-07 Emergency [facility] [id number] [place] 22:29:15 22:29:15 [facility] 2017-04-14 2017-04-14 Emergency E AFUWAPE, [facility] MED [id number] 15:50:00 15:50:00 [facility] 2017-03-26 2017-03-26 Emergency E KAMLESH, [facility] MED [id number] [address] 13:48:00 13:48:00 [facility] 2017-03-25 2017-03-25 Emergency E SUSI, [facility] [id number] 00:06:00 00:06:00 JUANI [facility] 2017-03-20 2017-03-20 Emergency E ERIC, [facility] [id number] [address] 12:17:00 12:17:00 NATALIYA [facility] 2017-03-01 2017-03-01 Emergency E JA LISBET [facility] [id number] 19:18:00 19:18:00 [facility] 2017-02-28 2017-02-28 Emergency E RAMANA SOARES [facility] [id number] 21:18:00 21:18:00 [facility] 2017-02-27 2017-02-27 Emergency E CYRUSBRITTNEY [facility] [id number] 22:19:00 22:19:00 [facility]ARNH[facility] 2017-02-23 2017-02-23 Emergency [facility] [id number] [place] 18:07:28 18:07:28 Health 2017-02-22 2017-02-22 Emergency E JA LISBET [facility] MED [id number] 08:45:00 08:45:00 [facility] 2017-02-15 2017-02-15 Emergency C JAMIE, [facility] [id number] [address] 19:57:00 19:57:00 [facility] 2017-01-22 2017-01-22 Emergency [facility] [id number] [place] 06:44:35 06:44:35 Health 2017-01-18 2017-01-18 Emergency [facility] [id number] [place] 02:07:00 02:07:00 Health 2016-08-24 2016-08-24 Emergency [facility] [id number] [place] 13:58:00 13:58:00 Health Results Test Description Test Time Test Comments Results Result Comments Source GLUBED 2020-09-04 15:30:00 Test Item Value Reference Range Interpretation Comme nts GLUBED (test code = GLUBED) 160 mg/dL 74-106 H Performed by certified decay control operator at [facility] [id number] 11:24:00 Test Item Value Reference Range Interpretation Comments GLUBED (test code = 182 mg/dL 74-106 H Performe d by certified GLUBED) decay control operator at [facility] [id number] 06:30:00 Test Item Value Reference Range Interpretation Comments GLUBED (test code 325 mg/dL 74-106 H Performed by certified = GLUBED) [facility] COVID 19 INHOUSE [id number] 22:11:00 Test Item Value Reference Range Interpretation Comments COVID 19 INHOUSE AG (test code = NEGATIVE NEGATIVE [id number]) BASIC METABOLIC [id number] 21:07:00 Test Item Value Reference Range Interpretation Comments SODIUM (test code = 136 mmol/L 136-145 N NA) POTASSIUM (test code 3.6 mmol/L 3.5-5.1 N = K) CHLORIDE (test code 105.0 mmol/L 98-107 N = CL) CARBON DIOXIDE (test 27.0 mmol/L 21-32 N code = CO2) ANION GAP (test code 7.6 10-20 L = GAP) GLUCOSE (test code = 264 mg/dL 74-106 H GLU) BLOOD UREA NITROGEN 9 mg/dL 7-18 N (test code = BUN) GLOMERULAR > 60 mL/min See_Comment Estimated GFR b y FILTRATION RATE using Modifi ed MDRD (test code = GFR) formula.Ch ronic kidney disease is defined as eith er kidney damageor GFR <60 mL/min/1.73 m2 for >3 months. [Automated mess age] The system [employer] generated this result transmitted ref erence range: >=60. Th e reference range was not used to int erpret this result as normal/abnormal . CREATININE (test 0.80 mg/dL 0.7-1.3 N code = CREAT) BUN/CREATININE RATIO 11.5 10-20 N (test code = BUN/CREA) CALCIUM (test code = 9.6 mg/dL 8.5-10.1 N CA) HEPATIC FUNCTION [id number] 21:07:00 Test Item Value Reference Range Interpretation Comments TOTAL PROTEIN (test 6.7 gram/dL 6.4-8.2 N code = PROT) ALBUMIN (test code = 3.5 g/dL 3.4-5.0 N ALB) GLOBULIN (test code = 3.2 gram/dL 2.7-4.2 N GLOB) ALBUMIN/GLOBULIN RATIO 1.1 0.75-1.50 N (test code = A/G) BILIRUBIN TOTAL (test 0.30 mg/dL 0.0-1.0 N code = BILT) BILIRUBIN DIRECT (test 0.10 mg/dL 0.0-0.20 N code = BILD) SGOT/AST (test code = 308 IUnit/L 15-37 H AST) SGPT/ALT (test code = 576 IUnit/L 12-78 H ALT) ALKALINE PHOSPHATASE 122 IUnit/L 45-117 H Note change in TOTAL (test code = reference range due ALKP) to change in reagent. [id number] 21:07:00 Test Item Value Reference Range Interpretation Comments ALCOHOL (test code = 4 mg/dL 0.0-3.0 H ------- INTERPRET ALC) HALLE DATA NOTE: POSITIVE SCREEN ING RESULTS SHOULD BE CONSI DERED PRESUMPTIVE.WHE N COLLECTED FOR MEDICAL PUR POSES ONLY. SPECIMEN WILL NOTBE COLLECTED BY AIN OF CUSTODY.IF A CO NFIRMATION OF POSITIVE RES ULTS IS DESIRED, ACONFI RMATION TEST MUST BE RE QUESTED BY THE PHYSICIAN Morteza T ANADDITIONAL CH ARGE TO THE PATIENT. [id number] 21:07:00 Test Item Value Reference Range Interpretation Comments ACETAMINOPHEN (test code = ACET) < 0.2 mg/dL 1.0-3.0 L [id number] 21:07:00 Test Item Value Reference Range Interpretation Comments SALICYLATE (test code = DAVE) < 3.0 mg/dL 2.8-20.0 N CBC W/O [id number] 20:34:00 Test Item Value Reference Range Interpretation Comments WHITE BLOOD CELL (test code = 6.4 K/mm3 4.5-12.5 N WBC) RED BLOOD CELL (test code = 4.60 mill/mm3 4.0-5.8 N RBC) HEMOGLOBIN (test code = HGB) 14.4 gram/dL 13.0-17.5 N HEMATOCRIT (test code = HCT) 42.9 % 42.0-52.0 N MEAN CELL VOLUME (test code = 93.3 fL 80-98 N MCV) MEAN CELL HGB (test code = MCH) 31.3 picogram 27.0-33.0 N MEAN CELL HGB CONCETRATION 33.6 gram/dL 33.0-36.0 N (test code = MCHC) RED CELL DISTRIBUTION WIDTH 13.2 % 11.6-16.2 N (test code = RDW) PLATELET COUNT (test code = 267 K/mm3 150-450 N PLT) MEAN PLATELET VOLUME (test code 9.7 fL 6.7-11.0 N = MPV) URINALYSIS [id number] 20:11:00 Test Item Value Reference Range Interpretation Comments UA COLOR (test code = COLU) YELLOW YELLOW UA APPEARANCE (test code = CLEAR CLEAR APPU) UA GLUCOSE DIPSTICK (test >1000 (4+) mg/dL NEGATIVE code = DGLUU) UA BILIRUBIN DIPSTICK (test NEGATIVE mg/dL NEGATIVE code = BILU) UA KETONE DIPSTICK (test NEGATIVE mg/dL NEGATIVE code = KETU) UA SPECIFIC GRAVITY (test 1.024 1.001-1.035 code = SGU) UA BLOOD DIPSTICK (test code Negative mg/dL NEGATIVE = GERSON) UA PH DIPSTICK (test code = 5.5 5.0-8.0 MITCHEL) UA PROTEIN DIPSTICK (test NEGATIVE mg/dL NEGATIVE code = PROU) UA UROBILINIOGEN DIPSTICK Normal mg/dL NEGATIVE (test code = URO) UA NITRITE DIPSTICK (test NEGATIVE NEGATIVE code = KAL) UA LEUKOCYTE ESTERASE W NEGATIVE Janie/uL NEGATIVE REFLEX (test code = LEUUR) UA WBC (test code = WBCU) 0-5 per HPF 0-5 UA RBC (test code = RBCU) 0-2 #/HPF 0-5 UA EPITHELIAL CELLS (test FEW per HPF FEW code = EPIU) UA BACTERIA (test code = NONE SEEN #/HPF NONE BACU) UA MUCUS (test code = MUCU) FEW #/LPF FEW Urine Source? Clean CatchDRUGS OF ABUSE SCREEN [id number] 20:11:00 Test Item Value Reference Range Interpretation Comments URN COCAINE (test code = NEGATIVE See_Comment [A utomated message] COCAURN) The system [employer] generated this result transmitted ref erence range: <300 ng/ mL. The reference r blaise was not used to interpret this result as normal/abnor mal. URN CANNABINOIDS (test POSITIVE See_Comment [Aut omated message] code = CANNABURN) The system which generated this result transmitted ref erence range: <50 ng/m L. The reference range was not used to int erpret this result as normal/abnormal . URN AMPHETAMINE (test POSITIVE See_Comment [Auto mated message] code = AMPHETURN) The system which generated this result transmitted ref erence range: <1000 ng /mL. The reference r blaise was not used to interpret this result as normal/abnor mal. URN BARBITURATE (test NEGATIVE See_Comment [Auto mated message] code = BARBITURN) The system which generated this result transmitted ref erence range: <200 ng/ mL. The reference r blaise was not used to interpret this result as normal/abnor mal. URN BENZODIAZEPINE (test NEGATIVE See_Comment [A utomated message] code = BENZOURN) The system which generated this result transmitted ref erence range: <200 ng/ mL. The reference r blaise was not used to interpret this result as normal/abnor mal. URN OPIATES (test code = NEGATIVE See_Comment [A utomated message] OPIATURN) The system [employer] generated this result transmitted ref erence range: <300 ng/ mL. The reference r blaise was not used to interpret this result as normal/abnor mal. URN PHENCYCLIDINE (PCP) NEGATIVE See_Comment [Au tomated message] (test code = PHENCURN) The s ystem which generated this result transmitted ref erence range: <25 ng/m L. The reference range was not used to int erpret this result as normal/abnormal . URN METHADONE (test code NEGATIVE See_Comment [A utomated message] = METHAURN) The system [employer] generated this result transmitted ref erence range: <300 ng/ mL. The reference r blaise was not used to interpret this result as normal/abnor mal. Urine Source? Clean CatchURINALYSIS [id number] 19:43:00 Test Item Value Reference Range Interpretation Comments UA COLOR (test code = COLU) YELLOW YELLOW UA APPEARANCE (test code = CLEAR CLEAR APPU) UA GLUCOSE DIPSTICK (test >1000 (4+) mg/dL NEGATIVE code = DGLUU) UA BILIRUBIN DIPSTICK (test NEGATIVE mg/dL NEGATIVE code = BILU) UA KETONE DIPSTICK (test NEGATIVE mg/dL NEGATIVE code = KETU) UA SPECIFIC GRAVITY (test 1.024 1.001-1.035 code = SGU) UA BLOOD DIPSTICK (test code Negative mg/dL NEGATIVE = GERSON) UA PH DIPSTICK (test code = 5.5 5.0-8.0 MITCHEL) UA PROTEIN DIPSTICK (test NEGATIVE mg/dL NEGATIVE code = PROU) UA UROBILINIOGEN DIPSTICK Normal mg/dL NEGATIVE (test code = URO) UA NITRITE DIPSTICK (test NEGATIVE NEGATIVE code = KAL) UA LEUKOCYTE ESTERASE W NEGATIVE Janie/uL NEGATIVE REFLEX (test code = LEUUR) UA WBC (test code = WBCU) 0-5 per HPF 0-5 UA RBC (test code = RBCU) 0-2 #/HPF 0-5 UA EPITHELIAL CELLS (test FEW per HPF FEW code = EPIU) UA BACTERIA (test code = NONE SEEN #/HPF NONE BACU) UA MUCUS (test code = MUCU) FEW #/LPF FEW Urine Source? Clean CatchDRUGS OF ABUSE SCREEN [id number] 19:43:00 Test Item Value Reference Range Interpretation Comments URN COCAINE (test code = See_Comment [A utomated message] COCAURN) The system [employer] generated this result transmitted ref erence range: <300 ng/ mL. The reference range was not used to int erpret this result as normal/abnormal . URN CANNABINOIDS (test See_Comment [Aut omated message] code = CANNABURN) The system which generated this result transmitted ref erence range: <50 ng/m L. The reference range was not used to int erpret this result as normal/abnormal . URN AMPHETAMINE (test code See_Comment [Automated message] = AMPHETURN) The system [employer] generated this result transmitted ref erence range: <1000 ng /mL. The reference r blaise was not used to interpret this result as normal/abnor mal. URN BARBITURATE (test code See_Comment [Automated message] = BARBITURN) The system [employer] generated this result transmitted ref erence range: <200 ng/ mL. The reference range was not used to int erpret this result as normal/abnormal . URN BENZODIAZEPINE (test See_Comment [A utomated message] code = BENZOURN) The system which generated this result transmitted ref erence range: <200 ng/ mL. The reference range was not used to int erpret this result as normal/abnormal . URN OPIATES (test code = See_Comment [A utomated message] OPIATURN) The system [employer] generated this result transmitted ref erence range: <300 ng/ mL. The reference range was not used to int erpret this result as normal/abnormal . URN PHENCYCLIDINE (PCP) See_Comment [Au tomated message] (test code = PHENCURN) The s ystem which generated this result transmitted ref erence range: <25 ng/m L. The reference range was not used to int erpret this result as normal/abnormal . URN METHADONE (test code = See_Comment [Automated message] METHAURN) The system [employer] generated this result transmitted ref erence range: <300 ng/ mL. The reference range was not used to int erpret this result as normal/abnormal . Urine Source? Clean CatchDRUGS OF ABUSE SCREEN [id number] 19:42:00 Test Item Value Reference Range Interpretation Comments URN COCAINE (test code = See_Comment [A utomated message] COCAURN) The system [employer] generated this result transmitted ref erence range: <300 ng/ mL. The reference range was not used to int erpret this result as normal/abnormal . URN CANNABINOIDS (test See_Comment [Aut omated message] code = CANNABURN) The system which generated this result transmitted ref erence range: <50 ng/m L. The reference range was not used to int erpret this result as normal/abnormal . URN AMPHETAMINE (test code See_Comment [Automated message] = AMPHETURN) The system [employer] generated this result transmitted ref erence range: <1000 ng /mL. The reference r blaise was not used to interpret this result as normal/abnor mal. URN BARBITURATE (test code See_Comment [Automated message] = BARBITURN) The system [employer] generated this result transmitted ref erence range: <200 ng/ mL. The reference range was not used to int erpret this result as normal/abnormal . URN BENZODIAZEPINE (test See_Comment [A utomated message] code = BENZOURN) The system which generated this result transmitted ref erence range: <200 ng/ mL. The reference range was not used to int erpret this result as normal/abnormal . URN OPIATES (test code = See_Comment [A utomated message] OPIATURN) The system [employer] generated this result transmitted ref erence range: <300 ng/ mL. The reference range was not used to int erpret this result as normal/abnormal . URN PHENCYCLIDINE (PCP) See_Comment [Au tomated message] (test code = PHENCURN) The s ystem which generated this result transmitted ref erence range: <25 ng/m L. The reference range was not used to int erpret this result as normal/abnormal . URN METHADONE (test code = See_Comment [Automated message] METHAURN) The system [employer] generated this result transmitted ref erence range: <300 ng/ mL. The reference range was not used to int erpret this result as normal/abnormal . Urine Source? Clean CatchURINALYSIS [id number] 19:42:00 Test Item Value Reference Range Interpretation Comments UA COLOR (test code = COLU) YELLOW YELLOW UA APPEARANCE (test code = CLEAR CLEAR APPU) UA GLUCOSE DIPSTICK (test >1000 (4+) mg/dL NEGATIVE code = DGLUU) UA BILIRUBIN DIPSTICK (test NEGATIVE mg/dL NEGATIVE code = BILU) UA KETONE DIPSTICK (test NEGATIVE mg/dL NEGATIVE code = KETU) UA SPECIFIC GRAVITY (test 1.024 1.001-1.035 code = SGU) UA BLOOD DIPSTICK (test code Negative mg/dL NEGATIVE = GERSON) UA PH DIPSTICK (test code = 5.5 5.0-8.0 MITCHEL) UA PROTEIN DIPSTICK (test NEGATIVE mg/dL NEGATIVE code = PROU) UA UROBILINIOGEN DIPSTICK Normal [...] per HPF NONE BACU) Urine Source? Clean [id number] 09:10:00 Test Item Value Reference Range Interpretation Comments HGBA1C% (test code = HGBA1C%) 12.6 %A1C 4.8-6.0 H ESTIMATED AVERAGE GLUCOSE (test 315 MG/DL code = EAG) BASIC METABOLIC [id number] 08:58:00 Test Item Value Reference Range Interpretation Comments SODIUM (test code = NA) 132 mmol/l 134.0-147.0 L POTASSIUM (test code = K) 3.8 mmol/L 3.6-5.2 N CHLORIDE (test code = CL) 96 mmol/l 98.0-107.0 L CARBON DIOXIDE (test code = CO2) 28.3 mmol/l 21.0-33.0 N ANION GAP (test code = GAP) 11.5 0-20 N GLUCOSE (test code = GLU) 267 mg/dl 70.0-110.0 H BLOOD UREA NITROGEN (test code = 11 mg/dl 7.0-18.0 N BUN) CREATININE (test code = CREAT) 0.78 mg/dL 0.60-1.30 N GFR NON BLACK (test code = 115 mL/min 95-105 H GFRNONBLACK) GFR BLACK (test code = GFRBLACK) 139 mL/min 115-127 H CALCIUM (test code = CA) 8.9 mg/dl 8.0-10.5 N [id number] 07:11:00 Test Item Value Reference Range Interpretation Comments GLUBED (test code = GLUBED) 361 mg/dL 70-110 H UR OSMOLALITY [id number] 04:54:00 Test Item Value Reference Range Interpretation Comments UR OSMOLALITY RANDOM (test code = 703 MOS/KG 300-1000 N OSMOU) OSMOLALITY [id number] 13:20:00 Test Item Value Reference Range Interpretation Comments OSMOLALITY SERUM (test code = 293 MOS/KG 275-295 N OSMO) [id number] 11:52:00 Test Item Value Reference Range Interpretation Comments GLUBED (test code = GLUBED) 359 mg/dL 70-110 H [id number] 08:39:00 Test Item Value Reference Range Interpretation Comments GLUBED (test code = GLUBED) 377 mg/dL 70-110 H [id number] 19:47:00 Test Item Value Reference Range Interpretation Comments GLUBED (test code = GLUBED) 305 mg/dL 70-110 H [id number] 17:19:00 Test Item Value Reference Range Interpretation Comments SODIUM (test code = NA) 128 mmol/l 134.0-147.0 L [id number] 17:06:00 Test Item Value Reference Range Interpretation Comments GLUBED (test code = GLUBED) 409 mg/dL 70-110 H [id number] 14:08:00 Test Item Value Reference Range Interpretation Comments GLUBED (test code = GLUBED) 339 mg/dL 70-110 H VALPROIC ACID (DEPAKENE)2020-05-19 13:26:00 Test Item Value Reference Range Interpretation Comments VALPROIC ACID <3.0 mcg/dL 50-100 L The physicia n must (DEPAKENE) (test determine t he code = VALP) appropriate therapeutic range for each patient. COVID 19 Asymptomatic IH [id number] 11:40:00 Test Item Value Reference Range Interpretation Comments COVID 19 NEGATIVE NEGATIVE Negative result s should be Asymptomatic IH AG treated a s presumptive and (test code = ifinconsistent with COVNONPUIAG) clinical signs and symptoms, or ne cessaryfor patient managem ent, should be tested with an alternativemole cular assay. Negative results do not preclude GOGX-WjO-1bkyno tion and should not be u sed as the sole basis forp atient management deci sions. Negative result s should beconsidered in the context of a pa tient's recent exposure s,history, presence of cli nical signs and symptoms consistentwith COVID-19. [id number] 11:36:00 Test Item Value Reference Range Interpretation Comments SODIUM (test code = NA) 128 mmol/l 134.0-147.0 L [id number] 03:48:00 Test Item Value Reference Range Interpretation Comments GLUBED (test code = GLUBED) 159 mg/dL 70-110 H [id number] 02:43:00 Test Item Value Reference Range Interpretation Comments GLUBED (test code = GLUBED) 326 mg/dL 70-110 H BASIC METABOLIC [id number] 01:21:00 Test Item Value Reference Range Interpretation Comments SODIUM (test code = NA) 125 mmol/l 134.0-147.0 L POTASSIUM (test code = K) 3.7 mmol/L 3.6-5.2 N CHLORIDE (test code = CL) 92 mmol/l 98.0-107.0 L CARBON DIOXIDE (test code = CO2) 21.9 mmol/l 21.0-33.0 N ANION GAP (test code = GAP) 15.8 0-20 N GLUCOSE (test code = GLU) 477 mg/dl 70.0-110.0 HH BLOOD UREA NITROGEN (test code = 11 mg/dl 7.0-18.0 N BUN) CREATININE (test code = CREAT) 0.95 mg/dL 0.60-1.30 N GFR NON BLACK (test code = 91 mL/min 95-105 L GFRNONBLACK) GFR BLACK (test code = GFRBLACK) 110 mL/min 115-127 L CALCIUM (test code = CA) 9.0 mg/dl 8.0-10.5 N Specimen comments: Clean CatchHEPATIC FUNCTION PANEL [id number] 01:21:00 Test Item Value Reference Range Interpretation Comments TOTAL PROTEIN (test code = PROT) 7.3 GM/DL 6.0-8.1 N ALBUMIN (test code = ALB) 3.3 gm/dL 3.2-4.7 N BILIRUBIN TOTAL (test code = 0.2 mg/dl 0.0-1.0 N BILT) BILIRUBIN DIRECT (test code = 0.1 mg/dl 0.0-0.3 N BILD) SGOT/AST (test code = AST) 8 Units/L 15-37 L SGPT/ALT (test code = ALT) 17 Units/L 12.0-78.0 N ALKALINE PHOSPHATASE TOTAL (test 120 Units/L 50.0-136.0 N code = ALKP) Specimen comments: Clean CatchCREATINE KINASE (CK)2020-05-19 01:21:00 Test Item Value Reference Range Interpretation Comments CREATINE KINASE (CK) (test code = 118 Units/L 35-232 N CK) Specimen comments: Clean [id number] 01:21:00 Test Item Value Reference Range Interpretation Comments ACETAMINOPHEN (test <2.0 mcg/ml 10.0-30.0 L Result i s in code = ACET) Microgram per milliliter. Specimen comments: Clean [id number] 01:21:00 Test Item Value Reference Range Interpretation Comments SALICYLATE (test code = DAVE) 4.0 mg/dl 2.8-20.0 N Specimen comments: Clean [id number] 01:21:00 Test Item Value Reference Range Interpretation Comments ALCOHOL (test code 0.00 gm/dL 0.00-0.00 N ETHYL ALC OHOL VALUES - = ALC) INTERPRETATION: 0.050 GM/DL - NOT INT OXICATED 0.100 GM/DL - INTOXICATED 0.3 50-0.450 GM/DL - SEVEREL Y INTOXICATED 0.5 50 GM/DL- FATAL INTOXICAT ION Specimen comments: Clean CatchDRUGS OF ABUSE SCREEN [id number] 01:21:00 Test Item Value Reference Range Interpretation Comments [...] code = METHAURN) Specimen comments: Clean CatchURINALYSIS [id number] 01:18:00 Test Item Value Reference Range Interpretation Comments UA COLOR (test code = COLU) COLORLESS UA APPEARANCE (test code = CLEAR APPU) UA GLUCOSE DIPSTICK (test 1000 mg/dl mg/dl NORMAL A code = DGLUU) UA BILIRUBIN DIPSTICK (test NEGATIVE mg/dL NEGATIVE code = BILU) UA KETONE DIPSTICK (test NEGATIVE mg/dl NEGATIVE code = KETU) UA SPECIFIC GRAVITY (test 1.010 1.000-1.030 code = SGU) UA BLOOD DIPSTICK [...] = FEW NONE BACU) Specimen comments: Clean CatchPROTHROMBIN [id number] 01:07:00 Test Item Value Reference Range Interpretation Comments PROTHROMBIN TIME 11.0 SECONDS 9.9-12.8 N PATIENT (test code = PTP) INTERNATIONAL NORMAL 0.9 0.89-1.14 N THE INR IS TO BE USED RATIO (test code = ONLY FOR MONITORING INR) ORAL ANTICOAGULANTTH ERAPY. THE FOLLOWING A RE SUGGESTED RANGE S FROM THEKING[facility] COL LEGE OF CHEST PHYSICIANS:J CARLOS CATION INR VALUEPROPHYLAXI S OF VENOUS THROMBOS IS (ORTHOPEDIC VÍCTOR OUSMANE) 2.0 - 3.0PROP HYLAXIS OF VENOUS THROM BOSIS (OTHER THAN HIG H-RISK SURGERY) 2.0 - 3.0TRE ATMENT OF DEEP VEIN THROMBOSIS OR PULMONARY EMBOL ISM 2.0 - 3.0PREV ENTION OF SYSTEMIC EMB OLISM TISSUE HEART VA LVES 2.0 - 3.0 AC [place] MYOCARDIAL INFA RCTION (TO PREVENT SYSTEMIC EMBOLI SM) 2.0 - 3.0 ACUTE MYOCARDIA L INFARCTION (TO PREVENT RECURRE NT INFARCT) 2.5 - 3.0 VALV ULAR HEART DISEASE 2.0 - 3.0 ATRIAL FIBRILATION 2.0 - 3.0BILEAFLET MECHANICAL VALV E IN AORTIC POSITION 2.0 - 3.0MECHAN ICAL PROSTHETIC VALV ES (HIGH RISK) 2.5 - 3.5PRESEN CE OF LUPUS ANTICOAGU LANT OR ANTIPHOSPHOLIP ID ANTIBODIES 2.5 - 3 .5 Specimen comments: Clean CatchIs patient on anticoagulants? NURINALYSIS COMPLETE 2020-05-19 00:56:00 Test Item Value Reference Range Interpretation Comments UA COLOR (test code = COLU) COLORLESS UA APPEARANCE (test code = CLEAR APPU) UA GLUCOSE DIPSTICK (test 1000 mg/dl mg/dl NORMAL A code = DGLUU) UA BILIRUBIN DIPSTICK (test NEGATIVE mg/dL NEGATIVE code = BILU) UA KETONE DIPSTICK (test NEGATIVE mg/dl NEGATIVE code = KETU) UA SPECIFIC GRAVITY (test 1.010 1.000-1.030 code = SGU) UA BLOOD DIPSTICK [...] code = NONE BACU) Specimen comments: Clean CatchCBC W/AUTO [id number] 00:54:00 Test Item Value Reference Range Interpretation Comments WHITE BLOOD CELL (test code = 10.9 K/mm3 4.5-11.0 N WBC) RED BLOOD CELL (test code = 4.74 M/mm3 4.40-5.90 N RBC) HEMOGLOBIN (test code = HGB) 14.6 gm/dL 13.0-17.0 N HEMATOCRIT (test code = HCT) 42.6 % 36.0-48.0 N MEAN CELL VOLUME (test code = 89.9 UM3 80.0-94.0 N MCV) MEAN CELL HGB (test code = MCH) 30.8 UUG 25.5-32.5 N MEAN CELL HGB CONCETRATION 34.3 gm/dL 29.0-35.5 N (test code = MCHC) RED CELL DISTRIBUTION WIDTH 12.8 % 11.5-15.0 N (test code = RDW) RED CELL DISTRIBUTION WIDTH SD 42.0 fL 34.8-50.2 N (test code = RDW-SD) PLATELET COUNT (test code = 241 K/mm3 150-400 N PLT) MEAN PLATELET VOLUME (test code 10.6 fl 7.4-10.4 H = MPV) NEUTROPHIL % (test code = NT%) 64.9 % 49.0-76.0 N IMMATURE GRANULOCYTE % (test 0.9 % 0.0-0.4 H code = IG%) LYMPHOCYTE % (test code = LY%) 24.4 % 23.0-38.0 N MONOCYTE % (test code = MO%) 7.9 % 1.0-10.0 N EOSINOPHIL % (test code = EO%) 1.3 % 1.0-5.0 N BASOPHIL % (test code = BA%) 0.6 % 0.0-1.0 N NUCLEATED RBC % (test code = 0.0 % 0.0-0.1 N NRBC%) NEUTROPHIL # (test code = NT#) 7.1 K/mm3 2.4-6.3 H IMMATURE GRANULOCYTE # (test 0.10 x10 3/uL 0.00-0.07 H code = IG#) LYMPHOCYTE # (test code = LY#) 2.7 K/mm3 1.2-4.0 N MONOCYTE # (test code = MO#) 0.9 K/mm3 0.0-0.6 H EOSINOPHIL # (test code = EO#) 0.1 K/MM3 0.0-0.7 N BASOPHIL # (test code = BA#) 0.1 K/mm3 0.0-0.2 N NUCLEATED RBC # (test code = 0.00 X10 3uL 0.00-0.01 N NRBC#) ECG 12 [id number] 15:44:00 Test Item Value Reference Range Interpretation Comments Ventricular rate (test 112 code = 253) Atrial rate (test code = 112 255) [place] interval (test code = 130 266) QRSD interval (test code 82 = 260) QT interval (test code = 320 264) QTC interval (test code = 436 265) P axis 1 (test code = 40 267) QRS axis 1 (test code = 45 268) T wave axis (test code = 26 270) EKG impression (test code Sinus = 273) tachycardia-Electron ically Signed By Chandra Varela MD ([id number]) on 05/05/2020 3:43:54 PM Jay CarrascoTfbnkmrkcHNFL-SjS-5 (COVID-19) RNA [Presence] in Respiratory specimen by AAYLA with probe [id number] 05:25:02 Test Item Value Reference Range Interpretation Comments SARS-CoV-2 (COVID-19) RNA Not detected Not-Detected [Presence] in Respiratory specimen by AYALA with probe detection (test code = 15131-2) XR Chest 2 [id number] 00:51:46Hm Interface, Radiology Results Incoming - 05/05/2020 12:54 AM CST EXAMINATION: XR CHEST 2 VWCLINICAL HISTORY: chest painCOMPARISON: 03/07/2020IMPRESSION:No radiographic evidence for acute cardiopulmonary process.Cardiomediastinal silhouette is within normal limits of size.No focal or confluent airspace consolidation is seen to suggest acute pneumonia. No sizable pleural effusion. No pneumothorax identified.No acute osseous abnormalities are visualized.[id number] Preliminary Interpretation - Not an [id number] 00:25:40Gio Martin DO 05/05/2020 6:20 AMECG ED Preliminary Interpretation - Not an OrderPerformed by: Goi Martin DOAuthorized by: Gio Martin DO ECG reviewed by ED Physician in the absence of a restaurant cook: yes Interpretation: Interpretation: non-specific Rate: ECG rate: 112 ECG rate assessment: tachycardic Rhythm: Rhythm: sinus tachycardia Ectopy: Ectopy: none QRS: QRS axis: Normal QRS intervals: NormalConduction: Conduction: normal ST segments: ST segments: NormalT waves: T waves: normalBuna Hinduism COMPREHENSIVE METABOLIC [id number] 01:26:00 Test Item Value Reference Range Interpretation Comments SODIUM (test code = NA) 135 mmol/L 134-147 N POTASSIUM (test code = 3.4 mmol/L 3.4-5.0 N K) CHLORIDE (test code = 104 mmol/L 100-108 N CL) CARBON DIOXIDE (test 26 mmol/L 21-32 N code = CO2) ANION GAP (test code = 5.0 GAP calc 4.0-15.0 N GAP) GLUCOSE (test code = 296 MG/DL 70-110 H GLU) BLOOD UREA NITROGEN 8 MG/DL 7-18 N (test code = BUN) GLOMERULAR FILTRATION >=60 max estimate >60 RATE (test code = GFR) estGFR CREATININE (test code = 0.8 MG/DL 0.8-1.3 N CREAT) TOTAL PROTEIN (test code 6.7 G/DL 6.4-8.2 N = PROT) ALBUMIN (test code = 3.1 G/DL 3.4-5.0 L ALB) GLOBULIN (test code = 3.6 GM/dL GLOB) ALBUMIN/GLOBULIN RATIO 0.9 RATIO 1.2-2.2 L (test code = A/G) CALCIUM (test code = CA) 8.3 MG/DL 8.5-10.1 L BILIRUBIN TOTAL (test 0.10 MG/DL 0.2-1.2 L code = BILT) SGOT/AST (test code = 17 Unit/L 15-37 N AST) SGPT/ALT (test code = 25 Unit/L 12-78 N ALT) ALKALINE PHOSPHATASE 121 Unit/L 50-136 N TOTAL (test code = ALKP) BASIC METABOLIC [id number] 22:32:00 Test Item Value Reference Range Interpretation [...] CA) 8.1 MG/DL 8.5-10.1 L GLUCOSE BEDSIDE [id number] 22:26:00 Test Item Value Reference Range Interpretation Comments GLUCOSE BEDSIDE TESTING (test code 325 mg/dL 70-110 H = GLUBED) UA RFLX MICR CULT IF [id number] 22:24:00 Test Item Value Reference Range Interpretation [...] URINE: CLEAN CATCHUA RFLX MICR CULT IF [id number] 22:22:00 Test Item Value Reference Range Interpretation [...] culture: Dysuria/FrequencySOURCE OF URINE: CLEAN CATCHCBC W/AUTO [id number] 22:12:00 Test Item Value Reference Range Interpretation [...] (test code NO DIFF/SCN CRITERIA = MDIFF) XR Chest 1 Vw [id number] 21:39:51Hm Interface, Radiology Results - 03/07/2020 9:42 PM CST EXAMINATION: XR CHEST 1 VW PORTABLECLINICAL HISTORY: SOB IMPRESSION:There was a poor inspiratory effort. Heart and mediastinum are within normal limits. There is no segmental infiltrate or effusion. No significant change from [facility]2020[id number] 02:24:00 Test Item Value Reference Range Interpretation Comments GLUBED (test code = 391 MG/DL 70-110 H Performe d by certified GLUBED) decay control operator at [facility] [id number] 08:39:00 Test Item Value Reference Range Interpretation Comments GLUBED (test code = 186 MG/DL 70-110 H Performe d by certified GLUBED) decay control operator at [facility] BASIC METABOLIC [id number] 04:55:00 Test Item Value Reference Range Interpretation [...] 8.4 mg/dL 8.0-10.5 N CA) CBC W/AUTO [id number] 04:42:00 Test Item Value Reference Range Interpretation [...] (test code NO = MDIFF) CBC W/AUTO [id number] 04:41:00 Test Item Value Reference Range Interpretation [...] MANUAL DIFF REQUIRED (test code = MDIFF) [id number] 01:06:00 Test Item Value Reference Range Interpretation Comments GLUBED (test code = 231 MG/DL 70-110 H Performe d by certified GLUBED) decay control operator at [facility] BASIC METABOLIC [id number] 21:34:00 Test Item Value Reference Range Interpretation [...] code = CA) mg/dL 8.0-10.5 HEPATIC FUNCTION [id number] 21:34:00 Test Item Value Reference Range Interpretation Comments TOTAL PROTEIN (test code = PROT) g/dL 6.4-8.2 ALBUMIN (test code = ALB) g/dL 3.4-5.0 BILIRUBIN TOTAL (test code = BILT) mg/dL 0.0-1.0 BILIRUBIN DIRECT (test code = BILD) MG/DL 0.0-0.30 SGOT/AST (test code = AST) IUnit/L 15-37 SGPT/ALT (test code = ALT) IUnit/L 30-65 ALKALINE PHOSPHATASE TOTAL (test IUnit/L 20-125 code = ALKP) [id number] 21:34:00 Test Item Value Reference Range Interpretation [...] may anayeli y by method. BASIC METABOLIC [id number] 21:34:00 Test Item Value Reference Range Interpretation [...] 9.1 mg/dL 8.0-10.5 N CA) HEPATIC FUNCTION [id number] 21:34:00 Test Item Value Reference Range Interpretation [...] 92 IUnit/L 20-125 N code = ALKP) [id number] 21:34:00 Test Item Value Reference Range Interpretation [...] may anayeli y by method. CBC W/AUTO [id number] 21:24:00 Test Item Value Reference Range Interpretation [...] (test code NO = MDIFF) CBC W/AUTO [id number] 21:23:00 Test Item Value Reference Range Interpretation [...] MANUAL DIFF REQUIRED (test code = MDIFF) [id number] 21:03:00 Test Item Value Reference Range Interpretation Comments GLUBED (test code = 387 MG/DL 70-110 H Performe d by certified GLUBED) decay control operator at [facility] [id number] 23:21:00 Test Item Value Reference Range Interpretation Comments GLUBED (test code = 372 MG/DL 70-110 H Performe d by certified GLUBED) decay control operator at [facility] BASIC METABOLIC [id number] 20:11:00 Test Item Value Reference Range Interpretation [...] code = 9.2 mg/dL 8.0-10.5 N CA) [id number] 20:11:00 Test Item Value Reference Range Interpretation [...] titative results may anayeli y by method. [id number] 20:11:00 Test Item Value Reference Range Interpretation [...] Legal orEmployment ev aluation purposes. CBC W/AUTO [id number] 20:01:00 Test Item Value Reference Range Interpretation [...] (test code NO = MDIFF) CBC W/AUTO [id number] 19:57:00 Test Item Value Reference Range Interpretation [...] code = MDIFF) - XR CHEST 1 [id number] 19:39:00 [facility] 1975 Sex: M FAX: Anamika Enamorado [phone] [place]: St: REG Name: BRITT FUENTES [facility] : 1975 Age/S: 44/M [address] [place] [address] Unit #: [id number] Loc: [place] [address] Phys: Anamika Dill Acct: [id number] Dis Date: Statu s: REG ER PHONE #: [phone] Exam Date: 02/18/20201919 FAX #: [phone] Reason: Cough EXAMS: CPT CODE: [id number] XR CHEST 1 V 30453 Portable single view AP chest INDICATION: Cough and shortness of breath Comparison: 12/01/2019 chest x-ray FINDINGS: The cardiomediastinal silhouette is normal in size. Lungs are clear. Costophrenic angles are sharp. No suspicious osseous abnormality is seen. IMPRESSION: No evidence for acute cardiopulmonary disease. SL: SG-H at 1939 Reported and signed by: Srini May M.D. CC: Anamika MUHAMMAD Technologist: Kaykay Hemphill, RT(R); Shirley Guy RT(R) [facility] Date/Time/By: 02/18/2020 (1938) : By: [email or web address] Orig Print D/T: S: 02/18/2020 (1941) PAGE 1 Signed [id number] 22:06:00 Test Item Value Reference Range Interpretation Comments GLUBED (test code = 159 MG/DL 70-110 H Performe d by certified GLUBED) decay control operator at [facility] ARTERIAL BLOOD [id number] 21:28:00 Test Item Value Reference Range Interpretation [...] code = MENDEL) certified opera tor at [facility] ABG TEMPERATURE (test 98.0 F code = TEMPA) ABG SITE (test code = L Rad SITEA) TCO2 ARTERIAL (test 24 code = TCO2A) DRUGS OF ABUSE SCREEN [id number] 21:25:00 Test Item Value Reference Range Interpretation [...] pur poses. UA RFLX MICR CULT IF [id number] 21:22:00 Test Item Value Reference Range Interpretation [...] Suprapubic PainSpecimen Description: CLEAN CATCH BASIC METABOLIC [id number] 20:58:00 Test Item Value Reference Range Interpretation [...] 9.8 mg/dL 8.0-10.5 N CA) HEPATIC FUNCTION [id number] 20:58:00 Test Item Value Reference Range Interpretation [...] 123 IUnit/L 20-125 N code = ALKP) [id number] 20:58:00 Test Item Value Reference Range Interpretation Comments MAGNESIUM (test code = MAG) 1.66 mg/dL 1.8-2.4 L [id number] 20:58:00 Test Item Value Reference Range Interpretation [...] titative results may anayeli y by method. [id number] 20:58:00 Test Item Value Reference Range Interpretation Comments ACETAMINOPHEN (test code = ACET) < 0.2 mg/dL 1.0-3.0 L [id number] 20:58:00 Test Item Value Reference Range Interpretation Comments SALICYLATE (test code = DAVE) < 3.0 mg/dL 0.0-20.0 N [id number] 20:58:00 Test Item Value Reference Range Interpretation [...] al orEmployment ev aluation purposes. 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 [facility] [id number] 08:11:00 Test Item Value Reference Range Interpretation Comments GLUBED (test code = 236 MG/DL 70-110 H Performe d by certified GLUBED) decay control operator at [facility] [id number] 05:04:00 Test Item Value Reference Range Interpretation Comments GLUBED (test code = 356 MG/DL 70-110 H Performe d by certified GLUBED) decay control operator at [facility] [id number] 03:31:00 Test Item Value Reference Range Interpretation Comments GLUBED (test code = 410 MG/DL 70-110 H Performe d by certified GLUBED) decay control operator at [facility] DRUGS OF ABUSE SCREEN [id number] 01:08:00 Test Item Value Reference Range Interpretation [...] ed for non-medical pur poses. BASIC METABOLIC [id number] 00:51:00 Test Item Value Reference Range Interpretation [...] 10.7 mg/dL 8.0-10.5 H CA) HEPATIC FUNCTION [id number] 00:51:00 Test Item Value Reference Range Interpretation [...] 140 IUnit/L 20-125 H code = ALKP) [id number] 00:51:00 Test Item Value Reference Range Interpretation Comments ACETAMINOPHEN (test code = ACET) < 0.2 mg/dL 1.0-3.0 L [id number] 00:51:00 Test Item Value Reference Range Interpretation Comments SALICYLATE (test code = DAVE) < 3.0 mg/dL 0.0-20.0 N [id number] 00:51:00 Test Item Value Reference Range Interpretation [...] or Legal orEmployment ev aluation purposes. URINALYSIS [id number] 00:34:00 Test Item Value Reference Range Interpretation [...] SEEN /HPF NONE SEEN SQU) CBC W/O [id number] 00:26:00 Test Item Value Reference Range Interpretation [...] code 10.0 fL 7.0-9.0 H = MPV) BASIC METABOLIC [id number] 04:54:00 Test Item Value Reference Range Interpretation [...] N Specimen comments: Clean CatchHEPATIC FUNCTION PANEL [id number] 04:54:00 Test Item Value Reference Range Interpretation [...] N code = ALKP) Specimen comments: Clean [id number] 04:54:00 Test Item Value Reference Range Interpretation Comments LIPASE (test code = LIP) 157 Units/L 65.0-230.0 N Specimen comments: Clean [id number] 04:54:00 Test Item Value Reference Range Interpretation Comments ACETAMINOPHEN (test <2.0 mcg/ml 10.0-30.0 L Result i s in code = ACET) Microgram per milliliter. Specimen comments: Clean [id number] 04:54:00 Test Item Value Reference Range Interpretation Comments LITHIUM (test code = LITH) <0.1 MMOL/L 0.6-1.2 LL Specimen comments: Clean [id number] 04:54:00 Test Item Value Reference Range Interpretation Comments SALICYLATE (test code = DAVE) 5.7 mg/dl 2.8-20.0 N Specimen comments: Clean CatchVALPROIC ACID (DEPAKENE)2020-01-19 04:54:00 Test Item Value Reference Range Interpretation Comments VALPROIC ACID <3.0 mcg/dL 50-100 L The physicia n must (DEPAKENE) (test determine t he code = VALP) appropriate therapeutic range for each patient. Specimen comments: Clean [id number] 04:54:00 Test Item Value Reference Range Interpretation Comments ALCOHOL (test code 0.00 gm/dL 0.00-0.00 N ETHYL ALC OHOL VALUES - = ALC) INTERPRETATION: 0.050 GM/DL - NOT INT OXICATED 0.100 GM/DL - INTOXICATED 0.3 50-0.450 GM/DL - SEVEREL Y INTOXICATED 0.5 50 GM/DL- FATAL INTOXICAT ION Specimen comments: Clean CatchBASIC METABOLIC [id number] 04:53:00 Test Item Value Reference Range Interpretation [...] N Specimen comments: Clean CatchHEPATIC FUNCTION PANEL [id number] 04:53:00 Test Item Value Reference Range Interpretation [...] N code = ALKP) Specimen comments: Clean [id number] 04:53:00 Test Item Value Reference Range Interpretation Comments LIPASE (test code = LIP) 157 Units/L 65.0-230.0 N Specimen comments: Clean [id number] 04:53:00 Test Item Value Reference Range Interpretation Comments ACETAMINOPHEN (test <2.0 mcg/ml 10.0-30.0 L Result i s in code = ACET) Microgram per milliliter. Specimen comments: Clean [id number] 04:53:00 Test Item Value Reference Range Interpretation Comments LITHIUM (test code = LITH) MMOL/L 0.6-1.2 Specimen comments: Clean [id number] 04:53:00 Test Item Value Reference Range Interpretation Comments SALICYLATE (test code = DAVE) 5.7 mg/dl 2.8-20.0 N Specimen comments: Clean CatchVALPROIC ACID (DEPAKENE)2020-01-19 04:53:00 Test Item Value Reference Range Interpretation Comments VALPROIC ACID <3.0 mcg/dL 50-100 L The physicia n must (DEPAKENE) (test determine t he code = VALP) appropriate therapeutic range for each patient. Specimen comments: Clean [id number] 04:53:00 Test Item Value Reference Range Interpretation Comments ALCOHOL (test code 0.00 gm/dL 0.00-0.00 N ETHYL ALC OHOL VALUES - = ALC) INTERPRETATION: 0.050 GM/DL - NOT INT OXICATED 0.100 GM/DL - INTOXICATED 0.3 50-0.450 GM/DL - SEVEREL Y INTOXICATED 0.5 50 GM/DL- FATAL INTOXICAT ION Specimen comments: Clean [id number] 04:46:00 Test Item Value Reference Range Interpretation Comments ACETAMINOPHEN (test code = ACET) mcg/ml 10.0-30.0 Specimen comments: Clean [id number] 04:46:00 Test Item Value Reference Range Interpretation Comments LITHIUM (test code = LITH) MMOL/L 0.6-1.2 Specimen comments: Clean [id number] 04:46:00 Test Item Value Reference Range Interpretation Comments SALICYLATE (test code = DAVE) mg/dl 2.8-20.0 Specimen comments: Clean CatchVALPROIC ACID (DEPAKENE)2020-01-19 04:46:00 Test Item Value Reference Range Interpretation Comments VALPROIC ACID (DEPAKENE) (test code = mcg/dL 50-100 VALP) Specimen comments: Clean [id number] 04:46:00 Test Item Value Reference Range Interpretation Comments ALCOHOL (test code = ALC) gm/dL 0.00-0.00 Specimen comments: Clean CatchBASIC METABOLIC [id number] 04:46:00 Test Item Value Reference Range Interpretation [...] 8.0-10.5 Specimen comments: Clean CatchHEPATIC FUNCTION PANEL [id number] 04:46:00 Test Item Value Reference Range Interpretation [...] 50.0-136.0 code = ALKP) Specimen comments: Clean [id number] 04:46:00 Test Item Value Reference Range Interpretation Comments LIPASE (test code = LIP) Units/L 65.0-230.0 Specimen comments: Clean CatchDRUGS OF ABUSE SCREEN [id number] 04:45:00 Test Item Value Reference Range Interpretation [...] code = [place]) Specimen comments: Clean CatchURINALYSIS [id number] 04:45:00 Test Item Value Reference Range Interpretation [...] NONE BACU) Specimen comments: Clean CatchCBC W/AUTO [id number] 04:40:00 Test Item Value Reference Range Interpretation [...] 0.00 X10 3uL 0.00-0.01 N NRBC#) URINALYSIS [id number] 04:39:00 Test Item Value Reference Range Interpretation [...] code = NONE BACU) Specimen comments: Clean VbeyaCNVE-LdZ-9 (COVID-19) RNA [Presence] in Respiratory specimen by AYALA with probe [id number] 14:14:30 Test Item Value Reference Range Interpretation Comments SARS-CoV-2 (COVID-19) RNA Not detected Not-Detected [Presence] in Respiratory specimen by AYALA with probe detection (test code = 16198-7) [id number] 12:04:00 Test Item Value Reference Range Interpretation Comments GLUBED (test code = 255 MG/DL 70-110 H Performe d by certified GLUBED) decay control operator at [facility] - XR CHEST 1 [id number] 05:28:00 FAX: Willy Flores DO [phone] [place]: St: REG Name: BRITT FUENTES [facility] : 1975 Age/S: 44/M [address] [place] [address] Blvd Unit#: [id number] Loc: [place] [address] Phys: Willy Askew DO Acct: [id number] Dis Date: Status: REG ER PHONE #: [phone] Exam Date: 12/01/2019 0502 FAX #: [phone] Reason: CHEST PAIN EXAMS: CPT CODE: [id number] XR CHEST 1 V 23942 Chest x-ray 1 view History: Chest pain [...] M.D. CC: Willy Askew DO Technologist: RT Ronda(Jose Alberto) Trnscrd Date/Time/By: 12/01/2019 (527) : By: OniUK1 Orig Print D/T: S: 12/01/2019 (2844) PAGE 1 Signed ReportCOMPREHENSIVE METABOLIC [id number] 04:02:00 Test Item Value Reference Range Interpretation [...] 20-125 N TOTAL (test code = ALKP) [id number] 04:02:00 Test Item Value Reference Range Interpretation [...] titative results may anayeli y by method. [id number] 04:02:00 Test Item Value Reference Range Interpretation Comments ALCOHOL (test code 14.9 mg/dL <3.0 H Ethyl Alc ohol = ALC) Interpretation: 100 mg/dL - Legally Intoxic ated 300-400 mg/ dL - Severely Intoxi cated >400 mg/dL - Potentially LethalResults a re for Medical purpose s only, and not for Leg al orEmployment ev aluation purposes. CBC W/AUTO [id number] 03:32:00 Test Item Value Reference Range Interpretation [...] DIFF REQUIRED (test code NO = MDIFF) [id number] 05:23:00 Test Item Value Reference Range Interpretation Comments SODIUM (test code = NA) 135 mEq/L 134-147 N DRUGS OF ABUSE SCREEN [id number] 23:56:00 Test Item Value Reference Range Interpretation [...] ed for non-medical pur poses. BASIC METABOLIC [id number] 23:54:00 Test Item Value Reference Range Interpretation [...] 8.9 mg/dL 8.0-10.5 N CA) HEPATIC FUNCTION [id number] 23:54:00 Test Item Value Reference Range Interpretation [...] in INTERNATIONAL (test code = CK) UNITS/LITER [id number] 23:54:00 Test Item Value Reference Range Interpretation Comments ACETAMINOPHEN (test code = ACET) < 2 ug/mL 10-30 L [id number] 23:54:00 Test Item Value Reference Range Interpretation Comments SALICYLATE (test code = DAVE) 5.3 mg/dL 2.8-20.0 N VALPROIC ACID (DEPAKENE)2019-10-17 23:54:00 Test Item Value Reference Range Interpretation Comments VALPROIC ACID (DEPAKENE) (test < 3 mcg/mL 50.0-100.0 L code = VALP) [id number] 23:54:00 Test Item Value Reference Range Interpretation Comments ALCOHOL (test code < 0.003 G/dL <0.003 Ethyl Alc ohol = ALC) Interpretation: 0.100 gm/dL - Legally Intoxic ated 0.300-0.40 0 gm/dL - Severely Into xicated >0.400 gm/dL - Potentially LethalResults a re for Medical purpose s only, and not for Leg al orEmployment ev aluation purposes. DRUGS OF ABUSE SCREEN [id number] 23:46:00 Test Item Value Reference Range Interpretation [...] ed for non-medical pur poses. BASIC METABOLIC [id number] 23:44:00 Test Item Value Reference Range Interpretation [...] CA) 8.9 mg/dL 8.0-10.5 N HEPATIC FUNCTION [id number] 23:44:00 Test Item Value Reference Range Interpretation [...] KINASE (CK) (test code = CK) 35-232 [id number] 23:44:00 Test Item Value Reference Range Interpretation Comments ACETAMINOPHEN (test code = ACET) ug/mL 10-30 [id number] 23:44:00 Test Item Value Reference Range Interpretation Comments SALICYLATE (test code = DAVE) mg/dL 2.8-20.0 VALPROIC ACID (DEPAKENE)2019-10-17 23:44:00 Test Item Value Reference Range Interpretation Comments VALPROIC ACID (DEPAKENE) (test code = mcg/mL 50.0-100.0 VALP) [id number] 23:44:00 Test Item Value Reference Range Interpretation Comments ALCOHOL (test code = ALC) G/dL <0.003 URINALYSIS [id number] 23:38:00 Test Item Value Reference Range Interpretation [...] NONE SEEN code = SQU) CBC W/O [id number] 23:30:00 Test Item Value Reference Range Interpretation [...] 9.4 fL 7.0-9.0 H code = MPV) SARS coronavirus 2 RNA [Presence] in Respiratory specimen by AYALA with probe [id number] 12:42:52 Test Item Value Reference Range Interpretation Comments SARS coronavirus 2 RNA Not detected Not-Detected [Presence] in Respiratory specimen by AYALA with probe detection (test code = 56561-2) BASIC METABOLIC [id number] 09:01:00 Test Item Value Reference Range Interpretation [...] 8.8 mg/dL 8.0-10.5 N CA) HEPATIC FUNCTION [id number] 09:01:00 Test Item Value Reference Range Interpretation [...] 105 IUnit/L 20-125 N code = ALKP) [id number] 09:01:00 Test Item Value Reference Range Interpretation Comments ACETAMINOPHEN (test code = ACET) < 2 ug/mL 10-30 L [id number] 09:01:00 Test Item Value Reference Range Interpretation Comments SALICYLATE (test code = DAVE) 5.4 mg/dL 2.8-20.0 N [id number] 09:01:00 Test Item Value Reference Range Interpretation Comments ALCOHOL (test code < 0.003 G/dL <0.003 Ethyl Alc ohol = ALC) Interpretation: 0.100 gm/dL - Legally Intoxic ated 0.300-0.40 0 gm/dL - Severely Into xicated >0.400 gm/dL - Potentially LethalResults a re for Medical purpose s only, and not for Leg al orEmployment ev aluation purposes. BASIC METABOLIC [id number] 08:57:00 Test Item Value Reference Range Interpretation [...] 8.8 mg/dL 8.0-10.5 N CA) HEPATIC FUNCTION [id number] 08:57:00 Test Item Value Reference Range Interpretation [...] 105 IUnit/L 20-125 N code = ALKP) [id number] 08:57:00 Test Item Value Reference Range Interpretation Comments ACETAMINOPHEN (test code = ACET) ug/mL -30 [id number] 08:57:00 Test Item Value Reference Range Interpretation Comments SALICYLATE (test code = DAVE) 5.4 mg/dL 2.8-20.0 N [id number] 08:57:00 Test Item Value Reference Range Interpretation Comments ALCOHOL (test code < 0.003 G/dL <0.003 Ethyl Alc ohol = ALC) Interpretation: 0.100 gm/dL - Legally Intoxic ated 0.300-0.40 0 gm/dL - Severely Into xicated >0.400 gm/dL - Potentially LethalResults a re for Medical purpose s only, and not for Leg al orEmployment ev aluation purposes. DRUGS OF ABUSE SCREEN [id number] 08:56:00 Test Item Value Reference Range Interpretation [...] ed for non-medical pur poses. BASIC METABOLIC [id number] 08:45:00 Test Item Value Reference Range Interpretation [...] CA) 8.8 mg/dL 8.0-10.5 N HEPATIC FUNCTION [id number] 08:45:00 Test Item Value Reference Range Interpretation Comments TOTAL PROTEIN (test code = PROT) g/dL 6.4-8.2 ALBUMIN (test code = ALB) g/dL 3.4-5.0 BILIRUBIN TOTAL (test code = BILT) MG/DL <1.5 BILIRUBIN DIRECT (test code = BILD) MG/DL 0.0-0.30 SGOT/AST (test code = AST) IUnit/L 15-37 SGPT/ALT (test code = ALT) IUnit/L 15-65 ALKALINE PHOSPHATASE TOTAL (test IUnit/L 20-125 code = ALKP) [id number] 08:45:00 Test Item Value Reference Range Interpretation Comments ACETAMINOPHEN (test code = ACET) ug/mL 10-30 [id number] 08:45:00 Test Item Value Reference Range Interpretation Comments SALICYLATE (test code = DAVE) mg/dL 2.8-20.0 [id number] 08:45:00 Test Item Value Reference Range Interpretation Comments ALCOHOL (test code = ALC) G/dL <0.003 CBC W/O [id number] 08:30:00 Test Item Value Reference Range Interpretation [...] H = MPV) - XR CHEST 1 [id number] 07:19:00 FAX: Willy Dahl MD [phone] [place]: St: PRE Name: BRITT FUENTES [facility] : 1975 Age/S: 44/M [address] [place] [address] Unit#: [id number] Loc: [place] [address] Phys: Willy Dahl MD Acct: [id number] Dis Date: Status: PRE ER PHONE #: [phone] Exam Date: 10/07/2019718 FAX #: [phone] Reason: SOB EXAMS: CPT CODE: [id number] XR CHEST 1 V 48860 Study: - XR CHEST 1 V 10/07/2019 6:58 AM PatientName: BRITT FUENTES MR: [id number] : 1975; Age: 44 years y/o Male Ordering Physician: Willy Dahl MD Clinical Indication: SOB Comparison: None FINDINGS LUNGS: The lungs are clear of consolidation, pleural effusion, and pneumothorax. HEART AND MEDIASTINUM: Normal size heart. LINES: None. OSSEOUS STRUCTURES: No fracture, dislocation, or suspicious focal osseous lesion. OTHER: None. IMPRESSION: No acute abnormality as above discussed. SL: [id number] at 0719 Reported and signed by: Spike Brooks M.D. CC: Willy Dahl MD Technologist: RT Colton(R) Trnscrd Date/Time/By: 10/07/2019 (718) : By: [email or web address] Orig Print D/T: S: 10/07/2019 (4853) PAGE 1 Signed [id number] 00:21:00 Test Item Value Reference Range Interpretation Comments GLUBED (test code = 95 MG/DL 70-110 N Performe d by certified GLUBED) decay control operator at [facility] COMPREHENSIVE METABOLIC [id number] 15:35:00 Test Item Value Reference Range Interpretation [...] 20-125 N TOTAL (test code = ALKP) [id number] 15:35:00 Test Item Value Reference Range Interpretation Comments ALCOHOL (test code < 0.003 G/dL <0.003 Ethyl Alc ohol = ALC) Interpretation: 0.100 gm/dL - Legally Intoxic ated 0.300-0.40 0 gm/dL - Severely Into xicated >0.400 gm/dL - Potentially LethalResults a re for Medical purpose s only, and not for Leg al orEmployment ev aluation purposes. COMPREHENSIVE METABOLIC [id number] 15:30:00 Test Item Value Reference Range Interpretation [...] TOTAL (test IUnit/L 20-125 code = ALKP) [id number] 15:30:00 Test Item Value Reference Range Interpretation Comments ALCOHOL (test code = ALC) G/dL <0.003 DRUGS OF ABUSE SCREEN [id number] 15:30:00 Test Item Value Reference Range Interpretation [...] us ed for non-medical pur poses. URINALYSIS [id number] 15:29:00 Test Item Value Reference Range Interpretation [...] 0-5 /HPF NONE SEEN SQU) CBC W/AUTO [id number] 15:16:00 Test Item Value Reference Range Interpretation [...] (test code NO = MDIFF) WHOLE BLOOD [id number] 11:55:00 Test Item Value Reference Range Interpretation Comments WHOLE BLOOD GLUCOSE 132 MG/DL 70-99 Fastin g glucose (test code = POC GLU) normal <100 MG/DL- [employer] recommend ation WHOLE BLOOD [id number] 07:00:00 Test Item Value Reference Range Interpretation Comments WHOLE BLOOD GLUCOSE 342 MG/DL 70-99 H Fastin g glucose (test code = POC GLU) normal <100 MG/DL- [employer] recommend ation URINE DRUG [id number] 01:31:00 Test Item Value Reference Range Interpretation [...] PCP (test code = NEGATIVE NEGATIVE BMTPCP) [id number] 00:29:00 Test Item Value Reference Range Interpretation [...] H UAMICRO (test code = UAMICRO) NO [id number] 23:22:00 Test Item Value Reference Range Interpretation [...] glucose = GLUCOSE) normal <100 MG/ DL- [employer] recommendation* * CALCIUM (test [...] mL/min/1.73m2 mL/min/1.73m2 is considered norm al. CREATINE [id number] 23:22:00 Test Item Value Reference Range Interpretation Comments CK (test code = CK) 335 U/L 55-170 H BLOOD ALCOHOL (ETOH)2019-08-25 23:21:00 Test Item Value Reference Range Interpretation Comments ALCOHOL BLOOD LEVEL <10 MG/DL 0-10 Results are to be used (test code = ALC BLD) for me dical purposes (treatment) onl y. Not intended for no n medical purpose s. [id number] 23:06:00 Test Item Value Reference Range Interpretation [...] K/UL 1.2-7.2 = NEUT) Urinalysis specimen collection [id number] 18:25:00 Test Item Value Reference Range Interpretation Comments Urine Source (test code = 41320-9) URINE [facility] AnamikaColor of Urine by [id number] 18:25:00 Test Item Value Reference Range Interpretation Comments Urine Color (test code = 17258-2) Lt Yellow [facility] ElizabethUrine clarity [id number] 18:25:00 Test Item Value Reference Range Interpretation Comments Urine Appearance (test code = 16555-3) Clear [facility] ElizabenilesUrine pH measurement by automated test [id number] 18:25:00 Test Item Value Reference Range Interpretation Comments Urine pH (test code = 92783-1) 5.[address] PollothSpecific gravity of Urine by Automated test strip 2019-08-25 18:25:00 Test Item Value Reference Range Interpretation Comments Urine Specific [place] (test code = > 1.030 04592-8) [facility] ElifunmibethUrine protein measurement by automated test strip (mass/volume)2019-08-25 18:25:00 Test Item Value Reference Range Interpretation Comments Urine Protein (test code = Negative mg/dL 05396-2) [facility] JesusbethUrine glucose measurement by automated test strip (mass/volume)2019-08-25 18:25:00 Test Item Value Reference Range Interpretation Comments Urine Glucose (UA) (test code = >1000 mg/dL 61895-0) [facility] ElifunmibethUrine ketones measurement by automated test strip (mass/volume)2019-08-25 18:25:00 Test Item Value Reference Range Interpretation Comments Urine Ketones (test code = Negative mg/dL 55713-8) [facility] erythrocytes count by automated test strip (number/volume)2019-08-25 18:25:00 Test Item Value Reference Range Interpretation Comments Urine Occult Blood (test code = Negative 95689-2) [facility]othUrine nitrite detection by automated test [id number] 18:25:00 Test Item Value Reference Range Interpretation Comments Urine Nitrite (test code = 44229-1) Negative [facility]othU[facility] total bilirubin measurement by automated test strip (mass/volume)2019-08-25 18:25:00 Test Item Value Reference Range Interpretation Comments Urine Bilirubin (test code = Negative mg/dL 81008-7) [facility] ElifunmibethUrine urobilinogen measurement by automated test strip (mass/volume)2019-08-25 18:25:00 Test Item Value Reference Range Interpretation Comments Urine Urobilinogen (test code Negative mg/dL = 75303-9) [facility] ElifunmibethUrine leukocytes count by automated test strip (number/volume)2019-08-25 18:25:00 Test Item Value Reference Range Interpretation Comments Urine Leukocyte Esterase Negative {Janie}/uL (test code = 15912-8) KASH YangMicroscopic examination of [id number] 18:25:00 Test Item Value Reference Range Interpretation Comments Microscopic Urinalysis (T) (test code = ----- 73267-2) [facility] AnamikaUrine sediment erythrocyte count by microscopy (number/high power field)2019-08-25 18:25:00 Test Item Value Reference Range Interpretation Comments Urine RBC (test code = 94887-0) 0-2 /[HPF] [facility] AnamikaUrine sediment leukocyte count by microscopy (number/high power field)2019-08-25 18:25:00 Test Item Value Reference Range Interpretation Comments Urine WBC (test code = 5821-4) 0-5 /[HPF] [facility] AnamikaUrine sediment epithelial cell count by microscopy (number/high power field)2019-08-25 18:25:00 Test Item Value Reference Range Interpretation Comments Urine Epithelial Cells (test None Seen /[HPF] code = 5787-7) [facility] AnamikaUrine sediment crystal count by microscopy (number/high power field)2019-08-25 18:25:00 Test Item Value Reference Range Interpretation Comments Urine Crystals (test code = None Seen /[HPF] 69179-7) [facility] AnamikaUrine sediment bacteria count by microscopy (number/high power field)2019-08-25 18:25:00 Test Item Value Reference Range Interpretation Comments Urine Bacteria (test code = None Seen /[HPF] 5769-5) [facility] AnamikaUrine sediment casts count by microscopy (number/low power field)2019-08-25 18:25:00 Test Item Value Reference Range Interpretation Comments Urine Casts (test code = None Seen /[LPF] 9842-6) [facility] AnamikaUrine sediment hyaline cast count by microscopy (number/low power field)2019-08-25 18:25:00 Test Item Value Reference Range Interpretation Comments Urine Hyaline Casts (test None Seen /[LPF] code = 5796-8) [facility] PollothYeast detection in urine sediment by light microscopy 2019-08-25 18:25:00 Test Item Value Reference Range Interpretation Comments Urine Yeast (test code = None Seen /[HPF] 68395-6) [facility]Service comment [id number] 18:25:00 Test Item Value Reference Range Interpretation Comments Urinalysis Comment (test code = 8262-8) * [facility] 18:25:00 Test Item Value Reference Range Interpretation Comments Urine Culture Indicated (test code = Not Ind 8264-4) [facility] ElizabethSerum or plasma sodium measurement (moles/volume) 2019-08-25 02:07:00 Test Item Value Reference Range Interpretation Comments Sodium Level (test code = 2951-2) 137 mmol/L [facility] ElizabethSerum or plasma potassium measurement (moles/volume) 2019-08-25 02:07:00 Test Item Value Reference Range Interpretation Comments Potassium Level (test code = 3.4 mmol/L 2823-3) [facility] ElizabethSerum or plasma chloride measurement (moles/volume) 2019-08-25 02:07:00 Test Item Value Reference Range Interpretation Comments Chloride Level (test code = 104 mmol/L 5-0) [facility]Ser[facility] or plasma total carbon dioxide measurement (moles/volume)2019-08-25 02:07:00 Test Item Value Reference Range Interpretation Comments Carbon Dioxide Level (test code = 25 mmol/L 8-9) [facility] ElizabethSerum or plasma anion gap determination (moles/volume) 2019-08-25 02:07:00 Test Item Value Reference Range Interpretation Comments Anion Gap (test code = 53314-4) [address] ElizabethSerum or plasma urea nitrogen measurement (mass/volume) 2019-08-25 02:07:00 Test Item Value Reference Range Interpretation Comments Blood Urea Nitrogen (test code = 9 mg/dL 3094-0) [facility]Ser[facility] or plasma creatinine measurement (mass/volume) 2019-08-25 02:07:00 Test Item Value Reference Range Interpretation Comments Creatinine (test code = 2160-0) 1.0 mg/dL [facility] RominazabethGFR estimate [id number] 02:07:00 Test Item Value Reference Range Interpretation Comments Estimat Glomerular Filtration Rate 87 (test code = 91996-3) [facility] ElizabethSerum or plasma glucose measurement (mass/volume) 2019-08-25 02:07:00 Test Item Value Reference Range Interpretation Comments Glucose Level (test code = 2345-7) 343 mg/dL [facility] or plasma calcium measurement (mass/volume) 2019-08-25 02:07:00 Test Item Value Reference Range Interpretation Comments Calcium Level (test code = 12601-2) 8.6 mg/dL [facility]. [facility] total bilirubin measurement (mass/volume) 2019-08-25 02:07:00 Test Item Value Reference Range Interpretation Comments Total Bilirubin (test code = 0.1 mg/dL 1974-) [facility]. [facility] or plasma aspartate aminotransferase measurement (enzymatic activity/volume)2019-08-25 02:07:00 Test Item Value Reference Range Interpretation Comments Aspartate Amino Transf (AST/SGOT) 17 U/L (test code = 1920-8) [facility] alanine aminotransferase measurement (enzymatic activity/volume)2019-08-25 02:07:00 Test Item Value Reference Range Interpretation Comments Alanine Aminotransferase (ALT/SGPT) 18 U/L (test code = 1742-6) [facility]. [facility]er[facility] or plasma protein measurement (mass/volume) 2019-08-25 02:07:00 Test Item Value Reference Range Interpretation Comments Total Protein (test code = 2885-2) 6.6 g/dL [facility]. [facility] albumin measurement (mass/volume) 2019-08-25 02:07:00 Test Item Value Reference Range Interpretation Comments Albumin (test code = 1751-7) 3.8 g/dL [facility] alkaline phosphatase measurement (enzymatic activity/volume)2019-08-25 02:07:00 Test Item Value Reference Range Interpretation Comments Alkaline Phosphatase (test code = 84 U/L 6768-6) [facility] ser/[id number] 02:07:00 Test Item Value Reference Range Interpretation Comments Total Creatine Kinase (test code = 411 U/L 2157-6) [facility] plasma free thyroxine (FT4) measurement (mass/volume)2019-08-25 02:07:00 Test Item Value Reference Range Interpretation Comments Free Thyroxine (test code = 0.83 ng/dL 3024-7) [facility] or plasma thyrotropin measurement with detection limit of 0.005 mIU/L or less (units/volume)2019-08-25 02:07:00 Test Item Value Reference Range Interpretation Comments Thyroid Stimulating Hormone 1.48 u[iU]/mL (TSH) (test code = 29266-3) [facility]er[facility] or plasma triiodothyronine (T3) measurement (mass/volume)2019-08-25 02:07:00 Test Item Value Reference Range Interpretation Comments Total Triiodothyronine (test code 0.95 ng/mL = 3053-6) [facility]. [facility]er[facility] or plasma acetaminophen measurement (mass/volume) 2019-08-25 02:07:00 Test Item Value Reference Range Interpretation Comments Acetaminophen Level (test code = < 0.6 ug/mL 3298-7) [facility] ser/[id number] 02:07:00 Test Item Value Reference Range Interpretation Comments Salicylates Level (test code = < 5.0 mg/dL 4024-6) [facility]. [facility] plasma ethanol measurement (mass/volume) 2019-08-25 02:07:00 Test Item Value Reference Range Interpretation Comments Ethyl Alcohol Level (test code = < 10 mg/dL 5643-2) [facility]Autom[facility] leukocyte count (number/volume)2019-08-25 02:07:00 Test Item Value Reference Range Interpretation Comments White Blood Count (test code = 8.9 10*3/uL 6690-2) [facility] erythrocytes automated count (number/volume) 2019-08-25 02:07:00 Test Item Value Reference Range Interpretation Comments Red Blood Count (test code = 4.10 10*6/uL 789-8) [facility] (mass/volume)2019-08-25 02:07:00 Test Item Value Reference Range Interpretation Comments Hemoglobin (test code = 718-7) 13.1 g/dL [facility] HospitalAutomated blood hematocrit (volume fraction)2019-08-25 02:07:00 Test Item Value Reference Range Interpretation Comments Hematocrit (test code = 4544-3) 37.7 % [facility] ElizabethAutomated erythrocyte mean corpuscular volume (MCV) [id number] 02:07:00 Test Item Value Reference Range Interpretation Comments Mean Corpuscular Volume (test code = 92 fL 787-2) [facility] ElizabethAutomated erythrocyte mean corpuscular hemoglobin (mass per erythrocyte)2019-08-25 02:07:00 Test Item Value Reference Range Interpretation Comments Mean Corpuscular Hemoglobin (test 32.0 pg code = 785-6) [facility]Autom[facility] erythrocyte mean corpuscular hemoglobin concentration measurement (mass/[id number] 02:07:00 Test Item Value Reference Range Interpretation Comments Mean Corpuscular Hemoglobin Concent 34.7 g/dL (test code = 786-4) [facility] ElizabethAutomated erythrocyte distribution width [id number] 02:07:00 Test Item Value Reference Range Interpretation Comments Red Cell Distribution Width (test code 12.6 % = 788-0) [facility] ElizabethAutomated blood platelet count (count/volume)2019-08-25 02:07:00 Test Item Value Reference Range Interpretation Comments Platelet Count (test code = 228 10*3/uL 777-3) [facility]Autom[facility] blood platelet mean volume leisktqockn3556-27-15 02:07:00 Test Item Value Reference Range Interpretation Comments Mean Platelet Volume (test code = 10.0 95554-0) [facility] ElizabethAutomated blood neutrophil count as percentage of total spzooiaodw4252-11-56 02:07:00 Test Item Value Reference Range Interpretation Comments Neutrophils (%) (Auto) (test code = 55 % 770-8) [facility] ElizabethAutomated blood immature granulocyte count as percentage of total unhfrdlvvc3137-45-29 02:07:00 Test Item Value Reference Range Interpretation Comments Immature Granulocyte % (Auto) (test 0 % code = 01305-1) [facility] ElizabethAutomated blood lymphocyte count as percentage of total nsxoeawqhu2769-10-48 02:07:00 Test Item Value Reference Range Interpretation Comments Lymphocytes (%) (Auto) (test code = 32 % 736-9) [facility]Autom[facility] blood monocyte count as percentage of total vzehabylfm6331-32-47 02:07:00 Test Item Value Reference Range Interpretation Comments Monocytes (%) (Auto) (test code = 9 % 5905-5) [facility]Automated blood eosinophil count as percentage of total xuyquawfrt9594-55-40 02:07:00 Test Item Value Reference Range Interpretation Comments Eosinophils (%) (Auto) (test code = 3 % 713-8) [facility]Autom[facility] blood basophil count as percentage of total osjmfzryca8380-66-64 02:07:00 Test Item Value Reference Range Interpretation Comments Basophils (%) (Auto) (test code = 1 % 706-2) [facility] ElizabethAutomated blood nucleated erythrocyte count as percentage of total dqptxhxpcz4800-48-37 02:07:00 Test Item Value Reference Range Interpretation Comments Nucleated Red Blood Cells % (test code 0.0 % = 95081-4) [facility]Autom[facility] blood neutrophil count (number/volume)2019-08-25 02:07:00 Test Item Value Reference Range Interpretation Comments Neutrophils # (Auto) (test code = 4.9 10*3/uL 751-8) [facility] ElizabethAutomated blood immature granulocyte count as percentage of total hkjusrwvou4216-85-90 02:07:00 Test Item Value Reference Range Interpretation Comments Immature Granulocyte # (Auto) 0.0 10*3/uL (test code = 85432-5) [facility] ElizabethAutomated blood lymphocyte count (number/volume)2019-08-25 02:07:00 Test Item Value Reference Range Interpretation Comments Lymphocytes # (Auto) (test code = 2.8 10*3/uL 731-0) [facility] ElizabethBlood monocytes automated count (number/volume)2019-08-25 02:07:00 Test Item Value Reference Range Interpretation Comments Monocytes # (Auto) (test code = 0.8 10*3/uL 742-7) [facility] ElizabethAutomated blood eosinophil [id number] 02:07:00 Test Item Value Reference Range Interpretation Comments Eosinophils # (Auto) (test code = 0.3 10*3/uL 711-2) [facility]Automated blood basophil count (number/volume)2019-08-25 02:07:00 Test Item Value Reference Range Interpretation Comments Basophils # (Auto) (test code = 0.1 10*3/uL 704-7) [facility] ElizabethAutomated blood nucleated erythrocyte count (count/volume) 2019-08-25 02:07:00 Test Item Value Reference Range Interpretation Comments Nucleated Red Blood Cells # 0.00 10*3/uL (test code = 771-6) [facility] ElizabethService comment [id number] 02:07:00 Test Item Value Reference Range Interpretation Comments Manual Differential (test code = Not Ind 8265-1) [facility] ElizabethSerum or plasma sodium measurement (moles/volume) 2019-08-25 02:07:00 Test Item Value Reference Range Interpretation Comments Sodium Level (test code = 2951-2) 137 mmol/L [facility] ElizabethSerum or plasma potassium measurement (moles/volume) 2019-08-25 02:07:00 Test Item Value Reference Range Interpretation Comments Potassium Level (test code = 3.4 mmol/L 2823-3) [facility] ElizabethSerum or plasma chloride measurement (moles/volume) 2019-08-25 02:07:00 Test Item Value Reference Range Interpretation Comments Chloride Level (test code = 104 mmol/L 5-0) [facility] ElizabethSerum or plasma total carbon dioxide measurement (moles/volume)2019-08-25 02:07:00 Test Item Value Reference Range Interpretation Comments Carbon Dioxide Level (test code = 25 mmol/L 2027-9) [facility] ElizabethSerum or plasma anion gap determination (moles/volume) 2019-08-25 02:07:00 Test Item Value Reference Range Interpretation Comments Anion Gap (test code = 27380-7) [address] ElizabethSerum or plasma urea nitrogen measurement (mass/volume) 2019-08-25 02:07:00 Test Item Value Reference Range Interpretation Comments Blood Urea Nitrogen (test code = 9 mg/dL 3094-0) [facility] ElifunmibethSerum or plasma creatinine measurement (mass/volume) 2019-08-25 02:07:00 Test Item Value Reference Range Interpretation Comments Creatinine (test code = 2160-0) 1.0 mg/dL [facility] ElizabethGFR estimate [id number] 02:07:00 Test Item Value Reference Range Interpretation Comments Estimat Glomerular Filtration Rate 87 (test code = 86427-3) [facility]Serum or plasma glucose measurement (mass/volume) 2019-08-25 02:07:00 Test Item Value Reference Range Interpretation Comments Glucose Level (test code = 2345-7) 343 mg/dL [facility] ElizabethSerum or plasma calcium measurement (mass/volume) 2019-08-25 02:07:00 Test Item Value Reference Range Interpretation Comments Calcium Level (test code = 06597-9) 8.6 mg/dL [facility] ElizabethSerum or plasma total bilirubin measurement (mass/volume) 2019-08-25 02:07:00 Test Item Value Reference Range Interpretation Comments Total Bilirubin (test code = 0.1 mg/dL 1974-2) [facility] ElizabethSerum or plasma aspartate aminotransferase measurement (enzymatic activity/volume)2019-08-25 02:07:00 Test Item Value Reference Range Interpretation Comments Aspartate Amino Transf (AST/SGOT) 17 U/L (test code = 1920-8) [facility] ElizabethSerum or plasma alanine aminotransferase measurement (enzymatic activity/volume)2019-08-25 02:07:00 Test Item Value Reference Range Interpretation Comments Alanine Aminotransferase (ALT/SGPT) 18 U/L (test code = 1742-6) [facility] ElizabethSerum or plasma protein measurement (mass/volume) 2019-08-25 02:07:00 Test Item Value Reference Range Interpretation Comments Total Protein (test code = 2885-2) 6.6 g/dL [facility] ElizabethSerum or plasma albumin measurement (mass/volume) 2019-08-25 02:07:00 Test Item Value Reference Range Interpretation Comments Albumin (test code = 1751-7) 3.8 g/dL [facility]Serum or plasma alkaline phosphatase measurement (enzymatic activity/volume)2019-08-25 02:07:00 Test Item Value Reference Range Interpretation Comments Alkaline Phosphatase (test code = 84 U/L 6768-6) [facility]. [facility] hospitalCreat[facility] kinase ser/fpou6874-88-13 02:07:00 Test Item Value Reference Range Interpretation Comments Total Creatine Kinase (test code = 411 U/L 2157-6) [facility] Hospitalerum or plasma free thyroxine (FT4) measurement (mass/volume)2019-08-25 02:07:00 Test Item Value Reference Range Interpretation Comments Free Thyroxine (test code = 0.83 ng/dL 3024-7) [facility] plasma thyrotropin measurement with detection limit of 0.005 mIU/L or less (units/volume)2019-08-25 02:07:00 Test Item Value Reference Range Interpretation Comments Thyroid Stimulating Hormone 1.48 u[iU]/mL (TSH) (test code = 21877-9) [facility]. [facility] Hospitalerum or plasma triiodothyronine (T3) measurement (mass/volume)2019-08-25 02:07:00 Test Item Value Reference Range Interpretation Comments Total Triiodothyronine (test code 0.95 ng/mL = 3053-6) [facility]. [facility]er[facility] or plasma acetaminophen measurement (mass/volume) 2019-08-25 02:07:00 Test Item Value Reference Range Interpretation Comments Acetaminophen Level (test code = < 0.6 ug/mL 3298-7) [facility]. [facility] Hospitalal[facility]ylate ser/fpol7233-06-12 02:07:00 Test Item Value Reference Range Interpretation Comments Salicylates Level (test code = < 5.0 mg/dL 4024-6) [facility]. [facility]er[facility] or plasma ethanol measurement (mass/volume) 2019-08-25 02:07:00 Test Item Value Reference Range Interpretation Comments Ethyl Alcohol Level (test code = < 10 mg/dL 5643-2) [facility] centerAutomated blood leukocyte count (number/volume)2019-08-25 02:07:00 Test Item Value Reference Range Interpretation Comments White Blood Count (test code = 8.9 10*3/uL 6690-2) [facility]Blood [facility] automated count (number/volume) 2019-08-25 02:07:00 Test Item Value Reference Range Interpretation Comments Red Blood Count (test code = 4.10 10*6/uL 789-8) [facility] ElizabethBlood hemoglobin measurement (mass/volume)2019-08-25 02:07:00 Test Item Value Reference Range Interpretation Comments Hemoglobin (test code = 718-7) 13.1 g/dL [facility] ElizabethAutomated blood hematocrit (volume fraction)2019-08-25 02:07:00 Test Item Value Reference Range Interpretation Comments Hematocrit (test code = 4544-3) 37.7 % [facility] ElizabethAutomated erythrocyte mean corpuscular volume (MCV) jispvqvwjhe9015-88-28 02:07:00 Test Item Value Reference Range Interpretation Comments Mean Corpuscular Volume (test code = 92 fL 787-2) [facility] ElizabethAutomated erythrocyte mean corpuscular hemoglobin (mass per erythrocyte)2019-08-25 02:07:00 Test Item Value Reference Range Interpretation Comments Mean Corpuscular Hemoglobin (test 32.0 pg code = 785-6) [facility] ElizabethAutomated erythrocyte mean corpuscular hemoglobin concentration measurement (mass/[id number] 02:07:00 Test Item Value Reference Range Interpretation Comments Mean Corpuscular Hemoglobin Concent 34.7 g/dL (test code = 786-4) [facility] ElizabethAutomated erythrocyte distribution width iuczp6993-97-99 02:07:00 Test Item Value Reference Range Interpretation Comments Red Cell Distribution Width (test code 12.6 % = 788-0) [facility] ElizabethAutomated blood platelet count (count/volume)2019-08-25 02:07:00 Test Item Value Reference Range Interpretation Comments Platelet Count (test code = 228 10*3/uL 777-3) [facility] ElizabethAutomated blood platelet mean volume dpelnpdmmel2856-58-46 02:07:00 Test Item Value Reference Range Interpretation Comments Mean Platelet Volume (test code = 10.0 09228-6) [facility] ElizabethAutomated blood neutrophil count as percentage of total cpshuzvbmx9738-64-21 02:07:00 Test Item Value Reference Range Interpretation Comments Neutrophils (%) (Auto) (test code = 55 % 770-8) [facility] ElizabethAutomated blood immature granulocyte count as percentage of total cdzatnjcrz3849-92-03 02:07:00 Test Item Value Reference Range Interpretation Comments Immature Granulocyte % (Auto) (test 0 % code = 84530-0) [facility] ElizabethAutomated blood lymphocyte count as percentage of total yhhydyqcic2662-45-71 02:07:00 Test Item Value Reference Range Interpretation Comments Lymphocytes (%) (Auto) (test code = 32 % 736-9) [facility]Automated blood monocyte count as percentage of total vtwxzgtfaw1540-94-00 02:07:00 Test Item Value Reference Range Interpretation Comments Monocytes (%) (Auto) (test code = 9 % 5905-5) [facility]Automated blood eosinophil count as percentage of total btdafmtden2898-25-28 02:07:00 Test Item Value Reference Range Interpretation Comments Eosinophils (%) (Auto) (test code = 3 % 713-8) [facility]Automated blood basophil count as percentage of total irzpsvsxlq2483-62-57 02:07:00 Test Item Value Reference Range Interpretation Comments Basophils (%) (Auto) (test code = 1 % 706-2) [facility] ElizabethAutomated blood nucleated erythrocyte count as percentage of total mnrsukbzih8502-64-64 02:07:00 Test Item Value Reference Range Interpretation Comments Nucleated Red Blood Cells % (test code 0.0 % = 45412-1) [facility]Automated blood neutrophil count (number/volume)2019-08-25 02:07:00 Test Item Value Reference Range Interpretation Comments Neutrophils # (Auto) (test code = 4.9 10*3/uL 751-8) [facility] ElizabethAutomated blood immature granulocyte count as percentage of total bawkyewsai3149-92-05 02:07:00 Test Item Value Reference Range Interpretation Comments Immature Granulocyte # (Auto) 0.0 10*3/uL (test code = 17190-4) [facility]Automated blood lymphocyte count (number/volume)2019-08-25 02:07:00 Test Item Value Reference Range Interpretation Comments Lymphocytes # (Auto) (test code = 2.8 10*3/uL 731-0) [facility] monocytes automated count (number/volume)2019-08-25 02:07:00 Test Item Value Reference Range Interpretation Comments Monocytes # (Auto) (test code = 0.8 10*3/uL 742-7) [facility] HospitalAutom[facility] blood eosinophil ezxma7420-03-78 02:07:00 Test Item Value Reference Range Interpretation Comments Eosinophils # (Auto) (test code = 0.3 10*3/uL 711-2) [facility] HospitalAutat[facility]villeed blood basophil count (number/volume)2019-08-25 02:07:00 Test Item Value Reference Range Interpretation Comments Basophils # (Auto) (test code = 0.1 10*3/uL 704-7) [place] [facility] blood nucleated erythrocyte count (count/volume) 2019-08-25 02:07:00 Test Item Value Reference Range Interpretation Comments Nucleated Red Blood Cells # 0.00 10*3/uL (test code = 771-6) [facility] [id number] 02:07:00 Test Item Value Reference Range Interpretation Comments Manual Differential (test code = Not Ind 8265-1) [facility] [id number] 22:40:00 Test Item Value Reference Range Interpretation Comments WHOLE BLOOD GLUCOSE 316 MG/DL 70-99 H Fastin g glucose (test code = POC GLU) normal <100 MG/DL- [employer] recommend ation URINE DRUG [id number] 19:12:00 Test Item Value Reference Range Interpretation [...] prelimenary and confirmation re sults will follow. [id number] 17:27:00 Test Item Value Reference Range Interpretation [...] (test code = UAMICRO) NO WHOLE BLOOD [id number] 17:25:00 Test Item Value Reference Range Interpretation Comments WHOLE BLOOD GLUCOSE 227 MG/DL 70-99 H Fastin g glucose (test code = POC GLU) normal <100 MG/DL- [employer] recommend ation [id number] 15:57:00 Test Item Value Reference Range Interpretation [...] used (test code = ALC BLD) for sd dical purposes (treatment) onl y. Not intended for no n medical purpose s. [id number] 15:06:00 Test Item Value Reference Range Interpretation [...] glucose = GLUCOSE) normal <100 MG/ DL- [employer] recommendation* * CALCIUM (test [...] mL/min/1.73m2 mL/min/1.73m2 is considered norm al. ACETAMINOPHEN [id number] 15:05:00 Test Item Value Reference Range Interpretation Comments ACETAMIN (test code = <10 UG/ML 10-30 Therap utic range is ACETAMIN) 10-30 ug/mL Tox ic range is >200 ug/mL [id number] 15:05:00 Test Item Value Reference Range Interpretation Comments SALICYLA (test code <10.0 mg/L IN TERPRETIVE DATA = SALICYLA) Therapeut ic: <200 mg/L Toxic: >30 0 mg/L Lethal: >600 mg /L Updated: 2009 CHEST 1 VIEW [id number] 14:15:[address] [id number] IMAGING REPORTPatient Name: Arcadio FUENTES of Service: [id number]: [id number] Sex: M Order #: [id number] [facility] 1975 [facility] Number: [id number] Record Number: [id number] Hospital Number: [id number] Physician: HERBER QUICK TANOrdering Physician: ADDIE GENAO 1 VIEW PORTABLE 08/21/2019 2:02 PM:History: Possible aspiration pneumonia. Intoxication with nausea andvomiting.Comp arison: None.Technique: 1 view chestFindings:The cardiomediastinal silhouette is normal. The lungsare clear withoutinfiltrate, effusion, or pneumothorax. The bones are intact.Impression:No acute cardiopulmonary process.Electronically Signed By: Monse Blank M.D., 08/21/2019 2:13 PMLegally authenticated by LUCY SHEA 2019-08-21 14:13:17WHOLE BLOOD [id number] 11:30:00 Test Item Value Reference Range Interpretation Comments WHOLE BLOOD GLUCOSE 175 MG/DL 70-99 H Fastin g glucose (test code = POC GLU) normal <100 MG/DL- [employer] recommend ation WHOLE BLOOD [id number] 05:55:00 Test Item Value Reference Range Interpretation Comments WHOLE BLOOD GLUCOSE 178 MG/DL 70-99 H Fastin g glucose (test code = POC GLU) normal <100 MG/DL- [employer] recommend ation WHOLE BLOOD [id number] 19:45:00 Test Item Value Reference Range Interpretation Comments WHOLE BLOOD GLUCOSE 152 MG/DL 70-99 H Fastin g glucose (test code = POC GLU) normal <100 MG/DL- [employer] recommend ation WHOLE BLOOD [id number] 16:40:00 Test Item Value Reference Range Interpretation Comments WHOLE BLOOD GLUCOSE 175 MG/DL 70-99 H Fastin g glucose (test code = POC GLU) normal <100 MG/DL- [employer] recommend ation WHOLE BLOOD [id number] 12:00:00 Test Item Value Reference Range Interpretation Comments WHOLE BLOOD GLUCOSE 280 MG/DL 70-99 H Fastin g glucose (test code = POC GLU) normal <100 MG/DL- [employer] recommend ation WHOLE BLOOD [id number] 06:20:00 Test Item Value Reference Range Interpretation Comments WHOLE BLOOD GLUCOSE 156 MG/DL 70-99 H Fastin g glucose (test code = POC GLU) normal <100 MG/DL- [employer] recommend ation WHOLE BLOOD [id number] 04:30:00 Test Item Value Reference Range Interpretation Comments WHOLE BLOOD GLUCOSE 187 MG/DL 70-99 H Fastin g glucose (test code = POC GLU) normal <100 MG/DL- [employer] recommend ation VALPROIC [id number] 18:36:00 Test Item Value Reference Range Interpretation Comments VALP (test code = VALP) 94 UG/ML 50-100 WHOLE BLOOD [id number] 16:35:00 Test Item Value Reference Range Interpretation Comments WHOLE BLOOD GLUCOSE 192 MG/DL 70-99 H Fastin g glucose (test code = POC GLU) normal <100 MG/DL- [employer] recommend ation WHOLE BLOOD [id number] 11:30:00 Test Item Value Reference Range Interpretation Comments WHOLE BLOOD GLUCOSE 196 MG/DL 70-99 H Fastin g glucose (test code = POC GLU) normal <100 MG/DL- [employer] recommend ation WHOLE BLOOD [id number] 07:00:00 Test Item Value Reference Range Interpretation Comments WHOLE BLOOD GLUCOSE 226 MG/DL 70-99 H Fastin g glucose (test code = POC GLU) normal <100 MG/DL- [employer] recommend ation WHOLE BLOOD [id number] 19:35:00 Test Item Value Reference Range Interpretation Comments WHOLE BLOOD GLUCOSE 117 MG/DL 70-99 H Fastin g glucose (test code = POC GLU) normal <100 MG/DL- [employer] recommend ation WHOLE BLOOD [id number] 16:15:00 Test Item Value Reference Range Interpretation Comments WHOLE BLOOD GLUCOSE 224 MG/DL 70-99 Fastin g glucose (test code = POC GLU) normal <100 MG/DL- [employer] recommend ation WHOLE BLOOD [id number] 12:15:00 Test Item Value Reference Range Interpretation Comments WHOLE BLOOD GLUCOSE 232 MG/DL 70-99 Fastin g glucose (test code = POC GLU) normal <100 MG/DL- [employer] recommend ation WHOLE BLOOD [id number] 06:35:00 Test Item Value Reference Range Interpretation Comments WHOLE BLOOD GLUCOSE 212 MG/DL 70-99 H Fastin g glucose (test code = POC GLU) normal <100 MG/DL- [employer] recommend ation WHOLE BLOOD [id number] 19:30:00 Test Item Value Reference Range Interpretation Comments WHOLE BLOOD GLUCOSE 96 MG/DL 70-99 Fastin g glucose (test code = POC GLU) normal <100 MG/DL- [employer] recommendation* * WHOLE BLOOD [id number] 16:15:00 Test Item Value Reference Range Interpretation Comments WHOLE BLOOD GLUCOSE 172 MG/DL 70-99 Fastin g glucose (test code = POC GLU) normal <100 MG/DL- [employer] recommend ation WHOLE BLOOD [id number] 11:25:00 Test Item Value Reference Range Interpretation Comments WHOLE BLOOD GLUCOSE 124 MG/DL 70-99 H Fastin g glucose (test code = POC GLU) normal <100 MG/DL- [employer] recommend ation WHOLE BLOOD [id number] 11:25:00 Test Item Value Reference Range Interpretation Comments WHOLE BLOOD GLUCOSE 283 MG/DL 70-99 H Fastin g glucose (test code = POC GLU) normal <100 MG/DL- [employer] recommend ation WHOLE BLOOD [id number] 03:40:00 Test Item Value Reference Range Interpretation Comments WHOLE BLOOD GLUCOSE 119 MG/DL 70-99 H Fastin g glucose (test code = POC GLU) normal <100 MG/DL- [employer] recommend ation WHOLE BLOOD [id number] 16:20:00 Test Item Value Reference Range Interpretation Comments WHOLE BLOOD GLUCOSE 191 MG/DL 70-99 Fastin g glucose (test code = POC GLU) normal <100 MG/DL- [employer] recommend ation WHOLE BLOOD [id number] 11:30:00 Test Item Value Reference Range Interpretation Comments WHOLE BLOOD GLUCOSE 155 MG/DL 70-99 Fastin g glucose (test code = POC GLU) normal <100 MG/DL- [employer] recommend ation WHOLE BLOOD [id number] 06:25:00 Test Item Value Reference Range Interpretation Comments WHOLE BLOOD GLUCOSE 217 MG/DL 70-99 H Fastin g glucose (test code = POC GLU) normal <100 MG/DL- [employer] recommend ation WHOLE BLOOD [id number] 06:25:00 Test Item Value Reference Range Interpretation Comments WHOLE BLOOD GLUCOSE 161 MG/DL 70-99 H Fastin g glucose (test code = POC GLU) normal <100 MG/DL- [employer] recommend ation WHOLE BLOOD [id number] 06:25:00 Test Item Value Reference Range Interpretation Comments WHOLE BLOOD GLUCOSE 223 MG/DL 70-99 H Fastin g glucose (test code = POC GLU) normal <100 MG/DL- [employer] recommend ation WHOLE BLOOD [id number] 11:40:00 Test Item Value Reference Range Interpretation Comments WHOLE BLOOD GLUCOSE 181 MG/DL 70-99 H Fastin g glucose (test code = POC GLU) normal <100 MG/DL- [employer] recommend ation WHOLE BLOOD [id number] 05:55:00 Test Item Value Reference Range Interpretation Comments WHOLE BLOOD GLUCOSE 292 MG/DL 70-99 H Fastin g glucose (test code = POC GLU) normal <100 MG/DL- [employer] recommend ation WHOLE BLOOD [id number] 19:25:00 Test Item Value Reference Range Interpretation Comments WHOLE BLOOD GLUCOSE 84 MG/DL 70-99 Fastin g glucose (test code = POC GLU) normal <100 MG/DL- [employer] recommendation* * WHOLE BLOOD [id number] 16:10:00 Test Item Value Reference Range Interpretation Comments WHOLE BLOOD GLUCOSE 348 MG/DL 70-99 H Fastin g glucose (test code = POC GLU) normal <100 MG/DL- [employer] recommend ation WHOLE BLOOD [id number] 11:20:00 Test Item Value Reference Range Interpretation Comments WHOLE BLOOD GLUCOSE 282 MG/DL 70-99 Fastin g glucose (test code = POC GLU) normal <100 MG/DL- [employer] recommend ation BLOOD [id number] 07:53:00 Test Item Value Reference Range Interpretation Comments Report Text (test [facility] 2019-07-26 1127 code = Report Text) Report Text7 (test BLOOD CULTURES HELD FOR code = Report 5 DAYS BEFORE FINAL Text7) Report Text8 (test code = Report Text8) Report Text9 (test [employer] code = Report MICROBIOLOGY SUGGESTS THAT Text9) Report Text10 (test MOST CASES OF BACTEREMIA code = Report ARE DETECTED BY USING Text10) Report Text11 (test THREE SETS OF SEPARATELY code = Report COLLECTED BLOOD CULTURES. Text11) Report Text12 (test [facility] 2019-07-26 1128 code = Report Text12) [...] code = Report Text17) Report Text18 (test [facility] 2019-07-26 1129 code = Report Text18) Report Text19 (test COLLECTION SITE code = Report UNSPECIFIED Text19) Report Text20 (test [facility] 2019-07-27 645 code = Report Text20) [...] FINAL REPORT code = Report Text30) BLOOD [id number] 07:53:00 Test Item Value Reference Range Interpretation Comments Report Text (test [facility] 2019-07-26 1127 code = Report Text) Report Text7 (test BLOOD CULTURES HELD FOR code = Report 5 DAYS BEFORE FINAL Text7) Report Text8 (test code = Report Text8) Report Text9 (test [employer] code = Report MICROBIOLOGY SUGGESTS THAT Text9) Report Text10 (test MOST CASES OF BACTEREMIA code = Report ARE DETECTED BY USING Text10) Report Text11 (test THREE SETS OF SEPARATELY code = Report COLLECTED BLOOD CULTURES. Text11) Report Text12 (test [facility] 2019-07-26 1128 code = Report Text12) [...] code = Report Text17) Report Text18 (test [facility] 2019-07-26 1129 code = Report Text18) Report Text19 (test COLLECTION SITE code = Report UNSPECIFIED Text19) Report Text20 (test [facility] 2019-07-27 645 code = Report Text20) Report [...] code = Report Text30) HEPATITIS C ANTIBODY [id number] 19:39:00 Test Item Value Reference Range Interpretation [...] confirmation re sults will follow. URINE DRUG [id number] 18:14:00 Test Item Value Reference Range Interpretation [...] intended for no n medical purpose s. [id number] 18:14:00 Test Item Value Reference Range Interpretation [...] glucose = GLUCOSE) normal <100 MG/ DL- [employer] recommendation* * CALCIUM (test [...] mL/min/1.73m2 mL/min/1.73m2 is considered norm al. CREATINE [id number] 18:14:00 Test Item Value Reference Range Interpretation Comments CK (test code = CK) 545 U/L 55-170 H [id number] 17:51:00 Test Item Value Reference Range Interpretation [...] 1.000-1.025 UAMICRO (test code = UAMICRO) NO [id number] 17:40:00 Test Item Value Reference Range Interpretation [...] 5.2 K/UL 1.2-7.2 = NEUT) Creatine kinase ser/[id number] 00:48:00 Test Item Value Reference Range Interpretation Comments Total Creatine Kinase (test code = 854 U/L 7-6) [facility] sediment leukocyte count by microscopy (number/high power field)2019-07-29 20:33:00 Test Item Value Reference Range Interpretation Comments Urine WBC (test code = 5821-4) 0-5 /[HPF] [facility] epithelial cell count by microscopy (number/high power field)2019-07-29 20:33:00 Test Item Value Reference Range Interpretation Comments Urine Epithelial Cells (test None Seen /[HPF] code = 5787-7) [facility] crystal count by microscopy (number/high power field)2019-07-29 20:33:00 Test Item Value Reference Range Interpretation Comments Urine Crystals (test code = None Seen /[HPF] 97903-1) [facility] bacteria count by microscopy (number/high power field)2019-07-29 20:33:00 Test Item Value Reference Range Interpretation Comments Urine Bacteria (test code = None Seen /[HPF] 5769-5) [facility] casts count by microscopy (number/low power field)2019-07-29 20:33:00 Test Item Value Reference Range Interpretation Comments Urine Casts (test code = Present /[LPF] 9842-6) [facility] sediment hyaline cast count by microscopy (number/low power field)2019-07-29 20:33:00 Test Item Value Reference Range Interpretation Comments Urine Hyaline Casts (test code = 0-1 /[LPF] 5796-8) [facility] detection in urine sediment by light microscopy 2019-07-29 20:33:00 Test Item Value Reference Range Interpretation Comments Urine Yeast (test code = None Seen /[HPF] 51435-5) [facility] 20:33:00 Test Item Value Reference Range Interpretation Comments Urinalysis Comment (test code = 8262-8) * [facility] 20:33:00 Test Item Value Reference Range Interpretation Comments Urine Culture Indicated (test code = Not Ind 8264-4) [facility] [id number] 20:33:00 Test Item Value Reference Range Interpretation Comments Urine Methamphetamines Screen Negative ng/mL (test code = 11216-9) [facility] propoxyphene screening [id number] 20:33:00 Test Item Value Reference Range Interpretation Comments Urine Propoxyphene Screen Negative ng/mL (test code = 43094-8) [facility] amphetamines detection by screening [id number] 20:33:00 Test Item Value Reference Range Interpretation Comments Urine Amphetamines Screen Negative ng/mL (test code = 86992-0) [facility] buprenorphine screen with reflex confirmation 2019-07-29 20:33:00 Test Item Value Reference Range Interpretation Comments Urine Buprenorphine (test code Negative ng/mL = 3414-0) [facility] barbiturates detection by screening [id number] 20:33:00 Test Item Value Reference Range Interpretation Comments Urine Barbiturates Screen Negative ng/mL (test code = 43659-7) [facility] benzodiazepines detection by screening method 2019-07-29 20:33:00 Test Item Value Reference Range Interpretation Comments Urine Benzodiazepines Screen Negative ng/mL (test code = 50522-2) [facility] benzoylecgonine detection by screening method 2019-07-29 20:33:00 Test Item Value Reference Range Interpretation Comments Urine Cocaine Screen (test Negative ng/mL code = 14757-8) [facility] methadone [id number] 20:33:00 Test Item Value Reference Range Interpretation Comments Urine Methadone, Qualitative Negative ng/mL (test code = 31226-5) [facility] opiates screening [id number] 20:33:00 Test Item Value Reference Range Interpretation Comments Urine Opiates Screen (test Negative ng/mL code = 90174-9) [facility] phencyclidine detection by screening method 2019-07-29 20:33:00 Test Item Value Reference Range Interpretation Comments Urine Phencyclidine Screen Negative ng/mL (test code = 07835-3) [facility] cannabinoids detection by screening [id number] 20:33:00 Test Item Value Reference Range Interpretation Comments Urine Cannabinoids (test code Negative ng/mL = 82667-4) [facility] urine tricyclic antidepressants detection 2019-07-29 20:33:00 Test Item Value Reference Range Interpretation Comments Ur Tricyclic Antidepressants Negative ng/mL Screen (test code = 57870-2) [facility] oxycodone detection by screening [id number] 20:33:00 Test Item Value Reference Range Interpretation Comments Urine Oxycodone Screen (test Negative ng/mL code = 36432-8) [facility]ominazabethSpecific gravity of Urine by Automated test strip 2019-07-29 20:33:00 Test Item Value Reference Range Interpretation Comments Urine Specific [place] (test code = 1.006 80423-6) [facility] pH measurement by automated test [id number] 20:33:00 Test Item Value Reference Range Interpretation Comments Urine pH (test code = 37941-0) 6.[address] [facility] drug screen comment [id number] 20:33:00 Test Item Value Reference Range Interpretation Comments Urine Drug Screen Comment (test code See Note = 87287-7) [facility] methamphetamine [id number] 20:33:00 Test Item Value Reference Range Interpretation Comments Urine Methamphetamines Screen Negative ng/mL (test code = 85539-6) [facility] propoxyphene screening [id number] 20:33:00 Test Item Value Reference Range Interpretation Comments Urine Propoxyphene Screen Negative ng/mL (test code = 89202-0) [facility] amphetamines detection by screening [id number] 20:33:00 Test Item Value Reference Range Interpretation Comments Urine Amphetamines Screen Negative ng/mL (test code = 65788-0) [facility] buprenorphine screen with reflex confirmation 2019-07-29 20:33:00 Test Item Value Reference Range Interpretation Comments Urine Buprenorphine (test code Negative ng/mL = 3414-0) [facility] barbiturates detection by screening [id number] 20:33:00 Test Item Value Reference Range Interpretation Comments Urine Barbiturates Screen Negative ng/mL (test code = 53869-5) [facility] benzodiazepines detection by screening method 2019-07-29 20:33:00 Test Item Value Reference Range Interpretation Comments Urine Benzodiazepines Screen Negative ng/mL (test code = 30575-7) [facility] benzoylecgonine detection by screening method 2019-07-29 20:33:00 Test Item Value Reference Range Interpretation Comments Urine Cocaine Screen (test Negative ng/mL code = 21105-2) [facility] methadone [id number] 20:33:00 Test Item Value Reference Range Interpretation Comments Urine Methadone, Qualitative Negative ng/mL (test code = 19325-0) [facility] opiates screening [id number] 20:33:00 Test Item Value Reference Range Interpretation Comments Urine Opiates Screen (test Negative ng/mL code = 22372-2) [facility] phencyclidine detection by screening method 2019-07-29 20:33:00 Test Item Value Reference Range Interpretation Comments Urine Phencyclidine Screen Negative ng/mL (test code = 37254-3) [facility] cannabinoids detection by screening [id number] 20:33:00 Test Item Value Reference Range Interpretation Comments Urine Cannabinoids (test code Negative ng/mL = 61341-9) [facility] Romero. PollothScreening urine tricyclic antidepressants detection 2019-07-29 20:33:00 Test Item Value Reference Range Interpretation Comments Ur Tricyclic Antidepressants Negative ng/mL Screen (test code = 05856-2) [facility] Romero. AnamikaUrine oxycodone detection by screening [id number] 20:33:00 Test Item Value Reference Range Interpretation Comments Urine Oxycodone Screen (test Negative ng/mL code = 14634-7) KASH Webberpecific gravity of Urine by Automated test strip 2019-07-29 20:33:00 Test Item Value Reference Range Interpretation Comments Urine Specific [place] (test code = 1.006 19625-6) KASH YangUrine pH measurement by automated test [id number] 20:33:00 Test Item Value Reference Range Interpretation Comments Urine pH (test code = 33197-4) 6.5 [facility] AnamikaUrine drug screen comment [id number] 20:33:00 Test Item Value Reference Range Interpretation Comments Urine Drug Screen Comment (test code See Note = 54386-9) KASH YangAutomated blood leukocyte count (number/volume)2019-07-29 20:33:00 Test Item Value Reference Range Interpretation Comments White Blood Count (test code = 7.5 10*3/uL 6690-2) KASH YangBlood erythrocytes automated count (number/volume) 2019-07-29 20:33:00 Test Item Value Reference Range Interpretation Comments Red Blood Count (test code = 4.27 10*6/uL 789-8) K[facility] Romero. AnamikaBlood hemoglobin measurement (mass/volume)2019-07-29 20:33:00 Test Item Value Reference Range Interpretation Comments Hemoglobin (test code = 718-7) 13.6 g/dL [facility] JesusbenilesAutomated blood hematocrit (volume fraction)2019-07-29 20:33:00 Test Item Value Reference Range Interpretation Comments Hematocrit (test code = 4544-3) 38.4 % [facility] Romero. Maria De JesusbenilesAutomated erythrocyte mean corpuscular volume (MCV) [id number] 20:33:00 Test Item Value Reference Range Interpretation Comments Mean Corpuscular Volume (test code = 90 fL 787-2) [facility] ElizabethAutom[facility] erythrocyte mean corpuscular hemoglobin (mass per erythrocyte)2019-07-29 20:33:00 Test Item Value Reference Range Interpretation Comments Mean Corpuscular Hemoglobin (test 31.9 pg code = 785-6) [facility] ElizabethAutomated erythrocyte mean corpuscular hemoglobin concentration measurement (mass/[id number] 20:33:00 Test Item Value Reference Range Interpretation Comments Mean Corpuscular Hemoglobin Concent 35.4 g/dL (test code = 786-4) [facility] ElizabethAutomated erythrocyte distribution width [id number] 20:33:00 Test Item Value Reference Range Interpretation Comments Red Cell Distribution Width (test code 12.0 % = 788-0) [facility] ElizabethAutomated blood platelet count (count/volume)2019-07-29 20:33:00 Test Item Value Reference Range Interpretation Comments Platelet Count (test code = 292 10*3/uL 777-3) [facility] ElizabethAutomated blood platelet mean volume [id number] 20:33:00 Test Item Value Reference Range Interpretation Comments Mean Platelet Volume (test code = 9.9 20389-0) [facility] ElizabethAutomated blood neutrophil count as percentage of total [id number] 20:33:00 Test Item Value Reference Range Interpretation Comments Neutrophils (%) (Auto) (test code = 51 % 770-8) [facility] ElizabethAutomated blood immature granulocyte count as percentage of total zwvcfrmtah6103-09-28 20:33:00 Test Item Value Reference Range Interpretation Comments Immature Granulocyte % (Auto) (test 1 % code = 29085-5) [facility] ElizabethAutomated blood lymphocyte count as percentage of total oedeykhmmf7779-36-36 20:33:00 Test Item Value Reference Range Interpretation Comments Lymphocytes (%) (Auto) (test code = 33 % 736-9) [facility] ElizabethAutomated blood monocyte count as percentage of total abweywzssy6967-49-80 20:33:00 Test Item Value Reference Range Interpretation Comments Monocytes (%) (Auto) (test code = 10 % 5905-5) [facility] ElizabethAutomated blood eosinophil count as percentage of total udvrrgamse6005-18-27 20:33:00 Test Item Value Reference Range Interpretation Comments Eosinophils (%) (Auto) (test code = 4 % 713-8) [facility] [facility] ElizabethAutomated blood basophil count as percentage of total [id number] 20:33:00 Test Item Value Reference Range Interpretation Comments Basophils (%) (Auto) (test code = 1 % 706-2) [facility]. ElizabethAutomated blood nucleated erythrocyte count as percentage of total [id number] 20:33:00 Test Item Value Reference Range Interpretation Comments Nucleated Red Blood Cells % (test code 0.0 % = 32789-2) [facility]. ElizabethAutomated blood neutrophil count (number/volume)2019-07-29 20:33:00 Test Item Value Reference Range Interpretation Comments Neutrophils # (Auto) (test code = 3.8 10*3/uL 751-8) [facility]. ElibethAutomated blood immature granulocyte count as percentage of total upyhtzpklv8428-92-24 20:33:00 Test Item Value Reference Range Interpretation Comments Immature Granulocyte # (Auto) 0.0 10*3/uL (test code = 01697-3) [facility]. ElibeAutomated blood lymphocyte count (number/volume)2019-07-29 20:33:00 Test Item Value Reference Range Interpretation Comments Lymphocytes # (Auto) (test code = 2.5 10*3/uL 731-0) [facility] count (number/volume)2019-07-29 20:33:00 Test Item Value Reference Range Interpretation Comments Monocytes # (Auto) (test code = 0.8 10*3/uL 742-7) [facility] ElizabethAutomated blood eosinophil [id number] 20:33:00 Test Item Value Reference Range Interpretation Comments Eosinophils # (Auto) (test code = 0.3 10*3/uL 711-2) [facility]. ElizabethAutomated blood basophil count (number/volume)2019-07-29 20:33:00 Test Item Value Reference Range Interpretation Comments Basophils # (Auto) (test code = 0.1 10*3/uL 704-7) [facility] AnamikaAutomated blood nucleated erythrocyte count (count/volume) 2019-07-29 20:33:00 Test Item Value Reference Range Interpretation Comments Nucleated Red Blood Cells # 0.00 10*3/uL (test code = 771-6) [facility] comment [id number] 20:33:00 Test Item Value Reference Range Interpretation Comments Manual Differential (test code = Not Ind 8265-1) [facility] AnamikaUrinalysis specimen collection [id number] 20:33:00 Test Item Value Reference Range Interpretation Comments Urine Source (test code = 72924-7) URINE [facility] JesusbeColor of Urine by [id number] 20:33:00 Test Item Value Reference Range Interpretation Comments Urine Color (test code = 44736-7) Colorless [facility] ElifunmibethUrine clarity [id number] 20:33:00 Test Item Value Reference Range Interpretation Comments Urine Appearance (test code = 60147-6) Clear [facility] PollothUrine pH measurement by automated test [id number] 20:33:00 Test Item Value Reference Range Interpretation Comments Urine pH (test code = 27588-8) 6.[address] [facility] JesusbethSpecific gravity of Urine by Automated test strip 2019-07-29 20:33:00 Test Item Value Reference Range Interpretation Comments Urine Specific Sterling (test code = 1.006 20705-9) [facility] ElifunmibethUrine protein measurement by automated test strip (mass/volume)2019-07-29 20:33:00 Test Item Value Reference Range Interpretation Comments Urine Protein (test code = Negative mg/dL 07348-9) [facility] ElizabethUrine glucose measurement by automated test strip (mass/volume)2019-07-29 20:33:00 Test Item Value Reference Range Interpretation Comments Urine Glucose (UA) (test code = >1000 mg/dL 16711-4) [facility] ElizabethUrine ketones measurement by automated test strip (mass/volume)2019-07-29 20:33:00 Test Item Value Reference Range Interpretation Comments Urine Ketones (test code = Negative mg/dL 91224-2) [facility] ElifunmibethUrine erythrocytes count by automated test strip (number/volume)2019-07-29 20:33:00 Test Item Value Reference Range Interpretation Comments Urine Occult Blood (test code = Negative 33865-7) [facility] ElizabethUrine nitrite detection by automated test [id number] 20:33:00 Test Item Value Reference Range Interpretation Comments Urine Nitrite (test code = 60737-0) Negative [facility] ElifunmibethUrine total bilirubin measurement by automated test strip (mass/volume)2019-07-29 20:33:00 Test Item Value Reference Range Interpretation Comments Urine Bilirubin (test code = Negative mg/dL 43564-7) [facility] ElifunmibethUrine urobilinogen measurement by automated test strip (mass/volume)2019-07-29 20:33:00 Test Item Value Reference Range Interpretation Comments Urine Urobilinogen (test code Negative mg/dL = 90333-7) [facility] ElifunmibethUrine leukocytes count by automated test strip (number/volume)2019-07-29 20:33:00 Test Item Value Reference Range Interpretation Comments Urine Leukocyte Esterase Negative {Janie}/uL (test code = 79185-9) [facility] ElifunmibethMicroscopic examination of [id number] 20:33:00 Test Item Value Reference Range Interpretation Comments Microscopic Urinalysis (T) (test code = ----- 35294-7) [facility] ElifunmibethUrine sediment erythrocyte count by microscopy (number/high power field)2019-07-29 20:33:00 Test Item Value Reference Range Interpretation Comments Urine RBC (test code = 53098-4) 0-2 /[HPF] [facility] ElizabethUrine sediment leukocyte count by microscopy (number/high power field)2019-07-29 20:33:00 Test Item Value Reference Range Interpretation Comments Urine WBC (test code = 5821-4) 0-5 /[HPF] [facility] ElizabethUrine sediment epithelial cell count by microscopy (number/high power field)2019-07-29 20:33:00 Test Item Value Reference Range Interpretation Comments Urine Epithelial Cells (test None Seen /[HPF] code = 5787-7) [facility] ElizabethUrine sediment crystal count by microscopy (number/high power field)2019-07-29 20:33:00 Test Item Value Reference Range Interpretation Comments Urine Crystals (test code = None Seen /[HPF] 88387-8) [facility] ElizadebUrine sediment bacteria count by microscopy (number/high power field)2019-07-29 20:33:00 Test Item Value Reference Range Interpretation Comments Urine Bacteria (test code = None Seen /[HPF] 5769-5) [facility] ElizabethUrine sediment casts count by microscopy (number/low power field)2019-07-29 20:33:00 Test Item Value Reference Range Interpretation Comments Urine Casts (test code = Present /[LPF] 9842-6) [facility] AnamikaUrine sediment hyaline cast count by microscopy (number/low power field)2019-07-29 20:33:00 Test Item Value Reference Range Interpretation Comments Urine Hyaline Casts (test code = 0-1 /[LPF] 5796-8) [facility] PollothYeast detection in urine sediment by light microscopy 2019-07-29 20:33:00 Test Item Value Reference Range Interpretation Comments Urine Yeast (test code = None Seen /[HPF] 22167-1) [facility] ElizabethService comment 20:33:00 Test Item Value Reference Range Interpretation Comments Urinalysis Comment (test code = 8262-8) * [facility] ElizabethService comment 20:33:00 Test Item Value Reference Range Interpretation Comments Urine Culture Indicated (test code = Not Ind 8264-4) [facility] ElizabethSerum or plasma sodium measurement (moles/volume) 2019-07-29 20:33:00 Test Item Value Reference Range Interpretation Comments Sodium Level (test code = 2951-2) 137 mmol/L [facility] ElizabethSerum or plasma potassium measurement (moles/volume) 2019-07-29 20:33:00 Test Item Value Reference Range Interpretation Comments Potassium Level (test code = 3.7 mmol/L 2823-3) [facility] ElizabethSerum or plasma chloride measurement (moles/volume) 2019-07-29 20:33:00 Test Item Value Reference Range Interpretation Comments Chloride Level (test code = 100 mmol/L 2074-0) [facility]Ser[facility] or plasma total carbon dioxide measurement (moles/volume)2019-07-29 20:33:00 Test Item Value Reference Range Interpretation Comments Carbon Dioxide Level (test code = 25 mmol/L 2027-12) [facility] ElizabethSerum or plasma anion gap determination (moles/volume) 2019-07-29 20:33:00 Test Item Value Reference Range Interpretation Comments Anion Gap (test code = 55409-2) [address] ElizabethSerum or plasma urea nitrogen measurement (mass/volume) 2019-07-29 20:33:00 Test Item Value Reference Range Interpretation Comments Blood Urea Nitrogen (test code = 8 mg/dL 3094-0) [facility]Serum or plasma creatinine measurement (mass/volume) 2019-07-29 20:33:00 Test Item Value Reference Range Interpretation Comments Creatinine (test code = 2160-0) 1.0 mg/dL [facility] ElizabethGFR estimate [id number] 20:33:00 Test Item Value Reference Range Interpretation Comments Estimat Glomerular Filtration Rate 87 (test code = 34235-6) [facility] ElizabethSerum or plasma glucose measurement (mass/volume) 2019-07-29 20:33:00 Test Item Value Reference Range Interpretation Comments Glucose Level (test code = 2345-7) 292 mg/dL [facility] ElizabethSerum or plasma calcium measurement (mass/volume) 2019-07-29 20:33:00 Test Item Value Reference Range Interpretation Comments Calcium Level (test code = 36884-4) 9.3 mg/dL [facility] ElizabethSerum or plasma total bilirubin measurement (mass/volume) 2019-07-29 20:33:00 Test Item Value Reference Range Interpretation Comments Total Bilirubin (test code = 0.2 mg/dL 1974-) [facility] ElizabethSerum or plasma aspartate aminotransferase measurement (enzymatic activity/volume)2019-07-29 20:33:00 Test Item Value Reference Range Interpretation Comments Aspartate Amino Transf (AST/SGOT) 32 U/L (test code = 1920-8) [facility]Serum or plasma alanine aminotransferase measurement (enzymatic activity/volume)2019-07-29 20:33:00 Test Item Value Reference Range Interpretation Comments Alanine Aminotransferase (ALT/SGPT) 30 U/L (test code = 1742-6) [facility] ElizabethSerum or plasma protein measurement (mass/volume) 2019-07-29 20:33:00 Test Item Value Reference Range Interpretation Comments Total Protein (test code = 2885-2) 7.7 g/dL [facility]Brad[facility] Hospitalerum or plasma albumin measurement (mass/volume) 2019-07-29 20:33:00 Test Item Value Reference Range Interpretation Comments Albumin (test code = 1751-7) 4.3 g/dL [facility] alkaline phosphatase measurement (enzymatic activity/volume)2019-07-29 20:33:00 Test Item Value Reference Range Interpretation Comments Alkaline Phosphatase (test code = 83 U/L 6768-6) [facility]. [facility] Hospitalerum or plasma free thyroxine (FT4) measurement (mass/volume)2019-07-29 20:33:00 Test Item Value Reference Range Interpretation Comments Free Thyroxine (test code = 0.79 ng/dL 3024-7) [facility]. [facility] or plasma thyrotropin measurement with detection limit of 0.005 mIU/L or less (units/volume)2019-07-29 20:33:00 Test Item Value Reference Range Interpretation Comments Thyroid Stimulating Hormone 1.27 u[iU]/mL (TSH) (test code = 46654-6) [facility]. [facility]beBrad[facility] Hospitalerum or plasma triiodothyronine (T3) measurement (mass/volume)2019-07-29 20:33:00 Test Item Value Reference Range Interpretation Comments Total Triiodothyronine (test code 0.88 ng/mL = 3053-6) [facility]. [facility] or plasma acetaminophen measurement (mass/volume) 2019-07-29 20:33:00 Test Item Value Reference Range Interpretation Comments Acetaminophen Level (test code = < 0.6 ug/mL 3298-7) [facility]. [facility] Hospitalalicylate ser/[id number] 20:33:00 Test Item Value Reference Range Interpretation Comments Salicylates Level (test code = < 5.0 mg/dL 4024-6) [facility]. ElizabethSerum or plasma ethanol measurement (mass/volume) 2019-07-29 20:33:00 Test Item Value Reference Range Interpretation Comments Ethyl Alcohol Level (test code = < 10 mg/dL 5643-2) [facility] RominazabethUrine methamphetamine [id number] 20:33:00 Test Item Value Reference Range Interpretation Comments Urine Methamphetamines Screen Negative ng/mL (test code = 98493-9) [facility] propoxyphene screening [id number] 20:33:00 Test Item Value Reference Range Interpretation Comments Urine Propoxyphene Screen Negative ng/mL (test code = 00074-2) [facility] ElizabethUrine amphetamines detection by screening [id number] 20:33:00 Test Item Value Reference Range Interpretation Comments Urine Amphetamines Screen Negative ng/mL (test code = 56227-1) [facility] with reflex confirmation 2019-07-29 20:33:00 Test Item Value Reference Range Interpretation Comments Urine Buprenorphine (test code Negative ng/mL = 3414-0) [facility] PollothUrine barbiturates detection by screening [id number] 20:33:00 Test Item Value Reference Range Interpretation Comments Urine Barbiturates Screen Negative ng/mL (test code = 72995-8) [facility] JesusbethUrine benzodiazepines detection by screening method 2019-07-29 20:33:00 Test Item Value Reference Range Interpretation Comments Urine Benzodiazepines Screen Negative ng/mL (test code = 74523-5) [facility] JesusbeUrine benzoylecgonine detection by screening method 2019-07-29 20:33:00 Test Item Value Reference Range Interpretation Comments Urine Cocaine Screen (test Negative ng/mL code = 49622-9) [facility] ElizabethUrine methadone [id number] 20:33:00 Test Item Value Reference Range Interpretation Comments Urine Methadone, Qualitative Negative ng/mL (test code = 71355-6) [facility] opiates screening [id number] 20:33:00 Test Item Value Reference Range Interpretation Comments Urine Opiates Screen (test Negative ng/mL code = 69371-0) [facility]beUrine phencyclidine detection by screening method 2019-07-29 20:33:00 Test Item Value Reference Range Interpretation Comments Urine Phencyclidine Screen Negative ng/mL (test code = 99769-8) [facility] ElizabethUrine cannabinoids detection by screening [id number] 20:33:00 Test Item Value Reference Range Interpretation Comments Urine Cannabinoids (test code Negative ng/mL = 07229-3) [facility] ElizabethScreening urine tricyclic antidepressants detection 2019-07-29 20:33:00 Test Item Value Reference Range Interpretation Comments Ur Tricyclic Antidepressants Negative ng/mL Screen (test code = 55460-7) [facility] ElizabethUrine oxycodone detection by screening [id number] 20:33:00 Test Item Value Reference Range Interpretation Comments Urine Oxycodone Screen (test Negative ng/mL code = 57503-6) [facility] ElizabethSpecific gravity of Urine by Automated test strip 2019-07-29 20:33:00 Test Item Value Reference Range Interpretation Comments Urine Specific Sterling (test code = 1.006 33819-3) [facility] ElizabethUrine pH measurement by automated test [id number] 20:33:00 Test Item Value Reference Range Interpretation Comments Urine pH (test code = 87307-5) 6.[address] ElizabethUrine drug screen comment [id number] 20:33:00 Test Item Value Reference Range Interpretation Comments Urine Drug Screen Comment (test code See Note = 24931-1) [facility] ElizabethUrinalysis specimen collection [id number] 20:33:00 Test Item Value Reference Range Interpretation Comments Urine Source (test code = 25793-6) URINE [facility] ElizabethColor of Urine by [id number] 20:33:00 Test Item Value Reference Range Interpretation Comments Urine Color (test code = 49215-4) Colorless [facility] ElizabethUrine clarity [id number] 20:33:00 Test Item Value Reference Range Interpretation Comments Urine Appearance (test code = 77628-2) Clear [facility] ElizabethUrine pH measurement by automated test [id number] 20:33:00 Test Item Value Reference Range Interpretation Comments Urine pH (test code = 66781-9) 6.5 [facility]neyBradley Hospitalpecific gravity of Urine by Automated test strip 2019-07-29 20:33:00 Test Item Value Reference Range Interpretation Comments Urine Specific Sterling (test code = 1.006 68885-0) [facility] AnamikaUrine protein measurement by automated test strip (mass/volume)2019-07-29 20:33:00 Test Item Value Reference Range Interpretation Comments Urine Protein (test code = Negative mg/dL 04370-8) [facility] PollothUrine glucose measurement by automated test strip (mass/volume)2019-07-29 20:33:00 Test Item Value Reference Range Interpretation Comments Urine Glucose (UA) (test code = >1000 mg/dL 80417-3) [facility] AnamikaUrine ketones measurement by automated test strip (mass/volume)2019-07-29 20:33:00 Test Item Value Reference Range Interpretation Comments Urine Ketones (test code = Negative mg/dL 35386-5) [facility] erythrocytes count by automated test strip (number/volume)2019-07-29 20:33:00 Test Item Value Reference Range Interpretation Comments Urine Occult Blood (test code = Negative 58297-0) [facility] PolloUrine nitrite detection by automated test [id number] 20:33:00 Test Item Value Reference Range Interpretation Comments Urine Nitrite (test code = 15727-6) Negative [facility] AnamikaUrine total bilirubin measurement by automated test strip (mass/volume)2019-07-29 20:33:00 Test Item Value Reference Range Interpretation Comments Urine Bilirubin (test code = Negative mg/dL 41649-4) [facility] PollothUrine urobilinogen measurement by automated test strip (mass/volume)2019-07-29 20:33:00 Test Item Value Reference Range Interpretation Comments Urine Urobilinogen (test code Negative mg/dL = 29611-5) [facility] PollothUrine leukocytes count by automated test strip (number/volume)2019-07-29 20:33:00 Test Item Value Reference Range Interpretation Comments Urine Leukocyte Esterase Negative {Janie}/uL (test code = 29375-1) [facility] JesusbeMicroscopic examination of [id number] 20:33:00 Test Item Value Reference Range Interpretation Comments Microscopic Urinalysis (T) (test code = ----- 31580-7) [facility] sediment erythrocyte count by microscopy (number/high power field)2019-07-29 20:33:00 Test Item Value Reference Range Interpretation Comments Urine RBC (test code = 96230-4) 0-2 /[HPF] [facility] [id number] 22:32:09 Test Item Value Reference Range Interpretation Comments Glucose POC (test 264 mg/dL 74-106 H POC Glucos e used on code = Glucose POC) critical ly ill patients is considered " off-label use" and has no t been cleared or appr leonel by the FDA. Altern ative testing methods should be considered i f the patient is crit ically ill. WHOLE BLOOD [id number] 19:35:00 Test Item Value Reference Range Interpretation Comments WHOLE BLOOD GLUCOSE 399 MG/DL 70-99 Fastin g glucose (test code = POC GLU) normal <100 MG/DL- [employer] recommend ation NEG STREP SCRN CONFIRM [id number] 10:23:00 Test Item Value Reference Range Interpretation [...] code = Report REPORT. Text12) WHOLE BLOOD [id number] 06:10:00 Test Item Value Reference Range Interpretation Comments WHOLE BLOOD GLUCOSE 259 MG/DL 70-99 H Fastin g glucose (test code = POC GLU) normal <100 MG/DL- [employer] recommend ation RPR [id number] 17:40:00 Test Item Value Reference Range Interpretation Comments SCREEN RPR (test NONREACTIVE NONREACTIVE code = SCRN RPR) NR = NON-REACTIVE R = REACTIVE HEPATITIS C ANTIBODY [id number] 16:34:00 Test Item Value Reference Range Interpretation [...] confirmation re sults will follow. WHOLE BLOOD [id number] 11:50:00 Test Item Value Reference Range Interpretation Comments WHOLE BLOOD GLUCOSE 384 MG/DL 70-99 H Fastin g glucose (test code = POC GLU) normal <100 MG/DL- [employer] recommend ation LIPID [id number] 08:25:00 Test Item Value Reference Range Interpretation [...] 59 MG/DL <100 CALC LDL) THYROID STIMULATION [id number] 08:25:00 Test Item Value Reference Range Interpretation Comments TSH (test code = TSH) 1.17 UIU/ML 0.465-4.68 WHOLE BLOOD [id number] 07:55:00 Test Item Value Reference Range Interpretation Comments WHOLE BLOOD GLUCOSE 328 MG/DL 70-99 Fastin g glucose (test code = POC GLU) normal <100 MG/DL- [employer] recommend ation WHOLE BLOOD [id number] 07:55:00 Test Item Value Reference Range Interpretation Comments WHOLE BLOOD GLUCOSE 240 MG/DL 70-99 Fastin g glucose (test code = POC GLU) normal <100 MG/DL- [employer] recommend ation % HEMOGLOBIN A1C (GLYCATED)2019-07-27 07:52:00 Test Item Value Reference Range Interpretation Comments HEMOGLOBIN A1C (test 10.2 % 0-6 H TH ERAPEUTIC TARGET code = GLYCO-) FOR THE TREAT MENT OF DIABETES M GATO PATIENTS IS < 7 % HBA1C. [employer] DIABETES CARE 2002;25:S33-S49 CREATINE [id number] 18:38:00 Test Item Value Reference Range Interpretation Comments CK (test code = CK) 965 U/L 55-170 H CREATINE [id number] 15:35:00 Test Item Value Reference Range Interpretation Comments CK (test code = CK) 1122 U/L 55-170 H URINE DRUG [id number] 15:27:00 Test Item Value Reference Range Interpretation [...] code = NEGATIVE NEGATIVE BMTPCP) WHOLE BLOOD [id number] 15:10:00 Test Item Value Reference Range Interpretation Comments WHOLE BLOOD GLUCOSE 288 MG/DL 70-99 H Fastin g glucose (test code = POC GLU) normal <100 MG/DL- [employer] recommend ation [id number] 13:28:00 Test Item Value Reference Range Interpretation [...] code = UAMICRO) NO PROTHROMBIN TIME WITH [id number] 13:26:00 Test Item Value Reference Range Interpretation Comments PROTHROMBIN TIME 10.5 SECONDS 10.1-12.7 INR Usual R blaise = 2 (test code = PT) to 3 for pr evention of deep vein thrombosis (DVT ) INR (test code = INR) 0.9 [id number] 13:26:00 Test Item Value Reference Range Interpretation Comments PTT (test code = 29.4 SECONDS 25.0-36.5 HEPARIN THE RAPEUTIC PTT) RANGE 57-92 SEC ONDS D-DIMER, [id number] 13:25:00 Test Item Value Reference Range Interpretation Comments D-DIMER (test 152 ng/mL (FEU) 0-500 VALUES OF Q UANTITATIVE code = DDIMER) D-DIMER LESS THAN 499 ng/mL HAVE BEEN REPORTED TO BE ASSOCIATED WITH A LOW PROBABILITY OF DEEP VEIN THROMBOSIS/PULM ONARYEMB OLISM. THIS BRENDA T ALONE SHOULD NOT BE U SED TO RULE OUT DVT/PE . [id number] 12:15:00 Test Item Value Reference Range Interpretation [...] code 3.6 K/UL 1.2-7.2 = NEUT) C-REACTIVE [id number] 12:14:00 Test Item Value Reference Range Interpretation Comments CRP (test code = CRP) <0.5 mg/dL 0.5-1.0 [id number] 12:14:00 Test Item Value Reference Range Interpretation [...] glucose = GLUCOSE) normal <100 MG/ DL- [employer] recommendation* * CALCIUM (test [...] mL/min/1.73m2 mL/min/1.73m2 is considered norm al. CREATINE [id number] 12:14:00 Test Item Value Reference Range Interpretation Comments CK (test code = CK) 2046 U/L 55-170 H [id number] 12:14:00 Test Item Value Reference Range Interpretation Comments FERRITIN (test code = FERR) 136 NG/ML 18-464 [id number] 12:14:00 Test Item Value Reference Range Interpretation Comments LDH (test code = LDH) 705 U/L 313-618 H BLOOD ALCOHOL (ETOH)2019-07-26 12:14:00 Test Item Value Reference Range Interpretation Comments ALCOHOL BLOOD LEVEL <10 MG/DL 0-10 Results are to be used (test code = ALC BLD) for me dical purposes (treatment) onl y. Not intended for no n medical purpose s. TROPONIN I - [id number] 12:08:00 Test Item Value Reference Range Interpretation Comments TROP-I (test code <0.012 ng/ml 0.012-0.033 = TROP-I) INTERPRETIVE DA TA A TROPONIN OF L ESS THAN 0.034 NG/ML IS CONSIDERED NEGA TIVE A TROPONIN OF 0.0 34 - 0.119 NG/ML IS CONSIDERED OCATES ZONE A TROPONIN =/> 0. 120 NG/ML IS CONSIDERED P OSITIVE PROBRAIN NATRIURETIC [id number] 12:08:00 Test Item Value Reference Range Interpretation Comments NT-PROBNP (test code 19 pg/mL Exclusi on for heart = PROBNP) failure for pat ients of all ages is 300 pg/mL. Inclusion for h eart failure for pat ients age <50 is 450 pg/m L; for patients age 50 -75 is 900 pg/mL; for russell ents age >75 is 1800 pg/ mL. INFLUENZA [id number] 11:25:00 Test Item Value Reference Range Interpretation Comments FLU A (test code = FLU A) NEGATIVE NEGATIVE FLU B (test code = FLU B) NEGATIVE NEGATIVE FLU INTERNAL POSITIVE CNTRL (test PASS PASS code = FLU IPC) INFLUENZA LOT # (test code = FLULOT) [id number] INFLUENZA EXPIRATION DATE (test code 07-29 = FLUEXP) GROUP A STREP [id number] 11:25:00 Test Item Value Reference Range Interpretation Comments GROUP A STREP SCREEN NEGATIVE NEGATIVE Cultu re set up to (test code = STREPGRA) confi rm negative Strep Screen STREP A INTERNAL POS PASS PASS CNTRL (test code = STRPAIPC) STREP A LOT # (test code [id number] = STRPALOT) STREP A EXPIRATION DATE 03-30 (test code = STRPAEXP) Culture set up to confirm negative Strep ScreenVENOUS BLOOD [id number] 11:04:00 Test Item Value Reference Range Interpretation [...] MV%METHB) 0.9 % 0.4-1.5 BG LAB VENOUS [id number] 11:04:00 Test Item Value Reference Range Interpretation Comments SITE (test code = SITE) VENOUS SITE BGLACVEN (test code = BGLACVEN) 9.0 mg/dL 6.0-18.0 CT THORAX W/O [id number] 09:23:[address] [address]ICMGBOXIWG IMAGING REPORTPatient Name: Arcadio FUENTES of Service: [id number]: 43 Sex: M Order #: [id number] [facility] 1975 [facility] Number: [id number] Record Number: [id number] Hospital Number: [id number] Physician: ENEDELIA PRESSLEYOLAOrdering Physician: LINDSEY PRESSLEY chest.History: [...] AMLegally authenticated by BELEN POPE JR 2019-07-26 09:20:50GLUBEEveline 2019-07-02 03:00:00 Test Item Value Reference Range Interpretation Comments GLUBED (test code = GLUBED) 423 mg/dL 70-110 H [id number] 03:00:00 Test Item Value Reference Range Interpretation Comments GLUBED (test code = GLUBED) 287 mg/dL 70-110 H [id number] 03:00:00 Test Item Value Reference Range Interpretation Comments GLUBED (test code = GLUBED) 328 mg/dL 70-110 H [id number] 03:00:00 Test Item Value Reference Range Interpretation Comments GLUBED (test code = GLUBED) 414 mg/dL 70-110 H [id number] 02:59:00 Test Item Value Reference Range Interpretation Comments GLUBED (test code = GLUBED) 276 mg/dL 70-110 H ACETONE [id number] 11:08:00 Test Item Value Reference Range Interpretation Comments ACETONE BLOOD (test code = ACETB) NEGATIVE NEGATIVE DRUGS OF ABUSE SCREEN [id number] 10:47:00 Test Item Value Reference Range Interpretation [...] = [place]) concentrati on: 300 ng/mL URINALYSIS [id number] 10:39:00 Test Item Value Reference Range Interpretation [...] code = TRACE NONE BACU) COMPREHENSIVE METABOLIC [id number] 10:36:00 Test Item Value Reference Range Interpretation [...] 107 Units/L 50.0-136.0 N code = ALKP) [id number] 10:36:00 Test Item Value Reference Range Interpretation Comments ALCOHOL (test code 0.00 gm/dL 0.00-0.00 N ETHYL ALC OHOL VALUES - = ALC) INTERPRETATION: 0.050 GM/DL - NOT INT OXICATED 0.100 GM/DL - INTOXICATED 0.3 50-0.450 GM/DL - SEVEREL Y INTOXICATED 0.5 50 GM/DL- FATAL INTOXICAT ION COMPREHENSIVE METABOLIC [id number] 10:32:00 Test Item Value Reference Range Interpretation [...] TOTAL (test Units/L 50.0-136.0 code = ALKP) [id number] 10:32:00 Test Item Value Reference Range Interpretation Comments ALCOHOL (test code = ALC) gm/dL 0.00-0.00 CBC W/AUTO [id number] 10:23:00 Test Item Value Reference Range Interpretation [...] = BA#) 0.1 K/mm3 0.0-0.2 N URINALYSIS [id number] 10:19:00 Test Item Value Reference Range Interpretation [...] UA BACTERIA (test code = NONE BACU) [id number] 11:41:00 Test Item Value Reference Range Interpretation Comments GLUBED (test code = 125 mg/dL 74-106 H Performe d by certified GLUBED) decay control operator at [facility] [id number] 06:55:00 Test Item Value Reference Range Interpretation Comments GLUBED (test code = 228 mg/dL 74-106 H Performe d by certified GLUBED) decay control operator at [facility] CBC W/O [id number] 03:41:00 Test Item Value Reference Range Interpretation [...] fL 6.7-11.0 N = MPV) CBC W/O [id number] 03:39:00 Test Item Value Reference Range Interpretation [...] VOLUME (test code fL 6.7-11.0 = MPV) HEPATIC FUNCTION [id number] 03:38:00 Test Item Value Reference Range Interpretation [...] range due ALKP) to change in reagent. [id number] 03:38:00 Test Item Value Reference Range Interpretation [...] AT AN AD[facility]AL [facility] URINALYSIS [id number] 03:38:00 Test Item Value Reference Range Interpretation [...] Urine Source? Clean CatchDRUGS OF ABUSE SCREEN [id number] 03:38:00 Test Item Value Reference Range Interpretation [...] [place]) NEGATIVE <300 ng/mL Urine Source? Clean CatchBASIC METABOLIC [id number] 03:38:00 Test Item Value Reference Range Interpretation [...] GFR) formula.Chronic kidney disease is defined as [facility] kidney damageor GFR <60 mL/min/1.73 m2 for >3 months. CREATININE (test code 0.80 mg/dL 0.7-1.3 N = CREAT) BUN/CREATININE RATIO 15.0 10-20 N (test code = BUN/CREA) CALCIUM (test code = 8.7 mg/dL 8.5-10.1 N CA) URINALYSIS [id number] 03:35:00 Test Item Value Reference Range Interpretation [...] Urine Source? Clean CatchDRUGS OF ABUSE SCREEN [id number] 03:35:00 Test Item Value Reference Range Interpretation [...] <300 ng/mL Urine Source? Clean CatchBASIC METABOLIC [id number] 03:29:00 Test Item Value Reference Range Interpretation [...] code = CA) mg/dL 8.5-10.1 HEPATIC FUNCTION [id number] 03:29:00 Test Item Value Reference Range Interpretation [...] TOTAL (test IUnit/L 45-117 code = ALKP) [id number] 03:29:00 Test Item Value Reference Range Interpretation Comments ALCOHOL (test code = ALC) mg/dL 0-3 URINALYSIS [id number] 03:25:00 Test Item Value Reference Range Interpretation [...] Urine Source? Clean CatchDRUGS OF ABUSE SCREEN [id number] 03:25:00 Test Item Value Reference Range Interpretation [...] = [place]) <300 ng/mL Urine Source? Clean CatchCBC W/AUTO [id number] 09:44:00 Test Item Value Reference Range Interpretation [...] MX#) 0.9 k/mm3 0.1-0.8 H COMPREHENSIVE METABOLIC [id number] 20:24:00 Test Item Value Reference Range Interpretation [...] 118 Units/L 50.0-136.0 N code = ALKP) [id number] 20:24:00 Test Item Value Reference Range Interpretation Comments ALCOHOL (test code 0.02 gm/dL 0.00-0.00 H ETHYL ALC OHOL VALUES - = ALC) INTERPRETATION: 0.050 GM/DL - NOT INT OXICATED 0.100 GM/DL - INTOXICATED 0.3 50-0.450 GM/DL - SEVEREL Y INTOXICATED 0.5 50 GM/DL- FATAL INTOXICAT ION DRUGS OF ABUSE SCREEN [id number] 20:16:00 Test Item Value Reference Range Interpretation [...] [place]) concentrati on: 300 ng/mL COMPREHENSIVE METABOLIC [id number] 20:16:00 Test Item Value Reference Range Interpretation [...] TOTAL (test Units/L 50.0-136.0 code = ALKP) [id number] 20:16:00 Test Item Value Reference Range Interpretation Comments ALCOHOL (test code = ALC) gm/dL 0.00-0.00 CBC W/AUTO [id number] 20:08:00 Test Item Value Reference Range Interpretation [...] code = BA#) 0.1 K/mm3 0.0-0.2 N [id number] 17:49:00 Test Item Value Reference Range Interpretation Comments SODIUM (test code = NA/ABG) 138 MEQ/L 134-147 N [id number] 17:49:00 Test Item Value Reference Range Interpretation Comments POTASSIUM (test code = K/ABG) MEQ/L 3.4-5.0 [id number] 17:49:00 Test Item Value Reference Range Interpretation Comments CHLORIDE (test code = CL/ABG) MEQ/L 100-108 CREATININE [id number] 17:49:00 Test Item Value Reference Range Interpretation Comments CREATININE ABG (test code = CREAABG) mg/dL 0.8-1.3 POC IONIZED [id number] 17:49:00 Test Item Value Reference Range Interpretation Comments POC IONIZED CALCIUM (test code = MMOL/L 1.12-1.32 POCCA) POC [id number] 17:49:00 Test Item Value Reference Range Interpretation Comments POC GLUCOSE (test code = POCGLU) MG/DL 70-110 [id number] 17:49:00 Test Item Value Reference Range Interpretation Comments SODIUM (test code = NA/ABG) 138 MEQ/L 134-147 N [id number] 17:49:00 Test Item Value Reference Range Interpretation Comments POTASSIUM (test code = K/ABG) 3.8 MEQ/L 3.4-5.0 N [id number] 17:49:00 Test Item Value Reference Range Interpretation Comments CHLORIDE (test code = CL/ABG) MEQ/L 100-108 CREATININE [id number] 17:49:00 Test Item Value Reference Range Interpretation Comments CREATININE ABG (test code = CREAABG) mg/dL 0.8-1.3 POC IONIZED [id number] 17:49:00 Test Item Value Reference Range Interpretation Comments POC IONIZED CALCIUM (test code = MMOL/L 1.12-1.32 POCCA) POC [id number] 17:49:00 Test Item Value Reference Range Interpretation Comments POC GLUCOSE (test code = POCGLU) MG/DL 70-110 [id number] 17:49:00 Test Item Value Reference Range Interpretation Comments SODIUM (test code = NA/ABG) 138 MEQ/L 134-147 N [id number] 17:49:00 Test Item Value Reference Range Interpretation Comments POTASSIUM (test code = K/ABG) 3.8 MEQ/L 3.4-5.0 N [id number] 17:49:00 Test Item Value Reference Range Interpretation Comments CHLORIDE (test code = CL/ABG) MEQ/L 100-108 CREATININE [id number] 17:49:00 Test Item Value Reference Range Interpretation Comments CREATININE ABG (test code = CREAABG) mg/dL 0.8-1.3 POC IONIZED [id number] 17:49:00 Test Item Value Reference Range Interpretation Comments POC IONIZED CALCIUM (test code = 1.11 MMOL/L 1.12-1.32 L POCCA) POC [id number] 17:49:00 Test Item Value Reference Range Interpretation Comments POC GLUCOSE (test code = POCGLU) MG/DL 70-110 [id number] 17:49:00 Test Item Value Reference Range Interpretation Comments SODIUM (test code = NA/ABG) 138 MEQ/L 134-147 N [id number] 17:49:00 Test Item Value Reference Range Interpretation Comments POTASSIUM (test code = K/ABG) 3.8 MEQ/L 3.4-5.0 N [id number] 17:49:00 Test Item Value Reference Range Interpretation Comments CHLORIDE (test code = CL/ABG) MEQ/L 100-108 CREATININE [id number] 17:49:00 Test Item Value Reference Range Interpretation Comments CREATININE ABG (test code = CREAABG) mg/dL 0.8-1.3 POC IONIZED [id number] 17:49:00 Test Item Value Reference Range Interpretation Comments POC IONIZED CALCIUM (test code = 1.11 MMOL/L 1.12-1.32 L POCCA) POC [id number] 17:49:00 Test Item Value Reference Range Interpretation Comments POC GLUCOSE (test code = POCGLU) 187 MG/DL 70-110 H [id number] 17:49:00 Test Item Value Reference Range Interpretation Comments SODIUM (test code = NA/ABG) 138 MEQ/L 134-147 N [id number] 17:49:00 Test Item Value Reference Range Interpretation Comments POTASSIUM (test code = K/ABG) 3.8 MEQ/L 3.4-5.0 N [id number] 17:49:00 Test Item Value Reference Range Interpretation Comments CHLORIDE (test code = CL/ABG) 101 MEQ/L 100-108 N CREATININE [id number] 17:49:00 Test Item Value Reference Range Interpretation Comments CREATININE ABG (test code = CREAABG) mg/dL 0.8-1.3 POC IONIZED [id number] 17:49:00 Test Item Value Reference Range Interpretation Comments POC IONIZED CALCIUM (test code = 1.11 MMOL/L 1.12-1.32 L POCCA) POC [id number] 17:49:00 Test Item Value Reference Range Interpretation Comments POC GLUCOSE (test code = POCGLU) 187 MG/DL 70-110 H [id number] 17:49:00 Test Item Value Reference Range Interpretation Comments SODIUM (test code = NA/ABG) 138 MEQ/L 134-147 N [id number] 17:49:00 Test Item Value Reference Range Interpretation Comments POTASSIUM (test code = K/ABG) 3.8 MEQ/L 3.4-5.0 N [id number] 17:49:00 Test Item Value Reference Range Interpretation Comments CHLORIDE (test code = CL/ABG) 101 MEQ/L 100-108 N CREATININE [id number] 17:49:00 Test Item Value Reference Range Interpretation Comments CREATININE ABG (test code = 1.2 mg/dL 0.8-1.3 N CREAABG) POC IONIZED [id number] 17:49:00 Test Item Value Reference Range Interpretation Comments POC IONIZED CALCIUM (test code = 1.11 MMOL/L 1.12-1.32 L POCCA) POC [id number] 17:49:00 Test Item Value Reference Range Interpretation Comments POC GLUCOSE (test code = POCGLU) 187 MG/DL 70-110 H WHOLE BLOOD [id number] 07:40:00 Test Item Value Reference Range Interpretation Comments WHOLE BLOOD GLUCOSE 216 MG/DL 70-99 H Fastin g glucose (test code = POC GLU) normal <100 MG/DL- [place] recommend ation WHOLE BLOOD [id number] 20:10:00 Test Item Value Reference Range Interpretation Comments WHOLE BLOOD GLUCOSE 118 MG/DL 70-99 H Fastin g glucose (test code = POC GLU) normal <100 MG/DL- [place] recommend ation WHOLE BLOOD [id number] 20:10:00 Test Item Value Reference Range Interpretation Comments WHOLE BLOOD GLUCOSE 260 MG/DL 70-99 H Fastin g glucose (test code = POC GLU) normal <100 MG/DL- [place] recommend ation RPR FOR SERUM [id number] 16:23:00 Test Item Value Reference Range Interpretation Comments RPR (test code = NONREACTIVE NONREACTIVE RPR) NR = NON-REACTIVE R = REACTIVE HEPATITIS C ANTIBODY [id number] 14:40:00 Test Item Value Reference Range Interpretation [...] confirmation re sults will follow. WHOLE BLOOD [id number] 12:20:00 Test Item Value Reference Range Interpretation Comments WHOLE BLOOD GLUCOSE 201 MG/DL 70-99 H Fastin g glucose (test code = POC GLU) normal <100 MG/DL- [place] recommend ation LIPID [id number] 11:26:00 Test Item Value Reference Range Interpretation [...] MG/DL <100 H CALC LDL) THYROID STIMULATION [id number] 11:25:00 Test Item Value Reference Range Interpretation Comments TSH (test code = TSH) 1.60 UIU/ML 0.465-4.68 VITAMIN D [id number] 10:48:00 Test Item Value Reference Range Interpretation Comments VITAMIN D, 25-HYDROXY 25.9 Vitami n D guideline has (test code = VITD,25) been d efined by the [place] [employer] ty practice as fol lowed: Defici ent: less than 20 ng/mL Insufficient: 21-29 ng/mL Sufficient: 30- 100 ng/mL Pot ential Toxicity: >100n g/mL VALPROIC [id number] 10:48:00 Test Item Value Reference Range Interpretation Comments VALP (test code = VALP) <10.0 UG/ML 50-100 L % HEMOGLOBIN A1C (GLYCATED)2019-04-21 09:22:00 Test Item Value Reference Range Interpretation Comments HEMOGLOBIN A1C (test 8.4 % 0-6 H TH ERAPEUTIC TARGET code = GLYCO-) FOR THE TREAT MENT OF DIABETES Manju HOSKINS PATIENTS IS < 7 % HBA1C. [place] DIABETES CARE 2002;25:S33-S49 WHOLE BLOOD [id number] 06:45:00 Test Item Value Reference Range Interpretation Comments WHOLE BLOOD GLUCOSE 229 MG/DL 70-99 H Fastin g glucose (test code = POC GLU) normal <100 MG/DL- [place] recommend ation WHOLE BLOOD [id number] 19:50:00 Test Item Value Reference Range Interpretation Comments WHOLE BLOOD GLUCOSE 234 MG/DL 70-99 H Fastin g glucose (test code = POC GLU) normal <100 MG/DL- [place] recommend ation WHOLE BLOOD [id number] 17:30:00 Test Item Value Reference Range Interpretation Comments WHOLE BLOOD GLUCOSE 247 MG/DL 70-99 H Fastin g glucose (test code = POC GLU) normal <100 MG/DL- [place] recommend ation MICROALBUMIN, RANDOM [id number] 17:14:00 Test Item Value Reference Range Interpretation Comments MICROALB (test <0.6 mg/dL 0-1.7 A result of 3 0 to 300 code = MICROALB) g/mg is con sidered indicative of microalbuminuri a A result of >= 300 g/mg is considered j carlos cative of macro (clinical ) albuminuria Due [...] of 30 to 300 g/mg is considered j carlos cative of microalbuminuri a A result of >= 300 g/mg is considered j carlos cative of macro (clinical ) albuminuria Due [...] 16.3 mg/dL code = UCREMGDL) WHOLE BLOOD [id number] 12:10:00 Test Item Value Reference Range Interpretation Comments WHOLE BLOOD GLUCOSE 221 MG/DL 70-99 H Fastin g glucose (test code = POC GLU) normal <100 MG/DL- [place] recommend ation [id number] 02:40:00 Test Item Value Reference Range Interpretation Comments GLUBED (test code = 286 MG/DL 70-110 H Performe d by certified GLUBED) decay control operator at [facility] [id number] 19:40:00 Test Item Value Reference Range Interpretation Comments GLUBED (test code = 165 MG/DL 70-110 H Performe d by certified GLUBED) decay control operator at [facility] BASIC METABOLIC [id number] 05:04:00 Test Item Value Reference Range Interpretation [...] code = 8.3 mg/dL 8.0-10.5 N CA) [id number] 05:04:00 Test Item Value Reference Range Interpretation [...] may anayeli y by method. BASIC METABOLIC [id number] 05:03:00 Test Item Value Reference Range Interpretation [...] CALCIUM (test code = CA) mg/dL 8.0-10.5 [id number] 05:03:00 Test Item Value Reference Range Interpretation [...] may anayeli y by method. CBC W/AUTO [id number] 04:48:00 Test Item Value Reference Range Interpretation [...] code = MDIFF) - CT HEAD/BRAIN W/O [id number] 18:08:00 Name: BRITT FUENTES [facility] [place] : 1975 Age/S: 43 / M [address] [place] [address] Unit #: [id number] Loc: [place] Phys: Paolo Otero DO Acct: [id number] Dis Date: Status: REG ER PHONE #: [phone] Exam Date: 01/29/2019 1848 FAX #: [phone] Reason: found down EXAMS: CPTCODE: [id number] CT HEAD/BRAIN W/O CONT [address] HEAD INDICATION: found down. TECHNIQUE: [...] Martinez D.O. CC: Paolo Otero DO Technologist:Gabrielle Berry, RT(R) CTDI: DLP: Trnscb Date/Time: 01/29/2019 (1807) [email or web address] Orig Print D/T: S: 01/29/2019 (1811) PAGE 1 Signed ReportBASIC METABOLIC [id number] 17:48:00 Test Item Value Reference Range Interpretation [...] code = 8.7 mg/dL 8.0-10.5 N CA) [id number] 17:48:00 Test Item Value Reference Range Interpretation Comments ALCOHOL (test code < 0.003 G/dL <0.003 Ethyl Alc ohol = ALC) Interpretation: 0.100 gm/dL - Legally Intoxic ated 0.300-0.40 0 gm/dL - Severely Into xicated >0.400 gm/dL - Potentially LethalResults a re for Medical purpose s only, and not for Leg al orEmployment ev aluation purposes. CBC W/AUTO [id number] 17:32:00 Test Item Value Reference Range Interpretation [...] REQUIRED (test NO code = MDIFF) POC [id number] 04:14:49 Test Item Value Reference Range Interpretation Comments Glucose POC (test 220 mg/dL 70-115 H If you con software quality specialist your code = Glucose POC) patient critically ill, the Ricky-Accu Check Infrom II meter should not be used for Glucose determination. Draw a venous Glucose and send to the main Lab for analysis. CT Brain/Head w/o [id number] 21:39:46Patient: BRITT FUENTES Date/Time11/19/2018 21:31 CDTReason for [...] reconstruction techn ique. Total DLP: 718.2mGy-cm.Comparison: NoneLocation: K16Jszrjdcg:The ventricles and sulci are normal in size [...] Signature): 11/19/2018 9:39 pmDRUGS OF ABUSE SCREEN [id number] 16:18:00 Test Item Value Reference Range Interpretation [...] non-medical pur poses. DRUGS OF ABUSE SCREEN [id number] 16:09:00 Test Item Value Reference Range Interpretation [...] ed for non-medical pur poses. HEPATIC FUNCTION [id number] 15:53:00 Test Item Value Reference Range Interpretation [...] in INTERNATIONAL (test code = CK) UNITS/LITER [id number] 15:53:00 Test Item Value Reference Range Interpretation Comments SALICYLATE (test code = DAVE) 3.0 mg/dL 2.8-20.0 N [id number] 15:53:00 Test Item Value Reference Range Interpretation Comments ALCOHOL (test code < 0.003 G/dL <0.003 Ethyl Alc ohol = ALC) Interpretation: 0.100 gm/dL - Legally Intoxic ated 0.300-0.40 0 gm/dL - Severely Into xicated >0.400 gm/dL - Potentially LethalResults a re for Medical purpose s only, and not for Leg al orEmployment ev aluation purposes. CHEMISTRY 8 [id number] 15:42:00 Test Item Value Reference Range Interpretation [...] ML/MIN (test code = GFRBED) CHEMISTRY 8 [id number] 15:42:00 Test Item Value Reference Range Interpretation Comments ISTAT-SODIUM (test 133 MMOL/L 134-147 L code = NAP) ISTAT-POTASSIUM (test 4.3 MMOL/L 3.4-5.0 N code = KP) ISTAT-CHLORIDE (test 94 MMOL/L 100-108 L Perform ed by code = CLP) certified opera tor at [facility] ISTAT CARBON DIOXIDE 29.0 mmol/L 21-33 N (test code = ISTAT-CO2) ISTAT CALCIUM IONIZED 1.08 MG/DL 1.12-1.32 L (test code = ISTAT-KATHLEEN) ISTAT-GLUCOSE (test 418 MG/DL 70-110 H code = GLUP) ISTAT-BUN (test code = 13 MG/DL 7-18 N BUNP) BEDSIDE CREATININE 1.1 MG/DL 0.6-1.3 N (test code = CREATBED) GLOMERULAR FILTRATION 78 ML/MIN RATE POC (test code = GFRBED) CBC W/O [id number] 15:30:00 Test Item Value Reference Range Interpretation [...] 7.0-9.0 H code = MPV) Valproic Acid [id number] 08:30:32 Test Item Value Reference Range Interpretation Comments Valproic Acid Level (test code 102.7 ug/mL(g) 50.0-100.0 H = Valproic Acid Level) RPR [id number] 11:30:00 Test Item Value Reference Range Interpretation [...] = 02-07-20 N Expiration Dt) Thyroid Stimulating [id number] 11:02:26 Test Item Value Reference Range Interpretation Comments TSH (test code = TSH) 1.060 mIU/mL 0.270-4.200 Lipid [id number] 10:58:47 Test Item Value Reference Range Interpretation Comments Cholesterol Total 214 mg/dL 0-200 H RISK OF HE ART (test code = DISEASEPublishe d by Cholesterol Total) [employer] [employer] Kaia lyte Optimal Borderl ine [...] being used code = LDL/HDL Ratio) in thi s calculation is LDL/HDL Ratio=L DL Calc/HDL Chol Lipid [id number] 10:58:47 Test Item Value Reference Range Interpretation Comments Cholesterol Total 214 mg/dL 0-200 H RISK OF HE ART (test code = DISEASEPublishe d by Cholesterol Total) [place] Kaia lyte Optimal Borderl ine [...] being used code = LDL/HDL Ratio) in thi s calculation is LDL/HDL Ratio=L DL Calc/HDL Chol Urine [id number] 09:31:38No growth at 24 hours. No growth at 48 hours.IG [id number] 13:18:22 Test Item Value Reference Range Interpretation Comments IG (test code = IG) 0.3 % 0.0-5.0 IG Abs (test code = IG Abs) 0 x10 N Complete Blood Count with [id number] 13:18:21 Test Item Value Reference Range Interpretation [...] code = IPF) 0 % N Automated [id number] 13:18:21 Test Item Value Reference Range Interpretation Comments Neutro Auto (test code = Neutro 57.7 % 36.0-70.0 Auto) Lymph Auto (test code = Lymph Auto) 31.9 % 12.0-44.0 Howard Auto (test code = Howard Auto) 7.3 % 0.0-11.0 Eos, Auto (test code = Eos, Auto) 2.1 % 0.0-7.0 Basophil Auto (test code = Basophil 0.7 % 0.0-2.0 Auto) Neutro Absolute (test code = Neutro 5.7 x10 1.6-7.4 Absolute) Lymph Absolute (test code = Lymph 3.16 x10 .50-4.60 Absolute) Howard Absolute (test code = Howard .72 x10 .00-1.20 Absolute) Eos Absolute (test code = Eos 0.21 x10 0.00-0.74 Absolute) Baso Absolute (test code = Baso 0.07 x10 0.00-0.21 Absolute) Complete Blood Count with [id number] 13:18:21 Test Item Value Reference Range Interpretation [...] 0 % N Drugs of Abuse Urine [id number] 13:13:42 Test Item Value Reference Range Interpretation [...] code = Cannabinoid Screen Ur) Comprehensive Metabolic [id number] 13:10:46 Test Item Value Reference Range Interpretation [...] A/G 1.5 ratio N Ratio) Comprehensive Metabolic [id number] 13:10:46 Test Item Value Reference Range Interpretation [...] the National Kid[employer] Foundation, http://nkdep.ni h.gov Alcohol [id number] 13:10:46 Test Item Value Reference Range Interpretation Comments Ethanol Level (test <0.00 g/dL 0.00-0.01 Intoxica wade 0.080 g/dL code = Ethanol or more Level) Ethanol Inst (test <0 N code = Ethanol Inst) Comprehensive Metabolic [id number] 13:10:46 Test Item Value Reference Range Interpretation [...] ag e have not been validated by [facility] MDRD study and should be interpreted wit [...] ag e have not been validated by [facility] MDRD study and should be interpreted wit h caution. eGFR R esult Interpretation: eGFR > or = 60 is in the Normal RangeeGF R < 60 may mean kid alyssa diseaseeGFR < 1 5 may mean kidney failure Rang es recommended by the National Kidney Foundation, http://nkdep.ni h.gov Comprehensive Metabolic [id number] 13:10:46 Test Item Value Reference Range Interpretation [...] Creatinine Level) change in patient's sex at 19:15:05. Norm al Low changed fro m [...] patie nt's sex at 19:15:05. Norm al Low changed fro m 40 to 35. Normal High changed from 12 9 to 104. Result fl ag not changed. Bilirubin Total 0.2 mg/dL 0.1-0.9 (test code = Bilirubin Total) Albumin Level (test 4.3 g/dL 3.5-5.2 code = Albumin Level) Protein Total (test 7.2 g/dL 6.4-8.3 code = Protein Total) ALT (test code = 17 U/L 1-33 Reference r [facility] ALT) changed due to change in patie nt's sex at 19:15:05. Norm al High changed fr om 41 to 33. Result flag not changed. AST (test code = 16 U/L 1-32 Reference r [facility] AST) changed due to change in patie [...] ag e have not been validated by [facility] MDRD study and should be interpreted wit [...] ag e have not been validated by [facility] MDRD study and should be interpreted wit h caution. eGFR R esult Interpretation: eGFR > or = 60 is in the Normal RangeeGF R < 60 may mean kid alyssa diseaseeGFR < 1 5 may mean kidney failure Rang es recommended by the National Kidney Foundation, http://nkdep.ni h.gov [id number] 06:35:00 Test Item Value Reference Range Interpretation Comments GLUBED (test code = 253 MG/DL 70-110 H Performe d by certified GLUBED) decay control operator at [facility] [id number] 15:12:00 Test Item Value Reference Range Interpretation Comments GLUBED (test code = 567 MG/DL 70-110 H Performe d by certified GLUBED) decay control operator at [facility] [id number] 08:00:00 Test Item Value Reference Range Interpretation Comments GLUBED (test code = 217 MG/DL 70-110 H Performe d by certified GLUBED) decay control operator at [facility] [id number] 05:54:00 Test Item Value Reference Range Interpretation Comments GLUBED (test code = 368 MG/DL 70-110 H Performe d by certified GLUBED) decay control operator at [facility] URINALYSIS [id number] 05:14:00 Test Item Value Reference Range Interpretation [...] NONE SEEN code = SQU) VENOUS BLOOD [id number] 04:32:00 Test Item Value Reference Range Interpretation [...] y DELIVERY (test code = certif ied decay control operator at DEL) [facility] VENOUS BLOOD GAS TEMP 98.6 F (test code = TEMPV) VENOUS BLOOD GAS SITE Other (test code = SITEV) VENOUS TCO2 (test 25 code = TCO2V) BASIC METABOLIC [id number] 04:18:00 Test Item Value Reference Range Interpretation [...] 7.9 mg/dL 8.0-10.5 L CA) HEPATIC FUNCTION [id number] 04:18:00 Test Item Value Reference Range Interpretation [...] 149 IUnit/L 20-125 H code = ALKP) [id number] 04:18:00 Test Item Value Reference Range Interpretation Comments LIPASE (test code = LIP) 201 IUnit/L 73-393 N ACETONE [id number] 04:18:00 Test Item Value Reference Range Interpretation Comments ACETONE QUANT (test NEGATIVE - <20mg/dL NEG - <20 code = ACETN) mg/dL PROTHROMBIN [id number] 04:09:00 Test Item Value Reference Range Interpretation [...] o prevent recurre nt infarct). BASIC METABOLIC [id number] 04:08:00 Test Item Value Reference Range Interpretation [...] code = CA) mg/dL 8.0-10.5 HEPATIC FUNCTION [id number] 04:08:00 Test Item Value Reference Range Interpretation Comments TOTAL PROTEIN (test code = PROT) g/dL 6.4-8.2 ALBUMIN (test code = ALB) g/dL 3.4-5.0 BILIRUBIN TOTAL (test code = BILT) mg/dL 0.0-1.0 BILIRUBIN DIRECT (test code = BILD) MG/DL 0.0-0.30 SGOT/AST (test code = AST) IUnit/L 15-37 SGPT/ALT (test code = ALT) IUnit/L 15-65 ALKALINE PHOSPHATASE TOTAL (test IUnit/L 20-125 code = ALKP) [id number] 04:08:00 Test Item Value Reference Range Interpretation Comments LIPASE (test code = LIP) IUnit/L 73-393 ACETONE [id number] 04:08:00 Test Item Value Reference Range Interpretation Comments ACETONE QUANT (test NEGATIVE - <20mg/dL NEG - <20 code = ACETN) mg/dL CBC W/AUTO [id number] 03:55:00 Test Item Value Reference Range Interpretation [...] REQUIRED (test code NO = MDIFF) TROPONIN-I [id number] 03:45:00 Test Item Value Reference Range Interpretation Comments TROPONIN-I RAPID 0.00 ng/mL 0.00-0.08 N Performed b y certified (test code = decay control operator at [facility]) [facility] [employer] with joint leadershi p from the EuropeanSociety of Cardiology (ESC ), the [place] [employer] e [employer] Foun dation (ACCF), the [place] Heart Association(AHA ) and the World Heart Fed eration (WHF) refined p ast criteria of myocardial i nfarction ([place]) with a uni versal definition of m yocardial infarction that supports the use of cTnI as a preferred bioma rker for myocardial inju ry. The universal defin ition of [place], according to th is taskforce, is d efined as a [...] change s in troponin levels characteristic of [place]. Comprehensive Metabolic [id number] 01:07:10 Test Item Value Reference Range Interpretation [...] Level) change in patient's sex at 9 19:15:07. Norm al Low [...] code = 32 U/L 1-33 Reference r [facility] ALT) changed due to change in patie nt's sex at 19:15:07. Norm al High changed fr om 41 to 33. Result flag not changed. AST (test code = 26 U/L 1-32 Reference r [facility] AST) changed due to change in patie [...] Foundation, http://nkdep.ni h.gov Complete Blood Count with [id number] 00:39:59 Test Item Value Reference Range Interpretation [...] code = IPF) 0 % N POCT-GLUCOSE [id number] 20:46:00 Test Item Value Reference Range Interpretation Comments POC-GLUCOSE METER 195 mg/dL 70-110 H TESTED AT [facility] [address] ([facility]) (test code = [place] [facility] 1538) [address] CT Brain/Head w/o [id number] 00:25:11Patient: BRITT FUENTES Date/Time11/04/2017 00:06 CDTReason for ExamAltered level of consciousnessReportExam: CT of the brain without contrast.History: Altered mental statusLocation: V25Osgeirhrg: Contiguous axial CT images were obtained from [...] nt's sex at 9 19:15:08. Norm al Low [...] code = 17 U/L 1-32 Reference r blaise AST) changed [...] Foundation, http://nkdep.ni h.gov Complete Blood Count with [id number] 21:44:38 Test Item Value Reference Range Interpretation [...] = IPF) 0 % N Comprehensive Metabolic [id number] 15:49:10 Test Item Value Reference Range Interpretation [...] change in patie nt's sex at 9 19:15:10. Norm al Low [...] code = 21 U/L 1-33 Reference r blaise ALT) changed due to change in patie nt's sex at 9 19:15:10. Norm al High changed fr om 41 to 33. Result flag not changed. AST (test code = 19 U/L 1-32 Reference r blaise AST) changed due to change in patie nt's sex at 9 19:15:10. Norm al High changed fr om [...] Foundation, http://nkdep.ni h.gov Complete Blood Count with [id number] 15:44:44 Test Item Value Reference Range Interpretation [...] = IPF) 0 % N URINALYSIS W/ [id number] 00:30:00 Test Item Value Reference Range Interpretation [...] 1584) SOURCE(BEAKER) (test code = 2795) POCT-GLUCOSE [id number] 23:25:00 Test Item Value Reference Range Interpretation Comments POC-GLUCOSE METER 266 mg/dL 70-110 H TESTED AT [facility] [address] (BEAKER) (test code = [place] 1538) [address] BASIC METABOLIC [id number] 23:12:00 Test Item Value Reference Range Interpretation [...] PATIEN TS. RAD, KNEE, COMPLETE (4 VIEWS), [id number] 23:01:00Reason for exam:->FALL FINAL REPORT RAD, KNEE, [...] MDReport Verified Date/Time: 10/21/2017 23:01:41 Reading Location: [address] Reading Room CBC W/PLT COUNT & [...] NEUTROPHILS ABSOLUTE COUNT 5.19 K/ L 1.78-5.38 (BEAKER) (test code = 670) LYMPHOCYTES ABSOLUTE COUNT 3.31 K/ L 1.32-3.57 (BEAKER) (test code = 414) MONOCYTES ABSOLUTE COUNT (BEAKER) 0.85 K/ L 0.30-0.82 H (test code = 415) EOSINOPHILS ABSOLUTE COUNT 0.27 K/ L 0.04-0.54 (BEAKER) (test code = 416) BASOPHILS ABSOLUTE COUNT (BEAKER) 0.08 K/ L 0.01-0.08 (test code = 417) IMMATURE GRANULOCYTES-RELATIVE 0 % 0-1 PERCENT (BEAKER) (test code = 2801) KETONE, [id number] 22:52:00 Test Item Value Reference Range Interpretation Comments KETONES, BLOOD (BEAKER) (test code 0.1 mmol/L <0.4 = 1103) POCT-GLUCOSE [id number] 22:11:00 Test Item Value Reference Range Interpretation Comments POC-GLUCOSE METER 324 mg/dL 70-110 H TESTED AT [facility] [address] ([place]) (test code = [place] 1538) [address] Comprehensive Metabolic [id number] 02:06:31 Test Item Value Reference Range Interpretation [...] Creatinine Level) change in patient's sex at 19:15:11. Norm al Low changed [...] change in patie nt's sex at 9 19:15:11. Norm al Low [...] change in patie nt's sex at 9 19:15:11. Norm al High changed fr om 41 to 33. Result flag not changed. AST (test code = 15 U/L 1-32 Reference r blaise AST) changed due to change in patie nt's sex at 9 19:15:11. Norm al High changed fr om [...] Foundation, http://nkdep.ni h.gov Complete Blood Count with [id number] 01:51:13 Test Item Value Reference Range Interpretation [...] 0 % N Complete Blood Count with [id number] 03:59:01 Test Item Value Reference Range Interpretation [...] = IPF) 0 % N Comprehensive Metabolic [id number] 03:52:18 Test Item Value Reference Range Interpretation [...] code = 21 U/L 1-33 Reference r blaise ALT) changed due to change in patie nt's sex at 9 19:15:12. Norm al High changed fr om 41 to 33. Result flag not changed. AST (test code = 25 U/L 32 Reference r blaise AST) changed due to [...] http://nkdep.ni h.gov CREATINE KINASE (CK), TOTAL AND [id number] 04:39:00 Test Item Value Reference Range Interpretation Comments CREATINE KINASE TOTAL (BEAKER) 382 U/L 29-200 H (test code = 380) CREATINE KINASE-MB (BEAKER) (test 6.5 ng/mL 0.0-6.6 code = 750) CREATINE KINASE-MB INDEX (BEAKER) 1.7 % (test code = 395) CK-MB Reference Range:<6.7 Normal6.7-10.0 Borderline>10.0 AbnormalTROPONIN [id number] 04:39:00 Test Item Value Reference Range Interpretation [...] and persistent tachyarrhythmia.RAD, CHEST, 1 VIEW, NON [id number] 00:46:00Reason for exam:->DIZZINESSFINAL REPORT History: Dizziness. Comparison: None. Findings: A single view of the chest is submitted. The examination is limited by lordotic positioning. The cardiomediastinal contours are unremarkable. There is no focal consolidation, pneumothorax, large pleural effusion or evidence of overt pulmonary edema. There is no acute bony abnormality. Impression: No acute abnormality. Signed: Piyush Garsiaeport Verified Date/Time: 09/24/2017 00:46:00 Reading Location: [address] Reading Room BASIC METABOLIC [id number] 00:07:00 Test Item Value Reference Range Interpretation [...] ESTIMATED GFR. CREATINE KINASE (CK), TOTAL AND [id number] 00:01:00 Test Item Value Reference Range Interpretation Comments CREATINE KINASE TOTAL (BEAKER) 469 U/L 29-200 H (test code = 380) CREATINE KINASE-MB (BEAKER) (test 7.3 ng/mL 0.0-6.6 H code = 750) CREATINE KINASE-MB INDEX (BEAKER) 1.6 % (test code = 395) CK-MB Reference Range:<6.7 Normal6.7-10.0 Borderline>10.0 AbnormalTROPONIN [id number] 00:01:00 Test Item Value Reference Range Interpretation [...] failure, acidosis, acute neurological disease, and persistent tachyarrhythmia.[id number] 23:55:00 Test Item Value Reference Range Interpretation Comments MAGNESIUM (BEAKER) (test code = 1.9 mg/dL 1.6-2.6 627) [id number] 23:51:00 Test Item Value Reference Range Interpretation [...] PERCENT (BEAKER) (test code = 2801) POCT-GLUCOSE [id number] 23:22:00 Test Item Value Reference Range Interpretation Comments POC-GLUCOSE METER 304 mg/dL 70-110 H TESTED AT [facility] [address] (BEAKER) (test code = [place] 1538) [address] Comprehensive Metabolic [id number] 03:05:25 Test Item Value Reference Range Interpretation [...] Level) change in patient's sex at 9 19:15:14. Norm al Low changed fro m [...] (test code = 26 U/L 1-33 Reference [facility] ALT) changed due to change in patie nt's sex at 19:15:14. Norm al High changed fr om 41 to 33. Result flag not changed. AST (test code = 24 U/L 1-32 Reference [facility] AST) changed due to change in patie [...] ag e have not been validated by [facility] MDRD study and should be interpreted wit [...] ag e have not been validated by [facility] MDRD study and should be interpreted wit h caution. eGFR R esult Interpretation: eGFR > or = 60 is in the Normal RangeeGF R < 60 may mean kid alyssa diseaseeGFR < 1 5 may mean kidney failure Rang es recommended by the National Kidney Foundation, http://nkdep.ni h.gov Complete Blood Count with [id number] 23:51:37 Test Item Value Reference Range Interpretation [...] = IPF) 0 % N POC Glucose, [id number] 08:40:00 Test Item Value Reference Range Interpretation Comments POC Glucose (test 303 mg/dL 70-115 H If you con software quality specialist your code = POCGLUC) patient crit ically ill, the Ricky Accu- Chek InformII meters hould not be used for Glu cose determinations. Draw a venous Glucose and send to the Main Lab for Analysis. [id number] 22:04:00 Test Item Value Reference Range Interpretation [...] code = THC) POSITIVE Negative A Alcohol/Ethanol, [id number] 21:40:00 Test Item Value Reference Range Interpretation Comments Alcohol, Ethyl <0.01 g/dL 0.00-0.01 N Intoxicated 0.080 (test code = ETOH) g/dL or m ore Comprehensive Metabolic [id number] 21:40:00 Test Item Value Reference Range Interpretation [...] National Kidney Foundation,http ://nkd ep.nih.gov CBC with [id number] 21:33:00 Test Item Value Reference Range Interpretation [...] code = ALYMPH) 2.4 K/cumm 0.5-4.6 N Howard Abs (test code = AMONO) 0.6 K/cumm 0.0-1.2 N Eos Abs (test code = AEOS) 0.19 K/cumm 0.00-0.74 N Baso Abs (test code = ABASO) 0.1 K/cumm 0.00-0.21 N POC Glucose, [id number] 20:46:00 Test Item Value Reference Range Interpretation Comments POC Glucose (test 164 mg/dL 70-115 H If you con software quality specialist your code = POCGLUC) patient crit ically ill, the Ricky Accu- Chek InformII meters hould not be used for Glu cose determinations. Draw a venous Glucose and send to the Main Lab for Analysis. POC Glucose, [id number] 09:31:00 Test Item Value Reference Range Interpretation Comments POC Glucose (test 268 mg/dL 70-115 H Notify RN or MDIf you code = POCGLUC) consider you r patient critically ill, the Ricky Accu-Chek InformII metershould not be used for Glucose determinations. Draw a venous Glucose and send to the Main Lab for Analysis. POC Glucose, [id number] 06:32:00 Test Item Value Reference Range Interpretation Comments POC Glucose (test 175 mg/dL 70-115 H If you con software quality specialist your code = POCGLUC) patient crit ically ill, the Ricky Accu- Chek InformII meters hould not be used for Glu cose determinations. Draw a venous Glucose and send to the Main Lab for Analysis. POC Glucose, [id number] 15:26:00 Test Item Value Reference Range Interpretation Comments POC Glucose (test 142 mg/dL 70-115 H Notify RN or MDIf you code = POCGLUC) consider you r patient critically ill, the Ricky Accu-Chek InformII metershould not be used for Glucose determinations. Draw a venous Glucose and send to the Main Lab for Analysis. POC Glucose, [id number] 10:58:00 Test Item Value Reference Range Interpretation Comments POC Glucose (test 162 mg/dL 70-115 H Notify RN or MDIf you code = POCGLUC) consider you r patient critically ill, the Ricky Accu-Chek InformII metershould not be used for Glucose determinations. Draw a venous Glucose and send to the Main Lab for Analysis. POC Glucose, [id number] 06:53:00 Test Item Value Reference Range Interpretation Comments POC Glucose (test 168 mg/dL 70-115 H If you con software quality specialist your code = POCGLUC) patient crit ically ill, the Ricky Accu- Chek InformII meters hould not be used for Glu cose determinations. Draw a venous Glucose and send to the Main Lab for Analysis. POC Glucose, [id number] 19:20:00 Test Item Value Reference Range Interpretation Comments POC Glucose (test 202 mg/dL 70-115 H If you con software quality specialist your code = POCGLUC) patient crit ically ill, the Ricky Accu- Chek InformII meters hould not be used for Glu cose determinations. Draw a venous Glucose and send to the Main Lab for Analysis. POC Glucose, [id number] 15:27:00 Test Item Value Reference Range Interpretation Comments POC Glucose (test 181 mg/dL 70-115 H Notify RN or MDIf you code = POCGLUC) consider you r patient critically ill, the Ricky Accu-Chek InformII metershould not be used for Glucose determinations. Draw a venous Glucose and send to the Main Lab for Analysis. POC Glucose, [id number] 10:48:00 Test Item Value Reference Range Interpretation Comments POC Glucose (test 172 mg/dL 70-115 H Notify RN or MDIf you code = POCGLUC) consider you r patient critically ill, the Ricky Accu-Chek InformII metershould not be used for Glucose determinations. Draw a venous Glucose and send to the Main Lab for Analysis. POC Glucose, [id number] 06:24:00 Test Item Value Reference Range Interpretation Comments POC Glucose (test 196 mg/dL 70-115 H If you con software quality specialist your code = POCGLUC) patient crit ically ill, the Ricky Accu- Chek InformII meters hould not be used for Glu cose determinations. Draw a venous Glucose and send to the Main Lab for Analysis. POC Glucose, [id number] 20:01:00 Test Item Value Reference Range Interpretation Comments POC Glucose (test 272 mg/dL 70-115 H If you con software quality specialist your code = POCGLUC) patient crit ically ill, the Ricky Accu- Chek InformII meters hould not be used for Glu cose determinations. Draw a venous Glucose and send to the Main Lab for Analysis. POC Glucose, [id number] 15:28:00 Test Item Value Reference Range Interpretation Comments POC Glucose (test 223 mg/dL 70-115 H Notify RN or MDIf you code = POCGLUC) consider you r patient critically ill, the Ricky Accu-Chek InformII metershould not be used for Glucose determinations. Draw a venous Glucose and send to the Main Lab for Analysis. POC Glucose, [id number] 12:10:00 Test Item Value Reference Range Interpretation Comments POC Glucose (test 129 mg/dL 70-115 H Notify RN or MDIf you code = POCGLUC) consider you r patient critically ill, the Ricky Accu-Chek InformII metershould not be used for Glucose determinations. Draw a venous Glucose and send to the Main Lab for Analysis. POC Glucose, [id number] 05:42:00 Test Item Value Reference Range Interpretation Comments POC Glucose (test 236 mg/dL 70-115 H Notify RN or MDIf you code = POCGLUC) consider you r patient critically ill, the Ricky Accu-Chek InformII metershould not be used for Glucose determinations. Draw a venous Glucose and send to the Main Lab for Analysis. RPR, [id number] 03:03:00 Test Item Value Reference Range Interpretation Comments RPR (test code = RPR) Non-Reactive Non-Reactive N POC Glucose, [id number] 16:21:00 Test Item Value Reference Range Interpretation Comments POC Glucose (test 318 mg/dL 70-115 H Notify RN or MDIf you code = POCGLUC) consider you r patient critically ill, the Ricky Accu-Chek InformII metershould not be used for Glucose determinations. Draw a venous Glucose and send to the Main Lab for Analysis. POC Glucose, [id number] 11:05:00 Test Item Value Reference Range Interpretation Comments POC Glucose (test 318 mg/dL 70-115 H Notify RN or MDIf you code = POCGLUC) consider you r patient critically ill, the Ricky Accu-Chek InformII metershould not be used for Glucose determinations. Draw a venous Glucose and send to the Main Lab for Analysis. POC Glucose, [id number] 06:11:00 Test Item Value Reference Range Interpretation Comments POC Glucose (test 246 mg/dL 70-115 H If you con software quality specialist your code = POCGLUC) patient crit ically ill, the Ricky Accu- Chek InformII meters hould not be used for Glu cose determinations. Draw a venous Glucose and send to the Main Lab for Analysis. POC Glucose, [id number] 21:57:00 Test Item Value Reference Range Interpretation Comments POC Glucose (test 144 mg/dL 70-115 H Notify RN or MDIf you code = POCGLUC) consider you r patient critically ill, the Ricky Accu-Chek InformII metershould not be used for Glucose determinations. Draw a venous Glucose and send to the Main Lab for Analysis. POC Glucose, [id number] 21:43:00 Test Item Value Reference Range Interpretation Comments POC Glucose (test 172 mg/dL 70-115 H Notify RN or MDIf you code = POCGLUC) consider you r patient critically ill, the Ricky Accu-Chek InformII metershould not be used for Glucose determinations. Draw a venous Glucose and send to the Main Lab for Analysis. POC Glucose, [id number] 19:49:00 Test Item Value Reference Range Interpretation Comments POC Glucose (test code = POCGLUC) >600 mg/dL 70-115 HH POC Glucose, [id number] 08:41:00 Test Item Value Reference Range Interpretation Comments POC Glucose (test 250 mg/dL 70-115 H If you con software quality specialist your code = POCGLUC) patient crit ically ill, the Ricky Accu- Chek InformII meters hould not be used for Glu cose determinations. Draw a venous Glucose and send to the Main Lab for Analysis. Urinalysis [id number] 04:20:00 Test Item Value Reference Range Interpretation Comments Color (test code = COLOR) Straw Yellow,Straw,Pl N yellow Clarity (test code = Clear Clear N CLAR) Specific Sterling (test 1.004 1.001-1.035 N code = SPGR) [...] (test code = None /HPF BACT) Alcohol/Ethanol, [id number] 02:19:00 Test Item Value Reference Range Interpretation Comments Alcohol, Ethyl <0.01 g/dL 0.00-0.01 N Intoxicated 0.080 (test code = ETOH) g/dL or m ore Comprehensive Metabolic [id number] 02:19:00 Test Item Value Reference Range Interpretation [...] by the National Kidney Foundation,http ://nkd ep.nih.gov [id number] 02:16:00 Test Item Value Reference Range Interpretation [...] 0.00-0.01 N code = ETOHU) CBC with [id number] 02:06:00 Test Item Value Reference Range Interpretation [...] code = ALYMPH) 2.8 K/cumm 0.5-4.6 N Howard Abs (test code = AMONO) 0.5 K/cumm 0.0-1.2 N Eos Abs (test code = AEOS) 0.15 K/cumm 0.00-0.74 N Baso Abs (test code = ABASO) 0.1 K/cumm 0.00-0.21 N POC Glucose, [id number] 01:51:00 Test Item Value Reference Range Interpretation Comments POC Glucose (test 259 mg/dL 70-115 H If you con software quality specialist your code = POCGLUC) patient crit ically ill, the Ricky Accu- Chek InformII meters hould not be used for Glu cose determinations. Draw a venous Glucose and send to the Main Lab for Analysis. POC Glucose, [id number] 20:16:00 Test Item Value Reference Range Interpretation Comments POC Glucose (test 301 mg/dL 70-115 H Notify RN or MDIf you code = POCGLUC) consider you r patient critically ill, the Ricky Accu-Chek InformII metershould not be used for Glucose determinations. Draw a venous Glucose and send to the Main Lab for Analysis. Urinalysis [id number] 17:48:00 Test Item Value Reference Range Interpretation Comments Color (test code = COLOR) Straw Yellow,Straw,Pl N yellow Clarity (test code = Clear Clear N CLAR) Specific Sterling (test 1.032 1.001-1.035 N code = SPGR) [...] Bacteria (test code = None /HPF BACT) [id number] 17:43:00 Test Item Value Reference Range Interpretation [...] 0.00-0.01 N code = ETOHU) Comprehensive Metabolic [id number] 17:38:00 Test Item Value Reference Range Interpretation [...] National Kidney Foundation,http ://nkd ep.nih.gov CBC with [id number] 17:16:00 Test Item Value Reference Range Interpretation [...] code = ALYMPH) 2.1 K/cumm 0.5-4.6 N Howard Abs (test code = AMONO) 0.6 K/cumm 0.0-1.2 N Eos Abs (test code = AEOS) 0.13 K/cumm 0.00-0.74 N Baso Abs (test code = ABASO) 0.1 K/cumm 0.00-0.21 N POC Glucose, [id number] 16:08:00 Test Item Value Reference Range Interpretation Comments POC Glucose (test code = 457 mg/dL 70-115 HH Not holden RN or POCGLUC) POC Glucose, [id number] 07:43:00 Test Item Value Reference Range Interpretation Comments POC Glucose (test 239 mg/dL 70-115 H If you con software quality specialist your code = POCGLUC) patient crit ically ill, the Ricky Accu- Chek InformII meters hould not be used for Glu cose determinations. Draw a venous Glucose and send to the Main Lab for Analysis. POC Glucose, [id number] 03:18:00 Test Item Value Reference Range Interpretation Comments POC Glucose (test 376 mg/dL 70-115 H If you con software quality specialist your code = POCGLUC) patient crit ically ill, the Ricky Accu- Chek InformII meters hould not be used for Glu cose determinations. Draw a venous Glucose and send to the Main Lab for Analysis. POC Glucose, [id number] 03:14:00 Test Item Value Reference Range Interpretation Comments POC Glucose (test code = 402 mg/dL 70-115 HH Not holden RN or MD POCGLUC) Alcohol/Ethanol, [id number] 02:35:00 Test Item Value Reference Range Interpretation Comments Alcohol, Ethyl <0.01 g/dL 0.00-0.01 N Intoxicated 0.080 (test code = ETOH) g/dL or m ore Urinalysis [id number] 02:19:00 Test Item Value Reference Range Interpretation Comments Color (test code = COLOR) Yellow Yellow,Straw,Pl N yellow Clarity (test code = Clear Clear N CLAR) Specific [place] (test 1.031 1.001-1.035 N code = SPGR) [...] Bacteria (test code = None /HPF BACT) [id number] 02:19:00 Test Item Value Reference Range Interpretation [...] 0.00-0.01 N code = ETOHU) Comprehensive Metabolic [id number] 02:13:00 Test Item Value Reference Range Interpretation [...] National Kidney Foundation,http ://nkd ep.nih.gov CBC with [id number] 02:06:00 Test Item Value Reference Range Interpretation [...] code = ALYMPH) 2.1 K/cumm 0.5-4.6 N Howard Abs (test code = AMONO) 0.6 K/cumm 0.0-1.2 N Eos Abs (test code = AEOS) 0.17 K/cumm 0.00-0.74 N Baso Abs (test code = ABASO) 0.1 K/cumm 0.00-0.21 N POC Glucose, [id number] 00:47:00 Test Item Value Reference Range Interpretation Comments POC Glucose (test 341 mg/dL 70-115 H If you con software quality specialist your code = POCGLUC) patient crit ically ill, the Ricky Accu- Chek InformII meters hould not be used for Glu cose determinations. Draw a venous Glucose and send to the Main Lab for Analysis. CBC with [id number] 13:38:00 Test Item Value Reference Range Interpretation [...] code = ALYMPH) 2.1 K/cumm 0.5-4.6 N Howard Abs (test code = AMONO) 0.6 K/cumm 0.0-1.2 N Eos Abs (test code = AEOS) 0.13 K/cumm 0.00-0.74 N Baso Abs (test code = ABASO) 0.1 K/cumm 0.00-0.21 N Comprehensive Metabolic [id number] 13:36:00 Test Item Value Reference Range Interpretation [...] ars ofage have not been validated by niles armas MDRD study and norma mosquera be interpretedwith caution.eGFR Re sult Interpretation: eGFR > or = 60 is in t he Normal RangeeGF R < 60 may mean kidney diseaseeGFR < 1 5 may mean kidney failureRange s recommended by the National Kidney Foundation,http ://nkd ep.nih.gov XR FOOT [id number] 13:13:25XR ANKLE 2V-RIGHT, XR FOOT 2V-RIGHTLOCATION: [id number]:fallCOMPARISON: None.DISCUSSION:Frontal, oblique, and lateral radiographs of the right ankle and rightfoot were obtained. No fracture, dislocation, lytic or blastic lesions are identified. The joint spaces are preserved.IMPRESSION:No acute osseous abnormalities.XR ANKLE [id number] 13:13:25XR ANKLE 2V-RIGHT, XR FOOT 2V-RIGHTLOCATION: [id number]:fallCOMPARISON: None.DISCUSSION:Frontal, oblique, and lateral radiographs of the right ankle and rightfoot were obtained. No fracture, dislocation, lytic or blastic lesions are identified. The joint spaces are preserved.IMPRESSION:No acute osseous abnormalities.POC Glucose, [id number] 20:04:00 Test Item Value Reference Range Interpretation Comments POC Glucose (test 343 mg/dL 70-115 H If you con software quality specialist your code = POCGLUC) patient crit ically ill, the Ricky Accu- Chek InformII meters hould not be used for Glu cose determinations. Draw a venous Glucose and send to the Main Lab for Analysis. POC Glucose, [id number] 23:43:00 Test Item Value Reference Range Interpretation Comments POC Glucose (test 160 mg/dL 70-115 H If you con software quality specialist your code = POCGLUC) patient crit ically ill, the Ricky Accu- Chek InformII meters hould not be used for Glu cose determinations. Draw a venous Glucose and send to the Main Lab for Analysis. Alcohol/Ethanol, [id number] 22:56:00 Test Item Value Reference Range Interpretation Comments Alcohol, Ethyl <0.01 g/dL 0.00-0.01 N Intoxicated 0.080 (test code = ETOH) g/dL or m [facility] Comprehensive Metabolic [id number] 22:56:00 Test Item Value Reference Range Interpretation Comments Sodium (test code = 133 mmol/L 135-145 L NA) Potassium (test 3.9 mmol/L 3.5-5.1 N code = K) Chloride (test code 93 mmol/L 98-105 L = CL) Carbon Dioxide 28 mmol/L 22-29 N (test code = CO2) Glucose (test code 435 mg/dL 70-115 HH VERIFIED BY REPEAT = GLU) TESTINGREAD DARSHAN K LAB VALUESD AUERA RN 22:55 7./OG Blood Urea Nitrogen 17 mg/dL [...] is not provided , and the patient isAfangie-Chelo can, multiply by 1.2 12. If sex [...] by the National Kidney Foundation,http ://nkd ep.nih.gov [id number] 22:50:00 Test Item Value Reference Range Interpretation [...] g/dL 0.00-0.01 N code = ETOHU) Urinalysis [id number] 22:38:00 Test Item Value Reference Range Interpretation Comments Color (test code = COLOR) Yellow Yellow,Straw,Pl N yellow Clarity (test code = Clear Clear N CLAR) Specific [place] (test 1.029 1.001-1.035 N code = SPGR) [...] code = None /HPF BACT) CBC with [id number] 22:30:00 Test Item Value Reference Range Interpretation [...] code = ALYMPH) 2.2 K/cumm 0.5-4.6 N Howard Abs (test code = AMONO) 0.6 K/cumm 0.0-1.2 N Eos Abs (test code = AEOS) 0.23 K/cumm 0.00-0.74 N Baso Abs (test code = ABASO) 0.1 K/cumm 0.00-0.21 N POC Glucose, [id number] 22:08:00 Test Item Value Reference Range Interpretation Comments POC Glucose (test code = POCGLUC) 431 mg/dL 70-115 HH Comprehensive Metabolic [id number] 23:34:00 Test Item Value Reference Range Interpretation [...] by the National Kidney Foundation,http ://nkd ep.nih.gov [id number] 23:33:00 Test Item Value Reference Range Interpretation [...] g/dL 0.00-0.01 H code = ETOHU) Urinalysis [id number] 23:26:00 Test Item Value Reference Range Interpretation Comments Color (test code = COLOR) Yellow Yellow,Straw,Pl N yellow Clarity (test code = Clear Clear N CLAR) Specific [place] (test 1.014 1.001-1.035 N code = SPGR) [...] code = None /HPF BACT) CBC with [id number] 23:16:00 Test Item Value Reference Range Interpretation [...] code = ALYMPH) 3.6 K/cumm 0.5-4.6 N Howard Abs (test code = AMONO) 0.5 K/cumm 0.0-1.2 N Eos Abs (test code = AEOS) 0.15 K/cumm 0.00-0.74 N Baso Abs (test code = ABASO) 0.1 K/cumm 0.00-0.21 N POC Glucose, [id number] 12:49:00 Test Item Value Reference Range Interpretation Comments POC Glucose (test 314 mg/dL 70-115 H If you con software quality specialist your code = POCGLUC) patient crit ically ill, the Ricky Accu- Chek InformII meters hould not be used for Glu cose determinations. Draw a venous Glucose and send to the Main Lab for Analysis. Comprehensive Metabolic [id number] 10:37:00 Test Item Value Reference Range Interpretation [...] the National Kidney Foundation,http ://nkd ep.nih.gov Urinalysis [id number] 10:35:00 Test Item Value Reference Range Interpretation Comments Color (test code = COLOR) Yellow Yellow,Straw,Pl N yellow Clarity (test code = Clear Clear N CLAR) Specific [place] (test 1.036 1.001-1.035 H code = SPGR) [...] Bacteria (test code = None /HPF BACT) [id number] 10:31:00 Test Item Value Reference Range Interpretation [...] 0.00-0.01 N code = ETOHU) CBC with [id number] 10:30:00 Test Item Value Reference Range Interpretation [...] code = ALYMPH) 2.3 K/cumm 0.5-4.6 N Howard Abs (test code = AMONO) 0.4 K/cumm 0.0-1.2 N Eos Abs (test code = AEOS) 0.08 K/cumm 0.00-0.74 N Baso Abs (test code = ABASO) 0.1 K/cumm 0.00-0.21 N Glycosylated [id number] 12:49:00 Test Item Value Reference Range Interpretation Comments HBA1c (test code = HBA1C) 11.8 % 4.8-5.9 H RPR, [id number] 12:31:00 Test Item Value Reference Range Interpretation Comments RPR (test code = RPR) Non-Reactive Non-Reactive N Thyroid Stimulating Hormone (TSH)2017-02-19 09:41:00 Test Item Value Reference Range Interpretation Comments TSH (test code = TSH) 1.85 mIU/mL 0.270-4.200 N Lipid [id number] 09:36:00 Test Item Value Reference Range Interpretation Comments Cholesterol (test 170 mg/dL 0-200 N code = CHOL) Triglycerides (test 107 mg/dL 9-200 N code = TRIG) HDL (test code = 40 mg/dL 40-60 N HDL) Chol/HDL (test code 4.3 Ratio 0.0-5.0 N = CHOLPHDL) LDL, Calculated 109 0-130 N (NOTE)RISK O F HEART (test code = LDLC) DISEASEPu blished by [place] Heart AssociationAnal yte Optim al Boderline Increased RiskC HOL <200 200-239 >240TRI G <150 150-199 >200HDL Male: >60 <40HDL Female: >60 <50 LDL < 100 130-15 9 >160 LDL NEAR OPTIMAL IS 100- 129 VLDL (test code = 21 mg/dL 5-40 N VLDL) LDL/HDL (test code = 3 LDLPHDL) POC Glucose, [id number] 06:04:00 Test Item Value Reference Range Interpretation Comments POC Glucose (test 256 mg/dL 70-115 H If you con software quality specialist your code = POCGLUC) patient crit ically ill, the Ricky Accu- Chek InformII meters hould not be used for Glu cose determinations. Draw a venous Glucose and send to the Main Lab for Analysis. POC Glucose, [id number] 22:06:00 Test Item Value Reference Range Interpretation Comments POC Glucose (test 226 mg/dL 70-115 H If you con software quality specialist your code = POCGLUC) patient crit ically ill, the Ricky Accu- Chek InformII meters hould not be used for Glu cose determinations. Draw a venous Glucose and send to the Main Lab for Analysis. POC Glucose, [id number] 18:18:00 Test Item Value Reference Range Interpretation Comments POC Glucose (test 192 mg/dL 70-115 H If you con software quality specialist your code = POCGLUC) patient crit ically ill, the Ricky Accu- Chek InformII meters hould not be used for Glu cose determinations. Draw a venous Glucose and send to the Main Lab for Analysis. POC Glucose, [id number] 14:44:00 Test Item Value Reference Range Interpretation Comments POC Glucose (test 263 mg/dL 70-115 H If you con software quality specialist your code = POCGLUC) patient crit ically ill, the Ricky Accu- Chek InformII meters hould not be used for Glu cose determinations. Draw a venous Glucose and send to the Main Lab for Analysis. POC Glucose, [id number] 12:01:00 Test Item Value Reference Range Interpretation Comments POC Glucose (test 277 mg/dL 70-115 H If you con software quality specialist your code = POCGLUC) patient crit ically ill, the Ricky Accu- Chek InformII meters hould not be used for Glu cose determinations. Draw a venous Glucose and send to the Main Lab for Analysis. Comprehensive Metabolic [id number] 12:00:00 Test Item Value Reference Range Interpretation [...] the National Kidney Foundation,http ://nkd ep.nih.gov Alcohol/Ethanol, [id number] 12:00:00 Test Item Value Reference Range Interpretation Comments Alcohol, Ethyl <0.01 g/dL 0.00-0.01 N Intoxicated 0.080 (test code = ETOH) g/dL or m ore Urinalysis [id number] 11:55:00 Test Item Value Reference Range Interpretation Comments Color (test code = COLOR) Yellow Yellow,Straw,Pl N yellow Clarity (test code = Clear Clear N CLAR) Specific [place] (test 1.035 1.001-1.035 N code = SPGR) [...] Bacteria (test code = Few /HPF BACT) [id number] 11:53:00 Test Item Value Reference Range Interpretation [...] = THC) Negative Negative N CBC with [id number] 11:33:00 Test Item Value Reference Range Interpretation [...] code = ALYMPH) 1.9 K/cumm 0.5-4.6 N Howard Abs (test code = AMONO) 1.0 K/cumm 0.0-1.2 N Eos Abs (test code = AEOS) 0.08 K/cumm 0.00-0.74 N Baso Abs (test code = ABASO) 0.0 K/cumm 0.00-0.21 N Alcohol/Ethanol, [id number] 22:23:00 Test Item Value Reference Range Interpretation Comments Alcohol, Ethyl <0.01 g/dL 0.00-0.01 N Intoxicated 0.080 (test code = ETOH) g/dL or m ore Comprehensive Metabolic [id number] 22:23:00 Test Item Value Reference Range Interpretation [...] is not provided , and the patient isAfrican-Amrandall can, multiply by 1.2 12. If sex [...] by the National Kidney Foundation,http ://nkd ep.nih.gov [id number] 22:23:00 Test Item Value Reference Range Interpretation [...] code = THC) Negative Negative N Urinalysis [id number] 22:13:00 Test Item Value Reference Range Interpretation Comments Color (test code = COLOR) Yellow Yellow,Straw,Pl N yellow Clarity (test code = Clear Clear N CLAR) Specific [place] (test 1.029 1.001-1.035 N code = SPGR) [...] code = None /HPF BACT) CBC with [id number] 22:00:00 Test Item Value Reference Range Interpretation [...] code = ALYMPH) 0.9 K/cumm 0.5-4.6 N Howard Abs (test code = AMONO) 0.3 K/cumm 0.0-1.2 N Eos Abs (test code = AEOS) 0.02 K/cumm 0.00-0.74 N Baso Abs (test code = ABASO) 0.0 K/cumm 0.00-0.21 N POC Glucose, [id number] 05:15:00 Test Item Value Reference Range Interpretation Comments POC Glucose (test 270 mg/dL 70-115 H Notify RN or MDIf you code = POCGLUC) consider you r patient critically ill, the Ricky Accu-Chek InformII metershould not be used for Glucose determinations. Draw a venous Glucose and send to the Main Lab for Analysis. POC Glucose, [id number] 19:44:00 Test Item Value Reference Range Interpretation Comments POC Glucose (test 338 mg/dL 70-115 H Notify RN or MDIf you code = POCGLUC) consider you r patient critically ill, the Ricky Accu-Chek InformII metershould not be used for Glucose determinations. Draw a venous Glucose and send to the Main Lab for Analysis. POC Glucose, [id number] 15:20:00 Test Item Value Reference Range Interpretation Comments POC Glucose (test 338 mg/dL 70-115 H Notify RN or MDIf you code = POCGLUC) consider you r patient critically ill, the Ricky Accu-Chek InformII metershould not be used for Glucose determinations. Draw a venous Glucose and send to the Main Lab for Analysis. POC Glucose, [id number] 13:31:00 Test Item Value Reference Range Interpretation Comments POC Glucose (test code = 443 mg/dL 70-115 HH Not holden RN or MD POCGLUC) POC Glucose, [id number] 10:39:00 Test Item Value Reference Range Interpretation Comments POC Glucose (test code = 560 mg/dL 70-115 HH Not holden RN or MD POCGLUC) Thyroid Stimulating Hormone (TSH)2017-02-14 08:52:00 Test Item Value Reference Range Interpretation Comments TSH (test code = TSH) 1.40 mIU/mL 0.270-4.200 N Comprehensive Metabolic [id number] 08:31:00 Test Item Value Reference Range Interpretation [...] the National Kidney Foundation,http ://nkd ep.nih.gov Lipid [id number] 08:31:00 Test Item Value Reference Range Interpretation [...] (test code = LDLC) DISEASEPu blished by [place] Heart AssociationAnal yte Optim al Boderline Increased RiskC HOL <200 200-239 >240TRI G <150 150-199 >200HDL Male: >60 <40HDL Female: >60 <50 LDL < 100 130-15 9 >160 LDL NEAR OPTIMAL IS 100- 129 VLDL (test code = 69 mg/dL 5-40 H VLDL) LDL/HDL (test code = 4 LDLPHDL) RPR, [id number] 06:26:00 Test Item Value Reference Range Interpretation Comments RPR (test code = RPR) Non-Reactive Non-Reactive N Thyroid Stimulating Hormone (TSH)2017-02-13 23:13:00 Test Item Value Reference Range Interpretation Comments TSH (test code = TSH) 2.10 mIU/mL 0.270-4.200 N Lipid [id number] 23:13:00 Test Item Value Reference Range Interpretation Comments Cholesterol (test 255 mg/dL 0-200 H code = CHOL) Triglycerides (test 559 mg/dL 9-200 H code = TRIG) HDL (test code = 32 mg/dL 40-60 L HDL) Chol/HDL (test code 8.0 Ratio 0.0-5.0 H = CHOLPHDL) LDL, Calculated No Calc 0-130 N (NOTE)RISK O F HEART (test code = LDLC) DISEASEPu blished by [place] Heart AssociationAnal yte Optim al Boderline Increased RiskC HOL <200 200-239 >240TRI G <150 150-199 >200HDL Male: >60 <40HDL Female: >60 <50 LDL < 100 130-15 9 >160 LDL NEAR OPTIMAL IS 100-129\\LIPIDNC VLDL (test code = No Calc 5-40 N \\LIPIDNC VLDL) mg/dL LDL/HDL (test code = No Calc \\LIPIDN C LDLPHDL) POC Glucose, [id number] 16:09:00 Test Item Value Reference Range Interpretation Comments POC Glucose (test 340 mg/dL 70-115 H If you con software quality specialist your code = POCGLUC) patient crit ically ill, the Ricky Accu- Chek InformII meters hould not be used for Glu cose determinations. Draw a venous Glucose and send to the Main Lab for Analysis. POC Glucose, [id number] 11:08:00 Test Item Value Reference Range Interpretation Comments POC Glucose (test 336 mg/dL 70-115 H If you con software quality specialist your code = POCGLUC) patient crit ically ill, the Ricky Accu- Chek InformII meters hould not be used for Glu cose determinations. Draw a venous Glucose and send to the Main Lab for Analysis. POC Glucose, [id number] 08:05:00 Test Item Value Reference Range Interpretation Comments POC Glucose (test 325 mg/dL 70-115 H If you con software quality specialist your code = POCGLUC) patient crit ically ill, the Ricky Accu- Chek InformII meters hould not be used for Glu cose determinations. Draw a venous Glucose and send to the Main Lab for Analysis. POC Glucose, [id number] 06:27:00 Test Item Value Reference Range Interpretation Comments POC Glucose (test 338 mg/dL 70-115 H If you con software quality specialist your code = POCGLUC) patient crit ically ill, the Ricky Accu- Chek InformII meters hould not be used for Glu cose determinations. Draw a venous Glucose and send to the Main Lab for Analysis. POC Glucose, [id number] 05:02:00 Test Item Value Reference Range Interpretation Comments POC Glucose (test code = 461 mg/dL 70-115 HH Not holden ZELAYA or POCGLUC) Comprehensive Metabolic [id number] 23:52:00 Test Item Value Reference Range Interpretation Comments Sodium (test code = 131 mmol/L 135-145 L NA) Potassium (test 3.8 mmol/L 3.5-5.1 N code = K) Chloride (test code 94 mmol/L 98-105 L = CL) Carbon Dioxide 25 mmol/L 22-29 N (test code = CO2) Glucose (test code 442 mg/dL 70-115 HH READ BACK LAB = GLU) VALUESVERIFIED BY REPEAT TESTINGT Krystin @1152pm 02/13/20 17 kms Blood Urea Nitrogen [...] the National Kidney Foundation,http ://nkde p.nih.gov Urinalysis [id number] 23:37:00 Test Item Value Reference Range Interpretation Comments Color (test code = COLOR) Yellow Yellow,Straw,Pl N yellow Clarity (test code = Clear Clear N CLAR) Specific [place] (test 1.027 1.001-1.035 N code = SPGR) [...] Bacteria (test code = None /HPF BACT) [id number] 23:36:00 Test Item Value Reference Range Interpretation [...] 0.00-0.01 N code = ETOHU) CBC with [id number] 23:10:00 Test Item Value Reference Range Interpretation [...] code = ALYMPH) 3.2 K/cumm 0.5-4.6 N Howard Abs (test code = AMONO) 0.4 K/cumm 0.0-1.2 N Eos Abs (test code = AEOS) 0.23 K/cumm 0.00-0.74 N Baso Abs (test code = ABASO) 0.1 K/cumm 0.00-0.21 N POC Glucose, [id number] 02:01:00 Test Item Value Reference Range Interpretation Comments POC Glucose (test code = 410 mg/dL 70-115 HH Not holden RN or POCGLUC) Comprehensive Metabolic [id number] 23:58:00 Test Item Value Reference Range Interpretation [...] is not provided , and the patient isCathy-Chelo can, multiply by 1.2 12. If sex [...] the National Kidney Foundation,http ://nkd ep.nih.govverp rblv [id number] 23:28:00 Test Item Value Reference Range Interpretation [...] g/dL 0.00-0.01 N code = ETOHU) Urinalysis [id number] 23:27:00 Test Item Value Reference Range Interpretation Comments Color (test code = COLOR) Straw Yellow,Straw,Pl N yellow Clarity (test code = Clear Clear N CLAR) Specific [place] (test 1.031 1.001-1.035 N code = SPGR) [...] code = None /HPF BACT) CBC with [id number] 23:18:00 Test Item Value Reference Range Interpretation [...] code = ALYMPH) 2.9 K/cumm 0.5-4.6 N Howard Abs (test code = AMONO) 0.5 K/cumm 0.0-1.2 N Eos Abs (test code = AEOS) 0.17 K/cumm 0.00-0.74 N Baso Abs (test code = ABASO) 0.1 K/cumm 0.00-0.21 N Urinalysis [id number] 06:46:00 Test Item Value Reference Range Interpretation Comments Color (test code = COLOR) Straw Yellow,Straw,Pl N yellow Clarity (test code = Clear Clear N CLAR) Specific [place] (test 1.032 1.001-1.035 N code = SPGR) [...] Bacteria (test code = Occ /HPF BACT) [id number] 06:07:00 Test Item Value Reference Range Interpretation [...] 0.00-0.01 N code = ETOHU) Comprehensive Metabolic [id number] 05:33:00 Test Item Value Reference Range Interpretation [...] by th e MDRD study and norma d be interpretedwith caution.eGFR Re sult Interpretation: eGFR > or = 60 is in t he Normal RangeeGF R < 60 may mean kidney diseaseeGFR < 1 5 may mean kidney failureRange s recommended by the National Kidney Foundation,http ://nkd ep.nih.gov CBC with [id number] 05:08:00 Test Item Value Reference Range Interpretation [...] code = ALYMPH) 1.4 K/cumm 0.5-4.6 N Howard Abs (test code = AMONO) 0.5 K/cumm 0.0-1.2 N Eos Abs (test code = AEOS) 0.06 K/cumm 0.00-0.74 N Baso Abs (test code = ABASO) 0.1 K/cumm 0.00-0.21 N Basic Metabolic [id number] 21:36:00 Test Item Value Reference Range Interpretation [...] National Kidney Foundation,http ://nkd ep.nih.gov Basic Metabolic [id number] 20:55:00 Test Item Value Reference Range Interpretation [...] National Kidney Foundation,http ://nkd ep.nih.gov POC Glucose, [id number] 20:43:00 Test Item Value Reference Range Interpretation Comments POC Glucose (test 316 mg/dL 70-115 H Notify RN or MDIf you code = POCGLUC) consider you r patient critically ill, the Ricky Accu-Chek InformII metershould not be used for Glucose determinations. Draw a venous Glucose and send to the Main Lab for Analysis. POC Glucose, [id number] 20:12:00 Test Item Value Reference Range Interpretation Comments POC Glucose (test 309 mg/dL 70-115 H Notify RN or MDIf you code = POCGLUC) consider you r patient critically ill, the Ricky Accu-Chek InformII metershould not be used for Glucose determinations. Draw a venous Glucose and send to the Main Lab for Analysis. POC Glucose, [id number] 18:58:00 Test Item Value Reference Range Interpretation Comments POC Glucose (test 339 mg/dL 70-115 H Notify RN or MDIf you code = POCGLUC) consider you r patient critically ill, the Ricky Accu-Chek InformII metershould not be used for Glucose determinations. Draw a venous Glucose and send to the Main Lab for Analysis. Urinalysis [id number] 18:17:00 Test Item Value Reference Range Interpretation Comments Color (test code = COLOR) Straw Yellow,Straw,Pl N yellow Clarity (test code = Clear Clear N CLAR) Specific [place] (test 1.028 1.001-1.035 N code = SPGR) [...] code = Few /HPF BACT) Comprehensive Metabolic [id number] 17:27:00 Test Item Value Reference Range Interpretation [...] National Kidney Foundation,http ://nkd ep.nih.gov CBC with [id number] 16:50:00 Test Item Value Reference Range Interpretation [...] code = ALYMPH) 2.0 K/cumm 0.5-4.6 N Howard Abs (test code = AMONO) 0.6 K/cumm 0.0-1.2 N Eos Abs (test code = AEOS) 0.09 K/cumm 0.00-0.74 N Baso Abs (test code = ABASO) 0.1 K/cumm 0.00-0.21 N [id number] 16:31:00 Test Item Value Reference Range Interpretation [...]
[2020-09-13 12:20] LABS: Urine Blood Negative (Negative); Urine Glucose 2+ (Negative); Urine Protein Negative (Negative); Urine Specific Gravity 1.015 (1.005-1.030)
[2020-09-13 12:27] LABS: Absolute Lymphocytes (CBC) 1.9 K/uL (0.7-4.9); Basophils % 1.3 % (0-1.3); Hematocrit 42.6 % (39.6-49.0); Lymphocytes % 28.7 % (15.3-44.8); MPV 9.1 fL (7.6-11.3); RBC Red Blood Cell Count 4.64 M/uL (4.33-5.43)
[2020-09-13 12:35] LABS: Protime INR 0.96
[2020-09-13] MEDS ORDERED: NA CHLORIDE 0.9% 1,000 ML ONE (12:43)
[2020-09-13 12:44] LABS: Barbiturates NEGATIVE (NEGATIVE); Benzodiazepines NEGATIVE (NEGATIVE); Cocaine NEGATIVE (NEGATIVE); METHAMPHETAM POSITIVE (NEGATIVE); Methadone NEGATIVE (NEGATIVE); Opiates NEGATIVE (NEGATIVE); Phencyclidine NEGATIVE (NEGATIVE); THC Cannibis NEGATIVE (NEGATIVE)
[2020-09-13 12:48] LABS: Albumin 3.4 g/dL (3.4-5.0); Alkaline Phosphatase 274 U/L (45-117); BUN Blood Urea Nitrogen 8 mg/dL (7-18); Bicarbonate 27 mmol/L (21-32); Bilirubin Direct 0.2 mg/dL (0-0.2); Bilirubin Total 0.5 mg/dL (0.2-1.0); Protein, Total 7.3 g/dL (6.4-8.2); Sodium Level 132 mmol/L (136-145)
[2020-09-13 12:49] LABS: AST/SGOT 193 U/L (15-37); Potassium 3.8 mmol/L (3.5-5.1)
--- NOTE | 2020-09-13 12:50 | ER ---
Nurse's Notes [facility] Name: Bryn Camargo Age: 44 yrs Sex: Male : 1975 Arrival Date: 09/13/2020 Time: 11:53 Bed 18 Private MD: Diagnosis: Schizophrenia, unspecified;Dehydration Presentation: 09/13 11:53 Chief complaint: Patient states: States he is hearing voices and felt suicidal last ll1 night. Took extra dose of his psych meds to try to stop the voices. Denies SI/HI at this time. States he wants to go to the crisis center in [place] again. Coronavirus screen: Client denies travel out of the [place] in the last 14 days. At this time, the client does not indicate any symptoms associated with coronavirus-19. Ebola Screen: Patient denies travel to an Ebola-affected area in the 21 days before illness onset. Initial Sepsis Screen: Does the patient meet any 2 criteria? HR > 90 bpm. No. Patient's initial sepsis screen is negative. Does the patient have a suspected source of infection? No. Patient's initial sepsis screen is negative. Risk Assessment: Do you want to hurt yourself or someone else? Patient reports no desire to harm self or others. Onset of symptoms was September 12, 2020. 11:53 Method Of Arrival: EMS: [facility] ll1 11:53 Acuity: [facility] 2 ll1 Historical: - Allergies: 11:57 No Known Allergies; ll1 - PMHx: 11:57 Anxiety; Depression; Schizophrenia; ll1 - PSHx: 11:57 Appendectomy; testical SX; ll1 - Immunization history:: Flu vaccine is not up to date. - Social history:: Smoking status: Patient reports the use of cigarette tobacco products, smokes one-half pack cigarettes per day. - Family history:: not pertinent. - Hospitalizations: : No recent hospitalization is reported. Screenin:53 Abuse screen: Denies threats or abuse. Nutritional screening: No deficits noted. ll1 Tuberculosis screening: No symptoms or risk factors identified. Fall Risk IV access (20 points). Total Phillips Fall Scale indicates No Risk (0-24 pts). Assessment: 12:00 General: Appears in no apparent distress. Behavior is calm, cooperative, Reports ll1 hearing voices. Pain: Denies pain. Neuro: No deficits noted. Cardiovascular: No deficits noted. Respiratory: No deficits noted. GI: No deficits noted. 12:45 Reassessment: No changes from previously documented assessment. Patient and/or family ll1 updated on plan of care and expected duration. Pain level reassessed. Patient is alert, oriented x 3, equal unlabored respirations, skin warm/dry/pink. Psych: 12:54 Magazine Suicide Severity Screening: In the past month, have you wished you were ll1 or wished you could go to sleep and not wake up? Patient responds "No." "In the past month, have you actually had any thoughts of killing yourself?" Patient responds "no." "In your lifetime, have you ever done anything, started to do anything, or prepared to do anything to end your life?" Patient responds "yes." Patient reports suicidal intent occurred greater than 3 months prior. Subjective: Hallucinations are auditory. Objective: Speech is normal. Interventions: Patient placed in hospital gown. Urine collected and sent for urine drug test. Safety Checks: Door is open. No visitors are present at this time. Pt denies substance abuse. 12:55 Commitment: Patient will be a voluntary commitment. ll1 Vital Signs: 11:53 BP 140 / 71; Pulse 93; Resp 17; Temp 98.2; Pulse Ox 97% ; Pain 9/10; ll1 12:58 BP 144 / 75; Pulse 87; Resp 16; Pulse Ox 97% on R/A; ll1 ED Course: 11:53 Patient arrived in ED. ll1 11:53 Arm band placed on Patient placed in an exam room, on a stretcher. ll1 11:54 Valentin Aguilera MD is Attending Physician. rn 11:56 Triage completed. ll1 11:57 Suad García, GARCIA is Primary Nurse. ll1 12:10 Patient has correct armband on for positive identification. Bed in low position. Call ll1 light in reach. Side rails up X 1. Pulse ox on. NIBP on. 12:11 Inserted saline lock: 22 gauge in right forearm, using aseptic technique. Blood ll1 collected. 12:54 No provider procedures requiring assistance completed. IV discontinued, intact, ll1 bleeding controlled, No redness/swelling at site. Pressure dressing applied. Administered Medications: 12:52 Not Given (Patient Refused): NS 0.9% 1000 ml IV at 1000 ml once ll1 Outcome: 12:55 AMA AMA form signed ll1 12:55 Condition: stable 12:55 Discharge instructions given to patient, Instructed on AMA form Demonstrated understanding of instructions. 12:55 Patient left the ED. ll1 Signatures: Valentin Aguilera MD MD rn Suad García RN RN [facility]
--- NOTE | 2020-09-13 12:50 | EDPHYS ---
Physician Documentation [facility] Name: Bryn Camargo Age: 44 yrs Sex: Male : 1975 Arrival Date: 09/13/2020 Time: 11:53 Bed 18 Private MD: ED Physician Valentin Aguilera HPI: 09/13 12:45 This 44 yrs old Male presents to ER via EMS with complaints of Psych Problem rn - hearing voices. 12:45 The patient presents to the emergency department with hearing voices. Onset: The rn symptoms/episode began/occurred at an unknown time. Severity of symptoms: At their worst the symptoms were moderate in the emergency department the symptoms have improved. The patient has experienced similar episodes in the past, chronically. The patient has not recently seen a physician. Pt reports not feeling well last night, was hearing voices, hearing voices for a while now, has schizophrenia, reports still hearing voices after taking double his psych meds last night. Denies suicidal ideations/homicidal ideations. Reports sugar a little elevated. No fever. NO cough. No chest pain/sob/abd pain/vomiting/diarrhea.. Historical: - Allergies: 11:57 No Known Allergies; ll1 - PMHx: 11:57 Anxiety; Depression; Schizophrenia; ll1 - PSHx: 11:57 Appendectomy; testical SX; ll1 - Immunization history:: Flu vaccine is not up to date. - Social history:: Smoking status: Patient reports the use of cigarette tobacco products, smokes one-half pack cigarettes per day. - Family history:: not pertinent. - Hospitalizations: : No recent hospitalization is reported. ROS: 12:47 Constitutional: Negative for fever, chills, and weight loss, Eyes: Negative for injury, rn pain, redness, and discharge, Neck: Negative for injury, pain, and swelling, Cardiovascular: Negative for chest pain, palpitations, and edema, Respiratory: Negative for shortness of breath, cough, wheezing, and pleuritic chest pain, Abdomen/GI: Negative for abdominal pain, nausea, vomiting, diarrhea, and constipation, Back: Negative for injury and pain, MS/Extremity: Negative for injury and deformity, Skin: Negative for injury, rash, and discoloration, Neuro: Negative for headache, weakness, numbness, tingling, and seizure, Psych: Negative for suicide ideation, homicidal ideation Exam: 12:47 Constitutional: This is a well developed, well nourished patient who is awake, alert, rn and in no acute distress. Head/Face: Normocephalic, atraumatic. Eyes: Pupils equal round and reactive to light, extra-ocular motions intact. Lids and lashes normal. Conjunctiva and sclera are non-icteric and not injected. Cornea within normal limits. Periorbital areas with no swelling, redness, or edema. ENT: dry MM Neck: Trachea midline, no thyromegaly or masses palpated, and no cervical lymphadenopathy. Supple, full range of motion without nuchal rigidity, or vertebral point tenderness. No Meningismus. Cardiovascular: Regular rate and rhythm with a normal S1 and S2. No gallops, murmurs, or rubs. Normal PMI, no JVD. No pulse deficits. Respiratory: Lungs have equal breath sounds bilaterally, clear to auscultation and percussion. No rales, rhonchi or wheezes noted. No increased work of breathing, no retractions or nasal flaring. Abdomen/GI: Soft, non-tender, with normal bowel sounds. No distension or tympany. No guarding or rebound. No evidence of tenderness throughout. Skin: Warm, dry with normal turgor. Normal color with no rashes, no lesions, and no evidence of cellulitis. MS/ Extremity: Pulses equal, no cyanosis. Neurovascular intact. Full, normal range of motion. Equal circumference. Neuro: Awake and alert, GCS 15, oriented to person, place, time, and situation. Cranial nerves II-XII grossly intact. Motor strength 5/5 in all extremities. Sensory grossly intact. Cerebellar exam normal. Psych: Awake, alert, with orientation to person, place and time. Behavior, mood, and affect are within normal limits. Vital Signs: 11:53 BP 140 / 71; Pulse 93; Resp 17; Temp 98.2; Pulse Ox 97% ; Pain 9/10; ll1 12:58 BP 144 / 75; Pulse 87; Resp 16; Pulse Ox 97% on R/A; ll1 MDM: 11:54 Patient medically screened. rn 12:47 Differential diagnosis: psychosis secondary to non-compliance, dehydration. Data rn reviewed: vital signs, nurses notes. ED course: Pt now states feels better, wants to go home. Again denies suicidal or homicidal ideation, patient signs out AMA. . 09/13 11:55 Order name: Acetaminophen rn 09/13 11:55 Order name: Basic Metabolic Panel rn 09/13 11:55 Order name: CBC with Diff; Complete Time: 12:50 rn 09/13 11:55 Order name: Hepatic Function rn 09/13 11:55 Order name: PT-INR; Complete Time: 12:50 rn 09/13 11:55 Order name: Ptt, Activated; Complete Time: 12:50 rn 09/13 11:55 Order name: Salicylate; Complete Time: 12:50 rn 09/13 11:55 Order name: Urine Drug Screen; Complete Time: 12:50 rn 09/13 11:55 Order name: EKG - Nurse/Tech rn 09/13 11:55 Order name: IV Saline Lock; Complete Time: 11:57 rn 09/13 12:19 Order name: Urine Dipstick-Ancillary [facility] 09/13 11:55 Order name: Labs collected and sent; Complete Time: 11:57 rn 09/13 11:55 Order name: Suicide Screening ([place]); Complete Time: 11:57 rn 09/13 11:55 Order name: Urine Dipstick-Ancillary (obtain specimen); Complete Time: 12:52 rn 09/13 11:55 Order name: Glucose Level rn Administered Medications: 12:52 Not Given (Patient Refused): NS 0.9% 1000 ml IV at 1000 ml once ll1 Disposition: 09/13/20 12:49 Patient has left against medical advice. Impression: Schizophrenia, unspecified, Dehydration. - Patients states they are going to Home. - Condition is Stable. - Discharge Instructions: Dehydration, Adult, Schizophrenia. Follow up: Private Physician; When: As needed; Reason: Recheck today's complaints, Re-evaluation by your physician. - Problem is an ongoing problem. - Symptoms have improved. Signatures: Dispatcher [employer] EDValentin Vera MD MD rn Lewis, Lynsay, RN RN ll1 Corrections: (The following items were deleted from the chart) 12:55 12:49 09/13/2020 12:49 Patients has left against medical advice. Impression: ll1 Schizophrenia, unspecified; Dehydration. Patient states they are going to Home. Condition is Stable. Follow up: Private Physician; When: As needed; Reason: Recheck today's complaints, Re-evaluation by your physician. Problem is an ongoing problem. Symptoms have improved. rn
[2020-09-13 12:51] LABS: ALT/SGPT 700 U/L (12-78); Glucose Level 484 mg/dL (74-106)
[2020-09-13 13:01] VITALS: BP 140/71; TEMP 98.2; O2SAT 97
== END 2020-09-13 12:55 | disposition left against medical advice (07) ==
LOC: ER 11:50
DX: F20.9 Schizophrenia, unspecified (principal); E86.0 Dehydration; Z53.29 Procedure and treatment not carried out because of patient's decision for other reasons; F17.210 Nicotine dependence, cigarettes, uncomplicated; F41.9 Anxiety disorder, unspecified; F32.9 Major depressive disorder, single episode, unspecified
CPT/HCPCS: 85025; 80048; 36415; 80329 ×2; 85610; 80076; 80307 ×8; 85730; 81003; 99284; J7030

== ENCOUNTER 2020-09-13 14:58 | Emergency (ER) | payer MEDICAID ==
--- OUTSIDE RECORDS SUMMARY | 2020-09-13 15:18 | XMS REPORT | Continuity of Care Document ---
:1975 Author Organization [facility] t Address [address] [place] [address] Care Team Providers Name Role Phone PCP [...] R Attending Clinician Olivia CONNELLY Attending Clinician MD SUNNY CALERO Attending Clinician Unavailable Sunny Calero MD Attending Clinician Javier LEGER Attending Clinician Shoaib RENTERIA Attending Clinician Torres Heck MD Attending Clinician MD TORRES HECK Attending Clinician Unavailable Suman Ko MD Attending Clinician Franc Ko [...] Unavailable MD TORRES HECK Admitting Clinician Unavailable AFSUZY Admitting Clinician Unavailable STEFFANY FELDMAN M.D. Admitting Clinician Unavailable KAMLESH Admitting Clinician Unavailable Rose Mary GOLDMAN Admitting Clinician Unavailable ERIC Admitting Clinician Unavailable JA Admitting Clinician Unavailable SOARES Admitting Clinician Unavailable CRYSTAL Admitting Clinician Unavailable RIAZ RAMOS M.D., Manju Admitting Clinician Unavailable Payers Payer Name Policy Type Policy Effective Date Expiration Date Sour ce Number [place] [id number] 2016 [facility] STAR+PLUS 00:00:00 Method ist [id number] Advance Directives Directive Decision Effective Date Termination Date Comments Sour ce Yes N/A 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 00:00: st not due to not due to 00 a a substance substance or known or known physiologi physiologi tonia tonia condition condition Problem Condition [facility] Allergies, Adverse Reactions, Alerts Allergy Allergy Status Severity Reaction(s) Onset Inactive Treating Comm ents Source Name Type Date Date Clinician No Known DA Active U 2020-0 [facility] 5[facility]28 [place] 00:[facility]: e 00 [facility] No Known DA [facility] Allergie 00:00: s 00 No Known DA Active U 2020-1 [facility] Allergie 1-11 [place] 00:00: e 00 [facility] No Known DA Active U 2020-0 [facility] Allergie 2-10 [place] [facility] 00:00: d 00 [facility] No Known DA Active U 2020-0 [facility] Allergie 2-02 Clear s 00:00: [place] 00 [facility] No Known DA Active U 2019-1 [facility] Allergie 2-10 [place] 00:00: d 00 [facility] No Known DA Active U 2019-1 [facility] Allergie 0-27 Clear s 00:00: [place] 00 [facility] No Known DA Active U 2019-1 [facility] Allergie 0-23 Clear s 00:00: [place] 00 [facility] No Known DA Active U 2019-0 [facility] Allergie 8-03 Clear s 00:00: [place] 00 [facility] No Known DA Active U 2018-0 [facility] Allergie 9-19 Clear s 00:00: [place] 00 [facility] No Known DA Active U 2018-0 [facility] Allergie 5-30 Clear s 00:00: [place] 00 [facility] Social History Social Habit Start Date Stop Date Quantity Comments Source History of tobacco Cigarette Smoker [facility] use [facility] Cigarettes smoked 2020-03-07 2020-03-07 [facility] current (pack per 00:00:00 00:00:00 [facility]i ) - Reported Tobacco use and 2020-03-07 2020-03-07 Never used Thompson exposure 00:00:00 00:00:00 Buddhist Alcohol intake 2020-03-07 2020-03-07 Current drinker [place] 00:00:00 00:00:00 of alcohol Buddhist (finding) History [facility] 2018-03-26 2018-03-26 1 [place] [employer] 00:00:00 00:00:00 Buddhist History [facility] 2018-03-26 2018-03-26 1 [place] [facility] 00:00:00 00:00:00 Buddhist History [facility] 2018-03-26 2018-03-26 1 [place] [facility]-Med 00:00:00 00:00:[address] Sex [birth year] [place] 00:00:00 00:00:00 Buddhist Smoking Status Start Date Stop Date Source Current some day smoker 2020-03-07 00:00:00 [place] Current every day smoker 2017-11-06 00:00:00 [facility] Medications Ordered Filled Start Stop Current Ordering [...] by mouth nightly for 7 days. metFORMIN 2019-2019- No 500mg Q.5D Take 1 [place] [...] 500mg Q.5D Take 1 [place] (GLUCOPHAGE 12-31 10-08 tablet Metho di ) 500 mg 00:00: 00:00 ([address] tablet 00 :00 total) by mouth 2 (two) times a day with meals for 14 days. risperiDONE 2020-0 2020- No .5mg QD Take 0.5 [place] (RisperDAL) 12-31 10-08 tablets Meth sandra 1 MG tablet 00:00: 00:00 (0.[address] 00 :00 total) by mouth nightly for 14 days. divalproex 2019-0 2020- No 500mg Q.5D Take 1 [facility] (Depakote 12-31 tablet Methodi ER) 500 MG 00:00: 23:59 ([address] 24 hr 00 :00 total) by tablet mouth 2 (two) times a day for 14 days. metFORMIN 2020-0 Yes 500mg 500 mg. [place] (GLUCOPHAGE 6-13 [facility]i ) 500 mg 00:00: st tablet 00 glipiZIDE 2019-0 Yes 2.5mg 2.5 mg. [place] (GLUCOTROL) 6-13 Methodi 2.5 MG 24 00:00: st hr tablet 00 LITHIUM 2019-0 Yes Take by [facility] ASPARTATE 2- mouth. Methodi ORAL 01:26: st 35 lisinopriL 2020-0 Yes 5mg QD Take 1 [place] (PRINIVIL) - tablet (5 Meth sandra 5 mg tablet 00:00: mg total) s t 00 by mouth daily. risperiDONE 2019-0 2020- No 1mg QD Take 1 [facility] [facility] (RisperDAL) 2- 09-24 tablet (1 Me thodi 1 MG tablet 00:00: 00:00 mg total) st 00 :00 by mouth daily. metFORMIN 2018-0 2020- No 500mg Take 500 [place] (GLUCOPHAGE 4-05 09-24 mg by Method i ) 500 mg 00:00: 00:[address] tablet 00 :00 lisinopril 2018-[address] (PRINIVIL,Z [facility] [...] Name Observation Time Observation Value Comments Source Respiratory 2020-09-03 10:05:47 No respiratory distress /min 02 Sat by Pulse 2020-09-03 10:05:47 97 /min Oximetry Body Mass Index 2020-09-03 10:05:47 30.6 Height 2020-09-03 10:05:47 162.56\\S\\64 Pulse Rate 2020-09-03 10:05:47 81 /min Respiratory Rate 2020-09-03 10:05:47 16 /min Temperature 2020-09-03 10:05:47 36.6\\S\\98 Weight 2020-09-03 10:05:47 23675.442\\S\\2848 Weight Measurement 2020-09-03 10:05:47 Estimated by Method Patient Respiratory 2020-09-03 09:44:16 No respiratory distress /min 02 Sat by Pulse 2020-09-03 09:44:16 97 /min Oximetry Body Mass Index 2020-09-03 09:44:16 30.6 Height 2020-09-03 09:44:16 162.56\\S\\64 Pulse Rate 2020-09-03 09:44:16 81 /min Respiratory Rate 2020-09-03 09:44:16 16 /min Temperature 2020-09-03 09:44:16 36.6\\S\\98 Weight 2020-09-03 09:44:16 79430.442\\S\\2848 Weight Measurement 2020-09-03 09:44:16 Estimated by Method Patient Respiratory 2020-09-03 09:44:15 No respiratory distress /min 02 Sat by Pulse 2020-09-03 09:44:15 97 /min Oximetry Body Mass Index 2020-09-03 09:44:15 30.6 Height 2020-09-03 09:44:15 162.56\\S\\64 Pulse Rate 2020-09-03 09:44:15 81 /min Respiratory Rate 2020-09-03 09:44:15 16 /min Temperature 2020-09-03 09:44:15 36.6\\S\\98 Weight 2020-09-03 09:44:15 80024.442\\S\\2848 Weight Measurement 2020-09-03 09:44:15 Estimated by Method Patient Respiratory 2020-09-03 09:38:36 No respiratory distress /min 02 Sat by Pulse 2020-09-03 09:38:36 97 /min Oximetry Body Mass Index 2020-09-03 09:38:36 30.6 Height 2020-09-03 09:38:36 162.56\\S\\64 Pulse Rate 2020-09-03 09:38:36 81 /min Respiratory Rate 2020-09-03 09:38:36 16 /min Temperature 2020-09-03 09:38:36 36.6\\S\\98 Weight 2020-09-03 09:38:36 98930.442\\S\\2848 Weight Measurement 2020-09-03 09:38:36 Estimated by Method Patient Respiratory 2020-09-03 09:38:05 No respiratory distress /min 02 Sat by Pulse 2020-09-03 09:38:05 97 /min Oximetry Body Mass Index 2020-09-03 09:38:05 30.6 Height 2020-09-03 09:38:05 162.56\\S\\64 Pulse Rate 2020-09-03 09:38:05 81 /min Respiratory Rate 2020-09-03 09:38:05 16 /min Temperature 2020-09-03 09:38:05 36.6\\S\\98 Weight 2020-09-03 09:38:05 14454.442\\S\\2848 Weight Measurement 2020-09-03 09:38:05 Estimated by Method Patient Respiratory 2020-09-03 09:37:35 No respiratory distress /min 02 Sat by Pulse 2020-09-03 09:37:35 97 /min Oximetry Body Mass Index 2020-09-03 09:37:35 30.6 Height 2020-09-03 09:37:35 162.56\\S\\64 Pulse Rate 2020-09-03 09:37:35 81 /min Respiratory Rate 2020-09-03 09:37:35 16 /min Temperature 2020-09-03 09:37:35 36.6\\S\\98 Weight 2020-09-03 09:37:35 58287.442\\S\\2848 Weight Measurement 2020-09-03 09:37:35 Estimated by Method Patient Respiratory 2020-09-03 09:35:32 No respiratory distress /min 02 Sat by Pulse 2020-09-03 09:35:32 97 /min Oximetry Body Mass Index 2020-09-03 09:35:32 30.6 Height 2020-09-03 09:35:32 162.56\\S\\64 Pulse Rate 2020-09-03 09:35:32 81 /min Respiratory Rate 2020-09-03 09:35:32 16 /min Temperature 2020-09-03 09:35:32 36.6\\S\\98 Weight 2020-09-03 09:35:32 20203.442\\S\\2848 Weight Measurement 2020-09-03 09:35:32 Estimated by Method Patient Respiratory 2020-09-03 06:39:04 No respiratory distress /min 02 Sat by Pulse 2020-09-03 06:39:04 98 /min Oximetry Body Mass Index 2020-09-03 06:39:04 30.6 Height 2020-09-03 06:39:04 162.56\\S\\64 Pulse Rate 2020-09-03 06:39:04 84 /min Respiratory Rate 2020-09-03 06:39:04 18 /min Temperature 2020-09-03 06:39:04 36.8\\S\\98.3 Weight 2020-09-03 06:39:04 41398.442\\S\\2848 Weight Measurement 2020-09-03 06:39:04 Estimated by Method Patient 02 Sat by Pulse 2020-09-03 05:37:41 98 /min Oximetry Body Mass Index 2020-09-03 05:37:41 30.6 Height 2020-09-03 05:37:41 162.56\\S\\64 Pulse Rate 2020-09-03 05:37:41 84 /min Respiratory Rate 2020-09-03 05:37:41 18 /min Temperature 2020-09-03 05:37:41 36.8\\S\\98.3 Weight 2020-09-03 05:37:41 28190.442\\S\\2848 Weight Measurement 2020-09-03 05:37:41 Estimated by Method Patient 02 Sat by Pulse 2020-09-03 04:30:15 98 /min Oximetry Body Mass Index 2020-09-03 04:30:15 30.6 Height 2020-09-03 04:30:15 162.56\\S\\64 Pulse Rate 2020-09-03 04:30:15 84 /min Respiratory Rate 2020-09-03 04:30:15 18 /min Temperature 2020-09-03 04:30:15 36.8\\S\\98.3 Weight 2020-09-03 04:30:15 35009.442\\S\\2848 Weight Measurement 2020-09-03 04:30:15 Estimated by Method Patient 02 Sat by Pulse 2020-09-03 04:14:28 98 /min Oximetry Body Mass Index 2020-09-03 04:14:28 30.6 Height 2020-09-03 04:14:28 162.56\\S\\64 Pulse Rate 2020-09-03 04:14:28 84 /min Respiratory Rate 2020-09-03 04:14:28 18 /min Temperature 2020-09-03 04:14:28 36.8\\S\\98.3 Weight 2020-09-03 04:14:28 22965.442\\S\\2848 Weight Measurement 2020-09-03 04:14:28 Estimated by Method Patient 02 Sat by Pulse 2020-09-03 03:33:08 98 /min Oximetry Body Mass Index 2020-09-03 03:33:08 30.6 Height 2020-09-03 03:33:08 162.56\\S\\64 Pulse Rate 2020-09-03 03:33:08 84 /min Respiratory Rate 2020-09-03 03:33:08 18 /min Temperature 2020-09-03 03:33:08 36.8\\S\\98.3 Weight 2020-09-03 03:33:08 59738.442\\S\\2848 Weight Measurement 2020-09-03 03:33:08 Estimated by Method Patient 02 Sat by Pulse 2020-09-03 03:23:58 98 /min Oximetry Body Mass Index 2020-09-03 03:23:58 30.6 Height 2020-09-03 03:23:58 162.56\\S\\64 Pulse Rate 2020-09-03 03:23:58 84 /min Respiratory Rate 2020-09-03 03:23:58 18 /min Temperature 2020-09-03 03:23:58 36.8\\S\\98.3 Weight 2020-09-03 03:23:58 73000.442\\S\\2848 Weight Measurement 2020-09-03 03:23:58 Estimated by Method Patient WEIGHT 2020-09-03 03:16:00 80.754302 kg HEIGHT 2020-09-03 03:16:00 162.56 cm Systolic blood 2020-05-05 09:04:00 141 mm[Hg] [place] [facility] pressure Diastolic blood 2020-05-05 09:04:00 71 mm[Hg] [place] [facility] pressure Heart rate 2020-05-05 09:04:00 109 /min [place] [facility] Body temperature 2020-05-05 09:04:00 36.94 Maria Fernanda [place] Respiratory rate 2020-05-05 09:04:00 16 /min [place] [facility] Oxygen saturation in 2020-05-05 00:27:00 96 /min [place] [facility] Arterial blood by Pulse oximetry Body height 2020-03-07 20:33:00 162.6 cm [place] [facility] Body weight 2020-03-07 20:33:00 81.194 kg [place] [facility] BMI 2020-03-07 20:33:00 30.73 kg/m2 [place] [facility] Body Temperature 2019-08-25 19:39:00 98.1 [degF] [facility] [place] [facility] Heart Rate 2019-08-25 19:39:00 93 /min [facility] Respiratory rate 2019-08-25 19:39:00 17 /min [facility] [place] BP Systolic 2019-08-25 19:39:00 127 mm[Hg] [facility] BP Diastolic 2019-08-25 19:39:00 79 mm[Hg] [facility] Heart Rate 2019-08-25 18:14:00 100 /min [facility] Respiratory rate 2019-08-25 18:14:00 20 /min [facility] [place] BP Systolic 2019-08-25 18:14:00 128 mm[Hg] [facility] BP Diastolic 2019-08-25 18:14:00 76 mm[Hg] [facility] BMI (Body Mass 2019-08-25 18:14:00 0.6 kg/m2 MIKKI [facility] Index) Anamika Weight 2019-08-25 17:19:00 3.50 [lb_av] [facility] Body Temperature 2019-08-25 03:06:00 98.7 [degF] [facility] [place] Heart Rate 2019-08-25 03:06:00 89 /min [facility] Respiratory rate 2019-08-25 03:06:00 18 /min [facility] BP Systolic 2019-08-25 03:06:00 127 mm[Hg] [facility] BP Diastolic 2019-08-25 03:06:00 89 mm[Hg] [facility] Heart Rate 2019-08-25 02:06:00 89 /min [facility] Respiratory rate 2019-08-25 02:06:00 18 /min [facility] BP Systolic 2019-08-25 02:06:00 127 mm[Hg] [facility] BP Diastolic 2019-08-25 02:06:00 89 mm[Hg] [facility] Body Temperature 2019-07-30 04:18:00 97.6 [degF] [facility] [place] [facility] Heart Rate 2019-07-30 04:18:00 99 /min [facility] Respiratory rate 2019-07-30 04:18:00 18 /min [facility] [place] BP Systolic 2019-07-30 04:18:00 128 mm[Hg] [facility] [place] BP Diastolic 2019-07-30 04:18:00 82 mm[Hg] [facility] [place] Heart Rate 2019-07-30 01:30:00 99 /min [facility] [place] Respiratory rate 2019-07-30 01:30:00 18 /min [facility] [place] BP Systolic 2019-07-30 01:30:00 128 mm[Hg] [facility] [place] BP Diastolic 2019-07-30 01:30:00 82 mm[Hg] [facility] [place] Weight 2019-07-29 21:08:00 205 [lb_av] [facility] [place] BMI (Body Mass 2019-07-29 21:08:00 35.2 kg/m2 [facility]) Price Procedures Procedure Date / Time Performing Clinician Source Performed CREATINE KINASE, TOTAL 2020-05-05 04:12:00 Gio Martin (CPK) Monse COMPREHENSIVE METABOLIC 2020-05-05 04:12:00 Gio Martin PANEL Monse T4, FREE 2020-05-05 04:12:00 Gio Martin Ga higinio Shea THYROID STIMULATING HORMONE 2020-05-05 04:12:00 Jose Martin ALCOHOL LEVEL, BLOOD 2020-05-05 04:12:00 Gio Martin on Radha Shea SALICYLATE LEVEL 2020-05-05 04:12:00 Gio Martin ethodist Shea VALPROIC ACID LEVEL 2020-05-05 04:12:00 Gio Martin LITHIUM LEVEL 2020-05-05 04:12:00 Gio Martin ESTIMATED GFR 2020-05-05 04:12:00 Gio Martin HC COMPLETE BLD COUNT 2020-05-05 03:57:00 Gio Martin Buddhist W/AUTO DIFF [place] TROPONIN 2020-05-05 03:52:00 Gio Martin Ga thodist Monse COVID-19 QUALITATIVE PCR 2020-05-05 03:34:00 Gio Martin Monse XR CHEST 2 VW 2020-05-05 00:50:09 Gio Martin Me nilesodist Monse ECG ED PRELIMINARY 2020-05-05 00:25:40 Gio Martin INTERPRETATION Monse ECG 12-LEAD 2020-05-05 00:22:57 Gio Martin Ga thodist Monse POC GLUCOSE 2020-03-07 22:29:00 Bill [...] COUNT 2020-01-23 00:55:00 de García, Christopher Thompson Buddhist W/AUTO DIFF Tru COMPREHENSIVE METABOLIC 2020-01-23 00:55:00 de Arjun Garcíaist PANEL Tru T4, FREE 2020-01-23 00:55:00 de Blaze García Buddhist Tru THYROID STIMULATING HORMONE 2020-01-23 00:55:00 de Mikki García Tru URINALYSIS SCREEN AND 2020-01-23 00:55:00 Blaze Brannon MICROSCOPY, WITH REFLEX TO Tru CULTURE ALCOHOL LEVEL, BLOOD 2020-01-23 00:55:00 de Ricky, Blaze Garcia Tru URINE DRUGS OF ABUSE SCREEN 2020-01-23 00:55:00 Mikki Brannon Tru SALICYLATE LEVEL 2020-01-23 00:55:00 Blaze Brannon on Buddhist Tru ESTIMATED GFR 2020-01-23 00:55:00 Blaze Brannon Buddhist Tru URINE CULTURE 2020-01-23 00:55:00 de Blaze García Buddhist Tru ECG 12-LEAD 2020-01-23 00:52:01 Blaze Brannon Buddhist Tru POC GLUCOSE 2020-01-16 05:04:00 Abdi Monk Meth odist ECG ED PRELIMINARY 2020-01-16 03:15:21 Abdi Monk M ethodist INTERPRETATION HC COMPLETE BLD COUNT 2020-01-16 03:01:00 Abdi Monk W/AUTO DIFF COMPREHENSIVE METABOLIC 2020-01-16 03:01:00 Abdi Monk Buddhist PANEL CREATINE KINASE, TOTAL 2020-01-16 03:01:00 Abdi Monk on Buddhist (CPK) THYROID STIMULATING HORMONE 2020-01-16 03:01:00 Abdi Monk T4, FREE 2020-01-16 03:01:00 Abdi Monk Meth odist ALCOHOL LEVEL, BLOOD 2020-01-16 03:01:00 Abdi Monkist SALICYLATE LEVEL 2020-01-16 03:01:00 Abdi Monk Met hodist URINE DRUGS OF ABUSE SCREEN 2020-01-16 03:01:00 Chucky Monkmorris Garcia URINALYSIS SCREEN AND 2020-01-16 03:01:00 Lacho Abdi Garcia MICROSCOPY, WITH REFLEX TO CULTURE ESTIMATED GFR 2020-01-16 03:01:00 Abdi Monk Jay Gris odist URINE CULTURE 2020-01-16 03:01:00 Chucky Monkmorris Thompson Gris odclaudia ECG 12-LEAD 2020-01-16 02:40:29 MatthewChucky goodmanmorris Thompson Gris odclaudia POC GLUCOSE 2020-01-15 03:44:00 Bill Ferraro Jay Nunes ethodist XR CHEST 1 VW PORTABLE 2020-01-15 02:05:39 Bill Ferraro HC COMPLETE BLD COUNT 2020-01-15 01:51:00 Bill Ferraro Buddhist W/AUTO DIFF COMPREHENSIVE METABOLIC 2020-01-15 01:51:00 Bill Ferraro Buddhist PANEL TROPONIN 2020-01-15 01:51:00 Bill Ferraro Jay Nunes ethodist ESTIMATED GFR 2020-01-15 01:51:00 Bill Ferraro Jay Nunes ethodist ECG 12-LEAD 2020-01-15 01:48:22 Bill Ferraro [...] Calero SALICYLATE LEVEL 2020-01-01 02:00:00 Jay Calero VENOUS BLOOD GAS 2020-01-01 02:00:00 Jay Calero Met belen Correa ESTIMATED GFR 2020-01-01 02:00:00 Jay Calero Meth maye Correa COVID-19 QUALITATIVE PCR 2020-01-01 02:00:00 Luisa [...] Calero ECG 12-LEAD 2019-10-10 03:12:58 Benitez Heck Buddhist Go POC GLUCOSE 2019-10-10 03:10:00 Benitez Heck Go ECG ED PRELIMINARY 2019-10-10 00:44:40 Benitez Heck Buddhist INTERPRETATION Go COVID-19 QUALITATIVE PCR 2019-10-10 00:39:00 Tyra Heck Go ALCOHOL LEVEL, BLOOD 2019-10-10 00:03:00 Benitez Heck Buddhist Go URINE DRUGS OF ABUSE SCREEN 2019-10-10 00:03:00 So Heck Buddhist Go SALICYLATE LEVEL 2019-10-10 00:03:00 Benitez Heck Go LITHIUM LEVEL 2019-10-10 00:03:00 Benitez Heck Go ESTIMATED GFR 2019-10-10 00:03:00 Benitez Heck Go URINE CULTURE 2019-10-10 00:03:00 Benitez Heck Go TROPONIN 2019-10-10 00:03:00 Benitez Heck Buddhist Go HC COMPLETE BLD COUNT 2019-10-10 00:03:00 Benitez Heck Buddhist W/AUTO DIFF Go COMPREHENSIVE METABOLIC 2019-10-10 00:03:00 Benitez Heck Buddhist PANEL Go T4, FREE 2019-10-10 00:03:00 Benitez Heck Buddhist Go THYROID STIMULATING HORMONE 2019-10-10 00:03:00 So Heck Buddhist Go CREATINE KINASE, TOTAL 2019-10-10 00:03:00 Benitez Heck (CPK) Go URINALYSIS SCREEN AND 2019-10-10 00:03:00 Benitez Heck Buddhist MICROSCOPY, WITH REFLEX TO Go CULTURE ECG (electrocardiogram) 2019-08-25 00:00:00 [facility] ECG (electrocardiogram) 2019-07-29 00:00:00 [facility] [place] [facility] ROUTINE VENIPUNCTURE 2019-07-29 00:00:00 [facility] [place] COMPREHEN METABOLIC PANEL 2019-07-29 00:00:00 [facility] DRUG TEST PRSMV CHEM ANLYZR 2019-07-29 00:00:00 [facility] DRUG SCREEN QUANTALCOHOLS 2019-07-29 00:00:00 [facility] [place] [facility] ANALGESICS NON-OPIOID 1 OR 2019-07-29 00:00:[address] 2 Anamika URINALYSIS AUTO W/O SCOPE 2019-07-29 00:00:00 [facility] ASSAY OF CK (CPK) 2019-07-29 00:00:00 [facility] [place] ASSAY OF FREE THYROXINE 2019-07-29 00:00:00 [facility] ASSAY THYROID STIM HORMONE 2019-07-29 00:00:00 [facility] ASSAY TRIIODOTHYRONINE (T3) 2019-07-29 00:00:00 [facility] COMPLETE CBC W/AUTO DIFF 2019-07-29 00:00:[address] WBC [place]ika SYPHILIS TEST NON-TREP QUAL 2019-07-29 00:00:00 [facility] ELECTROCARDIOGRAM TRACING 2019-07-29 00:00:00 [facility] HYDRATION IV INFUSION INIT 2019-07-29 00:00:00 [facility] EMERGENCY DEPT VISIT 2019-07-29 00:00:00 [facility] [place] Ringers lactate infusion 2019-07-29 00:00:00 [facility] Plan of Care Planned Activity Planned Date Details Comments Source Future Scheduled Test 2020-11-07 [facility] [code = INFLUENZA VACCINE] Future Scheduled Test 2019-12-09 INFLUENZA VACCINE (#1) [facility] - 00:[facility]:00 [code = INFLUENZA Medical Ce nter VACCINE (#1)] Future Scheduled Test 2017-10-28 Hemoglobin A1c [facility] - 00:00:00 measurement [facility] (procedure) [code = 00869714] Future Scheduled Test 2010-10-04 Lipid panel [facility] - 00:00:00 (procedure) [code = Medical Center [id number]] Future Scheduled Test 1993-10-04 Hepatitis C screening [place] [facility] 00:00:00 (procedure) [code = 660459570] Future Scheduled Test 1987 COVID-19 VACCINE (1) [place] [facility] 00:00:00 [code = COVID-19 VACCINE (1)] Future Scheduled Test 1985-10-04 DIABETIC EYE EXAM [facility] - 00:00:00 [code = DIABETIC EYE [facility] EXAM] Future Scheduled Test 1985-10-04 Urine screening for [facility] - 00:00:00 protein (procedure) [facility] [code = 496392903] Future Scheduled Test 1985-10-04 DIABETES: RETINAL EYE [place] [facility] 00:00:00 EXAM [code = DIABETES: RETINAL EYE EXAM] Future Scheduled Test 1985-10-04 DIABETIC FOOT EXAM [place] [facility] 00:00:00 [code = DIABETIC FOOT EXAM] Future Scheduled Test 1985-10-04 URINE MICROALBUMIN [place] [facility] 00:00:00 [code = URINE MICROALBUMIN] Future Scheduled Test 1981-10-04 PNEUMOCOCCAL VACCINE JEAN PIERRE [facility] - 00:00:00 0-64 YRS (1 of 1 - Medical C enter PPSV23) [code = PNEUMOCOCCAL VACCINE 0-64 YRS (1 of 1 - PPSV23)] Goal Patient referral [code [facility] = [id number] ] Anamika Goal Patient referral [code [facility] = [id number] ] Anamika Goal Patient referral [code [facility] = [id number] ] Anamika Goal Patient referral [code [facility] = [id number] ] Anamika Goal Patient referral [code [facility] = [id number] ] Anamika Goal Patient referral [code [facility] = [id number] ] Anamika Goal Patient referral [code [facility] = [id number] ] Anamika Instructions Depression, Adult (DC) [facility] [place] Instructions Hyperglycemia, Adult [facility] (DC) [place]ika Instructions Rhabdomyolysis (DC) [facility] Instructions General (DC) [facility] Instructions OTHER [facility] Instructions Hyperglycemia, Adult [facility] (DC) [place]ika Instructions Suicide Prevention [facility] Encounters Start End Encounter Admission Attending Care Care Encounter Source Date/Time Date/Time Type Type Clinicians Facility Department ID 2020-09-02 2020-09-02 Emergency [facility] [id number] 19:34:00 21:33:00 Elenita Singletary [id number] [place] [id number] [place] [id number] 2020-09-01 2020-09-01 Orders Doctor KENDALL [id number] 00:00:00 00:00:00 Only UnassSONIA lopez [id number] [place] [facility] [id number] 2020-08-30 2020-08-30 Emergency Jame Magallanes [place] [id number] 02:15:00 10:29:00 Qi Butt [id number] 2020-08-27 2020-08-27 Emergency [place], TRAUMA [id number] 00:10:00 14:13:00 [facility] [id number] 2020-08-24 2020-08-24 Emergency Britt Roe E TRAUMA [id number] 01:07:00 12:45:00 Christ López SAYNER [id number] 2020-08-19 2020-08-19 Emergency [facility] 1.2.596.252 [id number] 21:21:00 23:55:00 [facility] 350.1.13.10 Clear 4.2.7.2.686 [place] [id number] Hospital 014 (CLC) 2020-08-08 2020-08-08 Letter KENDALL Molina 1.2.840.114 [id number] 00:00:00 00:00:00 (Out) Lauren SCOTT 350.1.13.10 [facility] 4.2.7.2.686 [id number] 019 2020-08-07 2020-08-07 Laboratory Nurse, Max [facility] 1.2.840.114 [id number] 09:14:16 09:29:16 Only [place] 350.1.13.10 [facility] 4.2.7.2.686 [place] [id number] [facility] 2020-08-05 2020-08-05 Emergency Christ López TRAUMA 1.2.840.11 4 [id number] 03:13:00 12:47:00 Qi Butt SAYNER 350.1.13.10 4.2.7.2.686 [id number] 014 2020-07-29 2020-07-29 Telephone KENDALL Rangel 1.2.840.114 [id number] 00:00:00 00:00:00 Bhavna SCOTT 350.1.13.10 [facility] 4.2.7.2.686 [id number] 019 2020-07-26 2020-07-27 Emergency Jyothi, Britt E TRAUMA 1.2.840 .114 [id number] 22:16:00 19:28:00 Monse Arce SAYNER 350.1.13.10 4.2.7.2.686 [id number] 014 2020-07-25 2020-07-25 Emergency Ibikunle, TRAUMA 1.2.840.114 [id number] 21:57:00 22:57:00 Geo Lopez SAYNER 350.1.13.10 4.2.7.2.686 [id number] 014 2020-07-25 2020-07-25 Emergency Gerson, TRAUMA 1.2.912.972 [id number] 05:12:00 06:32:00 [facility] 350.1.13.10 4.2.7.2.686 [id number] 014 2020-07-23 2020-07-24 Emergency Jame Magallanes [place] 1.2.840. 114 [id number] 20:12:00 [facility]13[facility]10 4.2.7.2.686 [id number] 014 2020-07-15 2020-07-16 Emergency Nancy, TRAU[place] 1.2.335.000 [id number] 20:44:00 02:31:00 [facility] 350.1.13.10 Terry 4.2.7.2.686 [id number] 014 2020-07-12 2020-07-13 Emergency Watson, [facility] 1.2.931.657 [id number] [id number] 22:01:00 05:51:00 [facility] 350.1.13.10 Clear 4.2.7.2.686 [place] [id number] [facility] 014 ([facility]) 2020-07-12 2020-07-12 Emergency Patel, [facility] 1.2.148.171 [id number] [id number] 18:04:00 20:02:00 [facility] 350.1.13.10 Clear 4.2.7.2.686 [place] [id number] [facility] 014 ([facility]) 2020-07-06 2020-07-06 Emergency Na, [facility] 1.2.840.114 [id number] 00:50:00 09:57:00 Jamal Singletary 350.1.13.10 [place] 4.2.7.2.686 [place] [id number] 084 2020-07-06 2020-07-06 Telephone KENDALL Botello 1.2.840.114 [id number] 00:00:00 00:00:00 Alvarez SCOTT 350.1.13.10 [facility] 4.2.7.2.686 [id number] 019 2020-07-04 2020-07-04 Emergency Kendall Watson [facility] 1.2.840.114 [id number] 15:38:00 21:23:00 Villanueva, [facility] 350.1.13.10 Clear 4.2.7.2.686 [place] [id number] [place] [address] ([facility]) 2020-07-04 2020-07-04 Emergency [facility] 1.2.501.410 [id number] 06:58:00 08:30:00 [facility] 350.1.13.10 Clear 4.2.7.2.686 [place] [id number] [place] [address] ([facility]) 2020-07-03 2020-07-03 [facility] 1.2.361.298 [id number] 1946 22:33:00 23:45:00 [facility] 350.1.13.10 Magnus Gautam 4.2.7.2.686 [facility] [phone] [address] ([facility]) 2020-06-24 2020-06-24 Emergency Yolette Jimenez [place] 1.2.8 40.114 [id number] 03:02:00 16:17:00 Christ López CENTER 350.1.13.10 4.2.7.2.686 [id number] 014 2020-05-29 2020-05-30 Emergency Monse Arce TRAUMA 1.2.84 0.114 [id number] 16:49:00 01:10:00 Yolette Jimenez CENTER 350.1.13.10 4.2.7.2.686 [id number] 014 2020-05-21 2020-05-21 Emergency Nancy, [facility] 1.2.818.933 [id number] 22:02:00 23:04:00 [facility] 350.1.13.10 Terry Gautam 4.2.7.2.686 [facility] [id number] [address] ([facility]) 2020-05-05 2020-05-05 Emergency VERONICA [facility] [id number] [place] [address] 00:00:00 00:00:00 GIO Carlos rodriguez 2020-04-26 2020-04-26 Emergency Walter, [facility] 1.2.011.625 [id number] 18:25:00 21:35:00 [facility] 350.1.13.10 Clear 4.2.7.2.686 [place] [id number] [address]) 2020-04-23 2020-04-24 Emergency Jyothi, [facility] 1.2.529.591 [id number] 19:50:00 00:21:00 Britt Singletary 350.1.13.10 [place] 4.2.7.2.686 [place] [id number] 084 2020-04-22 2020-04-23 Emergency [facility] 1.2.766.961 [id number] 20:02:00 06:19:00 Gopi Singletary 350.1.13.10 [place] 4.2.7.2.686 [place] [id number] 084 2020-04-21 2020-04-22 Emergency [facility] 1.2.854.666 [id number] 19:22:00 06:41:00 Gopi Singletary 350.1.13.10 [place] 4.2.7.2.686 [place] [id number] 084 2020-04-20 2020-04-21 Emergency Missy Rawls [facility] 1.2.840.1 14 [id number] 23:35:00 08:33:00 Gopi Palomino 350.1.13.10 Missy Rawls 4.2.7.2.686 [place] [id number] 084 2020-03-31 2020-03-31 Emergency Vimal [facility] 1.2.580.331 [id number] 02:51:00 05:37:00 [facility] 350.1.13.10 Clear 4.2.7.2.686 [place] [id number] Hospital 014 ([facility]) 2020-03-17 2020-03-18 Emergency Walter, [facility] 1.2.173.001 [id number] 22:59:00 03:46:00 [facility] 350.1.13.10 Clear 4.2.7.2.686 [place] [id number] Hospital 014 ([facility]) 2020-03-07 2020-03-07 Emergency RUBIN, [facility] 064 [id number] [address]36 [place] 00:00:00 00:00:00 BILL Silvia[address] [facility] [address] 2020-03-01 2020-03-01 Emergency Patel, [facility] 1.2.482.345 [id number] 03:49:00 05:46:00 [facility] 350.1.13.10 Clear 4.2.7.2.686 [place] [id number] Hospital 014 ([facility]) 2020-02-28 2020-02-29 Emergency Jame Ram [facility] 1.2.8 40.114 [id number] 20:26:00 01:25:00 EdyJame sam [facility] 350.1.13.10 Clear 4.2.7.2.686 [place] [id number] Hospital 014 ([facility]) 2020-02-21 2020-02-22 Emergency Vimal, [facility] 1.2.734.113 [id number] 19:15:00 02:01:00 [facility] 350.1.13.10 Clear 4.2.7.2.686 [place] [id number] Hospital 014 ([facility]) 2020-02-20 2020-02-21 Emergency Unknown, Attending [facility] 1.2.8 40.114 [id number] 21:59:00 04:04:00 [facility] 350.1.13.10 Clear 4.2.7.2.686 [place] [id number] Hospital 014 ([facility]) 2020-02-11 2020-02-12 Emergency Jame Ram [facility] 1.2.8 40.114 [id number] 20:17:00 14:37:00 Kendall Watson 350.1.13.10 Clear 4.2.7.2.686 [place] [id number] Hospital 014 ([facility]) 2020-01-29 2020-01-30 Emergency Sam Celis [facility] 1.2.8 40.114 [id number] 23:20:00 09:15:00 Kendall Watson 350.1.13.10 Clear 4.2.7.2.686 [place] [id number] Hospital 014 ([facility]) 2020-01-24 2020-01-24 Emergency Sam Celis [facility] 1.2.8 40.114 [id number] 01:58:00 10:51:00 Pan Mendoza [facility] 350.1.13.10 Clear 4.2.7.2.686 [place] [id number] Hospital 014 ([facility]) 2020-01-23 2020-01-23 Emergency DE GARCÍA, [place] [address] [id number] 9412 [place] 00:00:00 00:00:00 BLAZE 090 Me nilesodi 2020-01-16 2020-01-16 Emergency SVACH, [place] [address] [id number] 66 [place] 00:00:00 00:00:00 ABDI 406 Method i 2020-01-15 2020-01-15 Emergency MARCANTEL, [place] [address] [id number] 56710 [place] 00:00:00 00:00:00 BILL 619 Method i 2020-01-07 2020-01-07 Emergency Kendall Watson [facility] 1.2.840.114 [id number] 02:41:00 18:55:00 Lillie Baker [facility] 350.1.13.10 Clear 4.2.7.2.686 [place] [id number] Hospital 014 ([facility]) 2020-01-01 2020-01-01 Emergency VANDER [place] [address] [id number] 63 [place] 00:00:00 00:00:00 ROB, 644 Method i RIAZ 2019-12-27 2019-12-27 Emergency Mutendereki [facility] 1.2.840.114 [id number] 12:39:00 13:15:00 , [facility] 350.1.13.10 Clear 4.2.7.2.686 [place] [id number] Hospital 014 ([facility]) 2019-12-04 2019-12-05 Emergency Shoaib, [facility] 1.2.889.386 [id number] 19:40:00 03:27:00 [facility] 350.1.13.10 Clear 4.2.7.2.686 [place] [id number] Hospital 014 ([facility]) 2019-12-02 2019-12-02 Emergency Walter, [facility] 1.2.984.346 [id number] [id number] 17:51:00 20:28:00 [facility] 350.1.13.10 Clear 4.2.7.2.686 [place] [id number] Hospital 014 ([facility]) 2019-10-31 2019-11-01 Emergency Watson, [facility] 1.2.274.046 [id number] [id number] 20:18:14 02:15:00 [facility] 350.1.13.10 Clear 4.2.7.2.686 [place] [id number] Hospital 014 ([facility]) 2019-10-17 2019-10-17 Emergency UT 1.2.569.551 [id number] 14:54:43 14:57:00 Health 350.1.13.10 Clear 4.2.7.2.686 [place] [id number] Hospital 014 ([facility]) 2019-10-09 2019-10-10 Emergency [facility] [id number] [place] [address] 00:00:00 00:00:[address] [place] [address] 2019-10-09 2019-10-09 Emergency Shoaib, [facility] 1.2.195.814 [id number] 04:11:17 07:13:00 [facility] 350.1.13.10 Clear 4.2.7.2.686 [place] [id number] Hospital 014 ([facility]) 2019-08-25 2019-08-25 Departed ROD HEWITT [id number] [place] 17:25:00 19:40:[address] Room [facility] 2019-08-25 2019-08-25 Departed ROD HEWITT [id number] [place] 01:55:00 03:06:[address] Room [facility] e 2019-07-29 2019-07-30 Departed ROD HEWITT [id number] [place] 20:41:00 04:20:[address] Room Anamika armas 2019-07-24 2019-07-25 Emergency Morrical, TRAU[place] 1.2.840.114 [id number] 17:52:29 00:33:00 Edmundo O CENTER 350.1.13.10 4.2.7.2.686 [id number] 014 2019-07-23 2019-07-24 Emergency Banipal [place] 1.2.742.102 [id number] 23:51:49 03:50:00 Morrical, CENTER 350.1.13.10 [place] 4.2.7.2.686 [id number] 014 2019-07-18 2019-07-19 Emergency Nino, [place] 1.2.840.114 [id number] 22:53:16 02:38:00 Laura Mosquera CENTER 350.1.13.10 4.2.7.2.686 [id number] 014 2019-07-10 2019-07-11 Emergency Vincent, Shinta [place] 1.2.840. 114 [id number] 17:30:12 07:56:00 AuSloane chapman CENTER 350.1. 13.10 4.2.7.2.686 [id number] 014 2019-07-10 2019-07-10 Emergency Gerson, [place] 1.2.984.148 [id number] 1974 06:04:43 06:48:00 Estefani CENTER 350.1.13.10 4.2.7.2.686 [id number] 014 2019-06-21 2019-06-21 Emergency Laura Nino [place] 1.2 .840.114 [id number] 02:54:23 11:00:00 Eleazar Potts CENTER 350.1.13.10 4.2.7.2.686 [id number] 014 2019-06-15 2019-06-16 Emergency REICHL, [facility] [id number] [place] [address] 00:00:00 00:00:00 SIMA Katie [facility] 2019-05-31 2019-05-31 Emergency DE GARCÍA, [facility] 064 [id number] 2778 [place] 00:00:00 00:00:00 BLAZE cageodi 2019-05-29 2019-05-30 Emergency ALAN, [facility] 064 [id number] 70412 [place] 00:00:00 00:00:00 JUANI 957 Method i 2019-05-25 2019-05-25 Emergency Willy Askew [facility] 1.2.84 0.114 [id number] 01:16:44 12:13:00 Anderson Seth [facility] 350.1.13.10 Clear 4.2.7.2.686 [place] [id number] Hospital 014 ([facility]) 2019-05-11 2019-05-11 Emergency Olivia, [facility] 1.2.840.114 [id number] 17:44:49 23:20:00 [facility] 350.1.13.10 Clear 4.2.7.2.686 [place] [id number] Hospital 014 ([facility]) 2019-01-03 2019-01-03 Emergency [facility] [id number] [place] 21:49:56 21:49:56 Health 2018-11-01 2018-11-[address] [facility] 1.2.840.114 [id number] 14:56:39 23:59:00 Encounter Dorita CALLOWAYLance 350.1.13.10 MEDICAL 4.2.7.2.686 [place] [id number] 2017-10-28 2017-10-28 Emergency [facility] [id number] [place] 08:41:18 08:41:18 Health 2017-10-20 2017-10-20 Emergency [facility] [id number] [place] 08:09:00 08:09:00 Health 2017-10-10 2017-10-10 Emergency [facility] [id number] [place] 01:05:00 01:05:00 Health 2017-09-27 2017-09-27 Emergency [facility] [id number] [place] 21:47:00 21:47:00 Health 2017-09-26 2017-09-26 Emergency [facility] [id number] [place] 22:17:00 22:17:00 Health 2017-09-24 2017-09-24 Outpatient [facility] [id number] [facility] 10:46:12 10:46:12 2017-09-21 2017-09-21 Emergency [facility] [id number] [place] 23:01:00 23:01:00 [facility] 2017-09-20 2017-09-20 Emergency [facility] [id number] [place] 21:20:00 21:20:00 [facility] 2017-09-18 2017-09-18 Emergency [facility] [id number] [place] 03:14:00 03:14:00 [facility] 2017-09-13 2017-09-13 Outpatient [facility] [id number] [facility] 09:45:02 09:45:02 2017-09-13 2017-09-13 Emergency [facility] [id number] [place] 00:01:00 00:01:00 [facility] 2017-09-09 2017-09-09 Emergency [facility] [id number] [place] 22:15:00 22:15:00 [facility] 2017-08-22 2017-08-22 [facility] [id number] [place] 00:00:00 00:00:00 [facility] 2017-08-20 2017-08-20 Emergency [facility] [id number] [place] 08:25:08 08:25:08 [facility] 2017-08-18 2017-08-18 Emergency [facility] [id number] [place] 00:11:00 00:11:00 [facility] 2017-08-16 2017-08-16 Emergency [facility] [id number] [place] 19:30:00 19:30:00 [facility] 2017-07-17 2017-07-17 Emergency E [facility]AMIE [facility] [id number] 20:09:00 20:09:00 [facility] 2017-06-29 2017-06-29 Emergency [facility] [id number] [place] 00:07:13 00:07:13 [facility] 2017-06-05 2017-06-05 Outpatient [facility] [id number] [place] 00:00:00 00:00:00 [facility] 2017-06-01 2017-06-01 Emergency [facility] [id number] [place] 15:16:18 15:16:18 [facility] 2017-05-18 2017-05-18 Outpatient [facility] [id number] [place] 00:00:00 00:00:00 [facility] 2017-05-07 2017-05-07 Emergency [facility] [id number] [place] 22:29:15 22:29:15 [facility] 2017-04-14 2017-04-14 Emergency E [facility]AMIE [facility] [id number] 15:50:00 15:50:00 [facility] 2017-03-26 2017-03-26 Emergency E KAMLESH, [facility] [id number] St[address] 13:48:00 13:48:00 [facility] 2017-03-25 2017-03-25 Emergency E SUSI, [facility] [id number] 00:06:00 00:06:00 JUANI [facility] 2017-03-20 2017-03-20 Emergency E ERIC, [facility] [id number] [address] 12:17:00 12:17:00 [facility] 2017-03-01 2017-03-01 Emergency E JALISBET [facility] [id number] 19:18:00 19:18:00 [facility] 2017-02-28 2017-02-28 Emergency E RAMANA SOARES [facility] [id number] 21:18:00 21:18:00 [facility] 2017-02-27 2017-02-27 Emergency E CYRUSBRITTNEY [facility] [id number] 22:19:00 22:19:00 [place] [facility] 2017-02-23 2017-02-23 Emergency [facility] [id number] [place] 18:07:28 18:07:28 [facility] 2017-02-22 2017-02-22 Emergency E JA LISBET [facility] [id number] 08:45:00 08:45:00 [facility] 2017-02-15 2017-02-15 Emergency C JAMIE, [facility] [id number] 19:57:00 19:57:00 [facility] 2017-01-22 2017-01-22 Emergency [facility] [id number] [place] 06:44:35 06:44:35 Health 2017-01-18 2017-01-18 Emergency [facility] [id number] [place] 02:07:00 02:07:00 [facility] 2016-08-24 2016-08-24 Emergency [facility] [id number] [place] 13:58:00 13:58:00 Health Results Test Description Test Time Test Comments Results Result Comments Source GLUBED 2020-09-04 15:30:00 Test Item Value Reference Range Interpretation Comme nts GLUBED (test code = GLUBED) 160 mg/dL 74-106 H Performed by certified 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 [facility] [id number] 11:24:00 Test Item Value Reference Range Interpretation Comments GLUBED (test code = 182 mg/dL 74-106 H Performe d by certified GLUBED) 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 [facility] [id number] 06:30:00 Test Item Value Reference Range Interpretation Comments GLUBED (test code 325 mg/dL 74-106 H Performed by certified = GLUBED) 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~ COVID 19 INHOUSE [id number] 22:11:00 Test Item Value Reference Range Interpretation Comments COVID 19 INHOUSE AG (test code = NEGATIVE NEGATIVE [id number]) BASIC METABOLIC [id number] 21:07:00 Test Item Value Reference Range Interpretation [...] Modifi ed MDRD (test code = GFR) formula. ronic kidney disease is defined as eith er kidney damageor GFR <60 mL/min/1.73 m2 for >3 months. [Automated mess age] The system [employer] generated this result transmitted ref erence range: >=60. Th e reference range was not used to int erpret this result as normal/abnormal . CREATININE (test 0.80 mg/dL 0.7-1.3 N code = CREAT) BUN/CREATININE RATIO 11.5 10-20 N (test code = BUN/CREA) CALCIUM (test code = 9.6 mg/dL 8.5-10.1 N CA) HEPATIC FUNCTION [id number] 21:07:00 Test Item Value Reference Range Interpretation [...] range due ALKP) to change in reagent. [id number] 21:07:00 Test Item Value Reference Range Interpretation [...] T ANADDITIONAL CH ARGE TO THE PATIENT. [id number] 21:07:00 Test Item Value Reference Range Interpretation Comments ACETAMINOPHEN (test code = ACET) < 0.2 mg/dL 1.0-3.0 L [id number] 21:07:00 Test Item Value Reference Range Interpretation Comments SALICYLATE (test code = DAVE) < 3.0 mg/dL 2.8-20.0 N CBC W/O [id number] 20:34:00 Test Item Value Reference Range Interpretation [...] 9.7 fL 6.7-11.0 N = MPV) URINALYSIS [id number] 20:11:00 Test Item Value Reference Range Interpretation [...] Urine Source? Clean CatchDRUGS OF ABUSE SCREEN [id number] 20:11:00 Test Item Value Reference Range Interpretation Comments URN COCAINE (test code = NEGATIVE See_Comment [A utomated message] COCAURN) The system [employer] generated this result transmitted ref erence range: [...] See_Comment [A utomated message] OPIATURN) The system [employer] generated this result transmitted ref erence range: [...] [A utomated message] = METHAURN) The system [employer] generated this result transmitted ref erence range: <300 ng/ mL. The reference r blaise was not used to interpret this result as normal/abnor mal. Urine Source? Clean CatchURINALYSIS [id number] 19:43:00 Test Item Value Reference Range Interpretation [...] Urine Source? Clean CatchDRUGS OF ABUSE SCREEN [id number] 19:43:00 Test Item Value Reference Range Interpretation Comments URN COCAINE (test code = See_Comment [A utomated message] COCAURN) The system [employer] generated this result transmitted ref erence range: [...] See_Comment [Automated message] = AMPHETURN) The system [employer] generated this result transmitted ref erence range: <1000 ng /mL. The reference r blaise was not used to interpret this result as normal/abnor mal. URN BARBITURATE (test code See_Comment [Automated message] = BARBITURN) The system [employer] generated this result transmitted ref erence range: [...] See_Comment [A utomated message] OPIATURN) The system [employer] generated this result transmitted ref erence range: [...] = See_Comment [Automated message] METHAURN) The system [employer] generated this result transmitted ref erence range: <300 ng/ mL. The reference range was not used to int erpret this result as normal/abnormal . Urine Source? Clean CatchDRUGS OF ABUSE SCREEN [id number] 19:42:00 Test Item Value Reference Range Interpretation Comments URN COCAINE (test code = See_Comment [A utomated message] COCAURN) The system [employer] generated this result transmitted ref erence range: [...] See_Comment [Automated message] = AMPHETURN) The system [employer] generated this result transmitted ref erence range: <1000 ng /mL. The reference r blaise was not used to interpret this result as normal/abnor mal. URN BARBITURATE (test code See_Comment [Automated message] = BARBITURN) The system [employer] generated this result transmitted ref erence range: [...] See_Comment [A utomated message] OPIATURN) The system [employer] generated this result transmitted ref erence range: [...] = See_Comment [Automated message] METHAURN) The system [employer] generated this result transmitted ref erence range: <300 ng/ mL. The reference range was not used to int erpret this result as normal/abnormal . Urine Source? Clean CatchURINALYSIS [id number] 19:42:00 Test Item Value Reference Range Interpretation [...] per HPF NONE BACU) Urine Source? Clean [id number] 09:10:00 Test Item Value Reference Range Interpretation Comments HGBA1C% (test code = HGBA1C%) 12.6 %A1C 4.8-6.0 H ESTIMATED AVERAGE GLUCOSE (test 315 MG/DL code = EAG) BASIC METABOLIC [id number] 08:58:00 Test Item Value Reference Range Interpretation [...] code = CA) 8.9 mg/dl 8.0-10.5 N [id number] 07:11:00 Test Item Value Reference Range Interpretation Comments GLUBED (test code = GLUBED) 361 mg/dL 70-110 H UR OSMOLALITY [id number] 04:54:00 Test Item Value Reference Range Interpretation Comments UR OSMOLALITY RANDOM (test code = 703 MOS/KG 300-1000 N OSMOU) OSMOLALITY [id number] 13:20:00 Test Item Value Reference Range Interpretation Comments OSMOLALITY SERUM (test code = 293 MOS/KG 275-295 N OSMO) [id number] 11:52:00 Test Item Value Reference Range Interpretation Comments GLUBED (test code = GLUBED) 359 mg/dL 70-110 H [id number] 08:39:00 Test Item Value Reference Range Interpretation Comments GLUBED (test code = GLUBED) 377 mg/dL 70-110 H [id number] 19:47:00 Test Item Value Reference Range Interpretation Comments GLUBED (test code = GLUBED) 305 mg/dL 70-110 H [id number] 17:19:00 Test Item Value Reference Range Interpretation Comments SODIUM (test code = NA) 128 mmol/l 134.0-147.0 L [id number] 17:06:00 Test Item Value Reference Range Interpretation Comments GLUBED (test code = GLUBED) 409 mg/dL 70-110 H [id number] 14:08:00 Test Item Value Reference Range Interpretation Comments GLUBED (test code = GLUBED) 339 mg/dL 70-110 H VALPROIC ACID (DEPAKENE)2020-05-19 13:26:00 Test Item Value Reference Range Interpretation Comments VALPROIC ACID <3.0 mcg/dL 50-100 L The physicia n must (DEPAKENE) (test determine t he code = VALP) appropriate therapeutic range for each patient. COVID 19 Asymptomatic IH [id number] 11:40:00 Test Item Value Reference Range Interpretation Comments COVID 19 NEGATIVE NEGATIVE Negative result s should be Asymptomatic IH AG treated a s presumptive and (test code = ifinconsistent with COVNONPUIAG) clinical signs and symptoms, or ne cessaryfor patient managem ent, should be tested with an alternativemole cular assay. Negative results do not preclude [id number] tion and should not be u sed as the sole basis forp atient management deci sions. Negative result s should beconsidered in the context of a pa tient's recent exposure s,history, presence of cli nical signs and symptoms consistentwith COVID-19. [id number] 11:36:00 Test Item Value Reference Range Interpretation Comments SODIUM (test code = NA) 128 mmol/l 134.0-147.0 L [id number] 03:48:00 Test Item Value Reference Range Interpretation Comments GLUBED (test code = GLUBED) 159 mg/dL 70-110 H [id number] 02:43:00 Test Item Value Reference Range Interpretation Comments GLUBED (test code = GLUBED) 326 mg/dL 70-110 H BASIC METABOLIC [id number] 01:21:00 Test Item Value Reference Range Interpretation [...] N Specimen comments: Clean CatchHEPATIC FUNCTION PANEL [id number] 01:21:00 Test Item Value Reference Range Interpretation [...] Units/L 35-232 N CK) Specimen comments: Clean [id number] 01:21:00 Test Item Value Reference Range Interpretation Comments ACETAMINOPHEN (test <2.0 mcg/ml 10.0-30.0 L Result i s in code = ACET) Microgram per milliliter. Specimen comments: Clean [id number] 01:21:00 Test Item Value Reference Range Interpretation Comments SALICYLATE (test code = DAVE) 4.0 mg/dl 2.8-20.0 N Specimen comments: Clean [id number] 01:21:00 Test Item Value Reference Range Interpretation Comments ALCOHOL (test code 0.00 gm/dL 0.00-0.00 N ETHYL ALC OHOL VALUES - = ALC) INTERPRETATION: 0.050 GM/DL - NOT INT OXICATED 0.100 GM/DL - INTOXICATED 0.3 50-0.450 GM/DL - SEVEREL Y INTOXICATED 0.5 50 GM/DL- FATAL INTOXICAT ION Specimen comments: Clean CatchDRUGS OF ABUSE SCREEN [id number] 01:21:00 Test Item Value Reference Range Interpretation [...] code = [place]) Specimen comments: Clean CatchURINALYSIS [id number] 01:18:00 Test Item Value Reference Range Interpretation [...] FEW NONE BACU) Specimen comments: Clean CatchPROTHROMBIN [id number] 01:07:00 Test Item Value Reference Range Interpretation Comments PROTHROMBIN TIME 11.0 SECONDS 9.9-12.8 N PATIENT (test code = PTP) INTERNATIONAL NORMAL 0.9 0.89-1.14 N THE INR IS TO BE USED RATIO (test code = ONLY FOR MONITORING INR) ORAL ANTICOAGULANTTH ERAPY. THE FOLLOWING A RE SUGGESTED RANGE S FROM THEBAN[facility]ON [facility]ENTERAN COL LEGE OF CHEST PHYSICIANS:J CARLOS CATION INR VALUEPROPHYLAXI S OF VENOUS THROMBOS IS (ORTHOPEDIC VÍCTOR OUSMANE) 2.0 - 3.0PROP HYLAXIS OF VENOUS THROM BOSIS (OTHER THAN HIG H-RISK SURGERY) 2.0 - 3.0TRE ATMENT OF DEEP VEIN THROMBOSIS OR PULMONARY EMBOL ISM 2.0 - 3.0PREV ENTION OF SYSTEMIC EMB OLISM TISSUE HEART VA LVES 2.0 - 3.0 AC RINCON MYOCARDIAL INFA RCTION (TO PREVENT SYSTEMIC EMBOLI [...] NONE BACU) Specimen comments: Clean CatchCBC W/AUTO [id number] 00:54:00 Test Item Value Reference Range Interpretation [...] X10 3uL 0.00-0.01 N NRBC#) ECG 12 [id number] 15:44:00 Test Item Value Reference Range Interpretation Comments Ventricular rate (test 112 code = 253) Atrial rate (test code = 112 255) WI interval (test code = 130 266) QRSD [...] MD (6837) on 05/05/2020 3:43:54 PM Jay CarrascoFkckmmrwvWEYK-MaH-2 (COVID-19) RNA [Presence] in Respiratory specimen by AYALA with probe [id number] 05:25:02 Test Item Value Reference Range Interpretation Comments SARS-CoV-2 (COVID-19) RNA Not detected Not-Detected [Presence] in Respiratory specimen by AYALA with probe detection (test code = 44967-0) XR Chest 2 [id number] 00:51:46Hm Interface, Radiology Results Incoming - 05/05/2020 12:54 AM CST EXAMINATION: XR CHEST 2 VWCLINICAL HISTORY: chest painCOMPARISON: 03/07/2020IMPRESSION:No radiographic evidence for acute cardiopulmonary process.Cardiomediastinal silhouette is within normal limits of size.No focal or confluent airspace consolidation is seen to suggest acute pneumonia. No sizable pleural effusion. No pneumothorax identified.No acute osseous abnormalities are visualized.[id number] Preliminary Interpretation - Not an [id number] 00:25:40Gio Martin DO 05/05/2020 6:20 AMECG ED Preliminary Interpretation - Not an OrderPerformed by: Gio Martin DOAuthorized by: Gio Martin DO ECG reviewed by ED Physician in the absence of a lip and gate builder: yes Interpretation: Interpretation: non-specific Rate: ECG rate: 112 ECG rate assessment: tachycardic Rhythm: Rhythm: sinus tachycardia Ectopy: Ectopy: none QRS: QRS axis: Normal QRS intervals: NormalConduction: Conduction: normal ST segments: ST segments: NormalT waves: T waves: normalHouston Buddhist COMPREHENSIVE METABOLIC [id number] 01:26:00 Test Item Value Reference Range Interpretation [...] TOTAL (test code = ALKP) BASIC METABOLIC [id number] 22:32:00 Test Item Value Reference Range Interpretation [...] CA) 8.1 MG/DL 8.5-10.1 L GLUCOSE BEDSIDE [id number] 22:26:00 Test Item Value Reference Range Interpretation Comments GLUCOSE BEDSIDE TESTING (test code 325 mg/dL 70-110 H = GLUBED) UA RFLX MICR CULT IF [id number] 22:24:00 Test Item Value Reference Range Interpretation [...] URINE: CLEAN CATCHUA RFLX MICR CULT IF [id number] 22:22:00 Test Item Value Reference Range Interpretation [...] culture: Dysuria/FrequencySOURCE OF URINE: CLEAN CATCHCBC W/AUTO [id number] 22:12:00 Test Item Value Reference Range Interpretation [...] CRITERIA = MDIFF) XR Chest 1 Vw [id number] 21:39:51Hm Interface, Radiology Results - 03/07/2020 9:42 PM CST EXAMINATION: XR CHEST 1 VW PORTABLECLINICAL HISTORY: SOB IMPRESSION:There was a poor inspiratory effort. Heart and mediastinum are within normal limits. There is no segmental infiltrate or effusion. No significant change from [facility]CS3704I4QNcigkmd [id number] 02:24:00 Test Item Value Reference Range Interpretation Comments GLUBED (test code = 391 MG/DL 70-110 H Performe d by certified GLUBED) 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 [facility] [id number] 08:39:00 Test Item Value Reference Range Interpretation Comments GLUBED (test code = 186 MG/DL 70-110 H Performe d by certified GLUBED) 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 [facility] BASIC METABOLIC [id number] 04:55:00 Test Item Value Reference Range Interpretation [...] 8.4 mg/dL 8.0-10.5 N CA) CBC W/AUTO [id number] 04:42:00 Test Item Value Reference Range Interpretation [...] (test code NO = MDIFF) CBC W/AUTO [id number] 04:41:00 Test Item Value Reference Range Interpretation [...] MANUAL DIFF REQUIRED (test code = MDIFF) [id number] 01:06:00 Test Item Value Reference Range Interpretation Comments GLUBED (test code = 231 MG/DL 70-110 H Performe d by certified GLUBED) 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 [facility] BASIC METABOLIC [id number] 21:34:00 Test Item Value Reference Range Interpretation [...] code = CA) mg/dL 8.0-10.5 HEPATIC FUNCTION [id number] 21:34:00 Test Item Value Reference Range Interpretation Comments TOTAL PROTEIN (test code = PROT) g/dL 6.4-8.2 ALBUMIN (test code = ALB) g/dL 3.4-5.0 BILIRUBIN TOTAL (test code = BILT) mg/dL 0.0-1.0 BILIRUBIN DIRECT (test code = BILD) MG/DL 0.0-0.30 SGOT/AST (test code = AST) IUnit/L 15-37 SGPT/ALT (test code = ALT) IUnit/L 30-65 ALKALINE PHOSPHATASE TOTAL (test IUnit/L 20-125 code = ALKP) [id number] 21:34:00 Test Item Value Reference Range Interpretation [...] may anayeli y by method. BASIC METABOLIC [id number] 21:34:00 Test Item Value Reference Range Interpretation [...] 9.1 mg/dL 8.0-10.5 N CA) HEPATIC FUNCTION [id number] 21:34:00 Test Item Value Reference Range Interpretation [...] 92 IUnit/L 20-125 N code = ALKP) [id number] 21:34:00 Test Item Value Reference Range Interpretation [...] may anayeli y by method. CBC W/AUTO [id number] 21:24:00 Test Item Value Reference Range Interpretation [...] (test code NO = MDIFF) CBC W/AUTO [id number] 21:23:00 Test Item Value Reference Range Interpretation [...] MANUAL DIFF REQUIRED (test code = MDIFF) [id number] 21:03:00 Test Item Value Reference Range Interpretation Comments GLUBED (test code = 387 MG/DL 70-110 H Performe d by certified GLUBED) 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 [facility] [id number] 23:21:00 Test Item Value Reference Range Interpretation Comments GLUBED (test code = 372 MG/DL 70-110 H Performe d by certified GLUBED) 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 [facility] BASIC METABOLIC [id number] 20:11:00 Test Item Value Reference Range Interpretation [...] code = 9.2 mg/dL 8.0-10.5 N CA) [id number] 20:11:00 Test Item Value Reference Range Interpretation [...] titative results may anayeli y by method. [id number] 20:11:00 Test Item Value Reference Range Interpretation [...] Legal orEmployment ev aluation purposes. CBC W/AUTO [id number] 20:01:00 Test Item Value Reference Range Interpretation [...] (test code NO = MDIFF) CBC W/AUTO [id number] 19:57:00 Test Item Value Reference Range Interpretation [...] code = MDIFF) - XR CHEST 1 [id number] 19:39:00 [facility] 1975 Sex: M FAX: Anamika Enamorado [phone] [place]: St: REG Name: BRITT FUENTES [facility] : 1975 Age/S: 44/M [address] [place] [address] Unit #: [id number] Loc: [place] [address] Phys: Anamika Dill Acct: [id number] Dis Date: Statu s: REG ER PHONE #: [phone] Exam Date: 02/18/20201919 FAX #: [phone] Reason: Cough EXAMS: CPT CODE: [id number] XR CHEST 1 V 86918 Portable single view AP chest INDICATION: Cough and shortness of breath Comparison: 12/01/2019 chest x-ray FINDINGS: The cardiomediastinal silhouette is normal in size. Lungs are clear. Costophrenic angles are sharp. No suspicious osseous abnormality is seen. IMPRESSION: No evidence for acute cardiopulmonary disease. SL: SGHarleyH at 1939 Reported and signed by: Srini May M.D. CC: Anamika MUHAMMAD Technologist: Kaykay Hemphill, RT(R); Shirley Guy RT(R) Trnscrd Date/Time/By: 02/18/2020 (1938) : By: [email or web address] Orig Print D/T: S: 02/18/2020 (1941) PAGE 1 Signed [id number] 22:06:00 Test Item Value Reference Range Interpretation Comments GLUBED (test code = 159 MG/DL 70-110 H Performe d by certified GLUBED) 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 [facility] ARTERIAL BLOOD [id number] 21:28:00 Test Item Value Reference Range Interpretation [...] code = MENDEL) certified opera tor at [facility] ABG TEMPERATURE (test 98.0 F code = TEMPA) ABG SITE (test code = L Rad SITEA) TCO2 ARTERIAL (test 24 code = TCO2A) DRUGS OF ABUSE SCREEN [id number] 21:25:00 Test Item Value Reference Range Interpretation [...] pur poses. UA RFLX MICR CULT IF [id number] 21:22:00 Test Item Value Reference Range Interpretation [...] Suprapubic PainSpecimen Description: CLEAN CATCH BASIC METABOLIC [id number] 20:58:00 Test Item Value Reference Range Interpretation [...] 9.8 mg/dL 8.0-10.5 N CA) HEPATIC FUNCTION [id number] 20:58:00 Test Item Value Reference Range Interpretation [...] 123 IUnit/L 20-125 N code = ALKP) [id number] 20:58:00 Test Item Value Reference Range Interpretation Comments MAGNESIUM (test code = MAG) 1.66 mg/dL 1.8-2.4 L [id number] 20:58:00 Test Item Value Reference Range Interpretation [...] titative results may anayeli y by method. [id number] 20:58:00 Test Item Value Reference Range Interpretation Comments ACETAMINOPHEN (test code = ACET) < 0.2 mg/dL 1.0-3.0 L [id number] 20:58:00 Test Item Value Reference Range Interpretation Comments SALICYLATE (test code = DAVE) < 3.0 mg/dL 0.0-20.0 N [id number] 20:58:00 Test Item Value Reference Range Interpretation [...] al orEmployment ev aluation purposes. CBC W/O [id number] 20:43:00 Test Item Value Reference Range Interpretation [...] fL 7.0-9.0 H = MPV) CBC W/O [id number] 20:41:00 Test Item Value Reference Range Interpretation [...] = PLT) 268 x10 3/uL 150-400 N [id number] 01:42:00 Test Item Value Reference Range Interpretation Comments GLUBED (test code = 382 MG/DL 70-110 H Performe d by certified GLUBED) 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 [facility] [id number] 08:11:00 Test Item Value Reference Range Interpretation Comments GLUBED (test code = 236 MG/DL 70-110 H Performe d by certified GLUBED) 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 [facility] [id number] 05:04:00 Test Item Value Reference Range Interpretation Comments GLUBED (test code = 356 MG/DL 70-110 H Performe d by certified GLUBED) 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 [facility] [id number] 03:31:00 Test Item Value Reference Range Interpretation Comments GLUBED (test code = 410 MG/DL 70-110 H Performe d by certified GLUBED) 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 [facility] DRUGS OF ABUSE SCREEN [id number] 01:08:00 Test Item Value Reference Range Interpretation [...] ed for non-medical pur poses. BASIC METABOLIC [id number] 00:51:00 Test Item Value Reference Range Interpretation [...] 10.7 mg/dL 8.0-10.5 H CA) HEPATIC FUNCTION [id number] 00:51:00 Test Item Value Reference Range Interpretation [...] 140 IUnit/L 20-125 H code = ALKP) [id number] 00:51:00 Test Item Value Reference Range Interpretation Comments ACETAMINOPHEN (test code = ACET) < 0.2 mg/dL 1.0-3.0 L [id number] 00:51:00 Test Item Value Reference Range Interpretation Comments SALICYLATE (test code = DAVE) < 3.0 mg/dL 0.0-20.0 N [id number] 00:51:00 Test Item Value Reference Range Interpretation [...] or Legal orEmployment ev aluation purposes. URINALYSIS [id number] 00:34:00 Test Item Value Reference Range Interpretation [...] SEEN /HPF NONE SEEN SQU) CBC W/O [id number] 00:26:00 Test Item Value Reference Range Interpretation [...] fL 7.0-9.0 H = MPV) BASIC METABOLIC [id number] 04:54:00 Test Item Value Reference Range Interpretation [...] N Specimen comments: Clean CatchHEPATIC FUNCTION PANEL [id number] 04:54:00 Test Item Value Reference Range Interpretation [...] N code = ALKP) Specimen comments: Clean [id number] 04:54:00 Test Item Value Reference Range Interpretation Comments LIPASE (test code = LIP) 157 Units/L 65.0-230.0 N Specimen comments: Clean [id number] 04:54:00 Test Item Value Reference Range Interpretation Comments ACETAMINOPHEN (test <2.0 mcg/ml 10.0-30.0 L Result i s in code = ACET) Microgram per milliliter. Specimen comments: Clean [id number] 04:54:00 Test Item Value Reference Range Interpretation Comments LITHIUM (test code = LITH) <0.1 MMOL/L 0.6-1.2 LL Specimen comments: Clean [id number] 04:54:00 Test Item Value Reference Range Interpretation Comments SALICYLATE (test code = DAVE) 5.7 mg/dl 2.8-20.0 N Specimen comments: Clean CatchVALPROIC ACID (DEPAKENE)2020-01-19 04:54:00 Test Item Value Reference Range Interpretation Comments VALPROIC ACID <3.0 mcg/dL 50-100 L The physicia n must (DEPAKENE) (test determine t he code = VALP) appropriate therapeutic range for each patient. Specimen comments: Clean [id number] 04:54:00 Test Item Value Reference Range Interpretation Comments ALCOHOL (test code 0.00 gm/dL 0.00-0.00 N ETHYL ALC OHOL VALUES - = ALC) INTERPRETATION: 0.050 GM/DL - NOT INT OXICATED 0.100 GM/DL - INTOXICATED 0.3 50-0.450 GM/DL - SEVEREL Y INTOXICATED 0.5 50 GM/DL- FATAL INTOXICAT ION Specimen comments: Clean CatchBASIC METABOLIC [id number] 04:53:00 Test Item Value Reference Range Interpretation [...] N Specimen comments: Clean CatchHEPATIC FUNCTION PANEL [id number] 04:53:00 Test Item Value Reference Range Interpretation [...] N code = ALKP) Specimen comments: Clean [id number] 04:53:00 Test Item Value Reference Range Interpretation Comments LIPASE (test code = LIP) 157 Units/L 65.0-230.0 N Specimen comments: Clean [id number] 04:53:00 Test Item Value Reference Range Interpretation Comments ACETAMINOPHEN (test <2.0 mcg/ml 10.0-30.0 L Result i s in code = ACET) Microgram per milliliter. Specimen comments: Clean [id number] 04:53:00 Test Item Value Reference Range Interpretation Comments LITHIUM (test code = LITH) MMOL/L 0.6-1.2 Specimen comments: Clean [id number] 04:53:00 Test Item Value Reference Range Interpretation Comments SALICYLATE (test code = DAVE) 5.7 mg/dl 2.8-20.0 N Specimen comments: Clean CatchVALPROIC ACID (DEPAKENE)2020-01-19 04:53:00 Test Item Value Reference Range Interpretation Comments VALPROIC ACID <3.0 mcg/dL 50-100 L The physicia n must (DEPAKENE) (test determine t he code = VALP) appropriate therapeutic range for each patient. Specimen comments: Clean [id number] 04:53:00 Test Item Value Reference Range Interpretation Comments ALCOHOL (test code 0.00 gm/dL 0.00-0.00 N ETHYL ALC OHOL VALUES - = ALC) INTERPRETATION: 0.050 GM/DL - NOT INT OXICATED 0.100 GM/DL - INTOXICATED 0.3 50-0.450 GM/DL - SEVEREL Y INTOXICATED 0.5 50 GM/DL- FATAL INTOXICAT ION Specimen comments: Clean CatchBASIC METABOLIC [id number] 04:46:00 Test Item Value Reference Range Interpretation [...] 8.0-10.5 Specimen comments: Clean CatchHEPATIC FUNCTION PANEL [id number] 04:46:00 Test Item Value Reference Range Interpretation [...] 50.0-136.0 code = ALKP) Specimen comments: Clean [id number] 04:46:00 Test Item Value Reference Range Interpretation Comments LIPASE (test code = LIP) Units/L 65.0-230.0 Specimen comments: Clean [id number] 04:46:00 Test Item Value Reference Range Interpretation Comments ACETAMINOPHEN (test code = ACET) mcg/ml 10.0-30.0 Specimen comments: Clean [id number] 04:46:00 Test Item Value Reference Range Interpretation Comments LITHIUM (test code = LITH) MMOL/L 0.6-1.2 Specimen comments: Clean [id number] 04:46:00 Test Item Value Reference Range Interpretation Comments SALICYLATE (test code = DAVE) mg/dl 2.8-20.0 Specimen comments: Clean CatchVALPROIC ACID (DEPAKENE)2020-01-19 04:46:00 Test Item Value Reference Range Interpretation Comments VALPROIC ACID (DEPAKENE) (test code = mcg/dL 50-100 VALP) Specimen comments: Clean [id number] 04:46:00 Test Item Value Reference Range Interpretation Comments ALCOHOL (test code = ALC) gm/dL 0.00-0.00 Specimen comments: Clean CatchDRUGS OF ABUSE SCREEN [id number] 04:45:00 Test Item Value Reference Range Interpretation [...] code = [place]) Specimen comments: Clean CatchURINALYSIS [id number] 04:45:00 Test Item Value Reference Range Interpretation [...] NONE BACU) Specimen comments: Clean CatchCBC W/AUTO [id number] 04:40:00 Test Item Value Reference Range Interpretation [...] 0.00 X10 3uL 0.00-0.01 N NRBC#) URINALYSIS [id number] 04:39:00 Test Item Value Reference Range Interpretation [...] code = NONE BACU) Specimen comments: Clean IzdddRMWJ-YnT-0 (COVID-19) RNA [Presence] in Respiratory specimen by AYALA with probe [id number] 14:14:30 Test Item Value Reference Range Interpretation Comments SARS-CoV-2 (COVID-19) RNA Not detected Not-Detected [Presence] in Respiratory specimen by AYALA with probe detection (test code = 09303-1) [id number] 12:04:00 Test Item Value Reference Range Interpretation Comments GLUBED (test code = 255 MG/DL 70-110 H Performe d by certified GLUBED) 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 [facility] - XR CHEST 1 [id number] 05:28:00 FAX: Willy Flores DO [phone] [place]: St: REG Name: BRITT FUENTES [facility] : 1975 Age/S: 44/M [address] [place] [address] Blvd Unit#: [id number] Loc: [place] [address] Phys: Willy Askew DO Acct: [id number] Dis Date: Status: REG ER PHONE #: [phone] Exam Date: 12/01/2019501 FAX #: [phone] Reason: CHEST PAIN EXAMS: CPT CODE: [id number] XR CHEST 1 V 97404 Chest x-ray 1 view History: Chest pain [...] By: OniUK1 Orig Print D/T: S: 12/01/2019 (2799) PAGE 1 Signed ReportCOMPREHENSIVE METABOLIC [id number] 04:02:00 Test Item Value Reference Range Interpretation [...] 20-125 N TOTAL (test code = ALKP) [id number] 04:02:00 Test Item Value Reference Range Interpretation [...] titative results may anayeli y by method. [id number] 04:02:00 Test Item Value Reference Range Interpretation Comments ALCOHOL (test code 14.9 mg/dL <3.0 H Ethyl Alc ohol = ALC) Interpretation: 100 mg/dL - Legally Intoxic ated 300-400 mg/ dL - Severely Intoxi cated >400 mg/dL - Potentially LethalResults a re for Medical purpose s only, and not for Leg al orEmployment ev aluation purposes. CBC W/AUTO [id number] 03:32:00 Test Item Value Reference Range Interpretation [...] DIFF REQUIRED (test code NO = MDIFF) [id number] 05:23:00 Test Item Value Reference Range Interpretation Comments SODIUM (test code = NA) 135 mEq/L 134-147 N DRUGS OF ABUSE SCREEN [id number] 23:56:00 Test Item Value Reference Range Interpretation [...] ed for non-medical pur poses. BASIC METABOLIC [id number] 23:54:00 Test Item Value Reference Range Interpretation [...] 8.9 mg/dL 8.0-10.5 N CA) HEPATIC FUNCTION [id number] 23:54:00 Test Item Value Reference Range Interpretation [...] in INTERNATIONAL (test code = CK) UNITS/LITER [id number] 23:54:00 Test Item Value Reference Range Interpretation Comments ACETAMINOPHEN (test code = ACET) < 2 ug/mL 10-30 L [id number] 23:54:00 Test Item Value Reference Range Interpretation Comments SALICYLATE (test code = DAVE) 5.3 mg/dL 2.8-20.0 N VALPROIC ACID (DEPAKENE)2019-10-17 23:54:00 Test Item Value Reference Range Interpretation Comments VALPROIC ACID (DEPAKENE) (test < 3 mcg/mL 50.0-100.0 L code = VALP) [id number] 23:54:00 Test Item Value Reference Range Interpretation Comments ALCOHOL (test code < 0.003 G/dL <0.003 Ethyl Alc ohol = ALC) Interpretation: 0.100 gm/dL - Legally Intoxic ated 0.300-0.40 0 gm/dL - Severely Into xicated >0.400 gm/dL - Potentially LethalResults a re for Medical purpose s only, and not for Leg al orEmployment ev aluation purposes. DRUGS OF ABUSE SCREEN [id number] 23:46:00 Test Item Value Reference Range Interpretation [...] ed for non-medical pur poses. BASIC METABOLIC [id number] 23:44:00 Test Item Value Reference Range Interpretation [...] CA) 8.9 mg/dL 8.0-10.5 N HEPATIC FUNCTION [id number] 23:44:00 Test Item Value Reference Range Interpretation [...] KINASE (CK) (test code = CK) 35-232 [id number] 23:44:00 Test Item Value Reference Range Interpretation Comments ACETAMINOPHEN (test code = ACET) ug/mL 10-30 [id number] 23:44:00 Test Item Value Reference Range Interpretation Comments SALICYLATE (test code = DAVE) mg/dL 2.8-20.0 VALPROIC ACID (DEPAKENE)2019-10-17 23:44:00 Test Item Value Reference Range Interpretation Comments VALPROIC ACID (DEPAKENE) (test code = mcg/mL 50.0-100.0 VALP) [id number] 23:44:00 Test Item Value Reference Range Interpretation Comments ALCOHOL (test code = ALC) G/dL <0.003 URINALYSIS [id number] 23:38:00 Test Item Value Reference Range Interpretation [...] NONE SEEN code = SQU) CBC W/O [id number] 23:30:00 Test Item Value Reference Range Interpretation [...] in Respiratory specimen by AYALA with probe [id number] 12:42:52 Test Item Value Reference Range Interpretation Comments SARS coronavirus 2 RNA Not detected Not-Detected [Presence] in Respiratory specimen by AYALA with probe detection (test code = 32402-9) BASIC METABOLIC [id number] 09:01:00 Test Item Value Reference Range Interpretation [...] 8.8 mg/dL 8.0-10.5 N CA) HEPATIC FUNCTION [id number] 09:01:00 Test Item Value Reference Range Interpretation [...] 105 IUnit/L 20-125 N code = ALKP) [id number] 09:01:00 Test Item Value Reference Range Interpretation Comments ACETAMINOPHEN (test code = ACET) < 2 ug/mL 10-30 L [id number] 09:01:00 Test Item Value Reference Range Interpretation Comments SALICYLATE (test code = DAVE) 5.4 mg/dL 2.8-20.0 N [id number] 09:01:00 Test Item Value Reference Range Interpretation Comments ALCOHOL (test code < 0.003 G/dL <0.003 Ethyl Alc ohol = ALC) Interpretation: 0.100 gm/dL - Legally Intoxic ated 0.300-0.40 0 gm/dL - Severely Into xicated >0.400 gm/dL - Potentially LethalResults a re for Medical purpose s only, and not for Leg al orEmployment ev aluation purposes. BASIC METABOLIC [id number] 08:57:00 Test Item Value Reference Range Interpretation [...] 8.8 mg/dL 8.0-10.5 N CA) HEPATIC FUNCTION [id number] 08:57:00 Test Item Value Reference Range Interpretation [...] 105 IUnit/L 20-125 N code = ALKP) [id number] 08:57:00 Test Item Value Reference Range Interpretation Comments ACETAMINOPHEN (test code = ACET) ug/mL -30 [id number] 08:57:00 Test Item Value Reference Range Interpretation Comments SALICYLATE (test code = DAVE) 5.4 mg/dL 2.8-20.0 N [id number] 08:57:00 Test Item Value Reference Range Interpretation Comments ALCOHOL (test code < 0.003 G/dL <0.003 Ethyl Alc ohol = ALC) Interpretation: 0.100 gm/dL - Legally Intoxic ated 0.300-0.40 0 gm/dL - Severely Into xicated >0.400 gm/dL - Potentially LethalResults a re for Medical purpose s only, and not for Leg al orEmployment ev aluation purposes. DRUGS OF ABUSE SCREEN [id number] 08:56:00 Test Item Value Reference Range Interpretation [...] ed for non-medical pur poses. BASIC METABOLIC [id number] 08:45:00 Test Item Value Reference Range Interpretation [...] CA) 8.8 mg/dL 8.0-10.5 N HEPATIC FUNCTION [id number] 08:45:00 Test Item Value Reference Range Interpretation Comments TOTAL PROTEIN (test code = PROT) g/dL 6.4-8.2 ALBUMIN (test code = ALB) g/dL 3.4-5.0 BILIRUBIN TOTAL (test code = BILT) MG/DL <1.5 BILIRUBIN DIRECT (test code = BILD) MG/DL 0.0-0.30 SGOT/AST (test code = AST) IUnit/L 15-37 SGPT/ALT (test code = ALT) IUnit/L 15-65 ALKALINE PHOSPHATASE TOTAL (test IUnit/L 20-125 code = ALKP) [id number] 08:45:00 Test Item Value Reference Range Interpretation Comments ACETAMINOPHEN (test code = ACET) ug/mL 10-30 [id number] 08:45:00 Test Item Value Reference Range Interpretation Comments SALICYLATE (test code = DAVE) mg/dL 2.8-20.0 [id number] 08:45:00 Test Item Value Reference Range Interpretation Comments ALCOHOL (test code = ALC) G/dL <0.003 CBC W/O [id number] 08:30:00 Test Item Value Reference Range Interpretation [...] H = MPV) - XR CHEST 1 [id number] 07:19:00 FAX: Willy Dahl MD [phone] [place]: St: PRE Name: BRITT FUENTES [facility] : 1975 Age/S: 44/M [address] [place] [address] Unit#: [id number] Loc: [place] [address] Phys: Willy Dahl MD Acct: [id number] Dis Date: Status: PRE ER PHONE #: [phone] Exam Date: 10/07/2019718 FAX #: [phone] Reason: SOB EXAMS: CPT CODE: [id number] XR CHEST 1 V 06961 Study: - XR CHEST 1 V 10/07/2019 6:58 AM PatientName: BRITT FUENTES MR: [id number] : 1975; Age: 44 years y/o Male Ordering Physician: Willy Dahl MD Clinical Indication: SOB Comparison: None FINDINGS LUNGS: The lungs are clear of consolidation, pleural effusion, and pneumothorax. HEART AND MEDIASTINUM: Normal size heart. LINES: None. OSSEOUS STRUCTURES: No fracture, dislocation, or suspicious focal osseous lesion. OTHER: None. IMPRESSION: No acute abnormality as above discussed. SL: [id number] at 0719 Reported and signed by: Spike Brooks M.D. CC: Willy Dalh MD Technologist: RT Colton(Jose Alberto) Trnscrd Date/Time/By: 10/07/2019 (07) : By: [email or web address] Orig Print D/T: S: 10/07/2019 (6913) PAGE 1 Signed [id number] 00:21:00 Test Item Value Reference Range Interpretation Comments GLUBED (test code = 95 MG/DL 70-110 N Performe d by certified GLUBED) 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 [facility] COMPREHENSIVE METABOLIC [id number] 15:35:00 Test Item Value Reference Range Interpretation [...] 20-125 N TOTAL (test code = ALKP) [id number] 15:35:00 Test Item Value Reference Range Interpretation Comments ALCOHOL (test code < 0.003 G/dL <0.003 Ethyl Alc ohol = ALC) Interpretation: 0.100 gm/dL - Legally Intoxic ated 0.300-0.40 0 gm/dL - Severely Into xicated >0.400 gm/dL - Potentially LethalResults a re for Medical purpose s only, and not for Leg al orEmployment ev aluation purposes. COMPREHENSIVE METABOLIC [id number] 15:30:00 Test Item Value Reference Range Interpretation [...] TOTAL (test IUnit/L 20-125 code = ALKP) [id number] 15:30:00 Test Item Value Reference Range Interpretation Comments ALCOHOL (test code = ALC) G/dL <0.003 DRUGS OF ABUSE SCREEN [id number] 15:30:00 Test Item Value Reference Range Interpretation [...] us ed for non-medical pur poses. URINALYSIS [id number] 15:29:00 Test Item Value Reference Range Interpretation [...] 0-5 /HPF NONE SEEN SQU) CBC W/AUTO [id number] 15:16:00 Test Item Value Reference Range Interpretation [...] (test code NO = MDIFF) WHOLE BLOOD [id number] 11:55:00 Test Item Value Reference Range Interpretation Comments WHOLE BLOOD GLUCOSE 132 MG/DL 70-99 Fastin g glucose (test code = POC GLU) normal <100 MG/DL- [employer] [place] [employer] recommend ation WHOLE BLOOD [id number] 07:00:00 Test Item Value Reference Range Interpretation Comments WHOLE BLOOD GLUCOSE 342 MG/DL 70-99 H Fastin g glucose (test code = POC GLU) normal <100 MG/DL- [employer] [place] [employer] recommend ation URINE DRUG [id number] 01:31:00 Test Item Value Reference Range Interpretation [...] PCP (test code = NEGATIVE NEGATIVE BMTPCP) [id number] 00:29:00 Test Item Value Reference Range Interpretation [...] H UAMICRO (test code = UAMICRO) NO [id number] 23:22:00 Test Item Value Reference Range Interpretation [...] glucose = GLUCOSE) normal <100 MG/ DL- [employer] [place] [employer] recommendation* * CALCIUM (test [...] mL/min/1.73m2 mL/min/1.73m2 is considered norm al. CREATINE [id number] 23:22:00 Test Item Value Reference Range Interpretation Comments CK (test code = CK) 335 U/L 55-170 H BLOOD ALCOHOL (ETOH)2019-08-25 23:21:00 Test Item Value Reference Range Interpretation Comments ALCOHOL BLOOD LEVEL <10 MG/DL 0-10 Results are to be used (test code = ALC BLD) for me dical purposes (treatment) onl y. Not intended for no n medical purpose s. [id number] 23:06:00 Test Item Value Reference Range Interpretation [...] K/UL 1.2-7.2 = NEUT) Urinalysis specimen collection [id number] 18:25:00 Test Item Value Reference Range Interpretation Comments Urine Source (test code = 56312-6) URINE [facility] AnamikaColor of Urine by [id number] 18:25:00 Test Item Value Reference Range Interpretation Comments Urine Color (test code = 97800-9) Lt Yellow [facility] ElizabethUrine clarity [id number] 18:25:00 Test Item Value Reference Range Interpretation Comments Urine Appearance (test code = 57410-9) Clear [facility] ElijarodUrine pH measurement by automated test [id number] 18:25:00 Test Item Value Reference Range Interpretation Comments Urine pH (test code = 94890-5) 5.5 [facility] CourtneySaint Joseph[facility] Hospitalpecific gravity of Urine by Automated test strip 2019-08-25 18:25:00 Test Item Value Reference Range Interpretation Comments Urine Specific [place] (test code = > 1.030 50095-5) [facility] AnamikaUrine protein measurement by automated test strip (mass/volume)2019-08-25 18:25:00 Test Item Value Reference Range Interpretation Comments Urine Protein (test code = Negative mg/dL 82192-8) [facility] PollothUrine glucose measurement by automated test strip (mass/volume)2019-08-25 18:25:00 Test Item Value Reference Range Interpretation Comments Urine Glucose (UA) (test code = >1000 mg/dL 11212-9) [facility] ketones measurement by automated test strip (mass/volume)2019-08-25 18:25:00 Test Item Value Reference Range Interpretation Comments Urine Ketones (test code = Negative mg/dL 81132-9) [facility] erythrocytes count by automated test strip (number/volume)2019-08-25 18:25:00 Test Item Value Reference Range Interpretation Comments Urine Occult Blood (test code = Negative 13975-8) [facility] nitrite detection by automated test [id number] 18:25:00 Test Item Value Reference Range Interpretation Comments Urine Nitrite (test code = 44219-7) Negative [facility] total bilirubin measurement by automated test strip (mass/volume)2019-08-25 18:25:00 Test Item Value Reference Range Interpretation Comments Urine Bilirubin (test code = Negative mg/dL 90586-4) [facility] AnamikaUrine urobilinogen measurement by automated test strip (mass/volume)2019-08-25 18:25:00 Test Item Value Reference Range Interpretation Comments Urine Urobilinogen (test code Negative mg/dL = 30909-1) [facility] AnamikaUrine leukocytes count by automated test strip (number/volume)2019-08-25 18:25:00 Test Item Value Reference Range Interpretation Comments Urine Leukocyte Esterase Negative {Janie}/uL (test code = 29647-6) KASH YangMicroscopic examination of [id number] 18:25:00 Test Item Value Reference Range Interpretation Comments Microscopic Urinalysis (T) (test code = ----- 05296-5) [facility] sediment erythrocyte count by microscopy (number/high power field)2019-08-25 18:25:00 Test Item Value Reference Range Interpretation Comments Urine RBC (test code = 82851-5) 0-2 /[HPF] [facility] sediment leukocyte count by microscopy (number/high power field)2019-08-25 18:25:00 Test Item Value Reference Range Interpretation Comments Urine WBC (test code = 5821-4) 0-5 /[HPF] [facility] sediment epithelial cell count by microscopy (number/high power field)2019-08-25 18:25:00 Test Item Value Reference Range Interpretation Comments Urine Epithelial Cells (test None Seen /[HPF] code = 5787-7) [facility] sediment crystal count by microscopy (number/high power field)2019-08-25 18:25:00 Test Item Value Reference Range Interpretation Comments Urine Crystals (test code = None Seen /[HPF] 67866-4) [facility] sediment bacteria count by microscopy (number/high power field)2019-08-25 18:25:00 Test Item Value Reference Range Interpretation Comments Urine Bacteria (test code = None Seen /[HPF] 5769-5) [facility] sediment casts count by microscopy (number/low power field)2019-08-25 18:25:00 Test Item Value Reference Range Interpretation Comments Urine Casts (test code = None Seen /[LPF] 9842-6) [facility] sediment hyaline cast count by microscopy (number/low power field)2019-08-25 18:25:00 Test Item Value Reference Range Interpretation Comments Urine Hyaline Casts (test None Seen /[LPF] code = 5796-8) KASH CourtneythYeast detection in urine sediment by light microscopy 2019-08-25 18:25:00 Test Item Value Reference Range Interpretation Comments Urine Yeast (test code = None Seen /[HPF] 19381-7) [facility] ElizabethService comment [id number] 18:25:00 Test Item Value Reference Range Interpretation Comments Urinalysis Comment (test code = 8262-8) * [facility] ElizabethService comment 18:25:00 Test Item Value [...] Interpretation Comments Anion Gap (test code = 02122-8) [address] ElizabethSerum or plasma urea nitrogen measurement (mass/volume) 2019-08-25 02:07:00 Test Item Value Reference Range Interpretation Comments Blood Urea Nitrogen (test code = 9 mg/dL 3094-0) [facility] ElizabethSerum or plasma creatinine measurement (mass/volume) 2019-08-25 02:07:00 Test Item Value Reference Range Interpretation Comments Creatinine (test code = 2160-0) 1.0 mg/dL [facility] ElizabethGFR estimate [id number] 02:07:00 Test Item Value Reference Range Interpretation Comments Estimat Glomerular Filtration Rate 87 (test code = 33285-1) [facility] ElizabethSerum or plasma glucose measurement (mass/volume) 2019-08-25 02:07:00 Test Item Value Reference Range Interpretation Comments Glucose Level (test code = 2345-7) 343 mg/dL [facility]rum or plasma calcium measurement (mass/volume) 2019-08-25 02:07:00 Test Item Value Reference Range Interpretation Comments Calcium Level (test code = 43654-1) 8.6 mg/dL [facility]. [facility]ererum or plasma total bilirubin measurement (mass/volume) 2019-08-25 02:07:00 Test Item Value Reference Range Interpretation Comments Total Bilirubin (test code = 0.1 mg/dL 1974-05) [facility]. [facility]ererum or plasma aspartate aminotransferase measurement (enzymatic activity/volume)2019-08-25 02:07:00 Test Item Value Reference Range Interpretation Comments Aspartate Amino Transf (AST/SGOT) 17 U/L (test code = 1920-8) [facility]. [facility] or plasma alanine aminotransferase measurement (enzymatic activity/volume)2019-08-25 02:07:00 Test Item Value Reference Range Interpretation Comments Alanine Aminotransferase (ALT/SGPT) 18 U/L (test code = 1742-6) [facility]. [facility]ere[facility] or plasma protein measurement (mass/volume) 2019-08-25 02:07:00 Test Item Value Reference Range Interpretation Comments Total Protein (test code = 2885-2) 6.6 g/dL [facility]. [facility]ererum or plasma albumin measurement (mass/volume) 2019-08-25 02:07:00 Test Item Value Reference Range Interpretation Comments Albumin (test code = 1751-7) 3.8 g/dL [facility] alkaline phosphatase measurement (enzymatic activity/volume)2019-08-25 02:07:00 Test Item Value Reference Range Interpretation Comments Alkaline Phosphatase (test code = 84 U/L 6768-6) [facility] CenterCreat[facility] kinase ser/[id number] 02:07:00 Test Item Value Reference Range Interpretation Comments Total Creatine Kinase (test code = 411 U/L 2157-6) [facility] or plasma free thyroxine (FT4) measurement (mass/volume)2019-08-25 02:07:00 Test Item Value Reference Range Interpretation Comments Free Thyroxine (test code = 0.83 ng/dL 3024-7) [facility] Centererum or plasma thyrotropin measurement with detection limit of 0.005 mIU/L or less (units/volume)2019-08-25 02:07:00 Test Item Value Reference Range Interpretation Comments Thyroid Stimulating Hormone 1.48 u[iU]/mL (TSH) (test code = 61184-5) [facility]ibeSaint [facility] Hospitalerum or plasma triiodothyronine (T3) measurement (mass/volume)2019-08-25 02:07:00 Test Item Value Reference Range Interpretation Comments Total Triiodothyronine (test code 0.95 ng/mL = 3053-6) [facility] ElibeSaint Joseph[facility] Hospitalerum or plasma acetaminophen measurement (mass/volume) 2019-08-25 02:07:00 Test Item Value Reference Range Interpretation Comments Acetaminophen Level (test code = < 0.6 ug/mL 3298-7) [facility] Hospitalalicylate ser/[id number] 02:07:00 Test Item Value Reference Range Interpretation Comments Salicylates Level (test code = < 5.0 mg/dL 4024-6) [facility]. [facility] Hospitalerum or plasma ethanol measurement (mass/volume) 2019-08-25 02:07:00 Test Item Value Reference Range Interpretation Comments Ethyl Alcohol Level (test code = < 10 mg/dL 5643-2) [facility] CenterAutomated blood leukocyte count (number/volume)2019-08-25 02:07:00 Test Item Value Reference Range Interpretation Comments White Blood Count (test code = 8.9 10*3/uL 6690-2) [facility] erythrocytes automated count (number/volume) 2019-08-25 02:07:00 Test Item Value Reference Range Interpretation Comments Red Blood Count (test code = 4.10 10*6/uL 789-8) [facility]. PriceBlood hemoglobin measurement (mass/volume)2019-08-25 02:07:00 Test Item Value Reference Range Interpretation Comments Hemoglobin (test code = 718-7) 13.1 g/dL [facility] CenterAutomated blood hematocrit (volume fraction)2019-08-25 02:07:00 Test Item Value Reference Range Interpretation Comments Hematocrit (test code = 4544-3) 37.7 % [facility] ElizabethAutomated erythrocyte mean corpuscular volume (MCV) [id number] 02:07:00 Test Item Value Reference Range Interpretation Comments Mean Corpuscular Volume (test code = 92 fL 787-2) [facility] ElizabethAutomated erythrocyte mean corpuscular hemoglobin (mass per erythrocyte)2019-08-25 02:07:00 Test Item Value Reference Range Interpretation Comments Mean Corpuscular Hemoglobin (test 32.0 pg code = 785-6) [facility] ElizabethAutomated erythrocyte mean corpuscular hemoglobin concentration measurement (mass/[id number] 02:07:00 Test Item Value Reference Range Interpretation Comments Mean Corpuscular Hemoglobin Concent 34.7 g/dL (test code = 786-4) [facility] ElizabethAutomated erythrocyte distribution width [id number] 02:07:00 Test Item Value Reference Range Interpretation Comments Red Cell Distribution Width (test code 12.6 % = 788-0) [facility] ElizabethAutomated blood platelet count (count/volume)2019-08-25 02:07:00 Test Item Value Reference Range Interpretation Comments Platelet Count (test code = 228 10*3/uL 777-3) [facility] ElizabethAutomated blood platelet mean volume [id number] 02:07:00 Test Item Value Reference Range Interpretation Comments Mean Platelet Volume (test code = 10.0 93212-1) [facility] ElizabethAutomated blood neutrophil count as percentage of total qjhnuriqru8489-60-42 02:07:00 Test Item Value Reference Range Interpretation Comments Neutrophils (%) (Auto) (test code = 55 % 770-8) [facility] ElizabethAutomated blood immature granulocyte count as percentage of total elfavadxox3570-02-01 02:07:00 Test Item Value Reference Range Interpretation Comments Immature Granulocyte % (Auto) (test 0 % code = 69656-6) [facility] ElizabethAutomated blood lymphocyte count as percentage of total xxqhieqhpx2817-15-22 02:07:00 Test Item Value Reference Range Interpretation Comments Lymphocytes (%) (Auto) (test code = 32 % 736-9) [facility] ElizabethAutomated blood monocyte count as percentage of total hjblrbnvol2540-95-83 02:07:00 Test Item Value Reference Range Interpretation Comments Monocytes (%) (Auto) (test code = 9 % 5905-5) [facility] ElizabethAutomated blood eosinophil count as percentage of total gvvpdfvdtk9650-90-16 02:07:00 Test Item Value Reference Range Interpretation Comments Eosinophils (%) (Auto) (test code = 3 % 713-8) [facility] ElizabethAutomated blood basophil count as percentage of total mgsjtysfpx2329-68-44 02:07:00 Test Item Value Reference Range Interpretation Comments Basophils (%) (Auto) (test code = 1 % 706-2) [facility] ElizabethAutomated blood nucleated erythrocyte count as percentage of total bwliicjnnq8301-06-70 02:07:00 Test Item Value Reference Range Interpretation Comments Nucleated Red Blood Cells % (test code 0.0 % = 46727-3) [facility] ElizabethAutomated blood neutrophil count (number/volume)2019-08-25 02:07:00 Test Item Value Reference Range Interpretation Comments Neutrophils # (Auto) (test code = 4.9 10*3/uL 751-8) [facility] ElizabethAutomated blood immature granulocyte count as percentage of total qotqnjohpt5722-96-06 02:07:00 Test Item Value Reference Range Interpretation Comments Immature Granulocyte # (Auto) 0.0 10*3/uL (test code = 61409-4) [facility] ElizabethAutomated blood lymphocyte count (number/volume)2019-08-25 02:07:00 Test Item Value Reference Range Interpretation Comments Lymphocytes # (Auto) (test code = 2.8 10*3/uL 731-0) [facility] ElizabethBlood monocytes automated count (number/volume)2019-08-25 02:07:00 Test Item Value Reference Range Interpretation Comments Monocytes # (Auto) (test code = 0.8 10*3/uL 742-7) [facility] ElizabethAutomated blood eosinophil [id number] 02:07:00 Test Item Value Reference Range Interpretation Comments Eosinophils # (Auto) (test code = 0.3 10*3/uL 711-2) [facility] ElizabethAutomated blood basophil count (number/volume)2019-08-25 02:07:00 Test Item Value Reference Range Interpretation Comments Basophils # (Auto) (test code = 0.1 10*3/uL 704-7) [facility] ElizabethAutomated blood nucleated erythrocyte count (count/volume) 2019-08-25 02:07:00 Test Item Value Reference Range Interpretation Comments Nucleated Red Blood Cells # 0.00 10*3/uL (test code = 771-6) [facility] ElizabethService comment 02:07:00 Test Item Value Reference Range Interpretation [...] Interpretation Comments Anion Gap (test code = 13967-0) [address] ElizabethSerum or plasma urea nitrogen measurement (mass/volume) 2019-08-25 02:07:00 Test Item Value Reference Range Interpretation Comments Blood Urea Nitrogen (test code = 9 mg/dL 3094-0) [facility]Serum or plasma creatinine measurement (mass/volume) 2019-08-25 02:07:00 Test Item Value Reference Range Interpretation Comments Creatinine (test code = 2160-0) 1.0 mg/dL [facility] ElizabethGFR estimate [id number] 02:07:00 Test Item Value Reference Range Interpretation Comments Estimat Glomerular Filtration Rate 87 (test code = 97705-4) [facility] ElizabethSerum or plasma glucose measurement (mass/volume) 2019-08-25 02:07:00 Test Item Value Reference Range Interpretation Comments Glucose Level (test code = 2345-7) 343 mg/dL [facility] ElifunmibethSerum or plasma calcium measurement (mass/volume) 2019-08-25 02:07:00 Test Item Value Reference Range Interpretation Comments Calcium Level (test code = 59263-0) 8.6 mg/dL [facility] ElifunmibethSerum or plasma total bilirubin measurement (mass/volume) 2019-08-25 02:07:00 Test Item Value Reference Range Interpretation Comments Total Bilirubin (test code = 0.1 mg/dL 1974-) [facility] JesusbethSerum or plasma aspartate aminotransferase measurement (enzymatic activity/volume)2019-08-25 02:07:00 Test Item Value Reference Range Interpretation Comments Aspartate Amino Transf (AST/SGOT) 17 U/L (test code = 1920-8) [facility] JesusbethSerum or plasma alanine aminotransferase measurement (enzymatic activity/volume)2019-08-25 02:07:00 Test Item Value Reference Range Interpretation Comments Alanine Aminotransferase (ALT/SGPT) 18 U/L (test code = 1742-6) [facility] ElifunmibethSerum or plasma protein measurement (mass/volume) 2019-08-25 02:07:00 Test Item Value Reference Range Interpretation Comments Total Protein (test code = 2885-2) 6.6 g/dL [facility] ElifunmibethSerum or plasma albumin measurement (mass/volume) 2019-08-25 02:07:00 Test Item Value Reference Range Interpretation Comments Albumin (test code = 1751-7) 3.8 g/dL [facility] ElizabethSerum or plasma alkaline phosphatase measurement (enzymatic activity/volume)2019-08-25 02:07:00 Test Item Value Reference Range Interpretation Comments Alkaline Phosphatase (test code = 84 U/L 6768-6) [facility]. PriceCreatine kinase ser/[id number] 02:07:00 Test Item Value Reference Range Interpretation Comments Total Creatine Kinase (test code = 411 U/L 2157-6) [facility] ElibethSerum or plasma free thyroxine (FT4) measurement (mass/volume)2019-08-25 02:07:00 Test Item Value Reference Range Interpretation Comments Free Thyroxine (test code = 0.83 ng/dL 3024-7) [facility] Centererum or plasma thyrotropin measurement with detection limit of 0.005 mIU/L or less (units/volume)2019-08-25 02:07:00 Test Item Value Reference Range Interpretation Comments Thyroid Stimulating Hormone 1.48 u[iU]/mL (TSH) (test code = 60158-3) [facility]. [facility] Hospitalerum or plasma triiodothyronine (T3) measurement (mass/volume)2019-08-25 02:07:00 Test Item Value Reference Range Interpretation Comments Total Triiodothyronine (test code 0.95 ng/mL = 3053-6) [facility]. [facility] Hospitalerum or plasma acetaminophen measurement (mass/volume) 2019-08-25 02:07:00 Test Item Value Reference Range Interpretation Comments Acetaminophen Level (test code = < 0.6 ug/mL 3298-7) [facility]. [facility] Centeralicylate ser/ysje3235-16-60 02:07:00 Test Item Value Reference Range Interpretation Comments Salicylates Level (test code = < 5.0 mg/dL 4024-6) [facility]. [place] Hospitalerum or plasma ethanol measurement (mass/volume) 2019-08-25 02:07:00 Test Item Value Reference Range Interpretation Comments Ethyl Alcohol Level (test code = < 10 mg/dL 5643-2) [facility]. [facility] hospitalAutom[facility] blood leukocyte count (number/volume)2019-08-25 02:07:00 Test Item Value Reference Range Interpretation Comments White Blood Count (test code = 8.9 10*3/uL 6690-2) [facility] CenterBlood erythrocytes automated count (number/volume) 2019-08-25 02:07:00 Test [...] [facility] ElizabethAutomated erythrocyte mean corpuscular volume (MCV) [id number] 02:07:00 Test Item Value Reference Range Interpretation Comments Mean Corpuscular Volume (test code = 92 fL 787-2) [facility] ElizabethAutomated erythrocyte mean corpuscular hemoglobin (mass per erythrocyte)2019-08-25 02:07:00 Test Item Value Reference Range Interpretation Comments Mean Corpuscular Hemoglobin (test 32.0 pg code = 785-6) [facility] ElizabethAutomated erythrocyte mean corpuscular hemoglobin concentration measurement (mass/[id number] 02:07:00 Test Item Value Reference Range Interpretation Comments Mean Corpuscular Hemoglobin Concent 34.7 g/dL (test code = 786-4) [facility] erythrocyte distribution width [id number] 02:07:00 Test Item Value Reference Range Interpretation Comments Red Cell Distribution Width (test code 12.6 % = 788-0) [facility] ElizabethAutom[facility] blood platelet count (count/volume)2019-08-25 02:07:00 Test Item Value Reference Range Interpretation Comments Platelet Count (test code = 228 10*3/uL 777-3) [facility]Autom[facility] blood platelet mean volume [id number] 02:07:00 Test Item Value Reference Range Interpretation Comments Mean Platelet Volume (test code = 10.0 57701-6) [facility] ElizabethAutom[facility] blood neutrophil count as percentage of total mgmdbnkgug6310-13-44 02:07:00 Test Item Value Reference Range Interpretation Comments Neutrophils (%) (Auto) (test code = 55 % 770-8) [facility] ElizabethAutom[facility] blood immature granulocyte count as percentage of total kpxsdzdwhe3881-63-04 02:07:00 Test Item Value Reference Range Interpretation Comments Immature Granulocyte % (Auto) (test 0 % code = 15305-3) [facility] blood lymphocyte count as percentage of total gqzwiwbyfx6612-69-53 02:07:00 Test Item Value Reference Range Interpretation Comments Lymphocytes (%) (Auto) (test code = 32 % 736-9) [facility] ElizabethAutom[facility] blood monocyte count as percentage of total fvmqdninbu6654-13-88 02:07:00 Test Item Value Reference Range Interpretation Comments Monocytes (%) (Auto) (test code = 9 % 5905-5) [facility]Autom[facility] blood eosinophil count as percentage of total gqcudcxozc9956-46-77 02:07:00 Test Item Value Reference Range Interpretation Comments Eosinophils (%) (Auto) (test code = 3 % 713-8) [facility]Autom[facility] blood basophil count as percentage of total bvfumvdtvy1874-61-95 02:07:00 Test Item Value Reference Range Interpretation Comments Basophils (%) (Auto) (test code = 1 % 706-2) [facility] ElizabethAutom[facility] blood nucleated erythrocyte count as percentage of total [id number] 02:07:00 Test Item Value Reference Range Interpretation Comments Nucleated Red Blood Cells % (test code 0.0 % = 22014-7) [facility]Autom[facility] blood neutrophil count (number/volume)2019-08-25 02:07:00 Test Item Value Reference Range Interpretation Comments Neutrophils # (Auto) (test code = 4.9 10*3/uL 751-8) [facility]Autom[facility] blood immature granulocyte count as percentage of total nvsljrmjmm2700-19-28 02:07:00 Test Item Value Reference Range Interpretation Comments Immature Granulocyte # (Auto) 0.0 10*3/uL (test code = 41408-5) [facility] ElizabethAutom[facility] blood lymphocyte count (number/volume)2019-08-25 02:07:00 Test Item Value Reference Range Interpretation Comments Lymphocytes # (Auto) (test code = 2.8 10*3/uL 731-0) [facility] monocytes automated count (number/volume)2019-08-25 02:07:00 Test Item Value Reference Range Interpretation Comments Monocytes # (Auto) (test code = 0.8 10*3/uL 742-7) [facility] [id number] 02:07:00 Test Item Value Reference Range Interpretation Comments Eosinophils # (Auto) (test code = 0.3 10*3/uL 711-2) [facility] blood basophil count (number/volume)2019-08-25 02:07:00 Test Item Value Reference Range Interpretation Comments Basophils # (Auto) (test code = 0.1 10*3/uL 704-7) [facility] blood nucleated erythrocyte count (count/volume) 2019-08-25 02:07:00 Test Item Value Reference Range Interpretation Comments Nucleated Red Blood Cells # 0.00 10*3/uL (test code = 771-6) [id number] 02:07:00 Test Item Value Reference Range Interpretation Comments Manual Differential (test code = Not Ind 8265-1) [facility] BLOOD [id number] 22:40:00 Test Item Value Reference Range Interpretation Comments WHOLE BLOOD GLUCOSE 316 MG/DL 70-99 H Fastin g glucose (test code = POC GLU) normal <100 MG/DL- [employer] [place] [employer] [facility] [employer] recommend ation URINE DRUG [id number] 19:12:00 Test Item Value Reference Range Interpretation [...] prelimenary and confirmation re sults will follow. [id number] 17:27:00 Test Item Value Reference Range Interpretation [...] (test code = UAMICRO) NO WHOLE BLOOD [id number] 17:25:00 Test Item Value Reference Range Interpretation Comments WHOLE BLOOD GLUCOSE 227 MG/DL 70-99 H Fastin g glucose (test code = POC GLU) normal <100 MG/DL- [employer] [place] [employer] recommend ation [id number] 15:57:00 Test Item Value Reference Range Interpretation [...] intended for no n medical purpose s. [id number] 15:06:00 Test Item Value Reference Range Interpretation [...] glucose = GLUCOSE) normal <100 MG/ DL- [employer] recommendation* * CALCIUM (test [...] mL/min/1.73m2 mL/min/1.73m2 is considered norm al. ACETAMINOPHEN [id number] 15:05:00 Test Item Value Reference Range Interpretation Comments ACETAMIN (test code = <10 UG/ML 10-30 Therap utic range is ACETAMIN) 10-30 ug/mL Tox ic range is >200 ug/mL [id number] 15:05:00 Test Item Value Reference Range Interpretation Comments SALICYLA (test code <10.0 mg/L IN TERPRETIVE DATA = SALICYLA) Therapeut ic: <200 mg/L Toxic: >30 0 mg/L Lethal: >600 mg /L Updated: 2009 CHEST 1 VIEW [id number] 14:15:[address] [id number] IMAGING REPORTPatient Name: Arcadio FUENTES of Service: [id number]: 43 Sex: M Order #: [id number] [facility] 1975 [facility] Number: [id number] Record Number: [id number] Hospital Number: [id number] Physician: HERBER QUICK TANOrdering Physician: ADDIE GENAO 1 VIEW PORTABLE 08/21/2019 2:02 PM:History: Possible aspiration pneumonia. Intoxication with nausea andvomiting.Comp arison: None.Technique: 1 view chestFindings:The cardiomediastinal silhouette is normal. The lungsare clear withoutinfiltrate, effusion, or pneumothorax. The bones are intact.Impression:No acute cardiopulmonary process.Electronically Signed By: Monse Blank M.D., 08/21/2019 2:13 PMLegally authenticated by LUCY SHEA 2019-08-21 14:13:17WHOLE BLOOD [id number] 11:30:00 Test Item Value Reference Range Interpretation Comments WHOLE BLOOD GLUCOSE 175 MG/DL 70-99 H Fastin g glucose (test code = POC GLU) normal <100 MG/DL- [employer] [place] [employer] recommend ation WHOLE BLOOD [id number] 05:55:00 Test Item Value Reference Range Interpretation Comments WHOLE BLOOD GLUCOSE 178 MG/DL 70-99 H Fastin g glucose (test code = POC GLU) normal <100 MG/DL- [employer] [place] [employer] recommend ation WHOLE BLOOD [id number] 19:45:00 Test Item Value Reference Range Interpretation Comments WHOLE BLOOD GLUCOSE 152 MG/DL 70-99 H Fastin g glucose (test code = POC GLU) normal <100 MG/DL- [employer] [place] [employer] recommend ation WHOLE BLOOD [id number] 16:40:00 Test Item Value Reference Range Interpretation Comments WHOLE BLOOD GLUCOSE 175 MG/DL 70-99 H Fastin g glucose (test code = POC GLU) normal <100 MG/DL- [employer] [place] [employer] recommend ation WHOLE BLOOD [id number] 12:00:00 Test Item Value Reference Range Interpretation Comments WHOLE BLOOD GLUCOSE 280 MG/DL 70-99 H Fastin g glucose (test code = POC GLU) normal <100 MG/DL- [employer] [place] [employer] recommend ation WHOLE BLOOD [id number] 06:20:00 Test Item Value Reference Range Interpretation Comments WHOLE BLOOD GLUCOSE 156 MG/DL 70-99 H Fastin g glucose (test code = POC GLU) normal <100 MG/DL- [employer] [place] [employer] recommend ation WHOLE BLOOD [id number] 04:30:00 Test Item Value Reference Range Interpretation Comments WHOLE BLOOD GLUCOSE 187 MG/DL 70-99 H Fastin g glucose (test code = POC GLU) normal <100 MG/DL- [employer] [place] [employer] recommend ation VALPROIC [id number] 18:36:00 Test Item Value Reference Range Interpretation Comments VALP (test code = VALP) 94 UG/ML 50-100 WHOLE BLOOD [id number] 16:35:00 Test Item Value Reference Range Interpretation Comments WHOLE BLOOD GLUCOSE 192 MG/DL 70-99 H Fastin g glucose (test code = POC GLU) normal <100 MG/DL- [employer] [place] [employer] recommend ation WHOLE BLOOD [id number] 11:30:00 Test Item Value Reference Range Interpretation Comments WHOLE BLOOD GLUCOSE 196 MG/DL 70-99 H Fastin g glucose (test code = POC GLU) normal <100 MG/DL- [employer] recommend ation WHOLE BLOOD [id number] 07:00:00 Test Item Value Reference Range Interpretation Comments WHOLE BLOOD GLUCOSE 226 MG/DL 70-99 H Fastin g glucose (test code = POC GLU) normal <100 MG/DL- [employer] recommend ation WHOLE BLOOD [id number] 19:35:00 Test Item Value Reference Range Interpretation Comments WHOLE BLOOD GLUCOSE 117 MG/DL 70-99 H Fastin g glucose (test code = POC GLU) normal <100 MG/DL- [employer] recommend ation WHOLE BLOOD [id number] 16:15:00 Test Item Value Reference Range Interpretation Comments WHOLE BLOOD GLUCOSE 224 MG/DL 70-99 Fastin g glucose (test code = POC GLU) normal <100 MG/DL- [employer] recommend ation WHOLE BLOOD [id number] 12:15:00 Test Item Value Reference Range Interpretation Comments WHOLE BLOOD GLUCOSE 232 MG/DL 70-99 Fastin g glucose (test code = POC GLU) normal <100 MG/DL- [employer] recommend ation WHOLE BLOOD [id number] 06:35:00 Test Item Value Reference Range Interpretation Comments WHOLE BLOOD GLUCOSE 212 MG/DL 70-99 H Fastin g glucose (test code = POC GLU) normal <100 MG/DL- [employer] recommend ation WHOLE BLOOD [id number] 19:30:00 Test Item Value Reference Range Interpretation Comments WHOLE BLOOD GLUCOSE 96 MG/DL 70-99 Fastin g glucose (test code = POC GLU) normal <100 MG/DL- [employer] recommendation* * WHOLE BLOOD [id number] 16:15:00 Test Item Value Reference Range Interpretation Comments WHOLE BLOOD GLUCOSE 172 MG/DL 70-99 Fastin g glucose (test code = POC GLU) normal <100 MG/DL- [employer] recommend ation WHOLE BLOOD [id number] 11:25:00 Test Item Value Reference Range Interpretation Comments WHOLE BLOOD GLUCOSE 124 MG/DL 70-99 H Fastin g glucose (test code = POC GLU) normal <100 MG/DL- [employer] [place] [employer] recommend ation WHOLE BLOOD [id number] 11:25:00 Test Item Value Reference Range Interpretation Comments WHOLE BLOOD GLUCOSE 283 MG/DL 70-99 H Fastin g glucose (test code = POC GLU) normal <100 MG/DL- [employer] recommend ation WHOLE BLOOD [id number] 03:40:00 Test Item Value Reference Range Interpretation Comments WHOLE BLOOD GLUCOSE 119 MG/DL 70-99 H Fastin g glucose (test code = POC GLU) normal <100 MG/DL- [employer] recommend ation WHOLE BLOOD [id number] 16:20:00 Test Item Value Reference Range Interpretation Comments WHOLE BLOOD GLUCOSE 191 MG/DL 70-99 Fastin g glucose (test code = POC GLU) normal <100 MG/DL- [employer] recommend ation WHOLE BLOOD [id number] 11:30:00 Test Item Value Reference Range Interpretation Comments WHOLE BLOOD GLUCOSE 155 MG/DL 70-99 Fastin g glucose (test code = POC GLU) normal <100 MG/DL- [employer] recommend ation WHOLE BLOOD [id number] 06:25:00 Test Item Value Reference Range Interpretation Comments WHOLE BLOOD GLUCOSE 217 MG/DL 70-99 H Fastin g glucose (test code = POC GLU) normal <100 MG/DL- [employer] recommend ation WHOLE BLOOD [id number] 06:25:00 Test Item Value Reference Range Interpretation Comments WHOLE BLOOD GLUCOSE 161 MG/DL 70-99 H Fastin g glucose (test code = POC GLU) normal <100 MG/DL- [employer] recommend ation WHOLE BLOOD [id number] 06:25:00 Test Item Value Reference Range Interpretation Comments WHOLE BLOOD GLUCOSE 223 MG/DL 70-99 H Fastin g glucose (test code = POC GLU) normal <100 MG/DL- [employer] recommend ation WHOLE BLOOD [id number] 11:40:00 Test Item Value Reference Range Interpretation Comments WHOLE BLOOD GLUCOSE 181 MG/DL 70-99 H Fastin g glucose (test code = POC GLU) normal <100 MG/DL- [employer] recommend ation WHOLE BLOOD [id number] 05:55:00 Test Item Value Reference Range Interpretation Comments WHOLE BLOOD GLUCOSE 292 MG/DL 70-99 H Fastin g glucose (test code = POC GLU) normal <100 MG/DL- [employer] recommend ation WHOLE BLOOD [id number] 19:25:00 Test Item Value Reference Range Interpretation Comments WHOLE BLOOD GLUCOSE 84 MG/DL 70-99 Fastin g glucose (test code = POC GLU) normal <100 MG/DL- [employer] recommendation* * WHOLE BLOOD [id number] 16:10:00 Test Item Value Reference Range Interpretation Comments WHOLE BLOOD GLUCOSE 348 MG/DL 70-99 H Fastin g glucose (test code = POC GLU) normal <100 MG/DL- [employer] recommend ation WHOLE BLOOD [id number] 11:20:00 Test Item Value Reference Range Interpretation Comments WHOLE BLOOD GLUCOSE 282 MG/DL 70-99 Fastin g glucose (test code = POC GLU) normal <100 MG/DL- [employer] recommend ation BLOOD [id number] 07:53:00 Test Item Value Reference Range Interpretation Comments Report Text (test [facility] 2019-07-26 1127 code = Report Text) Report Text7 (test BLOOD CULTURES HELD FOR code = Report 5 DAYS BEFORE FINAL Text7) Report Text8 (test code = Report Text8) Report Text9 (test [employer] code = Report MICROBIOLOGY SUGGESTS THAT Text9) Report Text10 (test MOST CASES OF BACTEREMIA code = Report ARE DETECTED BY USING Text10) Report Text11 (test THREE SETS OF SEPARATELY code = Report COLLECTED BLOOD CULTURES. Text11) Report Text12 (test [facility] 2019-07-26 1128 code = Report Text12) Report [...] code = Report Text17) Report Text18 (test [facility] 2019-07-26 1129 code = Report Text18) Report Text19 (test COLLECTION SITE code = Report UNSPECIFIED Text19) Report Text20 (test [facility] 2019-07-27 645 code = Report Text20) Report [...] FINAL REPORT code = Report Text30) BLOOD [id number] 07:53:00 Test Item Value Reference Range Interpretation Comments Report Text (test [facility] 2019-07-26 1127 code = Report Text) Report Text7 (test BLOOD CULTURES HELD FOR code = Report 5 DAYS BEFORE FINAL Text7) Report Text8 (test code = Report Text8) Report Text9 (test [employer] code = Report MICROBIOLOGY SUGGESTS THAT Text9) Report Text10 (test MOST CASES OF BACTEREMIA code = Report ARE DETECTED BY USING Text10) Report Text11 (test THREE SETS OF SEPARATELY code = Report COLLECTED BLOOD CULTURES. Text11) Report Text12 (test [facility] 2019-07-26 1128 code = Report Text12) Report [...] code = Report Text17) Report Text18 (test [facility] 2019-07-26 1121 code = Report Text18) Report Text19 (test COLLECTION SITE code = Report UNSPECIFIED Text19) Report Text20 (test [facility] 2019-07-27 645 code = Report Text20) Report [...] code = Report Text30) HEPATITIS C ANTIBODY [id number] 19:39:00 Test Item Value Reference Range Interpretation [...] confirmation re sults will follow. URINE DRUG [id number] 18:14:00 Test Item Value Reference Range Interpretation [...] intended for no n medical purpose s. [id number] 18:14:00 Test Item Value Reference Range Interpretation [...] glucose = GLUCOSE) normal <100 MG/ DL- [employer] recommendation* * CALCIUM (test [...] mL/min/1.73m2 mL/min/1.73m2 is considered norm al. CREATINE [id number] 18:14:00 Test Item Value Reference Range Interpretation Comments CK (test code = CK) 545 U/L 55-170 H [id number] 17:51:00 Test Item Value Reference Range Interpretation [...] 1.000-1.025 UAMICRO (test code = UAMICRO) NO [id number] 17:40:00 Test Item Value Reference Range Interpretation [...] 5.2 K/UL 1.2-7.2 = NEUT) Creatine kinase ser/[id number] 00:48:00 Test Item Value Reference Range Interpretation Comments Total Creatine Kinase (test code = 854 U/L 7-6) [facility] epithelial cell count by microscopy (number/high power field)2019-07-29 20:33:00 Test Item Value Reference Range Interpretation Comments Urine Epithelial Cells (test None Seen /[HPF] code = 5787-7) [facility] crystal count by microscopy (number/high power field)2019-07-29 20:33:00 Test Item Value Reference Range Interpretation Comments Urine Crystals (test code = None Seen /[HPF] 98223-6) [facility] sediment bacteria count by microscopy (number/high power field)2019-07-29 20:33:00 Test Item Value Reference Range Interpretation Comments Urine Bacteria (test code = None Seen /[HPF] 5769-5) [facility] casts count by microscopy (number/low power field)2019-07-29 20:33:00 Test Item Value Reference Range Interpretation Comments Urine Casts (test code = Present /[LPF] 9842-6) [facility] sediment hyaline cast count by microscopy (number/low power field)2019-07-29 20:33:00 Test Item Value Reference Range Interpretation Comments Urine Hyaline Casts (test code = 0-1 /[LPF] 5796-8) [facility]oth[facility] detection in urine sediment by light microscopy 2019-07-29 20:33:00 Test Item Value Reference Range Interpretation Comments Urine Yeast (test code = None Seen /[HPF] 03607-5) [facility] 20:33:00 Test Item Value Reference Range Interpretation Comments Urinalysis Comment (test code = 8262-8) * [facility] 20:33:00 Test Item Value Reference Range Interpretation Comments Urine Culture Indicated (test code = Not Ind 8264-4) [facility] methamphetamine [id number] 20:33:00 Test Item Value Reference Range Interpretation Comments Urine Methamphetamines Screen Negative ng/mL (test code = 78598-7) [facility] propoxyphene [facility] [id number] 20:33:00 Test Item Value Reference Range Interpretation Comments Urine Propoxyphene Screen Negative ng/mL (test code = 15100-4) [facility] amphetamines detection by screening [id number] 20:33:00 Test Item Value Reference Range Interpretation Comments Urine Amphetamines Screen Negative ng/mL (test code = 48568-0) [facility] buprenorphine screen with reflex confirmation 2019-07-29 20:33:00 Test Item Value Reference Range Interpretation Comments Urine Buprenorphine (test code Negative ng/mL = 3414-0) [facility] barbiturates detection by screening [id number] 20:33:00 Test Item Value Reference Range Interpretation Comments Urine Barbiturates Screen Negative ng/mL (test code = 76672-4) [facility] benzodiazepines detection by screening method 2019-07-29 20:33:00 Test Item Value Reference Range Interpretation Comments Urine Benzodiazepines Screen Negative ng/mL (test code = 42215-1) [facility] benzoylecgonine detection by screening method 2019-07-29 20:33:00 Test Item Value Reference Range Interpretation Comments Urine Cocaine Screen (test Negative ng/mL code = 58219-1) [facility] methadone [id number] 20:33:00 Test Item Value Reference Range Interpretation Comments Urine Methadone, Qualitative Negative ng/mL (test code = 58621-8) [facility] opiates screening [id number] 20:33:00 Test Item Value Reference Range Interpretation Comments Urine Opiates Screen (test Negative ng/mL code = 86634-7) [facility] phencyclidine detection by screening method 2019-07-29 20:33:00 Test Item Value Reference Range Interpretation Comments Urine Phencyclidine Screen Negative ng/mL (test code = 20934-6) [facility] cannabinoids detection by screening [id number] 20:33:00 Test Item Value Reference Range Interpretation Comments Urine Cannabinoids (test code Negative ng/mL = 85939-5) [facility] urine tricyclic antidepressants detection 2019-07-29 20:33:00 Test Item Value Reference Range Interpretation Comments Ur Tricyclic Antidepressants Negative ng/mL Screen (test code = 03855-3) [facility] oxycodone detection by screening [id number] 20:33:00 Test Item Value Reference Range Interpretation Comments Urine Oxycodone Screen (test Negative ng/mL code = 02647-3) [facility] ElizabethSpecific gravity of Urine by Automated test strip 2019-07-29 20:33:00 Test Item Value Reference Range Interpretation Comments Urine Specific [place] (test code = 1.006 21052-1) [facility] pH measurement by automated test [id number] 20:33:00 Test Item Value Reference Range Interpretation Comments Urine pH (test code = 62217-4) 6.[address] ElizabethUrine drug screen comment [id number] 20:33:00 Test Item Value Reference Range Interpretation Comments Urine Drug Screen Comment (test code See Note = 86232-7) [facility] methamphetamine [id number] 20:33:00 Test Item Value Reference Range Interpretation Comments Urine Methamphetamines Screen Negative ng/mL (test code = 24841-0) [facility] propoxyphene screening [id number] 20:33:00 Test Item Value Reference Range Interpretation Comments Urine Propoxyphene Screen Negative ng/mL (test code = 13622-5) [facility] amphetamines detection by screening [id number] 20:33:00 Test Item Value Reference Range Interpretation Comments Urine Amphetamines Screen Negative ng/mL (test code = 42112-5) [facility] buprenorphine screen with reflex confirmation 2019-07-29 20:33:00 Test Item Value Reference Range Interpretation Comments Urine Buprenorphine (test code Negative ng/mL = 3414-0) [facility] barbiturates detection by screening [id number] 20:33:00 Test Item Value Reference Range Interpretation Comments Urine Barbiturates Screen Negative ng/mL (test code = 11325-0) [facility] benzodiazepines detection by screening method 2019-07-29 20:33:00 Test Item Value Reference Range Interpretation Comments Urine Benzodiazepines Screen Negative ng/mL (test code = 86032-0) [facility] benzoylecgonine detection by screening method 2019-07-29 20:33:00 Test Item Value Reference Range Interpretation Comments Urine Cocaine Screen (test Negative ng/mL code = 17194-4) [facility] methadone [id number] 20:33:00 Test Item Value Reference Range Interpretation Comments Urine Methadone, Qualitative Negative ng/mL (test code = 19869-7) [facility]rine opiates screening [id number] 20:33:00 Test Item Value Reference Range Interpretation Comments Urine Opiates Screen (test Negative ng/mL code = 27883-5) [facility] phencyclidine detection by screening method 2019-07-29 20:33:00 Test Item Value Reference Range Interpretation Comments Urine Phencyclidine Screen Negative ng/mL (test code = 00742-1) [facility] cannabinoids detection by screening [id number] 20:33:00 Test Item Value Reference Range Interpretation Comments Urine Cannabinoids (test code Negative ng/mL = 46250-8) [facility]Scre[facility] urine tricyclic antidepressants detection 2019-07-29 20:33:00 Test Item Value Reference Range Interpretation Comments Ur Tricyclic Antidepressants Negative ng/mL Screen (test code = 29745-9) [facility] oxycodone detection by screening [id number] 20:33:00 Test Item Value Reference Range Interpretation Comments Urine Oxycodone Screen (test Negative ng/mL code = 77451-9) KASH Webberpecific gravity of Urine by Automated test strip 2019-07-29 20:33:00 Test Item Value Reference Range Interpretation Comments Urine Specific [place] (test code = 1.006 45105-0) [facility] AnamikaUrine pH measurement by automated test [id number] 20:33:00 Test Item Value Reference Range Interpretation Comments Urine pH (test code = 11680-3) 6.[address] [facility] JesusbethUrine drug screen comment [id number] 20:33:00 Test Item Value Reference Range Interpretation Comments Urine Drug Screen Comment (test code See Note = 10452-4) [facility] JesusbethAutomated blood leukocyte count (number/volume)2019-07-29 20:33:00 Test Item Value Reference Range Interpretation Comments White Blood Count (test code = 7.5 10*3/uL 6690-2) [facility] ElifunmibethBlood erythrocytes automated count (number/volume) 2019-07-29 20:33:00 Test Item Value Reference Range Interpretation Comments Red Blood Count (test code = 4.27 10*6/uL 789-8) [facility] JesusbenilesBlood hemoglobin measurement (mass/volume)2019-07-29 20:33:00 Test Item Value Reference Range Interpretation Comments Hemoglobin (test code = 718-7) 13.6 g/dL [facility] RominazabenilesAutomated blood hematocrit (volume fraction)2019-07-29 20:33:00 Test Item Value Reference Range Interpretation Comments Hematocrit (test code = 4544-3) 38.4 % [facility] RominazabethAutomated erythrocyte mean corpuscular volume (MCV) orusoxdcqnc7574-80-73 20:33:00 Test Item Value Reference Range Interpretation Comments Mean Corpuscular Volume (test code = 90 fL 787-2) [facility] ElizabethAutomated erythrocyte mean corpuscular hemoglobin (mass per erythrocyte)2019-07-29 20:33:00 Test Item Value Reference Range Interpretation Comments Mean Corpuscular Hemoglobin (test 31.9 pg code = 785-6) [facility] ElizabethAutomated erythrocyte mean corpuscular hemoglobin concentration measurement (mass/[id number] 20:33:00 Test Item Value Reference Range Interpretation Comments Mean Corpuscular Hemoglobin Concent 35.4 g/dL (test code = 786-4) [facility] ElizabethAutomated erythrocyte distribution width [id number] 20:33:00 Test Item Value Reference Range Interpretation Comments Red Cell Distribution Width (test code 12.0 % = 788-0) [facility] ElizabethAutomated blood platelet count (count/volume)2019-07-29 20:33:00 Test Item Value Reference Range Interpretation Comments Platelet Count (test code = 292 10*3/uL 777-3) [facility] ElizabethAutomated blood platelet mean volume klcwzqenymy5397-60-17 20:33:00 Test Item Value Reference Range Interpretation Comments Mean Platelet Volume (test code = 9.9 38783-7) [facility] ElizabethAutomated blood neutrophil count as percentage of total eysxmvwhef9480-22-31 20:33:00 Test Item Value Reference Range Interpretation Comments Neutrophils (%) (Auto) (test code = 51 % 770-8) [facility] ElizabethAutomated blood immature granulocyte count as percentage of total isntfzrazt2974-21-70 20:33:00 Test Item Value Reference Range Interpretation Comments Immature Granulocyte % (Auto) (test 1 % code = 64052-9) [facility] ElizabethAutomated blood lymphocyte count as percentage of total mkqsnrlntu3245-17-18 20:33:00 Test Item Value Reference Range Interpretation Comments Lymphocytes (%) (Auto) (test code = 33 % 736-9) [facility] ElizabethAutomated blood monocyte count as percentage of total yuurdgstgs4418-10-57 20:33:00 Test Item Value Reference Range Interpretation Comments Monocytes (%) (Auto) (test code = 10 % 5905-5) [facility] ElizabethAutomated blood eosinophil count as percentage of total ibclqetnpb0781-93-41 20:33:00 Test Item Value Reference Range Interpretation Comments Eosinophils (%) (Auto) (test code = 4 % 713-8) [facility]. [facility] HealthzabethAutomated blood basophil count as percentage of total ljhpwsiyii7686-50-93 20:33:00 Test Item Value Reference Range Interpretation Comments Basophils (%) (Auto) (test code = 1 % 706-2) [facility] nucleated erythrocyte count as percentage of total ckubmmlbae0637-87-66 20:33:00 Test Item Value Reference Range Interpretation Comments Nucleated Red Blood Cells % (test code 0.0 % = 55939-8) [facility]. PriceAutomated blood neutrophil count (number/volume)2019-07-29 20:33:00 Test Item Value Reference Range Interpretation Comments Neutrophils # (Auto) (test code = 3.8 10*3/uL 751-8) [facility] Center[facility] immature granulocyte count as percentage of total xmmvweeeot7220-20-87 20:33:00 Test Item Value Reference Range Interpretation Comments Immature Granulocyte # (Auto) 0.0 10*3/uL (test code = 00854-7) [facility]. PriceAutomated blood lymphocyte count (number/volume)2019-07-29 20:33:00 Test Item Value Reference Range Interpretation Comments Lymphocytes # (Auto) (test code = 2.5 10*3/uL 731-0) [facility]. [facility] monocytes automated count (number/volume)2019-07-29 20:33:00 Test Item Value Reference Range Interpretation Comments Monocytes # (Auto) (test code = 0.8 10*3/uL 742-7) [facility]. PriceAutomated blood eosinophil [id number] 20:33:00 Test Item Value Reference Range Interpretation Comments Eosinophils # (Auto) (test code = 0.3 10*3/uL 711-2) [facility]. [place] blood basophil count (number/volume)2019-07-29 20:33:00 Test Item Value Reference Range Interpretation Comments Basophils # (Auto) (test code = 0.1 10*3/uL 704-7) [facility]. [place]bethAutomated blood nucleated erythrocyte count (count/volume) 2019-07-29 20:33:00 Test Item Value Reference Range Interpretation Comments Nucleated Red Blood Cells # 0.00 10*3/uL (test code = 771-6) [facility] JesusbethService comment [id number] 20:33:00 Test Item Value Reference Range Interpretation Comments Manual Differential (test code = Not Ind 8265-1) [facility] AnamikaUrinalysis specimen collection [id number] 20:33:00 Test Item Value Reference Range Interpretation Comments Urine Source (test code = 39661-8) URINE [facility] JesusbethColor of Urine by Wssp6612-02-26 20:33:00 Test Item Value Reference Range Interpretation Comments Urine Color (test code = 42313-8) Colorless [facility] PollothUrine clarity qgtynbttthzrj3814-14-82 20:33:00 Test Item Value Reference Range Interpretation Comments Urine Appearance (test code = 23609-4) Clear [facility] StWilbur WillsonUrine pH measurement by automated test [id number] 20:33:00 Test Item Value Reference Range Interpretation Comments Urine pH (test code = 71819-5) 6.[address] AbadthSpecific gravity of Urine by Automated test strip 2019-07-29 20:33:00 Test Item Value Reference Range Interpretation Comments Urine Specific [place] (test code = 1.006 95433-2) [facility] JesusbethUrine protein measurement by automated test strip (mass/volume)2019-07-29 20:33:00 Test Item Value Reference Range Interpretation Comments Urine Protein (test code = Negative mg/dL 19087-5) [facility] JesusbethUrine glucose measurement by automated test strip (mass/volume)2019-07-29 20:33:00 Test Item Value Reference Range Interpretation Comments Urine Glucose (UA) (test code = >1000 mg/dL 96610-5) [facility] ElizabethUrine ketones measurement by automated test strip (mass/volume)2019-07-29 20:33:00 Test Item Value Reference Range Interpretation Comments Urine Ketones (test code = Negative mg/dL 13129-9) [facility] JesusbethUrine erythrocytes count by automated test strip (number/volume)2019-07-29 20:33:00 Test Item Value Reference Range Interpretation Comments Urine Occult Blood (test code = Negative 98509-2) [facility] AnamikaUrine nitrite detection by automated test [id number] 20:33:00 Test Item Value Reference Range Interpretation Comments Urine Nitrite (test code = 02896-2) Negative [facility] PollothUrine total bilirubin measurement by automated test strip (mass/volume)2019-07-29 20:33:00 Test Item Value Reference Range Interpretation Comments Urine Bilirubin (test code = Negative mg/dL 58573-6) [facility] PollothUrine urobilinogen measurement by automated test strip (mass/volume)2019-07-29 20:33:00 Test Item Value Reference Range Interpretation Comments Urine Urobilinogen (test code Negative mg/dL = 99438-9) [facility] PolloUrine leukocytes count by automated test strip (number/volume)2019-07-29 20:33:00 Test Item Value Reference Range Interpretation Comments Urine Leukocyte Esterase Negative {Janie}/uL (test code = 40998-2) [facility] PolloMicroscopic examination of [id number] 20:33:00 Test Item Value Reference Range Interpretation Comments Microscopic Urinalysis (T) (test code = ----- 63018-7) [facility] erythrocyte count by microscopy (number/high power field)2019-07-29 20:33:00 Test Item Value Reference Range Interpretation Comments Urine RBC (test code = 48191-6) 0-2 /[HPF] [facility] sediment leukocyte count by microscopy (number/high power field)2019-07-29 20:33:00 Test Item Value Reference Range Interpretation Comments Urine WBC (test code = 5821-4) 0-5 /[HPF] [facility] ElifunmibethUrine sediment epithelial cell count by microscopy (number/high power field)2019-07-29 20:33:00 Test Item Value Reference Range Interpretation Comments Urine Epithelial Cells (test None Seen /[HPF] code = 5787-7) [facility] PollothUrine sediment crystal count by microscopy (number/high power field)2019-07-29 20:33:00 Test Item Value Reference Range Interpretation Comments Urine Crystals (test code = None Seen /[HPF] 48322-3) [facility] EliLacie sediment bacteria count by microscopy (number/high power field)2019-07-29 20:33:00 Test Item Value Reference Range Interpretation Comments Urine Bacteria (test code = None Seen /[HPF] 5769-5) [facility] sediment casts count by microscopy (number/low power field)2019-07-29 20:33:00 Test Item Value Reference Range Interpretation Comments Urine Casts (test code = Present /[LPF] 9842-6) [facility] AnamikaUrine sediment hyaline cast count by microscopy (number/low power field)2019-07-29 20:33:00 Test Item Value Reference Range Interpretation Comments Urine Hyaline Casts (test code = 0-1 /[LPF] 5796-8) KASH Romero. PollothYeast detection in urine sediment by light microscopy 2019-07-29 20:33:00 Test Item Value Reference Range Interpretation Comments Urine Yeast (test code = None Seen /[HPF] 51426-6) [facility] JesusbeBellaervice comment 20:33:00 Test Item Value Reference Range Interpretation Comments Urinalysis Comment (test code = 8262-8) * [facility] JesusbeBellaervice comment 20:33:00 Test Item Value Reference Range Interpretation Comments Urine Culture Indicated (test code = Not Ind 8264-4) [facility] JesusbethSerum or plasma sodium measurement (moles/volume) 2019-07-29 20:33:00 [...] (test code = 100 mmol/L 2075-0) [facility] ElizabethSerum or plasma total carbon dioxide measurement (moles/volume)2019-07-29 20:33:00 Test Item Value Reference Range Interpretation Comments Carbon Dioxide Level (test code = 25 mmol/L 2027-12) [facility] ElizabethSerum or plasma anion gap determination (moles/volume) 2019-07-29 20:33:00 Test Item Value Reference Range Interpretation Comments Anion Gap (test code = 57546-0) [address] ElizabethSerum or plasma urea nitrogen measurement (mass/volume) 2019-07-29 20:33:00 Test Item Value Reference Range Interpretation Comments Blood Urea Nitrogen (test code = 8 mg/dL 3094-0) [facility] ElifunmibethSerum or plasma creatinine measurement (mass/volume) 2019-07-29 20:33:00 Test Item Value Reference Range Interpretation Comments Creatinine (test code = 2160-0) 1.0 mg/dL [facility] ElizabethGFR estimate [id number] 20:33:00 Test Item Value Reference Range Interpretation Comments Estimat Glomerular Filtration Rate 87 (test code = 58095-3) [facility] ElizabethSerum or plasma glucose measurement (mass/volume) 2019-07-29 20:33:00 Test Item Value Reference Range Interpretation Comments Glucose Level (test code = 2345-7) 292 mg/dL [facility] JesusbethSerum or plasma calcium measurement (mass/volume) 2019-07-29 20:33:00 Test Item Value Reference Range Interpretation Comments Calcium Level (test code = 57763-0) 9.3 mg/dL [facility] ElizabethSerum or plasma total bilirubin measurement (mass/volume) 2019-07-29 20:33:00 Test Item Value Reference Range Interpretation Comments Total Bilirubin (test code = 0.2 mg/dL 1974-05) [facility] JesusbethSerum or plasma aspartate aminotransferase measurement (enzymatic activity/volume)2019-07-29 20:33:00 Test Item Value Reference Range Interpretation Comments Aspartate Amino Transf (AST/SGOT) 32 U/L (test code = 1920-8) [facility] ElizabethSerum or plasma alanine aminotransferase measurement (enzymatic activity/volume)2019-07-29 20:33:00 Test Item Value Reference Range Interpretation Comments Alanine Aminotransferase (ALT/SGPT) 30 U/L (test code = 1742-6) [facility] ElizabethSerum or plasma protein measurement (mass/volume) 2019-07-29 20:33:00 Test Item Value Reference Range Interpretation Comments Total Protein (test code = 2885-2) 7.7 g/dL [facility] or plasma albumin measurement (mass/volume) 2019-07-29 20:33:00 Test Item Value Reference Range Interpretation Comments Albumin (test code = 1751-7) 4.3 g/dL [facility]ererum or plasma alkaline phosphatase measurement (enzymatic activity/volume)2019-07-29 20:33:00 Test Item Value Reference Range Interpretation Comments Alkaline Phosphatase (test code = 83 U/L 6768-6) [facility]. [facility]ererum or plasma free thyroxine (FT4) measurement (mass/volume)2019-07-29 20:33:00 Test Item Value Reference Range Interpretation Comments Free Thyroxine (test code = 0.79 ng/dL 3024-7) [facility]. [facility]rum or plasma thyrotropin measurement with detection limit of 0.005 mIU/L or less (units/volume)2019-07-29 20:33:00 Test Item Value Reference Range Interpretation Comments Thyroid Stimulating Hormone 1.27 u[iU]/mL (TSH) (test code = 19790-2) [facility]. [facility]rum or plasma triiodothyronine (T3) measurement (mass/volume)2019-07-29 20:33:00 Test Item Value Reference Range Interpretation Comments Total Triiodothyronine (test code 0.88 ng/mL = 3053-6) [facility]. [facility]rum or plasma acetaminophen measurement (mass/volume) 2019-07-29 20:33:00 Test Item Value Reference Range Interpretation Comments Acetaminophen Level (test code = < 0.6 ug/mL 3298-7) [facility]vnid6049[facility]78-49 20:33:00 Test Item Value Reference Range Interpretation Comments Salicylates Level (test code = < 5.0 mg/dL 4024-6) [facility]. [facility]rum or plasma ethanol measurement (mass/volume) 2019-07-29 20:33:00 Test Item Value Reference Range Interpretation Comments Ethyl Alcohol Level (test code = < 10 mg/dL 5643-2) [facility] [id number] 20:33:00 Test Item Value Reference Range Interpretation Comments Urine Methamphetamines Screen Negative ng/mL (test code = 42771-3) [facility] JesusbethUrine propoxyphene screening [id number] 20:33:00 Test Item Value Reference Range Interpretation Comments Urine Propoxyphene Screen Negative ng/mL (test code = 01769-3) [facility] ElizabethUrine amphetamines detection by screening [id number] 20:33:00 Test Item Value Reference Range Interpretation Comments Urine Amphetamines Screen Negative ng/mL (test code = 88126-9) [facility] JesusbethUrine buprenorphine screen with reflex confirmation 2019-07-29 20:33:00 Test Item Value Reference Range Interpretation Comments Urine Buprenorphine (test code Negative ng/mL = 3414-0) [facility] ElialphonsothUrine barbiturates detection by screening [id number] 20:33:00 Test Item Value Reference Range Interpretation Comments Urine Barbiturates Screen Negative ng/mL (test code = 38906-8) [facility] JesusbethUrine benzodiazepines detection by screening method 2019-07-29 20:33:00 Test Item Value Reference Range Interpretation Comments Urine Benzodiazepines Screen Negative ng/mL (test code = 89876-2) [facility] PolloUrine benzoylecgonine detection by screening method 2019-07-29 20:33:00 Test Item Value Reference Range Interpretation Comments Urine Cocaine Screen (test Negative ng/mL code = 57141-6) [facility] JesusbethUrine methadone [id number] 20:33:00 Test Item Value Reference Range Interpretation Comments Urine Methadone, Qualitative Negative ng/mL (test code = 58963-0) [facility] ElizabethUrine opiates screening [id number] 20:33:00 Test Item Value Reference Range Interpretation Comments Urine Opiates Screen (test Negative ng/mL code = 89024-1) [facility] JesusbethUrine phencyclidine detection by screening method 2019-07-29 20:33:00 Test Item Value Reference Range Interpretation Comments Urine Phencyclidine Screen Negative ng/mL (test code = 44010-9) [facility] JesusbethUrine cannabinoids detection by screening [id number] 20:33:00 Test Item Value Reference Range Interpretation Comments Urine Cannabinoids (test code Negative ng/mL = 45292-8) [facility] ElizabethScreening urine tricyclic antidepressants detection 2019-07-29 20:33:00 Test Item Value Reference Range Interpretation Comments Ur Tricyclic Antidepressants Negative ng/mL Screen (test code = 78946-4) [facility] ElizabethUrine oxycodone detection by screening [id number] 20:33:00 Test Item Value Reference Range Interpretation Comments Urine Oxycodone Screen (test Negative ng/mL code = 24673-6) [facility] ElizabethSpecific gravity of Urine by Automated test strip 2019-07-29 20:33:00 Test Item Value Reference Range Interpretation Comments Urine Specific [place] (test code = 1.006 65884-3) [facility] ElizabethUrine pH measurement by automated test [id number] 20:33:00 Test Item Value Reference Range Interpretation Comments Urine pH (test code = 47849-6) 6.[address] ElizabethUrine drug screen comment [id number] 20:33:00 Test Item Value Reference Range Interpretation Comments Urine Drug Screen Comment (test code See Note = 74306-1) [facility] ElizabethUrinalysis specimen collection [id number] 20:33:00 Test Item Value Reference Range Interpretation Comments Urine Source (test code = 94242-5) URINE [facility] ElizabethColor of Urine by [id number] 20:33:00 Test Item Value Reference Range Interpretation Comments Urine Color (test code = 47164-8) Colorless [facility] ElizabethUrine clarity [id number] 20:33:00 Test Item Value Reference Range Interpretation Comments Urine Appearance (test code = 58745-2) Clear [facility] ElizabethUrine pH measurement by automated test [id number] 20:33:00 Test Item Value Reference Range Interpretation Comments Urine pH (test code = 50920-0) 6.[address] ElizabethSpecific gravity of Urine by Automated test strip 2019-07-29 20:33:00 Test Item Value Reference Range Interpretation Comments Urine Specific [place] (test code = 1.006 26557-8) [facility] ElizabethUrine protein measurement by automated test strip (mass/volume)2019-07-29 20:33:00 Test Item Value Reference Range Interpretation Comments Urine Protein (test code = Negative mg/dL 79511-0) [facility] PollothUrine glucose measurement by automated test strip (mass/volume)2019-07-29 20:33:00 Test Item Value Reference Range Interpretation Comments Urine Glucose (UA) (test code = >1000 mg/dL 11934-9) [facility] PollothUrine ketones measurement by automated test strip (mass/volume)2019-07-29 20:33:00 Test Item Value Reference Range Interpretation Comments Urine Ketones (test code = Negative mg/dL 61965-1) [facility] erythrocytes count by automated test strip (number/volume)2019-07-29 20:33:00 Test Item Value Reference Range Interpretation Comments Urine Occult Blood (test code = Negative 84995-1) KASH Romero. AnamikaUrine nitrite detection by automated test [id number] 20:33:00 Test Item Value Reference Range Interpretation Comments Urine Nitrite (test code = 99253-3) Negative [facility] total bilirubin measurement by automated test strip (mass/volume)2019-07-29 20:33:00 Test Item Value Reference Range Interpretation Comments Urine Bilirubin (test code = Negative mg/dL 89003-1) [facility] AnamikaUrine urobilinogen measurement by automated test strip (mass/volume)2019-07-29 20:33:00 Test Item Value Reference Range Interpretation Comments Urine Urobilinogen (test code Negative mg/dL = 95153-3) [facility] count by automated test strip (number/volume)2019-07-29 20:33:00 Test Item Value Reference Range Interpretation Comments Urine Leukocyte Esterase Negative {Janie}/uL (test code = 64852-0) [facility] PolloMicroscopic examination of [id number] 20:33:00 Test Item Value Reference Range Interpretation Comments Microscopic Urinalysis (T) (test code = ----- 80133-2) [facility] sediment erythrocyte count by microscopy (number/high power field)2019-07-29 20:33:00 Test Item Value Reference Range Interpretation Comments Urine RBC (test code = 31037-0) 0-2 /[HPF] [facility] leukocyte count by microscopy (number/high power field)2019-07-29 20:33:00 Test Item Value Reference Range Interpretation Comments Urine WBC (test code = 5821-4) 0-5 /[HPF] [facility] [id number] 22:32:09 Test Item Value Reference Range Interpretation Comments Glucose POC (test 264 mg/dL 74-106 H POC Glucos e used on code = Glucose POC) critical ly ill patients is considered " off-label use" and has no t been cleared or appr leonel by the FDA. Altern ative testing methods should be considered i f the patient is crit ically ill. WHOLE BLOOD [id number] 19:35:00 Test Item Value Reference Range Interpretation Comments WHOLE BLOOD GLUCOSE 399 MG/DL 70-99 Fastin g glucose (test code = POC GLU) normal <100 MG/DL- [employer] [place] [employer] recommend ation NEG STREP SCRN CONFIRM [id number] 10:23:00 Test Item Value Reference Range Interpretation [...] code = Report REPORT. Text12) WHOLE BLOOD [id number] 06:10:00 Test Item Value Reference Range Interpretation Comments WHOLE BLOOD GLUCOSE 259 MG/DL 70-99 H Fastin g glucose (test code = POC GLU) normal <100 MG/DL- [employer] [place] [employer] recommend ation RPR [id number] 17:40:00 Test Item Value Reference Range Interpretation Comments SCREEN RPR (test NONREACTIVE NONREACTIVE code = SCRN RPR) NR = NON-REACTIVE R = REACTIVE HEPATITIS C ANTIBODY [id number] 16:34:00 Test Item Value Reference Range Interpretation [...] confirmation re sults will follow. WHOLE BLOOD [id number] 11:50:00 Test Item Value Reference Range Interpretation Comments WHOLE BLOOD GLUCOSE 384 MG/DL 70-99 H Fastin g glucose (test code = POC GLU) normal <100 MG/DL- [employer] [place] [employer] recommend ation LIPID [id number] 08:25:00 Test Item Value Reference Range Interpretation [...] 59 MG/DL <100 CALC LDL) THYROID STIMULATION [id number] 08:25:00 Test Item Value Reference Range Interpretation Comments TSH (test code = TSH) 1.17 UIU/ML 0.465-4.68 WHOLE BLOOD [id number] 07:55:00 Test Item Value Reference Range Interpretation Comments WHOLE BLOOD GLUCOSE 328 MG/DL 70-99 Fastin g glucose (test code = POC GLU) normal <100 MG/DL- [facility] recommend ation WHOLE BLOOD [id number] 07:55:00 Test Item Value Reference Range Interpretation Comments WHOLE BLOOD GLUCOSE 240 MG/DL 70-99 Fastin g glucose (test code = POC GLU) normal <100 MG/DL- [facility] recommend ation % HEMOGLOBIN A1C (GLYCATED)2019-07-27 07:52:00 Test Item Value Reference Range Interpretation Comments HEMOGLOBIN A1C (test 10.2 % 0-6 H TH ERAPEUTIC TARGET code = GLYCO-) FOR THE TREAT MENT OF DIABETES M GATO PATIENTS IS < 7 % HBA1C. [facility] DIAB[facility]ES [facility]ARE 2002;25:S33-S49 CREATINE [id number] 18:38:00 Test Item Value Reference Range Interpretation Comments CK (test code = CK) 965 U/L 55-170 H CREATINE [id number] 15:35:00 Test Item Value Reference Range Interpretation Comments CK (test code = CK) 1122 U/L 55-170 H URINE DRUG [id number] 15:27:00 Test Item Value Reference Range Interpretation [...] code = NEGATIVE NEGATIVE BMTPCP) WHOLE BLOOD [id number] 15:10:00 Test Item Value Reference Range Interpretation Comments WHOLE BLOOD GLUCOSE 288 MG/DL 70-99 H Fastin g glucose (test code = POC GLU) normal <100 MG/DL- [facility] recommend ation [id number] 13:28:00 Test Item Value Reference Range Interpretation [...] code = UAMICRO) NO PROTHROMBIN TIME WITH [id number] 13:26:00 Test Item Value Reference Range Interpretation Comments PROTHROMBIN TIME 10.5 SECONDS 10.1-12.7 INR Usual R blaise = 2 (test code = PT) to 3 for pr evention of deep vein thrombosis (DVT ) INR (test code = INR) 0.9 [id number] 13:26:00 Test Item Value Reference Range Interpretation Comments PTT (test code = 29.4 SECONDS 25.0-36.5 HEPARIN THE RAPEUTIC PTT) RANGE 57-92 SEC ONDS D-DIMER, [id number] 13:25:00 Test Item Value Reference Range Interpretation Comments D-DIMER (test 152 ng/mL (FEU) 0-500 VALUES OF Q UANTITATIVE code = DDIMER) D-DIMER LESS THAN 499 ng/mL HAVE BEEN REPORTED TO BE ASSOCIATED WITH A LOW PROBABILITY OF DEEP VEIN THROMBOSIS/PULM ONARYEMB OLISM. THIS BRENDA T ALONE SHOULD NOT BE U SED TO RULE OUT DVT/PE . [id number] 12:15:00 Test Item Value Reference Range Interpretation [...] code 3.6 K/UL 1.2-7.2 = NEUT) C-REACTIVE [id number] 12:14:00 Test Item Value Reference Range Interpretation Comments CRP (test code = CRP) <0.5 mg/dL 0.5-1.0 [id number] 12:14:00 Test Item Value Reference Range Interpretation [...] glucose = GLUCOSE) normal <100 MG/ DL- [facility] recommendation* * CALCIUM (test [...] mL/min/1.73m2 mL/min/1.73m2 is considered norm al. CREATINE [id number] 12:14:00 Test Item Value Reference Range Interpretation Comments CK (test code = CK) 2046 U/L 55-170 H [id number] 12:14:00 Test Item Value Reference Range Interpretation Comments FERRITIN (test code = FERR) 136 NG/ML 18-464 [id number] 12:14:00 Test Item Value Reference Range Interpretation Comments LDH (test code = LDH) 705 U/L 313-618 H BLOOD ALCOHOL (ETOH)2019-07-26 12:14:00 Test Item Value Reference Range Interpretation Comments ALCOHOL BLOOD LEVEL <10 MG/DL 0-10 Results are to be used (test code = ALC BLD) for me dical purposes (treatment) onl y. Not intended for no n medical purpose s. TROPONIN I - [id number] 12:08:00 Test Item Value Reference Range Interpretation Comments TROP-I (test code <0.012 ng/ml 0.012-0.033 = TROP-I) INTERPRETIVE DA TA A TROPONIN OF L ESS THAN 0.034 NG/ML IS CONSIDERED NEGA TIVE A TROPONIN OF 0.0 34 - 0.119 NG/ML IS CONSIDERED COATES ZONE A TROPONIN =/> 0. 120 NG/ML IS CONSIDERED P OSITIVE PROBRAIN NATRIURETIC [id number] 12:08:00 Test Item Value Reference Range Interpretation Comments NT-PROBNP (test code 19 pg/mL Exclusi on for heart = PROBNP) failure for pat ients of all ages is 300 pg/mL. Inclusion for h eart failure for pat ients age <50 is 450 pg/m L; for patients age 50 -75 is 900 pg/mL; for russell ents age >75 is 1800 pg/ mL. GROUP A STREP [id number] 11:25:00 Test Item Value Reference Range Interpretation Comments GROUP A STREP SCREEN NEGATIVE NEGATIVE Cultu re set up to (test code = STREPGRA) confi rm negative Strep Screen STREP A INTERNAL POS PASS PASS CNTRL (test code = STRPAIPC) STREP A LOT # (test code [id number] = STRPALOT) STREP A EXPIRATION DATE 03-30 (test code = STRPAEXP) Culture set up to confirm negative Strep ScreenINFLUENZA [id number] 11:25:00 Test Item Value Reference Range Interpretation Comments FLU A (test code = FLU A) NEGATIVE NEGATIVE FLU B (test code = FLU B) NEGATIVE NEGATIVE FLU INTERNAL POSITIVE CNTRL (test PASS PASS code = FLU IPC) INFLUENZA LOT # (test code = FLULOT) [id number] INFLUENZA EXPIRATION DATE (test code 07-29 = FLUEXP) VENOUS BLOOD [id number] 11:04:00 Test Item Value Reference Range Interpretation [...] MV%METHB) 0.9 % 0.4-1.5 BG LAB VENOUS [id number] 11:04:00 Test Item Value Reference Range Interpretation Comments SITE (test code = SITE) VENOUS SITE BGLACVEN (test code = BGLACVEN) 9.0 mg/dL 6.0-18.0 CT THORAX W/O [id number] 09:23:[address] [id number] IMAGING REPORTPatient Name: Arcadio FUENTES of Service: [id number]: [id number] Sex: M Order #: [id number] Room: [facility]: 1975 X-Ray Number: [id number] Record Number: [id number] Hospital Number: [id number] Physician: FRANK PRESSLEYOrdering Physician: LINDSEY PRESSLEY chest.History: Shortness of breath.Technique: [...] code = GLUBED) 423 mg/dL 70-110 H [id number] 03:00:00 Test Item Value Reference Range Interpretation Comments GLUBED (test code = GLUBED) 287 mg/dL 70-110 H [id number] 03:00:00 Test Item Value Reference Range Interpretation Comments GLUBED (test code = GLUBED) 328 mg/dL 70-110 H [id number] 03:00:00 Test Item Value Reference Range Interpretation Comments GLUBED (test code = GLUBED) 414 mg/dL 70-110 H [id number] 02:59:00 Test Item Value Reference Range Interpretation Comments GLUBED (test code = GLUBED) 276 mg/dL 70-110 H ACETONE [id number] 11:08:00 Test Item Value Reference Range Interpretation Comments ACETONE BLOOD (test code = ACETB) NEGATIVE NEGATIVE DRUGS OF ABUSE SCREEN [id number] 10:47:00 Test Item Value Reference Range Interpretation [...] = [place]) concentrati on: 300 ng/mL URINALYSIS [id number] 10:39:00 Test Item Value Reference Range Interpretation [...] code = TRACE NONE BACU) COMPREHENSIVE METABOLIC [id number] 10:36:00 Test Item Value Reference Range Interpretation [...] 107 Units/L 50.0-136.0 N code = ALKP) [id number] 10:36:00 Test Item Value Reference Range Interpretation Comments ALCOHOL (test code 0.00 gm/dL 0.00-0.00 N ETHYL ALC OHOL VALUES - = ALC) INTERPRETATION: 0.050 GM/DL - NOT INT OXICATED 0.100 GM/DL - INTOXICATED 0.3 50-0.450 GM/DL - SEVEREL Y INTOXICATED 0.5 50 GM/DL- FATAL INTOXICAT ION COMPREHENSIVE METABOLIC [id number] 10:32:00 Test Item Value Reference Range Interpretation [...] TOTAL (test Units/L 50.0-136.0 code = ALKP) [id number] 10:32:00 Test Item Value Reference Range Interpretation Comments ALCOHOL (test code = ALC) gm/dL 0.00-0.00 CBC W/AUTO [id number] 10:23:00 Test Item Value Reference Range Interpretation [...] = BA#) 0.1 K/mm3 0.0-0.2 N URINALYSIS [id number] 10:19:00 Test Item Value Reference Range Interpretation [...] UA BACTERIA (test code = NONE BACU) [id number] 11:41:00 Test Item Value Reference Range Interpretation Comments GLUBED (test code = 125 mg/dL 74-106 H Performe d by certified GLUBED) 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 [facility] [id number] 06:55:00 Test Item Value Reference Range Interpretation Comments GLUBED (test code = 228 mg/dL 74-106 H Performe d by certified GLUBED) 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 [facility] CBC W/O [id number] 03:41:00 Test Item Value Reference Range Interpretation [...] fL 6.7-11.0 N = MPV) CBC W/O [id number] 03:39:00 Test Item Value Reference Range Interpretation [...] code fL 6.7-11.0 = MPV) BASIC METABOLIC [id number] 03:38:00 Test Item Value Reference Range Interpretation [...] GFR) formula.Chronic kidney disease is defined as eith er kidney damageor GFR <60 mL/min/1.73 m2 for >3 months. CREATININE (test code 0.80 mg/dL 0.7-1.3 N = CREAT) BUN/CREATININE RATIO 15.0 10-20 N (test code = BUN/CREA) CALCIUM (test code = 8.7 mg/dL 8.5-10.1 N CA) HEPATIC FUNCTION [id number] 03:38:00 Test Item Value Reference Range Interpretation [...] range due ALKP) to change in reagent. [id number] 03:38:00 Test Item Value Reference Range Interpretation [...] AT AN ADDITIONAL [facility]GE [facility] URINAL[facility]IS [id number] 03:38:00 Test Item Value Reference Range Interpretation [...] Urine Source? Clean CatchDRUGS OF ABUSE SCREEN [id number] 03:38:00 Test Item Value Reference Range Interpretation [...] NEGATIVE <300 ng/mL Urine Source? Clean CatchURINALYSIS [id number] 03:35:00 Test Item Value Reference Range Interpretation [...] Urine Source? Clean CatchDRUGS OF ABUSE SCREEN [id number] 03:35:00 Test Item Value Reference Range Interpretation [...] <300 ng/mL Urine Source? Clean CatchBASIC METABOLIC [id number] 03:29:00 Test Item Value Reference Range Interpretation [...] code = CA) mg/dL 8.5-10.1 HEPATIC FUNCTION [id number] 03:29:00 Test Item Value Reference Range Interpretation [...] TOTAL (test IUnit/L 45-117 code = ALKP) [id number] 03:29:00 Test Item Value Reference Range Interpretation Comments ALCOHOL (test code = ALC) mg/dL 0-3 URINALYSIS [id number] 03:25:00 Test Item Value Reference Range Interpretation [...] Urine Source? Clean CatchDRUGS OF ABUSE SCREEN [id number] 03:25:00 Test Item Value Reference Range Interpretation [...] <300 ng/mL Urine Source? Clean CatchCBC W/AUTO [id number] 09:44:00 Test Item Value Reference Range Interpretation [...] MX#) 0.9 k/mm3 0.1-0.8 H COMPREHENSIVE METABOLIC [id number] 20:24:00 Test Item Value Reference Range Interpretation [...] 118 Units/L 50.0-136.0 N code = ALKP) [id number] 20:24:00 Test Item Value Reference Range Interpretation Comments ALCOHOL (test code 0.02 gm/dL 0.00-0.00 H ETHYL ALC OHOL VALUES - = ALC) INTERPRETATION: 0.050 GM/DL - NOT INT OXICATED 0.100 GM/DL - INTOXICATED 0.3 50-0.450 GM/DL - SEVEREL Y INTOXICATED 0.5 50 GM/DL- FATAL INTOXICAT ION DRUGS OF ABUSE SCREEN [id number] 20:16:00 Test Item Value Reference Range Interpretation [...] [place]) concentrati on: 300 ng/mL COMPREHENSIVE METABOLIC [id number] 20:16:00 Test Item Value Reference Range Interpretation [...] TOTAL (test Units/L 50.0-136.0 code = ALKP) [id number] 20:16:00 Test Item Value Reference Range Interpretation Comments ALCOHOL (test code = ALC) gm/dL 0.00-0.00 CBC W/AUTO [id number] 20:08:00 Test Item Value Reference Range Interpretation [...] code = BA#) 0.1 K/mm3 0.0-0.2 N [id number] 17:49:00 Test Item Value Reference Range Interpretation Comments SODIUM (test code = NA/ABG) 138 MEQ/L 134-147 N [id number] 17:49:00 Test Item Value Reference Range Interpretation Comments POTASSIUM (test code = K/ABG) MEQ/L 3.4-5.0 [id number] 17:49:00 Test Item Value Reference Range Interpretation Comments CHLORIDE (test code = CL/ABG) MEQ/L 100-108 CREATININE [id number] 17:49:00 Test Item Value Reference Range Interpretation Comments CREATININE ABG (test code = CREAABG) mg/dL 0.8-1.3 POC IONIZED [id number] 17:49:00 Test Item Value Reference Range Interpretation Comments POC IONIZED CALCIUM (test code = MMOL/L 1.12-1.32 POCCA) POC [id number] 17:49:00 Test Item Value Reference Range Interpretation Comments POC GLUCOSE (test code = POCGLU) MG/DL 70-110 [id number] 17:49:00 Test Item Value Reference Range Interpretation Comments SODIUM (test code = NA/ABG) 138 MEQ/L 134-147 N [id number] 17:49:00 Test Item Value Reference Range Interpretation Comments POTASSIUM (test code = K/ABG) 3.8 MEQ/L 3.4-5.0 N [id number] 17:49:00 Test Item Value Reference Range Interpretation Comments CHLORIDE (test code = CL/ABG) MEQ/L 100-108 CREATININE [id number] 17:49:00 Test Item Value Reference Range Interpretation Comments CREATININE ABG (test code = CREAABG) mg/dL 0.8-1.3 POC IONIZED [id number] 17:49:00 Test Item Value Reference Range Interpretation Comments POC IONIZED CALCIUM (test code = MMOL/L 1.12-1.32 POCCA) POC [id number] 17:49:00 Test Item Value Reference Range Interpretation Comments POC GLUCOSE (test code = POCGLU) MG/DL 70-110 [id number] 17:49:00 Test Item Value Reference Range Interpretation Comments SODIUM (test code = NA/ABG) 138 MEQ/L 134-147 N [id number] 17:49:00 Test Item Value Reference Range Interpretation Comments POTASSIUM (test code = K/ABG) 3.8 MEQ/L 3.4-5.0 N [id number] 17:49:00 Test Item Value Reference Range Interpretation Comments CHLORIDE (test code = CL/ABG) MEQ/L 100-108 CREATININE [id number] 17:49:00 Test Item Value Reference Range Interpretation Comments CREATININE ABG (test code = CREAABG) mg/dL 0.8-1.3 POC IONIZED [id number] 17:49:00 Test Item Value Reference Range Interpretation Comments POC IONIZED CALCIUM (test code = 1.11 MMOL/L 1.12-1.32 L POCCA) POC [id number] 17:49:00 Test Item Value Reference Range Interpretation Comments POC GLUCOSE (test code = POCGLU) MG/DL 70-110 [id number] 17:49:00 Test Item Value Reference Range Interpretation Comments SODIUM (test code = NA/ABG) 138 MEQ/L 134-147 N [id number] 17:49:00 Test Item Value Reference Range Interpretation Comments POTASSIUM (test code = K/ABG) 3.8 MEQ/L 3.4-5.0 N [id number] 17:49:00 Test Item Value Reference Range Interpretation Comments CHLORIDE (test code = CL/ABG) MEQ/L 100-108 CREATININE [id number] 17:49:00 Test Item Value Reference Range Interpretation Comments CREATININE ABG (test code = CREAABG) mg/dL 0.8-1.3 POC IONIZED [id number] 17:49:00 Test Item Value Reference Range Interpretation Comments POC IONIZED CALCIUM (test code = 1.11 MMOL/L 1.12-1.32 L POCCA) POC [id number] 17:49:00 Test Item Value Reference Range Interpretation Comments POC GLUCOSE (test code = POCGLU) 187 MG/DL 70-110 H [id number] 17:49:00 Test Item Value Reference Range Interpretation Comments SODIUM (test code = NA/ABG) 138 MEQ/L 134-147 N [id number] 17:49:00 Test Item Value Reference Range Interpretation Comments POTASSIUM (test code = K/ABG) 3.8 MEQ/L 3.4-5.0 N [id number] 17:49:00 Test Item Value Reference Range Interpretation Comments CHLORIDE (test code = CL/ABG) 101 MEQ/L 100-108 N CREATININE [id number] 17:49:00 Test Item Value Reference Range Interpretation Comments CREATININE ABG (test code = CREAABG) mg/dL 0.8-1.3 POC IONIZED [id number] 17:49:00 Test Item Value Reference Range Interpretation Comments POC IONIZED CALCIUM (test code = 1.11 MMOL/L 1.12-1.32 L POCCA) POC [id number] 17:49:00 Test Item Value Reference Range Interpretation Comments POC GLUCOSE (test code = POCGLU) 187 MG/DL 70-110 H [id number] 17:49:00 Test Item Value Reference Range Interpretation Comments SODIUM (test code = NA/ABG) 138 MEQ/L 134-147 N [id number] 17:49:00 Test Item Value Reference Range Interpretation Comments POTASSIUM (test code = K/ABG) 3.8 MEQ/L 3.4-5.0 N [id number] 17:49:00 Test Item Value Reference Range Interpretation Comments CHLORIDE (test code = CL/ABG) 101 MEQ/L 100-108 N CREATININE [id number] 17:49:00 Test Item Value Reference Range Interpretation Comments CREATININE ABG (test code = 1.2 mg/dL 0.8-1.3 N CREAABG) POC IONIZED [id number] 17:49:00 Test Item Value Reference Range Interpretation Comments POC IONIZED CALCIUM (test code = 1.11 MMOL/L 1.12-1.32 L POCCA) POC [id number] 17:49:00 Test Item Value Reference Range Interpretation Comments POC GLUCOSE (test code = POCGLU) 187 MG/DL 70-110 H WHOLE BLOOD [id number] 07:40:00 Test Item Value Reference Range Interpretation Comments WHOLE BLOOD GLUCOSE 216 MG/DL 70-99 H Fastin g glucose (test code = POC GLU) normal <100 MG/DL- [facility] [place] [facility] recommend ation WHOLE BLOOD [id number] 20:10:00 Test Item Value Reference Range Interpretation Comments WHOLE BLOOD GLUCOSE 118 MG/DL 70-99 H Fastin g glucose (test code = POC GLU) normal <100 MG/DL- [facility] [place] [facility] recommend ation WHOLE BLOOD [id number] 20:10:00 Test Item Value Reference Range Interpretation Comments WHOLE BLOOD GLUCOSE 260 MG/DL 70-99 H Fastin g glucose (test code = POC GLU) normal <100 MG/DL- [facility] recommend ation RPR FOR SERUM [id number] 16:23:00 Test Item Value Reference Range Interpretation Comments RPR (test code = NONREACTIVE NONREACTIVE RPR) NR = NON-REACTIVE R = REACTIVE ER SCREEN FOR HIV / 14:40:00 Test Item Value Reference Range Interpretation Comments HIV 1/2 AB (test NEGATIVE NEGATIVE This test i s used for code = SCRN HIV) SCREENING p urposes only. All reactive re sults are prelimenary and confirmation re sults will follow. HEPATITIS C ANTIBODY [id number] 14:40:00 Test Item Value Reference Range Interpretation Comments SCRN HCV (test code NEGATIVE NEGATIVE Hepatiti s C Antibody test = SCRN HCV) is for screenin g purposes only. All react muriel will be confirmed by additional test ing. WHOLE BLOOD [id number] 12:20:00 Test Item Value Reference Range Interpretation Comments WHOLE BLOOD GLUCOSE 201 MG/DL 70-99 H Fastin g glucose (test code = POC GLU) normal <100 MG/DL- [facility] [place] [facility] recommend ation LIPID [id number] 11:26:00 Test Item Value Reference Range Interpretation [...] MG/DL <100 H CALC LDL) THYROID STIMULATION [id number] 11:25:00 Test Item Value Reference Range Interpretation Comments TSH (test code = TSH) 1.60 UIU/ML 0.465-4.68 VITAMIN D [id number] 10:48:00 Test Item Value Reference Range Interpretation Comments VITAMIN D, 25-HYDROXY 25.9 Vitami n D guideline has (test code = VITD,25) been d efined by the [place] [facility] [place] [facility] ty practice as fol lowed: Defici ent: less than 20 ng/mL Insufficient: 21-29 ng/mL Sufficient: 30- 100 ng/mL Pot ential Toxicity: >100n g/mL VALPROIC [id number] 10:48:00 Test Item Value Reference Range Interpretation Comments VALP (test code = VALP) <10.0 UG/ML 50-100 L % HEMOGLOBIN A1C (GLYCATED)2019-04-21 09:22:00 Test Item Value Reference Range Interpretation Comments HEMOGLOBIN A1C (test 8.4 % 0-6 H TH ERAPEUTIC TARGET code = GLYCO-) FOR THE TREAT MENT OF DIABETES M GATO PATIENTS IS < 7 % HBA1C. [facility] [employer] DIABETES CARE 2002;25:S33-S49 WHOLE BLOOD [id number] 06:45:00 Test Item Value Reference Range Interpretation Comments WHOLE BLOOD GLUCOSE 229 MG/DL 70-99 H Fastin g glucose (test code = POC GLU) normal <100 MG/DL- [employer] [place] [facility] recommend ation WHOLE BLOOD [id number] 19:50:00 Test Item Value Reference Range Interpretation Comments WHOLE BLOOD GLUCOSE 234 MG/DL 70-99 H Fastin g glucose (test code = POC GLU) normal <100 MG/DL- [employer] [place] [facility] recommend ation WHOLE BLOOD [id number] 17:30:00 Test Item Value Reference Range Interpretation Comments WHOLE BLOOD GLUCOSE 247 MG/DL 70-99 H Fastin g glucose (test code = POC GLU) normal <100 MG/DL- [facility] recommend ation MICROALBUMIN, RANDOM [id number] 17:14:00 Test Item Value Reference Range Interpretation [...] 16.3 mg/dL code = UCREMGDL) WHOLE BLOOD [id number] 12:10:00 Test Item Value Reference Range Interpretation Comments WHOLE BLOOD GLUCOSE 221 MG/DL 70-99 H Fastin g glucose (test code = POC GLU) normal <100 MG/DL- [employer] [place] [facility] recommend ation [id number] 02:40:00 Test Item Value Reference Range Interpretation Comments GLUBED (test code = 286 MG/DL 70-110 H Performe d by certified GLUBED) 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 [facility] [id number] 19:40:00 Test Item Value Reference Range Interpretation Comments GLUBED (test code = 165 MG/DL 70-110 H Performe d by certified GLUBED) 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 [facility] BASIC METABOLIC [id number] 05:04:00 Test Item Value Reference Range Interpretation [...] code = 8.3 mg/dL 8.0-10.5 N CA) [id number] 05:04:00 Test Item Value Reference Range Interpretation [...] may anayeli y by method. BASIC METABOLIC [id number] 05:03:00 Test Item Value Reference Range Interpretation [...] CALCIUM (test code = CA) mg/dL 8.0-10.5 [id number] 05:03:00 Test Item Value Reference Range Interpretation [...] may anayeli y by method. CBC W/AUTO [id number] 04:48:00 Test Item Value Reference Range Interpretation [...] code = MDIFF) - CT HEAD/BRAIN W/O [id number] 18:08:00 Name: BRITT FUENTES [facility] : 1975 Age/S: 43 / M [address] [place] [address] Bl Unit #: [id number] Loc: [id number] Phys: Paolo Otero DO Acct: [id number] Dis Date: Status: REG ER PHONE #: [phone] Exam Date: 01/29/2019 1754 FAX #: [phone] Reason: found down EXAMS: CPTCODE: [id number] CT HEAD/BRAIN W/O CONT [address] HEAD INDICATION: found down. TECHNIQUE: [...] RT(R) CTDI: DLP: Trnscb Date/Time: 01/29/2019 (1807) [email or web address] Orig Print D/T: S: 01/29/2019 (1811) PAGE 1 Signed ReportBASIC METABOLIC [id number] 17:48:00 Test Item Value Reference Range Interpretation [...] code = 8.7 mg/dL 8.0-10.5 N CA) [id number] 17:48:00 Test Item Value Reference Range Interpretation Comments ALCOHOL (test code < 0.003 G/dL <0.003 Ethyl Alc ohol = ALC) Interpretation: 0.100 gm/dL - Legally Intoxic ated 0.300-0.40 0 gm/dL - Severely Into xicated >0.400 gm/dL - Potentially LethalResults a re for Medical purpose s only, and not for Leg al orEmployment ev aluation purposes. CBC W/AUTO [id number] 17:32:00 Test Item Value Reference Range Interpretation [...] REQUIRED (test NO code = MDIFF) POC [id number] 04:14:49 Test Item Value Reference Range Interpretation Comments Glucose POC (test 220 mg/dL 70-115 H If you con cylinder filler your code = Glucose POC) patient critically ill, the Ricky-Accu Check Infrom II meter should not be used for Glucose determination. Draw a venous Glucose and send to the main Lab for analysis. CT Brain/Head w/o [id number] 21:39:46Patient: BRITT FUENTES Date/Time11/19/2018 21:31 CDTReason for [...] reconstruction techn ique. Total DLP: 718.2mGy-cm.Comparison: NoneLocation: Q10Dzpbwlxz:The ventricles and sulci are normal in size [...] Signature): 11/19/2018 9:39 pmDRUGS OF ABUSE SCREEN [id number] 16:18:00 Test Item Value Reference Range Interpretation [...] non-medical pur poses. DRUGS OF ABUSE SCREEN [id number] 16:09:00 Test Item Value Reference Range Interpretation [...] ed for non-medical pur poses. HEPATIC FUNCTION [id number] 15:53:00 Test Item Value Reference Range Interpretation [...] in INTERNATIONAL (test code = CK) UNITS/LITER [id number] 15:53:00 Test Item Value Reference Range Interpretation Comments SALICYLATE (test code = DAVE) 3.0 mg/dL 2.8-20.0 N [id number] 15:53:00 Test Item Value Reference Range Interpretation Comments ALCOHOL (test code < 0.003 G/dL <0.003 Ethyl Alc ohol = ALC) Interpretation: 0.100 gm/dL - Legally Intoxic ated 0.300-0.40 0 gm/dL - Severely Into xicated >0.400 gm/dL - Potentially LethalResults a re for Medical purpose s only, and not for Leg al orEmployment ev aluation purposes. CHEMISTRY 8 [id number] 15:42:00 Test Item Value Reference Range Interpretation [...] ML/MIN (test code = GFRBED) CHEMISTRY 8 [id number] 15:42:00 Test Item Value Reference Range Interpretation Comments ISTAT-SODIUM (test 133 MMOL/L 134-147 L code = NAP) ISTAT-POTASSIUM (test 4.3 MMOL/L 3.4-5.0 N code = KP) ISTAT-CHLORIDE (test 94 MMOL/L 100-108 L Perform ed by code = CLP) certified opera tor at [facility] ISTAT CARBON DIOXIDE 29.0 mmol/L 21-33 N (test code = ISTAT-CO2) ISTAT CALCIUM IONIZED 1.08 MG/DL 1.12-1.32 L (test code = ISTAT-KATHLEEN) ISTAT-GLUCOSE (test 418 MG/DL 70-110 H code = GLUP) ISTAT-BUN (test code = 13 MG/DL 7-18 N BUNP) BEDSIDE CREATININE 1.1 MG/DL 0.6-1.3 N (test code = CREATBED) GLOMERULAR FILTRATION 78 ML/MIN RATE POC (test code = GFRBED) CBC W/O [id number] 15:30:00 Test Item Value Reference Range Interpretation [...] 7.0-9.0 H code = MPV) Valproic Acid [id number] 08:30:32 Test Item Value Reference Range Interpretation Comments Valproic Acid Level (test code 102.7 ug/mL(g) 50.0-100.0 H = Valproic Acid Level) RPR [id number] 11:30:00 Test Item Value Reference Range Interpretation [...] = 02-07-20 N Expiration Dt) Thyroid Stimulating [id number] 11:02:26 Test Item Value Reference Range Interpretation Comments TSH (test code = TSH) 1.060 mIU/mL 0.270-4.200 Lipid [id number] 10:58:47 Test Item Value Reference Range Interpretation Comments Cholesterol Total 214 mg/dL 0-200 H RISK OF HE ART (test code = DISEASEPublishe d by Cholesterol Total) [place] [employer] Kaia lyte Optimal Borderl ine [...] is LDL/HDL Ratio=L DL Calc/HDL Chol Lipid [id number] 10:58:47 Test Item Value Reference Range Interpretation Comments Cholesterol Total 214 mg/dL 0-200 H RISK OF HE ART (test code = DISEASEPublishe d by Cholesterol Total) [place] [employer] Kaia lyte Optimal Borderl ine [...] is LDL/HDL Ratio=L DL Calc/HDL Chol Urine [id number] 09:31:38No growth at 24 hours. No growth at 48 hours.IG [id number] 13:18:22 Test Item Value Reference Range Interpretation Comments IG (test code = IG) 0.3 % 0.0-5.0 IG Abs (test code = IG Abs) 0 x10 N Complete Blood Count with [id number] 13:18:21 Test Item Value Reference Range Interpretation [...] code = IPF) 0 % N Automated [id number] 13:18:21 Test Item Value Reference Range Interpretation Comments Neutro Auto (test code = Neutro 57.7 % 36.0-70.0 Auto) Lymph Auto (test code = Lymph Auto) 31.9 % 12.0-44.0 [place] Auto (test code = [place] Auto) 7.3 % 0.0-11.0 Eos, Auto (test code = Eos, Auto) 2.1 % 0.0-7.0 Basophil Auto (test code = Basophil 0.7 % 0.0-2.0 Auto) Neutro Absolute (test code = Neutro 5.7 x10 1.6-7.4 Absolute) Lymph Absolute (test code = Lymph 3.16 x10 .50-4.60 Absolute) [place] Absolute (test code = [place] .72 x10 .00-1.20 Absolute) Eos Absolute (test code = Eos 0.21 x10 0.00-0.74 Absolute) Baso Absolute (test code = Baso 0.07 x10 0.00-0.21 Absolute) Complete Blood Count with [id number] 13:18:21 Test Item Value Reference Range Interpretation [...] 0 % N Drugs of Abuse Urine 13:13:42 Test Item Value Reference Range Interpretation [...] code = Cannabinoid Screen Ur) Comprehensive Metabolic [id number] 13:10:46 Test Item Value Reference Range Interpretation [...] A/G 1.5 ratio N Ratio) Comprehensive Metabolic [id number] 13:10:46 Test Item Value Reference Range Interpretation [...] the National Kidney Foundation, http://nkdep.ni h.gov Alcohol [id number] 13:10:46 Test Item Value Reference Range Interpretation Comments Ethanol Level (test <0.00 g/dL 0.00-0.01 Intoxica wade 0.080 g/dL code = Ethanol or more Level) Ethanol Inst (test <0 N code = Ethanol Inst) Comprehensive Metabolic [id number] 13:10:46 Test Item Value Reference Range Interpretation [...] ag e have not been validated by [facility] MDRD study and should be interpreted wit [...] ag e have not been validated by [facility] MDRD study and should be interpreted wit h caution. eGFR R esult Interpretation: eGFR > or = 60 is in the Normal RangeeGF R < 60 may mean kid alyssa diseaseeGFR < 1 5 may mean kidney failure Rang es recommended by the National Kidney Foundation, http://nkdep.ni h.gov Comprehensive Metabolic [id number] 13:10:46 Test Item Value Reference Range Interpretation [...] code = 17 U/L 1-33 Reference r [facility] ALT) changed due to change in patie nt's sex at 19:15:05. Norm al High changed fr om 41 to 33. Result flag not changed. AST (test code = 16 U/L 1-32 Reference r [facility] AST) changed due to change [...] ag e have not been validated by [facility] MDRD study and should be interpreted wit [...] ag e have not been validated by [facility] MDRD study and should be interpreted wit h caution. eGFR R esult Interpretation: eGFR > or = 60 is in the Normal RangeeGF R < 60 may mean kid alyssa diseaseeGFR < 1 5 may mean kidney failure Rang es recommended by the National Kidney Foundation, http://nkdep.ni h.gov [id number] 06:35:00 Test Item Value Reference Range Interpretation Comments GLUBED (test code = 253 MG/DL 70-110 H Performe d by certified GLUBED) 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 [facility] [id number] 15:12:00 Test Item Value Reference Range Interpretation Comments GLUBED (test code = 567 MG/DL 70-110 H Performe d by certified GLUBED) 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 [facility] [id number] 08:00:00 Test Item Value Reference Range Interpretation Comments GLUBED (test code = 217 MG/DL 70-110 H Performe d by certified GLUBED) 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 [facility] [id number] 05:54:00 Test Item Value Reference Range Interpretation Comments GLUBED (test code = 368 MG/DL 70-110 H Performe d by certified GLUBED) 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 [facility] URINALYSIS [id number] 05:14:00 Test Item Value Reference Range Interpretation [...] NONE SEEN code = SQU) VENOUS BLOOD [id number] 04:32:00 Test Item Value Reference Range Interpretation [...] y DELIVERY (test code = certif ied 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 [facility]) [facility] VENOUS BLOOD GAS TEMP 98.6 F (test code = TEMPV) VENOUS BLOOD GAS SITE Other (test code = SITEV) VENOUS TCO2 (test 25 code = TCO2V) BASIC METABOLIC [id number] 04:18:00 Test Item Value Reference Range Interpretation [...] 7.9 mg/dL 8.0-10.5 L CA) HEPATIC FUNCTION [id number] 04:18:00 Test Item Value Reference Range Interpretation [...] 149 IUnit/L 20-125 H code = ALKP) [id number] 04:18:00 Test Item Value Reference Range Interpretation Comments LIPASE (test code = LIP) 201 IUnit/L 73-393 N ACETONE [id number] 04:18:00 Test Item Value Reference Range Interpretation Comments ACETONE QUANT (test NEGATIVE - <20mg/dL NEG - <20 code = ACETN) mg/dL PROTHROMBIN [id number] 04:09:00 Test Item Value Reference Range Interpretation [...] o prevent recurre nt infarct). BASIC METABOLIC [id number] 04:08:00 Test Item Value Reference Range Interpretation [...] code = CA) mg/dL 8.0-10.5 HEPATIC FUNCTION [id number] 04:08:00 Test Item Value Reference Range Interpretation Comments TOTAL PROTEIN (test code = PROT) g/dL 6.4-8.2 ALBUMIN (test code = ALB) g/dL 3.4-5.0 BILIRUBIN TOTAL (test code = BILT) mg/dL 0.0-1.0 BILIRUBIN DIRECT (test code = BILD) MG/DL 0.0-0.30 SGOT/AST (test code = AST) IUnit/L 15-37 SGPT/ALT (test code = ALT) IUnit/L 15-65 ALKALINE PHOSPHATASE TOTAL (test IUnit/L 20-125 code = ALKP) [id number] 04:08:00 Test Item Value Reference Range Interpretation Comments LIPASE (test code = LIP) IUnit/L 73-393 ACETONE [id number] 04:08:00 Test Item Value Reference Range Interpretation Comments ACETONE QUANT (test NEGATIVE - <20mg/dL NEG - <20 code = ACETN) mg/dL CBC W/AUTO [id number] 03:55:00 Test Item Value Reference Range Interpretation [...] REQUIRED (test code NO = MDIFF) TROPONIN-I [id number] 03:45:00 Test Item Value Reference Range Interpretation Comments TROPONIN-I RAPID 0.00 ng/mL 0.00-0.08 N Performed b y certified (test code = 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 [facility] Ctr[facility] [employer] with joint leadershi p from the EuropeanSociety of Cardiology (ESC ), the [place] [employer] Foun dation (ACCF), the [place] [employer] Association(AHA ) and the World Heart Fed eration (WHF) refined p ast criteria of myocardial i nfarction (AR) with a uni versal definition of m yocardial infarction that supports the use of cTnI as a preferred bioma rker for myocardial inju ry. The universal defin ition of AR, according to th is taskforce, is d [...] change s in troponin levels characteristic of AR. Comprehensive Metabolic [id number] 01:07:10 Test Item Value Reference Range Interpretation [...] code = 32 U/L 1-33 Reference r blaise ALT) changed due to change in patie nt's sex at 9 19:15:07. Norm al High changed fr om 41 to 33. Result flag not changed. AST (test code = 26 U/L 1-32 Reference r blaise AST) changed due to change in patie nt's sex at 9 19:15:07. Norm al High changed fr om [...] Foundation, http://nkdep.ni h.gov Complete Blood Count with [id number] 00:39:59 Test Item Value Reference Range Interpretation [...] code = IPF) 0 % N POCT-GLUCOSE [id number] 20:46:00 Test Item Value Reference Range Interpretation Comments POC-GLUCOSE METER 195 mg/dL 70-110 H TESTED AT [facility] [address] ([facility]) (test code = [place] 1538) [address] CT Brain/Head w/o [id number] 00:25:11Patient: BRITT FUENTES Date/Time11/04/2017 00:06 CDTReason for ExamAltered level of consciousnessReportExam: CT of the brain without contrast.History: Altered mental statusLocation: A62Wvllpbvnc: Contiguous axial CT images were obtained from [...] Foundation, http://nkdep.ni h.gov Complete Blood Count with [id number] 21:44:38 Test Item Value Reference Range Interpretation [...] = IPF) 0 % N Comprehensive Metabolic [id number] 15:49:10 Test Item Value Reference Range Interpretation [...] Foundation, http://nkdep.ni h.gov Complete Blood Count with [id number] 15:44:44 Test Item Value Reference Range Interpretation [...] = IPF) 0 % N URINALYSIS W/ [id number] 00:30:00 Test Item Value Reference Range Interpretation [...] 1584) SOURCE(BEAKER) (test code = 2795) POCT-GLUCOSE [id number] 23:25:00 Test Item Value Reference Range Interpretation Comments POC-GLUCOSE METER 266 mg/dL 70-110 H TESTED AT [facility] [address] (BEAKER) (test code = [place] 1538) [address] BASIC METABOLIC [id number] 23:12:00 Test Item Value Reference Range Interpretation [...] PATIEN TS. RAD, KNEE, COMPLETE (4 VIEWS), [id number] 23:01:00Reason for exam:->FALL FINAL REPORT RAD, KNEE, [...] MDReport Verified Date/Time: 10/21/2017 23:01:41 Reading Location: [address] Reading Room CBC W/PLT COUNT & [...] PERCENT (BEAKER) (test code = 2801) KETONE, [id number] 22:52:00 Test Item Value Reference Range Interpretation Comments KETONES, BLOOD (BEAKER) (test code 0.1 mmol/L <0.4 = 1103) POCT-GLUCOSE [id number] 22:11:00 Test Item Value Reference Range Interpretation Comments POC-GLUCOSE METER 324 mg/dL 70-110 H TESTED AT [facility] [address] ([place]) (test code = [place] 1538) [address] Comprehensive Metabolic [id number] 02:06:31 Test Item Value Reference Range Interpretation [...] Foundation, [email or web address].ni h.gov Complete Blood Count with [id number] 01:51:13 Test Item Value Reference Range Interpretation [...] 0 % N Complete Blood Count with [id number] 03:59:01 Test Item Value Reference Range Interpretation [...] = IPF) 0 % N Comprehensive Metabolic [id number] 03:52:18 Test Item Value Reference Range Interpretation [...] Creatinine Level) change in patient's sex at 19:15:12. Norm al Low changed [...] code = 25 U/L 1-32 Reference r blaise AST) changed [...] ag e have not been validated by [facility] MDRD study and should be interpreted wit [...] ag e have not been validated by [facility] MDRD study and should be interpreted wit h caution. eGFR R esult Interpretation: eGFR > or = 60 is in the Normal RangeeGF R < 60 may mean kid alyssa diseaseeGFR < 1 5 may mean kidney failure Rang es recommended by the National Kidney Foundation, http://nkdep.ni h.gov CREATINE KINASE (CK), TOTAL AND [id number] 04:39:00 Test Item Value Reference Range Interpretation Comments CREATINE KINASE TOTAL (BEAKER) 382 U/L 29-200 H (test code = 380) CREATINE KINASE-MB (BEAKER) (test 6.5 ng/mL 0.0-6.6 code = 750) CREATINE KINASE-MB INDEX (BEAKER) 1.7 % (test code = 395) CK-MB Reference Range:<6.7 Normal6.7-10.0 Borderline>10.0 AbnormalTROPONIN [id number] 04:39:00 Test Item Value Reference Range Interpretation [...] and persistent tachyarrhythmia.RAD, CHEST, 1 VIEW, NON [id number] 00:46:00Reason for exam:->DIZZINESSFINAL REPORT History: Dizziness. Comparison: None. Findings: A single view of the chest is submitted. The examination is limited by lordotic positioning. The cardiomediastinal contours are unremarkable. There is no focal consolidation, pneumothorax, large pleural effusion or evidence of overt pulmonary edema. There is no acute bony abnormality. Impression: No acute abnormality. Signed: Piyush Garsiaeport Verified Date/Time: 09/24/2017 00:46:00 Reading Location: [address] Reading Room BASIC METABOLIC [id number] 00:07:00 Test Item Value Reference Range Interpretation [...] ESTIMATED GFR. CREATINE KINASE (CK), TOTAL AND [id number] 00:01:00 Test Item Value Reference Range Interpretation Comments CREATINE KINASE TOTAL (BEAKER) 469 U/L 29-200 H (test code = 380) CREATINE KINASE-MB (BEAKER) (test 7.3 ng/mL 0.0-6.6 H code = 750) CREATINE KINASE-MB INDEX (BEAKER) 1.6 % (test code = 395) CK-MB Reference Range:<6.7 Normal6.7-10.0 Borderline>10.0 AbnormalTROPONIN [id number] 00:01:00 Test Item Value Reference Range Interpretation [...] failure, acidosis, acute neurological disease, and persistent tachyarrhythmia.[id number] 23:55:00 Test Item Value Reference Range Interpretation Comments MAGNESIUM (BEAKER) (test code = 1.9 mg/dL 1.6-2.6 627) [id number] 23:51:00 Test Item Value Reference Range Interpretation [...] PERCENT (BEAKER) (test code = 2801) POCT-GLUCOSE [id number] 23:22:00 Test Item Value Reference Range Interpretation Comments POC-GLUCOSE METER 304 mg/dL 70-110 H TESTED AT [facility] [address] (BEAKER) (test code = [place] 1538) [address] Comprehensive Metabolic [id number] 03:05:25 Test Item Value Reference Range Interpretation [...] code = 26 U/L 1-33 Reference r [facility] ALT) changed due to change in patie nt's sex at 19:15:14. Norm al High changed fr om 41 to 33. Result flag not changed. AST (test code = 24 U/L 1-32 Reference r [facility] AST) changed due to change [...] ag e have not been validated by [facility] MDRD study and should be interpreted wit [...] ag e have not been validated by [facility] MDRD study and should be interpreted wit h caution. eGFR R esult Interpretation: eGFR > or = 60 is in the Normal RangeeGF R < 60 may mean kid alyssa diseaseeGFR < 1 5 may mean kidney failure Rang es recommended by the National Kidney Foundation, http://nkdep.ni h.gov Complete Blood Count with [id number] 23:51:37 Test Item Value Reference Range Interpretation [...] = IPF) 0 % N POC Glucose, [id number] 08:40:00 Test Item Value Reference Range Interpretation Comments POC Glucose (test 303 mg/dL 70-115 H If you con cylinder filler your code = POCGLUC) patient crit ically ill, the Ricky Accu- Chek InformII meters hould not be used for Glu cose determinations. Draw a venous Glucose and send to the Main Lab for Analysis. [id number] 22:04:00 Test Item Value Reference Range Interpretation [...] code = THC) POSITIVE Negative A Alcohol/Ethanol, [id number] 21:40:00 Test Item Value Reference Range Interpretation Comments Alcohol, Ethyl <0.01 g/dL 0.00-0.01 N Intoxicated 0.080 (test code = ETOH) g/dL or m ore Comprehensive Metabolic [id number] 21:40:00 Test Item Value Reference Range Interpretation [...] National Kidney Foundation,http ://nkd ep.nih.gov CBC with [id number] 21:33:00 Test Item Value Reference Range Interpretation [...] code = ALYMPH) 2.4 K/cumm 0.5-4.6 N [place] Abs (test code = AMONO) 0.6 K/cumm 0.0-1.2 N Eos Abs (test code = AEOS) 0.19 K/cumm 0.00-0.74 N Baso Abs (test code = ABASO) 0.1 K/cumm 0.00-0.21 N POC Glucose, [id number] 20:46:00 Test Item Value Reference Range Interpretation Comments POC Glucose (test 164 mg/dL 70-115 H If you con cylinder filler your code = POCGLUC) patient crit ically ill, the Ricky Accu- Chek InformII meters hould not be used for Glu cose determinations. Draw a venous Glucose and send to the Main Lab for Analysis. POC Glucose, [id number] 09:31:00 Test Item Value Reference Range Interpretation Comments POC Glucose (test 268 mg/dL 70-115 H Notify RN or MDIf you code = POCGLUC) consider you r patient critically ill, the Ricky Accu-Chek InformII metershould not be used for Glucose determinations. Draw a venous Glucose and send to the Main Lab for Analysis. POC Glucose, [id number] 06:32:00 Test Item Value Reference Range Interpretation Comments POC Glucose (test 175 mg/dL 70-115 H If you con cylinder filler your code = POCGLUC) patient crit ically ill, the Ricky Accu- Chek InformII meters hould not be used for Glu cose determinations. Draw a venous Glucose and send to the Main Lab for Analysis. POC Glucose, [id number] 15:26:00 Test Item Value Reference Range Interpretation Comments POC Glucose (test 142 mg/dL 70-115 H Notify RN or MDIf you code = POCGLUC) consider you r patient critically ill, the Ricky Accu-Chek InformII metershould not be used for Glucose determinations. Draw a venous Glucose and send to the Main Lab for Analysis. POC Glucose, [id number] 10:58:00 Test Item Value Reference Range Interpretation Comments POC Glucose (test 162 mg/dL 70-115 H Notify RN or MDIf you code = POCGLUC) consider you r patient critically ill, the Ricky Accu-Chek InformII metershould not be used for Glucose determinations. Draw a venous Glucose and send to the Main Lab for Analysis. POC Glucose, [id number] 06:53:00 Test Item Value Reference Range Interpretation Comments POC Glucose (test 168 mg/dL 70-115 H If you con cylinder filler your code = POCGLUC) patient crit ically ill, the Ricky Accu- Chek InformII meters hould not be used for Glu cose determinations. Draw a venous Glucose and send to the Main Lab for Analysis. POC Glucose, [id number] 19:20:00 Test Item Value Reference Range Interpretation Comments POC Glucose (test 202 mg/dL 70-115 H If you con cylinder filler your code = POCGLUC) patient crit ically ill, the Ricky Accu- Chek InformII meters hould not be used for Glu cose determinations. Draw a venous Glucose and send to the Main Lab for Analysis. POC Glucose, [id number] 15:27:00 Test Item Value Reference Range Interpretation Comments POC Glucose (test 181 mg/dL 70-115 H Notify RN or MDIf you code = POCGLUC) consider you r patient critically ill, the Ricky Accu-Chek InformII metershould not be used for Glucose determinations. Draw a venous Glucose and send to the Main Lab for Analysis. POC Glucose, [id number] 10:48:00 Test Item Value Reference Range Interpretation Comments POC Glucose (test 172 mg/dL 70-115 H Notify RN or MDIf you code = POCGLUC) consider you r patient critically ill, the Ricky Accu-Chek InformII metershould not be used for Glucose determinations. Draw a venous Glucose and send to the Main Lab for Analysis. POC Glucose, [id number] 06:24:00 Test Item Value Reference Range Interpretation Comments POC Glucose (test 196 mg/dL 70-115 H If you con cylinder filler your code = POCGLUC) patient crit ically ill, the Ricky Accu- Chek InformII meters hould not be used for Glu cose determinations. Draw a venous Glucose and send to the Main Lab for Analysis. POC Glucose, [id number] 20:01:00 Test Item Value Reference Range Interpretation Comments POC Glucose (test 272 mg/dL 70-115 H If you con cylinder filler your code = POCGLUC) patient crit ically ill, the Ricky Accu- Chek InformII meters hould not be used for Glu cose determinations. Draw a venous Glucose and send to the Main Lab for Analysis. POC Glucose, [id number] 15:28:00 Test Item Value Reference Range Interpretation Comments POC Glucose (test 223 mg/dL 70-115 H Notify RN or MDIf you code = POCGLUC) consider you r patient critically ill, the Ricky Accu-Chek InformII metershould not be used for Glucose determinations. Draw a venous Glucose and send to the Main Lab for Analysis. POC Glucose, [id number] 12:10:00 Test Item Value Reference Range Interpretation Comments POC Glucose (test 129 mg/dL 70-115 H Notify RN or MDIf you code = POCGLUC) consider you r patient critically ill, the Ricky Accu-Chek InformII metershould not be used for Glucose determinations. Draw a venous Glucose and send to the Main Lab for Analysis. POC Glucose, [id number] 05:42:00 Test Item Value Reference Range Interpretation Comments POC Glucose (test 236 mg/dL 70-115 H Notify RN or MDIf you code = POCGLUC) consider you r patient critically ill, the Ricky Accu-Chek InformII metershould not be used for Glucose determinations. Draw a venous Glucose and send to the Main Lab for Analysis. RPR, [id number] 03:03:00 Test Item Value Reference Range Interpretation Comments RPR (test code = RPR) Non-Reactive Non-Reactive N POC Glucose, [id number] 16:21:00 Test Item Value Reference Range Interpretation Comments POC Glucose (test 318 mg/dL 70-115 H Notify RN or MDIf you code = POCGLUC) consider you r patient critically ill, the Ricky Accu-Chek InformII metershould not be used for Glucose determinations. Draw a venous Glucose and send to the Main Lab for Analysis. POC Glucose, [id number] 11:05:00 Test Item Value Reference Range Interpretation Comments POC Glucose (test 318 mg/dL 70-115 H Notify RN or MDIf you code = POCGLUC) consider you r patient critically ill, the Ricky Accu-Chek InformII metershould not be used for Glucose determinations. Draw a venous Glucose and send to the Main Lab for Analysis. POC Glucose, [id number] 06:11:00 Test Item Value Reference Range Interpretation Comments POC Glucose (test 246 mg/dL 70-115 H If you con cylinder filler your code = POCGLUC) patient crit ically ill, the Ricky Accu- Chek InformII meters hould not be used for Glu cose determinations. Draw a venous Glucose and send to the Main Lab for Analysis. POC Glucose, [id number] 21:57:00 Test Item Value Reference Range Interpretation Comments POC Glucose (test 144 mg/dL 70-115 H Notify RN or MDIf you code = POCGLUC) consider you r patient critically ill, the Ricky Accu-Chek InformII metershould not be used for Glucose determinations. Draw a venous Glucose and send to the Main Lab for Analysis. POC Glucose, [id number] 21:43:00 Test Item Value Reference Range Interpretation Comments POC Glucose (test 172 mg/dL 70-115 H Notify RN or MDIf you code = POCGLUC) consider you r patient critically ill, the Ricky Accu-Chek InformII metershould not be used for Glucose determinations. Draw a venous Glucose and send to the Main Lab for Analysis. POC Glucose, [id number] 19:49:00 Test Item Value Reference Range Interpretation Comments POC Glucose (test code = POCGLUC) >600 mg/dL 70-115 HH POC Glucose, [id number] 08:41:00 Test Item Value Reference Range Interpretation Comments POC Glucose (test 250 mg/dL 70-115 H If you con cylinder filler your code = POCGLUC) patient crit ically ill, the Ricky Accu- Chek InformII meters hould not be used for Glu cose determinations. Draw a venous Glucose and send to the Main Lab for Analysis. Urinalysis [id number] 04:20:00 Test Item Value Reference Range Interpretation Comments Color (test code = COLOR) Straw Yellow,Straw,Pl N yellow Clarity (test code = Clear Clear N CLAR) Specific [place] (test 1.004 1.001-1.035 N code = SPGR) [...] (test code = None /HPF BACT) Alcohol/Ethanol, [id number] 02:19:00 Test Item Value Reference Range Interpretation Comments Alcohol, Ethyl <0.01 g/dL 0.00-0.01 N Intoxicated 0.080 (test code = ETOH) g/dL or m ore Comprehensive Metabolic [id number] 02:19:00 Test Item Value Reference Range Interpretation [...] by the National Kidney Foundation,http ://nkd ep.nih.gov [id number] 02:16:00 Test Item Value Reference Range Interpretation [...] 0.00-0.01 N code = ETOHU) CBC with [id number] 02:06:00 Test Item Value Reference Range Interpretation [...] code = ALYMPH) 2.8 K/cumm 0.5-4.6 N [place] Abs (test code = AMONO) 0.5 K/cumm 0.0-1.2 N Eos Abs (test code = AEOS) 0.15 K/cumm 0.00-0.74 N Baso Abs (test code = ABASO) 0.1 K/cumm 0.00-0.21 N POC Glucose, [id number] 01:51:00 Test Item Value Reference Range Interpretation Comments POC Glucose (test 259 mg/dL 70-115 H If you con cylinder filler your code = POCGLUC) patient crit ically ill, the Ricky Accu- Chek InformII meters hould not be used for Glu cose determinations. Draw a venous Glucose and send to the Main Lab for Analysis. POC Glucose, [id number] 20:16:00 Test Item Value Reference Range Interpretation Comments POC Glucose (test 301 mg/dL 70-115 H Notify RN or MDIf you code = POCGLUC) consider you r patient critically ill, the Ricky Accu-Chek InformII metershould not be used for Glucose determinations. Draw a venous Glucose and send to the Main Lab for Analysis. Urinalysis [id number] 17:48:00 Test Item Value Reference Range Interpretation Comments Color (test code = COLOR) Straw Yellow,Straw,Pl N yellow Clarity (test code = Clear Clear N CLAR) Specific [place] (test 1.032 1.001-1.035 N code = SPGR) [...] Bacteria (test code = None /HPF BACT) [id number] 17:43:00 Test Item Value Reference Range Interpretation [...] 0.00-0.01 N code = ETOHU) Comprehensive Metabolic [id number] 17:38:00 Test Item Value Reference Range Interpretation [...] National Kidney Foundation,http ://nkd ep.nih.gov CBC with [id number] 17:16:00 Test Item Value Reference Range Interpretation [...] code = ALYMPH) 2.1 K/cumm 0.5-4.6 N [place] Abs (test code = AMONO) 0.6 K/cumm 0.0-1.2 N Eos Abs (test code = AEOS) 0.13 K/cumm 0.00-0.74 N Baso Abs (test code = ABASO) 0.1 K/cumm 0.00-0.21 N POC Glucose, [id number] 16:08:00 Test Item Value Reference Range Interpretation Comments POC Glucose (test code = 457 mg/dL 70-115 HH Not holden RN or POCGLUC) POC Glucose, [id number] 07:43:00 Test Item Value Reference Range Interpretation Comments POC Glucose (test 239 mg/dL 70-115 H If you con cylinder filler your code = POCGLUC) patient crit ically ill, the Ricky Accu- Chek InformII meters hould not be used for Glu cose determinations. Draw a venous Glucose and send to the Main Lab for Analysis. POC Glucose, [id number] 03:18:00 Test Item Value Reference Range Interpretation Comments POC Glucose (test 376 mg/dL 70-115 H If you con cylinder filler your code = POCGLUC) patient crit ically ill, the Ricky Accu- Chek InformII meters hould not be used for Glu cose determinations. Draw a venous Glucose and send to the Main Lab for Analysis. POC Glucose, [id number] 03:14:00 Test Item Value Reference Range Interpretation Comments POC Glucose (test code = 402 mg/dL 70-115 HH Not holden RN or POCGLUC) Alcohol/Ethanol, [id number] 02:35:00 Test Item Value Reference Range Interpretation Comments Alcohol, Ethyl <0.01 g/dL 0.00-0.01 N Intoxicated 0.080 (test code = ETOH) g/dL or m ore Urinalysis [id number] 02:19:00 Test Item Value Reference Range Interpretation Comments Color (test code = COLOR) Yellow Yellow,Straw,Pl N yellow Clarity (test code = Clear Clear N CLAR) Specific [place] (test 1.031 1.001-1.035 N code = SPGR) [...] Bacteria (test code = None /HPF BACT) [id number] 02:19:00 Test Item Value Reference Range Interpretation [...] 0.00-0.01 N code = ETOHU) Comprehensive Metabolic [id number] 02:13:00 Test Item Value Reference Range Interpretation [...] National Kidney Foundation,http ://nkd ep.nih.gov CBC with [id number] 02:06:00 Test Item Value Reference Range Interpretation [...] code = ALYMPH) 2.1 K/cumm 0.5-4.6 N [place] Abs (test code = AMONO) 0.6 K/cumm 0.0-1.2 N Eos Abs (test code = AEOS) 0.17 K/cumm 0.00-0.74 N Baso Abs (test code = ABASO) 0.1 K/cumm 0.00-0.21 N POC Glucose, [id number] 00:47:00 Test Item Value Reference Range Interpretation Comments POC Glucose (test 341 mg/dL 70-115 H If you con cylinder filler your code = POCGLUC) patient crit ically ill, the Ricky Accu- Chek InformII meters hould not be used for Glu cose determinations. Draw a venous Glucose and send to the Main Lab for Analysis. CBC with [id number] 13:38:00 Test Item Value Reference Range Interpretation [...] code = ALYMPH) 2.1 K/cumm 0.5-4.6 N [place] Abs (test code = AMONO) 0.6 K/cumm 0.0-1.2 N Eos Abs (test code = AEOS) 0.13 K/cumm 0.00-0.74 N Baso Abs (test code = ABASO) 0.1 K/cumm 0.00-0.21 N Comprehensive Metabolic [id number] 13:36:00 Test Item Value Reference Range Interpretation [...] ars ofage have not been validated by niels armas MDRD study and norma mosquera be interpretedwith caution.eGFR Re sult Interpretation: eGFR > or = 60 is in t he Normal RangeeGF R < 60 may mean kidney diseaseeGFR < 1 5 may mean kidney failureRange s recommended by the National Kidney Foundation,http ://nkd ep.nih.gov XR FOOT [id number] 13:13:25XR ANKLE 2V-RIGHT, XR FOOT 2V-RIGHTLOCATION: [id number]:fallCOMPARISON: None.DISCUSSION:Frontal, oblique, and lateral radiographs of the right ankle and rightfoot were obtained. No fracture, dislocation, lytic or blastic lesions are identified. The joint spaces are preserved.IMPRESSION:No acute osseous abnormalities.XR ANKLE [id number] 13:13:25XR ANKLE 2V-RIGHT, XR FOOT 2V-RIGHTLOCATION: [id number]:fallCOMPARISON: None.DISCUSSION:Frontal, oblique, and lateral radiographs of the right ankle and rightfoot were obtained. No fracture, dislocation, lytic or blastic lesions are identified. The joint spaces are preserved.IMPRESSION:No acute osseous abnormalities.POC Glucose, [id number] 20:04:00 Test Item Value Reference Range Interpretation Comments POC Glucose (test 343 mg/dL 70-115 H If you con cylinder filler your code = POCGLUC) patient crit ically ill, the Ricky Accu- Chek InformII meters hould not be used for Glu cose determinations. Draw a venous Glucose and send to the Main Lab for Analysis. POC Glucose, [id number] 23:43:00 Test Item Value Reference Range Interpretation Comments POC Glucose (test 160 mg/dL 70-115 H If you con cylinder filler your code = POCGLUC) patient crit ically ill, the Ricky Accu- Chek InformII meters hould not be used for Glu cose determinations. Draw a venous Glucose and send to the Main Lab for Analysis. Alcohol/Ethanol, [id number] 22:56:00 Test Item Value Reference Range Interpretation Comments Alcohol, Ethyl <0.01 g/dL 0.00-0.01 N Intoxicated 0.080 (test code = ETOH) g/dL or m [facility] Comprehensive Metabolic [id number] 22:56:00 Test Item Value Reference Range Interpretation Comments Sodium (test code = 133 mmol/L 135-145 L NA) Potassium (test 3.9 mmol/L 3.5-5.1 N code = K) Chloride (test code 93 mmol/L 98-105 L = CL) Carbon Dioxide 28 mmol/L 22-29 N (test code = CO2) Glucose (test code 435 mg/dL 70-115 HH VERIFIED BY REPEAT = GLU) TESTINGREAD DARSHAN K LAB VALUESD AUREA RN 22:55 7./OG Blood Urea Nitrogen 17 [...] by the National Kidney Foundation,http ://nkd ep.nih.gov [id number] 22:50:00 Test Item Value Reference Range Interpretation [...] g/dL 0.00-0.01 N code = ETOHU) Urinalysis [id number] 22:38:00 Test Item Value Reference Range Interpretation Comments Color (test code = COLOR) Yellow Yellow,Straw,Pl N yellow Clarity (test code = Clear Clear N CLAR) Specific [place] (test 1.029 1.001-1.035 N code = SPGR) [...] code = None /HPF BACT) CBC with [id number] 22:30:00 Test Item Value Reference Range Interpretation [...] code = ALYMPH) 2.2 K/cumm 0.5-4.6 N [place] Abs (test code = AMONO) 0.6 K/cumm 0.0-1.2 N Eos Abs (test code = AEOS) 0.23 K/cumm 0.00-0.74 N Baso Abs (test code = ABASO) 0.1 K/cumm 0.00-0.21 N POC Glucose, [id number] 22:08:00 Test Item Value Reference Range Interpretation Comments POC Glucose (test code = POCGLUC) 431 mg/dL 70-115 HH Comprehensive Metabolic [id number] 23:34:00 Test Item Value Reference Range Interpretation [...] by the National Kidney Foundation,http ://nkd ep.nih.gov [id number] 23:33:00 Test Item Value Reference Range Interpretation [...] g/dL 0.00-0.01 H code = ETOHU) Urinalysis [id number] 23:26:00 Test Item Value Reference Range Interpretation Comments Color (test code = COLOR) Yellow Yellow,Straw,Pl N yellow Clarity (test code = Clear Clear N CLAR) Specific [place] (test 1.014 1.001-1.035 N code = SPGR) [...] code = None /HPF BACT) CBC with [id number] 23:16:00 Test Item Value Reference Range Interpretation [...] code = ALYMPH) 3.6 K/cumm 0.5-4.6 N [place] Abs (test code = AMONO) 0.5 K/cumm 0.0-1.2 N Eos Abs (test code = AEOS) 0.15 K/cumm 0.00-0.74 N Baso Abs (test code = ABASO) 0.1 K/cumm 0.00-0.21 N POC Glucose, [id number] 12:49:00 Test Item Value Reference Range Interpretation Comments POC Glucose (test 314 mg/dL 70-115 H If you con cylinder filler your code = POCGLUC) patient crit ically ill, the Ricky Accu- Chek InformII meters hould not be used for Glu cose determinations. Draw a venous Glucose and send to the Main Lab for Analysis. Comprehensive Metabolic [id number] 10:37:00 Test Item Value Reference Range Interpretation [...] the National Kidney Foundation,http ://nkd ep.nih.gov Urinalysis [id number] 10:35:00 Test Item Value Reference Range Interpretation Comments Color (test code = COLOR) Yellow Yellow,Straw,Pl N yellow Clarity (test code = Clear Clear N CLAR) Specific [place] (test 1.036 1.001-1.035 H code = SPGR) [...] Bacteria (test code = None /HPF BACT) [id number] 10:31:00 Test Item Value Reference Range Interpretation [...] 0.00-0.01 N code = ETOHU) CBC with [id number] 10:30:00 Test Item Value Reference Range Interpretation [...] code = ALYMPH) 2.3 K/cumm 0.5-4.6 N [place] Abs (test code = AMONO) 0.4 K/cumm 0.0-1.2 N Eos Abs (test code = AEOS) 0.08 K/cumm 0.00-0.74 N Baso Abs (test code = ABASO) 0.1 K/cumm 0.00-0.21 N Glycosylated [id number] 12:49:00 Test Item Value Reference Range Interpretation Comments HBA1c (test code = HBA1C) 11.8 % 4.8-5.9 H RPR, [id number] 12:31:00 Test Item Value Reference Range Interpretation Comments RPR (test code = RPR) Non-Reactive Non-Reactive N Thyroid Stimulating Hormone (TSH)2017-02-19 09:41:00 Test Item Value Reference Range Interpretation Comments TSH (test code = TSH) 1.85 mIU/mL 0.270-4.200 N Lipid [id number] 09:36:00 Test Item Value Reference Range Interpretation Comments Cholesterol (test 170 mg/dL 0-200 N code = CHOL) Triglycerides (test 107 mg/dL 9-200 N code = TRIG) HDL (test code = 40 mg/dL 40-60 N HDL) Chol/HDL (test code 4.3 Ratio 0.0-5.0 N = CHOLPHDL) LDL, Calculated 109 0-130 N (NOTE)RISK O F HEART (test code = LDLC) DISEASEPu blished by [place] Heart AssociationAnal yte Optim al Boderline Increased RiskC HOL <200 200-239 >240TRI G <150 150-199 >200HDL Male: >60 <40HDL Female: >60 <50 LDL < 100 130-15 9 >160 LDL NEAR OPTIMAL IS 100- 129 VLDL (test code = 21 mg/dL 5-40 N VLDL) LDL/HDL (test code = 3 LDLPHDL) POC Glucose, [id number] 06:04:00 Test Item Value Reference Range Interpretation Comments POC Glucose (test 256 mg/dL 70-115 H If you con cylinder filler your code = POCGLUC) patient crit ically ill, the Ricky Accu- Chek InformII meters hould not be used for Glu cose determinations. Draw a venous Glucose and send to the Main Lab for Analysis. POC Glucose, [id number] 22:06:00 Test Item Value Reference Range Interpretation Comments POC Glucose (test 226 mg/dL 70-115 H If you con cylinder filler your code = POCGLUC) patient crit ically ill, the Ricky Accu- Chek InformII meters hould not be used for Glu cose determinations. Draw a venous Glucose and send to the Main Lab for Analysis. POC Glucose, [id number] 18:18:00 Test Item Value Reference Range Interpretation Comments POC Glucose (test 192 mg/dL 70-115 H If you con cylinder filler your code = POCGLUC) patient crit ically ill, the Ricky Accu- Chek InformII meters hould not be used for Glu cose determinations. Draw a venous Glucose and send to the Main Lab for Analysis. POC Glucose, [id number] 14:44:00 Test Item Value Reference Range Interpretation Comments POC Glucose (test 263 mg/dL 70-115 H If you con cylinder filler your code = POCGLUC) patient crit ically ill, the Ricky Accu- Chek InformII meters hould not be used for Glu cose determinations. Draw a venous Glucose and send to the Main Lab for Analysis. POC Glucose, [id number] 12:01:00 Test Item Value Reference Range Interpretation Comments POC Glucose (test 277 mg/dL 70-115 H If you con cylinder filler your code = POCGLUC) patient crit ically ill, the Ricky Accu- Chek InformII meters hould not be used for Glu cose determinations. Draw a venous Glucose and send to the Main Lab for Analysis. Comprehensive Metabolic [id number] 12:00:00 Test Item Value Reference Range Interpretation [...] the National Kidney Foundation,http ://nkd ep.nih.gov Alcohol/Ethanol, [id number] 12:00:00 Test Item Value Reference Range Interpretation Comments Alcohol, Ethyl <0.01 g/dL 0.00-0.01 N Intoxicated 0.080 (test code = ETOH) g/dL or m ore Urinalysis [id number] 11:55:00 Test Item Value Reference Range Interpretation Comments Color (test code = COLOR) Yellow Yellow,Straw,Pl N yellow Clarity (test code = Clear Clear N CLAR) Specific [place] (test 1.035 1.001-1.035 N code = SPGR) [...] Bacteria (test code = Few /HPF BACT) [id number] 11:53:00 Test Item Value Reference Range Interpretation [...] = THC) Negative Negative N CBC with [id number] 11:33:00 Test Item Value Reference Range Interpretation [...] code = ALYMPH) 1.9 K/cumm 0.5-4.6 N [place] Abs (test code = AMONO) 1.0 K/cumm 0.0-1.2 N Eos Abs (test code = AEOS) 0.08 K/cumm 0.00-0.74 N Baso Abs (test code = ABASO) 0.0 K/cumm 0.00-0.21 N Alcohol/Ethanol, [id number] 22:23:00 Test Item Value Reference Range Interpretation Comments Alcohol, Ethyl <0.01 g/dL 0.00-0.01 N Intoxicated 0.080 (test code = ETOH) g/dL or m [facility] Comprehensive Metabolic [id number] 22:23:00 Test Item Value Reference Range Interpretation [...] is not provided , and the patient isAfangie-Amrandall can, multiply by 1.2 12. If sex [...] by the National Kidney Foundation,http ://nkd ep.nih.gov [id number] 22:23:00 Test Item Value Reference Range Interpretation [...] code = THC) Negative Negative N Urinalysis [id number] 22:13:00 Test Item Value Reference Range Interpretation Comments Color (test code = COLOR) Yellow Yellow,Straw,Pl N yellow Clarity (test code = Clear Clear N CLAR) Specific [place] (test 1.029 1.001-1.035 N code = SPGR) [...] code = None /HPF BACT) CBC with [id number] 22:00:00 Test Item Value Reference Range Interpretation [...] code = ALYMPH) 0.9 K/cumm 0.5-4.6 N [place] Abs (test code = AMONO) 0.3 K/cumm 0.0-1.2 N Eos Abs (test code = AEOS) 0.02 K/cumm 0.00-0.74 N Baso Abs (test code = ABASO) 0.0 K/cumm 0.00-0.21 N POC Glucose, [id number] 05:15:00 Test Item Value Reference Range Interpretation Comments POC Glucose (test 270 mg/dL 70-115 H Notify RN or MDIf you code = POCGLUC) consider you r patient critically ill, the Ricky Accu-Chek InformII metershould not be used for Glucose determinations. Draw a venous Glucose and send to the Main Lab for Analysis. POC Glucose, [id number] 19:44:00 Test Item Value Reference Range Interpretation Comments POC Glucose (test 338 mg/dL 70-115 H Notify RN or MDIf you code = POCGLUC) consider you r patient critically ill, the Ricky Accu-Chek InformII metershould not be used for Glucose determinations. Draw a venous Glucose and send to the Main Lab for Analysis. POC Glucose, [id number] 15:20:00 Test Item Value Reference Range Interpretation Comments POC Glucose (test 338 mg/dL 70-115 H Notify RN or MDIf you code = POCGLUC) consider you r patient critically ill, the Ricky Accu-Chek InformII metershould not be used for Glucose determinations. Draw a venous Glucose and send to the Main Lab for Analysis. POC Glucose, [id number] 13:31:00 Test Item Value Reference Range Interpretation Comments POC Glucose (test code = 443 mg/dL 70-115 HH Not holden RN or MD POCGLUC) POC Glucose, [id number] 10:39:00 Test Item Value Reference Range Interpretation Comments POC Glucose (test code = 560 mg/dL 70-115 HH Not holden RN or MD POCGLUC) Thyroid Stimulating Hormone (TSH)2017-02-14 08:52:00 Test Item Value Reference Range Interpretation Comments TSH (test code = TSH) 1.40 mIU/mL 0.270-4.200 N Comprehensive Metabolic [id number] 08:31:00 Test Item Value Reference Range Interpretation [...] the National Kidney Foundation,http ://nkd ep.nih.gov Lipid [id number] 08:31:00 Test Item Value Reference Range Interpretation [...] (test code = LDLC) DISEASEPu blished by [place] Heart AssociationAnal yte Optim al Boderline Increased RiskC HOL <200 200-239 >240TRI G <150 150-199 >200HDL Male: >60 <40HDL Female: >60 <50 LDL < 100 130-15 9 >160 LDL NEAR OPTIMAL IS 100- 129 VLDL (test code = 69 mg/dL 5-40 H VLDL) LDL/HDL (test code = 4 LDLPHDL) RPR, [id number] 06:26:00 Test Item Value Reference Range Interpretation Comments RPR (test code = RPR) Non-Reactive Non-Reactive N Thyroid Stimulating Hormone (TSH)2017-02-13 23:13:00 Test Item Value Reference Range Interpretation Comments TSH (test code = TSH) 2.10 mIU/mL 0.270-4.200 N Lipid [id number] 23:13:00 Test Item Value Reference Range Interpretation Comments Cholesterol (test 255 mg/dL 0-200 H code = CHOL) Triglycerides (test 559 mg/dL 9-200 H code = TRIG) HDL (test code = 32 mg/dL 40-60 L HDL) Chol/HDL (test code 8.0 Ratio 0.0-5.0 H = CHOLPHDL) LDL, Calculated No Calc 0-130 N (NOTE)RISK O F HEART (test code = LDLC) DISEASEPu blished by [place] Heart AssociationAnal yte Optim al Boderline Increased RiskC HOL <200 200-239 >240TRI G <150 150-199 >200HDL Male: >60 <40HDL Female: >60 <50 LDL < 100 130-15 9 >160 LDL NEAR OPTIMAL IS 100-129\\LIPIDNC VLDL (test code = No Calc 5-40 N \\LIPIDNC VLDL) mg/dL LDL/HDL (test code = No Calc \\LIPIDN C LDLPHDL) POC Glucose, [id number] 16:09:00 Test Item Value Reference Range Interpretation Comments POC Glucose (test 340 mg/dL 70-115 H If you con cylinder filler your code = POCGLUC) patient crit ically ill, the Ricky Accu- Chek InformII meters hould not be used for Glu cose determinations. Draw a venous Glucose and send to the Main Lab for Analysis. POC Glucose, [id number] 11:08:00 Test Item Value Reference Range Interpretation Comments POC Glucose (test 336 mg/dL 70-115 H If you con cylinder filler your code = POCGLUC) patient crit ically ill, the Ricky Accu- Chek InformII meters hould not be used for Glu cose determinations. Draw a venous Glucose and send to the Main Lab for Analysis. POC Glucose, [id number] 08:05:00 Test Item Value Reference Range Interpretation Comments POC Glucose (test 325 mg/dL 70-115 H If you con cylinder filler your code = POCGLUC) patient crit ically ill, the Ricky Accu- Chek InformII meters hould not be used for Glu cose determinations. Draw a venous Glucose and send to the Main Lab for Analysis. POC Glucose, [id number] 06:27:00 Test Item Value Reference Range Interpretation Comments POC Glucose (test 338 mg/dL 70-115 H If you con cylinder filler your code = POCGLUC) patient crit ically ill, the Ricky Accu- Chek InformII meters hould not be used for Glu cose determinations. Draw a venous Glucose and send to the Main Lab for Analysis. POC Glucose, [id number] 05:02:00 Test Item Value Reference Range Interpretation Comments POC Glucose (test code = 461 mg/dL 70-115 HH Not holden ZELAYA or POCGLUC) Comprehensive Metabolic [id number] 23:52:00 Test Item Value Reference Range Interpretation [...] the National Kidney Foundation,http ://nkde p.nih.gov Urinalysis [id number] 23:37:00 Test Item Value Reference Range Interpretation Comments Color (test code = COLOR) Yellow Yellow,Straw,Pl N yellow Clarity (test code = Clear Clear N CLAR) Specific [place] (test 1.027 1.001-1.035 N code = SPGR) [...] Bacteria (test code = None /HPF BACT) [id number] 23:36:00 Test Item Value Reference Range Interpretation [...] 0.00-0.01 N code = ETOHU) CBC with [id number] 23:10:00 Test Item Value Reference Range Interpretation [...] code = ALYMPH) 3.2 K/cumm 0.5-4.6 N [place] Abs (test code = AMONO) 0.4 K/cumm 0.0-1.2 N Eos Abs (test code = AEOS) 0.23 K/cumm 0.00-0.74 N Baso Abs (test code = ABASO) 0.1 K/cumm 0.00-0.21 N POC Glucose, [id number] 02:01:00 Test Item Value Reference Range Interpretation Comments POC Glucose (test code = 410 mg/dL 70-115 HH Not holden RN or POCGLUC) Comprehensive Metabolic [id number] 23:58:00 Test Item Value Reference Range Interpretation [...] the National Kidney Foundation,http ://nkd ep.nih.govverp rblv [id number] 23:28:00 Test Item Value Reference Range Interpretation [...] g/dL 0.00-0.01 N code = ETOHU) Urinalysis [id number] 23:27:00 Test Item Value Reference Range Interpretation Comments Color (test code = COLOR) Straw Yellow,Straw,Pl N yellow Clarity (test code = Clear Clear N CLAR) Specific [place] (test 1.031 1.001-1.035 N code = SPGR) [...] code = None /HPF BACT) CBC with [id number] 23:18:00 Test Item Value Reference Range Interpretation [...] code = ALYMPH) 2.9 K/cumm 0.5-4.6 N [place] Abs (test code = AMONO) 0.5 K/cumm 0.0-1.2 N Eos Abs (test code = AEOS) 0.17 K/cumm 0.00-0.74 N Baso Abs (test code = ABASO) 0.1 K/cumm 0.00-0.21 N Urinalysis [id number] 06:46:00 Test Item Value Reference Range Interpretation Comments Color (test code = COLOR) Straw Yellow,Straw,Pl N yellow Clarity (test code = Clear Clear N CLAR) Specific [place] (test 1.032 1.001-1.035 N code = SPGR) [...] Bacteria (test code = Occ /HPF BACT) [id number] 06:07:00 Test Item Value Reference Range Interpretation [...] 0.00-0.01 N code = ETOHU) Comprehensive Metabolic [id number] 05:33:00 Test Item Value Reference Range Interpretation [...] is not provided , and the patient isAfangie-Amrandall can, multiply by 1.2 12. If sex [...] National Kidney Foundation,http ://nkd ep.nih.gov CBC with [id number] 05:08:00 Test Item Value Reference Range Interpretation [...] code = ALYMPH) 1.4 K/cumm 0.5-4.6 N [place] Abs (test code = AMONO) 0.5 K/cumm 0.0-1.2 N Eos Abs (test code = AEOS) 0.06 K/cumm 0.00-0.74 N Baso Abs (test code = ABASO) 0.1 K/cumm 0.00-0.21 N Basic Metabolic [id number] 21:36:00 Test Item Value Reference Range Interpretation [...] National Kidney Foundation,http ://nkd ep.nih.gov Basic Metabolic [id number] 20:55:00 Test Item Value Reference Range Interpretation [...] National Kidney Foundation,http ://nkd ep.nih.gov POC Glucose, [id number] 20:43:00 Test Item Value Reference Range Interpretation Comments POC Glucose (test 316 mg/dL 70-115 H Notify RN or MDIf you code = POCGLUC) consider you r patient critically ill, the Ricky Accu-Chek InformII metershould not be used for Glucose determinations. Draw a venous Glucose and send to the Main Lab for Analysis. POC Glucose, [id number] 20:12:00 Test Item Value Reference Range Interpretation Comments POC Glucose (test 309 mg/dL 70-115 H Notify RN or MDIf you code = POCGLUC) consider you r patient critically ill, the Ricky Accu-Chek InformII metershould not be used for Glucose determinations. Draw a venous Glucose and send to the Main Lab for Analysis. POC Glucose, [id number] 18:58:00 Test Item Value Reference Range Interpretation Comments POC Glucose (test 339 mg/dL 70-115 H Notify RN or MDIf you code = POCGLUC) consider you r patient critically ill, the Ricky Accu-Chek InformII metershould not be used for Glucose determinations. Draw a venous Glucose and send to the Main Lab for Analysis. Urinalysis [id number] 18:17:00 Test Item Value Reference Range Interpretation Comments Color (test code = COLOR) Straw Yellow,Straw,Pl N yellow Clarity (test code = Clear Clear N CLAR) Specific [place] (test 1.028 1.001-1.035 N code = SPGR) [...] code = Few /HPF BACT) Comprehensive Metabolic [id number] 17:27:00 Test Item Value Reference Range Interpretation [...] (es timated code = GFR) mL/min/1.73m2 Glomerular Suorav tration Rate) is an est imated value,calculate [...] National Kidney Foundation,http ://nkd ep.nih.gov CBC with [id number] 16:50:00 Test Item Value Reference Range Interpretation [...] code = ALYMPH) 2.0 K/cumm 0.5-4.6 N [place] Abs (test code = AMONO) 0.6 K/cumm 0.0-1.2 N Eos Abs (test code = AEOS) 0.09 K/cumm 0.00-0.74 N Baso Abs (test code = ABASO) 0.1 K/cumm 0.00-0.21 N [id number] 16:31:00 Test Item Value Reference Range Interpretation [...]
[2020-09-13 15:39] LABS: Absolute Lymphocytes (CBC) 1.9 K/uL (0.7-4.9); Hematocrit 42.7 % (39.6-49.0); Lymphocytes % 31.3 % (15.3-44.8); MPV 8.8 fL (7.6-11.3); RBC Red Blood Cell Count 4.63 M/uL (4.33-5.43)
[2020-09-13] MEDS ORDERED: NA CHLORIDE 0.9% 1,000 ML ONE (15:53)
[2020-09-13] MEDS ORDERED: INSULIN -REGULAR HUMAN 50 UNIT/0.5 ML ML ONE (15:53)
[2020-09-13 15:56] LABS: Potassium 3.7 mmol/L (3.5-5.1)
--- NOTE | 2020-09-13 15:58 | RAD REPORT ---
EXAM DESCRIPTION: US - Abdomen Exam Limited - 09/13/2020 3:45 pm CLINICAL HISTORY: abnormal LFTs Abdominal pain COMPARISON: No comparisons FINDINGS: The gallbladder demonstrates small 5 mm polyp along the gallbladder wall. No gallstones ar e evident. No pericholecystic fluid or gallbladder wall thickening. The common bile duct is normal me asuring 3 mm. The liver demonstrates mild fatty liver. IMPRESSION: 5 mm gallbladder polyp. Mild fatty liver.
--- NOTE | 2020-09-13 16:23 | RAD REPORT ---
EXAM DESCRIPTION: CTAbdomen Pelvis W Contrast - 09/13/2020 4:13 pm CLINICAL HISTORY: Abdominal pain. hyperglycemia, abnormal LFts COMPARISON: Abdomen Exam Limited dated 09/13/2020 TECHNIQUE: Biphasic CT imaging of the abdomen and pelvis was performed with 100 ml non-ionic IV cont rast. All CT scans are performed using dose optimization technique as appropriate and may include automated exposure control or mA/KV adjustment according to patient size. FINDINGS: 7 mm noncalcified pulmonary nodule is seen in the right lung base. The liver, spleen, pancreas, adrenal glands and kidneys are within normal limits. No bowel obstruction, free air, free fluid or abscess. There is a significant amount stool retained i n the colon. The appendix is normal. No evidence of significant lymphadenopathy. No suspicious bony findings. IMPRESSION: No acute intra-abdominal or pelvic finding. Prominent fecal retention. 7 mm noncalcified pulmonary nodule in the right lung base. Recommend follow-up CT chest in 6 months f or further assessment.
--- NOTE | 2020-09-13 17:07 | ER ---
Nurse's Notes [facility] Name: Bryn Camargo Age: 44 yrs Sex: Male : 1975 Arrival Date: 09/13/2020 Time: 15:01 Bed 20 Private MD: Diagnosis: Suicidal ideations-resolved;Schizophrenia;Hallucinations, unspecified-Command Auditory;Type 2 diabetes mellitus Presentation: 09/13 15:03 Chief complaint: EMS states: pt just left AMA and called 911 because his BS is still sv high and he is still hearing voices. Onset of symptoms was September 13, 2020. 15:03 Method Of Arrival: EMS: [facility] sv 15:03 Acuity: FLETCHER 3 sv 15:14 Coronavirus screen: Client denies travel out of the [place] in the last 14 days. At this ll1 time, the client does not indicate any symptoms associated with coronavirus-19. Ebola Screen: Patient denies travel to an Ebola-affected area in the 21 days before illness onset. Initial Sepsis Screen: Does the patient meet any 2 criteria? HR > 90 bpm. No. Patient's initial sepsis screen is negative. Does the patient have a suspected source of infection? No. Patient's initial sepsis screen is negative. Risk Assessment: Do you want to hurt yourself or someone else? Patient reports no desire to harm self or others. Triage Assessment: 15:19 General: Appears in no apparent distress. Behavior is calm, cooperative, appropriate ll1 for age. General: Auditory hallucinations, denies SI and HI. Pain: Denies pain. Historical: - Allergies: 15:05 No Known Allergies; sv - PMHx: 15:05 Anxiety; Depression; Schizophrenia; sv - PSHx: 15:05 Appendectomy; testical SX; sv - Immunization history:: Flu vaccine is not up to date. - Social history:: Smoking status: Patient reports the use of cigarette tobacco products, smokes one-half pack cigarettes per day. - Family history:: not pertinent. - Hospitalizations: : No recent hospitalization is reported. Screenin:19 Abuse screen: Denies threats or abuse. Nutritional screening: No deficits noted. ll1 Tuberculosis screening: No symptoms or risk factors identified. Fall Risk Mental Status- Overestimates/Forgets Limitations (15 pts.). Total Phillips Fall Scale indicates No Risk (0-24 pts). Assessment: 16:15 Reassessment: No changes from previously documented assessment. Patient and/or family ll1 updated on plan of care and expected duration. Pain level reassessed. Patient is alert, oriented x 3, equal unlabored respirations, skin warm/dry/pink. 17:15 Reassessment: No changes from previously documented assessment. Patient and/or family ll1 updated on plan of care and expected duration. Pain level reassessed. Patient is alert, oriented x 3, equal unlabored respirations, skin warm/dry/pink. 18:15 Reassessment: No changes from previously documented assessment. Patient and/or family ll1 updated on plan of care and expected duration. Pain level reassessed. Patient is alert, oriented x 3, equal unlabored respirations, skin warm/dry/pink. 19:43 General: Appears in no apparent distress. Behavior is calm, cooperative, appropriate ea for age. Pain: Denies pain. Neuro: Level of Consciousness is awake, alert, obeys commands, Oriented to person, place, time. Cardiovascular: Patient's skin is warm and dry. Derm: Skin is pink, warm \\T\\ dry. 23:27 Reassessment: Nurse to nurse given to HENRY Bryan with [facility]. Will call back for Doc to Doc report and then give administrative approval, but states patient cannot not be transferred to facility until 9 am as the intake desk is not available until 1000. 09/14 01:03 Reassessment: Patient and/or family updated on plan of care and expected duration. Pain ea level reassessed. Pt resting with eyes closed, respirations even and unlabored, chest expansions even and symmetrical. 04:27 Reassessment: Patient and/or family updated on plan of care and expected duration. Pain ea level reassessed. Pt resting with eyes closed, respirations even and unlabored, chest expansions even and symmetrical. 05:19 Reassessment: Patient and/or family updated on plan of care and expected duration. Pain ea level reassessed. Patient is alert, oriented x 3, equal unlabored respirations, skin warm/dry/pink. Discharge instruction given to patient verbalized the understanding of instruction. Vital Signs: 09/13 15:18 BP 136 / 71; Pulse 92; Resp 16; Temp 97.8; Pulse Ox 100% on R/A; Pain 0/10; ll1 18:51 BP 107 / 76; Pulse 78; Resp 15; Pulse Ox 100% on R/A; ll1 08 05:06 BP 120 / 76; Pulse 70; Resp 18; Pulse Ox 99% ; ea ED Course: 09/13 15:01 Patient arrived in ED. sv 15:04 Triage completed. sv 15:14 Arm band placed on Patient placed in an exam room, on a stretcher. ll1 15:18 Suad García, HENRY is Primary Nurse. ll1 15:19 Valentin Aguilera MD is Attending Physician. rn 15:20 Patient has correct armband on for positive identification. Bed in low position. Call ll1 light in reach. Side rails up X 1. Pulse ox on. NIBP on. 15:20 Inserted saline lock: 22 gauge in right antecubital area, using aseptic technique. ll1 Blood collected. 15:32 contacted [facility] to have pt evaluated by screener. bd 15:45 US Abdomen Limited In Process Unspecified. EDMS 16:13 CT Abd/Pelvis - IV Contrast Only In Process Unspecified. EDMS 17:59 Basic Metabolic Panel Sent. sv 17:59 CBC with Diff Sent. sv 18:09 screener did not screen pt stated that "pt was not suicidal,and pt does not meet bd criteria for screening". 18:11 faxed chart to [facility], [facility], and [facility]. bd 19:15 Attending Physician role handed off by Valentin Aguilera MD [facility] 19:15 Alvarez Dueñas MD is Attending Physician. [facility] 09/14 05:03 George Max MD is Referral Physician. [facility] 05:05 No provider procedures requiring assistance completed. IV discontinued, intact, ea bleeding controlled, No redness/swelling at site. Pressure dressing applied. Administered Medications: 09/13 15:36 Drug: NS 0.9% 1000 ml Route: IV; Rate: 1000 ml; Site: right antecubital; ll1 17:30 Follow up: Response: No adverse reaction; IV Status: Completed infusion; IV Intake: ll1 1000ml 15:37 Drug: Insulin Regular Human 10 units {Co-Signature: bp (Christ Sosa RN).} Route: ll1 Sub-Q; Site: left lower abdomen; 17:30 Follow up: Response: No adverse reaction; RASS: Alert and Calm (0) ll1 15:37 Drug: Insulin Regular Human 5 units {Co-Signature: bp (Christ Sosa RN).} Route: IVP; ll1 Site: right antecubital; 17:30 Follow up: Response: No adverse reaction ll1 Intake: 17:30 IV: 1000ml; Total: 1000ml. ll1 Outcome: 17:07 ER care complete, transfer ordered by . henry 09/14 05:04 Discharge ordered by MD. buenrostro 05:19 Discharged to home ambulatory. raymond 05:19 Condition: stable 05:19 Discharge instructions given to patient, Instructed on discharge instructions, follow up and referral plans. Demonstrated understanding of instructions, follow-up care. 05:20 Patient left the ED. ea Signatures: Dispatcher [employer] EDMS Dania Villarreal Stephanie, RN RN Alvarez [place] MD MD cha Nieto, Roman, MD MD rn Smirch, Shelby, RN RN ss Antunez, Elena, RN RN ea Lewis, Lynsay, RN RN [facility] Christ Sosa RN bp
--- NOTE | 2020-09-13 17:08 | EDPHYS ---
Physician Documentation [facility] Name: Bryn Camargo Age: 44 yrs Sex: Male : 1975 Arrival Date: 09/13/2020 Time: 15:01 Bed 20 Private MD: ED Physician Alvarez Dueñas HPI: 09/13 15:53 This 44 yrs old Male presents to ER via EMS with complaints of High Blood rn Sugar, suicidal ideations, Auditory hallucinations. 15:53 The patient presents to the emergency department with anxiety, depression, psychosis, rn suicide ideation. Onset: The symptoms/episode began/occurred at an unknown time. Severity of symptoms: At their worst the symptoms were moderate in the emergency department the symptoms are unchanged. The patient has experienced similar episodes in the past. The patient has been recently seen at the [facility] Emergency Department. Just left ER AMA after being seen for auditory hallucinations, and high blood sugar, did not want to stay and denies suicidal ideations at that time. Came in by another EMS service, this time for worsening auditory hallucinations that are telling him to kill himself. Did not take anything or attempt suicide. . Historical: - Allergies: 15:05 No Known Allergies; sv - PMHx: 15:05 Anxiety; Depression; Schizophrenia; sv - PSHx: 15:05 Appendectomy; testical SX; sv - Immunization history:: Flu vaccine is not up to date. - Social history:: Smoking status: Patient reports the use of cigarette tobacco products, smokes one-half pack cigarettes per day. - Family history:: not pertinent. - Hospitalizations: : No recent hospitalization is reported. ROS: 15:53 Constitutional: Negative for fever, chills, and weight loss, Eyes: Negative for injury, rn pain, redness, and discharge, Neck: Negative for injury, pain, and swelling, Cardiovascular: Negative for chest pain, palpitations, and edema, Respiratory: Negative for shortness of breath, cough, wheezing, and pleuritic chest pain, Abdomen/GI: Negative for abdominal pain, nausea, vomiting, diarrhea, and constipation, Back: Negative for injury and pain, MS/Extremity: Negative for injury and deformity, Skin: Negative for injury, rash, and discoloration, Neuro: Negative for headache, numbness, tingling, and seizure, Psych: Negative for homicidal ideation Exam: 15:53 Constitutional: Disheveled patient. No acute distress. Head/Face: Normocephalic, rn atraumatic. Eyes: Periorbital areas with no swelling, redness, or edema. ENT: Poor dentition Cardiovascular: Regular rate and rhythm. No pulse deficits. Respiratory: No increased work of breathing, no retractions or nasal flaring. Abdomen/GI: Soft, non-tender Skin: Warm, dry MS/ Extremity: Pulses equal, no cyanosis. Neurovascular intact. Full, normal range of motion. Equal circumference. Neuro: Awake and alert, GCS 15, oriented to person, place, time, and situation. Cranial nerves II-XII grossly intact. Motor strength 5/5 in all extremities. Sensory grossly intact. Cerebellar exam normal. Normal gait. Vital Signs: 15:18 BP 136 / 71; Pulse 92; Resp 16; Temp 97.8; Pulse Ox 100% on R/A; Pain 0/10; ll1 18:51 BP 107 / 76; Pulse 78; Resp 15; Pulse Ox 100% on R/A; ll1 08 05:06 BP 120 / 76; Pulse 70; Resp 18; Pulse Ox 99% ; ea MDM: 09/13 15:19 Patient medically screened. rn 17:05 Differential diagnosis: psychosis secondary to non-compliance, suicidal ideations. Data rn reviewed: vital signs, nurses notes, lab test result(s), radiologic studies, CT scan, ultrasound, and as a result, I will admit patient. Counseling: I had a detailed discussion with the patient and/or guardian regarding: the historical points, exam findings, and any diagnostic results supporting the discharge/admit diagnosis, lab results, radiology results, the need to transfer to another facility, [facility] does not immediately have the required specialist. Response to treatment: the patient's symptoms have mildly improved after treatment, and as a result, I will admit patient. ED course: Glucose down < 250, patient wants to eat, stable vitals, no acute findings of CT abdomen or u/s abdomen, only shows fatty liver. . 09/13 15:22 Order name: CBC with Diff rn 09/13 15:22 Order name: Basic Metabolic Panel rn 09/13 15:23 Order name: CBC with Automated Diff; Complete Time: 16:32 EDMS 09/13 15:23 Order name: Basic Metabolic Panel; Complete Time: 16:32 EDMT 09/13 16:57 Order name: Glucose, Ancillary Testing EDMT 09/13 15:22 Order name: US Abdomen Limited; Complete Time: 16:32 rn 09/13 15:22 Order name: CT Abd/Pelvis - IV Contrast Only; Complete Time: 16:32 rn 09/13 19:17 Order name: Alcohol Level [facility] 09/13 19:17 Order name: LFT's [facility] 09/13 19:35 Order name: SARS-COV-2 RT PCR EDMT 09/13 23:41 Order name: Glucose, Ancillary Testing EDMT 09/13 15:22 Order name: IV Start; Complete Time: 15:23 rn 09/13 19:17 Order name: Misc. Order: mild scale; Complete Time: 23:54 [facility] Administered Medications: 15:36 Drug: NS 0.9% 1000 ml Route: IV; Rate: 1000 ml; Site: right antecubital; 1 17:30 Follow up: Response: No adverse reaction; IV Status: Completed infusion; IV Intake: ll1 1000ml 15:37 Drug: Insulin Regular Human 10 units {Co-Signature: bp (Christ Sosa RN).} Route: ll1 Sub-Q; Site: left lower abdomen; 17:30 Follow up: Response: No adverse reaction; RASS: Alert and Calm (0) ll 15:37 Drug: Insulin Regular Human 5 units {Co-Signature: bp (Christ Sosa RN).} Route: IVP; ll1 Site: right antecubital; 17:30 Follow up: Response: No adverse reaction 1 Disposition: 09/14/20 05:04 Discharged to Home. Impression: Suicidal ideations - resolved, Schizophrenia, Hallucinations, unspecified - Command Auditory, Type 2 diabetes mellitus. - Condition is Stable. - Discharge Instructions: Schizophrenia, Suicidal Feelings: How to Help Yourself, Helping Someone Who is Suicidal, Tobacco Use Disorder. - Medication Reconciliation Form, Thank You Letter, Antibiotic Education, Prescription Opioid Use form. - Follow up: Private Physician; When: 2 - 3 days; Reason: Recheck today's complaints, Continuance of care, Re-evaluation by your physician. Follow up: George Max MD; When: 2 - 3 days; Reason: Recheck today's complaints, Re-evaluation by your physician. - Problem is new. - Symptoms have improved. Signatures: Dispatcher [employer] [facility] Shirley Keene RN Alvarez Murillo MD MD cha Nieto, Roman, MD MD rn Antunez, Elena, RN RN ea Lewis, Lynsay, RN RN ll1 Christ Sosa RN bp Corrections: (The following items were deleted from the chart) 18:41 17:25 CORONAVIRUS+MR.PAU.BRShelby ordered. [facility] EDMT 09/14 05:02 06 17:07 09/13/2020 17:07 Transfer ordered to [facility]. Diagnosis is Suicidal porter ideations; Schizophrenia, unspecified; Command auditory hallucinations; Hyperglycemia, unspecified. Reason for transfer: Higher level of care. Accepting physician is . Condition is Stable. Problem is an ongoing problem. Symptoms have improved. rn 09/14 05:04 05:04 09/14/2020 05:04 Discharged to Home. Impression: Suicidal ideations - resolved; porter Schizophrenia; Hallucinations, unspecified - Command Auditory. Condition is Stable. Forms are Medication Reconciliation Form, Thank You Letter, Antibiotic Education, Prescription Opioid Use. Follow up: Private Physician; When: 2 - 3 days; Reason: Recheck today's complaints, Continuance of care, Re-evaluation by your physician. Follow up: George Max; When: 2 - 3 days; Reason: Recheck today's complaints, Re-evaluation by your physician. Problem is new. Symptoms have improved. oprter 05:20 05:04 09/14/2020 05:04 Discharged to Home. Impression: Suicidal ideations - resolved; ea Schizophrenia; Hallucinations, unspecified - Command Auditory; Type 2 diabetes mellitus. Condition is Stable. Forms are Medication Reconciliation Form, Thank You Letter, Antibiotic Education, Prescription Opioid Use. Follow up: Private Physician; When: 2 - 3 days; Reason: Recheck today's complaints, Continuance of care, Re-evaluation by your physician. Follow up: George Max; When: 2 - 3 days; Reason: Recheck today's complaints, Re-evaluation by your physician. Problem is new. Symptoms have improved. porter
[2020-09-13 20:10] LABS: Albumin 3.3 g/dL (3.4-5.0); Bilirubin Direct 0.1 mg/dL (0-0.2); Bilirubin Total 0.4 mg/dL (0.2-1.0); Protein, Total 7.2 g/dL (6.4-8.2)
[2020-09-14 05:27] VITALS: TEMP 97.8
[2020-09-14 05:31] VITALS: BP 120/76; O2SAT 99
== END 2020-09-14 05:20 | disposition home or self-care (01) ==
LOC: ER 14:58
DX: F20.9 Schizophrenia, unspecified (principal); E11.9 Type 2 diabetes mellitus without complications; F17.210 Nicotine dependence, cigarettes, uncomplicated; Z20.822 Contact with and (suspected) exposure to COVID-19
CPT/HCPCS: 85025; 80048; 36415; 80320; 82947 ×2; 80076; 74177; 76705; U0003; Q9967; J7030; 96361; 96372; 96374; 99284

== ENCOUNTER 2020-09-14 10:34 | Emergency (ER) | payer MEDICAID ==
--- OUTSIDE RECORDS SUMMARY | 2020-09-14 10:54 | XMS REPORT | Continuity of Care Document ---
:1975 Author Organization [facility] t Address [address] [place] [address] Care Team Providers Name Role Phone PCP [...] Date Expiration Date Sour ce Number MOLINAMOLINA [id number] 2016 [facility] STAR+PLUS 00:00:00 Method ist [id number] 17-PresentO Advance Directives Directive Decision Effective Date [...] condition condition Problem Condition [facility] Allergies, Adverse Reactions, Alerts Allergy Allergy Status Severity Reaction(s) Onset Inactive Treating Comm ents Source Name Type Date Date Clinician No Known DA Active U 2020-0 [facility]-28 [place] 00:00: e 00 [facility] No Known DA [facility]: s 00 No Known DA Active U 2020-1 [facility] Allergie 1-11 [place] 00:00: e 00 [facility] No Known DA Active U 2020-0 [facility] Allergie 2-10 [place] s 00:00: d 00 [facility] No Known DA Active U 2020-0 [facility] Allergie 2-02 Clear s 00:00: Carrillo 00 [facility] No Known DA Active U 2019-1 [facility] Allergie 2-10 [place] 00:00: d 00 [facility] No Known DA Active U 2019-1 [facility] Allergie 0-27 Clear s 00:00: Carrillo 00 [facility] No Known DA Active U 2019-1 [facility] Allergie 0-23 Clear s 00:00: Carrillo 00 [facility] No Known DA Active U 2019-0 [facility] Allergie 8-03 Clear s 00:00: Carrillo 00 [facility] No Known DA Active U 2018-0 [facility] Allergie 9-19 Clear s 00:00: Carrillo 00 [facility] No Known DA Active U 2018-0 [facility] Allergie 5-30 Clear s 00:00: Carrillo 00 [facility] Social History Social Habit Start Date Stop Date Quantity Comments Source History of tobacco Cigarette Smoker [facility] use [facility] Cigarettes smoked 2020-03-07 2020-03-07 [facility] current (pack per 00:00:00 00:00:00 Methodi ) - Reported Tobacco use and 2020-03-07 2020-03-07 Never used Thompson exposure 00:00:00 00:00:00 [facility] Alcohol intake 2020-03-07 2020-03-07 Current drinker [place] 00:00:00 00:00:00 of alcohol Pent[facility]alism (finding) History [facility] 2018-03-26 2018-03-26 1 [employer] 00:00:00 00:00:00 [facility]ism History [facility] 2018-03-26 2018-03-26 1 [employer] [facility] 00:00:00 00:00:00 [facility]ism History [facility] 2018-03-26 2018-03-26 1 [employer] Non-Med 00:00:00 00:00:[address] Sex Ass[birth year] At [birth year] [facility] 00:00:00 00:00:00 [facility] Smoking Status Start Date Stop Date Source Current some day smoker 2020-03-07 00:00:00 [place] [facility] Current every day smoker 2017-11-06 00:00:00 [facility] Medications Ordered Filled Start Stop Current [...] Name Observation Time Observation Value Comments Source Body Mass Index 2020-09-03 10:05:47 30.6 Height 2020-09-03 10:05:47 162.56\\S\\64 Pulse Rate 2020-09-03 10:05:47 81 /min Respiratory Rate 2020-09-03 10:05:47 16 /min Temperature 2020-09-03 10:05:47 36.6\\S\\98 Weight 2020-09-03 10:05:47 31536.442\\S\\2848 Weight Measurement 2020-09-03 10:05:47 Estimated by Method Patient Respiratory 2020-09-03 10:05:47 No respiratory distress /min 02 Sat by Pulse 2020-09-03 10:05:47 97 /min Oximetry Respiratory 2020-09-03 09:44:16 No respiratory distress /min 02 Sat by Pulse 2020-09-03 09:44:16 97 /min Oximetry Body Mass Index 2020-09-03 09:44:16 30.6 Height 2020-09-03 09:44:16 162.56\\S\\64 Pulse Rate 2020-09-03 09:44:16 81 /min Respiratory Rate 2020-09-03 09:44:16 16 /min Temperature 2020-09-03 09:44:16 36.6\\S\\98 Weight 2020-09-03 09:44:16 77751.442\\S\\2848 Weight Measurement 2020-09-03 09:44:16 Estimated by Method Patient Respiratory 2020-09-03 09:44:15 No respiratory distress /min 02 Sat by Pulse 2020-09-03 09:44:15 97 /min Oximetry Body Mass Index 2020-09-03 09:44:15 30.6 Height 2020-09-03 09:44:15 162.56\\S\\64 Pulse Rate 2020-09-03 09:44:15 81 /min Respiratory Rate 2020-09-03 09:44:15 16 /min Temperature 2020-09-03 09:44:15 36.6\\S\\98 Weight 2020-09-03 09:44:15 57223.442\\S\\2848 Weight Measurement 2020-09-03 09:44:15 Estimated by Method Patient Respiratory 2020-09-03 09:38:36 No respiratory distress /min 02 Sat by Pulse 2020-09-03 09:38:36 97 /min Oximetry Body Mass Index 2020-09-03 09:38:36 30.6 Height 2020-09-03 09:38:36 162.56\\S\\64 Pulse Rate 2020-09-03 09:38:36 81 /min Respiratory Rate 2020-09-03 09:38:36 16 /min Temperature 2020-09-03 09:38:36 36.6\\S\\98 Weight 2020-09-03 09:38:36 38443.442\\S\\2848 Weight Measurement 2020-09-03 09:38:36 Estimated by Method Patient Respiratory 2020-09-03 09:38:05 No respiratory distress /min 02 Sat by Pulse 2020-09-03 09:38:05 97 /min Oximetry Body Mass Index 2020-09-03 09:38:05 30.6 Height 2020-09-03 09:38:05 162.56\\S\\64 Pulse Rate 2020-09-03 09:38:05 81 /min Respiratory Rate 2020-09-03 09:38:05 16 /min Temperature 2020-09-03 09:38:05 36.6\\S\\98 Weight 2020-09-03 09:38:05 70204.442\\S\\2848 Weight Measurement 2020-09-03 09:38:05 Estimated by Method Patient Respiratory 2020-09-03 09:37:35 No respiratory distress /min 02 Sat by Pulse 2020-09-03 09:37:35 97 /min Oximetry Body Mass Index 2020-09-03 09:37:35 30.6 Height 2020-09-03 09:37:35 162.56\\S\\64 Pulse Rate 2020-09-03 09:37:35 81 /min Respiratory Rate 2020-09-03 09:37:35 16 /min Temperature 2020-09-03 09:37:35 36.6\\S\\98 Weight 2020-09-03 09:37:35 71500.442\\S\\2848 Weight Measurement 2020-09-03 09:37:35 Estimated by Method Patient Respiratory 2020-09-03 09:35:32 No respiratory distress /min 02 Sat by Pulse 2020-09-03 09:35:32 97 /min Oximetry Body Mass Index 2020-09-03 09:35:32 30.6 Height 2020-09-03 09:35:32 162.56\\S\\64 Pulse Rate 2020-09-03 09:35:32 81 /min Respiratory Rate 2020-09-03 09:35:32 16 /min Temperature 2020-09-03 09:35:32 36.6\\S\\98 Weight 2020-09-03 09:35:32 33265.442\\S\\2848 Weight Measurement 2020-09-03 09:35:32 Estimated by Method Patient Respiratory 2020-09-03 06:39:04 No respiratory distress /min 02 Sat by Pulse 2020-09-03 06:39:04 98 /min Oximetry Body Mass Index 2020-09-03 06:39:04 30.6 Height 2020-09-03 06:39:04 162.56\\S\\64 Pulse Rate 2020-09-03 06:39:04 84 /min Respiratory Rate 2020-09-03 06:39:04 18 /min Temperature 2020-09-03 06:39:04 36.8\\S\\98.3 Weight 2020-09-03 06:39:04 02403.442\\S\\2848 Weight Measurement 2020-09-03 06:39:04 Estimated by Method Patient 02 Sat by Pulse 2020-09-03 05:37:41 98 /min Oximetry Body Mass Index 2020-09-03 05:37:41 30.6 Height 2020-09-03 05:37:41 162.56\\S\\64 Pulse Rate 2020-09-03 05:37:41 84 /min Respiratory Rate 2020-09-03 05:37:41 18 /min Temperature 2020-09-03 05:37:41 36.8\\S\\98.3 Weight 2020-09-03 05:37:41 71906.442\\S\\2848 Weight Measurement 2020-09-03 05:37:41 Estimated by Method Patient 02 Sat by Pulse 2020-09-03 04:30:15 98 /min Oximetry Body Mass Index 2020-09-03 04:30:15 30.6 Height 2020-09-03 04:30:15 162.56\\S\\64 Pulse Rate 2020-09-03 04:30:15 84 /min Respiratory Rate 2020-09-03 04:30:15 18 /min Temperature 2020-09-03 04:30:15 36.8\\S\\98.3 Weight 2020-09-03 04:30:15 00072.442\\S\\2848 Weight Measurement 2020-09-03 04:30:15 Estimated by Method Patient 02 Sat by Pulse 2020-09-03 04:14:28 98 /min Oximetry Body Mass Index 2020-09-03 04:14:28 30.6 Height 2020-09-03 04:14:28 162.56\\S\\64 Pulse Rate 2020-09-03 04:14:28 84 /min Respiratory Rate 2020-09-03 04:14:28 18 /min Temperature 2020-09-03 04:14:28 36.8\\S\\98.3 Weight 2020-09-03 04:14:28 96466.442\\S\\2848 Weight Measurement 2020-09-03 04:14:28 Estimated by Method Patient 02 Sat by Pulse 2020-09-03 03:33:08 98 /min Oximetry Body Mass Index 2020-09-03 03:33:08 30.6 Height 2020-09-03 03:33:08 162.56\\S\\64 Pulse Rate 2020-09-03 03:33:08 84 /min Respiratory Rate 2020-09-03 03:33:08 18 /min Temperature 2020-09-03 03:33:08 36.8\\S\\98.3 Weight 2020-09-03 03:33:08 47493.442\\S\\2848 Weight Measurement 2020-09-03 03:33:08 Estimated by Method Patient 02 Sat by Pulse 2020-09-03 03:23:58 98 /min Oximetry Body Mass Index 2020-09-03 03:23:58 30.6 Height 2020-09-03 03:23:58 162.56\\S\\64 Pulse Rate 2020-09-03 03:23:58 84 /min Respiratory Rate 2020-09-03 03:23:58 18 /min Temperature 2020-09-03 03:23:58 36.8\\S\\98.3 Weight 2020-09-03 03:23:58 14555.442\\S\\2848 Weight Measurement 2020-09-03 03:23:58 Estimated by Method Patient WEIGHT 2020-09-03 03:16:00 80.878635 kg HEIGHT 2020-09-03 03:16:00 162.56 cm Systolic blood 2020-05-05 09:04:00 141 mm[Hg] [place] [facility] pressure Diastolic blood 2020-05-05 09:04:00 71 mm[Hg] [place] [facility] pressure Heart rate 2020-05-05 09:04:00 109 /min [facility] Body temperature 2020-05-05 09:04:00 36.94 Maria Fernanda [place] [facility] Respiratory rate 2020-05-05 09:04:00 16 /min [place] [facility] Oxygen saturation in 2020-05-05 00:27:00 96 /min [facility] Arterial blood by Pulse oximetry Body height 2020-03-07 20:33:00 162.6 cm [facility] Body weight 2020-03-07 20:33:00 81.194 kg [facility] BMI 2020-03-07 20:33:00 30.73 kg/m2 [facility] Body Temperature 2019-08-25 19:39:00 98.1 [degF] [facility] Heart Rate 2019-08-25 19:39:00 93 /min [facility] Respiratory rate 2019-08-25 19:39:00 17 /min [facility] BP Systolic 2019-08-25 19:39:00 127 mm[Hg] [facility] BP Diastolic 2019-08-25 19:39:00 79 mm[Hg] [facility] Heart Rate 2019-08-25 18:14:00 100 /min [facility] Respiratory rate 2019-08-25 18:14:00 20 /min [facility] BP Systolic 2019-08-25 18:14:00 128 mm[Hg] [facility] BP Diastolic 2019-08-25 18:14:00 76 mm[Hg] [facility] BMI (Body Mass 2019-08-25 18:14:00 0.6 kg/m2 [facility]KKI [facility] Index) Anamika Weight 2019-08-25 17:19:00 3.50 [lb_av] [facility] Body Temperature 2019-08-25 03:06:00 98.7 [degF] [facility] Heart Rate 2019-08-25 03:06:00 89 /min [facility] Respiratory rate 2019-08-25 03:06:00 18 /min [facility] BP Systolic 2019-08-25 03:06:00 127 mm[Hg] [facility] BP Diastolic 2019-08-25 03:06:00 89 mm[Hg] [facility] Heart Rate 2019-08-25 02:06:00 89 /min [facility] Respiratory rate 2019-08-25 02:06:00 18 /min [facility] ST[facility] Nov[facility] BP Systolic 2019-08-25 02:06:00 127 mm[Hg] [facility] BP Diastolic 2019-08-25 02:06:00 89 mm[Hg] [facility] Body Temperature 2019-07-30 04:18:00 97.6 [degF] [facility] Nov[facility] Heart Rate 2019-07-30 04:18:00 99 /min [facility] Respiratory rate 2019-07-30 04:18:00 18 /min [facility] BP Systolic 2019-07-30 04:18:00 128 mm[Hg] [facility] Novi BP Diastolic 2019-07-30 04:18:00 82 mm[Hg] [facility] Novi Heart Rate 2019-07-30 01:30:00 99 /min [facility] Novi Respiratory rate 2019-07-30 01:30:00 18 /min [facility] BP Systolic 2019-07-30 01:30:00 128 mm[Hg] [facility] Novi BP Diastolic 2019-07-30 01:30:00 82 mm[Hg] [facility] Novi Weight 2019-07-29 21:08:00 205 [lb_av] [facility] Novi BMI (Body Mass 2019-07-29 21:08:00 35.2 kg/m2 [facility] [place]) [place] Procedures Procedure Date / Time Performing Clinician Source Performed CREATINE KINASE, TOTAL 2020-05-05 04:12:00 Gio Martin (CPK) Monse COMPREHENSIVE METABOLIC 2020-05-05 04:12:00 Gio Martin PANEL Monse T4, FREE 2020-05-05 04:12:00 Gio Martin Nj higinio Shea THYROID STIMULATING HORMONE 2020-05-05 04:12:00 Jose Martin ALCOHOL LEVEL, BLOOD 2020-05-05 04:12:00 Gio Martin on Radha Shea SALICYLATE LEVEL 2020-05-05 04:12:00 Gio Martin ethodist Shea VALPROIC ACID LEVEL 2020-05-05 04:12:00 Gio Martin LITHIUM LEVEL 2020-05-05 04:12:00 Gio Martin ESTIMATED GFR 2020-05-05 04:12:00 Gio Martin HC COMPLETE BLD COUNT 2020-05-05 03:57:00 Gio Martin Pentecostalism W/AUTO DIFF Monse TROPONIN 2020-05-05 03:52:00 Gio Martin Nj thodist Monse COVID-19 QUALITATIVE PCR 2020-05-05 03:34:00 Gio Martin Monse XR CHEST 2 VW 2020-05-05 00:50:09 Gio Martin Me nilesodist Monse ECG ED PRELIMINARY 2020-05-05 00:25:40 Gio Martin INTERPRETATION Monse ECG 12-LEAD 2020-05-05 00:22:57 Gio Martin Nj thodist Monse POC GLUCOSE 2020-03-07 22:29:00 Bill [...] COUNT 2020-01-23 00:55:00 de García, Christopher Thompson [facility]alism W/AUTO DIFF Tru COMPREHENSIVE METABOLIC 2020-01-23 00:55:00 de Arjun Garcíaist PANEL Tru T4, FREE 2020-01-23 00:55:00 de Blaze García [employer]alism Tru THYROID STIMULATING HORMONE 2020-01-23 00:55:00 de Mikki García Tru URINALYSIS SCREEN AND 2020-01-23 00:55:00 Blaze Brannon MICROSCOPY, WITH REFLEX TO Tru CULTURE ALCOHOL LEVEL, BLOOD 2020-01-23 00:55:00 de Ricky, Blaze Garcia Tru URINE DRUGS OF ABUSE SCREEN 2020-01-23 00:55:00 Mikki Brannon Tru SALICYLATE LEVEL 2020-01-23 00:55:00 Blaze Brannon on [facility]ecostalism Tru ESTIMATED GFR 2020-01-23 00:55:00 Blaze Brannon [facility]alism Tru URINE CULTURE 2020-01-23 00:55:00 de Blaze García [employer]ism Tru ECG 12-LEAD 2020-01-23 00:52:01 Blaze Brannon [facility]alism Tru POC GLUCOSE 2020-01-16 05:04:00 Abdi Monk Meth odist ECG ED PRELIMINARY 2020-01-16 03:15:21 Abdi Monk M ethodist INTERPRETATION HC COMPLETE BLD COUNT 2020-01-16 03:01:00 Abdi Monk W/AUTO DIFF COMPREHENSIVE METABOLIC 2020-01-16 03:01:00 Abdi Monk [facility]alism PANEL CREATINE KINASE, TOTAL 2020-01-16 03:01:00 Abdi Monk on [facility]ec[facility]alism (CPK) THYROID STIMULATING HORMONE 2020-01-16 03:01:00 Abdi [...] COMPLETE BLD COUNT 2020-01-15 01:51:00 Bill Ferraro [facility]alism W/AUTO DIFF COMPREHENSIVE METABOLIC 2020-01-15 01:51:00 Bill Ferraro [facility]alism PANEL TROPONIN 2020-01-15 01:51:00 Bill Ferraro Jay [...] Calero ECG 12-LEAD 2019-10-10 03:12:58 Benitez Heck [facility]alism Go POC GLUCOSE 2019-10-10 03:10:00 Benitez Heck Go ECG ED PRELIMINARY 2019-10-10 00:44:40 Benitez Heck [employer]ism INTERPRETATION Go COVID-19 QUALITATIVE PCR 2019-10-10 00:39:00 Tyra Heck Go ALCOHOL LEVEL, BLOOD 2019-10-10 00:03:00 Benitez Heck [employer]ism Go URINE DRUGS OF ABUSE SCREEN 2019-10-10 00:03:00 So Heck [employer]alism Go SALICYLATE LEVEL 2019-10-10 00:03:00 Benitez Heck Go LITHIUM LEVEL 2019-10-10 00:03:00 Benitez Heck Go ESTIMATED GFR 2019-10-10 00:03:00 Benitez Heck Go URINE CULTURE 2019-10-10 00:03:00 Benitez Heck Go TROPONIN 2019-10-10 00:03:00 Benitez Heck [facility]alism Go HC COMPLETE BLD COUNT 2019-10-10 00:03:00 Benitez Heck [employer]alism W/AUTO DIFF Go COMPREHENSIVE METABOLIC 2019-10-10 00:03:00 Benitez Heck [employer]ism PANEL Go T4, FREE 2019-10-10 00:03:00 Benitez Heck [employer]ism Go THYROID STIMULATING HORMONE 2019-10-10 00:03:00 So Heck [employer]ism Go CREATINE KINASE, TOTAL 2019-10-10 00:03:00 Benitez Heck (CPK) Go URINALYSIS SCREEN AND 2019-10-10 00:03:00 Benitez Heck [facility]ism MICROSCOPY, WITH REFLEX TO Go CULTURE ECG (electrocardiogram) 2019-08-25 00:00:00 [facility] ECG (electrocardiogram) 2019-07-29 00:00:00 [facility] ROUTINE VENIPUNCTURE 2019-07-29 00:00:00 [facility]RIST[facility] S Novi COMPREHEN METABOLIC PANEL 2019-07-29 00:00:00 [facility] DRUG TEST PRSMV CHEM ANLYZR 2019-07-29 00:00:00 [facility] DRUG SCREEN QUANTALCOHOLS 2019-07-29 00:00:00 [facility] ANALGESICS NON-OPIOID 1 OR 2019-07-29 00:00:[address] Anamika URINALYSIS AUTO W/O SCOPE 2019-07-29 00:00:00 [facility] ASSAY OF CK (CPK) 2019-07-29 00:00:00 [facility] S t. Anamika ASSAY OF FREE THYROXINE 2019-07-29 00:00:00 [facility] ASSAY THYROID STIM HORMONE 2019-07-29 00:00:00 C [facility] ASSAY TRIIODOTHYRONINE (T3) 2019-07-29 00:00:00 [facility] COMPLETE CBC W/AUTO DIFF 2019-07-29 00:00:[address] WBC Anamika SYPHILIS TEST NON-TREP QUAL 2019-07-29 00:00:00 [facility] ELECTROCARDIOGRAM TRACING 2019-07-29 00:00:00 CH [facility] HYDRATION IV INFUSION INIT 2019-07-29 00:00:00 C [facility] EMERGENCY DEPT VISIT 2019-07-29 00:00:00 [facility] S Novi Ringers lactate infusion 2019-07-29 00:00:00 [facility] Plan of Care Planned Activity Planned Date Details Comments Source Future Scheduled Test 2020-11-07 [facility] 00:00:00 [code = INFLUENZA VACCINE] Future Scheduled Test 2019-12-09 INFLUENZA VACCINE (#1) [facility] - 00:00:00 [code = INFLUENZA Medical Ce nter VACCINE (#1)] Future Scheduled Test 2017-10-28 Hemoglobin A1c [facility] - 00:00:00 measurement [facility] (procedure) [code = 45836557] Future Scheduled Test 2010-10-04 Lipid panel [facility] - 00:00:00 (procedure) [code = Medical Center 65542975] Future Scheduled Test 1993-10-04 Hepatitis C screening [facility] 00:00:00 (procedure) [code = 026872528] Future Scheduled Test 1987 COVID-19 VACCINE (1) [facility] 00:00:00 [code = COVID-19 VACCINE (1)] Future Scheduled Test 1985-10-04 DIABETIC EYE EXAM [facility] - 00:00:00 [code = DIABETIC EYE Medical [facility] EXAM] Future Scheduled Test 1985-10-04 Urine screening for [facility] - 00:00:00 protein (procedure) [facility] [code = 968789455] Future Scheduled Test 1985-10-04 DIABETES: RETINAL EYE [facility] 00:00:00 EXAM [code = DIABETES: RETINAL EYE EXAM] Future Scheduled Test 1985-10-04 DIABETIC FOOT EXAM [facility] 00:00:00 [code = DIABETIC FOOT EXAM] Future Scheduled Test 1985-10-04 URINE MICROALBUMIN [facility] 00:00:00 [code = URINE MICROALBUMIN] Future Scheduled Test 1981-10-04 PNEUMOCOCCAL VACCINE JEAN PIERRE Knight - 00:00:00 0-64 YRS (1 of 1 - Medical C enter PPSV23) [code = PNEUMOCOCCAL VACCINE 0-64 YRS (1 of 1 - PPSV23)] Goal Patient referral [code [facility] = [id number] ] Anamika Goal Patient referral [code [facility] = [id number] ] Anamika Goal Patient referral [code [facility] = 4570860 ] Anamika Goal Patient referral [code [facility] = [id number] ] Anamika Goal Patient referral [code [facility] = [id number] ] Anamika Goal Patient referral [code [facility] = [id number] ] Anamika Goal Patient referral [code [facility] = [id number] ] Anamika Instructions Depression, Adult (DC) CLARA TUS Novi Instructions Hyperglycemia, Adult [facility] (DC) Anamika Instructions Rhabdomyolysis (DC) [facility] Instructions General (DC) [facility] Instructions OTHER [facility] Instructions Hyperglycemia, Adult [facility] S [facility] (DC) Anamika Instructions Suicide Prevention [facility] Encounters Start End Encounter Admission Attending Care Care Encounter Source Date/Time Date/Time Type Type Clinicians Facility Department ID 2020-09-02 2020-09-02 Emergency [facility] [id number] 19:34:00 21:33:00 Elenita Singletary [id number] [place] [id number] [place] [id number] [id number] 2020-09-01 2020-09-01 Orders Doctor KENDALL [id number] 00:00:00 00:00:00 Only UnassSONIA lopez [id number] [place] [facility] [id number] [id number] [id number] 2020-08-30 2020-08-30 Emergency Jame Magallanes [place] 1.2.840. 114 [id number] 02:15:00 10:29:00 Qi Butt [id number] 4.2.7.2.686 [id number] 014 2020-08-27 2020-08-27 Emergency Kaale, TRAUMA [id number] 00:10:00 14:13:00 [facility] [id number] 014 2020-08-24 2020-08-24 Emergency Britt Roe E [place] 1.2.840 .114 [id number] 01:07:00 12:45:00 Christ López [place] [id number] 4.2.7.2.686 [id number] 014 2020-08-19 2020-08-19 Emergency [facility] [id number] 21:21:00 23:55:00 [facility] [id number] [place] 4.2.7.2.686 [place] [id number] Hospital 014 (CLC) 2020-08-08 2020-08-08 Letter KENDALL Molina [id number] 00:00:00 00:00:00 (Out) Lauren SCOTT [id number] [facility] 4.2.7.2.686 [id number] 019 2020-08-07 2020-08-07 Laboratory Nurse, Max RUST [id number] 09:14:16 09:29:16 Only Adult [place] [id number] [facility] 4.2.7.2.686 [place] [id number] [facility] 2020-08-05 2020-08-05 Emergency Christ López TRAU[place] [id number] 03:13:00 12:47:00 Qi Butt [place] [id number] 4.2.7.2.686 [id number] 014 2020-07-29 2020-07-29 Telephone KENDALL Rangel 1.2.840.114 [id number] 00:00:00 00:00:00 Bhavna SCOTT [id number] [facility] 4.2.7.2.686 [id number] [id number] 2020-07-26 2020-07-27 Emergency Jyothi, Britt E [place] 1.2.840 .114 [id number] 22:16:00 19:28:00 Monse Arce [place] [id number] 4.2.7.2.686 [id number] 014 2020-07-25 2020-07-25 Emergency Ibikunle, TRAUMA 1.2.840.114 [id number] 21:57:00 22:57:00 Geo Lopez [place] 350.1.13.10 4.2.7.2.686 [id number] 014 2020-07-25 2020-07-25 Emergency Gerson, TRAUMA [id number] 05:12:00 06:32:00 [facility] [id number] 4.2.7.2.686 [id number] 014 2020-07-23 2020-07-24 Emergency Jame Magallanes [place] 1.2.840. 114 [id number] 20:12:00 04:36:[facility] [id number] 4.2.7.2.686 [id number] 014 2020-07-15 2020-07-16 Emergency Nancy, TRAUMA [id number] 20:44:00 02:31:00 [facility] [id number] [place] 4.2.7.2.686 [id number] 014 2020-07-12 2020-07-13 Emergency Watson, RUST [id number] 22:01:00 05:51:00 [facility] [id number] [place] 4.2.7.2.686 [place] [id number] [facility] 014 ([facility]) 2020-07-12 2020-07-12 Emergency Patel, RUST [id number] 18:04:00 20:02:00 [facility] [id number] [place] 4.2.7.2.686 [place] [id number] [facility] 014 ([facility]) 2020-07-06 2020-07-06 Emergency Na, RUST 1.2.840.114 [id number] 00:50:00 09:57:00 Jamal Singletary 350.1.13.10 [place] 4.2.7.2.686 [place] [id number] 2020-07-06 2020-07-06 Telephone KENDALL Botello 1.2.840.114 [id number] 00:00:00 00:00:00 Alvarez SCOTT 350.1.13.10 [facility] 4.2.7.2.686 [id number] [id number] 2020-07-04 2020-07-04 Emergency Kendall Watson RUST 1.2.840.114 [id number] 15:38:00 21:23:00 Villanueva, [facility] 350.1.13.10 [place] 4.2.7.2.686 [place] [id number] [place] [address] ([facility]) 2020-07-04 2020-07-04 Emergency RUST 1.2.042.420 [id number] 06:58:00 08:30:00 [facility] 350.1.13.10 [place] 4.2.7.2.686 [place] [id number] [place] [address] ([facility]) 2020-07-03 2020-07-03 [facility] 1.2.823.153 [id number] 22:33:00 23:45:00 [facility] 350.1.13.10 Magnus Gautam 4.2.7.2.686 [facility] [phone] [address] ([facility]) 2020-06-24 2020-06-24 Emergency Yolette Jimenez TRAUMA 1.2.8 40.114 [id number] 03:02:00 16:17:00 Christ López CENTER 350.1.13.10 4.2.7.2.686 [id number] 014 2020-05-29 2020-05-30 Emergency Monse Arce TRAUMA 1.2.84 0.114 [id number] 16:49:00 01:10:00 Yolette Jimenez CENTER 350.1.13.10 4.2.7.2.686 [id number] 014 2020-05-21 2020-05-21 Emergency Nancy, RUST 1.2.217.954 [id number] 22:02:00 23:04:00 [facility] 350.1.13.10 Terry Gautam 4.2.7.2.686 [facility] [phone] [address] ([facility]) 2020-05-05 2020-05-05 Emergency [facility] [id number] [place] [address] 00:00:00 00:00:00 GIO Carlos rodriguez 2020-04-26 2020-04-26 Emergency Walter, RUST 1.2.595.256 [id number] 18:25:00 21:35:00 [facility] 350.1.13.10 Clear 4.2.7.2.686 [place] [id number] [address]) 2020-04-23 2020-04-24 Emergency Jyothi, RUST 1.2.945.029 [id number] 19:50:00 00:21:00 Britt Singletary 350.1.13.10 [place] 4.2.7.2.686 [place] [id number] 084 2020-04-22 2020-04-23 Emergency [facility] 1.2.705.297 [id number] 20:02:00 06:19:00 Gopi Singletary 350.1.13.10 [place] 4.2.7.2.686 [place] [phone] 084 2020-04-21 2020-04-22 Emergency [facility] 1.2.400.368 [id number] 19:22:00 06:41:00 Gopi Singletary 350.1.13.10 [place] 4.2.7.2.686 [place] [id number] 084 2020-04-20 2020-04-21 Emergency Missy Rawls R[facility] 1.2.840.1 [id number] 23:35:00 08:33:00 Gopi Palomino 350.1.13.10 Missy Rawls 4.2.7.2.686 [place] [id number] [id number] 2020-03-31 2020-03-31 Emergency Vimal [place] 1.2.219.241 [id number] 02:51:00 05:37:00 [facility] 350.1.13.10 Clear 4.2.7.2.686 [place] [id number] Hospital 014 (CLC) 2020-03-17 2020-03-18 Emergency Walter, RUST 1.2.300.195 [id number] 22:59:00 03:46:00 [facility]ly [facility] 350.1.13.10 Clear 4.2.7.2.686 [place] [id number] Hospital 014 ([facility]) 2020-03-07 2020-03-07 Emergency RUBIN, [facility] 064 [id number] [place] 00:00:00 00:00:00 BILL Silvia6 [facility] 2020-03-01 2020-03-01 Emergency Patel, [place] 1.2.636.558 [id number] 03:49:00 05:46:00 [facility] 350.1.13.10 Clear 4.2.7.2.686 [place] [id number] Hospital 014 ([facility]) 2020-02-28 2020-02-29 Emergency Jame Ram [place] 1.2.8 40.114 [id number] 20:26:00 01:25:00 EdyJame sam [facility] 350.1.13.10 Clear 4.2.7.2.686 [place] [id number] Hospital 014 ([facility]) 2020-02-21 2020-02-22 Emergency Vimal, [place] 1.2.961.563 [id number] 19:15:00 02:01:00 [facility] 350.1.13.10 Clear 4.2.7.2.686 [place] [id number] Hospital 014 ([facility]) 2020-02-20 2020-02-21 Emergency Unknown, Attending [facility] 1.2.8 40.114 [id number] 21:59:00 04:04:00 [facility] 350.1.13.10 Clear 4.2.7.2.686 [place] [id number] Hospital 014 ([facility]) 2020-02-11 2020-02-12 Emergency Jame Ram [place] 1.2.8 40.114 [id number] 20:17:00 14:37:00 Kendall Watson 350.1.13.10 Clear 4.2.7.2.686 [place] [id number] Hospital 014 ([facility]) 2020-01-29 2020-01-30 Emergency Sam Celis [facility] 1.2.8 40.114 [id number] 23:20:00 09:15:00 Kendall Watson 350.1.13.10 Clear 4.2.7.2.686 [place] [id number] Hospital 014 (CLC) 2020-01-24 2020-01-24 Emergency Sam Celis [facility] 1.2.8 40.114 [id number] 01:58:00 10:51:00 Pan Mendoza [facility] 350.1.13.10 Clear 4.2.7.2.686 [place] [id number] Hospital 014 (CLC) 2020-01-23 2020-01-23 Emergency DE GARCÍA, [place] [address] [id number] [place] 00:00:00 00:00:00 BLAZE 090 Me nilesodi 2020-01-16 2020-01-16 Emergency SVACH, [place] [address] [id number] [place] 00:00:00 00:00:00 ABDI 406 Method i 2020-01-15 2020-01-15 Emergency MARCANTEL, [place] [address] [id number] [place] 00:00:00 00:00:00 BILL 619 Method i 2020-01-07 2020-01-07 Emergency Kendall Watson [facility] 1.2.840.114 [id number] 02:41:00 18:55:00 Lillie Baker [facility] 350.1.13.10 Clear 4.2.7.2.686 [place] [id number] Hospital 014 (CLC) 2020-01-01 2020-01-01 Emergency VANDER [place] [address] [id number] [place] 00:00:00 00:00:00 ROB, 644 Method i RIAZ 2019-12-27 2019-12-27 Emergency Mutendereki [facility] 1.2.840.114 [id number] 12:39:00 13:15:00 , [facility] 350.1.13.10 Clear 4.2.7.2.686 [place] [id number] Hospital 014 (CLC) 2019-12-04 2019-12-05 Emergency Shoaib, [place] 1.2.579.818 [id number] 19:40:00 03:27:00 [facility] 350.1.13.10 Clear 4.2.7.2.686 [place] [id number] Hospital 014 ([facility]) 2019-12-02 2019-12-02 Emergency Walter, [place] 1.2.748.097 [id number] 17:51:00 20:28:00 [facility] 350.1.13.10 Clear 4.2.7.2.686 [place] [id number] Hospital 014 ([facility]) 2019-10-31 2019-11-01 Emergency Watson, WAMB 1.2.030.846 [id number] 20:18:14 02:15:00 [facility] 350.1.13.10 Clear 4.2.7.2.686 [place] [id number] Hospital 014 ([facility]) 2019-10-17 2019-10-17 Emergency UT 1.2.039.594 [id number] 14:54:43 14:57:00 Health 350.1.13.10 Clear 4.2.7.2.686 [place] [id number] Hospital 014 ([facility]) 2019-10-09 2019-10-10 Emergency [facility] [id number] [place] [address] 00:00:00 00:00:[address] [place] [address] 2019-10-09 2019-10-09 Emergency Shoaib, R[place] 1.2.078.636 [id number] 04:11:17 07:13:00 [facility] 350.1.13.10 Clear 4.2.7.2.686 [place] [id number] Hospital 014 ([facility]) 2019-08-25 2019-08-25 Departed ROD HEWITT [id number] CHRISTU 17:25:00 19:40:[address] . Room [facility] 2019-08-25 2019-08-25 Departed ROD HEWITT [id number] CHRISTU 01:55:00 03:06:[address] Room [facility] e 2019-07-29 2019-07-30 Departed ROD HEWITT [id number] CHRISTCarl 20:41:00 04:20:[address] Room Anamika armas 2019-07-24 2019-07-25 Emergency Morrical, TRAUMA 1.2.840.114 [id number] 17:52:29 00:33:00 Edmundo O CENTER 350.1.13.10 4.2.7.2.686 [id number] 014 2019-07-23 2019-07-24 Emergency Banipal TRAUMA 1.2.162.847 [id number] 23:51:49 03:50:00 Morrical, CENTER 350.1.13.10 [place] 4.2.7.2.686 [id number] 014 2019-07-18 2019-07-19 Emergency Nino, TRAUMA 1.2.840.114 [id number] 22:53:16 02:38:00 Laura Mosquera CENTER 350.1.13.10 4.2.7.2.686 [id number] 014 2019-07-10 2019-07-11 Emergency Vincent, Shinta TRAUMA 1.2.840. 114 [id number] 17:30:12 07:56:00 AuSloane chapman CENTER 350.1. 13.10 4.2.7.2.686 [id number] 014 2019-07-10 2019-07-10 Emergency Gerson, TRAUMA 1.2.591.915 [id number] 06:04:43 06:48:00 Estefani CENTER 350.1.13.10 4.2.7.2.686 [id number] 014 2019-06-21 2019-06-21 Emergency Laura Nino TRAUMA 1.2 .840.114 [id number] 02:54:23 11:00:00 Eleazar Potts CENTER 350.1.13.10 4.2.7.2.686 [id number] 014 2019-06-15 2019-06-16 Emergency REICHL, [facility] [id number] [place] [address] 00:00:00 00:00:00 SIMA [facility] 2019-05-31 2019-05-31 Emergency DE GARCÍA, [facility] 064 [id number] [place] 00:00:00 00:00:00 BLAZE cageodi 2019-05-29 2019-05-30 Emergency ALAN, [facility] 064 [id number] [place] 00:00:00 00:00:00 JUANI 957 Method i 2019-05-25 2019-05-25 Emergency Willy Askew [facility] 1.2.84 0.114 [id number] 01:16:44 12:13:00 Anderson Seth [facility] 350.1.13.10 Clear 4.2.7.2.686 [place] [id number] Hospital 014 (CLC) 2019-05-11 2019-05-11 Emergency Olivia, RUST 1.2.840.114 [id number] 17:44:49 23:20:00 [facility] 350.1.13.10 Clear 4.2.7.2.686 [place] [id number] Hospital 014 (CLC) 2019-01-03 2019-01-03 [facility] [id number] [place] 21:49:56 21:49:56 Health 2018-11-01 2018-11-[address] Gregory 1.2.840.114 [id number] 14:56:39 23:59:00 Encounter Dorita CALLOWAYLance 350.1.13.10 MEDICAL 4.2.7.2.686 [place] [id number] [id number] 2017-10-28 2017-10-28 Emergency [facility] [id number] [place] 08:41:18 08:41:18 Health 2017-10-20 2017-10-20 Emergency [facility] [id number] [place] 08:09:00 08:09:00 Health 2017-10-10 2017-10-10 Emergency [facility] [id number] [place] 01:05:00 01:05:00 Health 2017-09-27 2017-09-27 Emergency [facility] [id number] [place] 21:47:00 21:47:00 Health 2017-09-26 2017-09-26 Emergency [facility] [id number] [place] 22:17:00 22:17:00 Health 2017-09-24 2017-09-24 Outpatient [facility] [id number] [facility] 10:46:12 10:46:12 2017-09-21 2017-09-21 [facility] [id number] [place] 23:01:00 23:01:00 [facility] 2017-09-20 2017-09-20 [facility] [id number] [place] 21:20:00 21:20:00 [facility] 2017-09-18 2017-09-18 [facility] [id number] [place] 03:14:00 03:14:00 [facility] 2017-09-13 2017-09-13 Outpatient [facility] [id number] [facility] 09:45:02 09:45:02 2017-09-13 2017-09-13 [facility] [id number] [place] 00:01:00 00:01:00 [facility] 2017-09-09 2017-09-09 [facility] [id number] [place] 22:15:00 22:15:00 [facility] 2017-08-22 2017-08-22 Outpatient [facility] [id number] [place] 00:00:00 00:00:00 [facility] 2017-08-20 2017-08-20 [facility] [id number] [place] 08:25:08 08:25:08 [facility] 2017-08-18 2017-08-18 [facility] [id number] [place] 00:11:00 00:11:00 [facility] 2017-08-16 2017-08-16 [facility] [id number] [place] 19:30:00 19:30:00 [facility] 2017-07-17 2017-07-17 Emergency E JAMIE [facility] [id number] 20:09:00 20:09:00 [facility] 2017-06-29 2017-06-29 [facility] [id number] [place] 00:07:13 00:07:13 [facility] 2017-06-05 2017-06-05 Outpatient [facility] [id number] [place] 00:00:00 00:00:00 [facility] 2017-06-01 2017-06-01 [facility] [id number] [place] 15:16:18 15:16:18 [facility] 2017-05-18 2017-05-18 Outpatient [facility] [id number] [place] 00:00:00 00:00:00 [facility] 2017-05-07 2017-05-07 [facility] [id number] [place] 22:29:15 22:29:15 [facility] 2017-04-14 2017-04-14 Emergency E JAMIE [facility] [id number] 15:50:00 15:50:00 [facility] 2017-03-26 2017-03-26 Emergency E KAMLESH, [facility] [id number] 13:48:00 13:48:00 [facility] 2017-03-25 2017-03-25 Emergency E SUSI, [facility] [id number] 00:06:00 00:06:00 JUANI [facility] 2017-03-20 2017-03-20 Emergency E ERIC, [facility] [id number] 12:17:00 12:17:00 [facility] 2017-03-01 2017-03-01 Emergency E JALISBET [facility] [id number] 19:18:00 19:18:00 [facility] 2017-02-28 2017-02-28 Emergency E RAMANA SOARES [facility] [id number] 21:18:00 21:18:00 [facility] 2017-02-27 2017-02-27 Emergency E CYRUSBRITTNEY [facility] [id number] 22:19:00 22:19:00 BARN[place] [facility] 2017-02-23 2017-02-23 [facility] [id number] [place] 18:07:28 18:07:28 [facility] 2017-02-22 2017-02-22 Emergency E JA LISBET [facility] [id number] 08:45:00 08:45:00 [facility] 2017-02-15 2017-02-15 Emergency C JAMIE, [facility] [id number] 19:57:00 19:57:00 [facility] 2017-01-22 2017-01-22 [facility] [id number] [place] 06:44:35 06:44:35 Health 2017-01-18 2017-01-18 [facility] [id number] [place] 02:07:00 02:07:00 [facility] 2016-08-24 2016-08-24 [facility] [id number] [place] 13:58:00 13:58:00 Health Results Test Description Test Time Test Comments Results Result Comments Source GLUBED 2020-09-04 15:30:00 Test Item Value Reference Range Interpretation Comme nts GLUBED (test code = GLUBED) 160 mg/dL 74-106 H Performed by certified oxygraph operator at [facility] [id number] 11:24:00 Test Item Value Reference Range Interpretation Comments GLUBED (test code = 182 mg/dL 74-106 H Performe d by certified GLUBED) oxygraph operator at [facility] [id number] 06:30:00 Test Item Value Reference Range Interpretation Comments GLUBED (test code 325 mg/dL 74-106 H Performed by certified = GLUBED) [facility]~ COVID 19 INHOUSE [id number] 22:11:00 Test Item Value Reference Range Interpretation Comments COVID 19 INHOUSE AG (test code = NEGATIVE NEGATIVE [id number]) BASIC METABOLIC [id number] 21:07:00 Test Item Value Reference Range Interpretation [...] >3 months. [Automated mess age] The system POS on CLOUD generated this result transmitted ref erence range: >=60. Th e reference range was not used to int erpret this result as normal/abnormal . CREATININE (test 0.80 mg/dL 0.7-1.3 N code = CREAT) BUN/CREATININE RATIO 11.5 10-20 N (test code = BUN/CREA) CALCIUM (test code = 9.6 mg/dL 8.5-10.1 N CA) HEPATIC FUNCTION [id number] 21:07:00 Test Item Value Reference Range Interpretation [...] range due ALKP) to change in reagent. [id number] 21:07:00 Test Item Value Reference Range Interpretation [...] T ANADDITIONAL CH ARGE TO THE PATIENT. [id number] 21:07:00 Test Item Value Reference Range Interpretation Comments ACETAMINOPHEN (test code = ACET) < 0.2 mg/dL 1.0-3.0 L [id number] 21:07:00 Test Item Value Reference Range Interpretation Comments SALICYLATE (test code = DAVE) < 3.0 mg/dL 2.8-20.0 N CBC W/O [id number] 20:34:00 Test Item Value Reference Range Interpretation [...] 9.7 fL 6.7-11.0 N = MPV) URINALYSIS [id number] 20:11:00 Test Item Value Reference Range Interpretation [...] Urine Source? Clean CatchDRUGS OF ABUSE SCREEN [id number] 20:11:00 Test Item Value Reference Range Interpretation Comments URN COCAINE (test code = NEGATIVE See_Comment [A utomated message] COCAURN) The system POS on CLOUD generated this result transmitted ref erence range: [...] See_Comment [A utomated message] OPIATURN) The system POS on CLOUD generated this result transmitted ref erence range: [...] [A utomated message] = METHAURN) The system POS on CLOUD generated this result transmitted ref erence range: <300 ng/ mL. The reference r blaise was not used to interpret this result as normal/abnor mal. Urine Source? Clean CatchURINALYSIS [id number] 19:43:00 Test Item Value Reference Range Interpretation [...] Urine Source? Clean CatchDRUGS OF ABUSE SCREEN [id number] 19:43:00 Test Item Value Reference Range Interpretation Comments URN COCAINE (test code = See_Comment [A utomated message] COCAURN) The system POS on CLOUD generated this result transmitted ref erence range: [...] See_Comment [Automated message] = AMPHETURN) The system POS on CLOUD generated this result transmitted ref erence range: <1000 ng /mL. The reference r blaise was not used to interpret this result as normal/abnor mal. URN BARBITURATE (test code See_Comment [Automated message] = BARBITURN) The system POS on CLOUD generated this result transmitted ref erence range: [...] See_Comment [A utomated message] OPIATURN) The system POS on CLOUD generated this result transmitted ref erence range: [...] = See_Comment [Automated message] METHAURN) The system POS on CLOUD generated this result transmitted ref erence range: <300 ng/ mL. The reference range was not used to int erpret this result as normal/abnormal . Urine Source? Clean CatchDRUGS OF ABUSE SCREEN [id number] 19:42:00 Test Item Value Reference Range Interpretation Comments URN COCAINE (test code = See_Comment [A utomated message] COCAURN) The system POS on CLOUD generated this result transmitted ref erence range: [...] See_Comment [Automated message] = AMPHETURN) The system POS on CLOUD generated this result transmitted ref erence range: <1000 ng /mL. The reference r blaise was not used to interpret this result as normal/abnor mal. URN BARBITURATE (test code See_Comment [Automated message] = BARBITURN) The system POS on CLOUD generated this result transmitted ref erence range: [...] See_Comment [A utomated message] OPIATURN) The system POS on CLOUD generated this result transmitted ref erence range: [...] = See_Comment [Automated message] METHAURN) The system POS on CLOUD generated this result transmitted ref erence range: <300 ng/ mL. The reference range was not used to int erpret this result as normal/abnormal . Urine Source? Clean CatchURINALYSIS [id number] 19:42:00 Test Item Value Reference Range Interpretation [...] per HPF NONE BACU) Urine Source? Clean [id number] 09:10:00 Test Item Value Reference Range Interpretation Comments HGBA1C% (test code = HGBA1C%) 12.6 %A1C 4.8-6.0 H ESTIMATED AVERAGE GLUCOSE (test 315 MG/DL code = EAG) BASIC METABOLIC [id number] 08:58:00 Test Item Value Reference Range Interpretation [...] code = CA) 8.9 mg/dl 8.0-10.5 N [id number] 07:11:00 Test Item Value Reference Range Interpretation Comments GLUBED (test code = GLUBED) 361 mg/dL 70-110 H UR OSMOLALITY [id number] 04:54:00 Test Item Value Reference Range Interpretation Comments UR OSMOLALITY RANDOM (test code = 703 MOS/KG 300-1000 N OSMOU) OSMOLALITY [id number] 13:20:00 Test Item Value Reference Range Interpretation Comments OSMOLALITY SERUM (test code = 293 MOS/KG 275-295 N OSMO) [id number] 11:52:00 Test Item Value Reference Range Interpretation Comments GLUBED (test code = GLUBED) 359 mg/dL 70-110 H [id number] 08:39:00 Test Item Value Reference Range Interpretation Comments GLUBED (test code = GLUBED) 377 mg/dL 70-110 H [id number] 19:47:00 Test Item Value Reference Range Interpretation Comments GLUBED (test code = GLUBED) 305 mg/dL 70-110 H [id number] 17:19:00 Test Item Value Reference Range Interpretation Comments SODIUM (test code = NA) 128 mmol/l 134.0-147.0 L [id number] 17:06:00 Test Item Value Reference Range Interpretation Comments GLUBED (test code = GLUBED) 409 mg/dL 70-110 H [id number] 14:08:00 Test Item Value Reference Range Interpretation Comments GLUBED (test code = GLUBED) 339 mg/dL 70-110 H VALPROIC ACID (DEPAKENE)2020-05-19 13:26:00 Test Item Value Reference Range Interpretation Comments VALPROIC ACID <3.0 mcg/dL 50-100 L The physicia n must (DEPAKENE) (test determine t he code = VALP) appropriate therapeutic range for each patient. COVID 19 Asymptomatic IH [id number] 11:40:00 Test Item Value Reference Range Interpretation Comments COVID 19 NEGATIVE NEGATIVE Negative result s should be Asymptomatic IH AG treated a s presumptive and (test code = ifinconsistent with COVNONPUIAG) clinical signs and symptoms, or ne cessaryfor patient managem ent, should be tested with an alternativemole cular assay. Negative results do not preclude XRHP-OyN-0djszk tion and should not be u sed as the sole basis forp atient management deci sions. Negative result s should beconsidered in the context of a pa tient's recent exposure s,history, presence of cli nical signs and symptoms consistentwith COVID-19. [id number] 11:36:00 Test Item Value Reference Range Interpretation Comments SODIUM (test code = NA) 128 mmol/l 134.0-147.0 L [id number] 03:48:00 Test Item Value Reference Range Interpretation Comments GLUBED (test code = GLUBED) 159 mg/dL 70-110 H [id number] 02:43:00 Test Item Value Reference Range Interpretation Comments GLUBED (test code = GLUBED) 326 mg/dL 70-110 H BASIC METABOLIC [id number] 01:21:00 Test Item Value Reference Range Interpretation [...] N Specimen comments: Clean CatchHEPATIC FUNCTION PANEL [id number] 01:21:00 Test Item Value Reference Range Interpretation [...] Units/L 35-232 N CK) Specimen comments: Clean [id number] 01:21:00 Test Item Value Reference Range Interpretation Comments ACETAMINOPHEN (test <2.0 mcg/ml 10.0-30.0 L Result i s in code = ACET) Microgram per milliliter. Specimen comments: Clean [id number] 01:21:00 Test Item Value Reference Range Interpretation Comments SALICYLATE (test code = DAVE) 4.0 mg/dl 2.8-20.0 N Specimen comments: Clean [id number] 01:21:00 Test Item Value Reference Range Interpretation Comments ALCOHOL (test code 0.00 gm/dL 0.00-0.00 N ETHYL ALC OHOL VALUES - = ALC) INTERPRETATION: 0.050 GM/DL - NOT INT OXICATED 0.100 GM/DL - INTOXICATED 0.3 50-0.450 GM/DL - SEVEREL Y INTOXICATED 0.5 50 GM/DL- FATAL INTOXICAT ION Specimen comments: Clean CatchDRUGS OF ABUSE SCREEN [id number] 01:21:00 Test Item Value Reference Range Interpretation [...] code = METHAURN) Specimen comments: Clean CatchURINALYSIS [id number] 01:18:00 Test Item Value Reference Range Interpretation [...] FEW NONE BACU) Specimen comments: Clean CatchPROTHROMBIN [id number] 01:07:00 Test Item Value Reference Range Interpretation Comments PROTHROMBIN TIME 11.0 SECONDS 9.9-12.8 N PATIENT (test code = PTP) INTERNATIONAL NORMAL 0.9 0.89-1.14 N THE INR IS TO BE USED RATIO (test code = ONLY FOR MONITORING INR) ORAL ANTICOAGULANTTH ERAPY. THE FOLLOWING A RE SUGGESTED RANGE S FROM [facility] LE[facility] OF CHEST PHYSICIANS:J CARLOS CATION INR VALUEPROPHYLAXI S OF VENOUS THROMBOS IS (ORTHOPEDIC VÍCTOR OUSMANE) 2.0 - 3.0PROP HYLAXIS OF VENOUS THROM BOSIS (OTHER THAN HIG H-RISK SURGERY) 2.0 - 3.0TRE ATMENT OF DEEP VEIN THROMBOSIS OR PULMONARY EMBOL ISM 2.0 - 3.0PREV ENTION OF SYSTEMIC EMB OLISM TISSUE HEART VA LVES 2.0 - 3.0 AC [place] MYOCARDIAL INFA RCTION (TO PREVENT SYSTEMIC EMBOLI [...] NONE BACU) Specimen comments: Clean CatchCBC W/AUTO [id number] 00:54:00 Test Item Value Reference Range Interpretation [...] X10 3uL 0.00-0.01 N NRBC#) ECG 12 [id number] 15:44:00 Test Item Value Reference Range Interpretation Comments Ventricular rate (test 112 code = 253) Atrial rate (test code = 112 255) FL interval (test code = 130 266) QRSD interval (test code 82 = 260) QT interval (test code = 320 264) QTC interval (test code = 436 265) P axis 1 (test code = 40 267) QRS axis 1 (test code = 45 268) T wave axis (test code = 26 270) EKG impression (test code Sinus = 273) tachycardia-Electron ically Signed By hCandra Varela MD ([id number]) on 05/05/2020 3:43:54 PM Jay CarrascoCtmsmcucyAJHA-FkY-5 (COVID-19) RNA [Presence] in Respiratory specimen by AYALA with probe [id number] 05:25:02 Test Item Value Reference Range Interpretation Comments SARS-CoV-2 (COVID-19) RNA Not detected Not-Detected [Presence] in Respiratory specimen by AYALA with probe detection (test code = 90152-1) XR Chest 2 [id number] 00:51:46Hm Interface, Radiology Results Incoming - 05/05/2020 12:54 AM CST EXAMINATION: XR CHEST 2 VWCLINICAL HISTORY: chest painCOMPARISON: 03/07/2020IMPRESSION:No radiographic evidence for acute cardiopulmonary process.Cardiomediastinal silhouette is within normal limits of size.No focal or confluent airspace consolidation is seen to suggest acute pneumonia. No sizable pleural effusion. No pneumothorax identified.No acute osseous abnormalities are visualized.[id number] Preliminary Interpretation - Not an [id number] 00:25:40Gio Martin DO 05/05/2020 6:20 AMECG ED Preliminary Interpretation - Not an OrderPerformed by: Gio Martin DOAuthorized by: Gio Martin DO ECG reviewed by ED Physician in the absence of a grocery worker: yes Interpretation: Interpretation: non-specific Rate: ECG rate: 112 ECG rate assessment: tachycardic Rhythm: Rhythm: sinus tachycardia Ectopy: Ectopy: none QRS: QRS axis: Normal QRS intervals: NormalConduction: Conduction: normal ST segments: ST segments: NormalT waves: T waves: normalHouston Pentecostalism COMPREHENSIVE METABOLIC [id number] 01:26:00 Test Item Value Reference Range Interpretation [...] TOTAL (test code = ALKP) BASIC METABOLIC [id number] 22:32:00 Test Item Value Reference Range Interpretation [...] CA) 8.1 MG/DL 8.5-10.1 L GLUCOSE BEDSIDE [id number] 22:26:00 Test Item Value Reference Range Interpretation Comments GLUCOSE BEDSIDE TESTING (test code 325 mg/dL 70-110 H = GLUBED) UA RFLX MICR CULT IF [id number] 22:24:00 Test Item Value Reference Range Interpretation [...] URINE: CLEAN CATCHUA RFLX MICR CULT IF [id number] 22:22:00 Test Item Value Reference Range Interpretation [...] culture: Dysuria/FrequencySOURCE OF URINE: CLEAN CATCHCBC W/AUTO [id number] 22:12:00 Test Item Value Reference Range Interpretation [...] CRITERIA = MDIFF) XR Chest 1 Vw [id number] 21:39:51Hm Interface, Radiology Results - 03/07/2020 9:42 PM CST EXAMINATION: XR CHEST 1 VW PORTABLECLINICAL HISTORY: SOB IMPRESSION:There was a poor inspiratory effort. Heart and mediastinum are within normal limits. There is no segmental infiltrate or effusion. No significant change from [facility]2020[id number] 02:24:00 Test Item Value Reference Range Interpretation Comments GLUBED (test code = 391 MG/DL 70-110 H Performe d by certified GLUBED) oxygraph operator at [facility] [id number] 08:39:00 Test Item Value Reference Range Interpretation Comments GLUBED (test code = 186 MG/DL 70-110 H Performe d by certified GLUBED) oxygraph operator at [facility] BASIC METABOLIC [id number] 04:55:00 Test Item Value Reference Range Interpretation [...] 8.4 mg/dL 8.0-10.5 N CA) CBC W/AUTO [id number] 04:42:00 Test Item Value Reference Range Interpretation [...] (test code NO = MDIFF) CBC W/AUTO [id number] 04:41:00 Test Item Value Reference Range Interpretation [...] MANUAL DIFF REQUIRED (test code = MDIFF) [id number] 01:06:00 Test Item Value Reference Range Interpretation Comments GLUBED (test code = 231 MG/DL 70-110 H Performe d by certified GLUBED) oxygraph operator at [facility] BASIC METABOLIC [id number] 21:34:00 Test Item Value Reference Range Interpretation [...] code = CA) mg/dL 8.0-10.5 HEPATIC FUNCTION [id number] 21:34:00 Test Item Value Reference Range Interpretation Comments TOTAL PROTEIN (test code = PROT) g/dL 6.4-8.2 ALBUMIN (test code = ALB) g/dL 3.4-5.0 BILIRUBIN TOTAL (test code = BILT) mg/dL 0.0-1.0 BILIRUBIN DIRECT (test code = BILD) MG/DL 0.0-0.30 SGOT/AST (test code = AST) IUnit/L 15-37 SGPT/ALT (test code = ALT) IUnit/L 30-65 ALKALINE PHOSPHATASE TOTAL (test IUnit/L 20-125 code = ALKP) [id number] 21:34:00 Test Item Value Reference Range Interpretation [...] may anayeli y by method. BASIC METABOLIC [id number] 21:34:00 Test Item Value Reference Range Interpretation [...] 9.1 mg/dL 8.0-10.5 N CA) HEPATIC FUNCTION [id number] 21:34:00 Test Item Value Reference Range Interpretation [...] 92 IUnit/L 20-125 N code = ALKP) [id number] 21:34:00 Test Item Value Reference Range Interpretation [...] may anayeli y by method. CBC W/AUTO [id number] 21:24:00 Test Item Value Reference Range Interpretation [...] (test code NO = MDIFF) CBC W/AUTO [id number] 21:23:00 Test Item Value Reference Range Interpretation [...] MANUAL DIFF REQUIRED (test code = MDIFF) [id number] 21:03:00 Test Item Value Reference Range Interpretation Comments GLUBED (test code = 387 MG/DL 70-110 H Performe d by certified GLUBED) oxygraph operator at [facility] [id number] 23:21:00 Test Item Value Reference Range Interpretation Comments GLUBED (test code = 372 MG/DL 70-110 H Performe d by certified GLUBED) oxygraph operator at [facility] BASIC METABOLIC [id number] 20:11:00 Test Item Value Reference Range Interpretation [...] code = 9.2 mg/dL 8.0-10.5 N CA) [id number] 20:11:00 Test Item Value Reference Range Interpretation [...] titative results may anayeli y by method. [id number] 20:11:00 Test Item Value Reference Range Interpretation [...] Legal orEmployment ev aluation purposes. CBC W/AUTO [id number] 20:01:00 Test Item Value Reference Range Interpretation [...] (test code NO = MDIFF) CBC W/AUTO [id number] 19:57:00 Test Item Value Reference Range Interpretation [...] code = MDIFF) - XR CHEST 1 [id number] 19:39:00 [facility] 1975 Sex: M FAX: Anamika Enamorado [phone] [place]: St: REG Name: BRITT FUENTES [facility] : 1975 Age/S: 44/M [address] [place] [address] Unit #: [id number] Loc: [place] [address] Phys: Anamika Dill Acct: [id number] Dis Date: Statu s: REG ER PHONE #: [phone] Exam Date: 02/18/20201919 FAX #: [phone] Reason: Cough EXAMS: CPT CODE: [id number] XR CHEST 1 V 47701 Portable single view AP chest INDICATION: Cough [...] D/T: S: 02/18/2020 (1941) PAGE 1 Signed [id number] 22:06:00 Test Item Value Reference Range Interpretation Comments GLUBED (test code = 159 MG/DL 70-110 H Performe d by certified GLUBED) 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 UA RFLX MICR CULT IF [id number] 21:22:00 Test Item Value Reference Range Interpretation [...] Suprapubic PainSpecimen Description: CLEAN CATCH BASIC METABOLIC [id number] 20:58:00 Test Item Value Reference Range Interpretation [...] 9.8 mg/dL 8.0-10.5 N CA) HEPATIC FUNCTION [id number] 20:58:00 Test Item Value Reference Range Interpretation [...] 123 IUnit/L 20-125 N code = ALKP) [id number] 20:58:00 Test Item Value Reference Range Interpretation Comments MAGNESIUM (test code = MAG) 1.66 mg/dL 1.8-2.4 L [id number] 20:58:00 Test Item Value Reference Range Interpretation [...] titative results may anayeli y by method. [id number] 20:58:00 Test Item Value Reference Range Interpretation Comments ACETAMINOPHEN (test code = ACET) < 0.2 mg/dL 1.0-3.0 L [id number] 20:58:00 Test Item Value Reference Range Interpretation Comments SALICYLATE (test code = DAVE) < 3.0 mg/dL 0.0-20.0 N [id number] 20:58:00 Test Item Value Reference Range Interpretation [...] al orEmployment ev aluation purposes. CBC W/O [id number] 20:43:00 Test Item Value Reference Range Interpretation [...] fL 7.0-9.0 H = MPV) CBC W/O [id number] 20:41:00 Test Item Value Reference Range Interpretation [...] = PLT) 268 x10 3/uL 150-400 N [id number] 01:42:00 Test Item Value Reference Range Interpretation Comments GLUBED (test code = 382 MG/DL 70-110 H Performe d by certified GLUBED) oxygraph operator at [facility] [id number] 08:11:00 Test Item Value Reference Range Interpretation Comments GLUBED (test code = 236 MG/DL 70-110 H Performe d by certified GLUBED) oxygraph operator at [facility] [id number] 05:04:00 Test Item Value Reference Range Interpretation Comments GLUBED (test code = 356 MG/DL 70-110 H Performe d by certified GLUBED) oxygraph operator at [facility] [id number] 03:31:00 Test Item Value Reference Range Interpretation Comments GLUBED (test code = 410 MG/DL 70-110 H Performe d by certified GLUBED) oxygraph operator at [facility] DRUGS OF ABUSE SCREEN [id number] 01:08:00 Test Item Value Reference Range Interpretation [...] ed for non-medical pur poses. BASIC METABOLIC [id number] 00:51:00 Test Item Value Reference Range Interpretation [...] 10.7 mg/dL 8.0-10.5 H CA) HEPATIC FUNCTION [id number] 00:51:00 Test Item Value Reference Range Interpretation [...] 140 IUnit/L 20-125 H code = ALKP) [id number] 00:51:00 Test Item Value Reference Range Interpretation Comments ACETAMINOPHEN (test code = ACET) < 0.2 mg/dL 1.0-3.0 L [id number] 00:51:00 Test Item Value Reference Range Interpretation Comments SALICYLATE (test code = DAVE) < 3.0 mg/dL 0.0-20.0 N [id number] 00:51:00 Test Item Value Reference Range Interpretation [...] or Legal orEmployment ev aluation purposes. URINALYSIS [id number] 00:34:00 Test Item Value Reference Range Interpretation [...] SEEN /HPF NONE SEEN SQU) CBC W/O [id number] 00:26:00 Test Item Value Reference Range Interpretation [...] fL 7.0-9.0 H = MPV) BASIC METABOLIC [id number] 04:54:00 Test Item Value Reference Range Interpretation [...] N Specimen comments: Clean CatchHEPATIC FUNCTION PANEL [id number] 04:54:00 Test Item Value Reference Range Interpretation [...] N code = ALKP) Specimen comments: Clean [id number] 04:54:00 Test Item Value Reference Range Interpretation Comments LIPASE (test code = LIP) 157 Units/L 65.0-230.0 N Specimen comments: Clean [id number] 04:54:00 Test Item Value Reference Range Interpretation Comments ACETAMINOPHEN (test <2.0 mcg/ml 10.0-30.0 L Result i s in code = ACET) Microgram per milliliter. Specimen comments: Clean [id number] 04:54:00 Test Item Value Reference Range Interpretation Comments LITHIUM (test code = LITH) <0.1 MMOL/L 0.6-1.2 LL Specimen comments: Clean [id number] 04:54:00 Test Item Value Reference Range Interpretation Comments SALICYLATE (test code = DAVE) 5.7 mg/dl 2.8-20.0 N Specimen comments: Clean CatchVALPROIC ACID (DEPAKENE)2020-01-19 04:54:00 Test Item Value Reference Range Interpretation Comments VALPROIC ACID <3.0 mcg/dL 50-100 L The physicia n must (DEPAKENE) (test determine t he code = VALP) appropriate therapeutic range for each patient. Specimen comments: Clean [id number] 04:54:00 Test Item Value Reference Range Interpretation Comments ALCOHOL (test code 0.00 gm/dL 0.00-0.00 N ETHYL ALC OHOL VALUES - = ALC) INTERPRETATION: 0.050 GM/DL - NOT INT OXICATED 0.100 GM/DL - INTOXICATED 0.3 50-0.450 GM/DL - SEVEREL Y INTOXICATED 0.5 50 GM/DL- FATAL INTOXICAT ION Specimen comments: Clean CatchBASIC METABOLIC [id number] 04:53:00 Test Item Value Reference Range Interpretation [...] N Specimen comments: Clean CatchHEPATIC FUNCTION PANEL [id number] 04:53:00 Test Item Value Reference Range Interpretation [...] N code = ALKP) Specimen comments: Clean [id number] 04:53:00 Test Item Value Reference Range Interpretation Comments LIPASE (test code = LIP) 157 Units/L 65.0-230.0 N Specimen comments: Clean [id number] 04:53:00 Test Item Value Reference Range Interpretation Comments ACETAMINOPHEN (test <2.0 mcg/ml 10.0-30.0 L Result i s in code = ACET) Microgram per milliliter. Specimen comments: Clean [id number] 04:53:00 Test Item Value Reference Range Interpretation Comments LITHIUM (test code = LITH) MMOL/L 0.6-1.2 Specimen comments: Clean [id number] 04:53:00 Test Item Value Reference Range Interpretation Comments SALICYLATE (test code = DAVE) 5.7 mg/dl 2.8-20.0 N Specimen comments: Clean CatchVALPROIC ACID (DEPAKENE)2020-01-19 04:53:00 Test Item Value Reference Range Interpretation Comments VALPROIC ACID <3.0 mcg/dL 50-100 L The physicia n must (DEPAKENE) (test determine t he code = VALP) appropriate therapeutic range for each patient. Specimen comments: Clean [id number] 04:53:00 Test Item Value Reference Range Interpretation Comments ALCOHOL (test code 0.00 gm/dL 0.00-0.00 N ETHYL ALC OHOL VALUES - = ALC) INTERPRETATION: 0.050 GM/DL - NOT INT OXICATED 0.100 GM/DL - INTOXICATED 0.3 50-0.450 GM/DL - SEVEREL Y INTOXICATED 0.5 50 GM/DL- FATAL INTOXICAT ION Specimen comments: Clean CatchBASIC METABOLIC [id number] 04:46:00 Test Item Value Reference Range Interpretation [...] 8.0-10.5 Specimen comments: Clean CatchHEPATIC FUNCTION PANEL [id number] 04:46:00 Test Item Value Reference Range Interpretation [...] 50.0-136.0 code = ALKP) Specimen comments: Clean [id number] 04:46:00 Test Item Value Reference Range Interpretation Comments LIPASE (test code = LIP) Units/L 65.0-230.0 Specimen comments: Clean [id number] 04:46:00 Test Item Value Reference Range Interpretation Comments ACETAMINOPHEN (test code = ACET) mcg/ml 10.0-30.0 Specimen comments: Clean [id number] 04:46:00 Test Item Value Reference Range Interpretation Comments LITHIUM (test code = LITH) MMOL/L 0.6-1.2 Specimen comments: Clean [id number] 04:46:00 Test Item Value Reference Range Interpretation Comments SALICYLATE (test code = DAVE) mg/dl 2.8-20.0 Specimen comments: Clean CatchVALPROIC ACID (DEPAKENE)2020-01-19 04:46:00 Test Item Value Reference Range Interpretation Comments VALPROIC ACID (DEPAKENE) (test code = mcg/dL 50-100 VALP) Specimen comments: Clean [id number] 04:46:00 Test Item Value Reference Range Interpretation Comments ALCOHOL (test code = ALC) gm/dL 0.00-0.00 Specimen comments: Clean CatchDRUGS OF ABUSE SCREEN [id number] 04:45:00 Test Item Value Reference Range Interpretation [...] code = [place]) Specimen comments: Clean CatchURINALYSIS [id number] 04:45:00 Test Item Value Reference Range Interpretation [...] NONE BACU) Specimen comments: Clean CatchCBC W/AUTO [id number] 04:40:00 Test Item Value Reference Range Interpretation [...] 0.00 X10 3uL 0.00-0.01 N NRBC#) URINALYSIS [id number] 04:39:00 Test Item Value Reference Range Interpretation [...] code = NONE BACU) Specimen comments: Clean MpobwBOVY-ObA-6 (COVID-19) RNA [Presence] in Respiratory specimen by AYALA with probe [id number] 14:14:30 Test Item Value Reference Range Interpretation Comments SARS-CoV-2 (COVID-19) RNA Not detected Not-Detected [Presence] in Respiratory specimen by AYALA with probe detection (test code = 04949-4) [id number] 12:04:00 Test Item Value Reference Range Interpretation Comments GLUBED (test code = 255 MG/DL 70-110 H Performe d by certified GLUBED) oxygraph operator at [facility] - XR CHEST 1 [id number] 05:28:00 FAX: Willy Flores DO [phone] [place]: St: REG Name: BRITT FUETNES [facility] : 1975 Age/S: 44/M [address] [place] [address] Blvd Unit#: [id number] Loc: [place] [address] Phys: Willy Askew DO Acct: [id number] Dis Date: Status: REG ER PHONE #: [phone] Exam Date: 12/01/2019501 FAX #: [phone] Reason: CHEST PAIN EXAMS: CPT CODE: [id number] XR CHEST 1 V 76017 Chest x-ray 1 view History: Chest pain [...] By: OniUK1 Orig Print D/T: S: 12/01/2019 (7113) PAGE 1 Signed ReportCOMPREHENSIVE METABOLIC [id number] 04:02:00 Test Item Value Reference Range Interpretation [...] 20-125 N TOTAL (test code = ALKP) [id number] 04:02:00 Test Item Value Reference Range Interpretation [...] titative results may anayeli y by method. [id number] 04:02:00 Test Item Value Reference Range Interpretation Comments ALCOHOL (test code 14.9 mg/dL <3.0 H Ethyl Alc ohol = ALC) Interpretation: 100 mg/dL - Legally Intoxic ated 300-400 mg/ dL - Severely Intoxi cated >400 mg/dL - Potentially LethalResults a re for Medical purpose s only, and not for Leg al orEmployment ev aluation purposes. CBC W/AUTO [id number] 03:32:00 Test Item Value Reference Range Interpretation [...] DIFF REQUIRED (test code NO = MDIFF) [id number] 05:23:00 Test Item Value Reference Range Interpretation Comments SODIUM (test code = NA) 135 mEq/L 134-147 N DRUGS OF ABUSE SCREEN [id number] 23:56:00 Test Item Value Reference Range Interpretation [...] ed for non-medical pur poses. BASIC METABOLIC [id number] 23:54:00 Test Item Value Reference Range Interpretation [...] 8.9 mg/dL 8.0-10.5 N CA) HEPATIC FUNCTION [id number] 23:54:00 Test Item Value Reference Range Interpretation [...] in INTERNATIONAL (test code = CK) UNITS/LITER [id number] 23:54:00 Test Item Value Reference Range Interpretation Comments ACETAMINOPHEN (test code = ACET) < 2 ug/mL 10-30 L [id number] 23:54:00 Test Item Value Reference Range Interpretation Comments SALICYLATE (test code = DAVE) 5.3 mg/dL 2.8-20.0 N VALPROIC ACID (DEPAKENE)2019-10-17 23:54:00 Test Item Value Reference Range Interpretation Comments VALPROIC ACID (DEPAKENE) (test < 3 mcg/mL 50.0-100.0 L code = VALP) [id number] 23:54:00 Test Item Value Reference Range Interpretation Comments ALCOHOL (test code < 0.003 G/dL <0.003 Ethyl Alc ohol = ALC) Interpretation: 0.100 gm/dL - Legally Intoxic ated 0.300-0.40 0 gm/dL - Severely Into xicated >0.400 gm/dL - Potentially LethalResults a re for Medical purpose s only, and not for Leg al orEmployment ev aluation purposes. DRUGS OF ABUSE SCREEN [id number] 23:46:00 Test Item Value Reference Range Interpretation [...] ed for non-medical pur poses. BASIC METABOLIC [id number] 23:44:00 Test Item Value Reference Range Interpretation [...] CA) 8.9 mg/dL 8.0-10.5 N HEPATIC FUNCTION [id number] 23:44:00 Test Item Value Reference Range Interpretation [...] KINASE (CK) (test code = CK) 35-232 [id number] 23:44:00 Test Item Value Reference Range Interpretation Comments ACETAMINOPHEN (test code = ACET) ug/mL 10-30 [id number] 23:44:00 Test Item Value Reference Range Interpretation Comments SALICYLATE (test code = DAVE) mg/dL 2.8-20.0 VALPROIC ACID (DEPAKENE)2019-10-17 23:44:00 Test Item Value Reference Range Interpretation Comments VALPROIC ACID (DEPAKENE) (test code = mcg/mL 50.0-100.0 VALP) [id number] 23:44:00 Test Item Value Reference Range Interpretation Comments ALCOHOL (test code = ALC) G/dL <0.003 URINALYSIS [id number] 23:38:00 Test Item Value Reference Range Interpretation [...] NONE SEEN code = SQU) CBC W/O [id number] 23:30:00 Test Item Value Reference Range Interpretation [...] in Respiratory specimen by AYALA with probe [id number] 12:42:52 Test Item Value Reference Range Interpretation Comments SARS coronavirus 2 RNA Not detected Not-Detected [Presence] in Respiratory specimen by AYALA with probe detection (test code = 64801-5) BASIC METABOLIC [id number] 09:01:00 Test Item Value Reference Range Interpretation [...] 8.8 mg/dL 8.0-10.5 N CA) HEPATIC FUNCTION [id number] 09:01:00 Test Item Value Reference Range Interpretation [...] 105 IUnit/L 20-125 N code = ALKP) [id number] 09:01:00 Test Item Value Reference Range Interpretation Comments ACETAMINOPHEN (test code = ACET) < 2 ug/mL 10-30 L [id number] 09:01:00 Test Item Value Reference Range Interpretation Comments SALICYLATE (test code = DAVE) 5.4 mg/dL 2.8-20.0 N [id number] 09:01:00 Test Item Value Reference Range Interpretation Comments ALCOHOL (test code < 0.003 G/dL <0.003 Ethyl Alc ohol = ALC) Interpretation: 0.100 gm/dL - Legally Intoxic ated 0.300-0.40 0 gm/dL - Severely Into xicated >0.400 gm/dL - Potentially LethalResults a re for Medical purpose s only, and not for Leg al orEmployment ev aluation purposes. BASIC METABOLIC [id number] 08:57:00 Test Item Value Reference Range Interpretation [...] 8.8 mg/dL 8.0-10.5 N CA) HEPATIC FUNCTION [id number] 08:57:00 Test Item Value Reference Range Interpretation [...] 105 IUnit/L 20-125 N code = ALKP) [id number] 08:57:00 Test Item Value Reference Range Interpretation Comments ACETAMINOPHEN (test code = ACET) ug/mL -30 [id number] 08:57:00 Test Item Value Reference Range Interpretation Comments SALICYLATE (test code = DAVE) 5.4 mg/dL 2.8-20.0 N [id number] 08:57:00 Test Item Value Reference Range Interpretation Comments ALCOHOL (test code < 0.003 G/dL <0.003 Ethyl Alc ohol = ALC) Interpretation: 0.100 gm/dL - Legally Intoxic ated 0.300-0.40 0 gm/dL - Severely Into xicated >0.400 gm/dL - Potentially LethalResults a re for Medical purpose s only, and not for Leg al orEmployment ev aluation purposes. DRUGS OF ABUSE SCREEN [id number] 08:56:00 Test Item Value Reference Range Interpretation [...] ed for non-medical pur poses. BASIC METABOLIC [id number] 08:45:00 Test Item Value Reference Range Interpretation [...] CA) 8.8 mg/dL 8.0-10.5 N HEPATIC FUNCTION [id number] 08:45:00 Test Item Value Reference Range Interpretation Comments TOTAL PROTEIN (test code = PROT) g/dL 6.4-8.2 ALBUMIN (test code = ALB) g/dL 3.4-5.0 BILIRUBIN TOTAL (test code = BILT) MG/DL <1.5 BILIRUBIN DIRECT (test code = BILD) MG/DL 0.0-0.30 SGOT/AST (test code = AST) IUnit/L 15-37 SGPT/ALT (test code = ALT) IUnit/L 15-65 ALKALINE PHOSPHATASE TOTAL (test IUnit/L 20-125 code = ALKP) [id number] 08:45:00 Test Item Value Reference Range Interpretation Comments ACETAMINOPHEN (test code = ACET) ug/mL 10-30 [id number] 08:45:00 Test Item Value Reference Range Interpretation Comments SALICYLATE (test code = DAVE) mg/dL 2.8-20.0 [id number] 08:45:00 Test Item Value Reference Range Interpretation Comments ALCOHOL (test code = ALC) G/dL <0.003 CBC W/O [id number] 08:30:00 Test Item Value Reference Range Interpretation [...] H = MPV) - XR CHEST 1 [id number] 07:19:00 FAX: Willy Dahl MD [phone] [place]: St: PRE Name: BRITT FUENTES [facility] : 1975 Age/S: 44/M [address] [place] [address] Unit#: [id number] Loc: [place] [address] Phys: Willy Dahl MD Acct: [id number] Dis Date: Status: PRE ER PHONE #: [phone] Exam Date: 10/07/2019718 FAX #: [phone] Reason: SOB EXAMS: CPT CODE: [id number] XR CHEST 1 V 27082 Study: - XR CHEST 1 V 10/07/2019 6:58 AM PatientName: BRITT FUENTES MR: [id number] : 1975; Age: 44 years y/o Male Ordering Physician: Willy Dahl MD Clinical Indication: SOB Comparison: None FINDINGS LUNGS: The lungs are clear of consolidation, pleural effusion, and pneumothorax. HEART AND MEDIASTINUM: Normal size heart. LINES: None. OSSEOUS STRUCTURES: No fracture, dislocation, or suspicious focal osseous lesion. OTHER: None. IMPRESSION: No acute abnormality as above discussed. SL: [id number] at 0719 Reported and signed by: Spike Brooks M.D. CC: Willy Dahl MD Technologist: RT Colton(Jose Alberto) Trnscrd Date/Time/By: 10/07/2019 (07) : By: [email or web address] Orig Print D/T: S: 10/07/2019 (4773) PAGE 1 Signed [id number] 00:21:00 Test Item Value Reference Range Interpretation Comments GLUBED (test code = 95 MG/DL 70-110 N Performe d by certified GLUBED) oxygraph operator at [facility] COMPREHENSIVE METABOLIC [id number] 15:35:00 Test Item Value Reference Range Interpretation [...] 20-125 N TOTAL (test code = ALKP) [id number] 15:35:00 Test Item Value Reference Range Interpretation Comments ALCOHOL (test code < 0.003 G/dL <0.003 Ethyl Alc ohol = ALC) Interpretation: 0.100 gm/dL - Legally Intoxic ated 0.300-0.40 0 gm/dL - Severely Into xicated >0.400 gm/dL - Potentially LethalResults a re for Medical purpose s only, and not for Leg al orEmployment ev aluation purposes. COMPREHENSIVE METABOLIC [id number] 15:30:00 Test Item Value Reference Range Interpretation [...] TOTAL (test IUnit/L 20-125 code = ALKP) [id number] 15:30:00 Test Item Value Reference Range Interpretation Comments ALCOHOL (test code = ALC) G/dL <0.003 DRUGS OF ABUSE SCREEN [id number] 15:30:00 Test Item Value Reference Range Interpretation [...] us ed for non-medical pur poses. URINALYSIS [id number] 15:29:00 Test Item Value Reference Range Interpretation [...] 0-5 /HPF NONE SEEN SQU) CBC W/AUTO [id number] 15:16:00 Test Item Value Reference Range Interpretation [...] (test code NO = MDIFF) WHOLE BLOOD [id number] 11:55:00 Test Item Value Reference Range Interpretation Comments WHOLE BLOOD GLUCOSE 132 MG/DL 70-99 Fastin g glucose (test code = POC GLU) normal <100 MG/DL- [employer] recommend ation WHOLE BLOOD [id number] 07:00:00 Test Item Value Reference Range Interpretation Comments WHOLE BLOOD GLUCOSE 342 MG/DL 70-99 H Fastin g glucose (test code = POC GLU) normal <100 MG/DL- [employer] recommend ation URINE DRUG [id number] 01:31:00 Test Item Value Reference Range Interpretation [...] PCP (test code = NEGATIVE NEGATIVE BMTPCP) [id number] 00:29:00 Test Item Value Reference Range Interpretation [...] H UAMICRO (test code = UAMICRO) NO [id number] 23:22:00 Test Item Value Reference Range Interpretation [...] glucose = GLUCOSE) normal <100 MG/ DL- [employer] recommendation* * CALCIUM (test [...] mL/min/1.73m2 mL/min/1.73m2 is considered norm al. CREATINE [id number] 23:22:00 Test Item Value Reference Range Interpretation Comments CK (test code = CK) 335 U/L 55-170 H BLOOD ALCOHOL (ETOH)2019-08-25 23:21:00 Test Item Value Reference Range Interpretation Comments ALCOHOL BLOOD LEVEL <10 MG/DL 0-10 Results are to be used (test code = ALC BLD) for me dical purposes (treatment) onl y. Not intended for no n medical purpose s. [id number] 23:06:00 Test Item Value Reference Range Interpretation [...] K/UL 1.2-7.2 = NEUT) Urinalysis specimen collection [id number] 18:25:00 Test Item Value Reference Range Interpretation Comments Urine Source (test code = 46162-2) URINE [facility] AnamikaColor of Urine by [id number] 18:25:00 Test Item Value Reference Range Interpretation Comments Urine Color (test code = 19896-6) Lt Yellow [facility] ElizabethUrine clarity [id number] 18:25:00 Test Item Value Reference Range Interpretation Comments Urine Appearance (test code = 94632-4) Clear [facility] ElijarodUrine pH measurement by automated test [id number] 18:25:00 Test Item Value Reference Range Interpretation Comments Urine pH (test code = 04522-1) 5.5 [facility]pecific gravity of Urine by Automated test strip 2019-08-25 18:25:00 Test Item Value Reference Range Interpretation Comments Urine Specific [place] (test code = > 1.030 73506-0) [facility] AnamikaUrine protein measurement by automated test strip (mass/volume)2019-08-25 18:25:00 Test Item Value Reference Range Interpretation Comments Urine Protein (test code = Negative mg/dL 31423-9) [facility] PollothUrine glucose measurement by automated test strip (mass/volume)2019-08-25 18:25:00 Test Item Value Reference Range Interpretation Comments Urine Glucose (UA) (test code = >1000 mg/dL 95167-1) [facility] ketones measurement by automated test strip (mass/volume)2019-08-25 18:25:00 Test Item Value Reference Range Interpretation Comments Urine Ketones (test code = Negative mg/dL 43654-0) [facility] erythrocytes count by automated test strip (number/volume)2019-08-25 18:25:00 Test Item Value Reference Range Interpretation Comments Urine Occult Blood (test code = Negative 33977-6) [facility] nitrite detection by automated test [id number] 18:25:00 Test Item Value Reference Range Interpretation Comments Urine Nitrite (test code = 50317-1) Negative [facility] total bilirubin measurement by automated test strip (mass/volume)2019-08-25 18:25:00 Test Item Value Reference Range Interpretation Comments Urine Bilirubin (test code = Negative mg/dL 05892-1) [facility] AnamikaUrine urobilinogen measurement by automated test strip (mass/volume)2019-08-25 18:25:00 Test Item Value Reference Range Interpretation Comments Urine Urobilinogen (test code Negative mg/dL = 07554-7) [facility]amikaUrine leukocytes count by automated test strip (number/volume)2019-08-25 18:25:00 Test Item Value Reference Range Interpretation Comments Urine Leukocyte Esterase Negative {Janie}/uL (test code = 69382-5) KASH YangMicroscopic examination of [id number] 18:25:00 Test Item Value Reference Range Interpretation Comments Microscopic Urinalysis (T) (test code = ----- 40409-6) [facility] sediment erythrocyte count by microscopy (number/high power field)2019-08-25 18:25:00 Test Item Value Reference Range Interpretation Comments Urine RBC (test code = 70579-7) 0-2 /[HPF] [facility] sediment leukocyte [...] Crystals (test code = None Seen /[HPF] 80825-7) [facility] sediment bacteria count by [...] Yeast (test code = None Seen /[HPF] 83694-4) [facility] comment [id number] 18:25:00 Test Item Value Reference Range Interpretation [...] Interpretation Comments Anion Gap (test code = 90691-8) [address] ElizabethSerum or plasma urea nitrogen measurement (mass/volume) 2019-08-25 02:07:00 Test Item Value Reference Range Interpretation Comments Blood Urea Nitrogen (test code = 9 mg/dL 3094-0) [facility] ElizabethSerum or plasma creatinine measurement (mass/volume) 2019-08-25 02:07:00 Test Item Value Reference Range Interpretation Comments Creatinine (test code = 2160-0) 1.0 mg/dL [facility] ElizabethGFR estimate [id number] 02:07:00 Test Item Value Reference Range Interpretation Comments Estimat Glomerular Filtration Rate 87 (test code = 00074-0) [facility] ElizabethSerum or plasma glucose measurement (mass/volume) 2019-08-25 02:07:00 Test Item Value Reference Range Interpretation Comments Glucose Level (test code = 2345-7) 343 mg/dL [facility] or plasma calcium measurement (mass/volume) 2019-08-25 02:07:00 Test Item Value Reference Range Interpretation Comments Calcium Level (test code = 43235-0) 8.6 mg/dL [facility] or plasma total bilirubin measurement (mass/volume) 2019-08-25 02:07:00 Test Item Value Reference Range Interpretation Comments Total Bilirubin (test code = 0.1 mg/dL 1974-05) [facility] or plasma aspartate aminotransferase measurement (enzymatic activity/volume)2019-08-25 02:07:00 Test Item Value Reference Range Interpretation Comments Aspartate Amino Transf (AST/SGOT) 17 U/L (test code = 1920-8) [facility] or plasma alanine aminotransferase measurement (enzymatic activity/volume)2019-08-25 02:07:00 Test Item Value Reference Range Interpretation Comments Alanine Aminotransferase (ALT/SGPT) 18 U/L (test code = 1742-6) [facility] or plasma protein measurement (mass/volume) 2019-08-25 02:07:00 Test Item Value Reference Range Interpretation Comments Total Protein (test code = 2885-2) 6.6 g/dL [facility] or plasma albumin measurement (mass/volume) 2019-08-25 02:07:00 Test Item Value Reference Range Interpretation Comments Albumin (test code = 1751-7) 3.8 g/dL [facility] plasma alkaline phosphatase measurement (enzymatic activity/volume)2019-08-25 02:07:00 Test Item Value Reference Range Interpretation Comments Alkaline Phosphatase (test code = 84 U/L 6768-6) [facility] CenterCreat[facility] ser/llqh1217-54-64 02:07:00 Test Item Value Reference Range Interpretation Comments Total Creatine Kinase (test code = 411 U/L 2157-6) [facility] Orleans[facility] or plasma free thyroxine (FT4) measurement (mass/volume)2019-08-25 02:07:00 Test Item Value Reference Range Interpretation Comments Free Thyroxine (test code = 0.83 ng/dL 3024-7) [facility]rum or plasma thyrotropin measurement with detection limit of 0.005 mIU/L or less (units/volume)2019-08-25 02:07:00 Test Item Value Reference Range Interpretation Comments Thyroid Stimulating Hormone 1.48 u[iU]/mL (TSH) (test code = 96425-0) [facility] Hospitalerum or plasma triiodothyronine (T3) measurement (mass/volume)2019-08-25 02:07:00 Test Item Value Reference Range Interpretation Comments Total Triiodothyronine (test code 0.95 ng/mL = 3053-6) [facility] Hospitalerum or plasma acetaminophen measurement (mass/volume) 2019-08-25 02:07:00 Test Item Value Reference Range Interpretation Comments Acetaminophen Level (test code = < 0.6 ug/mL 3298-7) [facility] Orleansalicylate ser/hjet4618-21-50 02:07:00 Test Item Value Reference Range Interpretation Comments Salicylates Level (test code = < 5.0 mg/dL 4024-6) [facility]er[facility] or plasma ethanol measurement (mass/volume) 2019-08-25 02:07:00 Test Item Value Reference Range Interpretation Comments Ethyl Alcohol Level (test code = < 10 mg/dL 5643-2) [facility] CenterAutomated blood leukocyte count (number/volume)2019-08-25 02:07:00 Test Item Value Reference Range Interpretation Comments White Blood Count (test code = 8.9 10*3/uL 6690-2) [facility] count (number/volume) 2019-08-25 02:07:00 Test Item Value Reference Range Interpretation Comments Red Blood Count (test code = 4.10 10*6/uL 789-8) [facility]anaBlood hemoglobin measurement (mass/volume)2019-08-25 02:07:00 Test Item Value Reference Range Interpretation Comments Hemoglobin (test code = 718-7) 13.1 g/dL [facility] CenterAutomated blood hematocrit (volume fraction)2019-08-25 02:07:00 Test Item Value Reference Range Interpretation Comments Hematocrit (test code = 4544-3) 37.7 % [facility] ElizabethAutomated erythrocyte mean corpuscular volume (MCV) bledwpdswsa8385-90-74 02:07:00 Test Item Value Reference Range Interpretation Comments Mean Corpuscular Volume (test code = 92 fL 787-2) [facility] ElizabethAutomated erythrocyte mean corpuscular hemoglobin (mass per erythrocyte)2019-08-25 02:07:00 Test Item Value Reference Range Interpretation Comments Mean Corpuscular Hemoglobin (test 32.0 pg code = 785-6) [facility] ElizabethAutomated erythrocyte mean corpuscular hemoglobin concentration measurement (mass/jrx1947-89-74 02:07:00 Test Item Value Reference Range Interpretation Comments Mean Corpuscular Hemoglobin Concent 34.7 g/dL (test code = 786-4) [facility] ElizabethAutomated erythrocyte distribution width [id number] 02:07:00 Test Item Value Reference Range Interpretation Comments Red Cell Distribution Width (test code 12.6 % = 788-0) [facility] ElizabethAutomated blood platelet count (count/volume)2019-08-25 02:07:00 Test Item Value Reference Range Interpretation Comments Platelet Count (test code = 228 10*3/uL 777-3) [facility] ElizabethAutomated blood platelet mean volume nhwrcbfvoct9461-09-67 02:07:00 Test Item Value Reference Range Interpretation Comments Mean Platelet Volume (test code = 10.0 30091-9) [facility] ElizabethAutomated blood neutrophil count as percentage of total nisdjagcvr8020-88-13 02:07:00 Test Item Value Reference Range Interpretation Comments Neutrophils (%) (Auto) (test code = 55 % 770-8) [facility] ElizabethAutomated blood immature granulocyte count as percentage of total dbwpyudezm0607-07-11 02:07:00 Test Item Value Reference Range Interpretation Comments Immature Granulocyte % (Auto) (test 0 % code = 71432-8) [facility] ElizabethAutomated blood lymphocyte count as percentage of total oeeotcfaql0929-56-55 02:07:00 Test Item Value Reference Range Interpretation Comments Lymphocytes (%) (Auto) (test code = 32 % 736-9) [facility] ElizabethAutomated blood monocyte count as percentage of total beabneulja4055-51-30 02:07:00 Test Item Value Reference Range Interpretation Comments Monocytes (%) (Auto) (test code = 9 % 5905-5) [facility] ElizabethAutomated blood eosinophil count as percentage of total kdpxmldowi4001-09-13 02:07:00 Test Item Value Reference Range Interpretation Comments Eosinophils (%) (Auto) (test code = 3 % 713-8) [facility] ElizabethAutomated blood basophil count as percentage of total ttvfjcuhvg4005-05-95 02:07:00 Test Item Value Reference Range Interpretation Comments Basophils (%) (Auto) (test code = 1 % 706-2) [facility] ElizabethAutomated blood nucleated erythrocyte count as percentage of total owtndwaemk5732-19-71 02:07:00 Test Item Value Reference Range Interpretation Comments Nucleated Red Blood Cells % (test code 0.0 % = 77014-1) [facility] ElizabethAutomated blood neutrophil count (number/volume)2019-08-25 02:07:00 Test Item Value Reference Range Interpretation Comments Neutrophils # (Auto) (test code = 4.9 10*3/uL 751-8) [facility] ElizabethAutomated blood immature granulocyte count as percentage of total chqaekwqqd3045-31-19 02:07:00 Test Item Value Reference Range Interpretation Comments Immature Granulocyte # (Auto) 0.0 10*3/uL (test code = 20701-4) [facility] ElizabethAutomated blood lymphocyte count (number/volume)2019-08-25 02:07:00 Test Item Value Reference Range Interpretation Comments Lymphocytes # (Auto) (test code = 2.8 10*3/uL 731-0) [facility] ElizabethBlood monocytes automated count (number/volume)2019-08-25 02:07:00 Test Item Value Reference Range Interpretation Comments Monocytes # (Auto) (test code = 0.8 10*3/uL 742-7) [facility] ElizabethAutomated blood eosinophil pyapg3312-41-67 02:07:00 Test Item Value Reference Range Interpretation [...] # 0.00 10*3/uL (test code = 771-6) [facility] ElizabethService comment 02:07:00 Test Item Value [...] Interpretation Comments Anion Gap (test code = 71858-8) [address] ElizabethSerum or plasma urea nitrogen measurement (mass/volume) 2019-08-25 02:07:00 Test Item Value Reference Range Interpretation Comments Blood Urea Nitrogen (test code = 9 mg/dL 3094-0) [facility] or plasma creatinine measurement (mass/volume) 2019-08-25 02:07:00 Test Item Value Reference Range Interpretation Comments Creatinine (test code = 2160-0) 1.0 mg/dL [facility] ElizabethGFR estimate [id number] 02:07:00 Test Item Value Reference Range Interpretation Comments Estimat Glomerular Filtration Rate 87 (test code = 17881-1) [facility]Serum or plasma glucose measurement (mass/volume) 2019-08-25 02:07:00 Test Item Value Reference Range Interpretation Comments Glucose Level (test code = 2345-7) 343 mg/dL [facility]ethSerum or plasma calcium measurement (mass/volume) 2019-08-25 02:07:00 Test Item Value Reference Range Interpretation Comments Calcium Level (test code = 93017-0) 8.6 mg/dL [facility]unmibethSerum or plasma total bilirubin measurement (mass/volume) 2019-08-25 02:07:00 Test Item Value Reference Range Interpretation Comments Total Bilirubin (test code = 0.1 mg/dL 1974-) [facility] or plasma aspartate aminotransferase measurement (enzymatic activity/volume)2019-08-25 02:07:00 Test Item Value Reference Range Interpretation Comments Aspartate Amino Transf (AST/SGOT) 17 U/L (test code = 1920-8) [facility] or plasma alanine aminotransferase measurement (enzymatic activity/volume)2019-08-25 02:07:00 Test Item Value Reference Range Interpretation Comments Alanine Aminotransferase (ALT/SGPT) 18 U/L (test code = 1742-6) [facility]ethSerum or plasma protein measurement (mass/volume) 2019-08-25 02:07:00 Test Item Value Reference Range Interpretation Comments Total Protein (test code = 2885-2) 6.6 g/dL [facility]unmibethSerum or plasma albumin measurement (mass/volume) 2019-08-25 02:07:00 Test Item Value Reference Range Interpretation Comments Albumin (test code = 1751-7) 3.8 g/dL [facility] ElizabethSerum or plasma alkaline phosphatase measurement (enzymatic activity/volume)2019-08-25 02:07:00 Test Item Value Reference Range Interpretation Comments Alkaline Phosphatase (test code = 84 U/L 6768-6) [facility]. SultanaCreatine kinase ser/ijvo4060-01-35 02:07:00 Test Item Value Reference Range Interpretation Comments Total Creatine Kinase (test code = 411 U/L 2157-6) [facility]ibethSerum or plasma free thyroxine (FT4) measurement (mass/volume)2019-08-25 02:07:00 Test Item Value Reference Range Interpretation Comments Free Thyroxine (test code = 0.83 ng/dL 3024-7) [facility]ererum or plasma thyrotropin measurement with detection limit of 0.005 mIU/L or less (units/volume)2019-08-25 02:07:00 Test Item Value Reference Range Interpretation Comments Thyroid Stimulating Hormone 1.48 u[iU]/mL (TSH) (test code = 35887-8) [facility]erum or plasma triiodothyronine (T3) measurement (mass/volume)2019-08-25 02:07:00 Test Item Value Reference Range Interpretation Comments Total Triiodothyronine (test code 0.95 ng/mL = 3053-6) [facility]erum or plasma acetaminophen measurement (mass/volume) 2019-08-25 02:07:00 Test Item Value Reference Range Interpretation Comments Acetaminophen Level (test code = < 0.6 ug/mL 3298-7) [facility] Centeralicylate ser/odla4216-18-99 02:07:00 Test Item Value Reference Range Interpretation Comments Salicylates Level (test code = < 5.0 mg/dL 4024-6) [facility]erum or plasma ethanol measurement (mass/volume) 2019-08-25 02:07:00 Test Item Value Reference Range Interpretation Comments Ethyl Alcohol Level (test code = < 10 mg/dL 5643-2) [facility] hospitalAutom[facility] leukocyte count (number/volume)2019-08-25 02:07:00 Test Item Value Reference Range Interpretation Comments White Blood Count (test code = 8.9 10*3/uL 6690-2) [facility] CenterBlood erythrocytes automated count (number/volume) [...] [facility] ElizabethAutomated erythrocyte mean corpuscular volume (MCV) tizhulkwprp1331-49-71 02:07:00 Test Item Value Reference Range Interpretation Comments Mean Corpuscular Volume (test code = 92 fL 787-2) [facility] ElizabethAutomated erythrocyte mean corpuscular hemoglobin (mass per erythrocyte)2019-08-25 02:07:00 Test Item Value Reference Range Interpretation Comments Mean Corpuscular Hemoglobin (test 32.0 pg code = 785-6) [facility] ElizabethAutomated erythrocyte mean corpuscular hemoglobin concentration measurement (mass/dmi6351-37-06 02:07:00 Test Item Value Reference Range Interpretation Comments Mean Corpuscular Hemoglobin Concent 34.7 g/dL (test code = 786-4) [facility] ElizabethAutomated erythrocyte distribution width viere6550-98-01 02:07:00 Test Item Value Reference Range Interpretation Comments Red Cell Distribution Width (test code 12.6 % = 788-0) [facility] ElizabethAutomated blood platelet count (count/volume)2019-08-25 02:07:00 Test Item Value Reference Range Interpretation Comments Platelet Count (test code = 228 10*3/uL 777-3) [facility] ElizabethAutomated blood platelet mean volume ksyznxtjyjl8570-16-59 02:07:00 Test Item Value Reference Range Interpretation Comments Mean Platelet Volume (test code = 10.0 26727-3) [facility] ElizabethAutomated blood neutrophil count as percentage of total ruchufdxdz0333-13-51 02:07:00 Test Item Value Reference Range Interpretation Comments Neutrophils (%) (Auto) (test code = 55 % 770-8) [facility] ElizabethAutomated blood immature granulocyte count as percentage of total pnymmhtjim2821-78-33 02:07:00 Test Item Value Reference Range Interpretation Comments Immature Granulocyte % (Auto) (test 0 % code = 84436-4) [facility] ElizabethAutomated blood lymphocyte count as percentage of total xhysxbwnay1386-91-78 02:07:00 Test Item Value Reference Range Interpretation Comments Lymphocytes (%) (Auto) (test code = 32 % 736-9) [facility] ElizabethAutomated blood monocyte count as percentage of total qlumutjswf9479-47-10 02:07:00 Test Item Value Reference Range Interpretation Comments Monocytes (%) (Auto) (test code = 9 % 5905-5) [facility] ElizabethAutomated blood eosinophil count as percentage of total bxnswajgcu5286-97-28 02:07:00 Test Item Value Reference Range Interpretation Comments Eosinophils (%) (Auto) (test code = 3 % 713-8) [facility] ElizabethAutomated blood basophil count as percentage of total xjwaypqdjb8912-82-13 02:07:00 Test Item Value Reference Range Interpretation Comments Basophils (%) (Auto) (test code = 1 % 706-2) [facility] ElizabethAutomated blood nucleated erythrocyte count as percentage of total kskxcymjxu5475-79-17 02:07:00 Test Item Value Reference Range Interpretation Comments Nucleated Red Blood Cells % (test code 0.0 % = 42906-3) [facility] ElizabethAutomated blood neutrophil count (number/volume)2019-08-25 02:07:00 Test Item Value Reference Range Interpretation Comments Neutrophils # (Auto) (test code = 4.9 10*3/uL 751-8) [facility] ElizabethAutomated blood immature granulocyte count as percentage of total fxfjjpdmly4321-34-54 02:07:00 Test Item Value Reference Range Interpretation Comments Immature Granulocyte # (Auto) 0.0 10*3/uL (test code = 73142-2) [facility] ElizabethAutomated blood lymphocyte count (number/volume)2019-08-25 02:07:00 Test Item Value Reference Range Interpretation Comments Lymphocytes # (Auto) (test code = 2.8 10*3/uL 731-0) [facility] monocytes automated count (number/volume)2019-08-25 02:07:00 Test Item Value Reference Range Interpretation Comments Monocytes # (Auto) (test code = 0.8 10*3/uL 742-7) [facility] CenterAutom[facility] blood eosinophil [id number] 02:07:00 Test Item Value Reference Range Interpretation Comments Eosinophils # (Auto) (test code = 0.3 10*3/uL 711-2) [facility] blood basophil count (number/volume)2019-08-25 02:07:00 Test Item Value Reference Range Interpretation Comments Basophils # (Auto) (test code = 0.1 10*3/uL 704-7) [facility] blood nucleated erythrocyte count (count/volume) 2019-08-25 02:07:00 Test Item Value Reference Range Interpretation Comments Nucleated Red Blood Cells # 0.00 10*3/uL (test code = 771-6) [facility] Orleanservice comment [id number] 02:07:00 Test Item Value Reference Range Interpretation Comments Manual Differential (test code = Not Ind 8265-1) [facility] BLOOD [id number] 22:40:00 Test Item Value Reference Range Interpretation Comments WHOLE BLOOD GLUCOSE 316 MG/DL 70-99 H Fastin g glucose (test code = POC GLU) normal <100 MG/DL- [employer] recommend ation URINE DRUG [id number] 19:12:00 Test Item Value Reference Range Interpretation [...] prelimenary and confirmation re sults will follow. [id number] 17:27:00 Test Item Value Reference Range Interpretation [...] (test code = UAMICRO) NO WHOLE BLOOD [id number] 17:25:00 Test Item Value Reference Range Interpretation Comments WHOLE BLOOD GLUCOSE 227 MG/DL 70-99 H Fastin g glucose (test code = POC GLU) normal <100 MG/DL- [employer] recommend ation [id number] 15:57:00 Test Item Value Reference Range Interpretation [...] intended for no n medical purpose s. [id number] 15:06:00 Test Item Value Reference Range Interpretation [...] glucose = GLUCOSE) normal <100 MG/ DL- [employer] recommendation* * CALCIUM (test [...] mL/min/1.73m2 mL/min/1.73m2 is considered norm al. ACETAMINOPHEN [id number] 15:05:00 Test Item Value Reference Range Interpretation Comments ACETAMIN (test code = <10 UG/ML 10-30 Therap utic range is ACETAMIN) 10-30 ug/mL Tox ic range is >200 ug/mL [id number] 15:05:00 Test Item Value Reference Range Interpretation Comments SALICYLA (test code <10.0 mg/L IN TERPRETIVE DATA = SALICYLA) Therapeut ic: <200 mg/L Toxic: >30 0 mg/L [place]: >600 mg /L Updated: 2009 CHEST 1 VIEW [id number] 14:15:[address] [address]SYTVRFGVRT IMAGING REPORTPatient Name: Arcadio FUENTES of Service: [id number]: 43 Sex: M Order #: [id number] [facility] 1975 [facility] Number: [id number] Record Number: [id number] Hospital Number: [id number] Physician: HERBER QUICK TANOrdering Physician: ADDIE GENAO 1 VIEW PORTABLE 08/21/2019 2:02 PM:History: Possible aspiration pneumonia. Intoxication with nausea andvomiting.Comp arison: None.Technique: 1 view chestFindings:The cardiomediastinal silhouette is normal. The lungsare clear withoutinfiltrate, effusion, or pneumothorax. The bones are intact.Impression:No acute cardiopulmonary process.Electronically Signed By: Monse Blank M.D., 08/21/2019 2:13 PMLegally authenticated by LUCY SHEA 2019-08-21 14:13:17WHOLE BLOOD [id number] 11:30:00 Test Item Value Reference Range Interpretation Comments WHOLE BLOOD GLUCOSE 175 MG/DL 70-99 H Fastin g glucose (test code = POC GLU) normal <100 MG/DL- [employer] recommend ation WHOLE BLOOD [id number] 05:55:00 Test Item Value Reference Range Interpretation Comments WHOLE BLOOD GLUCOSE 178 MG/DL 70-99 H Fastin g glucose (test code = POC GLU) normal <100 MG/DL- [employer] recommend ation WHOLE BLOOD [id number] 19:45:00 Test Item Value Reference Range Interpretation Comments WHOLE BLOOD GLUCOSE 152 MG/DL 70-99 H Fastin g glucose (test code = POC GLU) normal <100 MG/DL- [employer] recommend ation WHOLE BLOOD [id number] 16:40:00 Test Item Value Reference Range Interpretation Comments WHOLE BLOOD GLUCOSE 175 MG/DL 70-99 H Fastin g glucose (test code = POC GLU) normal <100 MG/DL- [employer] Assoc recommend ation WHOLE BLOOD [id number] 12:00:00 Test Item Value Reference Range Interpretation Comments WHOLE BLOOD GLUCOSE 280 MG/DL 70-99 H Fastin g glucose (test code = POC GLU) normal <100 MG/DL- [place] [facility] recommend ation WHOLE BLOOD [id number] 06:20:00 Test Item Value Reference Range Interpretation Comments WHOLE BLOOD GLUCOSE 156 MG/DL 70-99 H Fastin g glucose (test code = POC GLU) normal <100 MG/DL- [facility] recommend ation WHOLE BLOOD [id number] 04:30:00 Test Item Value Reference Range Interpretation Comments WHOLE BLOOD GLUCOSE 187 MG/DL 70-99 H Fastin g glucose (test code = POC GLU) normal <100 MG/DL- [facility] recommend ation VALPROIC [id number] 18:36:00 Test Item Value Reference Range Interpretation Comments VALP (test code = VALP) 94 UG/ML 50-100 WHOLE BLOOD [id number] 16:35:00 Test Item Value Reference Range Interpretation Comments WHOLE BLOOD GLUCOSE 192 MG/DL 70-99 H Fastin g glucose (test code = POC GLU) normal <100 MG/DL- [facility] recommend ation WHOLE BLOOD [id number] 11:30:00 Test Item Value Reference Range Interpretation Comments WHOLE BLOOD GLUCOSE 196 MG/DL 70-99 H Fastin g glucose (test code = POC GLU) normal <100 MG/DL- [place] recommend ation WHOLE BLOOD [id number] 07:00:00 Test Item Value Reference Range Interpretation Comments WHOLE BLOOD GLUCOSE 226 MG/DL 70-99 H Fastin g glucose (test code = POC GLU) normal <100 MG/DL- [facility] recommend ation WHOLE BLOOD [id number] 19:35:00 Test Item Value Reference Range Interpretation Comments WHOLE BLOOD GLUCOSE 117 MG/DL 70-99 H Fastin g glucose (test code = POC GLU) normal <100 MG/DL- [facility] recommend ation WHOLE BLOOD [id number] 16:15:00 Test Item Value Reference Range Interpretation Comments WHOLE BLOOD GLUCOSE 224 MG/DL 70-99 Fastin g glucose (test code = POC GLU) normal <100 MG/DL- [facility] recommend ation WHOLE BLOOD [id number] 12:15:00 Test Item Value Reference Range Interpretation Comments WHOLE BLOOD GLUCOSE 232 MG/DL 70-99 Fastin g glucose (test code = POC GLU) normal <100 MG/DL- [employer] recommend ation WHOLE BLOOD [id number] 06:35:00 Test Item Value Reference Range Interpretation Comments WHOLE BLOOD GLUCOSE 212 MG/DL 70-99 H Fastin g glucose (test code = POC GLU) normal <100 MG/DL- [place] recommend ation WHOLE BLOOD [id number] 19:30:00 Test Item Value Reference Range Interpretation Comments WHOLE BLOOD GLUCOSE 96 MG/DL 70-99 Fastin g glucose (test code = POC GLU) normal <100 MG/DL- [employer] recommendation* * WHOLE BLOOD [id number] 16:15:00 Test Item Value Reference Range Interpretation Comments WHOLE BLOOD GLUCOSE 172 MG/DL 70-99 Fastin g glucose (test code = POC GLU) normal <100 MG/DL- [employer] [employer] [facility] recommend ation WHOLE BLOOD [id number] 11:25:00 Test Item Value Reference Range Interpretation Comments WHOLE BLOOD GLUCOSE 124 MG/DL 70-99 H Fastin g glucose (test code = POC GLU) normal <100 MG/DL- [employer] [facility] recommend ation WHOLE BLOOD [id number] 11:25:00 Test Item Value Reference Range Interpretation Comments WHOLE BLOOD GLUCOSE 283 MG/DL 70-99 H Fastin g glucose (test code = POC GLU) normal <100 MG/DL- [employer] [facility] recommend ation WHOLE BLOOD [id number] 03:40:00 Test Item Value Reference Range Interpretation Comments WHOLE BLOOD GLUCOSE 119 MG/DL 70-99 H Fastin g glucose (test code = POC GLU) normal <100 MG/DL- [employer] [facility] recommend ation WHOLE BLOOD [id number] 16:20:00 Test Item Value Reference Range Interpretation Comments WHOLE BLOOD GLUCOSE 191 MG/DL 70-99 Fastin g glucose (test code = POC GLU) normal <100 MG/DL- [employer] [facility] recommend ation WHOLE BLOOD [id number] 11:30:00 Test Item Value Reference Range Interpretation Comments WHOLE BLOOD GLUCOSE 155 MG/DL 70-99 Fastin g glucose (test code = POC GLU) normal <100 MG/DL- [employer] [facility] recommend ation WHOLE BLOOD [id number] 06:25:00 Test Item Value Reference Range Interpretation Comments WHOLE BLOOD GLUCOSE 217 MG/DL 70-99 H Fastin g glucose (test code = POC GLU) normal <100 MG/DL- [employer] [employer] [facility] recommend ation WHOLE BLOOD [id number] 06:25:00 Test Item Value Reference Range Interpretation Comments WHOLE BLOOD GLUCOSE 161 MG/DL 70-99 H Fastin g glucose (test code = POC GLU) normal <100 MG/DL- [employer] [facility] recommend ation WHOLE BLOOD [id number] 06:25:00 Test Item Value Reference Range Interpretation Comments WHOLE BLOOD GLUCOSE 223 MG/DL 70-99 H Fastin g glucose (test code = POC GLU) normal <100 MG/DL- [employer] [facility] recommend ation WHOLE BLOOD [id number] 11:40:00 Test Item Value Reference Range Interpretation Comments WHOLE BLOOD GLUCOSE 181 MG/DL 70-99 H Fastin g glucose (test code = POC GLU) normal <100 MG/DL- [employer] [facility] recommend ation WHOLE BLOOD [id number] 05:55:00 Test Item Value Reference Range Interpretation Comments WHOLE BLOOD GLUCOSE 292 MG/DL 70-99 H Fastin g glucose (test code = POC GLU) normal <100 MG/DL- [employer] [facility] recommend ation WHOLE BLOOD [id number] 19:25:00 Test Item Value Reference Range Interpretation Comments WHOLE BLOOD GLUCOSE 84 MG/DL 70-99 Fastin g glucose (test code = POC GLU) normal <100 MG/DL- [employer] [facility] [facility] recommendation* * WHOLE BLOOD [id number] 16:10:00 Test Item Value Reference Range Interpretation Comments WHOLE BLOOD GLUCOSE 348 MG/DL 70-99 H Fastin g glucose (test code = POC GLU) normal <100 MG/DL- [employer] [facility] recommend ation WHOLE BLOOD [id number] 11:20:00 Test Item Value Reference Range Interpretation Comments WHOLE BLOOD GLUCOSE 282 MG/DL 70-99 Fastin g glucose (test code = POC GLU) normal <100 MG/DL- [employer] [facility] [facility] recommend ation BLOOD [id number] 07:53:00 Test Item Value Reference Range Interpretation Comments Report Text (test [facility]7 code = Report Text) Report Text7 (test BLOOD CULTURES HELD FOR code = Report 5 DAYS BEFORE FINAL Text7) Report Text8 (test code = Report Text8) Report Text9 (test CITIZEN [place] code = Report MICROBIOLOGY SUGGESTS THAT Text9) Report Text10 (test MOST CASES OF BACTEREMIA code = Report ARE DETECTED BY USING Text10) Report Text11 (test THREE SETS OF SEPARATELY code = Report COLLECTED BLOOD CULTURES. Text11) Report Text12 (test [facility] 2019[facility] 1128 code = Report Text12) [...] code = Report Text17) Report Text18 (test [facility] 2019[facility] 1129 code = Report Text18) Report Text19 (test COLLECTION SITE code = Report UNSPECIFIED Text19) Report Text20 (test [facility] 2019-[facility]-27 645 code = Report Text20) [...] FINAL REPORT code = Report Text30) BLOOD [id number] 07:53:00 Test Item Value Reference Range Interpretation Comments Report Text (test [facility] 2019[facility] 1127 code = Report Text) Report Text7 (test BLOOD CULTURES HELD FOR code = Report 5 DAYS BEFORE FINAL Text7) Report Text8 (test code = Report Text8) Report Text9 (test CITIZ[place] [employer] [place] code = Report MICROBIOLOGY SUGGESTS THAT Text9) Report Text10 (test MOST CASES OF BACTEREMIA code = Report ARE DETECTED BY USING Text10) Report Text11 (test THREE SETS OF SEPARATELY code = Report COLLECTED BLOOD CULTURES. Text11) Report Text12 (test [facility] 2019[facility] 1128 code = Report Text12) [...] code = Report Text17) Report Text18 (test [facility] 2019-[facility]26 1125 code = Report Text18) Report Text19 (test COLLECTION SITE code = Report UNSPECIFIED Text19) Report Text20 (test [facility] 2019-[facility]-27 645 code = Report Text20) [...] code = Report Text30) HEPATITIS C ANTIBODY [id number] 19:39:00 Test Item Value Reference Range Interpretation [...] confirmation re sults will follow. URINE DRUG [id number] 18:14:00 Test Item Value Reference Range Interpretation [...] intended for no n medical purpose s. [id number] 18:14:00 Test Item Value Reference Range Interpretation [...] glucose = GLUCOSE) normal <100 MG/ DL- [employer] recommendation* * CALCIUM (test [...] mL/min/1.73m2 mL/min/1.73m2 is considered norm al. CREATINE [id number] 18:14:00 Test Item Value Reference Range Interpretation Comments CK (test code = CK) 545 U/L 55-170 H [id number] 17:51:00 Test Item Value Reference Range Interpretation [...] 1.000-1.025 UAMICRO (test code = UAMICRO) NO [id number] 17:40:00 Test Item Value Reference Range Interpretation [...] 5.2 K/UL 1.2-7.2 = NEUT) Creatine kinase ser/[id number] 00:48:00 Test Item Value Reference Range Interpretation Comments Total Creatine Kinase (test code = 854 U/L 7-6) [facility] epithelial cell count by microscopy (number/high power field)2019-07-29 20:33:00 Test Item Value Reference Range Interpretation Comments Urine Epithelial Cells (test None Seen /[HPF] code = 5787-7) [facility] crystal count by microscopy (number/high power field)2019-07-29 20:33:00 Test Item Value Reference Range Interpretation Comments Urine Crystals (test code = None Seen /[HPF] 04795-7) [facility] bacteria count by microscopy (number/high power field)2019-07-29 20:33:00 Test Item Value Reference Range Interpretation Comments Urine Bacteria (test code = None Seen /[HPF] 5769-5) [facility] casts count by microscopy (number/low power [...] Yeast (test code = None Seen /[HPF] 21489-8) [facility] comment 20:33:00 Test Item Value Reference Range Interpretation Comments Urinalysis Comment (test code = 8262-8) * [facility] comment 20:33:00 Test Item Value Reference Range Interpretation Comments Urine Culture Indicated (test code = Not Ind 8264-4) [facility] [id number] 20:33:00 Test Item Value Reference Range Interpretation Comments Urine Methamphetamines Screen Negative ng/mL (test code = 39956-7) [facility] propoxyphene screening [id number] 20:33:00 Test Item Value Reference Range Interpretation Comments Urine Propoxyphene Screen Negative ng/mL (test code = 18381-6) [facility] amphetamines detection by screening [id number] 20:33:00 Test Item Value Reference Range Interpretation Comments Urine Amphetamines Screen Negative ng/mL (test code = 29193-0) [facility] buprenorphine screen with reflex confirmation 2019-07-29 20:33:00 Test Item Value Reference Range Interpretation Comments Urine Buprenorphine (test code Negative ng/mL = 3414-0) [facility] barbiturates detection by screening [id number] 20:33:00 Test Item Value Reference Range Interpretation Comments Urine Barbiturates Screen Negative ng/mL (test code = 61550-4) [facility] benzodiazepines detection by screening method 2019-07-29 20:33:00 Test Item Value Reference Range Interpretation Comments Urine Benzodiazepines Screen Negative ng/mL (test code = 01958-2) [facility] benzoylecgonine detection by screening method 2019-07-29 20:33:00 Test Item Value Reference Range Interpretation Comments Urine Cocaine Screen (test Negative ng/mL code = 84941-7) [facility] methadone [id number] 20:33:00 Test Item Value Reference Range Interpretation Comments Urine Methadone, Qualitative Negative ng/mL (test code = 22873-7) [facility] opiates screening [id number] 20:33:00 Test Item Value Reference Range Interpretation Comments Urine Opiates Screen (test Negative ng/mL code = 77048-8) [facility] phencyclidine detection by screening method 2019-07-29 20:33:00 Test Item Value Reference Range Interpretation Comments Urine Phencyclidine Screen Negative ng/mL (test code = 39107-1) [facility] cannabinoids detection by screening [id number] 20:33:00 Test Item Value Reference Range Interpretation Comments Urine Cannabinoids (test code Negative ng/mL = 01166-8) [facility] urine tricyclic antidepressants detection 2019-07-29 20:33:00 Test Item Value Reference Range Interpretation Comments Ur Tricyclic Antidepressants Negative ng/mL Screen (test code = 08647-5) [facility] oxycodone detection by screening [id number] 20:33:00 Test Item Value Reference Range Interpretation Comments Urine Oxycodone Screen (test Negative ng/mL code = 65571-7) [facility] ElizabethSpecific gravity of Urine by Automated test strip 2019-07-29 20:33:00 Test Item Value Reference Range Interpretation Comments Urine Specific [place] (test code = 1.006 98362-8) [facility] pH measurement by automated test [id number] 20:33:00 Test Item Value Reference Range Interpretation Comments Urine pH (test code = 15632-7) 6.[address] [facility] drug screen comment [id number] 20:33:00 Test Item Value Reference Range Interpretation Comments Urine Drug Screen Comment (test code See Note = 93232-6) [facility] methamphetamine [id number] 20:33:00 Test Item Value Reference Range Interpretation Comments Urine Methamphetamines Screen Negative ng/mL (test code = 57532-1) [facility] propoxyphene screening [id number] 20:33:00 Test Item Value Reference Range Interpretation Comments Urine Propoxyphene Screen Negative ng/mL (test code = 32679-4) [facility] amphetamines detection by screening [id number] 20:33:00 Test Item Value Reference Range Interpretation Comments Urine Amphetamines Screen Negative ng/mL (test code = 20799-5) [facility] buprenorphine screen with reflex confirmation 2019-07-29 20:33:00 Test Item Value Reference Range Interpretation Comments Urine Buprenorphine (test code Negative ng/mL = 3414-0) [facility]unmibethUrine barbiturates detection by screening [id number] 20:33:00 Test Item Value Reference Range Interpretation Comments Urine Barbiturates Screen Negative ng/mL (test code = 27716-4) [facility] benzodiazepines detection by screening method 2019-07-29 20:33:00 Test Item Value Reference Range Interpretation Comments Urine Benzodiazepines Screen Negative ng/mL (test code = 36367-9) [facility] benzoylecgonine detection by screening method 2019-07-29 20:33:00 Test Item Value Reference Range Interpretation Comments Urine Cocaine Screen (test Negative ng/mL code = 15315-5) [facility] methadone [id number] 20:33:00 Test Item Value Reference Range Interpretation Comments Urine Methadone, Qualitative Negative ng/mL (test code = 85241-3) [facility]unmibethUrine opiates screening [id number] 20:33:00 Test Item Value Reference Range Interpretation Comments Urine Opiates Screen (test Negative ng/mL code = 32983-9) [facility] phencyclidine detection by screening method 2019-07-29 20:33:00 Test Item Value Reference Range Interpretation Comments Urine Phencyclidine Screen Negative ng/mL (test code = 39527-2) [facility] cannabinoids detection by screening [id number] 20:33:00 Test Item Value Reference Range Interpretation Comments Urine Cannabinoids (test code Negative ng/mL = 56325-4) [facility] urine tricyclic antidepressants detection 2019-07-29 20:33:00 Test Item Value Reference Range Interpretation Comments Ur Tricyclic Antidepressants Negative ng/mL Screen (test code = 41153-0) [facility]ominazabethUrine oxycodone detection by screening [id number] 20:33:00 Test Item Value Reference Range Interpretation Comments Urine Oxycodone Screen (test Negative ng/mL code = 85213-6) KASH Webberpecific gravity of Urine by Automated test strip 2019-07-29 20:33:00 Test Item Value Reference Range Interpretation Comments Urine Specific [place] (test code = 1.006 15013-0) [facility] AnamikaUrine pH measurement by automated test [id number] 20:33:00 Test Item Value Reference Range Interpretation Comments Urine pH (test code = 35009-3) 6.[address] [facility] drug screen comment [id number] 20:33:00 Test Item Value Reference Range Interpretation Comments Urine Drug Screen Comment (test code See Note = 05874-2) [facility] JesusbethAutomated blood leukocyte [...] [facility]. RominazabethAutomated erythrocyte mean corpuscular volume (MCV) [id number] 20:33:00 Test Item Value Reference Range Interpretation Comments Mean Corpuscular Volume (test code = 90 fL 787-2) [facility] ElizabethAutomated erythrocyte mean corpuscular hemoglobin (mass per erythrocyte)2019-07-29 20:33:00 Test Item Value Reference Range Interpretation Comments Mean Corpuscular Hemoglobin (test 31.9 pg code = 785-6) [facility] ElizabethAutomated erythrocyte mean corpuscular hemoglobin concentration measurement (mass/qft6970-79-30 20:33:00 Test Item Value Reference Range Interpretation Comments Mean Corpuscular Hemoglobin Concent 35.4 g/dL (test code = 786-4) [facility]Autom[facility] erythrocyte distribution width [id number] 20:33:00 Test Item Value Reference Range Interpretation Comments Red Cell Distribution Width (test code 12.0 % = 788-0) [facility] ElizabethAutomated blood platelet count (count/volume)2019-07-29 20:33:00 Test Item Value Reference Range Interpretation Comments Platelet Count (test code = 292 10*3/uL 777-3) [facility] ElizabethAutomated blood platelet mean volume [id number] 20:33:00 Test Item Value Reference Range Interpretation Comments Mean Platelet Volume (test code = 9.9 21887-8) [facility] ElizabethAutomated blood neutrophil count as percentage of total [id number] 20:33:00 Test Item Value Reference Range Interpretation Comments Neutrophils (%) (Auto) (test code = 51 % 770-8) [facility] ElizabethAutomated blood immature granulocyte count as percentage of total [id number] 20:33:00 Test Item Value Reference Range Interpretation Comments Immature Granulocyte % (Auto) (test 1 % code = 41013-5) [facility] ElizabethAutomated blood lymphocyte count as percentage of total brfsqrutii5201-77-43 20:33:00 Test Item Value Reference Range Interpretation Comments Lymphocytes (%) (Auto) (test code = 33 % 736-9) [facility] ElizabethAutomated blood monocyte count as percentage of total [id number] 20:33:00 Test Item Value Reference Range Interpretation Comments Monocytes (%) (Auto) (test code = 10 % 5905-5) [facility] ElizabethAutomated blood eosinophil count as percentage of total [id number] 20:33:00 Test Item Value Reference Range Interpretation Comments Eosinophils (%) (Auto) (test code = 4 % 713-8) [facility]Autom[facility] basophil count as percentage of total qtapewhfmk7468-84-98 20:33:00 Test Item Value Reference Range Interpretation Comments Basophils (%) (Auto) (test code = 1 % 706-2) [facility] nucleated erythrocyte count as percentage of total [id number] 20:33:00 Test Item Value Reference Range Interpretation Comments Nucleated Red Blood Cells % (test code 0.0 % = 58897-5) [facility]ated blood neutrophil count (number/volume)2019-07-29 20:33:00 Test Item Value Reference Range Interpretation Comments Neutrophils # (Auto) (test code = 3.8 10*3/uL 751-8) [facility] immature granulocyte count as percentage of total [id number] 20:33:00 Test Item Value Reference Range Interpretation Comments Immature Granulocyte # (Auto) 0.0 10*3/uL (test code = 93464-8) [facility] [employer]anaAutomated blood lymphocyte count (number/volume)2019-07-29 20:33:00 Test Item Value Reference Range Interpretation Comments Lymphocytes # (Auto) (test code = 2.5 10*3/uL 731-0) [facility] monocytes automated count (number/volume)2019-07-29 20:33:00 Test Item Value Reference Range Interpretation Comments Monocytes # (Auto) (test code = 0.8 10*3/uL 742-7) [facility] [employer]anaAutomated blood eosinophil [id number] 20:33:00 Test Item Value Reference Range Interpretation Comments Eosinophils # (Auto) (test code = 0.3 10*3/uL 711-2) [facility]Automated blood basophil count (number/volume)2019-07-29 20:33:00 Test Item Value Reference Range Interpretation Comments Basophils # (Auto) (test code = 0.1 10*3/uL 704-7) [facility] LakebethAutomated blood nucleated erythrocyte count (count/volume) 2019-07-29 20:33:00 Test Item Value Reference Range Interpretation Comments Nucleated Red Blood Cells # 0.00 10*3/uL (test code = 771-6) [facility] JesusbethService comment [id number] 20:33:00 Test Item Value Reference Range Interpretation Comments Manual Differential (test code = Not Ind 8265-1) [facility] AnamikaUrinalysis specimen collection [id number] 20:33:00 Test Item Value Reference Range Interpretation Comments Urine Source (test code = 56759-1) URINE [facility] JesusbethColor of Urine by [id number] 20:33:00 Test Item Value Reference Range Interpretation Comments Urine Color (test code = 49807-5) Colorless [facility] PollothUrine clarity [id number] 20:33:00 Test Item Value Reference Range Interpretation Comments Urine Appearance (test code = 14151-5) Clear [facility]Wilbur WillsonUrine pH measurement by automated test [id number] 20:33:00 Test Item Value Reference Range Interpretation Comments Urine pH (test code = 58827-0) 6.[address] AbadthSpecific gravity of Urine by Automated test strip 2019-07-29 20:33:00 Test Item Value Reference Range Interpretation Comments Urine Specific [place] (test code = 1.006 73830-2) [facility] JesusbethUrine protein measurement by automated test strip (mass/volume)2019-07-29 20:33:00 Test Item Value Reference Range Interpretation Comments Urine Protein (test code = Negative mg/dL 67214-7) [facility] JesusbethUrine glucose measurement by automated test strip (mass/volume)2019-07-29 20:33:00 Test Item Value Reference Range Interpretation Comments Urine Glucose (UA) (test code = >1000 mg/dL 22646-5) [facility] ElizabethUrine ketones measurement by automated test strip (mass/volume)2019-07-29 20:33:00 Test Item Value Reference Range Interpretation Comments Urine Ketones (test code = Negative mg/dL 25400-2) [facility] JesusbethUrine erythrocytes count by automated test strip (number/volume)2019-07-29 20:33:00 Test Item Value Reference Range Interpretation Comments Urine Occult Blood (test code = Negative 43688-6) [facility] AnamikaUrine nitrite detection by automated test [id number] 20:33:00 Test Item Value Reference Range Interpretation Comments Urine Nitrite (test code = 21174-4) Negative [facility] PollothUrine total bilirubin measurement by automated test strip (mass/volume)2019-07-29 20:33:00 Test Item Value Reference Range Interpretation Comments Urine Bilirubin (test code = Negative mg/dL 44050-3) [facility] PollothUrine urobilinogen measurement by automated test strip (mass/volume)2019-07-29 20:33:00 Test Item Value Reference Range Interpretation Comments Urine Urobilinogen (test code Negative mg/dL = 30215-8) [facility] PolloUrine leukocytes count by automated test strip (number/volume)2019-07-29 20:33:00 Test Item Value Reference Range Interpretation Comments Urine Leukocyte Esterase Negative {Janie}/uL (test code = 66295-3) [facility] PolloMicroscopic examination of [id number] 20:33:00 Test Item Value Reference Range Interpretation Comments Microscopic Urinalysis (T) (test code = ----- 71125-3) [facility] erythrocyte count by microscopy (number/high power field)2019-07-29 20:33:00 Test Item Value Reference Range Interpretation Comments Urine RBC (test code = 40791-7) 0-2 /[HPF] [facility] sediment leukocyte count by microscopy (number/high [...] Crystals (test code = None Seen /[HPF] 28170-4) [facility] sediment bacteria count by [...] Yeast (test code = None Seen /[HPF] 31962-3) [facility]ellaervice comment 20:33:00 [...] Level (test code = 25 mmol/L 2027-12) [facility] ElizabethSerum or plasma anion gap determination (moles/volume) 2019-07-29 20:33:00 Test Item Value Reference Range Interpretation Comments Anion Gap (test code = 31076-6) [address] ElizabethSerum or plasma urea nitrogen measurement (mass/volume) 2019-07-29 20:33:00 Test Item Value Reference Range Interpretation Comments Blood Urea Nitrogen (test code = 8 mg/dL 3094-0) [facility] ElifunmibethSerum or plasma creatinine measurement (mass/volume) 2019-07-29 20:33:00 Test Item Value Reference Range Interpretation Comments Creatinine (test code = 2160-0) 1.0 mg/dL [facility] ElizabethGFR estimate [id number] 20:33:00 Test Item Value Reference Range Interpretation Comments Estimat Glomerular Filtration Rate 87 (test code = 86157-0) [facility] ElizabethSerum or plasma glucose measurement (mass/volume) 2019-07-29 20:33:00 Test Item Value Reference Range Interpretation Comments Glucose Level (test code = 2345-7) 292 mg/dL [facility] JesusbethSerum or plasma calcium measurement (mass/volume) 2019-07-29 20:33:00 Test Item Value Reference Range Interpretation Comments Calcium Level (test code = 18212-5) 9.3 mg/dL [facility] ElizabethSerum or plasma total bilirubin measurement (mass/volume) 2019-07-29 20:33:00 Test Item Value Reference Range Interpretation Comments Total Bilirubin (test code = 0.2 mg/dL 1974-05) [facility]bethSerum or plasma aspartate aminotransferase measurement (enzymatic activity/volume)2019-07-29 20:33:00 Test Item Value Reference Range Interpretation Comments Aspartate Amino Transf (AST/SGOT) 32 U/L (test code = 1920-8) [facility] ElizabethSerum or plasma alanine aminotransferase measurement (enzymatic activity/volume)2019-07-29 20:33:00 Test Item Value Reference Range Interpretation Comments Alanine Aminotransferase (ALT/SGPT) 30 U/L (test code = 1742-6) [facility] ElizabethSerum or plasma protein measurement (mass/volume) 2019-07-29 20:33:00 Test Item Value Reference Range Interpretation Comments Total Protein (test code = 2885-2) 7.7 g/dL [facility] albumin measurement (mass/volume) 2019-07-29 20:33:00 Test Item Value Reference Range Interpretation Comments Albumin (test code = 1751-7) 4.3 g/dL [facility] Hospitalerum or plasma alkaline phosphatase measurement (enzymatic activity/volume)2019-07-29 20:33:00 Test Item Value Reference Range Interpretation Comments Alkaline Phosphatase (test code = 83 U/L 6768-6) [facility] or plasma free thyroxine (FT4) measurement (mass/volume)2019-07-29 20:33:00 Test Item Value Reference Range Interpretation Comments Free Thyroxine (test code = 0.79 ng/dL 3024-7) [facility] or plasma thyrotropin measurement with detection limit of 0.005 mIU/L or less (units/volume)2019-07-29 20:33:00 Test Item Value Reference Range Interpretation Comments Thyroid Stimulating Hormone 1.27 u[iU]/mL (TSH) (test code = 36873-0) [facility] or plasma triiodothyronine (T3) measurement (mass/volume)2019-07-29 20:33:00 Test Item Value Reference Range Interpretation Comments Total Triiodothyronine (test code 0.88 ng/mL = 3053-6) [facility] or plasma acetaminophen measurement (mass/volume) 2019-07-29 20:33:00 Test Item Value Reference Range Interpretation Comments Acetaminophen Level (test code = < 0.6 ug/mL 3298-7) [facility] [id number] 20:33:00 Test Item Value Reference Range Interpretation Comments Salicylates Level (test code = < 5.0 mg/dL 4024-6) [facility] or plasma ethanol measurement (mass/volume) 2019-07-29 20:33:00 Test Item Value Reference Range Interpretation Comments Ethyl Alcohol Level (test code = < 10 mg/dL 5643-2) [facility] [id number] 20:33:00 Test Item Value Reference Range Interpretation Comments Urine Methamphetamines Screen Negative ng/mL (test code = 32583-1) [facility]bethUrine propoxyphene screening [id number] 20:33:00 Test Item Value Reference Range Interpretation Comments Urine Propoxyphene Screen Negative ng/mL (test code = 62570-9) [facility] ElizabethUrine amphetamines detection by screening [id number] 20:33:00 Test Item Value Reference Range Interpretation Comments Urine Amphetamines Screen Negative ng/mL (test code = 03873-5) [facility] JesusbethUrine buprenorphine screen with reflex confirmation 2019-07-29 20:33:00 Test Item Value Reference Range Interpretation Comments Urine Buprenorphine (test code Negative ng/mL = 3414-0) [facility] ElialphonsothUrine barbiturates detection by screening [id number] 20:33:00 Test Item Value Reference Range Interpretation Comments Urine Barbiturates Screen Negative ng/mL (test code = 89655-3) [facility] JesusbethUrine benzodiazepines detection by screening method 2019-07-29 20:33:00 Test Item Value Reference Range Interpretation Comments Urine Benzodiazepines Screen Negative ng/mL (test code = 00397-9) [facility] PolloUrine benzoylecgonine detection by screening method 2019-07-29 20:33:00 Test Item Value Reference Range Interpretation Comments Urine Cocaine Screen (test Negative ng/mL code = 30951-4) [facility] JesusbethUrine methadone [id number] 20:33:00 Test Item Value Reference Range Interpretation Comments Urine Methadone, Qualitative Negative ng/mL (test code = 90354-3) [facility] ElizabethUrine opiates screening [id number] 20:33:00 Test Item Value Reference Range Interpretation Comments Urine Opiates Screen (test Negative ng/mL code = 62394-9) [facility] JesusbethUrine phencyclidine detection by screening method 2019-07-29 20:33:00 Test Item Value Reference Range Interpretation Comments Urine Phencyclidine Screen Negative ng/mL (test code = 39269-0) [facility] JesusbethUrine cannabinoids detection by screening [id number] 20:33:00 Test Item Value Reference Range Interpretation Comments Urine Cannabinoids (test code Negative ng/mL = 58198-2) [facility]Screening urine tricyclic antidepressants detection 2019-07-29 20:33:00 Test Item Value Reference Range Interpretation Comments Ur Tricyclic Antidepressants Negative ng/mL Screen (test code = 43699-4) [facility] ElizabethUrine oxycodone detection by screening [id number] 20:33:00 Test Item Value Reference Range Interpretation Comments Urine Oxycodone Screen (test Negative ng/mL code = 15798-9) [facility] ElizabethSpecific gravity of Urine by Automated test strip 2019-07-29 20:33:00 Test Item Value Reference Range Interpretation Comments Urine Specific [place] (test code = 1.006 38606-3) [facility] ElizabethUrine pH measurement by automated test [id number] 20:33:00 Test Item Value Reference Range Interpretation Comments Urine pH (test code = 86011-9) 6.[address] ElizabethUrine drug screen comment [id number] 20:33:00 Test Item Value Reference Range Interpretation Comments Urine Drug Screen Comment (test code See Note = 73889-0) [facility] ElizabethUrinalysis specimen collection [id number] 20:33:00 Test Item Value Reference Range Interpretation Comments Urine Source (test code = 70234-8) URINE [facility] ElizabethColor of Urine by [id number] 20:33:00 Test Item Value Reference Range Interpretation Comments Urine Color (test code = 18847-2) Colorless [facility] ElizabethUrine clarity [id number] 20:33:00 Test Item Value Reference Range Interpretation Comments Urine Appearance (test code = 46060-5) Clear [facility] ElizabethUrine pH measurement by automated test [id number] 20:33:00 Test Item Value Reference Range Interpretation Comments Urine pH (test code = 68689-0) 6.[address] ElizabethSpecific gravity of Urine by Automated test strip 2019-07-29 20:33:00 Test Item Value Reference Range Interpretation Comments Urine Specific [place] (test code = 1.006 12325-2) [facility] ElizabethUrine protein measurement by automated test strip (mass/volume)2019-07-29 20:33:00 Test Item Value Reference Range Interpretation Comments Urine Protein (test code = Negative mg/dL 46336-8) [facility] PollothUrine glucose measurement by automated test strip (mass/volume)2019-07-29 20:33:00 Test Item Value Reference Range Interpretation Comments Urine Glucose (UA) (test code = >1000 mg/dL 96420-5) [facility] PollothUrine ketones measurement by automated test strip (mass/volume)2019-07-29 20:33:00 Test Item Value Reference Range Interpretation Comments Urine Ketones (test code = Negative mg/dL 11052-9) [facility] erythrocytes count by automated test strip (number/volume)2019-07-29 20:33:00 Test Item Value Reference Range Interpretation Comments Urine Occult Blood (test code = Negative 88818-2) KASH Romero. AnamikaUrine nitrite detection by automated test [id number] 20:33:00 Test Item Value Reference Range Interpretation Comments Urine Nitrite (test code = 70223-9) Negative [facility] total bilirubin measurement by automated test strip (mass/volume)2019-07-29 20:33:00 Test Item Value Reference Range Interpretation Comments Urine Bilirubin (test code = Negative mg/dL 53891-1) [facility] AnamikaUrine urobilinogen measurement by automated test strip (mass/volume)2019-07-29 20:33:00 Test Item Value Reference Range Interpretation Comments Urine Urobilinogen (test code Negative mg/dL = 33096-0) [facility] count by automated test strip (number/volume)2019-07-29 20:33:00 Test Item Value Reference Range Interpretation Comments Urine Leukocyte Esterase Negative {Janie}/uL (test code = 70894-8) [facility] PolloMicroscopic examination of [id number] 20:33:00 Test Item Value Reference Range Interpretation Comments Microscopic Urinalysis (T) (test code = ----- 49705-0) [facility] sediment erythrocyte count by microscopy (number/high power field)2019-07-29 20:33:00 Test Item Value Reference Range Interpretation Comments Urine RBC (test code = 40268-8) 0-2 /[HPF] [facility] leukocyte count by microscopy (number/high power field)2019-07-29 20:33:00 Test Item Value Reference Range Interpretation Comments Urine WBC (test code = 5821-4) 0-5 /[HPF] [facility] [id number] 22:32:09 Test Item Value Reference Range Interpretation Comments Glucose POC (test 264 mg/dL 74-106 H POC Glucos e used on code = Glucose POC) critical ly ill patients is considered " off-label use" and has no t been cleared or appr leonel by the FDA. Altern ative testing methods should be considered i f the patient is crit ically ill. WHOLE BLOOD [id number] 19:35:00 Test Item Value Reference Range Interpretation Comments WHOLE BLOOD GLUCOSE 399 MG/DL 70-99 Fastin g glucose (test code = POC GLU) normal <100 MG/DL- [employer] recommend ation NEG STREP SCRN CONFIRM [id number] 10:23:00 Test Item Value Reference Range Interpretation [...] code = Report REPORT. Text12) WHOLE BLOOD [id number] 06:10:00 Test Item Value Reference Range Interpretation Comments WHOLE BLOOD GLUCOSE 259 MG/DL 70-99 H Fastin g glucose (test code = POC GLU) normal <100 MG/DL- [employer] recommend ation RPR [id number] 17:40:00 Test Item Value Reference Range Interpretation Comments SCREEN RPR (test NONREACTIVE NONREACTIVE code = SCRN RPR) NR = NON-REACTIVE R = REACTIVE HEPATITIS C ANTIBODY [id number] 16:34:00 Test Item Value Reference Range Interpretation [...] confirmation re sults will follow. WHOLE BLOOD [id number] 11:50:00 Test Item Value Reference Range Interpretation Comments WHOLE BLOOD GLUCOSE 384 MG/DL 70-99 H Fastin g glucose (test code = POC GLU) normal <100 MG/DL- [employer] recommend ation LIPID [id number] 08:25:00 Test Item Value Reference Range Interpretation [...] 59 MG/DL <100 CALC LDL) THYROID STIMULATION [id number] 08:25:00 Test Item Value Reference Range Interpretation Comments TSH (test code = TSH) 1.17 UIU/ML 0.465-4.68 WHOLE BLOOD [id number] 07:55:00 Test Item Value Reference Range Interpretation Comments WHOLE BLOOD GLUCOSE 328 MG/DL 70-99 Fastin g glucose (test code = POC GLU) normal <100 MG/DL- [employer] recommend ation WHOLE BLOOD [id number] 07:55:00 Test Item Value Reference Range Interpretation Comments WHOLE BLOOD GLUCOSE 240 MG/DL 70-99 Fastin g glucose (test code = POC GLU) normal <100 MG/DL- [employer] recommend ation % HEMOGLOBIN A1C (GLYCATED)2019-07-27 07:52:00 Test Item Value Reference Range Interpretation Comments HEMOGLOBIN A1C (test 10.2 % 0-6 H TH ERAPEUTIC TARGET code = GLYCO-) FOR THE TREAT MENT OF DIABETES M GATO PATIENTS IS < 7 % HBA1C. CITIZEN [place] [employer] DIABETES CARE 2002;25:S33-S49 CREATINE [id number] 18:38:00 Test Item Value Reference Range Interpretation Comments CK (test code = CK) 965 U/L 55-170 H CREATINE [id number] 15:35:00 Test Item Value Reference Range Interpretation Comments CK (test code = CK) 1122 U/L 55-170 H URINE DRUG [id number] 15:27:00 Test Item Value Reference Range Interpretation [...] code = NEGATIVE NEGATIVE BMTPCP) WHOLE BLOOD [id number] 15:10:00 Test Item Value Reference Range Interpretation Comments WHOLE BLOOD GLUCOSE 288 MG/DL 70-99 H Fastin g glucose (test code = POC GLU) normal <100 MG/DL- [employer] recommend ation [id number] 13:28:00 Test Item Value Reference Range Interpretation [...] code = UAMICRO) NO PROTHROMBIN TIME WITH [id number] 13:26:00 Test Item Value Reference Range Interpretation Comments PROTHROMBIN TIME 10.5 SECONDS 10.1-12.7 INR Usual R blaise = 2 (test code = PT) to 3 for pr evention of deep vein thrombosis (DVT ) INR (test code = INR) 0.9 [id number] 13:26:00 Test Item Value Reference Range Interpretation Comments PTT (test code = 29.4 SECONDS 25.0-36.5 HEPARIN THE RAPEUTIC PTT) RANGE 57-92 SEC ONDS D-DIMER, [id number] 13:25:00 Test Item Value Reference Range Interpretation Comments D-DIMER (test 152 ng/mL (FEU) 0-500 VALUES OF Q UANTITATIVE code = DDIMER) D-DIMER LESS THAN 499 ng/mL HAVE BEEN REPORTED TO BE ASSOCIATED WITH A LOW PROBABILITY OF DEEP VEIN THROMBOSIS/PULM ONARYEMB OLISM. THIS BRENDA T ALONE SHOULD NOT BE U SED TO RULE OUT DVT/PE . [id number] 12:15:00 Test Item Value Reference Range Interpretation [...] code 3.6 K/UL 1.2-7.2 = NEUT) C-REACTIVE [id number] 12:14:00 Test Item Value Reference Range Interpretation Comments CRP (test code = CRP) <0.5 mg/dL 0.5-1.0 [id number] 12:14:00 Test Item Value Reference Range Interpretation [...] glucose = GLUCOSE) normal <100 MG/ DL- [employer] recommendation* * CALCIUM (test [...] mL/min/1.73m2 mL/min/1.73m2 is considered norm al. CREATINE [id number] 12:14:00 Test Item Value Reference Range Interpretation Comments CK (test code = CK) 2046 U/L 55-170 H [id number] 12:14:00 Test Item Value Reference Range Interpretation Comments FERRITIN (test code = FERR) 136 NG/ML 18-464 [id number] 12:14:00 Test Item Value Reference Range Interpretation Comments LDH (test code = LDH) 705 U/L 313-618 H BLOOD ALCOHOL (ETOH)2019-07-26 12:14:00 Test Item Value Reference Range Interpretation Comments ALCOHOL BLOOD LEVEL <10 MG/DL 0-10 Results are to be used (test code = ALC BLD) for me dical purposes (treatment) onl y. Not intended for no n medical purpose s. TROPONIN I - [id number] 12:08:00 Test Item Value Reference Range Interpretation Comments TROP-I (test code <0.012 ng/ml 0.012-0.033 = TROP-I) INTERPRETIVE DA TA A TROPONIN OF L ESS THAN 0.034 NG/ML IS CONSIDERED NEGA TIVE A TROPONIN OF 0.0 34 - 0.119 NG/ML IS CONSIDERED COATES ZONE A TROPONIN =/> 0. 120 NG/ML IS CONSIDERED P OSITIVE PROBRAIN NATRIURETIC [id number] 12:08:00 Test Item Value Reference Range Interpretation Comments NT-PROBNP (test code 19 pg/mL Exclusi on for heart = PROBNP) failure for pat ients of all ages is 300 pg/mL. Inclusion for h eart failure for pat ients age <50 is 450 pg/m L; for patients age 50 -75 is 900 pg/mL; for russell ents age >75 is 1800 pg/ mL. GROUP A STREP [id number] 11:25:00 Test Item Value Reference Range Interpretation Comments GROUP A STREP SCREEN NEGATIVE NEGATIVE Cultu re set up to (test code = STREPGRA) confi rm negative Strep Screen STREP A INTERNAL POS PASS PASS CNTRL (test code = STRPAIPC) STREP A LOT # (test code [id number] = STRPALOT) STREP A EXPIRATION DATE 03-30 (test code = STRPAEXP) Culture set up to confirm negative Strep ScreenINFLUENZA [id number] 11:25:00 Test Item Value Reference Range Interpretation Comments FLU A (test code = FLU A) NEGATIVE NEGATIVE FLU B (test code = FLU B) NEGATIVE NEGATIVE FLU INTERNAL POSITIVE CNTRL (test PASS PASS code = FLU IPC) INFLUENZA LOT # (test code = FLULOT) [id number] INFLUENZA EXPIRATION DATE (test code 07-29 = FLUEXP) VENOUS BLOOD [id number] 11:04:00 Test Item Value Reference Range Interpretation [...] MV%METHB) 0.9 % 0.4-1.5 BG LAB VENOUS [id number] 11:04:00 Test Item Value Reference Range Interpretation Comments SITE (test code = SITE) VENOUS SITE BGLACVEN (test code = BGLACVEN) 9.0 mg/dL 6.0-18.0 CT THORAX W/O [id number] 09:23:[address] [id number] IMAGING REPORTPatient Name: Arcadio FUENTES of Service: [id number]: 43 Sex: M Order #: [id number] Room: [facility]: 1975 X-Ray Number: [id number] Record Number: [id number] Hospital Number: [id number] Physician: FRANK PRESSLEYOrdering Physician: LINDSEY PRESSLEY chest.History: [...] code = GLUBED) 423 mg/dL 70-110 H [id number] 03:00:00 Test Item Value Reference Range Interpretation Comments GLUBED (test code = GLUBED) 287 mg/dL 70-110 H [id number] 03:00:00 Test Item Value Reference Range Interpretation Comments GLUBED (test code = GLUBED) 328 mg/dL 70-110 H [id number] 03:00:00 Test Item Value Reference Range Interpretation Comments GLUBED (test code = GLUBED) 414 mg/dL 70-110 H [id number] 02:59:00 Test Item Value Reference Range Interpretation Comments GLUBED (test code = GLUBED) 276 mg/dL 70-110 H ACETONE [id number] 11:08:00 Test Item Value Reference Range Interpretation Comments ACETONE BLOOD (test code = ACETB) NEGATIVE NEGATIVE DRUGS OF ABUSE SCREEN [id number] 10:47:00 Test Item Value Reference Range Interpretation [...] = [place]) concentrati on: 300 ng/mL URINALYSIS [id number] 10:39:00 Test Item Value Reference Range Interpretation [...] code = TRACE NONE BACU) COMPREHENSIVE METABOLIC [id number] 10:36:00 Test Item Value Reference Range Interpretation [...] 107 Units/L 50.0-136.0 N code = ALKP) [id number] 10:36:00 Test Item Value Reference Range Interpretation Comments ALCOHOL (test code 0.00 gm/dL 0.00-0.00 N ETHYL ALC OHOL VALUES - = ALC) INTERPRETATION: 0.050 GM/DL - NOT INT OXICATED 0.100 GM/DL - INTOXICATED 0.3 50-0.450 GM/DL - SEVEREL Y INTOXICATED 0.5 50 GM/DL- FATAL INTOXICAT ION COMPREHENSIVE METABOLIC [id number] 10:32:00 Test Item Value Reference Range Interpretation [...] TOTAL (test Units/L 50.0-136.0 code = ALKP) [id number] 10:32:00 Test Item Value Reference Range Interpretation Comments ALCOHOL (test code = ALC) gm/dL 0.00-0.00 CBC W/AUTO [id number] 10:23:00 Test Item Value Reference Range Interpretation [...] = BA#) 0.1 K/mm3 0.0-0.2 N URINALYSIS [id number] 10:19:00 Test Item Value Reference Range Interpretation [...] UA BACTERIA (test code = NONE BACU) [id number] 11:41:00 Test Item Value Reference Range Interpretation Comments GLUBED (test code = 125 mg/dL 74-106 H Performe d by certified GLUBED) oxygraph operator at [facility] [id number] 06:55:00 Test Item Value Reference Range Interpretation Comments GLUBED (test code = 228 mg/dL 74-106 H Performe d by certified GLUBED) oxygraph operator at [facility] CBC W/O [id number] 03:41:00 Test Item Value Reference Range Interpretation [...] fL 6.7-11.0 N = MPV) CBC W/O [id number] 03:39:00 Test Item Value Reference Range Interpretation [...] code fL 6.7-11.0 = MPV) BASIC METABOLIC [id number] 03:38:00 Test Item Value Reference Range Interpretation [...] 8.7 mg/dL 8.5-10.1 N CA) HEPATIC FUNCTION [id number] 03:38:00 Test Item Value Reference Range Interpretation [...] range due ALKP) to change in reagent. [id number] 03:38:00 Test Item Value Reference Range Interpretation [...] AT AN ADDITIONAL CHARGE [facility] URINAL[facility]IS [id number] 03:38:00 Test Item Value Reference Range Interpretation [...] Urine Source? Clean CatchDRUGS OF ABUSE SCREEN [id number] 03:38:00 Test Item Value Reference Range Interpretation [...] NEGATIVE <300 ng/mL Urine Source? Clean CatchURINALYSIS [id number] 03:35:00 Test Item Value Reference Range Interpretation [...] Urine Source? Clean CatchDRUGS OF ABUSE SCREEN [id number] 03:35:00 Test Item Value Reference Range Interpretation [...] <300 ng/mL Urine Source? Clean CatchBASIC METABOLIC [id number] 03:29:00 Test Item Value Reference Range Interpretation [...] code = CA) mg/dL 8.5-10.1 HEPATIC FUNCTION [id number] 03:29:00 Test Item Value Reference Range Interpretation [...] TOTAL (test IUnit/L 45-117 code = ALKP) [id number] 03:29:00 Test Item Value Reference Range Interpretation Comments ALCOHOL (test code = ALC) mg/dL 0-3 URINALYSIS [id number] 03:25:00 Test Item Value Reference Range Interpretation [...] Urine Source? Clean CatchDRUGS OF ABUSE SCREEN [id number] 03:25:00 Test Item Value Reference Range Interpretation [...] <300 ng/mL Urine Source? Clean CatchCBC W/AUTO [id number] 09:44:00 Test Item Value Reference Range Interpretation [...] MX#) 0.9 k/mm3 0.1-0.8 H COMPREHENSIVE METABOLIC [id number] 20:24:00 Test Item Value Reference Range Interpretation [...] 118 Units/L 50.0-136.0 N code = ALKP) [id number] 20:24:00 Test Item Value Reference Range Interpretation Comments ALCOHOL (test code 0.02 gm/dL 0.00-0.00 H ETHYL ALC OHOL VALUES - = ALC) INTERPRETATION: 0.050 GM/DL - NOT INT OXICATED 0.100 GM/DL - INTOXICATED 0.3 50-0.450 GM/DL - SEVEREL Y INTOXICATED 0.5 50 GM/DL- FATAL INTOXICAT ION DRUGS OF ABUSE SCREEN [id number] 20:16:00 Test Item Value Reference Range Interpretation [...] [place]) concentrati on: 300 ng/mL COMPREHENSIVE METABOLIC [id number] 20:16:00 Test Item Value Reference Range Interpretation [...] TOTAL (test Units/L 50.0-136.0 code = ALKP) [id number] 20:16:00 Test Item Value Reference Range Interpretation Comments ALCOHOL (test code = ALC) gm/dL 0.00-0.00 CBC W/AUTO [id number] 20:08:00 Test Item Value Reference Range Interpretation [...] code = BA#) 0.1 K/mm3 0.0-0.2 N [id number] 17:49:00 Test Item Value Reference Range Interpretation Comments SODIUM (test code = NA/ABG) 138 MEQ/L 134-147 N [id number] 17:49:00 Test Item Value Reference Range Interpretation Comments POTASSIUM (test code = K/ABG) MEQ/L 3.4-5.0 [id number] 17:49:00 Test Item Value Reference Range Interpretation Comments CHLORIDE (test code = CL/ABG) MEQ/L 100-108 CREATININE [id number] 17:49:00 Test Item Value Reference Range Interpretation Comments CREATININE ABG (test code = CREAABG) mg/dL 0.8-1.3 POC IONIZED [id number] 17:49:00 Test Item Value Reference Range Interpretation Comments POC IONIZED CALCIUM (test code = MMOL/L 1.12-1.32 POCCA) POC [id number] 17:49:00 Test Item Value Reference Range Interpretation Comments POC GLUCOSE (test code = POCGLU) MG/DL 70-110 [id number] 17:49:00 Test Item Value Reference Range Interpretation Comments SODIUM (test code = NA/ABG) 138 MEQ/L 134-147 N [id number] 17:49:00 Test Item Value Reference Range Interpretation Comments POTASSIUM (test code = K/ABG) 3.8 MEQ/L 3.4-5.0 N [id number] 17:49:00 Test Item Value Reference Range Interpretation Comments CHLORIDE (test code = CL/ABG) MEQ/L 100-108 CREATININE [id number] 17:49:00 Test Item Value Reference Range Interpretation Comments CREATININE ABG (test code = CREAABG) mg/dL 0.8-1.3 POC IONIZED [id number] 17:49:00 Test Item Value Reference Range Interpretation Comments POC IONIZED CALCIUM (test code = MMOL/L 1.12-1.32 POCCA) POC [id number] 17:49:00 Test Item Value Reference Range Interpretation Comments POC GLUCOSE (test code = POCGLU) MG/DL 70-110 [id number] 17:49:00 Test Item Value Reference Range Interpretation Comments SODIUM (test code = NA/ABG) 138 MEQ/L 134-147 N [id number] 17:49:00 Test Item Value Reference Range Interpretation Comments POTASSIUM (test code = K/ABG) 3.8 MEQ/L 3.4-5.0 N [id number] 17:49:00 Test Item Value Reference Range Interpretation Comments CHLORIDE (test code = CL/ABG) MEQ/L 100-108 CREATININE [id number] 17:49:00 Test Item Value Reference Range Interpretation Comments CREATININE ABG (test code = CREAABG) mg/dL 0.8-1.3 POC IONIZED [id number] 17:49:00 Test Item Value Reference Range Interpretation Comments POC IONIZED CALCIUM (test code = 1.11 MMOL/L 1.12-1.32 L POCCA) POC [id number] 17:49:00 Test Item Value Reference Range Interpretation Comments POC GLUCOSE (test code = POCGLU) MG/DL 70-110 [id number] 17:49:00 Test Item Value Reference Range Interpretation Comments SODIUM (test code = NA/ABG) 138 MEQ/L 134-147 N [id number] 17:49:00 Test Item Value Reference Range Interpretation Comments POTASSIUM (test code = K/ABG) 3.8 MEQ/L 3.4-5.0 N [id number] 17:49:00 Test Item Value Reference Range Interpretation Comments CHLORIDE (test code = CL/ABG) MEQ/L 100-108 CREATININE [id number] 17:49:00 Test Item Value Reference Range Interpretation Comments CREATININE ABG (test code = CREAABG) mg/dL 0.8-1.3 POC IONIZED [id number] 17:49:00 Test Item Value Reference Range Interpretation Comments POC IONIZED CALCIUM (test code = 1.11 MMOL/L 1.12-1.32 L POCCA) POC [id number] 17:49:00 Test Item Value Reference Range Interpretation Comments POC GLUCOSE (test code = POCGLU) 187 MG/DL 70-110 H [id number] 17:49:00 Test Item Value Reference Range Interpretation Comments SODIUM (test code = NA/ABG) 138 MEQ/L 134-147 N [id number] 17:49:00 Test Item Value Reference Range Interpretation Comments POTASSIUM (test code = K/ABG) 3.8 MEQ/L 3.4-5.0 N [id number] 17:49:00 Test Item Value Reference Range Interpretation Comments CHLORIDE (test code = CL/ABG) 101 MEQ/L 100-108 N CREATININE [id number] 17:49:00 Test Item Value Reference Range Interpretation Comments CREATININE ABG (test code = CREAABG) mg/dL 0.8-1.3 POC IONIZED [id number] 17:49:00 Test Item Value Reference Range Interpretation Comments POC IONIZED CALCIUM (test code = 1.11 MMOL/L 1.12-1.32 L POCCA) POC [id number] 17:49:00 Test Item Value Reference Range Interpretation Comments POC GLUCOSE (test code = POCGLU) 187 MG/DL 70-110 H [id number] 17:49:00 Test Item Value Reference Range Interpretation Comments SODIUM (test code = NA/ABG) 138 MEQ/L 134-147 N [id number] 17:49:00 Test Item Value Reference Range Interpretation Comments POTASSIUM (test code = K/ABG) 3.8 MEQ/L 3.4-5.0 N [id number] 17:49:00 Test Item Value Reference Range Interpretation Comments CHLORIDE (test code = CL/ABG) 101 MEQ/L 100-108 N CREATININE [id number] 17:49:00 Test Item Value Reference Range Interpretation Comments CREATININE ABG (test code = 1.2 mg/dL 0.8-1.3 N CREAABG) POC IONIZED [id number] 17:49:00 Test Item Value Reference Range Interpretation Comments POC IONIZED CALCIUM (test code = 1.11 MMOL/L 1.12-1.32 L POCCA) POC [id number] 17:49:00 Test Item Value Reference Range Interpretation Comments POC GLUCOSE (test code = POCGLU) 187 MG/DL 70-110 H WHOLE BLOOD [id number] 07:40:00 Test Item Value Reference Range Interpretation Comments WHOLE BLOOD GLUCOSE 216 MG/DL 70-99 H Fastin g glucose (test code = POC GLU) normal <100 MG/DL- [place] [employer] recommend ation WHOLE BLOOD [id number] 20:10:00 Test Item Value Reference Range Interpretation Comments WHOLE BLOOD GLUCOSE 118 MG/DL 70-99 H Fastin g glucose (test code = POC GLU) normal <100 MG/DL- [place] recommend ation WHOLE BLOOD [id number] 20:10:00 Test Item Value Reference Range Interpretation Comments WHOLE BLOOD GLUCOSE 260 MG/DL 70-99 H Fastin g glucose (test code = POC GLU) normal <100 MG/DL- [place] recommend ation RPR FOR SERUM [id number] 16:23:00 Test Item Value Reference Range Interpretation Comments RPR (test code = NONREACTIVE NONREACTIVE RPR) NR = NON-REACTIVE R = REACTIVE HEPATITIS C ANTIBODY [id number] 14:40:00 Test Item Value Reference Range Interpretation [...] confirmation re sults will follow. WHOLE BLOOD [id number] 12:20:00 Test Item Value Reference Range Interpretation Comments WHOLE BLOOD GLUCOSE 201 MG/DL 70-99 H Fastin g glucose (test code = POC GLU) normal <100 MG/DL- [place] recommend ation LIPID [id number] 11:26:00 Test Item Value Reference Range Interpretation [...] MG/DL <100 H CALC LDL) THYROID STIMULATION [id number] 11:25:00 Test Item Value Reference Range Interpretation Comments TSH (test code = TSH) 1.60 UIU/ML 0.465-4.68 VITAMIN D [id number] 10:48:00 Test Item Value Reference Range Interpretation Comments VITAMIN D, 25-HYDROXY 25.9 Vitami n D guideline has (test code = VITD,25) been d efined by the [place] [employer] ty practice as fol lowed: Defici ent: less than 20 ng/mL Insufficient: 21-29 ng/mL Sufficient: 30- 100 ng/mL Pot ential Toxicity: >100n g/mL VALPROIC [id number] 10:48:00 Test Item Value Reference Range Interpretation Comments VALP (test code = VALP) <10.0 UG/ML 50-100 L % HEMOGLOBIN A1C (GLYCATED)2019-04-21 09:22:00 Test Item Value Reference Range Interpretation Comments HEMOGLOBIN A1C (test 8.4 % 0-6 H TH ERAPEUTIC TARGET code = GLYCO-) FOR THE TREAT MENT OF DIABETES M GATO PATIENTS IS < 7 % HBA1C. CITIZEN OF [place] [employer] DIABETES CARE 2002;25:S33-S49 WHOLE BLOOD [id number] 06:45:00 Test Item Value Reference Range Interpretation Comments WHOLE BLOOD GLUCOSE 229 MG/DL 70-99 H Fastin g glucose (test code = POC GLU) normal <100 MG/DL- [place] recommend ation WHOLE BLOOD [id number] 19:50:00 Test Item Value Reference Range Interpretation Comments WHOLE BLOOD GLUCOSE 234 MG/DL 70-99 H Fastin g glucose (test code = POC GLU) normal <100 MG/DL- [place] recommend ation WHOLE BLOOD [id number] 17:30:00 Test Item Value Reference Range Interpretation Comments WHOLE BLOOD GLUCOSE 247 MG/DL 70-99 H Fastin g glucose (test code = POC GLU) normal <100 MG/DL- [place] recommend ation MICROALBUMIN, RANDOM [id number] 17:14:00 Test Item Value Reference Range Interpretation [...] 16.3 mg/dL code = UCREMGDL) WHOLE BLOOD [id number] 12:10:00 Test Item Value Reference Range Interpretation Comments WHOLE BLOOD GLUCOSE 221 MG/DL 70-99 H Fastin g glucose (test code = POC GLU) normal <100 MG/DL- [place] recommend ation [id number] 02:40:00 Test Item Value Reference Range Interpretation Comments GLUBED (test code = 286 MG/DL 70-110 H Performe d by certified GLUBED) oxygraph operator at [facility] [id number] 19:40:00 Test Item Value Reference Range Interpretation Comments GLUBED (test code = 165 MG/DL 70-110 H Performe d by certified GLUBED) oxygraph operator at [facility] BASIC METABOLIC [id number] 05:04:00 Test Item Value Reference Range Interpretation [...] code = 8.3 mg/dL 8.0-10.5 N CA) [id number] 05:04:00 Test Item Value Reference Range Interpretation [...] may anayeli y by method. BASIC METABOLIC [id number] 05:03:00 Test Item Value Reference Range Interpretation [...] CALCIUM (test code = CA) mg/dL 8.0-10.5 [id number] 05:03:00 Test Item Value Reference Range Interpretation [...] may anayeli y by method. CBC W/AUTO [id number] 04:48:00 Test Item Value Reference Range Interpretation [...] code = MDIFF) - CT HEAD/BRAIN W/O [id number] 18:08:00 Name: BRITT FUENTES [facility] : 1975 Age/S: 43 / M [address] [place] [address] Bl Unit #: [id number] Loc: [place] Phys: Paolo Otero DO Acct: [id number] Dis Date: Status: REG ER PHONE #: [phone] Exam Date: 01/29/2019 1754 FAX #: [phone] Reason: found down EXAMS: CPTCODE: [id number] CT HEAD/BRAIN W/O CONT [address] HEAD INDICATION: found down. TECHNIQUE: [...] 01/29/2019 (1811) PAGE 1 Signed ReportBASIC METABOLIC [id number] 17:48:00 Test Item Value Reference Range Interpretation [...] code = 8.7 mg/dL 8.0-10.5 N CA) [id number] 17:48:00 Test Item Value Reference Range Interpretation Comments ALCOHOL (test code < 0.003 G/dL <0.003 Ethyl Alc ohol = ALC) Interpretation: 0.100 gm/dL - Legally Intoxic ated 0.300-0.40 0 gm/dL - Severely Into xicated >0.400 gm/dL - Potentially LethalResults a re for Medical purpose s only, and not for Leg al orEmployment ev aluation purposes. CBC W/AUTO [id number] 17:32:00 Test Item Value Reference Range Interpretation [...] REQUIRED (test NO code = MDIFF) POC [id number] 04:14:49 Test Item Value Reference Range Interpretation Comments Glucose POC (test 220 mg/dL 70-115 H If you con bar turner your code = Glucose POC) patient critically ill, the Ricky-Accu Check Infrom II meter should not be used for Glucose determination. Draw a venous Glucose and send to the main Lab for analysis. CT Brain/Head w/o [id number] 21:39:46Patient: BRITT FUENTES Date/Time11/19/2018 21:31 CDTReason for [...] reconstruction techn ique. Total DLP: 718.2mGy-cm.Comparison: NoneLocation: S05Cpfdyjkh:The ventricles and sulci are normal in size [...] Signature): 11/19/2018 9:39 pmDRUGS OF ABUSE SCREEN [id number] 16:18:00 Test Item Value Reference Range Interpretation [...] non-medical pur poses. DRUGS OF ABUSE SCREEN [id number] 16:09:00 Test Item Value Reference Range Interpretation [...] ed for non-medical pur poses. HEPATIC FUNCTION [id number] 15:53:00 Test Item Value Reference Range Interpretation [...] in INTERNATIONAL (test code = CK) UNITS/LITER [id number] 15:53:00 Test Item Value Reference Range Interpretation Comments SALICYLATE (test code = DAVE) 3.0 mg/dL 2.8-20.0 N [id number] 15:53:00 Test Item Value Reference Range Interpretation Comments ALCOHOL (test code < 0.003 G/dL <0.003 Ethyl Alc ohol = ALC) Interpretation: 0.100 gm/dL - Legally Intoxic ated 0.300-0.40 0 gm/dL - Severely Into xicated >0.400 gm/dL - Potentially LethalResults a re for Medical purpose s only, and not for Leg al orEmployment ev aluation purposes. CHEMISTRY 8 [id number] 15:42:00 Test Item Value Reference Range Interpretation [...] ML/MIN (test code = GFRBED) CHEMISTRY 8 [id number] 15:42:00 Test Item Value Reference Range Interpretation Comments ISTAT-SODIUM (test 133 MMOL/L 134-147 L code = NAP) ISTAT-POTASSIUM (test 4.3 MMOL/L 3.4-5.0 N code = KP) ISTAT-CHLORIDE (test 94 MMOL/L 100-108 L Perform ed by code = CLP) certified opera tor at [facility] ISTAT CARBON DIOXIDE 29.0 mmol/L [...] POC (test code = GFRBED) CBC W/O [id number] 15:30:00 Test Item Value Reference Range Interpretation [...] 7.0-9.0 H code = MPV) Valproic Acid [id number] 08:30:32 Test Item Value Reference Range Interpretation Comments Valproic Acid Level (test code 102.7 ug/mL(g) 50.0-100.0 H = Valproic Acid Level) RPR [id number] 11:30:00 Test Item Value Reference Range Interpretation [...] = 02-07-20 N Expiration Dt) Thyroid Stimulating [id number] 11:02:26 Test Item Value Reference Range Interpretation Comments TSH (test code = TSH) 1.060 mIU/mL 0.270-4.200 Lipid [id number] 10:58:47 Test Item Value Reference Range Interpretation Comments Cholesterol Total 214 mg/dL 0-200 H RISK OF HE ART (test code = DISEASEPublishe d by Cholesterol Total) [place] Kaia lyte Optimal Borderl ine [...] is LDL/HDL Ratio=L DL Calc/HDL Chol Lipid [id number] 10:58:47 Test Item Value Reference Range Interpretation Comments Cholesterol Total 214 mg/dL 0-200 H RISK OF HE ART (test code = DISEASEPublishe d by Cholesterol Total) [place] Kaia lyte Optimal Borderl ine [...] is LDL/HDL Ratio=L DL Calc/HDL Chol Urine [id number] 09:31:38No growth at 24 hours. No growth at 48 hours.IG [id number] 13:18:22 Test Item Value Reference Range Interpretation Comments IG (test code = IG) 0.3 % 0.0-5.0 IG Abs (test code = IG Abs) 0 x10 N Complete Blood Count with [id number] 13:18:21 Test Item Value Reference Range Interpretation [...] code = IPF) 0 % N Automated [id number] 13:18:21 Test Item Value Reference Range Interpretation Comments Neutro Auto (test code = Neutro 57.7 % 36.0-70.0 Auto) Lymph Auto (test code = Lymph Auto) 31.9 % 12.0-44.0 [place] Auto (test code = [place] Auto) 7.3 % 0.0-11.0 Eos, Auto (test code = Eos, Auto) 2.1 % 0.0-7.0 Basophil Auto (test code = Basophil 0.7 % 0.0-2.0 Auto) Neutro Absolute (test code = Neutro 5.7 x10 1.6-7.4 Absolute) Lymph Absolute (test code = Lymph 3.16 x10 .50-4.60 Absolute) [place] Absolute (test code = [place] .72 x10 .00-1.20 Absolute) Eos Absolute (test code = Eos 0.21 x10 0.00-0.74 Absolute) Baso Absolute (test code = Baso 0.07 x10 0.00-0.21 Absolute) Complete Blood Count with [id number] 13:18:21 Test Item Value Reference Range Interpretation [...] code = Cannabinoid Screen Ur) Comprehensive Metabolic [id number] 13:10:46 Test Item Value Reference Range Interpretation [...] A/G 1.5 ratio N Ratio) Comprehensive Metabolic [id number] 13:10:46 Test Item Value Reference Range Interpretation [...] the National Kidney Foundation, http://nkdep.ni h.gov Alcohol [id number] 13:10:46 Test Item Value Reference Range Interpretation Comments Ethanol Level (test <0.00 g/dL 0.00-0.01 Intoxica wade 0.080 g/dL code = Ethanol or more Level) Ethanol Inst (test <0 N code = Ethanol Inst) Comprehensive Metabolic [id number] 13:10:46 Test Item Value Reference Range Interpretation [...] ag e have not been validated by [facility] MDRD study and should be interpreted wit [...] ag e have not been validated by [facility] MDRD study and should be interpreted wit h caution. eGFR R esult Interpretation: eGFR > or = 60 is in the Normal RangeeGF R < 60 may mean kid alyssa diseaseeGFR < 1 5 may mean kidney failure Rang es recommended by the National Kidney Foundation, http://nkdep.ni h.gov Comprehensive Metabolic [id number] 13:10:46 Test Item Value Reference Range Interpretation [...] code = 17 U/L 1-[address] [facility] ALT) changed due to change in patie nt's sex at 19:15:05. Norm al High changed fr om 41 to 33. Result flag not changed. AST (test code = 16 U/L 1-[address] [facility] AST) changed due to change in [...] ag e have not been validated by [facility] MDRD study and should be interpreted wit [...] ag e have not been validated by [facility] MDRD study and should be interpreted wit h caution. eGFR R esult Interpretation: eGFR > or = 60 is in the Normal RangeeGF R < 60 may mean kid alyssa diseaseeGFR < 1 5 may mean kidney failure Rang es recommended by the National Kidney Foundation, http://nkdep.ni h.gov [id number] 06:35:00 Test Item Value Reference Range Interpretation Comments GLUBED (test code = 253 MG/DL 70-110 H Performe d by certified GLUBED) oxygraph operator at [facility] [id number] 15:12:00 Test Item Value Reference Range Interpretation Comments GLUBED (test code = 567 MG/DL 70-110 H Performe d by certified GLUBED) oxygraph operator at [facility] [id number] 08:00:00 Test Item Value Reference Range Interpretation Comments GLUBED (test code = 217 MG/DL 70-110 H Performe d by certified GLUBED) oxygraph operator at [facility] [id number] 05:54:00 Test Item Value Reference Range Interpretation Comments GLUBED (test code = 368 MG/DL 70-110 H Performe d by certified GLUBED) oxygraph operator at [facility] URINALYSIS [id number] 05:14:00 Test Item Value Reference Range Interpretation [...] NONE SEEN code = SQU) VENOUS BLOOD [id number] 04:32:00 Test Item Value Reference Range Interpretation [...] y DELIVERY (test code = certif ied oxygraph operator at [facility]) [facility] VENOUS BLOOD GAS TEMP 98.6 F (test code = TEMPV) VENOUS BLOOD GAS SITE Other (test code = SITEV) VENOUS TCO2 (test 25 code = TCO2V) BASIC METABOLIC [id number] 04:18:00 Test Item Value Reference Range Interpretation [...] 7.9 mg/dL 8.0-10.5 L CA) HEPATIC FUNCTION [id number] 04:18:00 Test Item Value Reference Range Interpretation [...] 149 IUnit/L 20-125 H code = ALKP) [id number] 04:18:00 Test Item Value Reference Range Interpretation Comments LIPASE (test code = LIP) 201 IUnit/L 73-393 N ACETONE [id number] 04:18:00 Test Item Value Reference Range Interpretation Comments ACETONE QUANT (test NEGATIVE - <20mg/dL NEG - <20 code = ACETN) mg/dL PROTHROMBIN [id number] 04:09:00 Test Item Value Reference Range Interpretation [...] o prevent recurre nt infarct). BASIC METABOLIC [id number] 04:08:00 Test Item Value Reference Range Interpretation [...] code = CA) mg/dL 8.0-10.5 HEPATIC FUNCTION [id number] 04:08:00 Test Item Value Reference Range Interpretation Comments TOTAL PROTEIN (test code = PROT) g/dL 6.4-8.2 ALBUMIN (test code = ALB) g/dL 3.4-5.0 BILIRUBIN TOTAL (test code = BILT) mg/dL 0.0-1.0 BILIRUBIN DIRECT (test code = BILD) MG/DL 0.0-0.30 SGOT/AST (test code = AST) IUnit/L 15-37 SGPT/ALT (test code = ALT) IUnit/L 15-65 ALKALINE PHOSPHATASE TOTAL (test IUnit/L 20-125 code = ALKP) [id number] 04:08:00 Test Item Value Reference Range Interpretation Comments LIPASE (test code = LIP) IUnit/L 73-393 ACETONE [id number] 04:08:00 Test Item Value Reference Range Interpretation Comments ACETONE QUANT (test NEGATIVE - <20mg/dL NEG - <20 code = ACETN) mg/dL CBC W/AUTO [id number] 03:55:00 Test Item Value Reference Range Interpretation [...] REQUIRED (test code NO = MDIFF) TROPONIN-I [id number] 03:45:00 Test Item Value Reference Range Interpretation Comments TROPONIN-I RAPID 0.00 ng/mL 0.00-0.08 N Performed b y certified (test code = oxygraph operator at [facility]) [facility] [employer] with joint leadershi p from the EuropeanSociety of Cardiology (ESC ), the [place] Colleg e of Cardiology Foun dation (ACCF), the [place] [employer](AHA ) and the World Heart Fed eration (WHF) refined p ast criteria of myocardial i nfarction (HI) with a uni versal definition of m yocardial infarction that supports the use of cTnI as a preferred bioma rker for myocardial inju ry. The universal defin ition of HI, according to th is taskforce, is d [...] change s in troponin levels characteristic of HI. Comprehensive Metabolic [id number] 01:07:10 Test Item Value Reference Range Interpretation [...] Foundation, http://nkdep.ni h.gov Complete Blood Count with [id number] 00:39:59 Test Item Value Reference Range Interpretation [...] code = IPF) 0 % N POCT-GLUCOSE [id number] 20:46:00 Test Item Value Reference Range Interpretation Comments POC-GLUCOSE METER 195 mg/dL 70-110 H TESTED AT [facility] [address] ([facility]) (test code = [place] [place] 1538) [address] CT Brain/Head w/o Gpfvueoe3688-10-15 00:25:11Patient: BRITT FUENTES Date/Time11/04/2017 00:06 CDTReason for ExamAltered level of consciousnessReportExam: CT of the brain without contrast.History: Altered mental statusLocation: U17Avvnuvwdh: Contiguous axial CT images were obtained from [...] Foundation, http://nkdep.ni h.gov Complete Blood Count with [id number] 21:44:38 Test Item Value Reference Range Interpretation [...] = IPF) 0 % N Comprehensive Metabolic [id number] 15:49:10 Test Item Value Reference Range Interpretation [...] Foundation, http://nkdep.ni h.gov Complete Blood Count with [id number] 15:44:44 Test Item Value Reference Range Interpretation [...] = IPF) 0 % N URINALYSIS W/ [id number] 00:30:00 Test Item Value Reference Range Interpretation [...] 1584) SOURCE(BEAKER) (test code = 2795) POCT-GLUCOSE [id number] 23:25:00 Test Item Value Reference Range Interpretation Comments POC-GLUCOSE METER 266 mg/dL 70-110 H TESTED AT [facility] [address] (BEAKER) (test code = [place] 1538) [address] BASIC METABOLIC [id number] 23:12:00 Test Item Value Reference Range Interpretation [...] PATIEN TS. RAD, KNEE, COMPLETE (4 VIEWS), [id number] 23:01:00Reason for exam:->FALL FINAL REPORT RAD, KNEE, [...] MDReport Verified Date/Time: 10/21/2017 23:01:41 Reading Location: [address] Reading Room CBC W/PLT COUNT & [...] PERCENT (BEAKER) (test code = 2801) KETONE, [id number] 22:52:00 Test Item Value Reference Range Interpretation Comments KETONES, BLOOD (BEAKER) (test code 0.1 mmol/L <0.4 = 1103) POCT-GLUCOSE [id number] 22:11:00 Test Item Value Reference Range Interpretation Comments POC-GLUCOSE METER 324 mg/dL 70-110 H TESTED AT [facility] [address] ([place]) (test code = [place] 1538) [address] Comprehensive Metabolic [id number] 02:06:31 Test Item Value Reference Range Interpretation [...] Foundation, [email or web address].ni h.gov Complete Blood Count with [id number] 01:51:13 Test Item Value Reference Range Interpretation [...] 0 % N Complete Blood Count with [id number] 03:59:01 Test Item Value Reference Range Interpretation [...] = IPF) 0 % N Comprehensive Metabolic [id number] 03:52:18 Test Item Value Reference Range Interpretation [...] ag e have not been validated by [facility] MDRD study and should be interpreted wit [...] ag e have not been validated by [facility] MDRD study and should be interpreted wit h caution. eGFR R esult Interpretation: eGFR > or = 60 is in the Normal RangeeGF R < 60 may mean kid alyssa diseaseeGFR < 1 5 may mean kidney failure Rang es recommended by the National Kidney Foundation, http://nkdep.ni h.gov CREATINE KINASE (CK), TOTAL AND [id number] 04:39:00 Test Item Value Reference Range Interpretation Comments CREATINE KINASE TOTAL (BEAKER) 382 U/L 29-200 H (test code = 380) CREATINE KINASE-MB (BEAKER) (test 6.5 ng/mL 0.0-6.6 code = 750) CREATINE KINASE-MB INDEX (BEAKER) 1.7 % (test code = 395) CK-MB Reference Range:<6.7 Normal6.7-10.0 Borderline>10.0 AbnormalTROPONIN [id number] 04:39:00 Test Item Value Reference Range Interpretation [...] and persistent tachyarrhythmia.RAD, CHEST, 1 VIEW, NON [id number] 00:46:00Reason for exam:->DIZZINESSFINAL REPORT History: Dizziness. Comparison: None. Findings: A single view of the chest is submitted. The examination is limited by lordotic positioning. The cardiomediastinal contours are unremarkable. There is no focal consolidation, pneumothorax, large pleural effusion or evidence of overt pulmonary edema. There is no acute bony abnormality. Impression: No acute abnormality. Signed: Piyush Garsiaeport Verified Date/Time: 09/24/2017 00:46:00 Reading Location: [address] Reading Room BASIC METABOLIC [id number] 00:07:00 Test Item Value Reference Range Interpretation [...] ESTIMATED GFR. CREATINE KINASE (CK), TOTAL AND [id number] 00:01:00 Test Item Value Reference Range Interpretation Comments CREATINE KINASE TOTAL (BEAKER) 469 U/L 29-200 H (test code = 380) CREATINE KINASE-MB (BEAKER) (test 7.3 ng/mL 0.0-6.6 H code = 750) CREATINE KINASE-MB INDEX (BEAKER) 1.6 % (test code = 395) CK-MB Reference Range:<6.7 Normal6.7-10.0 Borderline>10.0 AbnormalTROPONIN [id number] 00:01:00 Test Item Value Reference Range Interpretation [...] failure, acidosis, acute neurological disease, and persistent tachyarrhythmia.[id number] 23:55:00 Test Item Value Reference Range Interpretation Comments MAGNESIUM (BEAKER) (test code = 1.9 mg/dL 1.6-2.6 627) [id number] 23:51:00 Test Item Value Reference Range Interpretation [...] PERCENT (BEAKER) (test code = 2801) POCT-GLUCOSE [id number] 23:22:00 Test Item Value Reference Range Interpretation Comments POC-GLUCOSE METER 304 mg/dL 70-110 H TESTED AT [facility] 6720 (BEAKER) (test code = [place] 1538) [address] Comprehensive Metabolic [id number] 03:05:25 Test Item Value Reference Range Interpretation [...] code = 26 U/L 1-[address] [facility] ALT) changed due to change in patie nt's sex at 19:15:14. Norm al High changed fr om 41 to 33. Result flag not changed. AST (test code = 24 U/L 1-[address] [facility] AST) changed due to change in [...] not provided, and t he patient is -Hrea n, multiply by 1.2 12. If sex is not provided, and t he patient is fema le, multiply by 0.7 42. Results for pat ients <18 years of ag e have not been validated by [facility] MDRD study and should be interpreted wit [...] ag e have not been validated by [facility] MDRD study and should be interpreted wit h caution. eGFR R esult Interpretation: eGFR > or = 60 is in the Normal RangeeGF R < 60 may mean kid alyssa diseaseeGFR < 1 5 may mean kidney failure Rang es recommended by the National Kidney Foundation, http://nkdep.ni h.gov Complete Blood Count with [id number] 23:51:37 Test Item Value Reference Range Interpretation [...] = IPF) 0 % N POC Glucose, [id number] 08:40:00 Test Item Value Reference Range Interpretation Comments POC Glucose (test 303 mg/dL 70-115 H If you con bar turner your code = POCGLUC) patient crit ically ill, the Ricky Accu- Chek InformII meters hould not be used for Glu cose determinations. Draw a venous Glucose and send to the Main Lab for Analysis. [id number] 22:04:00 Test Item Value Reference Range Interpretation [...] code = THC) POSITIVE Negative A Alcohol/Ethanol, [id number] 21:40:00 Test Item Value Reference Range Interpretation Comments Alcohol, Ethyl <0.01 g/dL 0.00-0.01 N Intoxicated 0.080 (test code = ETOH) g/dL or m ore Comprehensive Metabolic [id number] 21:40:00 Test Item Value Reference Range Interpretation [...] National Kidney Foundation,http ://nkd ep.nih.gov CBC with [id number] 21:33:00 Test Item Value Reference Range Interpretation [...] code = ALYMPH) 2.4 K/cumm 0.5-4.6 N [place] Abs (test code = AMONO) 0.6 K/cumm 0.0-1.2 N Eos Abs (test code = AEOS) 0.19 K/cumm 0.00-0.74 N Baso Abs (test code = ABASO) 0.1 K/cumm 0.00-0.21 N POC Glucose, [id number] 20:46:00 Test Item Value Reference Range Interpretation Comments POC Glucose (test 164 mg/dL 70-115 H If you con bar turner your code = POCGLUC) patient crit ically ill, the Ricky Accu- Chek InformII meters hould not be used for Glu cose determinations. Draw a venous Glucose and send to the Main Lab for Analysis. POC Glucose, [id number] 09:31:00 Test Item Value Reference Range Interpretation Comments POC Glucose (test 268 mg/dL 70-115 H Notify RN or MDIf you code = POCGLUC) consider you r patient critically ill, the Ricky Accu-Chek InformII metershould not be used for Glucose determinations. Draw a venous Glucose and send to the Main Lab for Analysis. POC Glucose, [id number] 06:32:00 Test Item Value Reference Range Interpretation Comments POC Glucose (test 175 mg/dL 70-115 H If you con bar turner your code = POCGLUC) patient crit ically ill, the Ricky Accu- Chek InformII meters hould not be used for Glu cose determinations. Draw a venous Glucose and send to the Main Lab for Analysis. POC Glucose, [id number] 15:26:00 Test Item Value Reference Range Interpretation Comments POC Glucose (test 142 mg/dL 70-115 H Notify RN or MDIf you code = POCGLUC) consider you r patient critically ill, the Ricky Accu-Chek InformII metershould not be used for Glucose determinations. Draw a venous Glucose and send to the Main Lab for Analysis. POC Glucose, [id number] 10:58:00 Test Item Value Reference Range Interpretation Comments POC Glucose (test 162 mg/dL 70-115 H Notify RN or MDIf you code = POCGLUC) consider you r patient critically ill, the Ricky Accu-Chek InformII metershould not be used for Glucose determinations. Draw a venous Glucose and send to the Main Lab for Analysis. POC Glucose, [id number] 06:53:00 Test Item Value Reference Range Interpretation Comments POC Glucose (test 168 mg/dL 70-115 H If you con bar turner your code = POCGLUC) patient crit ically ill, the Ricky Accu- Chek InformII meters hould not be used for Glu cose determinations. Draw a venous Glucose and send to the Main Lab for Analysis. POC Glucose, [id number] 19:20:00 Test Item Value Reference Range Interpretation Comments POC Glucose (test 202 mg/dL 70-115 H If you con bar turner your code = POCGLUC) patient crit ically ill, the Ricky Accu- Chek InformII meters hould not be used for Glu cose determinations. Draw a venous Glucose and send to the Main Lab for Analysis. POC Glucose, [id number] 15:27:00 Test Item Value Reference Range Interpretation Comments POC Glucose (test 181 mg/dL 70-115 H Notify RN or MDIf you code = POCGLUC) consider you r patient critically ill, the Rciky Accu-Chek InformII metershould not be used for Glucose determinations. Draw a venous Glucose and send to the Main Lab for Analysis. POC Glucose, [id number] 10:48:00 Test Item Value Reference Range Interpretation Comments POC Glucose (test 172 mg/dL 70-115 H Notify RN or MDIf you code = POCGLUC) consider you r patient critically ill, the Ricky Accu-Chek InformII metershould not be used for Glucose determinations. Draw a venous Glucose and send to the Main Lab for Analysis. POC Glucose, [id number] 06:24:00 Test Item Value Reference Range Interpretation Comments POC Glucose (test 196 mg/dL 70-115 H If you con bar turner your code = POCGLUC) patient crit ically ill, the Ricky Accu- Chek InformII meters hould not be used for Glu cose determinations. Draw a venous Glucose and send to the Main Lab for Analysis. POC Glucose, [id number] 20:01:00 Test Item Value Reference Range Interpretation Comments POC Glucose (test 272 mg/dL 70-115 H If you con bar turner your code = POCGLUC) patient crit ically ill, the Ricky Accu- Chek InformII meters hould not be used for Glu cose determinations. Draw a venous Glucose and send to the Main Lab for Analysis. POC Glucose, [id number] 15:28:00 Test Item Value Reference Range Interpretation Comments POC Glucose (test 223 mg/dL 70-115 H Notify RN or MDIf you code = POCGLUC) consider you r patient critically ill, the Ricky Accu-Chek InformII metershould not be used for Glucose determinations. Draw a venous Glucose and send to the Main Lab for Analysis. POC Glucose, [id number] 12:10:00 Test Item Value Reference Range Interpretation Comments POC Glucose (test 129 mg/dL 70-115 H Notify RN or MDIf you code = POCGLUC) consider you r patient critically ill, the Ricky Accu-Chek InformII metershould not be used for Glucose determinations. Draw a venous Glucose and send to the Main Lab for Analysis. POC Glucose, [id number] 05:42:00 Test Item Value Reference Range Interpretation Comments POC Glucose (test 236 mg/dL 70-115 H Notify RN or MDIf you code = POCGLUC) consider you r patient critically ill, the Ricky Accu-Chek InformII metershould not be used for Glucose determinations. Draw a venous Glucose and send to the Main Lab for Analysis. RPR, [id number] 03:03:00 Test Item Value Reference Range Interpretation Comments RPR (test code = RPR) Non-Reactive Non-Reactive N POC Glucose, [id number] 16:21:00 Test Item Value Reference Range Interpretation Comments POC Glucose (test 318 mg/dL 70-115 H Notify RN or MDIf you code = POCGLUC) consider you r patient critically ill, the Ricky Accu-Chek InformII metershould not be used for Glucose determinations. Draw a venous Glucose and send to the Main Lab for Analysis. POC Glucose, [id number] 11:05:00 Test Item Value Reference Range Interpretation Comments POC Glucose (test 318 mg/dL 70-115 H Notify RN or MDIf you code = POCGLUC) consider you r patient critically ill, the Ricky Accu-Chek InformII metershould not be used for Glucose determinations. Draw a venous Glucose and send to the Main Lab for Analysis. POC Glucose, [id number] 06:11:00 Test Item Value Reference Range Interpretation Comments POC Glucose (test 246 mg/dL 70-115 H If you con bar turner your code = POCGLUC) patient crit ically ill, the Ricky Accu- Chek InformII meters hould not be used for Glu cose determinations. Draw a venous Glucose and send to the Main Lab for Analysis. POC Glucose, [id number] 21:57:00 Test Item Value Reference Range Interpretation Comments POC Glucose (test 144 mg/dL 70-115 H Notify RN or MDIf you code = POCGLUC) consider you r patient critically ill, the Ricky Accu-Chek InformII metershould not be used for Glucose determinations. Draw a venous Glucose and send to the Main Lab for Analysis. POC Glucose, [id number] 21:43:00 Test Item Value Reference Range Interpretation Comments POC Glucose (test 172 mg/dL 70-115 H Notify RN or MDIf you code = POCGLUC) consider you r patient critically ill, the Ricky Accu-Chek InformII metershould not be used for Glucose determinations. Draw a venous Glucose and send to the Main Lab for Analysis. POC Glucose, [id number] 19:49:00 Test Item Value Reference Range Interpretation Comments POC Glucose (test code = POCGLUC) >600 mg/dL 70-115 HH POC Glucose, [id number] 08:41:00 Test Item Value Reference Range Interpretation Comments POC Glucose (test 250 mg/dL 70-115 H If you con bar turner your code = POCGLUC) patient crit ically ill, the Ricky Accu- Chek InformII meters hould not be used for Glu cose determinations. Draw a venous Glucose and send to the Main Lab for Analysis. Urinalysis [id number] 04:20:00 Test Item Value Reference Range Interpretation Comments Color (test code = COLOR) Straw Yellow,Straw,Pl N yellow Clarity (test code = Clear Clear N CLAR) Specific [place] (test 1.004 1.001-1.035 N code = SPGR) [...] (test code = None /HPF BACT) Alcohol/Ethanol, [id number] 02:19:00 Test Item Value Reference Range Interpretation Comments Alcohol, Ethyl <0.01 g/dL 0.00-0.01 N Intoxicated 0.080 (test code = ETOH) g/dL or m ore Comprehensive Metabolic [id number] 02:19:00 Test Item Value Reference Range Interpretation [...] by the National Kidney Foundation,http ://nkd ep.nih.gov [id number] 02:16:00 Test Item Value Reference Range Interpretation [...] 0.00-0.01 N code = ETOHU) CBC with [id number] 02:06:00 Test Item Value Reference Range Interpretation [...] code = ALYMPH) 2.8 K/cumm 0.5-4.6 N [place] Abs (test code = AMONO) 0.5 K/cumm 0.0-1.2 N Eos Abs (test code = AEOS) 0.15 K/cumm 0.00-0.74 N Baso Abs (test code = ABASO) 0.1 K/cumm 0.00-0.21 N POC Glucose, [id number] 01:51:00 Test Item Value Reference Range Interpretation Comments POC Glucose (test 259 mg/dL 70-115 H If you con bar turner your code = POCGLUC) patient crit ically ill, the Ricky Accu- Chek InformII meters hould not be used for Glu cose determinations. Draw a venous Glucose and send to the Main Lab for Analysis. POC Glucose, [id number] 20:16:00 Test Item Value Reference Range Interpretation Comments POC Glucose (test 301 mg/dL 70-115 H Notify RN or MDIf you code = POCGLUC) consider you r patient critically ill, the Ricky Accu-Chek InformII metershould not be used for Glucose determinations. Draw a venous Glucose and send to the Main Lab for Analysis. Urinalysis [id number] 17:48:00 Test Item Value Reference Range Interpretation Comments Color (test code = COLOR) Straw Yellow,Straw,Pl N yellow Clarity (test code = Clear Clear N CLAR) Specific [place] (test 1.032 1.001-1.035 N code = SPGR) [...] Bacteria (test code = None /HPF BACT) [id number] 17:43:00 Test Item Value Reference Range Interpretation [...] 0.00-0.01 N code = ETOHU) Comprehensive Metabolic [id number] 17:38:00 Test Item Value Reference Range Interpretation [...] National Kidney Foundation,http ://nkd ep.nih.gov CBC with [id number] 17:16:00 Test Item Value Reference Range Interpretation [...] code = ALYMPH) 2.1 K/cumm 0.5-4.6 N [place] Abs (test code = AMONO) 0.6 K/cumm 0.0-1.2 N Eos Abs (test code = AEOS) 0.13 K/cumm 0.00-0.74 N Baso Abs (test code = ABASO) 0.1 K/cumm 0.00-0.21 N POC Glucose, [id number] 16:08:00 Test Item Value Reference Range Interpretation Comments POC Glucose (test code = 457 mg/dL 70-115 HH Not holden RN or POCGLUC) POC Glucose, [id number] 07:43:00 Test Item Value Reference Range Interpretation Comments POC Glucose (test 239 mg/dL 70-115 H If you con bar turner your code = POCGLUC) patient crit ically ill, the Ricky Accu- Chek InformII meters hould not be used for Glu cose determinations. Draw a venous Glucose and send to the Main Lab for Analysis. POC Glucose, [id number] 03:18:00 Test Item Value Reference Range Interpretation Comments POC Glucose (test 376 mg/dL 70-115 H If you con bar turner your code = POCGLUC) patient crit ically ill, the Ricky Accu- Chek InformII meters hould not be used for Glu cose determinations. Draw a venous Glucose and send to the Main Lab for Analysis. POC Glucose, [id number] 03:14:00 Test Item Value Reference Range Interpretation Comments POC Glucose (test code = 402 mg/dL 70-115 HH Not holden RN or POCGLUC) Alcohol/Ethanol, [id number] 02:35:00 Test Item Value Reference Range Interpretation Comments Alcohol, Ethyl <0.01 g/dL 0.00-0.01 N Intoxicated 0.080 (test code = ETOH) g/dL or m ore Urinalysis [id number] 02:19:00 Test Item Value Reference Range Interpretation Comments Color (test code = COLOR) Yellow Yellow,Straw,Pl N yellow Clarity (test code = Clear Clear N CLAR) Specific [place] (test 1.031 1.001-1.035 N code = SPGR) [...] Bacteria (test code = None /HPF BACT) [id number] 02:19:00 Test Item Value Reference Range Interpretation [...] 0.00-0.01 N code = ETOHU) Comprehensive Metabolic [id number] 02:13:00 Test Item Value Reference Range Interpretation [...] National Kidney Foundation,http ://nkd ep.nih.gov CBC with [id number] 02:06:00 Test Item Value Reference Range Interpretation [...] code = ALYMPH) 2.1 K/cumm 0.5-4.6 N [place] Abs (test code = AMONO) 0.6 K/cumm 0.0-1.2 N Eos Abs (test code = AEOS) 0.17 K/cumm 0.00-0.74 N Baso Abs (test code = ABASO) 0.1 K/cumm 0.00-0.21 N POC Glucose, [id number] 00:47:00 Test Item Value Reference Range Interpretation Comments POC Glucose (test 341 mg/dL 70-115 H If you con bar turner your code = POCGLUC) patient crit ically ill, the Ricky Accu- Chek InformII meters hould not be used for Glu cose determinations. Draw a venous Glucose and send to the Main Lab for Analysis. CBC with [id number] 13:38:00 Test Item Value Reference Range Interpretation [...] code = ALYMPH) 2.1 K/cumm 0.5-4.6 N [place] Abs (test code = AMONO) 0.6 K/cumm 0.0-1.2 N Eos Abs (test code = AEOS) 0.13 K/cumm 0.00-0.74 N Baso Abs (test code = ABASO) 0.1 K/cumm 0.00-0.21 N Comprehensive Metabolic [id number] 13:36:00 Test Item Value Reference Range Interpretation [...] National Kidney Foundation,http ://nkd ep.nih.gov XR FOOT [id number] 13:13:25XR ANKLE 2V-RIGHT, XR FOOT 2V-RIGHTLOCATION: [id number]:fallCOMPARISON: None.DISCUSSION:Frontal, oblique, and lateral radiographs of the right ankle and rightfoot were obtained. No fracture, dislocation, lytic or blastic lesions are identified. The joint spaces are preserved.IMPRESSION:No acute osseous abnormalities.XR ANKLE [id number] 13:13:25XR ANKLE 2V-RIGHT, XR FOOT 2V-RIGHTLOCATION: [id number]:fallCOMPARISON: None.DISCUSSION:Frontal, oblique, and lateral radiographs of the right ankle and rightfoot were obtained. No fracture, dislocation, lytic or blastic lesions are identified. The joint spaces are preserved.IMPRESSION:No acute osseous abnormalities.POC Glucose, [id number] 20:04:00 Test Item Value Reference Range Interpretation Comments POC Glucose (test 343 mg/dL 70-115 H If you con bar turner your code = POCGLUC) patient crit ically ill, the Ricky Accu- Chek InformII meters hould not be used for Glu cose determinations. Draw a venous Glucose and send to the Main Lab for Analysis. POC Glucose, [id number] 23:43:00 Test Item Value Reference Range Interpretation Comments POC Glucose (test 160 mg/dL 70-115 H If you con bar turner your code = POCGLUC) patient crit ically ill, the Ricky Accu- Chek InformII meters hould not be used for Glu cose determinations. Draw a venous Glucose and send to the Main Lab for Analysis. Alcohol/Ethanol, [id number] 22:56:00 Test Item Value Reference Range Interpretation Comments Alcohol, Ethyl <0.01 g/dL 0.00-0.01 N Intoxicated 0.080 (test code = ETOH) g/dL or m [facility] Comprehensive Metabolic [id number] 22:56:00 Test Item Value Reference Range Interpretation [...] by the National Kidney Foundation,http ://nkd ep.nih.gov [id number] 22:50:00 Test Item Value Reference Range Interpretation [...] g/dL 0.00-0.01 N code = ETOHU) Urinalysis [id number] 22:38:00 Test Item Value Reference Range Interpretation Comments Color (test code = COLOR) Yellow Yellow,Straw,Pl N yellow Clarity (test code = Clear Clear N CLAR) Specific [place] (test 1.029 1.001-1.035 N code = SPGR) [...] code = None /HPF BACT) CBC with [id number] 22:30:00 Test Item Value Reference Range Interpretation [...] code = ALYMPH) 2.2 K/cumm 0.5-4.6 N [place] Abs (test code = AMONO) 0.6 K/cumm 0.0-1.2 N Eos Abs (test code = AEOS) 0.23 K/cumm 0.00-0.74 N Baso Abs (test code = ABASO) 0.1 K/cumm 0.00-0.21 N POC Glucose, [id number] 22:08:00 Test Item Value Reference Range Interpretation Comments POC Glucose (test code = POCGLUC) 431 mg/dL 70-115 HH Comprehensive Metabolic [id number] 23:34:00 Test Item Value Reference Range Interpretation [...] by the National Kidney Foundation,http ://nkd ep.nih.gov [id number] 23:33:00 Test Item Value Reference Range Interpretation [...] g/dL 0.00-0.01 H code = ETOHU) Urinalysis [id number] 23:26:00 Test Item Value Reference Range Interpretation Comments Color (test code = COLOR) Yellow Yellow,Straw,Pl N yellow Clarity (test code = Clear Clear N CLAR) Specific [place] (test 1.014 1.001-1.035 N code = SPGR) [...] code = None /HPF BACT) CBC with [id number] 23:16:00 Test Item Value Reference Range Interpretation [...] code = ALYMPH) 3.6 K/cumm 0.5-4.6 N [place] Abs (test code = AMONO) 0.5 K/cumm 0.0-1.2 N Eos Abs (test code = AEOS) 0.15 K/cumm 0.00-0.74 N Baso Abs (test code = ABASO) 0.1 K/cumm 0.00-0.21 N POC Glucose, [id number] 12:49:00 Test Item Value Reference Range Interpretation Comments POC Glucose (test 314 mg/dL 70-115 H If you con bar turner your code = POCGLUC) patient crit ically ill, the Ricky Accu- Chek InformII meters hould not be used for Glu cose determinations. Draw a venous Glucose and send to the Main Lab for Analysis. Comprehensive Metabolic [id number] 10:37:00 Test Item Value Reference Range Interpretation [...] the National Kidney Foundation,http ://nkd ep.nih.gov Urinalysis [id number] 10:35:00 Test Item Value Reference Range Interpretation Comments Color (test code = COLOR) Yellow Yellow,Straw,Pl N yellow Clarity (test code = Clear Clear N CLAR) Specific [place] (test 1.036 1.001-1.035 H code = SPGR) [...] Bacteria (test code = None /HPF BACT) [id number] 10:31:00 Test Item Value Reference Range Interpretation [...] 0.00-0.01 N code = ETOHU) CBC with [id number] 10:30:00 Test Item Value Reference Range Interpretation [...] code = ALYMPH) 2.3 K/cumm 0.5-4.6 N [place] Abs (test code = AMONO) 0.4 K/cumm 0.0-1.2 N Eos Abs (test code = AEOS) 0.08 K/cumm 0.00-0.74 N Baso Abs (test code = ABASO) 0.1 K/cumm 0.00-0.21 N Glycosylated [id number] 12:49:00 Test Item Value Reference Range Interpretation Comments HBA1c (test code = HBA1C) 11.8 % 4.8-5.9 H RPR, [id number] 12:31:00 Test Item Value Reference Range Interpretation Comments RPR (test code = RPR) Non-Reactive Non-Reactive N Thyroid Stimulating Hormone (TSH)2017-02-19 09:41:00 Test Item Value Reference Range Interpretation Comments TSH (test code = TSH) 1.85 mIU/mL 0.270-4.200 N Lipid [id number] 09:36:00 Test Item Value Reference Range Interpretation Comments Cholesterol (test 170 mg/dL 0-200 N code = CHOL) Triglycerides (test 107 mg/dL 9-200 N code = TRIG) HDL (test code = 40 mg/dL 40-60 N HDL) Chol/HDL (test code 4.3 Ratio 0.0-5.0 N = CHOLPHDL) LDL, Calculated 109 0-130 N (NOTE)RISK O F HEART (test code = LDLC) DISEASEPu blished by [place] Heart AssociationAnal yte Optim al Boderline Increased RiskC HOL <200 200-239 >240TRI G <150 150-199 >200HDL Male: >60 <40HDL Female: >60 <50 LDL < 100 130-15 9 >160 LDL NEAR OPTIMAL IS 100- 129 VLDL (test code = 21 mg/dL 5-40 N VLDL) LDL/HDL (test code = 3 LDLPHDL) POC Glucose, [id number] 06:04:00 Test Item Value Reference Range Interpretation Comments POC Glucose (test 256 mg/dL 70-115 H If you con bar turner your code = POCGLUC) patient crit ically ill, the Ricky Accu- Chek InformII meters hould not be used for Glu cose determinations. Draw a venous Glucose and send to the Main Lab for Analysis. POC Glucose, [id number] 22:06:00 Test Item Value Reference Range Interpretation Comments POC Glucose (test 226 mg/dL 70-115 H If you con bar turner your code = POCGLUC) patient crit ically ill, the Ricky Accu- Chek InformII meters hould not be used for Glu cose determinations. Draw a venous Glucose and send to the Main Lab for Analysis. POC Glucose, [id number] 18:18:00 Test Item Value Reference Range Interpretation Comments POC Glucose (test 192 mg/dL 70-115 H If you con bar turner your code = POCGLUC) patient crit ically ill, the Ricky Accu- Chek InformII meters hould not be used for Glu cose determinations. Draw a venous Glucose and send to the Main Lab for Analysis. POC Glucose, [id number] 14:44:00 Test Item Value Reference Range Interpretation Comments POC Glucose (test 263 mg/dL 70-115 H If you con bar turner your code = POCGLUC) patient crit ically ill, the Ricky Accu- Chek InformII meters hould not be used for Glu cose determinations. Draw a venous Glucose and send to the Main Lab for Analysis. POC Glucose, [id number] 12:01:00 Test Item Value Reference Range Interpretation Comments POC Glucose (test 277 mg/dL 70-115 H If you con bar turner your code = POCGLUC) patient crit ically ill, the Ricky Accu- Chek InformII meters hould not be used for Glu cose determinations. Draw a venous Glucose and send to the Main Lab for Analysis. Comprehensive Metabolic [id number] 12:00:00 Test Item Value Reference Range Interpretation [...] the National Kidney Foundation,http ://nkd ep.nih.gov Alcohol/Ethanol, [id number] 12:00:00 Test Item Value Reference Range Interpretation Comments Alcohol, Ethyl <0.01 g/dL 0.00-0.01 N Intoxicated 0.080 (test code = ETOH) g/dL or m ore Urinalysis [id number] 11:55:00 Test Item Value Reference Range Interpretation Comments Color (test code = COLOR) Yellow Yellow,Straw,Pl N yellow Clarity (test code = Clear Clear N CLAR) Specific [place] (test 1.035 1.001-1.035 N code = SPGR) [...] Bacteria (test code = Few /HPF BACT) [id number] 11:53:00 Test Item Value Reference Range Interpretation [...] = THC) Negative Negative N CBC with [id number] 11:33:00 Test Item Value Reference Range Interpretation [...] code = ALYMPH) 1.9 K/cumm 0.5-4.6 N [place] Abs (test code = AMONO) 1.0 K/cumm 0.0-1.2 N Eos Abs (test code = AEOS) 0.08 K/cumm 0.00-0.74 N Baso Abs (test code = ABASO) 0.0 K/cumm 0.00-0.21 N Alcohol/Ethanol, [id number] 22:23:00 Test Item Value Reference Range Interpretation Comments Alcohol, Ethyl <0.01 g/dL 0.00-0.01 N Intoxicated 0.080 (test code = ETOH) g/dL or m [facility] Comprehensive Metabolic [id number] 22:23:00 Test Item Value Reference Range Interpretation [...] by the National Kidney Foundation,http ://nkd ep.nih.gov [id number] 22:23:00 Test Item Value Reference Range Interpretation [...] code = THC) Negative Negative N Urinalysis [id number] 22:13:00 Test Item Value Reference Range Interpretation Comments Color (test code = COLOR) Yellow Yellow,Straw,Pl N yellow Clarity (test code = Clear Clear N CLAR) Specific [place] (test 1.029 1.001-1.035 N code = SPGR) [...] code = None /HPF BACT) CBC with [id number] 22:00:00 Test Item Value Reference Range Interpretation [...] code = ALYMPH) 0.9 K/cumm 0.5-4.6 N [place] Abs (test code = AMONO) 0.3 K/cumm 0.0-1.2 N Eos Abs (test code = AEOS) 0.02 K/cumm 0.00-0.74 N Baso Abs (test code = ABASO) 0.0 K/cumm 0.00-0.21 N POC Glucose, [id number] 05:15:00 Test Item Value Reference Range Interpretation Comments POC Glucose (test 270 mg/dL 70-115 H Notify RN or MDIf you code = POCGLUC) consider you r patient critically ill, the Ricky Accu-Chek InformII metershould not be used for Glucose determinations. Draw a venous Glucose and send to the Main Lab for Analysis. POC Glucose, [id number] 19:44:00 Test Item Value Reference Range Interpretation Comments POC Glucose (test 338 mg/dL 70-115 H Notify RN or MDIf you code = POCGLUC) consider you r patient critically ill, the Ricky Accu-Chek InformII metershould not be used for Glucose determinations. Draw a venous Glucose and send to the Main Lab for Analysis. POC Glucose, [id number] 15:20:00 Test Item Value Reference Range Interpretation Comments POC Glucose (test 338 mg/dL 70-115 H Notify RN or MDIf you code = POCGLUC) consider you r patient critically ill, the Ricky Accu-Chek InformII metershould not be used for Glucose determinations. Draw a venous Glucose and send to the Main Lab for Analysis. POC Glucose, [id number] 13:31:00 Test Item Value Reference Range Interpretation Comments POC Glucose (test code = 443 mg/dL 70-115 HH Not holden RN or MD POCGLUC) POC Glucose, [id number] 10:39:00 Test Item Value Reference Range Interpretation Comments POC Glucose (test code = 560 mg/dL 70-115 HH Not holden RN or MD POCGLUC) Thyroid Stimulating Hormone (TSH)2017-02-14 08:52:00 Test Item Value Reference Range Interpretation Comments TSH (test code = TSH) 1.40 mIU/mL 0.270-4.200 N Comprehensive Metabolic [id number] 08:31:00 Test Item Value Reference Range Interpretation [...] the National Kidney Foundation,http ://nkd ep.nih.gov Lipid [id number] 08:31:00 Test Item Value Reference Range Interpretation [...] (test code = LDLC) DISEASEPu blished by [place] Heart AssociationAnal yte Optim al Boderline Increased RiskC HOL <200 200-239 >240TRI G <150 150-199 >200HDL Male: >60 <40HDL Female: >60 <50 LDL < 100 130-15 9 >160 LDL NEAR OPTIMAL IS 100- 129 VLDL (test code = 69 mg/dL 5-40 H VLDL) LDL/HDL (test code = 4 LDLPHDL) RPR, [id number] 06:26:00 Test Item Value Reference Range Interpretation Comments RPR (test code = RPR) Non-Reactive Non-Reactive N Thyroid Stimulating Hormone (TSH)2017-02-13 23:13:00 Test Item Value Reference Range Interpretation Comments TSH (test code = TSH) 2.10 mIU/mL 0.270-4.200 N Lipid [id number] 23:13:00 Test Item Value Reference Range Interpretation Comments Cholesterol (test 255 mg/dL 0-200 H code = CHOL) Triglycerides (test 559 mg/dL 9-200 H code = TRIG) HDL (test code = 32 mg/dL 40-60 L HDL) Chol/HDL (test code 8.0 Ratio 0.0-5.0 H = CHOLPHDL) LDL, Calculated No Calc 0-130 N (NOTE)RISK O F HEART (test code = LDLC) DISEASEPu blished by [place] Heart AssociationAnal yte Optim al Boderline Increased RiskC HOL <200 200-239 >240TRI G <150 150-199 >200HDL Male: >60 <40HDL Female: >60 <50 LDL < 100 130-15 9 >160 LDL NEAR OPTIMAL IS 100-129\\LIPIDNC VLDL (test code = No Calc 5-40 N \\LIPIDNC VLDL) mg/dL LDL/HDL (test code = No Calc \\LIPIDN C LDLPHDL) POC Glucose, [id number] 16:09:00 Test Item Value Reference Range Interpretation Comments POC Glucose (test 340 mg/dL 70-115 H If you con bar turner your code = POCGLUC) patient crit ically ill, the Ricky Accu- Chek InformII meters hould not be used for Glu cose determinations. Draw a venous Glucose and send to the Main Lab for Analysis. POC Glucose, [id number] 11:08:00 Test Item Value Reference Range Interpretation Comments POC Glucose (test 336 mg/dL 70-115 H If you con bar turner your code = POCGLUC) patient crit ically ill, the Ricky Accu- Chek InformII meters hould not be used for Glu cose determinations. Draw a venous Glucose and send to the Main Lab for Analysis. POC Glucose, [id number] 08:05:00 Test Item Value Reference Range Interpretation Comments POC Glucose (test 325 mg/dL 70-115 H If you con bar turner your code = POCGLUC) patient crit ically ill, the Ricky Accu- Chek InformII meters hould not be used for Glu cose determinations. Draw a venous Glucose and send to the Main Lab for Analysis. POC Glucose, [id number] 06:27:00 Test Item Value Reference Range Interpretation Comments POC Glucose (test 338 mg/dL 70-115 H If you con bar turner your code = POCGLUC) patient crit ically ill, the Ricky Accu- Chek InformII meters hould not be used for Glu cose determinations. Draw a venous Glucose and send to the Main Lab for Analysis. POC Glucose, [id number] 05:02:00 Test Item Value Reference Range Interpretation Comments POC Glucose (test code = 461 mg/dL 70-115 HH Not holden ZELAYA or POCGLUC) Comprehensive Metabolic [id number] 23:52:00 Test Item Value Reference Range Interpretation [...] the National Kidney Foundation,http ://nkde p.nih.gov Urinalysis [id number] 23:37:00 Test Item Value Reference Range Interpretation Comments Color (test code = COLOR) Yellow Yellow,Straw,Pl N yellow Clarity (test code = Clear Clear N CLAR) Specific [place] (test 1.027 1.001-1.035 N code = SPGR) [...] Bacteria (test code = None /HPF BACT) [id number] 23:36:00 Test Item Value Reference Range Interpretation [...] 0.00-0.01 N code = ETOHU) CBC with [id number] 23:10:00 Test Item Value Reference Range Interpretation [...] code = ALYMPH) 3.2 K/cumm 0.5-4.6 N [place] Abs (test code = AMONO) 0.4 K/cumm 0.0-1.2 N Eos Abs (test code = AEOS) 0.23 K/cumm 0.00-0.74 N Baso Abs (test code = ABASO) 0.1 K/cumm 0.00-0.21 N POC Glucose, [id number] 02:01:00 Test Item Value Reference Range Interpretation Comments POC Glucose (test code = 410 mg/dL 70-115 HH Not holden RN or POCGLUC) Comprehensive Metabolic [id number] 23:58:00 Test Item Value Reference Range Interpretation [...] the National Kidney Foundation,http ://nkd ep.nih.govverp rblv [id number] 23:28:00 Test Item Value Reference Range Interpretation [...] g/dL 0.00-0.01 N code = ETOHU) Urinalysis [id number] 23:27:00 Test Item Value Reference Range Interpretation Comments Color (test code = COLOR) Straw Yellow,Straw,Pl N yellow Clarity (test code = Clear Clear N CLAR) Specific [place] (test 1.031 1.001-1.035 N code = SPGR) [...] code = None /HPF BACT) CBC with [id number] 23:18:00 Test Item Value Reference Range Interpretation [...] code = ALYMPH) 2.9 K/cumm 0.5-4.6 N [place] Abs (test code = AMONO) 0.5 K/cumm 0.0-1.2 N Eos Abs (test code = AEOS) 0.17 K/cumm 0.00-0.74 N Baso Abs (test code = ABASO) 0.1 K/cumm 0.00-0.21 N Urinalysis [id number] 06:46:00 Test Item Value Reference Range Interpretation Comments Color (test code = COLOR) Straw Yellow,Straw,Pl N yellow Clarity (test code = Clear Clear N CLAR) Specific [place] (test 1.032 1.001-1.035 N code = SPGR) [...] Bacteria (test code = Occ /HPF BACT) [id number] 06:07:00 Test Item Value Reference Range Interpretation [...] 0.00-0.01 N code = ETOHU) Comprehensive Metabolic [id number] 05:33:00 Test Item Value Reference Range Interpretation [...] National Kidney Foundation,http ://nkd ep.nih.gov CBC with [id number] 05:08:00 Test Item Value Reference Range Interpretation [...] code = ALYMPH) 1.4 K/cumm 0.5-4.6 N [place] Abs (test code = AMONO) 0.5 K/cumm 0.0-1.2 N Eos Abs (test code = AEOS) 0.06 K/cumm 0.00-0.74 N Baso Abs (test code = ABASO) 0.1 K/cumm 0.00-0.21 N Basic Metabolic [id number] 21:36:00 Test Item Value Reference Range Interpretation [...] National Kidney Foundation,http ://nkd ep.nih.gov Basic Metabolic [id number] 20:55:00 Test Item Value Reference Range Interpretation [...] National Kidney Foundation,http ://nkd ep.nih.gov POC Glucose, [id number] 20:43:00 Test Item Value Reference Range Interpretation Comments POC Glucose (test 316 mg/dL 70-115 H Notify RN or MDIf you code = POCGLUC) consider you r patient critically ill, the Ricky Accu-Chek InformII metershould not be used for Glucose determinations. Draw a venous Glucose and send to the Main Lab for Analysis. POC Glucose, [id number] 20:12:00 Test Item Value Reference Range Interpretation Comments POC Glucose (test 309 mg/dL 70-115 H Notify RN or MDIf you code = POCGLUC) consider you r patient critically ill, the Ricky Accu-Chek InformII metershould not be used for Glucose determinations. Draw a venous Glucose and send to the Main Lab for Analysis. POC Glucose, [id number] 18:58:00 Test Item Value Reference Range Interpretation Comments POC Glucose (test 339 mg/dL 70-115 H Notify RN or MDIf you code = POCGLUC) consider you r patient critically ill, the Ricky Accu-Chek InformII metershould not be used for Glucose determinations. Draw a venous Glucose and send to the Main Lab for Analysis. Urinalysis [id number] 18:17:00 Test Item Value Reference Range Interpretation Comments Color (test code = COLOR) Straw Yellow,Straw,Pl N yellow Clarity (test code = Clear Clear N CLAR) Specific [place] (test 1.028 1.001-1.035 N code = SPGR) [...] code = Few /HPF BACT) Comprehensive Metabolic [id number] 17:27:00 Test Item Value Reference Range Interpretation Comments Sodium (test code = 123 mmol/L 135-145 L NA) Potassium (test 4.3 mmol/L 3.5-5.1 N code = K) Chloride (test code 84 mmol/L 98-105 L = CL) Carbon Dioxide 25 mmol/L 22-29 N (test code = CO2) Glucose (test code 846 mg/dL 70-115 HH VERIFIED BY REPEAT = GLU) TESTINGREAD DARSHAN K LAB VALUESA DVAID ZELAYA 17:26 7 OG Blood Urea Nitrogen [...] National Kidney Foundation,http ://nkd ep.nih.gov CBC with [id number] 16:50:00 Test Item Value Reference Range Interpretation [...] code = ALYMPH) 2.0 K/cumm 0.5-4.6 N [place] Abs (test code = AMONO) 0.6 K/cumm 0.0-1.2 N Eos Abs (test code = AEOS) 0.09 K/cumm 0.00-0.74 N Baso Abs (test code = ABASO) 0.1 K/cumm 0.00-0.21 N [id number] 16:31:00 Test Item Value Reference Range Interpretation [...]
[2020-09-14 11:22] LABS: Urine Blood Negative (Negative); Urine Glucose 3+ (Negative); Urine Protein Negative (Negative); Urine Specific Gravity <=1.005 (1.005-1.030)
[2020-09-14] MEDS ORDERED: NA CHLORIDE 0.9% 2,000 ML ONE (11:24)
[2020-09-14 11:28] LABS: Absolute Lymphocytes (CBC) 1.7 K/uL (0.7-4.9); Basophils % 1.3 % (0-1.3); Hematocrit 41.6 % (39.6-49.0); Lymphocytes % 26.1 % (15.3-44.8); MPV 9.1 fL (7.6-11.3); RBC Red Blood Cell Count 4.52 M/uL (4.33-5.43)
[2020-09-14 11:41] LABS: Potassium 3.7 mmol/L (3.5-5.1)
[2020-09-14 11:42] LABS: Barbiturates NEGATIVE (NEGATIVE); Benzodiazepines NEGATIVE (NEGATIVE); Cocaine NEGATIVE (NEGATIVE); METHAMPHETAM NEGATIVE (NEGATIVE); Methadone NEGATIVE (NEGATIVE); Opiates NEGATIVE (NEGATIVE); Phencyclidine NEGATIVE (NEGATIVE); THC Cannibis NEGATIVE (NEGATIVE)
[2020-09-14] MEDS ORDERED: INSULIN -REGULAR HUMAN 50 UNIT/0.5 ML ML ONE (13:17)
--- NOTE | 2020-09-14 13:47 | ER ---
Nurse's Notes [facility] Name: Bryn Camargo Age: 44 yrs Sex: Male : 1975 Arrival Date: 09/14/2020 Time: 10:35 Bed 16 Private MD: Diagnosis: Hyperglycemia, unspecified Presentation: 09/14 10:35 Chief complaint: EMS states: CALLED FROM [employer] AFTER EATING TAQUITOS AND DRINKING bp SODAS FOR HYPERGLYCEMIA. Coronavirus screen: At this time, the client does not indicate any symptoms associated with coronavirus-19. Ebola Screen: No symptoms or risks identified at this time. Initial Sepsis Screen: Does the patient meet any 2 criteria? No. Patient's initial sepsis screen is negative. Does the patient have a suspected source of infection? No. Patient's initial sepsis screen is negative. Risk Assessment: Do you want to hurt yourself or someone else? Other: CHRONIC. Onset of symptoms is unknown. Care prior to arrival: Medication(s) given: Normal saline infusion, 500 mL, IV initiated. 18 GA, in the left forearm. 10:35 Method Of Arrival: EMS: [facility] bp 10:35 Acuity: FLETCHER 3 bp Triage Assessment: 10:40 General: Appears in no apparent distress. comfortable, Behavior is calm, cooperative, bp appropriate for age. Pain: Denies pain. EENT: No deficits noted. Neuro: No deficits noted. Cardiovascular: No deficits noted. Respiratory: No deficits noted. GI: No signs and/or symptoms were reported involving the gastrointestinal system. : No signs and/or symptoms were reported regarding the genitourinary system. Derm: No deficits noted. Musculoskeletal: No deficits noted. Historical: - Allergies: 10:40 No Known Allergies; bp - Home Meds: 10:40 Abilify Oral [Active]; Depakote Oral [Active]; Invega Sustenna intramuscular [Active]; bp Risperdal Oral [Active]; - PMHx: 10:40 Anxiety; Depression; Schizophrenia; bp - Immunization history:: Adult Immunizations unknown. - Social history:: Smoking status: Patient reports the use of cigarette tobacco products, unknown amount. Screenin:42 Abuse screen: Denies threats or abuse. Denies injuries from another. Nutritional bp screening: No deficits noted. Tuberculosis screening: No symptoms or risk factors identified. Fall Risk None identified. Assessment: 10:42 General: SEE TRIAGE NOTE. bp 12:00 Reassessment: No changes from previously documented assessment. Patient and/or family bp updated on plan of care and expected duration. Pain level reassessed. Patient is alert, oriented x 3, equal unlabored respirations, skin warm/dry/pink. ALL CURRENT ORDERS COMPLETE. 12:51 Reassessment: No changes from previously documented assessment. Patient and/or family bp updated on plan of care and expected duration. Pain level reassessed. PT NOW STATING TO PROVIDER THAT HE WAS NOT SUICIDAL, BUT IS PRIMARILY CONCERNED WITH OBTAINING PLACEMENT IN HOUSING OF SOME KIND PRIOR TO 1900, WHICH IS WHY HE REQUESTED TO BE TRANSFERRED TO [facility] IN Patient denies pain at this time. Patient states symptoms have improved. 13:27 Reassessment: Patient appears in no apparent distress at this time. Patient and/or bp family updated on plan of care and expected duration. Pain level reassessed. Patient is alert, oriented x 3, equal unlabored respirations, skin warm/dry/pink. 14:01 Reassessment: PT D/C AMBULATORY, DX WITH HYPERGLYCEMIA. AWAITING [facility] FOR bp TRANSPORT. Vital Signs: 10:45 BP 138 / 84; Pulse 88; Resp 17; Temp 98; Pulse Ox 100% ; bp 12:07 BP 136 / 87; Pulse 72; Resp 16; Pulse Ox 100% ; bp 12:51 BP 138 / 84; Pulse 88; Resp 17; Pulse Ox 100% ; bp 13:27 BP 119 / 85; Pulse 76; Resp 16; Pulse Ox 100% ; bp ED Course: 10:35 Patient arrived in ED. bp 10:35 Cr Fiore NP is PHCP. pm1 10:35 Valentin Aguilera MD is Attending Physician. pm1 10:38 Triage completed. bp 10:40 Arm band placed on. bp 10:42 Patient has correct armband on for positive identification. Bed in low position. Call bp light in reach. Side rails up X2. 10:42 Maintain EMS IV. Dressing intact. Good blood return noted. Site clean \T\ dry. Gauge \T\ bp site: 18 GAUGE LEFT FA. 10:49 Christ Sosa, GARCIA is Primary Nurse. bp 14:01 No provider procedures requiring assistance completed. IV discontinued, intact, bp bleeding controlled, No redness/swelling at site. Pressure dressing applied. Administered Medications: 11:10 Drug: NS 0.9% 1000 ml Route: IV; Rate: 1000 ml; Site: left forearm; bp 14:03 Follow up: IV Status: Completed infusion; IV Intake: 1000ml bp 11:10 Drug: NS 0.9% 1000 ml Route: IV; Rate: 1000 ml; Site: left forearm; bp 14:04 Follow up: IV Status: Completed infusion; IV Intake: 1000ml bp 12:45 Drug: Insulin Regular Human 10 units {Co-Signature: jarabella (Austen Lopez RN).} Route: bp Sub-Q; Site: left lower abdomen; 14:05 Follow up: Response: Blood sugar is lowered bp Intake: 14:03 IV: 1000ml; Total: 1000ml. bp 14:04 IV: 1000ml; Total: 2000ml. bp Outcome: 13:46 Discharge ordered by MD. pm1 14:01 Discharged to [facility] 14:01 Condition: stable 14:01 Discharge instructions given to patient, Instructed on discharge instructions, follow up and referral plans. medication usage, Demonstrated understanding of instructions, follow-up care. 14:06 Patient left the ED. ll1 Signatures: Cr Fiore NP PROPERTY MANAGEMENT SPECIALIST pm1 Christ Sosa RN RN bp Suad García, GARCIA RN 1 Austen Lopez RN [email or web address] Corrections: (The following items were deleted from the chart) 12:54 12:51 Reassessment: No changes from previously documented assessment. Patient and/or bp family updated on plan of care and expected duration. Pain level reassessed. PT NOW STATING TO PROVIDER THAT HE WAS NOT SUICIDAL, BUT IS PRIMARILY CONCERNED WITH OBTAINING PLACEMENT IN HOUSING OF SOME KIND PRIOR TO 1900 bp
--- NOTE | 2020-09-14 13:47 | EDPHYS ---
Physician Documentation [facility] Name: Bryn Camargo Age: 44 yrs Sex: Male : 1975 Arrival Date: 09/14/2020 Time: 10:35 Bed 16 Private MD: ED Physician Valentin Aguilera HPI: 09/14 11:09 This 44 yrs old Male presents to ER via EMS with complaints of High Blood pm1 Sugar. 11:09 The patient or guardian reports hyperglycemia, that was potentially precipitated by pm1 drinking multiple sodas. Onset: The symptoms/episode began/occurred today. Associated signs and symptoms: Pertinent negatives: None. Current symptoms: In the emergency department the patient's symptoms are unchanged from the initial presentation. The patient has experienced similar episodes in the past, multiple times. The patient has been recently seen at the [facility] Emergency Department, for unrelated complaints, schizophernia. Historical: - Allergies: 10:40 No Known Allergies; bp - Home Meds: 10:40 Abilify Oral [Active]; Depakote Oral [Active]; Invega Sustenna intramuscular [Active]; bp Risperdal Oral [Active]; - PMHx: 10:40 Anxiety; Depression; Schizophrenia; bp - Immunization history:: Adult Immunizations unknown. - Social history:: Smoking status: Patient reports the use of cigarette tobacco products, unknown amount. ROS: 12:51 Constitutional: Negative for fever, chills, and weight loss, Eyes: Negative for injury, pm1 pain, redness, and discharge, ENT: Negative for injury, pain, and discharge, Cardiovascular: Negative for chest pain, palpitations, and edema, Respiratory: Negative for shortness of breath, cough, wheezing, and pleuritic chest pain, Abdomen/GI: Negative for abdominal pain, nausea, vomiting, diarrhea, and constipation, Back: Negative for injury and pain, MS/Extremity: Negative for injury and deformity, Skin: Negative for injury, rash, and discoloration, Neuro: Negative for headache, weakness, numbness, tingling, and seizure. 12:51 Psych: Positive for auditory hallucinations, Negative for suicidal ideation. Exam: 12:51 Constitutional: This is a well developed, well nourished patient who is awake, alert, pm1 and in no acute distress. Head/Face: Normocephalic, atraumatic. 12:51 Skin: Warm, dry with normal turgor. Normal color with no rashes, no lesions, and no evidence of cellulitis. MS/ Extremity: Pulses equal, no cyanosis. Neurovascular intact. Full, normal range of motion. 12:51 Eyes: Exam is negative for acute changes, Extraocular movements: intact throughout, Conjunctiva: normal, Sclera: icterus, is not appreciated. 12:51 ENT: Mouth: Lips: normal, Oral mucosa: normal, pink and intact, moist. 12:51 Cardiovascular: Rate: normal, Rhythm: regular, Pulses: no pulse deficits are appreciated. 12:51 Respiratory: Exam negative for acute changes, respiratory distress, shortness of breath, Breath sounds: are clear throughout. 12:51 Abdomen/GI: Inspection: abdomen appears normal, Palpation: abdomen is soft and non-tender, in all quadrants. 12:51 Neuro: Orientation: is normal, Mentation: is normal, Motor: is normal, moves all fours, Gait: is steady, at a normal pace, without difficulty. 12:51 Psych: Behavior/mood is pleasant, Affect is calm, Oriented to person, place, time, Patient has no thoughts/intents to harm self or others. Vital Signs: 10:45 BP 138 / 84; Pulse 88; Resp 17; Temp 98; Pulse Ox 100% ; bp 12:07 BP 136 / 87; Pulse 72; Resp 16; Pulse Ox 100% ; bp 12:51 BP 138 / 84; Pulse 88; Resp 17; Pulse Ox 100% ; bp 13:27 BP 119 / 85; Pulse 76; Resp 16; Pulse Ox 100% ; bp MDM: 10:55 Patient medically screened. pm1 12:51 ED course: Patient denies that he is suicidal. He would like a voucher to get [facility] for a [facility] to stay. He would prefer to go to the crisis center because they allow people to stay for a week. 13:45 Data reviewed: vital signs. Data interpreted: Pulse oximetry: on room air is 100 %. pm1 Interpretation: normal. Counseling: I had a detailed discussion with the patient and/or guardian regarding: the historical points, exam findings, and any diagnostic results supporting the discharge/admit diagnosis, lab results, the need for outpatient follow up, to return to the emergency department if symptoms worsen or persist or if there are any questions or concerns that arise at home. 09/14 10:55 Order name: Basic Metabolic Panel pm1 09/14 10:55 Order name: CBC with Diff pm1 09/14 10:55 Order name: ETOH Level pm1 09/14 10:56 Order name: Basic Metabolic Panel; Complete Time: 12:20 EDMS 09/14 10:56 Order name: CBC with Automated Diff; Complete Time: 12:20 EDMS 09/14 10:56 Order name: Alcohol Serum/Plasma; Complete Time: 12:20 EDMS 09/14 10:55 Order name: IV Saline Lock; Complete Time: 11:00 pm1 09/14 10:55 Order name: Labs collected and sent; Complete Time: 11:34 pm1 09/14 11:00 Order name: UDS; Complete Time: 12:20 bp 09/14 11:22 Order name: Urine Dipstick-Ancillary; Complete Time: 12:20 EDMS 09/14 13:27 Order name: Glucose, Ancillary Testing; Complete Time: 20:35 EDMS 09/14 11:00 Order name: Urine Dipstick-Ancillary (obtain specimen); Complete Time: 11:24 bp Administered Medications: 11:10 Drug: NS 0.9% 1000 ml Route: IV; Rate: 1000 ml; Site: left forearm; bp 14:03 Follow up: IV Status: Completed infusion; IV Intake: 1000ml bp 11:10 Drug: NS 0.9% 1000 ml Route: IV; Rate: 1000 ml; Site: left forearm; bp 14:04 Follow up: IV Status: Completed infusion; IV Intake: 1000ml bp 12:45 Drug: Insulin Regular Human 10 units {Co-Signature: jd3 (Austen Lopez RN).} Route: bp Sub-Q; Site: left lower abdomen; 14:05 Follow up: Response: Blood sugar is lowered bp Disposition: 17:30 Co-signature as Attending Physician, Valentin Aguilera MD. rn Disposition: 09/14/20 13:46 Discharged to Home. Impression: Hyperglycemia, unspecified. - Condition is Stable. - Discharge Instructions: Hyperglycemia, Blood Glucose Monitoring, Adult, Diabetes and Exercise. - Medication Reconciliation Form, Thank You Letter, Antibiotic Education, Prescription Opioid Use form. - Follow up: Emergency Department; When: As needed; Reason: Worsening of condition. Follow up: Private Physician; When: 2 - 3 days; Reason: Recheck today's complaints, Continuance of care, Re-evaluation by your physician. - Problem is new. - Symptoms have improved. Signatures: Dispatcher [employer] EDMS Valentin Aguilera MD MD rn Marinas, Patrick, HAT PARTS CUTTER MACHINE HAT PARTS CUTTER MACHINE pm1 Christ Sosa RN RN Suad Hazel RN RN ll1 Austen Lopez RN jd3 Corrections: (The following items were deleted from the chart) 14:06 13:46 09/14/2020 13:46 Discharged to Home. Impression: Hyperglycemia, unspecified. ll1 Condition is Stable. Forms are Medication Reconciliation Form, Thank You Letter, Antibiotic Education, Prescription Opioid Use. Follow up: Emergency Department; When: As needed; Reason: Worsening of condition. Follow up: Private Physician; When: 2 - 3 days; Reason: Recheck today's complaints, Continuance of care, Re-evaluation by your physician. Problem is new. Symptoms have improved. pm1
[2020-09-14 14:41] VITALS: TEMP 98; O2SAT 100
[2020-09-14 14:45] VITALS: BP 119/85
== END 2020-09-14 14:06 | disposition home or self-care (01) ==
LOC: ER 10:34
DX: R73.9 Hyperglycemia, unspecified (principal); F20.9 Schizophrenia, unspecified; Z72.0 Tobacco use
CPT/HCPCS: 85025; 80048; 36415; 80320; 82947; 80307 ×8; 81003; J7030; 96360; 96361; 96372; 99283

== ENCOUNTER 2024-07-01 18:12 | Emergency (ER) | payer OTHER ==
[2024-07-01 19:00] LABS: Absolute Basophils 0.1 K/uL (0-0.5); Absolute Eosinophils 0.2 K/uL (0-0.5); Absolute Lymphocytes (CBC) 2.1 K/uL (0.7-4.9); Absolute Monocytes 0.7 K/uL (0.1-1.3); Absolute Neutrophil 3.9 K/uL (1.8-8.0); Basophils % 0.8 % (0-1.3); Eosinophils % 2.3 % (0-4.4); Hematocrit 40.2 % (39.6-49.0); Hemoglobin 13.6 g/dL (13.6-17.9); MCH 30.2 pg (27.0-35.0); MCHC 33.9 g/dL (32.0-36.0); MCV 89.2 fL (80-100); MPV 7.4 fL (7.6-11.3); Monocytes % 10.8 % (3.3-12.3); Neutrophils % 56.1 % (41.7-73.7); Nucleated Red Blood Cells % 0.1 % (0-0); Platelets 269 thou/uL (152-406); Red Cell Distribution Width 14.6 % (12.1-15.2)
[2024-07-01 19:12] LABS: PT Prothrombin Time 11.2 SECONDS (10-13.0); PTT, Activated Partial Thromb 28.5 SECONDS (27.2-37.4); Protime INR 0.98
[2024-07-01 19:22] LABS: ALT/SGPT 28 U/L (16-61); AST/SGOT 16 U/L (15-37); Albumin 3.6 g/dL (3.4-5.0); Albumin/Globulin Ratio 0.8 (1.1-1.8); Alkaline Phosphatase 92 U/L (45-117); Anion Gap 7.9 mEq/L (5.0-15.0); BUN Blood Urea Nitrogen 10 mg/dL (7-18); Bicarbonate 29 mEq/L (21-32); Bilirubin Total 0.2 mg/dL (0.2-1.0); Globulin 4.3 g/dL (2.3-3.5); Glomerular Filtration Rate 91 ml/min (=/>90); Glucose Level 232 mg/dL (74-106); Potassium 3.9 mEq/L (3.5-5.1); Protein, Total 7.9 g/dL (6.4-8.2); Sodium Level 130 mEq/L (136-145)
[2024-07-01 19:23] LABS: Bilirubin Direct < 0.2 mg/dL (0-0.2)
--- NOTE | 2024-07-01 19:43 | EDPHYS ---
Physician Documentation [facility] Name: Bryn Camargo Age: 48 yrs Sex: Male : 1975 Arrival Date: 07/01/2024 Time: 18:12 Bed 18 Private MD: ED Physician Pranay Stubbs HPI: 07/01 18:15 This 48 yrs old Male presents to ER via Unassigned with complaints of reported ec2 hallucinations. 18:15 Patient arrives today for reported hallucinations. Patient reports that he ran out of ec2 his medications and is hearing things. Denies any specific suicidality or homicidality.. Historical: - Allergies: 18:42 No Known Allergies; ap3 - Home Meds: 22:36 Abilify Oral [Active]; Depakote Oral [Active]; Invega Sustenna intramuscular [Active]; aa10 Risperdal Oral [Active]; - PMHx: 18:42 Anxiety; Depression; Schizophrenia; Chronic obstructive lung disease; Diabetes ap3 mellitus; Bipolar disorder; - Immunization history:: Client reports having NOT received the Covid vaccine. - Infectious Disease History:: Denies. - Social history:: Smoking status: Patient reports the use of cigarette tobacco products, Patient uses street drugs, cocaine, Methamphetamine (Meth) cush. ROS: 18:15 Constitutional: as per hpi ec2 Exam: 18:15 Constitutional: GEN: NAD Head: atraumatic Eyes: EOMI Ears: External ears are ec2 normal. CV: regular rate LUNGS: no respiratory distress ABD: non-distended SKIN: no evidence of rashes MSK: no evidence of trauma. Psych: Cooperative individual is otherwise in no acute distress was not internally preoccupied with answering questions appropriately Vital Signs: 18:39 BP 144 / 81; Pulse 78; Resp 18; Temp 98.4(O); Pulse Ox 98% on R/A; Weight 72.57 kg; ap3 Height 5 ft. 4 in. ; 22:34 BP 140 / 80; Pulse 72; Resp 20; Pulse Ox 99% on R/A; aa10 18:39 Body Mass Index 27.46 (72.57 kg, 162.56 cm) ap3 MDM: 18:14 Medical Screening Exam initiated ec2 18:15 Data reviewed: vital signs, nurses notes. ED course: Patient arrives today for reported ec2 hallucinations. Reqrroxktms-tclg-[id number] nontoxic individuals otherwise in no acute distress. Will obtain lab work to facilitate psychiatric workup.. 19:22 ED course: EKG independently reviewed and interpreted by me, shows normal sinus rhythm, ec2 rate of 83, no acute ST segment elevations, intervals are nonactionable.. 19:42 ED course: Labs are nonactionable. Will transfer to psychiatric. . ec2 22:16 Differential Diagnosis altered mental status, sepsis, flu. ED course: EMS arrived to 4 take patient to the psychiatric hospital.. Patient refused transport to the psychiatric hospital. Patient openly admitted that he was malingering and came to the emergency room to get some sleep . Patient reported to me that he is not suicidal has no thoughts about harming himself or anybody else. And he strictly came to the emergency room to get some sleep and nothing else. At this time patient is requesting discharge from the emergency department. At this time I think patient is stable for discharge and we will release patient from the ER.. 07/01 18:14 Order name: Acetaminophen; Complete Time: 19:42 ec2 07/01 18:14 Order name: Basic Metabolic Panel; Complete Time: 19:42 ec2 07/01 18:14 Order name: CBC with Diff; Complete Time: 19:42 ec2 07/01 18:14 Order name: ETOH Level; Complete Time: 19:42 ec2 07/01 18:14 Order name: Hepatic Function; Complete Time: 19:42 ec2 07/01 18:14 Order name: PT-INR; Complete Time: 19:42 ec2 07/01 18:14 Order name: Ptt, Activated; Complete Time: 19:42 ec2 07/01 18:14 Order name: Salicylate; Complete Time: 19:42 ec2 07/01 18:14 Order name: Urine Drug Screen ec2 07/01 18:14 Order name: EKG; Complete Time: 18:15 ec2 07/01 18:14 Order name: EKG - Nurse/Tech; Complete Time: 19:21 ec2 07/01 18:14 Order name: IV Saline Lock; Complete Time: 18:55 ec2 07/01 18:14 Order name: Labs collected and sent; Complete Time: 18:55 ec2 07/01 18:14 Order name: Suicide Screening ([place]); Complete Time: 18:46 ec2 Administered Medications: No medications were administered Disposition Summary: 07/01/24 22:15 Discharge Ordered Notes: Location: Home sp4 Problem: new(07/01/24 22:15) sp4 Symptoms: have improved(07/01/24 22:15) sp4 Condition: Stable(07/01/24 22:15) sp4 Diagnosis - Anxiety disorder, unspecified sp4 Followup: sp4 - With: Private Physician - When: 7 - 10 days - Reason: Recheck today's complaints Discharge Instructions: - Discharge Summary Sheet sp4 - Managing Anxiety, Adult sp4 Forms: - Patient Portal Instructions sp4 Signatures: Dispatcher [employer] Liz Braden RN RN ap3 Pranay Stubbs MD MD sp4 Gideon Ellington MD MD ec2 Fady Hoffman RN RN aa10 Corrections: (The following items were deleted from the chart) 22:14 19:43 transferring doc ec2 sp4 22:14 19:43 Psych Facility ec2 sp4 22:14 19:43 Higher level of care ec2 sp4 22:14 19:43 Stable ec2 sp4 22:14 19:43 an ongoing problem ec2 sp4 22:14 19:43 are unchanged ec2 sp4 22:14 19:43 Suicidal ideations ec2 sp4 22:14 19:43 Other hallucinations ec2 sp4
--- NOTE | 2024-07-01 19:43 | ER ---
Nurse's Notes [facility] Name: Bryn Camargo Age: 48 yrs Sex: Male : 1975 Arrival Date: 07/01/2024 Time: 18:12 Bed 18 Private MD: Diagnosis: Anxiety disorder, unspecified Presentation: 07/01 18:39 Chief complaint: Patient states: he is hearing voices and seeing shadows. patient ap3 states the voices are saying "they will hurt me if I do not jump in front of a car and kill myself or cut my throat." patient reports recent discharge from psychiatric facility. patient states he would jump in front of a car to kill himself to get the voices to be quiet. Coronavirus screen: At this time, the client does not indicate any symptoms associated with coronavirus-19. Ebola Screen: No symptoms or risks identified at this time. Initial Sepsis Screen: Does the patient meet any 2 criteria? No. Patient's initial sepsis screen is negative. Does the patient have a suspected source of infection? No. Patient's initial sepsis screen is negative. Risk Assessment: Do you want to hurt yourself or someone else? Patient reports desire/thoughts of hurting themselves or someone else. Provider notified. Onset of symptoms was July 01, 2024. Care prior to arrival: None. 18:39 Method Of Arrival: EMS: [facility] ap3 18:39 Acuity: FLETCHER 2 ap3 Triage Assessment: 18:43 General: Appears in no apparent distress. Behavior is cooperative. Pain: Denies pain. ap3 Neuro: Level of Consciousness is awake, alert, obeys commands, Oriented to person, place, time. Cardiovascular: Patient's skin is warm and dry. Respiratory: Airway is patent Respiratory effort is even, unlabored, Respiratory pattern is regular, symmetrical. Historical: - Allergies: 18:42 No Known Allergies; ap3 - Home Meds: 22:36 Abilify Oral [Active]; Depakote Oral [Active]; Invega Sustenna intramuscular [Active]; aa10 Risperdal Oral [Active]; - PMHx: 18:42 Anxiety; Depression; Schizophrenia; Chronic obstructive lung disease; Diabetes ap3 mellitus; Bipolar disorder; - Immunization history:: Client reports having NOT received the Covid vaccine. - Infectious Disease History:: Denies. - Social history:: Smoking status: Patient reports the use of cigarette tobacco products, Patient uses street drugs, cocaine, Methamphetamine (Meth) cush. Screenin:44 Abuse screen: Denies threats or abuse. Nutritional screening: No deficits noted. ap3 Tuberculosis screening: No symptoms or risk factors identified. 20:00 [facility] ED Fall Risk Assessment (Adult) History of falling in the last 3 months, aa10 including since admission No falls in past 3 months (0 pts) Confusion or Disorientation No (0 pts) Intoxicated or Sedated No (0 pts) Impaired Gait No (0 pts) Mobility Assist Device Used No (0 pt) Altered Elimination No (0 pt) Score/Fall Risk Level. Abuse screen: Denies threats or abuse. Denies injuries from another. Nutritional screening: No deficits noted. Assessment: 19:30 General: Appears in no apparent distress. comfortable, Behavior is calm, cooperative, aa10 appropriate for age, quiet. 19:30 Pain: Denies pain. Neuro: No deficits noted. 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 Gait is steady, Speech is normal, Facial symmetry appears normal, Pupils are PERRLA, Intact. Cardiovascular: No deficits noted. Denies chest pain, diaphoresis, fatigue, lightheadedness, nausea, palpitations. Respiratory: No deficits noted. Airway is patent. GI: No deficits noted. Abdomen is non-distended. 20:22 Reassessment: nurse to nurse report called to [facility], report given to vahid alonso RN. 22:40 Reassessment: EMS at bedside to transfer patient to [facility], patient decline stating aa10 he does not want to go to [facility], because black Americans will kill him, patient did not verbalize his concern when he was informed he was being transferred to [facility],he signed his paper work without distress but decline to go when ems got here, he stated he would like to be discharged, he denied SI/HI at this point, patient was reviewed by MD who discharge patient, patient left the unit with all his belongings. Psych: 18:14 [place] Suicide Severity Screening: In the past month, have you wished you were ap3 or wished you could go to sleep and not wake up? Patient responds "yes." "In the past month, have you actually had any thoughts of killing yourself?" Patient responds "yes." "In your lifetime, have you ever done anything, started to do anything, or prepared to do anything to end your life?" Patient responds "yes." Patient reports suicidal intent within 3 past months. Subjective: Hallucinations are auditory, visual, Having thoughts of suicide. Plan for suicide is jump in front of a car. Objective: Patient is cooperative, Speech is normal. Interventions: Removed personal items and placed in bag. Patient placed in hospital gown. Searched person for dangerous items. Belonging list filled out. Safety Checks: Personal items have been removed. Door is open. Patient uses cocaine, Patient uses methamphetamines Patient uses tobacco. 22:38 Commitment: Patient will be a voluntary commitment. aa10 Vital Signs: 18:39 BP 144 / 81; Pulse 78; Resp 18; Temp 98.4(O); Pulse Ox 98% on R/A; Weight 72.57 kg; ap3 Height 5 ft. 4 in. ; 22:34 BP 140 / 80; Pulse 72; Resp 20; Pulse Ox 99% on R/A; aa10 18:39 Body Mass Index 27.46 (72.57 kg, 162.56 cm) ap3 ED Course: 18:13 Patient arrived in ED. ec2 18:13 Gideon Ellington MD is Attending Physician. ec2 18:38 Liz Greene, GARCIA is Primary Nurse. ap3 18:42 Triage completed. ap3 18:44 Arm band placed on right wrist. ap3 18:46 Patient has correct armband on for positive identification. Call light in reach. Side ap3 rails up X 1. Valuables See valuables checklist. Patient is placed in psych hold. 18:46 Provided Education on: need for paper scrubs and sitter. ap3 18:55 Inserted saline lock: 20 gauge in right antecubital area, using aseptic technique. rk3 Blood collected. Flushed with 10 mL NS. 19:13 Primary Nurse role handed off by Liz Greene, RN rv1 19:55 faxed pt clinical's to ([facility], [facility], [facility], [facility], [facility]).kmf 20:15 pt was accepted to [facility]. Accepting Dr. Dedrick I \\T\\2009. Accepting admin [facility] Maddison Favio \\T\\ 2009. [place] to transfer pt. 20:24 Urine Drug Screen Sent. aa10 22:00 pt is refusing to be transferred, notified . [facility] 22:14 Attending Physician role handed off by Gideon Ellington MD sp4 22:14 Pranay Stubbs MD is Attending Physician. sp4 22:37 No provider procedures requiring assistance completed. IV discontinued. aa10 Administered Medications: No medications were administered Medication: 22:35 VIS not applicable for this client. aa10 Outcome: 19:43 ER care complete, transfer ordered by . ec2 22:15 Discharge ordered by . sp4 22:38 Discharged to home ambulatory, aa10 22:38 Condition: good 22:38 Discharge instructions given to patient, Instructed on discharge instructions, Demonstrated understanding of instructions, 22:40 Patient left the ED. aa10 Signatures: Liz Greene, RN RN [email or web address] Juany Claros rv1 Pranay Stubbs MD MD sp4 Gideon Ellington MD MD ec2 Tammy Pinzon [facility] Fady Hoffman RN RN aa10 Denisa Martini rk3
[2024-07-01 20:44] LABS: Barbiturates NEGATIVE (NEGATIVE); Benzodiazepines NEGATIVE (NEGATIVE); Cocaine NEGATIVE (NEGATIVE); METHAMPHETAM NEGATIVE (NEGATIVE); Methadone NEGATIVE (NEGATIVE); Opiates NEGATIVE (NEGATIVE); Phencyclidine NEGATIVE (NEGATIVE); THC Cannibis NEGATIVE (NEGATIVE)
[2024-07-01 23:00] VITALS: TEMP 98.4
[2024-07-01 23:05] VITALS: BP 140/80; O2SAT 99
--- NOTE | 2024-07-03 08:41 | EKG ---
Test Date: 2024-07-01 Test Time: 19:15:47 Financial Supervisor: SAMI MEASUREMENT RESULTS: Intervals: Rate: 83 ME: 132 QRSD: 76 QT: 374 QTc: 439 [place]: P: 38 ME: 132 QRS: 66 T: 60 INTERPRETIVE STATEMENTS: Normal sinus rhythm Normal ECG Compared to ECG 04/27/2020 19:33:15 T-wave abnormality no longer present Electronically Signed On 07-03-24 08:36:46 CDT by Yao Mcclendon
== END 2024-07-01 22:40 | disposition home or self-care (01) ==
LOC: ER 18:12
DX: F41.9 Anxiety disorder, unspecified (principal)
CPT/HCPCS: 36415; 80048; 80076; 80143; 80179; 80307; 82077; 85025; 85610; 85730; 93005; 99284

== ENCOUNTER 2024-07-02 00:14 | Emergency (ER) | payer OTHER ==
--- NOTE | 2024-07-02 00:27 | EDPHYS ---
Physician Documentation [facility] Name: Bryn Camargo Age: 48 yrs Sex: Male : 1975 Arrival Date: 07/02/2024 Time: 00:14 Bed Waiting Private MD: ED Physician Pranay Stubbs HPI: 07/02 00:25 This 48 yrs old Black Male presents to ER via Unassigned with complaints of Suicidal sp4 Ideation, Hearing voices, seeing things. 20:58 48-year-old male comes into the emergency room for assessment. . sp4 21:03 Patient presented yesterday to the emergency department for hallucinations and suicidal sp4 ideation. Was evaluated in the emergency room and scheduled to be sent to [facility]. Yesterday at 2216 EMS arrived to take patient to the [facility]. . 21:05 Based on what patient tells me at 2216 patient was discharged from the emergency room sp4 on 07/01/2024. Patient comes back into the ER lobby and now states he is back at hearing hallucinations and he would like to be evaluated in the emergency room. . - Family history:: not pertinent. ROS: 21:06 Constitutional: Negative for fever, chills, and weight loss, for reported sp4 hallucinations 21:06 All other systems are negative, Exam: 21:06 Constitutional: This is a well developed, well nourished patient who is awake, alert, sp4 and in no acute distress. Head/Face: Normocephalic, atraumatic. Eyes: Pupils equal round and reactive to light, extra-ocular motions intact. Lids and lashes normal. Conjunctiva and sclera are not injected. Cornea within normal limits. Periorbital areas with no swelling, redness, or edema. Chest/axilla: Normal chest wall appearance and motion. Nontender with no deformity. No lesions are appreciated. Cardiovascular: Regular rate and rhythm Normal PMI, no JVD. No pulse deficits. Respiratory: Lungs have equal breath sounds bilaterally, clear to auscultation and percussion. No rales, rhonchi or wheezes noted. No increased work of breathing, no retractions or nasal flaring. Abdomen/GI: Soft, with normal bowel sounds. No distension or tympany. No guarding or rebound. No evidence of tenderness throughout. Back: No spinal tenderness. No costovertebral tenderness. Neuro: Awake and alert, GCS 15, oriented to person, place, time, and situation. Cranial nerves II-XII grossly intact. Motor strength 5/5 in all extremities. Sensory grossly intact. Psych: Awake, alert, with orientation to person, place and time. Behavior, mood, and affect are within normal limits Ania Coma Score: 21:06 Eye Response: spontaneous(4). Motor Response: obeys commands(6). Verbal Response: sp4 oriented(5). Total: 15. MDM: 00:27 Medical Screening Exam initiated sp4 21:06 Differential diagnosis: drug withdrawal. acute psychotic break, depression, psychosis sp4 secondary to non-compliance. Data reviewed: vital signs, nurses notes, old medical records. ED course: We have discussed with the patient that he just refused EMS transport to psychiatric hospital and openly admitted that he was looking for a bed to sleep. Just 2 hours before patient openly admitted to wa that he was not suicidal not homicidal and also he has requested discharge from the emergency department. At this time we informed the patient that he does not warrant another evaluation in the emergency department and no test will be ordered. patient was advised that he has no signs of emergent medical condition and he is stable for discharge from the emergency department. . Administered Medications: No medications were administered Disposition: 21:09 Chart complete. sp4 Disposition Summary: 07/02/24 00:27 Discharge Ordered Notes: Location: Home sp4 Problem: new sp4 Symptoms: have improved sp4 Condition: Fair sp4 Diagnosis - Homelessness, poor social situation, sp4 - Problem related to social environment, unspecified sp4 Followup: sp4 - With: Private Physician - When: As needed - Reason: Discharge Instructions: - Discharge Summary Sheet sp4 - Medical Screening Exam sp4 Forms: - Patient Portal Instructions sp4 Signatures: Pranay Stubbs MD MD sp4
--- NOTE | 2024-07-02 00:46 | ER ---
Nurse's Notes [facility] Name: Bryn Camargo Age: 48 yrs Sex: Male : 1975 Arrival Date: 07/02/2024 Time: 00:14 Bed Waiting Private MD: Diagnosis: Homelessness, poor social situation, ;Problem related to social environment, unspecified Presentation: 07/02 00:44 Chief complaint: Patient states: PT RECENTLY REFUSED GETTING TRANSFERRED WHEN EMS br2 ARRIVED FOR HIM, STATED HE WAS FEELING BETTER. NOW IS SAYING HE IS HEARING VOICES AGAIN AND WANTS HIS BED BACK. DR STUBBS SEEN PT IN [facility] AND HE HAS BEEN DISCHARGED. 00:44 Method Of Arrival: Ambulatory br2 - Family history:: not pertinent. [place] Coma Score: 21:06 Eye Response: spontaneous(4). Motor Response: obeys commands(6). Verbal Response: sp4 oriented(5). Total: 15. ED Course: 00:16 Patient arrived in ED. im 00:22 Pranay Stubbs MD is Attending Physician. sp4 Administered Medications: No medications were administered Outcome: 00:27 Discharge ordered by . sp4 00:46 Patient left the ED. br2 Signatures: Pranay Stubbs MD MD sp4 Maggy Charles Belinda RN RN br2
== END 2024-07-02 00:46 | disposition home or self-care (01) ==
LOC: ER 00:14
DX: R44.0 Auditory hallucinations (principal); Z59.00 Homelessness unspecified; Z60.9 Problem related to social environment, unspecified